=== PATIENT | female | born 2005 | race Caucasian/White ===

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

== ENCOUNTER 2024-01-28 10:20 | Outpatient (CLI) | payer MEDICAID, SELFPAY ==
[2024-01-28 11:10] VITALS: BP 114/69; PULSE 88; RESP 16; TEMP 36.5; O2SAT 98; BMI 27.4
[2024-01-28] MEDS: 0.9% Normal Saline (100mL Bag) 100 ML 15 ML IV (11:13)
[2024-01-28] MEDS: Sodium Ferric Gluconat/Sucrose 250 MG in 0.9% Normal Saline (250mL Bag) 250 ML 135 MG IV (11:13)
[2024-01-28] MEDS: 0.9% NaCl Peripheral Flush Adult/Peds IV (11:17)
[2024-01-28 14:04] VITALS: BP 123/69; PULSE 96; RESP 16; TEMP 36.4; O2SAT 97
== END 2024-01-28 23:59 | disposition home or self-care (01) ==
LOC: MEDOUTP 10:21
PROVIDERS: PCP Pediatrics; Referring Provider Nurse Practitioner; Visit Provider Nurse Practitioner
DX: O99.013 Anemia complicating pregnancy, third trimester (principal); D64.9 Anemia, unspecified; Z3A.00 Weeks of gestation of pregnancy not specified
CPT/HCPCS: 96365; 96366; J7050; A4216; J2916

== ENCOUNTER → 2024-02-01 | Outpatient (CLI) | payer MEDICAID, SELFPAY | END | disposition home or self-care (01) | LOC: LABSPEC 11:37 | PROVIDERS: PCP Pediatrics; Referring Provider Nurse Practitioner; Visit Provider Nurse Practitioner | DX: Z36.85 Encounter for antenatal screening for Streptococcus B (principal) | CPT/HCPCS: 87081 ==

== ENCOUNTER 2024-03-03 11:30 | Emergency (ER) | payer MEDICAID, SELFPAY ==
[2024-03-03 11:32] VITALS: BP 120/77; PULSE 94; RESP 16; TEMP 36.9; O2SAT 99
--- NOTE | 2024-03-03 12:33 | CT_ITS ---
STUDY: CT ABDOMEN AND PELVIS WITH CONTRAST REASON FOR EXAM: Female, 18 years old. Bloody discharge from site. RADIATION DOSAGE (If Supplied By Facility): CTDIvol = ( 11.6 ) mGy, DLP = ( 705.45 ) mGycm TECHNIQUE: Transaxial images were obtained from the dome of the diaphragm to the symphysis pubis without oral contrast. IV 100mL Isovue-370 was administered. Sagittal and coronal images were reconstructed. Individualized dose optimization techniques were used for this CT. COMPARISON: Comparison is made with prior study dated February 28, 2023. FINDINGS: The visualized lung bases are unremarkable. The visualized portions of the heart are within normal limits. Normal liver. Normal gallbladder and extrahepatic biliary system. Normal spleen. Normal pancreas. Normal bilateral adrenal glands. Normal right kidney. Normal left kidney. Normal visualized stomach. Normal small intestine. Normal colon. The appendix is visualized and appears normal. Normal abdominal aorta. Normal inferior vena cava. Normal retroperitoneum. Normal urinary bladder. Heterogeneous enlargement of the uterus in keeping with recent delivery. Postoperative changes are seen in the subcutaneous tissues underlying the lower anterior abdominal wall incision site. Tiny air bubbles are seen within the soft tissues in keeping with recent surgery. There is evidence of a 1.2 cm x 1.6 cm x 2.3 cm tiny fluid collection in the right side of the incision. There is also evidence of a increased markings in the subcutaneous fat. Normal osseous structures. CT/Abdomen/Pelvis W IV Cont ONLY IMPRESSION: Status post lower anterior abdominal wall with evidence of a tiny fluid collection along the right side of the incision with the overlying skin thickening and increased markings in the subcutaneous fat with tiny air bubbles. Heterogeneous enlargement of the uterus in keeping with recent delivery. Electronically Signed: Armando Nair MD at 13:23 EDT ,
--- NOTE | 2024-03-03 12:34 | EDS_ITS ---
HPI History of Present Illness Chief Complaint: Wound Check Informant: patient Narrative Narrative: Patient is a 18-year-old female with history of insulin-dependent diabetes mellitus who is 11 days status post presenting for bleeding and draining from incision site. Patient states she delivered at [facility] and followed with maternal medicine here at [facility]. She does not know the person who actually did her . She notes that she had a fever 2 days ago but had none since. She denies any abnormal vaginal bleeding (states is expected amount) or discharge. Denies any urinary symptoms. Denies any nausea, vomiting, lightheadedness or dizziness. Is doing a mixture of pumping and formula supplementation. Her significant other called 911 because of drainage from her incision site today. She knows she has some tenderness at the area as well. No other complaints or concerns at this time. [facility] Medical History POTS (postural orthostatic tachycardia syndrome) Type 1 diabetes mellitus Anxiety Home Medications ?Medication ?Instructions ?Recorded ?Last Taken ?Type aspirin 81 mg tablet,delayed 81 mg PO DAILY 12/09/23 Unknown History release glucagon 3 mg/actuation nasal 3 mg intranasal DAILY PRN 12/09/23 Unknown History spray (Baqsimi) hypoglycemia insulin lispro 100 unit/mL 0 - 50 unit subcut DAILY 12/09/23 Unknown History subcutaneous pen insulin lispro 100 unit/mL 0 - 67 unit subcut UD 12/09/23 Unknown History subcutaneous solution (Humalog U-100 Insulin) insulin pump cart,automated,BT 01/28/24 Unknown History (Omnipod 5 G6 Pods (Gen 5) subcutaneous cartridge) ferrous sulfate 325 mg (65 mg 325 mg PO DAILY 03/03/24 Unknown History iron) tablet (FeroSul) ibuprofen 600 mg tablet 600 mg PO Q6H PRN PRN fever or pain 03/03/24 Unknown History nifedipine 30 mg tablet,extended 60 mg PO QHS 03/03/24 Unknown History release 24 hr oxycodone 5 mg tablet 5 mg PO Q8H PRN pain 2 days #5 tabs 03/03/24 Unknown Rx sulfamethoxazole 800 1 tab PO BID 7 days #14 tabs 03/03/24 Unknown Rx mg-trimethoprim 160 mg tablet (Bactrim DS) Allergy/AdvReac Type Severity Reaction Status Date / Time No Known Allergies Allergy Verified 03/03/24 11:31 Social History Smoking Status: Never smoker substance use type: does not use ROS ROS ED Constitutional Constitutional ED: Reports fever(s); Denies chills Gastrointestinal Gastrointestinal: Reports abdominal pain; Denies nausea or vomiting Genitourinary Genitourinary ED: Denies dysuria or hematuria Musculoskeletal Musculoskeletal: Denies arthralgias or myalgias Integumentary Reports other Details: surgical wound with drainage - C Section Neurologic Neurologic: Denies headache(s) Hematologic/Lymphatic Hematologic/Lymphatic: Denies easy bleeding or easy bruising EXAM Physical Exam Const Vital Signs: 03/03/24 11:32 03/03/24 13:14 Temperature 98.5 F 98.2 F Temperature Source Oral Oral Pulse Rate 94 86 Respiratory Rate 16 18 Blood Pressure 120/77 118/77 Blood Pressure Mean 91 90 Pulse Ox 99 99 Oxygen Delivery Method Room Air Room Air Positive well nourished and well developed General Appearance ED: well developed and NAD HEENT Reports moist mucous membranes Eyes PERRL Neck supple Chest Wall inspection of chest normal Resp normal respiratory effort Cardio regular rate and regular rhythm GI non-distended GI Narrative: Fundus is below the level of the umbilicus. No significant tenderness of the upper abdomen or lower abdomen but does have tenderness to palpation of her pelvic area over her incision. Extremity normal to inspection General Extremety ED: Negative for edema General Extremity: Negative for edema Neuro oriented x3 Sensorium / Orientation: alert Motor Exam: Negative for general weakness Psych mental status grossly normal Skin Skin Narrative: Low transverse surgical incision consistent with recent . Patient has persistent serosanguineous drainage coming from the incision just to the left of midline. There are some mild associated tenderness to palpation and some mild erythema of the wound edges. Steri-Strips are still in place. No obvious dehiscence appreciated. No significant fluid collection/fluctuance appreciated elbow patient does have some suprapubic ecchymosis present. No associated lymphangitic streaking. MDM MDM MDM Narrative Medical decision making narrative: Patient evaluated for pain and drainage from her incision site. She is 11 days status post . She is increased risk of surgical site infection due to her history of type 1 diabetes mellitus. Differential includes surgical site infection, seroma and abscess. Will obtain basic blood work and a CT of the abdomen pelvis. Will culture the fluid. Patient is a very mild leukocytosis of 11.2 which is nonspecific given her recent surgery and childbirth. CMP is largely normal. CT of the abdomen pelvis is consistent with recent with a tiny fluid collection along the right side of the incision with overlying skin thickening and increased marking the subcutaneous fat and tiny air bubbles. Patient reevaluated continues to have pain with palpation of her incision site but does not have any further drainage. She initially requested Motrin and then requested something stronger for her pain. Is given oxycodone she states she recently ran out from after her C- section. I spoke with maternal medicine nurse practitioner, Christelle Morton, is quite familiar with the patient. She states she has appointment to see her this coming Thursday. She is agreeable with me starting the patient on Bactrim in case she does have infection however also discussed that this likely could just be a seroma that ruptured. Patient is given first dose of Bactrim in the emergency room. Will be placed on a course of Bactrim to cover for MRSA. Given return precautions such as developing purulent drainage, fever or worsening pain. Will be given a short course of oxycodone for pain control. Patient significant other agreeable with plan of care. Discussed the importance of keeping up her nutrition and fluid intake given that she is and breast-feeding. While in the ER patient did start feeling her blood sugars dropping. Her continuous glucose monitor read 60. Patient was given apple juice and then food which she tolerated well and had improvement of her symptoms and blood sugar. Lab Data Attestation: I reviewed the patient's lab results. Labs: Laboratory Results - last 24 hr 03/03/24 11:40 WBC 11.2 H RBC 4.22 Hgb 10.6 L Hct 36.1 L MCV 85.5 MCH 25.1 L MCHC 29.4 L RDW Std Deviation 72.5 H RDW Coeff of Elizabeth 23.6 H Plt Count 328 MPV 11.7 Immature Gran % (Auto) 3.300 H Neut % (Auto) 75.3 H Lymph % (Auto) 11.2 L Swisher % (Auto) 8.6 Eos % (Auto) 1.2 Baso % (Auto) 0.4 Absolute Neuts (auto) 8.5 H Absolute Lymphs (auto) 1.26 Nucleated RBC % 0 Differential Comment SCANNED Platelet Estimate ADEQUATE Plt Morphology Comment LARGE Anisocytosis 3+ Microcytosis 1+ Macrocytosis 1+ Sodium 139 Potassium 3.4 L Chloride 108 H Carbon Dioxide 23.0 Anion Gap 8 BUN 17 Creatinine 0.49 L Est GFR (MDRD) Af Amer 208 Est GFR (MDRD) Non-Af 172 BUN/Creatinine Ratio 34.6 H Glucose 102 Calcium 9.9 Total Bilirubin 0.80 AST 20 ALT 21 Alkaline Phosphatase 149 H Total Protein 8.0 Albumin 2.8 L Globulin 5.2 H Albumin/Globulin Ratio 0.5 L Radiography Diagnostic Testing: Clinical Impression(s) from Imaging Studies Abdomen/Pelvis CT 03/03/24 12:33 IMPRESSION: Status post lower anterior abdominal wall with evidence of a tiny fluid collection along the right side of the incision with the overlying skin thickening and increased markings in the subcutaneous fat with tiny air bubbles. Heterogeneous enlargement of the uterus in keeping with recent delivery. Electronically Signed: Armando Nair MD at 13:23 EDT , Discharge Plan Triage Chief Complaint: Wound Check ED Provider: Anjelica Smith Dx/Rx/DC Orders Clinical Impression: Seroma after procedure, Postoperative abdominal pain Instructions: ED Post Op Wound Check, General, ED Seroma, Postsurgical Prescriptions: New sulfamethoxazole-trimethoprim [Bactrim DS] 800-160 mg tablet 1 tab PO BID 7 Days Qty: 14 0RF oxycodone 5 mg tablet 5 mg PO Q8H PRN (Reason: pain) 2 Days Qty: 5 0RF No Action ferrous sulfate [FeroSul] 325 mg (65 mg iron) tablet 325 mg PO DAILY ibuprofen 600 mg tablet 600 mg PO Q6H PRN PRN (Reason: fever or pain) nifedipine 30 mg tablet extended release 24hr 60 mg PO QHS aspirin 81 mg tablet,delayed release (DR/EC) 81 mg PO DAILY Baqsimi 3 mg/actuation spray,non-aerosol 3 mg INTRANASAL DAILY PRN (Reason: hypoglycemia) Patient Comments: [NO ORIGINAL SIG] insulin lispro [Humalog U-100 Insulin] 100 unit/mL solution 0 - 67 unit subcut UD insulin lispro 100 unit/mL insulin pen 0 - 50 unit subcut DAILY (DME) Omnipod 5 G6 Pods (Gen 5) Cartridge subcut Q3D Primary Care Provider: Dian Velez Referrals: Dian Velez MD [Primary Care Provider] - TAB SIMON NP-C [Non-Staff] - Keep Ale appointment Activity Restrictions/Additional Instructions: If you develop fevers again, have purulent drainage (puslike) or have worsening pain please return the emergency room. Print Language: Sudanese Disposition Disposition: Home, Self Care
[2024-03-03 12:49] LABS: Absolute Lymphocyte Count 1.26 X10^3/uL (0.83-4.51); Absolute Neutrophil Count 8.5 X10^3/uL (2.0-7.7); Basophil# 0.04 X10^3/uL; Basophil% 0.4 % (0-1); Eosinophil# 0.13 X10^3/uL; Eosinophils% 1.2 % (0-5); Hematocrit 36.1 % (37-47); Hemoglobin 10.6 g/dL (12.0-15.0); Lymphocyte # 1.26 X10^3/ul (0.83-4.51); Lymphocyte % 11.2 % (19-41); Mean Corp Hgb Conc 29.4 g/dL (32-36); Mean Corpuscular Hgb 25.1 pg (27.0-32.0); Mean Corpuscular Volume 85.5 fL (81-99); Mean Platelet Vol. 11.7 fl (6.2-12.0); Monocyte# 0.96 X10^3/uL; Monocyte% 8.6 % (0-10); NRBC Flagged by Analyzer 0 % (0-5); Neutrophil # 8.46 X10^3/uL (2.7-7.7); Neutrophil % 75.3 % (47-70); POSITIVE MORPHOLOGY YES; Platelet Count 328 K/mm3 (150-450); RBC Distribution Width CV 23.6 % (11.6-14.6); RBC Distribution Width SD 72.5 fl (35.1-43.9); Red Blood Count 4.22 M/mm3 (4.2-5.4); White Blood Count 11.2 K/mm3 (4.4-11.0)
[2024-03-03 12:53] LABS: ALB/GLOB Ratio 0.5 RATIO (0.9-2.4); AST(SGOT) 20 U/L (15-37); Alanine Aminotransfer ALT/SGPT 21 U/L (13-56); Albumin, Serum 2.8 g/dL (3.2-5.0); Alkaline Phosphatase 149 U/L (45-117); Anion Gap 8 (5-15); BUN 17 mg/dL (7-18); BUN/Creat Ratio 34.6 RATIO (10-20); Calcium,Total 9.9 mg/dL (8.5-10.1); Chloride 108 mmol/L (98-107); Creatinine, Serum 0.49 mg/dL (0.55-1.02); EST Glomerular Filtration Rate 172 mL/min (>60); Est Glom Filt Rate - Afr Amer 208 mL/min (>60); Globulin 5.2 g/dL (2.2-4.2); Glucose 102 mg/dL (74-106); Potassium 3.4 mmol/L (3.5-5.1); Sodium Level 139 mmol/L (136-145)
[2024-03-03 13:01] LABS: Differential Indicated SCAN CRITERIA MET
[2024-03-03 13:14] VITALS: BP 118/77; PULSE 86; RESP 18; TEMP 36.8; O2SAT 99
[2024-03-03] MEDS: Ibuprofen 600 MG Tablet PO (13:35)
[2024-03-03 14:23] LABS: Anisocytosis 3+; Differential Comment SCANNED; Platelet Estimate ADEQUATE (ADEQ)
[2024-03-03 14:24] LABS: Macrocytosis 1+; Microcytosis 1+; Platelet Morphology LARGE
--- NOTE | 2024-03-03 14:27 | ED.RN ---
meal tray from dietary given to patient.
[2024-03-03] MEDS: Smz/Tmp Ds Tablet 1 TABLET PO (14:46)
[2024-03-03] MEDS: oxyCODONE 5 MG Tablet PO (14:50)
--- NOTE | 2024-03-03 15:09 | ED.RN ---
dressing changed to surgical incision and pt sent with extra supplies
[2024-03-03 15:10] VITALS: BP 118/82; PULSE 79; RESP 16; TEMP 36.8; O2SAT 98
== END 2024-03-03 15:26 | disposition home or self-care (01) ==
PROVIDERS: Emergency Provider Emergency Medicine; PCP Pediatrics; Referring Provider Emergency Medicine; Visit Provider Emergency Medicine
DX: L76.32 Postprocedural hematoma of skin and subcutaneous tissue following other procedure (principal); E10.9 Type 1 diabetes mellitus without complications; G89.18 Other acute postprocedural pain; R10.9 Unspecified abdominal pain; Z79.82 Long term (current) use of aspirin
CPT/HCPCS: 74177; 80053; 85025; 87070; 87077; 87186; 87205; 99284; Q9967; A4216

== ENCOUNTER 2024-03-05 11:14 | Emergency (ER) | payer MEDICAID, SELFPAY ==
[2024-03-05 11:15] VITALS: BP 115/76; PULSE 105; RESP 16; TEMP 36.1; O2SAT 98; BMI 24.4
--- NOTE | 2024-03-05 11:32 | EX.ED.DYSGE1 ---
HPI History of Present Illness Chief Complaint: Wound Check Informant: patient and spouse/S.O. Onset/Context/Timing Onset: Days Context: Gradual Onset Timing: Continuous Current Severity: Mild Maximum Severity: Mild Narrative Narrative: 18-year-old female status post at [facility] 13 days ago. This was her first and . She has had some wound separation and a seroma. Was seen in the emergency department 2 days ago on started on Bactrim. She is appointment to see maternal- medicine physicians this coming week. Prior similar symptoms: Yes Recent Illness/Hospitalization: Yes [facility] Medical History POTS (postural orthostatic tachycardia syndrome) Type 1 diabetes mellitus Anxiety Home Medications ?Medication ?Instructions ?Recorded ?Last Taken ?Type aspirin 81 mg tablet,delayed 81 mg PO DAILY 12/09/23 Unknown History release glucagon 3 mg/actuation nasal 3 mg intranasal DAILY PRN 12/09/23 Unknown History spray (Baqsimi) hypoglycemia insulin lispro 100 unit/mL 0 - 50 unit subcut DAILY 12/09/23 Unknown History subcutaneous pen insulin lispro 100 unit/mL 0 - 67 unit subcut UD 12/09/23 Unknown History subcutaneous solution (Humalog U-100 Insulin) insulin pump cart,automated,BT 01/28/24 Unknown History (Omnipod 5 G6 Pods (Gen 5) subcutaneous cartridge) ferrous sulfate 325 mg (65 mg 325 mg PO DAILY 03/03/24 Unknown History iron) tablet (FeroSul) ibuprofen 600 mg tablet 600 mg PO Q6H PRN PRN fever or pain 03/03/24 Unknown History nifedipine 30 mg tablet,extended 60 mg PO QHS 03/03/24 Unknown History release 24 hr oxycodone 5 mg tablet 5 mg PO Q8H PRN pain 2 days #5 tabs 03/03/24 Unknown Rx sulfamethoxazole 800 1 tab PO BID 7 days #14 tabs 03/03/24 Unknown Rx mg-trimethoprim 160 mg tablet (Bactrim DS) Allergy/AdvReac Type Severity Reaction Status Date / Time No Known Allergies Allergy Verified 03/03/24 11:31 Social History Smoking Status: Never smoker substance use type: does not use ROS ROS ED ROS Narrative Denies any recent illness. Constitutional Constitutional ED: Denies fever(s) Eyes Eyes: Denies blurry vision ENT ENT ED: Denies ear pain Cardiovascular Cardiovascular: Denies chest pain Respiratory/Chest Respiratory/Chest: Denies cough Gastrointestinal Gastrointestinal: Reports other Details: Pain at the incision site. ; Denies abdominal pain Genitourinary Genitourinary ED: Denies dysuria Musculoskeletal Musculoskeletal: Denies arthralgias Integumentary Denies abscess Neurologic Neurologic: Denies headache(s) Psychiatric Psychiatric: Denies anxiety Endocrine Endocrinology: Denies cold intolerance Hematologic/Lymphatic Hematologic/Lymphatic: Reports none Allergic/Immunologic Allergic/Immunologic ED: Denies mouth swelling or tongue swelling EXAM Physical Exam Narrative Exam Narrative: Well-appearing 18-year-old female. Vital signs are stable afebrile. H EENT exam unremarkable. Lungs clear. Heart regular rhythm. Abdomen is soft. She has a low-lying horizontal Pfannenstiel incision. There is minimal drainage currently. It is serous. Currently there is no bleeding. There is no cellulitis. There is no pus. She has normal tenderness around the wound. She has a minor wound separation on the left hand third of the wound. Steri-Strips are in place. Moving all 4 extremities. Nontender no edema. She is awake and alert. Const Vital Signs: 03/05/24 11:15 Temperature 96.9 F L Temperature Source Temporal Pulse Rate 105 H Respiratory Rate 16 Blood Pressure 115/76 Blood Pressure Mean 89 Pulse Ox 98 Oxygen Delivery Method Room Air Positive well nourished and well developed; Negative for obese, cachectic, contractures or unkempt General Appearance ED: well developed and NAD; Negative for unkempt, cachectic, contractures, cyanotic or diaphoretic Nutritional Appearance: Negative for cachectic or obese HEENT Reports moist mucous membranes Negative for trauma or tenderness Eyes PERRL and EOMs intact bilaterally General Eye ED: Negative for pale conjunctiva or scleral icterus Neck no lymphadenopathy, supple and no JVD General: Negative for tenderness Chest Wall inspection of chest normal and palpation of chest normal Resp normal respiratory effort and clear to auscultation bilaterally Cardio regular rate, regular rhythm, S1 normal heart sound, S2 normal heart sound and no murmurs GI normal to inspection, nondistended, normoactive bowel sounds, non-distended and no masses; Negative for non-tender GI Narrative: Tenderness along the site normal postop. Minimal wound separation on the left-hand side. No cellulitis. No pus. Auscultation: normoactive bowel sounds Palpation: soft and tender; Negative for guarding, mass or rebound tenderness present Back/Spine no CVA tenderness Extremity normal to inspection General Extremety ED: Negative for edema or tenderness General Extremity: Negative for edema Neuro oriented x3 and CN's II-XII intact bilaterally Sensorium / Orientation: alert; Negative for orientation impaired, lethargic or stuporous Motor Exam: strength 5/5 throughout Psych mental status grossly normal Appearance: Negative for unkempt Attitude: No agitated Mood & Affect: Negative for depressed or tearful Skin no rashes or lesions noted and skin turgor normal Skin Narrative: Surgical wound healing appropriately. Minor wound separation on the left-hand side. Rashes: No rashes noted MDM MDM MDM Narrative Medical decision making narrative: 89-year-old female status post 13 days ago. Developed a seroma. Minor wound separation. Wound does not look infected. History & Record Review Discussion w/independent historian: Patient and Family Additional record(s) reviewed:: Prior inpatient record, Prior outpatient record and Prior ED visit Discharge Plan Triage Chief Complaint: Wound Check ED Provider: Jd Barrios Dx/Rx/DC Orders Clinical Impression: Encounter for post surgical wound check, Separation of wound with drainage, Instructions: ED Post Op Wound Check, General Prescriptions: No Action ferrous sulfate [FeroSul] 325 mg (65 mg iron) tablet 325 mg PO DAILY ibuprofen 600 mg tablet 600 mg PO Q6H PRN PRN (Reason: fever or pain) nifedipine 30 mg tablet extended release 24hr 60 mg PO QHS sulfamethoxazole-trimethoprim [Bactrim DS] 800-160 mg tablet 1 tab PO BID 7 Days Qty: 14 0RF oxycodone 5 mg tablet 5 mg PO Q8H PRN (Reason: pain) 2 Days Qty: 5 0RF aspirin 81 mg tablet,delayed release (DR/EC) 81 mg PO DAILY Baqsimi 3 mg/actuation spray,non-aerosol 3 mg INTRANASAL DAILY PRN (Reason: hypoglycemia) Patient Comments: [NO ORIGINAL SIG] insulin lispro [Humalog U-100 Insulin] 100 unit/mL solution 0 - 67 unit subcut UD insulin lispro 100 unit/mL insulin pen 0 - 50 unit subcut DAILY (DME) Omnipod 5 G6 Pods (Gen 5) Cartridge subcut Q3D Primary Care Provider: Dian Velez Referrals: Dian Velez MD [Primary Care Provider] - Activity Restrictions/Additional Instructions: Follow-up with your [facility] physicians with your scheduled appointment this week. Keep the area dry and clean. Shower do not bathe and let it soak in dirty water. Clean daily with soap and water or peroxide and water. Dry thoroughly. Return if fever or significant redness around the site. Currently looks good. You have a wound separation on the left-hand side. That should heal. The drainage should resolve as the seroma is resolving. Print Language: Congolese Disposition Disposition: Home, Self Care
[2024-03-05 11:34] VITALS: BP 118/84; PULSE 81; RESP 17; TEMP 36.5; O2SAT 98
== END 2024-03-05 11:42 | disposition home or self-care (01) ==
PROVIDERS: Emergency Provider Emergency Medicine; PCP Pediatrics; Visit Provider Emergency Medicine
DX: Z48.01 Encounter for change or removal of surgical wound dressing (principal); E10.9 Type 1 diabetes mellitus without complications; Z51.89 Encounter for other specified aftercare
CPT/HCPCS: 99282

== ENCOUNTER 2024-06-24 18:33 | Emergency (ER) | payer MEDICAID, SELFPAY ==
[2024-06-24 18:34] VITALS: BP 125/88; PULSE 122; RESP 16; TEMP 36.7; O2SAT 100; BMI 25.1
[2024-06-24 18:37] VITALS: BP 125/88; PULSE 122; RESP 16; TEMP 36.7; O2SAT 98
--- NOTE | 2024-06-24 19:22 | EX.ED.DYSGE1 ---
HPI <SYDNEE Worthington - Last Filed: 06/24/24 21:28> History of Present Illness Chief Complaint: Cold Sx Narrative Narrative: Patient is a 18-year-old female with no significant medical history presents to the emergency department with complaints of cough, congestion some with sore throat, nausea and vomitings been ongoing for the last 2 days. Patient states that her child at home had similar symptoms. Patient today, she felt more weak, dizzy and is here for evaluation. Patient does have a cough that is dry. PFSH <SYDNEE Worthington - Last Filed: 06/24/24 21:28> [facility] Medical History POTS (postural orthostatic tachycardia syndrome) Type 1 diabetes mellitus Anxiety Home Medications ?Medication ?Instructions ?Recorded ?Last Taken ?Type aspirin 81 mg tablet,delayed 81 mg PO DAILY 12/09/23 Unknown History release glucagon 3 mg/actuation nasal 3 mg intranasal DAILY PRN 12/09/23 Unknown History spray (Baqsimi) hypoglycemia insulin lispro 100 unit/mL 0 - 50 unit subcut DAILY 12/09/23 Unknown History subcutaneous pen insulin lispro 100 unit/mL 0 - 67 unit subcut UD 12/09/23 Unknown History subcutaneous solution (Humalog U-100 Insulin) insulin pump cart,automated,BT 01/28/24 Unknown History (Omnipod 5 G6 Pods (Gen 5) subcutaneous cartridge) ferrous sulfate 325 mg (65 mg 325 mg PO DAILY 03/03/24 Unknown History iron) tablet (FeroSul) ibuprofen 600 mg tablet 600 mg PO Q6H PRN PRN fever or pain 03/03/24 Unknown History nifedipine 30 mg tablet,extended 60 mg PO QHS 03/03/24 Unknown History release 24 hr oxycodone 5 mg tablet 5 mg PO Q8H PRN pain 2 days #5 tabs 03/03/24 Unknown Rx sulfamethoxazole 800 1 tab PO BID 7 days #14 tabs 03/03/24 Unknown Rx mg-trimethoprim 160 mg tablet (Bactrim DS) ondansetron 4 mg disintegrating 4 mg PO Q8H PRN PRN Nausea #10 tabs 06/24/24 Unknown Rx tablet Allergy/AdvReac Type Severity Reaction Status Date / Time ketorolac (From Toradol) Allergy Mild Hives Verified 06/24/24 20:42 Social History Smoking Status: Current some day smoker tobacco type: e-cigarettes substance use type: does not use ROS <SYDNEE Worthington - Last Filed: 06/24/24 21:28> ROS ED ROS Narrative Constitutional: Negative for weight loss, weakness. Positive fever and chills Eyes: Negative for vision loss, vision change, double vision ENT: Negative for any sore throat, ear pain, congestion Cardiovascular: Negative for any chest pain, tightness, palpitations Respiratory: Negative for any sputum production, hemoptysis, dyspnea, dyspnea on exertion, orthopnea. Positive for cough Gastrointestinal: Negative for any abdominal pain, diarrhea, constipation, blood in stool, blood in vomit. Positive for nausea and vomiting : Negative for any urinary frequency, dysuria, retention, blood in urine Muscle skeletal: Negative for any neck pain, back pain Neurological: Negative for any syncope, dizziness. Positive headache Skin: Negative for any rashes, itching, abrasions, lacerations Psychiatric: Negative for any depression, anxiety, stress, suicidal ideation, homicidal ideation Hematologic: Negative for any excessive bruising, easy bleeding EXAM <SYDNEE Worthington - Last Filed: 06/24/24 21:28> Physical Exam Narrative Exam Narrative: Vital signs reviewed. HEET: Head normocephalic atraumatic, TMs clear bilaterally. Posterior pharynx is clear, moist mucous membranes. Nares clear bilaterally. Neck: Supple with no lymphadenopathy or tenderness. No signs of meningismus. Cardiac: Regular rate and rhythm no murmurs gallops or rubs, equal peripheral pulses bilaterally. Respiratory: Tachycardic rate,. No chest tenderness. Abdomen: Soft, nontender, nondistended. No abdominal bruit or pulsatile masses. No hepatosplenomegaly Extremities: No peripheral edema, no signs of gross trauma or deformity. Active full range of motion of all extremities. Neuro: Cranial nerves II through XII intact, no focal neurological deficits. Skin: Clean dry and intact with no rash, purpura, petechiae, vesicles or pustules. Backs/flank: No CVA tenderness, no midline spinal tenderness, no deformity. Psych: Normal mood and affect. No SI, HI or acute psychosis. Const Vital Signs: 06/24/24 18:34 06/24/24 18:34 06/24/24 18:37 Temperature 98.1 F 98.1 F Temperature Source Oral Oral Pulse Rate 122 H 122 H Respiratory Rate 16 16 Respiratory Effort Normal Non-Labored Respiratory Pattern Normal Blood Pressure 125/88 H 125/88 H Blood Pressure Mean 100 100 Pulse Ox 100 98 Oxygen Delivery Method Room Air Room Air 06/24/24 20:34 06/24/24 21:39 Temperature 98 F Temperature Source Pulse Rate 104 H 89 Respiratory Rate 18 17 Respiratory Effort Respiratory Pattern Blood Pressure 121/74 H Blood Pressure Mean 89 Pulse Ox 99 Oxygen Delivery Method Positive well nourished and well developed General Appearance ED: well developed <Dr. Alvarez Nguyen DO - Last Filed: 06/25/24 01:27> Physical Exam Const Vital Signs: 06/24/24 18:34 06/24/24 18:34 06/24/24 18:37 Temperature 98.1 F 98.1 F Temperature Source Oral Oral Pulse Rate 122 H 122 H Respiratory Rate 16 16 Respiratory Effort Normal Non-Labored Respiratory Pattern Normal Blood Pressure 125/88 H 125/88 H Blood Pressure Mean 100 100 Pulse Ox 100 98 Oxygen Delivery Method Room Air Room Air 06/24/24 20:34 06/24/24 21:39 Temperature 98 F Temperature Source Pulse Rate 104 H 89 Respiratory Rate 18 17 Respiratory Effort Respiratory Pattern Blood Pressure 121/74 H Blood Pressure Mean 89 Pulse Ox 99 Oxygen Delivery Method MDM <SYDNEE Worthington - Last Filed: 06/24/24 21:28> MDM Radiography Diagnostic Testing: Clinical Impression(s) from Imaging Studies Chest X-Ray 06/24/24 20:25 IMPRESSION: No radiographic evidence of acute cardiopulmonary disease. Electronically Signed: Peterson Lewis MD at 21:58 EST , Treatment and Re-Evaluation :: Differential diagnosis includes however is not limited to: COVID-19, influenza, RSV, strep throat, community-acquired pneumonia MDM presenting to the [facility] apartment for complaints of cough, congestion, nausea and vomiting. Patient on my examination does not appear dry. Patient will be given Tylenol, or IM Toradol, Zofran. Patient be given a chest x-ray, COVID-19 influenza, RSV, rapid strep swab. Patient's chest x-ray was unremarkable. Patient's COVID-19 influenza RSV as well as strep was negative. Patient responded well to medications here. At this time, patient's vital signs are stable she will be diagnosed with a viral syndrome. She will be given Zofran for home. She instructed to maintain her hydration, advance her diet as tolerated. She was given strict return precaution. Stable for discharge <Dr. Alvarez Nguyen, DO - Last Filed: 06/25/24 01:27> MDM Radiography Diagnostic Testing: Clinical Impression(s) from Imaging Studies Chest X-Ray 06/24/24 20:25 IMPRESSION: No radiographic evidence of acute cardiopulmonary disease. Electronically Signed: Peterson Lewis MD at 21:58 EST , Treatment and Re-Evaluation :: Differential diagnosis includes however is not limited to: COVID-19, influenza, RSV, strep throat, community-acquired pneumonia MDM presenting to the [facility] apartment for complaints of cough, congestion, nausea and vomiting. Patient on my examination does not appear dry. Patient will be given Tylenol, or IM Toradol, Zofran. Patient be given a chest x-ray, COVID-19 influenza, RSV, rapid strep swab. Patient's chest x-ray was unremarkable. Patient's COVID-19 influenza RSV as well as strep was negative. Patient responded well to medications here. At this time, patient's vital signs are stable (heart rate improved from 122-89 without intervention) she will be diagnosed with a viral syndrome. She will be given Zofran for home. She instructed to maintain her hydration, advance her diet as tolerated. She was given strict return precaution. Stable for discharge ED attending note: I evaluated the patient in conjunction with the [facility]. I agree with his/her statements and above findings. I have personally performed a face to face assessment of the patient and have reviewed the [facility] Note. I performed a substantive portion of the visit including all aspects of the following. I personally saw the patient performed chart review, physical exam, reviewed labs, imaging (if obtained), and formulated a treatment and management plan. This note was generated with [email or web address] dictation software. It may contain incorrect words, spelling, and punctuation that were not noted in review of the chart prior to signing. Discharge Plan Triage Chief Complaint: Cold Sx Other Complaint: Hyperglycemia ED Midlevel Provider: Alverto Madrigal ED Provider: Alvarez Nguyen Dx/Rx/DC Orders Clinical Impression: Viral syndrome Instructions: ED Viral Syndrome (Adult) Prescriptions: New ondansetron 4 mg tablet,disintegrating 4 mg PO Q8H PRN PRN (Reason: Nausea) Qty: 10 0RF No Action ferrous sulfate [FeroSul] 325 mg (65 mg iron) tablet 325 mg PO DAILY ibuprofen 600 mg tablet 600 mg PO Q6H PRN PRN (Reason: fever or pain) nifedipine 30 mg tablet extended release 24hr 60 mg PO QHS sulfamethoxazole-trimethoprim [Bactrim DS] 800-160 mg tablet 1 tab PO BID 7 Days Qty: 14 0RF oxycodone 5 mg tablet 5 mg PO Q8H PRN (Reason: pain) 2 Days Qty: 5 0RF aspirin 81 mg tablet,delayed release (DR/EC) 81 mg PO DAILY Baqsimi 3 mg/actuation spray,non-aerosol 3 mg INTRANASAL DAILY PRN (Reason: hypoglycemia) Patient Comments: [NO ORIGINAL SIG] insulin lispro [Humalog U-100 Insulin] 100 unit/mL solution 0 - 67 unit subcut UD insulin lispro 100 unit/mL insulin pen 0 - 50 unit subcut DAILY (DME) Omnipod 5 G6 Pods (Gen 5) Cartridge subcut Q3D Primary Care Provider: Dian Velez Referrals: Dian Velez MD [Primary Care Provider] - Activity Restrictions/Additional Instructions: Please advance her diet as tolerated Print Language: Citizen [place] Disposition Disposition: Home, Self Care Discharge Date/Time: 06/24/24 21:40
[2024-06-24] MEDS: Ketorolac 15 MG/ML Vial IM (20:02)
[2024-06-24] MEDS: Ondansetron ODT 4 MG Tablet 8 MG PO (20:03)
[2024-06-24] MEDS: Acetaminophen 500 MG Tablet 1000 MG PO (20:03)
[2024-06-24] MEDS: DiphenhydrAMINE 25 MG Capsule 50 MG PO (20:21)
--- NOTE | 2024-06-24 20:25 | RAD_ITS ---
EXAM: XR CHEST, 2 VIEWS CLINICAL INDICATION: cough TECHNIQUE: Frontal and lateral views of the chest. COMPARISON: 01/21/23 FINDINGS: LUNGS AND PLEURAL SPACES: Unremarkable. No consolidation or edema. No pneumothorax. No effusion. HEART: Unremarkable. Cardiac silhouette not enlarged. MEDIASTINUM: Central airways and mediastinal contour are unremarkable. BONES/JOINTS: Unremarkable. No acute fracture. SOFT TISSUES: Unremarkable. RAD/Chest PA and Lateral IMPRESSION: No radiographic evidence of acute cardiopulmonary disease. Electronically Signed: Peterson Lewis MD at 21:58 EST ,
[2024-06-24 20:34] VITALS: PULSE 104; RESP 18
[2024-06-24 21:39] VITALS: BP 121/74; PULSE 89; RESP 17; TEMP 36.6; O2SAT 99
== END 2024-06-24 21:40 | disposition home or self-care (01) ==
PROVIDERS: Emergency Provider Emergency Medicine; PCP Pediatrics; Visit Provider Emergency Medicine
DX: B34.9 Viral infection, unspecified (principal); E10.65 Type 1 diabetes mellitus with hyperglycemia; Z79.4 Long term (current) use of insulin; R09.81 Nasal congestion; R05.9 Cough, unspecified; R11.2 Nausea with vomiting, unspecified; G90.A Postural orthostatic tachycardia syndrome [POTS]; F17.210 Nicotine dependence, cigarettes, uncomplicated; Z79.82 Long term (current) use of aspirin; Z79.899 Other long term (current) drug therapy
CPT/HCPCS: 71046; 87631; 87651; 96372; 99283

== ENCOUNTER 2024-07-03 16:53 | Emergency (ER) | payer MEDICAID, SELFPAY ==
[2024-07-03 16:55] VITALS: BP 120/72; PULSE 95; RESP 16; TEMP 36.7; O2SAT 100; BMI 25.0
--- NOTE | 2024-07-03 17:22 | EDS_ITS ---
HPI <SYDNEE Worthington - Last Filed: 07/03/24 21:13> History of Present Illness Chief Complaint: Abd Pain Narrative Narrative: Patient is a 18-year-old female with history of type 1 diabetes presenting to the emergency department with complaints of epigastric pain nausea that is been ongoing for greater than 1 week. Patient states that she feels a gnawing sensation in her stomach that is worse in the morning and when she was the bed, she also has increasing pain when she is eating. She states she has tried Tums with no relief. She has not seen a specialist for this. She denies any specific vomiting however does have nausea. Patient dates she has diarrhea however this is chronic. PFSH <SYDNEE Worthington - Last Filed: 07/03/24 21:13> PFSH Medical History POTS (postural orthostatic tachycardia syndrome) Type 1 diabetes mellitus Anxiety Home Medications ?Medication ?Instructions ?Recorded ?Last Taken ?Type insulin lispro 100 unit/mL 0 - 50 unit subcut DAILY 12/09/23 Unknown History subcutaneous pen insulin lispro 100 unit/mL 0 - 67 unit subcut UD 12/09/23 Unknown History subcutaneous solution (Humalog U-100 Insulin) insulin pump cart,automated,BT 01/28/24 Unknown History (Omnipod 5 G6 Pods (Gen 5) subcutaneous cartridge) nifedipine 30 mg tablet,extended 60 mg PO QHS 03/03/24 Unknown History release 24 hr drospirenone 3 mg-ethinyl 1 tab PO DAILY 07/03/24 Unknown History estradiol 0.03 mg tablet omeprazole 40 mg capsule,delayed 40 mg PO DAILY #30 caps 07/03/24 Unknown Rx release sucralfate 1 gram tablet (Carafate) 1 g PO TID #21 tabs 07/03/24 Unknown Rx Allergy/AdvReac Type Severity Reaction Status Date / Time ketorolac (From Toradol) Allergy Mild Hives Verified 07/03/24 16:55 Social History Smoking Status: Current some day smoker tobacco type: e-cigarettes substance use type: does not use ROS <SYDNEE Worthington - Last Filed: 07/03/24 21:13> ROS ED ROS Narrative Constitutional: Negative for fever, chills, weight loss, weakness Eyes: Negative for vision loss, vision change, double vision ENT: Negative for any sore throat, ear pain, congestion Cardiovascular: Negative for any chest pain, tightness, palpitations Respiratory: Negative for any cough, sputum production, hemoptysis, dyspnea, dyspnea on exertion, orthopnea Gastrointestinal: Negative for any vomiting, diarrhea, constipation, blood in stool, blood in vomit. Positive for abdominal pain, epigastric pain : Negative for any urinary frequency, dysuria, retention, blood in urine Muscle skeletal: Negative for any neck pain, back pain Neurological: Negative for any headache, syncope, dizziness Skin: Negative for any rashes, itching, abrasions, lacerations Psychiatric: Negative for any depression, anxiety, stress, suicidal ideation, homicidal ideation Hematologic: Negative for any excessive bruising, easy bleeding EXAM <SYDNEE Worthington - Last Filed: 07/03/24 21:13> Physical Exam Narrative Exam Narrative: Vital signs reviewed. HEET: Head normocephalic atraumatic, TMs clear bilaterally. Posterior pharynx is clear, moist mucous membranes. Nares clear bilaterally. Neck: Supple with no lymphadenopathy or tenderness. No signs of meningismus. Cardiac: Regular rate and rhythm no murmurs gallops or rubs, equal peripheral pulses bilaterally. Respiratory: Lungs clear to auscultation bilaterally. No chest tenderness. Abdomen: Soft nondistended. No abdominal bruit or pulsatile masses. No hepatosplenomegaly. Patient has pain on palpation epigastric, left upper abdomen, negative pain to the right upper quadrant, negative Lr sign. No pain along McBurney's point. No lower abdominal pain. Extremities: No peripheral edema, no signs of gross trauma or deformity. Active full range of motion of all extremities. Neuro: Cranial nerves II through XII intact, no focal neurological deficits. Skin: Clean dry and intact with no rash, purpura, petechiae, vesicles or pustules. Backs/flank: No CVA tenderness, no midline spinal tenderness, no deformity. Psych: Normal mood and affect. No SI, HI or acute psychosis. Const Vital Signs: 07/03/24 16:55 07/03/24 19:10 Temperature 98.1 F Temperature Source Oral Pulse Rate 95 85 Respiratory Rate 16 16 Blood Pressure 120/72 119/83 H Blood Pressure Mean 88 95 Pulse Ox 100 99 Oxygen Delivery Method Room Air Room Air Positive well nourished and well developed General Appearance ED: well developed <Dr. Jd Barrios MD - Last Filed: 07/03/24 18:34> Physical Exam Const Vital Signs: 07/03/24 16:55 07/03/24 19:10 Temperature 98.1 F Temperature Source Oral Pulse Rate 95 85 Respiratory Rate 16 16 Blood Pressure 120/72 119/83 H Blood Pressure Mean 88 95 Pulse Ox 100 99 Oxygen Delivery Method Room Air Room Air MDM <SYDNEE Worthington - Last Filed: 07/03/24 21:13> MDM Lab Data Labs: Laboratory Results - last 24 hr 07/03/24 17:28 WBC 7.8 RBC 4.96 Hgb 13.6 Hct 42.7 MCV 86.1 MCH 27.4 MCHC 31.9 L RDW Std Deviation 39.9 RDW Coeff of Elizabeth 13.0 Plt Count 290 MPV 11.6 Immature Gran % (Auto) 0.400 Neut % (Auto) 56.3 Lymph % (Auto) 26.3 [place] % (Auto) 10.9 H Eos % (Auto) 5.8 H Baso % (Auto) 0.3 Absolute Neuts (auto) 4.4 Absolute Lymphs (auto) 2.04 Nucleated RBC % 0 Sodium 132 L Potassium 4.0 Chloride 100 Carbon Dioxide 23.0 Anion Gap 9 BUN 12 Creatinine 0.72 Estim Creat Clear Calc 117.65 Est GFR (MDRD) Af Amer 133 Est GFR (MDRD) Non-Af 110 BUN/Creatinine Ratio 16.6 Glucose 441 H Calcium 9.0 Total Bilirubin 0.40 AST 21 ALT 23 Alkaline Phosphatase 121 H Total Protein 8.0 Albumin 3.5 Globulin 4.5 H Albumin/Globulin Ratio 0.8 L Lipase 46 Serum , Qual NEGATIVE Radiography Diagnostic Testing: Clinical Impression(s) from Imaging Studies Abdomen/Pelvis CT 07/03/24 18:30 IMPRESSION: 1. 2.6 cm dominant left ovarian follicle, not suspicious by size criteria. 2. Slight intrapelvic fluid. 3. Mild mesenteric adenopathy, similar. 4. Right nephrolithiasis. 5. Mild fluid distention of the distal esophagus is new, suspected reflux. Electronically Signed: Shira Onofre MD at 20:50 EST , Treatment and Re-Evaluation :: Differential diagnosis includes however is not limited to: Acute cholecystitis, pancreatitis, biliary colic, gastritis, GERD Patient appears generally well, vital signs are stable, patient is nontoxic-ap pearing. Presenting to the emergency department for epigastric pain, upper abdominal pain for the last week. Patient will receive a abdominal workup including upper abdominal labs, CBC CMP lipase, serum . Patient will be given IV Zofran, GI cocktail, IV Pepcid. Patient will be reevaluated. On my initial evaluation, I do not believe that any advanced imaging is necessary. Patient reevaluation was in no distress. Patient's CBC was unremarkable, patient's chemistry shows sodium 132, glucose was 441, patient was negative for . Patient is a type I diabetic. Patient did receive a CT scan of the abdomen pelvis, this did show a 2.6 cm left ovarian cyst. Slight intrapelvic fluid. Mild mesenteric adenopathy. Right nephrolithiasis. Mild fluid distention in the distal esophagus is new. Suspected reflux. Secondary to my examination, I do believe the patient is suffering from more of a gastritis. Patient replaced on omeprazole as well as Carafate. Patient is instructed to continue to follow-up outpatient. She will be following up with GI specialty. All questions were answered, patient stable for discharge. <Dr. Jd Barrios MD - Last Filed: 07/03/24 18:34> [facility] Narrative Medical decision making narrative: I have personally performed a face to face assessment of the patient and have reviewed the [facility] Note. I performed a substantive portion of the visit including all aspects of the following. My guerrier findings include: History is [89-year-old female complaining epigastric abdominal pain. Has had this going on for about a week. Associated nausea. No hematemesis. No fever. No dysuria. No prior abdominal surgeries.] Exam is [H EENT exam unremarkable. Moist extremities. Neck nontender no lymphadenopathy. Lungs clear to auscultation. Heart regular rhythm no murmur. Rate about 90. Abdomen soft nondistended normal bowel sounds without peritoneal signs. Mild epigastric and right upper quadrant tenderness. No Lr sign. No hernia or mass. No distention. No right lower quadrant or lower abdominal tenderness. No signs of trauma. Moving all 4 extremities. Nontender no edema. Normal strength and range of motion. Back nontender. She is awake and alert.] Medical Decision Making [18-year-old female epigastric abdominal pain. Labs and CT.] Other additions or changes: [None] History & Record Review Discussion w/independent historian: Patient Additional record(s) reviewed:: Prior inpatient record, Prior outpatient record, Prior ED visit and Prior labs Lab Data Attestation: I reviewed the patient's lab results. Lab results narrative: CBC white count of 7. H&H 13 and 42. Platelets 290. Electrolytes show sodium 132. Gap 9. Normal BUN of 12 creatinine 0.7. Glucose is elevated at 441. Prior history of type 1 diabetes. Liver enzymes unremarkable. Lipase normal at 46. Serum test negative. Labs: Laboratory Results - last 24 hr 07/03/24 17:28 WBC 7.8 RBC 4.96 Hgb 13.6 Hct 42.7 MCV 86.1 MCH 27.4 MCHC 31.9 L RDW Std Deviation 39.9 RDW Coeff of Elizabeth 13.0 Plt Count 290 MPV 11.6 Immature Gran % (Auto) 0.400 Neut % (Auto) 56.3 Lymph % (Auto) 26.3 [place] % (Auto) 10.9 H Eos % (Auto) 5.8 H Baso % (Auto) 0.3 Absolute Neuts (auto) 4.4 Absolute Lymphs (auto) 2.04 Nucleated RBC % 0 Sodium 132 L Potassium 4.0 Chloride 100 Carbon Dioxide 23.0 Anion Gap 9 BUN 12 Creatinine 0.72 Estim Creat Clear Calc 117.65 Est GFR (MDRD) Af Amer 133 Est GFR (MDRD) Non-Af 110 BUN/Creatinine Ratio 16.6 Glucose 441 H Calcium 9.0 Total Bilirubin 0.40 AST 21 ALT 23 Alkaline Phosphatase 121 H Total Protein 8.0 Albumin 3.5 Globulin 4.5 H Albumin/Globulin Ratio 0.8 L Lipase 46 Serum , Qual NEGATIVE Radiography Diagnostic Testing: Clinical Impression(s) from Imaging Studies Abdomen/Pelvis CT 07/03/24 18:30 IMPRESSION: 1. 2.6 cm dominant left ovarian follicle, not suspicious by size criteria. 2. Slight intrapelvic fluid. 3. Mild mesenteric adenopathy, similar. 4. Right nephrolithiasis. 5. Mild fluid distention of the distal esophagus is new, suspected reflux. Electronically Signed: Shira Onofre MD at 20:50 EST , Discharge Plan Triage Chief Complaint: Abd Pain ED Midlevel Provider: Alverto Madrigal ED Provider: Jd Barrios Dx/Rx/DC Orders Clinical Impression: Gastritis, GERD (gastroesophageal reflux disease) Instructions: ED GERD (Adult), ED Gastritis (Adult) Prescriptions: New omeprazole 40 mg capsule,delayed release(DR/EC) 40 mg PO DAILY Qty: 30 1RF sucralfate [Carafate] 1 gram tablet 1 g PO TID Qty: 21 0RF No Action nifedipine 30 mg tablet extended release 24hr 60 mg PO QHS drospirenone-ethinyl estradiol 3-0.03 mg tablet 1 tab PO DAILY insulin lispro [Humalog U-100 Insulin] 100 unit/mL solution 0 - 67 unit subcut UD insulin lispro 100 unit/mL insulin pen 0 - 50 unit subcut DAILY (DME) Omnipod 5 G6 Pods (Gen 5) Cartridge subcut Q3D Primary Care Provider: Dian Velez Referrals: Dian Velez MD [Primary Care Provider] - Mychal Díaz DO [Med Staff - Active Staff] - Print Language: Iraqi Disposition Disposition: Home, Self Care
[2024-07-03 17:44] LABS: Absolute Lymphocyte Count 2.04 X10^3/uL (0.83-4.51); Absolute Neutrophil Count 4.4 X10^3/uL (2.0-7.7); Basophil# 0.02 X10^3/uL; Basophil% 0.3 % (0-1); Eosinophil# 0.45 X10^3/uL; Eosinophils% 5.8 % (0-5); Hematocrit 42.7 % (37-47); Hemoglobin 13.6 g/dL (12.0-15.0); Lymphocyte # 2.04 X10^3/ul (0.83-4.51); Lymphocyte % 26.3 % (19-41); Mean Corp Hgb Conc 31.9 g/dL (32-36); Mean Corpuscular Hgb 27.4 pg (27.0-32.0); Mean Corpuscular Volume 86.1 fL (81-99); Mean Platelet Vol. 11.6 fl (6.2-12.0); Monocyte# 0.85 X10^3/uL; Monocyte% 10.9 % (0-10); NRBC Flagged by Analyzer 0 % (0-5); Neutrophil # 4.38 X10^3/uL (2.7-7.7); Neutrophil % 56.3 % (47-70); Platelet Count 290 K/mm3 (150-450); RBC Distribution Width SD 39.9 fl (35.1-43.9); Red Blood Count 4.96 M/mm3 (4.2-5.4); White Blood Count 7.8 K/mm3 (4.4-11.0)
[2024-07-03 17:52] LABS: Internal QC Validated? YES +Cl - CLEAR BKGD; Pregnancy, Serum, hCG Quali. NEGATIVE Negative
[2024-07-03] MEDS: Ondansetron 4 MG/2 ML Vial IV (17:52)
[2024-07-03] MEDS: Mag Hydrox/Al Hydrox/Simeth 30 ML UDC PO (17:53)
[2024-07-03] MEDS: Lidocaine 2% Viscous15 ML UDC 15 ML PO (17:53)
[2024-07-03] MEDS: Famotidine 200 MG/20 ML MDV 20 MG in 0.9% Normal Saline (Pres. free 8 ML 300 MG IV (17:53)
[2024-07-03 17:59] LABS: ALB/GLOB Ratio 0.8 RATIO (0.9-2.4); AST(SGOT) 21 U/L (15-37); Alanine Aminotransfer ALT/SGPT 23 U/L (13-56); Albumin, Serum 3.5 g/dL (3.2-5.0); Alkaline Phosphatase 121 U/L (45-117); Anion Gap 9 (5-15); BUN 12 mg/dL (7-18); BUN/Creat Ratio 16.6 RATIO (10-20); Chloride 100 mmol/L (98-107); Creatinine, Serum 0.72 mg/dL (0.55-1.02); EST Glomerular Filtration Rate 110 mL/min (>60); Est Glom Filt Rate - Afr Amer 133 mL/min (>60); Estimated Creatinine Clearance 117.65 ml/min; Globulin 4.5 g/dL (2.2-4.2); Glucose 441 mg/dL (74-106); Lipase 46 U/L (13-75); Sodium Level 132 mmol/L (136-145)
--- NOTE | 2024-07-03 18:30 | CT_ITS ---
EXAM: CT ABDOMEN AND PELVIS WITH INTRAVENOUS CONTRAST CLINICAL INDICATION: upper abd pain TECHNIQUE: Helically acquired images were obtained of the abdomen and pelvis with intravenous contrast. This CT exam was performed using one or more of the following dose reduction techniques: automated exposure control, adjustment of the mA and/or kV according to patient size, and/or use of iterative reconstruction technique. CONTRAST: IV 100mL Isovue-370 RADIATION DOSE: CTDIvol = 6.80 mGy, DLP = 358.58 mGy-cm. COMPARISON: March 03, 2024 showing slight dense material layering dependently in the gallbladder. FINDINGS: LOWER THORAX: Mildly distended distal esophagus with fluid may be due to reflux, it is 2 cm AP. Lung bases are clear. No cardiomegaly. No significant pericardial effusion. ABDOMEN: LIVER: Unremarkable. Homogeneous. No focal mass. GALLBLADDER AND BILE DUCTS: Contracted gallbladder. No calcified gallstones. No gallbladder distention or wall edema. No intra- or extrahepatic biliary ductal dilation. PANCREAS: Unremarkable. No focal cystic or solid mass. SPLEEN: Unremarkable. Normal size without focal cystic or solid mass. ADRENALS: Unremarkable. No nodules. KIDNEYS AND URETERS: Right nephrolithiasis, 2 tiny stones are suspected in the right kidney, new from prior exam. No hydronephrosis or ureter stone. Normal renal size and position. STOMACH AND BOWEL: Mild-moderate gas and stool in the proximal half of the colon, mild gas in the distal colon and rectum. No stomach or bowel distention. No focal inflammatory change. PELVIS: APPENDIX: Normal gas-filled appendix is best seen on coronal images. BLADDER: Unremarkable. REPRODUCTIVE: Thick-walled peripherally enhance dominant follicle of 2 cm x 1.7 cm x 2.6 cm in the left ovary. ABDOMEN and PELVIS: INTRAPERITONEAL SPACE: Slight free fluid in the pelvis. No free air. BONES/JOINTS: Unremarkable. No suspicious lytic or blastic abnormality. SOFT TISSUES: Unremarkable. No discrete abdominal or pelvic wall hernia. VASCULATURE: Unremarkable. Abdominal aorta is non-dilated. LYMPH NODES: Mild mesenteric adenopathy in the root of the mesentery. CT/Abdomen/Pelvis W IV Cont ONLY IMPRESSION: 1. 2.6 cm dominant left ovarian follicle, not suspicious by size criteria. 2. Slight intrapelvic fluid. 3. Mild mesenteric adenopathy, similar. 4. Right nephrolithiasis. 5. Mild fluid distention of the distal esophagus is new, suspected reflux. Electronically Signed: Shira Onofre MD at 20:50 EST ,
[2024-07-03 19:10] VITALS: BP 119/83; PULSE 85; RESP 16; O2SAT 99
[2024-07-03 21:00] VITALS: PULSE 95; RESP 18; O2SAT 98
[2024-07-03 21:23] VITALS: BP 119/83; PULSE 91; RESP 18; TEMP 36.7; O2SAT 99
== END 2024-07-03 21:26 | disposition home or self-care (01) ==
PROVIDERS: Nurse Practitioner; Emergency Provider Emergency Medicine; PCP Pediatrics; Visit Provider Emergency Medicine
DX: K29.70 Gastritis, unspecified, without bleeding (principal); E10.9 Type 1 diabetes mellitus without complications; Z79.4 Long term (current) use of insulin; K21.9 Gastro-esophageal reflux disease without esophagitis; K52.9 Noninfective gastroenteritis and colitis, unspecified; N20.0 Calculus of kidney; I88.0 Nonspecific mesenteric lymphadenitis; N83.202 Unspecified ovarian cyst, left side; G90.A Postural orthostatic tachycardia syndrome [POTS]; Z79.899 Other long term (current) drug therapy; F17.290 Nicotine dependence, other tobacco product, uncomplicated
CPT/HCPCS: 74177; 80053; 83690; 84703; 85025; 96365; 96375; 99283; Q9967; A4216; J2405

== ENCOUNTER 2025-06-07 09:55 | Emergency (ER) | payer MEDICAID, SELFPAY ==
[2025-06-07 09:56] VITALS: BP 121/89; PULSE 97; RESP 18; TEMP 36.7; O2SAT 99; BMI 25.7
--- NOTE | 2025-06-07 10:10 | US_ITS ---
PROCEDURE: TRANSVAGINAL W/PREG US 06/07/2025 REASON FOR EXAM: 11 WKS W/ V-BLEEDING TECHNIQUE: Procedure Code: [id number] Modality: US Procedure: TRANSVAGINAL W/PREG US COMPARISON: None FINDINGS: Comments: LMP: March 17, 2025. Number of Gestational Sacs: 1 Gestational Sac Shape: Normal Number of Fetuses: 1 Heart Rate: 170 beats per minute (average) Yolk Sac: Not visualized. Placenta: Presently not well-visualized Amniotic Fluid Volume: Subjectively normal for gestational age. Uterine Abnormalities: Maternal uterus is unremarkable. Small subchorionic hematoma measuring 3.3 cm 3.4 cm 1.8 cm. Ovaries / Adnexa: Both maternal ovaries are visualized and unremarkable. DIMENSIONS: Parameter Measurement / EGA [place] Rump Length: 5.1 cm/11 weeks and 5 days Gestational Sac: 4.8 cm/slightly irregular contour. Yolk Sac: Not visualized./ ESTIMATED GESTATIONAL AGE: By Ultrasound: 11 weeks and 5 days By LMP: 11 weeks and 5 days ESTIMATED DATE OF DELIVERY: By Ultrasound: December 22, 2025 By LMP: December 22, 2025. US/Transvaginal w/Preg US IMPRESSION: Single live intrauterine gestation with a mean gestational age of 11 weeks and 5 days. Small subchorionic hematoma. Reading Location: [place] [id number]
--- NOTE | 2025-06-07 10:11 | ED.VIS.FEGU ---
HPI HPI - Female History of Present Illness Chief Complaint: Vag Bld, Preg Informant: patient Pain Pain: Positive for Pelvic Pain Onset: Today Timing: Intermittent Quality: Positive for Cramping Current Severity: Gone Maximum Severity: Mild Bleeding Issue: Positive for Vaginal bleeding; Negative for Passing clots or Passing tissue Onset: Today Timing: Intermittent Current Severity: Mild Associated Symptoms Associated Symptoms: Negative for Dysuria, Frequency, Urgency or Hematuria Test: Positive Sexually: Positive for Active Control: No control P: 1 Ab: 2 Narrative Narrative: 19-year-old female reportedly 11 weeks with a due date of 12/22/2025. Sees maternal- medicine at [facility]. Has had an ultrasound showed a single live IUP with this . Also has a history of diabetes and anxiety. States that today she has had mild vaginal bleeding with intermittent cramping. Denies any dysuria or fever. No heavy bleeding or clots. Patient believes she is been at least 4 times at least 2 other miscarriages. She has 1 living child. She is G4, P1 AB 2. She has had 1 . Prior similar symptoms: Yes Recent Illness/Hospitalization: No PFSH PFS Medical History Normal esophagogastroduodenoscopy (EGD) Kidney stone delivery affecting POTS (postural orthostatic tachycardia syndrome) Type 1 diabetes mellitus Anxiety Home Medications ?Medication ?Instructions ?Recorded ?Last Taken ?Type insulin lispro 100 unit/mL 0 - 50 unit subcut DAILY 12/09/23 Unknown History subcutaneous pen insulin lispro 100 unit/mL 0 - 67 unit subcut UD 12/09/23 Unknown History subcutaneous solution (Humalog U-100 Insulin) insulin pump cart,automated,BT 01/28/24 Unknown History (Omnipod 5 G6 Pods (Gen 5) subcutaneous cartridge) omeprazole 40 mg capsule,delayed 40 mg PO DAILY #30 caps 07/03/24 Unknown Rx release aspirin 81 mg tablet,delayed 162 mg PO DAILY 06/07/25 Unknown History release famotidine 20 mg tablet 20 mg PO BID 06/07/25 Unknown History Allergy/AdvReac Type Severity Reaction Status Date / Time ketorolac (From Toradol) Allergy Mild Hives Verified 06/07/25 09:57 Social History household members: family and children housing: house current occupational status: employed Smoking Status: Current some day smoker tobacco type: e-cigarettes substance use type: does not use ROS ROS ED ROS Narrative Denies recent illness. Vaginal bleeding today. Constitutional Constitutional ED: Denies chills or fever(s) Eyes Eyes: Denies blurry vision ENT ENT ED: Denies ear pain Cardiovascular Cardiovascular: Denies chest pain Respiratory/Chest Respiratory/Chest: Denies cough or dyspnea Gastrointestinal Gastrointestinal: Denies abdominal pain Musculoskeletal Musculoskeletal: Denies arthralgias Integumentary Denies abscess Psychiatric Psychiatric: Denies anxiety Endocrine Endocrinology: Denies heat intolerance Hematologic/Lymphatic Hematologic/Lymphatic: Denies easy bleeding, easy bruising or lymphadenopathy Allergic/Immunologic Allergic/Immunologic ED: Denies mouth swelling, tongue swelling or urticaria EXAM Physical Exam Narrative Exam Narrative: 19-year-old female sitting upright in bed. No acute distress. Significant other at bedside. Vital signs are stable and afebrile. H EENT exam pupils round react light. Moist mutes membranes. Lungs clear to auscultation bilaterally. Heart regular rhythm rate about 95 no murmur. Chest wall ribs nontender. Abdomen soft, nondistended, normal bowel sounds without peritoneal signs. No significant tenderness. Right upper right lower quadrant unremarkable. Back nontender. Moving all 4 extremities. Nontender no edema. Normal strength. Neurologically awake alert. Answering questions and following commands. Benign exam. Const Vital Signs: 06/07/25 09:56 06/07/25 11:55 Temperature 98.1 F Temperature Source Oral Pulse Rate 97 76 Respiratory Rate 18 15 Blood Pressure 121/89 H 119/78 Blood Pressure Mean 99 91 Pulse Ox 99 99 Oxygen Delivery Method Room Air MDM MDM MDM Narrative Medical decision making narrative: 19-year-old female G4, P1 Ab2 currently 11 weeks with vaginal bleeding started today. She is unsure of her blood type. Is not our computer system. ABO Rh will be obtained, quant and a pelvic ultrasound. She did request some for anxiety Sh[place]y given p.o. Ativan. Repeat exam patient is doing well at 12:35 PM. We discussed her test results. 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 Treated as a threatened miscarriage. History & Record Review Discussion w/independent historian: Patient and Family Additional record(s) reviewed:: Prior outpatient record, Prior ED visit and Prior labs Lab Data Attestation: I reviewed the patient's lab results. Lab results narrative: Quantitative hCG is 78, 105. Blood type is O+. Ultrasound showed a single live IUP at 11 weeks and 5 days with a heart rate of 170. Small subchorionic hematoma. Read by the radiologist. Labs: Laboratory Results - last 24 hr 06/07/25 10:18 HCG, Quant [id number] H Blood Type O POSITIVE Radiography Diagnostic Testing: Clinical Impression(s) from Imaging Studies Obstetrics Ultrasound 06/07/25 10:10 IMPRESSION: Single live intrauterine gestation with a mean gestational age of 11 weeks and 5 days. Small subchorionic hematoma. Reading Location: [place] [id number] Discharge Plan Triage Chief Complaint: Vag Bld, Preg ED Provider: Jd Barrios Dx/Rx/DC Orders Clinical Impression: First trimester , Vaginal bleeding, Threatened miscarriage, Anxiety Instructions: Miscarriage Threatened Prescriptions: No Action omeprazole 40 mg capsule,delayed release(DR/EC) 40 mg PO DAILY Qty: 30 1RF insulin lispro [Humalog U-100 Insulin] 100 unit/mL solution 0 - 67 unit subcut UD insulin lispro 100 unit/mL insulin pen 0 - 50 unit subcut DAILY (DME) Omnipod 5 G6 Pods (Gen 5) Cartridge subcut Q3D aspirin 81 mg tablet,delayed release (DR/EC) 162 mg PO DAILY famotidine 20 mg tablet 20 mg PO BID Primary Care Provider: Care Physician,No Primary Referrals: NOT,DEFINED [Non-Staff, None] Activity Restrictions/Additional Instructions: Follow-up with your [employer] MACHINE OPERATOR Your blood type is O+. Your labs look good. Your ultrasound looks fine. No heavy lifting. No sexual intercourse. Print Language: Irish Disposition Disposition: Home, Self Care
[2025-06-07 11:28] LABS: hCG Titer Quant., Serum 78105 mIU/mL (<9 non-preg)
[2025-06-07 11:55] VITALS: BP 119/78; PULSE 76; RESP 15; O2SAT 99
[2025-06-07 12:47] VITALS: BP 119/78; PULSE 76; RESP 15; TEMP 36.6; O2SAT 99
== END 2025-06-07 12:47 | disposition home or self-care (01) ==
PROVIDERS: Emergency Provider Emergency Medicine; Visit Provider Emergency Medicine
DX: O20.0 Threatened abortion (principal); Z79.4 Long term (current) use of insulin; O99.341 Other mental disorders complicating pregnancy, first trimester; F41.9 Anxiety disorder, unspecified; O24.011 Pre-existing type 1 diabetes mellitus, in pregnancy, first trimester; O26.21 Pregnancy care for patient with recurrent pregnancy loss, first trimester; O99.331 Smoking (tobacco) complicating pregnancy, first trimester; F17.290 Nicotine dependence, other tobacco product, uncomplicated; Z3A.11 11 weeks gestation of pregnancy
CPT/HCPCS: 76817; 84702; 86900; 86901; 99283; A4216

== ENCOUNTER 2025-06-07 18:44 | Emergency (ER) | payer MEDICAID, SELFPAY ==
[2025-06-07 18:45] VITALS: BP 117/74; PULSE 106; RESP 16; TEMP 36.2; O2SAT 97; BMI 26.0
--- OUTSIDE RECORDS SUMMARY | 2025-06-07 20:41 | XMS RPT_ITS | CCD ---
Author Organization [facility] Care Team Providers Care Compressor Assembler Name Role Phone Dian Velez Primary Care Provider NEHA TAVERAS Attending Unavailable DIAN VELEZ Primary Care Unavailable Dian Velez MD Primary Care Provider Dian Velez Primary Care Provider Dian Velez MD Primary Care Provider Dian Velez MD Unavailable Dian Velez MD Primary Care Provider GENERIC PROVIDER, NO ASSIGNED PCP Primary Care Unavailable DR DIAN VELEZ MD Primary Care Physician DR DIAN VELEZ MD Primary Care Unavailab BARRY Campbell MD Attending Unavailable Unavailable Primary Care Provider UnavailDian Tolentino MD Primary Care Provider Dian Velez MD Unavailable Unavailable Primary Care Provider UnavailDian Tolentino MD Primary Care Provider Dian Velez MD Primary Care Provider CAMPOS TRINIDAD Admitting Unavail able MAIKEL NEWTON Attending Unavailable LIGIA VELEZ Consulting Unavailable RHIANNA DIAN A Primary Care Unavailable RHIANNA DIAN A Primary Care Unavailable BRIAN LYLES Attending UnavailANABELLA Mcpherson Attending Unavailable RHIANNA DIAN A Primary Care Unavailable SHEILA MCGEE Attending DIAN Bills A Primary Care Unavailable VELEZ, DIAN A Primary Care Unavailable GARRET TREJO Attending UnavailFLORES Villar Referring Unavailable FLORES GILBERT Attending Unavailable RHIANNA, DIAN A Primary Care Unavailable BREANNE BARRERA Referring Unavailable VELEZ, DIAN A Primary Care Unavailable ROWAN RODRIGUEZ Attending Unavailable VIANEY MENA Attending Unavailable VELEZ, DIAN A Primary Care Unavailable VLADIMIR, FLORES Referring Unavailable VLADIMIR, FLORES Referring Unavailable VLADIMIRMAGDAE Attending Unavailable VELEZ, DIAN A Primary Care Unavailable VELEZ, DIAN A Primary Care Unavailable VLADIMIRFLORES Lyles Attending Unavailable VLADIMIR, FLORES Referring Unavailable VLADIMIRFLORES Attending Unavailable VELEZ, DIAN A Primary Care Unavailable VLADIMIR, FLORES Referring Unavailable BRUCE, BREANNE L Referring Unavailable BRUCE, BREANNE L Attending Unavailable VELEZ, DIAN A Primary Care Unavailable BRUCE, BREANNE L Referring Unavailable VLADIMIR, FLORES Attending Unavailable VELEZ, DIAN A Primary Care Unavailable BRUCE, BREANNE L Referring Unavailable VELEZ, DIAN A Primary Care Unavailable VLADIMIRMAGDA LylesE Attending Unavailable IVAN SHARMA Attending Unavailable BRUCE, BREANNE L Referring Unavailable VELEZ, DIAN A Primary Care Unavailable VLADIMIRFLORES Attending Unavailable BRUCE, BREANNE L Referring Unavailable VELEZ, DIAN A Primary Care Unavailable VELEZ, DIAN A Primary Care Unavailable VLADIMIRMAGDA LylesE Attending Unavailable VLADIMIR, FLORES Referring Unavailable VELEZ, DIAN A Primary Care Unavailable VLADIMIRMAGDA LylesE Attending Unavailable VLADIMIR, FLORES Referring Unavailable VELEZ, DIAN A Primary Care Unavailable ROWAN RODRIGUEZ Attending Unavailable VLADIMIR, FLORES Referring Unavailable GILLISSAKINA Attending Unavailable VELEZ, DIAN A Referring Unavailable VELEZ, DIAN A Primary Care Unavailable VELEZ, DIAN A Primary Care Unavailable DARIAN ATKINSON Attending Unavailable DARIAN ATKINSON Admitting Unavailable JENNIFER, HUGO Referring Unavailable VELEZ, DIAN A Primary Care Unavailable JENNIFER, HUGO Attending Unavailable VELEZ, DIAN A Primary Care Unavailable VLADIMIRMAGDAE Attending Unavailable VLADIMIR, FLORES Referring Unavailable GILLIS, SAKINA Attending Unavailable GILLIS, SAKINA Referring Unavailable VELEZ, DIAN A Primary Care Unavailable BRUCE, BREANNE L Referring Unavailable VELEZ, DIAN A Primary Care Unavailable LEATHA ZACARIAS Attending Unavailable SHARMAIVAN Attending Unavailable BRUCE, BREANNE L Referring Unavailable VELEZ, DIAN A Primary Care Unavailable BRUCE, BREANNE L Referring Unavailable VELEZ, DIAN A Primary Care Unavailable VLADIMIRFLORES Lyles Attending Unavailable VLADIMIR FLORES Referring Unavailable SAKINA GILLIS Attending Unavailable VELEZ, DIAN A Referring Unavailable VELEZ, DIAN A Primary Care Unavailable GILLISSAKINA Attending Unavailable VELEZ, DIAN A Referring Unavailable VELEZ, DIAN A Primary Care Unavailable VELEZ, DIAN A Primary Care Unavailable VLADIMIRMAGDAE Attending Unavailable VLADIMIRMAGDAE Referring Unavailable VLADIMIRFLORES Attending Unavailable VELEZ, DIAN A Primary Care Unavailable VLADIMIRMAGDAE Referring Unavailable TERENCE DE SANTIAGO Attending Unavailable VELEZ, DIAN A Primary Care Unavailable VLADIMIRMAGDAE Referring Unavailable VLADIMIRFLORES Attending Unavailable VELEZ, DIAN A Primary Care Unavailable VLADIMIRMAGDAE Referring Unavailable MENAVIANEY F Attending Unavailable VELEZ, DIAN A Primary Care Unavailable REFERRED, SELF Referring Unavailable VLADIMIRFLORES Lyles Attending Unavailable REFERRED, SELF Referring Unavailable VELEZ, DIAN A Primary Care Unavailable MENA, VIANEY F Referring Unavailable MENA, VIANEY F Attending Unavailable VELEZ, DIAN A Primary Care Unavailable VELEZ, DIAN A Primary Care Unavailable VLADIMIRMAGDAE Referring Unavailable VELEZ, DIAN A Primary Care Unavailable VLADIMIRFLORES Lyles Attending Unavailable VLADIMIR FLORES Referring Unavailable VELEZ, DIAN A Primary Care Unavailable REFERRED, SELF Referring Unavailable VELEZ, DIAN A Attending Unavailable BRUCE, BREANNE L Referring Unavailable VELEZ, DIAN A Primary Care Unavailable BRUCE, BREANNE L Attending Unavailable BRUCE, BREANNE L Referring Unavailable VELEZ, DIAN A Primary Care Unavailable IVAN SHARMA Attending Unavailable MENA, VIANEY F Attending Unavailable VELEZ, DIAN A Primary Care Unavailable VLADIMIR, FLORES Referring Unavailable BRUCE, BREANNE L Referring Unavailable VELEZ, DIAN A Primary Care Unavailable VLADIMIRMAGDAE Attending Unavailable BRUCE, BREANNE L Referring Unavailable VELEZ, DIAN A Primary Care Unavailable IVAN SHARMA Attending Unavailable BRUCE, BREANNE L Referring Unavailable VELEZ, DIAN A Primary Care Unavailable VLADIMIRMAGDAE Attending Unavailable MENA, VIANEY F Attending Unavailable VELEZ, DIAN A Primary Care Unavailable VLADIMIR, FLORES Referring Unavailable VELEZ, DIAN A Primary Care Unavailable VLADIMIRMAGDA LylesE Attending Unavailable VLADIMIR, FLORES Referring Unavailable LEATHA ZACARIAS Attending Unavailable BRUCE, BREANNE L Referring Unavailable VELEZ, DIAN A Primary Care Unavailable VLADIMIRFLORES Lyles Attending Unavailable SONNY BRIONES Attending Unavailable VLADIMIR, FLORES Referring Unavailable VELEZ, DIAN A Primary Care Unavailable BRUCE, BREANNE L Referring Unavailable BRUCE, BREANNE L Attending Unavailable VELEZ, DIAN A Primary Care Unavailable VLADIMIRMAGDA MYRICKE Attending Unavailable VELEZ, DIAN A Primary Care Unavailable VLADIMIR, FLORES Referring Unavailable VELEZ, DIAN A Primary Care Unavailable VLADIMIRMAGDA LylesE Attending Unavailable VLADIMIR, FLORES Referring Unavailable VELEZ, DIAN A Primary Care Unavailable VIANEY MENA Attending Unavailable MAGDA GILBERTE Referring Unavailable VLADIMIRFLORES Lyles Attending Unavailable BRUCE, BREANNE L Referring Unavailable VLADIMIRMAGDA LylesE Attending Unavailable VELEZ, DIAN A Primary Care Unavailable ROWAN RODRIGUEZ Attending Unavailable VELEZ, DIAN A Primary Care Unavailable VLADIMIRMAGDA MYRICKE Referring Unavailable MAURY BARAHONA Attending Unavailable VELEZ, DIAN A Primary Care Unavailable MAURY BARAHONA Attending Unavailable VELEZ, DIAN A Primary Care Unavailable SAKINA GILLIS Attending Unavailable VELEZ, DIAN A Referring Unavailable VELEZ, DIAN A Primary Care Unavailable CRIS NARAYAN Attending Unavailable VELEZ, DIAN A Primary Care Unavailable REFERRED, SELF Referring Unavailable BRUCE, BREANNE L Referring Unavailable BRUCE, BREANNE L Attending Unavailable VELEZ, DIAN A Primary Care Unavailable SAKINA GILLIS Referring Unavailable ARIAS KAPADIA Attending Unavailable VELEZ, DIAN A Primary Care Unavailable Velez, Dian Primary Care Unavailable Jd Barrios Attending Unavailable Velez, Dian Primary Care Unavailable Sami Beck Attending Unavailable Andraeman, Anjelica Referring Unavailable Velez, Dian Primary Care Unavailable AndraemanCameliaey Attending Unavailable Jd Barrios Attending Unavailable Velez, Dian Primary Care Unavailable Velez, Dian Primary Care Unavailable FLORES GILBERT Attending Unavailable VLADIMIRMAGDAE Referring Unavailable VLADIMIRFLORES Attending Unavailable VLADIMIR, FLORES Referring Unavailable Velez, Dian Primary Care Unavailable VLADIMIR, FLORES Referring Unavailable VLADIMIRMAGDA MYRICKE Attending Unavailable Velez, Dian Primary Care Unavailable Velez, Dian Primary Care Unavailable VLADIMIRMAGDA MYRICKE Attending Unavailable FLROES GILBERT Referring Unavailable Alvarez Nguyen Attending Unavailable Dian Velez Primary Care Unavailable Unavailable Primary Care Provider UnavailDian Tolentino MD Primary Care Provider PHYSICIAN, NONE Primary Care Physician Unavailab le DIAN VELEZ Primary Care Unavailable LENA VELEZJen TORRE Primary Care Unavailable BENDARAM, KOURTNEY OMID Attending Unavaila ble DIAN VELEZ Primary Care Unavailable BENDARAM, KOURTNEY ANNE Referring Unavaila ROLAND Euceda Attending Unavailable DIAN VELEZ Primary Care Unavailable BREANNE JOSHI Attending Unavailable DIAN VELEZ Primary Care Unavailable DIAN VELEZ Primary Care Unavailable DIAN VELEZ Primary Care Unavailable DIAN VELEZ Primary Care Unavailable ROLAND TORO Referring Unavailable BENDARAM, KOURTNEY OMID Attending Unavaila BREANNE Ross Referring Unavailable DIAN VELEZ Primary Care Unavailable BENDARAM, KOURTNEY ANNE Attending Unavaila BREANNE Ross Attending Unavailable DIAN VELEZ Primary Care Unavailable DIAN VELEZ Primary Care Unavailable DIAN VELEZ Primary Care Unavailable ANDREW ALSTON Attending Unavailable PAPI CASTAÑEDA Primary Care Unavailable ASHELY CHAMBERS Attending Unavailable BREANNE JOSHI Referring Unavailable ISABEL DE SANTIAGO Attending Unavailable BREANNE JOSHI Attending Unavailable BENDARAM, KOURTNEY ANNE Attending Unavaila ble KUSICASHLYN Attending Unavailable KUSICASHLYN Attending Unavailable KUSIASHLYN Slater Referring Unavailable KUSIC, ASHLYN Spring Attending Unavailable KUSICASHLYN Referring Unavailable KUSICASHLYN Attending Unavailable DR DIAN VELEZ MD Primary Care Unavailab VERONICA Garcia MD Attending Unavail able KIM ANDERSON MD Attending Unavailable PHYSICIAN, NONE Primary Care Unavailable DEVORAH AMIN DO Attending Unavailable PHYSICIAN, NONE Primary Care Unavailable ROLAND REDDY DO Attending Unavailable PHYSICIAN, NONE Primary Care Unavailable DR DIAN VELEZ MD Primary Care Unavailab FELIPE Dickinson DO Attending Unavailable Allergies Allergy Classification Reported Allergen(s) Allergy Type Date of Onset Reaction(s) Facility (1 source) ALLERGIES NOT ON FILE; Translations: [ALLERGIES NOT ON FILE] Propensity to adverse reactions (disorder) [facility] Repository (20 sources) Ketorolac; Translations: [ketorolac] Drug Allergy 5 Hives, Weal (disorder) [facility] (1 source) Ketorolac Drug Allergy 5 [facility] Repository (20 sources) metroNIDAZOLE; Translations: [METRONIDAZOLE] Drug Allergy 5 Intolerance [facility] (3 sources) Metronidazole; Translations: [metronidazole containing compounds] Drug allergy [facility] Medications Current Medications Medication Drug Class(es) Dates Sig (Normalized) Sig (Original) 168 HR ethinyl estradiol 0.01138 MG/HR / norelgestromin 0.83737 MG/HR Transdermal System [Zafemy] (1 source) Start: 05-12-2024 Zafemy 150 mcg-35 mcg/24 hr transdermal film, extended release Dose = 1 patch(es), Transdermal, qWeek, apply a new patch to skin weekly for 3 weeks, remove for 1 week, then repeat cycle, # 9 patch(es), 0 Refill(s) Start Date: 05/12/24 Status: Ordered 21 DAY ethinyl estradiol 0.116318 MG/HR / etonogestrel 0.005 MG/HR Vaginal System [Enilloring] (3 sources) Start: 01-10-2025 EnilloRing 0.12 mg-0.015 mg/24 hours vaginal ring Dose = 1 EA, Vaginal, q4wk, Insert a new ring on day 1 and use for 3 weeks, remove for 1 week, then repeat cycle, # 1 EA, 0 Refill(s) Start Date: 01/10/25 Status: Ordered Medication Dispense Status: Completed Quantity: 1.0 Unit: EA Total Allowed Fills: 1 Fills Dispensed: 0 Start: 01-10-2025 EnilloRing 0.1 2 mg-0.015 mg/24 hours vaginal ring Dose = 1 EA, Vaginal, q4wk, Insert a new ring on day 1 and use for 3 weeks, remove for 1 week, then repeat cycle, # 1 EA, 0 Refill(s) Start Date: 01/10/25 Status: Ordered Quantity: 1.0 Unit: EA Repeat number: 1 acetaminophen 325 mg / HYDROcodone bitartrate 5 mg oral tablet (1 source) Opioid Agonist Start: 05-30-2022 take 1 tablet by mouth every four hours as needed Hydrocodone-Acetaminophen Active 1 TABLET PO EVERY 4 HOURS NEEDED 05 30May 30, 2022 Start: 05-30-2022 take 1 tablet by schuyler th every four hours as needed Hydrocodone-Acetaminophen Active 1 TABLE T PO EVERY 4 HOURS NEEDED 05 30May 30, 2022 acetaminophen 325 mg / oxyCODONE hydrochloride 5 mg oral tablet (9 sources) Opioid Agonist Start: 08-20-2022 take 1 tablet by mouth every eight hours Oxycodone-Acetaminophen (Percocet) 5-325 mg tablet Active 1 TABLET PO Q8H 6 February 28, 2023 Start: 08-20-2022 End: 04-20-2023 take 1 tablet by mouth every six hours Oxycodone-Acetaminophen (Percocet) 5-325 mg tablet Active 1 TABLET PO EVERY 6 HOURS 12 March 25, 2023 Start: 08-20-2022 take 1 tablet by schuyler th every four hours Oxycodone-Acetaminophen Active 1 TABLET PO Q4H 10 August 20, 2022 amoxicillin 875 mg / clavulanate 125 mg oral tablet (3 sources) Penicillin-class Antibacterial Start: 03-03-2025 End: 03-08-2025 take 1 tablet by mouth every twelve hours amoxicillin-clavulanate potassium (AUGMENTIN) 875-125 mg per tablet Take 1 tablet by mouth every 12 hours for 5 days. 10 tablet 03/03/2025 03/08/2025 Active Start: 11-23-2024 End: 11-30-2024 take 1 tablet by mouth twice daily amoxicillin-clavulanate potassium (AUGMENTIN) 875-125 mg per tablet Indications: Bacterial sinusitis Take 1 tablet by mouth two times a day for 7 days. 14 tablet 11/23/2024 11/30/2024 Active Start: 09-20-2024 End: 09-27-2024 take 1 tablet by mouth twice daily amoxicillin-clavulanate potassium (AUGMENTIN) 875-125 mg per tablet Indications: Bacterial sinusitis Take 1 tablet by mouth two times a day for 7 days. 14 tablet 09/20/2024 09/27/2024 Active Blood Glucose Monitoring Suppl (Autobutler SYSTEM) w/Device KIT (5 sources) Start: 04-21-2023 Blood Glucose Monitoring Suppl (ONETOUCH VERIO FLEX SYSTEM) w/Device KIT Use as directed to test metered glucose 1 Kit 1 04/21/2023 Active Blood-Glucose Transmitter (DEXCOM G6 TRANSMITTER) leny (20 sources) Start: 09-08-2024 Blood-Glucose Transmitter (DEXCOM G6 TRANSMITTER) leny 1 Each once every month. 1 Each 2 09/08/2024 Active cephalexin 500 mg oral capsule (8 sources) Cephalosporin Antibacterial Start: 01-24-2025 End: 01-31-2025 cephalexin 500 mg oral capsule Dose : 500 mg = 1 cap(s), Oral, q12h, X 7 day(s), # 14 cap(s), 0 Refill(s), 01/31/25 9:43:00 PM EDT, 68.2 Start Date: 01/24/25 Stop Date: 01/31/25 Status: Ordered Quantity: 14.0 Unit: cap(s) Repeat number: 1 Start: 10-20-2023 End: 10-27-2023 take 1 capsule by mouth three times daily cephALEXin (KEFLEX) 500 mg capsule Take 1 capsule by mouth three times a day for 7 days. 21 capsule 0 10/20/2023 10/27/2023 Active Start: 09-22-2023 End: 09-28-2023 take 1 capsule by mouth every twelve hours cephALEXin (KEFLEX) 500 MG capsule Take 1 (one) capsule (500 mg total) by mouth every 12 (twelve) hours for 6 days . 12 capsule 0 09/22/2023 09/28/2023 Active Start: 09-21-2023 End: 09-22-2023 cephALEXin (KEFLEX) capsule 500 mg Start: 06-09-2022 End: 06-16-2022 take 1 capsule by mouth three times daily cephALEXin (KEFLEX) 500 MG capsule Take 1 Capsule (500 mg) by mouth 3 times daily for 7 days 21 Capsule 0 06/09/2022 06/16/2022 Active Start: 05-30-2022 take 500 mg by mouth every six hours Cephalexin Active 500 MG PO EVERY 6 HOURS May 30, 2022 12:00am cetirizine hydrochloride 10 mg oral tablet (20 sources) Histamine-1 Receptor Antagonist Start: 05-12-2024 cetirizine (ZYRTEC) 10 mg tablet Take 10 mg by mouth as needed for cold/allergy symptoms. As needed 05/12/2024 Active Start: 06-01-2023 End: 08-30-2023 take 1 tablet by mouth twice daily cetirizine (ZYRTEC) 10 MG tablet Take 1 Tablet (10 mg) by mouth 2 times daily for 90 days 60 Tablet 2 06/01/2023 08/30/2023 Active End: 05-05-2024 Cetirizine (ZYRTEC) 10 mg ca p Take by mouth. 05/05/2024 Discontinued (Other) End: 02-10-2024 take 1 tablet by mouth once daily cetirizine (ZyrTEC) 10 MG tablet Take 10 mg by mouth daily. 02/10/2024 Discontinued Comment on above: Take by mouth. cholecalciferol 0.025 mg oral tablet (20 sources) Vitamin D Start: 11-26-2023 cholecalciferol (Vitamin D3) 25 MCG (1000 UT) tablet Take by mouth daily. 11/26/2023 Active Start: 09-02-2023 take 1 tablet by schuyler th once daily Cholecalciferol (VITAMIN D) 25 MCG (1000 UT) tablet Take 1 Tablet (1,000 Units) by mouth daily 30 Tablet 8 09/02/2023 Active Start: 04-21-2023 End: 04-22-2023 vitamin D3 tablet 1,000 Unit s clindamycin 300 mg oral capsule (5 sources) Lincosamide Antibacterial Start: 04-27-2025 End: 05-04-2025 take 1 capsule by mouth twice daily clindamycin (Cleocin) 300 MG capsule Indications: Bacterial vaginosis in Take 1 capsule (300 mg) by mouth 2 times daily for 7 days. 14 capsule 04/27/2025 05/04/2025 Active Start: 09-10-2024 End: 09-17-2024 clindamycin phosphate 2 % va ginal cream Indications: Adverse effect of drug, initial encounter Use 1 Applicatorful vaginally daily at bedtime for 7 days. 40 g 09/10/2024 09/17/2024 Active Continuous Blood Gluc Sensor (DEXCOM G6 SENSOR) MISC (4 sources) Start: 07-08-2023 Continuous Blo od Gluc Sensor (DEXCOM G6 SENSOR) MISC Use as directed. Change sensor every 10 days. 3 Each 5 07/08/2023 Active Start: 04-24-2023 Continuous Blo od Gluc Sensor (DEXCOM G6 SENSOR) MISC Use as directed. Change sensor every 10 days. 3 Each 11 04/24/2023 Active Continuous Blood Gluc Transm it (DEXCOM G6 TRANSMITTER) MISC (4 sources) Start: 07-16-2023 Continuous Blo od Gluc Transmit (DEXCOM G6 TRANSMITTER) MISC Use as directed. Change transmitter every 3 months. 1 Each 07/16/2023 Active Start: 04-24-2023 Continuous Blo od Gluc Transmit (DEXCOM G6 TRANSMITTER) MISC Use as directed. Change transmitter every 3 months. 1 Each 3 04/24/2023 Active Continuous Glucose Sensor (DEXCOM G6 SENSOR) MISC (1 source) Start: 10-29-2023 Continuous Glu cose Sensor (DEXCOM G6 SENSOR) MISC Use as directed. Change sensor every 10 days. 3 Each 5 10/29/2023 Active Continuous Glucose Transmitter (DEXCOM G6 TRANSMITTER) MISC (1 source) Start: 10-29-2023 Continuous Glu cose Transmitter (DEXCOM G6 TRANSMITTER) MISC Use as directed. Change transmitter every 3 months. 1 Each 3 10/29/2023 Active cyclobenzaprine hydrochloride 5 mg oral tablet (5 sources) Muscle Relaxant Start: 05-12-2024 End: 05-22-2024 cyclobenzaprine 5 mg oral tablet Dose : 5 mg = 1 tab(s), Oral, TID, X 10 day(s), # 30 tab(s), 0 Refill(s), 05/22/24 1:12:00 PM EST Start Date: 05/12/24 Stop Date: 05/22/24 Status: Ordered Start: 02-21-2024 End: 02-21-2024 take 5 mg by mouth once 5 mg, Oral, Once, On Sun 01/28 11/19 at 0845, For 1 dose DEXCOM G6 SENSOR leny (20 sources) Start: 11-14-2024 DEXCOM G6 SENS OR leny Indications: Type 1 diabetes mellitus without complication (HCC) Inject 1 Each subcutaneously every 2 weeks. 3 each 2 11/14/2024 Active Start: 07-18-2024 End: 11-14-2024 DEXCOM G6 SENSOR leny Indica tions: Type 1 diabetes mellitus without complication (HCC) Inject 1 Each subcutaneously every 2 weeks. 3 Each 2 07/18/2024 11/14/2024 Discontinued Start: 07-18-2024 DEXCOM G6 SENS OR leny Indications: Type 1 diabetes mellitus without complication (HCC) Inject 1 Each subcutaneously every 2 weeks. 3 Each 2 07/18/2024 Active Start: 05-23-2023 End: 07-18-2024 DEXCOM G6 SENSOR leny Use as directed. Change sensor every 10 days. 05/23/2023 07/18/2024 Discontinued Start: 05-23-2023 DEXCOM G6 SENS OR leny Use as directed. Change sensor every 10 days. 05/23/2023 Active Start: 05-23-2023 DEXCOM G6 SENS OR leny Use as directed. Change sensor every 10 days. 0 05/23/2023 Active Comment on above: Use as directed. Leatha nge sensor every 10 days. Dexcom G6 Transmitter Leny (2 sources) Start: Dexcom G6 Transmitter Leny Dexcom G6 Transmitter device (1 source) Start: Dexcom G6 Transmitter device Dexcom G6 Transmitter device, Use as directed. Change transmitter every 3 months. Start Date: 05/12/24 Status: Ordered docusate sodium 100 mg oral capsule (4 sources) Start: End: take 1 capsule by mouth twice daily as needed for constipation Docusate Sodium (DSS) 100 MG capsule Take 1 capsule (100 mg) by mouth 2 times daily as needed for constipation. 60 capsule 02/24/2024 03/25/2024 Active drospirenone / Ethinyl Estradiol (18 sources) Progestin, Estrogen Start: take 1 tablet by mouth once daily Drospirenone-Ethinyl Estradiol (VERITO, 28,) 3-0.03 mg per tablet Take 1 tablet by mouth once daily. 28 tablet 12 06/13/2024 Active ergocalciferol 1.25 mg oral capsule (20 sources) Provitamin D2 Compound End: take 1 capsule by mouth every week ergocalciferol (Vitamin D2) 1,250 mcg (50,000 unit) capsule Indications: vitamin D deficiency Take 1 (one) capsule (50,000 Units total) by mouth once a week Reasons: low vitamin D levels. 0 Active Comment on above: Take by mouth. 21 day ethinyl estradiol 0.446234 mg/hr / etonogestrel 0.005 mg/hr vaginal system (14 sources) Progestin, Estrogen Start: Etonogestrel-Ethinyl Estradiol (NUVARING) 0.12-0.015 mg/24 hr vaginal ring Use 1 each vaginally as directed. Insert vaginally and leave in place for 3 consecutive weeks, then remove for 1 week. 1 each 12/13/2024 Active famotidine 20 mg oral tablet (3 sources) Histamine-2 Receptor Antagonist Start: Pepcid 20 mg oral tablet Dose : 20 mg = 1 tab(s), Oral, BID, # 60 tab(s), 0 Refill(s) Start Date: 05/06/25 Status: Ordered Medication Dispense Status: Completed Quantity: 60.0 Unit: tab(s) Total Allowed Fills: 1 Fills Dispensed: 0 Start: 02-22-2024 End: 02-25-2024 take 1 tablet by mouth every twenty-four hours as needed for gastroesophageal reflux disease ferrous sulfate 325 mg oral tablet (6 sources) Start: 02-24-2024 End: 02-23-2025 take 1 tablet by mouth once daily at breakfast ferrous sulfate 325 (65 Fe) MG tablet Take 1 tablet (325 mg) by mouth daily (with breakfast). 90 tablet 02/24/2024 02/23/2025 Active Start: 02-22-2024 End: 02-25-2024 325 mg, Oral, 2 times daily with meals, First dose on Thu02/22/24 at 0800, , Start if Hgb less than 10. Hold oral ferrous sulfate dose if receiving IV iron sucrose (Venofer) Start: 02-19-2024 End: 02-22-2024 take 325 mg by mouth once daily at breakfast 325 mg, Oral, Daily with breakfast, First dose on Thu02/19/24 at 0800 fluconazole 150 mg oral tablet (20 sources) Azole Antifungal Start: 11-14-2024 End: 11-14-2024 take 1 tablet by mouth once fluconazole (DIFLUCAN) 150 mg tablet Take 1 tablet by mouth one time only for 1 dose. 1 tablet 11/14/2024 11/14/2024 Active Start: 09-07-2024 End: 09-09-2024 take 1 tablet by mouth once daily fluconazole (DIFLUCAN) 150 mg tablet Take 1 tablet by mouth once daily for 1 day. 1 tablet 09/08/2024 09/09/2024 Active Start: 07-05-2024 End: 07-05-2024 take 1 tablet by mouth once fluconazole (DIFLUCAN) 150 mg tablet Take 1 tablet by mouth one time only for 1 dose. 1 tablet 07/05/2024 07/05/2024 Active Start: 06-10-2024 End: 06-10-2024 take 1 tablet by mouth once fluconazole (DIFLUCAN) 150 mg tablet Take 1 tablet by mouth one time only for 1 dose. 1 tablet 06/10/2024 06/10/2024 Active Start: 09-12-2022 End: 05-05-2024 take 1 tablet by mouth once daily fluconazole (DIFLUCAN) 150 mg tablet Take 1 tablet by mouth once daily for 1 day. 1 tablet 10/20/2022 05/05/2024 Discontinued (Course of therapy completed) Start: 05-13-2022 End: 08-04-2022 take 1 tablet by mouth once fluconazole (DIFLUCAN) 150 mg tablet Indications: Feared condition not demonstrated Take 1 tablet by mouth one time only for 1 dose. 1 tablet 0 08/04/2022 Active Comment on above: Take 1 tablet by schuyler th one time only for 1 dose. Repeat in 3 days as needed. Take 1 tablet by schuyler th one time only for 1 dose. Take 1 tablet by schuyler th once daily for 1 day. fluticasone propionate 0.05 mg/actuat metered dose nasal spray (20 sources) Corticosteroid Start: take 2 spray(s) by mouth once daily fluticasone (FLONASE) 50 mcg/actuation nasal spray Indications: Bacterial sinusitis Use 2 sprays in each nostril once daily. Rinse mouth after use. 1 each 11/23/2024 Active Start: 02-11-2019 End: 05-05-2024 fluticasone (FLONASE) 50 mcg /actuation nasal spray Use 1 [place] in the nose. 02/11/2019 05/05/2024 Discontinued (Course of therapy completed) Comment on above: Use 1 [place] in the n ose. glucagon 3 mg nasal powder (17 sources) Antihypoglycemic Agent Start: 05-12-2024 Baqsimi One Pack 3 mg nasal powder 1 puff(s), Intranasal, AsDirected, PRN Low blood sugar low blood sugar, # 1 EA, 1 Refill(s) Start Date: 05/12/24 Status: Ordered Medication Dispense Status: Completed Quantity: 1.0 Unit: EA Total Allowed Fills: 1 Fills Dispensed: 0 Start: 02-18-2024 End: 02-25-2024 Start: 01-09-2024 End: 01-10-2024 1 mg, IntraMUSCular, PRN, lo w blood sugar, Blood glucose less than 70 mg/dL and patient NOT ALERT or NPO and does not have IV access., Starting on 01/09/24 at 2225, After administration, attempt intravenous access and start D5W at 100 mL/hr. Repeat blood glucose in 15 minutes x2 and notify provider. Start: 10-30-2023 End: 10-31-2023 glucagon (human recombinant) injection 1 mg Start: 04-21-2023 End: 08-13-2023 Glucagon (BAQSIMI TWO PACK) 3 MG/DOSE POWD Administer 1 Dose (3 mg) in nose as needed (severe low blood sugar) 2 Each 1 07/16/2023 Active Comment on above: Administer 1 Dose (3 mg) in nose as needed (severe low blood sugar) ibuprofen 600 mg oral tablet (10 sources) Nonsteroidal Anti-inflammatory Drug Start: 02-23-2024 End: 03-05-2024 take 1 tablet by mouth every six hours ibuprofen 600 MG tablet Take 1 tablet (600 mg) by mouth in the morning and 1 tablet (600 mg) at noon and 1 tablet (600 mg) in the evening and 1 tablet (600 mg) before bedtime. Do all this for 10 days. 40 tablet 02/24/2024 03/05/2024 Active Start: 08-19-2022 ibuprofen (MOT RIN) 800 MG tablet Take by mouth 0 08/19/2022 Active Start: 06-09-2022 End: 06-09-2022 ibuprofen (MOTRIN) tablet 60 0 mg Insulin Disposable Pump (OMN IPOD 5 G6 INTRO, GEN 5,) KIT (1 source) Start: 05-29-2023 Insulin Dispos able Pump (OMNIPOD 5 G6 INTRO, GEN 5,) KIT Use as directed. 1 Kit 0 05/29/2023 Active Insulin Disposable Pump (OMN IPOD 5 G6 POD, GEN 5,) MISC (4 sources) Start: 07-16-2023 Insulin Dispos able Pump (OMNIPOD 5 G6 POD, GEN 5,) MISC Use as directed. Change your pod every 3 days. 10 Each 1 07/16/2023 Active Start: 05-29-2023 Insulin Dispos able Pump (OMNIPOD 5 G6 POD, GEN 5,) MISC Use as directed. Change your pod every 3 days. 10 Each 5 05/29/2023 Active Lantus (20 sources) Insulin Analog Start: 01-10-2025 inject 1 dose by subcutaneous injection once daily Lantus Subcutaneous, qDay, 0 Refill(s) Start Date: 01/10/25 Status: Ordered Medication Dispense Status: Completed Total Allowed Fills: 1 Fills Dispensed: 0 Start: 01-10-2025 Lantus Subcuta neous, qDay, 0 Refill(s) Start Date: 01/10/25 Status: Ordered Repeat number: 1 Start: 09-08-2024 insulin glargi ne (LANTUS SOLOSTAR U-100 INSULIN) 100 unit/mL (3 mL) Indications: Type 1 diabetes mellitus without complication (HCC) Inject 15 Units subcutaneously daily at bedtime. 15 mL 09/08/2024 Active Start: 07-18-2024 End: 09-08-2024 insulin glargine (LANTUS OLVIN OSTAR U-100 INSULIN) 100 unit/mL (3 mL) Indications: Type 1 diabetes mellitus without complication (HCC) In case of pump failure- upto 15 units daily 15 mL 07/18/2024 09/08/2024 Discontinued Start: 04-21-2023 End: 06-13-2024 LANTUS SOLOSTAR U-100 INSULI N 100 unit/mL (3 mL) 04/21/2023 06/13/2024 Discontinued Start: 04-21-2023 Insulin Glargi ne (LANTUS SOLOSTAR) 100 UNIT/ML SOPN Inject up to 20units SQ nightly as directed, dose subject to change 15 mL 1 07/16/2023 Active Start: 04-21-2023 LANTUS SOLOSTA R U-100 INSULIN 100 unit/mL (3 mL) INJECT 30 UNITS SUBCUTANEOUSLY at night DIRECTED (subject to change) 0 04/21/2023 Active Start: 04-21-2023 Insulin Glargi ne (LANTUS SOLOSTAR) 100 UNIT/ML SOPN Inject up to 30units SQ nightly as directed, dose subject to change 15 mL 1 04/21/2023 Active Start: 04-20-2023 End: 04-22-2023 insulin glargine (LANTUS) in jection 20 Units Comment on above: INJECT 30 UNITS SUBC UTANEOUSLY at night DIRECTED (subject to change) insulin isophane, human 100 unt/ml injectable suspension (4 sources) Start: 10-31-2023 End: 10-31-2023 insulin NPH (Isophane) (HumuLIN N,NovoLIN N) injection 28 Units Start: 10-31-2023 End: 10-31-2023 insulin NPH (Isophane) (Humu MEL N,NovoLIN N) injection 28 Units Start: 10-30-2023 End: 10-31-2023 insulin NPH (Isophane) (Humu MEL N,NovoLIN N) injection 10 Units insulin lispro 100 unt/ml injectable solution (20 sources) Insulin Analog Start: 01-10-2025 insulin lispro (Humalog) 100 units/mL injectable solution 0 Refill(s) Start Date: 01/10/25 Status: Ordered Medication Dispense Status: Completed Total Allowed Fills: 1 Fills Dispensed: 0 Start: 07-18-2024 insulin lispro (HUMALOG KWIKPEN) 100 unit/mL Indications: Type 1 diabetes mellitus without complication (HCC) In case of pump failure- take upto 30 units dialy 15 mL 07/18/2024 Active Start: 10-30-2023 End: 10-31-2023 Insulin Lispro (Humalog) inj ection 6 Units Start: 07-08-2023 Insulin Lispro (HUMALOG) 100 UNIT/ML SOLN Use as directed to inject up to 67 units of insulin via insulin pump daily. Please dispense Humalog. 20 mL 3 07/08/2023 Active Start: 04-21-2023 End: 07-18-2024 insulin lispro (HUMALOG KWIK PEN) 100 unit/mL Indications: Type 1 diabetes mellitus without complication (HCC) Inject up to 50units SQ daily as directed based on IC ratio and correction factor 30 mL 1 07/18/2024 Active Start: 04-20-2023 End: 04-22-2023 insulin lispro (HumaLOG Gomez or) kwikpen (Meals/Bedtime-Pen Calculator) 0-30 Units insulin lispro ( AdmeLOG,HumaLOG) 100 unit/mL injection Indications: type 1 diabetes mellitus Inject 6 (six) Units under the skin 3 (three) times a day before meals Based off of carbs, patients has an insulin pump. Reasons: type 1 diabetes mellitus. 0 Active Comment on above: Inject up to 50units SQ daily as directed based on IC ratio and correction factor insulin lispro (HumaLOG) 100 UNIT/ML patient supplied pump (20 sources) insulin lispro ( HumaLOG) 100 UNIT/ML patient supplied pump Inject under the skin continuous. Active insulin lispro ( HumaLOG) 100 UNIT/ML patient supplied pump Inject under the skin continuous. 0 Active insulin scallop cutter machine cart,aut,G6/7,cn tr (OMNIPOD 5 G6-G7 INTRO KT,GEN5,) crtg (20 sources) Start: 10-07-2024 insulin scallop cutter machine ca rt,aut,G6/7,cntr (OMNIPOD 5 G6-G7 INTRO KT,GEN5,) crtg Indications: Type 1 diabetes mellitus without complication (HCC) For use with the pump 1 each 10/07/2024 Active insulin pump cart,auto,BT,G6 /7 (OMNIPOD 5 G6-G7 PODS, GEN 5,) crtg (20 sources) Start: 07-18-2024 insulin pump c art,auto,BT,G6/7 (OMNIPOD 5 G6-G7 PODS, GEN 5,) crtg Indications: Type 1 diabetes mellitus without complication (HCC) Inject 1 Each subcutaneously every 72 hours. 10 Each 3 07/18/2024 Active iron polysaccharides (NIFERE X) 150 MG capsule (1 source) Start: 10-31-2023 iron polysacch arides (NIFEREX) 150 MG capsule Take orally as directed 30 Capsule 5 10/31/2023 Active IRON, FERROUS SULFATE, PO (13 sources) End: 02-10-2024 IRON, FERROUS SULFATE, PO Ta ke by mouth. 02/10/2024 Discontinued IRON, FERROUS UMANA LFATE, PO Take by mouth. Active IRON, FERROUS UMANA LFATE, PO Take by mouth Active isopropyl alcohol 0.7 ml/ml medicated pad (20 sources) Start: 07-16-2023 Isopropyl Alco hol 70 % MISC Use as directed to test metered glucose and administer insulin. 300 Each 1 07/16/2023 Active Start: 04-21-2023 alcohol swabs Use as directed to test metered glucose and administer insulin. 04/21/2023 Active Start: 04-21-2023 Isopropyl Alco hol 70 % MISC Use as directed to test metered glucose and administer insulin. 300 Each 1 04/21/2023 Active Comment on above: Use as directed to t est metered glucose and administer insulin. metoclopramide 10 mg oral tablet (12 sources) Dopamine-2 Receptor Antagonist Start: 05-06-2025 End: 05-13-2025 Reglan 10 mg oral tablet Dose : 10 mg = 1 tab(s), Oral, QID, X 7 day(s), # 28 tab(s), 0 Refill(s), 05/13/25 1:03:00 PM EST Start Date: 05/06/25 Stop Date: 05/13/25 Status: Ordered Medication Dispense Status: Completed Quantity: 28.0 Unit: tab(s) Total Allowed Fills: 1 Fills Dispensed: 0 Start: 08-08-2023 End: 09-22-2023 take 1 tablet by mouth four times daily at mealtime metoclopramide (REGLAN) 5 MG tablet Take 1 (one) tablet (5 mg total) by mouth 4 (four) times a day with meals and nightly for 10 days . 40 tablet 0 08/08/2023 09/22/2023 Discontinued Start: 08-02-2023 End: 05-05-2024 take 1 tablet by mouth four times daily at mealtime metoclopramide HCl (REGLAN) 10 mg tablet TAKE 1 TABLET BY MOUTH FOUR TIMES DAILY WITH MEALS AND AT NIGHT 08/02/2023 05/05/2024 Discontinued Metoclopramide H Cl (REGLAN PO) Take by mouth as needed Active Comment on above: TAKE 1 TABLET BY SCHUYLER TH FOUR TIMES DAILY WITH MEALS AND AT NIGHT miconazole nitrate 20 mg/ml vaginal cream (1 source) Azole Antifungal Start: End: miconazole (Micotin) 2 % vaginal cream Indications: Vaginal yeast infection Insert 1 applicator into the vagina Nightly for 7 days. 35 g 2 04/27/2025 05/04/2025 Active multivitamin () 27-0.8 MG tablet (19 sources) Start: take 1 tablet by mouth once daily multivitamin () 27-0.8 MG tablet Indications: Missed menses Take 1 tablet by mouth daily. 90 tablet 4 03/31/2025 Active naproxen 500 mg oral tablet (8 sources) Nonsteroidal Anti-inflammatory Drug Start: End: take 1 tablet by mouth every twelve hours as needed naproxen (NAPROSYN) 500 mg tablet Take 1 tablet by mouth two times a day as needed (FOR PAIN - TAKE WITH FOOD.) for up to 7 days. 14 tablet 03/03/2025 03/10/2025 Active Start: 05-12-2024 End: 05-22-2024 naproxen 500 mg oral tablet Dose : 500 mg = 1 tab(s), Oral, BID, X 10 day(s), # 20 tab(s), 0 Refill(s), 05/22/24 1:11:00 PM EST Start Date: 05/12/24 Stop Date: 05/22/24 Status: Ordered Start: 10-25-2022 take 1 tablet by schuyler twice daily Naproxen (Naprosyn) 500 mg tablet Active 500 MG PO TWICE A DAY October 24, 2022 11:00pm nystatin 160203 unt/ml topical cream (9 sources) Polyene Antifungal Start: 09-07-2024 End: 09-21-2024 nystatin (MYCOSTATIN) cream Indications: Vaginal pain Apply to affected area two times a day for 14 days. 30 g 09/07/2024 09/21/2024 Active OMNIPOD 5 G6 INTRO KIT, GEN 5, crtg (20 sources) Start: 05-29-2023 OMNIPOD 5 G6 I NTRO KIT, GEN 5, crtg as directed. 05/29/2023 Active Start: 05-29-2023 OMNIPOD 5 G6 I NTRO KIT, GEN 5, crtg as directed. 0 05/29/2023 Active Comment on above: as directed. Omnipod 5 G6-G7 Pods (Gen 5) subcutaneous cartridge (3 sources) Start: 01-10-2025 Omnipod 5 G6-G7 Pods (Gen 5) subcutaneous cartridge Omnipod 5 G6-G7 Pods (Gen 5) subcutaneous cartridge, 0 Refill(s), 72 Start Date: 01/10/25 Status: Ordered Medication Dispense Status: Completed Total Allowed Fills: 1 Fills Dispensed: 0 Start: 01-10-2025 Omnipod 5 G6-G 7 Pods (Gen 5) subcutaneous cartridge Omnipod 5 G6-G7 Pods (Gen 5) subcutaneous cartridge, 0 Refill(s), 72 Start Date: 01/10/25 Status: Ordered Repeat number: 1 ONETOUCH VERIO FLEX METER (20 sources) Start: 04-21-2023 ONETOUCH VERIO FLEX METER Use as directed to test metered glucose 04/21/2023 Active Start: 04-21-2023 ONETOUCH VERIO FLEX METER Use as directed to test metered glucose 0 04/21/2023 Active Comment on above: Use as directed to t est metered glucose oxyCODONE hydrochloride 5 mg oral tablet (4 sources) Opioid Agonist Start: 02-24-2024 End: 02-29-2024 take 1 tablet by mouth every four hours as needed for pain oxyCODONE (Roxicodone) 5 MG immediate release tablet Indications: S/P section Take 1 tablet (5 mg) by mouth every 4 hours as needed for moderate pain (4-6) for up to 5 days. 12 tablet 02/24/2024 02/29/2024 Active Start: 02-22-2024 End: 02-25-2024 take 1 tablet by mouth every four hours as needed for pain oxyCODONE (Roxicodone) immediate release tablet 5 mg predniSONE 20 mg oral tablet (3 sources) Start: 05-31-2023 take 40 mg by mouth once daily Prednisone Active 40 MG PO DAILY 14 May 31, 2023 12:00am Start: 05-30-2023 End: 05-31-2023 take 20 mg by mouth once daily Prednisone Discontinued 20 MG PO DAILY 4 May 30, 2023 12:00am May 31, 2023 7:28pm Vit-Fe Fumarate-FA ( 1+1 PO) (20 sources) take 1 tablet by schuyler th once daily Vit-Fe Fumarate-FA ( 1+1 PO) Take 1 tablet by mouth daily. Active take 1 tablet by mouth once james y Vit-Fe Fumarate-FA ( 1+1 PO) Take 1 tablet by mouth daily. 0 Active Vit-Fe Fumarate-FA ( VITAMINS PO) (3 sources) Vit-Fe Fumarate-FA ( VITAMINS PO) Take by mouth daily Active vitamin with Ca-Iron-FA 27-1 mg Tab (2 sources) take 1 tablet by schuyler th once daily vitamin with Ca-Iron-FA 27-1 mg Tab Indications: Take 1 (one) tablet by mouth daily Reasons: . 0 Active take 1 tablet by mouth once james y vitamin with Ca-Iron-FA 27-1 mg Tab Indications: Take 1 (one) tablet by mouth daily Reasons: . 0 propranolol hydrochloride 10 mg oral tablet (1 source) beta-Adrenergic Margo Start: 05-30-2022 take 15 mg by mouth once daily Propranolol Active 15 MG PO DAILY May 30, 2022 12:00am sulfamethoxazole 800 mg / trimethoprim 160 mg oral tablet (8 sources) Dihydrofolate Reductase Inhibitor Antibacterial, Sulfonamide Antimicrobial Start: 10-20-2022 End: 10-23-2022 take 1 tablet by mouth twice daily sulfamethoxazole -trimethoprim (BACTRIM DS) 800-160 mg per tablet Take 1 tablet by mouth twice daily for 3 days. 6 tablet 0 10/20/2022 10/23/2022 Active Start: 08-04-2022 End: 08-07-2022 take 1 tablet by mouth twice daily sulfamethoxazole-trimethoprim (BACTRIM D S) 800-160 mg per tablet Indications: Acute cystitis with hematuria Take 1 tablet by mouth twice daily for 3 days. 6 tablet 0 08/04/2022 08/07/2022 Active Start: 06-02-2022 End: 07-30-2022 take 1 tablet by mouth twice daily sulfamethoxazole-trimethoprim (BACTRIM DS,SEPTRA DS) 800-160 mg per tablet Take 1 tablet by mouth twice daily. 0 06/02/2022 07/30/2022 Discontinued Start: 12-23-2021 End: 12-28-2021 take 1 tablet by mouth twice daily sulfamethoxazole-trimethoprim (BACTRIM D S) 800-160 mg per tablet Take 1 tablet by mouth twice daily for 5 days. 10 tablet 0 12/23/2021 12/28/2021 Active Comment on above: Take 1 tablet by schuyler th twice daily for 5 days. Take 1 tablet by schuyler th twice daily. Take 1 tablet by schuyler th twice daily for 3 days. sulfamethoxazole-trime thoprim (BACTRIM) 0.04 MG / 0.2 MG oral syringe (1 source) sulfamethoxazole -t rimethoprim (BACTRIM) 0.04 MG / 0.2 MG oral syringe Take 0.04 mg by mouth once 0 Active tiZANidine 2 mg oral tablet (2 sources) Central alpha-2 Adrenergic Agonist Start: 03-03-20 End: 03-10-20 take 1 tablet by mouth every eight hours as needed tiZANidine (ZANAFLEX) 2 mg tablet Take 1 tablet by mouth every 8 hours as needed for up to 7 days. 14 tablet 03/03/2025 03/10/2025 Active traZODone hydrochloride 50 mg oral tablet (4 sources) Serotonin Reuptake Inhibitor Start: 10-26-19 23 take 50 mg by mouth at bedtime Trazodone Active 50 MG PO AT BEDTIME October 24, 2022 11:00pm ZAFEMY 150-35 MCG/24HR patch (4 sources) Start: 05-24-20 22 apply 1 dose transdermal route every week ZAFEMY 150-35 MCG/24HR patch Apply 1 Patch as directed one time a week. 0 05/24/2022 Active Completed/Discontinued Medications Medication Drug Class(es) Dates Sig (Normalized) Sig (Original) acetaminophen 325 mg oral tablet (18 sources) Start: 02-22-2024 End: 02-25-2024 take 1 tablet by mouth every six hours as needed 650 mg, Oral, Every 6 hours PRN, other, Pain (1-10), Starting on 02/22/24 at 0403, , Give in addition to any other pain medication ordered at same time for any pain indication. Maximum dose of acetaminophen is 4000mg from all sources in 24 hours. Alternate ibuprofen and acetaminophen every 3 hours. Start: 02-20-2024 End: 02-20-2024 1,000 mg, Oral, Once, On 02/20/24 at 2345, For 1 dose, Maximum dose of acetaminophen is 4000 mg from all sources in 24 hours. Start: 02-18-2024 End: 02-22-2024 take 1 tablet by mouth every four hours as needed for pain 650 mg, Oral, Every 4 hours PRN, mild pain (1-3), Fever GREATER than 100.5 F (38 C), Starting on Tatyana 02/18/24 at 1644, Maximum dose of acetaminophen is 4000 mg from all sources in 24 hours. Start: 02-18-2024 End: 02-18-2024 take 1 tablet by mouth every six hours as needed for pain 650 mg, Oral, Every 6 hours PRN, mild pain (1-3), Starting on Tatyana 02/18/24 at 1537, Maximum dose of acetaminophen is 4000 mg from all sources in 24 hours. Start: 01-07-2024 End: 01-10-2024 take 1 tablet by mouth every four hours as needed for pain 650 mg, Oral, Every 4 hours PRN, mild pain (1-3), Fever GREATER than 100.5 F (38 C), Starting on Tatyana 01/07/24 at 2015, Maximum dose of acetaminophen is 4000 mg from all sources in 24 hours. Start: 10-30-2023 End: 10-31-2023 take 1 tablet by mouth every four hours as needed for pain 650 mg, Oral, Every 4 hours PRN, mild pain (1-3), Fever GREATER than 100.5 F (38 C), Starting on Thu10/30/23 at 1304, Maximum dose of acetaminophen is 4000 mg from all sources in 24 hours. Start: 08-09-2023 End: 08-09-2023 take 1 tablet by mouth every four hours as needed for pain 650 mg, Oral, Every 4 hours PRN, mild pain (1-3), Fever GREATER than 100.5 F (38 C), Starting on Thu08/09/23 at 1515, Maximum dose of acetaminophen is 4000 mg from all sources in 24 hours. Start: 04-21-2023 End: 04-22-2023 acetaminophen (TYLENOL) tabl et 500 mg acetaminophen (T YLENOL) 325 MG tablet Take by mouth 0 Active acetaminophen 500 mg / caffeine 65 mg oral tablet (20 sources) Central Nervous System Stimulant, Methylxanthine Start: 02-10-2024 End: 02-10-2024 take 2 tablets by mouth once 2 tablet, Oral, Once, On Thu02/10/24 at 1230, For 1 dose take 1 tablet by schuyler th every six hours as needed acetaminophen-caffeine (EXCEDRIN TENSION HEADACHE) 500-65 mg tablet Take 1 tablet by mouth every 6 hours as needed. Active amoxicillin 500 mg oral capsule (6 sources) Penicillin-class Antibacterial Start: 02-18-2024 End: 02-23-2024 take 1 dose by mouth three times daily 500 mg, Oral, Every 8 hours scheduled (3 times per day), First dose on Thu02/22/24 at 0600, For 2 days, Suspected Indication (Select all that apply): Other, Other Abx Indication: Peridontal infection End: 02-25-2024 take 1 capsule by mouth three times daily amoxicillin (Amoxil) 250 MG capsule Take 1 capsule by mouth 3 times daily. 02/25/2024 Discontinued (Stop taking at discharge) ampicillin 500 mg oral capsule (6 sources) Penicillin-class Antibacterial Start: 08-15-2023 End: 05-05-2024 take 1 capsule by mouth three times daily ampicillin (PRINCIPEN) 500 mg capsule Take 1 capsule by mouth three times a day. 15 capsule 08/15/2023 05/05/2024 Discontinued (Course of therapy completed) Comment on above: Take 1 capsule by mouth three times a da y. aspirin 81 mg delayed release oral tablet (15 sources) Platelet Aggregation Inhibitor, Nonsteroidal Anti-inflammatory Drug Start: 08-31-2023 End: 02-25-2024 take 81 mg by mouth once daily 81 mg, Oral, Daily, First dose on Tatyana 02/18/24 at 1700, Do not crush, chew, or split. aspirin 81 mg ch ewable tablet Chew and Swallow 1 (one) tablet (81 mg total) daily . 0 Active bifidobacterium infantis 4 mg oral capsule (20 sources) End: 08-13-2023 Bifidobacterium Infantis (ALIGN) 4 mg cap Take by mouth. 0 08/13/2023 Discontinued (Course of therapy completed) Comment on above: Take by mouth. bisacodyl 5 mg delayed release oral tablet (2 sources) Stimulant Laxative Start: 03-05-2023 End: 04-20-2023 take 1 tablet by mouth once daily bisacodyl (DULCOLAX) 5 MG EC tablet Take 1 Tablet (5 mg) by mouth daily 25 Tablet 0 03/05/2023 04/20/2023 Discontinued (* Remove (Not on AVS)) brompheniramine maleate 0.4 mg/ml / dextromethorphan hydrobromide 2 mg/ml / pseudoephedrine hydrochloride 6 mg/ml oral solution (2 sources) alpha-Adrenergic Agonist, Uncompetitive R-hadybb-X-aspart ate Receptor Antagonist, Sigma-1 Agonist Start: 06-14-2023 End: 08-13-2023 take 10 mL by mouth every six hours as needed Brompheniramine-Ps eudoeph-DM (BROMFED DM) 2-30-10 mg/5 mL syrup Take 10 mL by mouth four times a day as needed. 200 mL 0 06/14/2023 08/13/2023 Discontinued (Course of therapy completed) Comment on above: Take 10 mL by mouth four times a day as needed. calcium chloride 0.0014 meq/ml / potassium chloride 0.004 meq/ml / sodium chloride 0.103 meq/ml / sodium lactate 0.028 meq/ml injectable solution (12 sources) Start: 02-21-2024 End: 02-22-2024 take 75 mL intravenously every hour 75 mL/hr, IntraVENous, Continuous, Starting on 02/21/24 at 1645, Pre-Delivery Start: 02-19-2024 End: 02-21-2024 500 mL, IntraVENous, at 500 mL/hr, Administer over 1 Hours, Once, On 02/20/24 at 2215, For 1 dose Start: 02-18-2024 End: 02-18-2024 1,000 mL, IntraVENous, at 50 0 mL/hr, Administer over 2 Hours, Once, On Tatyana 02/18/24 at 1400, For 1 dose 10 ml calcium gluconate 100 mg/ml injection (2 sources) Start: 02-21-2024 End: 02-25-2024 1 g, IntraVENous, PRN, For suspected magnesium toxicity or for respiratory rate less than 6 per minute., Starting on 02/21/24 at 1834, Administer slow IV push over 5 minutes. cholecalciferol 9.52 unt/ml / glucose 357 mg/ml oral gel (6 sources) Vitamin D Start: 02-18-2024 End: 02-25-2024 Start: 01-09-2024 End: 01-10-2024 15 g, Oral, As needed, low b lood sugar, Starting on 01/09/24 at 2225, If blood glucose less than 50 mg/dL and patient ALERT and NOT NPO, give 2 tubes glucose gel. If blood glucose less than 70 mg/dL and patient ALERT and NOT NPO, give 1 tube glucose gel. Repeat blood glucose in 15 minutes. If blood glucose is less than 70 mg/dL, repeat treatment and recheck blood glucose in 15 minutes x2 and notify provider. Start: 10-30-2023 End: 10-31-2023 glucose oral gel 15 g citric acid 66.8 mg/ml / sodium citrate 100 mg/ml oral solution (2 sources) Calculi Dissolution Agent, Anti-coagulant Start: 02-21-2024 End: 02-21-2024 take 30 mL by mouth once 30 mL, Oral, Once, On 02/21/24 at 2115, For 1 dose, Pre-Delivery, Give immediately prior to transfer to surgery. cyproheptadine hydrochloride 4 mg oral tablet (20 sources) Start: 10-01-2021 End: 08-13-2023 cyproheptadine (PERIACTIN) 4 mg tablet Take 4 mg by mouth. 0 10/01/2021 08/13/2023 Discontinued (Course of therapy completed) Comment on above: Take 4 mg by mouth. 1 ml diphenhydrAMINE hydrochloride 50 mg/ml cartridge (2 sources) Histamine-1 Receptor Antagonist Start: 02-22-2024 End: 02-25-2024 take 25 mg intravenously every six hours as needed 0.4 ml enoxaparin sodium 100 mg/ml prefilled syringe (2 sources) Low Molecular Weight Heparin Start: 02-22-2024 End: 02-25-2024 inject 40 mg by subcutaneous injection every twenty-four hours, then inject 40 mg by subcutaneous injection twice daily 40 mg, SubCUTAneous, Every 24 hours scheduled (Daily), First dose on 02/22/24 at 0900, Contact prescriber to increase to 40 mg twice daily after 20 weeks gestation., Indication of Use: Prophylaxis-DVT/PE , Indications: Prophylaxis of Venous Thromboembolism escitalopram 10 mg oral tablet (20 sources) Serotonin Reuptake Inhibitor Start: 01-31-2022 End: 08-13-2023 take 1 tablet by mouth once daily at bedtime escitalopram oxalate (LEXAPRO) 10 mg tablet Take 10 mg by mouth daily at bedtime. 0 01/31/2022 08/13/2023 Discontinued (Discontinued by Patient) Comment on above: Take 10 mg by mouth daily at bedtime. Ethinyl Estradiol / Ferrous fumarate / Norethindrone (2 sources) Estrogen Start: 06-10-2024 End: 06-13-2024 take 1 tablet by mouth once daily, then take 0.05 tablet by mouth once Norethin Marylu-Eth Estrad-FE (LOESTRIN FE 1/20) 1 mg-20 mcg (21)/75 mg (7) per tablet Take 1 tablet by mouth once daily. 84 tablet 3 06/10/2024 06/13/2024 Discontinued Start: 06-10-2024 End: 05-12-2025 take 1 tablet by mouth once daily, then take 0.05 tablet by mouth once Norethin Marylu-Eth Estrad-FE (LOESTRIN FE 1/20) 1 mg-20 mcg (21)/75 mg (7) per tablet Take 1 tablet by mouth once daily. 84 tablet 3 06/10/2024 05/12/2025 Active 168 hr ethinyl estradiol 0.53836 mg/hr / norelgestromin 0.28254 mg/hr transdermal system (20 sources) Progestin, Estrogen Start: 09-26-2024 End: 08-28-2025 apply 1 dose transdermal route every week Ethinyl Estradiol-Norelgestrom 150-35 mcg/24 hr patch Apply 1 Patch as directed one time a week. 12 Patch 3 09/26/2024 12/13/2024 Discontinued (Side Effects) Start: 08-18-2022 Norelgestromin -Ethin.Estradiol (Zafemy) 150-35 mcg/24 hr patch weekly Active 1 PATCH TOPICAL EVERY WEEK August 18, 2022 12:00am Start: 01-03-2022 End: 08-13-2023 apply 1 dose transdermal route every week Ethinyl Estradiol-Norelgestrom (XULANE) 150-35 mcg/24 hr patch Apply 1 Patch as directed one time a week. 3 Patch 7 02/16/2023 08/13/2023 Discontinued (Course of therapy completed) Comment on above: Apply 1 Patch as dir ected one time a week. Ethinyl Estradiol / Norethindrone (18 sources) Estrogen Start: 2 End: 3 take 1 tablet by mouth once daily, then take 0.05 tablet by mouth once Norethindrone Acet-Ethinyl Est (LOESTRIN 07/18, 21,) 1-20 mg-mcg per tablet Take 1 tablet by mouth once daily. 28 tablet 12 08/26/2021 02/16/2023 Discontinued Start: 08-26-2021 take 1 tablet by schuyler th once daily, then take 0.05 tablet by mouth once Norethindrone Acet-Ethinyl Est (LOESTRIN 07/18, ,) 1-20 mg-mcg per tablet Take 1 tablet by mouth once daily. 28 tablet 12 08/26/2021 Active Comment on above: Take 1 tablet by schuyler th once daily. FLUoxetine 20 mg oral capsule (20 sources) Serotonin Reuptake Inhibitor Start: 10-01-2021 End: 05-05-2024 FLUoxetine (PROZAC) 20 mg capsule Take 20 mg by mouth. 10/01/2021 05/05/2024 Discontinued (Course of therapy completed) Comment on above: Take 20 mg by mouth. 150 ml glucose 50 mg/ml injection (13 sources) Start: 02-18-2024 End: 02-25-2024 Start: 02-18-2024 End: 02-25-2024 Start: 01-09-2024 End: 01-10-2024 12.5 g, IntraVENous, PRN, lo w blood sugar, Blood glucose less than 70 mg/dL and patient NOT ALERT or NPO., Starting on 01/09/24 at 2225, If patient does not respond within 5 minutes, repeat dose x1. Start D5W at 100 mL/hour until ordering provider can be reached. Repeat blood glucose in 15 minutes. If blood glucose is less than 70 mg/dL, repeat treatment and recheck blood glucose in 15 minutes x2. If using Glucostabilizer, dose as instructed per system. Start: 01-09-2024 End: 01-10-2024 100 mL/hr, IntraVENous, PRN, Blood sugar less than 70mg/dL, Starting on 01/09/24 at 2225, Start infusion following administration of dextrose 50% or glucagon. Start: 10-30-2023 End: 10-31-2023 dextrose 50 % solution 12.5 g Start: 10-30-2023 End: 10-31-2023 dextrose 5 % infusion Start: 04-20-2023 End: 04-22-2023 25 g (0.392 g/kg/DOSE), Intr avenous, PRN, Starting on 04/20/23 at 2054, Until Thu04/22/23 at 1434, Administer over 3-5 Minutes, Other, for hypoglycemia (blood sugar less than 70) and patient not alert 500 ml glucose 50 mg/ml / potassium chloride 0.02 meq/ml / sodium chloride 4.5 mg/ml injection (1 source) Start: 04-20-2023 End: 04-21-2023 dextrose 5 % and 0.45 % NaCl with KCl 20 mEq/L IV HYDROmorphone (Dilaudid) injection 0.25 mg (2 sources) Start: 02-22-2024 End: 02-25-2024 HYDROmorphone (Dilaudid) injection 0.25 mg hydrOXYzine pamoate 25 mg oral capsule (6 sources) Antihistamine Start: 02-20-2024 End: 02-20-2024 take 50 mg by mouth once 50 mg, Oral, Once, On 02/20/24 at 2345, For 1 dose Start: 06-01-2023 End: 06-14-2023 take 1 tablet by mouth every eight hours as needed hydrOXYzine HCl (ATARAX) 25 mg tablet Take 1 Tablet (25 mg) by mouth every 8 hours as needed for Itching or Allergies 0 06/01/2023 06/14/2023 Discontinued (Course of therapy completed) Comment on above: Take 1 Tablet (25 mg ) by mouth every 8 hours as needed for Itching or Allergies insulin Lispro (HumaLOG) injection (1 source) Start: 04-20-2023 End: 04-20-2023 insulin Lispro (HumaLOG) injection insulin lispro (HumaLOG) patient supplied pump (2 sources) Start: 02-18-2024 End: 02-25-2024 SubCUTAneous, Continuous, Starting on Thu02/18/24 at 1700, Inpatient insulin pump instructions: Continue with pump settings per note Insulin Pump - (Patient Supplied) (2 sources) Start: 01-09-2024 End: 01-10-2024 SubCUTAneous, Continuous, Starting on Thu01/09/24 at 2145, Basal Rate(s): Max basal rate 2.5 units per hour 0000 0.65 0600 0.55 1000 0.6 2000 0.65 Bolus units per carbohydrate intake (insulin:CHO ratio): 0000 8.0 0600 6.0 1000 1.5 1700 1.5 Correction (insulin sensitivity) factor (mg/dL per unit of insulin): 0000 35 0600 25 2000 25 Active Insulin Time: 2 hours Estimated total daily insulin dose (units): 130-150 units, Pump Type (Brand/Model): Omnipod, What type of insulin is the patient using in their insulin pump? Insulin lispro iopamidol (Isovue-370) 76 % injection 75 mL (2 sources) Start: 09-06-2023 End: 09-06-2023 iopamidol (Isovue-370) 76 % injection 75 mL iron sucrose (Venofer) 200 mg in sodium chloride 0.9 % 100 mL IVPB (6 sources) Start: 02-23-2024 End: 02-25-2024 200 mg, IntraVENous, at 300 mL/hr, Administer over 20 Minutes, Every 24 hours, First dose on Thu02/23/24 at 0800, For 3 doses, Observe for signs and symptoms of hypersensitivity and/or anaphylactic-type reactions per institutional standard during and following administration. Start: 02-19-2024 End: 02-21-2024 200 mg, IntraVENous, at 300 mL/hr, Administer over 20 Minutes, Every 24 hours, First dose on Thu02/19/24 at 1530, For 3 doses, Observe for signs and symptoms of hypersensitivity and/or anaphylactic-type reactions per institutional standard during and following administration. Start: 01-08-2024 End: 01-10-2024 200 mg, IntraVENous, at 100 mL/hr, Administer over 60 Minutes, Every 24 hours, First dose on Thu01/08/24 at 0715, For 3 doses, Observe for signs and symptoms of hypersensitivity and/or anaphylactic-type reactions per institutional standard during and following administration. 1 ml ketorolac tromethamine 30 mg/ml cartridge (4 sources) Nonsteroidal Anti-inflammatory Drug, Cyclooxygenase Inhibitor Start: 02-22-2024 End: 02-23-2024 take 30 mg intravenously every six hours 30 mg, IntraVENous, Every 6 hours, First dose on Thu02/22/24 at 0415, For 4 doses, , This may be discontinued prior to 4 doses if patient pain is well controlled and able to take PO ibuprofen. Start: 02-21-2024 End: 02-22-2024 inject 60 mg by intramuscular injection once 60 mg, IntraMUSCular, Once, On Thu02/21/24 at 2330, For 1 dose, Post-Delivery, Postop in recovery room labetalol hydrochloride 5 mg/ml injectable solution (2 sources) beta-Adrenergic Margo Start: 02-21-2024 End: 02-21-2024 20 mg, IntraVENous, Once, On Thu02/21/24 at 2045, For 1 dose Start: 02-21-2024 End: 02-21-2024 20 mg, IntraVENous, Once, On Thu02/21/24 at 2045, For 1 dose lanolin 1000 mg/ml topical cream (2 sources) Start: 02-22-2024 End: 02-25-2024 lidocaine 0.04 mg/mg medicated patch (20 sources) Antiarrhythmic, Amide Local Anesthetic Start: 02-24-2024 End: 02-25-2024 1 patch, TransDERmal, Administer over 12 Hours, Once, On Thu02/24/24 at 2130, For 1 dose, Apply patch to affected area. Patch may remain in place for up to 12 hours in any 24 hour period. Start: 05-29-2022 End: 05-05-2024 LIDOCAINE VISCOUS 2 % soluti on Indications: Sore throat Take 5- 10 mL by mouth three times daily as needed. 100 mL 2 05/29/2022 05/05/2024 Discontinued (Course of therapy completed) Comment on above: Take 5-10 mL by mout h three times daily as needed. loratadine 10 mg oral tablet (20 sources) Start: 11-06-19 End: 06-13-20 loratadine (CLARITIN) 10 mg tablet Take 10 mg by mouth. 11/05/2018 06/13/2024 Discontinued Comment on above: Take 10 mg by mouth. 500 ml magnesium sulfate 40 mg/ml injection (4 sources) Start: 02-21-20 End: 02-22-20 take 20 g intravenously every hour 2,000 mg/hr (50 mL/hr), IntraVENous, Continuous, Starting on 02/21/24 at 1900, Pre-Infusion: Assess baseline vital signs (blood pressure, pulse, pulse oximetry, respirations, and temperature), breath sounds, strict intake and output, neurologic status (deep tendon reflexes, presence or absence of clonus, level of consciousness (LOC), presence of headaches/visual disturbances, presence/absence of epigastric pain, and if applicable Heart Rate/Contractions (continuous monitoring). Loading Dose/Infusion: - Stay with the patient during the loading dose and the first hour of the infusion to monitor for adverse reactions. - Continuously monitor the patient's pulse oximetry. - Monitor the patient's vital signs, deep tendon reflexes, level of consciousness every 15 minutes for the first hour after the start of the loading dose, then every 30 minutes for 1 hour, then every 4 hours thereafter unless more frequent assessments are warranted based on the patient's condition. After delivery, run oxytocin per post delivery orders, then resume 125cc/hr total IV fluid restriction. Notify care provider immediately of absent deep tendon reflexes, a urine output of less than 30 mL/hour, respirations of less than 10 breaths/minute, or an oxygen saturation level of less than 95% Grams to milligrams conversion table: 1 gram = 1000 mg 2 grams = 2000 mg 4 grams = 4000 mg 6 grams = 6000 mg 20 grams = 20,000 mg Start: 02-21-2024 End: 02-21-2024 4,000 mg, IntraVENous, Admin ister over 20 Minutes, Once, On 02/21/24 at 1845, For 1 dose, Pre-Infusion: Assess baseline vital signs (blood pressure, pulse, pulse oximetry, respirations, and temperature), breath sounds, strict intake and output, neurologic status (deep tendon reflexes, presence or absence of clonus, level of consciousness (LOC), presence of headaches/visual disturbances, presence/absence of epigastric pain, and if applicable Heart Rate/Contractions (continuous monitoring). Loading Dose/Infusion: - Stay with the patient during the loading dose and the first hour of the infusion to monitor for adverse reactions. - Continuously monitor the patient's pulse oximetry. - Monitor the patient's vital signs, deep tendon reflexes, level of consciousness every 15 minutes for the first hour after the start of the loading dose, then every 30 minutes for 1 hour, then every 4 hours thereafter unless more frequent assessments are warranted based on the patient's condition. Notify care provider immediately of absent deep tendon reflexes, a urine output of less than 30 mL/hour, respirations of less than 10 breaths/minute, or an oxygen saturation level of less than 95% Grams to milligrams conversion table: 1 gram = 1000 mg 2 grams = 2000 mg 4 grams = 4000 mg 6 grams = 6000 mg 20 grams = 20,000 mg metroNIDAZOLE 500 mg oral tablet (4 sources) Nitroimidazole Antimicrobial Start: 09-08-2024 End: 09-15-2024 take 1 tablet by mouth twice daily metroNIDAZOLE (FLAGYL) 500 mg tablet Take 1 tablet by mouth two times a day for 7 days. 14 tablet 09/08/2024 09/10/2024 Discontinued 1 ml morphine sulfate 4 mg/ml cartridge (4 sources) Opioid Agonist Start: 02-21-2024 End: 02-21-2024 take 1 dose by mouth every hour 4 mg, IntraVENous, Once, On 02/21/24 at 2100, For 1 dose, If oral and IV narcotics ordered, use oral first and only use IV if oral is ineffective or cannot take oral. Do Not give oral and IV within 1 hour of each other unless specifically ordered. Start: 02-21-2024 End: 02-21-2024 take 1 dose by mouth every hour 4 mg, IntraVENous, Once, On 02/21/24 at 2100, For 1 dose, If oral and IV narcotics ordered, use oral first and only use IV if oral is ineffective or cannot take oral. Do Not give oral and IV within 1 hour of each other unless specifically ordered. Start: 02-21-2024 End: 02-21-2024 Starting on 02/21/24 at 2 044, For 1 dose, Sherie Blanco: cabinet override NaCl 0.9% 1,000 mL with potassium chloride 20 mEq IV (1 source) Start: 04-20-2023 End: 04-20-2023 NaCl 0.9% 1,000 mL with potassium chloride 20 mEq IV NaCl 0.9% 677 mL in 677 mL IV Bolus (1 source) Start: 06-01-2023 End: 06-01-2023 NaCl 0.9% 677 mL in 677 mL IV Bolus 1 ml naloxone hydrochloride 0.4 mg/ml injection (2 sources) Opioid Antagonist Start: 02-22-2024 End: 02-25-2024 0.4 mg, IntraVENous, Every 5 min PRN, opioid reversal, respiratory depression, Starting on Thu02/22/24 at 0410, +++ For RR NIFEdipine 30 mg osmotic 24 hr extended release oral tablet (20 sources) Dihydropyridine Calcium Channel Margo Start: 02-24-2024 End: 02-25-2024 take 60 mg by mouth once daily 60 mg, Oral, Nightly, First dose (after last modification) on Thu02/24/24 at 2100, Do not crush, chew, or split. Start: 02-24-2024 End: 04-27-2025 take 2 tablets by mouth once daily NIFEdipine XL (Procardia XL) 30 MG 24 hr tablet Take 2 tablets (60 mg) by mouth Nightly. Do not crush, chew, or split. 60 tablet 02/24/2024 4:01 PM EDT 02/24/2024 04/27/2025 Discontinued (Therapy completed) Start: 02-22-2024 End: 02-24-2024 take 30 mg by mouth once daily 30 mg, Oral, Nightly, F irst dose (after last modification) on Thu02/22/24 at 2100, Do not crush, chew, or split. nitrofurantoin, macrocrystals 25 mg / nitrofurantoin, monohydrate 75 mg oral capsule (4 sources) Nitrofuran Antibacterial Start: 07-30-2022 End: 08-04-2022 take 1 capsule by mouth twice daily nitrofurantoin monohydrate and macrocrystal (MACROBID) 100 mg capsule Indications: Urinary frequency Take 1 capsule by mouth twice daily for 5 days. 10 capsule 0 07/30/2022 08/04/2022 Start: 05-05-2022 End: 11-12-2022 take 1 capsule by mouth twice daily nitrofurantoin monohydrate and macrocrystal (MACROBID) 100 mg capsule Take 1 capsule by mouth twice daily for 5 days. 10 capsule 0 05/05/2022 05/10/2022 Active Comment on above: Take 1 capsule by mo [facility] twice daily for 5 days. NONFORMULARY 1 Patch (1 source) Start: 04-20-20 End: 04-22-20 apply 1 dose transdermal route every week 1 Patch WEEKLY, Transdermal, First dose on Thu04/20/23 at 2330 Brand Name: Nereyda Generic name: Norelgestromin-ethi n.estradiol Specific therapeutic reason for requesting non-formulary or high cost medication: To prevent interruption of course of therapy initiated prior to admission (Home medication) Attending Provider: DARIAN ATKINSON Omnipod 5 G6 Pods (Gen 5) subcutaneous cartridge (1 source) Start: 05-12-20 Omnipod 5 G6 Pods (Gen 5) subcutaneous cartridge Omnipod 5 G6 Pods (Gen 5) subcutaneous cartridge, 0 Refill(s), 68.2 Start Date: 05/12/24 Status: Ordered 2 ml ondansetron 2 mg/ml injection (14 sources) Serotonin-3 Receptor Antagonist Start: 02-21-20 End: 02-22-20 take 4 mg intravenously every six hours as needed for nausea 4 mg, IntraVENous, Every 6 hours PRN, nausea, Starting on Thu02/21/24 at 1628, Pre-Delivery Start: 09-22-2023 take 1 tablet by [facility] every six hours as needed ondansetron (ZOFRAN-ODT) 4 MG disintegrating tablet Take 1 Tablet (4 mg) by mouth every 6 hours as needed 09/22/2023 Active Start: 09-21-2023 End: 09-22-2023 take 4 mg intravenously every six hours as needed for nausea and vomiting 4 mg, Intravenous, Every 6 hours PRN, nausea, vomiting, Starting on Thu09/21/23 at 1848 Start: 08-09-2023 End: 08-09-2023 ondansetron (Zofran) injecti on 4 mg Start: 06-15-2023 End: 06-20-2023 take 1 tablet by mouth every eight hours Zofran ODT use ondansetron oral tablet, disintegrating Dose : 4 mg =, Oral, q8h, # 15 tab(s), 0 Refill(s) Start Date: 06/15/23 Stop Date: 06/20/23 Status: Ordered Start: 06-01-2023 End: 06-01-2023 ondansetron (ZOFRAN-ODT) disintegrating tablet 4 mg Start: 05-30-2022 take 4 mg by mouth e very six hours Ondansetron Hcl Active 4 MG PO EVERY 6 HOURS May 30, 2022 12:00am ondansetron ODT (Zofran-ODT) disintegrating tablet 4 mg (8 sources) Start: 02-22-2024 End: 02-25-2024 take 1 tablet by mouth every eight hours as needed for nausea and vomiting ondansetron ODT (Zofran-ODT) disintegrating tablet 4 mg Start: 01-07-2024 End: 01-10-2024 take 1 tablet by mouth every eight hours as needed for nausea and vomiting ondansetron ODT (Zofran-ODT) disintegrating tablet 4 mg Start: 10-30-2023 End: 10-31-2023 take 1 tablet by mouth every eight hours as needed for nausea and vomiting ondansetron ODT (Zofran-ODT) disintegrating tablet 4 mg Start: 08-09-2023 End: 08-09-2023 take 1 tablet by mouth every eight hours as needed for nausea and vomiting ondansetron ODT (Zofran-ODT) disintegrating tablet 4 mg oxytocin (Pitocin) 30 units in 500 mL infusion (2 sources) Start: 02-21-2024 End: 02-22-2024 125 elvin-units/min (125 mL/hr), IntraVENous, Continuous PRN, Bleeding, Starting on 02/21/24 at 2107, Pre-Delivery, Post- use ONLY after delivery of baby/ excessive bleeding/ uterine atony. Given after delivery of placenta AND the initial 30 unit bolus. Bag 2 of 2. 125 cc/hr (125 mu/min) for an additional infusion of 500cc (30 units) phenazopyridine hydrochlorid e 200 mg delayed release oral tablet (3 sources) Start: 08-20-2022 End: 04-20-2023 phenazopyridine (PYRIDIUM) 2 00 MG tablet Take by mouth 0 08/20/2022 04/20/2023 Discontinued (* Remove (Not on AVS)) Start: 08-20-2022 take 1 tablet by schuyler th three times daily Phenazopyridine (Pyridium) 200 mg tablet Active 200 MG PO THREE TIMES A DAY 15 01August 20, 2022 12:00am PNV no.95/ferrous fum/folic ac ( ORAL) (9 sources) End: 05-05-2024 PNV no.95/ferrous fum/folic ac ( ORAL) Take by mouth. 05/05/2024 Discontinued PNV no.95/ferrou s fum/folic ac ( ORAL) Take by mouth. 0 Active Comment on above: Take by mouth. polyethylene glycol [id number] [id number] mg powder for oral solution (2 sources) Osmotic Laxative Start: 3 End: 3 take 17 g by mouth once daily polyethylene glycol (MIRALAX;GLYCOLAX) 17 GM/SCOOP powder Take 17 g by mouth daily 578 g 2 03/05/2023 04/20/2023 Discontinued (* Remove (Not on AVS)) microencapsulated potassium chloride 10 meq extended release oral tablet (4 sources) Start: 4 End: 4 10 mEq, Oral, Daily, First dose on 01/02/24 at 0900, Best given with food and plenty of water to minimize gastric irritation. Do not crush or chew. Start: 08-09-2023 End: 08-09-2023 potassium chloride (Klor-Con ) packet 20 mEq vitamin tablet (10 sources) Start: 02-22-2024 End: 02-25-2024 Start: 02-18-2024 End: 02-22-2024 take 1 tablet by mouth once daily 1 tablet, Oral, James y, First dose on Tatyana 02/18/24 at 1700 Start: 01-07-2024 End: 01-10-2024 take 1 tablet by mouth once daily 1 tablet, Oral, James y, First dose on Tatyana 01/07/24 at 2030 Start: 10-30-2023 End: 10-31-2023 take 1 tablet by mouth once daily 1 tablet, Oral, James y, First dose on Thu10/30/23 at 1315 Start: 08-09-2023 End: 08-09-2023 take 1 tablet by mouth once daily 1 tablet, Oral, James y, First dose on 08/09/23 at 1530 promethazine hydrochloride 25 mg oral tablet (5 sources) Phenothiazine Start: 04-15-2023 End: 06-14-2023 take 1 tablet by mouth every six hours as needed promethazine (PHENERGAN) 25 mg tablet Indications: Nausea and vomiting, unspecified vomiting type Take 1 tablet by mouth every 6 hours as needed. 12 tablet 0 04/15/2023 06/14/2023 Discontinued (Course of therapy completed) Comment on above: Take 1 tablet by schuyler th every 6 hours as needed. simethicone 80 mg chewable tablet (2 sources) Start: 02-22-2024 End: 02-25-2024 take 1 tablet by mouth every six hours as needed 5 ml sodium chloride 9 mg/ml injection (20 sources) Start: 02-22-2024 End: 02-25-2024 5-40 mL, IntraVENous, Every 12 hours scheduled (2 times per day), First dose on Thu02/22/24 at 0900, , or Line Patency: Peripheral IV = 5 mL; Midline or Central Line = 10 mL/lumen. If following IV push medication, administer flush at same rate as the IV push. Flush volume is determined by type of infusion therapy being given. For non-viscous solutions use: Peripheral IV = 5 mL Midline or Central Line = 10 mL/lumen For viscous solutions (i.e. blood components, parenteral nutrition, contrast media, or after obtaining blood sample) use: Peripheral IV = 10 mL Midline or Central Line = 20 mL/lumen Start: 02-22-2024 End: 02-25-2024 Start: 02-22-2024 End: 02-25-2024 5-40 mL, IntraVENous, PRN, l ine care, After every IV line use, Starting on Thu02/22/24 at 0403, , or Line Patency: Peripheral IV = 5 mL; Midline or Central Line = 10 mL/lumen. If following IV push medication, administer flush at same rate as the IV push. Flush volume is determined by type of infusion therapy being given. For non-viscous solutions use: Peripheral IV = 5 mL Midline or Central Line = 10 mL/lumen For viscous solutions (i.e. blood components, parenteral nutrition, contrast media, or after obtaining blood sample) use: Peripheral IV = 10 mL Midline or Central Line = 20 mL/lumen Start: 02-18-2024 End: 02-21-2024 10 mL, IntraVENous, Every 12 hours scheduled (2 times per day), First dose on Thu02/18/24 at 2099 Start: 01-07-2024 End: 01-10-2024 10 mL, IntraVENous, Every 12 hours scheduled (2 times per day), First dose on Thu01/07/24 at 2100 Start: 01-07-2024 End: 01-10-2024 take 100 mL intravenously every hour as needed, then take 20 mL intravenously every hour as needed 5-250 mL/hr, IntraVENous, PRN, if patient receiving piggyback infusions and maintenance fluids are not ordered OR KVO fluids to protect IV site / prevent frequent line interruptions/ long duration, Starting on Thu01/07/24 at 2014, For piggyback infusion, administer at same rate as piggyback for a total of 25 mL. Enter 25 mL into dose field and piggyback rate into rate field of order. If piggyback is infusing at a rate less than 100 mL/hr, enter 25 mL into dose field and 100 mL/hr into rate field of order. For KVO fluids, enter rate of 20 mL/hr or less into rate field of order. Start: 01-07-2024 End: 01-10-2024 take 10 mL intravenously once as needed 10 mL, IntraVENous, PRN, line care, Starting on Thu01/07/24 at 2014, After every IV line use Start: 10-30-2023 End: 10-31-2023 10 mL, IntraVENous, Every 12 hours scheduled (2 times per day), First dose on Thu10/30/23 at 2100 Start: 10-30-2023 End: 10-31-2023 take 100 mL intravenously every hour as needed, then take 20 mL intravenously every hour as needed 5-250 mL/hr, IntraVENous, PRN, if patient receiving piggyback infusions and maintenance fluids are not ordered OR KVO fluids to protect IV site / prevent frequent line interruptions/ long duration, Starting on Thu10/30/23 at 1304, For piggyback infusion, administer at same rate as piggyback for a total of 25 mL. Enter 25 mL into dose field and piggyback rate into rate field of order. If piggyback is infusing at a rate less than 100 mL/hr, enter 25 mL into dose field and 100 mL/hr into rate field of order. For KVO fluids, enter rate of 20 mL/hr or less into rate field of order. Start: 10-30-2023 End: 10-31-2023 take 10 mL intravenously once as needed 10 mL, IntraVENous, PRN, line care, Starting on Thu10/30/23 at 1304, After every IV line use Start: 09-21-2023 End: 09-22-2023 sodium chloride (PF) (NS) fl ush 5 mL Start: 09-21-2023 End: 09-22-2023 take 125 mL intravenously every hour 125 mL/hr, Intravenous, Continuous, Starting on Thu09/21/23 at 1945 Start: 09-21-2023 End: 09-22-2023 sodium chloride (PF) (NS) fl ush 5 mL Start: 08-09-2023 End: 08-09-2023 10 mL, IntraVENous, Every 12 hours scheduled (2 times per day), First dose on Thu08/09/23 at 2100 Start: 08-09-2023 End: 08-09-2023 sodium chloride 0.9 % bolus 1,000 mL Start: 08-09-2023 End: 08-09-2023 take 100 mL intravenously every hour as needed, then take 20 mL intravenously every hour as needed 5-250 mL/hr, IntraVENous, PRN, if patient receiving piggyback infusions and maintenance fluids are not ordered OR KVO fluids to protect IV site / prevent frequent line interruptions/ long duration, Starting on Thu08/09/23 at 1515, For piggyback infusion, administer at same rate as piggyback for a total of 25 mL. Enter 25 mL into dose field and piggyback rate into rate field of order. If piggyback is infusing at a rate less than 100 mL/hr, enter 25 mL into dose field and 100 mL/hr into rate field of order. For KVO fluids, enter rate of 20 mL/hr or less into rate field of order. Start: 08-09-2023 End: 08-09-2023 take 10 mL intravenously once as needed 10 mL, IntraVENous, PRN, line care, Starting on Thu08/09/23 at 1515, After every IV line use Start: 04-20-2023 End: 04-22-2023 30 mL PRN (0.47 ml/kg/DOSE), Intravenous, at 0-999 mL/hr, Flush IV line after medication IVPB bag if given., Starting on 04/20/23 at 2054, For 90 days Flush IV line after medication IVPB bag if given. Start: 04-20-2023 End: 04-22-2023 10 mL PRN (0.157 ml/kg/DOSE) , Intravenous, at 0-999 mL/hr, Line Care, For mixture of medications, Starting on Thu04/20/23 at 2054, For 90 days For mixture of medications Start: 04-20-2023 End: 04-22-2023 2 mL EVERY 8 HOURS (0.094 mL/kg/DAY), Intravenous, at 0-999 mL/hr, First dose on 04/20/23 at 2130, For 90 days Start: 04-20-2023 End: 04-20-2023 NaCl 0.9% IV Start: 04-20-2023 End: 04-22-2023 NaCl 0.9% PosiFlush 10 mL Start: 06-09-2022 End: 06-09-2022 NaCl 0.9% IV Start: 06-09-2022 End: 06-09-2022 NaCl 0.9% PosiFlush 10 mL subcutaneous insulin pump Misc (1 source) Start: 09-21-2023 End: 09-22-2023 subcutaneous insulin pump Misc triamcinolone acetonide 0.001 mg/mg topical ointment (20 sources) Corticosteroid Start: 09-11-2022 End: 05-05-2024 triamcinolone acetonide (KENALOG) 0.1 % ointment Apply to affected area twice daily. For up to 2 weeks 30 g 09/11/2022 05/05/2024 Discontinued Start: 09-11-2022 End: 04-20-2023 triamcinolone (KENALOG) 0.1 % ointment Apply to affected area 2 times daily 0 09/11/2022 04/20/2023 Discontinued (* Remove (Not on AVS)) Comment on above: Apply to affected ar ea twice daily. For up to 2 weeks water 1000 mg/ml injectable solution (1 source) Start: 3 End: 3 10 mL (0.157 ml/kg/DOSE), Intravenous, PRN, Starting on Thu04/20/23 at 2054, Until Thu04/22/23 at 1434, For mixture of medications For mixture of medications ZAFEMY 150-35 mcg/24 hr patch (1 source) End: apply 1 dose transdermal route every week ZAFEMY 150-35 mcg/24 hr patch Apply 1 Patch as directed one time a week. 06/10/2024 Discontinued Problems Active Problems Problem Classification Problem Date Documented Date Episodic/Chronic Abdominal pain (20 sources) Abdominal pain; Translations: [Unspecified abdominal pain] Onset: 02-12-2010 Resolved: 08-17-2023 02-12-2010 Episodic Administrative/social admission (1 source) Worried well; Translations: [Person with feared health complaint in whom no diagnosis is made] Episodic Allergic reactions (11 sources) Vulval eczema; Translations: [Dermatitis, unspecified] Onset: 06-07-2023 Resolved: 11-12-2023 Episodic Anxiety disorders (8 sources) Acute stress disorder; Translations: [Acute stress reaction] Onset: 10-01-2021 Chronic Bacterial infection; unspecified site (1 source) Other specified bacterial agents as the cause of diseases classified elsewhere; Translations: [Bacterial sinusitis] Onset: 04-10-2025 Episodic Calculus of urinary tract (17 sources) Urolithiasis ; Translations: [Urinary calculus, unspecified] Onset: 03-05-2023 08-18-2022 Episodic Coagulation and hemorrhagic disorders (1 source) Easy bruising; Translations: [Spontaneous ecchymoses] 05-28-2023 Episodic Conditions associated with dizziness or vertigo (1 source) Dizziness; Translations: [Dizziness and giddiness] 06-24-2024 Episodic Diabetes mellitus with complications (3 sources) Hyperglycemia due to type 1 diabetes mellitus; Translations: [Type 1 diabetes mellitus with hyperglycemia] Onset: 03-31-2025 03-31-2025 Chronic Diabetes mellitus without complication (19 sources) Newly diagnosed diabetes; Translations: [Type 2 diabetes mellitus without complications] Onset: 04-22-2023 Resolved: 08-20-2023 04-22-2023 Chronic Diabetes or abnormal glucose tolerance complicating ; childbirth; or the puerperium (20 sources) Pre-existing type 1 diabetes mellitus in ; Translations: [Pre-existing type 1 diabetes mellitus, in , unspecified trimester] Onset: 08-09-2023 Resolved: 06-10-2024 08-09-2023 Chronic E Codes: Adverse effects of medical drugs (1 source) Adverse reaction to drug; Translations: [Adverse effect of unspecified drugs, medicaments and biological substances, initial encounter] 09-10-2024 Episodic Fluid and electrolyte disorders (9 sources) Dehydration; Translations: [Dehydration] Onset: 11-27-2009 Resolved: 09-28-2023 09-21-2023 Episodic Fracture of lower limb (1 source) Closed fracture of talus; Translations: [Nondisplaced avulsion fracture (chip fracture) of right talus, initial encounter for closed fracture] Episodic Genitourinary symptoms and ill-defined conditions (9 sources) Dysuria; Translations: [Dysuria] Episodic Headache; including migraine (1 source) Tension-type headache; Translations: [Tension-type headache, unspecified, not intractable] Chronic Hemorrhage during ; abruptio placenta; placenta previa (5 sources) Other antepartum hemorrhage, first trimester; Translations: [Antepartum hemorrhage] Onset: 08-02-2023 Episodic Immunizations and screening for infectious disease (3 sources) Patient encounter status; Translations: [Encounter for screening for infections with a predominantly sexual mode of transmission] Episodic Inflammatory diseases of female pelvic organs (1 source) Bacterial vaginosis; Translations: [Acute vaginitis] 09-13-2024 Episodic Menstrual disorders (18 sources) Disorder of menstruation; Translations: [Irregular menstruation, unspecified] Onset: 12-13-2024 Chronic Mycoses (8 sources) Candidiasis of vagina; Translations: [Vaginal yeast infection] Onset: 04-27-2025 06-10-2024 Episodic Nausea and vomiting (19 sources) Nausea and vomiting; Translations: [Nausea with vomiting, unspecified] Onset: 08-08-2023 Resolved: 11-12-2023 04-15-2023 Episodic Other bone disease and musculoskeletal deformities (4 sources) Scapulalgia; Translations: [Other specified disorders of bone, shoulder] 10-25-2022 Episodic Other complications of (1 source) Anemia of ; Translations: [Anemia complicating , unspecified trimester] 11-12-2023 Chronic Other complications of (1 source) Anemia complicating , third trimester; Translations: [Anemia complicating , third trimester] Onset: 02-23-2024 Chronic Other complications of (13 sources) High risk ; Translations: [Supervision of high risk , unspecified, first trimester] Onset: 08-13-2023 08-13-2023 Episodic Other complications of (1 source) Teenage ; Translations: [Supervision of other high risk pregnancies, first trimester] Onset: 08-17-2023 08-31-2023 Episodic Other complications of (1 source) with mental disorders; Translations: [Other mental disorders complicating , first trimester] Onset: 08-17-2023 08-31-2023 Episodic Other complications of (3 sources) Endocrine, nutritional and metabolic disease complicating , childbirth and puerperium; Translations: [Endocrine, nutritional and metabolic diseases complicating , first trimester] Onset: 09-02-2023 09-02-2023 Episodic Other complications of (1 source) Hyperemesis gravidarum; Translations: [Mild hyperemesis gravidarum] 09-21-2023 Episodic Other complications of (2 sources) Mental disorder in mother complicating ; Translations: [Other mental disorders complicating , second trimester] Onset: 08-17-2023 10-26-2023 Episodic Other complications of (2 sources) Maternal tobacco use; Translations: [Smoking (tobacco) complicating , second trimester] Onset: 09-14-2023 09-14-2023 Episodic Other complications of (2 sources) Mild hyperemesis gravidarum; Translations: [Mild hyperemesis gravidarum] Onset: 09-21-2023 Episodic Other complications of (6 sources) Bacterial vaginosis in ; Translations: [Infection of other part of genital tract in , unspecified trimester] Onset: 04-27-2025 04-27-2025 Episodic Other endocrine disorders (2 sources) Hypoglycemia, unspecified; Translations: [Hypoglycemia, unspecified] Onset: 08-08-2023 Chronic Other female genital disorders (20 sources) Vaginal discharge; Translations: [Other specified noninflammatory disorders of vagina] Onset: 08-13-2023 Resolved: 06-10-2024 Episodic Other female genital disorders (1 source) Vaginal irritation; Translations: [Other specified noninflammatory disorders of vagina] Episodic Other female genital disorders (3 sources) Other specified noninflammatory disorders of vagina; Translations: [Vaginal discharge] Onset: 02-08-2025 Episodic Other injuries and conditions due to external causes (1 source) Injury of right ankle; Translations: [Unspecified injury of right ankle, initial encounter] Episodic Other non-traumatic joint disorders (4 sources) Shoulder pain; Translations: [Pain in unspecified shoulder] 10-25-2022 Episodic Other and delivery including normal (4 sources) test positive; Translations: [Encounter for test, result positive] Onset: 03-31-2025 03-31-2025 Episodic Other upper respiratory infections (3 sources) Bacterial sinusitis; Translations: [Chronic sinusitis, unspecified] Onset: 04-10-2025 09-20-2024 Chronic Other upper respiratory infections (20 sources) Sore throat symptom; Translations: [Acute pharyngitis, unspecified] Onset: 09-05-2013 Resolved: 12-20-2013 Episodic Otitis media and related conditions (3 sources) Acute transudative otitis media; Translations: [Other acute nonsuppurative otitis media, bilateral] Onset: 03-03-2025 09-20-2024 Episodic Residual codes; unclassified (1 source) Influenza-like symptoms; Translations: [Other general symptoms and signs] Episodic Residual codes; unclassified (6 sources) Pain; Translations: [Pain, unspecified] 08-18-2022 Episodic Residual codes; unclassified (3 sources) Pain, unspecified; Translations: [Generalized pain] 08-18-2022 Episodic Residual codes; unclassified (1 source) Unprotected sexual intercourse; Translations: [High risk heterosexual behavior] 02-08-2025 Episodic Residual codes; unclassified (1 source) High risk heterosexual behavior; Translations: [Unprotected sexual intercourse] Onset: 02-08-2025 Episodic Spondylosis; intervertebral disc disorders; other back problems (3 sources) Acute low back pain; Translations: [Acute low back pain without sciatica, unspecified back pain laterality] Onset: 05-12-2024 Episodic Sprains and strains (20 sources) Sprain of ankle; Translations: [Sprain of unspecified ligament of right ankle, initial encounter] Onset: 04-10-2022 Resolved: 08-13-2023 Episodic Unclassified (1 source) Low back pain, unspecified; Translations: [Low back pain, unspecified] Onset: 07-20-2023 Unclassified (1 source) ERRONEOUS ENCOUNTER--DISREGARD 01-11-2024 Unclassified (1 source) Cough, unspecified; Translations: [Cough, unspecified] Onset: 07-20-2024 Viral infection (2 sources) Viral disease; Translations: [Viral infection, unspecified] Episodic Past or Other Problems Problem Classification Problem Date Documented Da te Episodic/Chronic Cardiac dysrhythmias (20 sources) Tachycardia; Translations: [Tachycardia, unspecified] Onset: 08-13-2023 Episodic Complications of surgical procedures or medical care (1 source) Postprocedural hematoma of skin and subcutaneous tissue following other procedure; Translations: [Postprocedural hematoma of skin and subcutaneous tissue following other procedure] Onset: 03-24-2024 Episodic Diabetes mellitus without complication (20 sources) Glycosuria; Translations: [Glycosuria] Onset: 04-20-2023 Resolved: 08-17-2023 Episodic Hypertension complicating ; childbirth and the puerperium (20 sources) Pre-eclampsia; Translations: [Unspecified pre-eclampsia, third trimester] Onset: 02-18-2024 02-18-2024 Episodic Nonspecific chest pain (4 sources) Chest pain; Translations: [Chest pain, unspecified] Onset: 12-17-2023 01-29-2023 Episodic Other aftercare (1 source) Encounter for other specified aftercare; Translations: [Encounter for other specified aftercare] Onset: 03-24-2024 Episodic Other complications of (20 sources) Diseases of the digestive system complicating , first trimester; Translations: [Other current conditions classifiable elsewhere of mother, antepartum condition or complication] Onset: 02-12-2010 Resolved: 06-10-2024 08-13-2023 Episodic Other complications of (20 sources) Heartburn; Translations: [Other specified related conditions, first trimester] Onset: 08-13-2023 Resolved: 06-10-2024 08-13-2023 Episodic Other complications of (20 sources) Asymptomatic bacteriuria in ; Translations: [Asymptomatic bacteriuria during ] Onset: 08-13-2023 Resolved: 06-10-2024 08-13-2023 Episodic Other complications of (20 sources) Kidney stone; Translations: [ related renal disease, first trimester] Onset: 03-05-2023 Resolved: 06-10-2024 08-13-2023 Episodic Other complications of (20 sources) Urinary tract infection in ; Translations: [Unspecified infection of urinary tract in , first trimester] Onset: 08-15-2023 Resolved: 06-10-2024 08-15-2023 Episodic Other complications of (2 sources) Other specified related conditions, first trimester; Translations: [Other specified related conditions, first trimester] Onset: 07-14-2023 Episodic Other complications of (20 sources) Vomiting of , unspecified; Translations: [Unspecified vomiting of , unspecified as to episode of care or not applicable] Onset: 08-13-2023 Resolved: 06-10-2024 08-13-2023 Episodic Other gastrointestinal disorders (20 sources) Constipation; Translations: [Constipation, unspecified] Onset: 11-27-2009 Resolved: 01-17-2020 02-12-2010 Episodic Other lower respiratory disease (20 sources) Dyspnea; Translations: [Shortness of breath] Onset: 08-13-2023 01-29-2023 Episodic Other nutritional; endocrine; and metabolic disorders (7 sources) Childhood obesity; Translations: [Body mass index (BMI) pediatric, greater than or equal to 95th percentile for age] Onset: 01-18-2016 Resolved: 08-17-2023 01-18-2016 Episodic Other nutritional; endocrine; and metabolic disorders (3 sources) Craving for particular food; Translations: [Other symptoms and signs concerning food and fluid intake] Onset: 07-08-2023 Resolved: 08-17-2023 08-17-2023 Episodic Other screening for suspected conditions (not mental disorders or infectious disease) (7 sources) Decreased vitamin D; Translations: [Other specified abnormal findings of blood chemistry] Onset: 07-08-2023 Resolved: 11-12-2023 09-02-2023 Episodic Other skin disorders (14 sources) Ingrowing toenail; Translations: [Ingrowing nail] Onset: 02-14-2021 Resolved: 10-01-2021 03-30-2015 Episodic Other upper respiratory disease (7 sources) Allergic rhinitis; Translations: [Allergic rhinitis, unspecified] Onset: 10-26-2012 Resolved: 08-20-2023 08-21-2022 Chronic Polyhydramnios and other problems of amniotic cavity (20 sources) Subchorionic hematoma; Translations: [Other specified disorders of amniotic fluid and membranes, first trimester, not applicable or unspecified] Onset: 08-02-2023 Resolved: 06-10-2024 08-13-2023 Episodic Residual codes; unclassified (5 sources) Monitoring status; Translations: [Presence of other specified devices] Onset: 04-24-2023 Resolved: 08-17-2023 04-24-2023 Episodic Residual codes; unclassified (20 sources) Gestation period, 9 weeks; Translations: [9 weeks gestation of ] Onset: 08-13-2023 Resolved: 06-10-2024 08-13-2023 Episodic Residual codes; unclassified (20 sources) FH: Chromosomal anomaly; Translations: [Family history of other congenital malformations, deformations and chromosomal abnormalities] Onset: 08-13-2023 08-13-2023 Episodic Residual codes; unclassified (3 sources) Nicotine-filled electronic cigarette user; Translations: [Tobacco use] Onset: 08-17-2023 Resolved: 11-12-2023 08-31-2023 Episodic Residual codes; unclassified (2 sources) 8 weeks gestation of ; Translations: [8 weeks gestation of ] Onset: 08-08-2023 Episodic Residual codes; unclassified (2 sources) Less than 8 weeks gestation of ; Translations: [Less than 8 weeks gestation of ] Onset: 08-02-2023 Episodic Syncope (2 sources) Syncope and collapse; Translations: [Syncope and collapse] Onset: 01-24-2025 Episodic Unclassified (1 source) Low back pain, unspecified; Translations: [Low back pain, unspecified] Onset: 07-20-2023 Urinary tract infections (20 sources) Pyelonephritis; Translations: [Tubulo-interstitial nephritis, not specified as acute or chronic] Onset: 05-30-2022 Resolved: 07-06-2022 Episodic Results Test Name Value Interpretation Reference Range Facility .Auto Diffon 05-06-2025 Basophil, Absolute 0.0 10 3/mcL Normal 0.0-0.3 [facility] Comment on above: Performed By: #### U A, PREGU, UAMICAO #### [address] [address] Basophils/100 WBC (Bld) 0.1 % Normal 0.0-2.5 [facility] Comment on above: Performed By: #### U A, PREGU, UAMICAO #### [address] [address] Eosinophil, Absolute 0.1 10 3/mcL Normal 0.0-0.7 [facility] Comment on above: Performed By: #### U A, PREGU, UAMICAO #### [address] [address] Eosinophils/100 WBC (Bld) 2.1 % Normal 0.0-6.0 [facility] Comment on above: Performed By: #### U A, PREGU, UAM[place]O #### [address] [address] Lymphocyte, Absolute 0.6 10 3/mcL Low 0.9-4.3 [facility] Comment on above: Performed By: #### U A, PREGU, UAMICAO #### [address] [address] Lymphocytes/100 WBC (Bld) 9.0 % Low 20.0-40.0 [facility] Comment on above: Performed By: #### U A, PREGU, UAM[place]O #### [address] [address] Monocyte, Absolute 0.4 10 3/mcL Normal 0.1-1.4 [facility] Comment on above: Performed By: #### U A PREGU, UAMICAO #### [id number] [place], [place] [address] Monocytes/100 WBC (Bld) 5.6 % Normal 2.0-13.0 [facility] Comment on above: Performed By: #### U A, PREGU, UAMICAO #### [id number] [place], [place] [address] Neutrophils/100 WBC (Bld) 83.2 % High 50.0-75.0 [facility] Comment on above: Performed By: #### U A PREGU [place]AM[place]O #### [address] [address] .GFRon 05-06-2025 GFR/1.73 sq M.predicted among non-blacks MDRD (S/P/Bld) [Vol rate/Area] mL/min/{1.73_m2} Normal [facility] Comment on above: Result Comment: Stages of Chronic Kidney Disease (CKD) Stage Description eGFR(ml/min/1.73 sq.m.) CKD 1 Normal kidney function or >=90 normal kindney function with possible kidney damage (ex. Proteinuria) CKD 2 Kidney damage with mild loss 60-89 of kidney function CKD 3a Mild to moderate loss of kidney 45-59 function CKD 3b Moderate to severe loss of 30-44 of kindey function CKD 4 Severe loss of kidney function 15-29 CKD 5 Kidney failure <15 Note: (go live 2024) the eGFR calculation was updated to the 2020 CKD-EPI creatinine equation without a race factor to calculate the eGFR results. Performed By: #### U A PREGU, UAMICAO #### [id number] [place], [place] [address] .MDWon 05-06-2025 Monocyte Distribution Width 21.66 High 0.00-20.00 [facility] Comment on above: Result Comment: For adults in ED, MDW>20.0 may be associated with a higher risk of sepsis during the first 12hrs of hospital admission Performed By: #### U A, PREGU, UAMICAO #### [address] [address] .NEUABSon 05-06-2025 Neutrophil, Absolute 5.9 10 3/mcL Normal 2.3-8.1 [facility] Comment on above: Performed By: #### JANE Piña UAMICAO #### [address] [address] CBCon 05-06-2025 Erythrocyte distribution width (RBC) [Ratio] 14.6 % Normal 11.5-15.5 [facility] Comment on above: Performed By: #### JANE Piña UAM[place]O #### [address] [address] Hematocrit (Bld) [Volume fraction] 42.1 % Normal 34.0-46.0 [facility] Comment on above: Performed By: #### JANE Piña UAMICSINDHU #### [address] [address] Hgb 14.0 G/dL Normal 12.0-16.0 [facility] Comment on above: Performed By: #### JANE Piña UAMICSINDHU #### [address] [address] MCH (RBC) [Entitic mass] 27.9 pg Normal 27.0-33.0 [facility] Comment on above: Performed By: #### JANE Piña [place]AM[place]O #### [address] [address] MCHC 33.1 G/dL Normal 32.0-36.0 [facility] Comment on above: Performed By: #### JANE Piña [place]AM[place]O #### [address] [address] MCV (RBC) [Entitic vol] 84.1 fL Normal 80.0-99.0 [facility] Comment on above: Performed By: #### JNAE Piña [place] #### [address] [address] Platelet 211 10 3/mcL Normal 150-450 [facility] Comment on above: Performed By: #### JANE Piña [place] #### [address] [address] Platelet mean volume (Bld) [Entitic vol] 9.1 fL Normal 6.6-10.5 [facility] Comment on above: Performed By: #### JANE Piña [place]AM[place]O #### [address] [address] RBC 5.01 10 6/mcL Normal 4.10-5.30 [facility] Comment on above: Performed By: #### JANE Piña [place] #### [address] [address] WBC 7.0 10 3/mcL Normal 4.5-10.8 [facility] Comment on above: Performed By: #### JANE Piña [place]AM[place]O #### [address] [address] CMPon 05-06-2025 ALT [Catalytic activity/Vol] 17 U/L Normal 14-59 [facility] Comment on above: Performed By: #### JANE Piña [place]AM[place]O #### [address] [address] Albumin Level 3.7 G/dL Normal 3.5-5.0 [facility] Comment on above: Performed By: #### JANE Piña [place]AM[place]O #### [address] [address] Albumin/Globulin [Mass ratio] 0.8 {ratio} Low 1.1-2.5 [facility] Comment on above: Performed By: #### JANE Piña [place]AM[place]O #### [address] [address] ALP [Catalytic activity/Vol] 97 U/L Normal 40-135 [facility] Comment on above: Performed By: #### JANE Piña [place]O #### [address] [address] AST [Catalytic activity/Vol] 14 U/L Normal 10-40 [facility] Comment on above: Performed By: #### Lita Stevens PREGU [place] #### [address] [address] Bili Total 1.1 mg/dL High 0.2-1.0 [facility] Comment on above: Result Comment: Use of this assay is not recommended for patients undergoing treatment with eltrombopag due to the potential for falsely elevated results. Performed By: #### U Hilda PREGU [place] #### [address] [address] BUN/Creatinine Ratio 17 ratio Normal 7-27 [facility] Comment on above: Performed By: #### U COLLEEN StevensU [place]O #### [address] [address] Calcium [Mass/Vol] 9.0 mg/dL Normal 8.4-10.2 [facility] Comment on above: Performed By: #### U Hilda PREGU [place] #### [address] [address] Chloride [Moles/Vol] 102 mmol/L Normal 98-107 [facility] Comment on above: Performed By: #### U A PREGU [place]AM[place]O #### [address] [address] CO2 [Moles/Vol] 23 mmol/L Normal 22-29 [facility] Comment on above: Performed By: #### U A PREGU, U[place]O #### [address] [address] Creatinine [Mass/Vol] 0.42 mg/dL Low 0.51-0.95 [facility] Comment on above: Performed By: #### U A PREGU, UAM[place]O #### [address] [address] Electrolyte Balance 13.0 mEq/L Normal 4.0-15.0 [facility] Comment on above: Performed By: #### JANE Piña [place]AM[place]O #### [address] [address] Globulin 4.4 G/dL Normal 2.7-4.4 [facility] Comment on above: Performed By: #### JANE Piña [place] #### [address] [address] Glucose [Mass/Vol] 116 mg/dL High 70-105 [facility] Comment on above: Performed By: #### JANE Piña [place] #### [address] [address] Potassium [Moles/Vol] 3.5 mmol/L Normal 3.5-5.1 [facility] Comment on above: Performed By: #### JANE Piña UAMICSINDHU #### [address] [address] Sodium [Moles/Vol] 138 mmol/L Normal 136-145 [facility] Comment on above: Performed By: #### JANE Piña UAMICSINDHU #### [address] [address] Total Protein 8.1 G/dL Normal 6.4-8.2 [facility] Comment on above: Performed By: #### JANE Piña [place]O #### [address] [address] Urea nitrogen [Mass/Vol] 7 mg/dL Normal 7-18 [facility] Comment on above: Performed By: #### JANE Piña UAMICSINDHU #### [address] [address] LABORATORYOrdered By: SYSTEM SYSTEM on 05-06-2025 Albumin BCP dye [Mass/Vol] 3.7 G/dL Normal 3.5 - 5.0 G/dL AO ADM SS Albumin/Globulin [Mass ratio] 0.8 {ratio} Low 1.1 - 2.5 ratio AO ADM SS ALP [Catalytic activity/Vol] 97 U/L Normal 40 - 135 U/L AO ADM SS ALT With P-5'-P [Catalytic activity/Vol] 17 U/L Normal 14 - 59 U/L AO ADM SS AST With P-5'-P [Catalytic activity/Vol] 14 U/L Normal 10 - 40 U/L AO ADM SS Basophils (Bld) [#/Vol] 0.0 103/mcL Normal 0.0 - 0.3 10^3/mcL AO Workflow SS Basophils/100 WBC (Bld) 0.1 % Normal 0.0 - 2.5 % AO Workflow SS Bilirubin [Mass/Vol] 1.1 mg/dL High 0.2 - 1 .0 mg/dL AO ADM SS Comment on above: Interpretive Data: U se of this assay is not recommended for patients undergoing treatment with eltrombopag due to the potential for falsely elevated results. Calcium [Mass/Vol] 9.0 mg/dL Normal 8.4 - 10. 2 mg/dL AO ADM SS Chloride [Moles/Vol] 102 mmol/L Normal 98 - 10 7 mmol/L AO ADM SS CO2 [Moles/Vol] 23 mmol/L Normal 22 - 29 mmol/L AO AD M SS Creatinine [Mass/Vol] 0.42 mg/dL Low 0.51 - 0.95 mg/dL AO ADM SS Electrolyte Balance 13.0 mEq/L Normal 4.0 - 15 .0 mEq/L AO ADM SS Eosinophil, Absolute 0.1 103/mcL Normal 0.0 - 0 .7 10^3/mcL AO Workflow SS Eosinophils/100 WBC (Bld) 2.1 % Normal 0.0 - 6.0 % AO Workflow SS Erythrocyte distribution width (RBC) [Ratio] 14.6 % Normal 11.5 - 15.5 % AO Workflow SS Globulin 4.4 G/dL Normal 2.7 - 4.4 G/dL AO ADM SS GLOMERULAR FILTRATION RATE/1.73 SQ M.PREDICTED:ARVRAT:PT: SER/PLAS/BLD:QN:CREATI NINE-BASED FORMULA (CKD-EPI 2020) ml/min/1.73sqm Invalid Interpretation Code AO Chemistry S Comment on above: Interpretive Data: Stages of Chronic Kidney Disease (CKD) Stage Description eGFR(ml/min/1.73 sq.m.) CKD 1 Normal kidney function or >=90 normal kindney function with possible kidney damage (ex. Proteinuria) CKD 2 Kidney damage with mild loss 60-89 of kidney function CKD 3a Mild to moderate loss of kidney 45-59 function CKD 3b Moderate to severe loss of 30-44 of kindey function CKD 4 Severe loss of kidney function 15-29 CKD 5 Kidney failure <15 Note: (go live 2024) the eGFR calculation was updated to the 2020 CKD-EPI creatinine equation without a race factor to calculate the eGFR results. Glucose [Mass/Vol] 116 mg/dL High 70 - 105 mg/dL AO ADM SS Hematocrit (Bld) [Volume fraction] 42.1 % Normal 34.0 - 46.0 % AO Workflow SS Hemoglobin (Bld) [Mass/Vol] 14.0 G/dL Normal 12.0 - 16.0 G/dL AO Workflow SS Lipase [Catalytic activity/Vol] 23 U/L Normal 16 - 77 U/L AO ADM SS Lymphocytes (Bld) [#/Vol] 0.6 103/mcL Low 0.9 - 4.3 10^3/mcL AO Workflow SS Lymphocytes/100 WBC (Bld) 9.0 % Low 20.0 - 40.0 % AO Workflow SS MCH (RBC) [Entitic mass] 27.9 pg Normal 27.0 - 33.0 pg AO Workflow SS MCHC 33.1 G/dL Normal 32.0 - 36.0 G/dL AO Workflow SS MCV (RBC) [Entitic vol] 84.1 fL Normal 80.0 - 99.0 fL AO Workflow SS Monocyte distribution width Auto (Bld) [Entitic vol] 21.66 1 High 0.00 - 20.00 AO Workflow SS Comment on above: Result Comment: For adults in ED, MDW>20.0 may be associated with a higher risk of sepsis during the first 12hrs of hospital admission Monocytes (Bld) [#/Vol] 0.4 103/mcL Normal 0.1 - 1.4 10^3/mcL AO Workflow SS Monocytes/100 WBC (Bld) 5.6 % Normal 2.0 - 13.0 % AO Workflow SS Neutrophils (Bld) [#/Vol] 5.9 103/mcL Normal 2.3 - 8.1 10^3/mcL AO Workflow SS Neutrophils/100 WBC (Bld) 83.2 % High 50.0 - 75.0 % AO Workflow SS Platelet mean volume (Bld) [Entitic vol] 9.1 fL Normal 6.6 - 10.5 fL AO Workflow SS Platelets (Bld) [#/Vol] 211 103/mcL Normal 150 - 450 10^3/mcL AO Workflow SS Potassium [Moles/Vol] 3.5 mmol/L Normal 3.5 - 5.1 mmol/L AO ADM SS Protein [Mass/Vol] 8.1 G/dL Normal 6.4 - 8.2 G/dL AO ADM SS RBC (Bld) [#/Vol] 5.01 106/mcL Normal 4.10 - 5.3 0 10^6/mcL AO Workflow SS Sodium [Moles/Vol] 138 mmol/L Normal 136 - 145 mmol/L AO ADM SS Urea nitrogen [Mass/Vol] 7 mg/dL Normal 7 - 18 mg/dL AO ADM SS Urea nitrogen/Creatinine [Mass ratio] 17 ratio Normal 7 - 27 ratio AO ADM SS WBC (Bld) [#/Vol] 7.0 103/mcL Normal 4.5 - 10.8 10^3/mcL AO Workflow SS LABORATORYOrdered By: Yvonne Colunga on 05-06-2025 Color (U) Yellow (05/06/25 11:31 AM) Normal Yellow AO Auto Urine SS Glucose (U) [Mass/Vol] 500 mg/dL Invalid Interpretation Code Negative AO Auto Urine SS Ketones Ql (U) 15 mg/dL Invalid Interpretation Code Negative AO Auto Urine SS UA Appear Clear (05/06/25 11:31 AM) Normal Clear AO Auto Urine SS UA Bili Negative (05/06/25 11:31 AM) Normal Negative AO Auto Urine SS UA Blood Negative (05/06/25 11:31 AM) Normal Negative AO Auto Urine SS UA Leuk Est Negative (05/06/25 11:31 AM) Normal Negative AO Auto Urine SS UA Nitrite Negative (05/06/25 11:31 AM) Normal Negative AO Auto Urine SS UA pH 6.0 (05/06/25 11:31 AM) Normal 5.0 - 8.0 AO Auto Urine SS UA Protein Trace mg/dL Normal Negative AO Auto Urine SS UA Spec Grav >=1.030 *ABN* (05/06/25 11:31 AM) Invalid Interpretation Code 1.015-1.025 AO Auto Urine SS UA Specimen Type Clean Catch (05/06/25 11:31 AM) Normal AO Auto Urine SS UA Urobilinogen 0.2 E.U./dL Normal 0.2-1.0 AO Auto Urine SS LIPon 05-06-2025 Lipase Level 23 U/L Normal 16-77 [facility] Comment on above: Performed By: #### U A, PREGU, UAMICAO #### [place] [address] UAon 05-06-2025 Color (U) Yellow Normal Yellow [facility] Comment on above: Performed By: #### U A, PREGU, UAMICAO #### [place] [address] Glucose (U) [Mass/Vol] 500 mg/dL Abnormal Negative [facility] Comment on above: Performed By: #### U A, PREGU, UAMICAO #### [place] [address] Ketones Ql (U) 15 mg/dL Abnormal Negative [facility] Comment on above: Performed By: #### U A, PREGU, UAMICAO #### [place] [address] UA Appear Clear Normal Clear [facility] Comment on above: Performed By: #### U A, PREGU, UAMICAO #### [place] [address] UA Blood Negative Normal Negative [facility] Comment on above: Performed By: #### U A, PREGU, UAMICAO #### [place] [address] UA Leuk Est Negative Normal Negative [facility] Comment on above: Performed By: #### U A, PREGU, UAMICAO #### [place] [address] UA Nitrite Negative Normal Negative [facility] Comment on above: Performed By: #### U A, PREGU, UAMICAO #### [place] [address] UA pH 6.0 Normal 5.0 - 8.0 [facility] Comment on above: Performed By: #### U A PREGU, UAMICAO #### [place] [address] UA Protein Trace Normal Negative [facility] Comment on above: Performed By: #### U A, PREGU, UAMICAO #### [place] [address] UA Spec Grav >=1.030 Abnormal 1.015-1.025 [facility] Comment on above: Performed By: #### U A PREGU, UAMICAO #### [place] [address] UA Specimen Type Clean Catch Normal [facility] Comment on above: Performed By: #### U A PREGU, UAMICAO #### [place] [address] UA Urobilinogen 0.2 E.U./dL Normal 0.2-1.0 [facility] Comment on above: Performed By: #### U A PREGU, UAMICAO #### [place] [address] Urobilinogen (U) [Mass/Vol] Negative Normal Negative [facility] Comment on above: Performed By: #### U A PREGU, UAMICAO #### [place] [address] 36on 05-03-2025 36 Patient called [facility] nurse line and LM. Call returned to patient to discuss needs. No answer and unable to LM as VM is full. Will respond via [employer] [facility] 36on 05-01-2025 36 [facility] referral sent [facility] Bacterial vaginosis and vagi nitis rRNA panel Probe (Vag fld)on 04-27-2025 Bacterial vaginosis Ql (Vag fld) [Interp] Detected Abnormal Not Detected [facility] C. glabrata DNA FIORELLA+probe Ql (Vag fld) Detected Abnormal Not Detected [facility] Jayme sp DNA FIORELLA+probe Ql (Vag fld) Not detected Not Detected [facility] Interpretation and review of laboratory results Abnormal [facility] T. vaginalis DNA FIORELLA+probe Ql (Vag fld) Not detected Not Detected [facility] Methodology: real-ti me PCR A negative result does not preclude a possible infection. This assay can detect the Jayme species C. albicans, C. tropicalis, C. parapsilosis, and C. dubliniensis but does not differentiate among them. The assay also detects C. glabrata and C. krusei, but does not differentiate between them. Results should be interpreted in conjunction with other clinical data. This test has not been validated for use with specimens collected by patients at home. This test is intended for medical purposes only and is not valid for the evaluation of suspected sexual abuse or for other forensic purposes. [facility] CHLAMYDIA/GONORRHEAon 2024 CHLAMYDIA/GONORRHEA NEISSERIA GONORRHOEA E DNA PROBE Reference Not Detected Not Detected CHLAMYDIA TRACHOMATIS DNA PROBE Reference Not Detected Not Detected ORDER COMMENTS: Methodology: real-time PCR This test is intended for medical purposes only and is not intended for the evaluation of suspected sexual abuse or for other forensic purposes. In certain contexts, culture may be required to meet applicable laws and regulations for diagnosis of C. trachomatis and N. gonorrhoeae infections. Per 2014 CDC recommmendations, this test does not include confirmation of positive results by an alternative nucleic acid target. A negative result does not exclude the possibility of infection. A result of invalid indicates that a new specimen should be collected if clinically indicated. Normal [facility] Comment on above: Performed By: #### L [id number] ####Fabrication Engineer: CHARLIE MCCLAIN ([id number])[facility] ([facility] HCG QUANTITATIVE BLOODon HCG QUANTITATIVE 5754.3 mIU/mL Normal Females <5 [facility] Comment on above: Result Comment: [place] COMMENTS: Values in should double every 2 to 3 days for the first 6 weeks. Elevated concentrations of human chorionic gonadotropin (hCG) measured in the first trimester of are observed in normal , but may serve as an indication of chorionic carcinoma, hydatiform mole, or multiple . Decreasing hCG concentrations indicate threatened or missed , recent termination of , ectopic , gestosis or intrauterine . Danita- and postmenopausal females may have detectable hCG concentrations (< or = to 14 mIU/mL) due to pituitary production of hCG. Serum follicle-stimulating hormone measurement may aid in ruling-out in this population. Cutoffs of greater than 20 to 45 mIU/mL have been suggested and are method dependent. False-elevations (called phantom human chorionic gonadotropin: hCG) may occur with patients who have human antianimal or heterophilic antibodies. Some specimens may not dilute linearly due to abnormal forms of hCG. Elevated hCG concentrations not associated with are found in patients with other diseases such as tumors of the germ cells, ovaries, bladder, pancreas, stomach, lungs, and liver. This test is not intended to detect or monitor tumors or gestational trophoblastic disease. Performed By: #### L [id number] ####Fabrication Engineer: CHARLIE MCCLAIN ([id number])[facility] ([facility])[address] [place] [address] N. gonorrhoeae DNA FIORELLA+probe Ql (Cervical mucus)on 04-27-2025 C. trachomatis DNA FIORELLA+probe Ql (Unsp spec) Not detected Not Detected [facility] Interpretation and review of laboratory results Normal [facility] N. gonorrhoeae DNA FIORELLA+probe Ql (Unsp spec) Not detected Not Detected [facility] Methodology: real-ti me PCR This test is intended for medical purposes only and is not intended for the evaluation of suspected sexual abuse or for other forensic purposes. In certain contexts, culture may be required to meet applicable laws and regulations for diagnosis of C. trachomatis and N. gonorrhoeae infections. Per 2014 CDC recommmendations, this test does not include confirmation of positive results by an alternative nucleic acid target. A negative result does not exclude the possibility of infection. A result of invalid indicates that a new specimen should be collected if clinically indicated. [facility] No Panel Informationon 04-27 1. Lopez live intrauterine with a gestational age of 5w 6d with an TEJ of 12/22/2025 based on crown-rump length. 2. Normal uterus and adnexa as noted above. Recommendations: 1. Recommend NT screening between 11-13 weeks. 2. Aneuploidy screening as ordered per primary OB. MFM/genetics consult is available if desired. 3. Anatomic survey at 18-20 weeks. 4. Additional follow-up as clinically indicated. Ultrasound is not diagnostic of chromosomal aneuploidy and does not detect all subtle defects. Normal ultrasound findings do not guarantee normal outcomes. [facility] - OBSTETRICS REPORT (Signed Final 04/27/2025 10:37 am) - PATIENT INFO: ID #: [id number] : [birth year] (19 yrs)(F) Name: CATALINA CAPELLAN Visit Date: 04/27/2025 09:23 am - PERFORMED BY: Attending: Nan Zacarias MD, ROLA, FACOG Performed By: Nayeli SHARIF, NBA Referred By: ASHLYN ABRAHAM CNP Location: [facility] Visit Type: Outpatient - SERVICE(S) PROVIDED: US < 14 weeks [id number] US Transvaginal [id number] - INDICATIONS: Dating and viability Bleeding Hemorrhage in early , unspecified O20.9 - VITAL SIGNS: Weight (lb): 160 Height: 5'6 BMI: 25.82 - EVALUATION: Num Of Fetuses: 1 Preg. Location: Intrauterine Gest. Sac: Seen Yolk Sac: Visualized Pole: Visualized Heart Rate(bpm): 118 Cardiac Activity: Observed Lie: Too early to determine Placenta: Too early to evaluate Amniotic Fluid ALLI FV: Appropriate for gestational age - BIOMETRY: CRL: 3.1 mm G.Age: 5w 6d TEJ: 12/22/25 - GESTATIONAL AGE: LMP: 11w 0d Date: 02/09/25 TEJ: 11/16/25 Best: 5w 6d Det. By: Lita/Rafal Paulson TEJ: 12/22/25 (04/27/25) - CERVIX UTERUS ADNEXA: Right Ovary Size(cm) 2.36 2.03 1.34 Vol(ml): 3.36 Left Ovary Size(cm) 2.94 2.36 1.97 Vol(ml): 7.16 Corpus luteal cyst measuring 2.1 x 1.7 x 1.6cm - - Nan Zacarias MD, ROLA, FACOG Electronically Signed Final Report 04/27/2025 10:37 am - [facility] Leatha Zacarias MD - 04/27/2025 - OBSTETRICS REPORT (Signed Final 04/27/2025 10:37 am) - PATIENT INFO: ID #: [id number] : [birth year] (19 yrs)(F) Name: CATALINA CAPELLAN Visit Date: 04/27/2025 09:23 am - PERFORMED BY: Attending: Nan Zacarias MD, ROLA, FACOG Performed By: Nayeli SHARIF, RD Referred By: ASHLYN ABRAHAM CNP Location: [facility] Visit Type: Outpatient - SERVICE(S) PROVIDED: US < 14 weeks [id number] US Transvaginal [id number] - INDICATIONS: Dating and viability Bleeding Hemorrhage in early , unspecified O20.9 - VITAL SIGNS: Weight (lb): 160 Height: 5'6 BMI: 25.82 - EVALUATION: Num Of Fetuses: 1 Preg. Location: Intrauterine Gest. Sac: Seen Yolk Sac: Visualized Pole: Visualized Heart Rate(bpm): 118 Cardiac Activity: Observed Lie: Too early to determine Placenta: Too early to evaluate Amniotic Fluid ALLI FV: Appropriate for gestational age - BIOMETRY: CRL: 3.1 mm G.Age: 5w 6d TEJ: 12/22/25 - GESTATIONAL AGE: LMP: 11w 0d Date: 02/09/25 TEJ: 11/16/25 Best: 5w 6d Det. By: Sis Paulson TEJ: 12/22/25 (04/27/25) - CERVIX UTERUS ADNEXA: Right Ovary Size(cm) 2.36 2.03 1.34 Vol(ml): 3.36 Left Ovary Size(cm) 2.94 2.36 1.97 Vol(ml): 7.16 Corpus luteal cyst measuring 2.1 x 1.7 x 1.6cm - - G Jeremy Zacarias MD, ROLA, FACOG Electronically Signed Final Report 04/27/2025 10:37 am - IMPRESSION: 1. Lopez live intrauterine with a gestational age of 5w 6d with an TEJ of 12/22/2025 based on crown-rump length. 2. Normal uterus and adnexa as noted above. Recommendations: 1. Recommend NT screening between 11-13 weeks. 2. Aneuploidy screening as ordered per primary OB. MFM/genetics consult is available if desired. 3. Anatomic survey at 18-20 weeks. 4. Additional follow-up as clinically indicated. Ultrasound is not diagnostic of chromosomal aneuploidy and does not detect all subtle defects. Normal ultrasound findings do not guarantee normal outcomes. [facility] Study observation (narrative) [facility] No Panel InformationOrdered By: Leatha Zacarias on 04-27-2025 [facility] Work Phone: Office Visiton 04-27-2025 Follow-up visit [id number] Eric Capellan 2005 F Date Provider Department Center 04/27/2025 [id number]-XLFOLASHLYN ABRAHAM [facility] Offi Family History Problem Relation Age of Onset No Known Problems Father No Known Problems Mother Family Status - Relation Status Age at Father Alive Mother Alive Level of Service:03322 SD OFFICE/OUTPATIENT ESTABLISHED LOW MDM 20 MIN (SA) Reason for Visit and Comments: Follow-up [898544] - Spotting during early [facility] Progress Noteon 04-27-2025 Progress Note Chief Complaint Patient presents with Follow-up Spotting during early Patient's last menstrual period was 02/09/2025 (exact date). 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 ROS: Review of Systems Constitutional: Negative. HENT: Negative. Respiratory: Negative. Cardiovascular: Negative. Gastrointestinal: Negative. Genitourinary: Positive for vaginal bleeding. Neurological: Negative. Physical exam: BP 120/82 Pulse 96 Temp 36.8 ?C (98.2 ?F) Ht 5' 6 (1.676 m) Wt 160 lb (72.6 kg) LMP 02/09/2025 (Exact Date) Unknown BMI 25.82 kg/m? Physical Exam Constitutional: Appearance: Normal appearance. HENT: Head: Normocephalic and atraumatic. Pulmonary: Effort: Pulmonary effort is normal. Genitourinary: General: Normal vulva. Exam position: Lithotomy position. Vagina: Normal. Cervix: Normal. Uterus: Normal. Adnexa: Right adnexa normal and left adnexa normal. Musculoskeletal: General: Normal range of motion. Skin: General: Skin is warm and dry. Neurological: Mental Status: She is alert. Assessment and Plan: Catalina was seen today for follow-up. Diagnoses and all orders for this visit: Bleeding in early (HHS/HCC) (Primary) - Vaginitis Panel MVP PCR - Chlamydia/Gonorrhea - US OB less than 14 weeks early; Future - hCG, quantitative Vaginal discharge - Vaginitis Panel MVP PCR - Chlamydia/Gonorrhea No follow-ups on file. [1] No Known Allergies [2] Current Outpatient Medications: cholecalciferol (Vitamin D3) 25 MCG (1000 UT) tablet, Take by mouth daily., Disp: , Rfl: insulin lispro (HumaLOG) 100 UNIT/ML patient supplied pump, Inject under the skin continuous., Disp: , Rfl: multivitamin () 27-0.8 MG tablet, Take 1 tablet by mouth daily., Disp: 90 tablet, Rfl: 4 NIFEdipine XL (Procardia XL) 30 MG 24 hr tablet, Take 2 tablets (60 mg) by mouth Nightly. Do not crush, chew, or split., Disp: 60 tablet, Rfl: 0 Vit-Fe Fumarate-FA ( 1+1 PO), Take 1 tablet by mouth daily., Disp: , Rfl: Normal [facility] Progress Note A oracle specialist was offe red to be present during her exam. The patient: declined Patient had labs drawn for HCG, Quantitative (Lt green tube) Drawn from right arm and patient tolerated well. One attempt Normal [facility] US OB < 14 WEEKS SINGLE FETU S TRANSABDOMINAL APPROACHon 04-27-2025 US OB < 14 WEEKS SINGLE FETUS TRANSABDOMINAL APPROACH - OBSTETRICS REPORT (Signed Final 04/27/2025 10:37 am) - PATIENT INFO: ID #: [id number] : [birth year] (19 yrs)(F) Name: CATALINA CAPELLAN Visit Date: 04/27/2025 09:23 am - PERFORMED BY: Attending: Nan Zacarias MD, ROLA, FACOG Performed By: Nayeli SHARIF, RDMS Referred By: ASHLYN ABRAHAM CNP Location: [facility] Visit Type: Outpatient - SERVICE(S) PROVIDED: US < 14 weeks [id number] US Transvaginal [id number] - INDICATIONS: Dating and viability Bleeding Hemorrhage in early , unspecified O20.9 - VITAL SIGNS: Weight (lb): 160 Height: 5'6 BMI: 25.82 - EVALUATION: Num Of Fetuses: 1 Preg. Location: Intrauterine Gest. Sac: Seen Yolk Sac: Visualized Pole: Visualized Heart Rate(bpm): 118 Cardiac Activity: Observed Lie: Too early to determine Placenta: Too early to evaluate Amniotic Fluid ALLI FV: Appropriate for gestational age - BIOMETRY: CRL: 3.1 mm G.Age: 5w 6d TEJ: 12/22/25 - GESTATIONAL AGE: LMP: 11w 0d Date: 02/09/25 TEJ: 11/16/25 Best: 5w 6d Det. By: Sis Paulson TEJ: 12/22/25 (04/27/25) - CERVIX UTERUS ADNEXA: Right Ovary Size(cm) 2.36 2.03 1.34 Vol(ml): 3.36 Left Ovary Size(cm) 2.94 2.36 1.97 Vol(ml): 7.16 Corpus luteal cyst measuring 2.1 x 1.7 x 1.6cm - - Nan Zacarias MD, ROLA, FACOG Electronically Signed Final Report 04/27/2025 10:37 am - IMPRESSION: 1. Lopez live intrauterine with a gestational age of 5w 6d with an TEJ of 12/22/2025 based on crown-rump length. 2. Normal uterus and adnexa as noted above. Recommendations: 1. Recommend NT screening between 11-13 weeks. 2. Aneuploidy screening as ordered per primary OB. MFM/genetics consult is available if desired. 3. Anatomic survey at 18-20 weeks. 4. Additional follow-up as clinically indicated. Ultrasound is not diagnostic of chromosomal aneuploidy and does not detect all subtle defects. Normal ultrasound findings do not guarantee normal outcomes. Normal [facility] US OB TRANSVAGINALon 04-27-2 025 US OB TRANSVAGINAL --- - OBSTETRICS REPORT (Signed Final 04/27/2025 10:37 am) - PATIENT INFO: ID #: [id number] : [birth year] (19 yrs)(F) Name: CATALINA CAPELLAN Visit Date: 04/27/2025 09:23 am - PERFORMED BY: Attending: Nan Zacarias MD, ROLA, FACOG Performed By: Nayeli SHARIF, RD Referred By: ASHLYN ABRAHAM CNP Location: [facility] Visit Type: Outpatient - SERVICE(S) PROVIDED: US < 14 weeks 18834 US Transvaginal [id number] - INDICATIONS: Dating and viability Bleeding Hemorrhage in early , unspecified O20.9 - VITAL SIGNS: Weight (lb): 160 Height: 5'6 BMI: 25.82 - EVALUATION: Num Of Fetuses: 1 Preg. Location: Intrauterine Gest. Sac: Seen Yolk Sac: Visualized Pole: Visualized Heart Rate(bpm): 118 Cardiac Activity: Observed Lie: Too early to determine Placenta: Too early to evaluate Amniotic Fluid ALLI FV: Appropriate for gestational age - BIOMETRY: CRL: 3.1 mm G.Age: 5w 6d TEJ: 12/22/25 - GESTATIONAL AGE: LMP: 11w 0d Date: 02/09/25 TEJ: 11/16/25 Best: 5w 6d Det. By: Sis Paulson TEJ: 12/22/25 (04/27/25) - CERVIX UTERUS ADNEXA: Right Ovary Size(cm) 2.36 2.03 1.34 Vol(ml): 3.36 Left Ovary Size(cm) 2.94 2.36 1.97 Vol(ml): 7.16 Corpus luteal cyst measuring 2.1 x 1.7 x 1.6cm - - Nan Zacarias MD, ROLA, FACOG Electronically Signed Final Report 04/27/2025 10:37 am - IMPRESSION: 1. Lopez live intrauterine with a gestational age of 5w 6d with an TEJ of 12/22/2025 based on crown-rump length. 2. Normal uterus and adnexa as noted above. Recommendations: 1. Recommend NT screening between 11-13 weeks. 2. Aneuploidy screening as ordered per primary OB. MFM/genetics consult is available if desired. 3. Anatomic survey at 18-20 weeks. 4. Additional follow-up as clinically indicated. Ultrasound is not diagnostic of chromosomal aneuploidy and does not detect all subtle defects. Normal ultrasound findings do not guarantee normal outcomes. Normal [facility] VAGINITIS PANEL MVP PCRon VAGINITIS PANEL MVP PCR BACTERIAL VAGINOSIS MVP PCR (A) Reference Detected Not Detected JAYME SPP MVP PCR Reference Not Detected Not Detected JAYME GLABRATA/KRUSEI MVP PCR (A) Reference Detected Not Detected TRICHOMONAS VAGINALIS MVP PCR Reference Not Detected Not Detected ORDER COMMENTS: Methodology: real-time PCR A negative result does not preclude a possible infection. This assay can detect the Jayme species C. albicans, C. tropicalis, C. parapsilosis, and C. dubliniensis but does not differentiate among them. The assay also detects C. glabrata and C. krusei, but does not differentiate between them. Results should be interpreted in conjunction with other clinical data. This test has not been validated for use with specimens collected by patients at home. This test is intended for medical purposes only and is not valid for the evaluation of suspected sexual abuse or for other forensic purposes. Normal [facility] Comment on above: Performed By: #### L [id number] #### Fabrication Engineer: CHARLIE MCCLAIN ([id number]) [facility] ([facility]) [address] [place] [address] hCG, quantitativeon 04-27-20 HCG.beta subunit Qn 5754.3 m[IU]/mL Femal es <5 mIU/mL [facility] Values in should double every 2 to 3 days for the first 6 weeks. Elevated concentrations of human chorionic gonadotropin (hCG) measured in the first trimester of are observed in normal , but may serve as an indication of chorionic carcinoma, hydatiform mole, or multiple . Decreasing hCG concentrations indicate threatened or missed , recent termination of , ectopic , gestosis or intrauterine . Danita- and postmenopausal females may have detectable hCG concentrations (< or = to 14 mIU/mL) due to pituitary production of hCG. Serum follicle-stimulating hormone measurement may aid in ruling-out in this population. Cutoffs of greater than 20 to 45 mIU/mL have been suggested and are method dependent. False-elevations (called phantom human chorionic gonadotropin: hCG) may occur with patients who have human antianimal or heterophilic antibodies. Some specimens may not dilute linearly due to abnormal forms of hCG. Elevated hCG concentrations not associated with are found in patients with other diseases such as tumors of the germ cells, ovaries, bladder, pancreas, stomach, lungs, and liver. This test is not intended to detect or monitor tumors or gestational trophoblastic disease. [facility] 36on 04-26-2025 36 Call made to patient . Added on for tomorrow. ED precautions reviewed. Patient verbalized understanding. Normal [facility] CNCOon 04-21-2025 CNCO Letter Text Normal [facility] 36 04-17-2025 36 + HCG from OPL Call patient and schedule confirmation visit next available Normal [facility] 29on 04-14-2025 29 Addended by: FAZAL ESPARZA on: 04/14/2025 04:49 PM Modules accepted: Orders Normal [facility] HCG QUANTITATIVE BLOODon HCG QUANTITATIVE 587.8 mIU/mL Normal Females <5 [facility] Comment on above: Result Comment: NICK [place] COMMENTS: Values in should double every 2 to 3 days for the first 6 weeks. Elevated concentrations of human chorionic gonadotropin (hCG) measured in the first trimester of are observed in normal , but may serve as an indication of chorionic carcinoma, hydatiform mole, or multiple . Decreasing hCG concentrations indicate threatened or missed , recent termination of , ectopic , gestosis or intrauterine . Danita- and postmenopausal females may have detectable hCG concentrations (< or = to 14 mIU/mL) due to pituitary production of hCG. Serum follicle-stimulating hormone measurement may aid in ruling-out in this population. Cutoffs of greater than 20 to 45 mIU/mL have been suggested and are method dependent. False-elevations (called phantom human chorionic gonadotropin: hCG) may occur with patients who have human antianimal or heterophilic antibodies. Some specimens may not dilute linearly due to abnormal forms of hCG. Elevated hCG concentrations not associated with are found in patients with other diseases such as tumors of the germ cells, ovaries, bladder, pancreas, stomach, lungs, and liver. This test is not intended to detect or monitor tumors or gestational trophoblastic disease. Performed By: #### L [id number] ####Fabrication Engineer: CHARLIE MCCLAIN ([id number])[facility] HOSPITALHilda BROWN (SWRLAB)[address] [place] [address] Laboratory - Chemistry and C hemistry - challengeon 04-14-2025 HCG.beta subunit Qn 587.8 m[IU]/mL Female s <5 mIU/mL [facility] No Panel Informationon 04-14 Values in should double every 2 to 3 days for the first 6 weeks. Elevated concentrations of human chorionic gonadotropin (hCG) measured in the first trimester of are observed in normal , but may serve as an indication of chorionic carcinoma, hydatiform mole, or multiple . Decreasing hCG concentrations indicate threatened or missed , recent termination of , ectopic , gestosis or intrauterine . Danita- and postmenopausal females may have detectable hCG concentrations (< or = to 14 mIU/mL) due to pituitary production of hCG. Serum follicle-stimulating hormone measurement may aid in ruling-out in this population. Cutoffs of greater than 20 to 45 mIU/mL have been suggested and are method dependent. False-elevations (called phantom human chorionic gonadotropin: hCG) may occur with patients who have human antianimal or heterophilic antibodies. Some specimens may not dilute linearly due to abnormal forms of hCG. Elevated hCG concentrations not associated with are found in patients with other diseases such as tumors of the germ cells, ovaries, bladder, pancreas, stomach, lungs, and liver. This test is not intended to detect or monitor tumors or gestational trophoblastic disease. [facility] 29on 04-12-2025 29 Addended by: ASHLYN ABRAHAM on: 04/12/2025 10:39 AM Modules accepted: Orders Normal [facility] 36on 04-12-2025 36 I would advise anoth er repeat HCG quant at [facility]. I placed an order. Normal [facility] 36 I am not sure what y ou want to do..another appointment? Please advise Thanks! Normal [facility] CNOVon 04-10-2025 CNOV Office Visit (WOUCA) CATALINA CAPELLAN ([id number]) 3 F Date Time Provider Department 04/10/25 4:00 PM ASHELY CHAMBERS During your visit today, we recorded the following information about you: Temperature Pulse Respiration Blood pressure 98.5 degrees 106/minute 19/minute 100/64 Weight 72.5 kg Ashely Chambers PA 04/10/2025 3:56 PM Signed [facility] Subjective Catalinajustin Capellan is a 19 year old female. Patient presents with: Cough: Sinus pressure, drainage, ISHMAEL ear pain x 1.5 weeks test HPI The patient is a 19-year-old female with a history of diabetes mellitus, presenting for evaluation of sinus symptoms and a positive home test. Sinus Symptoms: - Onset approximately one week ago. - Reports congestion and a really bad cough. - Describes a burning sensation in the sinuses. - No fevers noted. - No medications taken for symptom relief. : - Positive home test last night; previous tests were negative. - Last menstrual period was January - Recent OB visit 03/31 with a negative blood and urine test for . - Noted a small amount of pink vaginal discharge a few days ago, with increased discharge overall. No bleeding or pink discharge since. - No abd pain, pelvic pain. - Has not started vitamins. Diabetes Mellitus: - Reports feeling like blood sugar is low during the visit. Drinking juice. - Monitoring blood sugar levels at home. Have been normal. Review of Systems Constitutional: (+) fever Ears/Nose/Mouth/Throat: (+) nasal congestion, (+) nasal burning, (+) facial pain Respiratory: (+) cough Genitourinary: (+) increased vaginal discharge Objective BP 100/64 Pulse 106 Temp 36.9 ?C (98.5 ?F) Resp 19 Wt 72.5 kg (159 lb 13.3 oz) LMP 02/09/2025 (Exact Date) SpO2 98% No BMI 25.80 kg/m? Physical Exam General: Not in acute distress, normal appearance, well-developed, not toxic-appearing HEENT - Eyes: Conjunctivae normal - Ears: Right ear: Tympanic membrane normal, ear canal normal; Left ear: Tympanic membrane normal, ear canal normal - Nose/Sinuses: Maxillary Sinus tenderness - Oropharynx: Mucous membranes moist, oropharynx clear, uvula midline Cardiovascular - Rate/Rhythm: Normal rate and regular rhythm - Heart Sounds: Normal heart sounds Pulmonary - Lung Sounds: Normal breath sounds - Respiratory Effort: Pulmonary effort normal Neurologic - Mental Status: Alert Skin: Skin warm and dry Lymphatic - Cervical: No cervical adenopathy { 1. Missed menses (N92.6) 2. , unspecified gestational age (HCC) (Z34.90) - Positive home test last night after previously negative blood test at OB visit. - Urine HCG here POSITIVE - Advised patient to restart vitamins. - Advised patient to call OB and schedule a follow-up appointment. 3. Bacterial sinusitis (J32.9) - Symptoms began one week ago, including congestion, burning sensation, and severe cough. - Lungs clear on exam. - Start Augmentin; patient has no allergies to amoxicillin. - May use Zyrtec and saline nasal spray for symptom relief. Recording using [employer] software for draft documentation of the visit was discussed with the patient/authorized resources representative; all questions welcomed and answered. Patient/authorized resources representative agreed to proceed Diagnosis and treatment plan were discussed and questions were answered to the patient's satisfaction. Pt acknowledged understanding of concepts and follow up plan. Specific signs and symptoms that would indicate the need for higher level of care were discussed in detail warranting prompt ER evaluation. History and Record Review External record(s) reviewed: prior outpatient record. Findings from review of outpatient records: seen 03/31 Differential Diagnoses - sinusitis is more likely for the following reason(s): suggested by HANDP - is more likely for the following reason(s): suggested by HANDP and consistent with laboratory studies Disposition The patient was discharged. Procedures Allergies As of Date: 04/10/2025 Noted Allergy Reaction FLAGYL (METRONIDAZOLE) 09/10/2024 5 - Intolerance KETOROLAC 07/03/2024 4 - Hives Date Reviewed: 04/10/2025 Reviewed by: Margareth Keys MA - Fully Assessed Reason for Visit: Cough [28] Cmt: Sinus pressure, drainage, ISHMAEL ear pain x 1.5 weeks test Primary Visit Diagnosis:Missed menses [N92.6] Other Visit Diagnoses:Bacterial sinusitis [J32.9, B96.89] , unspecified gestational age (HCC) [Z34.90] Order(s):UA DIP,URINE HCG (POC) [8332810] Order #: [id number]. #:[id number] amoxicillin-clavulanate potassium (AUGMENTIN) 875-125 mg per tabletTake 1 tablet by mouth two times a day for 5 days.Disp: 10 tabletRfl: 0 Prescriptions as (more content not included)... Normal [facility] 36on 03-31-2025 36 Phone call to johan lavonne Reviewed negative HCG Reviewed elevated blood sugar 296 She verb under Discussed with patient risk of DKA with large ketones in office today with elevated blood sugar Discussed need for emergency treatment Instructed patient to contact her information developer educational psychologist for the group for instructions as they may want her seen in the ED this evening and not to wait the weekend Pt verb under. Normal [facility] COMPREHENSIVE METABOLIC PANE Eric 03-31-2025 Albumin [Mass/Vol] 3.9 g/dL Normal 3.5-5.0 [facility] Comment on above: Performed By: #### L AB17, [id number] #### Fabrication Engineer: CHARLIE MCCLAIN ([id number]) [address] ALP [Catalytic activity/Vol] 110 U/L Normal 40-150 [facility] Comment on above: Performed By: #### L AB17, [id number] #### Fabrication Engineer: CHARLIE MCCLAIN ([id number]) [facility] ([facility]) [address] [place] [address] ALT [Catalytic activity/Vol] 30 U/L High <30 [facility] Comment on above: Performed By: #### L AB17, [id number] #### Fabrication Engineer: CHARLIE MCCLAIN ([id number]) [facility]) [address] [place] [address] Anion gap [Moles/Vol] 15 mmol/L High 3-13 [facility] Comment on above: Performed By: #### L AB17, [id number] #### Fabrication Engineer: CHARLIE MCCLAIN ([id number]) [facility]) [address] [place] [address] AST [Catalytic activity/Vol] 30 U/L Normal <34 [facility] Comment on above: Performed By: #### L AB17, [id number] #### Fabrication Engineer: CHARLIE MCCLAIN ([id number]) [facility] ([facility]) [address] [place] [address] Bilirubin [Mass/Vol] 0.5 mg/dL Normal <1.2 [facility] Comment on above: Performed By: #### L AB17, [id number] #### Fabrication Engineer: CHARLIE MCCLAIN ([id number]) [facility]) [address] [place] [address] Calcium [Mass/Vol] 9.8 mg/dL Normal 8.4-10.2 [facility] Comment on above: Performed By: #### L AB17, [id number] #### Fabrication Engineer: CHARLIE MCCLAIN ([id number]) [facility] ([facility]) [address] [place] [address] Chloride [Moles/Vol] 102 mmol/L Normal 98-107 [facility] Comment on above: Performed By: #### L AB17, [id number] #### Fabrication Engineer: CHARLIE MCCLAIN ([id number]) [facility] ([facility]) [address] [place] [address] CO2 [Moles/Vol] 16 mmol/L Low 22-29 [facility] Comment on above: Performed By: #### L AB17, [id number] #### Fabrication Engineer: CHARLIE MCCLAIN ([id number]) [facility]) [address] [place] [address] Creatinine [Mass/Vol] 0.85 mg/dL Normal 0.57-1.11 [facility] Comment on above: Performed By: #### L AB17, [id number] #### Fabrication Engineer: CHARLIE MCCLAIN ([id number]) [facility] ([facility]) [address] [place] [address] GLOMERULAR FILTRATION RATE ML/MIN/1.73 SQ M.PREDICTED >90.0 Normal >60.0 [facility] Comment on above: Result Comment: Calc ulation based on the Chronic Kidney Disease Epidemiology Collaboration (CKD-EPI) equation refit without adjustment for race Performed By: #### L AB17, [id number] #### Fabrication Engineer: CHARLIE MCCLAIN ([id number]) [facility] ([facility]) [address] [place] [address] [place] Glucose [Mass/Vol] 296 mg/dL High 74-100 [facility] Comment on above: Performed By: #### L AB17, [id number] #### Fabrication Engineer: CHARLIE MCCLAIN ([id number]) [facility]) [address] [place] [address] [place] Potassium [Moles/Vol] 4.2 mmol/L Normal 3.5-5.1 [facility] Comment on above: Result Comment: [facility] potassium values may be up to 0.5 mmol/L lower than serum values. Performed By: #### L AB17, [id number] #### Fabrication Engineer: CHARLIE MCCLAIN ([id number]) [facility]) [address] [place] [address] [place] Protein [Mass/Vol] 8.7 g/dL High 6.4-8.3 [facility] Comment on above: Performed By: #### L AB17, [id number] #### Fabrication Engineer: CHARLIE MCCLAIN ([id number]) [facility] ([facility]) [address] [place] [address] [place] Sodium [Moles/Vol] 133 mmol/L Low 136-145 [facility] Comment on above: Performed By: #### L AB17, [id number] #### Fabrication Engineer: CHARLIE MCCLAIN ([id number]) [facility]) [address] [place] [address] [place] Urea nitrogen [Mass/Vol] 12 mg/dL Normal 8-21 [facility] Comment on above: Performed By: #### L AB17, [id number] #### Fabrication Engineer: CHARLIE MCCLAIN ([id number]) [facility] ([facility]) [address] [place] [address] Comprehensive metabolic 1998 panelon 03-31-2025 Albumin [Mass/Vol] 3.9 g/dL 3.5 - 5.0 g/dL [facility] ALP [Catalytic activity/Vol] 110 U/L 40 - 150 U/L [facility] ALT [Catalytic activity/Vol] 30 U/L High NINF - 30 U/L [facility] Anion gap [Moles/Vol] 15 mmol/L High 3 - 13 mmol/L [facility] AST [Catalytic activity/Vol] 30 U/L NINF - 34 U/L [facility] Bilirubin [Mass/Vol] 0.5 mg/dL NINF - 1.2 mg/dL [facility] Calcium [Mass/Vol] 9.8 mg/dL 8.4 - 10. 2 mg/dL [facility] Chloride [Moles/Vol] 102 mmol/L 98 - 10 7 mmol/L [facility] CO2 [Moles/Vol] 16 mmol/L Low 22 - 29 mmol/L [facility] Creatinine [Mass/Vol] 0.85 mg/dL 0.57 - 1.11 mg/dL [facility] GFR/1.73 sq M.predicted (S/P/Bld) [Vol rate/Area] - PINF [facility] Comment on above: Calculation based on the Chronic Kidney Disease Epidemiology Collaboration (CKD-EPI) equation refit without adjustment for race Glucose [Mass/Vol] 296 mg/dL High 74 - 100 mg/dL [facility] Interpretation and review of laboratory results Abnormal [facility] Potassium [Moles/Vol] 4.2 mmol/L 3.5 - 5.1 mmol/L [facility] Comment on above: Plasma potassium sky ues may be up to 0.5 mmol/L lower than serum values. Protein [Mass/Vol] 8.7 g/dL High 6.4 - 8.3 g/dL [facility] Sodium [Moles/Vol] 133 mmol/L Low 136 - 145 mmol/L [facility] Urea nitrogen [Mass/Vol] 12 mg/dL 8 - 21 mg/dL [facility] HCG ( test) Ql (U)o n 03-31-2025 Beta HCG ( test) Ql (U) 0 [facility] Interpretation and review of laboratory results Normal [facility] NEGATIVE QC Pass [facility] POSITIVE QC Pass [facility] [employer] Preg Test, Ur Negative Negative [facility] HCG QUANTITATIVE BLOODon HCG QUANTITATIVE <2.5 Normal Females <5 [facility] Comment on above: Result Comment: NICK Spring COMMENTS: Values in should double every 2 to 3 days for the first 6 weeks. Elevated concentrations of human chorionic gonadotropin (hCG) measured in the first trimester of are observed in normal , but may serve as an indication of chorionic carcinoma, hydatiform mole, or multiple . Decreasing hCG concentrations indicate threatened or missed , recent termination of , ectopic , gestosis or intrauterine . Danita- and postmenopausal females may have detectable hCG concentrations (< or = to 14 mIU/mL) due to pituitary production of hCG. Serum follicle-stimulating hormone measurement may aid in ruling-out in this population. Cutoffs of greater than 20 to 45 mIU/mL have been suggested and are method dependent. False-elevations (called phantom human chorionic gonadotropin: hCG) may occur with patients who have human antianimal or heterophilic antibodies. Some specimens may not dilute linearly due to abnormal forms of hCG. Elevated hCG concentrations not associated with are found in patients with other diseases such as tumors of the germ cells, ovaries, bladder, pancreas, stomach, lungs, and liver. This test is not intended to detect or monitor tumors or gestational trophoblastic disease. Performed By: #### L AB17, [id number] ####Fabrication Engineer: CHARLIE MCCLAIN ([id number])[address] Office Visiton 03-31-2025 Follow-up visit [id number] Eric Capellan 2005 F Date Provider Department Center 03/31/2025 [id number] ABRAHAM [facility]i Family History Problem Relation Age of Onset No Known Problems Father No Known Problems Mother Family Status - Relation Status Age at Father Alive Mother Alive Level of Service:47095 [place] OFFICE/OUTPATIENT NEW LOW MDM 30 MINUTES (SA) Reason for Visit and Comments: New Patient [542] - No concerns Normal [facility] POCT Ketone, urine manually resultedon 03-31-2025 Interpretation and review of laboratory results Abnormal [facility] Ketones, POC (mg/dL) 160 mg/dL [facility] POC Ketones Lot Number 0 [facility] Progress Noteon 03-31-2025 Progress Note A oracle specialist was offe red to be present during her exam. The patient: declined Normal [facility] Progress Note Chief Complaint Patient presents with New Patient No concerns Patient's last menstrual period was 02/09/2025 (exact date). Allergies: Allergies[1] Medications: Current Medications[2] HPI: HPI Here to confirm Denies bleeding or pain Urine HCG in office negative History of diabetes Blood sugars not in control per patient ROS: Review of Systems Constitutional: Negative. HENT: Negative. Respiratory: Negative. Genitourinary: Positive for menstrual problem. Physical exam: BP 128/83 Pulse 88 Temp 36.6 ?C (97.8 ?F) Ht 5' 6 (1.676 m) Wt 152 lb (68.9 kg) LMP 02/09/2025 (Exact Date) No BMI 24.53 kg/m? Physical Exam Constitutional: Appearance: Normal appearance. HENT: Head: Normocephalic and atraumatic. Pulmonary: Effort: Pulmonary effort is normal. Musculoskeletal: General: Normal range of motion. Skin: General: Skin is warm and dry. Neurological: Mental Status: She is alert. Assessment and Plan: Catalina was seen today for new patient. Diagnoses and all orders for this visit: Missed menses (Primary) - POC , urine - hCG, quantitative - multivitamin () 27-0.8 MG tablet; Take 1 tablet by mouth daily. test positive Hyperglycemia due to type 1 diabetes mellitus (HCC) - POCT Ketone, urine manually resulted - Comprehensive metabolic panel Follow up if symptoms worsen or fail to improve. [1] No Known Allergies [2] Current Outpatient Medications: cholecalciferol (Vitamin D3) 25 MCG (1000 UT) tablet, Take by mouth daily., Disp: , Rfl: insulin lispro (HumaLOG) 100 UNIT/ML patient supplied pump, Inject under the skin continuous., Disp: , Rfl: multivitamin () 27-0.8 MG tablet, Take 1 tablet by mouth daily., Disp: 90 tablet, Rfl: 4 NIFEdipine XL (Procardia XL) 30 MG 24 hr tablet, Take 2 tablets (60 mg) by mouth Nightly. Do not crush, chew, or split., Disp: 60 tablet, Rfl: 0 Vit-Fe Fumarate-FA ( 1+1 PO), Take 1 tablet by mouth daily., Disp: , Rfl: Normal [facility] Progress Note Stan on patients lef t arm, patient tolerated well. Normal [facility] hCG, quantitativeon 03-31-20 25 HCG.beta subunit Qn Females <5 mIU/mL [facility] Values in should double every 2 to 3 days for the first 6 weeks. Elevated concentrations of human chorionic gonadotropin (hCG) measured in the first trimester of are observed in normal , but may serve as an indication of chorionic carcinoma, hydatiform mole, or multiple . Decreasing hCG concentrations indicate threatened or missed , recent termination of , ectopic , gestosis or intrauterine . Danita- and postmenopausal females may have detectable hCG concentrations (< or = to 14 mIU/mL) due to pituitary production of hCG. Serum follicle-stimulating hormone measurement may aid in ruling-out in this population. Cutoffs of greater than 20 to 45 mIU/mL have been suggested and are method dependent. False-elevations (called phantom human chorionic gonadotropin: hCG) may occur with patients who have human antianimal or heterophilic antibodies. Some specimens may not dilute linearly due to abnormal forms of hCG. Elevated hCG concentrations not associated with are found in patients with other diseases such as tumors of the germ cells, ovaries, bladder, pancreas, stomach, lungs, and liver. This test is not intended to detect or monitor tumors or gestational trophoblastic disease. [facility] 03-25-2025 [facility] Telephone (EMQ) CATALINA CAPELLAN ([id number]) 3 F Date Time Provider Department 03/25/25 ALEKSANDAR DOBSON EM During your visit today, we recorded the following information about you: Raquel Barnes MA 03/25/2025 5:47 PM Signed Initiated PA for insulin pump subcutaneous cartridge (OMNIPOD 5 G6-G7 PODS, GEN 5,) through [employer] Questions Completed Waiting for determination Raquel [place] [employer] [facility] Endocrinology AND Metabolic [place] Allergies As of Date: 03/25/2025 Noted Allergy Reaction FLAGYL (METRONIDAZOLE) 09/10/2024 5 - Intolerance KETOROLAC 07/03/2024 4 - Hives Date Reviewed: 03/03/2025 Reviewed by: Court Zaldivar MA - Fully Assessed Reason for Visit: Medication Preauthorization [914] Cmt: insulin pump subcutaneous cartridge (OMNIPOD 5 G6-G7 PODS, GEN 5,) Prescriptions as of 03/25/2025 - insulin pump subcutaneous cartridge (OMNIPOD 5 G6-G7 PODS, GEN 5,) Inject 1 cartridge subcutaneously every 72 hours. - insulin lispro (HUMALOG KWIKPEN) 100 unit/mL Inject up to 50units SQ daily as directed based on IC ratio and correction factor - Etonogestrel-Ethinyl Estradiol (NUVARING) 0.12-0.015 mg/24 hr vaginal ring Use 1 each vaginally as directed. Insert vaginally and leave in place for 3 consecutive weeks, then remove for 1 week. - fluticasone (FLONASE) 50 mcg/actuation nasal spray Use 2 sprays in each nostril once daily. Rinse mouth after use. - DEXCOM G6 SENSOR leny Inject 1 Each subcutaneously every 2 weeks. - insulin scallop cutter machine cart,aut,G6/7,cntr (OMNIPOD 5 G6-G7 INTRO KT,GEN5,) crtg For use with the pump - insulin glargine (LANTUS SOLOSTAR U-100 INSULIN) 100 unit/mL (3 mL) Inject 15 Units subcutaneously daily at bedtime. - ONETOUCH DELICA PLUS LANCET 33 gauge Use with blood glucose test 4 times daily. Insulin Dep? Yes - ONETOUCH VERIO TEST STRIPS test strip Use with blood glucose test 4 times daily. Insulin Dep? Yesday - UNIFINE PENTIPS PLUS 32 gauge x Use as directed to administer insulin 4-6 times per day. - Blood-Glucose Transmitter (DEXCOM G6 TRANSMITTER) leny 1 Each once every month. - acetaminophen-caffeine (EXCEDRIN TENSION HEADACHE) 500-65 mg tablet Take 1 tablet by mouth every 6 hours as needed. - cetirizine (ZYRTEC) 10 mg tablet Take 10 mg by mouth as needed for cold/allergy symptoms. As needed - insulin lispro (HUMALOG KWIKPEN) 100 unit/mL In case of pump failure- take upto 30 units dialy - alcohol swabs Use as directed to test metered glucose and administer insulin. - ONETOUCH VERIO FLEX METER Use as directed to test metered glucose - OMNIPOD 5 G6 INTRO KIT, GEN 5, crtg as directed. Problem List As Of Date 03/25/2025 Noted Resolved Constipation during in first trimeste*02/12/2010 06/10/2024 Abdominal pain [R10.9] 02/12/2010 Sprain of ligament of right ankle [S93.401A] 04/10/2022 08/13/2023 9 weeks gestation of [Z3A.09] 08/13/2023 06/10/2024 Pre-existing type 1 diabetes mellitus in pregna*08/13/2023 06/10/2024 Nausea and vomiting during [O21.9] 08/13/2023 06/10/2024 Heart palpitations [R00.2] 08/13/2023 Shortness of breath [R06.02] 08/13/2023 Heartburn during in first trimester [*08/13/2023 06/10/2024 Family history of Down syndrome [Z82.79] 08/13/2023 Asymptomatic bacteriuria during [O99.*08/13/2023 06/10/2024 Subchorionic hematoma in first trimester [O41.8*08/13/2023 06/10/2024 Vaginal discharge during in first tri*08/13/2023 06/10/2024 Kidney stone complicating , first trim*08/13/2023 06/10/2024 UTI (urinary tract infection) during ,*08/15/2023 06/10/2024 Encounter Status:Closed by RAQUEL BARNES on 03/25/25 [facility] Matthias 03-20-2025 [facility] Telephone (ENWSTR) CATALINA CAPELLAN ([id number]) 3 F Date Time Provider Department 03/20/25 KOURTNEY SHERMANDY ENWSTR During your visit today, we recorded the following information about you: Breanne Degroot MA 03/20/2025 9:29 AM Signed Fax received from [employer] for dexcom G6 transmitter. Fax forwarded to [email or web address] Breanne Degroot MA Allergies As of Date: 03/20/2025 Noted Allergy Reaction FLAGYL (METRONIDAZOLE) 09/10/2024 5 - Intolerance KETOROLAC 07/03/2024 4 - Hives Date Reviewed: 03/03/2025 Reviewed by: Court Zaldivar MA - Fully Assessed Reason for Visit: Orders [131] Cmt: Prior Auth dexcom G6 transmitter Prescriptions as of 03/20/2025 - Etonogestrel-Ethinyl Estradiol (NUVARING) 0.12-0.015 mg/24 hr vaginal ring Use 1 each vaginally as directed. Insert vaginally and leave in place for 3 consecutive weeks, then remove for 1 week. - fluticasone (FLONASE) 50 mcg/actuation nasal spray Use 2 sprays in each nostril once daily. Rinse mouth after use. - DEXCOM G6 SENSOR leny Inject 1 Each subcutaneously every 2 weeks. - insulin scallop cutter machine cart,aut,G6/7,cntr (OMNIPOD 5 G6-G7 INTRO KT,GEN5,) crtg For use with the pump - insulin glargine (LANTUS SOLOSTAR U-100 INSULIN) 100 unit/mL (3 mL) Inject 15 Units subcutaneously daily at bedtime. - ONETOUCH DELICA PLUS LANCET 33 gauge Use with blood glucose test 4 times daily. Insulin Dep? Yes - ONETOUCH VERIO TEST STRIPS test strip Use with blood glucose test 4 times daily. Insulin Dep? Yesday - UNIFINE PENTIPS PLUS 32 gauge x Use as directed to administer insulin 4-6 times per day. - Blood-Glucose Transmitter (DEXCOM G6 TRANSMITTER) leny 1 Each once every month. - acetaminophen-caffeine (EXCEDRIN TENSION HEADACHE) 500-65 mg tablet Take 1 tablet by mouth every 6 hours as needed. - cetirizine (ZYRTEC) 10 mg tablet Take 10 mg by mouth as needed for cold/allergy symptoms. As needed - insulin pump cart,auto,BT,G6/7 (OMNIPOD 5 G6-G7 PODS, GEN 5,) crtg Inject 1 Each subcutaneously every 72 hours. - insulin lispro (HUMALOG KWIKPEN) 100 unit/mL Inject up to 50units SQ daily as directed based on IC ratio and correction factor - insulin lispro (HUMALOG KWIKPEN) 100 unit/mL In case of pump failure- take upto 30 units dialy - alcohol swabs Use as directed to test metered glucose and administer insulin. - ONETOUCH VERIO FLEX METER Use as directed to test metered glucose - OMNIPOD 5 G6 INTRO KIT, GEN 5, crtg as directed. Problem List As Of Date 03/20/2025 Noted Resolved Constipation during in first trimeste*02/12/2010 06/10/2024 Abdominal pain [R10.9] 02/12/2010 Sprain of ligament of right ankle [S93.401A] 04/10/2022 08/13/2023 9 weeks gestation of [Z3A.09] 08/13/2023 06/10/2024 Pre-existing type 1 diabetes mellitus in pregna*08/13/2023 06/10/2024 Nausea and vomiting during [O21.9] 08/13/2023 06/10/2024 Heart palpitations [R00.2] 08/13/2023 Shortness of breath [R06.02] 08/13/2023 Heartburn during in first trimester [*08/13/2023 06/10/2024 Family history of Down syndrome [Z82.79] 08/13/2023 Asymptomatic bacteriuria during [O99.*08/13/2023 06/10/2024 Subchorionic hematoma in first trimester [O41.8*08/13/2023 06/10/2024 Vaginal discharge during in first tri*08/13/2023 06/10/2024 Kidney stone complicating , first trim*08/13/2023 06/10/2024 UTI (urinary tract infection) during ,*08/15/2023 06/10/2024 Encounter Status:Closed by [facility]NE [facility]ENWSTR[facility] CATALINA CAPELLAN ([id number]) 3 F Date Time Provider Department 03/14/25 KOURTNEY SHERMAN ENWSTR During your visit today, we recorded the following information about you: Jairo Michael RN 03/14/2025 8:42 AM Signed Left message to return call to office. She needs to speak to nurse re: report of glucose >800 and kidney pain per [employer] message sent 03/13/2025. Our office has no recent Omnipod/Dexcom data for her blood sugars or insulin requirements. Questions for Pt: 1) How is she currently checking her blood sugar? 2) How is she currently treating her high glucose levels? 3) Further explanation of kidney pain - UTI, other infection, etc? Next OV with Dr. Sherman: 04/11/2025 After reviewing Pt's chart, she currently has no PCP but is trying to obtain one. Dr. Sherman is out of the office until 04/10/2025. She will need to seek evaluation in ED if her glucose remains difficult to manage with signs/symptoms of kidney pain or UTI. Jairo Michael RN March 14, 2025 8:42 AM Allergies As of Date: 03/14/2025 Noted Allergy Reaction FLAGYL (METRONIDAZOLE) 09/10/2024 5 - Intolerance KETOROLAC 07/03/2024 4 - Hives Date Reviewed: 03/03/2025 Reviewed by: Court Zaldivar MA - Fully Assessed Reason for Visit: Patient Question [1477] Prescriptions as of 03/14/2025 - Etonogestrel-Ethinyl Estradiol (NUVARING) 0.12-0.015 mg/24 hr vaginal ring Use 1 each vaginally as directed. Insert vaginally and leave in place for 3 consecutive weeks, then remove for 1 week. - fluticasone (FLONASE) 50 mcg/actuation nasal spray Use 2 sprays in each nostril once daily. Rinse mouth after use. - DEXCOM G6 SENSOR leny Inject 1 Each subcutaneously every 2 weeks. - insulin scallop cutter machine cart,aut,G6/7,cntr (OMNIPOD 5 G6-G7 INTRO KT,GEN5,) crtg For use with the pump - insulin glargine (LANTUS SOLOSTAR U-100 INSULIN) 100 unit/mL (3 mL) Inject 15 Units subcutaneously daily at bedtime. - ONETOUCH DELICA PLUS LANCET 33 gauge Use with blood glucose test 4 times daily. Insulin Dep? Yes - ONETOUCH VERIO TEST STRIPS test strip Use with blood glucose test 4 times daily. Insulin Dep? Yesday - UNIFINE PENTIPS PLUS 32 gauge x Use as directed to administer insulin 4-6 times per day. - Blood-Glucose Transmitter (DEXCOM G6 TRANSMITTER) leny 1 Each once every month. - acetaminophen-caffeine (EXCEDRIN TENSION HEADACHE) 500-65 mg tablet Take 1 tablet by mouth every 6 hours as needed. - cetirizine (ZYRTEC) 10 mg tablet Take 10 mg by mouth as needed for cold/allergy symptoms. As needed - insulin pump cart,auto,BT,G6/7 (OMNIPOD 5 G6-G7 PODS, GEN 5,) crtg Inject 1 Each subcutaneously every 72 hours. - insulin lispro (HUMALOG KWIKPEN) 100 unit/mL Inject up to 50units SQ daily as directed based on IC ratio and correction factor - insulin lispro (HUMALOG KWIKPEN) 100 unit/mL In case of pump failure- take upto 30 units dialy - alcohol swabs Use as directed to test metered glucose and administer insulin. - ONETOUCH VERIO FLEX METER Use as directed to test metered glucose - OMNIPOD 5 G6 INTRO KIT, GEN 5, crtg as directed. Problem List As Of Date 03/14/2025 Noted Resolved Constipation during in first trimeste*02/12/2010 06/10/2024 Abdominal pain [R10.9] 02/12/2010 Sprain of ligament of right ankle [S93.401A] 04/10/2022 08/13/2023 9 weeks gestation of [Z3A.09] 08/13/2023 06/10/2024 Pre-existing type 1 diabetes mellitus in pregna*08/13/2023 06/10/2024 Nausea and vomiting during [O21.9] 08/13/2023 06/10/2024 Heart palpitations [R00.2] 08/13/2023 Shortness of breath [R06.02] 08/13/2023 Heartburn during in first trimester [*08/13/2023 06/10/2024 Family history of Down syndrome [Z82.79] 08/13/2023 Asymptomatic bacteriuria during [O99.*08/13/2023 06/10/2024 Subchorionic hematoma in first trimester [O41.8*08/13/2023 06/10/2024 Vaginal discharge during in first tri*08/13/2023 06/10/2024 Kidney stone complicating , first trim*08/13/2023 06/10/2024 UTI (urinary tract infection) during ,*08/15/2023 06/10/2024 Encounter Status:Closed by JAIRO MICHAEL on 03/14/25 [facility] 36on 03-13-2025 36 S: Patient spoke wit h CAC nurse regarding problem-4 weeks-vaginal bleeding/clots B: Onset of symptoms/concern 3 days A: Patient reports (+) home test x 3, large amount of vaginal bleeding, clots, mild intermittent abdominal pain. Denies fever. Patient states she needs appointment to determine if she skinny risk so she can be seen at [facility]. 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 R: Patient advised to be evaluated in emergency room. Patient verbalized understanding will go to ED in [place]. No further needs at this time. Reason for Disposition Intermittent lower abdominal pain (e.g., cramping) lasting > 24 hours Protocols used: - Vaginal Bleeding Less Than 20 Weeks [id number] [facility] CNOVon 03-03-2025 CNOV Office Visit (WOUCA) JAYDEN CAPELLANEE Jen ([id number]) 3 F Date Time Provider Department 03/03/25 11:00 AM ANDREW ALSTON WONAINA During your visit today, we recorded the following information about you: Temperature Pulse Respiration Blood pressure 97.9 degrees 95/minute 18/minute 133/73 Weight 71.4 kg Andrew Alston APRN.COOPERATIVE MANAGER 03/03/2025 12:03 PM Signed [facility] Subjective Catalina Li Marilia is a 19 year old female. Patient presents with: Head Congestion: ST<,CAT, cough, runny nose, low back pain x2 days, reports elevated glucose readings since being sick HPI The patient is a 19-year-old female with a history of type 1 diabetes mellitus, presenting with upper respiratory symptoms and back pain. No injury of her back. Upper Respiratory Symptoms: - Onset a few days ago. - Symptoms include sore throat, fever, cough, headache, ear pain, and congestion. - Jtmq-[id number]-faxsbxr medications, including Flonase, have not provided relief. - Boyfriend is currently sick; son is fussy but not sick, sick. - Son recently recovered from hand, foot, and mouth disease. - Cough is productive. - History of recurrent ear infections. Back Pain: - Severe back pain for the past few weeks, radiating to hips and up the spine. - Described as a nerve pain, with shooting pain down the back of the legs. Does not have neruopathy from diabetes at this time. She does see an endocrinolgist and is trying to get better control of her sugars. - Aggravated by movement, particularly walking and hip movement. - Tightness in hips noted. - Minimal relief from Tylenol. Type 1 Diabetes Mellitus: - Blood glucose levels fluctuating between 30-600 mg/dL. - Recent readings around 300 mg/dL. - Managed by an information developer; currently without a primary care provider. Review of Systems Constitutional: (+) fever Head: (+) headache Ears/Nose/Mouth/Throat: (+) ear pain, (+) ear fullness, (+) sore throat, (+) nasal congestion Respiratory: (+) cough, (+) productive cough Musculoskeletal: (+) back pain, (+) hip pain, (+) radiating leg pain, (-) muscle spasms Objective BP 133/73 Pulse 95 Temp 36.6 ?C (97.9 ?F) Resp 18 Wt 71.4 kg (157 lb 6.5 oz) LMP 02/09/2025 (Exact Date) SpO2 99% BMI 25.41 kg/m? PAST MEDICAL HISTORY Diagnosis Date Constipated Eczema POTS (postural orthostatic tachycardia syndrome) Sprain of ligament of right ankle 04/10/2022 Type 1 diabetes (HCC) PAST SURGICAL HISTORY Procedure Laterality Date SECTION HX 01/2024 CYSTOSCOPY,INSERT URETHRAL STENT EGD LITHROTRIPSY ALLERGIES Flagyl [Metronidazole] and Ketorolac MEDICATIONS insulin glargine (LANTUS SOLOSTAR U-100 INSULIN) 100 unit/mL (3 mL) Inject 15 Units subcutaneously daily at bedtime. insulin lispro (HUMALOG KWIKPEN) 100 unit/mL Inject up to 50units SQ daily as directed based on IC ratio and correction factor insulin lispro (HUMALOG KWIKPEN) 100 unit/mL In case of pump failure- take upto 30 units dialy amoxicillin-clavulanate potassium (AUGMENTIN) 875-125 mg per tablet Take 1 tablet by mouth every 12 hours for 5 days. naproxen (NAPROSYN) 500 mg tablet Take 1 tablet by mouth two times a day as needed (FOR PAIN - TAKE WITH FOOD.) for up to 7 days. tiZANidine (ZANAFLEX) 2 mg tablet Take 1 tablet by mouth every 8 hours as needed for up to 7 days. Etonogestrel-Ethinyl Estradiol (NUVARING) 0.12-0.015 mg/24 hr vaginal ring Use 1 each vaginally as directed. Insert vaginally and leave in place for 3 consecutive weeks, then remove for 1 week. (Patient not taking: Reported on 02/08/2025) fluticasone (FLONASE) 50 mcg/actuation nasal spray Use 2 sprays in each nostril once daily. Rinse mouth after use. (Patient taking differently: Use 2 sprays in each nostril once daily. Rinse mouth after use. prn) DEXCOM G6 SENSOR leny Inject 1 Each subcutaneously every 2 weeks. insulin scallop cutter machine cart,aut,G6/7,cntr (OMNIPOD 5 G6-G7 INTRO KT,GEN5,) crtg For use with the pump (Patient not taking: Reported on 02/14/2025) fluticasone (FLONASE) 50 mcg/actuation nasal spray Use 2 Sprays in each nostril once daily. Rinse mouth after use. (Patient not taking: Reported on 11/15/2024) ONETOUCH DELICA PLUS LANCET 33 gauge Use with blood glucose test 4 times daily. Insulin Dep? Yes ONETOUCH VERIO TEST STRIPS test strip Use with blood glucose test 4 times daily. Insulin Dep? Yesday UNIFINE PENTIPS PLUS 32 gauge x /32 Use as directed to administer insulin 4-6 times per day. Blood-Glucose Transmitter (DEXCOM G6 TRANSMITTER) leny 1 Each once every month. acetaminophen-caffeine (EXCEDRIN TENSION HEADACHE) 500-65 mg tablet Take 1 tablet by mouth every 6 hours as needed. cetirizine (ZYRTEC) 10 mg tablet Take 10 mg by mouth as needed for cold/allergy symptoms. As needed (Patient not taking: Reported on 09/20/2024) insulin pump cart,auto,BT,G6/7 (OMN (more content not included)... Normal [facility] US Pelvison 02-21-2025 Indication Pain Impression The uterus is anteverted and measures 91 mm x 38 mm x 52 mm. The endometrial thickness is 10 mm. The right ovary measures 34 mm x 26 mm x 20 mm. The left ovary measures 35 mm x 31 mm x 16 mm. There is no free fluid visualized. Recommendations Normal pelvic ultrasound. Menstrual History LMP on 02/09/2025 Method Transabdominal and transvaginal ultrasound examination, 3D ultrasound examination, Color Doppler examination. View: Adequate visualization Uterus Uterus: Visualized Uterus position: anteverted Description of uterine malformations: normally shaped Myometrium: normal Endometrium: endometrial midline: linear Cervix details: cystic lesions identified suggesting superficial Nabothian cysts Uterus length 91 mm Uterus width 52 mm Uterus height 38 mm Uterus Vol 92.7 cm Endometrial thickness, total 10.0 mm Fibroids: No fibroids identified Polyps: No polyps identified Right Ovary Rt ovary: Visualized Outline: smooth Rt ovary morphology: premenopausal normal follicular Rt ovary D1 34 mm Rt ovary D2 26 mm Rt ovary D3 20 mm Rt ovary Vol 9.2 cm Rt ovarian cyst(s): No cysts identified Left Ovary Lt ovary: Visualized Outline: smooth Lt ovary morphology: premenopausal normal follicular Lt ovary D1 35 mm Lt ovary D2 31 mm Lt ovary D3 16 mm Lt ovary Vol 9.1 cm Lt ovarian cyst(s): No cysts identified Cul de Sac Visualized. no free fluid visualized Performed By: Conchita Pickett RDMS Read By: Letitia Cevallos M.D. MATERNAL MEDICINE [facility] Radiology Study observation (narrative) [facility] Matthias 02-17-2025 CNPN Telephone (ENWSTR) CATALINA CAPELLAN ([id number]) 3 F Date Time Provider Department 02/17/25 KOURTNEY SHERMAN ENWSTR During your visit today, we recorded the following information about you: Breanne Degroot MA 02/17/2025 4:08 PM Signed Prior Authorization request received. Fax forwarded to [facility] [employer] fax. Breanne Degroot MA Allergies As of Date: 02/17/2025 Noted Allergy Reaction FLAGYL (METRONIDAZOLE) 09/10/2024 5 - Intolerance KETOROLAC 07/03/2024 4 - Hives Date Reviewed: 02/14/2025 Reviewed by: Breanne Degroot MA - Fully Assessed Reason for Visit: Orders [681] Cmt: Prior Authorization request Dexcom G6 transmitter Prescriptions as of 02/17/2025 - Etonogestrel-Ethinyl Estradiol (NUVARING) 0.12-0.015 mg/24 hr vaginal ring Use 1 each vaginally as directed. Insert vaginally and leave in place for 3 consecutive weeks, then remove for 1 week. - fluticasone (FLONASE) 50 mcg/actuation nasal spray Use 2 sprays in each nostril once daily. Rinse mouth after use. - DEXCOM G6 SENSOR leny Inject 1 Each subcutaneously every 2 weeks. - insulin scallop cutter machine cart,aut,G6/7,cntr (OMNIPOD 5 G6-G7 INTRO KT,GEN5,) crtg For use with the pump - fluticasone (FLONASE) 50 mcg/actuation nasal spray Use 2 Sprays in each nostril once daily. Rinse mouth after use. - insulin glargine (LANTUS SOLOSTAR U-100 INSULIN) 100 unit/mL (3 mL) Inject 15 Units subcutaneously daily at bedtime. - ONETOUCH DELICA PLUS LANCET 33 gauge Use with blood glucose test 4 times daily. Insulin Dep? Yes - ONETOUCH VERIO TEST STRIPS test strip Use with blood glucose test 4 times daily. Insulin Dep? Yesday - UNIFINE PENTIPS PLUS 32 gauge x Use as directed to administer insulin 4-6 times per day. - Blood-Glucose Transmitter (DEXCOM G6 TRANSMITTER) leny 1 Each once every month. - acetaminophen-caffeine (EXCEDRIN TENSION HEADACHE) 500-65 mg tablet Take 1 tablet by mouth every 6 hours as needed. - cetirizine (ZYRTEC) 10 mg tablet Take 10 mg by mouth as needed for cold/allergy symptoms. As needed - insulin pump cart,auto,BT,G6/7 (OMNIPOD 5 G6-G7 PODS, GEN 5,) crtg Inject 1 Each subcutaneously every 72 hours. - insulin lispro (HUMALOG KWIKPEN) 100 unit/mL Inject up to 50units SQ daily as directed based on IC ratio and correction factor - insulin lispro (HUMALOG KWIKPEN) 100 unit/mL In case of pump failure- take upto 30 units dialy - alcohol swabs Use as directed to test metered glucose and administer insulin. - ONETOUCH VERIO FLEX METER Use as directed to test metered glucose - OMNIPOD 5 G6 INTRO KIT, GEN 5, crtg as directed. Problem List As Of Date 02/17/2025 Noted Resolved Constipation during in first trimeste*02/12/2010 06/10/2024 Abdominal pain [R10.9] 02/12/2010 Sprain of ligament of right ankle [S93.401A] 04/10/2022 08/13/2023 9 weeks gestation of [Z3A.09] 08/13/2023 06/10/2024 Pre-existing type 1 diabetes mellitus in pregna*08/13/2023 06/10/2024 Nausea and vomiting during [O21.9] 08/13/2023 06/10/2024 Heart palpitations [R00.2] 08/13/2023 Shortness of breath [R06.02] 08/13/2023 Heartburn during in first trimester [*08/13/2023 06/10/2024 Family history of Down syndrome [Z82.79] 08/13/2023 Asymptomatic bacteriuria during [O99.*08/13/2023 06/10/2024 Subchorionic hematoma in first trimester [O41.8*08/13/2023 06/10/2024 Vaginal discharge during in first tri*08/13/2023 06/10/2024 Kidney stone complicating , first trim*08/13/2023 06/10/2024 UTI (urinary tract infection) during ,*08/15/2023 06/10/2024 Encounter Status:Closed by BREANNE DEGROOT on 02/17/25 [facility] CNOVmartin 02-14-2025 CNOV Office Visit (ENWSTR ) CATALINA CAPELLAN ([id number]) 3 F Date Time Provider Department 02/14/25 3:40 PM KOURTNEY SHERMANWSTHIERRY During your visit today, we recorded the following information about you: Temperature Pulse Respiration Blood pressure 99.1 degrees 102/minute 14/minute 112/74 Weight Last Period 72.1 kg 02/09/25 Jairo Michael RN 02/14/2025 6:25 PM Signed Name: Catalina Capellan Date of : 2005 Report Created: 02/14/2025 Date Range: Jan 16, 2025 - Feb 14, 2025 - - - - - - - - - - - - - - - - - - - - - - - - - - - INSULIN - DEVICE From insulin pump Insulin/Day: 41.4 units Overrides (%): 0% (0 boluses) # Bolus/Day: 2 Bolus %/Day: 49% Basal %/Day: 51% Average Bolus: 11 units Correction Bolus/Day: 0 (0%) - - - - - - - - - - - - - - - - - - - - - - - - - - - DEVICES Device Name: Insulet Omnipod? 5 System Serial Number: [id number] Sync Date: 02/14/25 Device Time Offset (hh:mm): +00:00 Device Name: Insulet Omnipod? 5 System Serial Number: [id number] Sync Date: 11/22/24 Device Time Offset (hh:mm): +00:00 Device Name: Insulet Omnipod? 5 System Serial Number: [id number] Sync Date: 11/04/24 Device Time Offset (hh:mm): +00:00 Device Name: Insulet Omnipod? 5 [employer] Serial Number: Insulet Omnipod 5 Sync Date: 12/15/23 Device Time Offset (hh:mm): +00:00 - - - - - - - - - - - - - - - - - - - - - - - - - - - PUMP SETTINGS Basal 1 - current Start Time Basal Rates Target BG Insulin to Carb Ratio Sensitivity (ISF) (Units/hr) (mg/dL) (g/Unit) (mg/dL/Unit) 12:00 AM 1.15 140 10 50 6:00 AM 1.15 140 10 50 10:00 AM 1.15 140 10 50 2:00 PM 1.15 140 10 50 5:00 PM 1.15 140 10 50 8:00 PM 1.15 140 10 50 Total 27.6 Active Insulin Time: 2 hours Kourtney Sherman MD 02/14/2025 6:25 PM Signed [facility] Follow up note Referred by: Breanne Joshi MD (OBGYN) Chief complaint: Type 1 Diabetes mellitus History of Present Illness: Catalina Capellan is a 19 year old female with type 1 Diabetes who is presenting for follow up of type 1 DM. Initial visit on 07/18/24. -Initially diagnosed: In Mar 2023 -Circumstances around diagnosis: she had symptoms of polyuria, polydipsia, weight loss and she was admitted to hospital with DKA when she had symptoms and went to the ED. She was being managed by [facility] but was dropped from practice after she had her baby in 01/2024 Started on Omnipod 5 in Apr 2023. PMH: GERD, POTS . On control: on Verito now She is not breast feeding . Symptoms previously reported Recurrent yeast infections. Denied any weight changes recently Interval history: 02/14/25: She did not have her pump with her on last visit, no remote on this visit. But no sugar readings could be obtained. She is not using Dexcom and is checking BG with finger sticks. She reports having BG as low as 20s on the glucometer. Does not put in BG into her pump Reports she has been doing overall better for the last week as compared to last visit She could not tell the staff if she is using a transmitter or not, as she has not picked the prescription from the pharmacy She asks for paperwork for [place] driver's license Complications: Cardiovascular -- No Statin Use -- No Retinopathy -- No Last NUBIA/Retina Eval: reportedly August 2023 after checking her calendar, no repeat testing done yet although recommended Nephropathy -- not known MARYLU/ARB Use -- No Polyneuropathy -- No Foot Exam: done in office in 10/2024 Obesity -- No Other -- No -Family history of diabetes mellitus: type 2 DM in few family members Personal history of DKA or HHS-- DKA at diagnosis Personal history of pancreatitis-- No History of alcohol consumption--No Family history of thyroid cancer-- No Personal history of Urinary tract infections -- None is the recent past Diabetic education class: not completed Diabetes Medications -Current regimen: Omnipod 5 with Dexcom G6- started 1 month after diagnosis- in Apr 2023. Frequently administers correction doses, which she reports are effective. -Misses doses: Reports missing boluses 2-3 times per week. Occasionally administers insulin postprandially if preprandial bolus is forgotten. Previous A1c in December 2023: 5.9%. today POC is 9.4% Reports improvement in glycemic control over the past 1-2 months. Has been manually calculating bolus doses rather than using the pump's calculator. I changed the settings on her pump myself on last visit, as she had difficulty maneuvering the settings on her phone Current pump settings: as per information available on glooco Basal: 12 am : 1.15 units/hr Total basal: 24 units Insulin to carb ratio: 12 am - 12 am - 1: 10 ISF: 12 am: 50 mg/dl BG correction threshold 140 mg/dl BG target range: 110 mg/dl Active in (more content not included)... Normal [facility] HEMOGLOBIN A1C (POC)on 02-14 HbA1c (Bld) [Mass fraction] 9.8 % Abnormal 4.3 - 5.6 % [facility] Comment on above: Location:[facility], [address] , [place], [address] Point of care (POC) Hemoglobin A1c (HGBA1C) testing is intended to assess glucose control and provide a management tool for patients known to have diabetes and their healthcare providers. Target HGBA1C levels may depend on specific clinical circumstances. POC HGBA1C is not intended for use as a diagnostic or screening test; laboratory-based testing should be used for diagnostic purposes. The following information is supplemental and may not be applicable to specific diabetes management situations: The POC device family resource management specialist provides a normal range of 4.2% to 6.5% for the HGBA1C POC test. However, the [place] [employer] guidelines indicate that patients with HGBA1C in the range of 5.7% to 6.4% are at increased risk for development of diabetes and that intervention by lifestyle modification may be beneficial. A HGBA1C level greater than or equal to 6.5% is considered diagnostic of diabetes, pending confirmatory testing. Use of HGBA1C testing to evaluate glucose control may not be appropriate for patients with hemoglobin variants or other conditions (e.g. anemia) that alter red blood cell lifespan. Interpretation and review of laboratory results Abnormal [facility] B-HCG SerPl-aCncon 5 HCG.beta subunit Qn m[IU]/mL Normal <5.0 [facility] Comment on above: Order Comment: Speci men Type: BLOOD SPECIMENOrdering Facility: [facility] Address: [address] [place] [address] Result Comment: Marjan frost Performed By: #### 2 1198-7 ####[facility] [id number] [place] [address] [place] BACTERIAL VAGINOSIS NAATon 0 02-08-2025 Lactobacillus crispatus+gasseri+chente enii + Gardnerella vaginalis + Atopobium vaginae rRNA FIORELLA+probe Ql (Vag fld) Not detected Normal Not detected [facility] Comment on above: Order Comment: Speci men Type: SWABOrdering Facility: [facility] Address: [address] [place] [address] Performed By: #### C VTV, BVAMP ####[facility] [id number] [place] [address] [place] Bacteria Ur Culton 5 Bacteria identified Cx Nom (U) ORGANISM ID: 1 50,000-<100,000 CFU/ml Normal urogenital kishore Normal [facility] Comment on above: Performed By: #### 6 30-4 ####[facility] [id number] [place] [address] [place] JAYME/TRICHOMONAS NAATon 0 02-08-2025 C. glabrata RNA FIORELLA+probe Ql (Vag fld) Not detected Normal Not detected [facility] Comment on above: Order Comment: Speci men Type: SWABOrdering Facility: [facility] Address: [address], [place] [address] Performed By: #### C VTV, BVAMP ####[facility] [id number] [address] [place] Jayme sp DNA FIORELLA+probe Ql (Vag fld) Not detected Normal Not detected [facility] Comment on above: Order Comment: Speci men Type: SWABOrdering Facility: [facility] Address: [address] [place] [address] Result Comment: The Jayme species group target includes C. albicans, C. tropicalis, C. parapsilosis, and C. dubliniensis. Performed By: #### C VTV, BVAMP ####[facility] [id number] [address] T. vaginalis DNA FIORELLA+probe Ql (Unsp spec) Not detected Normal Not detected [facility] Comment on above: Order Comment: Speci men Type: SWABOrdering Facility: [facility] Address: [address] [place] [address] Performed By: #### C VTV, BVAMP ####[facility] [id number] [address] [place] CNOVon 02-08-2025 CNOV Office Visit (OBGYWM ) CATALINA CAPELLAN ([id number]) 3 F Date Time Provider Department 02/08/25 4:00 PM ROLAND TORO During your visit today, we recorded the following information about you: Blood pressure Weight Last Period 114/70 72.1 kg 01/14/25 Roland Toro APRN.COOPERATIVE MANAGER 02/08/2025 4:38 PM Signed Commercial Maintenance Technician offered: Patient declines. Catalina Capellan is a 19 year old female who presents for problem visit of pelvic pain. HPI: Catalina presents for pelvic pain and concern for . She states it has been going on for 3 days. Pain is mainly located around her c/s scar. States that it is red and swollen. LMP 01/14/2025. Reports vaginal discharge. Does have Type 1 Diabetes. 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: Sexual Activity: Yes; Male Contraception: No contraception data on record PAST MEDICAL HISTORY Diagnosis Date Constipated Eczema POTS (postural orthostatic tachycardia syndrome) Sprain of ligament of right ankle 04/10/2022 Type 1 diabetes (HCC) PAST SURGICAL HISTORY Procedure Laterality Date SECTION HX 01/2024 CYSTOSCOPY,INSERT URETHRAL STENT EGD LITHROTRIPSY FAMILY HISTORY Problem Relation Age of Onset other (Hysterectomy) Mother other (Other) Father Unknown GI Maternal Grandmother other (Sponge Kidney) Maternal Grandmother Hypertension Maternal Grandfather Heart Attack Maternal Grandfather SOCIAL HISTORY[1] Current Outpatient Medications Medication Sig Etonogestrel-Ethinyl Estradiol (NUVARING) 0.12-0.015 mg/24 hr vaginal ring Use 1 each vaginally as directed. Insert vaginally and leave in place for 3 consecutive weeks, then remove for 1 week. fluticasone (FLONASE) 50 mcg/actuation nasal spray Use 2 sprays in each nostril once daily. Rinse mouth after use. DEXCOM G6 SENSOR leny Inject 1 Each subcutaneously every 2 weeks. insulin scallop cutter machine cart,aut,G6/7,cntr (OMNIPOD 5 G6-G7 INTRO KT,GEN5,) crtg For use with the pump fluticasone (FLONASE) 50 mcg/actuation nasal spray Use 2 Sprays in each nostril once daily. Rinse mouth after use. (Patient not taking: Reported on 11/15/2024) insulin glargine (LANTUS SOLOSTAR U-100 INSULIN) 100 unit/mL (3 mL) Inject 15 Units subcutaneously daily at bedtime. ONETOUCH DELICA PLUS LANCET 33 gauge Use with blood glucose test 4 times daily. Insulin Dep? Yes ONETOUCH VERIO TEST STRIPS test strip Use with blood glucose test 4 times daily. Insulin Dep? Yesday UNIFINE PENTIPS PLUS 32 gauge x 5/32 Use as directed to administer insulin 4-6 times per day. Blood-Glucose Transmitter (DEXCOM G6 TRANSMITTER) leny 1 Each once every month. acetaminophen-caffeine (EXCEDRIN TENSION HEADACHE) 500-65 mg tablet Take 1 tablet by mouth every 6 hours as needed. cetirizine (ZYRTEC) 10 mg tablet Take 10 mg by mouth as needed for cold/allergy symptoms. As needed (Patient not taking: Reported on 09/20/2024) insulin pump cart,auto,BT,G6/7 (OMNIPOD 5 G6-G7 PODS, GEN 5,) crtg Inject 1 Each subcutaneously every 72 hours. insulin lispro (HUMALOG KWIKPEN) 100 unit/mL Inject up to 50units SQ daily as directed based on IC ratio and correction factor insulin lispro (HUMALOG KWIKPEN) 100 unit/mL In case of pump failure- take upto 30 units dialy alcohol swabs Use as directed to test metered glucose and administer insulin. ONETOUCH VERIO FLEX METER Use as directed to test metered glucose OMNIPOD 5 G6 INTRO KIT, GEN 5, crtg as directed. (Patient not taking: Reported on 11/15/2024) No current facility-administered medications for this visit. Allergies As of Date: 02/08/2025 Allergen Noted Reaction FLAGYL [METRONIDAZOLE] 09/10/2024 Intolerance KETOROLAC 07/03/2024 Hives Fully Assessed 12/13/2024 REVIEW OF SYSTEMS. 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 As applicable, any other physician, advance practice provider, medical student, or other health professional student that will be observing or involved in the sensitive examination for educational or training purposes was discussed with the Patient or Authorized Imagery Analyst. The Patient or Authorized Imagery Analyst has agreed to proceed with the sensitive examination. (Sensitive examination includes inspection and/or palpation of the breasts, pelvis, prostate and anorectal regions). EXAM: BP 114/70 Wt 159 lb (72.1kg) LMP 01/14/2025 GENERAL: pleasant, female in no apparent distress HEENT: Normocephalic, atraumatic, mucus membranes moist, and no lesions CHEST: Normal inspiratory effort ABDOMEN: so (more content not included)... 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) Internal QC OK [facility] Location:[facility], [address], [place], [address] [facility] .Auto Diffon 01-24-2025 Basophil, Absolute 0.0 10 3/mcL Normal 0.0-0.3 [facility] Comment on above: Performed By: #### U A, PREGU, UAMICAO #### [address] [address] Basophils/100 WBC (Bld) 0.1 % Normal 0.0-2.5 [facility] Comment on above: Performed By: #### U A, PREGU, UAMICAO #### [address] [address] Eosinophil, Absolute 0.1 10 3/mcL Normal 0.0-0.7 [facility] Comment on above: Performed By: #### U A, PREGU, UAMICAO #### [address] [address] Eosinophils/100 WBC (Bld) 1.1 % Normal 0.0-6.0 [facility] Comment on above: Performed By: #### U A, PREGU, UAMICAO #### [address] [address] Lymphocyte, Absolute 1.6 10 3/mcL Normal 0.9-4.3 [facility] Comment on above: Performed By: #### U A, PREGU, UAMICAO #### [address] [address] Lymphocytes/100 WBC (Bld) 21.0 % Normal 20.0-40.0 [facility] Comment on above: Performed By: #### U A PREGU, UAMICAO #### [address] [address] Monocyte, Absolute 0.9 10 3/mcL Normal 0.1-1.4 [facility] Comment on above: Performed By: #### U A PREGU, UAMICAO #### [address] [address] Monocytes/100 WBC (Bld) 11.8 % Normal 2.0-13.0 [facility] Comment on above: Performed By: #### U A PREGU UAMICAO #### [address] [address] Neutrophils/100 WBC (Bld) 66.0 % Normal 50.0-75.0 [facility] Comment on above: Performed By: #### U A PREGU UAMICAO #### [address] [address] .GFRon 01-24-2025 GFR/1.73 sq M.predicted among non-blacks MDRD (S/P/Bld) [Vol rate/Area] mL/min/{1.73_m2} Normal [facility] Comment on above: Result Comment: Stages of Chronic Kidney Disease (CKD) Stage Description eGFR(ml/min/1.73 sq.m.) CKD 1 Normal kidney function or >=90 normal kindney function with possible kidney damage (ex. Proteinuria) CKD 2 Kidney damage with mild loss 60-89 of kidney function CKD 3a Mild to moderate loss of kidney 45-59 function CKD 3b Moderate to severe loss of 30-44 of kindey function CKD 4 Severe loss of kidney function 15-29 CKD 5 Kidney failure <15 Note: (go live 2024) the eGFR calculation was updated to the 2020 CKD-EPI creatinine equation without a race factor to calculate the eGFR results. Performed By: #### U A, PREGU, UAMICAO #### [address] [address] .MDWon 01-24-2025 Monocyte Distribution Width 17.85 Normal 0.00-20.00 [facility] Comment on above: Result Comment: For ED adult patients suspected of sepsis, MDW<=20.0 does not rule out sepsis or risk of sepsis Performed By: #### U A PREGU, UAMICAO #### [address] [address] .NEUABSon 01-24-2025 Neutrophil, Absolute 5.1 10 3/mcL Normal 2.3-8.1 [facility] Comment on above: Performed By: #### U A PREGU, UAMICAO #### [address] [address] BMPon 01-24-2025 BUN/Creatinine Ratio 25 ratio Normal 7-27 [facility] Comment on above: Performed By: #### U A PREGU, UAMICAO #### [address] [address] Calcium [Mass/Vol] 9.9 mg/dL Normal 8.4-10.2 [facility] Comment on above: Performed By: #### U A PREGU, UAMICAO #### [address] [address] Chloride [Moles/Vol] 98 mmol/L Normal 98-107 [facility] Comment on above: Performed By: #### U A PREGU, UAMICAO #### [address] [address] CO2 [Moles/Vol] 19 mmol/L Low 22-29 [facility] Comment on above: Performed By: #### U A PREGU, UAMICAO #### [address] [address] Creatinine [Mass/Vol] 0.52 mg/dL Normal 0.51-0.95 [facility] Comment on above: Performed By: #### U A, PREGU, UAMICAO #### [address] [address] Electrolyte Balance 21.0 mEq/L High 4.0-15.0 [facility] Comment on above: Performed By: #### U Hilda PREGU UAMICAO #### [address] [address] Glucose [Mass/Vol] 91 mg/dL Normal 70-105 [facility] Comment on above: Performed By: #### U A PREGU UAMICAO #### [address] [address] Potassium [Moles/Vol] 3.8 mmol/L Normal 3.5-5.1 [facility] Comment on above: Performed By: #### U Hilda PREGU UAMICAO #### [place] [id number] Sodium [Moles/Vol] 138 mmol/L Normal 136-145 [facility] Comment on above: Performed By: #### U COLLEEN StevensU UAMICAO #### [place] [id number] Urea nitrogen [Mass/Vol] 13 mg/dL Normal 7-18 [facility] Comment on above: Performed By: #### COLLEEN PiñaU UAMICAO #### [address] [address] CBCon 01-24-2025 Erythrocyte distribution width (RBC) [Ratio] 13.3 % Normal 11.5-15.5 [facility] Comment on above: Performed By: #### U Hilda PREGU UAMICAO #### [address] [address] Hematocrit (Bld) [Volume fraction] 46.1 % High 34.0-46.0 [facility] Comment on above: Performed By: #### U Hilda PREGU UAMICAO #### [address] [address] Hgb 15.3 G/dL Normal 12.0-16.0 [facility] Comment on above: Performed By: #### U A PREGU UAMICAO #### [address] [address] MCH (RBC) [Entitic mass] 28.2 pg Normal 27.0-33.0 [facility] Comment on above: Performed By: #### JANE Piña UACHRISTIAN #### [address] [address] MCHC 33.1 G/dL Normal 32.0-36.0 [facility] Comment on above: Performed By: #### JANE Piña UACHRISTIAN #### [address] [address] MCV (RBC) [Entitic vol] 85.1 fL Normal 80.0-99.0 [facility] Comment on above: Performed By: #### JANE Piña UAMICSINDHU #### [address] [address] Platelet 273 10 3/mcL Normal 150-450 [facility] Comment on above: Performed By: #### JANE Piña UAMICAO #### [address] [address] Platelet mean volume (Bld) [Entitic vol] 9.0 fL Normal 6.6-10.5 [facility] Comment on above: Performed By: #### JANE Piña UAMICSINDHU #### [address] [address] RBC 5.42 10 6/mcL High 4.10-5.30 [facility] Comment on above: Performed By: #### JANE Piña UAMICSINDHU #### [address] [address] WBC 7.8 10 3/mcL Normal 4.5-10.8 [facility] Comment on above: Performed By: #### JANE Piña UAMICAO #### [address] [address] LABORATORYOrdered By: Anne Araya on 01-24-2025 Appearance (U) Cloudy *ABN* (01/24/25 9:10 PM) Invalid Interpretation Code Clear AO Auto Urine SS Bacteria LM.HPF (Urine sed) [#/Area] 1 /[HPF] Invalid Interpretation Code Negative AO Auto Urine SS Bilirubin Ql (U) Large *ABN* (01/24/25 9:10 PM) Invalid Interpretation Code Negative AO Auto Urine SS Color (U) Yellow (01/24/25 9:10 PM) Normal AO Auto Urine SS Glucose Test strip (U) [Mass/Vol] Negative Normal Negative AO Auto Urine SS HCG ( test) Ql Negative (01/24/25 9:10 PM) Normal AO Manual Urine SS Hemoglobin Auto test strip (U) [Mass/Vol] Small *ABN* (01/24/25 9:10 PM) Invalid Interpretation Code Negative AO Auto Urine SS Ketones Ql (U) 80 mg/dL Invalid Interpretation Code Negative AO Auto Urine SS test (u) int Not detected Invalid Interpretation Code AO Manual Urine SS UA Leuk Est Moderate *ABN* (01/24/25 9:10 PM) Invalid Interpretation Code Negative AO Auto Urine SS UA Mucous 1+ /HPF Normal AO Auto Urine SS UA Nitrite Negative (01/24/25 9:10 PM) Normal Negative AO Auto Urine SS UA pH 6.0 (01/24/25 9:10 PM) Normal 5.0 - 8.0 AO Auto Urine SS UA Protein 100 mg/dL Invalid Interpretation Code Negative AO Auto Urine SS UA RBC 3-5 /HPF Invalid Interpretation Code 0-2 AO Auto Urine SS UA Spec Grav >=1.030 *ABN* (01/24/25 9:10 PM) Invalid Interpretation Code 1.015-1.025 AO Auto Urine SS UA Specimen Type Clean Catch (01/24/25 9:10 PM) Normal AO Auto Urine SS UA Squam Epithelial 5-10 /HPF Normal 0-20 AO Au to Urine SS UA Urobilinogen 0.2 E.U./dL Normal 0.2-1.0 AO Auto Urine SS WBC LM.HPF (Urine sed) [#/Area] 10-20 /HPF Invalid Interpretation Code 0-5 AO Auto Urine SS Yeast LM.HPF (Urine sed) [#/Area] Trace /HPF Invalid Interpretation Code AO Auto Urine SS LABORATORYOrdered By: SYSTEM SYSTEM on 01-24-2025 Basophils (Bld) [#/Vol] 0.0 103/mcL Normal 0.0 - 0.3 10^3/mcL AO Workflow SS Basophils/100 WBC (Bld) 0.1 % Normal 0.0 - 2.5 % AO Workflow SS Calcium [Mass/Vol] 9.9 mg/dL Normal 8.4 - 10. 2 mg/dL AO ADM SS Chloride [Moles/Vol] 98 mmol/L Normal 98 - 10 7 mmol/L AO ADM SS CO2 [Moles/Vol] 19 mmol/L Low 22 - 29 mmol/L AO AD M SS Creatinine [Mass/Vol] 0.52 mg/dL Normal 0.51 - 0.95 mg/dL AO ADM SS Electrolyte Balance 21.0 mEq/L High 4.0 - 15 .0 mEq/L AO ADM SS Eosinophil, Absolute 0.1 103/mcL Normal 0.0 - 0 .7 10^3/mcL AO Workflow SS Eosinophils/100 WBC (Bld) 1.1 % Normal 0.0 - 6.0 % AO Workflow SS Erythrocyte distribution width (RBC) [Ratio] 13.3 % Normal 11.5 - 15.5 % AO Workflow SS Estimated Glomerular Filtration Rate ml/min/1.73sqm Invalid Interpretation Code AO Chemistry S Comment on above: Interpretive Data: Stages of Chronic Kidney Disease (CKD) Stage Description eGFR(ml/min/1.73 sq.m.) CKD 1 Normal kidney function or >=90 normal kindney function with possible kidney damage (ex. Proteinuria) CKD 2 Kidney damage with mild loss 60-89 of kidney function CKD 3a Mild to moderate loss of kidney 45-59 function CKD 3b Moderate to severe loss of 30-44 of kindey function CKD 4 Severe loss of kidney function 15-29 CKD 5 Kidney failure <15 Note: (go live 2024) the eGFR calculation was updated to the 2020 CKD-EPI creatinine equation without a race factor to calculate the eGFR results. Glucose [Mass/Vol] 91 mg/dL Normal 70 - 105 mg/dL AO ADM SS Hematocrit (Bld) [Volume fraction] 46.1 % High 34.0 - 46.0 % AO Workflow SS Hemoglobin (Bld) [Mass/Vol] 15.3 G/dL Normal 12.0 - 16.0 G/dL AO Workflow SS Lymphocytes (Bld) [#/Vol] 1.6 103/mcL Normal 0.9 - 4.3 10^3/mcL AO Workflow SS Lymphocytes/100 WBC (Bld) 21.0 % Normal 20.0 - 40.0 % AO Workflow SS MCH (RBC) [Entitic mass] 28.2 pg Normal 27.0 - 33.0 pg AO Workflow SS MCHC 33.1 G/dL Normal 32.0 - 36.0 G/dL AO Workflow SS MCV (RBC) [Entitic vol] 85.1 fL Normal 80.0 - 99.0 fL AO Workflow SS Monocyte distribution width Auto (Bld) [Entitic vol] 17.85 1 Normal 0.00 - 20.00 AO Workflow SS Comment on above: Result Comment: For ED adult patients suspected of sepsis, MDW<=20.0 does not rule out sepsis or risk of sepsis Monocytes (Bld) [#/Vol] 0.9 103/mcL Normal 0.1 - 1.4 10^3/mcL AO Workflow SS Monocytes/100 WBC (Bld) 11.8 % Normal 2.0 - 13.0 % AO Workflow SS Neutrophils (Bld) [#/Vol] 5.1 103/mcL Normal 2.3 - 8.1 10^3/mcL AO Workflow SS Neutrophils/100 WBC (Bld) 66.0 % Normal 50.0 - 75.0 % AO Workflow SS Platelet mean volume (Bld) [Entitic vol] 9.0 fL Normal 6.6 - 10.5 fL AO Workflow SS Platelets (Bld) [#/Vol] 273 103/mcL Normal 150 - 450 10^3/mcL AO Workflow SS Potassium [Moles/Vol] 3.8 mmol/L Normal 3.5 - 5.1 mmol/L AO ADM SS RBC (Bld) [#/Vol] 5.42 106/mcL High 4.10 - 5.3 0 10^6/mcL AO Workflow SS Sodium [Moles/Vol] 138 mmol/L Normal 136 - 145 mmol/L AO ADM SS Urea nitrogen [Mass/Vol] 13 mg/dL Normal 7 - 18 mg/dL AO ADM SS Urea nitrogen/Creatinine [Mass ratio] 25 ratio Normal 7 - 27 ratio AO ADM SS WBC (Bld) [#/Vol] 7.8 103/mcL Normal 4.5 - 10.8 10^3/mcL AO Workflow SS LABORATORYOrdered By: Krupa Lr on 01-24-2025 pH (Bld) 7.383 [pH] Normal 7.380 - 7.460 AO Rapid Comm SS PHVon 01-24-2025 pH Venous 7.383 Normal 7.380-7.460 [facility] Comment on above: Performed By: #### U A, PREGU, UAMICAO #### [address] [address] PREGUon 01-24-2025 HCG ( test) Ql (U) Negative Normal [facility] Comment on above: Performed By: #### U A, PREGU, UAMICAO #### [address] [address] test (u) int Not detected Invalid Interpretation Code [facility] Comment on above: Performed By: #### U A, PREGU, UAMICAO #### [address] [address] UAon 01-24-2025 Color (U) Yellow Normal [facility] Comment on above: Performed By: #### U A, PREGU, UAMICAO #### [address] [address] Glucose (U) [Mass/Vol] Negative Normal Negative [facility] Comment on above: Performed By: #### U A, PREGU, UAMICAO #### [address] [address] Ketones Ql (U) 80 mg/dL Abnormal Negative [facility] Comment on above: Performed By: #### U A, PREGU, UAMICAO #### [address] [address] UA Appear Cloudy Abnormal Clear [facility] Comment on above: Performed By: #### U A, PREGU, UAMICAO #### [address] [address] UA Bili Large Abnormal Negative [facility] Comment on above: Performed By: #### U A, PREGU, UAMICAO #### [address] [address] UA Blood Small Abnormal Negative [facility] Comment on above: Performed By: #### U A, PREGU, UAMICAO #### [place] [address] UA Leuk Est Moderate Abnormal Negative [facility] Comment on above: Performed By: #### U A, PREGU, UAMICAO #### [place] [address] UA Nitrite Negative Normal Negative [facility] Comment on above: Performed By: #### U A, PREGU, UAMICAO #### [place] [address] UA pH 6.0 Normal 5.0 - 8.0 [facility] Comment on above: Performed By: #### U A, PREGU, UAMICAO #### [place] [address] UA Protein 100 mg/dL Abnormal Negative [facility] Comment on above: Performed By: #### U A, PREGU, UAMICAO #### [place] [address] UA Spec Grav >=1.030 Abnormal 1.015-1.025 [facility] Comment on above: Performed By: #### U A, PREGU, UAMICAO #### [place] [address] UA Specimen Type Clean Catch Normal [facility] Comment on above: Performed By: #### U A, PREGU, UAMICAO #### [place] [address] UA Urobilinogen 0.2 E.U./dL Normal 0.2-1.0 [facility] Comment on above: Performed By: #### U A, PREGU, UAMICAO #### [place] [address] UAMICon 01-24-2025 UA Bacteria 1+ /hpf Abnormal Negative [facility] Comment on above: Performed By: #### U A, PREGU, UAMICAO #### [place] [id number] UA Mucous 1+ /hpf Normal [facility] Comment on above: Performed By: #### U A, PREGU, UAMICAO #### [place] [address] UA RBC 3-5 Abnormal 0-2 [facility] Comment on above: Performed By: #### U A, PREGU, UAMICAO #### [place] [address] UA Squam Epithelial 5-10 Normal 0-20 [facility] Comment on above: Performed By: #### U A, PREGU, UAMICAO #### [place] [address] UA WBC 10-20 Abnormal 0-5 [facility] Comment on above: Performed By: #### U A, PREGU, UAMICAO #### [place] [address] UA Yeast Trace Abnormal [facility] Comment on above: Performed By: #### U A, PREGU, UAMICAO #### [place] [address] Matthias 01-16-2025 RONNIE Telephone (KENDALL) CATALINA CAPELLAN ([id number]) 3 F Date Time Provider Department 01/16/25 BREANNE JOSHI During your visit today, we recorded the following information about you: Britni Terry 01/16/2025 8:49 AM Signed 1st attempt unable to lvm in regards 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 Allergies As of Date: 01/16/2025 Noted Allergy Reaction FLAGYL (METRONIDAZOLE) 09/10/2024 5 - Intolerance KETOROLAC 07/03/2024 4 - Hives Date Reviewed: 12/13/2024 Reviewed by: Breanne Joshi MD - Fully Assessed Prescriptions as of 01/24/2025 - Etonogestrel-Ethinyl Estradiol (NUVARING) 0.12-0.015 mg/24 hr vaginal ring Use 1 each vaginally as directed. Insert vaginally and leave in place for 3 consecutive weeks, then remove for 1 week. - fluticasone (FLONASE) 50 mcg/actuation nasal spray Use 2 sprays in each nostril once daily. Rinse mouth after use. - DEXCOM G6 SENSOR leny Inject 1 Each subcutaneously every 2 weeks. - insulin scallop cutter machine cart,aut,G6/7,cntr (OMNIPOD 5 G6-G7 INTRO KT,GEN5,) crtg For use with the pump - fluticasone (FLONASE) 50 mcg/actuation nasal spray Use 2 Sprays in each nostril once daily. Rinse mouth after use. - insulin glargine (LANTUS SOLOSTAR U-100 INSULIN) 100 unit/mL (3 mL) Inject 15 Units subcutaneously daily at bedtime. - ONETOUCH DELICA PLUS LANCET 33 gauge Use with blood glucose test 4 times daily. Insulin Dep? Yes - ONETOUCH VERIO TEST STRIPS test strip Use with blood glucose test 4 times daily. Insulin Dep? Yesday - UNIFINE PENTIPS PLUS 32 gauge x 32 Use as directed to administer insulin 4-6 times per day. - Blood-Glucose Transmitter (DEXCOM G6 TRANSMITTER) leny 1 Each once every month. - acetaminophen-caffeine (EXCEDRIN TENSION HEADACHE) 500-65 mg tablet Take 1 tablet by mouth every 6 hours as needed. - cetirizine (ZYRTEC) 10 mg tablet Take 10 mg by mouth as needed for cold/allergy symptoms. As needed - insulin pump cart,auto,BT,G6/7 (OMNIPOD 5 G6-G7 PODS, GEN 5,) crtg Inject 1 Each subcutaneously every 72 hours. - insulin lispro (HUMALOG KWIKPEN) 100 unit/mL Inject up to 50units SQ daily as directed based on IC ratio and correction factor - insulin lispro (HUMALOG KWIKPEN) 100 unit/mL In case of pump failure- take upto 30 units dialy - alcohol swabs Use as directed to test metered glucose and administer insulin. - ONETOUCH VERIO FLEX METER Use as directed to test metered glucose - OMNIPOD 5 G6 INTRO KIT, GEN 5, crtg as directed. Problem List As Of Date 01/16/2025 Noted Resolved Constipation during in first trimeste*02/12/2010 06/10/2024 Abdominal pain [R10.9] 02/12/2010 Sprain of ligament of right ankle [S93.401A] 04/10/2022 08/13/2023 9 weeks gestation of [Z3A.09] 08/13/2023 06/10/2024 Pre-existing type 1 diabetes mellitus in pregna*08/13/2023 06/10/2024 Nausea and vomiting during [O21.9] 08/13/2023 06/10/2024 Heart palpitations [R00.2] 08/13/2023 Shortness of breath [R06.02] 08/13/2023 Heartburn during in first trimester [*08/13/2023 06/10/2024 Family history of Down syndrome [Z82.79] 08/13/2023 Asymptomatic bacteriuria during [O99.*08/13/2023 06/10/2024 Subchorionic hematoma in first trimester [O41.8*08/13/2023 06/10/2024 Vaginal discharge during in first tri*08/13/2023 06/10/2024 Kidney stone complicating , first trim*08/13/2023 06/10/2024 UTI (urinary tract infection) during ,*08/15/2023 06/10/2024 Encounter Status:Closed by BRITNI TERRY on 01/24/25 Normal [facility] .Auto Diffon 01-10-2025 Basophil, Absolute 0.0 10 3/mcL Normal 0.0-0.3 [facility] Comment on above: Performed By: #### C MP, CBC, MDW, ANEU, LIP, ADIFF, TROPHS, TRINH, GFR, PHV #### [address] [address] Lymphocyte, Absolute 1.4 10 3/mcL Normal 0.9-4.3 [facility] Comment on above: Performed By: #### C MP, CBC, MDW, ANEU, LIP, ADIFF, TROPHS, TRINH, GFR, PHV #### [address] [address] Monocyte, Absolute 0.5 10 3/mcL Normal 0.1-1.4 [facility] Comment on above: Performed By: #### C MP, CBC, MDW, ANEU, LIP, ADIFF, TROPHS, RTINH, GFR, PHV #### [address] [address] .Auto DiffOrdered By: SYSTEM SYSTEM on 01-10-2025 Basophils/100 WBC (Bld) 0.1 % Normal 0.0-2.5 AO Workflow SS Comment on above: Performed By: #### C MP, CBC, MDW, ANEU, LIP, ADIFF, TROPHS, TRINH, GFR, PHV #### [address] [address] Eosinophil, Absolute 0.1 103/mcL Normal 0.0-0.7 AO Workflow SS Comment on above: Performed By: #### C MP, CBC, MDW, ANEU, LIP, ADIFF, TROPHS, TRINH, GFR, PHV #### [address] [address] Eosinophils/100 WBC (Bld) 1.6 % Normal 0.0-6.0 AO Workflow SS Comment on above: Performed By: #### C MP, CBC, MDW, ANEU, LIP, ADIFF, TROPHS, TRINH, GFR, PHV #### [address] [address] Lymphocytes/100 WBC (Bld) 21.6 % Normal 20.0-40.0 AO Workflow SS Comment on above: Performed By: #### C MP, CBC, MDW, ANEU, LIP, ADIFF, TROPHS, TRINH, GFR, PHV #### [address] [address] Monocytes/100 WBC (Bld) 7.8 % Normal 2.0-13.0 AO Workflow SS Comment on above: Performed By: #### C MP, CBC, MDW, ANEU, LIP, ADIFF, TROPHS, TRINH, GFR, PHV #### [address] [address] Neutrophils/100 WBC (Bld) 68.9 % Normal 50.0-75.0 AO Workflow SS Comment on above: Performed By: #### C MP, CBC, MDW, ANEU, LIP, ADIFF, TROPHS, TRINH, GFR, PHV #### [address] [address] .GFRon 01-10-2025 GFR/1.73 sq M.predicted among non-blacks MDRD (S/P/Bld) [Vol rate/Area] mL/min/{1.73_m2} Normal [facility] Comment on above: Result Comment: Stages of Chronic Kidney Disease (CKD) Stage Description eGFR(ml/min/1.73 sq.m.) CKD 1 Normal kidney function or >=90 normal kindney function with possible kidney damage (ex. Proteinuria) CKD 2 Kidney damage with mild loss 60-89 of kidney function CKD 3a Mild to moderate loss of kidney 45-59 function CKD 3b Moderate to severe loss of 30-44 of kindey function CKD 4 Severe loss of kidney function 15-29 CKD 5 Kidney failure <15 Note: (go live 2024) the eGFR calculation was updated to the 2020 CKD-EPI creatinine equation without a race factor to calculate the eGFR results. Performed By: #### C MP, CBC, MDW, ANEU, LIP, ADIFF, TROPHS, TRINH, GFR, PHV ####[address] [address] .MDWon 01-10-2025 Monocyte Distribution Width 18.02 Normal 0.00-20.00 [facility] Comment on above: Result Comment: For ED adult patients suspected of sepsis, MDW<=20.0 does not rule out sepsis or risk of sepsis Performed By: #### C MP, CBC, MDW, ANEU, LIP, ADIFF, TROPHS, TRINH, GFR, PHV #### [address] [address] .NEUABSon 01-10-2025 Neutrophil, Absolute 4.4 10 3/mcL Normal 2.3-8.1 [facility] Comment on above: Performed By: #### C MP, CBC, MDW, ANEU, LIP, ADIFF, TROPHS, TRINH, GFR, PHV #### [address] [address] ACTONon 01-10-2025 Acetone (s) Small Abnormal Negative [facility] Comment on above: Performed By: #### C MP, CBC, MDW, ANEU, LIP, ADIFF, TROPHS, TRINH, GFR, PHV ####[place] [address] CBCOrdered By: SYSTEM SYSTEM on 01-10-2025 Erythrocyte distribution width (RBC) [Ratio] 13.9 % Normal 11.5-15.5 AO Workflow SS Comment on above: Performed By: #### C MP, CBC, MDW, ANEU, LIP, ADIFF, TROPHS, TRINH, GFR, PHV #### [address] [address] Hematocrit (Bld) [Volume fraction] 42.8 % Normal 34.0-46.0 AO Workflow SS Comment on above: Performed By: #### C MP, CBC, MDW, ANEU, LIP, ADIFF, TROPHS, TRINH, GFR, PHV #### [address] [address] MCH (RBC) [Entitic mass] 28.3 pg Normal 27.0-33.0 AO Workflow SS Comment on above: Performed By: #### C MP, CBC, MDW, ANEU, LIP, ADIFF, TROPHS, TRINH, GFR, PHV #### [address] [address] MCHC 32.7 G/dL Normal 32.0-36.0 AO Workflow SS Comment on above: Performed By: #### C MP, CBC, MDW, ANEU, LIP, ADIFF, TROPHS, TRINH, GFR, PHV #### [address] [address] MCV (RBC) [Entitic vol] 86.6 fL Normal 80.0-99.0 AO Workflow SS Comment on above: Performed By: #### C MP, CBC, MDW, ANEU, LIP, ADIFF, TROPHS, TRINH, GFR, PHV #### [address] [address] Platelet mean volume (Bld) [Entitic vol] 10.1 fL Normal 6.6-10.5 AO Workflow SS Comment on above: Performed By: #### C MP, CBC, MDW, ANEU, LIP, ADIFF, TROPHS, TRINH, GFR, PHV #### [address] [address] [facility] Hgb 14.0 G/dL Normal 12.0-16.0 [facility] Comment on above: Performed By: #### C MP, CBC, MDW, ANEU, LIP, ADIFF, TROPHS, TRINH, GFR, PHV #### [address] [address] Platelet 236 10 3/mcL Normal 150-450 [facility] Comment on above: Performed By: #### C MP, CBC, MDW, ANEU, LIP, ADIFF, TROPHS, TRINH, GFR, PHV #### [address] [address] RBC 4.94 10 6/mcL Normal 4.10-5.30 [facility] Comment on above: Performed By: #### C MP, CBC, MDW, ANEU, LIP, ADIFF, TROPHS, TRINH, GFR, PHV #### [address] [address] WBC 6.3 10 3/mcL Normal 4.5-10.8 [facility] Comment on above: Performed By: #### C MP, CBC, MDW, ANEU, LIP, ADIFF, TROPHS, TRINH, GFR, PHV #### [address] [address] CMPon 01-10-2025 Albumin Level 3.4 G/dL Low 3.5-5.0 [facility] Comment on above: Performed By: #### C MP, CBC, MDW, ANEU, LIP, ADIFF, TROPHS, TRINH, GFR, PHV ####[facility] [place], [place] [address] ALT [Catalytic activity/Vol] 17 U/L Normal 14-59 [facility] Comment on above: Performed By: #### C MP, CBC, MDW, ANEU, LIP, ADIFF, TROPHS, TRINH, GFR, PHV ####[place] [address] [place] [address] AST [Catalytic activity/Vol] 13 U/L Normal 10-40 [facility] Comment on above: Performed By: #### C MP, CBC, MDW, ANEU, LIP, ADIFF, TROPHS, TRINH, GFR, PHV ####[place] [address] [place] [id number] Bili Total 0.5 mg/dL Normal 0.2-1.0 [facility] Comment on above: Result Comment: Use of this assay is not recommended for patients undergoing treatment with eltrombopag due to the potential for falsely elevated results. Performed By: #### C MP, CBC, MDW, ANEU, LIP, ADIFF, TROPHS, TRINH, GFR, PHV ####[facility] [place] [id number] BUN/Creatinine Ratio 21 ratio Normal 7-27 [facility] Comment on above: Performed By: #### C MP, CBC, MDW, ANEU, LIP, ADIFF, TROPHS, TRINH, GFR, PHV ####[facility] [place] [phone] Total Protein 7.9 G/dL Normal 6.4-8.2 [facility] Comment on above: Performed By: #### C MP, CBC, MDW, ANEU, LIP, ADIFF, TROPHS, TRINH, GFR, PHV ####[facility] [place] [phone] CMPOrdered By: SYSTEM SYSTEM on 01-10-2025 Albumin/Globulin [Mass ratio] 0.8 {ratio} Low 1.1-2.5 AO ADM SS Comment on above: Performed By: #### C MP, CBC, MDW, ANEU, LIP, ADIFF, TROPHS, TRINH, GFR, PHV ####[address] [place], [place] [address] ALP [Catalytic activity/Vol] 102 U/L Normal 40-135 AO ADM SS Comment on above: Performed By: #### C MP, CBC, MDW, ANEU, LIP, ADIFF, TROPHS, TRINH, GFR, PHV ####[address] [place], [place] [address] Calcium [Mass/Vol] 9.0 mg/dL Normal 8.4-10.2 AO ADM SS Comment on above: Performed By: #### C MP, CBC, MDW, ANEU, LIP, ADIFF, TROPHS, TRINH, GFR, PHV ####[address] [place], [place] [address] Chloride [Moles/Vol] 97 mmol/L Low 98-107 AO A DM SS Comment on above: Performed By: #### C MP, CBC, MDW, ANEU, LIP, ADIFF, TROPHS, TRINH, GFR, PHV ####[address] [place], [place] [address] CO2 [Moles/Vol] 21 mmol/L Low 22-29 AO ADM SS Comment on above: Performed By: #### C MP, CBC, MDW, ANEU, LIP, ADIFF, TROPHS, TRINH, GFR, PHV ####[address] [place], [place] [address] Creatinine [Mass/Vol] 0.48 mg/dL Low 0.51-0.95 AO ADM SS Comment on above: Performed By: #### C MP, CBC, MDW, ANEU, LIP, ADIFF, TROPHS, TRINH, GFR, PHV ####[address] [place], [place] [address] Electrolyte Balance 14.0 mEq/L Normal 4.0-15.0 AO AD M SS Comment on above: Performed By: #### C MP, CBC, MDW, ANEU, LIP, ADIFF, TROPHS, TRINH, GFR, PHV ####[address] [place], [place] [address] Globulin 4.5 G/dL High 2.7-4.4 AO ADM SS Comment on above: Performed By: #### C MP, CBC, MDW, ANEU, LIP, ADIFF, TROPHS, TRINH, GFR, PHV ####[address] [place], [place] [address] Glucose [Mass/Vol] 489 mg/dL Critically abnormal 70-105 AO ADM SS Comment on above: Performed By: #### C MP, CBC, MDW, ANEU, LIP, ADIFF, TROPHS, TRINH, GFR, PHV ####[address] [place], [place] [address] Potassium [Moles/Vol] 3.9 mmol/L Normal 3.5-5.1 AO ADM SS Comment on above: Performed By: #### C MP, CBC, MDW, ANEU, LIP, ADIFF, TROPHS, TRINH, GFR, PHV ####[address] [place], [place] [address] Sodium [Moles/Vol] 132 mmol/L Low 136-145 AO ADM SS Comment on above: Performed By: #### C MP, CBC, MDW, ANEU, LIP, ADIFF, TROPHS, TRINH, GFR, PHV ####[address] [place], [place] [address] Urea nitrogen [Mass/Vol] 10 mg/dL Normal 7-18 AO ADM SS Comment on above: Performed By: #### C MP, CBC, MDW, ANEU, LIP, ADIFF, TROPHS, TRINH, GFR, PHV ####[address] [place], [place] [address] LABORATORYOrdered By: Maryann Franco on 01-10-2025 Blood Glucose Interventions Notify physician (01/10/25 4:53 PM) [facility] Work Phone: Blood Glucose Testing Reason Routine (01/10/25 4:53 PM) [facility] Work Phone: Glucose [Mass/Vol] 407 mg/dL Invalid Interpretation Code 70 - 110 mg/dL [facility] Work Phone: LABORATORYOrdered By: SYSTEM SYSTEM on 01-10-2025 Albumin BCP dye [Mass/Vol] 3.4 G/dL Low 3.5 - 5.0 G/dL AO ADM SS ALT With P-5'-P [Catalytic activity/Vol] 17 U/L Normal 14 - 59 U/L AO ADM SS AST With P-5'-P [Catalytic activity/Vol] 13 U/L Normal 10 - 40 U/L AO ADM SS Basophils (Bld) [#/Vol] 0.0 103/mcL Normal 0.0 - 0.3 10^3/mcL AO Workflow SS Bilirubin [Mass/Vol] 0.5 mg/dL Normal 0.2 - 1 .0 mg/dL AO ADM SS Comment on above: Interpretive Data: U se of this assay is not recommended for patients undergoing treatment with eltrombopag due to the potential for falsely elevated results. Estimated Glomerular Filtration Rate ml/min/1.73sqm Invalid Interpretation Code AO Chemistry S Comment on above: Interpretive Data: Stages of Chronic Kidney Disease (CKD) Stage Description eGFR(ml/min/1.73 sq.m.) CKD 1 Normal kidney function or >=90 normal kindney function with possible kidney damage (ex. Proteinuria) CKD 2 Kidney damage with mild loss 60-89 of kidney function CKD 3a Mild to moderate loss of kidney 45-59 function CKD 3b Moderate to severe loss of 30-44 of kindey function CKD 4 Severe loss of kidney function 15-29 CKD 5 Kidney failure <15 Note: (go live 2024) the eGFR calculation was updated to the 2020 CKD-EPI creatinine equation without a race factor to calculate the eGFR results. Hemoglobin (Bld) [Mass/Vol] 14.0 G/dL Normal 12.0 - 16.0 G/dL AO Workflow SS Lipase [Catalytic activity/Vol] 42 U/L Normal 16 - 77 U/L AO ADM SS Lymphocytes (Bld) [#/Vol] 1.4 103/mcL Normal 0.9 - 4.3 10^3/mcL AO Workflow SS Monocyte distribution width Auto (Bld) [Entitic vol] 18.02 1 Normal 0.00 - 20.00 AO Workflow SS Comment on above: Result Comment: For ED adult patients suspected of sepsis, MDW<=20.0 does not rule out sepsis or risk of sepsis Monocytes (Bld) [#/Vol] 0.5 103/mcL Normal 0.1 - 1.4 10^3/mcL AO Workflow SS Neutrophils (Bld) [#/Vol] 4.4 103/mcL Normal 2.3 - 8.1 10^3/mcL AO Workflow SS Platelets (Bld) [#/Vol] 236 103/mcL Normal 150 - 450 10^3/mcL AO Workflow SS Protein [Mass/Vol] 7.9 G/dL Normal 6.4 - 8.2 G/dL AO ADM SS RBC (Bld) [#/Vol] 4.94 106/mcL Normal 4.10 - 5.3 0 10^6/mcL AO Workflow SS Troponin I.cardiac DL <= 0.01 ng/mL [Mass/Vol] 4 ng/L Normal 0 - 51 ng/L AO ADM SS Comment on above: Interpretive Data: H igh Sensitive Troponin I Reference Ranges: Female: 0-51 ng/L Male: 0-76 ng/L Testing performed on [employer] using a homogeneous sandwich chemiluminescent immunoassay based on ChaCha technology. Urea nitrogen/Creatinine [Mass ratio] 21 ratio Normal 7 - 27 ratio AO ADM SS WBC (Bld) [#/Vol] 6.3 103/mcL Normal 4.5 - 10.8 10^3/mcL AO Workflow SS LABORATORYOrdered By: Cricket Ferro on 01-10-2025 Ketones [Mass/Vol] Small mg/dL Invalid Interpretation Code Negative AO Rapid Testing SS pH (Bld) 7.401 [pH] Normal 7.380 - 7.460 AO Rapid Comm SS Amphetamines Screen Ql (U) Negative *NA* (01/10/25 2:53 PM) Invalid Interpretation Code Negative AO ADM SS Appearance (U) Clear (01/10/25 2:53 PM) Normal Clear AO Auto Urine SS Barbiturates Screen Ql (U) Negative *NA* (01/10/25 2:53 PM) Invalid Interpretation Code Negative AO ADM SS Benzodiazepines Ql (U) Negative *NA* (01/10/25 2:53 PM) Invalid Interpretation Code Negative AO ADM SS Benzoylecgonine Screen Ql (U) Negative *NA* (01/10/25 2:53 PM) Invalid Interpretation Code Negative AO ADM SS Bilirubin Ql (U) Negative (01/10/25 2:53 PM) Normal Negative AO Auto Urine SS Cannabinoids Screen Ql (U) Negative *NA* (01/10/25 2:53 PM) Invalid Interpretation Code Negative AO ADM SS Color (U) Yellow (01/10/25 2:53 PM) Normal AO Auto Urine SS Glucose Test strip (U) [Mass/Vol] >=1000 mg/dL Invalid Interpretation Code Negative AO Auto Urine SS HCG ( test) Ql Negative (01/10/25 2:53 PM) Normal AO Manual Urine SS Hemoglobin Auto test strip (U) [Mass/Vol] Negative (01/10/25 2:53 PM) Normal Negative AO Auto Urine SS Ketones Ql (U) 15 mg/dL Invalid Interpretation Code Negative AO Auto Urine SS Methadone Screen Ql (U) Negative *NA* (01/10/25 2:53 PM) Invalid Interpretation Code Negative AO ADM SS Opiates Screen Ql (U) Negative *NA* (01/10/25 2:53 PM) Invalid Interpretation Code Negative AO ADM SS Phencyclidine Ql (U) Negative *NA* (01/10/25 2:53 PM) Invalid Interpretation Code Negative AO ADM SS test (u) int Not detected Invalid Interpretation Code AO Manual Urine SS UA Leuk Est Negative (01/10/25 2:53 PM) Normal Negative AO Auto Urine SS UA Nitrite Negative (01/10/25 2:53 PM) Normal Negative AO Auto Urine SS UA pH 6.0 (01/10/25 2:53 PM) Normal 5.0 - 8.0 AO Auto Urine SS UA Protein Negative Normal Negative AO Auto Urine SS UA Spec Grav 1.010 *ABN* (01/10/25 2:53 PM) Invalid Interpretation Code 1.015-1.025 AO Auto Urine SS UA Specimen Type Void (01/10/25 2:53 PM) Normal AO Auto Urine SS UA Urobilinogen 0.2 E.U./dL Normal 0.2-1.0 AO Auto Urine SS Urine Drugs screened: See Below 4 (01/10/25 2:53 PM) Normal AO Chemistry S Comment on above: Interpretive Data: T his drug screen is a presumptive screening only. No confirmation will be performed unless requested. Drugs screened include: Threshold Amphetamines/Methamphetamines 1,000 ng/mL Barbiturates 200 ng/mL Benzodiazepine metabolites 200 ng/mL Cannabinoids (THC metabolites) 50 ng/mL Cocaine 300 ng/mL Opiates 300 ng/mL Methadone 300 ng/mL Phencyclidine (PCP) 25 ng/mL Testing has been performed FOR MEDICAL PURPOSES ONLY. LIPon 01-10-2025 Lipase Level 42 U/L Normal 16-77 [facility] Comment on above: Performed By: #### C MP, CBC, MDW, ANEU, LIP, ADIFF, TROPHS, TRINH, GFR, PHV ####[address] [place], [place] [address] PHVon 01-10-2025 pH Venous 7.401 Normal 7.380-7.460 [facility] Comment on above: Performed By: #### C MP, CBC, MDW, ANEU, LIP, ADIFF, TROPHS, TRINH, GFR, PHV ####[address] [place], [place] [address] PREGUon 01-10-2025 HCG ( test) Ql (U) Negative Normal [facility] Comment on above: Performed By: #### P REGU #### [address] [address] test (u) int Not detected Invalid Interpretation Code [facility] Comment on above: Performed By: #### P REGU #### [address] [address] TROPHSon 01-10-2025 High Sensitivity Troponin I 4 ng/L Normal 0-51 [facility] Comment on above: Result Comment: High Sensitive Troponin I Reference Ranges: Female: 0-51 ng/L Male: 0-76 ng/L Testing performed on [employer] using a homogeneous sandwich chemiluminescent immunoassay based on ChaCha technology. Performed By: #### C MP, CBC, MDW, ANEU, LIP, ADIFF, TROPHS, TRINH, GFR, PHV ####[address] [place] [address] UAon 01-10-2025 Color (U) Yellow Normal [facility] Comment on above: Performed By: #### U A, PREGU, UAMICAO #### [place] [address] Glucose (U) [Mass/Vol] mg/dL Abnormal Negative [facility] Comment on above: Performed By: #### U A, PREGU, UAMICAO #### [place] [address] Ketones Ql (U) 15 mg/dL Abnormal Negative [facility] Comment on above: Performed By: #### U A, PREGU, UAMICAO #### [place] [address] UA Appear Clear Normal Clear [facility] Comment on above: Performed By: #### U A, PREGU, UAMICAO #### [place] [address] UA Blood Negative Normal Negative [facility] Comment on above: Performed By: #### U A, PREGU, UAMICAO #### [place] [address] UA Leuk Est Negative Normal Negative [facility] Comment on above: Performed By: #### U A, PREGU, UAMICAO #### [place] [address] UA Nitrite Negative Normal Negative [facility] Comment on above: Performed By: #### U A, PREGU, UAMICAO #### [place] [address] UA pH 6.0 Normal 5.0 - 8.0 [facility] Comment on above: Performed By: #### U A, PREGU, UAMICAO #### [place] [address] UA Protein Negative Normal Negative [facility] Comment on above: Performed By: #### U A, PREGU, UAMICAO #### [address] [address] UA Spec Grav 1.010 Abnormal 1.015-1.025 [facility] Comment on above: Performed By: #### U A, PREGU, UAMICAO #### [place] [address] UA Specimen Type Void Normal [facility] Comment on above: Performed By: #### U A, PREGU, UAMICAO #### [place] [address] UA Urobilinogen 0.2 E.U./dL Normal 0.2-1.0 [facility] Comment on above: Performed By: #### U A, PREGU, UAMICAO #### [place] [address] Urobilinogen (U) [Mass/Vol] Negative Normal Negative [facility] Comment on above: Performed By: #### U A, PREGU, UAMICAO #### [place] [address] UDRUGon 01-10-2025 Amphetamine (u) Negative Normal Negative [facility] Comment on above: Performed By: #### U A, PREGU, UAMICAO #### [place] [address] Barbiturate (u) Negative Normal Negative [facility] Comment on above: Performed By: #### U A, PREGU, UAMICAO #### [place] [address] Benzodiazepine (u) Negative Normal Negative [facility] Comment on above: Performed By: #### U A, PREGU, UAMICAO #### [place] [address] Cannabinoid (u) Negative Normal Negative [facility] Comment on above: Performed By: #### U A, PREGU, UAMICAO #### [place] [address] Cocaine Ql (U) Negative Normal Negative [facility] Comment on above: Performed By: #### U Hilda PREGU [place]AM[place]O #### [address] [address] Methadone Ql (U) Negative Normal Negative [facility] Comment on above: Performed By: #### U Hilda PREGU [place]O #### [address] [address] Opiate (u) Negative Normal Negative [facility] Comment on above: Performed By: #### U Hilda PREGU [place] #### [address] [address] PCP (u) Negative Normal Negative [facility] Comment on above: Performed By: #### U JANE Stevens [place]AM[place]O #### [address] [address] Urine Drugs screened: See Below Normal [facility] Comment on above: Result Comment: This drug screen is a presumptive screening only. No confirmation will be performed unless requested. Drugs screened include: Threshold Amphetamines/Methamphetamines 1,000 ng/mL Barbiturates 200 ng/mL Benzodiazepine metabolites 200 ng/mL Cannabinoids (THC metabolites) 50 ng/mL Cocaine 300 ng/mL Opiates 300 ng/mL Methadone 300 ng/mL Phencyclidine (PCP) 25 ng/mL Testing has been performed FOR MEDICAL PURPOSES ONLY. Performed By: #### U JANE Stevens UAM[place]O #### [address] [address] XR CHEST 1 VIEWon 01-10-2025 XR CHEST 1 VIEW ORIGINAL EXAMINATION: ONE XRAY VIEW OF THE CHEST01/10/2025 3:11 pm COMPARISON: 06/08/2024 HISTORY: ORDERING SYSTEM PROVIDED HISTORY: Reason for Exam: Diabetes FINDINGS: Cardiomediastinal contours are stable. No focal consolidation or pulmonary edema. No pneumothorax or pleural effusion. No acute osseous abnormalities. IMPRESSION: No acute radiographic findings. I have personally reviewed the images of this examination and agree with the resident's findings and interpretation. Interpreted by: Anne Espinoza Preliminary Report By: Marshal Burton MD Electronically signed By Anne Espinoza Dictated Date: 01/10/2025 3:12:55 PM Prelim Date: 01/10/2025 3:22:58 PM Sign Date: 01/10/2025 3:22:58 PM Ordering Provider: VIRGINIA Barragan [facility] 12-13-2024 OV Office Visit (OBGYWM ) CATALINA CAPELLAN ([id number]) 3 F Date Time Provider Department 12/13/24 3:00 PM BREANNE JOSHI OBERMIASWJada During your visit today, we recorded the following information about you: Weight 74.4 kg Breanne Joshi MD 12/13/2024 4:45 PM Signed Catalina Riverawin is a 18 year old female who presents for problem visit HPI: Irregular bleeding for the last 3 months. Has been using the patch for BC> Bleeding does not happen during the week of no patch but then will start during the week of the new patch. Patch stays on. NO irritation. Has not missed any patches. Hgb A1c still high. Having difficulty with BS. Does not pereyra well with OCPS and does not want an IUD. Discussed Nuvaring as an option. Worried about possible . Negative urine HCG. 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: Sexual Activity: Yes; Male Contraception: No contraception data on record PAST MEDICAL HISTORY Diagnosis Date Constipated Eczema POTS (postural orthostatic tachycardia syndrome) Sprain of ligament of right ankle 04/10/2022 Type 1 diabetes (HCC) PAST SURGICAL HISTORY Procedure Laterality Date SECTION HX 01/2024 CYSTOSCOPY,INSERT URETHRAL STENT EGD LITHROTRIPSY FAMILY HISTORY Problem Relation Age of Onset other (Hysterectomy) Mother other (Other) Father Unknown GI Maternal Grandmother other (Sponge Kidney) Maternal Grandmother Hypertension Maternal Grandfather Heart Attack Maternal Grandfather Social History Tobacco Use Smoking status: Never Smokeless tobacco: Never Vaping Use Vaping status: current everyday user Substances: Nicotine Devices: Pre-filled pod Substance Use Topics Alcohol use: Never Drug use: Never Current Outpatient Medications Medication Sig fluticasone (FLONASE) 50 mcg/actuation nasal spray Use 2 sprays in each nostril once daily. Rinse mouth after use. DEXCOM G6 SENSOR leny Inject 1 Each subcutaneously every 2 weeks. insulin scallop cutter machine cart,aut,G6/7,cntr (OMNIPOD 5 G6-G7 INTRO KT,GEN5,) crtg For use with the pump Ethinyl Estradiol-Norelgestrom 150-35 mcg/24 hr patch Apply 1 Patch as directed one time a week. fluticasone (FLONASE) 50 mcg/actuation nasal spray Use 2 Sprays in each nostril once daily. Rinse mouth after use. (Patient not taking: Reported on 11/15/2024) insulin glargine (LANTUS SOLOSTAR U-100 INSULIN) 100 unit/mL (3 mL) Inject 15 Units subcutaneously daily at bedtime. (Patient taking differently: Inject 15 Units subcutaneously daily at bedtime. In case of pump failure) ONETOUCH DELICA PLUS LANCET 33 gauge Use with blood glucose test 4 times daily. Insulin Dep? Yes ONETOUCH VERIO TEST STRIPS test strip Use with blood glucose test 4 times daily. Insulin Dep? Yesday UNIFINE PENTIPS PLUS 32 gauge x 5/32 Use as directed to administer insulin 4-6 times per day. Blood-Glucose Transmitter (DEXCOM G6 TRANSMITTER) leny 1 Each once every month. acetaminophen-caffeine (EXCEDRIN TENSION HEADACHE) 500-65 mg tablet Take 1 tablet by mouth every 6 hours as needed. cetirizine (ZYRTEC) 10 mg tablet Take 10 mg by mouth as needed for cold/allergy symptoms. As needed (Patient not taking: Reported on 09/20/2024) insulin pump cart,auto,BT,G6/7 (OMNIPOD 5 G6-G7 PODS, GEN 5,) crtg Inject 1 Each subcutaneously every 72 hours. insulin lispro (HUMALOG KWIKPEN) 100 unit/mL Inject up to 50units SQ daily as directed based on IC ratio and correction factor insulin lispro (HUMALOG KWIKPEN) 100 unit/mL In case of pump failure- take upto 30 units dialy alcohol swabs Use as directed to test metered glucose and administer insulin. ONETOUCH VERIO FLEX METER Use as directed to test metered glucose OMNIPOD 5 G6 INTRO KIT, GEN 5, crtg as directed. (Patient not taking: Reported on 11/15/2024) No current facility-administered medications for this visit. Allergies As of Date: 12/13/2024 Allergen Noted Reaction FLAGYL [METRONIDAZOLE] 09/10/2024 Intolerance KETOROLAC 07/03/2024 Hives Fully Assessed 11/23/2024 REVIEW OF SYSTEMS Abdomen: No bloating, early satiety, indigestion, or increased flatulence. No abdominal pain, nausea, vomiting, diarrhea, or constipation. Bladder: No dysuria, gross hematuria, urinary frequency, urinary urgency, or incontinence. Breast: No breast lumps, nipple d/c, overlying skin changes, redness or skin retraction. Expanded ROS: N/A Allergies and current medication updated:Yes SENSITIVE EXAM: The sensitive examination was discussed with the Patient or Patient's Authorized Imagery Analyst. As applicable, any other physician, advance practice provider, medical student, or other health professional student that will be (more content not included)... 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 (POCT) Internal [facility] Location:[facility], [address] [place], [address] [facility] POINT OF CARE [facility] CNOVon 11-23-2024 CNOV Office Visit ([facility] ) CATALINA CAPELLAN ([id number]) 3 F Date Time Provider Department 11/23/24 4:30 PM ISABEL DE SANTIAGO [facility] During your visit today, we recorded the following information about you: Temperature Pulse Respiration Blood pressure 98 degrees 120/minute 16/minute 110/68 Weight 73 kg Isabel De Santiago APRN.CNP 11/23/2024 4:58 PM Signed [facility] Subjective HPI HPI Catalina Capellan is a 18 year old female who presents today for CC of sinus pressure, cough. This started 2 weeks ago. Has tried otc medication for relief. Symptoms are worsened by nothing. Risk factors hx of sinus infections. Smoker. Denies possibility of being . PAST MEDICAL HISTORY Diagnosis Date Constipated Eczema POTS (postural orthostatic tachycardia syndrome) Sprain of ligament of right ankle 04/10/2022 Type 1 diabetes (HCC) PAST SURGICAL HISTORY Procedure Laterality Date SECTION HX 01/2024 CYSTOSCOPY,INSERT URETHRAL STENT EGD LITHROTRIPSY ALLERGIES Flagyl [Metronidazole] and Ketorolac MEDICATIONS DEXCOM G6 SENSOR leny Inject 1 Each subcutaneously every 2 weeks. insulin scallop cutter machine cart,aut,G6/7,cntr (OMNIPOD 5 G6-G7 INTRO KT,GEN5,) crtg For use with the pump Ethinyl Estradiol-Norelgestrom 150-35 mcg/24 hr patch Apply 1 Patch as directed one time a week. fluticasone (FLONASE) 50 mcg/actuation nasal spray Use 2 Sprays in each nostril once daily. Rinse mouth after use. (Patient not taking: Reported on 11/15/2024) insulin glargine (LANTUS SOLOSTAR U-100 INSULIN) 100 unit/mL (3 mL) Inject 15 Units subcutaneously daily at bedtime. (Patient taking differently: Inject 15 Units subcutaneously daily at bedtime. In case of pump failure) ONETOUCH DELICA PLUS LANCET 33 gauge Use with blood glucose test 4 times daily. Insulin Dep? Yes ONETOUCH VERIO TEST STRIPS test strip Use with blood glucose test 4 times daily. Insulin Dep? Yesday UNIFINE PENTIPS PLUS 32 gauge x Use as directed to administer insulin 4-6 times per day. Blood-Glucose Transmitter (DEXCOM G6 TRANSMITTER) leny 1 Each once every month. acetaminophen-caffeine (EXCEDRIN TENSION HEADACHE) 500-65 mg tablet Take 1 tablet by mouth every 6 hours as needed. cetirizine (ZYRTEC) 10 mg tablet Take 10 mg by mouth as needed for cold/allergy symptoms. As needed (Patient not taking: Reported on 09/20/2024) insulin pump cart,auto,BT,G6/7 (OMNIPOD 5 G6-G7 PODS, GEN 5,) crtg Inject 1 Each subcutaneously every 72 hours. insulin lispro (HUMALOG KWIKPEN) 100 unit/mL Inject up to 50units SQ daily as directed based on IC ratio and correction factor insulin lispro (HUMALOG KWIKPEN) 100 unit/mL In case of pump failure- take upto 30 units dialy alcohol swabs Use as directed to test metered glucose and administer insulin. ONETOUCH VERIO FLEX METER Use as directed to test metered glucose OMNIPOD 5 G6 INTRO KIT, GEN 5, crtg as directed. (Patient not taking: Reported on 11/15/2024) FAMILY HISTORY Problem Relation Age of Onset other (Hysterectomy) Mother other (Other) Father Unknown GI Maternal Grandmother other (Sponge Kidney) Maternal Grandmother Hypertension Maternal Grandfather Heart Attack Maternal Grandfather Social History Tobacco Use Smoking status: Never Smokeless tobacco: Never Vaping Use Vaping status: current everyday user Substances: Nicotine Devices: Pre-filled pod Substance Use Topics Alcohol use: Never Drug use: Never Review of Systems Constitutional: Negative for chills, fatigue and fever. HENT: Positive for rhinorrhea, sinus pressure and sore throat. Negative for ear discharge, ear pain and sinus pain. Eyes: Negative for discharge and redness. Respiratory: Positive for cough. Negative for shortness of breath and wheezing. Cardiovascular: Negative for chest pain. Skin: Negative for rash. Objective BP 110/68 Pulse 120 Temp 36.7 ?C (98 ?F) Resp 16 Wt 73 kg (160 lb 15 oz) LMP 10/25/2024 (Exact Date) SpO2 98% BMI 25.98 kg/m? Physical Exam Constitutional: General: She is not in acute distress. Appearance: She is not toxic-appearing or diaphoretic. HENT: Head: Normocephalic and atraumatic. Right Ear: Hearing, tympanic membrane, ear canal and external ear normal. Left Ear: Hearing, tympanic membrane, ear canal and external ear normal. Nose: Nose normal. Mouth/Throat: Pharynx: Uvula midline. Eyes: General: Lids are normal. No scleral icterus. Right eye: No discharge. Left eye: No discharge. Conjunctiva/sclera: Conjunctivae normal. Pupils: Pupils are equal, round, and reactive to light. Neck: Trachea: Trachea normal. Cardiovascular: Rate and Rhythm: Normal rate and regular rhythm. Heart sounds: Normal heart sounds. Pulmonary: Effort: Pulmonary effort is normal. Breath sounds: Normal breath sounds. Musculoskeletal: Cervical back: Normal range of (more content not included)... Normal [facility] Lipid 1996 panelon 5 Cholesterol [Mass/Vol] 171 mg/dL High NINF - 170 mg/dL [facility] Comment on above: <170 mg/dL, Acceptab le 170-199 mg/dL, Borderline high >199 mg/dL, High Cholesterol in HDL [Mass/Vol] 99 mg/dL 45 - PINF mg/dL [facility] Comment on above: >45 mg/dL, Acceptabl e 40-45 mg/dL, Borderline <40 mg/dL, Low Cholesterol in LDL [Mass/Vol] 50 mg/dL NINF - 110 mg/dL [facility] Comment on above: <110 mg/dL, Acceptab le 110-129 mg/dL, Borderline high >129 mg/dL, High LDL cholesterol is calculated using the Aviles-NIH equation. Cholesterol in LDL/Cholesterol in HDL [Mass ratio] 0.51 {ratio} NINF - 2.42 [facility] Comment on above: Reference: 1. Expert Panel on Integrated Guidelines for Cardiovascular Health and Risk Reduction in Children and Adolescents: National Heart, Lung and Blood [place]. Pediatrics. 2011: 128(Suppl 5):O057-899. Cholesterol in VLDL [Mass/Vol] 19 mg/dL High NINF - 18 mg/dL [facility] Cholesterol non HDL [Mass/Vol] 72 mg/dL [facility] 120 mg/dL [facility] Comment on above: <120 mg/dL, Acceptab le 120-144 mg/dL, Borderline high >144 mg/dL, High Cholesterol.total/Chol esterol in HDL [Mass ratio] 1.73 {ratio} NINF - 3.76 [facility] Fasting Time 13 hrs [facility] Interpretation and review of laboratory results Abnormal [facility] Triglyceride [Mass/Vol] 135 mg/dL High NINF - 90 mg/dL [facility] Comment on above: <90 mg/dL, Acceptabl e 90-129 mg/dL, Borderline high >129 mg/dL, High [facility] THYROID STIMULATING HORMONEo n 11-17-2024 TSH Qn 1.25 m[IU]/L [facility] Comment on above: If the patient is pr egnant, TSH reference range varies by gestational period: First Trimester (weeks 9-12): 0.180-2.990 mIU/L Second Trimester: 0.110-3.980 mIU/L Third Trimester: 0.480-4.710 mIU/L Lorne Paulson et al. A Practical Approach for the Verifications and Determination of Site- and Trimester-Specific Reference Intervals for Thyroid Function tests in . Thyroid, 2019:29:3:412-420. Raji Li, et al. 2017 Guidelines of the [place] Thyroid Association for the Diagnosis and Management of Thyroid Disease during and the . Thyroid, 2017:27:3:315-389. Reference ranges were not locally established for this patient's age group. The normal values are based on the following source: Carine W, Tenisha Dexter. Reference Ranges for Adults and Children: Pre-analytical Considerations. [facility] TSH Qnon 11-17-2024 Interpretation and review of laboratory results Normal [facility] ALBUMIN/CREATININE RATIO, UR INEon 11-16-2024 Albumin DL <= 20 mg/L (U) [Mass/Vol] 48.4 mg/L Normal [facility] Comment on above: Order Comment: Speci men Type: URINE SPECIMENOrdering Facility: [facility] Address: [address] [place] [address] Performed By: #### U ACR ####[facility] [id number] [place] [address] [place] Albumin/Creatinine (U) [Mass ratio] 53 mg/g High <30 [facility] Comment on above: Order Comment: Speci men Type: URINE SPECIMENOrdering Facility: [facility] Address: [address] [place] [address] Result Comment: Adul t Male and Female Nephrotic Criteria: <30 mg/g is considered normal to mildly increased 30-300 mg/g is considered moderately increased >300 mg/g is considered severely increased KDIGO. (2013). KDIGO 2012 Clinical Practice Guideline for the Evaluation and Management of Chronic Kidney Disease. Official Journal of the International Society of Nephrology, 3(1), 1-150. Performed By: #### U ACR ####[facility] [id number] [address] STATES OF [facility] Creatinine (U) [Mass/Vol] 91.3 mg/dL Normal 20.0-300.0 [facility] Comment on above: Order Comment: Speci men Type: URINE SPECIMENOrdering Facility: [facility] Address: [address] [place] [address] Performed By: #### U ACR ####[facility] [id number] [address] Comprehensive metabolic 2000 panelOrdered By: Valery Khan on 11-16-2024 Albumin [Mass/Vol] 4.5 g/dL 3.9 - 4.9 g/dL [facility] ALP [Catalytic activity/Vol] 119 U/L 34 - 123 U/L [facility] ALT [Catalytic activity/Vol] 12 U/L 7 - 38 U/L [facility] Anion gap [Moles/Vol] 21 mmol/L High 8 - 15 mmol/L [facility] AST [Catalytic activity/Vol] 13 U/L 13 - 35 U/L [facility] Bilirubin [Mass/Vol] 1.5 mg/dL High 0.2 - 1 .3 mg/dL [facility] Calcium [Mass/Vol] 9.7 mg/dL 8.5 - 10. 2 mg/dL [facility] Chloride [Moles/Vol] 98 mmol/L 98 - 10 7 mmol/L [facility] CO2 [Moles/Vol] 16 mmol/L Low 22 - 30 mmol/L [facility] Creatinine [Mass/Vol] 0.53 mg/dL Low 0.58 - 0.96 mg/dL [facility] GFR/1.73 sq M.predicted among non-blacks MDRD (S/P/Bld) [Vol rate/Area] 137 mL/min/{1.73_m2} - PINF [facility] Comment on above: Estimated Glomerular Filtration Rate (eGFR) is calculated using the 2020 CKD-EPI creatinine equation. This equation utilizes serum creatinine, sex, and age as parameters. The creatinine assay has traceable calibration to isotope dilution-mass spectrometry. Refer to KDIGO guidelines for clinical interpretation. In patients with unstable renal function, e.g. those with acute kidney injury, the eGFR may not accurately reflect actual GFR. Glucose [Mass/Vol] 322 mg/dL High 74 - 99 mg/dL [facility] Comment on above: The [place] Diabete s Association (ADA) provides guidance for cutoff values for fasting glucose and random glucose. The ADA defines fasting as no caloric intake for at least 8 hours. Fasting plasma glucose results between 100 to 125 mg/dL indicate increased risk for diabetes (prediabetes). Fasting plasma glucose results greater than or equal to 126 mg/dL meet the criteria for diagnosis of diabetes. In the absence of unequivocal hyperglycemia, results should be confirmed by repeat testing. In a patient with classic symptoms of hyperglycemia or hyperglycemic crisis, random plasma glucose results greater than or equal to 200 mg/dL meet the criteria for diagnosis of diabetes. Reference: Standards of Medical Care in Diabetes 2016, [place] Diabetes Association. Diabetes Care. 2016.39(Suppl 1). Interpretation and review of laboratory results Abnormal [facility] Potassium [Moles/Vol] 3.6 mmol/L Low 3.7 - 5.1 mmol/L [facility] Protein [Mass/Vol] 8.6 g/dL High 6.3 - 8.0 g/dL [facility] Sodium [Moles/Vol] 135 mmol/L Low 136 - 144 mmol/L [facility] Urea nitrogen [Mass/Vol] 9 mg/dL 7 - 21 mg/dL [facility] Comprehensive metabolic 2000 panelon 11-16-2024 Albumin [Mass/Vol] 4.5 g/dL Normal 3.9-4.9 [facility] Comment on above: Order Comment: Speci men Type: BLOOD SPECIMENOrdering Facility: [facility] Address: [address] [place] [address] Performed By: #### 2 4323-8 ####[facility] DEQUANMERCY HEALTH WILLARD HOSPITALHilda [id number] [place] [address] [place] ALP [Catalytic activity/Vol] 119 U/L Normal 34-123 [facility] Comment on above: Order Comment: Speci men Type: BLOOD SPECIMENOrdering Facility: [facility] Address: [address] [place] [address] Performed By: #### 2 4323-8 ####[facility] CENTERLIA [id number] [place] [address] [place] ALT [Catalytic activity/Vol] 12 U/L Normal 7-38 [facility] Comment on above: Order Comment: Speci men Type: BLOOD SPECIMENOrdering Facility: [facility] Address: [address] [place] [address] Performed By: #### 2 4323-8 ####[facility] [id number] [place] [address] [place] Anion gap [Moles/Vol] 21 mmol/L High 8-15 [facility] Comment on above: Order Comment: Speci men Type: BLOOD SPECIMENOrdering Facility: [facility] Address: [address] [place] [address] Performed By: #### 2 4323-8 ####[facility] [id number] [place] [address] [place] AST [Catalytic activity/Vol] 13 U/L Normal 13-35 [facility] Comment on above: Order Comment: Speci men Type: BLOOD SPECIMENOrdering Facility: [facility] Address: [address] [place] [address] Performed By: #### 2 4323-8 ####[facility] [id number] [place] [address] [place] Bilirubin [Mass/Vol] 1.5 mg/dL High 0.2-1.3 [facility] Comment on above: Order Comment: Speci men Type: BLOOD SPECIMENOrdering Facility: [facility] Address: [address] [place] [address] Performed By: #### 2 4323-8 ####[facility] MILLTOWNCLIA [id number] [place] [address] [place] Calcium [Mass/Vol] 9.7 mg/dL Normal 8.5-10.2 [facility] Comment on above: Order Comment: Speci men Type: BLOOD SPECIMENOrdering Facility: [facility] Address: [address] [place] [address] Performed By: #### 2 4323-8 ####[facility] MILLWNCLIA [id number] [place] [address] [place] Chloride [Moles/Vol] 98 mmol/L Normal 98-107 [facility] Comment on above: Order Comment: Speci men Type: BLOOD SPECIMENOrdering Facility: [facility] Address: [address] [place] [address] Performed By: #### 2 4323-8 ####[facility]ITALWNCLIA [id number] [place] [address] [place] CO2 [Moles/Vol] 16 mmol/L Low 22-30 [facility] Comment on above: Order Comment: Speci men Type: BLOOD SPECIMENOrdering Facility: [facility] Address: [address] [place] [address] Performed By: #### 2 4323-8 ####[facility] MILLTOWNCLIA [id number] [place] [address] [place] Creatinine [Mass/Vol] 0.53 mg/dL Low 0.58-0.96 [facility] Comment on above: Order Comment: Speci men Type: BLOOD SPECIMENOrdering Facility: [facility] Address: [address] [place] [address] Performed By: #### 2 4323-8 ####[facility] MILLTOWNCLIA [id number] [place] [address] [place] Creatinine and Glomerular filtration rate.predicted panel (S/P/Bld) 137 mL/min/1.73m??? Normal >=60 [facility] Comment on above: Order Comment: Marshall woodall Type: BLOOD SPECIMENOrdering Facility: [facility] Address: [address] [place] [address] Result Comment: Ignacia mated Glomerular Filtration Rate (eGFR) is calculated using the 2020 CKD-EPI creatinine equation. This equation utilizes serum creatinine, sex, and age as parameters. The creatinine assay has traceable calibration to isotope dilution-mass spectrometry. Refer to KDIGO guidelines for clinical interpretation. In patients with unstable renal function, e.g. those with acute kidney injury, the eGFR may not accurately reflect actual GFR. Performed By: #### 2 4323-8 ####[facility] [id number] [place] [address] [place] Glucose [Mass/Vol] 322 mg/dL High 74-99 [facility] Comment on above: Order Comment: Marshall woodall Type: BLOOD SPECIMENOrdering Facility: [facility] Address: [address] [place] [address] Result Comment: The [place] Diabetes Association (ADA) provides guidance for cutoff values for fasting glucose and random glucose. The ADA defines fasting as no caloric intake for at least 8 hours. Fasting plasma glucose results between 100 to 125 mg/dL indicate increased risk for diabetes (prediabetes). Fasting plasma glucose results greater than or equal to 126 mg/dL meet the criteria for diagnosis of diabetes. In the absence of unequivocal hyperglycemia, results should be confirmed by repeat testing. In a patient with classic symptoms of hyperglycemia or hyperglycemic crisis, random plasma glucose results greater than or equal to 200 mg/dL meet the criteria for diagnosis of diabetes. Reference: Standards of Medical Care in Diabetes 2016, [place] Diabetes Association. Diabetes Care. 2016.39(Suppl 1). Performed By: #### 2 4323-8 ####[facility] [id number] [place] [address] [place] Potassium [Moles/Vol] 3.6 mmol/L Low 3.7-5.1 [facility] Comment on above: Order Comment: Speci men Type: BLOOD SPECIMENOrdering Facility: [facility] Address: [address] [place] [address] Performed By: #### 2 4323-8 ####[facility] [id number] [place] [address] [place] Protein [Mass/Vol] 8.6 g/dL High 6.3-8.0 [facility] Comment on above: Order Comment: Speci men Type: BLOOD SPECIMENOrdering Facility: [facility] Address: [address] [place] [address] Performed By: #### 2 4323-8 ####[facility] [id number] [place] [address] [place] Sodium [Moles/Vol] 135 mmol/L Low 136-144 [facility] Comment on above: Order Comment: Speci men Type: BLOOD SPECIMENOrdering Facility: [facility] Address: [address] [place] [address] Performed By: #### 2 4323-8 ####[facility] [id number] [place] [address] [place] Urea nitrogen [Mass/Vol] 9 mg/dL Normal 7-21 [facility] Comment on above: Order Comment: Speci men Type: BLOOD SPECIMENOrdering Facility: [facility] Address: [address] [place] [address] Performed By: #### 2 4323-8 ####[facility] [id number] [place] [address] [place] Lipid 1996 panelon 5 Cholesterol [Mass/Vol] 171 mg/dL High <170 [facility] Comment on above: Order Comment: Speci men Type: BLOOD SPECIMENOrdering Facility: [facility] Address: [address] [place] [address] Result Comment: <170 mg/dL, Acceptable 170-199 mg/dL, Borderline high >199 mg/dL, High Performed By: #### 2 4331-1 ####[facility] [id number] [address] [id number] [address] STATES [facility]#### 3016-3 ####[facility] [id number] [address] [place] Cholesterol in HDL [Mass/Vol] 99 mg/dL Normal >45 [facility] Comment on above: Order Comment: Speci men Type: BLOOD SPECIMENOrdering Facility: [facility] Address: [address] [place] [address] Result Comment: >45 mg/dL, Acceptable 40-45 mg/dL, Borderline <40 mg/dL, Low Performed By: #### 2 4331-1 ####[facility] [id number] [address] [place] [id number] [place] [address] [place] [facility]#### 3016-3 ####[facility] [id number] [address] [place] Cholesterol in LDL [Mass/Vol] 50 mg/dL Normal <110 [facility] Comment on above: Order Comment: Speci men Type: BLOOD SPECIMENOrdering Facility: [facility] Address: [address] [place] [address] Result Comment: <110 mg/dL, Acceptable 110-129 mg/dL, Borderline high >129 mg/dL, High LDL cholesterol is calculated using the Aviles-NIH equation. Performed By: #### 2 4331-1 ####[facility] [id number] [address] [id number] [address] [place] [facility] [id number] [place] [address] [place]#### 3016-3 ####[facility] [id number] [facility] [address] [id number] [address] [place] Cholesterol in LDL/Cholesterol in HDL [Mass ratio] 0.51 {ratio} Normal <2.42 [facility] Comment on above: Order Comment: Speci men Type: BLOOD SPECIMENOrdering Facility: [facility] Address: [address] [place] [address] Result Comment: Gloria bernal: 1. Expert Panel on Integrated Guidelines for Cardiovascular Health and Risk Reduction in Children and Adolescents: National Heart, Lung and Blood [place]. Pediatrics. 2011: 128(Suppl 5):B005-110. Performed By: #### 2 4331-1 ####[facility] [id number] [facility] [address] [place] [address] [place] [facility] [id number] [place] [address] [place]#### 3016-3 ####[facility] [id number] [facility] [address] [place] [address] [place] Cholesterol in VLDL [Mass/Vol] 19 mg/dL High <18 [facility] Comment on above: Order Comment: Speci men Type: BLOOD SPECIMENOrdering Facility: [facility] Address: [address] [place] [address] Performed By: #### 2 4331-1 ####[facility] [id number] [address] [id number], [place] [address] [place] [facility] [id number] [place] [address] [place]#### 3016-3 ####[facility] [id number] [address] [place] [address] [place] Cholesterol non HDL [Mass/Vol] 72 mg/dL Normal <120 [facility] Comment on above: Order Comment: Speci men Type: BLOOD SPECIMENOrdering Facility: [facility] Address: [address] [place] [address] Result Comment: <120 mg/dL, Acceptable 120-144 mg/dL, Borderline high >144 mg/dL, High Performed By: #### 2 4331-1 ####[facility] [id number] [address] [place] [address] [place] [id number] [place] [address] [place]#### 3016-3 ####[facility] [id number] [address] [place] [address] [place] Cholesterol.total/Chol esterol in HDL [Mass ratio] 1.73 {ratio} Normal <3.76 [facility] Comment on above: Order Comment: Speci men Type: BLOOD SPECIMENOrdering Facility: [facility] Address: [address] [place] [address] Performed By: #### 2 4331-1 ####[facility] [id number] [address] [place] [address] [place] OF [facility] [id number] [place] [address] [place]#### 3016-3 ####[facility] [id number] [address] [address] [place] FASTING TIME 13 hrs Normal [facility] Comment on above: Order Comment: Speci men Type: BLOOD SPECIMENOrdering Facility: [facility] Address: [address] [place], [place] [address] Performed By: #### 2 4331-1 ####[facility] [id number] [address] [place] [address] [facility] [id number] [address] [place]#### 3016-3 ####[facility] [id number] [address], [address] STATES OF [place] Triglyceride [Mass/Vol] 135 mg/dL High <90 [facility] Comment on above: Order Comment: Speci men Type: BLOOD SPECIMENOrdering Facility: [facility] Address: [address] [place] [address] Result Comment: <90 mg/dL, Acceptable 90-129 mg/dL, Borderline high >129 mg/dL, High Performed By: #### 2 4331-1 ####[facility] [id number] [address], [address] STATES OF [facility] [id number] [address] STATES OF [place]#### 3016-3 ####[facility] [id number] [address], [place] [address] [place] TSH SerPl-aCncon 11-16-2024 TSH Qn 1.250 m[IU]/L Normal 0.510-4.300 [facility] Comment on above: Order Comment: Speci men Type: BLOOD SPECIMENOrdering Facility: [facility] Address: [address] [place] [address] Result Comment: If t he patient is , TSH reference range varies by gestational period: First Trimester (weeks 9-12): 0.180-2.990 mIU/L Second Trimester: 0.110-3.980 mIU/L Third Trimester: 0.480-4.710 mIU/L Lorne Paulson et al. A Practical Approach for the Verifications and Determination of Site- and Trimester-Specific Reference Intervals for Thyroid Function tests in . Thyroid, 2019:29:3:412-420. Raji E, et al. 2017 Guidelines of the [place] Thyroid Association for the Diagnosis and Management of Thyroid Disease during and the . Thyroid, 2017:27:3:315-389. Reference ranges were not locally established for this patient's age group. The normal values are based on the following source: Carine W, Tenisha V. Reference Ranges for Adults and Children: Pre-analytical Considerations. [facility] Performed By: #### 2 4331-1 ####[facility] [id number] [place] [id number] [facility] [id number] [address]#### 3016-3 ####[facility] [id number] [place] [id number] [facility] CNOVon 11-15-2024 CNOV Office Visit (ENWSTR ) CATALINA CAPELLAN ([id number]) 3 F Date Time Provider Department 11/15/24 4:00 PM KOURTNEY SHERMAN ENWSTR During your visit today, we recorded the following information about you: Temperature Pulse Respiration Blood pressure 97.7 degrees 127/minute 12/minute 122/80 Weight Last Period 71.6 kg 10/25/24 Jairo Michael, JES 11/20/2024 7:52 PM Signed Kourtney Sherman MD 11/20/2024 7:52 PM Signed [facility] Follow up note Referred by: Breanne Joshi MD (OBGYN) Chief complaint: Type 1 Diabetes mellitus History of Present Illness: Catalina Capellan is a 18 year old female with type 1 Diabetes who is presenting for follow up of type 1 DM after initial visit on 07/18/24. She is accompanied by her fiance and her child today -Initially diagnosed: In Mar 2023 -Circumstances around diagnosis: she had symptoms of polyuria, polydipsia, weight loss and she was admitted to hospital with DKA when she had symptoms and went to the ED. She was being managed by [facility] but was dropped after she had her baby in 01/2024 Started on Omnipod 5 in Apr 2023. She did not have her pump with her on last visit, but we have the device now and has been downloaded PMH: MAGGI QUINN . On control: on Verito now She is not breast feeding . Symptoms previously reported Recurrent yeast infections. Denied any weight changes recently Complications: Cardiovascular -- No Statin Use -- No Retinopathy -- No Last NUBIA/Retina Eval: last time she told it was October 2023, today she reported August 2023 after checking her calendar Nephropathy -- not known MARYLU/ARB Use -- No Polyneuropathy -- No Foot Exam: today Obesity -- No Other -- No -Family history of diabetes mellitus: type 2 DM in few family members Personal history of DKA or HHS-- DKA at diagnosis Personal history of pancreatitis-- No History of alcohol consumption--No Family history of thyroid cancer-- No Personal history of Urinary tract infections -- None is the recent past Diabetic education class: not completed Diabetes Medications -Current regimen: Omnipod 5 with Dexcom G6- started 1 month after diagnosis- in Apr 2023. Frequently administers correction doses, which she reports are effective. -Misses doses: Reports missing boluses 2-3 times per week. Occasionally administers insulin postprandially if preprandial bolus is forgotten. Previous A1c in December 2023: 5.9%. today POC is 9.4% Reports improvement in glycemic control over the past 1-2 months. Has been manually calculating bolus doses rather than using the pump's calculator. Current pump settings: Basal: 12 am : 1 units/hr Total basal: 24 units Insulin to carb ratio: 12 am - 1: 8 12.30 am- 1: 9 But mostly takes 1 unit per 10 gms ISF: 12 am: 35 mg/dl BG correction threshold 130 mg/dl BG target range: 110 mg/dl Active insulin time 3 hrs Denies needing insulin refills; only sensors were sent last time. -Adverse medication effects: none -Rotating injection sites: every 3 days on abdomen -Previously Used DM Meds: Yes . Blood sugars -Self monitoring of blood sugar via CGM Summary of Personal CGM Findings: Type of CGM: dexcom G6 1) CGM recording is adequate for interpretation. Worn 94% of time. 2) Average glucose is 204 mg/dL. BG range/St. Dev: 91 mg/dL 3) 49% time in range 70-180 mg/dL 4) Total frequency of hypoglycemia: 1% with BG < 70, <1% <54 - Hypoglycemia patterns: on fasting - Nocturnal hypoglycemia was NOT noted 5) Hyperglycemic episodes 21% with BG > 180, and 24% very high >250 - Hyperglycemia patterns: through out the day . Hypoglycemia -Hypoglycemic episodes: no -Frequency and timing of hypoglycemia: -Hypoglycemia awareness: yes, feels diaphoretic, shaking, dizziness, feeling not all there . Lifestyle -Exercise: occasionally -Diet: 2 to 3 meals, usually skips breakfast Breakfast: Lunch: Dinner: heaviest meal of the day She is eating regular meals . ROS: SYSTEMIC: Denies fatigue, malaise, energy, Weight has been stable, heat/cold intolerance, polydipsia EYES: Denies blurring of vision, diplopia, pain/discomfort, excessive tearing, swelling of eye lids, bulging, redness, dryness, NECK: Denies goiter, lump, pain/discomfort, dysphagia, hoarseness, sore thorat RESPIRATORY: Denies dyspnea at rest/with exertion, orthopnea cough, pleuritic chest pain, snoring, apnea episodes CARDIOVASCULAR: Chest pain, palpitations, irregular heart beats GASTRO-INTESTINAL:Denie s Nausea, vomiting, abdominal pain, hyperdefecation, rectal bleeding NEUROLOGICAL: Denies dizziness, lightheadedness, weakness, cramping, numbness/tingling of extremities MUSCULOSKELETAL: Denies joint pain, stiffness, swelling, cramping or weakness. GENITOURINARY: Denies polyuria, recurrent UTI/yeast i (more content not included)... Normal [facility] ON DEMANDon 5 Ordered by an unspecified provider. [facility] HEMOGLOBIN A1C (POC)on 11-15 HbA1c (Bld) [Mass fraction] 9.4 % Abnormal 4.3 - 5.6 % [facility] Comment on above: Location:[facility], [address], [place], [address] Point of care (POC) Hemoglobin A1c (HGBA1C) testing is intended to assess glucose control and provide a management tool for patients known to have diabetes and their healthcare providers. Target HGBA1C levels may depend on specific clinical circumstances. POC HGBA1C is not intended for use as a diagnostic or screening test; laboratory-based testing should be used for diagnostic purposes. The following information is supplemental and may not be applicable to specific diabetes management situations: The POC device family resource management specialist provides a normal range of 4.2% to 6.5% for the HGBA1C POC test. However, the [place] Diabetes Association guidelines indicate that patients with HGBA1C in the range of 5.7% to 6.4% are at increased risk for development of diabetes and that intervention by lifestyle modification may be beneficial. A HGBA1C level greater than or equal to 6.5% is considered diagnostic of diabetes, pending confirmatory testing. Use of HGBA1C testing to evaluate glucose control may not be appropriate for patients with hemoglobin variants or other conditions (e.g. anemia) that alter red blood cell lifespan. Interpretation and review of laboratory results Abnormal [facility] CNPNon 10-18-2024 [facility] CATALINA CAPELLAN ([id number]) 3 F Date Time Provider Department 10/18/24 KOURTNEY SHERMAN EMQ During your visit today, we recorded the following information about you: Luis Mayorga 10/18/2024 9:24 AM Signed Initiated PA for Omnipod Kit through [facility] verbally with Mamta Heredia Case#[phone] Questions Completed Waiting for determination Olga Lidia lovett policy Kits were changed from 365 days of supply to 720 day of supply Luis Prior Authorization Endocrinolgy [facility] [place] Allergies As of Date: 10/18/2024 Noted Allergy Reaction FLAGYL (METRONIDAZOLE) 09/10/2024 5 - Intolerance KETOROLAC 07/03/2024 4 - Hives Date Reviewed: 09/20/2024 Reviewed by: Marisol Green MA - Fully Assessed Reason for Visit: Resubmit Omnipod Kits [Other] Prescriptions as of 10/18/2024 - insulin scallop cutter machine cart,aut,G6/7,cntr (OMNIPOD 5 G6-G7 INTRO KT,GEN5,) crtg For use with the pump - Ethinyl Estradiol-Norelgestrom 150-35 mcg/24 hr patch Apply 1 Patch as directed one time a week. - fluticasone (FLONASE) 50 mcg/actuation nasal spray Use 2 Sprays in each nostril once daily. Rinse mouth after use. - insulin glargine (LANTUS SOLOSTAR U-100 INSULIN) 100 unit/mL (3 mL) Inject 15 Units subcutaneously daily at bedtime. - ONETOUCH DELICA PLUS LANCET 33 gauge Use with blood glucose test 4 times daily. Insulin Dep? Yes - ONETOUCH VERIO TEST STRIPS test strip Use with blood glucose test 4 times daily. Insulin Dep? Yesday - UNIFINE PENTIPS PLUS 32 gauge x 5/32 Use as directed to administer insulin 4-6 times per day. - Blood-Glucose Transmitter (DEXCOM G6 TRANSMITTER) leny 1 Each once every month. - acetaminophen-caffeine (EXCEDRIN TENSION HEADACHE) 500-65 mg tablet Take 1 tablet by mouth every 6 hours as needed. - cetirizine (ZYRTEC) 10 mg tablet Take 10 mg by mouth as needed for cold/allergy symptoms. As needed - DEXCOM G6 SENSOR leny Inject 1 Each subcutaneously every 2 weeks. - insulin pump cart,auto,BT,G6/7 (OMNIPOD 5 G6-G7 PODS, GEN 5,) crtg Inject 1 Each subcutaneously every 72 hours. - insulin lispro (HUMALOG KWIKPEN) 100 unit/mL Inject up to 50units SQ daily as directed based on IC ratio and correction factor - insulin lispro (HUMALOG KWIKPEN) 100 unit/mL In case of pump failure- take upto 30 units dialy - alcohol swabs Use as directed to test metered glucose and administer insulin. - ONETOUCH VERIO FLEX METER Use as directed to test metered glucose - OMNIPOD 5 G6 INTRO KIT, GEN 5, crtg as directed. Problem List As Of Date 10/18/2024 Noted Resolved Constipation during in first trimeste*02/12/2010 06/10/2024 Abdominal pain [R10.9] 02/12/2010 Sprain of ligament of right ankle [S93.401A] 04/10/2022 08/13/2023 9 weeks gestation of [Z3A.09] 08/13/2023 06/10/2024 Pre-existing type 1 diabetes mellitus in pregna*08/13/2023 06/10/2024 Nausea and vomiting during [O21.9] 08/13/2023 06/10/2024 Heart palpitations [R00.2] 08/13/2023 Shortness of breath [R06.02] 08/13/2023 Heartburn during in first trimester [*08/13/2023 06/10/2024 Family history of Down syndrome [Z82.79] 08/13/2023 Asymptomatic bacteriuria during [O99.*08/13/2023 06/10/2024 Subchorionic hematoma in first trimester [O41.8*08/13/2023 06/10/2024 Vaginal discharge during in first tri*08/13/2023 06/10/2024 Kidney stone complicating , first trim*08/13/2023 06/10/2024 UTI (urinary tract infection) during ,*08/15/2023 06/10/2024 Encounter Status:Closed by LUIS MAYORGA on 10/18/24 [facility] Matthias 10-11-2024 RONNIE Telephone (EMQ) CAPELLANCATALINA ([id number]) 3 F Date Time Provider Department 10/11/24 KOURTNEY SHERMAN During your visit today, we recorded the following information about you: GeorginaLuis Velasco 10/11/2024 12:12 PM Signed Initiated PA for Omnipod KitthroughCoverymymeds Waiting on Questions Allergies As of Date: 10/11/2024 Noted Allergy Reaction FLAGYL (METRONIDAZOLE) 09/10/2024 5 - Intolerance KETOROLAC 07/03/2024 4 - Hives Date Reviewed: 09/20/2024 Reviewed by: Marisol Green MA - Fully Assessed Reason for Visit: Pa Omnipod Kit [Other] Prescriptions as of 10/17/2024 - insulin scallop cutter machine cart,aut,G6/7,cntr (OMNIPOD 5 G6-G7 INTRO KT,GEN5,) crtg For use with the pump - Ethinyl Estradiol-Norelgestrom 150-35 mcg/24 hr patch Apply 1 Patch as directed one time a week. - fluticasone (FLONASE) 50 mcg/actuation nasal spray Use 2 Sprays in each nostril once daily. Rinse mouth after use. - insulin glargine (LANTUS SOLOSTAR U-100 INSULIN) 100 unit/mL (3 mL) Inject 15 Units subcutaneously daily at bedtime. - ONETOUCH DELICA PLUS LANCET 33 gauge Use with blood glucose test 4 times daily. Insulin Dep? Yes - ONETOUCH VERIO TEST STRIPS test strip Use with blood glucose test 4 times daily. Insulin Dep? Yesday - UNIFINE PENTIPS PLUS 32 gauge x Use as directed to administer insulin 4-6 times per day. - Blood-Glucose Transmitter (DEXCOM G6 TRANSMITTER) leny 1 Each once every month. - acetaminophen-caffeine (EXCEDRIN TENSION HEADACHE) 500-65 mg tablet Take 1 tablet by mouth every 6 hours as needed. - cetirizine (ZYRTEC) 10 mg tablet Take 10 mg by mouth as needed for cold/allergy symptoms. As needed - DEXCOM G6 SENSOR leny Inject 1 Each subcutaneously every 2 weeks. - insulin pump cart,auto,BT,G6/7 (OMNIPOD 5 G6-G7 PODS, GEN 5,) crtg Inject 1 Each subcutaneously every 72 hours. - insulin lispro (HUMALOG KWIKPEN) 100 unit/mL Inject up to 50units SQ daily as directed based on IC ratio and correction factor - insulin lispro (HUMALOG KWIKPEN) 100 unit/mL In case of pump failure- take upto 30 units dialy - alcohol swabs Use as directed to test metered glucose and administer insulin. - ONETOUCH VERIO FLEX METER Use as directed to test metered glucose - OMNIPOD 5 G6 INTRO KIT, GEN 5, crtg as directed. Problem List As Of Date 10/11/2024 Noted Resolved Constipation during in first trimeste*02/12/2010 06/10/2024 Abdominal pain [R10.9] 02/12/2010 Sprain of ligament of right ankle [S93.401A] 04/10/2022 08/13/2023 9 weeks gestation of [Z3A.09] 08/13/2023 06/10/2024 Pre-existing type 1 diabetes mellitus in pregna*08/13/2023 06/10/2024 Nausea and vomiting during [O21.9] 08/13/2023 06/10/2024 Heart palpitations [R00.2] 08/13/2023 Shortness of breath [R06.02] 08/13/2023 Heartburn during in first trimester [*08/13/2023 06/10/2024 Family history of Down syndrome [Z82.79] 08/13/2023 Asymptomatic bacteriuria during [O99.*08/13/2023 06/10/2024 Subchorionic hematoma in first trimester [O41.8*08/13/2023 06/10/2024 Vaginal discharge during in first tri*08/13/2023 06/10/2024 Kidney stone complicating , first trim*08/13/2023 06/10/2024 UTI (urinary tract infection) during ,*08/15/2023 06/10/2024 Encounter Status:Closed by LUIS MAYORGA on 10/11/24 [facility] Telephone (EMQ) CATALINA CAPELLAN ([id number]) 3 F Date Time Provider Department 10/11/24 KOURTNEY SHERMAN During your visit today, we recorded the following information about you: Jairo Michael RN 10/20/2024 8:49 AM Signed OPENED IN ERROR Allergies As of Date: 10/11/2024 Noted Allergy Reaction FLAGYL (METRONIDAZOLE) 09/10/2024 5 - Intolerance KETOROLAC 07/03/2024 4 - Hives Date Reviewed: 09/20/2024 Reviewed by: Marisol Green MA - Fully Assessed Prescriptions as of 10/20/2024 - insulin scallop cutter machine cart,aut,G6/7,cntr (OMNIPOD 5 G6-G7 INTRO KT,GEN5,) crtg For use with the pump - Ethinyl Estradiol-Norelgestrom 150-35 mcg/24 hr patch Apply 1 Patch as directed one time a week. - fluticasone (FLONASE) 50 mcg/actuation nasal spray Use 2 Sprays in each nostril once daily. Rinse mouth after use. - insulin glargine (LANTUS SOLOSTAR U-100 INSULIN) 100 unit/mL (3 mL) Inject 15 Units subcutaneously daily at bedtime. - ONETOUCH DELICA PLUS LANCET 33 gauge Use with blood glucose test 4 times daily. Insulin Dep? Yes - ONETOUCH VERIO TEST STRIPS test strip Use with blood glucose test 4 times daily. Insulin Dep? Yesday - UNIFINE PENTIPS PLUS 32 gauge x Use as directed to administer insulin 4-6 times per day. - Blood-Glucose Transmitter (DEXCOM G6 TRANSMITTER) leny 1 Each once every month. - acetaminophen-caffeine (EXCEDRIN TENSION HEADACHE) 500-65 mg tablet Take 1 tablet by mouth every 6 hours as needed. - cetirizine (ZYRTEC) 10 mg tablet Take 10 mg by mouth as needed for cold/allergy symptoms. As needed - DEXCOM G6 SENSOR leny Inject 1 Each subcutaneously every 2 weeks. - insulin pump cart,auto,BT,G6/7 (OMNIPOD 5 G6-G7 PODS, GEN 5,) crtg Inject 1 Each subcutaneously every 72 hours. - insulin lispro (HUMALOG KWIKPEN) 100 unit/mL Inject up to 50units SQ daily as directed based on IC ratio and correction factor - insulin lispro (HUMALOG KWIKPEN) 100 unit/mL In case of pump failure- take upto 30 units dialy - alcohol swabs Use as directed to test metered glucose and administer insulin. - ONETOUCH VERIO FLEX METER Use as directed to test metered glucose - OMNIPOD 5 G6 INTRO KIT, GEN 5, crtg as directed. Problem List As Of Date 10/11/2024 Noted Resolved Constipation during in first trimeste*02/12/2010 06/10/2024 Abdominal pain [R10.9] 02/12/2010 Sprain of ligament of right ankle [S93.401A] 04/10/2022 08/13/2023 9 weeks gestation of [Z3A.09] 08/13/2023 06/10/2024 Pre-existing type 1 diabetes mellitus in pregna*08/13/2023 06/10/2024 Nausea and vomiting during [O21.9] 08/13/2023 06/10/2024 Heart palpitations [R00.2] 08/13/2023 Shortness of breath [R06.02] 08/13/2023 Heartburn during in first trimester [*08/13/2023 06/10/2024 Family history of Down syndrome [Z82.79] 08/13/2023 Asymptomatic bacteriuria during [O99.*08/13/2023 06/10/2024 Subchorionic hematoma in first trimester [O41.8*08/13/2023 06/10/2024 Vaginal discharge during in first tri*08/13/2023 06/10/2024 Kidney stone complicating , first trim*08/13/2023 06/10/2024 UTI (urinary tract infection) during ,*08/15/2023 06/10/2024 Encounter Status:Closed by JAIRO MICHAEL on 10/20/24 Normal [facility] CNOVon 09-20-2024 CNOV Office Visit (UCWSTR ) CATALINA CAPELLAN ([id number]) 3 F Date Time Provider Department 09/20/24 6:45 PM [facility] During your visit today, we recorded the following information about you: Temperature Pulse Respiration Blood pressure 99.2 degrees 120/minute 18/minute 122/70 Weight 69.6 kg Melinda Oneill APRN.COOPERATIVE MANAGER 09/20/2024 7:16 PM Signed [facility] Subjective Catalina Capellan is a 18 year old female. Patient presents with: Sinus Problem: sinus pressure, drainage, headache x 1 week Sinus Problem Associated symptoms include congestion, coughing, fatigue, headaches and a sore throat. Catalina Caplelan is a 18 year old female who presents with sinus pressure and congestion, sore throat, headache, ear pain, neck pain and cough x 1 week. She took excedrin for headache. She has not had a fever. Her son has had recent URI symptoms also. Review of Systems Constitutional: Positive for fatigue. HENT: Positive for congestion, ear pain, sinus pressure, sinus pain and sore throat. Respiratory: Positive for cough. Cardiovascular: Negative. Musculoskeletal: Negative. Neurological: Positive for headaches. Objective BP 122/70 Pulse 120 Temp 37.3 ?C (99.2 ?F) Resp 18 Wt 69.6 kg (153 lb 7 oz) LMP 09/09/2024 (Exact Date) SpO2 97% BMI 24.77 kg/m? PAST MEDICAL HISTORY Diagnosis Date - Constipated - Eczema - POTS (postural orthostatic tachycardia syndrome) - Sprain of ligament of right ankle 04/10/2022 - Type 1 diabetes (HCC) PAST SURGICAL HISTORY Procedure Laterality Date - SECTION HX 01/2024 - CYSTOSCOPY,INSERT URETHRAL STENT - EGD - LITHROTRIPSY ALLERGIES Flagyl [Metronidazole] and Ketorolac MEDICATIONS - amoxicillin-clavulanate potassium (AUGMENTIN) 875-125 mg per tablet Take 1 tablet by mouth two times a day for 7 days. - fluticasone (FLONASE) 50 mcg/actuation nasal spray Use 2 Sprays in each nostril once daily. Rinse mouth after use. - insulin glargine (LANTUS SOLOSTAR U-100 INSULIN) 100 unit/mL (3 mL) Inject 15 Units subcutaneously daily at bedtime. - ONETOUCH DELICA PLUS LANCET 33 gauge Use with blood glucose test 4 times daily. Insulin Dep? Yes - ONETOUCH VERIO TEST STRIPS test strip Use with blood glucose test 4 times daily. Insulin Dep? Yesday - UNIFINE PENTIPS PLUS 32 gauge x Use as directed to administer insulin 4-6 times per day. - Blood-Glucose Transmitter (DEXCOM G6 TRANSMITTER) leny 1 Each once every month. - nystatin (MYCOSTATIN) cream Apply to affected area two times a day for 14 days. - acetaminophen-caffeine (EXCEDRIN TENSION HEADACHE) 500-65 mg tablet Take 1 tablet by mouth every 6 hours as needed. - cetirizine (ZYRTEC) 10 mg tablet Take 10 mg by mouth as needed for cold/allergy symptoms. As needed (Patient not taking: Reported on 09/20/2024) - DEXCOM G6 SENSOR leny Inject 1 Each subcutaneously every 2 weeks. - insulin pump cart,auto,BT,G6/7 (OMNIPOD 5 G6-G7 PODS, GEN 5,) crtg Inject 1 Each subcutaneously every 72 hours. - insulin lispro (HUMALOG KWIKPEN) 100 unit/mL Inject up to 50units SQ daily as directed based on IC ratio and correction factor - insulin lispro (HUMALOG KWIKPEN) 100 unit/mL In case of pump failure- take upto 30 units dialy - Drospirenone-Ethinyl Estradiol (VERITO, 28,) 3-0.03 mg per tablet Take 1 tablet by mouth once daily. - alcohol swabs Use as directed to test metered glucose and administer insulin. - ONETOUCH VERIO FLEX METER Use as directed to test metered glucose - OMNIPOD 5 G6 INTRO KIT, GEN 5, crtg as directed. FAMILY HISTORY Problem Relation Age of Onset - other (Hysterectomy) Mother - other (Other) Father Unknown - GI Maternal Grandmother - other (Sponge Kidney) Maternal Grandmother - Hypertension Maternal Grandfather - Heart Attack Maternal Grandfather Social History Tobacco Use - Smoking status: Never - Smokeless tobacco: Never Vaping Use - Vaping status: current everyday user - Substances: Nicotine - Devices: Pre-filled pod Substance Use Topics - Alcohol use: Never - Drug use: Never Physical Exam Vitals and nursing note reviewed. Constitutional: General: She is not in acute distress. Appearance: Normal appearance. She is not ill-appearing. HENT: Right Ear: Tympanic membrane, ear canal and external ear normal. Left Ear: Tympanic membrane, ear canal and external ear normal. Nose: Nasal tenderness, mucosal edema, congestion and rhinorrhea present. Mouth/Throat: Mouth: Mucous membranes are moist. Pharynx: Oropharynx is clear. No oropharyngeal exudate or posterior oropharyngeal erythema. Cardiovascular: Rate and Rhythm: Normal rate and regular rhythm. Heart sounds: Normal heart sounds. Pulmonary: Effort: Pulmonary effort is normal. No respiratory distress. Breath sounds: Normal breath sounds. No wheezing or ral (more content not included)... Normal [facility] CNOVon 09-17-2024 CNOV Office Visit (UCWSTR ) CATALINA CAPELLAN ([id number]) 3 F Date Time Provider Department 09/17/24 1:00 PM ASHELY CHAMBERS [facility] During your visit today, we recorded the following information about you: Temperature Pulse Respiration Blood pressure 98.1 degrees 111/minute 16/minute 119/84 Weight 70 kg Ashely Chambers PA 09/17/2024 1:09 PM Signed [facility] Subjective Catalina Li Marilia is a 18 year old female. Patient presents with: Sore Throat HPI 18-year-old female presents for sore throat. Patient has had sore throat for the past 2 days. She has a little bit of cough and nasal congestion. No fevers. Still able to eat and drink. No vomiting or diarrhea. Has not taken anything for symptoms. No other complaint PAST MEDICAL HISTORY Diagnosis Date Constipated Eczema POTS (postural orthostatic tachycardia syndrome) Sprain of ligament of right ankle 04/10/2022 Type 1 diabetes (HCC) PAST SURGICAL HISTORY Procedure Laterality Date SECTION HX 01/2024 CYSTOSCOPY,INSERT URETHRAL STENT EGD LITHROTRIPSY ALLERGIES Flagyl [Metronidazole] and Ketorolac MEDICATIONS clindamycin phosphate 2 % vaginal cream Use 1 Applicatorful vaginally daily at bedtime for 7 days. insulin glargine (LANTUS SOLOSTAR U-100 INSULIN) 100 unit/mL (3 mL) Inject 15 Units subcutaneously daily at bedtime. ONETOUCH DELICA PLUS LANCET 33 gauge Use with blood glucose test 4 times daily. Insulin Dep? Yes ONETOUCH VERIO TEST STRIPS test strip Use with blood glucose test 4 times daily. Insulin Dep? Yesday UNIFINE PENTIPS PLUS 32 gauge x Use as directed to administer insulin 4-6 times per day. Blood-Glucose Transmitter (DEXCOM G6 TRANSMITTER) leny 1 Each once every month. nystatin (MYCOSTATIN) cream Apply to affected area two times a day for 14 days. acetaminophen-caffeine (EXCEDRIN TENSION HEADACHE) 500-65 mg tablet Take 1 tablet by mouth every 6 hours as needed. cetirizine (ZYRTEC) 10 mg tablet Take 10 mg by mouth as needed for cold/allergy symptoms. As needed DEXCOM G6 SENSOR leny Inject 1 Each subcutaneously every 2 weeks. insulin pump cart,auto,BT,G6/7 (OMNIPOD 5 G6-G7 PODS, GEN 5,) crtg Inject 1 Each subcutaneously every 72 hours. insulin lispro (HUMALOG KWIKPEN) 100 unit/mL Inject up to 50units SQ daily as directed based on IC ratio and correction factor insulin lispro (HUMALOG KWIKPEN) 100 unit/mL In case of pump failure- take upto 30 units dialy Drospirenone-Ethinyl Estradiol (VERITO, 28,) 3-0.03 mg per tablet Take 1 tablet by mouth once daily. alcohol swabs Use as directed to test metered glucose and administer insulin. ONETOUCH VERIO FLEX METER Use as directed to test metered glucose OMNIPOD 5 G6 INTRO KIT, GEN 5, crtg as directed. FAMILY HISTORY Problem Relation Age of Onset other (Hysterectomy) Mother other (Other) Father Unknown GI Maternal Grandmother other (Sponge Kidney) Maternal Grandmother Hypertension Maternal Grandfather Heart Attack Maternal Grandfather Social History Tobacco Use Smoking status: Never Smokeless tobacco: Never Vaping Use Vaping status: current everyday user Substances: Nicotine Devices: Pre-filled pod Substance Use Topics Alcohol use: Never Drug use: Never Review of Systems Constitutional: Negative for chills and fever. HENT: Positive for congestion and sore throat. Negative for ear pain. Respiratory: Positive for cough. Negative for shortness of breath. Cardiovascular: Negative for chest pain. Gastrointestinal: Negative for diarrhea and vomiting. Objective BP 119/84 Pulse 111 Temp 36.7 ?C (98.1 ?F) Resp 16 Wt 70 kg (154 lb 5.2 oz) LMP 09/09/2024 (Exact Date) SpO2 99% BMI 24.91 kg/m? Physical Exam Vitals and nursing note reviewed. Constitutional: General: She is not in acute distress. Appearance: Normal appearance. She is not toxic-appearing. HENT: Right Ear: Tympanic membrane and ear canal normal. Left Ear: Tympanic membrane and ear canal normal. Nose: Nose normal. Mouth/Throat: Mouth: Mucous membranes are moist. Pharynx: Posterior oropharyngeal erythema present. Eyes: Conjunctiva/sclera: Conjunctivae normal. Cardiovascular: Rate and Rhythm: Normal rate and regular rhythm. Pulmonary: Effort: Pulmonary effort is normal. Breath sounds: Normal breath sounds. No wheezing, rhonchi or rales. Skin: General: Skin is warm and dry. Neurological: Mental Status: She is alert. {ASSESSMENT/PLAN: 1. Sore throat - ICD9: 462, ICD10: J02.9 (primary diagnosis) - suspect viral - Group A strep molecular testing negative - Discussed supportive care treatment with fluids, rest and analgesia. - The patient may also use warm salt water gargles, throat lozenges and/or OTC throat spray as needed. - STREP A MOLECULAR (POC) 2. URI, acute - ICD9: 465.9, ICD10: J06.9 - Discussed vir (more content not included)... Normal [facility] STREP A MOLECULAR (POC)on Procedural Control Valid [facility] Strep A (POCT) Negative Negative [facility] CNOVon 09-13-2024 CNOV Office Visit (OBGYWM ) JESÚS CAPELLANYCEE Jen ([id number]) 3 F Date Time Provider Department 09/13/24 8:20 AM BREANNE JOSHI During your visit today, we recorded the following information about you: Blood pressure Weight 110/60 68.5 kg Breanne Joshi MD 09/13/2024 10:02 AM Signed Commercial Maintenance Technician offered: Patient declines. Catalina Capellan is a 18 year old female who presents for vaginal discharge ongoing. Seen in urgent care and given flagyl and Diflucan for BV and yeast. Cultures were positive for both. Has not started the Diflucan and had a reaction to the flagyl. She stopped taking it before completing her treatment. Was given clindagel as replacement but has not started it. IS now on her period. Does have a new information developer but does not seem to be communicating well with her. She does not have good control of he BG. This morning was 199. Has been trying to manage her insulin herself. Vaginal discharge: thick and white. Itching: YES Dyspareunia: No Fever/chills: No Abdominal pain: Yes, Bladder: Negative for dysuria or frequency Bowel: No blood in stool, pain with BM, tarry stool, persistent diarrhea or constipation Any new sexual partners or concern for STD exposure: No Any history of STDs: None Contraception: combined hormonal contraceptives Past medical, surgical, social history, medications and allergies reviewed and updated. OBJECTIVE: SENSITIVE EXAM: Sensitive exam not performed. LMP 09/09/2024 Has not completed prescribed treatment and is bleeding today. No cultures collected GENERAL: Well developed, well nourished in no apparent distress ABDOMEN: Deferred PELVIC: deferred BIMANUAL: deferred. RECTOVAGINAL: deferred. ASSESSMENT/PLAN: Jayme, bacterial vaginosis No orders found for this visit on 09/13/24. STD screening: Declined STD check. Encouraged to complete current treatment. Needs to get BG under control or will not be able to stop recurrent infections. If she does not like her current Endo she needs to find a new one. MD Gianfranco Castro Reanna, MA 09/13/2024 8:30 AM Signed Minimizing irritation of the vulva (area around the vagina) Wear white cotton underwear. Avoid synthetic fabrics and tight clothing. Sleep wearing shorts or pajama bottoms without underwear. Shower as soon as possible after exercise. Avoid clothing detergents and soaps with perfumes or dyes. Use warm (not hot) water to wash the vulva and if you use soap use a product designed for sensitive skin (like Dove or Cetaphil). Do not douche or use creams/powders in the vulvar area unless instructed by your physician. If you must douche, use only plain warm water. Make sure the vulva is dry before dressing by patting dry with a towel. Avoid vigorous rubbing with the towel. You may want to use the blow dryer (on the cool setting only!) on the vulva. The most important way to let your body heal is by avoiding scratching. Many patients find it difficult to avoid scratching at night when they are most aware of the itchiness. You can try taking Benadryl just before bedtime. Some women find it helpful to wear cotton gloves to bed to avoid scratching at night. Allergies As of Date: 09/13/2024 Noted Allergy Reaction FLAGYL (METRONIDAZOLE) 09/10/2024 5 - Intolerance KETOROLAC 07/03/2024 4 - Hives Date Reviewed: 09/13/2024 Reviewed by: Breanne Joshi MD - Fully Assessed Reason for Visit: Vaginal Problem [117] Primary Visit Diagnosis:Vaginal yeast infection [B37.31] Other Visit Diagnoses:Pelvic pain [R10.2] Pre-existing type 1 diabetes mellitus in in first trimester [O24.011] BV (bacterial vaginosis) [N76.0, B96.89] Order(s):PELVIC US WHI [[id number]] Order #: [id number]: 1 FUTURE Prescriptions as of 09/13/2024 - clindamycin phosphate 2 % vaginal cream Use 1 Applicatorful vaginally daily at bedtime for 7 days. - insulin glargine (LANTUS SOLOSTAR U-100 INSULIN) 100 unit/mL (3 mL) Inject 15 Units subcutaneously daily at bedtime. - ONETOUCH DELICA PLUS LANCET 33 gauge Use with blood glucose test 4 times daily. Insulin Dep? Yes - ONETOUCH VERIO TEST STRIPS test strip Use with blood glucose test 4 times daily. Insulin Dep? Yesday - UNIFINE PENTIPS PLUS 32 gauge x Use as directed to administer insulin 4-6 times per day. - Blood-Glucose Transmitter (DEXCOM G6 TRANSMITTER) leny 1 Each once every month. - nystatin (MYCOSTATIN) cream Apply to affected area two times a day for 14 days. - acetaminophen-caffeine (EXCEDRIN TENSION HEADACHE) 500-65 mg tablet Take 1 tablet by mouth every 6 hours as needed. - cetirizine (ZYRTEC) 10 mg tablet Take 10 mg by mouth as needed for cold/allergy symptoms. As needed - DEXCOM G6 SENSOR leny Inject 1 Each subcutaneously every 2 weeks. - insulin pump cart,auto,BT,G6/7 (OMNIPOD 5 G6-G7 PODS, GEN 5,) crtg (more content not included)... Normal [facility] CNOVon 09-10-2024 CNOV Office Visit (WSTR ) CATALINA CAPELLAN ([id number]) 3 F Date Time Provider Department 09/10/24 2:00 PM ANICETO STRONG [facility] During your visit today, we recorded the following information about you: Temperature Pulse Respiration Blood pressure 98.4 degrees 104/minute 18/minute 106/73 Weight Last Period 68.2 kg 09/09/24 Aniceto Strong APRN.COOPERATIVE MANAGER 09/10/2024 2:07 PM Signed [facility] Subjective Catalina Capellan is a 18 year old female. Patient presents with: Allergic Reaction: Flagyl for BV, has taken 4 doses, now having numbness and tingling in all 4 extremities Patient came in with complaints of not being able to tolerate her Flagyl. Patient says it is making her numb and tingly. Patient says she took it yesterday for the last time. Patient says symptoms are improving now. Patient would like something else called in. The history is provided by the patient. No spanish interpreter/translator was used. Allergic Reaction Review of Systems Constitutional: Negative. HENT: Negative. Objective BP 106/73 Pulse 104 Temp 36.9 ?C (98.4 ?F) Resp 18 Wt 68.2 kg (150 lb 5.7 oz) LMP 09/09/2024 (Exact Date) SpO2 97% BMI 24.27 kg/m? Physical Exam Constitutional: Appearance: Normal appearance. Pulmonary: Effort: Pulmonary effort is normal. Neurological: Mental Status: She is alert. PAST MEDICAL HISTORY Diagnosis Date Constipated Eczema POTS (postural orthostatic tachycardia syndrome) Sprain of ligament of right ankle 04/10/2022 Type 1 diabetes (HCC) PAST SURGICAL HISTORY Procedure Laterality Date SECTION HX 01/2024 CYSTOSCOPY,INSERT URETHRAL STENT EGD LITHROTRIPSY ALLERGIES Flagyl [Metronidazole] and Ketorolac MEDICATIONS clindamycin phosphate 2 % vaginal cream Use 1 Applicatorful vaginally daily at bedtime for 7 days. insulin glargine (LANTUS SOLOSTAR U-100 INSULIN) 100 unit/mL (3 mL) Inject 15 Units subcutaneously daily at bedtime. ONETOUCH DELICA PLUS LANCET 33 gauge Use with blood glucose test 4 times daily. Insulin Dep? Yes ONETOUCH VERIO TEST STRIPS test strip Use with blood glucose test 4 times daily. Insulin Dep? Yesday UNIFINE PENTIPS PLUS 32 gauge x Use as directed to administer insulin 4-6 times per day. Blood-Glucose Transmitter (DEXCOM G6 TRANSMITTER) leny 1 Each once every month. nystatin (MYCOSTATIN) cream Apply to affected area two times a day for 14 days. acetaminophen-caffeine (EXCEDRIN TENSION HEADACHE) 500-65 mg tablet Take 1 tablet by mouth every 6 hours as needed. cetirizine (ZYRTEC) 10 mg tablet Take 10 mg by mouth as needed for cold/allergy symptoms. As needed DEXCOM G6 SENSOR leny Inject 1 Each subcutaneously every 2 weeks. insulin pump cart,auto,BT,G6/7 (OMNIPOD 5 G6-G7 PODS, GEN 5,) crtg Inject 1 Each subcutaneously every 72 hours. insulin lispro (HUMALOG KWIKPEN) 100 unit/mL Inject up to 50units SQ daily as directed based on IC ratio and correction factor insulin lispro (HUMALOG KWIKPEN) 100 unit/mL In case of pump failure- take upto 30 units dialy Drospirenone-Ethinyl Estradiol (VERITO, 28,) 3-0.03 mg per tablet Take 1 tablet by mouth once daily. alcohol swabs Use as directed to test metered glucose and administer insulin. ONETOUCH VERIO FLEX METER Use as directed to test metered glucose OMNIPOD 5 G6 INTRO KIT, GEN 5, crtg as directed. FAMILY HISTORY Problem Relation Age of Onset other (Hysterectomy) Mother other (Other) Father Unknown GI Maternal Grandmother other (Sponge Kidney) Maternal Grandmother Hypertension Maternal Grandfather Heart Attack Maternal Grandfather Social History Tobacco Use Smoking status: Never Smokeless tobacco: Never Vaping Use Vaping status: current everyday user Substances: Nicotine Devices: Pre-filled pod Substance Use Topics Alcohol use: Never Drug use: Never ASSESSMENT/PLAN: 1. Adverse effect of drug, initial encounter - ICD9: E947.9, ICD10: T50.905A - CLINDAMYCIN 2 % VAGINAL CREAM Educated about proper use of medication supportive therapies. Added Flagyl to her allergy list. Patient agreeable to care plan. Aniceto Strong APRN.COOPERATIVE MANAGER MDM Procedures Allergies As of Date: 09/10/2024 Noted Allergy Reaction FLAGYL (METRONIDAZOLE) 09/10/2024 5 - Intolerance KETOROLAC 07/03/2024 4 - Hives Date Reviewed: 09/10/2024 Reviewed by: Court Zaldivar MA - Fully Assessed Reason for Visit: Allergic Reaction [201] Cmt: Flagyl for BV, has taken 4 doses, now having numbness and tingling in all 4 extremities Primary Visit Diagnosis:Adverse effect of drug, initial encounter [T50.905A] Order(s):clindamycin phosphate 2 % vaginal creamUse 1 Applicatorful vaginally daily at bedtime for 7 days.Disp: 40 gRfl: 0 Prescriptions as of 09/10/2024 - clindamycin phosphate 2 % vaginal cream Use 1 Applicatorful vaginally daily at bedtime for 7 days. - i (more content not included)... Normal [facility] BACTERIAL VAGINOSIS NAATon 0 09-07-2024 Lactobacillus crispatus+gasseri+chente enii + Gardnerella vaginalis + Atopobium vaginae rRNA FIORELLA+probe Ql (Vag fld) Detected Abnormal Not detected [facility] Comment on above: Order Comment: Speci men Type: SWABOrdering Facility: [facility] Address: [address] [place] [address] Performed By: #### Yoni VAMP, [id number] ####[facility] [id number] [place] [address] [place] Bacteria Ur Culton Bacteria identified Cx Nom (U) ORGANISM ID: 1 10,000 -<50,000 CFU/ml Normal urogenital kishore Normal [facility] Comment on above: Performed By: #### 6 30-4 ####[facility] [id number] [place] [address] [place] C. trachomatis+N. gonorrhoea e DNA FIORELLA+probe Ql (Unsp spec)on 09-07-2024 C. trachomatis rRNA FIORELLA+probe Ql (Unsp spec) Not detected Normal Not detected [facility] Comment on above: Order Comment: Speci men Type: SWABOrdering Facility: [facility] Address: [address] [place] [address] Performed By: #### B VAMP, [id number] ####[facility] [id number] [place] [address] [place] N. gonorrhoeae rRNA FIORELLA+probe Ql (Unsp spec) Not detected Normal Not detected [facility] Comment on above: Order Comment: Speci men Type: SWABOrdering Facility: [facility] Address: [address] [place] [address] Performed By: #### B VAMP, [id number] ####[facility] [id number] [place] [address] [place] JAYME/TRICHOMONAS NAATon 0 09-07-2024 C. glabrata RNA FIORELLA+probe Ql (Vag fld) Not detected Normal Not detected [facility] Comment on above: Order Comment: Speci men Type: SWABOrdering Facility: [facility] Address: [address] [place] [address] Performed By: #### C VTV ####[facility] [id number] [address] [place] Jayme sp DNA FIORELLA+probe Ql (Vag fld) Detected Abnormal Not detected [facility] Comment on above: Order Comment: Speci men Type: SWABOrdering Facility: [facility] Address: [address] [place] [address] Result Comment: The Jayme species group target includes C. albicans, C. tropicalis, C. parapsilosis, and C. dubliniensis. Performed By: #### C VTV ####[facility] [id number] [address] [place] T. vaginalis DNA FIORELLA+probe Ql (Unsp spec) Not detected Normal Not detected [facility] Comment on above: Order Comment: Speci men Type: SWABOrdering Facility: [facility] Address: [address] [place] [address] Performed By: #### C VTV ####[facility] [id number] [address] [place] CNOVon 09-07-2024 CNOV Office Visit (UCWSTR ) CATALINA CAPELLAN ([id number]) 3 F Date Time Provider Department 09/07/24 4:00 PM ANICETO STRONG During your visit today, we recorded the following information about you: Temperature Pulse Respiration Blood pressure 98.6 degrees 122/minute 16/minute 118/72 Weight 63.8 kg Aniceto Strong APRN.COOPERATIVE MANAGER 09/07/2024 6:01 PM Signed CC: Patient presents with: Urinary Problem HPI Catalina Capellan is a 18 year old female here for vaginal discharge and itching. She has had malodorous white/yellow discharge x one week. She reports itching, dyspareunia, pelvic pain and vaginal burning when she voids. Denies abnormal bleeding, N/V/D,chills or fever. She is not concerned about STD's. She uses oral contraceptives. No routine condom use. Since May 2024 she reports having 10 yeast infections. She has been using monistat OTC for these. She said symptoms no sooner improve when another infection was starting. She is Type I Diabetic with uncontrolled blood glucose readings. She said they have ranged from 200 to 600 since having her son in January. She was without an information developer and her normal medications for A while, but is now established and seeing Endo. She claims to be adherent to her current regimen. She has not seen a patient registration manager since her child's . She has an appointment to see SPRING COILING MACHINE SETTER Dr. Salamanca 09/13/2024. Review of Systems Constitutional: Negative for chills, fatigue and fever. Respiratory: Negative for shortness of breath. Cardiovascular: Negative for chest pain and palpitations. Gastrointestinal: Negative for diarrhea, nausea, rectal pain and vomiting. Genitourinary: Positive for dyspareunia, frequency, pelvic pain, urgency, vaginal discharge and vaginal pain. Negative for genital sores, menstrual problem and vaginal bleeding. Skin: Negative for rash. PAST MEDICAL HISTORY Diagnosis Date Constipated Eczema POTS (postural orthostatic tachycardia syndrome) Sprain of ligament of right ankle 04/10/2022 Type 1 diabetes (HCC) PAST SURGICAL HISTORY Procedure Laterality Date SECTION HX 01/2024 CYSTOSCOPY,INSERT URETHRAL STENT EGD LITHROTRIPSY ALLERGIES Ketorolac MEDICATIONS DEXCOM G6 SENSOR leny Inject 1 Each subcutaneously every 2 weeks. insulin pump cart,auto,BT,G6/7 (OMNIPOD 5 G6-G7 PODS, GEN 5,) crtg Inject 1 Each subcutaneously every 72 hours. insulin lispro (HUMALOG KWIKPEN) 100 unit/mL Inject up to 50units SQ daily as directed based on IC ratio and correction factor insulin lispro (HUMALOG KWIKPEN) 100 unit/mL In case of pump failure- take upto 30 units dialy insulin glargine (LANTUS SOLOSTAR U-100 INSULIN) 100 unit/mL (3 mL) In case of pump failure- upto 15 units daily Drospirenone-Ethinyl Estradiol (VERITO, 28,) 3-0.03 mg per tablet Take 1 tablet by mouth once daily. ONETOUCH VERIO TEST STRIPS test strip Use as directed to test metered glucose 6-8 times per day ONETOUCH VERIO FLEX METER Use as directed to test metered glucose OMNIPOD 5 G6 INTRO KIT, GEN 5, crtg as directed. ONETOUCH DELICA PLUS LANCET 33 gauge Use as directed to test metered glucose 6-8 times per day UNIFINE PENTIPS PLUS 32 gauge x 5/32 Use as directed to administer insulin 4-6 times per day. nystatin (MYCOSTATIN) cream Apply to affected area two times a day for 14 days. fluconazole (DIFLUCAN) 150 mg tablet Take 1 tablet by mouth one time only for 1 dose. Repeat in 3 days as needed. acetaminophen-caffeine (EXCEDRIN TENSION HEADACHE) 500-65 mg tablet Take 1 tablet by mouth every 6 hours as needed. cetirizine (ZYRTEC) 10 mg tablet Take 10 mg by mouth as needed for cold/allergy symptoms. As needed alcohol swabs Use as directed to test metered glucose and administer insulin. FAMILY HISTORY Problem Relation Age of Onset other (Hysterectomy) Mother other (Other) Father Unknown GI Maternal Grandmother other (Sponge Kidney) Maternal Grandmother Hypertension Maternal Grandfather Heart Attack Maternal Grandfather Social History Tobacco Use Smoking status: Never Smokeless tobacco: Never Vaping Use Vaping status: current everyday user Substances: Nicotine Devices: Pre-filled pod Substance Use Topics Alcohol use: Never Drug use: Never BP 118/72 Pulse (!) 122 Temp 37 ?C (98.6 ?F) Resp 16 Wt 63.8 kg (140 lb 10.5 oz) LMP 05/16/2024 (Approximate) SpO2 97% BMI 22.70 kg/m? Physical Exam Cardiovascular: Rate and Rhythm: Tachycardia present. Heart sounds: Normal heart sounds, S1 normal and S2 normal. No murmur heard. Pulmonary: Effort: Pulmonary effort is normal. Breath sounds: Normal breath sounds. No decreased breath sounds, wheezing or rhonchi. Abdominal: General: Bowel sounds are normal. Palpations: Abdomen is soft. There is no mass. Tenderness: There is abdominal tenderness in the suprapubic area. There (more content not included)... Normal [facility] [facility] UA DIP, URINE (POC)on 2024 BILIRUBIN UA (POCT) Negative Negative [facility] CLARITY UA (POCT) Slightly Cloudy Cl [facility] COLOR UA (POCT) Light yellow [facility] GLUCOSE UA (POCT) 500 mg/dL Abnormal Negative [facility] Hemoglobin Ql (U) Moderate Abnormal Negative [facility] Interpretation and review of laboratory results Abnormal [facility] KETONE UA (POCT) 80 mg/dL Abnormal Negative [facility] LEUKOCYTES UA (POCT) Negative Negative [facility] NITRITE UA (POCT) Negative Negative [facility] PH UA (POCT) 6 4.5 - 8.0 [facility] Protein Ql (U) Trace Abnormal Negative mg/dL [facility] SPECIFIC GRAVITY UA (POCT) 1.015 1.005 - 1.030 [facility] UROBILINOGEN UA (POCT) 0.2 Normal E.U./d L [facility] Location:[address], [place], [address] [facility] POINT OF CARE [facility] CNPHelen 07-19-2024 CNPN Telephone (ENWSTR) CATALINA CAPELLAN ([id number]) 3 F Date Time Provider Department 07/19/24 KOURTNEY SHERMAN ENWSTR During your visit today, we recorded the following information about you: Breanne Degroot MA 07/19/2024 3:22 PM Signed Cover My Meds [place] guerrier [id number] started VIVI Presley Jennifer, MA 07/21/2024 11:03 AM Signed Outcome Denied on July 20 by [place] [employer] 2017 Coverage is provided when the member meets ALL the following requirements: 1. Provider has attested that the patient has an improvement in the control of diabetes relative to baseline 2. Patient or someone assisting the patient capable of managing the pump and is the patient being monitored for side effects. [facility] Policy for Medical Necessity as posted on the [facility] website was reviewed and per [place] Administrative Code Rule 5160-1-01 (C) and (B), a medically necessary service must include: generally accepted standards of medical practice, be clinically appropriate in administration, treatment and outcome and be the lowest cost alternative to effectively treat the condition. Please contact your provider to assist you with other treatment options that might be covered under your benefit package, or other services that might be available through the community. Breanne Degroot MA Allergies As of Date: 07/19/2024 Noted Allergy Reaction KETOROLAC 07/03/2024 4 - Hives Date Reviewed: 07/18/2024 Reviewed by: Breanne Degroot MA - Fully Assessed Reason for Visit: Prior Auth for Omnipods [Other] Prescriptions as of 07/21/2024 - acetaminophen-caffeine (EXCEDRIN TENSION HEADACHE) 500-65 mg tablet Take 1 tablet by mouth every 6 hours as needed. - cetirizine (ZYRTEC) 10 mg tablet Take 10 mg by mouth as needed for cold/allergy symptoms. As needed - DEXCOM G6 SENSOR leny Inject 1 Each subcutaneously every 2 weeks. - insulin pump cart,auto,BT,G6/7 (OMNIPOD 5 G6-G7 PODS, GEN 5,) crtg Inject 1 Each subcutaneously every 72 hours. - insulin lispro (HUMALOG KWIKPEN) 100 unit/mL Inject up to 50units SQ daily as directed based on IC ratio and correction factor - insulin lispro (HUMALOG KWIKPEN) 100 unit/mL In case of pump failure- take upto 30 units dialy - insulin glargine (LANTUS SOLOSTAR U-100 INSULIN) 100 unit/mL (3 mL) In case of pump failure- upto 15 units daily - Drospirenone-Ethinyl Estradiol (VERITO, 28,) 3-0.03 mg per tablet Take 1 tablet by mouth once daily. - alcohol swabs Use as directed to test metered glucose and administer insulin. - ONETOUCH VERIO TEST STRIPS test strip Use as directed to test metered glucose 6-8 times per day - ONETOUCH VERIO FLEX METER Use as directed to test metered glucose - OMNIPOD 5 G6 INTRO KIT, GEN 5, crtg as directed. - ONETOUCH DELICA PLUS LANCET 33 gauge Use as directed to test metered glucose 6-8 times per day - UNIFINE PENTIPS PLUS 32 gauge x 5/32 Use as directed to administer insulin 4-6 times per day. Problem List As Of Date 07/19/2024 Noted Resolved Constipation during in first trimeste*02/12/2010 06/10/2024 Abdominal pain [R10.9] 02/12/2010 Sprain of ligament of right ankle [S93.401A] 04/10/2022 08/13/2023 9 weeks gestation of [Z3A.09] 08/13/2023 06/10/2024 Pre-existing type 1 diabetes mellitus in pregna*08/13/2023 06/10/2024 Nausea and vomiting during [O21.9] 08/13/2023 06/10/2024 Heart palpitations [R00.2] 08/13/2023 Shortness of breath [R06.02] 08/13/2023 Heartburn during in first trimester [*08/13/2023 06/10/2024 Family history of Down syndrome [Z82.79] 08/13/2023 Asymptomatic bacteriuria during [O99.*08/13/2023 06/10/2024 Subchorionic hematoma in first trimester [O41.8*08/13/2023 06/10/2024 Vaginal discharge during in first tri*08/13/2023 06/10/2024 Kidney stone complicating , first trim*08/13/2023 06/10/2024 UTI (urinary tract infection) during ,*08/15/2023 06/10/2024 Encounter Status:Closed by BREANNE DEGROOT on 07/19/24 [facility] CNOVon 07-18-2024 CNOV Office Visit (ENWSTR ) CATALINA CAPELLAN ([id number]) 3 F Date Time Provider Department 07/18/24 10:00 AM KOURTNEY SHERMAN ENWSTHIERRY During your visit today, we recorded the following information about you: Temperature Pulse Blood pressure Weight 97.8 degrees 93/minute 102/76 67.5 kg Height 1.676 m Kourtney Sherman MD 07/18/2024 5:22 PM Signed [facility] Initial Clinic Visit Note Referred by: Breanne Joshi MD (OBGYN) Chief complaint: Type 1 Diabetes mellitus My final recommendations will be communicated back to the requesting physician by way of shared medical record or letter via [place] mail. History of Present Illness: Catalina Capellan is a 18 year old female with type 1 Diabetes who is presenting to establish care and thus renew her medications. She is accompanied by her fiance and her child today -Initially diagnosed: In Mar 2023 -Circumstances around diagnosis: she had symptoms of polyuria, polydipsia, weight loss and she was admitted to hospital with DKA when she had symptoms and went to the ED. She was being managed by [facility] but was dropped after she had her baby in 01/2024 PMH: GERD, POTS . On control: on Verito now She is not breast feeding . Symptoms Recurrent yeast infections Denied any weight changes recently Complications: Cardiovascular -- No Statin Use -- No Retinopathy -- No Last NUBIA/Retina Eval: October 2023 Nephropathy -- not known MARYLU/ARB Use -- No Polyneuropathy -- No Foot Exam: today Obesity -- No Other -- No -Family history of diabetes mellitus: type 2 DM in few family members Personal history of DKA or HHS-- DKA at diagnosis Personal history of pancreatitis-- No History of alcohol consumption--No Family history of thyroid cancer-- No Personal history of Urinary tract infections -- None is the recent past Diabetic education class: not completed Diabetes Medications -Current regimen: Omnipod 5 with Dexcom G6- started 1 month after diagnosis - automated pump- changes every 3 days ICR: 1:14 SF: could not tell. They did not bring Omnipod with them initially, at the end of the encounter they were advised to bring to see if downloading data is possible, but it was not -Misses doses: None -Adverse medication effects: none -Rotating injection sites: every 3 days on abdomen -Previously Used DM Meds: Yes . Blood sugars -Self monitoring of blood sugar via CGM: dexcom No data available to review today . Hypoglycemia -Hypoglycemic episodes: no -Frequency and timing of hypoglycemia: -Hypoglycemia awareness: yes, feels diaphoretic, shaking, dizziness, feeling not all there . Lifestyle -Exercise: occasionally -Diet: 2 to 3 meals, usually skips breakfast Breakfast: Lunch: Dinner: heaviest meal of the day She is eating regular meals . ROS: SYSTEMIC: Denies fatigue, malaise, energy, Weight has been stable, heat/cold intolerance, polydipsia EYES: Denies blurring of vision, diplopia, pain/discomfort, excessive tearing, swelling of eye lids, bulging, redness, dryness, NECK: Denies goiter, lump, pain/discomfort, dysphagia, hoarseness, sore thorat RESPIRATORY: Denies dyspnea at rest/with exertion, orthopnea cough, pleuritic chest pain, snoring, apnea episodes CARDIOVASCULAR: Chest pain, palpitations, irregular heart beats GASTRO-INTESTINAL:Denie s Nausea, vomiting, abdominal pain, hyperdefecation, rectal bleeding NEUROLOGICAL: Denies dizziness, lightheadedness, weakness, cramping, numbness/tingling of extremities MUSCULOSKELETAL: Denies joint pain, stiffness, swelling, cramping or weakness. GENITOURINARY: Denies polyuria, recurrent UTI/yeast infections SKIN: Denies dryness, brittle nails, hair loss, alopecia, excessive sweating, flushing, darkening of skin PSYCHIATRIC: Denies anxiety, depression, panic attacks, irritability, mood swings Past Medical History PAST MEDICAL HISTORY Diagnosis Date Constipated Eczema POTS (postural orthostatic tachycardia syndrome) Sprain of ligament of right ankle 04/10/2022 Type 1 diabetes (HCC) Past Surgical History PAST SURGICAL HISTORY Procedure Laterality Date SECTION HX 01/2024 CYSTOSCOPY,INSERT URETHRAL STENT EGD LITHROTRIPSY Family History FAMILY HISTORY Problem Relation Age of Onset other (Hysterectomy) Mother other (Other) Father Unknown GI Maternal Grandmother other (Sponge Kidney) Maternal Grandmother Hypertension Maternal Grandfather Heart Attack Maternal Grandfather Social History Social History Tobacco Use Smoking status: Never Smokeless tobacco: Never Vaping Use Vaping status: current everyday user Substances: Nicotine Devices: Pre-filled pod Substance Use Topics Alcohol use: Never Drug use: Never Allergies ALLERGIES No Known Allergies Current Medication (more content not included)... Normal [facility] Abdomen/Pelvis W IV Cont ONL Yon 07-03-2024 Abdomen/Pelvis W IV Cont ONLY [facility] [address] [place] [address] [id number] Abdomen/Pelvis W IV Cont ONLY MR#: [id number] Acct: [id number] Name: CATALINA CAPELLAN Rep #: [id number] : 2005 F 18 From: Shira Onofre MD PCP: Dr. Dian Velez MD Status: [facility] ER Study: Abdomen/Pelvis W IV Cont ONLY Date of Exam: Exam# [id number] Ordering [place]: [place] [id number] EXAM: CT ABDOMEN AND PELVIS WITH INTRAVENOUS CONTRAST CLINICAL INDICATION: upper abd pain TECHNIQUE: Helically acquired images were obtained of the abdomen and pelvis with intravenous contrast. This CT exam was performed using one or more of the following dose reduction techniques: automated exposure control, adjustment of the mA and/or kV according to patient size, and/or use of iterative reconstruction technique. CONTRAST: IV 100mL Isovue-370 RADIATION DOSE: CTDIvol = 6.80 mGy, DLP = 358.58 mGy-cm. COMPARISON: March 03, 2024 showing slight dense material layering dependently in the gallbladder. FINDINGS: LOWER THORAX: Mildly distended distal esophagus with fluid may be due to reflux, it is 2 cm AP. Lung bases are clear. No cardiomegaly. No significant pericardial effusion. ABDOMEN: LIVER: Unremarkable. Homogeneous. No focal mass. GALLBLADDER AND BILE DUCTS: Contracted gallbladder. No calcified gallstones. No gallbladder distention or wall edema. No intra- or extrahepatic biliary ductal dilation. PANCREAS: Unremarkable. No focal cystic or solid mass. SPLEEN: Unremarkable. Normal size without focal cystic or solid mass. ADRENALS: Unremarkable. No nodules. KIDNEYS AND URETERS: Right nephrolithiasis, 2 tiny stones are suspected in the right kidney, new from prior exam. No hydronephrosis or ureter stone. Normal renal size and position. STOMACH AND BOWEL: Mild-moderate gas and stool in the proximal half of the colon, mild gas in the distal colon and rectum. No stomach or bowel distention. No focal inflammatory change. PELVIS: APPENDIX: Normal gas-filled appendix is best seen on coronal images. BLADDER: Unremarkable. REPRODUCTIVE: Thick-walled peripherally enhance dominant follicle of 2 cm x 1.7 cm x 2.6 cm in the left ovary. ABDOMEN and PELVIS: INTRAPERITONEAL SPACE: Slight free fluid in the pelvis. No free air. BONES/JOINTS: Unremarkable. No suspicious lytic or blastic abnormality. SOFT TISSUES: Unremarkable. No discrete abdominal or pelvic wall hernia. VASCULATURE: Unremarkable. Abdominal aorta is non-dilated. LYMPH NODES: Mild mesenteric adenopathy in the root of the mesentery. CT/Abdomen/Pelvis W IV Cont ONLY IMPRESSION: 1. 2.6 cm dominant left ovarian follicle, not suspicious by size criteria. 2. Slight intrapelvic fluid. 3. Mild mesenteric adenopathy, similar. 4. Right nephrolithiasis. 5. Mild fluid distention of the distal esophagus is new, suspected reflux. Electronically Signed: Shira Onofre MD at 20:50 EST , CC: Dr. Jd Barrios MD; Dr. Dian Velez MD 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Signed Normal [facility] CBC W/Diff, Automatedon 01-0 5-2024 Absolute Lymph 2.04 X10 3/uL Normal 0.83-4.51 [facility] Comment on above: Performed By: #### L 100.0100, L501.2450, L500.4050 #### [facility] [address] [place], [address] Absolute Neut 4.4 X10 3/uL Normal 2.0-7.7 [facility] Comment on above: Performed By: #### L 100.0100, L501.2450, L500.4050 #### [facility] [address] [place], [address] Basophils/100 WBC (Bld) 0.3 % Normal 0-1 [facility] Comment on above: Performed By: #### L 100.0100, L501.2450, L500.4050 #### [facility] [address] [place], [address] Eosinophils/100 WBC (Bld) 5.8 % High 0-5 [facility] Comment on above: Performed By: #### L 100.0100, L501.2450, L500.4050 #### [facility] [address] [place], [address] Erythrocyte distribution width (RBC) [Ratio] 13.0 % Normal 11.6-14.6 [facility] Comment on above: Performed By: #### L 100.0100, L501.2450, L500.4050 #### [facility] [address] [place], [address] Hematocrit (Bld) [Volume fraction] 42.7 % Normal 37-47 [facility] Comment on above: Performed By: #### L 100.0100, L501.2450, L500.4050 #### [facility] [address] [place], [address] Hemoglobin (Bld) [Mass/Vol] 13.6 g/dL Normal 12.0-15.0 [facility] Comment on above: Performed By: #### L 100.0100, L501.2450, L500.4050 #### [facility] [address] [place], [address] IG% 0.400 Normal 0.0-0.9 [facility] Comment on above: Result Comment: IG% - Immature Granulocytes (promyelocytes, myelocytes and metamyelocytes) > 1% indicates that a LEFT SHIFT is Present. Performed By: #### L 100.0100, L501.2450, L500.4050 #### [facility] [address] [place], [address] Lymphocytes/100 WBC (Bld) 26.3 % Normal 19-41 [facility] Comment on above: Performed By: #### L 100.0100, L501.2450, L500.4050 #### [facility] [address] [place], [address] MCH (RBC) [Entitic mass] 27.4 pg Normal 27.0-32.0 [facility] Comment on above: Performed By: #### L 100.0100, L501.2450, L500.4050 #### [facility] [address] [place], [address] MCHC (RBC) [Mass/Vol] 31.9 g/dL Low 32-36 [facility] Comment on above: Performed By: #### L 100.0100, L501.2450, L500.4050 #### [facility] [address] [place], [address] MCV (RBC) [Entitic vol] 86.1 fL Normal 81-99 [facility] Comment on above: Performed By: #### L 100.0100, L501.2450, L500.4050 #### [facility] [address] [place], [address] Monocytes/100 WBC (Bld) 10.9 % High 0-10 [facility] Comment on above: Performed By: #### L 100.0100, L501.2450, L500.4050 #### [facility] [address] [place], [address] Neutrophils/100 WBC (Bld) 56.3 % Normal 47-70 [facility] Comment on above: Performed By: #### L 100.0100, L501.2450, L500.4050 #### [facility] [address] [place], [address] Nucleated RBC (Bld) [#/Vol] 0 10*3/uL Normal 0-5 [facility] Comment on above: Performed By: #### L 100.0100, L501.2450, L500.4050 #### [facility] [address] [place], [address] Platelet mean volume (Bld) [Entitic vol] 11.6 fL Normal 6.2-12.0 [facility] Comment on above: Performed By: #### L 100.0100, L501.2450, L500.4050 #### [facility] [address] [place], [address] Platelets (Bld) [#/Vol] 290 10*3/uL Normal 150-450 [facility] Comment on above: Performed By: #### L 100.0100, L501.2450, L500.4050 #### [facility] [address] [place], [address] RBC (Bld) [#/Vol] 4.96 10*6/uL Normal 4.2-5.4 [facility] Comment on above: Performed By: #### L 100.0100, L501.2450, L500.4050 #### [facility] [address] [place], [address] RDW SD 39.9 fl Normal 35.1-43.9 [facility] Comment on above: Performed By: #### L 100.0100, L501.2450, L500.4050 #### [facility] [address] [place], [address] WBC (Bld) [#/Vol] 7.8 10*3/uL Normal 4.4-11.0 [facility] Comment on above: Performed By: #### L 100.0100, L501.2450, L500.4050 #### [facility] [address] [place], [address] CNOVon 07-03-2024 CNOV Office Visit (UCWSTR ) CATALINA CAPELLAN ([id number]) 3 F Date Time Provider Department 07/03/24 3:00 PM ANICETO STRONG [facility] During your visit today, we recorded the following information about you: Aniceto Strong APRN.COOPERATIVE MANAGER 07/03/2024 3:02 PM Signed Patient came in with complaints of abdominal pain. Patient is slightly tender in the lower abdomen but mostly tender in the upper abdomen. Patient is more painful when palpated. Patient says it is about a 7 out of 10 abdominal pain. Patient says has been getting worse over the last week. Patient does have a 4-month-old son. Patient does still have her gallbladder and appendix. Patient said it gets much worse after she drinks. At this time no imaging or labs available patient is being referred to the emergency room for an evaluation. Patient agreeable to care plan. Patient will go now. Allergies As of Date: 07/03/2024 (No Known Allergies) Date Reviewed: 06/10/2024 Reviewed by: Breanne Joshi MD - Fully Assessed Primary Visit Diagnosis:Pain of upper abdomen [R10.10] Prescriptions as of 07/03/2024 - Drospirenone-Ethinyl Estradiol (VERITO, 28,) 3-0.03 mg per tablet Take 1 tablet by mouth once daily. - DEXCOM G6 SENSOR leny Use as directed. Change sensor every 10 days. - alcohol swabs Use as directed to test metered glucose and administer insulin. - ONETOUCH VERIO TEST STRIPS test strip Use as directed to test metered glucose 6-8 times per day - ONETOUCH VERIO FLEX METER Use as directed to test metered glucose - insulin lispro (HUMALOG KWIKPEN) 100 unit/mL Inject up to 50units SQ daily as directed based on IC ratio and correction factor - OMNIPOD 5 G6 INTRO KIT, GEN 5, crtg as directed. - ONETOUCH DELICA PLUS LANCET 33 gauge Use as directed to test metered glucose 6-8 times per day - UNIFINE PENTIPS PLUS 32 gauge x 5/32 Use as directed to administer insulin 4-6 times per day. Problem List As Of Date 07/03/2024 Noted Resolved Constipation during in first trimeste*02/12/2010 06/10/2024 Abdominal pain [R10.9] 02/12/2010 Sprain of ligament of right ankle [S93.401A] 04/10/2022 08/13/2023 9 weeks gestation of [Z3A.09] 08/13/2023 06/10/2024 Pre-existing type 1 diabetes mellitus in pregna*08/13/2023 06/10/2024 Nausea and vomiting during [O21.9] 08/13/2023 06/10/2024 Heart palpitations [R00.2] 08/13/2023 Shortness of breath [R06.02] 08/13/2023 Heartburn during in first trimester [*08/13/2023 06/10/2024 Family history of Down syndrome [Z82.79] 08/13/2023 Asymptomatic bacteriuria during [O99.*08/13/2023 06/10/2024 Subchorionic hematoma in first trimester [O41.8*08/13/2023 06/10/2024 Vaginal discharge during in first tri*08/13/2023 06/10/2024 Kidney stone complicating , first trim*08/13/2023 06/10/2024 UTI (urinary tract infection) during ,*08/15/2023 06/10/2024 Encounter Status:Closed by ANICETO STRONG on 07/03/24 Normal [facility] Metabolic Prof ilon 07-03-2024 Albumin [Mass/Vol] 3.5 g/dL Normal 3.2-5.0 [facility] Comment on above: Performed By: #### M , M100.3000 #### [facility] [address] [place], [address] Albumin/Globulin [Mass ratio] 0.8 {ratio} Low 0.9-2.4 [facility] Comment on above: Performed By: #### M , M100.3000 #### [facility] [address] [place], [address] ALK P 121 U/L High 45-117 [facility] Comment on above: Performed By: #### M , M100.3000 #### [facility] [address] [place], [address] ALT [Catalytic activity/Vol] 23 U/L Normal 13-56 [facility] Comment on above: Performed By: #### M , M100.3000 #### [facility] [address] [place], [address] AST [Catalytic activity/Vol] 21 U/L Normal 15-37 [facility] Comment on above: Result Comment: Slig ht Hemolysis, Result may be falsely increased. Performed By: #### M , M100.3000 #### [facility] [address] [place], [address] Bilirubin [Mass/Vol] 0.40 mg/dL Normal 0.20-1.00 [facility] Comment on above: Result Comment: For patients on eltrombopag therapy, use of Dimension Fenton TBIL is not recommended. Performed By: #### M , .2999 #### [facility] [address] [place], [address] BUN/CRE 16.6 RATIO Normal 10-20 [facility] Comment on above: Performed By: #### M , .2999 #### [facility] [address] [place], [address] CA,Total 9.0 mg/dL Normal 8.5-10.1 [facility] Comment on above: Performed By: #### M , .2999 #### [facility] [address] [place], [address] Chloride [Moles/Vol] 100 mmol/L Normal 98-107 [facility] Comment on above: Performed By: #### M , .2999 #### [facility] [address] [place], [address] CO2 [Moles/Vol] 23.0 mmol/L Normal 21.0-32.0 [facility] Comment on above: Performed By: #### M , .2999 #### [facility] [address] [place], [address] Creatinine [Mass/Vol] 0.72 mg/dL Normal 0.55-1.02 [facility] Comment on above: Result Comment: The validity of the calculated GFR GFRAA in patients over 70 years has not been determined. Clinical correlation is essential. Performed By: #### M , .2999 #### [facility] [address] [place], [address] ECRCL 117.65 ml/min Normal [facility] Comment on above: Performed By: #### M , .3000 #### [facility] [address] [place], [address] EST GFR - AA 133 mL/min Normal >60 [facility] Comment on above: Result Comment: Afri can Nigerian GFR Calc Performed By: #### M , 00.3000 #### [facility] [address] [place], [address] GAP 9 Normal 5-15 [facility] Comment on above: Performed By: #### M , .3000 #### [facility] [address] [place], [address] GFR/1.73 sq M.predicted among non-blacks MDRD (S/P/Bld) [Vol rate/Area] 110 mL/min/{1.73_m2} Normal >60 [facility] Comment on above: Result Comment: Non- GFR Calc Performed By: #### M , .3000 #### [facility] [address] [place], [address] Globulin (S) [Mass/Vol] 4.5 g/dL High 2.2-4.2 [facility] Comment on above: Performed By: #### M , .3000 #### [facility] [address] [place], [address] Glucose [Mass/Vol] 441 mg/dL High 74-106 [facility] Comment on above: Result Comment: Gluc ose result greater than or equal to 200 mg/dL suggests DIABETES MELLITUS per A.D.A. criteria. Performed By: #### M , 00.3000 #### [facility] [address] [place], [address] Potassium [Moles/Vol] 4.0 mmol/L Normal 3.5-5.1 [facility] Comment on above: Result Comment: Slig ht Hemolysis, Result may be falsely increased. Performed By: #### M , M100.3000 #### [facility] [address] [place], [address] Sodium [Moles/Vol] 132 mmol/L Low 136-145 [facility] Comment on above: Performed By: #### M 100.1999, M100.3000 #### [facility] [address] [place], [address] T PROT 8.0 g/dL Normal 6.4-8.2 [facility] Comment on above: Performed By: #### M 100.1999, M100.3000 #### [facility] [address] [place], [address] Urea nitrogen [Mass/Vol] 12 mg/dL Normal 7-18 [facility] Comment on above: Performed By: #### M 100.1999, M100.3000 #### [facility] [address] [place], [address] Emergency Department Summary on 07-03-2024 Emergency Department Summary [facility] Medical Records Department [address] [place] [address] Emergency Department Summary 07/03/24 MR#: [id number] Acct: [id number] Name: CATALINA CAPELLAN Rep #: [id number] : 2005 18 From: Alverto Madrigal CARPET SEWING MACHINE OPERATORHector PCP: Dr. Dian Velez MD Status:DEP ER Location: ED HPI History of Present Illness Chief Complaint: Abd Pain Narrative Narrative: Patient is a 18-year-old female with history of type 1 diabetes presenting to the emergency department with complaints of epigastric pain nausea that is been ongoing for greater than 1 week. Patient states that she feels a gnawing sensation in her stomach that is worse in the morning and when she was the bed, she also has increasing pain when she is eating. She states she has tried Tums with no relief. She has not seen a specialist for this. She denies any specific vomiting however does have nausea. Patient dates she has diarrhea however this is chronic. [facility] Medical History POTS (postural orthostatic tachycardia syndrome) Type 1 diabetes mellitus Anxiety Home Medications ???Medication ???Instructions ???Recorded ???Last Taken ???Type insulin lispro 100 unit/mL 0 - 50 unit subcut DAILY 12/09/23 Unknown History subcutaneous pen insulin lispro 100 unit/mL 0 - 67 unit subcut UD 12/09/23 Unknown History subcutaneous solution (Humalog U-100 Insulin) insulin pump cart,automated,BT 01/28/24 Unknown History (Omnipod 5 G6 Pods (Gen 5) subcutaneous cartridge) nifedipine 30 mg tablet,extended 60 mg PO QHS 03/03/24 Unknown History release 24 hr drospirenone 3 mg-ethinyl 1 tab PO DAILY 07/03/24 Unknown History estradiol 0.03 mg tablet omeprazole 40 mg capsule,delayed 40 mg PO DAILY #30 caps 07/03/24 Unknown Rx release sucralfate 1 gram tablet (Carafate) 1 g PO TID #21 tabs 07/03/24 Unknown Rx Allergy/AdvReac Type Severity Reaction Status Date / Time ketorolac (From Toradol) Allergy Mild Hives Verified 07/03/24 16:55 Social History Smoking Status: Current some day smoker tobacco type: e-cigarettes substance use type: does not use ROS ROS ED ROS Narrative Constitutional: Negative for fever, chills, weight loss, weakness Eyes: Negative for vision loss, vision change, double vision ENT: Negative for any sore throat, ear pain, congestion Cardiovascular: Negative for any chest pain, tightness, palpitations Respiratory: Negative for any cough, sputum production, hemoptysis, dyspnea, dyspnea on exertion, orthopnea Gastrointestinal: Negative for any vomiting, diarrhea, constipation, blood in stool, blood in vomit. Positive for abdominal pain, epigastric pain : Negative for any urinary frequency, dysuria, retention, blood in urine Muscle skeletal: Negative for any neck pain, back pain Neurological: Negative for any headache, syncope, dizziness Skin: Negative for any rashes, itching, abrasions, lacerations Psychiatric: Negative for any depression, anxiety, stress, suicidal ideation, homicidal ideation Hematologic: Negative for any excessive bruising, easy bleeding EXAM Physical Exam Narrative Exam Narrative: Vital signs reviewed. HEET: Head normocephalic atraumatic, TMs clear bilaterally. Posterior pharynx is clear, moist mucous membranes. Nares clear bilaterally. Neck: Supple with no lymphadenopathy or tenderness. No signs of meningismus. Cardiac: Regular rate and rhythm no murmurs gallops or rubs, equal peripheral pulses bilaterally. Respiratory: Lungs clear to auscultation bilaterally. No chest tenderness. Abdomen: Soft nondistended. No abdominal bruit or pulsatile masses. No hepatosplenomegaly. Patient has pain on palpation epigastric, left upper abdomen, negative pain to the right upper quadrant, negative Lr sign. No pain along McBurney's point. No lower abdominal pain. Extremities: No peripheral edema, no signs of gross trauma or deformity. Active full range of motion of all extremities. Neuro: Cranial nerves II through XII intact, no focal neurological deficits. Skin: Clean dry and intact with no rash, purpura, petechiae, vesicles or pustules. Backs/flank: No CVA tenderness, no midline spinal tenderness, no deformity. Psych: Normal mood and affect. No SI, HI or acute psychosis. Const Vital Signs: 07/03/24 16:55 07/03/24 19:10 Temperature 98.1 F Temperature Source Oral Pulse Rate 95 85 Respiratory Rate 16 16 Blood Pressure 120/72 119/83 H Blood Pressure Mean 88 95 Pulse Ox 100 99 Oxygen Delivery Method Room Air Room Air Positive well nourished and well developed General Appearance ED: well developed Physical Exam Const Vital Signs: 07/03/24 16:55 07/03/24 19:10 Temperature 98 (more content not included)... Normal [facility] Lipaseon 07-03-2024 Lipase [Catalytic activity/Vol] 46 U/L Normal 13-75 [facility] Comment on above: Result Comment: Sheyla dnun note: LIPASE revised reference range effective 22. New Lipase methodology. Expected to produce lower values than the previous assay method. NEW Reference Range: 13 - 75 U/L Performed By: #### M 100.2000, M100.3000 #### [facility] [address] [place], [place], [id number] ,Serum,hCG Quali.on 07-03-2024 HCG, SERUM QUAL Negative Normal [facility] Comment on above: Performed By: #### M 100.2000, M100.3000 #### [facility] [address], [address] CNOVon 06-24-2024 CNOV Office Visit (UCWSTR ) CATALINA CAPELLAN ([id number]) 3 F Date Time Provider Department 06/24/24 6:00 PM ASHELY CHAMBERS [facility] During your visit today, we recorded the following information about you: Ashely Chambers PA 06/24/2024 6:01 PM Signed This note was created using [employer]. Subjective Catalinajustin Capellan is a 18 year old female. HPI 18-year-old female type I diabetic presents for sore throat, cough, vomiting. Patient states she has had symptoms for about 2 to 3 days. She has had 2-3 episodes of vomiting today. She denies any fevers. No abdominal pain. She states she has had a cough and her chest feels heavy due to coughing. Patient states her glucose has been elevated. Currently it is 330. She has not eaten for the past 6 hours. She states that she ran out of her insulin pump 2 days ago. She did get it refilled today, but does not have it on yet. Patient states she is feeling a little lightheaded. She is tachycardic as well here. No chest pain. No other complaint. PAST MEDICAL HISTORY Diagnosis Date Constipated Eczema POTS (postural orthostatic tachycardia syndrome) Sprain of ligament of right ankle 04/10/2022 Type 1 diabetes (HCC) PAST SURGICAL HISTORY Procedure Laterality Date SECTION HX 01/2024 CYSTOSCOPY,INSERT URETHRAL STENT EGD LITHROTRIPSY ALLERGIES Patient has no known allergies. MEDICATIONS Drospirenone-Ethinyl Estradiol (VERITO, 28,) 3-0.03 mg per tablet Take 1 tablet by mouth once daily. DEXCOM G6 SENSOR leny Use as directed. Change sensor every 10 days. alcohol swabs Use as directed to test metered glucose and administer insulin. ONETOUCH VERIO TEST STRIPS test strip Use as directed to test metered glucose 6-8 times per day ONETOUCH VERIO FLEX METER Use as directed to test metered glucose insulin lispro (HUMALOG KWIKPEN) 100 unit/mL Inject up to 50units SQ daily as directed based on IC ratio and correction factor OMNIPOD 5 G6 INTRO KIT, GEN 5, crtg as directed. ONETOUCH DELICA PLUS LANCET 33 gauge Use as directed to test metered glucose 6-8 times per day UNIFINE PENTIPS PLUS 32 gauge x 5/32 Use as directed to administer insulin 4-6 times per day. FAMILY HISTORY Problem Relation Age of Onset other (Hysterectomy) Mother other (Other) Father Unknown GI Maternal Grandmother other (Sponge Kidney) Maternal Grandmother Hypertension Maternal Grandfather Heart Attack Maternal Grandfather Social History Tobacco Use Smoking status: Never Smokeless tobacco: Never Vaping Use Vaping status: current everyday user Substances: Nicotine Devices: Pre-filled pod Substance Use Topics Alcohol use: Never Drug use: Never Review of Systems Constitutional: Negative for chills and fever. HENT: Positive for sore throat. Negative for congestion and ear pain. Respiratory: Positive for cough. Negative for shortness of breath. Cardiovascular: Negative for chest pain. Gastrointestinal: Positive for vomiting. Negative for abdominal pain and diarrhea. Neurological: Positive for dizziness and light-headedness. Objective LMP 05/16/2024 (Approximate) Physical Exam Vitals and nursing note reviewed. Constitutional: General: She is not in acute distress. Appearance: Normal appearance. She is not toxic-appearing. HENT: Nose: Nose normal. Mouth/Throat: Mouth: Mucous membranes are dry. Cardiovascular: Rate and Rhythm: Regular rhythm. Tachycardia present. Pulmonary: Effort: Pulmonary effort is normal. Breath sounds: Normal breath sounds. Skin: General: Skin is warm and dry. Neurological: Mental Status: She is alert. Assessment and Plan ASSESSMENT/PLAN: 1. Tachycardia - ICD9: 785.0, ICD10: R00.0 (primary diagnosis) -Heart rate 130. -Patient reports feeling lightheaded/dizzy. -Type I diabetic, out of insulin x 2 days. Glucose 330 on Dexcom. Has been vomiting. -Recommend evaluation in ER for full workup, concern for dehydration 2. Dizziness - ICD9: 780.4, ICD10: R42 3. Hyperglycemia - ICD9: 790.29, ICD10: R73.9 Diagnosis and treatment plan were discussed and questions were answered to the patient's satisfaction. Pt acknowledged understanding of concepts and follow up plan. Specific signs and symptoms that would indicate the need for higher level of care were discussed in detail warranting prompt ER evaluation. NICOLLE Guaman Allergies As of Date: 06/24/2024 (No Known Allergies) Date Reviewed: 06/10/2024 Reviewed by: Breanne Joshi MD - Fully Assessed Primary Visit Diagnosis:Tachycardia [R00.0] Other Visit Diagnoses:Dizziness [R42] Hyperglycemia [R73.9] Prescriptions as of 06/24/2024 - Drospirenone-Ethinyl Estradiol (VERITO, 28,) 3-0.03 mg per tablet Take 1 tablet by mouth once daily. - DEXCOM G6 SENSOR leny Use as directed. Change sensor every 10 days. - alcohol swabs Use as directed t (more content not included)... Normal [facility] Chest PA and Lateralon 06-24 Chest PA and Lateral [facility] [address] [place] [id number] Chest PA and Lateral MR#: [id number] Acct: [id number] Name: CATALINA CAPELLAN Rep #: [id number] : 2005 F 18 From: Peterson Lewis MD PCP: Dr. Dian Velez MD Status: DEP ER Study: Chest PA and Lateral Date of Exam: 06/24/24 Exam# [id number] Ordering Dr: Alverto Madrigal CARPET SEWING MACHINE OPERATOR-C [id number] EXAM: XR CHEST, 2 VIEWS CLINICAL INDICATION: cough TECHNIQUE: Frontal and lateral views of the chest. COMPARISON: 01/21/23 FINDINGS: LUNGS AND PLEURAL SPACES: Unremarkable. No consolidation or edema. No pneumothorax. No effusion. HEART: Unremarkable. Cardiac silhouette not enlarged. MEDIASTINUM: Central airways and mediastinal contour are unremarkable. BONES/JOINTS: Unremarkable. No acute fracture. SOFT TISSUES: Unremarkable. RAD/Chest PA and Lateral IMPRESSION: No radiographic evidence of acute cardiopulmonary disease. Electronically Signed: Peterson Lewis MD at 21:58 EST Reading Location ID and State: [facility] / [place] Tel , Service support , CC: SYDNEE Madrigal; Dr. Dian Velez MD 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Signed Normal [facility] Emergency Department Summary on 06-24-2024 Emergency Department Summary [facility] Medical Records Department [address] [place] [address] Emergency Department Summary 06/24/24 MR#: [id number] Acct: [id number] Name: CATALINA CAPELLAN Rep #: [id number] : 2005 18 From: Alverto RANDHAWA PCP: Dr. Dian Velez MD Status:DEP ER Location: ED HPI History of Present Illness Chief Complaint: Cold Sx Narrative Narrative: Patient is a 18-year-old female with no significant medical history presents to the emergency department with complaints of cough, congestion some with sore throat, nausea and vomitings been ongoing for the last 2 days. Patient states that her child at home had similar symptoms. Patient today, she felt more weak, dizzy and is here for evaluation. Patient does have a cough that is dry. [facility] Medical History POTS (postural orthostatic tachycardia syndrome) Type 1 diabetes mellitus Anxiety Home Medications ???Medication ???Instructions ???Recorded ???Last Taken ???Type aspirin 81 mg tablet,delayed 81 mg PO DAILY 12/09/23 Unknown History release glucagon 3 mg/actuation nasal 3 mg intranasal DAILY PRN 12/09/23 Unknown History spray (Baqsimi) hypoglycemia insulin lispro 100 unit/mL 0 - 50 unit subcut DAILY 12/09/23 Unknown History subcutaneous pen insulin lispro 100 unit/mL 0 - 67 unit subcut UD 12/09/23 Unknown History subcutaneous solution (Humalog U-100 Insulin) insulin pump cart,automated,BT 01/28/24 Unknown History (Omnipod 5 G6 Pods (Gen 5) subcutaneous cartridge) ferrous sulfate 325 mg (65 mg 325 mg PO DAILY 03/03/24 Unknown History iron) tablet (FeroSul) ibuprofen 600 mg tablet 600 mg PO Q6H PRN PRN fever or pain 03/03/24 Unknown History nifedipine 30 mg tablet,extended 60 mg PO QHS 03/03/24 Unknown History release 24 hr oxycodone 5 mg tablet 5 mg PO Q8H PRN pain 2 days #5 tabs 03/03/24 Unknown Rx sulfamethoxazole 800 1 tab PO BID 7 days #14 tabs 03/03/24 Unknown Rx mg-trimethoprim 160 mg tablet (Bactrim DS) ondansetron 4 mg disintegrating 4 mg PO Q8H PRN PRN Nausea #10 tabs 06/24/24 Unknown Rx tablet Allergy/AdvReac Type Severity Reaction Status Date / Time ketorolac (From Toradol) Allergy Mild Hives Verified 06/24/24 20:42 Social History Smoking Status: Current some day smoker tobacco type: e-cigarettes substance use type: does not use ROS ROS ED ROS Narrative Constitutional: Negative for weight loss, weakness. Positive fever and chills Eyes: Negative for vision loss, vision change, double vision ENT: Negative for any sore throat, ear pain, congestion Cardiovascular: Negative for any chest pain, tightness, palpitations Respiratory: Negative for any sputum production, hemoptysis, dyspnea, dyspnea on exertion, orthopnea. Positive for cough Gastrointestinal: Negative for any abdominal pain, diarrhea, constipation, blood in stool, blood in vomit. Positive for nausea and vomiting : Negative for any urinary frequency, dysuria, retention, blood in urine Muscle skeletal: Negative for any neck pain, back pain Neurological: Negative for any syncope, dizziness. Positive headache Skin: Negative for any rashes, itching, abrasions, lacerations Psychiatric: Negative for any depression, anxiety, stress, suicidal ideation, homicidal ideation Hematologic: Negative for any excessive bruising, easy bleeding EXAM Physical Exam Narrative Exam Narrative: Vital signs reviewed. HEET: Head normocephalic atraumatic, TMs clear bilaterally. Posterior pharynx is clear, moist mucous membranes. Nares clear bilaterally. Neck: Supple with no lymphadenopathy or tenderness. No signs of meningismus. Cardiac: Regular rate and rhythm no murmurs gallops or rubs, equal peripheral pulses bilaterally. Respiratory: Tachycardic rate,. No chest tenderness. Abdomen: Soft, nontender, nondistended. No abdominal bruit or pulsatile masses. No hepatosplenomegaly Extremities: No peripheral edema, no signs of gross trauma or deformity. Active full range of motion of all extremities. Neuro: Cranial nerves II through XII intact, no focal neurological deficits. Skin: Clean dry and intact with no rash, purpura, petechiae, vesicles or pustules. Backs/flank: No CVA tenderness, no midline spinal tenderness, no deformity. Psych: Normal mood and affect. No SI, HI or acute psychosis. Const Vital Signs: 06/24/24 18:34 06/24/24 18:34 06/24/24 18:37 Temperature 98.1 F 98.1 F Temperature Source Oral Oral Pulse Rate 122 H 122 H Respiratory Rate 16 16 Respiratory Effort Normal Non-Labored Respiratory Pattern Normal Blood Pressure 125/88 H 125/88 H Blood Pressure Mean 100 100 Pulse Ox 100 98 Oxygen Delivery Method Room Air Room Air (more content not included)... Normal [facility] M100.677on 06-24-2024 M100.677 Negative Normal [facility] Comment on above: Performed By: #### M 100.677 #### [facility] [address] [facility]. [place], [place], [address] M100.678on 06-24-2024 M100.678 Pending SARS-CoV-2 (COVID 19) Negative INFLUENZA A Negative INFLUENZA B Negative RSV PCR Negative Normal [facility] Comment on above: Performed By: #### M 100.678 #### [facility] [address] [facility]. [place], [place], [address] CNOVon 06-10-2024 CNOV Office Visit (OBGYWM ) CATALINA CAPELLAN ([id number]) 3 F Date Time Provider Department 06/10/24 9:20 AM BREANNE JOSHI During your visit today, we recorded the following information about you: Blood pressure Weight Last Period 110/62 71.7 kg 05/16/24 Breanne Joshi MD 06/10/2024 11:45 AM Signed CONTRACEPTION Catalina Li Marilia is a 18 year old who presents today for contraception. Patient's last menstrual period was 05/16/2024 (approximate).. HPI: Dysmenorrhea Yes Heavy menses Yes Irregular menses Yes Has been using contraceptive patch for the last 3 months. Bleeding more than not. Previously did ok with the patch. Wants to try OCs again. Was only on the patch because she had trouble remembering to take the pills. Has not established with a new endocrine yet. Requests a referral. Has not run out of insulin yet. SUBJECTIVE Sexually active: Yes Smoking Yes Vaping no cigarettes Last PAP Method of control: Patch Methods tried previously: OCP and Patch Patient currently interested in: Patch or OCP Interested in in the next 3 years? No Date of last test: Not applicable Relevant Past Medical History: History of diabetes type I OB History T0 L1 SAB0 IAB0 Ectopic0 Multiple0 Live Births1 PAST MEDICAL HISTORY Diagnosis Date Constipated Eczema POTS (postural orthostatic tachycardia syndrome) Sprain of ligament of right ankle 04/10/2022 Type 1 diabetes (HCC) PAST SURGICAL HISTORY Procedure Laterality Date SECTION HX 01/2024 CYSTOSCOPY,INSERT URETHRAL STENT EGD LITHROTRIPSY FAMILY HISTORY Problem Relation Age of Onset other (Hysterectomy) Mother other (Other) Father Unknown GI Maternal Grandmother other (Sponge Kidney) Maternal Grandmother Hypertension Maternal Grandfather Heart Attack Maternal Grandfather SOCIAL HISTORY Social History Tobacco Use Smoking status: Never Smokeless tobacco: Never Vaping Use Vaping status: current everyday user Substances: Nicotine Devices: Pre-filled pod Substance Use Topics Alcohol use: Never Drug use: Never PAST SURGICAL HISTORY Procedure Laterality Date SECTION HX 01/2024 CYSTOSCOPY,INSERT URETHRAL STENT EGD LITHROTRIPSY Current Outpatient Medications Medication Sig DEXCOM G6 SENSOR leny Use as directed. Change sensor every 10 days. insulin lispro (HUMALOG KWIKPEN) 100 unit/mL Inject up to 50units SQ daily as directed based on IC ratio and correction factor Norethin Marylu-Eth Estrad-FE (LOESTRIN FE 07/18) 1 mg-20 mcg (21)/75 mg (7) per tablet Take 1 tablet by mouth once daily. fluconazole (DIFLUCAN) 150 mg tablet Take 1 tablet by mouth one time only for 1 dose. alcohol swabs Use as directed to test metered glucose and administer insulin. ONETOUCH VERIO TEST STRIPS test strip Use as directed to test metered glucose 6-8 times per day ONETOUCH VERIO FLEX METER Use as directed to test metered glucose LANTUS SOLOSTAR U-100 INSULIN 100 unit/mL (3 mL) (Patient not taking: Reported on 06/10/2024) OMNIPOD 5 G6 INTRO KIT, GEN 5, crtg as directed. ONETOUCH DELICA PLUS LANCET 33 gauge Use as directed to test metered glucose 6-8 times per day UNIFINE PENTIPS PLUS 32 gauge x 5/32 Use as directed to administer insulin 4-6 times per day. loratadine (CLARITIN) 10 mg tablet Take 10 mg by mouth. (Patient not taking: Reported on 06/10/2024) No current facility-administered medications for this visit. Allergies As of Date: 06/10/2024 (No Known Allergies) Fully Assessed 06/10/2024 SENSITIVE EXAM: Sensitive exam not performed. OBJECTIVE: General Appearance: Well appearing, alert, in no acute distress, well-hydrated, well nourished. Skin: Color normal, Vascularity normal, No evidence of bleeding or bruising, No lesions noted, No edema, Temperature normal, Texture normal, Mobility and turgor normal, Nails normal without clubbing Breasts: deferred Abdomen: deferred PELVIC: deferred BIMANUAL: deferred ASSESSMENT/PLAN: Contraception management Start OCs Referral to adult endocrine for Type 1 DM All contraceptive options were discussed with the patient. R/B/A explained. All questions answered. Pt understands risks including but not limited to increased risk of breast cancer, blood clots and stroke. Counseled for (15) minutes face to face Follow up (prn) Breanne Kimball MD Medical Decision Making: Problems: Moderate: New problem with uncertain prognosis Data: Unique source(s) for external note(s) reviewed: 1 Risk: Moderate: Drug management Medical Decision Making Level: 4 - Moderate MairjaCrissy jimenezHEMANTH 06/10/2024 9:26 AM Signed Control Options control is a way for men and women to prevent . There are many different methods of control. By learning more about the options, you can de (more content not included)... Normal [facility] .Auto Diffon 06-08-2024 Basophil, Absolute 0.0 10 3/mcL Normal 0.0-0.2 [facility] Comment on above: Performed By: #### M DW, CBC, TRINH, ADIFF, GFR, ANEU, BMP ####[place] [address] [place], [place] [address] Basophils/100 WBC (Bld) 0.6 % Normal 0.0-2.5 [facility] Comment on above: Performed By: #### M DW, CBC, TRINH, ADIFF, GFR, ANEU, BMP ####[facility] [place], [place] [address] Eosinophil, Absolute 0.5 10 3/mcL Normal 0.0-0.7 [facility] Comment on above: Performed By: #### M DW, CBC, TRINH, ADIFF, GFR, ANEU, BMP ####[facility] [place], [place] [address] Eosinophils/100 WBC (Bld) 5.6 % Normal 0.0-7.0 [facility] Comment on above: Performed By: #### M DW, CBC, TRINH, ADIFF, GFR, ANEU, BMP ####[facility] [place], [place] [address] Lymphocyte, Absolute 1.8 10 3/mcL Normal 0.9-4.3 [facility] Comment on above: Performed By: #### M DW, CBC, TRINH, ADIFF, GFR, ANEU, BMP ####[facility] [place], [place] [address] Lymphocytes/100 WBC (Bld) 21.8 % Normal 20.0-40.0 [facility] Comment on above: Performed By: #### M DW, CBC, TRINH, ADIFF, GFR, ANEU, BMP ####[place] [address] [place], [place] [address] Monocyte, Absolute 0.6 10 3/mcL Normal 0.1-1.4 [facility] Comment on above: Performed By: #### M DW, CBC, TRINH, ADIFF, GFR, ANEU, BMP ####[place] [address] [place], [place] [address] Monocytes/100 WBC (Bld) 7.3 % Normal 2.0-13.0 [facility] Comment on above: Performed By: #### M DW, CBC, TRINH, ADIFF, GFR, ANEU, BMP ####[address] [place], [place] [address] Neutrophils/100 WBC (Bld) 64.7 % Normal 50.0-75.0 [facility] Comment on above: Performed By: #### M DW, CBC, TRINH, ADIFF, GFR, ANEU, BMP ####[facility] [place], [place] [address] .GFRon 06-08-2024 GFR 90 ml/min/1.73sqm Normal [facility] Comment on above: Result Comment: GFR Population mean for , Non- Americans Ages 20-29 = 116 mL/min/1.73 sq.m. Ages 30-39 = 107 mL/min/1.73 sq.m. Ages 40-49 = 99 mL/min/1.73 sq.m. Ages 50-59 = 93 mL/min/1.73 sq.m. Ages 60-69 = 85 mL/min/1.73 sq.m. Ages 70+ = 75 mL/min/1.73 sq.m. Chronic Kidney Disease: Less than 60 mL/min/1.73 square meters End Stage Renal Disease: Less than 15 mL/min/1.73 square meters Performed By: #### U A, PREGU, UAMICAO #### Mary [address] [address] GFR Non- 74 ml/min/1.73sqm [facility] Comment on above: Result Comment: GFR Population mean for , Non- Americans Ages 20-29 = 116 mL/min/1.73 sq.m. Ages 30-39 = 107 mL/min/1.73 sq.m. Ages 40-49 = 99 mL/min/1.73 sq.m. Ages 50-59 = 93 mL/min/1.73 sq.m. Ages 60-69 = 85 mL/min/1.73 sq.m. Ages 70+ = 75 mL/min/1.73 sq.m. Chronic Kidney Disease: Less than 60 mL/min/1.73 square meters End Stage Renal Disease: Less than 15 mL/min/1.73 square meters Performed By: #### U A, PREGU, UAMICAO #### [address] [address] GFR Non- 86 ml/min/1.73sqm [facility] Comment on above: Result Comment: GFR Population mean for , Non- Americans Ages 20-29 = 116 mL/min/1.73 sq.m. Ages 30-39 = 107 mL/min/1.73 sq.m. Ages 40-49 = 99 mL/min/1.73 sq.m. Ages 50-59 = 93 mL/min/1.73 sq.m. Ages 60-69 = 85 mL/min/1.73 sq.m. Ages 70+ = 75 mL/min/1.73 sq.m. Chronic Kidney Disease: Less than 60 mL/min/1.73 square meters End Stage Renal Disease: Less than 15 mL/min/1.73 square meters Performed By: #### U A, PREGU, UAMICAO #### [address] [address] GFR 104 ml/min/1.73sqm [facility] Comment on above: Result Comment: GFR Population mean for , Non- Americans Ages 20-29 = 116 mL/min/1.73 sq.m. Ages 30-39 = 107 mL/min/1.73 sq.m. Ages 40-49 = 99 mL/min/1.73 sq.m. Ages 50-59 = 93 mL/min/1.73 sq.m. Ages 60-69 = 85 mL/min/1.73 sq.m. Ages 70+ = 75 mL/min/1.73 sq.m. Chronic Kidney Disease: Less than 60 mL/min/1.73 square meters End Stage Renal Disease: Less than 15 mL/min/1.73 square meters Performed By: #### U A, PREGU, UAMICAO #### [place] [address] .MDWon 06-08-2024 Monocyte Distribution Width 18.51 Normal 0.00-20.00 [facility] Comment on above: Result Comment: For ED adult patients suspected of sepsis, MDW<=20.0 does not rule out sepsis or risk of sepsis Performed By: #### M DW, CBC, TRINH, ADIFF, GFR, ANEU, BMP ####[place] [address] .NEUABSon 06-08-2024 Neutrophil, Absolute 5.2 10 3/mcL Normal 2.3-8.1 [facility] Comment on above: Performed By: #### M DW, CBC, TRINH, ADIFF, GFR, ANEU, BMP ####[place] [address] .Urinalysis Microscopic (AO) on 06-08-2024 UA Bacteria Trace Abnormal [facility] Comment on above: Performed By: #### U A, PREGU, UAMICAO #### [place] [address] UA RBC 0-5 Abnormal None Seen [facility] Comment on above: Performed By: #### U A, PREGU, UAMICAO #### [place] [address] UA Squam Epithelial 0-5 Abnormal None Seen [facility] Comment on above: Performed By: #### U A, PREGU, UAMICAO #### [address] [place] [address] UA WBC 10-15 Abnormal None Seen [facility] Comment on above: Performed By: #### JANE Piña UAMICSINDHU #### [address] [address] ACTONon 06-08-2024 Acetone (s) Small Abnormal Negative [facility] Comment on above: Performed By: #### JANE Piña UAMICSINDHU #### [address] [address] BMPon 06-08-2024 BUN/Creatinine Ratio 11 ratio Normal 7-27 [facility] Comment on above: Performed By: #### JANE Piña UAMICSINDHU #### [address] [address] Calcium [Mass/Vol] 9.2 mg/dL Normal 8.4-10.2 [facility] Comment on above: Performed By: #### JANE Piañ UAMICSINDHU #### [address] [address] Chloride [Moles/Vol] 99 mmol/L Normal 98-107 [facility] Comment on above: Performed By: #### JANE Piña UAMICSINDHU #### [address] [address] CO2 [Moles/Vol] 21 mmol/L Low 22-29 [facility] Comment on above: Performed By: #### JANE Piña UAMICSINDHU #### [address] [address] Creatinine [Mass/Vol] 0.97 mg/dL Normal 0.55-1.02 [facility] Comment on above: Result Comment: Test ing performed on Siemens Dimension EXL analyzer using a modified kinetic Shakir technique. Performed By: #### JANE Piña UAMICAO #### [address] [address] Electrolyte Balance 14.0 mEq/L Normal 4.0-15.0 [facility] Comment on above: Performed By: #### U A, PREGU, UAMICAO #### [address] [address] Glucose [Mass/Vol] 388 mg/dL High 70-105 [facility] Comment on above: Performed By: #### U A, PREGU, UAMICAO #### [address] [address] Potassium [Moles/Vol] 3.7 mmol/L Normal 3.5-5.1 [facility] Comment on above: Performed By: #### U A, PREGU, UAMICAO #### [address] [address] Sodium [Moles/Vol] 134 mmol/L Low 136-145 [facility] Comment on above: Performed By: #### U A, PREGU, UAMICAO #### [address] [address] Urea nitrogen [Mass/Vol] 11 mg/dL Normal 7-18 [facility] Comment on above: Performed By: #### U A, PREGU, UAMICAO #### [address] [address] BUN/Creatinine Ratio 12 ratio Normal 7-27 [facility] Comment on above: Performed By: #### U A, PREGU, UAMICAO #### [address] [address] Calcium [Mass/Vol] 9.6 mg/dL Normal 8.4-10.2 [facility] Comment on above: Performed By: #### U A, PREGU, UAMICAO #### [address] [address] Chloride [Moles/Vol] 93 mmol/L Low 98-107 [facility] Comment on above: Performed By: #### U A, PREGU, UAMICAO #### [address] [address] CO2 [Moles/Vol] 24 mmol/L Normal 22-29 [facility] Comment on above: Performed By: #### JANE Piña UAMICAO #### [address] [address] Creatinine [Mass/Vol] 0.85 mg/dL Normal 0.55-1.02 [facility] Comment on above: Result Comment: Test ing performed on Siemens Dimension EXL analyzer using a modified kinetic Shakir technique. Performed By: #### JANE Piña UAMICAO #### [address] [address] Electrolyte Balance 13.0 mEq/L Normal 4.0-15.0 [facility] Comment on above: Performed By: #### JANE Piña UAMICAO #### [address] [address] Glucose [Mass/Vol] 527 mg/dL Critically abnormal 70-105 [facility] Comment on above: Performed By: #### JANE Piña UAMICAO #### [address] [address] Potassium [Moles/Vol] 4.1 mmol/L Normal 3.5-5.1 [facility] Comment on above: Performed By: #### JANE Piña UAMICAO #### [address] [address] Sodium [Moles/Vol] 130 mmol/L Low 136-145 [facility] Comment on above: Performed By: #### JANE Piña UAMICAO #### [address] [address] Urea nitrogen [Mass/Vol] 10 mg/dL Normal 7-18 [facility] Comment on above: Performed By: #### JANE Piña UAMICAO #### [address] [address] CBCon 06-08-2024 Erythrocyte distribution width (RBC) [Ratio] 14.5 % Normal 11.5-15.5 [facility] Comment on above: Performed By: #### M DW, CBC, TRINH, ADIFF, GFR, ANEU, BMP ####[place] [address] [place], [place] [address] Hematocrit (Bld) [Volume fraction] 40.7 % Normal 34.0-46.0 [facility] Comment on above: Performed By: #### M DW, CBC, TRINH, ADIFF, GFR, ANEU, BMP ####[place] [address] [place], [place] [address] Hgb 13.5 G/dL Normal 12.0-16.0 [facility] Comment on above: Performed By: #### M DW, CBC, TRINH, ADIFF, GFR, ANEU, BMP ####[place] [address] [place], [place] [address] MCH (RBC) [Entitic mass] 28.5 pg Normal 27.0-33.0 [facility] Comment on above: Performed By: #### M DW, CBC, TRINH, ADIFF, GFR, ANEU, BMP ####[place] [address] [place], [place] [address] MCHC 33.1 G/dL Normal 32.0-36.0 [facility] Comment on above: Performed By: #### M DW, CBC, TRINH, ADIFF, GFR, ANEU, BMP ####[place] [address] [place], [place] [address] MCV (RBC) [Entitic vol] 86.2 fL Normal 80.0-99.0 [facility] Comment on above: Performed By: #### M DW, CBC, TRINH, ADIFF, GFR, ANEU, BMP ####[place] [address] [place], [place] [address] Platelet 234 10 3/mcL Normal 150-450 [facility] Comment on above: Performed By: #### M DW, CBC, TRINH, ADIFF, GFR, ANEU, BMP ####[place] [address] [place], [place] [address] Platelet mean volume (Bld) [Entitic vol] 9.2 fL Normal 6.6-10.5 [facility] Comment on above: Performed By: #### M DW, CBC, TRINH, ADIFF, GFR, ANEU, BMP ####[place] [address] [place], [place] [address] RBC 4.72 10 6/mcL Normal 4.10-5.30 [facility] Comment on above: Performed By: #### M DW, CBC, TRINH, ADIFF, GFR, ANEU, BMP ####[place] [address] [place] [address] WBC 8.0 10 3/mcL Normal 4.5-10.8 [facility] Comment on above: Performed By: #### M DW, CBC, TRINH, ADIFF, GFR, ANEU, BMP ####[place] [address] [place] [address] PREGUon 06-08-2024 HCG ( test) Ql (U) Negative Normal [facility] Comment on above: Performed By: #### U A, PREGU, UAMICAO #### [place] [address] test (u) int Not detected Invalid Interpretation Code [facility] Comment on above: Performed By: #### U A, PREGU, UAMICAO #### [place] [address] UAon 06-08-2024 Color (U) Yellow Normal [facility] Comment on above: Performed By: #### U A, PREGU, UAMICAO #### [place] [address] Glucose (U) [Mass/Vol] mg/dL Abnormal Negative [facility] Comment on above: Performed By: #### U A, PREGU, UAMICAO #### [address] [address] Ketones Ql (U) 40 mg/dL Abnormal Negative [facility] Comment on above: Performed By: #### U A, PREGU, UAMICAO #### [place] [address] UA Appear Slightly Cloudy Abnormal Clear [facility] Comment on above: Performed By: #### U A, PREGU, UAMICAO #### [place] [address] UA Blood Negative Normal Negative [facility] Comment on above: Performed By: #### U A, PREGU, UAMICAO #### [place] [address] UA Leuk Est Trace Abnormal Negative [facility] Comment on above: Performed By: #### U A, PREGU, UAMICAO #### [place] [address] UA Nitrite Negative Normal Negative [facility] Comment on above: Performed By: #### U A, PREGU, UAMICAO #### [place] [address] UA pH 6.0 Normal 5.0 - 8.0 [facility] Comment on above: Performed By: #### U A, PREGU, UAMICAO #### [place] [address] UA Protein Negative Normal Negative [facility] Comment on above: Performed By: #### U A, PREGU, UAMICAO #### [place] [address] UA Spec Grav 1.015 Normal 1.015-1.025 [facility] Comment on above: Performed By: #### U A, PREGU, UAMICAO #### [place] [address] UA Specimen Type Clean Catch Normal [facility] Comment on above: Performed By: #### U A, PREGU, UAMICAO #### [place] [address] UA Urobilinogen 0.2 E.U./dL Normal 0.2-1.0 [facility] Comment on above: Performed By: #### U A, PREGU, UAMICAO #### [place] [address] Urobilinogen (U) [Mass/Vol] Negative Normal Negative [facility] Comment on above: Performed By: #### JANE Piña UAMICAO #### [address] [address] VBGon 06-08-2024 BE Venous -3.4 mmol/L Low -3.0-3.0 [facility] Comment on above: Performed By: #### COLLEEN PiñaU UAMICAO #### [address] [address] CO2 [Moles/Vol] 21.5 mmol/L Low 22.0-32.0 [facility] Comment on above: Performed By: #### JANE Piña UAMICAO #### [address] [address] HCO3 (Bld) [Moles/Vol] 20.5 mmol/L Low 21.0-30.0 [facility] Comment on above: Performed By: #### COLLEEN PiñaU UAMICAO #### [address] [address] Oxygen saturation in Blood 99.0 % High 70.0-75.0 [facility] Comment on above: Performed By: #### Lita Stevens PREGU UAMICAO #### [address] [address] pCO2 Jimmy 33.5 mmHg Low 41.0-51.0 [facility] Comment on above: Performed By: #### U Hilda PREGU UAMICAO #### [address] [address] pH Venous 7.404 Normal 7.380-7.460 [facility] Comment on above: Performed By: #### U Hilda PREGU UAMICAO #### [address] [address] pO2 Jimmy 135.8 mmHg High 35.0-40.0 [facility] Comment on above: Performed By: #### U Hilda PREGU UAMICAO #### [address] [address] XR CHEST 1 VIEWon 06-08-2024 XR CHEST 1 VIEW ORIGINAL EXAMINATION: ONE XRAY VIEW OF THE CHEST06/08/2024 2:59 pm CHEST ONE VIEW AP/PA COMPARISON: None available time of interpretation. HISTORY: ORDERING SYSTEM PROVIDED HISTORY: Reason for Exam: Diabetes FINDINGS: Heart size and vascularity are within normal limits. The lungs are clear of focal consolidation. No effusion, pneumothorax, or acute osseous abnormality. IMPRESSION: No radiographic evidence of acute cardiopulmonary process. Interpreted by: Sheila Valenzuela MD Preliminary Report By: Sheila Valenzuela MD Electronically signed By Sheila Valenzuela MD Dictated Date: 06/08/2024 3:29:39 PM Prelim Date: 06/08/2024 3:29:53 PM Sign Date: 06/08/2024 3:29:53 PM Ordering Provider: FELIPE Barragan [facility] .Urinalysis Microscopic (AO) on 05-12-2024 UA Bacteria 1+ /hpf Abnormal [facility] Comment on above: Performed By: #### U A, PREGU, UAMICAO #### [address] [address] UA Mucous 1+ /hpf Normal [facility] Comment on above: Performed By: #### U A, PREGU, UAMICAO #### [address] [address] UA RBC 0-5 Abnormal None Seen [facility] Comment on above: Performed By: #### U A, PREGU, UAMICAO #### [address] [address] UA Squam Epithelial LOADED Abnormal None Seen [facility] Comment on above: Performed By: #### U A, PREGU, UAMICAO #### [place] [address] UA WBC 15-25 Abnormal None Seen [facility] Comment on above: Performed By: #### U A, PREGU, UAMICAO #### [place] [address] LABORATORYOrdered By: Sha Maharaj on 05-12-2024 Appearance (U) Slightly Cloudy *ABN* (05/12/24 12:45 PM) Invalid Interpretation Code Clear AO Auto Urine SS Bacteria LM.HPF (Urine sed) [#/Area] 1 /[HPF] Invalid Interpretation Code AO Auto Urine SS Bilirubin Ql (U) Negative (05/12/24 12:45 PM) Normal Negative AO Auto Urine SS Color (U) Yellow (05/12/24 12:45 PM) Normal AO Auto Urine SS Glucose Test strip (U) [Mass/Vol] 100 mg/dL Invalid Interpretation Code Negative AO Auto Urine SS HCG ( test) Ql Negative (05/12/24 12:45 PM) Normal AO Manual Urine SS Hemoglobin Auto test strip (U) [Mass/Vol] Trace *ABN* (05/12/24 12:45 PM) Invalid Interpretation Code Negative AO Auto Urine SS Ketones Ql (U) Negative Normal Negative AO Auto Urine SS test (u) int Not detected Invalid Interpretation Code AO Manual Urine SS UA Leuk Est Moderate *ABN* (05/12/24 12:45 PM) Invalid Interpretation Code Negative AO Auto Urine SS UA Mucous 1+ /HPF Normal AO Auto Urine SS UA Nitrite Negative (05/12/24 12:45 PM) Normal Negative AO Auto Urine SS UA pH 7.0 (05/12/24 12:45 PM) Normal 5.0 - 8.0 AO Auto Urine SS UA Protein Negative Normal Negative AO Auto Urine SS UA RBC 0-5 /HPF Invalid Interpretation Code None Seen AO Auto Urine SS UA Spec Grav 1.025 (05/12/24 12:45 PM) Normal 1.015-1.025 AO Auto Urine SS UA Specimen Type Clean Catch (05/12/24 12:45 PM) Normal AO Auto Urine SS UA Squam Epithelial LOADED /HPF Invalid Interpretation Code None Seen AO Auto Urine SS UA Urobilinogen 0.2 E.U./dL Normal 0.2-1.0 AO Auto Urine SS WBC LM.HPF (Urine sed) [#/Area] 15-25 /HPF Invalid Interpretation Code None Seen AO Auto Urine SS PREGUon 05-12-2024 HCG ( test) Ql (U) Negative Normal [facility] Comment on above: Performed By: #### U A, PREGU, UAMICAO #### [place] [address] test (u) int Not detected Invalid Interpretation Code [facility] Comment on above: Performed By: #### U A, PREGU, UAMICAO #### [place] [address] UAon 05-12-2024 Color (U) Yellow Normal [facility] Comment on above: Performed By: #### U A, PREGU, UAMICAO #### [place] [address] Glucose (U) [Mass/Vol] 100 mg/dL Abnormal Negative [facility] Comment on above: Performed By: #### U A, PREGU, UAMICAO #### [place] [address] Ketones Ql (U) Negative Normal Negative [facility] Comment on above: Performed By: #### U A, PREGU, UAMICAO #### [place] [address] UA Appear Slightly Cloudy Abnormal Clear [facility] Comment on above: Performed By: #### U A, PREGU, UAMICAO #### [place] [address] UA Blood Trace Abnormal Negative [facility] Comment on above: Performed By: #### U A, PREGU, UAMICAO #### [place] [address] UA Leuk Est Moderate Abnormal Negative [facility] Comment on above: Performed By: #### U A, PREGU, UAMICAO #### [place] [address] UA Nitrite Negative Normal Negative [facility] Comment on above: Performed By: #### U A, PREGU, UAMICAO #### [place] [address] UA pH 7.0 Normal 5.0 - 8.0 [facility] Comment on above: Performed By: #### U A, PREGU, UAMICAO #### [address] [address] UA Protein Negative Normal Negative [facility] Comment on above: Performed By: #### U A PREGU UAMICAO #### [place] [id number] [place], [place] [address] UA Spec Grav 1.025 Normal 1.015-1.025 [facility] Comment on above: Performed By: #### U A PREGU UAMICAO #### [address] [address] UA Specimen Type Clean Catch Normal [facility] Comment on above: Performed By: #### U A PREGU UAMICAO #### [address] [address] UA Urobilinogen 0.2 E.U./dL Normal 0.2-1.0 [facility] Comment on above: Performed By: #### U A PREGU UAMICAO #### [address] [address] Urobilinogen (U) [Mass/Vol] Negative Normal Negative [facility] Comment on above: Performed By: #### U A PREGU UAMICAO #### [address] [address] MANOLOOVon 05-05-2024 CNOV Office Visit ([facility] ) CATALINA CAPELLAN ([id number]) 3 F Date Time Provider Department 05/05/24 2:15 PM JT GÓMEZ [facility] During your visit today, we recorded the following information about you: Temperature Pulse Respiration Blood pressure 97.4 degrees 95/minute 20/minute 122/88 Weight Last Period 71.9 kg 04/27/24 Jt Gómez MD 05/05/2024 2:20 PM Signed Patient presents with: Sore Throat: Body aches, headache x 3 days HPI: Feeling sick for 3 days Positive symptoms: Sore throat, Body Aches, Headache, some Cough, some Rhinorrhea, Negative symptoms: Shortness of breath, Vomiting, Diarrhea, OTC: none Delivered baby 02/18/24 by . She is not breast feeding. MEDICATIONS: Current Outpatient Medications Medication Sig DEXCOM G6 SENSOR leny Use as directed. Change sensor every 10 days. alcohol swabs Use as directed to test metered glucose and administer insulin. ONETOUCH VERIO TEST STRIPS test strip Use as directed to test metered glucose 6-8 times per day ONETOUCH VERIO FLEX METER Use as directed to test metered glucose LANTUS SOLOSTAR U-100 INSULIN 100 unit/mL (3 mL) insulin lispro (HUMALOG KWIKPEN) 100 unit/mL Inject up to 50units SQ daily as directed based on IC ratio and correction factor OMNIPOD 5 G6 INTRO KIT, GEN 5, crtg as directed. ONETOUCH DELICA PLUS LANCET 33 gauge Use as directed to test metered glucose 6-8 times per day UNIFINE PENTIPS PLUS 32 gauge x 5/32 Use as directed to administer insulin 4-6 times per day. loratadine (CLARITIN) 10 mg tablet Take 10 mg by mouth. No current facility-administered medications for this visit. ALLERGIES: ALLERGIES No Known Allergies VITALS: BP 122/88 Pulse 95 Temp 36.3 ?C (97.4 ?F) Resp 20 Wt 71.9 kg (158 lb 8.2 oz) LMP 04/27/2024 (Approximate) SpO2 96% No PHYSICAL EXAM: GEN: mildly ill appearing HEENT: PERRL, EOMI, conjunctiva clear Ears: canals clear. TMs without erythema, bulge, or effusion Sinuses: non-tender frontal sinus, non-tender maxillary sinuses Throat: moist mucous membranes, mild erythema, no exudate Neck: supple, no thyromegaly, no lymphadenopathy HEART: regular rate and rhythm, no murmurs LUNGS: clear to auscultation, no wheezes or crackles, no increased WOB ASSESSMENT/PLAN: 1. Sore throat - ICD9: 462, ICD10: J02.9 - STREP A MOLECULAR (POC) - negative. - suspect viral URI. She will consider doing a home COVID test. - Discussed supportive care treatment with rest, cold medicine, and analgesia. Jt Gómez MD Allergies As of Date: 05/05/2024 (No Known Allergies) Date Reviewed: 05/05/2024 Reviewed by: Caty Willoughby LPN - Fully Assessed Reason for Visit: Sore Throat [200] Cmt: Body aches, headache x 3 days Primary Visit Diagnosis:Sore throat [J02.9] Order(s):STREP A MOLECULAR (POC) [1466261] Order #: [id number]. #:[id number] Prescriptions as of 05/05/2024 - DEXCOM G6 SENSOR leny Use as directed. Change sensor every 10 days. - alcohol swabs Use as directed to test metered glucose and administer insulin. - ONETOUCH VERIO TEST STRIPS test strip Use as directed to test metered glucose 6-8 times per day - ONETOUCH VERIO FLEX METER Use as directed to test metered glucose - LANTUS SOLOSTAR U-100 INSULIN 100 unit/mL (3 mL) - insulin lispro (HUMALOG KWIKPEN) 100 unit/mL Inject up to 50units SQ daily as directed based on IC ratio and correction factor - OMNIPOD 5 G6 INTRO KIT, GEN 5, crtg as directed. - ONETOUCH DELICA PLUS LANCET 33 gauge Use as directed to test metered glucose 6-8 times per day - UNIFINE PENTIPS PLUS 32 gauge x 5/32 Use as directed to administer insulin 4-6 times per day. - loratadine (CLARITIN) 10 mg tablet Take 10 mg by mouth. Problem List As Of Date 05/05/2024 Noted Resolved Constipation during in first trimeste*02/12/2010 Abdominal pain [R10.9] 02/12/2010 Sprain of ligament of right ankle [S93.401A] 04/10/2022 08/13/2023 9 weeks gestation of [Z3A.09] 08/13/2023 Pre-existing type 1 diabetes mellitus in pregna*08/13/2023 Nausea and vomiting during [O21.9] 08/13/2023 Heart palpitations [R00.2] 08/13/2023 Shortness of breath [R06.02] 08/13/2023 Heartburn during in first trimester [*08/13/2023 Family history of Down syndrome [Z82.79] 08/13/2023 Asymptomatic bacteriuria during [O99.*08/13/2023 Subchorionic hematoma in first trimester [O41.8*08/13/2023 Vaginal discharge during in first tri*08/13/2023 Kidney stone complicating , first trim*08/13/2023 UTI (urinary tract infection) during ,*08/15/2023 Medications Discontinued During This Encounter Prescriptions - ampicillin (PRINCIPEN) 500 mg capsule (Discontinued) Reported on 10/20/2023 - Cetirizine (ZYRTEC) 10 mg cap (Discontinued) Take by mouth. - (more content not included)... Normal [facility] STREP A MOLECULAR (POC)on Procedural Control Valid [facility] Strep A (POCT) Negative Negative [facility] Progress Noteon 03-28-2024 [employer] Authentication Interface Message Text Normal [facility] Progress Noteon 03-07-2024 [employer] Authentication Interface Message Text Normal [facility] Wound Cultureon 03-06-2024 WC #1 Clinical correlat ion necessary, Possible skin contamination. #2 Possible skin contamination, further Identification and sensitivity will be performed only by physician's request. Staphylococcus simulans Amount Growth Rare Coag Negative Staph Amount Growth Very Rare Staphylococcus simulans: REACTION cefOXitin Susc Islt NEG Clindamycin Islt CHERELLE R Clindamycin.induced Susc Islt POS Erythromycin Islt CHERELLE >=8 R Gentamicin Islt CHERELLE <=0.5 S Oxacillin Susc Islt <=0.25 S Tetracycline Islt CHERELLE <=1 S Vancomycin Islt CHERELLE <=0.5 S Normal [facility] Comment on above: Performed By: #### M 100.2000, M100.3000 #### [facility] [address] [place], [place], [id number] Emergency Department Summary on 03-05-2024 Emergency Department Summary [facility] Medical Records Department [address] [place] [address] Emergency Department Summary 03/05/24 MR#: [id number] Acct: [id number] Name: CATALINA CAPELLAN Rep #: [id number] : 2005 18 From: Jd Barrios MD PCP: Dr. Dian Velez MD Status:REG ER Location: ED HPI History of Present Illness Chief Complaint: Wound Check Informant: patient and spouse/S.O. Onset/Context/Timing Onset: Days Context: Gradual Onset Timing: Continuous Current Severity: Mild Maximum Severity: Mild Narrative Narrative: 18-year-old female status post at [facility] 13 days ago. This was her first and . She has had some wound separation and a seroma. Was seen in the emergency department 2 days ago on started on Bactrim. She is appointment to see maternal- medicine physicians this coming week. Prior similar symptoms: Yes Recent Illness/Hospitalization : Yes [facility] Medical History POTS (postural orthostatic tachycardia syndrome) Type 1 diabetes mellitus Anxiety Home Medications ???Medication ???Instructions ???Recorded ???Last Taken ???Type aspirin 81 mg tablet,delayed 81 mg PO DAILY 12/09/23 Unknown History release glucagon 3 mg/actuation nasal 3 mg intranasal DAILY PRN 12/09/23 Unknown History spray (Baqsimi) hypoglycemia insulin lispro 100 unit/mL 0 - 50 unit subcut DAILY 12/09/23 Unknown History subcutaneous pen insulin lispro 100 unit/mL 0 - 67 unit subcut UD 12/09/23 Unknown History subcutaneous solution (Humalog U-100 Insulin) insulin pump cart,automated,BT 01/28/24 Unknown History (Omnipod 5 G6 Pods (Gen 5) subcutaneous cartridge) ferrous sulfate 325 mg (65 mg 325 mg PO DAILY 03/03/24 Unknown History iron) tablet (FeroSul) ibuprofen 600 mg tablet 600 mg PO Q6H PRN PRN fever or pain 03/03/24 Unknown History nifedipine 30 mg tablet,extended 60 mg PO QHS 03/03/24 Unknown History release 24 hr oxycodone 5 mg tablet 5 mg PO Q8H PRN pain 2 days #5 tabs 03/03/24 Unknown Rx sulfamethoxazole 800 1 tab PO BID 7 days #14 tabs 03/03/24 Unknown Rx mg-trimethoprim 160 mg tablet (Bactrim DS) Allergy/AdvReac Type Severity Reaction Status Date / Time No Known Allergies Allergy Verified 03/03/24 11:31 Social History Smoking Status: Never smoker substance use type: does not use ROS ROS ED ROS Narrative Denies any recent illness. Constitutional Constitutional ED: Denies fever(s) Eyes Eyes: Denies blurry vision ENT ENT ED: Denies ear pain Cardiovascular Cardiovascular: Denies chest pain Respiratory/Chest Respiratory/Chest: Denies cough Gastrointestinal Gastrointestinal: Reports other Details: Pain at the incision site. ; Denies abdominal pain Genitourinary Genitourinary ED: Denies dysuria Musculoskeletal Musculoskeletal: Denies arthralgias Integumentary Denies abscess Neurologic Neurologic: Denies headache(s) Psychiatric Psychiatric: Denies anxiety Endocrine Endocrinology: Denies cold intolerance Hematologic/Lymphatic Hematologic/Lymphatic: Reports none Allergic/Immunologic Allergic/Immunologic ED: Denies mouth swelling or tongue swelling EXAM Physical Exam Narrative Exam Narrative: Well-appearing 18-year-old female. Vital signs are stable afebrile. H EENT exam unremarkable. Lungs clear. Heart regular rhythm. Abdomen is soft. She has a low-lying horizontal Pfannenstiel incision. There is minimal drainage currently. It is serous. Currently there is no bleeding. There is no cellulitis. There is no pus. She has normal tenderness around the wound. She has a minor wound separation on the left hand third of the wound. Steri-Strips are in place. Moving all 4 extremities. Nontender no edema. She is awake and alert. Const Vital Signs: 03/05/24 11:15 Temperature 96.9 F L Temperature Source Temporal Pulse Rate 105 H Respiratory Rate 16 Blood Pressure 115/76 Blood Pressure Mean 89 Pulse Ox 98 Oxygen Delivery Method Room Air Positive well nourished and well developed; Negative for obese, cachectic, contractures or unkempt General Appearance ED: well developed and NAD; Negative for unkempt, cachectic, contractures, cyanotic or diaphoretic Nutritional Appearance: Negative for cachectic or obese HEENT Reports moist mucous membranes Negative for trauma or tenderness Eyes PERRL and EOMs intact bilaterally General Eye ED: Negative for pale conjunctiva or scleral icterus Neck no lymphadenopathy, supple and no JVD General: Negative for tenderness Chest Wall inspection of chest normal and palpation of chest normal Resp normal respiratory effort and clear to auscultation (more content not included)... Normal [facility] Gram Stainon 03-04-2024 GS Gram Stain 2+ White Blood Cells Rare Gram positive rods Rare Gram positive cocci No Epithelial cells Normal [facility] Comment on above: Performed By: #### M 100.2000, M100.3000 #### [facility] [address] [facility]. [place], [place], [address] Abdomen/Pelvis W IV Cont ONL Yon 03-03-2024 Abdomen/Pelvis W IV Cont ONLY [facility] Services [address] [place], [place] [address] Abdomen/Pelvis W IV Cont ONLY MR#: [id number] Acct: [id number] Name: CATALINA CAPELLAN Rep #: [id number] : 2005 F 18 From: Armando curran MD PCP: Dr. Dian Velez MD Status: REG ER Study: Abdomen/Pelvis W IV Cont ONLY Date of Exam: Exam# [id number] Ordering Dr: [place] [id number] STUDY: CT ABDOMEN AND PELVIS WITH CONTRAST REASON FOR EXAM: Female, 18 years old. Bloody discharge from site. RADIATION DOSAGE (If Supplied By Facility): CTDIvol = ( 11.6 ) mGy, DLP = ( 705.45 ) mGycm TECHNIQUE: Transaxial images were obtained from the dome of the diaphragm to the symphysis pubis without oral contrast. IV 100mL Isovue-370 was administered. Sagittal and coronal images were reconstructed. Individualized dose optimization techniques were used for this CT. COMPARISON: Comparison is made with prior study dated February 28, 2023. FINDINGS: The visualized lung bases are unremarkable. The visualized portions of the heart are within normal limits. Normal liver. Normal gallbladder and extrahepatic biliary system. Normal spleen. Normal pancreas. Normal bilateral adrenal glands. Normal right kidney. Normal left kidney. Normal visualized stomach. Normal small intestine. Normal colon. The appendix is visualized and appears normal. Normal abdominal aorta. Normal inferior vena cava. Normal retroperitoneum. Normal urinary bladder. Heterogeneous enlargement of the uterus in keeping with recent delivery. Postoperative changes are seen in the subcutaneous tissues underlying the lower anterior abdominal wall incision site. Tiny air bubbles are seen within the soft tissues in keeping with recent surgery. There is evidence of a 1.2 cm x 1.6 cm x 2.3 cm tiny fluid collection in the right side of the incision. There is also evidence of a increased markings in the subcutaneous fat. Normal osseous structures. CT/Abdomen/Pelvis W IV Cont ONLY IMPRESSION: Status post lower anterior abdominal wall with evidence of a tiny fluid collection along the right side of the incision with the overlying skin thickening and increased markings in the subcutaneous fat with tiny air bubbles. Heterogeneous enlargement of the uterus in keeping with recent delivery. Electronically Signed: Armando Nair MD at 13:23 EDT Reading Location ID and State: [address] [place] [address] , Service support , CC: Dr. Anjelica Smith DO; Dr. Dian Velez MD 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Signed Normal [facility] CBC W/Diff, Automatedon PLT MORPH LARGE Normal [facility] Comment on above: Performed By: #### L 100.0100, L500.4050 #### [facility] [address] [place], [place], [id number] Comprehensive Metabolic Prof ilon 03-03-2024 Albumin [Mass/Vol] 2.8 g/dL Low 3.2-5.0 [facility] Comment on above: Performed By: #### L 100.0100, L500.4050 #### [facility] [address] [place], [address] Albumin/Globulin [Mass ratio] 0.5 {ratio} Low 0.9-2.4 [facility] Comment on above: Performed By: #### L 100.0100, L500.4050 #### [facility] [address] [place], [address] ALK P 149 U/L High 45-117 [facility] Comment on above: Performed By: #### L 100.0100, L500.4050 #### [facility] [address] [place], [address] ALT [Catalytic activity/Vol] 21 U/L Normal 13-56 [facility] Comment on above: Performed By: #### L 100.0100, L500.4050 #### [facility] [address] [place], [address] AST [Catalytic activity/Vol] 20 U/L Normal 15-37 [facility] Comment on above: Performed By: #### L 100.0100, L500.4050 #### [facility] [address] [place], [address] Bilirubin [Mass/Vol] 0.80 mg/dL Normal 0.20-1.00 [facility] Comment on above: Result Comment: For patients on eltrombopag therapy, use of Dimension Fenton TBIL is not recommended. Performed By: #### L 100.0100, L500.4050 #### [facility] [address] [place], [address] BUN/CRE 34.6 RATIO High 10-20 [facility] Comment on above: Performed By: #### L 100.0100, L500.4050 #### [facility] [address] [place], [address] CA,Total 9.9 mg/dL Normal 8.5-10.1 [facility] Comment on above: Performed By: #### L 100.0100, L500.4050 #### [facility] [address] [place], [address] Chloride [Moles/Vol] 108 mmol/L High 98-107 [facility] Comment on above: Performed By: #### L 100.0100, L500.4050 #### [facility] [address] [place], [address] CO2 [Moles/Vol] 23.0 mmol/L Normal 21.0-32.0 [facility] Comment on above: Performed By: #### L 100.0100, L500.4050 #### [facility] [address] [place], [address] Creatinine [Mass/Vol] 0.49 mg/dL Low 0.55-1.02 [facility] Comment on above: Result Comment: The validity of the calculated GFR GFRAA in patients over 70 years has not been determined. Clinical correlation is essential. Performed By: #### L 100.0100, L500.4050 #### [facility] [address] [place], [address] EST GFR - AA 208 mL/min Normal >60 [facility] Comment on above: Result Comment: Afri can Nigerian GFR Calc Performed By: #### L 100.0100, L500.4050 #### [facility] [address] [place], [address] GAP 8 Normal 5-15 [facility] Comment on above: Performed By: #### L 100.0100, L500.4050 #### [facility] [address] [place], [address] GFR/1.73 sq M.predicted among non-blacks MDRD (S/P/Bld) [Vol rate/Area] 172 mL/min/{1.73_m2} Normal >60 [facility] Comment on above: Result Comment: Non- GFR Calc Performed By: #### L 100.0100, L500.4050 #### [facility] [address] [place], [address] Globulin (S) [Mass/Vol] 5.2 g/dL High 2.2-4.2 [facility] Comment on above: Performed By: #### L 100.0100, L500.4050 #### [facility] [address] [place], [address] Glucose [Mass/Vol] 102 mg/dL Normal 74-106 [facility] Comment on above: Result Comment: Fast ing Glucose result from 100 to 125 mg/dL suggests IMPAIRED HOMEOSTASIS per A.D.A. criteria. Performed By: #### L 100.0100, L500.4050 #### [facility] [address] [place], [address] Potassium [Moles/Vol] 3.4 mmol/L Low 3.5-5.1 [facility] Comment on above: Performed By: #### L 100.0100, L500.4050 #### [facility] [address] [place], [address] Sodium [Moles/Vol] 139 mmol/L Normal 136-145 [facility] Comment on above: Performed By: #### L 100.0100, L500.4050 #### [facility] [address] [place], [address] T PROT 8.0 g/dL Normal 6.4-8.2 [facility] Comment on above: Performed By: #### L 100.0100, L500.4050 #### [facility] [address] [place], [address] Urea nitrogen [Mass/Vol] 17 mg/dL Normal 7-18 [facility] Comment on above: Performed By: #### L 100.0100, L500.4050 #### [facility] [address] [place], [address] Emergency Department Summary on 03-03-2024 Emergency Department Summary [facility] Medical Records Department [address] [place] [address] Emergency Department Summary 03/03/24 MR#: [id number] Acct: [id number] Name: CATALINA CAPELLAN Rep #: [id number] : 2005 18 From: Anjelica Smith DO PCP: Dr. Dian Velez MD Status:DEP ER Location: ED HPI History of Present Illness Chief Complaint: Wound Check Informant: patient Narrative Narrative: Patient is a 18-year-old female with history of insulin-dependent diabetes mellitus who is 11 days status post presenting for bleeding and draining from incision site. Patient states she delivered at [facility] and followed with maternal medicine here at [facility]. She does not know the person who actually did her . She notes that she had a fever 2 days ago but had none since. She denies any abnormal vaginal bleeding (states is expected amount) or discharge. Denies any urinary symptoms. Denies any nausea, vomiting, lightheadedness or dizziness. Is doing a mixture of pumping and formula supplementation. Her significant other called 911 because of drainage from her incision site today. She knows she has some tenderness at the area as well. No other complaints or concerns at this time. [facility] Medical History POTS (postural orthostatic tachycardia syndrome) Type 1 diabetes mellitus Anxiety Home Medications ???Medication ???Instructions ???Recorded ???Last Taken ???Type aspirin 81 mg tablet,delayed 81 mg PO DAILY 12/09/23 Unknown History release glucagon 3 mg/actuation nasal 3 mg intranasal DAILY PRN 12/09/23 Unknown History spray (Baqsimi) hypoglycemia insulin lispro 100 unit/mL 0 - 50 unit subcut DAILY 12/09/23 Unknown History subcutaneous pen insulin lispro 100 unit/mL 0 - 67 unit subcut UD 12/09/23 Unknown History subcutaneous solution (Humalog U-100 Insulin) insulin pump cart,automated,BT 01/28/24 Unknown History (Omnipod 5 G6 Pods (Gen 5) subcutaneous cartridge) ferrous sulfate 325 mg (65 mg 325 mg PO DAILY 03/03/24 Unknown History iron) tablet (FeroSul) ibuprofen 600 mg tablet 600 mg PO Q6H PRN PRN fever or pain 03/03/24 Unknown History nifedipine 30 mg tablet,extended 60 mg PO QHS 03/03/24 Unknown History release 24 hr oxycodone 5 mg tablet 5 mg PO Q8H PRN pain 2 days #5 tabs 03/03/24 Unknown Rx sulfamethoxazole 800 1 tab PO BID 7 days #14 tabs 03/03/24 Unknown Rx mg-trimethoprim 160 mg tablet (Bactrim DS) Allergy/AdvReac Type Severity Reaction Status Date / Time No Known Allergies Allergy Verified 03/03/24 11:31 Social History Smoking Status: Never smoker substance use type: does not use ROS ROS ED Constitutional Constitutional ED: Reports fever(s); Denies chills Gastrointestinal Gastrointestinal: Reports abdominal pain; Denies nausea or vomiting Genitourinary Genitourinary ED: Denies dysuria or hematuria Musculoskeletal Musculoskeletal: Denies arthralgias or myalgias Integumentary Reports other Details: surgical wound with drainage - C Section Neurologic Neurologic: Denies headache(s) Hematologic/Lymphatic Hematologic/Lymphatic: Denies easy bleeding or easy bruising EXAM Physical Exam Const Vital Signs: 03/03/24 11:32 03/03/24 13:14 Temperature 98.5 F 98.2 F Temperature Source Oral Oral Pulse Rate 94 86 Respiratory Rate 16 18 Blood Pressure 120/77 118/77 Blood Pressure Mean 91 90 Pulse Ox 99 99 Oxygen Delivery Method Room Air Room Air Positive well nourished and well developed General Appearance ED: well developed and NAD HEENT Reports moist mucous membranes Eyes PERRL Neck supple Chest Wall inspection of chest normal Resp normal respiratory effort Cardio regular rate and regular rhythm GI non-distended GI Narrative: Fundus is below the level of the umbilicus. No significant tenderness of the upper abdomen or lower abdomen but does have tenderness to palpation of her pelvic area over her incision. Extremity normal to inspection General Extremety ED: Negative for edema General Extremity: Negative for edema Neuro oriented x3 Sensorium / Orientation: alert Motor Exam: Negative for general weakness Psych mental status grossly normal Skin Skin Narrative: Low transverse surgical incision consistent with recent . Patient has persistent serosanguineous drainage coming from the incision just to the left of midline. There are some mild associated tenderness to palpation and some mild erythema of the wound edges. Steri-Strips are still in place. No obvious dehiscence appreciated. No significant fluid collection/fluctuance appreciated elbow patient does have some suprapub (more content not included)... Normal [facility] - Chemistry and C hemistry - challengeon 02-24-2024 Glucose [Mass/Vol] 86 mg/dL 70 - 100 mg/dL [facility] No Panel Informationon 02-23 Interpretation and review of laboratory results Normal [facility] CBC panel Auto (Bld)on 02-22 Erythrocyte distribution width (RBC) [Ratio] 23.2 % High 11.5 - 15.0 % [facility] Hematocrit (Bld) [Volume fraction] 29.4 % Low 35.0 - 47.0 % [facility] Hemoglobin (Bld) [Mass/Vol] 9.0 g/dL Low 11.7 - 16.0 g/dL [facility] Interpretation and review of laboratory results Abnormal [facility] MCH (RBC) [Entitic mass] 25.1 pg Low 26.0 - 34.0 pg [facility] MCHC (RBC) [Mass/Vol] 30.6 % 30.5 - 36.0 % [facility] MCV (RBC) [Entitic vol] 81.9 fL 77.0 - 99.0 fL [facility] Platelet mean volume (Bld) [Entitic vol] 12.5 fL 9.0 - 12.7 fL [facility] Platelets (Bld) [#/Vol] 111 10*3/uL Low 140 - 440 10*3/uL [facility] RBC (Bld) [#/Vol] 3.59 10*6/uL Low 3.80 - 5.2 0 10*6/uL [facility] WBC (Bld) [#/Vol] 10.6 10*3/uL 3.6 - 10.7 10*3/uL [facility] Comprehensive metabolic 1998 panelon 02-23-2024 Albumin [Mass/Vol] 2.7 g/dL Low 3.5 - 5.0 g/dL [facility] ALP [Catalytic activity/Vol] 195 U/L High 38 - 126 U/L [facility] ALT [Catalytic activity/Vol] 55 U/L High 0 - 34 U/L [facility] Anion gap [Moles/Vol] 4 mmol/L 3 - 13 mmol/L [facility] AST [Catalytic activity/Vol] 74 U/L High 15 - 46 U/L [facility] Bilirubin [Mass/Vol] 0.4 mg/dL 0.2 - 1 .3 mg/dL [facility] Calcium [Mass/Vol] 7.1 mg/dL Low 8.4 - 10. 4 mg/dL [facility] Chloride [Moles/Vol] 108 mmol/L High 98 - 10 7 mmol/L [facility] CO2 [Moles/Vol] 21 mmol/L Low 22 - 30 mmol/L [facility] Creatinine [Mass/Vol] 0.46 mg/dL Low 0.52 - 1.04 mg/dL [facility] GFR/1.73 sq M.predicted (S/P/Bld) [Vol rate/Area] - PINF [facility] Comment on above: Calculation based on the Chronic Kidney Disease Epidemiology Collaboration (CKD-EPI) equation refit without adjustment for race Glucose [Mass/Vol] 79 mg/dL 70 - 100 mg/dL [facility] Potassium [Moles/Vol] 3.7 mmol/L 3.5 - 5.1 mmol/L [facility] Protein [Mass/Vol] 5.7 g/dL Low 6.3 - 8.2 g/dL [facility] Sodium [Moles/Vol] 134 mmol/L Low 135 - 145 mmol/L [facility] Urea nitrogen [Mass/Vol] 6 mg/dL Low 7 - 17 mg/dL [facility] - Chemistry and C hemistry - challengeon 02-23-2024 LDH Lactate to pyruvate reaction [Catalytic activity/Vol] 329 U/L High 120 - 246 U/L [facility] No Panel Informationon 02-22 Interpretation and review of laboratory results Abnormal [facility] CBC panel Auto (Bld)on 02-21 Erythrocyte distribution width (RBC) [Ratio] 22.3 % High 11.5 - 15.0 % [facility] Hematocrit (Bld) [Volume fraction] 27.8 % Low 35.0 - 47.0 % [facility] Hemoglobin (Bld) [Mass/Vol] 8.5 g/dL Low 11.7 - 16.0 g/dL [facility] Interpretation and review of laboratory results Abnormal [facility] IPF 15 [facility] MCH (RBC) [Entitic mass] 24.6 pg Low 26.0 - 34.0 pg [facility] MCHC (RBC) [Mass/Vol] 30.6 % 30.5 - 36.0 % [facility] MCV (RBC) [Entitic vol] 80.3 fL 77.0 - 99.0 fL [facility] Platelet mean volume (Bld) [Entitic vol] 12.1 fL 9.0 - 12.7 fL [facility] Platelets (Bld) [#/Vol] 85 10*3/uL Low 140 - 440 10*3/uL [facility] RBC (Bld) [#/Vol] 3.46 10*6/uL Low 3.80 - 5.2 0 10*6/uL [facility] WBC (Bld) [#/Vol] 14.4 10*3/uL High 3.6 - 10.7 10*3/uL [facility] Comprehensive metabolic 1998 panelon 02-22-2024 Albumin [Mass/Vol] 2.4 g/dL Low 3.5 - 5.0 g/dL [facility] ALP [Catalytic activity/Vol] 211 U/L High 38 - 126 U/L [facility] ALT [Catalytic activity/Vol] 63 U/L High 0 - 34 U/L [facility] Anion gap [Moles/Vol] 3 mmol/L 3 - 13 mmol/L [facility] AST [Catalytic activity/Vol] 115 U/L High 15 - 46 U/L [facility] Bilirubin [Mass/Vol] 0.5 mg/dL 0.2 - 1 .3 mg/dL [facility] Calcium [Mass/Vol] 7.4 mg/dL Low 8.4 - 10. 4 mg/dL [facility] Chloride [Moles/Vol] 104 mmol/L 98 - 10 7 mmol/L [facility] CO2 [Moles/Vol] 20 mmol/L Low 22 - 30 mmol/L [facility] Creatinine [Mass/Vol] 0.48 mg/dL Low 0.52 - 1.04 mg/dL [facility] GFR/1.73 sq M.predicted (S/P/Bld) [Vol rate/Area] - PINF [facility] Comment on above: Calculation based on the Chronic Kidney Disease Epidemiology Collaboration (CKD-EPI) equation refit without adjustment for race Glucose [Mass/Vol] 157 mg/dL High 70 - 100 mg/dL [facility] Potassium [Moles/Vol] 3.9 mmol/L 3.5 - 5.1 mmol/L [facility] Protein [Mass/Vol] 5.4 g/dL Low 6.3 - 8.2 g/dL [facility] Sodium [Moles/Vol] 128 mmol/L Low 135 - 145 mmol/L [facility] Urea nitrogen [Mass/Vol] 4 mg/dL Low 7 - 17 mg/dL [facility] Albumin [Mass/Vol] 3.0 g/dL Low 3.5 - 5.0 g/dL [facility] ALP [Catalytic activity/Vol] 271 U/L High 38 - 126 U/L [facility] ALT [Catalytic activity/Vol] 78 U/L High 0 - 34 U/L [facility] Anion gap [Moles/Vol] 9 mmol/L 3 - 13 mmol/L [facility] AST [Catalytic activity/Vol] 188 U/L High 15 - 46 U/L [facility] Bilirubin [Mass/Vol] 1.0 mg/dL 0.2 - 1 .3 mg/dL [facility] Calcium [Mass/Vol] 7.8 mg/dL Low 8.4 - 10. 4 mg/dL [facility] Chloride [Moles/Vol] 106 mmol/L 98 - 10 7 mmol/L [facility] CO2 [Moles/Vol] 18 mmol/L Low 22 - 30 mmol/L [facility] Creatinine [Mass/Vol] 0.45 mg/dL Low 0.52 - 1.04 mg/dL [facility] GFR/1.73 sq M.predicted (S/P/Bld) [Vol rate/Area] - [facility] Comment on above: Calculation based on the Chronic Kidney Disease Epidemiology Collaboration (CKD-EPI) equation refit without adjustment for race Glucose [Mass/Vol] 140 mg/dL High 70 - 100 mg/dL [facility] Potassium [Moles/Vol] 3.7 mmol/L 3.5 - 5.1 mmol/L [facility] Protein [Mass/Vol] 6.1 g/dL Low 6.3 - 8.2 g/dL [facility] Sodium [Moles/Vol] 133 mmol/L Low 135 - 145 mmol/L [facility] [employer] Urea nitrogen [Mass/Vol] 3 mg/dL Low 7 - 17 mg/dL [facility] - Chemistry and C hemistry - challengeon 02-22-2024 Glucose [Mass/Vol] 104 mg/dL High 70 - 100 mg/dL [facility] LDH Lactate to pyruvate reaction [Catalytic activity/Vol] 384 U/L High 120 - 246 U/L [facility] [employer] Glucose [Mass/Vol] 171 mg/dL High 70 - 100 mg/dL [facility] Glucose [Mass/Vol] 137 mg/dL High 70 - 100 mg/dL [facility] LDH Lactate to pyruvate reaction [Catalytic activity/Vol] 456 U/L High 120 - 246 U/L [facility] [employer] No Panel InformationOrdered By: Rich Lance on 02-22-2024 P [place] 14 degrees [employer] Work Phone: SD Interval 117 ms [employer] Work Phone: QRS [place] -3 degrees [employer] Work Phone: QRSD Interval 94 ms [employer] Work Phone: QT Interval 366 ms [employer] Work Phone: QTC Interval 439 ms [employer] Work Phone: T Wave [place] 32 degrees [employer] Work Phone: [employer] Work Phone: No Panel Informationon 02-21 Sinus rhythm Electronically Signed On 02-22-2024 20:00:48 EDT by Rich Meza M D - 02/22/2024 IMPRESSION: Sinus rhythm Electronically Signed On 02-22-2024 20:00:48 EDT by Rich Lance [facility] [employer] Glucose (External) [employer] Comment on above: pt's own CGM Interpretation and review of laboratory results Normal [facility] [facility] Interpretation and review of laboratory results Abnormal [facility] Performed by: [facility], [address] [place] [id number] CLIA ID: [id number] [facility] Interpretation and review of laboratory results Abnormal [facility] Interpretation and review of laboratory results Abnormal [facility] Performed by: [facility], [address] [place] [id number] CLIA ID: [id number] [facility] Interpretation and review of laboratory results Abnormal [facility] Performed by: [facility], [address] [place] [id number] CLIA ID: [id number] [facility] Interpretation and review of laboratory results Abnormal [facility] Vital signsOrdered By: Rich Lance on 02-22-2024 Heart rate 86 /min bpm [facility] [employer] Work Phone: CBC panel Auto (Bld)on 02-20 Erythrocyte distribution width (RBC) [Ratio] 22.4 % High 11.5 - 15.0 % [facility] [employer] Hematocrit (Bld) [Volume fraction] 33.3 % Low 35.0 - 47.0 % [facility] Hemoglobin (Bld) [Mass/Vol] 10.1 g/dL Low 11.7 - 16.0 g/dL [facility] Interpretation and review of laboratory results Abnormal [facility] [employer] IPF 15 [facility] MCH (RBC) [Entitic mass] 24.6 pg Low 26.0 - 34.0 pg [facility] MCHC (RBC) [Mass/Vol] 30.3 % Low 30.5 - 36.0 % [facility] MCV (RBC) [Entitic vol] 81.0 fL 77.0 - 99.0 fL [facility] Platelets (Bld) [#/Vol] 107 10*3/uL Low 140 - 440 10*3/uL [facility] RBC (Bld) [#/Vol] 4.11 10*6/uL 3.80 - 5.2 0 10*6/uL [facility] WBC (Bld) [#/Vol] 13.8 10*3/uL High 3.6 - 10.7 10*3/uL [facility] CBC panel Auto (Bld)Ordered By: Yohana Gentile on 02-21-2024 Erythrocyte distribution width (RBC) [Ratio] 22.2 % High 11.5 - 15.0 % [facility] Hematocrit (Bld) [Volume fraction] 36.0 % 35.0 - 47.0 % [facility] Hemoglobin (Bld) [Mass/Vol] 10.8 g/dL Low 11.7 - 16.0 g/dL [facility] Interpretation and review of laboratory results Abnormal [facility] IPF 15 [facility] MCH (RBC) [Entitic mass] 24.3 pg Low 26.0 - 34.0 pg [facility] MCHC (RBC) [Mass/Vol] 30.0 % Low 30.5 - 36.0 % [facility] MCV (RBC) [Entitic vol] 80.9 fL 77.0 - 99.0 fL [facility] Platelet mean volume (Bld) [Entitic vol] 11.8 fL 9.0 - 12.7 fL [facility] Platelets (Bld) [#/Vol] 111 10*3/uL Low 140 - 440 10*3/uL [facility] RBC (Bld) [#/Vol] 4.45 10*6/uL 3.80 - 5.2 0 10*6/uL [facility] WBC (Bld) [#/Vol] 11.0 10*3/uL High 3.6 - 10.7 10*3/uL [facility] Comprehensive metabolic 1998 panelon 02-21-2024 Albumin [Mass/Vol] 3.3 g/dL Low 3.5 - 5.0 g/dL [facility] ALP [Catalytic activity/Vol] 285 U/L High 38 - 126 U/L [facility] ALT [Catalytic activity/Vol] 75 U/L High 0 - 34 U/L [facility] Anion gap [Moles/Vol] 8 mmol/L 3 - 13 mmol/L [facility] AST [Catalytic activity/Vol] 154 U/L High 15 - 46 U/L [facility] Bilirubin [Mass/Vol] 1.1 mg/dL 0.2 - 1 .3 mg/dL [facility] Calcium [Mass/Vol] 8.9 mg/dL 8.4 - 10. 4 mg/dL [facility] Chloride [Moles/Vol] 106 mmol/L 98 - 10 7 mmol/L [facility] CO2 [Moles/Vol] 19 mmol/L Low 22 - 30 mmol/L [facility] Creatinine [Mass/Vol] 0.44 mg/dL Low 0.52 - 1.04 mg/dL [facility] GFR/1.73 sq M.predicted (S/P/Bld) [Vol rate/Area] - PINF [facility] Comment on above: Calculation based on the Chronic Kidney Disease Epidemiology Collaboration (CKD-EPI) equation refit without adjustment for race Glucose [Mass/Vol] 79 mg/dL 70 - 100 mg/dL [facility] Potassium [Moles/Vol] 3.7 mmol/L 3.5 - 5.1 mmol/L [facility] Protein [Mass/Vol] 6.9 g/dL 6.3 - 8.2 g/dL [facility] Sodium [Moles/Vol] 133 mmol/L Low 135 - 145 mmol/L [facility] Urea nitrogen [Mass/Vol] 3 mg/dL Low 7 - 17 mg/dL [facility] Fibrinogen Coag (PPP) [Mass/ Vol]on 02-21-2024 Interpretation and review of laboratory results Abnormal [facility] Interpretation and review of laboratory results Abnormal [facility] Laboratory - Chemistry and C hemistry - challengeon 02-21-2024 Glucose [Mass/Vol] 85 mg/dL 70 - 100 mg/dL [facility] LDH Lactate to pyruvate reaction [Catalytic activity/Vol] 403 U/L High 120 - 246 U/L [facility] Glucose [Mass/Vol] 71 mg/dL 70 - 100 mg/dL [facility] Glucose [Mass/Vol] 87 mg/dL 70 - 100 mg/dL [facility] Glucose [Mass/Vol] 88 mg/dL 70 - 100 mg/dL [facility] Glucose [Mass/Vol] 66 mg/dL Low 70 - 100 mg/dL [facility] Glucose [Mass/Vol] 56 mg/dL Low 70 - 100 mg/dL [facility] Laboratory - CoagulationOrde red By: [place] on 02-21-2024 aPTT Coag (PPP) [Time] 25.3 s 20.0 - 30.5 s [facility] INR Coag (PPP) [Relative time] Low 0.9 - 1.1 [facility] Comment on above: Recommended Anticoag ulant Therapy: SEE BELOW ----- INR of 2.0 - 3.0 : - Prophylaxis of Venous Thrombosis (high-risk surgery) - Treatment of Venous Thrombosis - Treatment of Pulmonary Embolism (Includes tissue heart valves, Acute Myocardial Infarction to prevent systemic embolism, Valvular Heart Disease, and Atrial Fibrillation) ----- INR of 2.5 - 3.5 : - Mechanical Prosthetic Valves (high risk) - If oral anticoagulant therapy is used to prevent Myocardial Infarction PT Coag (Bld) [Time] 9.6 s 9.0 - 12.0 s [facility] Laboratory - Coagulationon 0 02-21-2024 Fibrinogen Coag (PPP) [Mass/Vol] 508 mg/dL High 200 - 400 mg/dL [facility] aPTT Coag (PPP) [Time] 29.2 s 20.0 - 30.5 s [facility] INR Coag (PPP) [Relative time] Low 0.9 - 1.1 [facility] Comment on above: Recommended Anticoag ulant Therapy: SEE BELOW ----- INR of 2.0 - 3.0 : - Prophylaxis of Venous Thrombosis (high-risk surgery) - Treatment of Venous Thrombosis - Treatment of Pulmonary Embolism (Includes tissue heart valves, Acute Myocardial Infarction to prevent systemic embolism, Valvular Heart Disease, and Atrial Fibrillation) ----- INR of 2.5 - 3.5 : - Mechanical Prosthetic Valves (high risk) - If oral anticoagulant therapy is used to prevent Myocardial Infarction PT Coag (Bld) [Time] 10.0 s 9.0 - 12.0 s [facility] Fibrinogen Coag (PPP) [Mass/Vol] 533 mg/dL High 200 - 400 mg/dL [facility] No Panel InformationOrdered By: [place] on 02-21-2024 Interpretation and review of laboratory results Abnormal [facility] No Panel Informationon 02-20 Interpretation and review of laboratory results Normal [facility] Performed by: [facility], [address] [place] [address] CLIA ID: [id number] [facility] Sinus rhythm Nonspecific T abnormalities, anterior leads Electronically Signed On 02-21-2024 18:06:36 EDT by Amanda Gar CV Amanda Fernandez MD - 02/21/2024 IMPRESSION: Sinus rhythm Nonspecific T abnormalities, anterior leads Electronically Signed On 02-21-2024 18:06:36 EDT by Amanda Gar [facility] [employer] Interpretation and review of laboratory results Abnormal [facility] Interpretation and review of laboratory results Abnormal [facility] Interpretation and review of laboratory results Normal [facility] Performed by: [facility], [address] [place] [address], [place] [address] CLIA ID: [id number] [facility] Interpretation and review of laboratory results Normal [facility] Performed by: [facility], [address] [place] [address], [place] [address] CLIA ID: [id number] [facility] Interpretation and review of laboratory results Normal [facility] Performed by: [facility] [place] [facility], [address] [place] [address], [place] [address] CLIA ID: [id number] [facility] [facility] Interpretation and review of laboratory results Abnormal [facility] Performed by: [facility] [employer] [facility], [address] [place] [address], [place] [address] CLIA ID: [id number] [facility] Interpretation and review of laboratory results Abnormal [facility] Performed by: [facility], [address] [place] [address], [place] [address] CLIA ID: [id number] [facility] No Panel InformationOrdered By: Amanda Gar on 02-21-2024 P [place] 20 degrees [facility] [employer] Work Phone: SD Interval 115 ms [facility] [employer] Work Phone: QRS [place] -5 degrees [facility] [employer] Work Phone: QRSD Interval 93 ms [facility] [employer] Work Phone: QT Interval 372 ms [facility] [employer] Work Phone: QTC Interval 440 ms [facility] [employer] Work Phone: T Wave [place] 30 degrees [facility] [employer] Work Phone: [facility] Work Phone: Vital signsOrdered By: Amanda Gar on 02-21-2024 Heart rate 84 /min bpm [facility] [employer] Work Phone: Laboratory - Chemistry and C hemistry - challengeon 02-20-2024 Glucose [Mass/Vol] 77 mg/dL 70 - 100 mg/dL [facility] Glucose [Mass/Vol] 71 mg/dL 70 - 100 mg/dL [facility] Glucose [Mass/Vol] 127 mg/dL High 70 - 100 mg/dL [facility] Glucose [Mass/Vol] 107 mg/dL High 70 - 100 mg/dL [facility] No Panel Informationon 02-19 Interpretation and review of laboratory results Normal [facility] Performed by: [facility], [address] [place] [id number] CLIA ID: [id number] [facility] Interpretation and review of laboratory results Normal [facility] Performed by: [facility], [address] [place] [address], [facility] [address] CLIA ID: [id number] [facility] Interpretation and review of laboratory results Abnormal [facility] Performed by: [facility], [address] [place] [address], [facility] [address] CLIA ID: [id number] [facility] Interpretation and review of laboratory results Abnormal [facility] Performed by: [facility], [address] [place] [id number] CLIA ID: [id number] [facility] CBC panel Auto (Bld)Ordered By: Mariia Vale on 02-19-2024 Erythrocyte distribution width (RBC) [Ratio] 21.2 % High 11.5 - 15.0 % [facility] Hematocrit (Bld) [Volume fraction] 32.2 % Low 35.0 - 47.0 % [facility] Hemoglobin (Bld) [Mass/Vol] 9.6 g/dL Low 11.7 - 16.0 g/dL [facility] Interpretation and review of laboratory results Abnormal [facility] IPF 15 [facility] MCH (RBC) [Entitic mass] 23.9 pg Low 26.0 - 34.0 pg [facility] MCHC (RBC) [Mass/Vol] 29.8 % Low 30.5 - 36.0 % [facility] MCV (RBC) [Entitic vol] 80.1 fL 77.0 - 99.0 fL [facility] Platelets (Bld) [#/Vol] 135 10*3/uL Low 140 - 440 10*3/uL [facility] RBC (Bld) [#/Vol] 4.02 10*6/uL 3.80 - 5.2 0 10*6/uL [facility] WBC (Bld) [#/Vol] 6.0 10*3/uL 3.6 - 10.7 10*3/uL [facility] CBC panel Auto (Bld)Ordered By: Magi Sharma on 02-19-2024 Erythrocyte distribution width (RBC) [Ratio] 21.3 % High 11.5 - 15.0 % [facility] Hematocrit (Bld) [Volume fraction] 31.6 % Low 35.0 - 47.0 % [facility] Hemoglobin (Bld) [Mass/Vol] 9.7 g/dL Low 11.7 - 16.0 g/dL [facility] Interpretation and review of laboratory results Abnormal [facility] IPF 15 [facility] MCH (RBC) [Entitic mass] 24.6 pg Low 26.0 - 34.0 pg [facility] MCHC (RBC) [Mass/Vol] 30.7 % 30.5 - 36.0 % [facility] MCV (RBC) [Entitic vol] 80.2 fL 77.0 - 99.0 fL [facility] Platelets (Bld) [#/Vol] 132 10*3/uL Low 140 - 440 10*3/uL [facility] RBC (Bld) [#/Vol] 3.94 10*6/uL 3.80 - 5.2 0 10*6/uL [facility] WBC (Bld) [#/Vol] 6.0 10*3/uL 3.6 - 10.7 10*3/uL [facility] Comprehensive metabolic 1998 panelon 02-19-2024 Albumin [Mass/Vol] 3.0 g/dL Low 3.5 - 5.0 g/dL [facility] ALP [Catalytic activity/Vol] 216 U/L High 38 - 126 U/L [facility] ALT [Catalytic activity/Vol] 51 U/L High 0 - 34 U/L [facility] Anion gap [Moles/Vol] 6 mmol/L 3 - 13 mmol/L [facility] AST [Catalytic activity/Vol] 75 U/L High 15 - 46 U/L [facility] Bilirubin [Mass/Vol] 0.5 mg/dL 0.2 - 1 .3 mg/dL [facility] Calcium [Mass/Vol] 8.9 mg/dL 8.4 - 10. 4 mg/dL [facility] Chloride [Moles/Vol] 107 mmol/L 98 - 10 7 mmol/L [facility] CO2 [Moles/Vol] 22 mmol/L 22 - 30 mmol/L [facility] Creatinine [Mass/Vol] 0.45 mg/dL Low 0.52 - 1.04 mg/dL [facility] GFR/1.73 sq M.predicted (S/P/Bld) [Vol rate/Area] - PINF [facility] Comment on above: Calculation based on the Chronic Kidney Disease Epidemiology Collaboration (CKD-EPI) equation refit without adjustment for race Glucose [Mass/Vol] 98 mg/dL 70 - 100 mg/dL [facility] Interpretation and review of laboratory results Abnormal [facility] Potassium [Moles/Vol] 3.5 mmol/L 3.5 - 5.1 mmol/L [facility] Protein [Mass/Vol] 6.3 g/dL 6.3 - 8.2 g/dL [facility] Sodium [Moles/Vol] 135 mmol/L 135 - 145 mmol/L [facility] Urea nitrogen [Mass/Vol] 5 mg/dL Low 7 - 17 mg/dL [facility] Albumin [Mass/Vol] 2.9 g/dL Low 3.5 - 5.0 g/dL [facility] ALP [Catalytic activity/Vol] 216 U/L High 38 - 126 U/L [facility] ALT [Catalytic activity/Vol] 50 U/L High 0 - 34 U/L [facility] Anion gap [Moles/Vol] 5 mmol/L 3 - 13 mmol/L [facility] AST [Catalytic activity/Vol] 75 U/L High 15 - 46 U/L [facility] Bilirubin [Mass/Vol] 0.5 mg/dL 0.2 - 1 .3 mg/dL [facility] Calcium [Mass/Vol] 8.6 mg/dL 8.4 - 10. 4 mg/dL [facility] Chloride [Moles/Vol] 109 mmol/L High 98 - 10 7 mmol/L [facility] CO2 [Moles/Vol] 20 mmol/L Low 22 - 30 mmol/L [facility] Creatinine [Mass/Vol] 0.43 mg/dL Low 0.52 - 1.04 mg/dL [facility] GFR/1.73 sq M.predicted (S/P/Bld) [Vol rate/Area] - PINF [facility] Comment on above: Calculation based on the Chronic Kidney Disease Epidemiology Collaboration (CKD-EPI) equation refit without adjustment for race Glucose [Mass/Vol] 71 mg/dL 70 - 100 mg/dL [facility] Interpretation and review of laboratory results Abnormal [facility] Potassium [Moles/Vol] 3.8 mmol/L 3.5 - 5.1 mmol/L [facility] Protein [Mass/Vol] 6.1 g/dL Low 6.3 - 8.2 g/dL [facility] Sodium [Moles/Vol] 134 mmol/L Low 135 - 145 mmol/L [facility] Urea nitrogen [Mass/Vol] 6 mg/dL Low 7 - 17 mg/dL [facility] LDH Lactate to pyruvate reac tion [Catalytic activity/Vol]on 02-19-2024 Interpretation and review of laboratory results Normal [facility] Laboratory - Chemistry and C hemistry - challengeon 02-19-2024 Glucose [Mass/Vol] 62 mg/dL Low 70 - 100 mg/dL [facility] Glucose [Mass/Vol] 64 mg/dL Low 70 - 100 mg/dL [facility] Glucose [Mass/Vol] 73 mg/dL 70 - 100 mg/dL [facility] Glucose [Mass/Vol] 64 mg/dL Low 70 - 100 mg/dL [facility] Glucose [Mass/Vol] 53 mg/dL Low 70 - 100 mg/dL [facility] LDH Lactate to pyruvate reaction [Catalytic activity/Vol] 202 U/L 120 - 246 U/L [facility] Glucose [Mass/Vol] 122 mg/dL High 70 - 100 mg/dL [facility] Glucose [Mass/Vol] 82 mg/dL 70 - 100 mg/dL [facility] N. gonorrhoeae DNA FIORELLA+probe Ql (Cervical mucus)on 02-19-2024 C. trachomatis DNA FIORELLA+probe Ql (Unsp spec) Not detected Not Detected [facility] Interpretation and review of laboratory results Normal [facility] N gonorrhoeae, DNA Probe Not detected Not Detected [facility] Methodology: real-ti me PCR This test is intended for medical purposes only and is not intended for the evaluation of suspected sexual abuse or for other forensic purposes. In certain contexts, culture may be required to meet applicable laws and regulations for diagnosis of C. trachomatis and N. gonorrhoeae infections. Per 2014 CDC recommmendations, this test does not include confirmation of positive results by an alternative nucleic acid target. A negative result does not exclude the possibility of infection. A result of invalid indicates that a new specimen should be collected if clinically indicated. [facility] No Panel Informationon 02-18 Interpretation and review of laboratory results Abnormal [facility] Performed by: [facility], [address] [place] [id number] CLIA ID: [id number] [facility] Interpretation and review of laboratory results Abnormal [facility] Performed by: [facility], [address] [place] [address] CLIA ID: [id number] [facility] Interpretation and review of laboratory results Normal [facility] Performed by: [facility], [address] [place] [address] CLIA ID: [id number] [facility] Interpretation and review of laboratory results Abnormal [facility] Performed by: [facility], [address] [place] [id number] CLIA ID: [id number] [facility] Interpretation and review of laboratory results Abnormal [facility] Performed by: [facility], [address] [place] [address] CLIA ID: [id number] [facility] Interpretation and review of laboratory results Abnormal [facility] Performed by: [facility], [address] [place] [address] CLIA ID: [id number] [facility] Interpretation and review of laboratory results Normal [facility] Performed by: [facility], [address] [place] [address] CLIA ID: [id number] [facility] T. vaginalis DNA FIORELLA+probe Q l (Genital specimen)on 02-19-2024 Interpretation and review of laboratory results Normal [facility] Trichomonas vaginalis Not detected Not Detected [facility] Methodology: real-ti me PCR A negative result does not completely rule out infection with T. vaginalis. Results should be interpreted in conjunction with other clinical data. This test has not been validated for use with self-collected vaginal swab specimens from patients. This test is intended for medical purposes only and is not intended for the evaluation of suspected sexual abuse or for other forensic purposes. [facility] Blood type and Crossmatch pa rola (Bld)on 02-18-2024 ABO group Nom (Bld) O [facility] Blood group antibody screen GEL Ql Negative [facility] D Ag Ql (RBC) Positive [facility] CBC panel Auto (Bld)Ordered By: Jolanta Weaver on 02-18-2024 Erythrocyte distribution width (RBC) [Ratio] 21.3 % High 11.5 - 15.0 % [facility] Hematocrit (Bld) [Volume fraction] 33.6 % Low 35.0 - 47.0 % [facility] Hemoglobin (Bld) [Mass/Vol] 10.1 g/dL Low 11.7 - 16.0 g/dL [facility] Interpretation and review of laboratory results Abnormal [facility] IPF 14 [facility] MCH (RBC) [Entitic mass] 24.3 pg Low 26.0 - 34.0 pg [facility] MCHC (RBC) [Mass/Vol] 30.1 % Low 30.5 - 36.0 % [facility] MCV (RBC) [Entitic vol] 80.8 fL 77.0 - 99.0 fL [facility] Platelets (Bld) [#/Vol] 150 10*3/uL 140 - 440 10*3/uL [facility] RBC (Bld) [#/Vol] 4.16 10*6/uL 3.80 - 5.2 0 10*6/uL [facility] WBC (Bld) [#/Vol] 6.6 10*3/uL 3.6 - 10.7 10*3/uL [facility] Comprehensive metabolic 1998 panelon 02-18-2024 Albumin [Mass/Vol] 3.1 g/dL Low 3.5 - 5.0 g/dL [facility] ALP [Catalytic activity/Vol] 218 U/L High 38 - 126 U/L [facility] ALT [Catalytic activity/Vol] 49 U/L High 0 - 34 U/L [facility] Anion gap [Moles/Vol] 8 mmol/L 3 - 13 mmol/L [facility] AST [Catalytic activity/Vol] 71 U/L High 15 - 46 U/L [facility] Bilirubin [Mass/Vol] 0.7 mg/dL 0.2 - 1 .3 mg/dL [facility] Calcium [Mass/Vol] 9.1 mg/dL 8.4 - 10. 4 mg/dL [facility] Chloride [Moles/Vol] 108 mmol/L High 98 - 10 7 mmol/L [facility] CO2 [Moles/Vol] 19 mmol/L Low 22 - 30 mmol/L [facility] Creatinine [Mass/Vol] 0.47 mg/dL Low 0.52 - 1.04 mg/dL [facility] GFR/1.73 sq M.predicted (S/P/Bld) [Vol rate/Area] - PINF [facility] Comment on above: Calculation based on the Chronic Kidney Disease Epidemiology Collaboration (CKD-EPI) equation refit without adjustment for race Glucose [Mass/Vol] 110 mg/dL High 70 - 100 mg/dL [facility] Interpretation and review of laboratory results Abnormal [facility] Potassium [Moles/Vol] 3.6 mmol/L 3.5 - 5.1 mmol/L [facility] Protein [Mass/Vol] 6.5 g/dL 6.3 - 8.2 g/dL [facility] Sodium [Moles/Vol] 135 mmol/L 135 - 145 mmol/L [facility] Urea nitrogen [Mass/Vol] 6 mg/dL Low 7 - 17 mg/dL [facility] Creatinine (U) [Mass/Vol]on 02-18-2024 CREATININE, URINE 119.9 mg/dL No Range [facility] Laboratory - Chemistry and C hemistry - challengeon 02-18-2024 Glucose [Mass/Vol] 69 mg/dL Low 70 - 100 mg/dL [facility] Glucose [Mass/Vol] 93 mg/dL 70 - 100 mg/dL [facility] Laboratory - Urinalysison Protein (U) [Mass/Vol] 23 mg/dL High 0 - 12 mg/dL [facility] No Panel Informationon 02-17 Interpretation and review of laboratory results Abnormal [facility] Performed by: [facility] [facility], [address] [place] [id number] CLIA ID: [id number] [facility] Interpretation and review of laboratory results Normal [facility] Performed by: [facility], [address] [place] [address] CLIA ID: [id number] [facility] Interpretation and review of laboratory results Abnormal [facility] Progress Noteon 02-17-2024 [employer] Authentication Interface Message Text Lab review Normal [facility] Progress Noteon 02-15-2024 [employer] Authentication Interface Message Text Normal [facility] Blood type and Crossmatch nicolle rola (Bld)on 02-10-2024 ABO group Nom (Bld) O [facility] Blood group antibody screen GEL Ql Negative [facility] D Ag Ql (RBC) Positive [facility] CBC panel Auto (Bld)Ordered By: Deni Roque on 02-10-2024 Erythrocyte distribution width (RBC) [Ratio] 21.9 % High 11.5 - 15.0 % [facility] Hematocrit (Bld) [Volume fraction] 33.6 % Low 35.0 - 47.0 % [facility] Hemoglobin (Bld) [Mass/Vol] 9.9 g/dL Low 11.7 - 16.0 g/dL [facility] Interpretation and review of laboratory results Abnormal [facility] MCH (RBC) [Entitic mass] 23.9 pg Low 26.0 - 34.0 pg [facility] MCHC (RBC) [Mass/Vol] 29.5 % Low 30.5 - 36.0 % [facility] MCV (RBC) [Entitic vol] 81.0 fL 77.0 - 99.0 fL [facility] Platelet mean volume (Bld) [Entitic vol] 12.3 fL 9.0 - 12.7 fL [facility] Platelets (Bld) [#/Vol] 161 10*3/uL 140 - 440 10*3/uL [facility] RBC (Bld) [#/Vol] 4.15 10*6/uL 3.80 - 5.2 0 10*6/uL [facility] WBC (Bld) [#/Vol] 8.3 10*3/uL 3.6 - 10.7 10*3/uL [facility] Comprehensive metabolic 1998 panelon 02-10-2024 Albumin [Mass/Vol] 3.2 g/dL Low 3.5 - 5.0 g/dL [facility] ALP [Catalytic activity/Vol] 198 U/L High 38 - 126 U/L [facility] ALT [Catalytic activity/Vol] 21 U/L 0 - 34 U/L [facility] Anion gap [Moles/Vol] 7 mmol/L 3 - 13 mmol/L [facility] AST [Catalytic activity/Vol] 30 U/L 15 - 46 U/L [facility] Bilirubin [Mass/Vol] 0.6 mg/dL 0.2 - 1 .3 mg/dL [facility] Calcium [Mass/Vol] 8.9 mg/dL 8.4 - 10. 4 mg/dL [facility] Chloride [Moles/Vol] 105 mmol/L 98 - 10 7 mmol/L [facility] CO2 [Moles/Vol] 19 mmol/L Low 22 - 30 mmol/L [facility] Creatinine [Mass/Vol] 0.41 mg/dL Low 0.52 - 1.04 mg/dL [facility] GFR/1.73 sq M.predicted (S/P/Bld) [Vol rate/Area] - PINF [facility] Comment on above: Calculation based on the Chronic Kidney Disease Epidemiology Collaboration (CKD-EPI) equation refit without adjustment for race Glucose [Mass/Vol] 114 mg/dL High 70 - 100 mg/dL [facility] Interpretation and review of laboratory results Abnormal [facility] Potassium [Moles/Vol] 3.7 mmol/L 3.5 - 5.1 mmol/L [facility] Protein [Mass/Vol] 6.8 g/dL 6.3 - 8.2 g/dL [facility] Sodium [Moles/Vol] 131 mmol/L Low 135 - 145 mmol/L [facility] Urea nitrogen [Mass/Vol] 4 mg/dL Low 7 - 17 mg/dL [facility] Creatinine (U) [Mass/Vol]on 02-10-2024 CREATININE, URINE 56.0 mg/dL No Range [facility] Laboratory - Urinalysison Protein (U) [Mass/Vol] 16 mg/dL High 0 - 12 mg/dL [facility] No Panel Informationon 02-09 Interpretation and review of laboratory results Abnormal [facility] Progress Noteon 02-08-2024 [employer] Authentication Interface Message Text Normal [facility] Rule out Beta Strep (Grp. B) on 02-03-2024 CRISTINA Group B Beta Streptococcus is not isolated. Normal [facility] Comment on above: Performed By: #### M 100.2000, M100.3000 #### [facility] [address] [place], [address] Progress Noteon 02-01-2024 [employer] Authentication Interface Message Text Normal [facility] COMPLETE BLOOD COUNT WITH DI FFERENTIALon 01-25-2024 Basophils (Bld) [#/Vol] 0.01 10*3/uL Low 0.02-0.06 [facility] Comment on above: Performed By: #### 1 001 ####BREANNE ERNANDEZCON W ([id number])[facility] (BEAKER)ONE [address] Basophils/100 WBC (Bld) 0.1 % Low 0.3-0.9 [facility] Comment on above: Performed By: #### 1 001 ####BREANNE ERNANDEZCON W ([id number])[facility] (BEAKER)ONE [place], [place] [id number] [place] [address] Eosinophils (Bld) [#/Vol] 0.06 10*3/uL Normal 0.04-0.27 [facility] Comment on above: Performed By: #### 1 001 ####BREANNE BACCON W ([id number])[facility] (BEAKER)[place] [address] [place] Eosinophils/100 WBC (Bld) 0.6 % Normal 0.6-3.8 [facility] Comment on above: Performed By: #### 1 001 ####BREANNE BACCON W ([id number])[facility] (BEAKER)[place] [address] [place] Erythrocyte distribution width (RBC) [Ratio] 20.6 % High 11.9-14.8 [facility] Comment on above: Performed By: #### 1 001 ####BREANNE BACCON W ([id number])[facility] (BEAKER)[place] [address] [place] Hematocrit (Bld) [Volume fraction] 32.9 % Low 35.5-44.6 [facility] Comment on above: Performed By: #### 1 001 ####BREANNE BACCON W ([id number])[facility] (BEAKER)[place] [address] [place] Hemoglobin (Bld) [Mass/Vol] 9.8 g/dL Low 11.4-14.8 [facility] Comment on above: Performed By: #### 1 001 ####BREANNE Callahan ([id number])[facility] (Sawerly)ONE [address] Immature granulocytes/100 WBC (Bld) 0.6 % High 0.2-0.5 [facility] Comment on above: Result Comment: Jeannine ture Granulocyte Percent includes promyelocytes, myelocytes,and metamyelocytes. IG% > 1.0 indicates a left shift is present. With automated differentials, bands are included in the neutrophil count and not in the Immature Granulocyte Percent. Performed By: #### 1 001 ####BREANNE Callahan ([id number])[facility] (Sawerly)ONE [address] Lymphocytes (Bld) [#/Vol] 1.30 10*3/uL Low 1.51-2.99 [facility] Comment on above: Performed By: #### 1 001 ####BREANNE MANTILLA W ([id number])[facility] (Sawerly)ONE [address] Lymphocytes/100 WBC (Bld) 13.3 % Low 21.8-42.1 [facility] Comment on above: Performed By: #### 1 001 ####BREANNE MANTILLA W ([id number])[facility] (Sawerly)ONE [address] MCH (RBC) [Entitic mass] 24.1 pg Low 25.7-31.2 [facility] Comment on above: Performed By: #### 1 001 ####BREANNE BACCON W ([id number])[facility] (Sawerly)ONE [address] MCHC 29.8 % Low 31.3-34.0 [facility] Comment on above: Performed By: #### 1 001 ####BREANNE MANTILLA W ([id number])[facility] (Sawerly)ONE [address] MCV (RBC) [Entitic vol] 80.8 fL Normal 80.7-93.7 [facility] Comment on above: Performed By: #### 1 001 ####BREANNE BACCON W ([id number])[facility] (BETouchtalent)ONE [place] [address] [place] Monocytes (Bld) [#/Vol] 0.69 10*3/uL Normal 0.36-0.77 [facility] Comment on above: Performed By: #### 1 001 ####BREANNE BACCON W ([id number])[facility] (BEAKER)ONE [place] [address] [place] Monocytes/100 WBC (Bld) 7.0 % Normal 5.6-10.2 [facility] Comment on above: Performed By: #### 1 001 ####BREANNE BACCON W ([id number])[facility] (BEAKER[place] [address] [place] Neutrophils (Bld) [#/Vol] 7.69 10*3/uL High 2.43-6.42 [facility] Comment on above: Performed By: #### 1 001 ####BREANNE BACCON W ([id number])[facility] ([facility]ER[place] [address] [place] Neutrophils/100 WBC (Bld) 78.4 % High 46.0-68.6 [facility] Comment on above: Performed By: #### 1 001 ####BREANNE BACCON W ([id number])[facility] (BEAKER)[place] [address] [place] Nucleated RBC/100 WBC (Bld) [Ratio] 0.0 % Normal 0.0-0.0 [facility] Comment on above: Performed By: #### 1 001 ####BREANNE BACCON W ([id number])[facility] (BEAKER)ONE [facility] [place] [address] [place] Platelet mean volume (Bld) [Entitic vol] 12.8 fL High 9.6-11.9 [facility] Comment on above: Performed By: #### 1 001 ####BREANNE BACCON W ([id number])[facility] (BEAKER)ONE [facility] [place] [address] [place] Platelets (Bld) [#/Vol] 231 10*3/uL Normal 150-400 [facility] Comment on above: Performed By: #### 1 001 ####BREANNE Callahan ([id number])[facility] (Sawerly)[place] [address] [place] RBC 4.07 10E12/L Normal 4.03-4.91 [facility] Comment on above: Performed By: #### 1 001 ####BREANNE Callahan ([id number])[facility] (Sawerly)ONE [facility] [place] [address] [place] WBC (Bld) [#/Vol] 9.8 10*3/uL Normal 4.9-10.0 [facility] Comment on above: Performed By: #### 1 001 ####BREANNE Callahan ([id number])[facility] (Sawerly)ONE [place] [address] [place] COMPREHENSIVE METABOLIC PANE Eric 01-25-2024 Albumin [Mass/Vol] 3.4 g/dL Low 3.5-5.0 [facility] Comment on above: Order Comment: Relea se to patient->Automatic Performed By: #### 3 834 ####BREANNE Callahan ([id number])[facility] (Sawerly)ONE [place] [address] [place] ALP [Catalytic activity/Vol] 173 U/L High 35-104 [facility] Comment on above: Order Comment: Relea se to patient->Automatic Performed By: #### 3 834 ####BREANNE Callahan ([id number])[facility] (Sawerly)ONE [place] [address] [place] ALT [Catalytic activity/Vol] 9 U/L Normal <=34 [facility] Comment on above: Order Comment: Relea se to patient->Automatic Performed By: #### 3 834 ####BREANNE Callahan ([id number])[facility] (Sawerly[place] [address] [place] AST [Catalytic activity/Vol] 24 U/L Normal <=31 [facility] Comment on above: Order Comment: Relea se to patient->Automatic Performed By: #### 3 834 ####BREANNE BACCON W ([id number])[facility] (Sawerly)[place] [address] [place] BILI,TOTAL 0.5 MG/DL Normal <=1.0 [facility] Comment on above: Order Comment: Relea se to patient->Automatic Performed By: #### 3 834 ####BREANNE BACCON W ([id number])[facility] (Sawerly)[place] [address] [place] Calcium [Mass/Vol] 9.4 mg/dL Normal 7.6-11.0 [facility] Comment on above: Order Comment: Relea se to patient->Automatic Performed By: #### 3 834 ####BREANNE BACDYLAN W ([id number])[facility] (Sawerly)[place] [address] [place] Chloride [Moles/Vol] 100 mmol/L Normal 96-108 [facility] Comment on above: Order Comment: Relea se to patient->Automatic Performed By: #### 3 834 ####BREANNE BACDYLAN W ([id number])[facility] (Sawerly)[place] [address] [place] CO2 [Moles/Vol] 21.1 mmol/L Low 22.0-29.0 [facility] Comment on above: Order Comment: Relea se to patient->Automatic Performed By: #### 3 834 ####BREANNE BACDYLAN W ([id number])[facility] (Sawerly)[place] [address] [place] Creatinine [Mass/Vol] 0.43 mg/dL Low 0.50-1.00 [facility] Comment on above: Order Comment: Relea se to patient->Automatic Performed By: #### 3 834 ####BREANNE BACCON W ([id number])[facility] (Sawerly)[place] [address] [place] GFR/1.73 sq M.predicted among non-blacks MDRD (S/P/Bld) [Vol rate/Area] mL/min/{1.73_m2} Normal >=60 [facility] Comment on above: Order Comment: Relea se to patient->Automatic Performed By: #### 3 834 ####BREANNE Callahan ([id number])[facility] (Saw[facility])[place] [address] [place] Glucose [Mass/Vol] 191 mg/dL High 70-99 [facility] Comment on above: Order Comment: Relea se to patient->Automatic Result Comment: Crit eria for Diagnosis of Diabetes:Fasting Specimen (no caloric intake for at least 8 hours):<100 mg/dL [id number] mg/dL Increased risk for Diabetes>125 mg/dL Diagnostic for DiabetesRandom Glucose (any time of day without regard to last meal): > or = 200 mg/dL plus Classic Symptoms of Diabetes Performed By: #### 3 834 ####BREANNE Calalhan ([id number])[facility] (Saw[facility]ly)[place] [address] [place] Potassium [Moles/Vol] 3.6 mmol/L Normal 3.3-5.1 [facility] Comment on above: Order Comment: Relea se to patient->Automatic Performed By: #### 3 834 ####BREANNE Callahan ([id number])[facility] (Sawerly)[place] [address] [place] Protein [Mass/Vol] 7.1 g/dL Normal 5.9-8.4 [facility] Comment on above: Order Comment: Relea se to patient->Automatic Performed By: #### 3 834 ####BREANNE Callahan ([id number])[facility] (Sawerly)[place] [address] [place] Sodium [Moles/Vol] 135 mmol/L Normal 133-145 [facility] Comment on above: Order Comment: Relea se to patient->Automatic Performed By: #### 3 834 ####BREANNE Callahan ([id number])[facility] (Sawerly)[place] [address] [place] Urea nitrogen [Mass/Vol] 5 mg/dL Normal 4-19 [facility] Comment on above: Order Comment: Relea se to patient->Automatic Performed By: #### 3 834 ####BREANNE Callahan ([id number])[facility] ([facility]aw[facility]ly)ONE [place] [address] [place] [address] HEMOGLOBIN A1Con 01-25-2024 HbA1c (Bld) [Mass fraction] 5.9 % High <=5.6 [facility] Comment on above: Order Comment: Relea se to patient->Automatic Result Comment: Refe rence Interval:<5.7%5.7-6.4% Prediabetes> or = 6.5% DiabetesTargets for diabetes management:Type I <7.5%Type II <7.0% Performed By: #### 2 557 ####BREANNE Callahan ([id number])[facility] (Sawerly)[address] LACTATE DEHYDROGENASEon 12-28 LDH [Catalytic activity/Vol] 166 U/L Normal 120-234 [facility] Comment on above: Order Comment: Relea se to patient->Automatic Performed By: #### 2 640 ####BREANNE Callahan ([id number])[facility] (Sawerly)ONE [place], [place] [address] [place] [address] Progress Noteon 01-25-2024 [employer] Authentication Interface Message Text Normal [facility] URIC ACIDon 01-25-2024 Urate [Mass/Vol] 4.4 mg/dL Normal 2.6-8.0 [facility] Comment on above: Order Comment: Relea se to patient->Automatic Performed By: #### 3 070 ####BREANNE Callahan ([id number])[facility] (Sawerly)[place] [address] [facility] URINE CULTUREon 01-25-2024 Bacteria identified Cx Nom (U) Resistant [facility] Comment on above: Order Comment: Relea se to patient->Automatic Performed By: #### 4 445 ####BREANNE MANTILLA W ([id number])[facility] (Sawerly[place] [address] [facility] Progress Noteon 01-20-2024 [employer] Authentication Interface Message Text Open to obtain labs Normal [facility] Progress Noteon 01-18-2024 [employer] Authentication Interface Message Text Normal [facility] Laboratory - Chemistry and C hemistry - challengeon 01-14-2024 Glucose [Mass/Vol] 121 mg/dL High 70 - 100 mg/dL [facility] No Panel Informationon 01-13 Interpretation and review of laboratory results Abnormal [facility] Performed by: [facility], [address] [place] [address] 18[address] CLIA ID: [id number] [facility] Progress Noteon 01-11-2024 [employer] Authentication Interface Message Text Normal [facility] Laboratory - Chemistry and C hemistry - challengeon 01-09-2024 Glucose [Mass/Vol] 50 mg/dL Low 70 - 100 mg/dL [facility] Glucose [Mass/Vol] 60 mg/dL Low 70 - 100 mg/dL [facility] Glucose [Mass/Vol] 59 mg/dL Low 70 - 100 mg/dL [facility] Glucose [Mass/Vol] mg/dL Low 70 - 100 mg/dL [facility] Comment on above: Result Not Confirmed ; No Panel Informationon 01-08 Interpretation and review of laboratory results Abnormal [facility] Performed by: [facility], [address] [place] [address] CLIA ID: [id number] [facility] Interpretation and review of laboratory results Abnormal [facility] Performed by: [facility], [address] [place] [address] CLIA ID: [id number] [facility] Interpretation and review of laboratory results Abnormal [facility] Performed by: [facility], [address] [place] [address] CLIA ID: [id number] [facility] Interpretation and review of laboratory results Abnormal [facility] Performed by: [facility], [address] [place] [address] CLIA ID: [id number] [facility] Creatinine (U) [Mass/Vol]on 01-08-2024 CREATININE, URINE 43.0 mg/dL No Range [facility] Ferritin [Mass/Vol]on 2023 Interpretation and review of laboratory results Abnormal [facility] Laboratory - Chemistry and C hemistry - challengeon 01-08-2024 Glucose [Mass/Vol] 82 mg/dL 70 - 100 mg/dL [facility] Glucose [Mass/Vol] 88 mg/dL 70 - 100 mg/dL [facility] Glucose [Mass/Vol] 54 mg/dL Low 70 - 100 mg/dL [facility] Glucose [Mass/Vol] 77 mg/dL 70 - 100 mg/dL [facility] Ferritin [Mass/Vol] 4 ng/mL Low 6 - 137 ng/mL [facility] Laboratory - Urinalysison Protein (U) [Mass/Vol] 15 mg/dL High 0 - 12 mg/dL [facility] N. gonorrhoeae DNA FIORELLA+probe Ql (Cervical mucus)on 01-08-2024 C. trachomatis DNA FIORELLA+probe Ql (Unsp spec) Not detected Not Detected [facility] Interpretation and review of laboratory results Normal [facility] N gonorrhoeae, DNA Probe Not detected Not Detected [facility] Methodology: real-ti me PCR This test is intended for medical purposes only and is not intended for the evaluation of suspected sexual abuse or for other forensic purposes. In certain contexts, culture may be required to meet applicable laws and regulations for diagnosis of C. trachomatis and N. gonorrhoeae infections. Per 2014 CDC recommmendations, this test does not include confirmation of positive results by an alternative nucleic acid target. A negative result does not exclude the possibility of infection. A result of invalid indicates that a new specimen should be collected if clinically indicated. [facility] No Panel Informationon 01-07 Interpretation and review of laboratory results Normal [facility] Performed by: [facility], [address] [place] [address] CLIA ID: [id number] [facility] Interpretation and review of laboratory results Normal [facility] Performed by: [facility], [address] [place] [address] CLIA ID: [id number] [facility] Interpretation and review of laboratory results Abnormal [facility] Performed by: [facility], [address] [place] [address] CLIA ID: [id number] [facility] 1. Lopez live intrauterine at 30w 4d. 2. Normal growth; EFW 2037 grams, which is at the 75% for this gestational age. AC is at the 98% today 3. The amniotic fluid index is 25.cm, which is consistent with polyhydramnios 4. Visualized anatomy appears normal as noted above. 5. BPP 02/03 6. BREECH presentation today Follow-up as clinically indicated. Ultrasound is not diagnostic of chromosomal aneuploidy and does not detect all subtle defects. Normal ultrasound findings do not guarantee normal outcomes. [facility] - OBSTETRICS REPORT (Signed Final 01/08/2024 10:46 am) - PATIENT INFO: ID #: [id number] : [birth year] (18 yrs)(F) Name: CATALINA CAPELLAN Visit Date: 01/08/2024 08:11 am - PERFORMED BY: Attending: Hugo Rodriguez MD Performed By: Gracia Sims RDMS Referred By: JOLENE ESTEVEZ Ref. Address: [address] [place] [address] Location: [facility] IP Visit Type: Inpatient - Hospital - SERVICE(S) PROVIDED: [place] [id number] BPP w/out NST 94238 - INDICATIONS: Polyhydramnios, third trimester O40.3XX0 DMT1 - VITAL SIGNS: Weight (lb): 168 Height: 5'6 BMI: 27.11 - EVALUATION: Num Of Fetuses: 1 Heart Rate(bpm): 141 Cardiac Activity: Regular rhythm Lie: Longitudinal Presentation: Breech Placenta: Posterior Amniotic Fluid ALLI FV: Polyhydramnios ALLI Sum(cm) %Tile Largest Pocket(cm) 25 96 11.8 RUQ(cm) RLQ(cm) LUQ(cm) 11.8 6.8 6.4 - BIOPHYSICAL EVALUATION: Amniotic F.V: Within normal limits F. Tone: Observed F. Movement: Observed Score: 02/03 F. Breathing: Observed - BIOMETRY: BPD: 82.7 mm G.Age: 33w 2d 97 % OFD: 106.2 mm HC: 302.9 mm G.Age: 33w 5d 91 % AC: 294.5 mm G.Age: 33w 3d 98 % FL: 59.4 mm G.Age: 31w 0d 47 % LV: 6.35 mm CI: 77.9 % 70 - 86 FL/HC: 19.6 % 19.3 - 21.3 HC/AC: 1.03 0.96 - 1.17 FL/BPD: 71.8 % 71 - 87 FL/AC: 20.2 % 20 - 24 Est. FW: 2037 gm 4 lb 8 oz 75 % - GESTATIONAL AGE: Clinical TEJ: 30w 4d TEJ: 03/14/24 / Today: 32w 6d TEJ: 02/27/24 Best: 30w 4d Det. By: Clinical TEJ TEJ: 03/14/24 - ANATOMY: Cranium: Normal appearance Ventricles: Normal appearance Choroid Plexus: Normal appearance Cerebellum: Normal appearance Posterior Fossa: Normal appearance Thoracic: Normal appearance Heart: Normal appearance RVOT: Normal appearance LVOT: Normal appearance Diaphragm: Normal appearance Stomach: Normal appearance Abdomen: Normal appearance Abdominal Wall: Normal appearance Cord Vessels: 3-Vessel Cord Kidneys: Normal appearance Bladder: Normal appearance - - Hugo Rodriguez MD Electronically Signed Final Report 01/08/2024 10:46 am - [facility] Hugo Rodriguez MD - 01/08/2024 - OBSTETRICS REPORT (Signed Final 01/08/2024 10:46 am) - PATIENT INFO: ID #: [id number] : [birth year] (18 yrs)(F) Name: CATALINA CAPELLAN Visit Date: 01/08/2024 08:11 am - PERFORMED BY: Attending: Hugo Rodriugez MD Performed By: Gracia Sims RDMS Referred By: JOLENE ESTEVEZ Ref. Address: [address] [facility] [facility] IP Visit Type: Inpatient - Hospital - SERVICE(S) [place]: [place] [address] BPP w/out NST 05129 - INDICATIONS: Polyhydramnios, third trimester O40.3XX0 DMT1 - VITAL SIGNS: Weight (lb): 168 Height: 5'6 BMI: 27.11 - EVALUATION: Num Of Fetuses: 1 Heart Rate(bpm): 141 Cardiac Activity: Regular rhythm Lie: Longitudinal Presentation: Breech Placenta: Posterior Amniotic Fluid ALLI FV: Polyhydramnios ALLI Sum(cm) %Tile Largest Pocket(cm) 25 96 11.8 RUQ(cm) RLQ(cm) LUQ(cm) 11.8 6.8 6.4 - BIOPHYSICAL EVALUATION: Amniotic F.V: Within normal limits F. Tone: Observed F. Movement: Observed Score: 02/03 F. Breathing: Observed - BIOMETRY: BPD: 82.7 mm G.Age: 33w 2d 97 % OFD: 106.2 mm HC: 302.9 mm G.Age: 33w 5d 91 % AC: 294.5 mm G.Age: 33w 3d 98 % FL: 59.4 mm G.Age: 31w 0d 47 % LV: 6.35 mm CI: 77.9 % 70 - 86 FL/HC: 19.6 % 19.3 - 21.3 HC/AC: 1.03 0.96 - 1.17 FL/BPD: 71.8 % 71 - 87 FL/AC: 20.2 % 20 - 24 Est. FW: 7 gm 4 lb 8 oz 75 % - GESTATIONAL AGE: Clinical TEJ: 30w 4d TEJ: 03/14/24 U/S Today: 32w 6d TEJ: 02/27/24 Best: 30w 4d Det. By: Clinical TEJ TEJ: 03/14/24 - ANATOMY: Cranium: Normal appearance Ventricles: Normal appearance Choroid Plexus: Normal appearance Cerebellum: Normal appearance Posterior Fossa: Normal appearance Thoracic: Normal appearance Heart: Normal appearance RVOT: Normal appearance LVOT: Normal appearance Diaphragm: Normal appearance Stomach: Normal appearance Abdomen: Normal appearance Abdominal Wall: Normal appearance Cord Vessels: 3-Vessel Cord Kidneys: Normal appearance Bladder: Normal appearance - - Hugo Rodriguez MD Electronically Signed Final Report 01/08/2024 10:46 am - IMPRESSION: 1. Lopez live intrauterine at 30w 4d. 2. Normal growth; EFW 2037 grams, which is at the 75% for this gestational age. AC is at the 98% today 3. The amniotic fluid index is 25.cm, which is consistent with polyhydramnios 4. Visualized anatomy appears normal as noted above. 5. BPP 8/8 6. BREECH presentation today Follow-up as clinically indicated. Ultrasound is not diagnostic of chromosomal aneuploidy and does not detect all subtle defects. Normal ultrasound findings do not guarantee normal outcomes. [facility] Study observation (narrative) [facility] Interpretation and review of laboratory results Normal [facility] Performed by: [facility], [address] [place] [address] CLIA ID: [id number] [employer] Interpretation and review of laboratory results Abnormal [employer] No Panel InformationOrdered By: Hugo Rodriguez on 01-08-2024 [employer] Work Phone: T. vaginalis DNA FIORELLA+probe Q l (Genital specimen)on 01-08-2024 Interpretation and review of laboratory results Normal [facility] Trichomonas vaginalis Not detected Not Detected [facility] Methodology: real-ti me PCR A negative result does not completely rule out infection with T. vaginalis. Results should be interpreted in conjunction with other clinical data. This test has not been validated for use with self-collected vaginal swab specimens from patients. This test is intended for medical purposes only and is not intended for the evaluation of suspected sexual abuse or for other forensic purposes. [facility] Blood type and Crossmatch pa rola (Bld)on 01-07-2024 ABO group Nom (Bld) O [facility] Blood group antibody screen GEL Ql Negative [facility] D Ag Ql (RBC) Positive [facility] CBC panel Auto (Bld)Ordered By: Magi Sharma on 01-07-2024 Erythrocyte distribution width (RBC) [Ratio] 15.2 % High 11.5 - 15.0 % [facility] Hematocrit (Bld) [Volume fraction] 26.7 % Low 35.0 - 47.0 % [facility] Hemoglobin (Bld) [Mass/Vol] 8.0 g/dL Low 11.7 - 16.0 g/dL [facility] Interpretation and review of laboratory results Abnormal [facility] MCH (RBC) [Entitic mass] 23.3 pg Low 26.0 - 34.0 pg [facility] MCHC (RBC) [Mass/Vol] 30.0 % Low 30.5 - 36.0 % [facility] MCV (RBC) [Entitic vol] 77.6 fL 77.0 - 99.0 fL [facility] Platelet mean volume (Bld) [Entitic vol] 12.5 fL 9.0 - 12.7 fL [facility] Platelets (Bld) [#/Vol] 205 10*3/uL 140 - 440 10*3/uL [facility] RBC (Bld) [#/Vol] 3.44 10*6/uL Low 3.80 - 5.2 0 10*6/uL [facility] WBC (Bld) [#/Vol] 9.9 10*3/uL 3.6 - 10.7 10*3/uL [facility] Comprehensive metabolic 1998 panelon 01-07-2024 Albumin [Mass/Vol] 3.2 g/dL Low 3.5 - 5.0 g/dL [facility] ALP [Catalytic activity/Vol] 115 U/L 38 - 126 U/L [facility] ALT [Catalytic activity/Vol] 10 U/L 0 - 34 U/L [facility] Anion gap [Moles/Vol] 7 mmol/L 3 - 13 mmol/L [facility] AST [Catalytic activity/Vol] 20 U/L 15 - 46 U/L [facility] Bilirubin [Mass/Vol] 0.3 mg/dL 0.2 - 1 .3 mg/dL [facility] Calcium [Mass/Vol] 8.9 mg/dL 8.4 - 10. 4 mg/dL [facility] Chloride [Moles/Vol] 106 mmol/L 98 - 10 7 mmol/L [facility] CO2 [Moles/Vol] 22 mmol/L 22 - 30 mmol/L [facility] Creatinine [Mass/Vol] 0.39 mg/dL Low 0.52 - 1.04 mg/dL [facility] GFR/1.73 sq M.predicted MDRD (S/P/Bld) [Vol rate/Area] - PINF [facility] Comment on above: Calculation based on the Chronic Kidney Disease Epidemiology Collaboration (CKD-EPI) equation refit without adjustment for race Glucose [Mass/Vol] 88 mg/dL 70 - 100 mg/dL [facility] Interpretation and review of laboratory results Abnormal [facility] Potassium [Moles/Vol] 3.3 mmol/L Low 3.5 - 5.1 mmol/L [facility] Protein [Mass/Vol] 6.6 g/dL 6.3 - 8.2 g/dL [facility] Sodium [Moles/Vol] 134 mmol/L Low 135 - 145 mmol/L [facility] Urea nitrogen [Mass/Vol] 5 mg/dL Low 7 - 17 mg/dL [facility] Laboratory - Chemistry and C hemistry - challengeon 01-07-2024 Glucose [Mass/Vol] 106 mg/dL High 70 - 100 mg/dL [facility] Glucose [Mass/Vol] 79 mg/dL 70 - 100 mg/dL [facility] No Panel Informationon 01-06 Interpretation and review of laboratory results Abnormal [facility] Performed by: [facility], [address] [place] [address] CLIA ID: [id number] [facility] Interpretation and review of laboratory results Normal [facility] Performed by: [facility], [address] [place] [address] CLIA ID: [id number] [facility] Progress Noteon 01-04-2024 [employer] Authentication Interface Message Text Addended note that pulled comment from LMP that pt was on patch and thinks could be . Normal [facility] [employer] Authentication Interface Message Text Normal [facility] CBC panel Auto (Bld)Ordered By: Ulises North on 01-02-2024 Erythrocyte distribution width (RBC) [Ratio] 14.7 % 11.5 - 15.0 % [facility] Hematocrit (Bld) [Volume fraction] 27.8 % Low 35.0 - 47.0 % [facility] Hemoglobin (Bld) [Mass/Vol] 8.6 g/dL Low 11.7 - 16.0 g/dL [facility] Interpretation and review of laboratory results Abnormal [facility] MCH (RBC) [Entitic mass] 23.8 pg Low 26.0 - 34.0 pg [facility] MCHC (RBC) [Mass/Vol] 30.9 % 30.5 - 36.0 % [facility] MCV (RBC) [Entitic vol] 77.0 fL 77.0 - 99.0 fL [facility] Platelet mean volume (Bld) [Entitic vol] 11.7 fL 9.0 - 12.7 fL [facility] Platelets (Bld) [#/Vol] 208 10*3/uL 140 - 440 10*3/uL [facility] RBC (Bld) [#/Vol] 3.61 10*6/uL Low 3.80 - 5.2 0 10*6/uL [facility] WBC (Bld) [#/Vol] 11.0 10*3/uL High 3.6 - 10.7 10*3/uL [facility] Comprehensive metabolic 1998 panelon 01-02-2024 Albumin [Mass/Vol] 3.3 g/dL Low 3.5 - 5.0 g/dL [facility] ALP [Catalytic activity/Vol] 115 U/L 38 - 126 U/L [facility] ALT [Catalytic activity/Vol] 10 U/L 0 - 34 U/L [facility] Anion gap [Moles/Vol] 10 mmol/L 3 - 13 mmol/L [facility] AST [Catalytic activity/Vol] 18 U/L 15 - 46 U/L [facility] Bilirubin [Mass/Vol] 0.5 mg/dL 0.2 - 1 .3 mg/dL [facility] Calcium [Mass/Vol] 9.1 mg/dL 8.4 - 10. 4 mg/dL [facility] Chloride [Moles/Vol] 104 mmol/L 98 - 10 7 mmol/L [facility] CO2 [Moles/Vol] 20 mmol/L Low 22 - 30 mmol/L [facility] Creatinine [Mass/Vol] 0.35 mg/dL Low 0.52 - 1.04 mg/dL [facility] GFR/1.73 sq M.predicted MDRD (S/P/Bld) [Vol rate/Area] - PINF [facility] Comment on above: Calculation based on the Chronic Kidney Disease Epidemiology Collaboration (CKD-EPI) equation refit without adjustment for race Glucose [Mass/Vol] 104 mg/dL High 70 - 100 mg/dL [facility] Interpretation and review of laboratory results Abnormal [facility] Potassium [Moles/Vol] 3.4 mmol/L Low 3.5 - 5.1 mmol/L [facility] Protein [Mass/Vol] 6.8 g/dL 6.3 - 8.2 g/dL [facility] Sodium [Moles/Vol] 133 mmol/L Low 135 - 145 mmol/L [facility] Urea nitrogen [Mass/Vol] 3 mg/dL Low 7 - 17 mg/dL [facility] Creatinine (U) [Mass/Vol]on 01-02-2024 CREATININE, URINE 31.6 mg/dL No Range [facility] Laboratory - Chemistry and C hemistry - challengeon 01-02-2024 Glucose [Mass/Vol] 105 mg/dL High 70 - 100 mg/dL [facility] Laboratory - Urinalysison Protein (U) [Mass/Vol] 24 mg/dL High 0 - 12 mg/dL [facility] No Panel Informationon 01-01 Interpretation and review of laboratory results Abnormal [facility] Interpretation and review of laboratory results Abnormal [facility] Performed by: [facility], [address] [place], [place] [id number] CLIA ID: [id number] [facility] COMPLETE BLOOD COUNT WITH DI AYSHAIALon 12-28-2023 Basophils (Bld) [#/Vol] 0.01 10*3/uL Low 0.02-0.06 [facility] Comment on above: Order Comment: Relea se to patient->Automatic Performed By: #### 1 001 ####BREANNE MANTILLA W ([id number])[facility] ([employer])ONE [address] Basophils/100 WBC (Bld) 0.1 % Low 0.3-0.9 [facility] Comment on above: Order Comment: Relea se to patient->Automatic Performed By: #### 1 001 ####BREANNE BACDYLAN W ([id number])[facility] ([employer])ONE [address] Eosinophils (Bld) [#/Vol] 0.12 10*3/uL Normal 0.04-0.27 [facility] Comment on above: Order Comment: Relea se to patient->Automatic Performed By: #### 1 001 ####BREANNE MANTILLA W ([id number])[facility] ([employer])ONE [address] Eosinophils/100 WBC (Bld) 1.1 % Normal 0.6-3.8 [facility] Comment on above: Order Comment: Relea se to patient->Automatic Performed By: #### 1 001 ####BREANNE MANTILLA W ([id number])[facility] ([employer])ONE [address] Erythrocyte distribution width (RBC) [Ratio] 14.7 % Normal 11.9-14.8 [facility] Comment on above: Order Comment: Relea se to patient->Automatic Performed By: #### 1 001 ####BREANNE BACCON W ([id number])[facility] ([facility])ONE [address] Hematocrit (Bld) [Volume fraction] 29.9 % Low 35.5-44.6 [facility] Comment on above: Order Comment: Relea se to patient->Automatic Performed By: #### 1 001 ####BREANNE Callahan ([id number])[place] [employer] ([employer])ONE [address] Hemoglobin (Bld) [Mass/Vol] 9.1 g/dL Low 11.4-14.8 [facility] Comment on above: Order Comment: Relea se to patient->Automatic Performed By: #### 1 001 ####BREANNE MANTILLA W ([id number])[facility] ([facility])ONE [address] Immature granulocytes/100 WBC (Bld) 0.8 % High 0.2-0.5 [facility] Comment on above: Order Comment: Relea se to patient->Automatic Result Comment: Jeannine ture Granulocyte Percent includes promyelocytes, myelocytes,and metamyelocytes. IG% > 1.0 indicates a left shift is present. With automated differentials, bands are included in the neutrophil count and not in the Immature Granulocyte Percent. Performed By: #### 1 001 ####BREANNE Callahan ([id number])[place] [employer] ([employer])ONE [address] Lymphocytes (Bld) [#/Vol] 1.68 10*3/uL Normal 1.51-2.99 [facility] Comment on above: Order Comment: Relea se to patient->Automatic Performed By: #### 1 001 ####BREANNE Callahan ([id number])[place] [employer] ([employer])ONE [address] Lymphocytes/100 WBC (Bld) 15.7 % Low 21.8-42.1 [facility] Comment on above: Order Comment: Relea se to patient->Automatic Performed By: #### 1 001 ####BREANNE MANTILLA W ([id number])[facility] ([place] [address] [place] MCH (RBC) [Entitic mass] 24.1 pg Low 25.7-31.2 [facility] Comment on above: Order Comment: Relea se to patient->Automatic Performed By: #### 1 001 ####BREANNE MANTILLA W ([id number])[place] [employer] ([employer])ONE [address] MCHC 30.4 % Low 31.3-34.0 [facility] Comment on above: Order Comment: Relea se to patient->Automatic Performed By: #### 1 001 ####BREANNE MANTILLA W ([id number])[facility] ([employer])ONE [address] MCV (RBC) [Entitic vol] 79.3 fL Low 80.7-93.7 [facility] Comment on above: Order Comment: Relea se to patient->Automatic Performed By: #### 1 001 ####BREANNE BACCON W ([id number])[facility] ([facility])ONE [address] Monocytes (Bld) [#/Vol] 0.96 10*3/uL High 0.36-0.77 [facility] Comment on above: Order Comment: Relea se to patient->Automatic Performed By: #### 1 001 ####BREANNE BACCON W ([id number])[facility] ([facility])ONE [address] Monocytes/100 WBC (Bld) 9.0 % Normal 5.6-10.2 [facility] Comment on above: Order Comment: Relea se to patient->Automatic Performed By: #### 1 001 ####BREANNE BACCON W ([id number])[facility] ([facility])ONE [address] Neutrophils (Bld) [#/Vol] 7.83 10*3/uL High 2.43-6.42 [facility] Comment on above: Order Comment: Relea se to patient->Automatic Performed By: #### 1 001 ####BREANNE BACCON W ([id number])[facility] ([place] [address] [place] Neutrophils/100 WBC (Bld) 73.3 % High 46.0-68.6 [facility] Comment on above: Order Comment: Relea se to patient->Automatic Performed By: #### 1 001 ####BREANNE BACCON W ([id number])[facility] ([place] [address] [place] Nucleated RBC/100 WBC (Bld) [Ratio] 0.2 % High 0.0-0.0 [facility] Comment on above: Order Comment: Relea se to patient->Automatic Performed By: #### 1 001 ####BREANNE MANTILLA W ([id number])[facility] ([facility])ONE [address] Platelet mean volume (Bld) [Entitic vol] 12.2 fL High 9.6-11.9 [facility] Comment on above: Order Comment: Relea se to patient->Automatic Performed By: #### 1 001 ####BREANNE BACDYLAN W ([id number])[facility] ([facility])ONE [address] Platelets (Bld) [#/Vol] 230 10*3/uL Normal 150-400 [facility] Comment on above: Order Comment: Relea se to patient->Automatic Performed By: #### 1 001 ####BREANNE BACDYLAN W ([id number])[facility] ([facility])ONE [address] RBC 3.77 10E12/L Low 4.03-4.91 [facility] Comment on above: Order Comment: Relea se to patient->Automatic Performed By: #### 1 001 ####BREANNE BACDYLAN W ([id number])[facility] ([facility])ONE [address] WBC (Bld) [#/Vol] 10.7 10*3/uL High 4.9-10.0 [facility] Comment on above: Order Comment: Relea se to patient->Automatic Performed By: #### 1 001 ####BREANNE BACCON W ([id number])[facility] ([facility])ONE [address] FERRITINon 12-28-2023 Ferritin [Mass/Vol] 7 ng/mL Low 22-378 [facility] Comment on above: Order Comment: Relea se to patient->Automatic Performed By: #### 3 230 ####BREANNE BACDYLAN W ([id number])[facility] (BEAKER)[place] [address] [facility] Progress Noteon 12-28-2023 [employer] Authentication Interface Message Text Normal [facility] URINE CULTUREon 12-28-2023 Bacteria identified Cx Nom (U) Resistant [facility] Comment on above: Order Comment: Relea se to patient->Automatic Performed By: #### 4 445 ####BREANNE Callahan ([id number])[facility] ([facility])[address] VITAMIN D 25 HYDROXY(VITAMIN D DEFICIENCY)on 12-28-2023 25 [place] Vitamin D 27 NG/ML Low 30-100 [facility] Comment on above: Order Comment: Relea se to patient->Automatic Result Comment: Refe rence ranges provided by [facility] Laboratory are based on Endocrine Society Guidelines:Level: Characterization< 21 ng/mL: Vitamin D [id number] ng/mL: Suboptimal Vitamin D -425 ng/mL: Optimal Vitamin D status>100 ng/mL: Potentially toxic Vitamin D effects Performed By: #### 8 210 ####BREANNE Callahan ([id number])[facility] ([facility])[address] Progress Noteon 12-21-2023 [employer] Authentication Interface Message Text Normal [facility] Progress Noteon 12-17-2023 [employer] Authentication Interface Message Text Normal [facility] 12 Lead EKGon 12-09-2023 12 Lead EKG [facility] [address] [place] [address] 12 Lead EKG 12/09/23 1745 MR#: [id number] Acct: [id number] Name: CATALINA CAPELLAN Rep #: [id number] : 2005 17 From: Sheila Colorado MD Attending Dr: Status: DEP ER Ordering Dr: Sami Beck MD Date: 12/09/23 Location: ED Sex: F C Admitted: Test Reason : Blood Pressure : / mmHG Vent. Rate : 106 BPM Atrial Rate : 106 BPM P-R Int : 126 ms QRS Dur : 084 ms QT Int : 332 ms P-R-T Axes : 027 028 000 degrees QTc Int : 441 ms Sin[address] tachycardia Minor ST changes Probably Normal Confirmed by Sheila Colorado ([id number]), news assignment editor DAYRON LONDON ([id number]) on 12/10/2023 9:45:58 AM Referred By: YENIFER Confirmed By:Sheila Colorado 12/10/23 0945 Date Sheila Colorado MD CC: Dr. Sami Beck MD; Dr. Dian Velez MD Signed Normal [facility] Emergency Department Summary on 12-09-2023 Emergency Department Summary [facility] Medical Records Department [address] [place] [address] Emergency Department Summary 12/09/23 MR#: [id number] Acct: [id number] Name: CATALINA CAPELLAN Rep #: [id number] : 2005 17 From: Sami Beck MD PCP: Dr. Dian Velez MD Status:REG ER Location: ED HPI History of Present Illness Chief Complaint: Chest Pain Informant: patient Narrative Narrative: Healthy 17-year-old with central chest discomfort that started a couple hours ago while she was lying down. Sitting up did not help it, she took some Tums it did not help it. Is radiating into her jaw, she thinks it feels like it is burning may be like reflux but she was concerned because Tums did not make it better. She is 26 weeks , . She is a diabetic and has POTS and states those 2 things are not an issue right now she feels okay otherwise. No dyspnea, palpitations, near-syncope or syncope, sweating, nausea or vomiting. No abdominal issues recently, she is feeling the baby move, no vaginal bleeding or leakage. No problems urinating. [facility] Medical History POTS (postural orthostatic tachycardia syndrome) Type 1 diabetes mellitus Anxiety Home Medications ???Medication ???Instructions ???Recorded ???Last Taken ???Type aspirin 81 mg tablet,delayed 81 mg PO DAILY 12/09/23 Unknown History release cholecalciferol (vitamin D3) 25 25 mcg PO DAILY 12/09/23 Unknown History mcg (1,000 unit) tablet glucagon 3 mg/actuation nasal 3 mg intranasal DAILY PRN 12/09/23 Unknown History spray (Baqsimi) hypoglycemia insulin lispro 100 unit/mL 0 - 50 unit subcut DAILY 12/09/23 Unknown History subcutaneous pen insulin lispro 100 unit/mL 0 - 67 unit subcut UD 12/09/23 Unknown History subcutaneous solution (Humalog U-100 Insulin) ondansetron 4 mg disintegrating 4 mg PO Q6H PRN PRN nausea and 12/09/23 Unknown History tablet vomiting Allergy/AdvReac Type Severity Reaction Status Date / Time No Known Allergies Allergy Verified 12/09/23 17:34 Social History Smoking Status: Never smoker substance use type: does not use ROS ROS ED Constitutional Constitutional ED: Denies chills or fever(s) Eyes Eyes: Denies change in vision or diplopia ENT ENT ED: Denies rhinorrhea or sore throat Cardiovascular Cardiovascular: Reports chest pain; Denies palpitations Respiratory/Chest Respiratory/Chest: Denies cough or dyspnea Gastrointestinal Gastrointestinal: Denies abdominal pain, diarrhea, nausea or vomiting Genitourinary Genitourinary ED: Denies dysuria or hematuria Musculoskeletal Musculoskeletal: Denies back pain or neck pain Integumentary Denies abscess or rash Neurologic Neurologic: Denies headache(s), paresthesias or weakness Psychiatric Psychiatric: Denies anxiety or suicidal thoughts EXAM Physical Exam Const Vital Signs: 12/09/23 17:33 12/09/23 17:54 Temperature 98.2 F Temperature Source Temporal Pulse Rate 112 H Respiratory Rate 16 Respiratory Effort Short of Breath Blood Pressure 123/86 H Blood Pressure Mean 98 Pulse Ox 98 Oxygen Delivery Method Room Air Positive well nourished and well developed General Appearance ED: well developed and NAD HEENT Reports moist mucous membranes normocephalic and atraumatic Eyes PERRL and EOMs intact bilaterally Neck full ROM and supple Resp normal respiratory effort and clear to auscultation bilaterally Resp Narrative: No splinting with deep inspiration Cardio regular rate, regular rhythm and no murmurs Rate: other Other Details: Mild tachycardia GI non-tender GI Narrative: Distended above the umbilicus, benign abdomen Auscultation: normoactive bowel sounds Palpation: soft Back/Spine no CVA tenderness General Back: other FROM Extremity normal to inspection General Extremety ED: Negative for edema, pulses abnormal or tenderness General Extremity: Negative for edema or pulses abnormal Neuro oriented x3, CN's II-XII intact bilaterally and no sensory deficits noted Sensorium / Orientation: awake and alert Motor Exam: strength 5/5 throughout Skin no rashes or lesions noted and no wounds MDM MDM MDM Narrative Medical decision making narrative: Still more likely to be reflux, her EKG is unremarkable, given a GI cocktail. This resolved her discomfort. Patient reassured, given Pepcid 40 mg, and advised to use Pepcid daily as needed in the future if she continues to have symptoms. Rhythm Strip Rhythm Strip: Sinus Tach Rate: 106 Ectopy: None EKG Initial EKG: Attestation: I personally reviewed and interpreted this EKG as follows: Interpretation: No Acute Injury Pattern, Sinus Tachycardia a (more content not included)... Normal [facility] Progress Noteon 11-30-2023 [employer] Authentication Interface Message Text Normal [facility] [facility] Progress Noteon 11-19-2023 [employer] Authentication Interface Message Text No show for telehealth appt today Normal [facility] Progress Noteon 11-17-2023 [employer] Authentication Interface Message Text Normal [facility] FERRITINon 11-12-2023 Ferritin [Mass/Vol] 15 ng/mL Low 25-207 [facility] Comment on above: Order Comment: Relea se to patient->Automatic Performed By: #### 3 230 ####BREANNE [employer] ([id number])Heart[employer] Ferritinon 11-12-2023 Ferritin [Mass/Vol] 15 ng/mL Low [facility] Interpretation and review of laboratory results Abnormal [facility] HEPATITIS B CORE IGM ABon Hep B Core Ab, IgM Non-Reactive Normal NonReactive [facility] Comment on above: Order Comment: Relea se to patient->Automatic Result Comment: Refe rence value: Non-reactiveIgM antibodies to HBc were not detected. Does not exclude the possibility of exposure to HBV. Performed By: #### 8 620 ####BREANNE [employer] ([id number])Valen AnalyticsAKER)[address] HEPATITIS B SURFACE ANTIBODY on 11-12-2023 Hep Bs Antibody, QN <3.50 Normal [facility] Comment on above: Order Comment: Relea se to patient->Automatic Result Comment: Refe rence Value:<8.5 mIU/mL - NegativeIndividual is considered to be not immune to infection with HBV. Performed By: #### 8 630 ####BREANNE AWAISDYLAN W ([id number])[place] [employer] ([employer])[address] Hepatitis Bs Antibody Negative Normal Negative [facility] Comment on above: Order Comment: Relea se to patient->Automatic Result Comment: Refe rence value: Unvaccinated: Negative Vaccinated: PositiveIndividual is considered to be not immune to infection with HBV. Performed By: #### 8 630 ####BREANNE AWAISDYLAN W ([id number])[place] [employer] ([facility])[address] Hepatitis B Surface Antibody on 11-12-2023 HBV surface Ab Ql (S) Negative Negati ve mIU/mL [facility] Comment on above: Reference value: Unv accinated: Negative Vaccinated: Positive Individual is considered to be not immune to infection with HBV. Hep Bs Antibody, QN [facility] Comment on above: Reference Value: <8.5 mIU/mL - Negative Individual is considered to be not immune to infection with HBV. Hepatitis B core IgM Abon HBV core IgM IA Ql Non-Reactive NonReactive [facility] Comment on above: Reference value: Non -reactive IgM antibodies to HBc were not detected. Does not exclude the possibility of exposure to HBV. Interpretation and review of laboratory results Normal [facility] No Panel InformationOrdered By: Background Lab on 11-12-2023 [facility] No Panel Informationon 11-11 [facility] Progress Noteon 11-12-2023 [employer] Authentication Interface Message Text Normal [facility] URINE CULTUREon 11-12-2023 Bacteria identified Cx Nom (U) Resistant [facility] Comment on above: Order Comment: Relea se to patient->Automatic Performed By: #### 4 445 ####BREANNE BACCON W ([id number])[place] [employer] ([employer])ONE [address] VITAMIN B12on 11-12-2023 Cobalamin (Vitamin B12) [Mass/Vol] 276 pg/mL Normal 180-914 [facility] Comment on above: Order Comment: Relea se to patient->Automatic Performed By: #### 3 323 ####BREANNE Pindrop SecurityCON W ([id number])[place] [employer] ([employer])[address] Vitamin W02Kaouqiv By: Backg round Lab on 11-12-2023 Cobalamin (Vitamin B12) [Mass/Vol] 276 pg/mL 180 - 914 PG/ML [facility] Interpretation and review of laboratory results Normal [facility] Progress Noteon 11-10-2023 [employer] Authentication Interface Message Text Normal [facility] Progress Noteon 10-31-2023 [employer] Authentication Interface Message Text Normal [facility] Bacterial vaginosis and vagi nitis rRNA panel Probe (Vag fld)on 10-30-2023 Bacterial vaginosis Ql (Vag fld) [Interp] Not detected Not Detected [facility] C. glabrata DNA FIORELLA+probe Ql (Vag fld) Not detected Not Detected [facility] Jayme sp DNA FIORELLA+probe Ql (Vag fld) Detected Abnormal Not Detected [facility] Interpretation and review of laboratory results Abnormal [facility] T. vaginalis DNA FIORELLA+probe Ql (Vag fld) Not detected Not Detected [facility] Methodology: real-ti me PCR A negative result does not preclude a possible infection. This assay can detect the Jayme species C. albicans, C. tropicalis, C. parapsilosis, and C. dubliniensis but does not differentiate among them. The assay also detects C. glabrata and C. krusei, but does not differentiate between them. Results should be interpreted in conjunction with other clinical data. This test has not been validated for use with specimens collected by patients at home. This test is intended for medical purposes only and is not valid for the evaluation of suspected sexual abuse or for other forensic purposes. [facility] Blood type and Crossmatch nicolle canela (Bld)on 10-30-2023 ABO group Nom (Bld) O [facility] Blood group antibody screen GEL Ql Negative [facility] D Ag Ql (RBC) Positive [facility] CBC panel Auto (Bld)on 10-29 Erythrocyte distribution width (RBC) [Ratio] 14.5 % 11.5 - 15.0 % [facility] Hematocrit (Bld) [Volume fraction] 31.5 % Low 37.0 - 46.0 % [facility] Hemoglobin (Bld) [Mass/Vol] 10.2 g/dL Low 12.0 - 15.0 g/dL [facility] Interpretation and review of laboratory results Abnormal [facility] MCH (RBC) [Entitic mass] 26.1 pg 25.0 - 35.0 pg [facility] MCHC (RBC) [Mass/Vol] 32.4 % 31.0 - 37.0 % [facility] MCV (RBC) [Entitic vol] 80.6 fL 78.0 - 96.0 fL [facility] Platelet mean volume (Bld) [Entitic vol] 11.7 fL 9.0 - 12.7 fL [facility] Platelets (Bld) [#/Vol] 261 10*3/uL 150 - 450 10*3/uL [facility] RBC (Bld) [#/Vol] 3.91 10*6/uL Low 4.10 - 4.8 0 10*6/uL [facility] WBC (Bld) [#/Vol] 12.4 10*3/uL 4.5 - 13.0 10*3/uL [facility] Comprehensive metabolic 1998 panelon 10-30-2023 Albumin [Mass/Vol] 3.7 g/dL 3.5 - 5.0 g/dL [facility] ALP [Catalytic activity/Vol] 80 U/L 38 - 126 U/L [facility] ALT [Catalytic activity/Vol] 12 U/L 0 - 34 U/L [facility] Anion gap [Moles/Vol] 8 mmol/L 3 - 13 mmol/L [facility] AST [Catalytic activity/Vol] 38 U/L 15 - 46 U/L [facility] Bilirubin [Mass/Vol] 0.7 mg/dL 0.2 - 1 .3 mg/dL [facility] Calcium [Mass/Vol] 9.6 mg/dL 8.4 - 10. 4 mg/dL [facility] Chloride [Moles/Vol] 103 mmol/L 98 - 10 7 mmol/L [facility] CO2 [Moles/Vol] 21 mmol/L Low 22 - 30 mmol/L [facility] Creatinine [Mass/Vol] 0.26 mg/dL Low 0.52 - 1.04 mg/dL [facility] GFR/1.73 sq M.predicted MDRD (S/P/Bld) [Vol rate/Area] - PINF [facility] Comment on above: Calculation based on the Chronic Kidney Disease Epidemiology Collaboration (CKD-EPI) equation refit without adjustment for race Glucose [Mass/Vol] 96 mg/dL 70 - 100 mg/dL [facility] Interpretation and review of laboratory results Abnormal [facility] Potassium [Moles/Vol] 3.9 mmol/L 3.5 - 5.1 mmol/L [facility] Protein [Mass/Vol] 7.4 g/dL 6.3 - 8.2 g/dL [facility] Sodium [Moles/Vol] 132 mmol/L Low 135 - 145 mmol/L [facility] Urea nitrogen [Mass/Vol] 5 mg/dL Low 7 - 17 mg/dL [facility] Slightly Hemolyzed. Interpret ALBUMIN, ALKALINE PHOSPHATASE, AST, POTASSIUM, and TOTAL PROTEIN with caution. [facility] Laboratory - Chemistry and C hemistry - challengeon 10-30-2023 Glucose [Mass/Vol] 187 mg/dL High 70 - 100 mg/dL [facility] Glucose [Mass/Vol] 144 mg/dL High 70 - 100 mg/dL [facility] Average glucose Estimated from glycated hemoglobin (Bld) [Mass/Vol] 128 mg/dL [facility] TSH Qn 0.947 m[IU]/L [facility] Glucose [Mass/Vol] 102 mg/dL High 70 - 100 mg/dL [facility] Laboratory - Hematology and Cell countson 10-30-2023 HbA1c (Bld) [Mass fraction] 6.1 % High NINF - 5.7 % [facility] Comment on above: Normal less than 5.7 % Prediabetes 5.7% to 6.4% Diabetes 6.5% or higher --HgbA1C levels may not be accurate in patients who have renal disease, received recent blood transfusions, are anemic, or who have dyshemoglobinemia. N. gonorrhoeae DNA FIORELLA+probe Ql (Cervical mucus)on 10-30-2023 C. trachomatis DNA FIORELLA+probe Ql (Unsp spec) Not detected Not Detected [facility] Interpretation and review of laboratory results Normal [facility] N gonorrhoeae, DNA Probe Not detected Not Detected [facility] Methodology: real-ti me PCR This test is intended for medical purposes only and is not intended for the evaluation of suspected sexual abuse or for other forensic purposes. In certain contexts, culture may be required to meet applicable laws and regulations for diagnosis of C. trachomatis and N. gonorrhoeae infections. Per 2014 CDC recommmendations, this test does not include confirmation of positive results by an alternative nucleic acid target. A negative result does not exclude the possibility of infection. A result of invalid indicates that a new specimen should be collected if clinically indicated. [facility] No Panel Informationon 10-29 Interpretation and review of laboratory results Abnormal [facility] Performed by: [facility], [address] [place] [address] CLIA ID: [id number] [facility] Interpretation and review of laboratory results Abnormal [facility] Performed by: [facility], [address] [place] [address] CLIA ID: [id number] [facility] Interpretation and review of laboratory results Abnormal [facility] Interpretation and review of laboratory results Abnormal [facility] Performed by: [facility], [address] [place] [address] CLIA ID: [id number] [facility] Radiology Study observation (narrative) [facility] Radiology Study observation (narrative) [facility] Radiology Study observation (narrative) [facility] Progress Noteon 10-30-2023 [employer] Authentication Interface Message Text Normal [facility] TSH Qnon 10-30-2023 Interpretation and review of laboratory results Normal [facility] Hemoglobin A1con 10-26-2023 HbA1c Elph (Bld) [Mass fraction] 6.3 % High 0.0 - 5.6 % [facility] Comment on above: Reference Interval: <5.7% 5.7-6.4% Prediabetes > or = 6.5% Diabetes Targets for diabetes management: Type I <7.5% Type II <7.0% Interpretation and review of laboratory results Abnormal [facility] Release to patient->Automatic [facility] HbA1c (Bld) [Mass fraction] 6.3 % High 0.0-5.6 [facility] Comment on above: Order Comment: Relea se to patient->[id number]&Blood Result Comment: Refe rence Interval:<5.7%5.7-6.4% Prediabetes> or = 6.5% DiabetesTargets for diabetes management:Type I <7.5%Type II <7.0% Performed By: #### H BA1C ####[address] [phone] No Panel Informationon 10-25 Release to patient->Automatic [facility] Progress Noteon 10-26-2023 [employer] Authentication Interface Message Text Normal [facility] [employer] Authentication Interface Message Text Normal [facility] T4, freeon 10-26-2023 Free T4 [Mass/Vol] 1.1 ng/dL 0.8 - 1.5 ng/dL [facility] T4,Freeon 10-26-2023 Free T4 [Mass/Vol] 1.1 ng/dL Normal 0.8-1.5 [facility] Comment on above: Order Comment: Relea se to patient->[id number]&Blood Performed By: #### T 4FR ####[address] [phone] TSHon 10-26-2023 TSH Qn 0.909 m[IU]/L [facility] TSH 0.909 uIU/mL Normal 0.500-4.300 [facility] Comment on above: Order Comment: Relea se to patient->[id number]&Blood Performed By: #### T SH ####[address] [phone] Progress Noteon 10-20-2023 [employer] Authentication Interface Message Text Normal [facility] UA DIP, URINE (POC)on 2023 BILIRUBIN UA (POCT) Negative Negative [facility] CLARITY UA (POCT) Clear [facility] COLOR UA (POCT) Dark yellow [facility] GLUCOSE UA (POCT) Negative Negative mg/dL [facility] Hemoglobin Ql (U) Negative Negative [facility] Interpretation and review of laboratory results Abnormal [facility] KETONE UA (POCT) 40 mg/dL Abnormal Negative [facility] LEUKOCYTES UA (POCT) Small Abnormal [facility] NITRITE UA (POCT) Negative Negative [facility] PH UA (POCT) 7.0 4.5 - 8.0 [facility] Protein Ql (U) Negative Negative mg/dL [facility] SPECIFIC GRAVITY UA (POCT) 1.010 1.005 - 1.030 [facility] UROBILINOGEN UA (POCT) 0.2 Normal E.U./d L [facility] Location:[address], [address] [place] [address] POINT OF CARE [facility] Progress Noteon 10-13-2023 [employer] Authentication Interface Message Text Normal [facility] Progress Noteon 09-28-2023 [employer] Authentication Interface Message Text Normal [facility] Basic metabolic 2000 panelon 09-22-2023 Anion gap [Moles/Vol] 12 mmol/L 10 - 20 mmol/L [facility] Calcium [Mass/Vol] 8.4 mg/dL 8.4 - 10. 2 mg/dL [facility] Chloride [Moles/Vol] 108 mmol/L 98 - 10 8 mmol/L [facility] Creatinine [Mass/Vol] 0.37 mg/dL Low 0.50 - 1.00 mg/dL [facility] GFR/1.73 sq M.predicted CKD-EPI (S/P/Bld) [Vol rate/Area] 150 - PINF [facility] Comment on above: Estimated GFR was ca lculated using the 2020 CKD-EPI creatinine equation. Glucose [Mass/Vol] 137 mg/dL High 65 - 99 mg/dL [facility] HCO3 [Moles/Vol] 21 mmol/L 21 - 32 mmol/L [facility] Interpretation and review of laboratory results Abnormal [facility] Potassium [Moles/Vol] 3.5 mmol/L 3.5 - 5.1 mmol/L [facility] Sodium [Moles/Vol] 137 mmol/L 135 - 145 mmol/L [facility] Urea nitrogen [Mass/Vol] 3 mg/dL Low 8 - 25 mg/dL [facility] Urea nitrogen/Creatinine [Mass ratio] 8.1 mg/mg Low 10.0 - 20.0 [facility] has implemented the eGFR calculation approach that does not have a coefficient for race that conforms to the NKF-ASN Task Force Recommendations. [facility] EKGon 09-22-2023 [facility] Glucose (Bld) [Mass/Vol]on 0 09-22-2023 Glucose [Mass/Vol] 133 mg/dL High 65 - 99 mg/dL [facility] Interpretation and review of laboratory results Abnormal [facility] Glucose [Mass/Vol] 88 mg/dL 65 - 99 mg/dL [facility] Interpretation and review of laboratory results Normal [facility] Glucose [Mass/Vol] 127 mg/dL High 65 - 99 mg/dL [facility] Interpretation and review of laboratory results Abnormal [facility] Magnesiumon 09-22-2023 Magnesium [Mass/Vol] 1.6 mg/dL 1.6 - 2 .4 mg/dL [facility] No Panel Informationon 09-21 Interpretation and review of laboratory results Normal [facility] Phosphoruson 09-22-2023 Phosphate [Mass/Vol] 3.3 mg/dL 2.7 - 4 .5 mg/dL [facility] Basic metabolic 2000 panelon 09-21-2023 Anion gap [Moles/Vol] 18 mmol/L 10 - 20 mmol/L [facility] Calcium [Mass/Vol] 9.1 mg/dL 8.4 - 10. 2 mg/dL [facility] Chloride [Moles/Vol] 101 mmol/L 98 - 10 8 mmol/L [facility] Creatinine [Mass/Vol] 0.43 mg/dL Low 0.50 - 1.00 mg/dL [facility] GFR/1.73 sq M.predicted CKD-EPI (S/P/Bld) [Vol rate/Area] 145 - PINF [facility] Comment on above: Estimated GFR was ca lculated using the 2020 CKD-EPI creatinine equation. Glucose [Mass/Vol] 98 mg/dL 65 - 99 mg/dL [facility] HCO3 [Moles/Vol] 21 mmol/L 21 - 32 mmol/L [facility] Interpretation and review of laboratory results Abnormal [facility] Potassium [Moles/Vol] 3.6 mmol/L 3.5 - 5.1 mmol/L [facility] Sodium [Moles/Vol] 136 mmol/L 135 - 145 mmol/L [facility] Urea nitrogen [Mass/Vol] 5 mg/dL Low 8 - 25 mg/dL [facility] Urea nitrogen/Creatinine [Mass ratio] 11.6 mg/mg 10.0 - 20.0 [facility] has implemented the eGFR calculation approach that does not have a coefficient for race that conforms to the NKF-ASN Task Force Recommendations. [facility] Beta-Hydroxybutyrateon 09-20 Beta hydroxybutyrate [Moles/Vol] 0.3 mmol/L 0.0 - 0.3 mmol/L [facility] CBC Auto Differentialon 08-28 Basophils (Bld) [#/Vol] 0.00 10*3/uL [facility] Basophils/100 WBC (Bld) 0.0 % [facility] Eosinophils (Bld) [#/Vol] 0.12 10*3/uL [facility] Eosinophils/100 WBC (Bld) 1.2 % [facility] Erythrocyte distribution width (RBC) [Entitic vol] 16.0 % High 11.6 - 14.8 % [facility] Hematocrit (Bld) [Volume fraction] 37.0 % 36.0 - 46.0 % [facility] Hemoglobin (Bld) [Mass/Vol] 12.1 g/dL 12.0 - 16.0 g/dL [facility] Immature granulocytes (Bld) [#/Vol] 0.04 10*3/uL [facility] Immature granulocytes/100 WBC (Bld) 0.40 % [facility] Comment on above: The IG parameter is the percentage of metamyelocytes, myelocytes and promyelocytes. An immature granulocyte count (IG) of 1% or more suggests the possibility of infection, an IG count of 3% is very likely related to an infection. Interpretation and review of laboratory results Abnormal [facility] Lymphocytes (Bld) [#/Vol] 1.74 10*3/uL [facility] Lymphocytes/100 WBC (Bld) 17.5 % [facility] MCH (RBC) [Entitic mass] 26.9 pg 25.0 - 35.0 pg [facility] MCHC (RBC) [Mass/Vol] 32.7 g/dL 31.0 - 37.0 g/dL [facility] MCV (RBC) [Entitic vol] 82.2 fL 78.0 - 102.0 fL [facility] Monocytes (Bld) [#/Vol] 0.81 10*3/uL [facility] Monocytes/100 WBC (Bld) 8.2 % [facility] Neutrophils (Bld) [#/Vol] 7.22 10*3/uL High [facility] Neutrophils/100 WBC (Bld) 72.7 % [facility] Nucleated RBC (Bld) [#/Vol] 0.00 10*3/uL [facility] Nucleated RBC/100 WBC (Bld) [Ratio] 0.0 % [facility] Platelet mean volume (Bld) [Entitic vol] 12.2 fL 9.4 - 12.4 fL [facility] Platelets (Bld) [#/Vol] 223 10*3/uL [facility] RBC (Bld) [#/Vol] 4.50 10*6/uL [facility] WBC (Bld) [#/Vol] 9.93 10*3/uL [facility] COVID-19/INFLUENZA A,B [facility]LEC [facility] 09-21-2023 SARS-CoV-2 (COVID-19) Ab IA Ql SARS-COV-2 (YESY): Not Detected INFLUENZA A (YESY): Not Detected INFLUENZA B (YESY): Not Detected Normal Not Detected [facility] Comment on above: Order Comment: This test was performed under the FDA's Emergency Use Authorization (EUA). Testing was performed using the [employer] Star SARS-CoV-2 RT-PCR AND Influenza A/B Nucleic Acid Test on the Star Yesy System. This test has not been approved for use in asymptomatic patients and its performance in this patient population has not been evaluated. Negative results do not rule out the presence of SARS-CoV-2, influenza A, and/or influenza B. Fact sheets for the EUA can be found at the following links: For Healthcare Providers: https://www.fda.gov/media/087239/download For Patients: https://www.fda.gov/media/604722/download Performed By: #### L [id number] #### [facility] [address] [address] Isabel Campbell M.D. [id number] EKG 12-leadon 09-21-2023 Atrial Rate 110 BPM [facility] Interpretation and review of laboratory results Abnormal [facility] P [place] 52 degrees [facility] P-R Interval 112 ms [facility] Q-T Interval 336 ms [facility] QRS Duration 86 ms [facility] QTC Calculation (Bezet) 454 ms [facility] R [place] 62 degrees [facility] T [place] 16 degrees [facility] Ventricular Rate 110 BPM [facility] Javier Sandra MD 09/21/2023 4:13 PM EKG 12-lead Date/Time: 09/21/2023 12:31 PM Performed by: Javier Sandra MD Authorized by: Javier Sandra MD Interpreted by ED attending physician Rhythm: sinus rhythm and sinus tachycardia BPM: 110 ST Segments: ST segments normal Clinical impression: abnormal ECG and sinus tachycardia MUSE [facility] Glucose (Bld) [Mass/Vol]on 0 09-21-2023 Glucose [Mass/Vol] 118 mg/dL High 65 - 99 mg/dL [facility] Interpretation and review of laboratory results Abnormal [facility] Glucose [Mass/Vol] 99 mg/dL 65 - 99 mg/dL [facility] Interpretation and review of laboratory results Normal [facility] Hepatic function 2000 panelO rdered By: Giovani Laughlin on 09-21-2023 Albumin [Mass/Vol] 3.8 g/dL 3.2 - 4.5 g/dL [facility] ALP [Catalytic activity/Vol] 72 U/L 40 - 140 U/L [facility] ALT [Catalytic activity/Vol] 5 U/L 0-35 U/L [facility] AST [Catalytic activity/Vol] 16 U/L 0-35 U/L [facility] Bilirubin [Mass/Vol] 0.4 mg/dL 0.0 - 1 .3 mg/dL [facility] Bilirubin.conjugated [Mass/Vol] mg/dL 0.0 - 0.4 mg/dL [facility] Interpretation and review of laboratory results Normal [facility] Protein [Mass/Vol] 7.5 g/dL 6.0 - 8.0 g/dL [facility] Influenza virus A and B RNA and SARS-CoV-2 (COVID-19) N gene panel [employer]LL[employer]+probe (Resp)Ordered By: Melinda Ji on 09-21-2023 FLUAV RNA FIORELLA+probe Ql (Unsp spec) Not detected Not Detected [facility] FLUBV RNA FIORELLA+probe Ql (Unsp spec) Not detected Not Detected [facility] Interpretation and review of laboratory results Normal [facility] SARS-CoV-2 (COVID-19) RNA FIORELLA+probe Ql (Resp) Not detected Not Detected [facility] This test was perfor med under the FDA's Emergency Use Authorization (EUA). Testing was performed using the Selena Star SARS-CoV-2 RT-PCR & Influenza A/B Nucleic Acid Test on the Star Yesy System. This test has not been approved for use in asymptomatic patients and its performance in this patient population has not been evaluated. Negative results do not rule out the presence of SARS-CoV-2, influenza A, and/or influenza B. Fact sheets for the EUA can be found at the following links: For Healthcare Providers: https://www.fda.gov/med ia/104009/download For Patients: https://www.fda.gov/med ia/512756/download [facility] Lipaseon 09-21-2023 Lipase [Catalytic activity/Vol] 28 U/L 15 - 65 U/L [facility] Magnesium Levelon 09-21-2023 Magnesium [Mass/Vol] 1.6 mg/dL 1.6 - 2 .4 mg/dL [facility] No Panel Informationon 09-20 Extra Tube Hold for add-ons. [facility] Comment on above: Auto resulted. [facility] Interpretation and review of laboratory results Normal [facility] Obtain VBG and performon [facility] POC Venous Blood Gas Panel-P ulmon 09-21-2023 Base excess Calc (BldV) [Moles/Vol] 1.0 mmol/L -2.0 - 2.0 [facility] Calcium.ionized [Mass/Vol] 4.7 mg/dL 4.5 - 5.3 mg/dL [facility] Carboxyhemoglobin (BldA) [Mass fraction] 1.2 NINF [facility] Comment on above: Reference Ranges: Suburban Non-smokers: <1.5% Smokers: 1.5-5.0% Heavy Smokers: 5.0-9.0% Chloride [Moles/Vol] 105 mmol/L 98 - 10 8 mmol/L [facility] CO2 (BldV) [Partial pressure] 35.8 mm[Hg] Low [facility] Glucose post fast [Mass/Vol] 91 mg/dL 65 - 99 mg/dL [facility] HCO3 (Bld) [Moles/Vol] 24.8 mmol/L 24.0 - 28.0 mmol/L [facility] Hematocrit (BldA) [Volume fraction] 36.6 % 36.0 - 46.0 % [facility] Hemoglobin (Bld) [Mass/Vol] 11.9 g/dL Low 12.0 - 16.0 g/dL [facility] Inhaled oxygen concentration 21 % [facility] Interpretation and review of laboratory results Abnormal [facility] Lactate [Moles/Vol] 0.6 mmol/L 0.6 - 2. 0 mmol/L [facility] Methemoglobin (BldA) [Mass fraction] % 0.0 - 2.0 % [facility] Oxygen (BldV) [Partial pressure] 54 mm[Hg] High [facility] Oxygen saturation in Venous blood 89.3 % High 40.0 - 70.0 % [facility] Oxyhemoglobin (BldA) [Mass fraction] 87.9 % No established reference range [facility] pH (BldV) 7.45 [pH] High 7.32 - 7.42 [facility] Potassium [Moles/Vol] 3.4 mmol/L Low 3.5 - 5.1 mmol/L [facility] Sodium [Moles/Vol] 137 mmol/L 135 - 145 mmol/L [facility] Specimen source Nom (Unsp spec) Not specified [facility] Troponinon 09-21-2023 Troponin T ng/L NINF - 14 ng/L [facility] Troponin T Interpretation Normal [facility] UrinalysisOrdered By: Valeria Foster on 09-21-2023 Bacteria Auto Ql (U) Many Abnormal None Seen /hpf [facility] Bilirubin Ql (U) Negative Negative [facility] th Clarity Refractometry automated (U) Cloudy Abnormal Clear [facility] Color (U) Yellow Colorless, Yellow [facility] Crystals.amorphous Computer assisted (U) [#/Area] Few Abnormal None Seen, Rare /hpf [facility] Epithelial cells.renal Computer assisted (U) [#/Area] High [facility] Epithelial cells.squamous Auto (Urine sed) [#/Area] 14 High [facility] Glucose Auto test strip (U) [Mass/Vol] Negative Negative mg/dL [facility] Hemoglobin Auto test strip Ql (U) Negative Negative [facility] Interpretation and review of laboratory results Abnormal [facility] Ketones (U) [Mass/Vol] 20 mg/dL Abnormal Negative [facility] Leukocyte esterase Auto test strip Ql (U) Moderate Abnormal Negative [facility] h Mucus Auto (Urine sed) [#/Area] Few Abnormal None Seen, Rare /lpf [facility] Nitrite Auto test strip Ql (U) Negative Negative [facility] pH (U) 7.0 [pH] 5.0 - 7.0 [facility] Protein (U) [Mass/Vol] Negative Negative mg/d L [facility] RBC Auto (Urine sed) [#/Area] 19 High [facility] Specific gravity (U) [Rel density] 1.016 1.005 - 1.025 [facility] Transitional cells Computer assisted (U) [#/Area] [facility] Urobilinogen (U) [Mass/Vol] mg/dL NINF - 2.0 mg/dL [facility] WBC Auto (Urine sed) [#/Area] 15 High [facility] Microscopic examinat ion is performed on all urinalysis samples and only positive findings are reported. The test for blood on the chemical analytic portion of urinalysis may also be positive due to hemoglobinuria and myoglobinuria and if red blood cells are present they are quantified by microscopic examination. [facility] Urine Drug Screenon 09-21-19 24 Amphetamines Ql (U) Not detected None Detected [facility] Comment on above: Urine Amphetamine Cu toff: < 1000 ng/mL = None Detected Barbiturates Screen Ql (U) Not detected None Detected [facility] Comment on above: Urine Barbiturates C utoff: < 200 ng/mL = None Detected Benzodiazepines Ql (U) Not detected None Detect ed [facility] Comment on above: Urine Benzodiazepine Cutoff: < 200 ng/mL = None Detected Buprenorphine Ql (U) Not detected None Detected [facility] Comment on above: Urine Buprenorphine Cutoff: < 5 ng/mL = None Detected Cannabinoids Screen Ql (U) Not detected None Detected [facility] Comment on above: Urine Cannabinoids C utoff: < 50 ng/mL = None Detected Cocaine Ql (U) Not detected None Detected [facility] Comment on above: Urine Cocaine Cutoff : < 300 ng/mL = None Detected fentaNYL+Norfentanyl Screen Ql (U) Not detected None Detected [facility] Comment on above: Urine Fentanyl Cutof f: < 1 ng/mL = None Detected Interpretation and review of laboratory results Normal [facility] Methadone Screen Ql (U) Not detected None Detected [facility] Comment on above: Urine Methadone Cuto ff: < 300 ng/mL = None Detected Opiates Screen Ql (U) Not detected None Detecte d [facility] Comment on above: Urine Opiates Cutoff : < 300 ng/mL = None Detected oxyCODONE Ql (U) Not detected None Detected [facility] Comment on above: Urine Oxycodone Cuto ff: < 100 ng/mL = None Detected Screen results shoul d be used for treatment purposes only. [facility] Progress Noteon 09-20-2023 [employer] Authentication Interface Message Text Normal [facility] Progress Noteon 09-14-2023 [employer] Authentication Interface Message Text Normal [facility] ED Provider Progress Noteon 09-07-2023 [employer] Authentication Interface Message Text Normal [facility] CBC W Auto Differential pane l (Bld)on 09-06-2023 Basophils (Bld) [#/Vol] 0.0 10*3/uL 0.0 - 0.1 10*3/uL [facility] Basophils/100 WBC (Bld) 0.0 % 0.0 - 1.0 % [facility] [employer] Eosinophils (Bld) [#/Vol] 0.1 10*3/uL 0.0 - 0.3 10*3/uL [facility] Eosinophils/100 WBC (Bld) 1.7 % 0.0 - 3.0 % [facility] [employer] Erythrocyte distribution width (RBC) [Ratio] 16.5 % High 11.5 - 15.0 % [facility] [employer] Hematocrit (Bld) [Volume fraction] 36.6 % Low 37.0 - 46.0 % [facility] [employer] Hemoglobin (Bld) [Mass/Vol] 11.7 g/dL Low 12.0 - 15.0 g/dL [facility] Immature granulocytes (Bld) [#/Vol] 0.0 10*3/uL NINF - 0.1 10*3/uL [facility] Immature granulocytes/100 WBC (Bld) 0.4 % 0.0 - 2.0 % [facility] [employer] Interpretation and review of laboratory results Abnormal [facility] Lymphocytes (Bld) [#/Vol] 1.6 10*3/uL Low 2.5 - 4.5 10*3/uL [facility] Lymphocytes/100 WBC (Bld) 20.1 % Low 25.0 - 45.0 % [facility] [employer] MCH (RBC) [Entitic mass] 25.9 pg 25.0 - 35.0 pg [facility] [employer] MCHC (RBC) [Mass/Vol] 32.0 % 31.0 - 37.0 % [facility] [employer] MCV (RBC) [Entitic vol] 81.0 fL 78.0 - 96.0 fL [facility] Monocytes (Bld) [#/Vol] 0.8 10*3/uL High 0.3 - 0.6 10*3/uL [facility] Monocytes/100 WBC (Bld) 9.7 % High 3.0 - 6.0 % [facility] Neutrophils (Bld) [#/Vol] 5.5 10*3/uL 3.4 - 6.1 10*3/uL [facility] Neutrophils/100 WBC (Bld) 68.1 % High 34.0 - 64.0 % [facility] [employer] Nucleated RBC/100 WBC (Bld) [Ratio] 0.0 % [facility] [employer] Platelet mean volume (Bld) [Entitic vol] 11.7 fL 9.0 - 12.7 fL [facility] Platelets (Bld) [#/Vol] 218 10*3/uL 150 - 450 10*3/uL [facility] RBC (Bld) [#/Vol] 4.52 10*6/uL 4.10 - 4.8 0 10*6/uL [facility] WBC (Bld) [#/Vol] 8.1 10*3/uL 4.5 - 13.0 10*3/uL [facility] CTA Chest vessels WO and Sindy slater ontrast Michaelle 09-06-2023 Patient Name: CATALINA CAPELLAN : 2005 Exam Date/Time: 09/06/2023 18:48 Procedure: CT CHEST ANGIOGRAM W AND/OR CONSUELO IV CONTRAST Ordering Provider: GAO MARK Reason For Exam: Pulmonary embolism (PE) suspected, positive D-dimer CTA CHEST WITH CONTRAST CLINICAL INDICATION: Chest pain and shortness of breath. Positive d-dimer TECHNIQUE: Axial CT images through the were obtained from the lung apices through the upper abdomen after a bolus tracked intravenous contrast injection over the pulmonary arteries. 75 cc of Isovue 370 contrast was given intravenously. Three-dimensional and surface-shaded reconstructions were performed by myself on a separate workstation at the time of dictation. Dose reduction was employed with automated exposure control. COMPARISON: None. FINDINGS: Limitations: Somewhat limited by motion artifact and streak artifact. Heart/mediastinum: Heart size is within normal limits. Thoracic aorta and pulmonary trunk are normal in caliber. No filling defects within the pulmonary arterial tree to the level of the segmental and subsegmental branches. Suspect residual thymic tissue anterior mediastinum. A few prominent mediastinal and perihilar lymph nodes. Lungs/pleura: No consolidation, pleural effusions, or pneumothorax. Atelectasis most pronounced at the lung bases dependently. Central tracheobronchial tree appears patent. Visualized upper abdomen: Visualized liver is homogeneous. Spleen appears within normal limits. No mass or nodule in the visualized adrenal glands. Slight gaseous distention involving the distal stomach. Mild to moderate retained colonic stool. Osseous structures/soft tissues: Osseous structures are age appropriate and intact. No suspicious bulky axillary adenopathy. [facility] Mayuri Shen MD - 09/06/2023 Patient Name: CATALINA CAPELLAN : 2005 Exam Date/Time: 09/06/2023 18:48 Procedure: CT CHEST ANGIOGRAM W AND/OR WO IV CONTRAST Ordering Provider: GAO MARK Reason For Exam: Pulmonary embolism (PE) suspected, positive D-dimer CTA CHEST WITH CONTRAST CLINICAL INDICATION: Chest pain and shortness of breath. Positive d-dimer TECHNIQUE: Axial CT images through the were obtained from the lung apices through the upper abdomen after a bolus tracked intravenous contrast injection over the pulmonary arteries. 75 cc of Isovue 370 contrast was given intravenously. Three-dimensional and surface-shaded reconstructions were performed by myself on a separate workstation at the time of dictation. Dose reduction was employed with automated exposure control. COMPARISON: None. FINDINGS: Limitations: Somewhat limited by motion artifact and streak artifact. Heart/mediastinum: Heart size is within normal limits. Thoracic aorta and pulmonary trunk are normal in caliber. No filling defects within the pulmonary arterial tree to the level of the segmental and subsegmental branches. Suspect residual thymic tissue anterior mediastinum. A few prominent mediastinal and perihilar lymph nodes. Lungs/pleura: No consolidation, pleural effusions, or pneumothorax. Atelectasis most pronounced at the lung bases dependently. Central tracheobronchial tree appears patent. Visualized upper abdomen: Visualized liver is homogeneous. Spleen appears within normal limits. No mass or nodule in the visualized adrenal glands. Slight gaseous distention involving the distal stomach. Mild to moderate retained colonic stool. Osseous structures/soft tissues: Osseous structures are age appropriate and intact. No suspicious bulky axillary adenopathy. IMPRESSION: 1. Motion and streak artifact limit evaluation to some extent. No CTA evidence of acute pulmonary embolism to the level of the segmental and subsegmental branches. 2. No consolidation or pleural effusions. Report Dictated on Electronically Signed By: Ajay Shen MD Electronically Signed Date/Time: 09/06/2023 6:56 PM EDT [facility] Radiology Study observation (narrative) [facility] CTA Chest vessels WO and W c ontrast IVOrdered By: Mayuri Shen on 09-06-2023 [facility] Work Phone: Comprehensive metabolic 1998 panelon 09-06-2023 Albumin [Mass/Vol] 4.0 g/dL 3.5 - 5.0 g/dL [facility] ALP [Catalytic activity/Vol] 62 U/L 38 - 126 U/L [facility] ALT [Catalytic activity/Vol] 12 U/L 0 - 34 U/L [facility] Anion gap [Moles/Vol] 10 mmol/L 3 - 13 mmol/L [facility] AST [Catalytic activity/Vol] 20 U/L 15 - 46 U/L [facility] Bilirubin [Mass/Vol] 0.3 mg/dL 0.2 - 1 .3 mg/dL [facility] Calcium [Mass/Vol] 8.9 mg/dL 8.4 - 10. 4 mg/dL [facility] Chloride [Moles/Vol] 103 mmol/L 98 - 10 7 mmol/L [facility] CO2 [Moles/Vol] 20 mmol/L Low 22 - 30 mmol/L [facility] Creatinine [Mass/Vol] 0.43 mg/dL Low 0.52 - 1.04 mg/dL [facility] GFR/1.73 sq M.predicted MDRD (S/P/Bld) [Vol rate/Area] - PINF [facility] Comment on above: Calculation based on the Chronic Kidney Disease Epidemiology Collaboration (CKD-EPI) equation refit without adjustment for race Glucose [Mass/Vol] 120 mg/dL High 70 - 100 mg/dL [facility] Interpretation and review of laboratory results Abnormal [facility] Potassium [Moles/Vol] 3.5 mmol/L 3.5 - 5.1 mmol/L [facility] Protein [Mass/Vol] 7.7 g/dL 6.3 - 8.2 g/dL [facility] Sodium [Moles/Vol] 133 mmol/L Low 135 - 145 mmol/L [facility] Urea nitrogen [Mass/Vol] 4 mg/dL Low 7 - 17 mg/dL [facility] Fibrin D-dimer FEU (PPP) [Ma ss/Vol]on 09-06-2023 Interpretation and review of laboratory results Abnormal [facility] D-Dimer values of <0.50 mg/L FEU can be used in combination with a pre-test probability model (e.g. Well's) to exclude pulmonary embolism (PE) disease, as well as an aid in the diagnosis of deep vein thrombosis (DVT). [facility] Laboratory - Chemistry and C hemistry - challengeon 09-06-2023 Troponin I.cardiac [Mass/Vol] ng/mL NINF - 0.034 ng/mL [facility] Glucose [Mass/Vol] 61 mg/dL Low 70 - 100 mg/dL [facility] HCG.beta subunit Qn 827689 m[IU]/mL Femal es <=5 mIU/mL [facility] Troponin I.cardiac [Mass/Vol] ng/mL NINF - 0.034 ng/mL [facility] Laboratory - Coagulationon 0 09-06-2023 Fibrin D-dimer FEU (PPP) [Mass/Vol] 0.98 mg/L High NINF - 0.50 mg/L [facility] Laboratory - Microbiology an d Antimicrobial susceptibilityon 09-06-2023 FLUAV RNA FIORELLA+probe Ql (Resp) Not detected Not Detected [facility] FLUBV RNA FIORELLA+probe Ql (Resp) Not detected Not Detected [facility] RSV RNA FIORELLA+probe Ql (Resp) Not detected Not Detected [facility] SARS-CoV-2 (COVID-19) RNA FIORELLA+probe Ql (Resp) Not detected Not Detected [facility] No Panel Informationon 09-05 P [place] 27 degrees [facility] SD Interval 108 ms [facility] QRS [place] 32 degrees [facility] QRSD Interval 86 ms [facility] QT Interval 334 ms [facility] QTC Interval 443 ms [facility] T Wave [place] -17 degrees [facility] Sinus tachycardia Borderline T abnormalities, inferior leads Electronically Signed On 09-06-2023 21:37:45 EDT by Nguyen Gao CV Nguyen Wasserman MD - 09/06/2023 IMPRESSION: Sinus tachycardia Borderline T abnormalities, inferior leads Electronically Signed On 09-06-2023 21:37:45 EDT by Nguyen Gao [facility] Interpretation and review of laboratory results Abnormal [facility] Performed by: [facility], [address] [place] [address] CLIA ID: [id number] [facility] Values in should double every 2 to 3 days for the first 6 weeks. Elevated concentrations of human chorionic gonadotropin (hCG) measured in the first trimester of are observed in normal , but may serve as an indication of chorionic carcinoma, hydatiform mole, or multiple . Decreasing hCG concentrations indicate threatened or missed , recent termination of , ectopic , gestosis or intrauterine . Danita- and postmenopausal females may have detectable hCG concentrations (< or = to 14 mIU/mL) due to pituitary production of hCG. Serum follicle-stimulating hormone measurement may aid in ruling-out in this population. Cutoffs of greater than 20 to 45 mIU/mL have been suggested and are method dependent. False-elevations (called phantom human chorionic gonadotropin: hCG) may occur with patients who have human antianimal or heterophilic antibodies. Some specimens may not dilute linearly due to abnormal forms of hCG. Elevated hCG concentrations not associated with are found in patients with other diseases such as tumors of the germ cells, ovaries, bladder, pancreas, stomach, lungs, and liver. This test is not intended to detect or monitor tumors or gestational trophoblastic disease. [facility] Radiology Study observation (narrative) [facility] SARS-CoV-2, Flu A/B, and RSV Comboon 09-06-2023 Interpretation and review of laboratory results Normal [facility] Methodology: real-ti me, RT-PCR [facility] Troponin I.cardiac [Mass/Vol ]on 09-06-2023 Interpretation and review of laboratory results Normal [facility] Patients with high levels of Biotin oral intake (ie >5 mg/day) may have falsely decreased Troponin levels. [facility] Interpretation and review of laboratory results Normal [facility] Patients with high levels of Biotin oral intake (ie >5 mg/day) may have falsely decreased Troponin levels. [facility] Urinalysis complete panel (U )Ordered By: Court Callahan on 09-06-2023 Bacteria LM.HPF (Urine sed) [#/Area] Few Abnormal Negative /HPF [facility] Bilirubin Ql (U) Negative Negative mg/dL [facility] Clarity (U) Turbid Abnormal Clear [facility] Color (U) Light Yellow Lt. Yellow [facility] Epithelial cells.squamous LM.HPF (Urine sed) [#/Area] 11-25 Abnormal [facility] Glucose Ql (U) 70 mg/dL Normal (<70) [facility] Hemoglobin Ql (U) Negative Negative mg/dL [facility] Hyaline casts Auto (Urine sed) [#/Area] Negative Negative /LPF [facility] Interpretation and review of laboratory results Abnormal [facility] Ketones (U) [Mass/Vol] Negative Negative mg/d L [facility] Leukocyte esterase Test strip Ql (U) 75 Abnormal Negative Vamshi/uL [facility] Mucus LM.HPF (Urine sed) [#/Area] Few Negative /LPF [facility] Nitrite Ql (U) Negative Negative [facility] pH (U) 6.5 [pH] 5.0 - 8.0 pH [facility] Protein (U) [Mass/Vol] 10 mg/dL Abnormal Negative [facility] RBC LM.HPF (Urine sed) [#/Area] 3-5 Abnormal [facility] Specific gravity (U) [Rel density] 1.018 1.005 - 1.030 [facility] Urobilinogen (U) [Mass/Vol] Normal Normal (0-1) mg/dL [facility] WBC LM.HPF (Urine sed) [#/Area] 6-10 Abnormal [facility] Vital signson 09-06-2023 Heart rate 106 /min bpm [facility] Adrenocorticotropic Hormoneo n 09-04-2023 ACTH 13 pg/mL Normal [facility] Comment on above: Order Comment: Is th e patient ? YesEstimated delivery date: 03/14/2024Mother's current weight (lbs): 149Is this a twin ? NoIs this a surrogate or egg donor ? César want sex reported: YesOpt out of 22q11.2? NoWhat type of billing? Bill InsuranceDid the ordering clinician sign the statement of InformedConsent:Yes Department Information Department:[facility] [address] [address]Epiu: [phone] Ehrrpzh to patient->[id number]&Blood^\S\^Venous&VenousIs the patient ? YesPatient currently using hormonal medications? NoDid the ordering clinician sign the statement of InformedConsent: YesWhat type of billing: Bill InsuranceI authorize Gregorio to share patient's Horizon test resultswith partner and their medical provider: Silviano's name (Last, First): Fadia Zheng (MMDDYY): 09/04/2003Partner's phone number: [phone] ensures that HIPAA consent is obtained and will makeavailable to Gregorio upon request: YesDo you want Gregorio to schedule mobile phlebotomy for thispatient? NoTay-Sachs Enzyme Add-On? No Department Information Department:[facility] [address] [address]Ksri: [phone] Ltapzzb to patient->[id number]&Blood^\S\^Venous&Venous Result Comment: ---- REFERENCE VALUE 7.2-63 (a.m. collection)Test Performed by:[facility] [place] [id number] Director: Kim Pham M.D. Ph.D.; CLIA# [id number] Performed By: #### [facility] ####[facility] Janee Koenig[place], [place] [id number] Anti-thyroid Ab Profileon Anti-Thyroglobulin Ab 8.7 IU/mL High 0.0-4.0 [facility] Comment on above: Order Comment: Is th e patient ? YesEstimated delivery date: 03/14/2024Mother's current weight (lbs): 149Is this a twin ? NoIs this a surrogate or egg donor ? César want sex reported: YesOpt out of 22q11.2? NoWhat type of billing? Bill InsuranceDid the ordering clinician sign the statement of InformedConsent:Yes Department Information Department:[facility] [address] [address]Wipo: [phone] Bpehgvm to patient->[id number]&Blood^\S\^Venous&VenousIs the patient ? YesPatient currently using hormonal medications? NoDid the ordering clinician sign the statement of InformedConsent: YesWhat type of billing: Bill InsuranceI authorize Gregorio to share patient's Horizon test resultswith partner and their medical provider: YesPartner's name (Last, First): Fadia Zheng (MMDDYY): 09/04/2003Partner's phone number: [phone] ensures that HIPAA consent is obtained and will makeavailable to Gregorio upon request: YesDo you want Gregorio to schedule mobile phlebotomy for thispatient? NoTay-Sachs Enzyme Add-On? No Department Information Department:[facility] [address]Fati: [phone] Hshxqwa to patient->[id number]&Blood^\S\^Venous&Venous Result Comment: James r limit of linearity for this assay is 3.00 IU/mL. Performed By: #### A TAP ####[facility] Janee [place], [place] [phone] Anti-Thyroidperoxidase <3.0 Normal 0.0-5.5 [facility] Comment on above: Order Comment: Is th e patient ? YesEstimated delivery date: 03/14/2024Mother's current weight (lbs): 149Is this a twin ? NoIs this a surrogate or egg donor ? César want sex reported: YesOpt out of 22q11.2? NoWhat type of billing? Bill InsuranceDid the ordering clinician sign the statement of InformedConsent:Yes Department Information Department:[address] [address]Zrlg: [phone] Rtszrpz to patient->[id number]&Blood^\S\^Venous&VenousIs the patient ? YesPatient currently using hormonal medications? NoDid the ordering clinician sign the statement of InformedConsent: YesWhat type of billing: Bill InsuranceI authorize Gregorio to share patient's Horizon test resultswith partner and their medical provider: YesPartsegun's name (Last, First): Fadia Zheng (MMDDYY): 09/04/2003Partner's phone number: [phone] ensures that HIPAA consent is obtained and will makeavailable to Gregorio upon request: YesDo you want Gregorio to schedule mobile phlebotomy for thispatient? NoTay-Sachs Enzyme Add-On? No Department Information Department:[facility] [address], [address] [address]Fvso: [phone] Oizrxkz to patient->[id number]&Blood^\S\^Venous&Venous Result Comment: Test ing Performed:[address] [facility] [address] Performed By: #### A TAP ####[facility] [address]rafal Ko[place], [place] [phone] Thyroid Stimulating Immunogl obulinon 09-04-2023 Thyroid Stimulating Immunoglobulin <1.0 Normal <=1.3 [facility] Comment on above: Order Comment: Is th e patient ? YesEstimated delivery date: 03/14/2024Mother's current weight (lbs): 149Is this a twin ? NoIs this a surrogate or egg donor ? César want sex reported: YesOpt out of 22q11.2? NoWhat type of billing? Bill InsuranceDid the ordering clinician sign the statement of InformedConsent:Yes Department Information Department:[facility] [address], [address] [address]Oypg: [phone] Wiomacg to patient->[id number]&Blood^\S\^Venous&VenousIs the patient ? YesPatient currently using hormonal medications? NoDid the ordering clinician sign the statement of InformedConsent: YesWhat type of billing: Bill InsuranceI authorize Gregorio to share patient's Horizon test resultswith partner and their medical provider: YesPartsegun's name (Last, First): Fadia Zheng (MMDDYY): 09/04/2003Partner's phone number: [phone] ensures that HIPAA consent is obtained and will makeavailable to Gregorio upon request: YesDo you want Gregorio to schedule mobile phlebotomy for thispatient? NoTay-Sachs Enzyme Add-On? No Department Information Department:[facility] [address] [address]Iwjx: [phone] Dzkrjwf to patient->[id number]&Blood^\S\^Venous&Venous Result Comment: Test Performed by:[facility] [address] [place], [place] [address]Kky Director: Kim Pham M.D. Ph.D.; CLIA# [id number] Performed By: #### T SI ####[facility] [address] [phone] TSH Receptor Antibodyon 03 TSH Receptor Antibody <1.10 Normal 0.00 - 1.75 [facility] Comment on above: Order Comment: Is th e patient ? YesEstimated delivery date: 03/14/2024Mother's current weight (lbs): 149Is this a twin ? NoIs this a surrogate or egg donor ? César want sex reported: YesOpt out of 22q11.2? NoWhat type of billing? Bill InsuranceDid the ordering clinician sign the statement of InformedConsent:Yes Department Information Department:[facility] [address] [address]Mfmb: [phone] Fjgzmbf to patient->[id number]&Blood^\S\^Venous&VenousIs the patient ? YesPatient currently using hormonal medications? NoDid the ordering clinician sign the statement of InformedConsent: YesWhat type of billing: Bill InsuranceI authorize Gregorio to share patient's Horizon test resultswith partner and their medical provider: YesPartner's name (Last, First): Fadia Zheng (MMDDYY): 09/04/2003Partner's phone number: [phone] ensures that HIPAA consent is obtained and will makeavailable to Gregorio upon request: YesDo you want Gregorio to schedule mobile phlebotomy for thispatient? NoTay-Sachs Enzyme Add-On? No Department Information Department:[facility] [address], [address] [address]Qjhu: [phone] Fgyjhib to patient->[id number]&Blood^\S\^Venous&Venous Result Comment: ---- ADDITIONAL INFORMATION At a decision limit of 1.75 IU/L, this assayhas 97% sensitivity and 99% specificity fordetection of Graves' disease. In healthyindividuals and in patients with thyroid diseasewithout diagnosis of Graves' disease, the upperlimit of anti-TSHR values are 1.22 IU/L and1.58 IU/L, respectively (97.5th percentiles).Test Performed by:[facility] [place], [place] [address]Lab Director: Kim Pham M.D. Ph.D.; CLIA# [id number] Performed By: #### T SHRA ####[address] [phone] Cortisol, plasmaon Cortisol, plasma 16.70 ug/dL Normal [facility] Comment on above: Order Comment: Relea se to patient->[id number]&Blood Result Comment: Morn ing hours 6 - 10 a.m.: 6.02 - 18.40 ug/dLAfternoon hours 4 - 8 p.m.: 2.68 - 10.50 ug/dL Performed By: #### C ORT ####[address] [phone] T3 (Triiodothyronine) Totalo n 09-01-2023 T3 Total 214 ng/dL Normal 91-218 [facility] Comment on above: Order Comment: Relea se to patient->[id number]&Blood Performed By: #### T 3TOT ####[facility] [address] [phone] T4,Freeon 09-01-2023 Free T4 [Mass/Vol] 1.2 ng/dL Normal 0.8-1.5 [facility] Comment on above: Order Comment: Relea se to patient->[id number]&Blood Performed By: #### T 4FR ####[address] [phone] TSH with reflex T4FRon 08-31 TSH with reflex T4FR 0.718 uIU/mL Normal 0.500-4.300 A [facility] Comment on above: Order Comment: Relea se to patient->[id number]&Blood Performed By: #### T SHR ####[address] [phone] Urine Cultureon 09-01-2023 Bacteria identified Cx Nom (U) Normal [facility] Comment on above: Performed By: #### U RINE ####[address] [phone] Vitamin D 25 OHon 09-01-2023 25 [place] Vitamin D 25 ng/mL Low 30-100 [facility] Comment on above: Order Comment: Relea se to patient->[id number]&Blood Result Comment: Refe rence ranges provided by [facility] Laboratory are based onEndocrine Society Guidelines:Level: Characterization< 21 ng/mL: Vitamin D wnnnyzwkqk03-09 ng/mL: Suboptimal Vitamin D tvvibn43-017 ng/mL: Optimal Vitamin D status>100 ng/mL: Potentially toxic Vitamin D effects Performed By: #### V 25DH ####[address] [phone] Progress Noteon 08-31-2023 [employer] Authentication Interface Message Text Normal [facility] Progress Noteon 08-20-2023 [employer] Authentication Interface Message Text Normal [facility] Progress Noteon 08-17-2023 [employer] Authentication Interface Message Text Normal [facility] CBC panel Auto (Bld)on 08-13 Erythrocyte distribution width (RBC) [Ratio] 17.8 % High 11.5 - 15.0 % [facility] Hematocrit (Bld) [Volume fraction] 35.7 % Low 36.0 - 46.0 % [facility] Hemoglobin (Bld) [Mass/Vol] 11.4 g/dL Low 11.5 - 15.5 g/dL [facility] MCH (RBC) [Entitic mass] 25.7 pg Low 26.0 - 34.0 pg [facility] MCHC (RBC) [Mass/Vol] 31.9 g/dL 30.5 - 36.0 g/dL [facility] MCV (RBC) [Entitic vol] 80.4 fL 80.0 - 100.0 fL [facility] Nucleated RBC (Bld) [#/Vol] <0.01 k/uL [facility] Platelet mean volume (Bld) [Entitic vol] 11.3 fL 9.0 - 12.7 fL [facility] Platelets (Bld) [#/Vol] 254 10*3/uL 150 - 400 k/uL [facility] RBC (Bld) [#/Vol] 4.44 10*6/uL 3.90 - 5.2 0 m/uL [facility] WBC (Bld) [#/Vol] 10.75 10*3/uL 3.70 - 11 .00 k/uL [facility] TYPE + SCREEN PRENATALon ABO group Nom (Bld) O [facility] Blood group antibody screen Ql Negative [facility] HIstorical Ab Scr Status Negative [facility] Rh Nom (Bld) Positive [facility] Type and Screen Expiration 08/16/2023 23:59 [facility] ABO and Rh group Confirm Nom (Bld)on 08-09-2023 ABO group Nom (Bld) O [employer] D Ag Ql (RBC) Positive [facility] Blood type and Crossmatch pa rola (Bld)on 08-09-2023 ABO group Nom (Bld) O [facility] [employer] Blood group antibody screen GEL Ql Negative [facility] D Ag Ql (RBC) Positive [facility] CBC panel Auto (Bld)Ordered By: Nesha Hernandez on 08-09-2023 Erythrocyte distribution width (RBC) [Ratio] 19.2 % High 11.5 - 14.5 % [facility] Hematocrit (Bld) [Volume fraction] 35.3 % Low 37.0 - 46.0 % [facility] Hemoglobin (Bld) [Mass/Vol] 11.4 g/dL Low 12.0 - 15.0 g/dL [facility] Interpretation and review of laboratory results Abnormal [facility] MCH (RBC) [Entitic mass] 25.9 pg Low 26.0 - 34.0 pg [facility] MCHC (RBC) [Mass/Vol] 32.3 % 31.0 - 37.0 % [facility] MCV (RBC) [Entitic vol] 80.2 fL 78.0 - 96.0 fL [facility] Platelet mean volume (Bld) [Entitic vol] 10.1 fL 7.4 - 12.4 fL [facility] Platelets (Bld) [#/Vol] 234 10*3/uL 150 - 450 10*3/uL [facility] RBC (Bld) [#/Vol] 4.40 10*6/uL 4.10 - 4.8 0 10*6/uL [facility] WBC (Bld) [#/Vol] 8.2 10*3/uL 4.5 - 13.0 10*3/uL [facility] Comprehensive metabolic 1998 panelon 08-09-2023 Albumin [Mass/Vol] 4.0 g/dL 3.5 - 5.0 g/dL [facility] ALP [Catalytic activity/Vol] 74 U/L 38 - 126 U/L [facility] ALT [Catalytic activity/Vol] 21 U/L 0 - 34 U/L [facility] Anion gap [Moles/Vol] 8 mmol/L 3 - 13 mmol/L [facility] AST [Catalytic activity/Vol] 28 U/L 15 - 46 U/L [facility] Bilirubin [Mass/Vol] 0.5 mg/dL 0.2 - 1 .3 mg/dL [facility] Calcium [Mass/Vol] 8.8 mg/dL 8.4 - 10. 4 mg/dL [facility] Chloride [Moles/Vol] 103 mmol/L 98 - 10 7 mmol/L [facility] CO2 [Moles/Vol] 22 mmol/L 22 - 30 mmol/L [facility] Creatinine [Mass/Vol] 0.37 mg/dL Low 0.52 - 1.04 mg/dL [facility] GFR/1.73 sq M.predicted MDRD (S/P/Bld) [Vol rate/Area] - PINF [facility] Comment on above: Calculation based on the Chronic Kidney Disease Epidemiology Collaboration (CKD-EPI) equation refit without adjustment for race Glucose [Mass/Vol] 83 mg/dL 70 - 100 mg/dL [facility] Interpretation and review of laboratory results Abnormal [facility] Potassium [Moles/Vol] 3.3 mmol/L Low 3.5 - 5.1 mmol/L [facility] Protein [Mass/Vol] 7.8 g/dL 6.3 - 8.2 g/dL [facility] Sodium [Moles/Vol] 133 mmol/L Low 135 - 145 mmol/L [facility] Urea nitrogen [Mass/Vol] 4 mg/dL Low 7 - 17 mg/dL [facility] Free T4 [Mass/Vol]on 024 Free T4 Dialysis [Mass/Vol] 1.42 ng/dL 0.78 - 2.19 ng/dL [facility] Interpretation and review of laboratory results Normal [facility] Laboratory - Chemistry and C hemistry - challengeon 08-09-2023 TSH Qn 0.524 m[IU]/L [facility] Beta hydroxybutyrate [Mass/Vol] 1.34 mg/dL 0.20 - 2.81 mg/dL [facility] Glucose [Mass/Vol] 71 mg/dL 70 - 100 mg/dL [facility] No Panel Informationon 08-09 Interpretation and review of laboratory results Normal [facility] Interpretation and review of laboratory results Normal [facility] by: [facility], [address] [place], [place] [id number] CLIA ID: [id number] [facility] Radiology Study observation (narrative) [facility] Progress Noteon 08-09-2023 [employer] Authentication Interface Message Text Normal [facility] TSH Qnon 08-09-2023 Interpretation and review of laboratory results Normal [facility] US OB 1ST TRIMESTER TRANSABD OMINAL SINGLE FETUSon 08-08-2023 US OB 1ST TRIMESTER TRANSABDOMINAL SINGLE FETUS EXAMINATION: US OB 1ST TRIMESTER TRANSABDOMINAL SINGLE FETUS HISTORY: ORDERING SYSTEM PROVIDED HISTORY: cramping, TECHNOLOGIST PROVIDED HISTORY: Illness/Other Reason for exam: cramping Cancer History: unknown Surgery, RadiationHistory: unknown Encounter Type: Subsequent/Follow-up Additional signs and symptoms: none ORDERING SYSTEM PROVIDED DIAGNOSIS CODES: E16.2 Hypoglycemia R10.2 Pelvic cramping Z3A.08 8 weeks gestation of COMPARISON: None TECHNIQUE: Standard scanning FINDINGS: There is a well-defined intrauterine gestational sac with good decidual reaction. Within the sac there is a yolk sac and a pole. There is a there are 2 small anechoic areas adjacent to the sac with the largest measuring 20 mm in maximum size. It is fairly thin in other dimensions. CRL 17 mm- 8 weeks and 2 days. TEJ is 03/15/2024. heart activity at 165. Maternal left ovary is unremarkable. The right ovary is not seen. IMPRESSION: 1. Single viable IUP at 8 weeks and 2 days. 2. Suspect small thin areas of subchorionic hemorrhage. Workstation ID: [id number] Dictated by: JAQUELINE HAMILTON on Sat Aug 08, 2023 2:45:08 PM EST Transcribed by: JAQUELINE HAMILTON on Sat Aug 08, 2023 2:45:08 PM EST Finalized by: JAQUELINE HAMILTON on Sat Aug 08, 2023 2:45:08 PM EST Normal [facility] Comment on above: Order Comment: Injur y/Trauma or Illness?:Illness/Other How long have you had these symptoms (acute/chronic)?:Acute Reason for exam?:cramping History of cancer?:unknown Surgeries, chemotherapy, or radiation?:unknown Type of Exam?:Subsequent/Follow-up Additional signs and symptoms?:none US OB 1ST TRIMESTER TRANSBDO ROMAIN ONLY WITH COLOR FLOW SINGLE FETUSon 08-02-2023 US OB 1ST TRIMESTER TRANSBDOMINAL ONLY WITH COLOR FLOW SINGLE FETUS EXAMINATION: US OB 1ST TRIMESTER TRANSBDOMINAL ONLY WITH COLOR FLOW SINGLE FETUS HISTORY: ORDERING SYSTEM PROVIDED HISTORY: , bleeding, cramping, TECHNOLOGIST PROVIDED HISTORY: Illness/Other Reason for exam: Lumbar and pelvic pain few hours today; No bleeding Cancer History: unknown Surgery, RadiationHistory: unknown Encounter Type: Subsequent/Follow-up Additional signs and symptoms: None ORDERING SYSTEM PROVIDED DIAGNOSIS CODES: COMPARISON: Obstetric ultrasound 07/14/2023. TECHNIQUE: Transabdominal obstetric ultrasound performed. FINDINGS: The uterus measures 9.0 x 5.5 x 6.3 cm. Single intrauterine with crown-rump length of 1.1 cm corresponding to a gestational age of 7 weeks, 2 days. A yolk sac is present. heart rate: 140 beats per minute Small subchorionic hematoma. Right ovary not visualized. Normal left ovary measuring 2.8 x 2.8 x 1.9 cm. IMPRESSION: 1. Single live intrauterine with gestational age of 7 weeks, 3 days. TEJ is 03/17/2024. 2. Small subchorionic hematoma. Workstation ID: [id number] Dictated by: ANGELINE HOLLINS on [place] Aug 02, 2023 3:40:11 PM EST Transcribed by: ANGELINE HOLLINS on [place] Aug 02, 2023 3:40:11 PM EST Finalized by: ANGELINE HOLLINS on [place] Aug 02, 2023 3:40:11 PM EST Normal [facility] Comment on above: Order Comment: Injur y/Trauma or Illness?:Illness/Other How long have you had these symptoms (acute/chronic)?:Acute Reason for exam?:Lumbar and pelvic pain few hours today; No bleeding History of cancer?:unknown Surgeries, chemotherapy, or radiation?:unknown Type of Exam?:Subsequent/Follow-up Additional signs and symptoms?:None US RENAL AND BLADDERon 07-20 US RENAL AND BLADDER EXAMINATION: US RENAL AND BLADDER HISTORY: Acute lower back pain. Patient is concerning passing renal stone COMPARISON: None FINDINGS: Kidneys are normal in morphology and echogenicity. No masses, hydronephrosis or perinephric fluid collections are present. An echogenic focus measuring up to 3 mm is seen right kidney midpole near the hilum and may represent renal sinus fat, or a small nonshadowing stone. Color Doppler flow from both kidneys appeared normal. The bladder was also evaluated and no masses are present. Bladder jets were not demonstrated on this exam. Normal postvoid residual. Measurements Right kidney 11.0 cm Left kidney 12.0 cm IMPRESSION: 1. No ultrasound evidence of acute abnormalities. 2. Questionable 3 mm stone in the right kidney. Workstation ID: [id number] Dictated by: VESAT LUDWIG on ThuJul 20, 2023 2:17:08 PM EST Transcribed by: VESTA LUDWIG on ThuJul 20, 2023 2:17:08 PM EST Finalized by: VESTA LUDWIG on ThuJul 20, 2023 2:17:08 PM EST Normal [facility] Comment on above: Order Comment: Injur y/Trauma or Illness?:Illness/Other How long have you had these symptoms (acute/chronic)?:Acute Reason for exam?:lower back pain, possible kidney stone History of cancer?:unknown Surgeries, chemotherapy, or radiation?:unknown Type of Exam?:Initial Additional signs and symptoms?:no US OB TRANSVAGINAL WITH COLO R FLOW ANY TRIMESTERon 07-14-2023 US OB TRANSVAGINAL WITH COLOR FLOW ANY TRIMESTER EXAMINATION: TRANSVAGINAL OB PELVIC ULTRASOUND WITH VENOUS AND ARTERIAL COLOR AND SPECTRAL DOPPLER ANALYSIS, 07/14/2023 COMPARISON: None. HISTORY: Dx: N30.00 (Acute cystitis without hematuria), abdominal pain/rule out ectopic. FINDINGS: The uterus measures 8.1 x 4.1 x 4.5 cm. 13.6 mm endometrial stripe. Tiny gestational sac with mean sac diameter 0.32 cm corresponding to an estimated age of 4 weeks and 6 days. No yolk sac, pole or cardiac activity identified at this time. No myometrial mass identified. The right ovary not seen. The left ovary measures 4 x 2.6 x 3 cm and has a benign corpus luteal cyst measuring 1.9 x 2.3 x 2.3 cm. Left ovary has a normal venous and arterial color and spectral Doppler vascularity with the left resistive index measuring 0.53. No free fluid or adnexal mass. IMPRESSION: 1. Single tiny gestational sac within the uterus with estimated age of 4 weeks and 6 days with no cardiac activity, pole or yolk sac at this time. This is likely an early intrauterine and correlation with serial quantitative beta hCG levels is recommended. 2. Right ovary is not visualized. Left ovary has a normal appearance with a benign corpus luteal cyst measuring 2.3 cm in largest diameter. No adnexal mass or free fluid. [facility] Workstation ID: [id number] Dictated by: JENNY NUNES on ThuJul 14, 2023 7:49:01 PM EST Transcribed by: ANTELMO OATES on ThuJul 14, 2023 8:01:50 PM EST Finalized by: JENNY NUNES on ThuJul 14, 2023 9:12:47 PM EST Normal [facility] Comment on above: Order Comment: Injur y/Trauma or Illness?:Illness/Other How long have you had these symptoms (acute/chronic)?:Acute Reason for exam?:abdominal pain History of cancer?:unknown Surgeries, chemotherapy, or radiation?:unknown Type of Exam?:Initial Additional signs and symptoms?:no Progress Noteon 07-08-2023 [employer] Authentication Interface Message Text Normal [facility] Progress Noteon 06-24-2023 [employer] Authentication Interface Message Text Normal [facility] Progress Noteon 06-18-2023 [employer] Authentication Interface Message Text Normal [facility] .GFRon 06-15-2023 GFR 158 ml/min/1.73sqm Normal [facility] ([place]) Comment on above: Result Comment: GFR Population mean for , Non- Americans Ages 20-29 = 116 mL/min/1.73 sq.m. Ages 30-39 = 107 mL/min/1.73 sq.m. Ages 40-49 = 99 mL/min/1.73 sq.m. Ages 50-59 = 93 mL/min/1.73 sq.m. Ages 60-69 = 85 mL/min/1.73 sq.m. Ages 70+ = 75 mL/min/1.73 sq.m. Chronic Kidney Disease: Less than 60 mL/min/1.73 square meters End Stage Renal Disease: Less than 15 mL/min/1.73 square meters Performed By: #### G , BMP #### Mary [address] [address] GFR Non- 130 ml/min/1.73sqm Normal [facility] ([place]) Comment on above: Result Comment: GFR Population mean for , Non- Americans Ages 20-29 = 116 mL/min/1.73 sq.m. Ages 30-39 = 107 mL/min/1.73 sq.m. Ages 40-49 = 99 mL/min/1.73 sq.m. Ages 50-59 = 93 mL/min/1.73 sq.m. Ages 60-69 = 85 mL/min/1.73 sq.m. Ages 70+ = 75 mL/min/1.73 sq.m. Chronic Kidney Disease: Less than 60 mL/min/1.73 square meters End Stage Renal Disease: Less than 15 mL/min/1.73 square meters Performed By: #### Nan PACHECO, BMP #### [address] [address] BMPon 06-15-2023 BUN/Creatinine Ratio 5 ratio Low 7-27 [facility] ([place]) Comment on above: Performed By: #### Nan PACHECO, BMP #### [address] [address] Calcium [Mass/Vol] 8.9 mg/dL Normal 8.4-10.2 [facility] ([place]) Comment on above: Performed By: #### Nan PACHECO, BMP #### [address] [address] Chloride [Moles/Vol] 101 mmol/L Normal 98-107 [facility] ([place]) Comment on above: Performed By: #### Nan PACHECO, BMP #### [address] [address] CO2 [Moles/Vol] 23 mmol/L Normal 22-29 [facility] ([place]) Comment on above: Performed By: #### Nan PACHECO, BMP #### [address] [address] Creatinine [Mass/Vol] 0.60 mg/dL Normal 0.55-1.02 [facility] ([place]) Comment on above: Performed By: #### Nan PACHECO, BMP #### [address] [address] Electrolyte Balance 12.0 mEq/L Normal 4.0-15.0 [facility] ([place]) Comment on above: Performed By: #### Nan PACHECO, BMP #### [address] [address] Glucose [Mass/Vol] 230 mg/dL High 70-105 [facility] ([place]) Comment on above: Performed By: #### G FR, BMP #### [facility] [address] [place], [place] [address] Potassium [Moles/Vol] 4.0 mmol/L Normal 3.5-5.1 [facility] ([place]) Comment on above: Performed By: #### G FR, BMP #### [facility] [address] [place], [place] [address] Sodium [Moles/Vol] 136 mmol/L Normal 136-145 [facility] ([place]) Comment on above: Performed By: #### G FR, BMP #### [facility] [address] [place], [place] [address] Urea nitrogen [Mass/Vol] 3 mg/dL Low 7-18 [facility] ([place]) Comment on above: Performed By: #### G FR, BMP #### [address] [place], [place] [address] LABORATORYOrdered By: SYSTEM SYSTEM on 06-15-2023 Calcium [Mass/Vol] 8.9 mg/dL Normal 8.4 - 10. 2 mg/dL AO ADM SS Chloride [Moles/Vol] 101 mmol/L Normal 98 - 10 7 mmol/L AO ADM SS CO2 [Moles/Vol] 23 mmol/L Normal 22 - 29 mmol/L AO AD M SS Creatinine [Mass/Vol] 0.60 mg/dL Normal 0.55 - 1.02 mg/dL AO ADM SS Electrolyte Balance 12.0 mEq/L Normal 4.0 - 15 .0 mEq/L AO ADM SS GFR/1.73 sq M.predicted among blacks MDRD (S/P/Bld) [Vol rate/Area] 158 ml/min/1.73sqm Invalid Interpretation Code AO Chemistry S Comment on above: Interpretive Data: GFR Population mean for , Non- Americans Ages 20-29 = 116 mL/min/1.73 sq.m. Ages 30-39 = 107 mL/min/1.73 sq.m. Ages 40-49 = 99 mL/min/1.73 sq.m. Ages 50-59 = 93 mL/min/1.73 sq.m. Ages 60-69 = 85 mL/min/1.73 sq.m. Ages 70+ = 75 mL/min/1.73 sq.m. Chronic Kidney Disease: Less than 60 mL/min/1.73 square meters End Stage Renal Disease: Less than 15 mL/min/1.73 square meters GFR/1.73 sq M.predicted among non-blacks MDRD (S/P/Bld) [Vol rate/Area] 130 ml/min/1.73sqm Invalid Interpretation Code AO Chemistry S Comment on above: Interpretive Data: GFR Population mean for , Non- Americans Ages 20-29 = 116 mL/min/1.73 sq.m. Ages 30-39 = 107 mL/min/1.73 sq.m. Ages 40-49 = 99 mL/min/1.73 sq.m. Ages 50-59 = 93 mL/min/1.73 sq.m. Ages 60-69 = 85 mL/min/1.73 sq.m. Ages 70+ = 75 mL/min/1.73 sq.m. Chronic Kidney Disease: Less than 60 mL/min/1.73 square meters End Stage Renal Disease: Less than 15 mL/min/1.73 square meters Glucose [Mass/Vol] 230 mg/dL High 70 - 105 mg/dL AO ADM SS Potassium [Moles/Vol] 4.0 mmol/L Normal 3.5 - 5.1 mmol/L AO ADM SS Sodium [Moles/Vol] 136 mmol/L Normal 136 - 145 mmol/L AO ADM SS Urea nitrogen [Mass/Vol] 3 mg/dL Low 7 - 18 mg/dL AO ADM SS Urea nitrogen/Creatinine [Mass ratio] 5 ratio Low 7 - 27 ratio AO ADM SS CBC W Auto Differential pane l (Bld)on 06-07-2023 Basophils (Bld) [#/Vol] 0.01 x10*3/uL Normal 0.00-0.10 [facility] Comment on above: Performed By: #### 5 7021-8 #### AVLERY Paulson ([id number]) [facility] ([facility]) [address] [place] [address] Basophils/100 WBC (Bld) 0.1 % Normal 0.0-2.0 [facility] Comment on above: Performed By: #### 5 7021-8 #### VALERY Paulson ([id number]) [facility] ([facility]) [address] [place] [address] 27734 Eosinophils (Bld) [#/Vol] 0.16 x10*3/uL Normal 0.00-0.70 [facility] Comment on above: Performed By: #### 5 7021-8 #### VALERY Paulson ([id number]) [facility] ([facility]) [address] [place] [address] 01964 Eosinophils/100 WBC (Bld) 2.1 % Normal 0.0-6.0 [facility] Comment on above: Performed By: #### 5 7021-8 #### VALERY Paulson ([id number]) [facility] ([facility]) [address] [place] [address] 72889 Erythrocyte distribution width (RBC) [Ratio] 14.9 % High 11.5-14.5 [facility] Comment on above: Performed By: #### 5 7021-8 #### VALERY Paulson ([id number]) [facility] ([facility]) [address] [place] [address] 95468 Hematocrit (Bld) [Volume fraction] 35.9 % Low 36.0-46.0 [facility] Comment on above: Performed By: #### 5 7021-8 #### VALERY Paulson ([id number]) [facility] ([facility]) [address] [place] [address] 92278 Hemoglobin (Bld) [Mass/Vol] 11.8 g/dL Low 12.0-16.0 [facility] Comment on above: Performed By: #### 5 7021-8 #### VALERY Paulson ([id number]) [facility] ([facility]) [address] [place] [address] 87731 Immature granulocytes (Bld) [#/Vol] 0.03 x10*3/uL Normal 0.00-0.70 [facility] Comment on above: Performed By: #### 5 7021-8 #### VALERY Paulson ([id number]) [facility] ([facility]) [address] [place] [address] 55735 Immature granulocytes/100 WBC (Bld) 0.4 % Normal 0.0-0.9 [facility] Comment on above: Result Comment: Jeannine ture Granulocyte Count (IG) includes promyelocytes, myelocytes and metamyelocytes but does not include bands. Percent differential counts (%) should be interpreted in the context of the absolute cell counts (cells/UL). Performed By: #### 5 7021-8 #### VALERY Paulson ([id number]) [facility] ([facility]) [address] [place] [address] 82052 Lymphocytes (Bld) [#/Vol] 2.12 x10*3/uL Normal 1.20-4.80 [facility] Comment on above: Performed By: #### 5 7021-8 #### VALERY Paulson ([id number]) [facility] ([facility]) [address] [place] [address] 23105 Lymphocytes/100 WBC (Bld) 28.2 % Normal 13.0-44.0 [facility] Comment on above: Performed By: #### 5 7021-8 #### VALERY Paulson ([id number]) [facility] ([facility]) [address] [place] [address] 33031 MCH (RBC) [Entitic mass] 26.3 pg Normal 26.0-34.0 [facility] Comment on above: Performed By: #### 5 7021-8 #### VALERY Paulson ([id number]) [facility] ([facility]) [address] [place] [address] 50653 MCHC (RBC) [Mass/Vol] 32.9 g/dL Normal 32.0-36.0 [facility] Comment on above: Performed By: #### 5 7021-8 #### VALERY Paulson ([id number]) [facility] ([facility]) [id number] [place] [address] 46146 MCV (RBC) [Entitic vol] 80 fL Normal 80-100 [facility] Comment on above: Performed By: #### 5 7021-8 #### VALERY Paulson ([id number]) [facility] ([facility]) [address] [place] [address] 82322 Monocytes (Bld) [#/Vol] 0.56 x10*3/uL Normal 0.10-1.00 [facility] Comment on above: Performed By: #### 5 7021-8 #### VALERY Paulson ([id number]) [facility] ([facility]) [address] [place] [address] 72030 Monocytes/100 WBC (Bld) 7.4 % Normal 2.0-10.0 [facility] Comment on above: Performed By: #### 5 7021-8 #### VALERY Paulson ([id number]) [facility] ([facility]) [address] [place] [address] 96389 Neutrophils (Bld) [#/Vol] 4.64 x10*3/uL Normal 1.20-7.70 [facility] Comment on above: Result Comment: Perc ent differential counts (%) should be interpreted in the context of the absolute cell counts (cells/uL). Performed By: #### 5 7021-8 #### VALERY Paulson ([id number]) [facility] ([facility]) [address] [place] [address] 19205 Neutrophils/100 WBC (Bld) 61.8 % Normal 40.0-80.0 [facility] Comment on above: Performed By: #### 5 7021-8 #### VALERY Paulson ([id number]) [facility] ([facility]) [address] [place] [address] 35626 Nucleated RBC/100 WBC (Bld) [Ratio] 0.0 /100 WBCs Normal 0.0-0.0 [facility] Comment on above: Performed By: #### 5 7021-8 #### VALERY Paulson ([id number]) [facility] ([facility]) [address] [place] [address] 47549 Platelets (Bld) [#/Vol] 261 x10*3/uL Normal 150-450 [facility] Comment on above: Performed By: #### 5 7021-8 #### VALERY Paulson ([id number]) [facility] ([facility]) [address] [place] [address] 37373 RBC (Bld) [#/Vol] 4.48 x10*6/uL Normal 4.00-5.20 [facility] Comment on above: Performed By: #### 5 7021-8 #### VALERY Paulson ([id number]) [facility] ([facility]) [address] [place] [address] 82490 WBC (Bld) [#/Vol] 7.5 x10*3/uL Normal 4.4-11.3 [facility] Comment on above: Performed By: #### 5 7021-8 #### VALERY Paulson ([id number]) [facility] ([facility]) [address] [place] [address] 67337 Comprehensive metabolic 2000 panelon 06-07-2023 Albumin BCP dye [Mass/Vol] 4.0 g/dL Normal 3.4-5.0 [facility] Comment on above: Performed By: #### 2 4323-8 #### VALERY Paulson ([id number]) [facility] ([facility]) [address] [place] [address] ALP [Catalytic activity/Vol] 54 U/L Normal 33-110 [facility] Comment on above: Performed By: #### 2 4323-8 #### VALERY Paulson ([id number]) [facility] ([facility]) [address] [place] [address] ALT With P-5'-P [Catalytic activity/Vol] 9 U/L Normal 7-45 [facility] Comment on above: Result Comment: Trista ents treated with Sulfasalazine may generate falsely decreased results for ALT. Performed By: #### 2 4323-8 #### VALERY Paulson ([id number]) [facility] ([facility]) [address] [place] [address] Anion gap [Moles/Vol] 11 mmol/L Normal 10-20 [facility] Comment on above: Performed By: #### 2 4323-8 #### VALERY Paulson ([id number]) [facility] ([facility]) [address] [place] [address] AST With P-5'-P [Catalytic activity/Vol] 13 U/L Normal 9-39 [facility] Comment on above: Performed By: #### 2 4323-8 #### VALERY Paulson ([id number]) [facility] ([facility]) [address] [place] [address] 52921 Bilirubin [Mass/Vol] 0.4 mg/dL Normal 0.0-1.2 [facility] Comment on above: Performed By: #### 2 4323-8 #### VALERY Paulson ([id number]) [facility] ([facility]) [address] [place] [address] 02651 Calcium [Mass/Vol] 9.5 mg/dL Normal 8.6-10.6 [facility] Comment on above: Performed By: #### 2 4323-8 #### VALERY Paulson ([id number]) [facility] ([facility]) [address] [place] [address] 62318 Chloride [Moles/Vol] 102 mmol/L Normal 98-107 [facility] Comment on above: Performed By: #### 2 4323-8 #### VALERY Paulson ([id number]) [facility] ([facility]) [address] [place] [address] 57770 CO2 [Moles/Vol] 26 mmol/L Normal 21-32 [facility] Comment on above: Performed By: #### 2 4323-8 #### VALERY Paulson ([id number]) [facility] ([facility]) [address] [place] [address] 54917 Creatinine [Mass/Vol] 0.57 mg/dL Normal 0.50-1.05 [facility] Comment on above: Performed By: #### 2 4323-8 #### VALERY Paulson ([id number]) [facility] ([facility]) [address] [place] [address] 54329 GFR/1.73 sq M.predicted MDRD (S/P/Bld) [Vol rate/Area] mL/min/{1.73_m2} Normal >60 [facility] Comment on above: Result Comment: Calc ulations of estimated GFR are performed using the 2020 CKD-EPI Study Refit equation without the race variable for the IDMS-Traceable creatinine methods. https://jasn.asnjournals.org/content/early/ASN.20758 82470 Performed By: #### 2 4323-8 #### VALERY Paulson ([id number]) [facility] ([facility]) [address] [place] [address] 38593 Glucose [Mass/Vol] 298 mg/dL High 74-99 [facility] Comment on above: Performed By: #### 2 4323-8 #### VALERY Paulson ([id number]) [facility] ([facility]) [address] [place] [address] 66320 Potassium [Moles/Vol] 3.8 mmol/L Normal 3.5-5.3 [facility] Comment on above: Performed By: #### 2 4323-8 #### VALERY Paulson ([id number]) [facility] ([facility]) [address] [place] [address] 02393 Protein [Mass/Vol] 7.6 g/dL Normal 6.4-8.2 [facility] Comment on above: Performed By: #### 2 4323-8 #### VALERY CLINE L ([id number]) [facility] ([facility]) [address] [place] [address] 23367 Sodium [Moles/Vol] 135 mmol/L Low 136-145 [facility] Comment on above: Performed By: #### 2 4323-8 #### VALERY CLINE L ([id number]) [facility] ([facility]) [address] [place] [address] 07537 Urea nitrogen [Mass/Vol] 8 mg/dL Normal 6-23 [facility] Comment on above: Performed By: #### 2 4323-8 #### VALERY Paulson ([id number]) [facility] ([facility]) [address] [place] [address] 36517 Gas panel (BldV)on 3 Anion gap 4 (BldV) [Moles/Vol] 10.0 mmol/L Normal 10.0-25.0 [facility] Comment on above: Performed By: #### 2 4339-4 #### VALERY Paulson ([id number]) [facility] ([facility]) [address] [place] [address] 56762 Base excess Calc (BldV) [Moles/Vol] 1.2 mmol/L Normal -2.0-3.0 [facility] Comment on above: Performed By: #### 2 4339-4 #### VALERY Paulson ([id number]) [facility] ([facility]) [address] [place] [address] 12079 Calcium.ionized (BldV) [Moles/Vol] 1.18 mmol/L Normal 1.10-1.33 [facility] Comment on above: Performed By: #### 2 4339-4 #### VALERY Paulson ([id number]) [facility] ([facility]) [address] [place] [address] 68741 Chloride (BldV) [Moles/Vol] 102 mmol/L Normal 98-107 [facility] Comment on above: Performed By: #### 2 4339-4 #### VALERY Paulson ([id number]) [facility] ([facility]) [address] [place] [address] 96469 CO2 (BldV) [Partial pressure] 41 mm Hg Normal 41-51 [facility] Comment on above: Performed By: #### 2 4339-4 #### VALERY Paulson ([id number]) [facility] ([facility]) [address] [place] [address] Glucose [Mass/Vol] 312 mg/dL High 74-99 [facility] Comment on above: Performed By: #### 2 4339-4 #### VALERY Paulson ([id number]) [facility] ([facility]) [address] [place] [address] 52414 HCO3 (Bld) [Moles/Vol] 26.0 mmol/L Normal 22.0-26.0 [facility] Comment on above: Performed By: #### 2 4339-4 #### VALERY Paulson ([id number]) [facility] ([facility]) [address] [place] [address] 35546 Hematocrit Est (Bld) [Volume fraction] 36.0 % Normal 36.0-46.0 [facility] Comment on above: Performed By: #### 2 4339-4 #### VALERY Paulson ([id number]) [facility] ([facility]) [address] [place] [address] 49972 Hemoglobin (Bld) [Mass/Vol] 11.9 g/dL Low 12.0-16.0 [facility] Comment on above: Performed By: #### 2 4339-4 #### VALERY Paulson ([id number]) [facility] ([facility]) [address] [place] [address] 99321 Inhaled oxygen concentration 21 % Normal [facility] Comment on above: Performed By: #### 2 4339-4 #### VALERY Paulson ([id number]) [facility] ([facility]) [address] [place] [address] 43048 Lactate (BldV) [Moles/Vol] 1.7 mmol/L Normal 0.4-2.0 [facility] Comment on above: Performed By: #### 2 4339-4 #### VALERY Paulson ([id number]) [facility] ([facility]) [address] [place] [address] 34289 Oxygen (BldV) [Partial pressure] 34 mm Hg Low 35-45 [facility] Comment on above: Performed By: #### 2 4339-4 #### VALERY Paulson ([id number]) [facility] ([facility]) [address] [place] [address] 35079 Oxygen saturation in Venous blood 54 % Normal 45-75 [facility] Comment on above: Performed By: #### 2 4339-4 #### VALERY CLINE L ([id number]) [facility] ([facility]) [address] [place] [address] 66850 Oxyhemoglobin (BldV) [Mass fraction] 52.7 % Normal 45.0-75.0 [facility] Comment on above: Performed By: #### 2 4339-4 #### VALERY Paulson ([id number]) [facility] ([facility]) [address] [place] [address] 62375 pH (BldV) 7.41 [pH] Normal 7.33-7.43 [facility] Comment on above: Performed By: #### 2 4339-4 #### VALERY CLINE L ([id number]) [facility] ([facility]) [address] [place] [address] 57712 Potassium (BldV) [Moles/Vol] 3.8 mmol/L Normal 3.5-5.3 [facility] Comment on above: Performed By: #### 2 4339-4 #### VALERY CLINE L ([id number]) [facility] ([facility]) [address] [place] [address] 83901 Sodium (BldV) [Moles/Vol] 134 mmol/L Low 136-145 [facility] Comment on above: Performed By: #### 2 4339-4 #### VALERY CLINE L ([id number]) [facility] ([facility]) [address] [place] [address] 90425 Creatinineon 06-01-2023 Creatinine [Mass/Vol] 0.56 mg/dL Normal 0.50-1.00 [facility] Comment on above: Order Comment: Relea se to patient->[id number]&Blood Performed By: #### C REAT ####[facility] [address] [phone] ED Provider Progress Noteon 06-01-2023 [employer] Authentication Interface Message Text Normal [facility] ED Stat Panelon 06-01-2023 Calcium, Ionized WB 4.67 mg/dL Normal 4.60-5.28 [facility] Comment on above: Order Comment: Relea se to patient->[id number]&BloodReason for preventing automatic release->OtherRelease to patient->Manual release [id number]&Urine Performed By: #### E DPAN ####[address] [phone] Chloride [Moles/Vol] 106 mmol/L Normal 96-108 [facility] Comment on above: Order Comment: Relea se to patient->[id number]&BloodReason for preventing automatic release->OtherRelease to patient->Manual release [id number]&Urine Performed By: #### E DPAN ####[address] [phone] Glucose [Mass/Vol] 240 mg/dL High 70-99 [facility] Comment on above: Order Comment: Relea se to patient->[id number]&BloodReason for preventing automatic release->OtherRelease to patient->Manual release [id number]&Urine Performed By: #### E DPAN ####[address] [phone] Lactate,WB 2.6 mmol/L High 0.5-1.6 [facility] Comment on above: Order Comment: Relea se to patient->[id number]&BloodReason for preventing automatic release->OtherRelease to patient->Manual release [id number]&Urine Performed By: #### E DPAN ####[address] [phone] Potassium [Moles/Vol] 3.3 mmol/L Normal 3.3-5.1 [facility] Comment on above: Order Comment: Relea se to patient->[id number]&BloodReason for preventing automatic release->OtherRelease to patient->Manual release [id number]&Urine Performed By: #### E DPAN ####[address] [phone] Sodium [Moles/Vol] 139 mmol/L Normal 133-145 [facility] Comment on above: Order Comment: Relea se to patient->[id number]&BloodReason for preventing automatic release->OtherRelease to patient->Manual release [id number]&Urine Performed By: #### E DPAN ####[address] [phone] Chloride, WB 106 [facility] CO2 [Moles/Vol] 23.6 mmol/L Low 24.0 - 30.0 mmol/L [facility] HCO3 (Bld) [Moles/Vol] 22.4 mmol/L 22.0 - 28.0 mmol/L [facility] Hemoglobin (Bld) [Mass/Vol] 11.2 g/dL Low 12.0 - 16.0 g/dl [facility] Interpretation and review of laboratory results Abnormal [facility] O2 Hgb Jimmy 97.5 % T.Hgb [facility] Comment on above: No reference range e stablished for this specimen type Oxygen saturation in Blood % % [facility] Comment on above: No reference range e stablished for this specimen type pCO2, Venous 38.4 [facility] pH Jimmy 7.374 [facility] pO2 Venous 143.0 mm Hg [facility] Comment on above: No reference range e stablished for this specimen type Potassium, WB 3.3 [facility] Sodium,WB 139 [facility] STD BE Venous -2.8 mmol/L [facility] Comment on above: No reference range e stablished for this specimen type Temperature, venous 37.0 degrees C [facility] Release to patient->Automatic Reason for preventing automatic release->Other Release to patient->Manual release only [facility] pH, venous 7.374 Normal 7.280-7.420 [facility] Comment on above: Order Comment: Relea se to patient->[id number]&BloodReason for preventing automatic release->OtherRelease to patient->Manual release [id number]&Urine Performed By: #### E DPAN ####[address] [phone] CO2 [Moles/Vol] 23.6 mmol/L Low 24.0-30.0 [facility] Comment on above: Order Comment: Relea se to patient->[id number]&BloodReason for preventing automatic release->OtherRelease to patient->Manual release [id number]&Urine Performed By: #### E DPAN ####[address] [phone] HCO3 (Bld) [Moles/Vol] 22.4 mmol/L Normal 22.0-28.0 [facility] Comment on above: Order Comment: Relea se to patient->[id number]&BloodReason for preventing automatic release->OtherRelease to patient->Manual release [id number]&Urine Performed By: #### E DPAN ####[address] [phone] Hemoglobin (Bld) [Mass/Vol] 11.2 g/dL Low 12.0-16.0 [facility] Comment on above: Order Comment: Relea se to patient->[id number]&BloodReason for preventing automatic release->OtherRelease to patient->Manual release [id number]&Urine Performed By: #### E DPAN ####[address] [phone] O2 Hgb, venous 97.5 % T.Hgb Normal [facility] Comment on above: Order Comment: Relea se to patient->[id number]&BloodReason for preventing automatic release->OtherRelease to patient->Manual release [id number]&Urine Result Comment: No r eference range established for this specimen type Performed By: #### E DPAN ####[facility] [address] [phone] O2 Saturation, venous >98.9 Normal [facility] Comment on above: Order Comment: Relea se to patient->[id number]&BloodReason for preventing automatic release->OtherRelease to patient->Manual release [id number]&Urine Result Comment: No r eference range established for this specimen type Performed By: #### E DPAN ####[facility] [address] [phone] pCO2, venous 38.4 mm Hg Normal 38.0-52.0 [facility] Comment on above: Order Comment: Relea se to patient->[id number]&BloodReason for preventing automatic release->OtherRelease to patient->Manual release [id number]&Urine Performed By: #### E DPAN ####[facility] [address] [phone] pO2, venous 143.0 mm Hg Normal [facility] Comment on above: Order Comment: Relea se to patient->[id number]&BloodReason for preventing automatic release->OtherRelease to patient->Manual release [id number]&Urine Result Comment: No r eference range established for this specimen type Performed By: #### E DPAN ####[facility] [address] [phone] Std Base Excess, venous -2.8 mmol/L Normal [facility] Comment on above: Order Comment: Relea se to patient->[id number]&BloodReason for preventing automatic release->OtherRelease to patient->Manual release [id number]&Urine Result Comment: No r eference range established for this specimen type Performed By: #### E DPAN ####[facility] [address] [phone] Temperature, venous 37.0 degrees C Normal [facility] Comment on above: Order Comment: Relea se to patient->[id number]&BloodReason for preventing automatic release->OtherRelease to patient->Manual release [id number]&Urine Performed By: #### E NIC ####[facility] [address] [phone] Glucose by M[place] 3 Glucose [Mass/Vol] 280 mg/dL High 70-99 [facility] Comment on above: Bedside glucose is a screening procedure. The bedside glucose strip is calibrated to deliver plasma glucose levels. Glucose meter values <45 mg/dl and >450 mg/dl must be confirmed with a plasma or whole blood glucose performed in the lab. Whole blood glucose results are 10-15% lower than plasma glucose results. Result Comment: Beds rodríguez glucose is a screening procedure. The bedside glucosestrip is calibrated to deliver plasma glucose levels. Glucosemeter values <45 mg/dl and >450 mg/dl must be confirmed with aplasma or whole blood glucose performed in the lab. Wholeblood glucose results are 10-15% lower than plasma glucoseresults. Performed By: #### Nan GARRIDO ####[address] [phone] Glucose [Mass/Vol] 237 mg/dL High 70-99 [facility] Comment on above: Bedside glucose is a screening procedure. The bedside glucose strip is calibrated to deliver plasma glucose levels. Glucose meter values <45 mg/dl and >450 mg/dl must be confirmed with a plasma or whole blood glucose performed in the lab. Whole blood glucose results are 10-15% lower than plasma glucose results. Result Comment: Beds rodríguez glucose is a screening procedure. The bedside glucosestrip is calibrated to deliver plasma glucose levels. Glucosemeter values <45 mg/dl and >450 mg/dl must be confirmed with aplasma or whole blood glucose performed in the lab. Wholeblood glucose results are 10-15% lower than plasma glucoseresults. Performed By: #### G RADHIKA ####[facility] [address] [phone] Glucose by meteron 3 Interpretation and review of laboratory results Abnormal [facility] Interpretation and review of laboratory results Abnormal [facility] HCG,Urineon 06-01-2023 Beta HCG ( test) Ql (U) Negative Normal [facility] Comment on above: Non females and males-Negative females-Positive Order Comment: Relea se to patient->[id number]&BloodReason for preventing automatic release->OtherRelease to patient->Manual release [id number]&Urine Result Comment: Nonp regnant females and males-Negative females-Positive Performed By: #### H CGUR ####[address] [phone] No Panel Informationon 06-01 Release to patient->Automatic [facility] Interpretation and review of laboratory results Abnormal [facility] Release to patient->Automatic [facility] LAB [facility] Phosphoruson 06-01-2023 Phosphate [Mass/Vol] 2.8 mg/dL Normal 2.7-4.5 [facility] Comment on above: Order Comment: Relea se to patient->[id number]&Blood Performed By: #### P HOS ####[address] [phone] , urineon 3 Release to patient->Automatic Reason for preventing automatic release->Other Release to patient->Manual release only [facility] Urea Nitrogenon 06-01-2023 Urea nitrogen [Mass/Vol] 8 mg/dL Normal 4-19 [facility] Comment on above: Order Comment: Relea se to patient->[id number]&Blood Performed By: #### B UN ####[address] [phone] Urinalysis, Automated-[facility] n 06-01-2023 Mucous Ur Small [facility] RBC, Urine 0.0 /uL 0.0 - 20.0 /uL [facility] Squamous Epithelial Cells Ur 7 /uL 0 - 20 /uL [facility] WBC UR 22.0 /uL High 0.0 - 20.0 /uL [facility] Urinalysis, Complete (Chemis try & Micro)on 06-01-2023 Bilirubin Ur Negative Negative mg/dL [facility] Character Clear [facility] Color Ur Light-Yellow [facility] Glucose Ur 4+ Abnormal Normal mg/dL [facility] Hemoglobin Ur Negative Negative RBC's/uL [facility] Ketones Ur Negative Negative mg/dL [facility] Leukocyte Esterase Ur Negative Negati ve leuk/ul [facility] Nitrite Ql (U) Negative Negative mg/dl [facility] pH Ur 6.5 [facility] Protein Ur Negative Neg.-Trace mg/dL [facility] Specific gravity (U) [Rel density] 1.031 High [facility] Urobilinogen NORMAL Normal mg/dl [facility] Volume Ur 12 ml 12 [facility] Urinalysis,Automatedon 06-01 Mucous Small Normal [facility] Comment on above: Order Comment: Relea se to patient->[id number]&Urine Performed By: #### U FMIC ####[address] [phone] RBC (U) [#/Vol] 0.0 /uL Normal 0.0-20.0 [facility] Comment on above: Order Comment: Relea se to patient->[id number]&Urine Performed By: #### U FMIC ####[address] [phone] Squamous Epithelial Cells 7 /uL Normal 0-20 [facility] Comment on above: Order Comment: Relea se to patient->[id number]&Urine Performed By: #### U FMIC ####[address] [phone] WBC (U) [#/Vol] 22.0 /uL High 0.0-20.0 [facility] Comment on above: Order Comment: Relea se to patient->[id number]&Urine Performed By: #### U FMIC ####[address] [phone] Urinalysis,Completeon 2022 Volume 12 ml Normal 12 [facility] Comment on above: Order Comment: Relea se to patient->[id number]&Urine Performed By: #### U ACOM ####[address] [phone] Bilirubin,urine Negative Normal Negative [facility] Comment on above: Order Comment: Relea se to patient->[id number]&Urine Performed By: #### U ACOM ####[address] [phone] Character Clear Normal [facility] Comment on above: Order Comment: Relea se to patient->[id number]&Urine Performed By: #### U ACOM ####[address] [phone] Color (U) Light-Yellow Normal [facility] Comment on above: Order Comment: Relea se to patient->[id number]&Urine Performed By: #### U ACOM ####[address] [phone] Glucose Ql (U) 4+ mg/dL Abnormal Normal [facility] Comment on above: Order Comment: Relea se to patient->[id number]&Urine Performed By: #### U ACOM ####[address] [phone] Ketones Ql (U) Negative Normal Negative [facility] Comment on above: Order Comment: Relea se to patient->[id number]&Urine Performed By: #### U ACOM ####[facility] [address] [phone] Leukocyte esterase Test strip Ql (U) Negative Normal Negative [facility] Comment on above: Order Comment: Relea se to patient->[id number]&Urine Performed By: #### U ACOM ####[address] [phone] Nitrite Ql (U) Negative Normal Negative [facility] Comment on above: Order Comment: Relea se to patient->[id number]&Urine Performed By: #### U ACOM ####[facility] [address] [phone] pH, Urine 6.5 Normal 5.0-8.0 [facility] Comment on above: Order Comment: Relea se to patient->[id number]&Urine Performed By: #### U ACOM ####[address] [phone] Protein,Ur Negative Normal Neg.-Trace [facility] Comment on above: Order Comment: Relea se to patient->[id number]&Urine Performed By: #### U ACOM ####[address] [phone] Specific gravity (U) [Rel density] 1.031 High 1.005-1.030 [facility] Comment on above: Order Comment: Relea se to patient->[id number]&Urine Performed By: #### U ACOM ####[address] [phone] Urobilinogen NORMAL Normal Normal [facility] Comment on above: Order Comment: Relea se to patient->[id number]&Urine Performed By: #### U ACOM ####[address] [phone] eGFRon 12-04-2023 eGFR see below Normal [facility] Comment on above: Reference range: > 3 months: >90 ml/min/1.73m^2 Ref. Range change effective 09/21/2017 Unable to calculate EGFR; height not available. - To manually calculate eGFR use Bedside Crowell equation. - (0.41 X height in centimeters)/serum creatinine mg/dL Order Comment: Relea se to patient->[id number]&Blood Result Comment: Refe rence range:> 3 months:>90 ml/min/1.73m^2Ref. Range change qwrwpmybr14/26/2018Unable to calculate EGFR; height not available.-To manually calculate eGFR use Bedside Crowell equation.-(0.41 X height in centimeters)/serum creatinine mg/dL Performed By: #### E GFR ####[facility] [address] [phone] Complete Blood Count without Differential (Hemogram)on 05-28-2023 Erythrocyte distribution width (RBC) [Ratio] 15.5 % High 0.0 - 14.4 % [facility] Hematocrit (Bld) [Volume fraction] 37.4 % 37.0 - 46.0 % [facility] Hemoglobin (Bld) [Mass/Vol] 11.6 g/dL Low 12.0 - 15.0 g/dl [facility] Interpretation and review of laboratory results Abnormal [facility] MCH (RBC) [Entitic mass] 25.7 pg 25.0 - 35.0 pg [facility] MCHC 31.0 % 31.0 - 37.0 % [facility] MCV (RBC) [Entitic vol] 82.7 fL 78.0 - 96.0 fl [facility] Nucleated RBC/100 WBC (Bld) [Ratio] 0.0 % -1.0 - 0.0 % [facility] Platelet mean volume (Bld) [Entitic vol] 11.6 fL [facility] Comment on above: MPV is platelet range and age dependent Platelets (Bld) [#/Vol] 319 10*3/uL [facility] RBC (Bld) [#/Vol] 4.52 10*6/uL [facility] WBC (Bld) [#/Vol] 8.2 10*3/uL [facility] Release to patient->Automatic [facility] LAB [facility] HCG, Urineon 05-28-2023 Beta HCG ( test) Ql (U) Negative mIU/mL [facility] Comment on above: Non females and males-Negative females-Positive Reason for preventin g automatic release->Other Release to patient->Manual release only [facility] LAB [facility] HCG,Urineon 05-28-2023 Beta HCG ( test) Ql (U) Negative Normal [facility] Comment on above: Order Comment: Reaso n for preventing automatic release->OtherRelease to patient->Manual release [id number]&Urine Result Comment: Nonp regnant females and males-Negative females-Positive Performed By: #### H CGUR ####[address] [phone] Hemogramon 05-28-2023 Erythrocyte distribution width (RBC) [Ratio] 15.5 % High 0.0-14.4 [facility] Comment on above: Order Comment: Relea se to patient->[id number]&Blood Performed By: #### H EGRM ####[address] [phone] Hematocrit (Bld) [Volume fraction] 37.4 % Normal 37.0-46.0 [facility] Comment on above: Order Comment: Relea se to patient->[id number]&Blood Performed By: #### H EGRM ####[address] [phone] Hemoglobin (Bld) [Mass/Vol] 11.6 g/dL Low 12.0-15.0 [facility] Comment on above: Order Comment: Relea se to patient->[id number]&Blood Performed By: #### H EGRM ####[place] [phone] MCH (RBC) [Entitic mass] 25.7 pg Normal 25.0-35.0 [facility] Comment on above: Order Comment: Relea se to patient->[id number]&Blood Performed By: #### H EGRM ####[address] [phone] MCHC 31.0 % Normal 31.0-37.0 [facility] Comment on above: Order Comment: Relea se to patient->[id number]&Blood Performed By: #### H EGRM ####[address] [phone] MCV (RBC) [Entitic vol] 82.7 fL Normal 78.0-96.0 [facility] Comment on above: Order Comment: Relea se to patient->[id number]&Blood Performed By: #### H EGRM ####[address] [phone] Nucleated RBC/100 WBC (Bld) [Ratio] 0.0 % Normal -1.0-0.0 [facility] Comment on above: Order Comment: Relea se to patient->[id number]&Blood Performed By: #### H EGRM ####[address] [phone] Platelet mean volume (Bld) [Entitic vol] 11.6 fL Normal [facility] Comment on above: Order Comment: Relea se to patient->[id number]&Blood Result Comment: MPV is plateletrange and agedependent Performed By: #### H EGRM ####[address] [phone] Platelets (Bld) [#/Vol] 319 10*3/uL Normal 150-450 [facility] Comment on above: Order Comment: Relea se to patient->[id number]&Blood Performed By: #### H EGRM ####[address] [place] [phone] RBC 4.52 10E12/L Normal 4.10-4.80 [facility] Comment on above: Order Comment: Relea se to patient->[id number]&Blood Performed By: #### H EGRM ####[address] [phone] WBC (Bld) [#/Vol] 8.2 10*3/uL Normal 4.5-13.0 [facility] Comment on above: Order Comment: Relea se to patient->[id number]&Blood Performed By: #### H EGRM ####[address] [phone] No Panel Informationon 05-28 Interpretation and review of laboratory results Abnormal [facility] Release to patient->Automatic [facility] LAB [facility] Progress Noteon 05-28-2023 [employer] Authentication Interface Message Text Normal [facility] T4, freeon 05-28-2023 Free T4 [Mass/Vol] 1.6 ng/dL High 0.8 - 1.5 ng/dL [facility] T4,Freeon 05-28-2023 Free T4 [Mass/Vol] 1.6 ng/dL High 0.8-1.5 [facility] Comment on above: Order Comment: Relea se to patient->[id number]&Blood Performed By: #### T 4FR ####[address] [phone] TSHon 05-28-2023 TSH Qn 0.402 m[IU]/L Low [facility] TSH 0.402 uIU/mL Low 0.500-4.300 [facility] Comment on above: Order Comment: Relea se to patient->[id number]&Blood Performed By: #### T SH ####[address] [phone] Vitamin D 25 OHon 05-28-2023 25 OH Vitamin D 27 ng/mL Low 30-100 [facility] Comment on above: Reference ranges pro vided by [facility] Laboratory are based on Endocrine Society Guidelines: Level: Characterization < 21 ng/mL: Vitamin D deficiency 21-29 ng/mL: Suboptimal Vitamin D status 30-100 ng/mL: Optimal Vitamin D status >100 ng/mL: Potentially toxic Vitamin D effects Order Comment: Relea se to patient->[id number]&Blood Result Comment: Refe rence ranges provided by [facility] Laboratory are based onEndocrine Society Guidelines:Level: Characterization< 21 ng/mL: Vitamin D uownjdzcbw13-74 ng/mL: Suboptimal Vitamin D pkyzhv99-591 ng/mL: Optimal Vitamin D status>100 ng/mL: Potentially toxic Vitamin D effects Performed By: #### V 25DH ####[address] [phone] ICA 512 Antibodieson 023 ICA 512 Antibodies 0.03 nmol/L High <=0.02 [facility] Comment on above: Result Comment: This antibody is consistent with a diagnosis of type 1diabetes mellitus. ADDITIONAL INFORMATION This test was developed and its performance characteristicsdetermined by [facility] in a manner consistent with CLIArequirements. This test has not been cleared or approved bythe U.S. Food and Drug Administration.Test Performed by:[address] [id number] Director: Kim Pham M.D. Ph.D.; CLIA# [id number] Performed By: #### I CAAB ####[address] [phone] Zinc Transporter 8 (ZnT8) An tibody, Serumon 04-27-2023 Zinc Transporter 8 (ZnT8) Antibody, Serum >500 High <15.0 [facility] Comment on above: Result Comment: This antibody is consistent with a diagnosis of type 1diabetes mellitus. ADDITIONAL INFORMATION This test has been modified from the family resource management specialist'sinstructions. Its performance characteristics weredetermined by [facility] in a manner consistent with CLIArequirements. This test has not been cleared or approved bythe U.S. Food and Drug Administration.Test Performed by:[place] [id number] Director: Kim Pham M.D. Ph.D.; CLIA# [id number] Performed By: #### E ZNT8 ####[address] [phone] BREN 65 Autoantibodieson 03-30 Anti BREN (65) Ab 0.37 nmol/L High <= 0.02 [facility] Comment on above: Result Comment: The following antibody was identified: Glutamic AcidDecarboxylase. * This profile is consistent withpredisposition to thyrogastric disorders, includingthyroiditis, pernicious anemia, and type 1 diabetes, buthas low specificity for neurological autoimmunity. JWU84hkcfljox values less than 2.00 nmol/L have a lower positivepredictive value for neurological autoimmunity than valuesof 20.0 nmol/L and higher. * ADDITIONAL INFORMATION This test was developed and its performance characteristicsdetermined by [facility] in a manner consistent with CLIArequirements. This test has not been cleared or approved bythe U.S. Food and Drug Administration.Test Performed by:[address] [id number] Director: Kim Pham M.D. Ph.D.; CLIA# [id number] Performed By: #### G AD ####[address] [phone] Insulin Antibodieson 10-28-2 023 Insulin Antibodies 0.00 nmol/L Normal 0.00-0.02 [facility] Comment on above: Result Comment: ---- ADDITIONAL INFORMATION This test was developed and its performance characteristicsdetermined by [facility] in a manner consistent with CLIArequirements. This test has not been cleared or approved bythe U.S. Food and Drug Administration.Test Performed by:[address] [address]Lzc Director: Kim Pham M.D. Ph.D.; CLIA# [id number] Performed By: #### I NSAB ####[facility] [address] [phone] Progress Noteon 04-24-2023 [employer] Authentication Interface Message Text Normal [facility] Anti-Thyroidperoxidaseon Anti-Thyroidperoxidase <3.0 Normal 0.0-5.5 [facility] Comment on above: Result Comment: Test ing Performed:[facility].[address] [place] [address] Performed By: #### T POXD ####[facility] [address] [phone] Glucose by Meteron 3 Glucose [Mass/Vol] 140 mg/dL High 70-99 [facility] Comment on above: Bedside glucose is a screening procedure. The bedside glucose strip is calibrated to deliver plasma glucose levels. Glucose meter values <45 mg/dl and >450 mg/dl must be confirmed with a plasma or whole blood glucose performed in the lab. Whole blood glucose results are 10-15% lower than plasma glucose results. Result Comment: Beds rodríguez glucose is a screening procedure. The bedside glucosestrip is calibrated to deliver plasma glucose levels. Glucosemeter values <45 mg/dl and >450 mg/dl must be confirmed with aplasma or whole blood glucose performed in the lab. Wholeblood glucose results are 10-15% lower than plasma glucoseresults. Performed By: #### G LUME ####[facility] [address] [phone] Glucose [Mass/Vol] 214 mg/dL High [address] [place] [address] Comment on above: Bedside glucose is a screening procedure. The bedside glucose strip is calibrated to deliver plasma glucose levels. Glucose meter values <45 mg/dl and >450 mg/dl must be confirmed with a plasma or whole blood glucose performed in the lab. Whole blood glucose results are 10-15% lower than plasma glucose results. Result Comment: Beds rodríguez glucose is a screening procedure. The bedside glucosestrip is calibrated to deliver plasma glucose levels. Glucosemeter values <45 mg/dl and >450 mg/dl must be confirmed with aplasma or whole blood glucose performed in the lab. Wholeblood glucose results are 10-15% lower than plasma glucoseresults. Performed By: #### G RADHIKA ####[address] [phone] Glucose by meteron 3 Interpretation and review of laboratory results Abnormal [facility] Interpretation and review of laboratory results Abnormal [facility] Glucose by Meteron 3 Glucose [Mass/Vol] 244 mg/dL [place] [address] [place] [address] Comment on above: Bedside glucose is a screening procedure. The bedside glucose strip is calibrated to deliver plasma glucose levels. Glucose meter values <45 mg/dl and >450 mg/dl must be confirmed with a plasma or whole blood glucose performed in the lab. Whole blood glucose results are 10-15% lower than plasma glucose results. Result Comment: Beds rodríguez glucose is a screening procedure. The bedside glucosestrip is calibrated to deliver plasma glucose levels. Glucosemeter values <45 mg/dl and >450 mg/dl must be confirmed with aplasma or whole blood glucose performed in the lab. Wholeblood glucose results are 10-15% lower than plasma glucoseresults. Performed By: #### G RADHIKA ####[address] [phone] Glucose [Mass/Vol] 289 mg/dL High 7099 [facility] Comment on above: Bedside glucose is a screening procedure. The bedside glucose strip is calibrated to deliver plasma glucose levels. Glucose meter values <45 mg/dl and >450 mg/dl must be confirmed with a plasma or whole blood glucose performed in the lab. Whole blood glucose results are 10-15% lower than plasma glucose results. Result Comment: Beds rodríguez glucose is a screening procedure. The bedside glucosestrip is calibrated to deliver plasma glucose levels. Glucosemeter values <45 mg/dl and >450 mg/dl must be confirmed with aplasma or whole blood glucose performed in the lab. Wholeblood glucose results are 10-15% lower than plasma glucoseresults. Performed By: #### G RADHIKA ####[address] [phone] Glucose [Mass/Vol] 79 mg/dL Normal 70-99 [facility] Comment on above: Bedside glucose is a screening procedure. The bedside glucose strip is calibrated to deliver plasma glucose levels. Glucose meter values <45 mg/dl and >450 mg/dl must be confirmed with a plasma or whole blood glucose performed in the lab. Whole blood glucose results are 10-15% lower than plasma glucose results. Result Comment: Beds rodríguez glucose is a screening procedure. The bedside glucosestrip is calibrated to deliver plasma glucose levels. Glucosemeter values <45 mg/dl and >450 mg/dl must be confirmed with aplasma or whole blood glucose performed in the lab. Wholeblood glucose results are 10-15% lower than plasma glucoseresults. Performed By: #### G RADHIKA ####[address] [phone] Glucose [Mass/Vol] 115 mg/dL High 70-99 [facility] Comment on above: Bedside glucose is a screening procedure. The bedside glucose strip is calibrated to deliver plasma glucose levels. Glucose meter values <45 mg/dl and >450 mg/dl must be confirmed with a plasma or whole blood glucose performed in the lab. Whole blood glucose results are 10-15% lower than plasma glucose results. Result Comment: Beds rodríguez glucose is a screening procedure. The bedside glucosestrip is calibrated to deliver plasma glucose levels. Glucosemeter values <45 mg/dl and >450 mg/dl must be confirmed with aplasma or whole blood glucose performed in the lab. Wholeblood glucose results are 10-15% lower than plasma glucoseresults. Performed By: #### G RADHIKA ####[facility] [address] [phone] Glucose [Mass/Vol] 301 mg/dL High 70-99 [facility] Comment on above: Bedside glucose is a screening procedure. The bedside glucose strip is calibrated to deliver plasma glucose levels. Glucose meter values <45 mg/dl and >450 mg/dl must be confirmed with a plasma or whole blood glucose performed in the lab. Whole blood glucose results are 10-15% lower than plasma glucose results. Result Comment: Beds rodríguez glucose is a screening procedure. The bedside glucosestrip is calibrated to deliver plasma glucose levels. Glucosemeter values <45 mg/dl and >450 mg/dl must be confirmed with aplasma or whole blood glucose performed in the lab. Wholeblood glucose results are 10-15% lower than plasma glucoseresults. Performed By: #### G RADHIKA ####[address] [phone] Glucose [Mass/Vol] 288 mg/dL [facility] 70-99 [facility] Comment on above: Bedside glucose is a screening procedure. The bedside glucose strip is calibrated to deliver plasma glucose levels. Glucose meter values <45 mg/dl and >450 mg/dl must be confirmed with a plasma or whole blood glucose performed in the lab. Whole blood glucose results are 10-15% lower than plasma glucose results. Result Comment: Beds rodríguez glucose is a screening procedure. The bedside glucosestrip is calibrated to deliver plasma glucose levels. Glucosemeter values <45 mg/dl and >450 mg/dl must be confirmed with aplasma or whole blood glucose performed in the lab. Wholeblood glucose results are 10-15% lower than plasma glucoseresults. Performed By: #### G RADHIKA ####[facility] [address] [phone] Glucose [Mass/Vol] 233 mg/dL High 70-99 [facility] Comment on above: Bedside glucose is a screening procedure. The bedside glucose strip is calibrated to deliver plasma glucose levels. Glucose meter values <45 mg/dl and >450 mg/dl must be confirmed with a plasma or whole blood glucose performed in the lab. Whole blood glucose results are 10-15% lower than plasma glucose results. Result Comment: Beds rodríguez glucose is a screening procedure. The bedside glucosestrip is calibrated to deliver plasma glucose levels. Glucosemeter values <45 mg/dl and >450 mg/dl must be confirmed with aplasma or whole blood glucose performed in the lab. Wholeblood glucose results are 10-15% lower than plasma glucoseresults. Performed By: #### G RADHIKA ####[address] [phone] Glucose by meteron Interpretation and review of laboratory results Abnormal [facility] Interpretation and review of laboratory results Abnormal [facility] Interpretation and review of laboratory results Abnormal [facility] Interpretation and review of laboratory results Abnormal [facility] Interpretation and review of laboratory results Abnormal [facility] Interpretation and review of laboratory results Abnormal [facility] Ketoneson 04-21-2023 Ketones Ql (U) Negative Normal Negative [facility] Comment on above: Order Comment: Relea se to patient->[id number]&Urine Performed By: #### K ETOU ####[address] [phone] Ketones Ur Negative Negative mg/dL [facility] Release to patient->Automatic [facility] LAB [facility] Ketones Ql (U) 2+ mg/dL Abnormal Negative [facility] Comment on above: Order Comment: Relea se to patient->[id number]&Urine Performed By: #### K ETOU ####[address] [phone] Interpretation and review of laboratory results Abnormal [facility] Ketones Ur 2+ Abnormal Negative mg/dL [facility] Release to patient->Automatic [facility] LAB [facility] Transglutaminase IgAon 04-21 Transglutaminase IgA 2.27 AU/mL Normal 0.00-8.99 [facility] Comment on above: NEGATIVE Interpretation of Results: Negative: <9.0 AU/mL Equivocal: 9.0-16.0 AU/mL Positive: >16.0 AU/mL Method: The anti-tTG antibodies were determined using an ANN-based commercially available kit (Eu-tTG [employer]trans[employer], [facility], [place]). Result Comment: NEGA TIVEInterpretation of Results:Negative: <9.0 AU/mLEquivocal: 9.0-16.0 AU/mLPositive: >16.0 AU/mLMethod: The anti-tTG antibodies were determined using anELISA-based commercially available kit(Eu-tTG [employer], [facility], [place]). Performed By: #### T RGLA ####[facility] [address] [phone] [facility] BUNon 04-20-2023 Urea nitrogen [Mass/Vol] 10 mg/dL 4 - 19 mg/dL [facility] Creatinineon 04-20-2023 Creatinine [Mass/Vol] 0.46 mg/dL Low 0.50-1.00 [facility] Comment on above: Order Comment: Relea se to patient->[id number]&Blood Performed By: #### C REAT ####[facility] [address] [phone] Creatinine, serumon 04-20-20 Creatinine [Mass/Vol] 0.46 mg/dL Low 0.50 - 1.00 mg/dL [facility] Interpretation and review of laboratory results Abnormal [facility] ED Provider Progress Noteon 04-20-2023 [employer] Authentication Interface Message Text Normal [facility] ED Stat Panelon 10-23-2023 Calcium, Ionized WB 4.37 mg/dL Low 4.60-5.28 [facility] Comment on above: Order Comment: Relea se to patient->[id number]&Blood Performed By: #### E DPAN ####[address] [phone] CO2 [Moles/Vol] 22.7 mmol/L Low 24.0-30.0 [facility] Comment on above: Order Comment: Relea se to patient->[id number]&Blood Performed By: #### E MARY LOUN ####[address] [phone] Glucose [Mass/Vol] 305 mg/dL High 70-99 [facility] Comment on above: Order Comment: Relea se to patient->[id number]&Blood Performed By: #### E DPAN ####[address] [phone] HCO3 (Bld) [Moles/Vol] 21.7 mmol/L Low 22.0-28.0 [facility] Comment on above: Order Comment: Relea se to patient->[id number]&Blood Performed By: #### E DPAN ####[address] [phone] Hemoglobin (Bld) [Mass/Vol] 12.9 g/dL Normal 12.0-16.0 [facility] Comment on above: Order Comment: Relea se to patient->[id number]&Blood Performed By: #### E DPAN ####[address] [phone] Lactate,WB 1.5 mmol/L Normal 0.5-1.6 [facility] Comment on above: Order Comment: Relea se to patient->[id number]&Blood Performed By: #### E DPAN ####[address] [phone] O2 Hgb, venous 90.4 % T.Hgb Normal [facility] Comment on above: Order Comment: Relea se to patient->[id number]&Blood Result Comment: No r eference range established for this specimen type Performed By: #### E DPAN ####[facility] [address] [phone] Oxygen saturation in Blood 94.0 % Normal [facility] Comment on above: No reference range e stablished for this specimen type Order Comment: Relea se to patient->[id number]&Blood Result Comment: No r eference range established for this specimen type Performed By: #### E DPAN ####[facility] [address] [phone] pCO2, venous 32.0 mm Hg Low 38.0-52.0 [facility] Comment on above: Order Comment: Relea se to patient->[id number]&Blood Performed By: #### E DPAN ####[facility] [address] [phone] pH 7.446 Normal 7.350-7.450 [facility] Comment on above: Order Comment: Relea se to patient->[id number]&Blood Performed By: #### E DPAN ####[facility] [address] [phone] pH, venous 7.446 High 7.280-7.420 [facility] Comment on above: Order Comment: Relea se to patient->[id number]&Blood Performed By: #### E DPAN ####[facility] [address] [phone] pO2, venous 62.0 mm Hg Normal [facility] Comment on above: Order Comment: Relea se to patient->[id number]&Blood Result Comment: No r eference range established for this specimen type Performed By: #### E DPAN ####[facility] [address] [phone] Potassium [Moles/Vol] 3.8 mmol/L Normal 3.3-5.1 [facility] Comment on above: Order Comment: Relea se to patient->[id number]&Blood Performed By: #### E MARY LOUN ####[address] [phone] Sodium [Moles/Vol] 134 mmol/L Normal 133-145 [facility] Comment on above: Order Comment: Relea se to patient->[id number]&Blood Performed By: #### E NIC ####[address] [phone] Std Base Excess, venous -1.8 mmol/L Normal [facility] Comment on above: Order Comment: Relea se to patient->[id number]&Blood Result Comment: No r eference range established for this specimen type Performed By: #### E MARY LOUN ####[address] [phone] Temperature, venous 37.0 degrees C Normal A [facility] Comment on above: Order Comment: Relea se to patient->[id number]&Blood Performed By: #### E NIC ####[address] [phone] Chloride, WB 101 [facility] Interpretation and review of laboratory results Abnormal [facility] O2 Hgb Jimmy 90.4 % T.Hgb [facility] Comment on above: No reference range e stablished for this specimen type pCO2, Venous 32.0 Low [facility] pH (Bld) 7.446 [pH] [facility] pH Jimmy 7.446 High [facility] pO2 Venous 62.0 mm Hg [facility] Comment on above: No reference range e stablished for this specimen type Potassium, WB 3.8 [facility] Sodium,WB 134 [facility] STD BE Venous -1.8 mmol/L [facility] Comment on above: No reference range e stablished for this specimen type Temperature, venous 37.0 degrees C [facility] Release to patient->Automatic [facility] LAB [facility] Chloride [Moles/Vol] 101 mmol/L Normal 96-108 [facility] Comment on above: Order Comment: Relea se to patient->[id number]&Blood Performed By: #### E DPAN ####[facility] [address] [phone] Glucose by Meteron 3 Glucose [Mass/Vol] 103 mg/dL High 70- [facility] Comment on above: Bedside glucose is a screening procedure. The bedside glucose strip is calibrated to deliver plasma glucose levels. Glucose meter values <45 mg/dl and >450 mg/dl must be confirmed with a plasma or whole blood glucose performed in the lab. Whole blood glucose results are 10-15% lower than plasma glucose results. Result Comment: Beds rodríguez glucose is a screening procedure. The bedside glucosestrip is calibrated to deliver plasma glucose levels. Glucosemeter values <45 mg/dl and >450 mg/dl must be confirmed with aplasma or whole blood glucose performed in the lab. Wholeblood glucose results are 10-15% lower than plasma glucoseresults. Performed By: #### G LUME ####[address] [phone] Glucose [Mass/Vol] 125 mg/dL High 70-99 [facility] Comment on above: Bedside glucose is a screening procedure. The bedside glucose strip is calibrated to deliver plasma glucose levels. Glucose meter values <45 mg/dl and >450 mg/dl must be confirmed with a plasma or whole blood glucose performed in the lab. Whole blood glucose results are 10-15% lower than plasma glucose results. Result Comment: Beds rodríguez glucose is a screening procedure. The bedside glucosestrip is calibrated to deliver plasma glucose levels. Glucosemeter values <45 mg/dl and >450 mg/dl must be confirmed with aplasma or whole blood glucose performed in the lab. Wholeblood glucose results are 10-15% lower than plasma glucoseresults. Performed By: #### G RADHIKA ####[address] [phone] Glucose [Mass/Vol] 256 mg/dL [address] Comment on above: Bedside glucose is a screening procedure. The bedside glucose strip is calibrated to deliver plasma glucose levels. Glucose meter values <45 mg/dl and >450 mg/dl must be confirmed with a plasma or whole blood glucose performed in the lab. Whole blood glucose results are 10-15% lower than plasma glucose results. Result Comment: Beds rodríguez glucose is a screening procedure. The bedside glucosestrip is calibrated to deliver plasma glucose levels. Glucosemeter values <45 mg/dl and >450 mg/dl must be confirmed with aplasma or whole blood glucose performed in the lab. Wholeblood glucose results are 10-15% lower than plasma glucoseresults. Performed By: #### G RADHIKA ####[address] [phone] Glucose [Mass/Vol] 303 mg/dL [address] Comment on above: Bedside glucose is a screening procedure. The bedside glucose strip is calibrated to deliver plasma glucose levels. Glucose meter values <45 mg/dl and >450 mg/dl must be confirmed with a plasma or whole blood glucose performed in the lab. Whole blood glucose results are 10-15% lower than plasma glucose results. Result Comment: Beds rodríguez glucose is a screening procedure. The bedside glucosestrip is calibrated to deliver plasma glucose levels. Glucosemeter values <45 mg/dl and >450 mg/dl must be confirmed with aplasma or whole blood glucose performed in the lab. Wholeblood glucose results are 10-15% lower than plasma glucoseresults. Performed By: #### G RADHIKA ####[address] [phone] Glucose [Mass/Vol] 395 mg/dL [address] Comment on above: Result Comment: Beds rodríguez glucose is a screening procedure. The bedside glucosestrip is calibrated to deliver plasma glucose levels. Glucosemeter values <45 mg/dl and >450 mg/dl must be confirmed with aplasma or whole blood glucose performed in the lab. Wholeblood glucose results are 10-15% lower than plasma glucoseresults. Performed By: #### G LUME ####[address] [phone] Glucose by meteron 3 Interpretation and review of laboratory results Abnormal [facility] Interpretation and review of laboratory results Abnormal [facility] Interpretation and review of laboratory results Abnormal [facility] Interpretation and review of laboratory results Abnormal [facility] HCG,Urineon 04-20-2023 Beta HCG ( test) Ql (U) Negative Normal [facility] Comment on above: Non females and males-Negative females-Positive Order Comment: Relea se to patient->[id number]&UrineReason for preventing automatic release->OtherRelease to patient->Manual release [id number]&Urine Result Comment: Nonp regnant females and males-Negative females-Positive Performed By: #### H CGUR ####[address] [phone] Immunoglobulin Aon 3 Immunoglobulin A 215 mg/dL 61 - 348 mg/dL [facility] Immunoglobulin A 215 mg/dL Normal 61-348 [facility] Comment on above: Performed By: #### I GA ####[address] [phone] No Panel Informationon 04-20 [facility] Interpretation and review of laboratory results Abnormal [facility] Release to patient->Automatic Reason for preventing automatic release->Other Release to patient->Manual release only [facility] LAB [facility] Release to patient->Automatic [facility] LAB [facility] Phosphoruson 04-20-2023 Phosphate [Mass/Vol] 3.3 mg/dL 2.7 - 4 .5 mg/dL [facility] Phosphate [Mass/Vol] 3.3 mg/dL Normal 2.7-4.5 [facility] Comment on above: Order Comment: Relea se to patient->[id number]&Blood Performed By: #### P HOS ####[address] [phone] Progress Noteon 04-20-2023 [employer] Authentication Interface Message Text Normal [facility] TSH with Reflex to T4, Freeo n 04-20-2023 TSH with reflex to T4, Free 0.862 [facility] TSH with reflex T4FRon 04-20 TSH with reflex T4FR 0.862 uIU/mL Normal 0.500-4.300 A [facility] Comment on above: Performed By: #### T SHR ####[address] [phone] Urea Nitrogenon 04-20-2023 Urea nitrogen [Mass/Vol] 10 mg/dL Normal 4-19 [facility] Comment on above: Order Comment: Relea se to patient->[id number]&Blood Performed By: #### B UN ####[address] [phone] Urinalysis with microscopico n 04-20-2023 Bilirubin Ur Negative Negative mg/dL [facility] Character Clear [facility] Color Ur Colorless [facility] Glucose Ur 4+ Abnormal Normal mg/dL [facility] Hemoglobin Ur 3+ Abnormal Negative RBC's/uL [facility] Ketones Ur 2+ Abnormal Negative mg/dL [facility] Leukocyte Esterase Ur 25 Vamshi Negati ve leuk/ul [facility] Nitrite Ql (U) Negative Negative mg/dl [facility] pH Ur 5.5 [facility] Protein Ur Negative Neg.-Trace mg/dL [facility] Specific gravity (U) [Rel density] 1.014 [facility] Urobilinogen NORMAL Normal mg/dl [facility] Volume Ur 12 ml 12 [facility] Urinalysis, Automated-[place] 04-20-2023 Bacteria Ur Rare /uL [facility] Mucous Ur Small [facility] RBC, Urine 1603.0 /uL High 0.0 - 20.0 /uL [facility] Squamous Epithelial Cells Ur 5 /uL 0 - 20 /uL [facility] WBC UR 31.0 /uL High 0.0 - 20.0 /uL [facility] Urinalysis,Automatedon 04-20 Bacteria Rare Normal [facility] Comment on above: Order Comment: Relea se to patient->[id number]&UrineReason for preventing automatic release->OtherRelease to patient->Manual release [id number]&Urine Performed By: #### U FMIC ####[address] [phone] Mucous Small Normal [facility] Comment on above: Order Comment: Relea se to patient->[id number]&UrineReason for preventing automatic release->OtherRelease to patient->Manual release [id number]&Urine Performed By: #### U FMIC ####[address] [phone] RBC (U) [#/Vol] 1603.0 /uL High 0.0-20.0 [facility] Comment on above: Order Comment: Relea se to patient->[id number]&UrineReason for preventing automatic release->OtherRelease to patient->Manual release [id number]&Urine Performed By: #### U FMIC ####[address] [phone] Squamous Epithelial Cells 5 /uL Normal 0-20 [facility] Comment on above: Order Comment: Relea se to patient->[id number]&UrineReason for preventing automatic release->OtherRelease to patient->Manual release [id number]&Urine Performed By: #### U FMIC ####[address] [phone] WBC (U) [#/Vol] 31.0 /uL High 0.0-20.0 [facility] Comment on above: Order Comment: Relea se to patient->[id number]&UrineReason for preventing automatic release->OtherRelease to patient->Manual release [id number]&Urine Performed By: #### U FMIC ####[address] [phone] Urinalysis,Completeon 2022 Volume 12 ml Normal 12 [facility] Comment on above: Order Comment: Relea se to patient->[id number]&UrineReason for preventing automatic release->OtherRelease to patient->Manual release [id number]&Urine Performed By: #### U ACOM ####[address] [phone] Bilirubin,urine Negative Normal Negative [facility] Comment on above: Order Comment: Relea se to patient->[id number]&UrineReason for preventing automatic release->OtherRelease to patient->Manual release [id number]&Urine Performed By: #### U ACOM ####[address] [phone] Character Clear Normal [facility] Comment on above: Order Comment: Relea se to patient->[id number]&UrineReason for preventing automatic release->OtherRelease to patient->Manual release [id number]&Urine Performed By: #### U ACOM ####[address] [phone] Color (U) Colorless Normal [facility] Comment on above: Order Comment: Relea se to patient->[id number]&UrineReason for preventing automatic release->OtherRelease to patient->Manual release [id number]&Urine Performed By: #### U ACOM ####[address] [phone] Glucose Ql (U) 4+ mg/dL Abnormal Normal [facility] Comment on above: Order Comment: Relea se to patient->[id number]&UrineReason for preventing automatic release->OtherRelease to patient->Manual release [id number]&Urine Performed By: #### U ACOM ####[address] [phone] Ketones Ql (U) 2+ mg/dL Abnormal Negative [facility] Comment on above: Order Comment: Relea se to patient->[id number]&UrineReason for preventing automatic release->OtherRelease to patient->Manual release [id number]&Urine Performed By: #### U ACOM ####[address] [phone] Leukocyte esterase Test strip Ql (U) 25 Vamshi Normal Negative [facility] Comment on above: Order Comment: Relea se to patient->[id number]&UrineReason for preventing automatic release->OtherRelease to patient->Manual release [id number]&Urine Performed By: #### U ACOM ####[address] [phone] Nitrite Ql (U) Negative Normal Negative [facility] Comment on above: Order Comment: Relea se to patient->[id number]&UrineReason for preventing automatic release->OtherRelease to patient->Manual release [id number]&Urine Performed By: #### U ACOM ####[place] [phone] pH, Urine 5.5 Normal 5.0-8.0 [facility] Comment on above: Order Comment: Relea se to patient->[id number]&UrineReason for preventing automatic release->OtherRelease to patient->Manual release [id number]&Urine Performed By: #### U ACOM ####[address] [phone] Protein,Ur Negative Normal Neg.-Trace [facility] Comment on above: Order Comment: Relea se to patient->[id number]&UrineReason for preventing automatic release->OtherRelease to patient->Manual release [id number]&Urine Performed By: #### U ACOM ####[address] [phone] Specific gravity (U) [Rel density] 1.014 Normal 1.005-1.030 [facility] Comment on above: Order Comment: Relea se to patient->[id number]&UrineReason for preventing automatic release->OtherRelease to patient->Manual release [id number]&Urine Performed By: #### U ACOM ####[address] [phone] Urobilinogen NORMAL Normal Normal [facility] Comment on above: Order Comment: Relea se to patient->[id number]&UrineReason for preventing automatic release->OtherRelease to patient->Manual release [id number]&Urine Performed By: #### U ACOM ####[address] [phone] Vitamin D 25 OHon 04-20-2023 25 [place] Vitamin D 26 ng/mL Low 30-100 [facility] Comment on above: Result Comment: Refe rence ranges provided by [facility] are based onEndocrine Society Guidelines:Level: Characterization< 21 ng/mL: Vitamin D -85 ng/mL: Suboptimal Vitamin D qugrlm77-900 ng/mL: Optimal Vitamin D status>100 ng/mL: Potentially toxic Vitamin D effects Performed By: #### V 25DH ####[address] [phone] Vitamin D 25 hydroxyon 04-20 25 [place] Vitamin D 26 ng/mL Low 30 - 100 ng/mL [facility] Comment on above: Reference ranges pro vided by [facility] are based on Endocrine Society Guidelines: Level: Characterization < 21 ng/mL: Vitamin D deficiency 21-29 ng/mL: Suboptimal Vitamin D status 30-100 ng/mL: Optimal Vitamin D status >100 ng/mL: Potentially toxic Vitamin D effects Interpretation and review of laboratory results Abnormal [facility] eGFRon 04-20-2023 eGFR see below [facility] Comment on above: Reference range: > 3 months: >90 ml/min/1.73m^2 Ref. Range change effective 09/21/2017 Unable to calculate EGFR; height not available. - To manually calculate eGFR use Bedside Crowell equation. - (0.41 X height in centimeters)/serum creatinine mg/dL eGFR see below Normal [facility] Comment on above: Order Comment: Relea se to patient->[id number]&Blood Result Comment: Refe rence range:> 3 months:>90 ml/min/1.73m^2Ref. Range change [id number]/2018Unable to calculate EGFR; height not available.-To manually calculate eGFR use Bedside Crowell equation.-(0.41 X height in centimeters)/serum creatinine mg/dL Performed By: #### E GFR ####[address] [phone] Absolute lymphocyte countOrd ered By: Alvarez Nguyen on 04-15-2023 Lymphocytes Auto (Unsp spec) [#/Vol] 2.05 10*3/uL 0.83-4.51 [facility] Basophil percentageOrdered B y: Alvarez Nguyen on 04-15-2023 Basophils/100 WBC (Bld) 0.5 % 0-1 [facility] Bilirubin [Mass/Vol] 0.50 mg/dL 0.20-1.00 [facility] Comment on above: For patients on eltr ombopag therapy, use of Dimension [place] TBIL is not recommended. Chloride [Moles/Vol] 100 mmol/L 98-107 [facility] Eosinophils/100 WBC (Bld) 2.0 % 0-3 [facility] Glucose [Mass/Vol] 430 mg/dL 74-106 [facility] Comment on above: Glucose result great er than or equal to 200 mg/dLsuggests DIABETES MELLITUS per A.D.A. criteria. Neutrophils (Bld) [#/Vol] 5.1 10*3/uL 2.0-7.7 [facility] Neutrophils/100 WBC (Bld) 62.9 % 34-64 [facility] Potassium [Moles/Vol] 3.7 mmol/L 3.5-5.1 [facility] Protein [Mass/Vol] 8.0 g/dL 6.4-8.2 [facility] Sodium [Moles/Vol] 133 mmol/L 136-145 [facility] WBC (Bld) [#/Vol] 8.1 10*3/uL 4.5-13.0 [facility] Basophil percentage 0-5 SEEN /hpf 0-5 [facility] Bilirubin Test strip Ql (U)O rdered By: Alvarez Nguyen on 04-15-2023 Bilirubin Ql (U) Negative Negative [facility] Blood erythrocytes count (nu mber/volume)Ordered By: Alvarez Nguyen on 04-15-2023 RBC (Bld) [#/Vol] 4.44 10*6/uL 4.1-4.8 [facility] Blood hemoglobin measurement (mass/volume)Ordered By: Alvarez Nguyen on 04-15-2023 Hemoglobin (Bld) [Mass/Vol] 11.7 g/dL 12.0-15.0 [facility] Blood lymphocytes/100 leukoc ytesOrdered By: Alvarez Nguyen on 04-15-2023 Lymphocytes/100 WBC (Bld) 25.3 % 25-45 [facility] Blood monocytes/100 leukocyt esOrdered By: Alvarez Nguyen on 04-15-2023 Monocytes/100 WBC (Bld) 9.1 % 3-6 [facility] Blood platelet mean volumeOr dered By: Alvarez Nguyen on 04-15-2023 Platelet mean volume (Bld) [Entitic vol] 12.9 fL 6.2-12.0 [facility] CBC W Auto Differential pane l (Bld)on 04-15-2023 Basophils (Bld) [#/Vol] 0.03 10*3/uL <0.11 k/uL [facility] Basophils/100 WBC (Bld) 0.4 % [facility] Differential cell count method Nom (Bld) Auto [facility] Eosinophils (Bld) [#/Vol] 0.16 10*3/uL <0.46 k/uL [facility] Eosinophils/100 WBC (Bld) 2.3 % [facility] Erythrocyte distribution width (RBC) [Ratio] 15.5 % High 11.5 - 15.0 % [facility] Hematocrit (Bld) [Volume fraction] 38.3 % 36.0 - 46.0 % [facility] Hemoglobin (Bld) [Mass/Vol] 12.4 g/dL 11.5 - 15.5 g/dL [facility] Immature granulocytes (Bld) [#/Vol] <0.10 k/uL [facility] Immature granulocytes/100 WBC (Bld) 0.3 % [facility] Lymphocytes (Bld) [#/Vol] 1.86 10*3/uL 1.00 - 4.00 k/uL [facility] Lymphocytes/100 WBC (Bld) 26.3 % [facility] MCH (RBC) [Entitic mass] 26.8 pg 26.0 - 34.0 pg [facility] MCHC (RBC) [Mass/Vol] 32.4 g/dL 30.5 - 36.0 g/dL [facility] MCV (RBC) [Entitic vol] 82.9 fL 80.0 - 100.0 fL [facility] Monocytes (Bld) [#/Vol] 0.68 10*3/uL <0.87 k/uL [facility] Monocytes/100 WBC (Bld) 9.6 % [facility] Neutrophils (Bld) [#/Vol] 4.32 10*3/uL 1.45 - 7.50 k/uL [facility] Neutrophils/100 WBC (Bld) 61.1 % [facility] Nucleated RBC (Bld) [#/Vol] <0.01 k/uL [facility] Nucleated RBC/100 WBC (Bld) [Ratio] 0.0 /100 WBC [facility] Platelet mean volume (Bld) [Entitic vol] 12.5 fL 9.0 - 12.7 fL [facility] Platelets (Bld) [#/Vol] 248 10*3/uL 150 - 400 k/uL [facility] RBC (Bld) [#/Vol] 4.62 10*6/uL 3.90 - 5.2 0 m/uL [facility] WBC (Bld) [#/Vol] 7.07 10*3/uL 3.70 - 11. 00 k/uL [facility] Comprehensive metabolic 2000 panelon 04-15-2023 Albumin [Mass/Vol] 4.4 g/dL 3.9 - 4.9 g/dL [facility] ALP [Catalytic activity/Vol] 92 U/L High 45 - 87 U/L [facility] ALT [Catalytic activity/Vol] 20 U/L 7 - 38 U/L [facility] Anion gap [Moles/Vol] 12 mmol/L 9 - 18 mmol/L [facility] AST [Catalytic activity/Vol] 15 U/L 13 - 35 U/L [facility] Bilirubin [Mass/Vol] 0.5 mg/dL 0.2 - 1 .3 mg/dL [facility] Calcium [Mass/Vol] 9.5 mg/dL 8.5 - 10. 2 mg/dL [facility] Chloride [Moles/Vol] 96 mmol/L Low 97 - 10 5 mmol/L [facility] CO2 [Moles/Vol] 24 mmol/L 22 - 30 mmol/L [facility] Creatinine [Mass/Vol] 0.59 mg/dL 0.58 - 0.96 mg/dL [facility] Estimated Glomerular Filtration Rate 134 mL/min/1.73m >=60 mL/min/1.73m [facility] Glucose [Mass/Vol] 280 mg/dL High 74 - 99 mg/dL [facility] Potassium [Moles/Vol] 3.9 mmol/L 3.7 - 5.1 mmol/L [facility] Protein [Mass/Vol] 7.3 g/dL 6.3 - 8.0 g/dL [facility] Sodium [Moles/Vol] 132 mmol/L Low 136 - 144 mmol/L [facility] Urea nitrogen [Mass/Vol] 8 mg/dL 7 - 21 mg/dL [facility] Determination of erythrocyte mean corpuscular volume (MCV)Ordered By: Alvarez Nguyen on 04-15-2023 MCV (RBC) [Entitic vol] 84.9 fL 78-96 [facility] Glucose Glucometer (BldC) [M ass/Vol]Ordered By: Alvarez Nguyen on 04-15-2023 Glucose [Mass/Vol] 287 mg/dL 74-106 [facility] Comment on above: MANAGEMENT OF PATIEN T CARE PER NURSING PROTOCOL HCG QUAL UR B/Oon 04-15-2023 status Negative neg - pos [facility] Quality Check Yes [facility] Hematocrit Auto (Bld) [Volum e fraction]Ordered By: Alvarez Nguyen on 04-15-2023 Hematocrit (Bld) [Volume fraction] 37.7 % 37-46 [facility] Ketones Test strip Ql (U)Ord ered By: Alvarez Nguyen on 04-15-2023 Ketones Ql (U) 50 mg/dl Negative [facility] Laboratory - Chemistry and C hemistry - challengeOrdered By: Alvarez Nguyen on 04-15-2023 ALP [Catalytic activity/Vol] 92 U/L 47-119 [facility] ALT [Catalytic activity/Vol] 31 U/L 13-56 [facility] CO2 [Moles/Vol] 24.0 mmol/L 21.0-32.0 [facility] Globulin (S) [Mass/Vol] 4.7 g/dL 2.2-4.2 [facility] Urea nitrogen/Creatinine [Mass ratio] 12.2 mg/mg 10-20 [facility] HCG ( test) Ql (U) Negative [facility] Comment on above: Very dilute urine sp ecimens, as indicated by a low specificgravity, may not contain resources representative levels of hCG. If is still suspected, a first morning urinespecimen should be collected 48 hours later and tested. Laboratory - Hematology and Cell countsOrdered By: Alvarez Nguyen on 04-15-2023 Erythrocyte distribution width (RBC) [Entitic vol] 47.4 fL 35.1-43.9 [facility] Erythrocyte distribution width (RBC) [Ratio] 15.3 % 11.6-14.6 [facility] Immature granulocytes/100 WBC (Bld) 0.200 % 0.0-0.9 [facility] Comment on above: IG% - Immature Granu locytes (promyelocytes, myelocytes and metamyelocytes) > 1% indicates that a LEFT SHIFT is Present. MCH (RBC) [Entitic mass] 26.4 pg 25.0-35.0 [facility] Nucleated RBC/100 WBC (Bld) [Ratio] 0 % 0-5 [facility] MCHC Auto (RBC) [Mass/Vol]Or dered By: Alvarez Nguyen on 04-15-2023 MCHC (RBC) [Mass/Vol] 31.0 g/dL 32-36 [facility] Mucus LM Ql (Urine sed)Order ed By: Alvarez Nguyen on 04-15-2023 Mucus Ql (Urine sed) 0 SEEN /hpf [facility] Nitrite Test strip Ql (U)Ord ered By: Alvarez Nguyen on 04-15-2023 Nitrite Ql (U) Negative Negative [facility] No Panel InformationOrdered By: Alvarez Nguyen on 04-15-2023 Estimated Creatinine Clearance Calc 104.16 ml/min [facility] Estimated GFR (MDRD) Amer 116 mL/min >60 [facility] Comment on above: GFR Calc Estimated GFR (MDRD) Non-Af Amer 96 mL/min >60 [facility] Comment on above: Non- GFR Calc Platelets bldOrdered By: John Nguyen on 04-15-2023 Platelets (Bld) [#/Vol] 232 10*3/uL 150-450 [facility] Protein Test strip Ql (U)Ord ered By: Alvarez Nguyen on 04-15-2023 Protein Ql (U) 15 mg/dl Negative [facility] Serum or plasma acetone nica urement (mass/volume)Ordered By: Alvarez Nguyen on 04-15-2023 Acetone [Mass/Vol] Negative NEG [facility] Serum or plasma albumin nica urement (mass/volume)Ordered By: Alvarez Nguyen on 04-15-2023 Albumin [Mass/Vol] 3.3 g/dL 3.2-5.0 [facility] Serum or plasma albumin/glob ulin mass ratioOrdered By: Alvarez Nguyen on 04-15-2023 Albumin/Globulin [Mass ratio] 0.7 {ratio} 0.9-2.4 [facility] Serum or plasma calcium nica urement (mass/volume)Ordered By: Alvarez Nguyen on 04-15-2023 Calcium [Mass/Vol] 8.9 mg/dL 8.5-10.1 [facility] Serum or plasma creatinine m easurement (mass/volume)Ordered By: Alvarez Nguyen on 04-15-2023 Creatinine [Mass/Vol] 0.82 mg/dL 0.55-1.02 [facility] Comment on above: The validity of the calculated GFR & GFRAA in patients over 70 years has not been determined. Clinical correlation is essential. Serum or plasma urea nitroge n measurement (mass/volume)Ordered By: Alvarez Nguyen on 04-15-2023 Urea nitrogen [Mass/Vol] 10 mg/dL 7-18 [facility] Squamous epithelial cells de tection in urine sediment by light microscopyOrdered By: Alvarez Nguyen on 04-15-2023 Epithelial cells.squamous LM Ql (Urine sed) 0-5 SEEN /hpf 5-10 [facility] Thin prep Papanicolaou smear with manual screeningOrdered By: Alvarez Nguyen on 04-15-2023 Thin prep Papanicolaou smear with manual screening 15 U/L 15-37 [facility] Thin prep Papanicolaou smear with manual screening 9 5-15 [facility] UA DIP, URINE (POC)on 2022 BILIRUBIN UA (POCT) Small Abnormal Negative [facility] CLARITY UA (POCT) Clear [facility] COLOR UA (POCT) Yellow [facility] GLUCOSE UA (POCT) 250 mg/dL Abnormal Negative mg/dL [facility] Hemoglobin Ql (U) Trace-intact Abnormal Negative [facility] KETONE UA (POCT) 80 mg/dL Abnormal Negative mg/dL [facility] LEUKOCYTES UA (POCT) Negative Negative [facility] NITRITE UA (POCT) Negative Negative [facility] PH UA (POCT) 5.5 4.5 - 8.0 [facility] Protein Ql (U) 30 mg/dL Abnormal Negative mg/dL [facility] SPECIFIC GRAVITY UA (POCT) >=1.030 1.005 - 1.030 [facility] UROBILINOGEN UA (POCT) 0.2 E.U./dL Normal E.U./ dL [facility] Urine blood detectionOrdered By: Alvarez Nguyen on 04-15-2023 RBC Ql (U) 50 /ul Negative [facility] RBC Ql (U) 0 SEEN /hpf 0-5 [facility] Urine clarityOrdered By: John Nguyen on 04-15-2023 Clarity (U) Sl. Cloudy Clear [facility] Urine color determinationOrd ered By: Alvarez Nguyen on 04-15-2023 Color (U) Yellow Yellow [facility] Urine glucose detectionOrder ed By: Alvarez Nguyen on 04-15-2023 Glucose Ql (U) 1000 mg/dl Normal [facility] Urine leukocyte esterase det ection by dipstickOrdered By: Alvarez Nguyen on 04-15-2023 Leukocyte esterase Test strip Ql (U) 25 /ul Negative [facility] Urine pHOrdered By: Alvarez monk on 04-15-2023 pH (U) 6.5 [pH] 5.0 - 8.0 [facility] Urine sediment bacteria coun t by microscopy (number/high power field)Ordered By: Alvarez Nguyen on 04-15-2023 Bacteria LM.HPF (Urine sed) [#/Area] 0 /[HPF] None Seen [facility] Urine specific gravity measu rementOrdered By: Alvarez Nguyen on 04-15-2023 Specific gravity (U) [Rel density] 1.010 1.002-1.030 [facility] Urobilinogen Auto test strip Ql (U)Ordered By: Alvarez Nguyen on 04-15-2023 Urobilinogen Ql (U) Normal mg/dl Normal [facility] Whole blood hemoglobin A1c/t otal hemoglobin ratio (mass fraction)Ordered By: Alvarez Nguyen on 04-15-2023 HbA1c (Bld) [Mass fraction] 8.4 % 3.8-5.6 [facility] Comment on above: Normal < 5.7 % Predi abetic 5.7 - 6.4 % Diabetic >or= 6.5 % Please note range changes. XR Abdomen Viewson 3 IMPRESSION: Nonobstructive bowel gas pattern. This report has been created using voice recognition software [facility] CLINICAL HISTORY: kidney stones COMPARISON: None PROCEDURE COMMENTS: Single view of the abdomen. FINDINGS: There is an umbilical piercing. There are no air-filled dilated loops of bowel. A small amount of stool is throughout the colon. No calcification is identified. The lung bases are clear. The bones are normal. [facility] RADIOLOGY Rachel Michaud M D - 03/27/2023 CLINICAL HISTORY: kidney stones COMPARISON: None PROCEDURE COMMENTS: Single view of the abdomen. FINDINGS: There is an umbilical piercing. There are no air-filled dilated loops of bowel. A small amount of stool is throughout the colon. No calcification is identified. The lung bases are clear. The bones are normal. IMPRESSION: Nonobstructive bowel gas pattern. This report has been created using voice recognition software [facility] Radiology Study observation (narrative) [facility] XR Abdomen ViewsOrdered By: Rachel Michaud on 03-27-2023 [facility] Work Phone: Absolute lymphocyte countOrd ered By: Peterson Prado on 03-24-2023 Lymphocytes Auto (Unsp spec) [#/Vol] 1.93 10*3/uL 0.83-4.51 [facility] Basophil percentageOrdered B y: Peterson Prado on 03-24-2023 Basophils/100 WBC (Bld) 0.4 % 0-1 [facility] Chloride [Moles/Vol] 105 mmol/L 98-107 [facility] Eosinophils/100 WBC (Bld) 1.0 % 0-3 [facility] Glucose [Mass/Vol] 326 mg/dL 74-106 [facility] Comment on above: Glucose result great er than or equal to 200 mg/dLsuggests DIABETES MELLITUS per A.D.A. criteria. Neutrophils (Bld) [#/Vol] 6.1 10*3/uL 2.0-7.7 [facility] Neutrophils/100 WBC (Bld) 67.3 % 34-64 [facility] Potassium [Moles/Vol] 3.7 mmol/L 3.5-5.1 [facility] Sodium [Moles/Vol] 136 mmol/L 136-145 [facility] WBC (Bld) [#/Vol] 9.1 10*3/uL 4.5-13.0 [facility] Basophil percentageOrdered B y: ED PROVIDER on 03-24-2023 Basophil percentage 0-5 SEEN /hpf 0-5 [facility] Beta hCG serum qualOrdered B y: Peterson Prado on 03-24-2023 Beta HCG ( test) Ql Negative [facility] Bilirubin Test strip Ql (U)O rdered By: ED PROVIDER on 03-24-2023 Bilirubin Ql (U) Negative Negative [facility] Blood erythrocytes count (nu mber/volume)Ordered By: Peterson Prado on 03-24-2023 RBC (Bld) [#/Vol] 4.20 10*6/uL 4.1-4.8 [facility] Blood hemoglobin measurement (mass/volume)Ordered By: Peterson Prado on 03-24-2023 Hemoglobin (Bld) [Mass/Vol] 11.2 g/dL 12.0-15.0 [facility] Blood lymphocytes/100 leukoc ytesOrdered By: Peterson Prado on 03-24-2023 Lymphocytes/100 WBC (Bld) 21.2 % 25-45 [facility] Blood monocytes/100 leukocyt esOrdered By: Peterson Prado on 03-24-2023 Monocytes/100 WBC (Bld) 9.1 % 3-6 [facility] Blood platelet mean volumeOr dered By: Peterson Prado on 03-24-2023 Platelet mean volume (Bld) [Entitic vol] 12.3 fL 6.2-12.0 [facility] Culture, urineOrdered By: Deedee Prado on 03-24-2023 Bacteria identified Cx Nom (U) Culture exhibits no growth. [facility] Bacteria identified Cx Nom (U) Culture exhibits no growth. [facility] Determination of erythrocyte mean corpuscular volume (MCV)Ordered By: Peterson Prado on 03-24-2023 MCV (RBC) [Entitic vol] 84.0 fL 78-96 [facility] Hematocrit Auto (Bld) [Volum e fraction]Ordered By: Peterson Prado on 03-24-2023 Hematocrit (Bld) [Volume fraction] 35.3 % 37-46 [facility] Ketones Test strip Ql (U)Ord ered By: ED PROVIDER on 03-24-2023 Ketones Ql (U) Negative Negative [facility] Laboratory - Chemistry and C hemistry - challengeOrdered By: Peterson Prado on 03-24-2023 CO2 [Moles/Vol] 25.0 mmol/L 21.0-32.0 [facility] Urea nitrogen/Creatinine [Mass ratio] 8.4 mg/mg 10-20 [facility] Laboratory - Hematology and Cell countsOrdered By: Peterson Prado on 03-24-2023 Erythrocyte distribution width (RBC) [Entitic vol] 49.6 fL 35.1-43.9 [facility] Erythrocyte distribution width (RBC) [Ratio] 16.3 % 11.6-14.6 [facility] Immature granulocytes/100 WBC (Bld) 1.000 % 0.0-0.9 [facility] Comment on above: IG% - Immature Granu locytes (promyelocytes, myelocytes and metamyelocytes) > 1% indicates that a LEFT SHIFT is Present. MCH (RBC) [Entitic mass] 26.7 pg 25.0-35.0 [facility] Nucleated RBC/100 WBC (Bld) [Ratio] 0 % 0-5 [facility] MCHC Auto (RBC) [Mass/Vol]Or dered By: Peterson Prado on 03-24-2023 MCHC (RBC) [Mass/Vol] 31.7 g/dL 32-36 [facility] Mucus LM Ql (Urine sed)Order ed By: ED PROVIDER on 03-24-2023 Mucus Ql (Urine sed) 0 SEEN /hpf [facility] Nitrite Test strip Ql (U)Ord ered By: ED PROVIDER on 03-24-2023 Nitrite Ql (U) Negative Negative [facility] No Panel InformationOrdered By: Peterson Prado on 03-24-2023 Estimated Creatinine Clearance Calc 101.68 ml/min [facility] Estimated GFR (MDRD) Amer 114 mL/min >60 [facility] Comment on above: GFR Calc Estimated GFR (MDRD) Non-Af Amer 94 mL/min >60 [facility] Comment on above: Non- GFR Calc Platelets bldOrdered By: Saad Prado on 03-24-2023 Platelets (Bld) [#/Vol] 237 10*3/uL 150-450 [facility] Protein Test strip Ql (U)Ord ered By: ED PROVIDER on 03-24-2023 Protein Ql (U) Negative Negative [facility] Serum or plasma calcium nica urement (mass/volume)Ordered By: Peterson Prado on 03-24-2023 Calcium [Mass/Vol] 8.9 mg/dL 8.5-10.1 [facility] Serum or plasma creatinine m easurement (mass/volume)Ordered By: Peterson Prado on 03-24-2023 Creatinine [Mass/Vol] 0.84 mg/dL 0.55-1.02 [facility] Comment on above: The validity of the calculated GFR & GFRAA in patients over 70 years has not been determined. Clinical correlation is essential. Serum or plasma urea nitroge n measurement (mass/volume)Ordered By: Peterson Prado on 03-24-2023 Urea nitrogen [Mass/Vol] 7 mg/dL 7-18 [facility] Squamous epithelial cells de tection in urine sediment by light microscopyOrdered By: ED PROVIDER on 03-24-2023 Epithelial cells.squamous LM Ql (Urine sed) 0-5 SEEN /hpf 5-10 [facility] Thin prep Papanicolaou smear with manual screeningOrdered By: Peterson Prado on 03-24-2023 Thin prep Papanicolaou smear with manual screening 6 5-15 [facility] Urine blood detectionOrdered By: ED PROVIDER on 03-24-2023 RBC Ql (U) Negative Negative [facility] RBC Ql (U) 0 SEEN /hpf 0-5 [facility] Urine clarityOrdered By: ED PROVIDER on 03-24-2023 Clarity (U) Clear Clear [facility] Urine color determinationOrd ered By: ED PROVIDER on 03-24-2023 Color (U) Yellow Yellow [facility] Urine glucose detectionOrder ed By: ED PROVIDER on 03-24-2023 Glucose Ql (U) 1000 mg/dl Normal [facility] Urine leukocyte esterase det ection by dipstickOrdered By: ED PROVIDER on 03-24-2023 Leukocyte esterase Test strip Ql (U) 100 /ul Negative [facility] Urine pHOrdered By: ED PROVI OBEY on 03-24-2023 pH (U) 7.0 [pH] 5.0 - 8.0 [facility] Urine sediment bacteria coun t by microscopy (number/high power field)Ordered By: ED PROVIDER on 03-24-2023 Bacteria LM.HPF (Urine sed) [#/Area] 0 /[HPF] None Seen [facility] Urine specific gravity measu rementOrdered By: ED PROVIDER on 03-24-2023 Specific gravity (U) [Rel density] 1.010 1.002-1.030 [facility] Urobilinogen Auto test strip Ql (U)Ordered By: ED PROVIDER on 03-24-2023 Urobilinogen Ql (U) Normal mg/dl Normal [facility] Absolute lymphocyte countOrd ered By: Maria Antonia Miller on 02-28-2023 Lymphocytes Auto (Unsp spec) [#/Vol] 2.55 10*3/uL 0.83-4.51 [facility] Basophil percentageOrdered B y: Maria Antonia Miller on 02-28-2023 Basophils/100 WBC (Bld) 0.6 % 0-1 [facility] Chloride [Moles/Vol] 104 mmol/L 98-107 [facility] Eosinophils/100 WBC (Bld) 2.3 % 0-3 [facility] Glucose [Mass/Vol] 94 mg/dL 74-106 [facility] Neutrophils (Bld) [#/Vol] 4.9 10*3/uL 2.0-7.7 [facility] Neutrophils/100 WBC (Bld) 57.7 % 34-64 [facility] Potassium [Moles/Vol] 3.2 mmol/L 3.5-5.1 [facility] Sodium [Moles/Vol] 137 mmol/L 136-145 [facility] WBC (Bld) [#/Vol] 8.4 10*3/uL 4.5-13.0 [facility] Basophil percentageOrdered B y: Will Portillo on 02-28-2023 Basophil percentage 0-5 SEEN /hpf 0-5 [facility] Bilirubin Test strip Ql (U)O rdered By: Will Portillo on 02-28-2023 Bilirubin Ql (U) Negative Negative [facility] Blood erythrocytes count (nu mber/volume)Ordered By: Maria Antonia Miller on 02-28-2023 RBC (Bld) [#/Vol] 4.12 10*6/uL 4.1-4.8 [facility] Blood hemoglobin measurement (mass/volume)Ordered By: Maria Antonia Miller on 02-28-2023 Hemoglobin (Bld) [Mass/Vol] 10.9 g/dL 12.0-15.0 [facility] Blood lymphocytes/100 leukoc ytesOrdered By: Maria Antonia Miller on 02-28-2023 Lymphocytes/100 WBC (Bld) 30.3 % 25-45 [facility] Blood monocytes/100 leukocyt esOrdered By: Maria Antonia Miller on 02-28-2023 Monocytes/100 WBC (Bld) 8.6 % 3-6 [facility] Blood platelet mean volumeOr dered By: Maria Antonia Miller on 02-28-2023 Platelet mean volume (Bld) [Entitic vol] 11.5 fL 6.2-12.0 [facility] Determination of erythrocyte mean corpuscular volume (MCV)Ordered By: Maria Antonia Miller on 02-28-2023 MCV (RBC) [Entitic vol] 85.0 fL 78-96 [facility] Hematocrit Auto (Bld) [Volum e fraction]Ordered By: Maria Antonia Miller on 02-28-2023 Hematocrit (Bld) [Volume fraction] 35.0 % 37-46 [facility] Ketones Test strip Ql (U)Ord ered By: Will Portillo on 02-28-2023 Ketones Ql (U) Negative Negative [facility] Laboratory - Chemistry and C hemistry - challengeOrdered By: Maria Antonia Miller on 02-28-2023 CO2 [Moles/Vol] 26.0 mmol/L 21.0-32.0 [facility] Urea nitrogen/Creatinine [Mass ratio] 9.0 mg/mg 10-20 [facility] Laboratory - Chemistry and C hemistry - challengeOrdered By: Will Portillo on 02-28-2023 HCG ( test) Ql (U) Negative [facility] Comment on above: Very dilute urine sp ecimens, as indicated by a low specificgravity, may not contain resources representative levels of hCG. If is still suspected, a first morning urinespecimen should be collected 48 hours later and tested. Laboratory - Hematology and Cell countsOrdered By: Maria Antonia Miller on 02-28-2023 Erythrocyte distribution width (RBC) [Entitic vol] 51.7 fL 35.1-43.9 [facility] Erythrocyte distribution width (RBC) [Ratio] 16.5 % 11.6-14.6 [facility] Immature granulocytes/100 WBC (Bld) 0.500 % 0.0-0.9 [facility] Comment on above: IG% - Immature Granu locytes (promyelocytes, myelocytes and metamyelocytes) > 1% indicates that a LEFT SHIFT is Present. MCH (RBC) [Entitic mass] 26.5 pg 25.0-35.0 [facility] Nucleated RBC/100 WBC (Bld) [Ratio] 0 % 0-5 [facility] MCHC Auto (RBC) [Mass/Vol]Or dered By: Maria Antonia Miller on 02-28-2023 MCHC (RBC) [Mass/Vol] 31.1 g/dL 32-36 [facility] Mucus LM Ql (Urine sed)Order ed By: Will Portillo on 02-28-2023 Mucus Ql (Urine sed) 0 SEEN /hpf [facility] Nitrite Test strip Ql (U)Ord ered By: Will Portillo on 02-28-2023 Nitrite Ql (U) Negative Negative [facility] No Panel InformationOrdered By: Maria Antonia Miller on 02-28-2023 Estimated Creatinine Clearance Calc 155.29 ml/min [facility] Estimated GFR (MDRD) Amer 184 mL/min >60 [facility] Comment on above: GFR Calc Estimated GFR (MDRD) Non-Af Amer 152 mL/min >60 [facility] Comment on above: Non- GFR Calc Platelets bldOrdered By: Deny Miller on 02-28-2023 Platelets (Bld) [#/Vol] 258 10*3/uL 150-450 [facility] Protein Test strip Ql (U)Ord ered By: Will Portillo on 02-28-2023 Protein Ql (U) 15 mg/dl Negative [facility] Serum or plasma calcium nica urement (mass/volume)Ordered By: Maria Antonia Miller on 02-28-2023 Calcium [Mass/Vol] 8.7 mg/dL 8.5-10.1 [facility] Serum or plasma creatinine m easurement (mass/volume)Ordered By: Maria Antonia Miller on 02-28-2023 Creatinine [Mass/Vol] 0.55 mg/dL 0.55-1.02 [facility] Comment on above: The validity of the calculated GFR & GFRAA in patients over 70 years has not been determined. Clinical correlation is essential. Serum or plasma urea nitroge n measurement (mass/volume)Ordered By: Maria Antonia Miller on 02-28-2023 Urea nitrogen [Mass/Vol] 5 mg/dL 7-18 [facility] Squamous epithelial cells de tection in urine sediment by light microscopyOrdered By: Will Portillo on 02-28-2023 Epithelial cells.squamous LM Ql (Urine sed) 0-5 SEEN /hpf 5-10 [facility] Thin prep Papanicolaou smear with manual screeningOrdered By: Maria Antonia Miller on 02-28-2023 Thin prep Papanicolaou smear with manual screening 7 5-15 [facility] Urine blood detectionOrdered By: Will Portillo on 02-28-2023 RBC Ql (U) 250 /ul Negative [facility] RBC Ql (U) 50-100 SEEN /hpf 0-5 [facility] Urine clarityOrdered By: Riley Portillo on 02-28-2023 Clarity (U) Sl. Cloudy Clear [facility] Urine color determinationOrd ered By: Will Portillo on 02-28-2023 Color (U) Yellow Yellow [facility] Urine glucose detectionOrder ed By: Will Portillo on 02-28-2023 Glucose Ql (U) Normal mg/dl Normal [facility] Urine leukocyte esterase det ection by dipstickOrdered By: Will Portillo on 02-28-2023 Leukocyte esterase Test strip Ql (U) 25 /ul Negative [facility] Urine pHOrdered By: Will frausto on 02-28-2023 pH (U) 7.0 [pH] 5.0 - 8.0 [facility] Urine sediment bacteria coun t by microscopy (number/high power field)Ordered By: Will Portillo on 02-28-2023 Bacteria LM.HPF (Urine sed) [#/Area] RARE /hpf None Seen [facility] Urine specific gravity measu rementOrdered By: Will Portillo on 02-28-2023 Specific gravity (U) [Rel density] 1.010 1.002-1.030 [facility] Urobilinogen Auto test strip Ql (U)Ordered By: Will Portillo on 02-28-2023 Urobilinogen Ql (U) Normal mg/dl Normal [facility] Absolute lymphocyte countOrd ered By: Xavier Peck on 01-21-2023 Lymphocytes Auto (Unsp spec) [#/Vol] 1.83 10*3/uL 0.83-4.51 [facility] Basophil percentageOrdered B y: Xavier Peck on 01-21-2023 Basophils/100 WBC (Bld) 0.6 % 0-1 [facility] Chloride [Moles/Vol] 107 mmol/L 98-107 [facility] Eosinophils/100 WBC (Bld) 2.0 % 0-3 [facility] Glucose [Mass/Vol] 93 mg/dL 74-106 [facility] Neutrophils (Bld) [#/Vol] 4.2 10*3/uL 2.0-7.7 [facility] Neutrophils/100 WBC (Bld) 60.8 % 34-64 [facility] Potassium [Moles/Vol] 4.0 mmol/L 3.5-5.1 [facility] Sodium [Moles/Vol] 138 mmol/L 136-145 [facility] WBC (Bld) [#/Vol] 7.0 10*3/uL 4.5-13.0 [facility] Blood erythrocytes count (nu mber/volume)Ordered By: Xavier Peck on 01-21-2023 RBC (Bld) [#/Vol] 4.73 10*6/uL 4.1-4.8 [facility] Blood hemoglobin measurement (mass/volume)Ordered By: Xavier Peck on 01-21-2023 Hemoglobin (Bld) [Mass/Vol] 12.8 g/dL 12.0-15.0 [facility] Blood lymphocytes/100 leukoc ytesOrdered By: Xavier Peck on 01-21-2023 Lymphocytes/100 WBC (Bld) 26.2 % 25-45 [facility] Blood monocytes/100 leukocyt esOrdered By: Xavier Peck on 01-21-2023 Monocytes/100 WBC (Bld) 10.3 % 3-6 [facility] Blood platelet mean volumeOr dered By: Xavier Peck on 01-21-2023 Platelet mean volume (Bld) [Entitic vol] 12.1 fL 6.2-12.0 [facility] Determination of erythrocyte mean corpuscular volume (MCV)Ordered By: Xavier Peck on 01-21-2023 MCV (RBC) [Entitic vol] 84.4 fL 78-96 [facility] Hematocrit Auto (Bld) [Volum e fraction]Ordered By: Xavier Peck on 01-21-2023 Hematocrit (Bld) [Volume fraction] 39.9 % 37-46 [facility] Laboratory - Chemistry and C hemistry - challengeOrdered By: Xavier Peck on 01-21-2023 CO2 [Moles/Vol] 26.0 mmol/L 21.0-32.0 [facility] Urea nitrogen/Creatinine [Mass ratio] 12.9 mg/mg 10-20 [facility] Laboratory - Hematology and Cell countsOrdered By: Xavier Peck on 01-21-2023 Erythrocyte distribution width (RBC) [Entitic vol] 47.5 fL 35.1-43.9 [facility] Erythrocyte distribution width (RBC) [Ratio] 15.5 % 11.6-14.6 [facility] Immature granulocytes/100 WBC (Bld) 0.100 % 0.0-0.9 [facility] Comment on above: IG% - Immature Granu locytes (promyelocytes, myelocytes and metamyelocytes) > 1% indicates that a LEFT SHIFT is Present. MCH (RBC) [Entitic mass] 27.1 pg 25.0-35.0 [facility] Nucleated RBC/100 WBC (Bld) [Ratio] 0 % 0-5 [facility] MCHC Auto (RBC) [Mass/Vol]Or dered By: Xavier Peck on 01-21-2023 MCHC (RBC) [Mass/Vol] 32.1 g/dL 32-36 [facility] No Panel InformationOrdered By: Xavier Peck on 01-21-2023 D-Dimer Quantitative (PE/DVT) 0.34 FEU/ug/m 0.27-0.49 [facility] Comment on above: NORMAL D-Dimer level (<0.50) indicates no DVT or PE. Estimated Creatinine Clearance Calc 137.76 ml/min [facility] Estimated GFR (MDRD) Amer 161 mL/min >60 [facility] Comment on above: GFR Calc Estimated GFR (MDRD) Non-Af Amer 133 mL/min >60 [facility] Comment on above: Non- GFR Calc Troponin I High Sensitivity < 3 pg/mL 3.0-54.0 [facility] Comment on above: Please Note: [place] Units and Gender Specific Reference Ranges. For more information see Policy Stat Procedure [place] High Sensitivity Troponin (TNIH) and attachments. Platelets bldOrdered By: Josemanuel Peck on 01-21-2023 Platelets (Bld) [#/Vol] 222 10*3/uL 150-450 [facility] Serum or plasma calcium nica urement (mass/volume)Ordered By: Xavier Peck on 01-21-2023 Calcium [Mass/Vol] 9.5 mg/dL 8.5-10.1 [facility] Serum or plasma creatinine m easurement (mass/volume)Ordered By: Xavier Peck on 01-21-2023 Creatinine [Mass/Vol] 0.62 mg/dL 0.55-1.02 [facility] Comment on above: The validity of the calculated GFR & GFRAA in patients over 70 years has not been determined. Clinical correlation is essential. Serum or plasma urea nitroge n measurement (mass/volume)Ordered By: Xavier Peck on 01-21-2023 Urea nitrogen [Mass/Vol] 8 mg/dL 7-18 [facility] Thin prep Papanicolaou smear with manual screeningOrdered By: Xavier Peck on 01-21-2023 Thin prep Papanicolaou smear with manual screening 5 5-15 [facility] C. trachomatis+N. gonorrhoea e DNA FIORELLA+probe Ql (U)on 10-21-2022 C. trachomatis DNA FIORELLA+probe Ql (Unsp spec) Negative Negative [facility]lam[facility]is [facility] N. gonorrhoeae DNA FIORELLA+probe Ql (Unsp spec) Negative Negative for Neisseria gonorrhoeae by amplification [facility] HCG QUAL UR B/Oon 10-20-2022 status Negative neg - pos [facility] Quality Check Yes [facility] UA DIP, URINE (POC)on 2022 BILIRUBIN UA (POCT) Negative Negative [facility] CLARITY UA (POCT) Clear [facility] COLOR UA (POCT) Yellow [facility] GLUCOSE UA (POCT) Negative Negative mg/dL [facility] HEMOGLOBIN/BLOOD UA (POCT) Negative Negative [facility] KETONE UA (POCT) Negative Negative mg/dL [facility] LEUKOCYTES UA (POCT) Small Abnormal Negative [facility] NITRITE UA (POCT) Negative Negative [facility] PH UA (POCT) 7.0 4.5 - 8.0 [facility] Protein Ql (U) Negative Negative mg/dL [facility] SPECIFIC GRAVITY UA (POCT) 1.020 1.005 - 1.030 [facility] UROBILINOGEN UA (POCT) 0.2 E.U./dL Normal E.U./ dL [facility] UA DIP, URINE (POC)on 2022 BILIRUBIN UA (POCT) Negative Negative [facility] CLARITY UA (POCT) Clear [facility] COLOR UA (POCT) Yellow [facility] GLUCOSE UA (POCT) Negative Negative mg/dL [facility] HEMOGLOBIN/BLOOD UA (POCT) Large Abnormal Negative [facility] KETONE UA (POCT) Negative Negative mg/dL [facility] LEUKOCYTES UA (POCT) Small Abnormal Negative [facility] NITRITE UA (POCT) Negative Negative [facility] PH UA (POCT) 6.5 4.5 - 8.0 [facility] Protein Ql (U) 30 mg/dL Abnormal Negative mg/dL [facility] SPECIFIC GRAVITY UA (POCT) >=1.030 1.005 - 1.030 [facility] UROBILINOGEN UA (POCT) 0.2 E.U./dL Normal E.U./ dL [facility] Absolute lymphocyte countOrd ered By: Dr. Blackwell on 08-18-2022 Lymphocytes Auto (Unsp spec) [#/Vol] 1.64 10*3/uL 0.83-4.51 [facility] Amorphous sediment detection in urine sediment by light microscopyOrdered By: Dr. Blackwell on 08-18-2022 Amorphous sediment LM Ql (Urine sed) 3+ [facility] Basophil percentageOrdered B y: Dr. Blackwell on 08-18-2022 Basophil percentage 0-5 SEEN /hpf 0-5 [facility] Basophils/100 WBC (Bld) 0.5 % 0-1 [facility] Chloride [Moles/Vol] 104 mmol/L 98-107 [facility] Eosinophils/100 WBC (Bld) 1.0 % 0-3 [facility] Glucose [Mass/Vol] 112 mg/dL 74-106 [facility] Comment on above: Fasting Glucose resu lt from 100 to 125 mg/dL suggests IMPAIRED HOMEOSTASIS per A.D.A. criteria. Neutrophils (Bld) [#/Vol] 5.6 10*3/uL 2.0-7.7 [facility] Neutrophils/100 WBC (Bld) 69.3 % 34-64 [facility] Potassium [Moles/Vol] 3.3 mmol/L 3.5-5.1 [facility] Sodium [Moles/Vol] 140 mmol/L 136-145 [facility] WBC (Bld) [#/Vol] 8.0 10*3/uL 4.5-13.0 [facility] Beta hCG serum qualOrdered B y: Dr. lBackwell on 08-18-2022 Beta HCG ( test) Ql Negative [facility] Bilirubin Test strip Ql (U)O rdered By: Dr. Blackwell on 08-18-2022 Bilirubin Ql (U) Negative Negative [facility] Blood erythrocytes count (nu mber/volume)Ordered By: Dr. Blackwell on 08-18-2022 RBC (Bld) [#/Vol] 4.52 10*6/uL 4.1-4.8 [facility] Blood hemoglobin measurement (mass/volume)Ordered By: Dr. Blackwell on 08-18-2022 Hemoglobin (Bld) [Mass/Vol] 12.6 g/dL 12.0-15.0 [facility] Blood lymphocytes/100 leukoc ytesOrdered By: Dr. Blakcwell on 08-18-2022 Lymphocytes/100 WBC (Bld) 20.4 % 25-45 [facility] Blood monocytes/100 leukocyt esOrdered By: Dr. Blackwell on 08-18-2022 Monocytes/100 WBC (Bld) 8.4 % 3-6 [facility] Blood platelet mean volumeOr dered By: Dr. Blackwell on 08-18-2022 Platelet mean volume (Bld) [Entitic vol] 11.3 fL 6.2-12.0 [facility] Determination of erythrocyte mean corpuscular volume (MCV)Ordered By: Dr. Blackwell on 08-18-2022 MCV (RBC) [Entitic vol] 89.6 fL 78-96 [facility] Hematocrit Auto (Bld) [Volum e fraction]Ordered By: Dr. Blackwell on 08-18-2022 Hematocrit (Bld) [Volume fraction] 40.5 % 37-46 [facility] Ketones Test strip Ql (U)Ord ered By: Dr. Blackwell on 08-18-2022 Ketones Ql (U) 15 mg/dl Negative [facility] Laboratory - Chemistry and C hemistry - challengeOrdered By: Dr. Blackwell on 08-18-2022 CO2 [Moles/Vol] 28.0 mmol/L 21.0-32.0 [facility] Urea nitrogen/Creatinine [Mass ratio] 12.1 mg/mg 10-20 [facility] Laboratory - Hematology and Cell countsOrdered By: Dr. Blackwell on 08-18-2022 Erythrocyte distribution width (RBC) [Entitic vol] 44.5 fL 35.1-43.9 [facility] Erythrocyte distribution width (RBC) [Ratio] 13.5 % 11.6-14.6 [facility] Immature granulocytes/100 WBC (Bld) 0.400 % 0.0-0.9 [facility] Comment on above: IG% - Immature Granu locytes (promyelocytes, myelocytes and metamyelocytes) > 1% indicates that a LEFT SHIFT is Present. MCH (RBC) [Entitic mass] 27.9 pg 25.0-35.0 [facility] Nucleated RBC/100 WBC (Bld) [Ratio] 0 % 0-5 [facility] MCHC Auto (RBC) [Mass/Vol]Or dered By: Dr. Blackwell on 08-18-2022 MCHC (RBC) [Mass/Vol] 31.1 g/dL 32-36 [facility] Mucus LM Ql (Urine sed)Order ed By: Dr. Blackwell on 08-18-2022 Mucus Ql (Urine sed) 0 SEEN /hpf [facility] Nitrite Test strip Ql (U)Ord ered By: Dr. Blackwell on 08-18-2022 Nitrite Ql (U) Negative Negative [facility] No Panel InformationOrdered By: Dr. Blackwell on 08-18-2022 Estimated Creatinine Clearance Calc 125.41 ml/min [facility] Estimated GFR (MDRD) [facility] Comment on above: Test not performedAf rican Nigerian GFR Calc Estimated GFR (MDRD) Non-Af [facility] Comment on above: Test not performedNo n- GFR Calc Platelets bldOrdered By: Dr. Blackwell on 08-18-2022 Platelets (Bld) [#/Vol] 292 10*3/uL 150-450 [facility] Protein Test strip Ql (U)Ord ered By: Dr. Blackwell on 08-18-2022 Protein Ql (U) 30 mg/dl Negative [facility] Serum or plasma calcium nica urement (mass/volume)Ordered By: Dr. Blackwell on 08-18-2022 Calcium [Mass/Vol] 9.7 mg/dL 8.5-10.1 [facility] Serum or plasma creatinine m easurement (mass/volume)Ordered By: Dr. Blackwell on 08-18-2022 Creatinine [Mass/Vol] 0.66 mg/dL 0.55-1.02 [facility] Comment on above: The validity of the calculated GFR & GFRAA in patients over 70 years has not been determined. Clinical correlation is essential. Serum or plasma urea nitroge n measurement (mass/volume)Ordered By: Dr. Blackwell on 08-18-2022 Urea nitrogen [Mass/Vol] 8 mg/dL 7-18 [facility] Squamous epithelial cells de tection in urine sediment by light microscopyOrdered By: Dr. Blackwell on 08-18-2022 Epithelial cells.squamous LM Ql (Urine sed) 0-5 SEEN /hpf 5-10 [facility] Thin prep Papanicolaou smear with manual screeningOrdered By: Dr. Blackwell on 08-18-2022 Thin prep Papanicolaou smear with manual screening 8 5-15 [facility] Urine blood detectionOrdered By: Dr. Blackwell on 08-18-2022 RBC Ql (U) 250 /ul Negative [facility] RBC Ql (U) 25-50 SEEN /hpf 0-5 [facility] Urine clarityOrdered By: Dr. Blackwell on 08-18-2022 Clarity (U) Turbid Clear [facility] Urine color determinationOrd ered By: Dr. Blackwell on 08-18-2022 Color (U) Yellow Yellow [facility] Urine glucose detectionOrder ed By: Dr. Blackwell on 08-18-2022 Glucose Ql (U) Normal mg/dl Normal [facility] Urine leukocyte esterase det ection by dipstickOrdered By: Dr. Blackwell on 08-18-2022 Leukocyte esterase Test strip Ql (U) 100 /ul Negative [facility] Urine pHOrdered By: Dr. Bailey spring on 08-18-2022 pH (U) 7.0 [pH] 5.0 - 8.0 [facility] Urine sediment bacteria coun t by microscopy (number/high power field)Ordered By: Dr. Blackwell on 08-18-2022 Bacteria LM.HPF (Urine sed) [#/Area] 0 /[HPF] None Seen [facility] Urine specific gravity measu rementOrdered By: Dr. Blackwell on 08-18-2022 Specific gravity (U) [Rel density] 1.015 1.002-1.030 [facility] Urobilinogen Auto test strip Ql (U)Ordered By: Dr. Blackwell on 08-18-2022 Urobilinogen Ql (U) 1 mg/dl Normal [facility] STREP A MOLECULAR (POC)on Procedural Control Valid [facility] Strep A (POCT) Negative Negative [facility] UA DIP, URINE (POC)on 2022 BILIRUBIN UA (POCT) Negative Negative [facility] CLARITY UA (POCT) Cloudy [facility] COLOR UA (POCT) Dark yellow [facility] GLUCOSE UA (POCT) Negative Negative mg/dL [facility] HEMOGLOBIN/BLOOD UA (POCT) Large Abnormal Negative [facility] KETONE UA (POCT) Negative Negative mg/dL [facility] LEUKOCYTES UA (POCT) Small Abnormal Negative [facility] NITRITE UA (POCT) Negative Negative [facility] PH UA (POCT) 7.0 4.5 - 8.0 [facility] Protein Ql (U) 30 mg/dL Abnormal Negative mg/dL [facility] SPECIFIC GRAVITY UA (POCT) 1.020 1.005 - 1.030 [facility] UROBILINOGEN UA (POCT) 1.0 E.U./dL Normal E.U./ dL [facility] UA DIP, URINE (POC)on 2022 BILIRUBIN UA (POCT) Negative Negative [facility] CLARITY UA (POCT) Slightly Cloudy Cl [facility] COLOR UA (POCT) Yellow [facility] GLUCOSE UA (POCT) 100 mg/dL Abnormal Negative mg/dL [facility] HEMOGLOBIN/BLOOD UA (POCT) Small Abnormal Negative [facility] KETONE UA (POCT) Negative Negative mg/dL [facility] LEUKOCYTES UA (POCT) Negative Negative [facility] NITRITE UA (POCT) Negative [facility]A (POCT) 7.0 4.5 - 8.0 [facility] Protein Ql (U) Negative Negative mg/dL [facility] SPECIFIC GRAVITY UA (POCT) 1.025 1.005 - 1.030 [facility] UROBILINOGEN UA (POCT) 0.2 E.U./dL Normal E.U./ dL [facility] Comp Metabolic Panelon 06-09 ALT [Catalytic activity/Vol] U/L Normal 0-34 [facility] Comment on above: Order Comment: Relea se to patient->Automatic [id number]&Blood Performed By: #### C MP #### [place] [address] CO2 [Moles/Vol] 19.2 mmol/L Low 22.0-29.0 [facility] Comment on above: Order Comment: Relea se to patient->Automatic [id number]&Blood Performed By: #### C MP #### [address] [id number] Creatinine [Mass/Vol] 0.70 mg/dL Normal 0.50-1.00 [facility] Comment on above: Order Comment: Relea se to patient->Automatic [id number]&Blood Performed By: #### C MP #### [address] [id number] Glucose [Mass/Vol] 109 mg/dL High 70-99 [facility] Comment on above: Order Comment: Relea se to patient->Automatic [id number]&Blood Result Comment: Crit eria for Diagnosis of Diabetes: Fasting Specimen (no caloric intake for at least 8 hours): <100 mg/dL Normal 100-125 mg/dL Increased risk for Diabetes >125 mg/dL Diagnostic for Diabetes Random Glucose (any time of day without regard to last meal): > or = 200 mg/dL plus Classic Symptoms of Diabetes Performed By: #### C MP #### [address] [address] Protein [Mass/Vol] 8.2 g/dL High 6.0-8.0 [facility] Comment on above: Order Comment: Relea se to patient->Automatic 57327&Blood Performed By: #### C MP #### [address] [address] Urea nitrogen [Mass/Vol] 10 mg/dL Normal 4-19 [facility] Comment on above: Order Comment: Relea se to patient->Automatic 76895&Blood Performed By: #### C MP #### [address] [address] Albumin [Mass/Vol] 4.3 g/dL Normal 3.2-4.5 [facility] Comment on above: Order Comment: Relea se to patient->Automatic 41203&Blood Performed By: #### C MP #### [address] [address] ALP [Catalytic activity/Vol] 55 U/L Normal 43-83 [facility] Comment on above: Order Comment: Relea se to patient->Automatic 77411&Blood Performed By: #### C MP #### [address] [address] [place] [address] AST [Catalytic activity/Vol] 18 U/L Normal 0-31 [facility] Comment on above: Order Comment: Relea se to patient->Automatic 75070&Blood Performed By: #### C MP #### [address] [address] [place] [address] Bili,Total 1.3 mg/dL High 0.0-1.0 [facility] Comment on above: Order Comment: Relea se to patient->Automatic 28965&Blood Performed By: #### C MP #### [address] [address] Calcium [Mass/Vol] 10.0 mg/dL Normal 7.6-11.0 [facility] Comment on above: Order Comment: Relea se to patient->Automatic 46022&Blood Performed By: #### C MP #### [address] [address] Chloride [Moles/Vol] 97 mmol/L Normal 96-108 [facility] Comment on above: Order Comment: Relea se to patient->Automatic 12081&Blood Performed By: #### C MP #### [address] [address] Potassium [Moles/Vol] 3.4 mmol/L Normal 3.3-5.1 [facility] Comment on above: Order Comment: Relea se to patient->Automatic 53067&Blood Performed By: #### C MP #### [address] [address] Sodium [Moles/Vol] 135 mmol/L Normal 133-145 [facility] Comment on above: Order Comment: Relea se to patient->Automatic 07745&Blood Performed By: #### C MP #### [place] [address] Complete Blood Counton 06-09 Differential Complete Manual Normal [facility] Comment on above: Order Comment: Relea se to patient->Automatic 39550&Blood Performed By: #### C BC #### [place] [address] Erythrocyte distribution width (RBC) [Ratio] 13.5 % Normal 0.0-14.4 [facility] Comment on above: Order Comment: Relea se to patient->Automatic 86005&Blood Performed By: #### C BC #### [place] [address] Hematocrit (Bld) [Volume fraction] 40.2 % Normal 37.0-46.0 [facility] Comment on above: Order Comment: Relea se to patient->Automatic 06727&Blood Performed By: #### C BC #### [place] [address] Hemoglobin (Bld) [Mass/Vol] 13.8 g/dL Normal 12.0-15.0 [facility] Comment on above: Order Comment: Relea se to patient->Automatic 98825&Blood Performed By: #### C BC #### [place] [address] Immature granulocytes/100 WBC (Bld) 0.30 % Normal [facility] Comment on above: Order Comment: Relea se to patient->Automatic 03228&Blood Result Comment: Jeannine ture Granulocyte Percent includes promyelocytes, myelocytes, and metamyelocytes. IG% > 1.0 indicates a left shift is present. With automated differentials, bands are included in the neutrophil count and not in the Immature Granulocyte Percent. Performed By: #### C BC #### [address] [id number] MCH (RBC) [Entitic mass] 28.9 pg Normal 25.0-35.0 [facility] Comment on above: Order Comment: Relea se to patient->Automatic 39809&Blood Performed By: #### C BC #### [address] [address] MCHC 34.3 % Normal 31.0-37.0 [facility] Comment on above: Order Comment: Relea se to patient->Automatic 94606&Blood Performed By: #### C BC #### [address] [address] MCV (RBC) [Entitic vol] 84.1 fL Normal 78.0-96.0 [facility] Comment on above: Order Comment: Relea se to patient->Automatic 29991&Blood Performed By: #### C BC #### [address] [address] Nucleated RBC/100 WBC (Bld) [Ratio] 0.0 % Normal -1.0-0.0 [facility] Comment on above: Order Comment: Relea se to patient->Automatic 42867&Blood Performed By: #### C BC #### [address] [address] Platelet mean volume (Bld) [Entitic vol] 11.4 fL Normal [facility] Comment on above: Order Comment: Relea se to patient->Automatic 59520&Blood Result Comment: MPV is platelet range and age dependent Performed By: #### C BC #### [address] [address] Platelets (Bld) [#/Vol] 275 10*3/uL Normal 150-450 [facility] Comment on above: Order Comment: Relea se to patient->Automatic 01515&Blood Performed By: #### C BC #### [address] [id number] RBC 4.78 10E12/L Normal 4.10-4.80 [facility] Comment on above: Order Comment: Relea se to patient->Automatic 91564&Blood Performed By: #### C BC #### [address] [id number] WBC (Bld) [#/Vol] 11.5 10*3/uL Normal 4.5-13.0 [facility] Comment on above: Order Comment: Relea se to patient->Automatic 78450&Blood Performed By: #### C BC #### [address] [address] Complete Blood Count with Di fferentialon 06-09-2022 Differential Complete Manual [facility] Erythrocyte distribution width (RBC) [Ratio] 13.5 % 0.0 - 14.4 % [facility] Hematocrit (Bld) [Volume fraction] 40.2 % 37.0 - 46.0 % [facility] Hemoglobin (Bld) [Mass/Vol] 13.8 g/dL 12.0 - 15.0 g/dl [facility] Immature granulocytes/100 WBC (Bld) 0.3 % [facility] Comment on above: Immature Granulocyte Percent includes promyelocytes, myelocytes, and metamyelocytes. IG% > 1.0 indicates a left shift is present. With automated differentials, bands are included in the neutrophil count and not in the Immature Granulocyte Percent. MCH (RBC) [Entitic mass] 28.9 pg 25.0 - 35.0 pg [facility] MCHC 34.3 % 31.0 - 37.0 % [facility] MCV (RBC) [Entitic vol] 84.1 fL 78.0 - 96.0 fl [facility] Nucleated RBC/100 WBC (Bld) [Ratio] 0 % -1.0 - 0.0 % [facility] Platelet mean volume (Bld) [Entitic vol] 11.4 fL [facility] Comment on above: MPV is platelet range and age dependent Platelets (Bld) [#/Vol] 275 10*3/uL [facility] RBC (Bld) [#/Vol] 4.78 10*6/uL [facility] WBC (Bld) [#/Vol] 11.5 10*3/uL [facility] Comprehensive metabolic pane eric 06-09-2022 Albumin [Mass/Vol] 4.3 g/dL 3.2 - 4.5 g/dL [facility] ALP [Catalytic activity/Vol] 55 U/L 43 - 83 U/L [facility] ALT [Catalytic activity/Vol] U/L 0 - 34 U/L [facility] AST [Catalytic activity/Vol] 18 U/L 0 - 31 U/L [facility] Bilirubin [Mass/Vol] 1.3 mg/dL High 0.0 - 1 .0 mg/dL [facility] Calcium [Mass/Vol] 10.0 mg/dL 7.6 - 11. 0 mg/dL [facility] Chloride [Moles/Vol] 97 mmol/L 96 - 10 8 mmol/L [facility] CO2 [Moles/Vol] 19.2 mmol/L Low 22.0 - 29.0 mmol/L [facility] Creatinine [Mass/Vol] 0.70 mg/dL 0.50 - 1.00 mg/dL [facility] Glucose [Mass/Vol] 109 mg/dL High 70 - 99 mg/dL [facility] Comment on above: Criteria for Diagnos is of Diabetes: Fasting Specimen (no caloric intake for at least 8 hours): <100 mg/dL Normal 100-125 mg/dL Increased risk for Diabetes >125 mg/dL Diagnostic for Diabetes Random Glucose (any time of day without regard to last meal): > or = 200 mg/dL plus Classic Symptoms of Diabetes Interpretation and review of laboratory results Abnormal [facility] Potassium [Moles/Vol] 3.4 mmol/L 3.3 - 5.1 mmol/L [facility] Protein [Mass/Vol] 8.2 g/dL High 6.0 - 8.0 g/dL [facility] Sodium [Moles/Vol] 135 mmol/L 133 - 145 mmol/L [facility] Urea nitrogen [Mass/Vol] 10 mg/dL 4 - 19 mg/dL [facility] Drugs of Abuse with THC, Uri neon 06-09-2022 Amphetamines Negative Normal Negative [facility] Comment on above: Order Comment: Reaso n for preventing automatic release->Other Release to patient->Manual release only 25680&Urine Result Comment: Thre shold = 1000 ng/mL Performed By: #### D RGT #### [place] [address] Barbiturates Negative Normal Negative [facility] Comment on above: Order Comment: Reaso n for preventing automatic release->Other Release to patient->Manual release only 28941&Urine Result Comment: Thre shold = 200 ng/mL Performed By: #### D RGT #### [place] [address] Benzodiazepines Negative Normal Negative [facility] Comment on above: Order Comment: Reaso n for preventing automatic release->Other Release to patient->Manual release only 76739&Urine Result Comment: Thre shold = 200 ng/mL Performed By: #### D RGT #### [place] [address] Cocaine Negative Normal Negative [facility] Comment on above: Order Comment: Reaso n for preventing automatic release->Other Release to patient->Manual release only 52464&Urine Result Comment: Thre shold = 300 ng/mL Performed By: #### D RGT #### [address] [address] Methadone Negative Normal Negative [facility] Comment on above: Order Comment: Reaso n for preventing automatic release->Other Release to patient->Manual release only 08774&Urine Result Comment: Thre shold = 300 ng/mL Performed By: #### D RGT #### [address] [address] Opiates Negative Normal Negative [facility] Comment on above: Order Comment: Reaso n for preventing automatic release->Other Release to patient->Manual release only 25884&Urine Result Comment: Thre shold = 300 ng/mL Performed By: #### D RGT #### [address] [id number] PCP-Phencyclidine Negative Normal Negative [facility] Comment on above: Order Comment: Reaso n for preventing automatic release->Other Release to patient->Manual release only 06597&Urine Result Comment: Thre shold = 25 ng/mL Performed By: #### D RGT #### [place] [address] THC50, Urine Negative Normal Negative [facility] Comment on above: Order Comment: Reaso n for preventing automatic release->Other Release to patient->Manual release only 24236&Urine Result Comment: Thre shold = 50 ng/mL Note: This testing is intended for medical management and treatment only. Analysis performed using non-forensic (screening/non-confirmatory) procedures. Performed By: #### D RGT #### [place] [address] Drugs of Abuse with THC, [place] 06-09-2022 Amphetamines, Ur Negative Negative [facility] Comment on above: Threshold = 1000 ng/ mL Barbiturates, Ur Negative Negative [facility] Comment on above: Threshold = 200 ng/m L Benzodiazepines, Ur Negative Negative [facility] Comment on above: Threshold = 200 ng/m L Cocaine Negative Negative [facility] Comment on above: Threshold = 300 ng/m L Methadone, Ur Negative Negative [facility] Comment on above: Threshold = 300 ng/m L Opiates Negative Negative [facility] Comment on above: Threshold = 300 ng/m L PCP-Phencyclidine Negative Negative [facility] Comment on above: Threshold = 25 ng/mL THC,50,Urine Negative Negative [facility] Comment on above: Threshold = 50 ng/mL Note: This testing is intended for medical management and treatment only. Analysis performed using non-forensic (screening/non-confirmatory) procedures. Reason for preventin g automatic release->Other Release to patient->Manual release only [facility] Influenza A/B, Qualitative N AATon 06-09-2022 Influenza A/B, Qualitative NAAT Release to patient->Automatic 06702&Nasopharyngeal swab Influenza A/B, Qualitative NAAT: NEGATIVE: No Influenza Viral RNA Detected Source: [facility] Collected: 06/09/22 12:08 Site: Received : 06/09/22 12:30 Influenza A/B, Qualitative NAAT FINAL 06/09/22 12:52 NEGATIVE: No Influenza Viral RNA Detected - Comment: Negative results do not preclude influenza virus infection and should not be used as the sole basis for diagnosis, treatment or other patient management decisions. - Method: Rapid molecular in vitro diagnostic test utilizing isothermal nucleic acid amplification technology for the differential and qualitative detection of influenza A and influenza B viral nucleic acids using the ID NOW Influenza A & B 2 assay from [employer]. - This test is approved for use by the FDA as waived under CLIA. - Reference Value: Negative Normal [facility] Comment on above: Performed By: #### I [facility] #### [place] [address] FLUAV and FLUBV RNA FIORELLA+probe Nom (Unsp spec) See Below [facility] Comment on above: Source: [facility] sarbjit: 06/09/22 12:08 Site: Received : 06/09/22 12:30 Influenza A/B, Qualitative NAAT FINAL 06/09/22 12:52 NEGATIVE: No Influenza Viral RNA Detected - Comment: Negative results do not preclude influenza virus infection and should not be used as the sole basis for diagnosis, treatment or other patient management decisions. - Method: Rapid molecular in vitro diagnostic test utilizing isothermal nucleic acid amplification technology for the differential and qualitative detection of influenza A and influenza B viral nucleic acids using the ID NOW Influenza A & B 2 assay from [employer]. - This test is approved for use by the FDA as waived under CLIA. - Reference Value: Negative Release to patient->Automatic [facility] Manual Differentialon 2021 Absolute Neutrophil No. 8.7 10E3/uL High 1.8-7.5 [facility] Comment on above: Order Comment: Relea se to patient->Automatic 30933&Blood Performed By: #### M DIFF #### [address] [address] Anisocytosis Slight Normal [facility] Comment on above: Order Comment: Relea se to patient->Automatic 84833&Blood Performed By: #### M DIFF #### [address] [address] Band Neutrophils 1 % Low 5-11 [facility] Comment on above: Order Comment: Relea se to patient->Automatic 34205&Blood Performed By: #### M DIFF #### [address] [address] Hypochromia Occasional Normal [facility] Comment on above: Order Comment: Relea se to patient->Automatic 75289&Blood Performed By: #### M DIFF #### [address] [address] Lymphocytes 17 % Low 25-45 [facility] Comment on above: Order Comment: Relea se to patient->Automatic 26294&Blood Performed By: #### M DIFF #### [address] [address] Metamyelocytes 0 % Normal 0-0 [facility] Comment on above: Order Comment: Relea se to patient->Automatic 38682&Blood Performed By: #### M DIFF #### [address] [address] Monocytes 7 % High 3-6 [facility] Comment on above: Order Comment: Relea se to patient->Automatic 91638&Blood Performed By: #### M DIFF #### [address] [address] Myelocytes 0 % Normal 0-0 [facility] Comment on above: Order Comment: Relea se to patient->Automatic 80124&Blood Performed By: #### M DIFF #### [address] [address] Poikilocytosis Slight Normal [facility] Comment on above: Order Comment: Relea se to patient->Automatic 79762&Blood Performed By: #### M DIFF #### [address] [address] Promyelocytes 0 % Normal 0-0 [facility] Comment on above: Order Comment: Relea se to patient->Automatic 00627&Blood Performed By: #### M DIFF #### [address] [address] Segmented Neutrophils 75 % High 34-64 [facility] Comment on above: Order Comment: Relea se to patient->Automatic 31601&Blood Performed By: #### M DIFF #### [address] [address] % Metamyelocytes 0 % 0 - 0 % [facility] % Monocytes 7 % High 3 - 6 % [facility] % Myelocytes 0 % 0 - 0 % [facility] % Promyelocytes 0 % 0 - 0 % [facility] Absolute Neutrophil No. 8.7 High [facility] Anisocytosis Slight [facility] Band Neutrophil 1 % Low 5 - 11 % [facility] Hypochromia Occasional [facility] Interpretation and review of laboratory results Abnormal [facility] Lymphocytes 17 % Low 25 - 45 % [facility] Poikilocytosis Slight [facility] Segmented Neutrophils 75 % High 34 - 64 % [facility] [place]-Screenon 06-09-2022 [place]-Screen Negative Normal Negative [facility] Comment on above: Order Comment: Relea se to patient->Automatic 26510&Blood Result Comment: If i ndicated,an EBV IgM may be of diagnostic value. Performed By: #### M SPOT #### [address] [address] Mononucleosis screenon 06-09 Monospot (Heterophile Antobodies) Negative Negative NA [facility] Comment on above: If indicated,an EBV IgM may be of diagnostic value. Release to patient->Automatic [facility] No Panel Informationon 06-09 Interpretation and review of laboratory results Abnormal [facility] Release to patient->Automatic [facility] Release to patient->Automatic [facility] Release to patient->Automatic [facility] RFILM Respiratory Panel Film Arrayon 06-09-2022 Respiratory Panel Film Array SNOMED code Not detected Normal [facility] Comment on above: Performed By: #### I DFLU #### [address] [address] Respiratory Panel Film Array on 06-09-2022 Respiratory pathogens DNA and RNA panel FIORELLA+non-probe (Nph) See Below [facility] Comment on above: Source: [facility] Collecte d: 06/09/22 12:08 Site: Received : 06/09/22 13:58 Respiratory Panel Film Array FINAL 06/09/22 14:49 - NEGATIVE: No SARS-CoV-2 detected. NEGATIVE: No respiratory pathogens were detected. - The Film Array Respiratory Panel detects DNA or RNA for the following organisms: Adenovirus RPGT-[id number]-2 Coronavirus 229E Coronavirus HKU1 Coronavirus NL63 Coronavirus OC43 Human metapneumovirus Rhinovirus/Enterovirus Influenza A virus(targets H1, H3, and H1-2009) Influenza B virus Parainfluenza Virus 1 Parainfluenza Virus 2 Parainfluenza Virus 3 Parainfluenza Virus 4 Respiratory Syncytial virus (RSV) Bordetella parapertussis Bordetella pertussis Chlamydia pneumoniae Mycoplasma pneumoniae - Comment: Negative results do not preclude SARS-CoV-2 infection and should not be used as the sole basis for treatment or other patient management decisions. Negative results must be combined with clinical observations, patient history, and epidemiological information. - Method: The ID Watchdoge Respiratory Panel 2.1 (RP2.1) is a multiplexed nucleic acid test intended for the simultaneous qualitative detection and differentiation of nucleic acids from multiple viral and bacterial respiratory organisms, including nucleic acid from Severe Acute Respiratory Syndrome Coronavirus 2 (SARS-CoV-2). This test is FDA [place] authorized. [facility] TSH with Reflex to T4, Freeo n 06-09-2022 TSH with reflex to T4, Free 3.29 [facility] Release to patient->Automatic [facility] TSH with reflex T4FRon 06-09 TSH with reflex T4FR 3.290 uIU/mL Normal 0.500-4.300 [facility] Comment on above: Order Comment: Relea se to patient->Automatic 81231&Blood Performed By: #### T [facility] #### [place] [address] Urinalysis with microscopico n 06-09-2022 Bilirubin Ur Negative Negative mg/dL [facility] Character Hazy [facility] Color Ur Yellow [facility] Glucose Ur Negative Negative mg/dL [facility] Hemoglobin Ur 3+ Abnormal Negative RBC's/uL [facility] Ketones Ur 2+ Abnormal Negative mg/dL [facility] Leukocyte Esterase Ur 1+ Abnormal Negati ve leuk/ul [facility] Nitrite Ql (U) Negative Negative mg/dl [facility] pH Ur 7.0 [facility] Protein Ur 1+ Abnormal Neg.-Trace mg/dL [facility] Specific gravity (U) [Rel density] 1.015 [facility] Urobilinogen (U) [Mass/Vol] Negative Negative mg/dl [facility] Volume Ur 12 ml 12 [facility] Urinalysis, Automated-[place] 06-09-2022 Bacteria Ur Rare /uL [facility] Mucous Ur Small [facility] RBC, Urine 2622.0 /uL High 0.0 - 20.0 /uL [facility] Squamous Epithelial Cells Ur 39 /uL High 0 - 20 /uL [facility] WBC UR 100.0 /uL High 0.0 - 20.0 /uL [facility] Urinalysis,Automatedon 06-09 Bacteria Rare Normal [facility] Comment on above: Order Comment: Relea se to patient->Automatic 68764&Urine Performed By: #### U FMIC #### [place] [address] Mucous Small Normal [facility] Comment on above: Order Comment: Relea se to patient->Automatic [id number]&Urine Performed By: #### U FMIC #### [place] [address] RBC (U) [#/Vol] 2622.0 /uL High 0.0-20.0 [facility] Comment on above: Order Comment: Relea se to patient->Automatic [id number]&Urine Performed By: #### U FMIC #### [address] [address] Squamous Epithelial Cells 39 /uL High 0-20 [facility] Comment on above: Order Comment: Relea se to patient->Automatic [id number]&Urine Performed By: #### U FMIC #### [address] [address] WBC (U) [#/Vol] 100.0 /uL High 0.0-20.0 [facility] Comment on above: Order Comment: Relea se to patient->Automatic [id number]&Urine Performed By: #### U FMIC #### [address] [address] Urinalysis,Completeon 2021 Bilirubin,urine Negative Normal Negative [facility] Comment on above: Order Comment: Relea se to patient->[id number]&Urine Performed By: #### I DFLU #### [address] [address] Character Hazy Normal [facility] Comment on above: Order Comment: Relea se to patient->[id number]&Urine Performed By: #### I DFLU #### [address] [address] Color (U) Yellow Normal [facility] Comment on above: Order Comment: Relea se to patient->[id number]&Urine Performed By: #### I DFLU #### [address] [address] Glucose Ql (U) Negative Normal Negative [facility] Comment on above: Order Comment: Relea se to patient->[id number]&Urine Performed By: #### I DFLU #### [address] [address] Ketones Ql (U) 2+ mg/dL Abnormal Negative [facility] Comment on above: Order Comment: Relea se to patient->[id number]&Urine Performed By: #### I DFLU #### [address] [address] Leukocyte esterase Test strip Ql (U) 1+ leuk/ul Abnormal Negative [facility] Comment on above: Order Comment: Relea se to patient->[id number]&Urine Performed By: #### I DFLU #### [address] [address] Nitrite Ql (U) Negative Normal Negative [facility] Comment on above: Order Comment: Relea se to patient->[id number]&Urine Performed By: #### I DFLU #### [address] [address] pH, Urine 7.0 Normal 5.0-8.0 [facility] Comment on above: Order Comment: Relea se to patient->[id number]&Urine Performed By: #### I DFLU #### [address] [address] Protein,Ur 1+ mg/dL Abnormal Neg.-Trace [facility] Comment on above: Order Comment: Relea se to patient->[id number]&Urine Performed By: #### I DFLU #### [facility] [address] [place] [address] Specific gravity (U) [Rel density] 1.015 Normal 1.005-1.030 [facility] Comment on above: Order Comment: Relea se to patient->[id number]&Urine Performed By: #### I DFLU #### [facility] [address] [place] [address] Urobilinogen (U) [Mass/Vol] Negative Normal Negative [facility] Comment on above: Order Comment: Relea se to patient->[id number]&Urine Performed By: #### I DFLU #### [facility] [address] [place] [address] Volume 12 ml Normal 12 [facility] Comment on above: Order Comment: Relea se to patient->[id number]&Urine Performed By: #### I DFLU #### [facility] [address] [place] [address] XR Chest Single viewon 06-09 IMPRESSION: The hear t size and pulmonary vasculature are unremarkable. No focal consolidations are seen. No pneumothorax or pleural effusion is noted. The bones are within normal limits. The bowel gas pattern is nonspecific. This report has been created using voice recognition software [facility] RADIOLOGY Alverto Henry MD - 06/09/2022 CLINICAL HISTORY: evaluation for pna/pleural effusion, tachycardia with tachpnea COMPARISON: None TECHNIQUE: CHEST AP ONLY IMPRESSION: The heart size and pulmonary vasculature are unremarkable. No focal consolidations are seen. No pneumothorax or pleural effusion is noted. The bones are within normal limits. The bowel gas pattern is nonspecific. This report has been created using voice recognition software [facility] Radiology Study observation (narrative) [facility] XR Chest Single viewOrdered By: Alverto Henry on 06-09-2022 [facility] Work Phone: eGFRon 06-09-2022 eGFR see below Normal [facility] Comment on above: Order Comment: Relea se to patient->Automatic [id number]&Blood Result Comment: Refe rence range: > 3 months: >90 ml/min/1.73m^2 Ref. Range change effective 09/21/2017 Unable to calculate EGFR; height not available. - To manually calculate eGFR use Bedside Crowell equation. - (0.41 X height in centimeters)/serum creatinine mg/dL Performed By: #### E GFR #### [place] [address] eGFR see below [facility] Comment on above: Reference range: > 3 months: >90 ml/min/1.73m^2 Ref. Range change effective 09/21/2017 Unable to calculate EGFR; height not available. - To manually calculate eGFR use Bedside Crowell equation. - (0.41 X height in centimeters)/serum creatinine mg/dL Laboratory - Microbiology an d Antimicrobial susceptibilityOrdered By: Dr. Vasquez on 06-08-2022 Bacteria identified Cx Nom (Bld) No growth in 5 days. [facility] Absolute lymphocyte countOrd ered By: Dr. Vasquez on 06-02-2022 Lymphocytes Auto (Unsp spec) [#/Vol] 2.90 10*3/uL 0.83-4.51 [facility] Basophil percentageOrdered B y: Dr. Vasquez on 06-02-2022 Basophil percentage 0-5 SEEN /hpf 0-5 [facility] Basophils/100 WBC (Bld) 0.3 % 0-1 [facility] Bilirubin [Mass/Vol] 0.20 mg/dL 0.20-1.00 [facility] Comment on above: For patients on eltr ombopag therapy, use of Dimension Fenton TBIL is not recommended. Chloride [Moles/Vol] 105 mmol/L 98-107 [facility] Eosinophils/100 WBC (Bld) 0.5 % 0-3 [facility] Glucose [Mass/Vol] 213 mg/dL 74-106 [facility] Comment on above: Glucose result great er than or equal to 200 mg/dLsuggests DIABETES MELLITUS per A.D.A. criteria. Lactate [Moles/Vol] 2.7 mmol/L 0.4-2.0 [facility] Comment on above: Critical Result(s) C alled at: 18:00:46 06/02/2022 by: Cherelle villareal TO NOEMY. Results read back by same. Neutrophils (Bld) [#/Vol] 7.3 10*3/uL 2.0-7.7 [facility] Neutrophils/100 WBC (Bld) 63.7 % 34-64 [facility] Potassium [Moles/Vol] 3.4 mmol/L 3.5-5.1 [facility] Protein [Mass/Vol] 7.4 g/dL 6.4-8.2 [facility] Sodium [Moles/Vol] 138 mmol/L 136-145 [facility] WBC (Bld) [#/Vol] 11.5 10*3/uL 4.5-13.0 [facility] Bilirubin Test strip Ql (U)O rdered By: Dr. Vasquez on 06-02-2022 Bilirubin Ql (U) Negative Negative [facility] Blood erythrocytes count (nu mber/volume)Ordered By: Dr. Vasquez on 06-02-2022 RBC (Bld) [#/Vol] 4.28 10*6/uL 4.1-4.8 [facility] Blood hemoglobin measurement (mass/volume)Ordered By: Dr. Vasquez on 06-02-2022 Hemoglobin (Bld) [Mass/Vol] 12.1 g/dL 12.0-15.0 [facility] Blood lymphocytes/100 leukoc ytesOrdered By: Dr. Vasquez on 06-02-2022 Lymphocytes/100 WBC (Bld) 25.3 % 25-45 [facility] Blood monocytes/100 leukocyt esOrdered By: Dr. Vasquez on 06-02-2022 Monocytes/100 WBC (Bld) 9.8 % 3-6 [facility] Blood platelet mean volumeOr dered By: Dr. Vasquez on 06-02-2022 Platelet mean volume (Bld) [Entitic vol] 12.1 fL 6.2-12.0 [facility] Determination of erythrocyte mean corpuscular volume (MCV)Ordered By: Dr. Vasquez on 06-02-2022 MCV (RBC) [Entitic vol] 90.0 fL 78-96 [facility] Hematocrit Auto (Bld) [Volum e fraction]Ordered By: Dr. Vasquez on 06-02-2022 Hematocrit (Bld) [Volume fraction] 38.5 % 37-46 [facility] Ketones Test strip Ql (U)Ord ered By: Dr. Vasquez on 06-02-2022 Ketones Ql (U) Negative Negative [facility] Laboratory - Chemistry and C hemistry - challengeOrdered By: Dr. Vasquez on 06-02-2022 ALP [Catalytic activity/Vol] 55 U/L 47-119 [facility] ALT [Catalytic activity/Vol] 20 U/L 13-56 [facility] CO2 [Moles/Vol] 27.0 mmol/L 21.0-32.0 [facility] Globulin (S) [Mass/Vol] 4.2 g/dL 2.2-4.2 [facility] Urea nitrogen/Creatinine [Mass ratio] 12.3 mg/mg 10-20 [facility] Laboratory - Hematology and Cell countsOrdered By: Dr. Vasquez on 06-02-2022 Erythrocyte distribution width (RBC) [Entitic vol] 45.8 fL 35.1-43.9 [facility] Erythrocyte distribution width (RBC) [Ratio] 14.1 % 11.6-14.6 [facility] Immature granulocytes/100 WBC (Bld) 0.400 % 0.0-0.9 [facility] Comment on above: IG% - Immature Granu locytes (promyelocytes, myelocytes and metamyelocytes) > 1% indicates that a LEFT SHIFT is Present. MCH (RBC) [Entitic mass] 28.3 pg 25.0-35.0 [facility] Nucleated RBC/100 WBC (Bld) [Ratio] 0 % 0-5 [facility] MCHC Auto (RBC) [Mass/Vol]Or dered By: Dr. Vasquez on 06-02-2022 MCHC (RBC) [Mass/Vol] 31.4 g/dL 32-36 [facility] Mucus LM Ql (Urine sed)Order ed By: Dr. Vasquez on 06-02-2022 Mucus Ql (Urine sed) 0 SEEN /hpf [facility] Nitrite Test strip Ql (U)Ord ered By: Dr. Vasquez on 06-02-2022 Nitrite Ql (U) Negative Negative [facility] No Panel InformationOrdered By: Dr. Vasquez on 06-02-2022 Estimated Creatinine Clearance Calc 102.18 ml/min [facility] Estimated GFR (MDRD) [facility] Comment on above: Test not performedAf rican Nigerian GFR Calc Estimated GFR (MDRD) Non-Af [facility] Comment on above: Test not performedNo n- GFR Calc Platelets bldOrdered By: Dr. Vasquez on 06-02-2022 Platelets (Bld) [#/Vol] 231 10*3/uL 150-450 [facility] Protein Test strip Ql (U)Ord ered By: Dr. Vasquez on 06-02-2022 Protein Ql (U) 30 mg/dl Negative [facility] Serum or plasma albumin niac urement (mass/volume)Ordered By: Dr. Vasquez on 06-02-2022 Albumin [Mass/Vol] 3.2 g/dL 3.2-5.0 [facility] Serum or plasma albumin/glob ulin mass ratioOrdered By: Dr. Vasquez on 06-02-2022 Albumin/Globulin [Mass ratio] 0.8 {ratio} 0.9-2.4 [facility] Serum or plasma calcium nica urement (mass/volume)Ordered By: Dr. Vasquez on 06-02-2022 Calcium [Mass/Vol] 8.8 mg/dL 8.5-10.1 [facility] Serum or plasma creatinine m easurement (mass/volume)Ordered By: Dr. Vasquez on 06-02-2022 Creatinine [Mass/Vol] 0.81 mg/dL 0.55-1.02 [facility] Comment on above: The validity of the calculated GFR & GFRAA in patients over 70 years has not been determined. Clinical correlation is essential. Serum or plasma urea nitroge n measurement (mass/volume)Ordered By: Dr. Vasquez on 06-02-2022 Urea nitrogen [Mass/Vol] 10 mg/dL 7-18 [facility] Squamous epithelial cells de tection in urine sediment by light microscopyOrdered By: Dr. Vasquez on 06-02-2022 Epithelial cells.squamous LM Ql (Urine sed) 0-5 SEEN /hpf 5-10 [facility] Thin prep Papanicolaou smear with manual screeningOrdered By: Dr. Vasquez on 06-02-2022 Thin prep Papanicolaou smear with manual screening 10 U/L 15-37 [facility] Thin prep Papanicolaou smear with manual screening 6 5-15 [facility] Urine blood detectionOrdered By: Dr. Vasquez on 06-02-2022 RBC Ql (U) 250 /ul Negative [facility] RBC Ql (U) 25-50 SEEN /hpf 0-5 [facility] Urine clarityOrdered By: Dr. Vasquez on 06-02-2022 Clarity (U) Sl. Cloudy Clear [facility] Urine color determinationOrd ered By: Dr. Vasquez on 06-02-2022 Color (U) Yellow Yellow [facility] Urine glucose detectionOrder ed By: Dr. Vasquez on 06-02-2022 Glucose Ql (U) Normal mg/dl Normal [facility] Urine leukocyte esterase det ection by dipstickOrdered By: Dr. Vasquez on 06-02-2022 Leukocyte esterase Test strip Ql (U) 500 /ul Negative [facility] Urine pHOrdered By: Dr. Teto mendez on 06-02-2022 pH (U) 6.5 [pH] 5.0 - 8.0 [facility] Urine sediment bacteria coun t by microscopy (number/high power field)Ordered By: Dr. Vasquez on 06-02-2022 Bacteria LM.HPF (Urine sed) [#/Area] 0 /[HPF] None Seen [facility] Urine specific gravity measu rementOrdered By: Dr. Vasquez on 06-02-2022 Specific gravity (U) [Rel density] 1.015 1.002-1.030 [facility] Urobilinogen Auto test strip Ql (U)Ordered By: Dr. Vasquez on 06-02-2022 Urobilinogen Ql (U) Normal mg/dl Normal [facility] Culture, urineOrdered By: Dr Canelo Portillo on 06-01-2022 Bacteria identified Cx Nom (U) Escherichia coli [facility] Throat specimen bacteria rodríguez ntification by cultureOrdered By: Dr. Portillo on 06-01-2022 Bacteria identified Cx Nom (Throat) streptococcus isolated. [facility] Absolute lymphocyte countOrd ered By: Dr. Portillo on 05-30-2022 Lymphocytes Auto (Unsp spec) [#/Vol] 1.81 10*3/uL 0.83-4.51 [facility] Basophil percentageOrdered B y: Dr. Portillo on 05-30-2022 Basophil percentage 50-100 SEEN /hpf 0-5 [facility] Basophils/100 WBC (Bld) 0.4 % 0-1 [facility] Bilirubin [Mass/Vol] 0.60 mg/dL 0.20-1.00 [facility] Comment on above: For patients on eltr ombopag therapy, use of Dimension [place] TBIL is not recommended. Chloride [Moles/Vol] 104 mmol/L 98-107 [facility] Eosinophils/100 WBC (Bld) 0.8 % 0-3 [facility] Glucose [Mass/Vol] 77 mg/dL 74-106 [facility] Neutrophils (Bld) [#/Vol] 7.3 10*3/uL 2.0-7.7 [facility] Neutrophils/100 WBC (Bld) 71.6 % 34-64 [facility] Potassium [Moles/Vol] 3.1 mmol/L 3.5-5.1 [facility] Protein [Mass/Vol] 8.5 g/dL 6.4-8.2 [facility] Sodium [Moles/Vol] 137 mmol/L 136-145 [facility] WBC (Bld) [#/Vol] 10.2 10*3/uL 4.5-13.0 [facility] Bilirubin Test strip Ql (U)O rdered By: Dr. Portillo on 05-30-2022 Bilirubin Ql (U) Negative Negative [facility] Blood erythrocytes count (nu mber/volume)Ordered By: Dr. Portillo on 05-30-2022 RBC (Bld) [#/Vol] 4.42 10*6/uL 4.1-4.8 [facility] Blood hemoglobin measurement (mass/volume)Ordered By: Dr. Portillo on 05-30-2022 Hemoglobin (Bld) [Mass/Vol] 12.7 g/dL 12.0-15.0 [facility] Blood lymphocytes/100 leukoc ytesOrdered By: Dr. Portillo on 05-30-2022 Lymphocytes/100 WBC (Bld) 17.7 % 25-45 [facility] Blood monocytes/100 leukocyt esOrdered By: Dr. Portillo on 05-30-2022 Monocytes/100 WBC (Bld) 9.1 % 3-6 [facility] Blood platelet mean volumeOr dered By: Dr. Portillo on 05-30-2022 Platelet mean volume (Bld) [Entitic vol] 12.0 fL 6.2-12.0 [facility] Determination of erythrocyte mean corpuscular volume (MCV)Ordered By: Dr. Portillo on 05-30-2022 MCV (RBC) [Entitic vol] 89.6 fL 78-96 [facility] Hematocrit Auto (Bld) [Volum e fraction]Ordered By: Dr. Portillo on 05-30-2022 Hematocrit (Bld) [Volume fraction] 39.6 % 37-46 [facility] Ketones Test strip Ql (U)Ord ered By: Dr. Portillo on 05-30-2022 Ketones Ql (U) Negative Negative [facility] Laboratory - Chemistry and C hemistry - challengeOrdered By: Dr. Portillo on 05-30-2022 HCG ( test) Ql (U) Negative [facility] Comment on above: Very dilute urine sp ecimens, as indicated by a low specificgravity, may not contain resources representative levels of hCG. If is still suspected, a first morning urinespecimen should be collected 48 hours later and tested. ALP [Catalytic activity/Vol] 67 U/L 47-119 [facility] ALT [Catalytic activity/Vol] 14 U/L 13-56 [facility] CO2 [Moles/Vol] 27.0 mmol/L 21.0-32.0 [facility] Globulin (S) [Mass/Vol] 4.9 g/dL 2.2-4.2 [facility] Urea nitrogen/Creatinine [Mass ratio] 13.0 mg/mg 10-20 [facility] Laboratory - Hematology and Cell countsOrdered By: Dr. Portillo on 05-30-2022 Erythrocyte distribution width (RBC) [Entitic vol] 45.1 fL 35.1-43.9 [facility] Erythrocyte distribution width (RBC) [Ratio] 13.7 % 11.6-14.6 [facility] Immature granulocytes/100 WBC (Bld) 0.400 % 0.0-0.9 [facility] Comment on above: IG% - Immature Granu locytes (promyelocytes, myelocytes and metamyelocytes) > 1% indicates that a LEFT SHIFT is Present. MCH (RBC) [Entitic mass] 28.7 pg 25.0-35.0 [facility] Nucleated RBC/100 WBC (Bld) [Ratio] 0 % 0-5 [facility] MCHC Auto (RBC) [Mass/Vol]Or dered By: Dr. Portillo on 05-30-2022 MCHC (RBC) [Mass/Vol] 32.1 g/dL 32-36 [facility] Mucus LM Ql (Urine sed)Order ed By: Dr. Portillo on 05-30-2022 Mucus Ql (Urine sed) 4+ /hpf [facility] Nitrite Test strip Ql (U)Ord ered By: Dr. Portillo on 05-30-2022 Nitrite Ql (U) Positive Negative [facility] No Panel InformationOrdered By: Dr. Portillo on 05-30-2022 Estimated Creatinine Clearance Calc 135.69 ml/min [facility] Estimated GFR (MDRD) [facility] Comment on above: Test not performedAf rican Nigerian GFR Calc Estimated GFR (MDRD) Non-Af er [facility] Comment on above: Test not performedNo n- GFR Calc Platelets bldOrdered By: Dr. Portillo on 05-30-2022 Platelets (Bld) [#/Vol] 237 10*3/uL 150-450 [facility] Protein Test strip Ql (U)Ord ered By: Dr. Portillo on 05-30-2022 Protein Ql (U) 100 mg/dl Negative [facility] Serum heterophile antibody d etectionOrdered By: Dr. Portillo on 05-30-2022 Heterophile Ab Ql (S) Negative Negative [facility] Serum or plasma albumin nica urement (mass/volume)Ordered By: Dr. Portillo on 05-30-2022 Albumin [Mass/Vol] 3.6 g/dL 3.2-5.0 [facility] Serum or plasma albumin/glob ulin mass ratioOrdered By: Dr. Portillo on 05-30-2022 Albumin/Globulin [Mass ratio] 0.7 {ratio} 0.9-2.4 [facility] Serum or plasma calcium nica urement (mass/volume)Ordered By: Dr. Portillo on 05-30-2022 Calcium [Mass/Vol] 9.5 mg/dL 8.5-10.1 [facility] Serum or plasma creatinine m easurement (mass/volume)Ordered By: Dr. Portillo on 05-30-2022 Creatinine [Mass/Vol] 0.61 mg/dL 0.55-1.02 [facility] Comment on above: The validity of the calculated GFR & GFRAA in patients over 70 years has not been determined. Clinical correlation is essential. Serum or plasma urea nitroge n measurement (mass/volume)Ordered By: Dr. Portillo on 05-30-2022 Urea nitrogen [Mass/Vol] 8 mg/dL 7-18 [facility] Squamous epithelial cells de tection in urine sediment by light microscopyOrdered By: Dr. Portillo on 05-30-2022 Epithelial cells.squamous LM Ql (Urine sed) 5-10 SEEN /hpf 5-10 [facility] Thin prep Papanicolaou smear with manual screeningOrdered By: Dr. Portillo on 05-30-2022 Thin prep Papanicolaou smear with manual screening 9 U/L 15-37 [facility] Thin prep Papanicolaou smear with manual screening 6 5-15 [facility] Urine blood detectionOrdered By: Dr. Portillo on 05-30-2022 RBC Ql (U) 250 /ul Negative [facility] RBC Ql (U) 25-50 SEEN /hpf 0-5 [facility] Urine clarityOrdered By: Dr. Portillo on 05-30-2022 Clarity (U) Cloudy Clear [facility] Urine color determinationOrd ered By: Dr. Portillo on 05-30-2022 Color (U) Yellow Yellow [facility] Urine glucose detectionOrder ed By: Dr. Portillo on 05-30-2022 Glucose Ql (U) Normal mg/dl Normal [facility] Urine leukocyte esterase det ection by dipstickOrdered By: Dr. Portillo on 05-30-2022 Leukocyte esterase Test strip Ql (U) 500 /ul Negative [facility] Urine pHOrdered By: Dr. Omar méndez on 05-30-2022 pH (U) 6.0 [pH] 5.0 - 8.0 [facility] Urine sediment bacteria coun t by microscopy (number/high power field)Ordered By: Dr. Portillo on 05-30-2022 Bacteria LM.HPF (Urine sed) [#/Area] 3 /[HPF] None Seen [facility] Urine specific gravity measu rementOrdered By: Dr. Portillo on 05-30-2022 Specific gravity (U) [Rel density] 1.020 1.002-1.030 [facility] Urobilinogen Auto test strip Ql (U)Ordered By: Dr. Portillo on 05-30-2022 Urobilinogen Ql (U) Normal mg/dl Normal [facility] STREP A MOLECULAR (POC)on Procedural Control Valid [facility] Strep A (POCT) Negative Negative [facility] UA DIP, URINE (POC)on 2021 BILIRUBIN UA (POCT) Negative Negative [facility] CLARITY UA (POCT) Slightly Cloudy Cl [facility] COLOR UA (POCT) Yellow [facility] GLUCOSE UA (POCT) Negative Negative mg/dL [facility] HEMOGLOBIN/BLOOD UA (POCT) Trace-intact Abnormal Negative [facility] KETONE UA (POCT) Negative Negative mg/dL [facility] LEUKOCYTES UA (POCT) Small Abnormal Negative [facility] NITRITE UA (POCT) Negative Negative [facility] PH UA (POCT) 7.0 4.5 - 8.0 [facility] Protein Ql (U) Trace Abnormal Negative mg/dL [facility] SPECIFIC GRAVITY UA (POCT) 1.020 1.005 - 1.030 [facility] UROBILINOGEN UA (POCT) 1.0 E.U./dL Normal E.U./ dL [facility] XR ANKLE GENERAL 3V AP/LAT/O BL RIGHTon 04-08-2022 [facility] XR Ankle - right AP and Late ral and obliqueon 04-08-2022 IMPRESSION: Findings concerning for nondisplaced avulsion fracture of the dorsal talus with tibiotalar joint effusion and lateral ankle soft tissue swelling. 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[email or web address] Transcribe Date/Time: Apr 08 2022 4:37P Dictated by : AYLA MCNULTY MD This examination was interpreted and the report reviewed and electronically signed by: AYLA MCNULTY MD on Apr 08 2022 4:38PM [facility] DIVISION OF RADIOLOGY * * *Final Report* * * DATE OF EXAM: Apr 08 2022 4:27PM WOX 5297 - XR ANKLE 3V AP/LAT/OBL RT / PROCEDURE REASON: Injury of right ankle, initial encounter * * * * Physician Interpretation * * * * TECHNIQUE: XR ANKLE 3V AP/LAT/OBL RT HISTORY: 16 years Female Injury of right ankle, initial encounter COMPARISON: None RESULT: Tiny osseous fragment about the dorsal talus, likely related to nondisplaced avulsion fracture. The ankle mortise is congruent. The distal tibia and fibula are intact. There is moderate tibiotalar joint effusion and lateral ankle soft tissue swelling. DIVISION OF RADIOLOGY Provider, [facility] 04/08/2022 * * *Final Report* * * DATE OF EXAM: Apr 08 2022 4:27PM WOX 5297 - XR ANKLE 3V AP/LAT/OBL RT / PROCEDURE REASON: Injury of right ankle, initial encounter * * * * Physician Interpretation * * * * TECHNIQUE: XR ANKLE 3V AP/LAT/OBL RT HISTORY: 16 years Female Injury of right ankle, initial encounter COMPARISON: None RESULT: Tiny osseous fragment about the dorsal talus, likely related to nondisplaced avulsion fracture. The ankle mortise is congruent. The distal tibia and fibula are intact. There is moderate tibiotalar joint effusion and lateral ankle soft tissue swelling. IMPRESSION IMPRESSION: Findings concerning for nondisplaced avulsion fracture of the dorsal talus with tibiotalar joint effusion and lateral ankle soft tissue swelling. 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 Transcribe Date/Time: Apr 08 2022 4:37P Dictated by : AYLA MCNULTY MD This examination was interpreted and the report reviewed and electronically signed by: AYLA MCNULTY MD on Apr 08 2022 4:38PM EST [facility] Radiology Study observation (narrative) [facility] XR Ankle - right AP and Late ral and obliqueOrdered By: [facility] Provider on 04-08-2022 [facility] UA DIP, URINE (POC)on 2021 BILIRUBIN UA (POCT) Negative Negative [facility] CLARITY UA (POCT) Cloudy [facility] COLOR UA (POCT) Yellow [facility] GLUCOSE UA (POCT) Negative Negative mg/dL [facility] HEMOGLOBIN/BLOOD UA (POCT) Moderate Abnormal Negative [facility] KETONE UA (POCT) Negative Negative mg/dL [facility] LEUKOCYTES UA (POCT) [facility] NITRITE UA (POCT) Negative Negative [facility] PH UA (POCT) 7.0 4.5 - 8.0 [facility] Protein Ql (U) >=300 Abnormal Negative mg/dL [facility] SPECIFIC GRAVITY UA (POCT) >=1.030 1.005 - 1.030 [facility] UROBILINOGEN UA (POCT) 0.2 E.U./dL Normal E.U./ dL [facility] Vital Signs Date Time Vital Sign Value Performing Clinician Facility 05-06-2025 12:43-0500 Diastolic Blood Pressure Non-Invasive 80 mm[Hg] KIM ANDERSON MD [facility] 05-06-2025 12:43-0500 Heart rate 102 /min KIM ANDERSON MD [facility] 05-06-2025 12:43-0500 Mean blood pressure 92 mm[Hg] KIM ANDERSON MD [facility] 05-06-2025 12:43-0500 Respiratory rate 16 /min KIM ANDERSON MD [facility] 05-06-2025 12:43-0500 Systolic Blood Pressure Non-Invasive 114 mm[Hg] KIM ANDERSON MD [facility] 05-06-2025 11:03-0500 Body temperature 100.04 [degF] KIM ANDERSON MD [facility] 05-06-2025 11:03-0500 Diastolic Blood Pressure Non-Invasive 72 mm[Hg] KIM ANDERSON MD [facility] 05-06-2025 11:03-0500 Heart rate 122 /min KIM ANDERSON MD [facility] 05-06-2025 11:03-0500 Respiratory rate 16 /min KIM ANDERSON MD [facility] 05-06-2025 11:03-0500 Systolic Blood Pressure Non-Invasive 113 mm[Hg] KIM ANDERSON MD [facility] 04-27-2025 08:21-0400 Body height 167.6 cm Ashlyn Abraham [employer]ICENSED [employer]ENSING [employer]IAN - COOPERATIVE MANAGER Work Phone: [facility] 04-27-2025 08:21-0400 Body mass index (BMI) [Ratio] 25.82 kg/m2 Ashlyn Abraham [employer]ICENSED [employer]PENSING [employer]IAN - COOPERATIVE MANAGER Work Phone: [facility] 04-27-2025 08:21-0400 Body temperature 98.2 [degF] Ashlyn Abraham LICENSED DISPENSING [employer]ICIAN - COOPERATIVE MANAGER Work Phone: [facility] [employer] 04-27-2025 08:21-0400 Body weight 72.58 kg Ashlyn Abraham LICENSED [employer]PENSING [employer]ICIAN - COOPERATIVE MANAGER Work Phone: [facility] 04-27-2025 08:21-0400 Diastolic blood pressure 82 mm[Hg] Ashlyn Abraham LICENSED DISPENSING [employer]ICIAN - COOPERATIVE MANAGER Work Phone: [facility] 04-27-2025 08:21-0400 Heart rate 96 /min Ashlyn Abraham LICENSED DISPENSING [employer]ICIAN - COOPERATIVE MANAGER Work Phone: [facility] 04-27-2025 08:21-0400 Systolic blood pressure 120 mm[Hg] Ashlyn Gannohemy LICENSED [employer]PENSING [employer]ICIAN - COOPERATIVE MANAGER Work Phone: [facility] 03-31-2025 14:29-0400 Body height 167.6 cm Ashlyn Ganc LICENSED DISPENSING [employer]ICIAN - COOPERATIVE MANAGER Work Phone: [facility] 03-31-2025 14:29-0400 Body mass index (BMI) [Ratio] 24.53 kg/m2 Ashlyn Gannohemy LICENSED DISPENSING [employer]ICIAN - COOPERATIVE MANAGER Work Phone: [facility] 03-31-2025 14:29-0400 Body temperature 97.81 [degF] Ashlyn Guerraann mariec LICENSED DISPENSING [employer]IAN - COOPERATIVE MANAGER Work Phone: [facility] 03-31-2025 14:29-0400 Body weight 68.95 kg Ashlyn Guerraann mariec LICENSED DISPENSING [employer]ICIAN - COOPERATIVE MANAGER Work Phone: [facility] 03-31-2025 14:29-0400 Diastolic blood pressure 83 mm[Hg] Ashlyn Gannohemy LICENSED DISPENSING OPTICIAN - COOPERATIVE MANAGER Work Phone: [facility] 03-31-2025 14:29-0400 Heart rate 88 /min Ashlyn Gannohemy LICENSED DISPENSING [employer]ICIAN - COOPERATIVE MANAGER Work Phone: [facility] 03-31-2025 14:29-0400 Systolic blood pressure 128 mm[Hg] Ashlyn Charlieannamarie LICENSED DISPENSING [employer]ICIAN - COOPERATIVE MANAGER Work Phone: [facility] 03-03-2025 11:30-0400 Body mass index (BMI) [Ratio] 25.41 kg/m2 Andrew Swank LICENSED DISPENSING OPTICIAN.COOPERATIVE MANAGER Work Phone: [facility] 03-03-2025 11:30-0400 Body temperature 97.9 [degF] Andrew Swank LICENSED DISPENSING OPTICIAN.COOPERATIVE MANAGER Work Phone: [facility] 03-03-2025 11:30-0400 Body weight 71.4 kg Andrew Swank LICENSED DISPENSING OPTICIAN.COOPERATIVE MANAGER Work Phone: [facility] 03-03-2025 11:30-0400 Diastolic blood pressure 73 mm[Hg] Andrew Swank LICENSED DISPENSING OPTICIAN.COOPERATIVE MANAGER Work Phone: [facility] 03-03-2025 11:30-0400 Heart rate 95 /min Andrew Swank LICENSED DISPENSING OPTICIAN.COOPERATIVE MANAGER Work Phone: [facility] 03-03-2025 11:30-0400 Respiratory rate 18 /min Andrew Swank LICENSED DISPENSING OPTICIAN.COOPERATIVE MANAGER Work Phone: [facility] 03-03-2025 11:30-0400 SaO2% (BldA) [Mass fraction] 99 % Andrew Swank LICENSED DISPENSING OPTICIAN.COOPERATIVE MANAGER Work Phone: [facility] 03-03-2025 11:30-0400 Systolic blood pressure 133 mm[Hg] Andrew Swank LICENSED DISPENSING OPTICIAN.COOPERATIVE MANAGER Work Phone: [facility] 02-14-2025 15:53-0400 Body mass index (BMI) [Ratio] 25.66 kg/m2 Kourtney Sherman MD Work Phone: [facility] 02-14-2025 15:53-0400 Body temperature 99.1 [degF] Kourtney Sherman MD Work Phone: [facility] 02-14-2025 15:53-0400 Body weight 72.12 kg Kourtney Sherman MD Work Phone: [facility] 02-14-2025 15:53-0400 Diastolic blood pressure 74 mm[Hg] Kourtney Sherman MD Work Phone: [facility] 02-14-2025 15:53-0400 Heart rate 102 /min Kourtney Sherman MD Work Phone: [facility] 02-14-2025 15:53-0400 Respiratory rate 14 /min Kourtney Sherman MD Work Phone: [facility] 02-14-2025 15:53-0400 SaO2% (BldA) [Mass fraction] 98 % Kourtney Sherman MD Work Phone: [facility] 02-14-2025 15:53-0400 Systolic blood pressure 112 mm[Hg] Kourtney Sherman MD Work Phone: [facility] 02-08-2025 16:17-0400 Body mass index (BMI) [Ratio] 25.66 kg/m2 Roland Cortez LICENSED DISPENSING OPTICIAN.COOPERATIVE MANAGER Work Phone: [facility] 02-08-2025 16:17-0400 Body weight 72.12 kg Roland Hadoni LICENSED DISPENSING OPTICIAN.COOPERATIVE MANAGER Work Phone: [facility] 02-08-2025 16:17-0400 Diastolic blood pressure 70 mm[Hg] Roland Haury LICENSED DISPENSING OPTICIAN.COOPERATIVE MANAGER Work Phone: [facility] 02-08-2025 16:17-0400 Systolic blood pressure 114 mm[Hg] Roland Haury LICENSED DISPENSING OPTICIAN.COOPERATIVE MANAGER Work Phone: [facility] 12-13-2024 15:16-0400 Body mass index (BMI) [Ratio] 26.47 kg/m2 Breanne Joshi MD Work Phone: [facility] 12-13-2024 15:16-0400 Body weight 74.39 kg Breanne Joshi MD Work Phone: [facility] 11-23-2024 16:22-0400 Body mass index (BMI) [Ratio] 25.98 kg/m2 Isabel De Santiago APRN.COOPERATIVE MANAGER Work Phone: [facility] 11-23-2024 16:22-0400 Body temperature 98.01 [degF] Isabel De Santiago LICENSED DISPENSING OPTICIAN.COOPERATIVE MANAGER Work Phone: [facility] 11-23-2024 16:22-0400 Body weight 73 kg Isabel De Santiago LICENSED DISPENSING OPTICIAN.COOPERATIVE MANAGER Work Phone: [facility] 11-23-2024 16:22-0400 Diastolic blood pressure 68 mm[Hg] Isabel De Santiago LICENSED DISPENSING OPTICIAN.COOPERATIVE MANAGER Work Phone: [facility] 11-23-2024 16:22-0400 Heart rate 120 /min Isabel De Santiago LICENSED DISPENSING OPTICIAN.COOPERATIVE MANAGER Work Phone: [facility] 11-23-2024 16:22-0400 Respiratory rate 16 /min Isabel De Santiago LICENSED DISPENSING OPTICIAN.COOPERATIVE MANAGER Work Phone: [facility] 11-23-2024 16:22-0400 SaO2% (BldA) [Mass fraction] 98 % Isabel De Santiago LICENSED DISPENSING OPTICIAN.COOPERATIVE MANAGER Work Phone: [facility] 11-23-2024 16:22-0400 Systolic blood pressure 110 mm[Hg] Isabel De Santiago LICENSED DISPENSING OPTICIAN.COOPERATIVE MANAGER Work Phone: [facility] 11-15-2024 16:12-0400 Body mass index (BMI) [Ratio] 25.47 kg/m2 Kourtney Sherman MD Work Phone: [facility] 11-15-2024 16:12-0400 Body temperature 97.7 [degF] Kourtney Sherman MD Work Phone: [facility] 11-15-2024 16:12-0400 Body weight 71.58 kg Kourtney Sherman MD Work Phone: [facility] 11-15-2024 16:12-0400 Diastolic blood pressure 80 mm[Hg] Kourtney Sherman MD Work Phone: [facility] 11-15-2024 16:12-0400 Heart rate 127 /min Kourtney Sherman MD Work Phone: [facility] 11-15-2024 16:12-0400 Respiratory rate 12 /min Kourtney Sherman MD Work Phone: [facility] 11-15-2024 16:12-0400 SaO2% (BldA) [Mass fraction] 98 % Kourtney Sherman MD Work Phone: [facility] 11-15-2024 16:12-0400 Systolic blood pressure 122 mm[Hg] Kourtney Sherman MD Work Phone: [facility] 09-20-2024 19:00-0400 Body mass index (BMI) [Ratio] 24.77 kg/m2 Melinda Praisler-Wood LICENSED DISPENSING OPTICIAN.COOPERATIVE MANAGER Work Phone: [facility] 09-20-2024 19:00-0400 Body temperature 99.19 [degF] Melinda Praisler-Wood LICENSED DISPENSING OPTICIAN.COOPERATIVE MANAGER Work Phone: [facility] 09-20-2024 19:00-0400 Body weight 69.6 kg Melinda Praisler-Wood LICENSED DISPENSING OPTICIAN.COOPERATIVE MANAGER Work Phone: [facility] 09-20-2024 19:00-0400 Diastolic blood pressure 70 mm[Hg] Melinda Praisler-Wood LICENSED DISPENSING OPTICIAN.[facility] Work Phone: [facility] 09-20-2024 19:00-0400 Heart rate 120 /min Melinda Praisler-Wood LICENSED DISPENSING OPTICIAN.COOPERATIVE MANAGER Work Phone: [facility] 09-20-2024 19:00-0400 Respiratory rate 18 /min Melinda Praisler-Wood LICENSED DISPENSING OPTICIAN.COOPERATIVE MANAGER Work Phone: [facility] 09-20-2024 19:00-0400 SaO2% (BldA) [Mass fraction] 97 % Melinda Praisler-Wood LICENSED DISPENSING OPTICIAN.COOPERATIVE MANAGER Work Phone: [facility] 09-20-2024 19:00-0400 Systolic blood pressure 122 mm[Hg] Melinda Praisler-Wood LICENSED DISPENSING OPTICIAN.COOPERATIVE MANAGER Work Phone: [facility] 09-17-2024 12:56-0400 Body mass index (BMI) [Ratio] 24.91 kg/m2 Krislyn Aberegg PA Work Phone: [facility] 09-17-2024 12:56-0400 Body temperature 98.1 [degF] Krislyn Aberegg PA Work Phone: [facility] 09-17-2024 12:56-0400 Body weight 70 kg Krislyn Aberegg PA Work Phone: [facility] 09-17-2024 12:56-0400 Diastolic blood pressure 84 mm[Hg] Krislyn Aberegg PA Work Phone: [facility] 09-17-2024 12:56-0400 Heart rate 111 /min Krislyn Aberegg PA Work Phone: [facility] 09-17-2024 12:56-0400 Respiratory rate 16 /min Krislyn Aberegg PA Work Phone: [facility] 09-17-2024 12:56-0400 SaO2% (BldA) [Mass fraction] 99 % Krislyn Aberegg PA Work Phone: [facility] 09-17-2024 12:56-0400 Systolic blood pressure 119 mm[Hg] Krislyn Aberegg PA Work Phone: [facility] 09-13-2024 08:32-0400 Body mass index (BMI) [Ratio] 24.37 kg/m2 Breanne Joshi MD Work Phone: [facility] 09-13-2024 08:32-0400 Body weight 68.49 kg Breanne Joshi MD Work Phone: [facility] 09-13-2024 08:32-0400 Diastolic blood pressure 60 mm[Hg] Breanne Joshi MD Work Phone: [facility] 09-13-2024 08:32-0400 Systolic blood pressure 110 mm[Hg] Breanne Joshi MD Work Phone: [facility] 09-10-2024 14:01-0400 Body mass index (BMI) [Ratio] 24.27 kg/m2 Aniceto Strong APRN.COOPERATIVE MANAGER Work Phone: [facility] 09-10-2024 14:01-0400 Body temperature 98.4 [degF] Aniceto Strong APRN.COOPERATIVE MANAGER Work Phone: [facility] 09-10-2024 14:01-0400 Body weight 68.2 kg Aniceto Strong APRN.COOPERATIVE MANAGER Work Phone: [facility] 09-10-2024 14:01-0400 Diastolic blood pressure 73 mm[Hg] Aniceto Strong APRN.COOPERATIVE MANAGER Work Phone: [facility] 09-10-2024 14:01-0400 Heart rate 104 /min Aniceto Strong APRN.COOPERATIVE MANAGER Work Phone: [facility] 09-10-2024 14:01-0400 Respiratory rate 18 /min Aniceto Strong APRN.COOPERATIVE MANAGER Work Phone: [facility] 09-10-2024 14:01-0400 SaO2% (BldA) [Mass fraction] 97 % Aniceto Strong APRN.COOPERATIVE MANAGER Work Phone: [facility] 09-10-2024 14:01-0400 Systolic blood pressure 106 mm[Hg] Aniceto Strong APRN.COOPERATIVE MANAGER Work Phone: [facility] 09-07-2024 16:03-0400 Body mass index (BMI) [Ratio] 22.7 kg/m2 Aniceto Strong APRN.COOPERATIVE MANAGER Work Phone: [facility] 09-07-2024 16:03-0400 Body temperature 98.6 [degF] Aniceto Strong APRN.COOPERATIVE MANAGER Work Phone: [facility] 09-07-2024 16:03-0400 Body weight 63.8 kg Aniceto Strong APRN.COOPERATIVE MANAGER Work Phone: [facility] 09-07-2024 16:03-0400 Diastolic blood pressure 72 mm[Hg] Aniceto Strong APRN.COOPERATIVE MANAGER Work Phone: [facility] 09-07-2024 16:03-0400 Heart rate 122 /min Aniceto Strong APRN.COOPERATIVE MANAGER Work Phone: [facility] 09-07-2024 16:03-0400 Respiratory rate 16 /min Aniceto Strong APRN.COOPERATIVE MANAGER Work Phone: [facility] 09-07-2024 16:03-0400 SaO2% (BldA) [Mass fraction] 97 % Aniceto Strong APRN.COOPERATIVE MANAGER Work Phone: [facility] 09-07-2024 16:03-0400 Systolic blood pressure 118 mm[Hg] Aniceto Strong KELLI Work Phone: [facility] 07-18-2024 09:57-0500 Body height 167.6 cm Kourtney Sherman MD Work Phone: [facility] 07-18-2024 09:57-0500 Body mass index (BMI) [Ratio] 24.02 kg/m2 Kourtney Sherman MD Work Phone: [facility] 07-18-2024 09:57-0500 Body temperature 97.81 [degF] Kourtney Sherman MD Work Phone: [facility] 07-18-2024 09:57-0500 Body weight 67.5 kg Kourtney Sherman MD Work Phone: [facility] 07-18-2024 09:57-0500 Diastolic blood pressure 76 mm[Hg] Kourtney Sherman MD Work Phone: [facility] 07-18-2024 09:57-0500 Heart rate 93 /min Kourtney Sherman MD Work Phone: [facility] 07-18-2024 09:57-0500 SaO2% (BldA) [Mass fraction] 98 % Kourtney Sherman MD Work Phone: [facility] 07-18-2024 09:57-0500 Systolic blood pressure 102 mm[Hg] Kourtney Sherman MD Work Phone: [facility] 06-10-2024 09:30-0500 Body weight 71.67 kg Breanne Joshi MD Work Phone: [facility] 06-10-2024 09:30-0500 Diastolic blood pressure 62 mm[Hg] Breanne Joshi MD Work Phone: [facility] 06-10-2024 09:30-0500 Systolic blood pressure 110 mm[Hg] Breanne Joshi MD Work Phone: [facility] 05-12-2024 12:34-0500 Body height 167.6 cm VERONICA WOODS MD [facility] 05-12-2024 12:34-0500 Body temperature 98.06 [degF] VERONICA WOODS MD [facility] 05-12-2024 12:34-0500 Body weight 68.2 kg VERONICA WOODS MD [facility] 05-12-2024 12:34-0500 Diastolic Blood Pressure Non-Invasive 82 mm[Hg] VERONICA WOODS MD [facility] 05-12-2024 12:34-0500 Heart rate 95 /min VERONICA WOODS MD [facility] 05-12-2024 12:34-0500 Height ZScore 0.67 1 VERONICA WOODS MD [facility] Comment on above: Result Comment: ^~:!ZScore Source -[facility] 05-12-2024 12:34-0500 Percent Height for Age 74.74 % VERONICA WOODS MD [facility] Comment on above: Result Comment: ^~:!Percentile Source -[facility] 05-12-2024 12:34-0500 Respiratory rate 16 /min VERONICA WOODS MD [facility] 05-12-2024 12:34-0500 Systolic Blood Pressure Non-Invasive 130 mm[Hg] VERONICA WOODS MD [facility] 05-05-2024 13:55-0500 Body temperature 97.39 [degF] Jt Gómez MD Work Phone: [facility] 05-05-2024 13:55-0500 Body weight 71.9 kg Jt Gómez MD Work Phone: [facility] 05-05-2024 13:55-0500 Diastolic blood pressure 88 mm[Hg] Jt Gómez MD Work Phone: [facility] 05-05-2024 13:55-0500 Heart rate 95 /min Jt Gómez MD Work Phone: [facility] 05-05-2024 13:55-0500 Respiratory rate 20 /min Jt Gómez MD Work Phone: [facility] 05-05-2024 13:55-0500 SaO2% (BldA) [Mass fraction] 96 % Jt Gómez MD Work Phone: [facility] 05-05-2024 13:55-0500 Systolic blood pressure 122 mm[Hg] Jt Gómez MD Work Phone: [facility] 02-25-2024 07:58-0400 Body temperature 98.1 [degF] Hugo Rodriguez MD Work Phone: [facility] [employer] 02-25-2024 07:58-0400 Diastolic blood pressure 85 mm[Hg] Hugo Rodriguez MD Work Phone: [facility] 02-25-2024 07:58-0400 Heart rate 102 /min Hugo Rodriguez MD Work Phone: [facility] 02-25-2024 07:58-0400 Respiratory rate 16 /min Hugo Rodriguez MD Work Phone: [facility] 02-25-2024 07:58-0400 SaO2% (BldA) [Mass fraction] 97 % Hugo Rodriguez MD Work Phone: [facility] 02-25-2024 07:58-0400 Systolic blood pressure 127 mm[Hg] Hugo Rodriguez MD Work Phone: [facility] 02-18-2024 14:49-0400 Body height 167.6 cm Hugo Rodriguez MD Work Phone: [facility] 02-18-2024 14:49-0400 Body mass index (BMI) [Ratio] 29.54 kg/m2 Hugo Rodriguez MD Work Phone: [facility] 02-18-2024 14:49-0400 Body weight 83.01 kg Hugo Rodriguez MD Work Phone: [facility] 02-10-2024 14:25-0400 Heart rate 88 /min Calista Pham MD Work Phone: [facility] 02-10-2024 12:03-0400 Body height 167.6 cm Calista Pham MD Work Phone: [facility] 02-10-2024 12:03-0400 Body mass index (BMI) [Ratio] 28.08 kg/m2 Calista Pham MD Work Phone: [facility] 02-10-2024 12:03-0400 Body weight 78.93 kg Calista Pham MD Work Phone: [facility] 02-10-2024 12:00-0400 Body temperature 98.01 [degF] Calista Pham MD Work Phone: [facility] 02-10-2024 12:00-0400 Diastolic blood pressure 80 mm[Hg] Calista Pham MD Work Phone: [facility] 02-10-2024 12:00-0400 Respiratory rate 18 /min Calista Pham MD Work Phone: [facility] 02-10-2024 12:00-0400 SaO2% (BldA) [Mass fraction] 100 % Calista Pham MD Work Phone: [facility] [employer] 02-10-2024 12:00-0400 Systolic blood pressure 133 mm[Hg] Calista Pham MD Work Phone: [facility] 02-10-2024 00:49-0400 Diastolic blood pressure 85 mm[Hg] Jolene Estevez DO Work Phone: [facility] 02-10-2024 00:49-0400 Systolic blood pressure 130 mm[Hg] Ankarly Estevez DO Work Phone: [facility] 02-10-2024 00:48-0400 Body temperature 97.81 [degF] Anhtuan Estevez DO Work Phone: [facility] 02-10-2024 00:48-0400 Heart rate 95 /min Bellehtraul Estevez DO Work Phone: [facility] 02-10-2024 00:48-0400 Respiratory rate 18 /min Jolene Readynh DO Work Phone: [facility] 02-10-2024 00:48-0400 SaO2% (BldA) [Mass fraction] 98 % Bellehtraul Estevez DO Work Phone: [facility] 01-14-2024 15:57-0400 Body temperature 98.01 [degF] Jolene Estevez DO Work Phone: [facility] 01-14-2024 15:57-0400 Diastolic blood pressure 80 mm[Hg] Jolene Estevez DO Work Phone: [facility] 01-14-2024 15:57-0400 Heart rate 144 /min Jolene Estevez DO Work Phone: [facility] 01-14-2024 15:57-0400 Respiratory rate 18 /min Jolene Readynh DO Work Phone: [facility] 01-14-2024 15:57-0400 Systolic blood pressure 122 mm[Hg] Jolene Estevez DO Work Phone: [facility] 01-09-2024 20:08-0400 Body temperature 99.5 [degF] Ankarly Estevez DO Work Phone: [facility] 01-09-2024 20:08-0400 Diastolic blood pressure 90 mm[Hg] Jacquelineuan Estevez DO Work Phone: [facility] 01-09-2024 20:08-0400 Heart rate 108 /min AnHeartFlowraul Estevez DO Work Phone: [facility] 01-09-2024 20:08-0400 Respiratory rate 18 /min BelleHeartFlowraul Estevez DO Work Phone: [facility] 01-09-2024 20:08-0400 SaO2% (BldA) [Mass fraction] 95 % BelleHeartFlowraul Estevez DO Work Phone: [facility] 01-09-2024 20:08-0400 Systolic blood pressure 128 mm[Hg] BelleHeartFlowraul Estevez DO Work Phone: [facility] 01-07-2024 20:37-0400 Body height 167.6 cm BelleHeartFlowraul Estevez DO Work Phone: [facility] 01-07-2024 20:37-0400 Body mass index (BMI) [Ratio] 27.12 kg/m2 BelleHeartFlowraul Estevez Rambus Work Phone: [facility] 01-07-2024 20:37-0400 Body weight 76.2 kg BelleHeartFlowraul Estevez [place]us Work Phone: [facility] 01-02-2024 08:25-0400 Diastolic blood pressure 54 mm[Hg] Vianey Mena MD Work Phone: [facility] 01-02-2024 08:25-0400 Heart rate 83 /min Vianey Mena MD Work Phone: [facility] 01-02-2024 08:25-0400 Systolic blood pressure 110 mm[Hg] Vianey Mena MD Work Phone: [facility] 12-21-2023 13:00-0400 Heart rate 91 /min Calista Pham MD Work Phone: [facility] 12-21-2023 13:00-0400 SaO2% (BldA) [Mass fraction] 99 % Calista Pham MD Work Phone: [facility] 12-21-2023 12:26-0400 Body height 167.6 cm Calista Pham MD Work Phone: [facility] 12-21-2023 12:26-0400 Body mass index (BMI) [Ratio] 25.99 kg/m2 Calista Pham MD Work Phone: [facility] 12-21-2023 12:26-0400 Body temperature 98.2 [degF] Calista Pham MD Work Phone: [facility] 12-21-2023 12:26-0400 Body weight 73.03 kg Calista Pham MD Work Phone: [facility] 12-21-2023 12:26-0400 Respiratory rate 16 /min Calista Pham MD Work Phone: [facility] 12-21-2023 12:25-0400 Diastolic blood pressure 80 mm[Hg] Calista Pham MD Work Phone: [facility] 12-21-2023 12:25-0400 Systolic blood pressure 123 mm[Hg] Calista Pham MD Work Phone: [facility] 10-30-2023 19:52-0400 Body temperature 98.6 [degF] Hugo Rodriguez MD Work Phone: [facility] 10-30-2023 19:52-0400 Diastolic blood pressure 80 mm[Hg] Hugo Rodriguez MD Work Phone: [facility] 10-30-2023 19:52-0400 Heart rate 87 /min Hugo Rodriguez MD Work Phone: [facility] 10-30-2023 19:52-0400 Respiratory rate 16 /min Hugo Rodriguez MD Work Phone: [facility] 10-30-2023 19:52-0400 SaO2% (BldA) [Mass fraction] 97 % Hugo Rodriguez MD Work Phone: [facility] [employer] 10-30-2023 19:52-0400 Systolic blood pressure 126 mm[Hg] Hugo Rodriguez MD Work Phone: [facility] [employer] 10-30-2023 13:17-0400 Body height 167.6 cm Hugo Rodriguez MD Work Phone: [facility] 10-30-2023 13:17 Body mass index (BMI) [Percentile] Per age and sex 75.67 % Hugo Rodriguez MD Work Phone: [facility] 10-30-2023 [id number] Body mass index (BMI) [Ratio] 24.21 kg/m2 Hugo Rodriguez MD Work Phone: [facility] 10-30-2023 [id number] Body weight 68.04 kg Hugo Rodriguez MD Work Phone: [facility] 10-20-2023 11:10-040 Body temperature 98.29 [degF] Kelsy Athy PA-C Work Phone: [facility] 10-20-2023 11:10-0400 Body weight 67.8 kg Kelsy Athy PA-C Work Phone: [facility] 10-20-2023 11:10-0400 Diastolic blood pressure 72 mm[Hg] Kelsy Athy PA-C Work Phone: [facility] 10-20-2023 11:10-0400 Heart rate 122 /min Kelsy Athy PA-C Work Phone: [facility] 10-20-2023 11:10-0400 Respiratory rate 16 /min Kelsy Athy PA-C Work Phone: [facility] 10-20-2023 11:10-0400 SaO2% (BldA) [Mass fraction] 98 % Kelsy Athy PA-C Work Phone: [facility] 10-20-2023 11:10-0400 Systolic blood pressure 126 mm[Hg] Kelsy Athy PA-C Work Phone: [facility] 09-22-2023 18:04-0400 Diastolic blood pressure 75 mm[Hg] Maikel Newton MD Work Phone: [facility] 09-22-2023 18:04-0400 Heart rate 114 /min Maikel Newton MD Work Phone: [facility] 09-22-2023 18:04-0400 Systolic blood pressure 111 mm[Hg] Maikel Newton MD Work Phone: [facility] 09-22-2023 16:45-0400 Body temperature 98.49 [degF] Maikel Newton MD Work Phone: [facility] 09-22-2023 16:45-0400 Respiratory rate 16 /min Maikel Newton MD Work Phone: [facility] 09-22-2023 16:45-0400 SaO2% (BldA) [Mass fraction] 99 % Maikel Newton MD Work Phone: [facility] 09-21-2023 22:09-0400 Body height 167.6 cm Maikel Newton MD Work Phone: [facility] 09-21-2023 11:06-0400 Body mass index (BMI) [Percentile] Per age and sex 75.91 % Maikel Newton MD Work Phone: [facility] 09-21-2023 11:06-0400 Body mass index (BMI) [Ratio] 24.21 kg/m2 Maikel Newton MD Work Phone: [facility] 09-21-2023 11:06-0400 Body weight 68.04 kg Maikel Newton MD Work Phone: [facility] 09-07-2023 19:43-0400 Body temperature 98.4 [degF] Maury Barahona MD Work Phone: [facility] 09-07-2023 19:43-0400 Body weight 68.7 kg Maury Barahona MD Work Phone: [facility] 09-07-2023 19:43-0400 Diastolic blood pressure 72 mm[Hg] Maury Barahona MD Work Phone: [facility] 09-07-2023 19:43-0400 Heart rate 99 /min Maury Barahona MD Work Phone: [facility] 09-07-2023 19:43-0400 Respiratory rate 20 /min Maury Barahona MD Work Phone: [facility] 09-07-2023 19:43-0400 SaO2% (BldA) [Mass fraction] 100 % Maury Barahona MD Work Phone: [facility] 09-07-2023 19:43-0400 Systolic blood pressure 131 mm[Hg] Maury Barahona MD Work Phone: [facility] 09-06-2023 21:06-0400 Diastolic blood pressure 65 mm[Hg] Nguyen Gao MD Work Phone: [facility] [employer] 09-06-2023 21:06-0400 Heart rate 82 /min Nguyen Gao MD Work Phone: [facility] [employer] 09-06-2023 21:06-0400 Respiratory rate 18 /min Nguyen Gao MD Work Phone: [facility] [employer] 09-06-2023 21:06-0400 SaO2% (BldA) [Mass fraction] 100 % Nguyen Gao MD Work Phone: [facility] [employer] 09-06-2023 21:06-0400 Systolic blood pressure 124 mm[Hg] Nguyen Gao MD Work Phone: [facility] [employer] 09-06-2023 18:56-0400 Body temperature 99.1 [degF] Nguyen Gao MD Work Phone: [facility] [employer] 09-06-2023 15:11-0400 Body mass index (BMI) [Percentile] Per age and sex 70.04 % Nguyen Gao MD Work Phone: [facility] [employer] 09-06-2023 15:11-0400 Body mass index (BMI) [Ratio] 23.4 kg/m2 Nguyen Gao MD Work Phone: [facility] [employer] 09-06-2023 15:11-0400 Body weight 65.77 kg Nguyen Gao MD Work Phone: [facility] 08-13-2023 14:56-0500 Body height 167.6 cm Roland Catdoni LICENSED DISPENSING [employer]ICIAN.COOPERATIVE MANAGER Work Phone: [facility] 08-13-2023 14:56-0500 Body mass index (BMI) [Percentile] Per age and sex 78.55 % Roland Toro LICENSED [employer]PENSING [employer]ICIAN.COOPERATIVE MANAGER Work Phone: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 on above: pain Start: 12-13-2024 End: 12-13-2024 Office outpatient visit 15 minutes Breanne Joshi MD Work Phone: OB/Gynecology Comment on above: Abnormal menses (Barbara papi Dx) Start: 12-13-2024 End: 12-13-2024 ambulatory Brenane Joshi MD Work Phone: OB/Gynecology Comment on above: test Start: 11-23-2024 End: 11-23-2024 Patient encounter procedure Isabel De Santiago APRN.COOPERATIVE MANAGER Work Phone: [facility] Comment on above: Bacterial sinusitis (Primary Dx) Start: 11-23-2024 End: 12-05-2024 ambulatory Breanne Joshi MD Work Phone: OB/Gynecology Comment on above: periods Start: 11-17-2024 End: 11-24-2024 Follow-up encounter Kourtney Sherman MD Work Phone: Endocrinology Start: 11-16-2024 End: 11-16-2024 ambulatory [facility] Facility:[facility] Start: 11-15-2024 End: 11-15-2024 ambulatory [facility] Facility:[facility] Start: 11-15-2024 End: 11-15-2024 Patient encounter procedure Kourtney Sherman MD Work Phone: Endocrinology Comment on above: Type 1 diabetes mike itus without complication (HCC) (Primary Dx) Start: 11-12-2024 End: 11-14-2024 ambulatory Kourtney Sherman MD Work Phone: Endocrinology Comment on above: dexcom sensors yeast infection Start: 11-10-2024 End: 11-14-2024 Refill Kourtney Sherman MD Work Phone: Endocrinology Comment on above: Refill Request Start: 10-18-2024 End: 10-18-2024 Telephone encounter Kourtney Sherman MD Work Phone: Endocrinology & Metabolic [place] Comment on above: Resubmit Omnipod Kit s Start: 10-11-2024 End: 10-11-2024 Telephone encounter Kourtney Sherman MD Work Phone: Endocrinology & Metabolic [place] Comment on above: Pa Omnipod Kit Start: 10-06-2024 End: 10-07-2024 ambulatory Kourtney Sherman MD Work Phone: Endocrinology Comment on above: insulin pump Start: 10-04-2024 End: 10-04-2024 ambulatory Kourtney Sherman MD Work Phone: Endocrinology Comment on above: pain Start: 09-20-2024 End: 09-20-2024 ambulatory [facility] Facility:[facility] Start: 09-20-2024 End: 09-20-2024 Patient encounter procedure Melinda Oneill APRN.CNP Work Phone: [facility] Comment on above: Bacterial sinusitis (Primary Dx); Acute CORIE (middle ear effusion), bilateral Start: 09-17-2024 End: 09-17-2024 [facility] Facility:[facility] Start: 09-17-2024 End: 09-17-2024 Patient encounter procedure Ashely VALVERDE Work Phone: [facility] Comment on above: Sore throat (Primary Dx); URI, acute Start: 09-13-2024 End: 09-13-2024 ambulatory BREANNE JOSHI Facility:[facility] Start: 09-13-2024 End: 09-13-2024 Office outpatient visit 15 minutes Breanne Joshi MD Work Phone: OB/Gynecology Comment on above: Vaginal yeast infect ion (Primary Dx); Pelvic pain; Pre-existing type 1 diabetes mellitus in in first trimester; BV (bacterial vaginosis) Start: 09-10-2024 End: 09-12-2024 ambulatory Breanne Joshi MD Work Phone: OB/Gynecology Comment on above: bv meds Start: 09-10-2024 End: 09-10-2024 Patient encounter procedure Aniceto Strong APRN.COOPERATIVE MANAGER Work Phone: [facility] Comment on above: Adverse effect of dr jameson, initial encounter (Primary Dx) Start: 09-08-2024 End: 09-08-2024 ambulatory Kourtney Sherman MD Work Phone: Endocrinology Comment on above: new prescriptions Refill Request Start: 09-08-2024 End: 09-08-2024 Follow-up encounter Aniceto Strong APRN.COOPERATIVE MANAGER Work Phone: [facility] Start: 09-07-2024 End: 09-07-2024 ambulatory [facility] Facility:[facility] Start: 09-07-2024 End: 09-07-2024 Patient encounter procedure Aniceto Strong APRN.COOPERATIVE MANAGER Work Phone: [facility] Comment on above: Vaginal discharge (P rimary Dx); Screening for genitourinary condition; Vaginal pain Start: 09-06-2024 End: 09-08-2024 Refill Kourtney Sherman MD Work Phone: Endocrinology Comment on above: Refill Request Start: 08-05-2024 End: 08-05-2024 ambulatory Kourtney Sherman MD Work Phone: Endocrinology Comment on above: insulin Start: 07-19-2024 End: 07-19-2024 Telephone encounter Kourtney Sherman MD Work Phone: Endocrinology Comment on above: Prior Auth for Omnip ods Start: 07-18-2024 End: 07-18-2024 E-mail encounter from caregiver Kourtney Sherman MD Work Phone: Endocrinology Start: 07-18-2024 End: 07-18-2024 ambulatory Kourtney Sherman MD Work Phone: Endocrinology Comment on above: OmniPod Start: 07-18-2024 End: 07-18-2024 Patient encounter procedure Kourtney Sherman MD Work Phone: Endocrinology Comment on above: Type 1 diabetes mike itus without complication (HCC) (Primary Dx) Start: 07-04-2024 End: 07-05-2024 ambulatory Breanne Joshi MD Work Phone: OB/Gynecology Comment on above: yeast infection Start: 07-03-2024 End: 07-03-2024 Emergency department patient visit [facility] Facility:[facility] Start: 07-03-2024 End: 07-03-2024 ambulatory [facility] Facility:[facility] Start: 07-03-2024 End: 07-03-2024 Patient encounter procedure Aniceto Strong APRN.CNP Work Phone: [facility] Comment on above: Pain of upper abdome n (Primary Dx) Start: 06-24-2024 End: 06-24-2024 Emergency department patient visit Alvarez Woos Facility:[facility] Start: 06-24-2024 End: 06-24-2024 ambulatory [facility] Facility:[facility] Start: 06-24-2024 End: 06-24-2024 Patient encounter procedure Ashely VALVERDE Work Phone: [facility] Comment on above: Tachycardia (Primary Dx); Dizziness; Hyperglycemia Start: 06-12-2024 End: 06-13-2024 ambulatory Breanne Joshi MD Work Phone: OB/Gynecology Comment on above: control Start: 06-10-2024 End: 06-10-2024 ambulatory BREANNE JOSHI Facility:[facility] Start: 06-10-2024 End: 06-10-2024 Office outpatient visit 25 minutes Breanne Joshi MD Work Phone: OB/Gynecology Comment on above: Encounter for initia l prescription of contraceptive pills (Primary Dx); Vaginal yeast infection; Type 1 diabetes mellitus without complication (HCC) Start: 06-08-2024 End: 06-08-2024 Emergency department patient visit DR DIAN VELEZ MD Facility:[facility] Start: 05-12-2024 End: 05-12-2024 Emergency department patient visit VERONICA WOODS MD [facility] Start: 05-05-2024 End: 05-05-2024 ambulatory DIAN VELEZ Facility:[facility] Start: 05-05-2024 End: 05-05-2024 Office outpatient visit 15 minutes Jt Gómez MD Work Phone: [facility] Comment on above: Sore throat (Primary Dx) Start: 03-28-2024 End: 03-28-2024 ambulatory DIAN VELEZ [facility] Start: 03-07-2024 End: 03-07-2024 ambulatory [facility] Start: 03-05-2024 End: 03-05-2024 Emergency department patient visit Jd Barrios Facility:[facility] Start: 03-03-2024 End: 03-03-2024 Emergency department patient visit Anjelica Smith Facility:[facility] Start: 02-18-2024 End: 02-25-2024 Evaluation and management of inpatient Hugo Rodriguez MD Work Phone: [facility] Comment on above: S/P section (Primary Dx) Start: 02-18-2024 End: 02-18-2024 ambulatory [facility] Start: 02-15-2024 End: 02-15-2024 ambulatory IVAN SHARMA [facility] Start: 02-11-2024 End: 02-11-2024 ambulatory [facility] Start: 02-10-2024 End: 02-10-2024 Subsequent hospital visit by physician Calista Pham MD Work Phone: [facility] OB Triage H2 Start: 02-10-2024 End: 02-10-2024 Subsequent hospital visit by physician Jolene Estevez DO Work Phone: [facility] OB Triage H2 Start: 02-08-2024 End: 02-08-2024 ambulatory LEATHA ZACARIAS [facility] Start: 02-05-2024 ambulatory FLORES GILBERT Tank ty:[facility] Start: 02-01-2024 End: 02-01-2024 ambulatory FLORES GILBERT [facility] Start: 02-01-2024 End: 02-01-2024 ambulatory Dian Velez Facility:[facility] Start: 01-28-2024 End: 01-28-2024 ambulatory IVAN SHARMA [facility] Start: 01-25-2024 End: 01-25-2024 ambulatory [place] Hilda [facility] Start: 01-25-2024 End: 01-25-2024 ambulatory [facility] Start: 01-21-2024 End: 01-21-2024 ambulatory [facility] Start: 01-18-2024 End: 01-18-2024 ambulatory [facility] Start: 01-14-2024 End: 01-14-2024 Subsequent hospital visit by physician Jolene Estevez DO Work Phone: [facility] OB Triage H2 Start: 01-14-2024 End: 01-14-2024 ambulatory VIANEY MENA [facility] Start: 01-11-2024 End: 01-11-2024 ambulatory [facility] Start: 01-10-2024 End: 01-10-2024 Documentation procedure Hugo Rodriguez MD Work Phone: [employer] Start: 01-09-2024 End: 01-11-2024 Telephone encounter Josy Fung DO [facility] Comment on above: ERRONEOUS ENCOUNTER- -DISREGARD (Primary Dx) Start: 01-07-2024 End: 01-09-2024 Evaluation and management of inpatient Jolene Estevez DO Work Phone: [facility] Unit H2 Start: 01-07-2024 End: 01-07-2024 ambulatory [facility] Start: 01-04-2024 End: 01-04-2024 ambulatory [facility] Start: 01-02-2024 End: 01-02-2024 Subsequent hospital visit by physician Vianey Mean MD Work Phone: [facility] OB Triage H2 Start: 01-01-2024 End: 01-01-2024 ambulatory [facility] Start: 12-28-2023 End: 12-28-2023 ambulatory [facility] Start: 12-28-2023 End: 12-28-2023 ambulatory [facility] Start: 12-24-2023 End: 12-24-2023 ambulatory [facility] Start: 12-21-2023 End: 12-21-2023 Subsequent hospital visit by physician Calista Pham MD Work Phone: [facility] OB Triage H2 Start: 12-21-2023 End: 12-21-2023 [facility] Start: 12-17-2023 End: 12-17-2023 ambulatory [facility] Start: 12-09-2023 End: 12-09-2023 Emergency department patient visit Dian [place] Facility:[facility] Start: 12-05-2023 Telephone encounter Flores Gilbert LICENSED DISPENSING OPTICIAN - COOPERATIVE MANAGER Work Phone: [facility] Clinical Communication Comment on above: Test Scheduling Start: 11-30-2023 End: 11-30-2023 ambulatory [facility] Start: 11-12-2023 End: 11-12-2023 Subsequent hospital visit by physician Hugo Rodriguez MD Work Phone: [facility] Comment on above: Anemia, antepartum, unspecified trimester; Supervision of other high risk pregnancies, second trimester Start: 11-12-2023 End: 11-12-2023 ambulatory HUGO RODRIGUEZ [facility] Start: 11-12-2023 End: 11-12-2023 ambulatory [facility] Khurram [facility] Start: 11-10-2023 End: 11-10-2023 ambulatory SONNY BRIONES [facility] Start: 10-30-2023 End: 10-30-2023 Evaluation and management of inpatient Hugo Rodriguez MD Work Phone: [facility] Unit H2 Start: 10-30-2023 End: 10-30-2023 ambulatory [facility] Start: 10-26-2023 End: 10-26-2023 Subsequent hospital visit by physician Flores Gilbert APRN-COOPERATIVE MANAGER Work Phone: [facility] Comment on above: Pre-existing type 1 diabetes mellitus during in second trimester Start: 10-26-2023 End: 10-26-2023 ambulatory [facility] Start: 10-26-2023 End: 10-26-2023 ambulatory [facility] Start: 10-26-2023 End: 10-26-2023 ambulatory SAKINA GILLIS [facility] Start: 10-22-2023 Telephone encounter Kelsy kang PA-C Work Phone: [facility] Comment on above: Results Start: 10-20-2023 End: 10-20-2023 ambulatory [facility] Start: 10-20-2023 End: 10-20-2023 Patient encounter procedure Kelsy Tee PA-C Work Phone: [facility] Comment on above: Acute UTI (Primary D x) Start: 10-20-2023 End: 10-20-2023 ambulatory VIANEY MENA [facility] Start: 10-13-2023 End: 10-13-2023 ambulatory [facility] Start: 10-07-2023 End: 01-06-2024 Transcribe Orders Flores Gilbert LICENSED DISPENSING OPTICIAN - COOPERATIVE MANAGER Work Phone: [facility] Comment on above: SOB (shortness of br eath) (Primary Dx); Tachycardia Start: 09-28-2023 End: 09-28-2023 ambulatory [facility] Start: 09-21-2023 Telephone encounter Swapna Cardenas MD Work Phone: OB/Gynecology Comment on above: Orders Start: 09-21-2023 End: 09-22-2023 ambulatory CAMPOS BECKWITH [facility] Start: 09-21-2023 End: 09-22-2023 Emergency department patient visit Javier Sandra MD Work Phone: [facility] Medical Observation Start: 09-17-2023 ambulatory Nesha bassett RN Work Phone: [facility] Comment on above: Enrollment Start: 09-15-2023 Patient encounter procedure Marjorie Ashee Work Phone: [facility] Start: 09-14-2023 End: 09-14-2023 ambulatory TERENCE Jada [facility] Start: 09-07-2023 End: 09-07-2023 Emergency department patient visit Maury Barahona MD Work Phone: [facility] Start: 09-06-2023 End: 09-06-2023 Emergency department patient visit Nguyen Gao MD Work Phone: [facility] EMERGENCY DEPT Start: 09-01-2023 End: 09-01-2023 ambulatory [facility] Start: 08-31-2023 End: 08-31-2023 ambulatory [facility] Start: 08-26-2023 End: 08-26-2023 ambulatory DIAN VELEZ [facility] Start: 08-20-2023 End: 08-20-2023 ambulatory VIANEY MENA [facility] Start: 08-17-2023 End: 08-17-2023 Orders Only Roland Toro APRN.CNP Work Phone: OB/Gynecology Comment on above: Pre-existing type 1 diabetes mellitus in in first trimester (Primary Dx) Start: 08-15-2023 Orders Only Roland COX RN.COOPERATIVE MANAGER Work Phone: OB/Gynecology Start: 08-14-2023 Telephone encounter [facility] Comment on above: PRAF Start: 08-13-2023 End: 08-13-2023 Patient encounter procedure Roland Toro APRN.COOPERATIVE MANAGER Work Phone: OB/Gynecology Comment on above: Encounter for superv ision of high risk in first trimester, antepartum (Primary Dx); 9 weeks gestation of ; Pre-existing type 1 diabetes mellitus in in first trimester; Nausea and vomiting during ; Constipation during in first trimester; Right lower quadrant abdominal pain; Heart palpitations; Shortness of breath; Heartburn during in first trimester; Family history of Down syndrome; Asymptomatic bacteriuria during ; Vaginal discharge during in first trimester; Subchorionic hematoma in first trimester, single or unspecified fetus; Kidney stone complicating , first trimester Start: 08-09-2023 End: 08-09-2023 Evaluation and management of inpatient Kelsey Christine MD Work Phone: [facility] Unit H2 Start: 08-08-2023 End: 08-08-2023 Emergency department patient visit [facility] Start: 08-02-2023 End: 08-02-2023 Emergency department patient visit [facility] Start: 07-20-2023 End: 07-20-2023 Emergency department patient visit [facility] Start: 07-14-2023 End: 07-14-2023 Emergency department patient visit [facility] Start: 07-08-2023 End: 07-08-2023 ambulatory [facility] Start: 06-24-2023 End: 06-24-2023 ambulatory [facility] Start: 06-18-2023 End: 06-18-2023 ambulatory CRIS Hilda [facility] Start: 06-15-2023 End: 06-15-2023 Emergency department patient visit DR DIAN VELEZ MD Facility:B Start: 06-15-2023 End: 06-15-2023 Emergency department patient visit BARRY SOLIS MD [facility] Start: 06-14-2023 End: 06-14-2023 Patient encounter procedure Kelsy Tee PA-C Work Phone: [facility] Comment on above: Viral illness (Prima ry Dx) Start: 06-07-2023 End: 06-07-2023 Emergency department patient visit NO ASSIGNED PCP GENERIC PROVIDER [facility] Start: 06-01-2023 End: 06-01-2023 Emergency department patient visit Maury Barahona MD Work Phone: [facility] Comment on above: Hyperglycemia (Prima ry Dx); Idiopathic urticaria Start: 05-31-2023 End: 05-31-2023 Emergency department patient visit [facility] Work Phone: Start: 05-30-2023 End: 05-31-2023 Emergency department patient visit [facility] Work Phone: Start: 05-28-2023 End: 05-28-2023 ambulatory [facility] Start: 05-28-2023 End: 05-28-2023 Subsequent hospital visit by physician Sakina SALINAS Work Phone: [facility] Comment on above: Type 1 diabetes mike itus without complication; Easy bruising Start: 05-28-2023 End: 05-28-2023 [facility] Start: 04-24-2023 End: 04-24-2023 ambulatory [facility] Start: 04-20-2023 End: 04-22-2023 Emergency department patient visit Roland Dixon MD Work Phone: [facility] Comment on above: Diabetes mellitus, n ew onset (Primary Dx); Hyperglycemia Start: 04-20-2023 End: 04-22-2023 Evaluation and management of inpatient [facility] Start: 04-20-2023 End: 04-20-2023 ambulatory [facility] Start: 04-15-2023 Telephone encounter Melinda Quesada APRN.COOPERATIVE MANAGER Work Phone: [facility] Comment on above: Results Opened In Error Start: 04-15-2023 End: 04-15-2023 [facility] Work [facility]: Start: 04-15-2023 End: 04-15-2023 Patient encounter procedure Melinda Oneill LICENSED DISPENSING OPTICIAN.COOPERATIVE MANAGER Work Phone: [facility] Comment on above: Urinary frequency (P rimary Dx); Nausea and vomiting, unspecified vomiting type Start: 03-27-2023 End: 03-27-2023 Subsequent hospital visit by physician Brian Wilkinson MD Work Phone: Sports Medicine Comment on above: Kidney stones Start: 03-24-2023 End: 03-25-2023 [facility] Work [facility]: Start: 02-28-2023 End: 02-28-2023 [facility] Work Phone: Start: 02-16-2023 Refill Swapna olivo MD Work Phone: OB/Gynecology Comment on above: Refill Request Start: 01-21-2023 End: 01-21-2023 [facility] Work [facility]: Start: 10-25-2022 End: 10-25-2022 [facility] Start: 10-21-2022 Telephone encounter Kelsy kang PA-C Work Phone: [facility] Comment on above: Results Start: 10-20-2022 End: 10-20-2022 Patient encounter procedure Neha Cisneros APRN.COOPERATIVE MANAGER Work Phone: [facility] Comment on above: Dysuria (Primary Dx) ; Abnormal menses; Acute right flank pain Start: 09-11-2022 End: 09-11-2022 Patient encounter procedure Dave Strong MD Work Phone: OB/Gynecology Comment on above: Vulvar dermatitis (P rimary Dx); Vaginal irritation; Dysuria Start: 08-18-2022 End: 08-20-2022 Evaluation and management of inpatient [facility] Start: 08-18-2022 End: 08-20-2022 observation encounter [facility] Work Phone: Start: 08-05-2022 Telephone encounter Kelsy kang PA-C Work Phone: [facility] Comment on above: Results Start: 08-04-2022 End: 08-04-2022 Patient encounter procedure Melinda Oneill APRN.COOPERATIVE MANAGER Work Phone: [facility] Comment on above: Low back pain withou t sciatica, unspecified back pain laterality, unspecified chronicity (Primary Dx); Sore throat; Acute cystitis with hematuria; Feared condition not demonstrated; Flu-like symptoms Start: 07-30-2022 End: 07-30-2022 Patient encounter procedure Melinda Oneill APRN.COOPERATIVE MANAGER Work Phone: [facility] Comment on above: Urinary frequency (P rimary Dx); Glucosuria; Tension headache Start: 06-09-2022 End: 06-09-2022 Emergency department patient visit NEHAOMERO TAVERAS [facility] Start: 06-09-2022 End: 06-09-2022 Emergency department patient visit Neha Taveras MD Work Phone: [facility] Comment on above: Stress reaction (Barbara papi Dx); Tachycardia; Urinary tract infection with hematuria, site unspecified Start: 06-09-2022 End: 06-09-2022 Patient encounter procedure Aniceto Strong APRN.COOPERATIVE MANAGER Work Phone: [facility] Comment on above: Acute low back pain without sciatica, unspecified back pain laterality (Primary Dx); Tachycardia Start: 06-02-2022 End: 06-02-2022 Emergency department patient visit [facility] Start: 05-30-2022 End: 05-30-2022 Emergency department patient visit [facility] Start: 05-28-2022 End: 05-28-2022 Patient encounter procedure Freddy Dorado LICENSED DISPENSING OPTICIAN.COOPERATIVE MANAGER Work Phone: [facility] Comment on above: Sore throat (Primary Dx); Viral illness Start: 05-15-2022 Telephone encounter Aniceto Strong LICENSED DISPENSING OPTICIAN.COOPERATIVE MANAGER Work Phone: [facility] Comment on above: Results Start: 05-06-2022 Telephone encounter Freddy ibarra LICENSED DISPENSING OPTICIAN.COOPERATIVE MANAGER Work Phone: [facility] Comment on above: Results Start: 05-05-2022 End: 05-05-2022 Patient encounter procedure Neha Cisneros LICENSED DISPENSING OPTICIAN.COOPERATIVE MANAGER Work Phone: [facility] Comment on above: Dysuria (Primary Dx) Start: 04-15-2022 Telephone encounter Song Garcia gerhard Work Phone: Podiatry Comment on above: Patient Question Start: 04-10-2022 End: 04-10-2022 Patient encounter procedure Michael Moon MD Work Phone: [facility] Comment on above: Sprain of ligament o f right ankle, initial encounter (Primary Dx) Start: 04-08-2022 End: 04-08-2022 Subsequent hospital visit by physician [facility] Work Phone: Radiology Comment on above: Injury of right ankl e, initial encounter [S99.911A] Start: 04-08-2022 End: 04-08-2022 Patient encounter procedure Isabel De Santiago APRN.COOPERATIVE MANAGER Work Phone: [facility] Comment on above: Closed nondisplaced avulsion fracture of right talus, initial encounter (Primary Dx); Injury of right ankle, initial encounter Start: 01-03-2022 End: 01-03-2022 Patient encounter procedure Swapna Cardenas MD Work Phone: OB/Gynecology Comment on above: Dysuria (Primary Dx) ; Vaginal discharge; Screen for sexually transmitted diseases Start: 12-24-2021 Telephone encounter Kelsy kang PA-C Work Phone: [facility] Comment on above: Results Procedures Date Procedure Procedure Detail Performing Clinician Start: 04-27-2025 Us uterus 1 4 wk transabdl 06/29 gestat Ashlyn R Elviac LICENSED DISPENSING OPTICIAN - COOPERATIVE MANAGER Work Phone: Start: 04-27-2025 Bacterial vaginosis and vaginitis rRNA panel - Vaginal fluid by Probe Ashlynvasyl Guerrasic LICENSED DISPENSING OPTICIAN - COOPERATIVE MANAGER Work Phone: Start: 04-27-2025 Gonadotropin chorion ic quantitative Ashlyn R Kusic LICENSED DISPENSING OPTICIAN - COOPERATIVE MANAGER Work Phone: Start: 04-27-2025 Iadna chlamydia trac homatis amplified probe tq Ashlyn Sprign Kusic LICENSED DISPENSING OPTICIAN - COOPERATIVE MANAGER Work Phone: Start: 04-14-2025 Gonadotropin chorion ic quantitative Ashlyn R Charliesic LICENSED DISPENSING OPTICIAN - COOPERATIVE MANAGER Work Phone: Start: 03-31-2025 Comprehensive metabo lic panel Ashlyn R Charliesic LICENSED DISPENSING OPTICIAN - COOPERATIVE MANAGER Work Phone: Start: 03-31-2025 End: 03-31-2025 Urine test visual color cmprsn meths Ashlyn R Kusic LICENSED DISPENSING OPTICIAN - COOPERATIVE MANAGER Work Phone: Start: 02-21-2025 Us pelvic nonobstetr ic real-time image complete Breanne Joshi MD Work Phone: Start: 02-14-2025 Hemoglobin A1c/Hemoglobin.total in Blood Kourtney Sherman MD Work Phone: Start: 02-08-2025 UA DIP,URINE HCG (POC) Roland Toro LICENSED DISPENSING OPTICIAN.COOPERATIVE MANAGER Work Phone: Start: 12-13-2024 UA DIP,URINE HCG (POC) Breanne Joshi MD Work Phone: Start: 11-16-2024 Thyrotropin [Units/v olume] in Serum or Plasma Peggy Rosas RN Start: 11-15-2024 Hemoglobin A1c/Hemoglobin.total in Blood Kourtney Sherman MD Work Phone: Start: 11-15-2024 GLOOKO ON [employer] [facility] Pr ovider Start: 09-17-2024 STREP A MOLECULAR (POC) Jomarlyn RiceAlan LICENSED DISPENSING OPTICIAN.COOPERATIVE MANAGER Work Phone: Start: 09-07-2024 Urnls dip stick/tabl et rgnt auto w/o microscopy Aniceto Strong LICENSED DISPENSING OPTICIAN.COOPERATIVE MANAGER Work Phone: Start: 05-05-2024 STREP A MOLECULAR (POC) Aniceto Strong LICENSED DISPENSING OPTICIAN.COOPERATIVE MANAGER Work Phone: Start: 02-24-2024 Glucose post glucose dose Calista Pham MD Work Phone: Start: 02-23-2024 Comprehensive metabo lic panel Calista Pham MD Work Phone: Start: 02-22-2024 Glucose post glucose dose Celine Leon MD Work Phone: Start: 02-22-2024 Glucose quantitative blood xcpt reagent strip Hugo Rodriguez MD Work Phone: Start: 02-22-2024 Comprehensive metabo lic panel Emy Watkins MD Work Phone: Start: 02-22-2024 End: 02-22-2024 Blood count complete automated Emy Watkins MD Work Phone: Start: 02-22-2024 End: 02-22-2024 Comprehensive metabolic panel Nina Renee DO Work Phone: Start: 02-21-2024 End: 02-21-2024 section Pham Odonnell DO Work Phone: Start: 02-21-2024 End: 02-21-2024 Blood count complete automated Nina Renee DO Work Phone: Start: 02-21-2024 End: 02-21-2024 Comprehensive metabolic panel Nina Renee DO Work Phone: Start: 02-21-2024 OXYGEN THERAPY Nina Renee DO Work Phone: Start: 02-21-2024 Glucose quantitative blood xcpt reagent strip Hugo Rodriguez MD Work Phone: Start: 02-21-2024 Glucose quantitative blood xcpt reagent strip Hugo Rodriguez MD Work Phone: Start: 02-21-2024 End: 02-21-2024 Glucose quantitative blood xcpt reagent strip Hugo Rodriguez MD Work Phone: Start: 02-20-2024 Ecg routine ecg w/le ast 12 lds trcg only w/o i&r Damairs Schlieper DO Work Phone: Start: 02-20-2024 Glucose quantitative blood xcpt reagent strip Hugo Rodriguez MD Work Phone: Start: 02-20-2024 Glucose quantitative blood xcpt reagent strip Hugo Rodriguez MD Work Phone: Start: 02-20-2024 Glucose quantitative blood xcpt reagent strip Hugo Rodriguez MD Work Phone: Start: 02-20-2024 Glucose quantitative blood xcpt reagent strip Hugo Rodriguez MD Work Phone: Start: 02-19-2024 Glucose quantitative blood xcpt reagent strip Hugo Rodriguez MD Work Phone: Start: 02-19-2024 Glucose quantitative blood xcpt reagent strip Hugo Rodriguez MD Work Phone: Start: 02-19-2024 End: 02-19-2024 Glucose quantitative blood xcpt reagent strip Hugo Rodriguez MD Work Phone: Start: 02-19-2024 Iadna chlamydia trac homatis amplified probe tq Dahlia Bullard DO Work Phone: Start: 02-19-2024 Comprehensive metabo lic panel Francia Gemma DO Work Phone: Start: 02-19-2024 Glucose quantitative blood xcpt reagent strip Hugo Rodriguez MD Work Phone: Start: 02-19-2024 Glucose quantitative blood xcpt reagent strip Hugo Rodriguez MD Work Phone: Start: 02-19-2024 Comprehensive metabo lic panel Dahlia Bullard DO Work Phone: Start: 02-18-2024 Glucose quantitative blood xcpt reagent strip Hugo Rodriguez MD Work Phone: Start: 02-18-2024 Blood typing serolog ic rh (d) Dahlia Bullard DO Work Phone: Start: 02-18-2024 Glucose quantitative blood xcpt reagent strip Hugo Rodriguez MD Work Phone: Start: 02-18-2024 Ecg routine ecg w/le ast 12 lds trcg only w/o i&r Lilliana Mendoza MD Work Phone: Start: 02-18-2024 End: 02-18-2024 Comprehensive metabolic panel Dahlia Bullard DO Work Phone: Start: 02-18-2024 Adult depression scr eening assessment Hugo Rodriguez MD Work Phone: Start: 02-10-2024 Blood typing serologic abo Opal Win DO Work Phone: Start: 02-10-2024 End: 02-10-2024 Comprehensive metabolic panel Opal Win DO Work Phone: Start: 01-14-2024 Glucose quantitative blood xcpt reagent strip Jolene Estevez DO Work Phone: Start: 01-09-2024 Glucose quantitative blood xcpt reagent strip Jolene Estevez DO Work Phone: Start: 01-09-2024 End: 01-09-2024 Glucose quantitative blood xcpt reagent strip Jolene T Estevez DO Work Phone: Start: 01-09-2024 POCT GLUCOSE METER UNSOLICITED RESULTS Jolene Wolffh DO Work Phone: Start: 01-08-2024 Glucose quantitative blood xcpt reagent strip Jolene T Estevez DO Work Phone: Start: 01-08-2024 End: 01-08-2024 Glucose quantitative blood xcpt reagent strip Jolene Estevez DO Work Phone: Start: 01-08-2024 Us preg uterus real time f/u trnsabdl per fetus Beatriz Lindquist DO Work Phone: Start: 01-08-2024 Glucose quantitative blood xcpt reagent strip Jolene Estevez DO Work Phone: Start: 01-07-2024 End: 01-07-2024 Comprehensive metabolic panel Beatriz Chris DO Work Phone: Start: 01-07-2024 Iadna chlamydia trac homatis amplified probe tq Beatriz Chris DO Work Phone: Start: 01-07-2024 Blood typing serologic abo [facility] Work Phone: Start: 01-07-2024 Glucose quantitative blood xcpt reagent strip Jolene Estevez DO Work Phone: Start: 01-07-2024 Adult depression scr eening assessment raul Wolffh DO Work Phone: Start: 01-02-2024 End: 01-02-2024 Comprehensive metabolic panel Dahlia Bullard DO Work Phone: Start: 11-12-2023 Cyanocobalamin vitamin b-12 Hugo Rodriguez MD Work Phone: Start: 11-12-2023 Hepatitis b surf ant ibody hbsab Ivan Sharma DO Work Phone: Start: 10-30-2023 Glucose quantitative blood xcpt reagent strip Hugo Rodriguez MD Work Phone: Start: 10-30-2023 Glucose quantitative blood xcpt reagent strip Hugo Rodriguez MD Work Phone: Start: 10-30-2023 Bacterial vaginosis and vaginitis rRNA panel - Vaginal fluid by Probe Oscar Wells DO Work Phone: Start: 10-30-2023 Iadna chlamydia trac homatis amplified probe tq Oscar Wells DO Work Phone: Start: 10-30-2023 Blood typing serologic abo Oscar Wells DO Work Phone: Start: 10-30-2023 End: 10-30-2023 Comprehensive metabolic panel Oscar Wells DO Work Phone: Start: 10-30-2023 Adult depression scr eening assessment Hugo Rodriguez MD Work Phone: Start: 10-30-2023 Thyrotropin [Units/v olume] in Serum or Plasma Hugo Rodriguez MD Work Phone: Start: 10-26-2023 Hemoglobin glycosylated a1c Flores Vladimir LICENSED DISPENSING OPTICIAN-COOPERATIVE MANAGER Work Phone: Start: 10-20-2023 Urnls dip stick/tabl et rgnt auto w/o microscopy Kelsy Tee PA-C Work Phone: Start: 09-22-2023 Electrocardiogram Dany Sandra MD Work Phone: Start: 09-22-2023 Glucose measurement [facility] Work Phone: Start: 09-22-2023 Basic metabolic pane l calcium total Campos Trinidad MD Work Phone: Start: 09-22-2023 Glucose measurement [facility] Work Phone: Start: 09-22-2023 Glucose measurement [facility] Work Phone: Start: 09-21-2023 Glucose measurement [facility] Work Phone: Start: 09-21-2023 Drug tst prsmv instr mnt chem analyzers pr date Javier Sandra MD Work Phone: Start: 09-21-2023 Urnls dip stick/tabl et reagent auto microscopy Javier Sandra MD Work Phone: Start: 09-21-2023 Influenza virus A an d B RNA and SARS-CoV-2 (COVID-19) N gene panel - Respiratory specimen by FIORELLA with probe detection Javier Sandra MD Work Phone: Start: 09-21-2023 OBTAIN VENOUS BLOOD GASES AND PERFORM Javier Sandra MD Work Phone: Start: 09-21-2023 Gases blood ph direc t nica xcpt pulse oximitry Javier Sandra MD Work Phone: Start: 09-21-2023 Ecg routine ecg w/le ast 12 lds w/i&r Javier Sandra MD Work Phone: Start: 09-21-2023 Comprehensive metabo lic panel Javier Sandra MD Work Phone: Start: 09-21-2023 RUVALCABA TOP Javier Sandra MD Work Phone: Start: 09-21-2023 Hepatic function panel Javier Sandra MD Work Phone: Start: 09-21-2023 LAVENDER TOP Javier Sandra MD Work Phone: Start: 09-21-2023 LIGHT BLUE TOP Javier Sandra MD Work Phone: Start: 09-21-2023 MINT GREEN TOP Javier Sandra MD Work Phone: Start: 09-21-2023 RAINBOW DRAW Javier Sandra MD Work Phone: Start: 09-21-[address] [facility] Start: 09-06-2023 End: 09-06-2023 Assay of troponin quantitative Zina Martinez LICENSED DISPENSING OPTICIAN - COOPERATIVE MANAGER Work Phone: Start: 09-06-2023 Ct angiography chest w/contrast/noncontrast Jaiden Carpenter DO Work Phone: Start: 09-06-2023 Comprehensive metabo lic panel Zina Martinez LICENSED DISPENSING OPTICIAN - COOPERATIVE MANAGER Work Phone: Start: 09-06-2023 SARS-COV-2, FLU A/B, AND RSV COMBO Zina Martinez LICENSED DISPENSING OPTICIAN - COOPERATIVE MANAGER Work Phone: Start: 09-06-2023 Urinalysis complete panel - Urine Zina Martinez LICENSED DISPENSING OPTICIAN - [facility] Work Phone: Start: 09-06-2023 Urnls dip stick/tabl et reagent auto microscopy Zina Martinez LICENSED DISPENSING OPTICIAN - COOPERATIVE MANAGER Work Phone: Start: 09-06-2023 Ecg routine ecg w/le ast 12 lds trcg only w/o i&r Nguyen Gao MD Work Phone: Start: 09-01-2023 Thyrotropin [Units/v olume] in Serum or Plasma Nguyen Gao MD Work Phone: Start: 08-13-2023 Adult depression scr eening assessment Jt Gómez MD Work Phone: Start: 08-09-2023 ABO and Rh group [Ty pe] in Blood by Confirmatory method Francia [employer] Work Phone: Start: 08-09-2023 Blood typing serologic abo Francia [employer] DO Work Phone: Start: 08-09-2023 End: 08-09-2023 Comprehensive metabolic panel FranciaUZwan Work Phone: Start: 08-09-2023 Thyrotropin [Units/v olume] in Serum or Plasma Kelsey Christine MD Work Phone: Start: 06-07-2023 BLOOD GAS VENOUS FULL PANEL NO GENERIC PROVIDER Start: 06-07-2023 CBC W Auto Different ial panel - Blood NO GENERIC PROVIDER Start: 06-07-2023 Comprehensive metabo lic 2000 panel - Serum or Plasma NO GENERIC PROVIDER Start: 06-01-2023 Blood gases any comb ination ph pco2 po2 co2 hco3 Maury Barahona MD Work Phone: Start: 06-01-2023 End: 06-01-2023 Creatinine blood Maury Barahona MD Work Phone: Comment on above: Order Comment: Relea se to patient->[id number]&Urine Performed By: #### U ACOM ####[facility] [address] [id number] Start: 06-01-2023 GFR/1.73 sq M.predic sarbjit among non-blacks MDRD (S/P/Bld) [Vol rate/Area] Maury Barahona MD Work Phone: Start: 06-01-2023 URINALYSIS, AUTOMATED-[place] Maury Barahona MD Work Phone: Start: 06-01-2023 Urine test visual color cmprsn meths Maury Barahona MD Work Phone: Start: 06-01-2023 Urnls dip stick/tabl et reagent auto microscopy Maury Barahona MD Work Phone: Start: 05-28-2023 End: 05-28-2023 Assay of free thyroxine Sakina Gillis AP RN-COOPERATIVE MANAGER Work Phone: Start: 05-28-2023 Urine test visual color cmprsn meths Sakina Gillis LICENSED DISPENSING OPTICIAN-COOPERATIVE MANAGER Work Phone: Start: 04-22-2023 Glucose blood reagent strip Darian Atkinson MD Work Phone: Start: 04-22-2023 Glucose blood reagent strip Darian Atkinson MD Work Phone: Start: 04-21-2023 Glucose blood reagent strip Darian Atkinson MD Work Phone: Start: 04-21-2023 Glucose blood reagent strip Darian Atkinson MD Work Phone: Start: 04-21-2023 Glucose blood reagent strip Darian Atkinson MD Work Phone: Start: 04-21-2023 Glucose blood reagent strip Darian Atkinson MD Work Phone: Start: 04-21-2023 End: 04-21-2023 Ketone bodies serum qualitative Darian Atkinson MD Work Phone: Start: 04-21-2023 Glucose blood reagent strip Darian Atkinson MD Work Phone: Start: 04-21-2023 Glucose blood reagent strip Darian Atkinson MD Work Phone: Start: 04-20-2023 End: 04-20-2023 Ketone bodies serum qualitative Darian Atkinson MD Work Phone: Start: 04-20-2023 Glucose blood reagent strip Darian Atkinson MD Work Phone: Start: 04-20-2023 End: 04-20-2023 Glucose blood reagent strip Roland gordon MD Work Phone: Comment on above: Order Comment: Relea se to patient->[id number]&UrineReason for preventing automatic release->OtherRelease to patient->Manual release [id number]&Urine Performed By: #### U ACOM ####[facility] [place] [address] [phone] Start: 04-20-2023 Blood gases any comb ination ph pco2 po2 co2 hco3 Roland Dixon MD Work Phone: Start: 04-20-2023 End: 04-20-2023 Creatinine blood Roland Dixon MD Work Phone: Start: 04-20-2023 GFR/1.73 sq M.predic sarbjit among non-blacks MDRD (S/P/Bld) [Vol rate/Area] Roland Dixon MD Work Phone: Start: 04-20-2023 URINALYSIS, AUTOMATED-[place] Roland Dixon MD Work Phone: Start: 04-20-2023 Urine test visual color cmprsn meths Roland Dixon MD Work Phone: Start: 04-20-2023 Urnls dip stick/tabl et reagent auto microscopy Roland Dixon MD Work Phone: Start: 04-15-2023 Urine test visual color cmprsn meths Melinda Oneill LICENSED DISPENSING OPTICIAN.COOPERATIVE MANAGER Work Phone: Start: 04-15-2023 Urnls dip stick/tabl et rgnt auto w/o microscopy Kelsy Tee PA-C Work Phone: Start: 03-27-2023 Radiologic exam abdo men 1 view Brian Wilkinson MD Work Phone: Start: 03-24-2023 Urine culture Start: 02-28-2023 CT of abdomen and pe lvis without contrast Start: 01-21-2023 Plain chest X-ray Start: 10-25-2022 Plain X-ray of shoulder Start: 10-20-2022 Iadna chlamydia trac homatis amplified probe tq Neha Blayne LICENSED DISPENSING OPTICIAN.COOPERATIVE MANAGER Work Phone: Start: 10-20-2022 End: 10-20-2022 Urnls dip stick/tablet rgnt auto w/o microscopy Melinda Oneill LICENSED DISPENSING OPTICIAN.COOPERATIVE MANAGER Work Phone: Start: 09-11-2022 Urnls dip stick/tabl et rgnt auto w/o microscopy Dave Strong MD Work Phone: Start: 08-20-2022 Extracorporeal shock wave lithotripsy Start: 08-19-2022 Fluoroscopic guidance Start: 08-19-2022 Insertion of stent i nto ureter Start: 08-18-2022 CT of abdomen and pe lvis without contrast Start: 08-04-2022 Urnls dip stick/tabl et rgnt auto w/o microscopy Melinda Oneill LICENSED DISPENSING OPTICIAN.COOPERATIVE MANAGER Work Phone: Start: 08-04-2022 STREP A MOLECULAR (POC) Melinda Oneill APRN.COOPERATIVE MANAGER Work Phone: Start: 07-30-2022 Urnls dip stick/tabl et rgnt auto w/o microscopy Kelsy Tee PA-C Work Phone: Start: 06-09-2022 Blood count hemoglobin NEHA NITIN Comment on above: Order Comment: Relea se to patient->[id number]&Urine Performed By: #### I DFLU #### [place] [address] Start: 06-09-2022 Drug tst prsmv instr mnt chem analyzers pr date Neha Taveras MD Work Phone: Start: 06-09-2022 URINALYSIS, AUTOMATED-[place] Neha Taveras MD Work Phone: Start: 06-09-2022 Urnls dip stick/tabl et reagent auto microscopy Neha Taveras MD Work Phone: Start: 06-09-2022 Iadna respiratry pro be & rev trnscr 06-22 target Seferino Travis MD Work Phone: Start: 06-09-2022 Radiologic exam ches t single view Seferino Travis MD Work Phone: Start: 06-09-2022 Heterophile antibodi es screen Neha Taveras MD Work Phone: Start: 06-09-2022 COMPLETE BLOOD COUNT WITH DIFFERENTIAL Seferino Travis MD Work Phone: Start: 06-09-2022 Comprehensive metabo lic panel Seferino Travis MD Work Phone: Start: 06-09-2022 GFR/1.73 sq M.predic sarbjit among non-blacks MDRD (S/P/Bld) [Vol rate/Area] Seferino rTavis MD Work Phone: Start: 06-09-2022 Manual Differential panel - Blood Seferino Travis MD Work Phone: Start: 05-30-2022 Computed tomography of abdomen and pelvis with intravenous contrast Start: 05-28-2022 STREP A MOLECULAR (POC) Kelsy Tee PA-C Work Phone: Start: 05-05-2022 Urnls dip stick/tabl et rgnt auto w/o microscopy Neha Cisneros LICENSED DISPENSING OPTICIAN.COOPERATIVE MANAGER Work Phone: Start: 04-08-2022 Radex ankle complete minimum 3 views Isabel De Santiago LICENSED DISPENSING OPTICIAN.COOPERATIVE MANAGER Work Phone: Start: 01-03-2022 Urnls dip stick/tabl et rgnt auto w/o microscopy Swapna Cardenas MD Work Phone: Bacteria identificat ion test Bacteria identified in Blood by Culture section VERONICA AGUDELO MD H/O: section S/P parker an section Hugo Rodriguez MD Work Phone: Kidney stone (disorder) VERONICA WOODS MD Urine culture Plan of Treatment Date Care Activity Detail Author Start: 12-16-2079 RSV Immunization for Adults (1 - 1-dose 75+ series) RSV Immunization for Adults (1 - 1-dose 75+ series) [facility] Start: 2064 RSV Immunization aged 60 or older (1 - 1-dose 60+ series) RSV Immunization aged 60 or older (1 - 1-dose 60+ series) [facility] Start: 2054 Zoster Vaccines (1 of 2) Zoster Vaccines (1 of 2) [facility] Start: 01-30-2027 DTaP/Tdap/Td Vaccines (7 - Td or Tdap) DTaP/Tdap/Td Vaccines (7 - Td or Tdap) [facility] Start: 01-30-2027 Tetanus Diphtheria and Pertussis Vaccines (7 - Td or Tdap) Tetanus Diphtheria and Pertussis Vaccines (7 - Td or Tdap) [facility] Start: 01-30-2027 Urine microalbumin profile [facility] Start: 04-27-2026 Screening for Chlamydia trachomatis Chlamydia and Gonorrhea Screening [facility] Start: 03-31-2026 Diabetes: Estimated Glomerular Filtration Rate for Kidney Health Diabetes: Estimated Glomerular Filtration Rate for Kidney Health [facility] Start: 02-14-2026 Hemoglobin A1c measurement Diabetes: Hemoglobin A1C [facility] Start: 11-16-2025 Diabetes: Estimated Glomerular Filtration Rate for Kidney [facility] Diabetes: Estimated Glomerular Filtration Rate for Kidney Health [facility] Start: 11-16-2025 Diabetes: Urine Albumin-Creatinine Ratio for Kidney Health Diabetes: Urine Albumin-Creatinine Ratio for Kidney Health [facility] Start: 11-16-2025 Hepatitis B screening Urine Albumin:Creatinine Ratio [facility] Start: 11-16-2025 Hepatitis B surface antibody level LDL Cholesterol [facility] Start: 11-16-2025 Thyroid stimulating hormone measurement TSH Level [facility] Start: 09-07-2025 GC (Gonorrhea) Screening (18-24) GC (Gonorrhea) Screening (18-24) [facility] Start: 09-07-2025 Screening for Chlamydia trachomatis Chlamydia Screening (18) [facility] Start: 05-17-2025 Hemoglobin A1c measurement HbA1C [facility] Start: 04-27-2025 End: 04-27-2025 Patient encounter procedure 04/27/2025 8:00 AM EDT Office Visit [facility] [address] [place] [phone] Ashlyn Abraham, LICENSED DISPENSING OPTICIAN - COOPERATIVE MANAGER [address] [place], [place] [phone] [facility] Start: 04-12-2025 End: 04-12-2026 hCG, quantitative hCG, quantitative Lab Routine Irregular menses Expected: 04/12/2025 (Approximate), Expires: 04/12/2026 [facility] Work Phone: Comment on above: Expected: 04/12/2025 (Approximate), Expi res: 04/12/2026 Start: 04-11-2025 End: 04-11-2025 Patient encounter procedure 04/11/2025 9:40 AM EDT Office Visit Endocrinology [address] [place] [id number] Kourtney Sherman MD [address] [place] [address] 1 MO OV-DM Endocrinology Comment on above: 1 MO OV-DM Start: 03-31-2025 End: 03-31-2025 Patient encounter procedure 03/31/2025 2:15 PM EDT Office Visit [facility] [address] [place] [phone] Ashlyn Abraham, LICENSED DISPENSING OPTICIAN - COOPERATIVE MANAGER [address] [place], [place] [phone] [facility] Start: 03-17-2025 End: 03-17-2025 Patient encounter procedure 03/17/2025 10:40 AM EDT Office Visit Endocrinology [address] [place], [place] [address] Kourtney Sherman MD [address] [place] [address] 1 MO OV Endocrinology Comment on above: 1 MO OV Start: 02-27-2025 COVID-19 Vaccine ( season) COVID-19 Vaccine () [facility] Start: 02-27-2025 Influenza vaccination [facility] Start: 02-22-2025 Diabetes: Estimated Glomerular Filtration Rate for Kidney Health Diabetes: Estimated Glomerular Filtration Rate for Kidney Health [facility] Start: 02-22-2025 End: 02-22-2025 Nursing evaluation of patient and report 02/22/2025 2:00 PM EDT Nurse Visit Endocrinology [address] [place] [id number] Marshal Canada, RN [address] [id number] Consult for diabeties education Endocrinology Comment on above: Consult for diabeties education Start: 02-21-2025 End: 02-21-2025 Manual pelvic examination 02/21/2025 2:00 PM EDT Procedure OB/Gynecology [address], [place] [phone] Remote, Refinery Operator [facility] [address], [place] [id number] Pelvic pain [R10.2] OB/Gynecology Comment on above: Pelvic pain [R10.2] Start: 02-21-2025 End: 02-21-2025 Nursing evaluation of patient and report 02/21/2025 11:00 AM EDT Nurse Visit Endocrinology [address], [place] [id number] Marshal Canada, JES [address] [address] Consult for diabeties education Endocrinology Comment on above: Consult for diabeties education Start: 02-18-2025 Screening for Chlamydia trachomatis Chlamydia and Gonorrhea Screening [facility] Start: 02-17-2025 Depression Screening Depression Screening [facility] Start: 02-15-2025 Hemoglobin A1c measurement HbA1C [facility] Start: 02-09-2025 Diabetes: Estimated Glomerular Filtration Rate for Kidney Health Diabetes: Estimated Glomerular Filtration Rate for Kidney Health [facility] Start: 02-08-2025 End: 05-10-2025 Choriogonadotropin.beta subunit [Units/volume] in Serum or Plasma [facility] Work Phone: Comment on above: Expected: 02/08/2025, Expires: Start: 01-24-2025 Hemoglobin A1c measurement Diabetes: Hemoglobin A1C [facility] Start: 01-06-2025 Depression Screening Depression Screening [facility] Start: 01-06-2025 Diabetes: Estimated Glomerular Filtration Rate for Kidney Health Diabetes: Estimated Glomerular Filtration Rate for Kidney Health [facility] Start: 01-06-2025 Screening for Chlamydia trachomatis Chlamydia and Gonorrhea Screening [facility] Start: 01-04-2025 End: 01-04-2025 Patient encounter procedure 01/04/2025 10:50 AM EDT Office Visit OB/Gynecology [address] [place] [id number] Breanne Joshi MD [address] [place] [address] Pain OB/Gynecology Comment on above: Pain Start: 01-01-2025 Diabetes: Estimated Glomerular Filtration Rate for Kidney Health Diabetes: Estimated Glomerular Filtration Rate for Kidney Health [facility] Start: 12-27-2024 End: 12-27-2024 Patient encounter procedure 12/27/2024 11:00 AM EDT Office Visit Endocrinology [address] [place] [id number] Kourtney Sherman MD [address] [place] [address] 6 WK F/U DIABETES Endocrinology Comment on above: 6 WK F/U DIABETES Start: 12-13-2024 End: 12-13-2024 Patient encounter procedure 12/13/2024 3:00 PM EDT Office Visit OB/Gynecology [address] [place] [address] Breanne Joshi MD [address] [place] [address] Abnormal Periods - Blood clots OB/Gynecology Comment on above: Abnormal Periods - Blood clots Start: 11-15-2024 End: 11-15-2024 Patient encounter procedure 11/15/2024 4:00 PM EDT Office Visit Endocrinology [address] [place] [address] Kourtney Sherman MD [address] [place] [address] Pre-existing type 1 diabetes mellitus in in first trimester [O24.011] Endocrinology Comment on above: Pre-existing type 1 diabetes mellitus in in first trimester [O24.011] Start: 11-01-2024 End: 11-01-2024 Patient encounter procedure 11/01/2024 11:40 AM EDT Office Visit Endocrinology [address] [place] [address] Kourtney Sherman MD [address] [place] [address] Pre-existing type 1 diabetes mellitus in in first trimester [O24.011] Endocrinology Comment on above: Pre-existing type 1 diabetes mellitus in in first trimester [O24.011] Start: 10-29-2024 Adolescent Depression Screening Adolescent Depression Screening [facility] Start: 10-29-2024 Depression Screening Depression Screening [facility] Start: 10-29-2024 Diabetes: Estimated Glomerular Filtration Rate for Kidney Health Diabetes: Estimated Glomerular Filtration Rate for Kidney Health [facility] Start: 10-29-2024 Hemoglobin A1c measurement Diabetes: Hemoglobin A1C [facility] Start: 10-29-2024 Screening for Chlamydia trachomatis Chlamydia and Gonorrhea Screening [facility] Start: 10-29-2024 Thyroid stimulating hormone measurement TSH Level [facility] Start: 10-17-2024 End: 10-17-2024 Patient encounter procedure 10/17/2024 11:40 AM EDT Office Visit Endocrinology [address] [place] [address] Kourtney Sherman MD [address] [address] Pre-existing type 1 diabetes mellitus in in first trimester [O24.011] Endocrinology Comment on above: Pre-existing type 1 diabetes mellitus in in first trimester [O24.011] Start: 10-16-2024 End: 01-15-2025 Microalbumin/Creatinine [Mass Ratio] in Urine ALBUMIN/CREATININE RATIO, URINE Lab Routine Type 1 diabetes mellitus without complication (HCC) Expected: 10/16/2024, Expires: 01/15/2025 [facility] Comment on above: Expected: 10/16/2024, Expires: 5 Start: 09-13-2024 End: 09-13-2025 US Pelvis PELVIC US WHI Anc Imaging Routine Pelvic pain Expected: 09/13/2024, Expires: 09/13/2025 [facility] Work Phone: Comment on above: Expected: 09/13/2024, Expires: 6 Start: 09-13-2024 End: 09-13-2024 Patient encounter procedure 09/13/2024 8:20 AM EDT Office Visit OB/Gynecology [address] [place], [place] [phone] Breanne Joshi MD [address] [place] [address] chronic yeast infection OB/Gynecology Comment on above: chronic yeast infection Start: 08-31-2024 Thyroid stimulating hormone measurement TSH Level [facility] Start: 08-20-2024 Depression Monitoring Depression Monitoring [facility] Start: 08-13-2024 Anxiety Screening Anxiety Screening [facility] Start: 08-13-2024 Depression Screening Depression Screening [facility] Start: 08-13-2024 GC (Gonorrhea) Screening (18-24) GC (Gonorrhea) Screening (18-24) [facility] Start: 08-13-2024 Hemoglobin A1c measurement Diabetes: Hemoglobin A1C [facility] Start: 08-13-2024 Screening for Chlamydia trachomatis Chlamydia Screening (18) [facility] Start: 08-10-2024 End: 08-10-2024 Nursing evaluation of patient and report 08/10/2024 3:00 PM EST Nurse Visit Endocrinology [address] [address] Marshal Canada, RN [address] [address] dm ed Endocrinology Comment on above: dm ed Start: 08-09-2024 Thyroid stimulating hormone measurement TSH Level [facility] Start: 07-27-2024 Hemoglobin A1c measurement HbA1C [facility] Start: 07-18-2024 End: 10-17-2024 Comprehensive metabolic 2000 panel - Serum or Plasma COMPREHENSIVE METABOLIC PANEL Lab Routine Type 1 diabetes mellitus without complication (HCC) Expected: 07/18/2024, Expires: 10/17/2024 [facility] Comment on above: Expected: 07/18/2024, Expires: Start: 07-18-2024 End: 10-17-2024 Hemoglobin A1c in Blood HEMOGLOBIN A1C Lab Routine Type 1 diabetes mellitus without complication (HCC) Expected: 07/18/2024, Expires: 10/17/2024 [facility] Comment on above: Expected: 07/18/2024, Expires: Start: 07-18-2024 End: 10-17-2024 Lipid 1996 panel - Serum or Plasma LIPID PANEL BASIC Lab Routine Type 1 diabetes mellitus without complication (HCC) Expected: 07/18/2024, Expires: 10/17/2024 [facility] Comment on above: Expected: 07/18/2024, Expires: Start: 07-18-2024 End: 10-17-2024 Thyrotropin [Units/volume] in Serum or Plasma THYROID STIMULATING HORMONE Lab Routine Type 1 diabetes mellitus without complication (HCC) Expected: 07/18/2024, Expires: 10/17/2024 [facility] Work Phone: Comment on above: Expected: 07/18/2024, Expires: Start: 07-18-2024 End: 07-18-2024 Patient encounter procedure 07/18/2024 10:00 AM EST Office Visit [facility] [address] [facility] [place], [place] [id number] Kourtney Sherman MD [address] [place], [place] [id number] Type 1 diabetes mellitus without complication (HCC) [E10.9] Endocrinology Comment on above: Type 1 diabetes mellitus without complic ation (HCC) [E10.9] Start: 03-29-2024 End: 03-29-2024 Patient encounter procedure 03/29/2024 10:00 AM EDT Office Visit [facility] [place] [facility] [address], [place] [phone] Michael Adame MD [address] [id number] [facility] [place] [facility] Start: 03-10-2024 End: 03-10-2024 Professional / ancillary services management 03/10/2024 10:00 AM EDT Ancillary Procedure Visit [facility] [place] [address] [facility], [address] [place] [address] [facility] [place] Start: 03-07-2024 End: 03-07-2024 Professional / ancillary services management 03/07/2024 10:00 AM EDT Ancillary Procedure Visit [facility] [place] [address] [facility], [address] [place] [address] [facility] [place] Start: 03-03-2024 End: 03-03-2024 Professional / ancillary services management 03/03/2024 10:00 AM EDT Ancillary Procedure Visit [facility] [place] [address] [facility] [address] [place] [address] [facility] [place] Start: 03-01-2024 End: 03-01-2024 Patient encounter procedure 03/01/2024 10:30 AM EDT Office Visit [facility] [address] [place] [address] Flores Gilbert, LICENSED DISPENSING OPTICIAN-COOPERATIVE MANAGER [place], [place] [address] [phone] [facility] Start: 03-01-2024 End: 03-01-2024 Professional / ancillary services management 03/01/2024 10:00 AM EDT Ancillary Procedure Visit [facility] [address] [place] [address] [facility] Start: 02-28-2024 Covid-19 Vaccine ( season) Covid-19 Vaccine () [facility] Start: 02-28-2024 Influenza vaccination Influenza Vaccine (#1) [facility] Start: 02-25-2024 End: 02-25-2024 Professional / ancillary services management 02/25/2024 10:00 AM EDT Ancillary Procedure Visit [facility] [place] [address] [facility] [place] Start: 02-22-2024 End: 02-22-2024 Patient encounter procedure 02/22/2024 10:30 AM EDT Office Visit [facility] [place] [address] Flores Gilbert, LICENSED DISPENSING OPTICIAN-COOPERAT[place] [address] [facility] [place] Start: 02-22-2024 End: 02-22-2024 Professional / ancillary services management 02/22/2024 10:00 AM EDT Ancillary Procedure Visit [facility] [place] [address] [facility], [address] [place] [address] [facility] [place] Start: 02-18-2024 End: 02-18-2024 Professional / ancillary services management 02/18/2024 10:00 AM EDT Ancillary Procedure Visit [facility] [place] [address] [facility], [address] [place] [address] [facility] [place] Start: 02-15-2024 End: 02-15-2024 Patient encounter procedure 02/15/2024 10:30 AM EDT Office Visit [facility] [place] [address] [facility], [address] [place] [address] [place] [address] [facility] [place] Start: 02-15-2024 End: 02-15-2024 Professional / ancillary services management 02/15/2024 10:00 AM EDT Ancillary Procedure Visit [facility] [place] [address] [facility], [address] [place] [address] [facility] [place] Start: 02-11-2024 End: 02-11-2024 Professional / ancillary services management 02/11/2024 10:00 AM EDT Ancillary Procedure Visit [facility] [place] [address] [facility], [address] [place] [address] [facility] [place] Start: 02-08-2024 End: 02-08-2024 Patient encounter procedure 02/08/2024 10:30 AM EDT Office Visit [facility] [place] [address] [facility], [address] [place] [address] Flores Gilbert [place] [address] [facility] [place] Start: 02-08-2024 End: 02-08-2024 Professional / ancillary services management 02/08/2024 10:00 AM EDT Ancillary Procedure Visit [facility] [place] [address] [facility], [address] [place] [address] [facility] [place] Start: 02-04-2024 End: 02-04-2024 Professional / ancillary services management 02/04/2024 10:00 AM EDT Ancillary Procedure Visit [facility] [place] [address] [facility], [address] [place] [address] [facility] [place] Start: 02-01-2024 End: 02-01-2024 Patient encounter procedure 02/01/2024 10:30 AM EDT Office Visit [facility] [place] [address] [facility] [address] [place] [address] Flores Gilbert APRN-COOPERAT[place] [address] [facility] [place] Start: 02-01-2024 End: 02-01-2024 Professional / ancillary services management 02/01/2024 10:00 AM EDT Ancillary Procedure Visit [facility] [place] [address] [facility] [address] [place] [address] [facility] [place] Start: 01-28-2024 End: 01-28-2024 Professional / ancillary services management 01/28/2024 10:00 AM EDT Ancillary Procedure Visit [facility] [place] [address] [facility] [address] [place] [address] [facility] [place] Start: 01-25-2024 Hemoglobin A1c/Hemoglobin.total in Blood HbA1c [facility] Start: 01-25-2024 End: 01-25-2024 Patient encounter procedure 01/25/2024 10:30 AM EDT Office Visit [facility] [place] [address] [facility] [address] [place] [address] Flores [place] [address] [facility] [place] Start: 01-25-2024 End: 01-25-2024 Professional / ancillary services management 01/25/2024 10:00 AM EDT Ancillary Procedure Visit [facility] [place] [address] [facility] [address] [place] [address] [facility] [place] Start: 01-21-2024 End: 01-21-2024 Professional / ancillary services management 01/21/2024 10:00 AM EDT Ancillary Procedure Visit [facility] [place] [address] [place] [address] [facility] [place] Start: 01-18-2024 End: 01-18-2024 Patient encounter procedure 01/18/2024 10:30 AM EDT Office Visit [facility] [place] [address] [facility] [address] [place] [address] Flores Gilbert, LICENSED DISPENSING OPTICIAN-COOPERATIVE MANAGER [place], [place] [address] [phone] [facility] [place] Start: 01-18-2024 End: 01-18-2024 Professional / ancillary services management 01/18/2024 10:00 AM EDT Ancillary Procedure Visit [facility] [place] [address] [facility], [address] [place] [address] [facility] [place] Start: 01-04-2024 End: 01-04-2024 Patient encounter procedure 01/04/2024 10:00 AM EDT Office Visit [facility] [address], [address] [place] [address] Flores Gilbert, LICENSED DISPENSING OPTICIAN-COOPERATIVE MANAGER [place], [place] [id number] [phone] [facility] [place] Start: 12-17-2023 End: 12-17-2023 Patient encounter procedure 12/17/2023 10:30 AM EDT Office Visit [facility] [place] [address] [place] [address] Ivan Sharma, [place] [address] [facility] [place] Start: 12-17-2023 End: 12-17-2023 Professional / ancillary services management [facility] [place] Start: 12-16-2023 Pneumococcal vaccination Pneumococcal Vaccine (1 of 2 - PCV) [facility] Start: 12-16-2023 Pneumococcal Vaccine: Pediatrics (0 to 5 Years) and At-Risk Patients (6 to 49 Years) (1 of 2 - PCV) Pneumococcal Vaccine: Pediatrics (0 to 5 Years) and At-Risk Patients (6 to 49 Years) (1 of 2 - PCV) [facility] Start: 11-30-2023 End: 11-30-2023 ambulatory 11/30/2023 1:00 PM EDT Telehealth [facility] [address] [place], [place] [phone] Flores Gilbert APRN-CORINNE [place], [place] [id number] [phone] [facility] Start: 11-19-2023 End: 11-19-2023 ambulatory 11/19/2023 10:00 AM EDT Telehealth [facility] [address] [place] [address] Flores Gilbert [place] [address] [facility] Start: 11-12-2023 End: 11-12-2023 Patient encounter procedure 11/12/2023 9:00 AM EDT Office Visit [facility] [place] [address] [place], [place] [id number] [phone] Ivan Sharma DO [place], [place] [id number] [phone] [facility] [place] Start: 11-12-2023 End: 11-12-2023 Professional / ancillary services management 11/12/2023 8:30 AM EDT Ancillary Procedure Visit [facility] [place] [address] [place] [address] [facility] [place] Start: 11-10-2023 End: 11-10-2023 Patient encounter procedure 11/10/2023 12:00 PM EDT Office Visit [facility] [place] [facility] [address] [place] [address] Flores Gilbert APRN-CORINNE [place], [place] [id number] [phone] Sonny Briones DO [address] [address] [place], [place] [id number] [facility] Start: 11-02-2023 End: 11-02-2023 Patient encounter procedure 11/02/2023 2:00 PM EDT Office Visit Medicine [facility] [address] [place] [address] Francia Haimlton MD [address] [facility] [address] [place] [address] Medicine [facility] Start: 10-26-2023 End: 10-26-2023 Patient encounter procedure 10/26/2023 8:40 AM EDT Office Visit Allergy [address] [place] [address] Arias Kapadia MD [place], [place] [id number] [facility] [place] Start: 10-21-2023 CHLAMYDIA SCREENING (18-24) CHLAMYDIA SCREENING (18-24) [facility] Start: 10-21-2023 CHLAMYDIA SCREENING (<18) CHLAMYDIA SCREENING (<18) [facility] Start: 10-21-2023 GC (GONORRHEA) SCREENING (18-24) GC (GONORRHEA) SCREENING (18-24) [facility] Start: 10-21-2023 GC (GONORRHEA) SCREENING (<18) GC (GONORRHEA) SCREENING (<18) [facility] Start: 10-21-2023 Screening for Chlamydia trachomatis Chlamydia Screening (18-24) [facility] Start: 10-15-2023 End: 10-15-2023 Professional / ancillary services management 10/15/2023 9:00 AM EDT Ancillary Procedure Visit [facility] [place] [address] [place] [address] [facility] [place] Start: 10-07-2023 Hemoglobin A1c/Hemoglobin.total in Blood HbA1c [facility] Start: 10-07-2023 End: 10-06-2025 US Heart Transthoracic Transthoracic echocardiogram (TTE) complete with contrast, bubble, strain, and 3D PRN CV Echocardiography Routine SOB (shortness of breath) Tachycardia Expected: 10/07/2023 (Approximate), Expires: 10/06/2025 [facility] Work Phone: Comment on above: Expected: 10/07/2023 (Approximate), Expi res: 10/06/2025 Start: 09-28-2023 End: 09-28-2023 Patient encounter procedure 09/28/2023 11:30 AM EDT Office Visit Maternal Medicine [place] [address] [facility], [address] [place], [place] [id number] [place] [address] Maternal Medicine [place] Start: 09-21-2023 End: 09-20-2024 OBSTETRIC ULTRASOUND WHI OBSTETRIC ULTRASOUND WHI Anc Imaging Routine Encounter for supervision of high risk in first trimester, antepartum Pre-existing type 1 diabetes mellitus in in first trimester Expected: 09/21/2023, Expires: 09/20/2024 [facility] Work Phone: Comment on above: Expected: 09/21/2023, Expires: Start: 09-14-2023 End: 09-14-2023 ambulatory 09/14/2023 2:00 PM EDT Telehealth Maternal Medicine [address], [place] [id number] Terence De Santiago PA-C [address] [facility] [address] [place], [place] [id number] Maternal Medicine Start: 09-12-2023 CHLAMYDIA SCREENING (<18) CHLAMYDIA SCREENING (<18) [facility] Start: 09-12-2023 GC (GONORRHEA) SCREENING (<18) GC (GONORRHEA) SCREENING (<18) [facility] Start: 08-28-2023 End: 08-28-2023 Patient encounter procedure 08/28/2023 8:40 AM EST Office Visit Allergy - [place] [address] [place], [place] [id number] [place] [address] Allergy - [place] Start: 08-27-2023 Hemoglobin A1c/Hemoglobin.total in Blood HbA1c [facility] Start: 08-27-2023 End: 08-27-2023 Patient encounter procedure 08/27/2023 1:00 PM EST Office Visit Diabetes & Endocrinology - [place] [address] [place] [address] Sakina Gillis, LICENSED DISPENSING OPTICIAN-COOPERATIVE MANAGER [address] [facility] [address] [place] [address] Diabetes [facility] Endocrinology - [place] Start: 08-13-2023 End: 11-12-2023 Comprehensive metabolic 2000 panel - Serum or Plasma [facility] Work Phone: Comment on above: Expected: 08/13/2023, Expires: Start: 08-13-2023 End: 11-12-2023 Hemoglobin A1c in Blood [facility] Work Phone: Comment on above: Expected: 08/13/2023, Expires: Start: 08-13-2023 End: 11-12-2023 HEMOGLOBIN EVALUATION CASCADE [facility] Work Phone: Comment on above: Expected: 08/13/2023, Expires: Start: 08-13-2023 End: 11-12-2023 Hepatitis B virus surface Ag [Presence] in Serum [facility] Work Phone: Comment on above: Expected: 08/13/2023, Expires: 4 Start: 08-13-2023 End: 11-12-2023 Hepatitis C virus Ab [Presence] in Serum [facility] Work Phone: Comment on above: Expected: 08/13/2023, Expires: Start: 08-13-2023 End: 11-12-2023 HIV 1+2 Ab [Presence] in Serum or Plasma by Immunoassay [facility] Work Phone: Comment on above: Expected: 08/13/2023, Expires: 4 Start: 08-13-2023 End: 08-13-2024 NUCHAL TRANSLUCENCY WHI NUCHAL TRANSLUCENCY WHI Anc Imaging Routine Encounter for supervision of high risk in first trimester, antepartum Expected: 08/13/2023, Expires: 08/13/2024 [facility] Work Phone: Comment on above: Expected: 08/13/2023, Expires: 5 Start: 08-13-2023 End: 11-12-2023 Protein/Creatinine [Mass Ratio] in Urine [facility] Work Phone: Comment on above: Expected: 08/13/2023, Expires: 4 Start: 08-13-2023 End: 11-12-2023 RUBELLA IGG AB [facility] Work Phone: Comment on above: Expected: 08/13/2023, Expires: 4 Start: 08-13-2023 End: 11-12-2023 SYPHILIS TOTAL W/REFLEX [facility] Work Phone: Comment on above: Expected: 08/13/2023, Expires: 4 Start: 08-13-2023 End: 11-12-2023 Thyrotropin [Units/volume] in Serum or Plasma [facility] Work Phone: Comment on above: Expected: 08/13/2023, Expires: 4 Start: 07-06-2023 End: 07-06-2023 Patient encounter procedure 07/06/2023 9:00 AM EST Office Visit Psych Endo - [place] [address] [place] [address], [address] [place] [address] Jt Leos, [place] [address] Psych Endo - [place] Start: 06-29-2023 Behavioral Health Screening Behavioral Health Screening [facility] Start: 06-29-2023 Depression Assessment Depression Assessment [facility] Start: 05-31-2023 [facility] Start: 05-30-2023 [facility] Start: 05-07-2023 CHLAMYDIA SCREENING (<18) CHLAMYDIA SCREENING (<18) [facility] Start: 05-07-2023 GC (GONORRHEA) SCREENING (<18) GC (GONORRHEA) SCREENING (<18) [facility] Start: 04-24-2023 End: 04-24-2023 Patient encounter procedure 04/24/2023 10:40 AM EDT Office Visit Diabetes & Endocrinology - [place] [address] [place] [address] Sakina Gillis, LICENSED DISPENSING OPTICIAN-COOPERATIVE MANAGER [address] [facility] [address] [place] [address] Diabetes [facility] Endocrinology - [place] Start: 04-24-2023 End: 04-24-2023 Clinical Support Diabetes & Endocrino logy - [place] Start: 04-15-2023 End: 07-15-2023 Hemoglobin A1c in Blood [facility] Work Phone: Comment on above: Expected: 04/15/2023, Expires: Start: 02-27-2023 COVID-19 ( season) COVID-19 ( season) [facility] Start: 02-27-2023 COVID-19 Vaccine ( season) COVID-19 Vaccine ( season) [facility] Start: 02-27-2023 FLU (#1) FLU (#1) [facility] Start: 02-27-2023 Influenza vaccination [facility] Start: 01-21-2023 [facility] Start: 01-03-2023 CHLAMYDIA SCREENING (<18) CHLAMYDIA SCREENING (<18) [facility] Start: 01-03-2023 GC (GONORRHEA) SCREENING (<18) GC (GONORRHEA) SCREENING (<18) [facility] Start: 2022 Annual PCP Team Chronic Disease Visit Annual PCP Team Chronic Disease Visit [facility] Start: 2022 Anxiety Screening Anxiety Screening [facility] Start: 2022 Depression Screening Depression Screening [facility] Start: 2022 Diabetes: Urine Albumin-Creatinine Ratio for Kidney Health Diabetes: Urine Albumin-Creatinine Ratio for Kidney Health [facility] Start: 2022 Hearing Screening Hearing Screening [facility] Start: 2022 Hepatitis B surface antibody level LDL Cholesterol [facility] Start: 2022 HEPATITIS C SCREENING HEPATITIS C SCREENING [facility] Start: 2022 Hepatitis C screening Hepatitis C Screening [facility] Start: 2022 HIV SCREENING HIV SCREENING [facility] Start: 2022 HIV screening HIV Screening [facility] Start: 08-20-2022 Patient discharge [facility] Start: 08-18-2022 Admission procedure [facility] Start: 08-18-2022 Vital signs measurements [facility] Start: 08-18-2022 Following clinical pathway protocol [facility] Start: 08-18-2022 Anes lithotrp xtrcorp shock wave w/o water bath ANESTH KIDNEY STONE DESTRUCT [facility] Start: 08-18-2022 Anes transurethral w/urethrocystoscopy nos ANESTH BLADDER SURGERY [facility] Start: 08-18-2022 Cysto w/insert ureteral stent CYSTOSCOPY AND TREATMENT [facility] Start: 08-18-2022 Lithotripsy xtrcorp shock wave FRAGMENTING OF KIDNEY STONE [facility] Start: 08-02-2022 CHLAMYDIA SCREENING (<18) CHLAMYDIA SCREENING (<18) [facility] Start: 08-02-2022 GC (GONORRHEA) SCREENING (<18) GC (GONORRHEA) SCREENING (<18) [facility] Start: 06-29-2022 DEPRESSION ASSESSMENT DEPRESSION ASSESSMENT [facility] Start: 05-30-2022 [facility] Work Phone: Start: 05-28-2022 End: 06-11-2022 COVID, FLU A/B + RSV, ROUTINE [facility] Work Phone: Comment on above: Expected: 05/28/2022, Expires: 2 Start: 02-27-2022 FLU (#1) FLU (#1) [facility] Start: 02-27-2022 Influenza vaccination [facility] Start: 02-14-2022 Well Visit Well Visit [facility] Start: 01-03-2022 End: 03-05-2022 T VAGINALIS AMPLIFICATION T VAGINALIS AMPLIFICATION Lab Routine Dysuria Vaginal discharge Screen for sexually transmitted diseases Expected: 01/03/2022, Expires: 03/05/2022 [facility] Work Phone: Comment on above: Expected: 01/03/2022, Expires: 2 Start: 08-17-2021 Meningococcal B Vaccine (2 of 2 - Bexsero SCDM 2-dose series) Meningococcal B Vaccine (2 of 2 - Bexsero SCDM 2-dose series) [facility] Start: 03-14-2021 MenB (2 of 2 - MenB 2-Dose Series Bexsero) MenB (2 of 2 - MenB 2-Dose Series Bexsero) [facility] Start: 03-14-2021 Meningococcal B Vaccine: Consider Based On Risk (2 of 2 - Risk Bexsero 2-dose series) Meningococcal B Vaccine: Consider Based On Risk (2 of 2 - Risk Bexsero 2-dose series) [facility] Start: 03-14-2021 MENINGOCOCCAL B: Consider based on risk (2 of 2 - Risk Bexsero 2-dose series) MENINGOCOCCAL B: Consider based on risk (2 of 2 - Risk Bexsero 2-dose series) [facility] Start: 2020 MenACWY (1 - 2-dose series) MenACWY (1 - 2-dose series) [facility] Start: 2020 MenB (1 of 2 - MenB 2-Dose Series) MenB (1 of 2 - MenB 2-Dose Series) [facility] Start: 2020 Meningococcal ACWY Vaccine (1 - 2-dose series) Meningococcal ACWY Vaccine (1 - 2-dose series) [facility] Start: 2020 Meningococcal Vaccine (1 - 2-dose series) Meningococcal Vaccine (1 - 2-dose series) [facility] Start: 2020 Screening for Chlamydia trachomatis HEDIS CN 16-21 YR FEMALE CHLAMYDIA SCREENING [facility] Start: 12-16-2019 Hearing Screening Hearing Screening [facility] Start: 12-16-2019 HPV Vaccine (1 - 3-dose series) HPV Vaccine (1 - 3-dose series) [facility] Start: 12-16-2019 Vision Screening Vision Screening [facility] Start: 2018 PEDS TO ADULT TRANSITION ANNUAL ASSESSMENT PEDS TO ADULT TRANSITION ANNUAL ASSESSMENT [facility] Start: 2017 Varicella Vaccine (1 of 2 - 13+ 2-dose series) Varicella Vaccine (1 of 2 - 13+ 2-dose series) [facility] Start: 2016 Adolescent Depression Screening Adolescent Depression Screening [facility] Start: 2016 Adult depression screening assessment DEPRESSION SCREENING [facility] Start: 2016 PEDS TO ADULT TRANSITION INITIAL DISCUSSION PEDS TO ADULT TRANSITION INITIAL DISCUSSION [facility] Start: 12-16-2015 HPV (1 - 2-dose series) HPV (1 - 2-dose series) [facility] Start: 12-16-2015 HPV Vaccines (1 - 2-dose series) HPV Vaccines (1 - 2-dose series) [facility] Start: 2014 Diabetic foot examination [facility] Start: 2014 Glaucoma screening [facility] Start: 2014 Hepatitis B screening Urine Albumin:Creatinine Ratio [facility] Start: 2014 Preventive dental service Diabetes: Dental Exam [facility] Start: 12-16-2011 DTaP/Tdap/Td Vaccine (1 - Tdap) DTaP/Tdap/Td Vaccine (1 - Tdap) [facility] Start: 12-16-2011 DTaP/Tdap/Td Vaccines (1 - Tdap) DTaP/Tdap/Td Vaccines (1 - Tdap) [facility] Start: 12-16-2011 Tetanus Diphtheria and Pertussis Vaccines (1 - Tdap) Tetanus Diphtheria and Pertussis Vaccines (1 - Tdap) [facility] Start: 2010 Pneumococcal Vaccine: Pediatrics (0 to 5 Years) and At-Risk Patients (6 to 64 Years) (1 of 2 - PCV) Pneumococcal Vaccine: Pediatrics (0 to 5 Years) and At-Risk Patients (6 to 64 Years) (1 of 2 - PCV) [facility] Start: 2009 COVID-19 VACCINE (#1) [facility] Start: 2006 HEDIS CN 2-20 YR DENTAL YEARLY VISIT HEDIS CN 2-20 YR DENTAL YEARLY VISIT [facility] Start: 2005 Hepatitis A (1 of 2 - 2-dose series) Hepatitis A (1 of 2 - 2-dose series) [facility] Start: 2005 Hepatitis A Vaccine (1 of 2 - 2-dose series) Hepatitis A Vaccine (1 of 2 - 2-dose series) [facility] Start: 2005 Hepatitis A Vaccines (1 of 2 - 2-dose series) Hepatitis A Vaccines (1 of 2 - 2-dose series) [facility] Start: 2005 MMR (1 of 2 - Standard series) MMR (1 of 2 - Standard series) [facility] Start: 2005 MMR Vaccine (1 of 2 - Standard series) MMR Vaccine (1 of 2 - Standard series) [facility] Start: 2005 MMR Vaccines (1 of 2 - Standard series) MMR Vaccines (1 of 2 - Standard series) [facility] Start: 2005 Varicella (1 of 2 - 2-dose childhood series) Varicella (1 of 2 - 2-dose childhood series) [facility] Start: 2005 Varicella vaccination Varicella Vaccines (1 of 2 - 2-dose childhood series) [facility] Start: 08-17-2005 Application of dental fluoride varnish Fluoride Varnish [facility] Start: 06-16-2005 COVID-19 (#1) COVID-19 (#1) [facility] Start: 06-16-2005 COVID-19 VACCINE (#1) COVID-19 VACCINE (#1) [facility] Start: 02-14-2005 Polio (1 of 3 - 4-dose series) Polio (1 of 3 - 4-dose series) [facility] Start: 2004 Cyanocobalamin vitamin b-12 Vitamin B-12 [facility] Start: 2004 Diabetes: Celiac Disease Screening Diabetes: Celiac Disease Screening [facility] Start: 2004 Hemoglobin A1c/Hemoglobin.total in Blood HbA1c [facility] Start: 2004 Hepatitis B (1 of 3 - 3-dose series) Hepatitis B (1 of 3 - 3-dose series) [facility] Start: 2004 Hepatitis B Vaccine (1 of 3 - 3-dose series) Hepatitis B Vaccine (1 of 3 - 3-dose series) [facility] Start: 2004 Hepatitis B Vaccines (1 of 3 - 3-dose series) Hepatitis B Vaccines (1 of 3 - 3-dose series) [facility] Start: 2004 HIV screening HIV Screening [facility] Start: 2004 Lipid panel Lipid Panel [facility] Start: 2004 Screening for Chlamydia trachomatis Chlamydia and Gonorrhea Screening [facility] End: 04-20-2023 Anti-Thyroidperoxidase [facility] Work Phone (unformatted): [phone] Comment on above: Add On for 1 Occurrences starting 2022 until 04/20/2023 For lab collect this frequency defaults to the next routine lab draw time. Routine times: 0600; 1100; 1400; 1900; 2200 for 1 Occurrences starting 04/20/2023 until 04/20/2023 Anti-Thyroidperoxidase Anti-Thyr oidperoxidase Lab Routine 04/20/2023 5:57 PM EDT [facility] Bacteria identified in Throat by Culture [facility] Work Phone: End: 09-21-2023 Bacteria identified in Unspecified specimen by Aerobe culture Urine Aerobic Culture Microbiology Routine Once for 1 Occurrences starting 09/21/2023 until 09/21/2023 [facility] Work Phone: Comment on above: Once for 1 Occurrences starting 09/21/19 until 09/21/2023 Bacteria identified in Urine by Culture URINE CULTURE Microbiology Routine Dysuria 01/03/2022 3:54 PM EDT [facility] Work Phone: Bacteria identified in Urine by Culture URINE CULTURE Microbiology Routine Dysuria Ordered: 05/05/2022 [facility] Work Phone: Comment on above: Ordered: 05/05/2022 Bacteria identified in Urine by Culture Urine Culture [facility] Work Phone: End: 06-09-2022 Bacteria identified in Urine by Culture [facility] Comment on above: Add On for 1 Occurrences starting 2021 until 06/09/2022 For lab collect this frequency defaults to the next routine lab draw time. Routine times: 0600; 1100; 1400; 1900; 2200 for 1 Occurrences starting 06/09/2022 until 06/09/2022 Bacteria identified in Urine by Culture Urine culture Microbiology Routine 06/09/2022 2:10 PM [facility] Bacteria identified in Urine by Culture URINE CULTURE Microbiology Routine Urinary frequency 07/30/2022 4:15 PM [facility] Work Phone: Bacteria identified in Urine by Culture URINE CULTURE Microbiology Routine Low back pain without sciatica, unspecified back pain laterality, unspecified chronicity Ordered: 08/04/2022 [facility] Work Phone: Comment on above: Ordered: 08/04/2022 Bacteria identified in Urine by Culture URINE CULTURE Microbiology Routine Dysuria 09/11/2022 12:35 PM [facility] Work Phone: Bacteria identified in Urine by Culture URINE CULTURE Microbiology Routine Dysuria 10/20/2022 4:01 PM [facility] [employer] Work Phone: Bacteria identified in Urine by Culture URINE CULTURE Microbiology Routine Urinary frequency 04/15/2023 10:11 AM [facility] Work Phone: End: 08-09-2023 Bacteria identified in Urine by Culture [facility] [employer] Work Phone: Comment on above: Once (Lab) for 1 Occurrences starting until 08/09/2023 Bacteria identified in Urine by Culture URINE CULTURE Microbiology Routine Encounter for supervision of high risk in first trimester, antepartum 08/13/2023 3:43 PM [facility] Work Phone: Bacteria identified in Urine by Culture URINE CULTURE Microbiology Routine Acute UTI 10/20/2023 12:15 PM [facility] Work Phone: End: 10-30-2023 Bacteria [facility] Work [facility]: Comment on above: STAT (Lab) for 1 Occurrences starting until 10/30/2023 End: 11-12-2023 Bacteria identified in Urine by Culture [facility] Work Phone: Comment on above: 1 Occurrences starting 11/12/2023 until 11/12/2023 Bacteria identified in Urine by Culture BACTERIAL CULTURE, URINE Microbiology Routine Vaginal pain Ordered: 09/07/2024 [facility] Comment on above: Ordered: 09/07/2024 Bacteria identified in Urine by Culture BACTERIAL CULTURE, URINE Microbiology Routine Pelvic pain 02/08/2025 4:33 PM EDT [facility] BACTERIAL VAGINOSIS AMPLIFICATION BACTERIAL VAGINOSIS AMPLIFICATION Lab Routine Vulvar dermatitis Vaginal irritation 09/11/2022 12:35 PM EDT [facility] Work Phone: BACTERIAL VAGINOSIS NAAT BACTERIAL VAGINOSIS NAAT Lab Routine Vaginal discharge during in first trimester 08/13/2023 3:46 PM [facility] Work Phone: BACTERIAL VAGINOSIS NAAT BACTERIAL VAGINOSIS NAAT Lab Routine Vaginal pain Ordered: 09/07/2024 [facility] Comment on above: Ordered: 09/07/2024 BACTERIAL VAGINOSIS NAAT BACTERIAL VAGINOSIS NAAT Lab Routine Vaginal discharge 02/08/2025 4:33 PM T [facility] JAYME / TRICHOMONA S AMPLIFICATION JAYME / TRICHOMONAS AMPLIFICATION Microbiology Routine Vulvar dermatitis Vaginal irritation 09/11/2022 12:35 PM T [facility] Work Phone: JAYME/TRICHOMONAS NAAT JAYME/TRICHOMONAS NAAT Lab Routine Vaginal discharge during in first trimester 08/13/2023 3:46 PM [facility] Work Phone: JAYME/TRICHOMONAS NAAT JAYME/TRICHOMONAS NAAT Lab Routine Vaginal pain Ordered: 09/07/2024 [facility] Work Phone: Comment on above: Ordered: 09/07/2024 JAYME/TRICHOMONAS NAAT JAYME/TRICHOMONAS NAAT Lab Routine Vaginal discharge 02/08/2025 4:33 PM T [facility] Chlamydia trachomatis+Neisseria gonorrhoeae DNA [Presence] in Unspecified specimen by FIORELLA with probe detection GC/CHLAMYDIA DNA DET Lab Routine Dysuria Vaginal discharge Screen for sexually transmitted diseases 01/03/2022 3:54 PM EDT [facility] Work Phone: Chlamydia trachomatis+Neisseria gonorrhoeae DNA [Presence] in Unspecified specimen by FIORELLA with probe detection GC/CHLAMYDIA DNA DET Lab Routine Vaginal irritation 09/11/2022 12:35 PM EDT [facility] Work Phone: Chlamydia trachomatis+Neisseria gonorrhoeae DNA [Presence] in Unspecified specimen by FIORELLA with probe detection GONORRHEA/CHLAMYDIA NAAT Lab Routine Encounter for supervision of high risk in first trimester, antepartum 08/13/2023 3:43 PM EST [facility] Work Phone: Chlamydia trachomatis+Neisseria gonorrhoeae DNA [Presence] in Unspecified specimen by FIORELLA with probe detection GONORRHEA/CHLAMYDIA NAAT Lab Routine Vaginal pain Ordered: 09/07/2024 [facility] Comment on above: Ordered: 09/07/2024 COVID & INFLUENZA A/ B & RSV NAAT, ROUTINE COVID & INFLUENZA A/B & RSV NAAT, ROUTINE Microbiology Routine Viral illness Ordered: 06/14/2023 [facility] Work Phone: Comment on above: Ordered: 06/14/2023 COVID, FLU A/B + RSV , ROUTINE COVID, FLU A/B + RSV, ROUTINE Microbiology Routine Flu-like symptoms Ordered: 08/04/2022 [facility] Work Phone: Comment on above: Ordered: 08/04/2022 End: 06-09-2022 Ecg routine ecg w/least 12 lds i&r only [facility] Work Phone: Comment on above: One Time for 1 Occurrences starting 05/29 until 06/09/2022 End: 04-20-2023 BREN 65 Autoantibodies [facility] Comment on above: Add On for 1 Occurrences starting 2022 until 04/20/2023 For lab collect this frequency defaults to the next routine lab draw time. Routine times: 0600; 1100; 1400; 1900; 2200 for 1 Occurrences starting 04/20/2023 until 04/20/2023 BREN 65 Autoantibodies BREN 65 Aut oantibodies Lab Routine 04/20/2023 5:57 PM EDT [facility] Hemoglobin A1c/Hemoglobin.total in Blood [facility] End: 04-20-2023 ICA 512 Antibodies [facility] Comment on above: Add On for 1 Occurrences starting 2022 until 04/20/2023 For lab collect this frequency defaults to the next routine lab draw time. Routine times: 0600; 1100; 1400; 1900; 2200 for 1 Occurrences starting 04/20/2023 until 04/20/2023 ICA 512 Antibodies ICA 512 Antib odies Lab Routine 04/20/2023 5:57 PM EDT [facility] End: 04-20-2023 Immunoglobulin A Immunoglobulin A Lab Add-On Add On for 1 Occurrences starting 04/20/2023 until 04/20/2023 [facility] Comment on above: Add On for 1 Occurrences starting 2022 until 04/20/2023 End: 04-20-2023 Insulin antibodies [facility] Comment on above: Add On for 1 Occurrences starting 2022 until 04/20/2023 For lab collect this frequency defaults to the next routine lab draw time. Routine times: 0600; 1100; 1400; 1900; 2200 for 1 Occurrences starting 04/20/2023 until 04/20/2023 Insulin antibodies Insulin antib odies Lab Routine 04/20/2023 5:57 PM EDT [facility] Patient Education [facility] Work Phone: Patient referral [facility] Work Phone: End: 06-01-2023 POCT glucose by meter POCT glucose by meter Point of Care Testing-Docked Device STAT One Time for 1 Occurrences starting 06/01/2023 until 06/01/2023 [facility] Work Phone: Comment on above: One Time for 1 Occurrences starting 09/2022 until 06/01/2023 ROUTINE FLU A/B + RSV ROUTINE FL U A/B + RSV Lab Routine Sore throat Viral illness 05/28/2022 3:57 PM [facility] Work Phone: ROUTINE FLU A/B + RSV ROUTINE FL U A/B + RSV Lab Routine Flu-like symptoms Ordered: 08/04/2022 [facility] Work Phone: Comment on above: Ordered: 08/04/2022 SARS-CoV-2 (COVID-19 ) RNA [Presence] in Respiratory specimen by FIORELLA with probe detection 2019 CORONAVIRUS Microbiology Routine Sore throat Viral illness 05/28/2022 3:57 PM EST [facility] Work Phone: SARS-CoV-2 (COVID-19 ) RNA [Presence] in Respiratory specimen by FIORELLA with probe detection 2019 CORONAVIRUS Microbiology Routine Flu-like symptoms Ordered: 08/04/2022 [facility] Work Phone: Comment on above: Ordered: 08/04/2022 Throat culture Throat Culture [facility] Work Phone: End: 08-09-2023 Thyroid Stimulating Hormone Receptor Antibody (TRAb) [facility] Comment on above: Once (Lab) for 1 Occurrences starting until 08/09/2023 End: 04-20-2023 Transglutaminase IgA Transglutaminase IgA Lab Add-On Add On for 1 Occurrences starting 04/20/2023 until 04/20/2023 [facility] Work Phone (unformatted): [phone] Comment on above: Add On for 1 Occurrences starting 2022 until 04/20/2023 End: 04-20-2023 TSH with Reflex to T4, Free TSH with Reflex to T4, Free Lab Add-On Add On for 1 Occurrences starting 04/20/2023 until 04/20/2023 [facility] Comment on above: Add On for 1 Occurrences starting 2022 until 04/20/2023 UA DIP, URINE (POC) UA DIP, URIN E (POC) Lab Routine Acute low back pain without sciatica, unspecified back pain laterality Ordered: 06/09/2022 [facility] Work Phone: Comment on above: Ordered: 06/09/2022 Urinalysis complete panel - Urine URINALYSIS, WITH MICROSCOPIC Lab Routine Urinary frequency Ordered: 04/15/2023 [facility] Work Phone: Comment on above: Ordered: 04/15/2023 End: 04-20-2023 Vitamin D 25 hydroxy Vitamin D 25 hydroxy Lab Add-On Add On for 1 Occurrences starting 04/20/2023 until 04/20/2023 [facility] Comment on above: Add On for 1 Occurrences starting 2022 until 04/20/2023 End: 04-20-2023 Zinc Transporter 8 Antibody [facility] Comment on above: Add On for 1 Occurrences starting 2022 until 04/20/2023 For lab collect this frequency defaults to the next routine lab draw time. Routine times: 0600; 1100; 1400; 1900; 2200 for 1 Occurrences starting 04/20/2023 until 04/20/2023 Zinc Transporter 8 Antibody Zinc Transporter 8 Antibody Lab Routine 04/20/2023 5:57 PM EDT [facility] Immunizations Immunization Date Immunization Notes Care Provider Fa [facility] 02-22-2024 diphtheria, tetanus toxoids and acellular pertussis vaccine, unspecified formulation Hugo Rodriguez MD Work Phone: [facility] 02-22-2024 measles, mumps and rubella virus vaccine Hugo Rodriguez MD Work Phone: [facility] 04-22-2023 influenza, injectabl e, quadrivalent, preservative free Roland Dixon MD Work Phone: [facility] 04-22-2023 Influenza Quadrivale nt vaccine 0.5 mL Roland Dixon MD Work Phone: [facility] 04-22-2023 influenza virus vacc ine, unspecified formulation Vianey Mena MD Work Phone: [facility] 02-14-2021 meningococcal B vacc ine, recombinant, OMV, adjuvanted Kelsy Tee PA-C Work Phone: [facility] Work Phone: 02-14-2021 meningococcal polysaccharide (groups A, C, Y and W-135) diphtheria toxoid conjugate vaccine (MCV4P) Kelsy Tee PA-C Work Phone: [facility] Work Phone: 02-05-2018 Human Papillomavirus 9-valent vaccine Kelsy Tee PA-C Work Phone: [facility] Work Phone: 01-30-2017 Human Papillomavirus 9-valent vaccine Kelsy CARRIZALES Work Phone: [facility] Work Phone: 01-30-2017 meningococcal polysaccharide (groups A, C, Y and W-135) diphtheria toxoid conjugate vaccine (MCV4P) Kelsyhilda CARRIZALES Work Phone: [facility] Work Phone: 01-30-2017 tetanus toxoid, redu will diphtheria toxoid, and acellular pertussis vaccine, adsorbed Kelsy CARRIZALES Work Phone: [facility] Work Phone: 03-25-2013 influenza, live, intranasal, quadrivalent Kelsy Tee DCMiguel Work Phone: [facility] Work Phone: 03-25-2013 influenza virus vacc ine, unspecified formulation Melinda Oneill APRN.CNP Work Phone: [facility] 03-26-2012 influenza virus vacc ine, live, attenuated, for intranasal use Kelsyhilda CARRIZALES Work Phone: [facility] Work Phone: 03-21-2011 influenza virus vacc ine, live, attenuated, for intranasal use Kelsyhilda CARRIZALES Work Phone: [facility] Work Phone: 04-16-2010 influenza virus vacc ine, split virus (incl. purified surface antigen) Brian Wilkinson MD Work Phone: [facility] 04-16-2010 influenza virus vacc ine, whole virus Kelsy CARRIZALES Work Phone: [facility] Work Phone: 05-18-2009 influenza virus vacc ine, split virus (incl. purified surface antigen) Brian Wilkinson MD Work Phone: [facility] 05-18-2009 influenza virus vacc ine, whole virus Kelsy Tee PA-C Work Phone: [facility] Work Phone: 05-18-2009 novel Influenza-H1N1 -09, live virus for nasal administration Kelsy Tee PA-C Work Phone: [facility] Work Phone: 05-18-2009 novel influenza-H1N1 -09, preservative-free, injectable Brian Wilkinson MD Work Phone: [facility] 01-05-2009 diphtheria, tetanus toxoids and acellular pertussis vaccine Brian Wilkinson MD Work Phone: [facility] 01-05-2009 diphtheria, tetanus toxoids and acellular pertussis vaccine, unspecified formulation Kelsy VALVERDE-Nohemy Work Phone: [facility] Work Phone: 01-05-2009 measles, mumps and rubella virus vaccine Kelsy VALVERDE-C Work Phone: [facility] Work Phone: 01-05-2009 poliovirus vaccine, inactivated Kelsy VALVERDE-Nohemy Work Phone: [facility] Work Phone: 01-05-2009 varicella virus vaccine Kelsy VALVERDE-Nohemy Work Phone: [facility] Work Phone: 07-21-2008 influenza virus vacc ine, unspecified formulation Brian Wilkinson MD Work Phone: [facility] 07-21-2008 influenza virus vacc ine, whole virus Kelsy Tee PA-C Work Phone: [facility] Work Phone: 12-29-2006 hepatitis A vaccine, pediatric/adolescent dosage, 2 dose schedule Kelsy Tee PA-C Work Phone: [facility] Work Phone: 06-02-2006 influenza virus vacc ine, unspecified formulation Brian Wilkinson MD Work Phone: [facility] 06-02-2006 influenza virus vacc ine, whole virus Kelsy Tee PA-C Work Phone: [facility] Work Phone: 06-02-2006 varicella virus vaccine Kelsy Tee PA-C Work Phone: [facility] Work Phone: 03-31-2006 diphtheria, tetanus toxoids and acellular pertussis vaccine Brian Wilkinson MD Work Phone: [facility] 03-31-2006 diphtheria, tetanus toxoids and acellular pertussis vaccine, unspecified formulation Kelsy Tee PA-C Work Phone: [facility] Work Phone: 03-31-2006 hepatitis A vaccine, pediatric/adolescent dosage, 2 dose schedule Kelsy Tee PA-C Work Phone: [facility] Work Phone: 03-31-2006 poliovirus vaccine, inactivated Kelsy Tee PA-C Work Phone: [facility] Work Phone: 01-06-2006 haemophilus influenz ae type b conjugate and Hepatitis B vaccine Kelsy Tee PA-C Work Phone: [facility] Work Phone: 01-06-2006 measles, mumps and rubella virus vaccine Kelsy Tee PA-C Work Phone: [facility] Work Phone: 01-06-2006 pneumococcal conjuga te vaccine, 7 valent Kelsy Tee PA-C Work Phone: [facility] Work Phone: 07-17-2005 diphtheria, tetanus toxoids and acellular pertussis vaccine Brian Wilkinson MD Work Phone: [facility] 07-17-2005 diphtheria, tetanus toxoids and acellular pertussis vaccine, unspecified formulation Kesly Athy PA-C Work Phone: [facility] Work Phone: 07-17-2005 haemophilus influenz ae type b vaccine, PRP-T conjugate Kelsy Athy PA-C Work Phone: [facility] Work Phone: 07-17-2005 pneumococcal conjuga te vaccine, 7 valent Kelsy Athy PA-C Work Phone: [facility] Work Phone: 04-29-2005 diphtheria, tetanus toxoids and acellular pertussis vaccine Brian Wilkinson MD Work Phone: [facility] 04-29-2005 diphtheria, tetanus toxoids and acellular pertussis vaccine, unspecified formulation Kelsy Athpearl PA-C Work Phone: [facility] Work Phone: 04-29-2005 haemophilus influenz ae type b vaccine, PRP-T conjugate Kelsy Athpearl PA-C Work Phone: [facility] Work Phone: 04-29-2005 pneumococcal conjuga te vaccine, 7 valent Kelsy Athy PA-C Work Phone: [facility] Work Phone: 04-29-2005 poliovirus vaccine, inactivated Kelsy Tee PA-C Work Phone: [facility] Work Phone: 02-25-2005 diphtheria, tetanus toxoids and acellular pertussis vaccine Brian Wilkinson MD Work Phone: [facility] 02-25-2005 diphtheria, tetanus toxoids and acellular pertussis vaccine, unspecified formulation Kelsy Athpearl PA-C Work Phone: [facility] Work Phone: 02-25-2005 haemophilus influenz ae type b conjugate and Hepatitis B vaccine Kelsy Becerrapearl NEGRO Work Phone: [facility] Work Phone: 02-25-2005 pneumococcal conjuga te vaccine, 7 valent Kelsy Nay VALVERDE-Nohemy Work Phone: [facility] Work Phone: 02-25-2005 poliovirus vaccine, inactivated Kelsy Nay VALVERDE-Nohemy Work Phone: [facility] Work Phone: 2004 hepatitis B vaccine, pediatric or pediatric/adolescent dosage Kelsy Nay NEGRO Work Phone: [facility] Work Phone: Payers Date Payer Category Payer Self-pay [id number] 2022 Medicaid HMO [employer] ODM [id number] 2021 Unknown [id number] [id number]. [id number] 2012 Unknown [id number] 2012 Unknown [id number] 2010 Medicaid [employer] [id number] 2010-Present [phone] [address] [place] [address] Medicaid [id number]. [id number] 2010 Medicaid [id number] 1.13.159.2.7.3. [id number] 2004 Unknown [id number] 2.16.840.1.126668.3.579.2.1245 2004 Unknown [id number] 2.16.840.1.683972.3.579.2.627 2004 Unknown [id number] 2.16.840.1.020498.3.579.2.903 2004 Unknown [id number] 2.16.840.1.741074.3.579.2.903 2004 Unknown [id number] 2.16840.1.625597.3.579.2.903 2004 Unknown [id number] 2.16.840.1.986914.3.579.2.903 2004 Unknown [id number] 2.16.840.1.343705.3.579.2.903 2004 Unknown [id number] 2.16.840.1.896867.3.579.2.479 2004 Unknown [id number] 2.16.840.1.415269.3.579.2.479 2004 Unknown [id number] 2.16.840.1.154267.3.579.2.479 2004 Unknown [id number] 2.16.840.1.170475.3.579.2.479 2004 Unknown [id number] 2.16.840.1.770682.3.579.2.479 2004 Unknown [id number] 2.16.840.1.834861.3.579.2.479 2004 Unknown [id number] 2.16.840.1.210025.3.579.2 2004 Unknown [id number] 2.16.840.1.658816.3.579. 2004 Unknown [id number] 2.16.840.1.711510.3.579. 2004 Unknown [id number] 2.16.840.1.809285.3.579. 2004 Unknown [id number] 2.16.840.1.996323.3.579. 2004 Unknown [id number] 2.16.840.1.476996.3.579. 2004 Unknown [id number] 2.16.840.1.722205.3.579. 2004 Unknown [id number] 2.16840.1.445647.3.579. 2004 Unknown [id number] 2.16840.1.888955.3.579. 2004 Unknown [id number] 2.16840.1.197748.3.579. 2004 Unknown [id number] 2.16840.1.389742.3.579. 2004 Unknown [id number] 2.16840.1.433283.3.579. 2004 Unknown [id number] 2.16840.1.688613.3.579. 2004 Unknown [id number] 2.16840.1.615049.3.579. 2004 Unknown [id number] 2.16.840.1.563075.3.579. 2004 Unknown [id number] 2.16840.1.671373.3.579.2 2004 Unknown [id number] 2.16.840.1.209164.3.579.2 2004 Unknown [id number] 2.16.840.1.613801.3.579.2 2004 Unknown [id number] 2.16.840.1.877113.3.579.2 2004 Unknown [id number] 2.16.840.1.462656.3.579.2 2004 Unknown [id number] 2.16.840.1.555128.3.579.2 2004 Unknown [id number] 2.16.840.1.929006.3.579. 2004 Unknown [id number] 2.16.840.1.252137.3.579. 2004 Unknown [id number] 2.16.840.1.603236.3.579. 2004 Unknown [id number] 2.16.840.1.750550.3.579. 2004 Unknown [id number] 2.16.840.1.531455.3.579. 2004 Unknown [id number] 2.16.840.1.972442.3.579.2 2004 Unknown [id number] 2.16.840.1.338114.3.579. 2004 Unknown [id number] 2.16.840.1.271203.3.579.2 2004 Unknown [id number] 2.16.840.1.689620.3.579. 2004 Unknown [id number] 2.16.840.1.637139.3.579.2 2004 Unknown [id number] 2.16.840.1.693521.3.579.2 2004 Unknown [id number] 2.840.1.182479.3.579.2 2004 Unknown [id number] 2.840.1.192392.3.579.2 2004 Unknown [id number] 2.840.1.336916.3.579.2 2004 Unknown [id number] 2.840.1.495471.3.579.2 2004 Unknown [id number] 2.840.1.289473.3.579. 2004 Unknown [id number] 2.840.1.683102.3.579. 2004 Unknown [id number] 2.0.1.744424.3.579. 2004 Unknown [id number] 2.840.1.217020.3.579. 2004 Unknown [id number] 2.840.1.711542.3.579. 2004 Unknown [id number] 2.840.1.577625.3.579. 2004 Unknown [id number] 20.1.571034.3.579.2 2004 Unknown [id number] 2.840.1.570247.3.579.2 2004 Unknown [id number] 2.840.1.015986.3.579. 2004 Unknown [id number] 2.840.1.860044.3.579.2 2004 Unknown [id number] 2.840.1.871034.3.579.2 2004 Unknown [id number] 2.16840.1.556570.3.579.247 2004 Unknown [id number] 2.16840.1.547222.3.579.2 2004 Unknown [id number] 2.16840.1.207958.3.579.247 2004 Unknown [id number] 2.16840.1.899140.3.579.247 2004 Unknown [id number] 2.16840.1.841126.3.579.247 2004 Unknown [id number] 2.840.1.847010.3.579.2 2004 Unknown [id number] 2.840.1.863478.3.579.2 2004 Unknown [id number] 2.840.1.743951.3.579.2 2004 Unknown [id number] 2.840.1.339088.3.579.2 2004 Unknown [id number] 2.840.1.752846.3.579.2 2004 Unknown [id number] 2.840.1.018619.3.579.2 2004 Unknown [id number] 2.840.1.197055.3.579.262 2004 Unknown [id number] 2.840.1.163743.3.579.2 2004 Unknown [id number] 2.16840.1.470147.3.579.262 2004 Unknown [id number] 2.16840.1.624303.3.579.262 2004 Unknown [id number] 2.16840.1.580477.3.579.2627 1985 Unknown [id number] 2.16.840.1.523466.3.579.2.479 Unknown [id number] 2.16.840.1.301295.3.579.2.462 Unknown [id number] 2.16.840.1.348210.3.579.2.462 Unknown [id number] 2.16.840.1.441869.3.579.2.462 Unknown [id number] 2.16.840.1.338465.3.579.2.462 Unknown [id number] 2.16.840.1.454092.3.579.2.462 Unknown [id number] 2.16.840.1.360950.3.579.2.462 Unknown [id number] 2.16.840.1.721024.3.579.2.462 Unknown [id number] 2.16.840.1.078600.3.579.2.462 Unknown [id number] 2.16.840.1.672911.3.579.2.462 Social History Date Type Detail Facility Start: 10-02-2011 End: 10-30-2023 Tobacco smoking status NHIS Never smoked tobacco [facility] Work Phone: Start: 10-02-2011 End: 10-30-2023 Tobacco use and exposure Smokeless tobacco non-user [facility] Work Phone: Start: 12-23-2021 End: 03-31-2025 Alcohol intake Lifetime non-drinker (finding) [facility] Start: 03-18-2019 History SDOH Alcohol Frequency 1 [facility] Start: 2004 Sex Assigned At Not on file [facility] Start: 12-13-2021 End: 06-09-2022 Exposure to SARS-CoV-2 (event) Not sure [facility] Work Phone: Start: 05-30-2022 End: 05-31-2023 Tobacco smoking status OHIS Unknown if ever smoked [facility] Start: 2004 Sex Assigned At Female W [facility] Start: 03-18-2019 End: 02-19-2024 History of Social function [facility] Work Phone: Start: 03-18-2019 End: 02-19-2024 Alcohol Use Disorder Identification Test - Consumption [AUDIT-C] [facility] Work Phone: How often to you hav e a drink containing alcohol? Never [facility] Work Phone: Start: 05-30-2012 Average Number of Drinks Not on file [facility] History of tobacco use Passive smoker [facility] Start: 03-27-2023 End: 06-01-2023 Alcohol intake Not Asked [facility] Start: 06-05-2022 Tobacco Comment Outdoors [facility] Tobacco smoking status [facility] Within the last year , have you been afraid of your partner or ex-partner? No [facility] Start: 06-22-2023 [facility] Start: 08-31-2023 Tobacco smoking stat [facility] Smokes tobacco daily [facility] History of tobacco use Cigarette Smoker A [facility] Start: 09-28-2019 End: 08-14-2023 History of tobacco use [facility] Start: 08-31-2023 Tobacco Comment Outdoors- vapi ng daily [facility] Start: 09-21-2023 End: 10-13-2023 Tobacco smoking status NHIS Ex-smoker [facility] Start: 09-28-2019 End: 08-14-2023 History of tobacco use Current smoker [facility] Start: 09-21-2023 Alcohol intake Ex-drinker (finding) [facility] (I/We) worried wheth er (my/our) food would run out before (I/we) got money to buy more. Never true [facility] Tobacco Nicotine Use: Va ping Product in Last 90 Days. Type: Electronic Cigarettes (Vaping). [facility] Start: 04-21-2023 End: 06-15-2023 Sex Female (finding) [facility] Are you now , , , , never or living with a partner? Never [facility] Do you feel stress - tense, restless, nervous, or anxious, or unable to sleep at night because your mind is troubled all the time - these days [OSQ] Not at all [facility] NEGATED: Highlighted row [facility] Medical Equipment Procedure Code Equipment Code Equipment Origin al Text Equipment Identifier Dates Cystoscopy, with retrograde pyelogram and ureteral stent insertion STENT,URETERAL PIGTAIL [id number] FDA Start: 08-19-2022 Cystoscopy, with retrograde pyelogram and ureteral stent insertion STENT,URETERAL PIGTAIL [id number] FDA Start: 08-19-2022 Cystoscopy, with retrograde pyelogram and ureteral stent insertion STENT,URETERAL PIGTAIL [id number] FDA Start: 08-19-2022 Cystoscopy, with retrograde pyelogram and ureteral stent insertion STENT,URETERAL PIGTAIL [id number] FDA Start: 08-19-2022 Cystoscopy, with retrograde pyelogram and ureteral stent insertion STENT,URETERAL PIGTAIL [id number] FDA Start: 08-19-2022 [id number] Start: 04-21-2023 End: 09-08-2024 Comment on above: Use as directed to t est metered glucose 6-8 times per day Use as directed to a dminister insulin 4-6 times per day. Use as directed to test metered glucose 6-8 times per day [id number] Start: 04-21-2023 Use as directed to administer insulin 4-6 times per day. [id number] Start: 04-21-2023 Use as directed to test metered glucose 6-8 times per day [id number] Start: 04-21-2023 Use when ill or metered glucose >250 x 2 as directed. [id number] Start: 07-16-2023 Use as directed to test metered glucose 6-8 times per day [id number] Start: 07-16-2023 Use as directed to administer insulin 4-6 times per day. [id number] Start: 07-16-2023 Use as directed to test metered glucose 6-8 times per day [id number] Start: 07-16-2023 Use as directed to test metered glucose 6-8 times per day [id number] Start: 04-21-2023 Use as directed to test metered glucose 6-8 times per day [id number] Start: 04-21-2023 Use as directed to administer insulin 4-6 times per day. [id number] Start: 06-03-2023 Use with blood glucose test 4 times daily. Insulin Dep? Yes [id number] Start: 09-08-2024 Use with blood glucose test 4 times daily. Insulin Dep? Yesday [id number] Start: 09-08-2024 Use as directed to administer insulin 4-6 times per day. [id number] Start: 09-08-2024 Goals Date Patient Goal Desired Activity /State Functional Status Date Assessment Result Facility 05-06-2025 Functional Status Independent [facility] 05-06-2025 Functional Status ID band on [facility] 05-06-2025 [facility] 05-12-2024 Functional Status Up ad ioana [facility] 05-12-2024 Functional Status [facility] 06-15-2023 Functional Status Standard Safet y ID band on, Call device within reach, Bed in low position, Wheels locked, Upper/Half-Length side-rails up, Bedside Cart Locked, Safety level maintained [facility] 08-20-2022 Functional status Bedrest [facility] Work Phone: 10-17-2013 Are you deaf, or do you have serious difficulty hearing No 10/17/2013 5:06 PM Marisol Sloan MA No [facility] 10-17-2013 Are you blind, or do you have serious difficulty seeing, even when wearing glasses No 10/17/2013 5:06 PM Marisol Sloan MA No [facility] 10-17-2013 Do you have serious difficulty walking or climbing stairs No 10/17/2013 5:06 PM Marisol Sloan MA No [facility] 10-17-2013 Do you have difficul ty dressing or bathing No 10/17/2013 5:06 PM Marisol Sloan MA No [facility] Mental Status Date Assessment Result Facility 05-06-2025 Mental Status Orientation Oriented x 4 [facility] 05-06-2025 Mental Status [facility] 05-12-2024 Mental Status Orientation Oriented x 4 [facility] 05-12-2024 Mental Status [facility] 06-15-2023 Mental Status Orientation Oriented x 4 [facility] 04-15-2023 Cognitive function Level Of Cons ciousness Awake;Alert;Appropriate;Fol lows Commands [facility] Work Phone: 01-21-2023 Cognitive function Voice/Name [facility] Work Phone: 08-20-2022 Cognitive function Voice/Name [facility] Work Phone: 08-18-2022 Cognitive function Level Of Cons ciousness Awake;Alert;Appropriate;Fol lows Commands [facility] Work Phone: 06-02-2022 Cognitive function Level Of Cons ciousness Awake;Alert;Appropriate;Fol lows Commands [facility] Work Phone: 10-17-2013 Because of a physica l, mental, or emotional condition, do you have serious difficulty concentrating, remembering, or making decisions No 10/17/2013 5:06 PM EDT Marisol Green MA No [facility] Clinical Notes 12-24-2021 to 05-06-2025 Telephone Encounter - Conchita Goodwin - 05/01/2025 8:49 AM ESTTelephone Encounter - Conchita Goodwin - 05/01/2025 8:49 AM ESTTelephone Encounter - AMAN Denise CNP - 04/17/2025 5:09 PM EDT Note Date & Type Note Facility 05-06-2025 Hospital Discharg e instructions Patient Education 05/06/2025 13:02:11 Diet for Vomiting or Diarrhea (Adult) Diet for Vomiting or Diarrhea (Adult) Your symptoms may return or get worse after eating certain foods listed below. If this happens, stop eating these foods until your symptoms ease and you feel better. Once the vomiting stops, follow the steps below. During the first 12 to 24 hours During the first 12 to 24 hours, follow this diet: Drinks. Plain water, sport drinks like electrolyte solutions, soft drinks without caffeine, mineral water (plain or flavored), clear fruit juices, and decaffeinated tea and coffee. Soups. Clear broth. Desserts. Plain gelatin, popsicles, and fruit juice bars. As you feel better, you may add 6 to 8 ounces of yogurt per day. If you have diarrhea, don't have foods or drinks that contain sugar, high-fructose corn syrup, or sugar alcohols. During the next 24 hours During the next 24 hours you may add the following to the above: Hot cereal, plain toast, bread, rolls, and crackers Plain noodles, rice, mashed potatoes, and chicken noodle or rice soup Unsweetened canned fruit (but not pineapple) and bananas Don't eat more than 15 grams of fat a day. Do this by staying away from margarine, butter, oils, mayonnaise, sauces, gravies, fried foods, peanut butter, meat, poultry, and fish. Don't eat much fiber. Stay away from raw or cooked vegetables, fresh fruits (except bananas), and bran cereals. Limit how much caffeine and chocolate you have. Do not use any spices or seasonings except salt. During the next 24 hours Slowly go back to your normal diet, as you feel better and your symptoms ease. [id number] [employer] [address] [place] [address]. All rights reserved. This information is not intended as a substitute for professional medical care. Always follow your healthcare professional's instructions. Follow Up Care 05/06/2025 10:46:19 With:Call Physician Referral Address:Unknown When:2-4 days [facility] 05-06-2025 Emergency department Discharge summary Discharge Instructions Thank you for allowing [facility] to assist you with your healthcare needs. The following is important discharge information regarding your hospital visit. Diagnosis from Today's Visit Vomiting What to Do Next Instructions from Your Care Team No qualifying data available. Post Acute Orders No qualifying data available. You Need to Schedule the Following Appointments Follow Up with Call Physician Referral When:Within 2-4 days Allergies Toradol Hives metronidazole Medications Please ask your primary doctor or pharmacist before taking any other medication not listed, including over the counter drugs, herbal medications, vitamins and or supplements as they may interact with your home medications. What How Much When Instructions Last Dose New famotidine (Pepcid 20 mg oral tablet) 1 tab(s) by mouth Two (2) times a day Printed Prescription New metoclopramide (Reglan 10 mg oral tablet) 1 tab(s) by mouth Four (4) times a day Duration: 7 Days Printed Prescription Unchanged ethinyl estradiol-etonogestrel (EnilloRing 0.12 mg-0.015 mg/ 24 hours vaginal ring) 1 Each Vaginal Every 4 weeks Insert a new ring on day 1 and use for 3 weeks, remove for 1 week, then repeat cycle Unchanged glucagon (Baqsimi One Pack 3 mg nasal powder) 1 puff(s) Intranasal As Directed as needed for Low blood sugar low blood sugar Unchanged insulin glargine (Lantus) Subcutaneous Once a day Unchanged insulin lispro (HumaLOG) (insulin lispro (Humalog) 100 units/ mL injectable solution) Unchanged Misc Medication (Omnipod 5 G6-G7 Pods (Gen 5) subcutaneous cartridge) Please take this list to your next doctor s visit. Bring all medications you take, including over the counter medications, herbals and other supplements with you to your doctor s visit. Patients and families are reminded to discard old lists and to update any records with all medication providers or retail pharmacies. Medication Leaflets metoclopramide (oral/injection) (MET oh KLOKSANA pappase) Darrian What is the most important information I should know about metoclopramide? Do not use this medicine if you've ever had muscle movement problems after using metoclopramide or similar medicines, or if you've had a movement disorder called tardive dyskinesia. You also should not use metoclopramide if you've had stomach or intestinal problems (a blockage, bleeding, or a hole or tear), epilepsy or other seizure disorder, or an adrenal gland tumor (pheochromocytoma). NEVER USE METOCLOPRAMIDE IN LARGER AMOUNTS THAN RECOMMENDED, OR FOR LONGER THAN 12 WEEKS. High doses or long-term use of metoclopramide can cause a serious movement disorder that may not be reversible. The longer you use metoclopramide, the more likely you are to develop this movement disorder. The risk of this side effect is higher in diabetics and older adults (especially women). Call your doctor at once if you have uncontrollable muscle movements in your lips, tongue, eyes, face, arms, or legs. What is metoclopramide? Metoclopramide increases muscle contractions in the upper digestive tract. This speeds up the rate at which the stomach empties into the intestines. Metoclopramide oral (taken by mouth) is used for 4 to 12 weeks to treat heartburn caused by gastroesophageal reflux in people who have used other medications without relief. Metoclopramide oral is also used to treat gastroparesis (slow stomach emptying) in people with diabetes, which can cause heartburn and stomach discomfort after meals. Metoclopramide injection is used to treat severe diabetic gastroparesis. The injection is also used to prevent nausea and vomiting caused by chemotherapy or surgery, or to aid in certain medical procedures involving the stomach or intestines. Metoclopramide may also be used for purposes not listed in this medication guide. What should I discuss with my healthcare provider before using metoclopramide? You should not use metoclopramide if you are allergic to it, or if you have: tardive dyskinesia (a disorder of involuntary movements); stomach or intestinal problems such as a blockage, bleeding, or perforation (a hole or tear in your stomach or intestines); epilepsy or other seizure disorder; an adrenal gland tumor (pheochromocytoma); or if you've ever had muscle movement problems after using metoclopramide or similar medicines. Tell your doctor if you have ever had: liver or kidney disease; problems with muscle movements; congestive heart failure or a heart rhythm disorder; high blood pressure; seizures; breast cancer; Parkinson's disease; diabetes; or depression or mental illness. This medicine may contain phenylalanine. Check the medication label if you have phenylketonuria (PKU). Tell your doctor if you are . Metoclopramide may harm an unborn baby if you use the medicine during late . It may not be safe to breast-feed a baby while you are using this medicine. Ask your doctor about any risks. Metoclopramide is not approved for use by anyone younger than 18 years old. How should I use metoclopramide? Follow the directions on your prescription label and read all medication guides. Use the medicine exactly as directed. A metoclopramide injection is given into a muscle or as an infusion into a vein. A healthcare provider will give the injection, usually during surgery, chemotherapy, or a medical procedure. Metoclopramide oral is taken for only 4 to 12 weeks. NEVER USE METOCLOPRAMIDE IN LARGER AMOUNTS THAN RECOMMENDED, OR FOR LONGER THAN 12 WEEKS. High doses or long-term use of metoclopramide can cause a serious movement disorder that may not be reversible. The longer you use metoclopramide, the more likely you are to develop this movement disorder. The risk of this side effect is higher in diabetics and older adults (especially women). Metoclopramide is usually taken 30 minutes before meals and at bedtime, or only with meals that usually cause heartburn. Follow your doctor's dosing instructions very carefully. Do not use two different forms of metoclopramide (such as tablets and oral syrup) at the same time. Measure liquid medicine carefully. Use the dosing syringe provided, or use a medicine dose-measuring device (not a kitchen spoon). To take the orally disintegrating tablet (ODT): Remove a tablet from its blister pack only when you are ready to take the tablet. Use dry hands and take care not to damage a tablet while pushing it out of the blister. Place the tablet in your mouth and allow it to dissolve, without chewing or swallowing it whole. You may sip liquid if needed to help swallow the dissolved tablet. Store at room temperature in a tightly-closed container, away from moisture and heat. Keep the bottle tightly closed. After you stop taking metoclopramide, you may have unpleasant withdrawal symptoms such as headache, dizziness, or nervousness. What happens if I miss a dose? Take the medicine as soon as you can, but skip the missed dose if it is almost time for your next dose. Do not take two doses at one time. What happens if I overdose? Seek emergency medical attention or call the Poison Help line at . Overdose symptoms may include drowsiness, confusion, or uncontrolled muscle movements. What should I avoid while taking metoclopramide? Drinking alcohol with this medicine can cause side effects. Avoid driving or hazardous activity until you know how this medicine will affect you. Your reactions could be impaired. What are the possible side effects of metoclopramide? Get emergency medical help if you have signs of an allergic reaction: hives; difficult breathing; swelling of your face, lips, tongue, or throat. Stop taking metoclopramide and call your doctor at once if you have any of these SIGNS OF A SERIOUS MOVEMENT DISORDER, which may occur within the first 2 days of treatment: tremors or shaking in your arms or legs; uncontrolled muscle movements in your face (chewing, lip smacking, frowning, tongue movement, blinking or eye movement); or any new or unusual muscle movements you cannot control. Call your doctor at once if you have: confusion, depression, thoughts of suicide or hurting yourself; slow or jerky muscle movements, problems with balance or walking; mask-like appearance in your face; a seizure; anxiety, agitation, jittery feeling, trouble staying still, trouble sleeping; swelling, feeling short of breath, rapid weight gain; or severe nervous system reaction--very stiff (rigid) muscles, high fever, sweating, confusion, fast or uneven heartbeats, tremors, feeling like you might pass out. Common side effects may include: feeling restless; feeling drowsy or tired; lack of energy; nausea, vomiting; headache, confusion; or sleep problems (insomnia). This is not a complete list of side effects and others may occur. Call your doctor for medical advice about side effects. You may report side effects to FDA at 5-314-GTV-8855. What other drugs will affect metoclopramide? Using metoclopramide with other drugs that make you drowsy can worsen this effect. Ask your doctor before you take opioid pain medication, a sleeping pill, a muscle relaxer, or medicine for anxiety, depression, or seizures. Tell your doctor about all your current medicines. Many drugs can affect metoclopramide, especially: an antidepressant; antipsychotic medication; blood pressure medication; insulin; medicine to treat Parkinson's disease or restless leg syndrome; or an MAO inhibitor--isocarboxazid, linezolid, methylene blue injection, phenelzine, tranylcypromine, and others. This list is not complete and many other drugs may affect metoclopramide. This includes prescription and stib-fgs-ykhgxdb medicines, vitamins, and herbal products. Not all possible drug interactions are listed here. Where can I get more information? Your pharmacist can provide more information about metoclopramide. Remember, keep this and all other medicines out of the reach of children, never share your medicines with others, and use this medication only for the indication prescribed. Every effort has been made to ensure that the information provided by [employer]. [employer]') is accurate, up-to-date, and complete, but no guarantee is made to that effect. Drug information contained herein may be time sensitive. [employer] information has been compiled for use by healthcare practitioners and consumers in the [place] and therefore [employer] does not warrant that uses outside of the [place] are appropriate, unless specifically indicated otherwise. [employer] drug information does not endorse drugs, diagnose patients or recommend therapy. [employer] drug information is an informational resource designed to assist licensed healthcare practitioners in caring for their patients and/or to serve consumers viewing this service as a supplement to, and not a substitute for, the expertise, skill, knowledge and judgment of healthcare practitioners. The absence of a warning for a given drug or drug combination in no way should be construed to indicate that the drug or drug combination is safe, effective or appropriate for any given patient. [employer] does not assume any responsibility for any aspect of healthcare administered with the aid of information [employer] provides. The information contained herein is not intended to cover all possible uses, directions, precautions, warnings, drug interactions, allergic reactions, or adverse effects. If you have questions about the drugs you are taking, check with your doctor, nurse or pharmacist. Copyright 0944-9686 [employer]. Version: 14.. Revision Date: 02/04/2023. famotidine (oral/injection) (fam OH ti darren) Heartburn Relief, Pepcid, Pepcid AC, Pepcid AC Maximum Strength, Zantac 360 What is the most important information I should know about famotidine? Follow all directions on the label and package. Use exactly as directed. What is famotidine? Famotidine is used to treat and prevent ulcers in the stomach and intestines. It also treats conditions in which the stomach produces too much acid, such as Selena-Benson syndrome. Famotidine also treats gastroesophageal reflux disease (GERD) and other conditions in which acid backs up from the stomach into the esophagus, causing heartburn. The Zantac 360 brand of this medicine does not contain ranitidine, a medicine that was withdrawn from market in the [place]. Famotidine may also be used for purposes not listed in this medication guide. What should I discuss with my healthcare provider before taking famotidine? Heartburn can feel like a heart attack. Get emergency medical help if you have chest pain that spreads to your jaw or shoulder. You should not use this medicine if you are allergic to famotidine or similar medicines such as ranitidine (Zantac), cimetidine (Tagamet), or nizatidine (Axid). Ask a doctor or pharmacist if this medicine is safe to use if you have: kidney disease; liver disease; cancer stomach; or long QT syndrome (in you or a family member). Ask a doctor before using this medicine if you are or . How should I take famotidine? Use exactly as directed on the label, or as prescribed by your doctor. Famotidine oral is taken by mouth. Famotidine injection is given in a vein if you are unable to take the medicine by mouth. You may take famotidine oral with or without food. Measure liquid medicine with the supplied syringe or a dose-measuring device (not a kitchen spoon). Most ulcers heal within 4 weeks of famotidine treatment, but it may take up to 8 weeks of using this medicine before your ulcer heals. Keep using the medication as directed. Call your doctor if the condition you are treating with famotidine does not improve, or if it gets worse while using famotidine. Your treatment may also include changes in diet or lifestyle habits. Follow all instructions of your doctor or dietitian. Store at room temperature away from moisture, heat, and light. Do not allow the liquid medicine to freeze. Throw away any unused famotidine liquid that is older than 30 days. What happens if I miss a dose? Take the medicine as soon as you can, but skip the missed dose if it is almost time for your next dose. Do not take two doses at one time. What happens if I overdose? Seek emergency medical attention or call the Poison Help line at . What should I avoid while taking famotidine? Drinking alcohol may increase the risk of damage to your stomach. Avoid taking other stomach acid reducers unless your doctor has told you to. However, you may take an antacid (such as Maalox, Mylanta, Gaviscon, Milk of Magnesia, Rolaids, or Tums) with famotidine. What are the possible side effects of famotidine? Get emergency medical help if you have signs of an allergic reaction: hives; difficult breathing; swelling of your face, lips, tongue, or throat. Stop using famotidine and call your doctor at once if you have: confusion, hallucinations, agitation, lack of energy; a seizure; fast or pounding heartbeats, sudden dizziness (like you might pass out); or unexplained muscle pain, tenderness, or weakness especially if you also have fever, unusual tiredness, and dark colored urine. Some side effects may be more likely in older adults and in people who have severe kidney disease. Common side effects may include: headache; dizziness; or constipation or diarrhea. This is not a complete list of side effects and others may occur. Call your doctor for medical advice about side effects. You may report side effects to FDA at 9-275-OCD-4361. What other drugs will affect famotidine? Famotidine oral can make it harder for your body to absorb other medicines you take by mouth. Tell your doctor if you are taking: cefditoren; dasatinib; delavirdine; fosamprenavir; or tizanidine (if you are taking famotidine liquid). This list is not complete. Other drugs may affect famotidine, including prescription and euqg-lae-gubxddq medicines, vitamins, and herbal products. Not all possible drug interactions are listed here. Where can I get more information? Your doctor or pharmacist can provide more information about famotidine. Remember, keep this and all other medicines out of the reach of children, never share your medicines with others, and use this medication only for the indication prescribed. Every effort has been made to ensure that the information provided by [employer]') is accurate, up-to-date, and complete, but no guarantee is made to that effect. Drug information contained herein may be time sensitive. [employer] information has been compiled for use by healthcare practitioners and consumers in the [place] and therefore [employer] does not warrant that uses outside of the [place] are appropriate, unless specifically indicated otherwise. [employer] drug information does not endorse drugs, diagnose patients or recommend therapy. [employer] drug information is an informational resource designed to assist licensed healthcare practitioners in caring for their patients and/or to serve consumers viewing this service as a supplement to, and not a substitute for, the expertise, skill, knowledge and judgment of healthcare practitioners. The absence of a warning for a given drug or drug combination in no way should be construed to indicate that the drug or drug combination is safe, effective or appropriate for any given patient. [facility] does not assume any responsibility for any aspect of healthcare administered with the aid of information [employer] provides. The information contained herein is not intended to cover all possible uses, directions, precautions, warnings, drug interactions, allergic reactions, or adverse effects. If you have questions about the drugs you are taking, check with your doctor, nurse or pharmacist. Copyright 7791-2430 [facility] [employer]. Version: . Revision Date: 01/19/2023. Education Materials Diet for Vomiting or Diarrhea (Adult) Your symptoms may return or get worse after eating certain foods listed below. If this happens, stop eating these foods until your symptoms ease and you feel better. Once the vomiting stops, follow the steps below. During the first 12 to 24 hours During the first 12 to 24 hours, follow this diet: Drinks. Plain water, sport drinks like electrolyte solutions, soft drinks without caffeine, mineral water (plain or flavored), clear fruit juices, and decaffeinated tea and coffee. Soups. Clear broth. Desserts. Plain gelatin, popsicles, and fruit juice bars. As you feel better, you may add 6 to 8 ounces of yogurt per day. If you have diarrhea, don't have foods or drinks that contain sugar, high-fructose corn syrup, or sugar alcohols. During the next 24 hours During the next 24 hours you may add the following to the above: Hot cereal, plain toast, bread, rolls, and crackers Plain noodles, rice, mashed potatoes, and chicken noodle or rice soup Unsweetened canned fruit (but not pineapple) and bananas Don't eat more than 15 grams of fat a day. Do this by staying away from margarine, butter, oils, mayonnaise, sauces, gravies, fried foods, peanut butter, meat, poultry, and fish. Don't eat much fiber. Stay away from raw or cooked vegetables, fresh fruits (except bananas), and bran cereals. Limit how much caffeine and chocolate you have. Do not use any spices or seasonings except salt. During the next 24 hours Slowly go back to your normal diet, as you feel better and your symptoms ease. 9017-6594 [employer]. [address] [place] [address]. All rights reserved. This information is not intended as a substitute for professional medical care. Always follow your healthcare professional's instructions. Additional Information VACCINATE! IT SAVES LIVES! Members of the community who have not yet received the COVID-19 vaccine and would like to receive it can visit one of [facility] vaccine clinics. There are many vaccine clinic locations within the [facility]. For locations and available times, please visit [email or web address] It is important to note that some COVID mobile vaccine clinics are held outdoors and may be canceled in rainy or stormy conditions. To learn more about pediatric vaccinations (ages 5-11), we invite you to visit the [facility] webpage. [email or web address] To learn more about the COVID-19 vaccine, we invite you to visit the CDC website for a list of frequently asked questions. https://www.cdc.gov/coronavirus/ 2019-ncov/vaccines/faq.html [facility] Patient Portal Access Instructions: Stay connected with your healthcare team and access your personal medical information anytime with the [facility] Patient Portal. If you would like a full copy of your medical records please contact the [facility] Medical Records Department Thursday through Thursday between 8a.m. and 4:30p.m. Please follow the directions below to access the portal: 1.Access the email account you provided upon registration to the [facility].2.Look for an invitation email from [facility].3.Open the email and access the invitation link: Accept Invitation to [facility]4.Fill in the required heck to create your account. To access your account, visit [email or web address] or scan the 1SDK code above. Click the blue button labeled Access Patient Portal and then log in with the username and password that you created in the steps above. You can then view a summary of results, a summary of your visits, and the ability to download your summaries to your computer or send the information securely to a physician. Remember that your healthcare information is confidential, so carefully consider who you will allow to register on the [facility] Patient Portal for access to your information. You can also access the [facility] Patient Portal on the [employer]. Simply click on Health Records under Health Data and then click on the [employer] logo. HOW TO SAFELY DISPOSE OF PRESCRIPTION MEDICATIONS Please use one of the following methods to safely dispose of your unused medications. 1.Use a drug disposal kit: the drug disposal pouch allows you to safely discard your old and unused drugs. Ask your nurse to give you one when you are discharged.2.Visit a local take-back location: Many local pharmacies and police departments have programs that collect old and unwanted prescription drugs. Call your local pharmacy or go to http://mobileo.PopSeal/0Z6Qc4c to find one close to you.3.Make use of household items: Use cat litter or old coffee grounds to dispose medications if other options are not available. Mix your drugs with these household products, seal them in an airtight container and throw it into the garbage. Call [facility]: [phone] to be sure your drugs can be disposed of in this way. Some medicines may require a different approach.4.Never flush your medications down the toilet. IF YOU HAVE BEEN PRESCRIBED AN OPIOIDS FOR PAIN If you have been prescribed an opioid (such as hydrocodone, oxycodone or morphine), it is critical to understand the possible side effects and risks of opioid pain medications. Even when taken as directed, opioids can have several side effects including: Tolerance, meaning you might need to take more of a medication for the same pain relief. Nausea, vomiting and/or constipation. Sleepiness, dizziness, dry mouth, confusion, depression or itching. Physical dependence, meaning you have withdrawal symptoms when a medication is stopped ? this can develop within a few days. KNOW YOUR RESPONSIBILITIES It is important to know exactly how much and how often to take the opioid pain medications you are prescribed. Never take opioids in higher amounts or more often than prescribed. Do not combine opioids with alcohol or other drugs that cause drowsiness, such as benzodiazepines, also known as benzos, including diazepam and alprazolam, muscle relaxants or sleep aids. Never sell or share prescription opioids. This is illegal. Store opioids in a secure place and out of reach of others (including children, family, friends and visitors). The last page(s) of this document has been signed and retained as a CHART COPY Signatures Patient Education Materials Diet for Vomiting or Diarrhea (Adult) Medication Leaflets metoclopramide (oral/injection), famotidine (oral/injection) My discharge plan and instructions have been reviewed and explained to me and I,CATALINA CAPELLAN understand my current condition and have read and understand these discharge instructions. I have received a written copy of the plan/instructions. If I have questions, I am aware that I should contact my doctor. 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 The patient: declined Patient had labs drawn for HCG, Quantitative (Lt green tube) Drawn from right arm and patient tolerated well. One attempt Images from the original note were not included. Chief Complaint Patient presents with Follow-up Spotting during early Patient's last menstrual period was 02/09/2025 (exact date). 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 ROS: Review of Systems Constitutional: Negative. HENT: Negative. Respiratory: Negative. Cardiovascular: Negative. Gastrointestinal: Negative. Genitourinary: Positive for vaginal bleeding. Neurological: Negative. Physical exam: BP 120/82 Pulse 96 Temp 36.8 C (98.2 F) Ht 5' 6 (1.676 m) Wt 160 lb (72.6 kg) LMP 02/09/2025 (Exact Date) Unknown BMI 25.82 kg/m Physical Exam Constitutional: Appearance: Normal appearance. HENT: Head: Normocephalic and atraumatic. Pulmonary: Effort: Pulmonary effort is normal. Genitourinary: General: Normal vulva. Exam position: Lithotomy position. Vagina: Normal. Cervix: Normal. Uterus: Normal. Adnexa: Right adnexa normal and left adnexa normal. Musculoskeletal: General: Normal range of motion. Skin: General: Skin is warm and dry. Neurological: Mental Status: She is alert. Assessment and Plan: Catalina was seen today for follow-up. Diagnoses and all orders for this visit: Bleeding in early (HHS/HCC) (Primary) - Vaginitis Panel MVP PCR - Chlamydia/Gonorrhea - US OB less than 14 weeks early; Future - hCG, quantitative Vaginal discharge - Vaginitis Panel MVP PCR - Chlamydia/Gonorrhea No follow-ups on file. [1] No Known Allergies [2] Current Outpatient Medications: cholecalciferol (Vitamin D3) 25 MCG (1000 UT) tablet, Take by mouth daily., Disp: , Rfl: insulin lispro (HumaLOG) 100 UNIT/ML patient supplied pump, Inject under the skin continuous., Disp: , Rfl: multivitamin () 27-0.8 MG tablet, Take 1 tablet by mouth daily., Disp: 90 tablet, Rfl: 4 NIFEdipine XL (Procardia XL) 30 MG 24 hr tablet, Take 2 tablets (60 mg) by mouth Nightly. Do not crush, chew, or split., Disp: 60 tablet, Rfl: 0 Vit-Fe Fumarate-FA ( 1+1 PO), Take 1 tablet by mouth daily., Disp: , Rfl: documented in this encounter [facility] 04-26-2025 Telephone encounter Note Call made to patient. Added on for tomorrow. ED precautions reviewed. Patient verbalized understanding. [facility] 04-26-2025 Miscellaneous Notes Call made to patient. Added on for tomorrow. ED precautions reviewed. Patient verbalized understanding. Addended by: FAZAL ESPARZA on: 04/14/2025 04:49 PM Modules accepted: Orders Addended by: ASHLYN ABRAHAM on: 04/12/2025 10:39 AM Modules accepted: Orders I would advise another repeat HCG quant at [facility]. I placed an order. I am not sure what you want to do..another appointment? Please advise Thanks! documented in this encounter [facility] 04-17-2025 Telephone encounter Note + HCG from [facility] Call patient and schedule confirmation visit next available [facility] 04-14-2025 Note Addended by: FAZAL ESPARZA on: 04/14/2025 04:49 PM Modules accepted: Orders [facility] 04-14-2025 Note Addended by: FAZAL ESPARZA on: 04/14/2025 04:49 PM Modules accepted: Orders [facility] 04-14-2025 Note Addended by: FAZAL ESPARZA on: 04/14/2025 04:49 PM Modules accepted: Orders [facility] 04-14-2025 Note Addended by: FAZAL ESPARZA on: 04/14/2025 04:49 PM Modules accepted: Orders [facility] 04-14-2025 Note Addended by: FAZAL ESPARZA on: 04/14/2025 04:49 PM Modules accepted: Orders [facility] 04-14-2025 Note Addended by: FAZAL ESPARZA on: 04/14/2025 04:49 PM Modules accepted: Orders [facility] 04-14-2025 Note Addended by: FAZAL ESPARZA on: 04/14/2025 04:49 PM Modules accepted: Orders [facility] 04-14-2025 Miscellaneous Notes Addended by: FAZAL ESPARZA on: 04/14/2025 04:49 PM Modules accepted: Orders Addended by: ASHLYN ABRAHAM on: 04/12/2025 10:39 AM Modules accepted: Orders I would advise another repeat HCG quant at [facility]. I placed an order. I am not sure what you want to do..another appointment? Please advise Thanks! documented in this encounter [facility] 04-12-2025 Note Addended by: ASHLYN ABRAHAM on: 04/12/2025 10:39 AM Modules accepted: Orders [facility] 04-12-2025 Note Addended by: ASHLYN ABRAHAM on: 04/12/2025 10:39 AM Modules accepted: Orders [facility] 04-12-2025 Note Addended by: ASHLYN ABRAHAM on: 04/12/2025 10:39 AM Modules accepted: Orders [facility] 04-12-2025 Note Addended by: ASHLYN ABRAHAM on: 04/12/2025 10:39 AM Modules accepted: Orders [facility] 04-12-2025 Note Addended by: ASHLYN ABRAHAM on: 04/12/2025 10:39 AM Modules accepted: Orders [facility] 04-12-2025 Note Addended by: ASHLYN ABRAHAM on: 04/12/2025 10:39 AM Modules accepted: Orders [facility] 04-12-2025 Note Addended by: ASHLYN ABRAHAM on: 04/12/2025 10:39 AM Modules accepted: Orders [facility] 04-12-2025 Note Addended by: ASHLYN ABRAHAM on: 04/12/2025 10:39 AM Modules accepted: Orders T [facility] 04-12-2025 Note Addended by: ASHLYN ABRAHAM on: 04/12/2025 10:39 AM Modules accepted: Orders [facility] 04-12-2025 Note Addended by: ASHLYN ABRAHAM on: 04/12/2025 10:39 AM Modules accepted: Orders [facility] 04-12-2025 Note Addended by: ASHLYN ABRAHAM on: 04/12/2025 10:39 AM Modules accepted: Orders [facility] 04-12-2025 Miscellaneous Notes Addended by: ASHLYN ABRAHAM on: 04/12/2025 10:39 AM Modules accepted: Orders I would advise another repeat HCG quant at [facility]. I placed an order. I am not sure what you want to do..another appointment? Please advise Thanks! documented in this encounter [facility] 04-12-2025 Telephone encounter Note I would advise another repeat HCG quant at [facility]. I placed an order. [facility] 04-12-2025 Telephone encounter Note I am not sure what you want to do..another appointment? Please advise Thanks! [facility] 04-10-2025 Note HNO ID: [id number] Author: ASHELY CHAMBERS PA Service: ? Author Type: Physician Candy Feeder Type: Progress Notes Filed: 04/10/2025 15:56 Note Text: URGENT CARE [place] Capellan is a 19 year old female. Patient presents with: Cough: Sinus pressure, drainage, ISHMAEL ear pain x 1.5 weeks test HPI The patient is a 19-year-old female with a history of diabetes mellitus, presenting for evaluation of sinus symptoms and a positive home test. Sinus Symptoms: - Onset approximately one week ago. - Reports congestion and a really bad cough. - Describes a burning sensation in the sinuses. - No fevers noted. - No medications taken for symptom relief. : - Positive home test last night; previous tests were negative. - Last menstrual period was January - Recent OB visit 03/31 with a negative blood and urine test for . - Noted a small amount of pink vaginal discharge a few days ago, with increased discharge overall. No bleeding or pink discharge since. - No abd pain, pelvic pain. - Has not started vitamins. Diabetes Mellitus: - Reports feeling like blood sugar is low during the visit. Drinking juice. - Monitoring blood sugar levels at home. Have been normal. Review of Systems Constitutional: (+) fever Ears/Nose/Mouth/Throat: (+) nasal congestion, (+) nasal burning, (+) facial pain Respiratory: (+) cough Genitourinary: (+) increased vaginal discharge Objective BP 100/64 Pulse 106 Temp 36.9 ?C (98.5 ?F) Resp 19 Wt 72.5 kg (159 lb 13.3 oz) LMP 02/09/2025 (Exact Date) SpO2 98% No BMI 25.80 kg/m? Physical Exam General: Not in acute distress, normal appearance, well-developed, not toxic-appearing HEENT - Eyes: Conjunctivae normal - Ears: Right ear: Tympanic membrane normal, ear canal normal; Left ear: Tympanic membrane normal, ear canal normal - Nose/Sinuses: Maxillary Sinus tenderness - Oropharynx: Mucous membranes moist, oropharynx clear, uvula midline Cardiovascular - Rate/Rhythm: Normal rate and regular rhythm - Heart Sounds: Normal heart sounds Pulmonary - Lung Sounds: Normal breath sounds - Respiratory Effort: Pulmonary effort normal Neurologic - Mental Status: Alert Skin: Skin warm and dry Lymphatic - Cervical: No cervical adenopathy { 1. Missed menses (N92.6) 2. , unspecified gestational age (HCC) (Z34.90) - Positive home test last night after previously negative blood test at OB visit. - Urine HCG here POSITIVE - Advised patient to restart vitamins. - Advised patient to call OB and schedule a follow-up appointment. 3. Bacterial sinusitis (J32.9) - Symptoms began one week ago, including congestion, burning sensation, and severe cough. - Lungs clear on exam. - Start Augmentin; patient has no allergies to amoxicillin. - May use Zyrtec and saline nasal spray for symptom relief. Recording using [employer] software for draft documentation of the visit was discussed with the patient/authorized resources representative; all questions welcomed and answered. Patient/authorized resources representative agreed to proceed Diagnosis and treatment plan were discussed and questions were answered to the patient's satisfaction. Pt acknowledged understanding of concepts and follow up plan. Specific signs and symptoms that would indicate the need for higher level of care were discussed in detail warranting prompt ER evaluation. History and Record Review External record(s) reviewed: prior outpatient record. Findings from review of outpatient records: seen 03/31 Differential Diagnoses - sinusitis is more likely for the following reason(s): suggested by HANDP - is more likely for the following reason(s): suggested by HANDP and consistent with laboratory studies Disposition The patient was discharged. Procedures [facility] 03-31-2025 Telephone encounter Note Phone call to patient Reviewed negative HCG Reviewed elevated blood sugar 296 She verb under Discussed with patient risk of DKA with large ketones in office today with elevated blood sugar Discussed need for emergency treatment Instructed patient to contact her information developer educational psychologist for the group for instructions as they may want her seen in the ED this evening and not to wait the weekend Pt verb under. [facility] 03-31-2025 Miscellaneous Notes Phone call to patient Reviewed negative HCG Reviewed elevated blood sugar 296 She verb under Discussed with patient risk of DKA with large ketones in office today with elevated blood sugar Discussed need for emergency treatment Instructed patient to contact her information developer educational psychologist for the group for instructions as they may want her seen in the ED this evening and not to wait the weekend Pt verb under. documented in this encounter [facility] 03-31-2025 History of Presen t illness Narrative A oracle specialist was offered to be present during her exam. The patient: declined Stan on patients left arm, patient tolerated well. Chief Complaint Patient presents with New Patient No concerns Patient's last menstrual period was 02/09/2025 (exact date). Allergies: Allergies[1] Medications: Current Medications[2] HPI: HPI Here to confirm Denies bleeding or pain Urine HCG in office negative History of diabetes Blood sugars not in control per patient ROS: Review of Systems Constitutional: Negative. HENT: Negative. Respiratory: Negative. Genitourinary: Positive for menstrual problem. Physical exam: BP 128/83 Pulse 88 Temp 36.6 C (97.8 F) Ht 5' 6 (1.676 m) Wt 152 lb (68.9 kg) LMP 02/09/2025 (Exact Date) No BMI 24.53 kg/m Physical Exam Constitutional: Appearance: Normal appearance. HENT: Head: Normocephalic and atraumatic. Pulmonary: Effort: Pulmonary effort is normal. Musculoskeletal: General: Normal range of motion. Skin: General: Skin is warm and dry. Neurological: Mental Status: She is alert. Assessment and Plan: Catalina was seen today for new patient. Diagnoses and all orders for this visit: Missed menses (Primary) - POC , urine - hCG, quantitative - multivitamin () 27-0.8 MG tablet; Take 1 tablet by mouth daily. test positive Hyperglycemia due to type 1 diabetes mellitus (HCC) - POCT Ketone, urine manually resulted - Comprehensive metabolic panel Follow up if symptoms worsen or fail to improve. [1] No Known Allergies [2] Current Outpatient Medications: cholecalciferol (Vitamin D3) 25 MCG (1000 UT) tablet, Take by mouth daily., Disp: , Rfl: insulin lispro (HumaLOG) 100 UNIT/ML patient supplied pump, Inject under the skin continuous., Disp: , Rfl: multivitamin () 27-0.8 MG tablet, Take 1 tablet by mouth daily., Disp: 90 tablet, Rfl: 4 NIFEdipine XL (Procardia XL) 30 MG 24 hr tablet, Take 2 tablets (60 mg) by mouth Nightly. Do not crush, chew, or split., Disp: 60 tablet, Rfl: 0 Vit-Fe Fumarate-FA ( 1+1 PO), Take 1 tablet by mouth daily., Disp: , Rfl: documented in this encounter [facility] 03-22-2025 Note HNO ID: [id number] Author: ?, ?, ? Service: ? Author Type: ? Type: Progress Notes Filed: 03/22/2025 07:32 Note Text: POPULATION HEALTH NAVIGATION OUTREACH Action/FYI Pcp wq- Patient responded via Flash Auto Detailinghart agreeable to next available appt with dr papi castañeda [facility]. Scheduled appt to est w/pcp Updated pcp field Linked referral Sent mychart message to patient regarding appt information Reason for Outreach Returned Call/MyChart Patient Contacted: Spoke to patient/parent/or legal guardian Patient identified by name and date of : Yes Returned call/MyChart actions taken: Patient scheduled/pended orders: Establish Care Appointment 04/11/2025 in [facility] with KOURTNEY SHERMAN - 1 MO OV-DM 04/27/2025 in [facility] with PAPI CASTAÑEDA - establish care MyChart message sent PCP field updated Navigation Signature: Franko Hoskins Population Health Navigator March 22, 2025 7:30 AM [facility] 03-14-2025 Telephone encounter Note Left message to return call to office. She needs to speak to nurse re: report of glucose >800 and kidney pain per [employer] message sent 03/13/2025. Our office has no recent Omnipod/Dexcom data for her blood sugars or insulin requirements. Questions for Pt: 1) How is she currently checking her blood sugar? 2) How is she currently treating her high glucose levels? 3) Further explanation of kidney pain - UTI, other infection, etc? Next OV with Dr. Sherman: 04/11/2025 After reviewing Pt's chart, she currently has no PCP but is trying to obtain one. Dr. Sherman is out of the office until 04/10/2025. She will need to seek evaluation in ED if her glucose remains difficult to manage with signs/symptoms of kidney pain or UTI. Jairo Michael RN March 14, 2025 8:42 AM [facility] 03-14-2025 Miscellaneous Notes Left message to return call to office. She needs to speak to nurse re: report of glucose >800 and kidney pain per [employer] message sent 03/13/2025. Our office has no recent Omnipod/Dexcom data for her blood sugars or insulin requirements. Questions for Pt: 1) How is she currently checking her blood sugar? 2) How is she currently treating her high glucose levels? 3) Further explanation of kidney pain - UTI, other infection, etc? Next OV with Dr. Sherman: 04/11/2025 After reviewing Pt's chart, she currently has no PCP but is trying to obtain one. Dr. Sherman is out of the office until 04/10/2025. She will need to seek evaluation in ED if her glucose remains difficult to manage with signs/symptoms of kidney pain or UTI. Jairo Michael RN March 14, 2025 8:42 AM documented in this encounter [facility] 03-14-2025 Telephone encounter Note No Glooko/Omnipod data or Dexcom data since December 2024. Left Pt a message on her cell phone to return call to the office to be triaged to evaluate the need for ED visit. Jairo Michael RN March 14, 2025 8:33 AM [facility] 03-14-2025 Miscellaneous Notes No Glooko/Omnipod data or Dexcom data since December 2024. Left Pt a message on her cell phone to return call to the office to be triaged to evaluate the need for ED visit. Jairo Michael RN March 14, 2025 8:33 AM documented in this encounter [facility] 03-14-2025 Note HNO ID: [id number] Author: ?, ?, ? Service: ? Author Type: ? Type: Progress Notes Filed: 03/14/2025 07:19 Note Text: POPULATION HEALTH NAVIGATION OUTREACH Action/FYI Pcp wq- Patient sent me Flash Auto Detailinghart message stating would like to est w/pcp. Sent mychart to patient [facility] first available and will wait until patient responds. First available is mid April with dr papi castañeda. Reason for Outreach Returned Call/MyChart Patient Contacted: Spoke to patient/parent/or legal guardian Patient identified by name and date of : Yes Returned call/MyChart actions taken: [employer] message sent Navigation Signature: Franko Hoskins Population Health Navigator March 14, 2025 7:18 AM [facility] 03-13-2025 Telephone encounter Note S: Patient spoke with CAC nurse regarding problem-4 weeks-vaginal bleeding/clots B: Onset of symptoms/concern 3 days A: Patient reports (+) home test x 3, large amount of vaginal bleeding, clots, mild intermittent abdominal pain. Denies fever. Patient states she needs appointment to determine if she skinny risk so she can be seen at [facility]. 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 R: Patient advised to be evaluated in emergency room. Patient verbalized understanding will go to ED in [place]. No further needs at this time. Reason for Disposition Intermittent lower abdominal pain (e.g., cramping) lasting > 24 hours Protocols used: - Vaginal Bleeding Less Than 20 Weeks [id number] [facility] 03-13-2025 Miscellaneous Notes S: Patient spoke with [facility] nurse regarding problem-4 weeks-vaginal bleeding/clots B: Onset of symptoms/concern 3 days A: Patient reports (+) home test x 3, large amount of vaginal bleeding, clots, mild intermittent abdominal pain. Denies fever. Patient states she needs appointment to determine if she skinny risk so she can be seen at [facility]. 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 R: Patient advised to be evaluated in emergency room. Patient verbalized understanding will go to ED in [place]. No further needs at this time. Reason for Disposition Intermittent lower abdominal pain (e.g., cramping) lasting > 24 hours Protocols used: - Vaginal Bleeding Less Than 20 Weeks [id number] documented in this encounter [facility] 03-13-2025 Note HNO ID: [id number] Author: ?, ?, ? Service: ? Author Type: ? Type: Progress Notes Filed: 03/13/2025 14:22 Note Text: POPULATION HEALTH NAVIGATION OUTREACH Action/FYI Pcp wq- Patient replied via [employer] message. Patient states her previous pcp is I sent mychart message back asking if she wanted to establish with an adult pcp with [facility]? Will wait for patient response Reason for Outreach Returned Call/MyChart Patient Contacted: Spoke to patient/parent/or legal guardian Patient identified by name and date of : Yes Returned call/MyChart actions taken: MyChart message sent Navigation Signature: Franko Hoskins Population Health Navigator March 13, 2025 2:19 PM [facility] 03-09-2025 Note HNO ID: [id number] Author: ?, ?, ? Service: ? Author Type: ? Type: Progress Notes Filed: 03/09/2025 08:53 Note Text: POPULATION HEALTH NAVIGATION OUTREACH Action/FYI Pcp wq- Lvm/sent mychart to est w/pcp Reason for Outreach Attribution: Consult to Primary Care Care Gaps due: Establish Care Appointment Patient Contacted: Unable or unnecessary to reach patient: Left message MyChart message sent Navigation Signature: Franko Hoskins Population Health Navigator March 09, 2025 8:51 AM [facility] 03-09-2025 History of Presen t illness Narrative POPULATION HEALTH NAVIGATION OUTREACH Action/FYI Pcp wmilvia- Lvjada/sent mychart to est w/pcp Reason for Outreach Attribution: Consult to Primary Care Care Gaps due: Establish Care Appointment Patient Contacted: Unable or unnecessary to reach patient: Left message MyChart message sent Navigation Signature: Franko Hoskins Population Health Navigferoz March 09, 2025 8:51 AM documented in this encounter [facility] 03-09-2025 Note Patient Outreach (NE TNAV) CATALINA CAPELLAN ([id number]) 3 F Date Time Provider Department 03/09/25 FRANKO HOSKINSV During your visit today, we recorded the following information about you: [facility] Franko Rolle 03/09/2025 8:53 AM Signed POPULATION HEALTH NAVIGATION OUTREACH Action/FYI Pcp carloz Alvarez/sent mychart to est w/pcp Reason for Outreach Attribution: Consult to Primary Care Care Gaps due: Establish Care Appointment Patient Contacted: Unable or unnecessary to reach patient: Left message [employer] message sent Navigation Signature: Franko Hoskins Population Health Navigferoz March 09, 2025 8:51 AM [facility] Franko Rolle 03/13/2025 2:22 PM Signed POPULATION HEALTH NAVIGATION OUTREACH Action/FYI Pcp wq- Patient replied via mychart message. Patient states her previous pcp is I sent mychart message back asking if she wanted to establish with an adult pcp with [facility]? Will wait for patient response Reason for Outreach Returned Call/MyChart Patient Contacted: Spoke to patient/parent/or legal guardian Patient identified by name and date of : Yes Returned call/MyChart actions taken: MyChart message sent Navigation Signature: Franko Hoskins Population Health Navigator March 13, 2025 2:19 PM [facility] Population Health NavigatorFranko Khurram 03/14/2025 7:19 AM Signed POPULATION HEALTH NAVIGATION OUTREACH Action/FYI Pcp wq- Patient sent me mychart message stating would like to est w/pcp. Sent mychart to patient [facility] first available and will wait until patient responds. First available is mid April with dr papi castañeda. Reason for Outreach Returned Call/MyChart Patient Contacted: Spoke to patient/parent/or legal guardian Patient identified by name and date of : Yes Returned call/MyChart actions taken: MyChart message sent Navigation Signature: Franko Hoskins Population Health Navigator March 14, 2025 7:18 AM [facility] Population Health NavigatorFranko Khurram 03/22/2025 7:32 AM Signed POPULATION HEALTH NAVIGATION OUTREACH Action/FYI Pcp wq- Patient responded via mychart agreeable to next available appt with dr papi castañ[facility] [facility] Scheduled appt to est w/pcp Updated pcp field Linked referral Sent mychart message to patient regarding appt information Reason for Outreach Returned Call/MyChart Patient Contacted: Spoke to patient/parent/or legal guardian Patient identified by name and date of : Yes Returned call/MyChart actions taken: Patient scheduled/pended orders: Establish Care App[facility]ment [facility]2025 [facility]OU[facility]ER[facility] - 1 MO OV-DM 04/27/2025 in [facility] with PAPI CASTAÑEDA - establish care MyChart message sent PCP field updated Navigation Signature: Franko Hoskins Population Health Navigator March 22, 2025 7:30 AM Allergies As of Date: 03/09/2025 Noted Allergy Reaction FLAGYL (METRONIDAZOLE) 09/10/2024 5 - Intolerance KETOROLAC 07/03/2024 4 - Hives Date Reviewed: 03/03/2025 Reviewed by: Court Zaldivar MA - Fully Assessed Reason for Visit: Population Health Navigation Outreach [[id number]] Cmt: Pcp wq Prescriptions as of 03/22/2025 - Etonogestrel-Ethinyl Estradiol (NUVARING) 0.12-0.015 mg/24 hr vaginal ring Use 1 each vaginally as directed. Insert vaginally and leave in place for 3 consecutive weeks, then remove for 1 week. - fluticasone (FLONASE) 50 mcg/actuation nasal spray Use 2 sprays in each nostril once daily. Rinse mouth after use. - DEXCOM G6 SENSOR leny Inject 1 Each subcutaneously every 2 weeks. - insulin scallop cutter machine cart,aut,G6/7,cntr (OMNIPOD 5 G6-G7 INTRO KT,GEN5,) crtg For use with the pump - insulin glargine (LANTUS SOLOSTAR U-100 INSULIN) 100 unit/mL (3 mL) Inject 15 Units subcutaneously daily at bedtime. - ONETOUCH DELICA PLUS LANCET 33 gauge Use with blood glucose test 4 times daily. Insulin Dep? Yes - ONETOUCH VERIO TEST STRIPS test strip Use with blood glucose test 4 times daily. Insulin Dep? Yesday - UNIFINE PENTIPS PLUS 32 gauge x 32 Use as directed to administer insulin 4-6 times per day. - Blood-Glucose Transmitter (DEXCOM G6 TRANSMITTER) leny 1 Each once every month. - acetaminophen-caffeine (EXCEDRIN TENSION HEADACHE) 500-65 mg tablet Take 1 tablet by mouth every 6 hours as needed. - cetirizine (ZYRTEC) 10 mg tablet Take 10 mg by mouth as needed for cold/allergy symptoms. As needed - insulin pump cart,auto,BT,G6/7 (OMNIPOD 5 G6-G7 PODS, GEN 5,) crtg Inject 1 Each subcutaneously every 72 hours. - insulin lispro (HUMALOG KWIKPEN) 100 unit/mL Inject up to 50units SQ daily as directed based on IC ratio and correction factor - insulin lispro (HUMALOG KWIKPEN) 100 unit/mL In case of pump failure- take upto 30 units dialy - alcohol swabs Use as directed to test metered glucose and admin (more content not included)... [facility] 03-03-2025 Note HNO ID: [id number] Author: ANDREW ALSTON APRN.COOPERATIVE MANAGER Service: ? Author Type: Nurse Practitioner Type: Progress Notes Filed: 03/03/2025 12:03 Note Text: [facility] Catalina Capellan is a 19 year old female. Patient presents with: Head Congestion: ST<,CAT, cough, runny nose, low back pain x2 days, reports elevated glucose readings since being sick HPI The patient is a 19-year-old female with a history of type 1 diabetes mellitus, presenting with upper respiratory symptoms and back pain. No injury of her back. Upper Respiratory Symptoms: - Onset a few days ago. - Symptoms include sore throat, fever, cough, headache, ear pain, and congestion. - Pdqf-zmq-kmmjmgb medications, including Flonase, have not provided relief. - Boyfriend is currently sick; son is fussy but not sick, sick. - Son recently recovered from hand, foot, and mouth disease. - Cough is productive. - History of recurrent ear infections. Back Pain: - Severe back pain for the past few weeks, radiating to hips and up the spine. - Described as a nerve pain, with shooting pain down the back of the legs. Does not have neruopathy from diabetes at this time. She does see an endocrinolgist and is trying to get better control of her sugars. - Aggravated by movement, particularly walking and hip movement. - Tightness in hips noted. - Minimal relief from Tylenol. Type 1 Diabetes Mellitus: - Blood glucose levels fluctuating between 30-600 mg/dL. - Recent readings around 300 mg/dL. - Managed by an information developer; currently without a primary care provider. Review of Systems Constitutional: (+) fever Head: (+) headache Ears/Nose/Mouth/Throat: (+) ear pain, (+) ear fullness, (+) sore throat, (+) nasal congestion Respiratory: (+) cough, (+) productive cough Musculoskeletal: (+) back pain, (+) hip pain, (+) radiating leg pain, (-) muscle spasms Objective BP 133/73 Pulse 95 Temp 36.6 ?C (97.9 ?F) Resp 18 Wt 71.4 kg (157 lb 6.5 oz) LMP 02/09/2025 (Exact Date) SpO2 99% BMI 25.41 kg/m? PAST MEDICAL HISTORY Diagnosis Date Constipated Eczema POTS (postural orthostatic tachycardia syndrome) Sprain of ligament of right ankle 04/10/2022 Type 1 diabetes (HCC) PAST SURGICAL HISTORY Procedure Laterality Date SECTION HX 01/2024 CYSTOSCOPY,INSERT URETHRAL STENT EGD LITHROTRIPSY ALLERGIES Flagyl [Metronidazole] and Ketorolac MEDICATIONS insulin glargine (LANTUS SOLOSTAR U-100 INSULIN) 100 unit/mL (3 mL) Inject 15 Units subcutaneously daily at bedtime. insulin lispro (HUMALOG KWIKPEN) 100 unit/mL Inject up to 50units SQ daily as directed based on IC ratio and correction factor insulin lispro (HUMALOG KWIKPEN) 100 unit/mL In case of pump failure- take upto 30 units dialy amoxicillin-clavulanate potassium (AUGMENTIN) 875-125 mg per tablet Take 1 tablet by mouth every 12 hours for 5 days. naproxen (NAPROSYN) 500 mg tablet Take 1 tablet by mouth two times a day as needed (FOR PAIN - TAKE WITH FOOD.) for up to 7 days. tiZANidine (ZANAFLEX) 2 mg tablet Take 1 tablet by mouth every 8 hours as needed for up to 7 days. Etonogestrel-Ethinyl Estradiol (NUVARING) 0.12-0.015 mg/24 hr vaginal ring Use 1 each vaginally as directed. Insert vaginally and leave in place for 3 consecutive weeks, then remove for 1 week. (Patient not taking: Reported on 02/08/2025) fluticasone (FLONASE) 50 mcg/actuation nasal spray Use 2 sprays in each nostril once daily. Rinse mouth after use. (Patient taking differently: Use 2 sprays in each nostril once daily. Rinse mouth after use. prn) DEXCOM G6 SENSOR leny Inject 1 Each subcutaneously every 2 weeks. insulin scallop cutter machine cart,aut,G6/7,cntr (OMNIPOD 5 G6-G7 INTRO KT,GEN5,) crtg For use with the pump (Patient not taking: Reported on 02/14/2025) fluticasone (FLONASE) 50 mcg/actuation nasal spray Use 2 Sprays in each nostril once daily. Rinse mouth after use. (Patient not taking: Reported on 11/15/2024) ONETOUCH DELICA PLUS LANCET 33 gauge Use with blood glucose test 4 times daily. Insulin Dep? Yes ONETOUCH VERIO TEST STRIPS test strip Use with blood glucose test 4 times daily. Insulin Dep? Yesday UNIFINE PENTIPS PLUS 32 gauge x Use as directed to administer insulin 4-6 times per day. Blood-Glucose Transmitter (DEXCOM G6 TRANSMITTER) leny 1 Each once every month. acetaminophen-caffeine (EXCEDRIN TENSION HEADACHE) 500-65 mg tablet Take 1 tablet by mouth every 6 hours as needed. cetirizine (ZYRTEC) 10 mg tablet Take 10 mg by mouth as needed for cold/allergy symptoms. As needed (Patient not taking: Reported on 09/20/2024) insulin pump cart,auto,BT,G6/7 (OMNIPOD 5 G6-G7 PODS, GEN 5,) crtg Inject 1 Each subcutaneously every 72 hours. alcohol swabs Use as directed to test metered glucose and administer insulin. ONETOUCH VERIO FLEX METER Use as directed to test metered glucose OMNIPOD 5 G6 INTRO KIT, GEN 5, crtg as directed. (Patient not (more content not included)... [facility] 03-03-2025 History of Presen t illness Narrative [facility]o Catalina Capellan is a 19 year old female. Patient presents with: Head Congestion: ST<,CAT, cough, runny nose, low back pain x2 days, reports elevated glucose readings since being sick HPI The patient is a 19-year-old female with a history of type 1 diabetes mellitus, presenting with upper respiratory symptoms and back pain. No injury of her back. Upper Respiratory Symptoms: - Onset a few days ago. - Symptoms include sore throat, fever, cough, headache, ear pain, and congestion. - Hszu-iug-nmchvpn medications, including Flonase, have not provided relief. - Boyfriend is currently sick; son is fussy but not sick, sick. - Son recently recovered from hand, foot, and mouth disease. - Cough is productive. - History of recurrent ear infections. Back Pain: - Severe back pain for the past few weeks, radiating to hips and up the spine. - Described as a nerve pain, with shooting pain down the back of the legs. Does not have neruopathy from diabetes at this time. She does see an endocrinolgist and is trying to get better control of her sugars. - Aggravated by movement, particularly walking and hip movement. - Tightness in hips noted. - Minimal relief from Tylenol. Type 1 Diabetes Mellitus: - Blood glucose levels fluctuating between 30-600 mg/dL. - Recent readings around 300 mg/dL. - Managed by an information developer; currently without a primary care provider. Review of Systems Constitutional: (+) fever Head: (+) headache Ears/Nose/Mouth/Throat: (+) ear pain, (+) ear fullness, (+) sore throat, (+) nasal congestion Respiratory: (+) cough, (+) productive cough Musculoskeletal: (+) back pain, (+) hip pain, (+) radiating leg pain, (-) muscle spasms Objective BP 133/73 Pulse 95 Temp 36.6 C (97.9 F) Resp 18 Wt 71.4 kg (157 lb 6.5 oz) LMP 02/09/2025 (Exact Date) SpO2 99% BMI 25.41 kg/m PAST MEDICAL HISTORY Diagnosis Date Constipated Eczema POTS (postural orthostatic tachycardia syndrome) Sprain of ligament of right ankle 04/10/2022 Type 1 diabetes (HCC) PAST SURGICAL HISTORY Procedure Laterality Date SECTION HX 01/2024 CYSTOSCOPY,INSERT URETHRAL STENT EGD LITHROTRIPSY ALLERGIES Flagyl [Metronidazole] and Ketorolac MEDICATIONS insulin glargine (LANTUS SOLOSTAR U-100 INSULIN) 100 unit/mL (3 mL) Inject 15 Units subcutaneously daily at bedtime. insulin lispro (HUMALOG KWIKPEN) 100 unit/mL Inject up to 50units SQ daily as directed based on IC ratio and correction factor insulin lispro (HUMALOG KWIKPEN) 100 unit/mL In case of pump failure- take upto 30 units dialy amoxicillin-clavulanate potassium (AUGMENTIN) 875-125 mg per tablet Take 1 tablet by mouth every 12 hours for 5 days. naproxen (NAPROSYN) 500 mg tablet Take 1 tablet by mouth two times a day as needed (FOR PAIN - TAKE WITH FOOD.) for up to 7 days. tiZANidine (ZANAFLEX) 2 mg tablet Take 1 tablet by mouth every 8 hours as needed for up to 7 days. Etonogestrel-Ethinyl Estradiol (NUVARING) 0.12-0.015 mg/24 hr vaginal ring Use 1 each vaginally as directed. Insert vaginally and leave in place for 3 consecutive weeks, then remove for 1 week. (Patient not taking: Reported on 02/08/2025) fluticasone (FLONASE) 50 mcg/actuation nasal spray Use 2 sprays in each nostril once daily. Rinse mouth after use. (Patient taking differently: Use 2 sprays in each nostril once daily. Rinse mouth after use. prn) DEXCOM G6 SENSOR leny Inject 1 Each subcutaneously every 2 weeks. insulin scallop cutter machine cart,aut,G6/7,cntr (OMNIPOD 5 G6-G7 INTRO KT,GEN5,) crtg For use with the pump (Patient not taking: Reported on 02/14/2025) fluticasone (FLONASE) 50 mcg/actuation nasal spray Use 2 Sprays in each nostril once daily. Rinse mouth after use. (Patient not taking: Reported on 11/15/2024) ONETOUCH DELICA PLUS LANCET 33 gauge Use with blood glucose test 4 times daily. Insulin Dep? Yes ONETOUCH VERIO TEST STRIPS test strip Use with blood glucose test 4 times daily. Insulin Dep? Yesday UNIFINE PENTIPS PLUS 32 gauge x Use as directed to administer insulin 4-6 times per day. Blood-Glucose Transmitter (DEXCOM G6 TRANSMITTER) leny 1 Each once every month. acetaminophen-caffeine (EXCEDRIN TENSION HEADACHE) 500-65 mg tablet Take 1 tablet by mouth every 6 hours as needed. cetirizine (ZYRTEC) 10 mg tablet Take 10 mg by mouth as needed for cold/allergy symptoms. As needed (Patient not taking: Reported on 09/20/2024) insulin pump cart,auto,BT,G6/7 (OMNIPOD 5 G6-G7 PODS, GEN 5,) crtg Inject 1 Each subcutaneously every 72 hours. alcohol swabs Use as directed to test metered glucose and administer insulin. ONETOUCH VERIO FLEX METER Use as directed to test metered glucose OMNIPOD 5 G6 INTRO KIT, GEN 5, crtg as directed. (Patient not taking: Reported on 11/15/2024) FAMILY HISTORY Problem Relation Age of Onset other (Hysterectomy) Mother other (Other) Father Unknown GI Maternal Grandmother other (Sponge Kidney) Maternal Grandmother Hypertension Maternal Grandfather Heart Attack Maternal Grandfather SOCIAL HISTORY[1] Physical Exam Vitals and nursing note reviewed. Constitutional: Appearance: Normal appearance. She is normal weight. HENT: Head: Normocephalic and atraumatic. Right Ear: Ear canal normal. Tympanic membrane is erythematous and bulging. Tympanic membrane has decreased mobility. Left Ear: Tympanic membrane, ear canal and external ear normal. Nose: Congestion and rhinorrhea present. Mouth/Throat: Mouth: Mucous membranes are moist. Pharynx: No oropharyngeal exudate or posterior oropharyngeal erythema. Eyes: Extraocular Movements: Extraocular movements intact. Conjunctiva/sclera: Conjunctivae normal. Pupils: Pupils are equal, round, and reactive to light. Cardiovascular: Rate and Rhythm: Normal rate and regular rhythm. Pulses: Normal pulses. Heart sounds: Normal heart sounds. Pulmonary: Effort: Pulmonary effort is normal. Breath sounds: Normal breath sounds. Abdominal: General: There is no distension. Palpations: There is no mass. Tenderness: There is no abdominal tenderness. There is no right CVA tenderness, left CVA tenderness, guarding or rebound. Hernia: No hernia is present. Lymphadenopathy: Cervical: Cervical adenopathy present. Neurological: Mental Status: She is alert. { 1. Viral upper respiratory infection (J06.9) - Symptoms include sore throat, fever, cough, headache, and congestion. - Supportive care recommended: rest, fluids, Tylenol, ibuprofen. - Educated that antibiotics will not resolve viral symptoms. 2. Strain of fascia of lower back (S39.012A) - Chronic lower back and hip pain with shooting pain down the legs, worsened by movement. - Start naproxen. - Start muscle relaxant; advised on potential drowsiness. - Referred to primary care for ongoing management. - No signs of nerve impingement, neruvascular deficits, septic bursitis, or cadua equina. 3. Acute otitis media, left (H66.92) - Start Augmentin. - Referred to ENT due to recurrent ear infections. and Recording using [employer] software for draft documentation of the visit was discussed with the patient/authorized resources representative; all questions welcomed and answered. Patient/authorized resources representative agreed to proceed History and Record Review External record(s) reviewed: prior outpatient record. Findings from review of outpatient records: Enodcrinologist notes Differential Diagnoses - Viral upper respiratory infection is more likely for the following reason(s): suggested by H&P - Otitis media is more likely for the following reason(s): suggested by H&P - Lower back strain is more likely for the following reason(s): suggested by H&P - Nerve/impingement/septic bursitis/cauda equinea/acute fracture is less likely for the following reason(s): H&P not suggestive - pneumonia or acute cardiopulomonary process Disposition The patient was discharged. OTC Medications were advised: Tylenol [1] Social History Tobacco Use Smoking status: Never Smokeless tobacco: Never Vaping Use Vaping status: current everyday user Substances: Nicotine Devices: Pre-filled pod Substance Use Topics Alcohol use: Never Drug use: Never documented in this encounter [facility] 02-21-2025 Note HNO ID: [id number] Author: LETITIA CEVALLOS MD Service: ? Author Type: Physician Type: Progress Notes Filed: 02/21/2025 23:11 Note Text: The patient presents for requested ultrasound. Full report available in the Imaging tab in [employer]. Letitia Cevallos MD [facility] 02-21-2025 History of Presen t illness Narrative The patient presents for requested ultrasound. Full report available in the Imaging tab in [employer]. Letitia Cevallos MD documented in this encounter [facility] 02-17-2025 Telephone encounter Note Prior Authorization request received. Fax forwarded to [email or web address] fax. Breanne Degroot MA [facility] 02-17-2025 Miscellaneous Notes Prior Authorization request received. Fax forwarded to [email or web address] fax. Breanne Degorot MA documented in this encounter [facility] 02-14-2025 Telephone encounter Note Patient seen in office, discussed atthat time. Breanne Degroot MA [facility] 02-14-2025 Miscellaneous Notes Patient seen in office, discussed atthat time. Breanne Degroot MA documented in this encounter [facility] 02-14-2025 Note HNO ID: [id number] Author: KOURTNEY SHERMAN MD Service: ? Author Type: Physician Type: Progress Notes Filed: 02/14/2025 18:25 Note Text: [facility] Follow up note Referred by: Breanne Joshi MD (OBGYN) Chief complaint: Type 1 Diabetes mellitus History of Present Illness: Catalina Capellan is a 19 year old female with type 1 Diabetes who is presenting for follow up of type 1 DM. Initial visit on 07/18/24. -Initially diagnosed: In Mar 2023 -Circumstances around diagnosis: she had symptoms of polyuria, polydipsia, weight loss and she was admitted to hospital with DKA when she had symptoms and went to the ED. She was being managed by [facility] but was dropped from practice after she had her baby in 01/2024 Started on Omnipod 5 in Apr 2023. PMH: GERD, POTS . On control: on Verito now She is not breast feeding . Symptoms previously reported Recurrent yeast infections. Denied any weight changes recently Interval history: 02/14/25: She did not have her pump with her on last visit, no remote on this visit. But no sugar readings could be obtained. She is not using Dexcom and is checking BG with finger sticks. She reports having BG as low as 20s on the glucometer. Does not put in BG into her pump Reports she has been doing overall better for the last week as compared to last visit She could not tell the staff if she is using a transmitter or not, as she has not picked the prescription from the pharmacy She asks for paperwork for [place] driver's license Complications: Cardiovascular -- No Statin Use -- No Retinopathy -- No Last NUBIA/Retina Eval: reportedly August 2023 after checking her calendar, no repeat testing done yet although recommended Nephropathy -- not known MARYLU/ARB Use -- No Polyneuropathy -- No Foot Exam: done in office in 10/2024 Obesity -- No Other -- No -Family history of diabetes mellitus: type 2 DM in few family members Personal history of DKA or HHS-- DKA at diagnosis Personal history of pancreatitis-- No History of alcohol consumption--No Family history of thyroid cancer-- No Personal history of Urinary tract infections -- None is the recent past Diabetic education class: not completed Diabetes Medications -Current regimen: Omnipod 5 with Dexcom G6- started 1 month after diagnosis- in Apr 2023. Frequently administers correction doses, which she reports are effective. -Misses doses: Reports missing boluses 2-3 times per week. Occasionally administers insulin postprandially if preprandial bolus is forgotten. Previous A1c in December 2023: 5.9%. today POC is 9.4% Reports improvement in glycemic control over the past 1-2 months. Has been manually calculating bolus doses rather than using the pump's calculator. I changed the settings on her pump myself on last visit, as she had difficulty maneuvering the settings on her phone Current pump settings: as per information available on [employer] Basal: 12 am : 1.15 units/hr Total basal: 24 units Insulin to carb ratio: 12 am - 12 am - 1: 10 ISF: 12 am: 50 mg/dl BG correction threshold 140 mg/dl BG target range: 110 mg/dl Active insulin time 2 hrs -Adverse medication effects: none -Rotating injection sites: every 3 days on abdomen -Previously Used DM Meds: Yes . Blood sugars -Self monitoring of blood sugar via CGM Summary of Personal CGM Findings: Type of CGM: dexcom G6 No data available as she is not using, no glucose log brought today . Hypoglycemia -Hypoglycemic episodes: no -Frequency and timing of hypoglycemia: -Hypoglycemia awareness: yes, feels diaphoretic, shaking, dizziness, feeling not all there . Lifestyle -Exercise: occasionally -Diet: 2 to 3 meals, usually skips breakfast Breakfast: Lunch: Dinner: heaviest meal of the day She is eating regular meals . ROS: SYSTEMIC: Denies fatigue, malaise, energy, Weight has been stable, heat/cold intolerance, polydipsia EYES: Denies blurring of vision, diplopia, pain/discomfort, excessive tearing, swelling of eye lids, bulging, redness, dryness, NECK: Denies goiter, lump, pain/discomfort, dysphagia, hoarseness, sore thorat RESPIRATORY: Denies dyspnea at rest/with exertion, orthopnea cough, pleuritic chest pain, snoring, apnea episodes CARDIOVASCULAR: Chest pain, palpitations, irregular heart beats GASTRO-INTESTINAL:Denies Nausea, vomiting, abdominal pain, hyperdefecation, rectal bleeding NEUROLOGICAL: Denies dizziness, lightheadedness, weakness, cramping, numbness/tingling of extremities MUSCULOSKELETAL: Denies joint pain, stiffness, swelling, cramping or weakness. GENITOURINARY: Denies polyuria, recurrent UTI/yeast infections SKIN: Denies dryness, brittle nails, hair loss, alopecia, excessive sweating, flushing, darkening of skin PSYCHIATRIC: Denies anxiety, depression, panic attacks, irritability, mood swings Past Medical History PAST MEDICAL (more content not included)... [facility] 02-14-2025 History of Presen t illness Narrative [facility] Follow up note Referred by: Breanne Joshi MD (OBGYN) Chief complaint: Type 1 Diabetes mellitus History of Present Illness: Catalina Capellan is a 19 year old female with type 1 Diabetes who is presenting for follow up of type 1 DM. Initial visit on 07/18/24. -Initially diagnosed: In Mar 2023 -Circumstances around diagnosis: she had symptoms of polyuria, polydipsia, weight loss and she was admitted to hospital with DKA when she had symptoms and went to the ED. She was being managed by [facility] but was dropped from practice after she had her baby in 01/2024 Started on Omnipod 5 in Apr 2023. PMH: GERD, POTS . On control: on Verito now She is not breast feeding . Symptoms previously reported Recurrent yeast infections. Denied any weight changes recently Interval history: 02/14/25: She did not have her pump with her on last visit, no remote on this visit. But no sugar readings could be obtained. She is not using Dexcom and is checking BG with finger sticks. She reports having BG as low as 20s on the glucometer. Does not put in BG into her pump Reports she has been doing overall better for the last week as compared to last visit She could not tell the staff if she is using a transmitter or not, as she has not picked the prescription from the pharmacy She asks for paperwork for [place] driver's license Complications: Cardiovascular -- No Statin Use -- No Retinopathy -- No Last NUBIA/Retina Eval: reportedly August 2023 after checking her calendar, no repeat testing done yet although recommended Nephropathy -- not known MARYLU/ARB Use -- No Polyneuropathy -- No Foot Exam: done in office in 10/2024 Obesity -- No Other -- No -Family history of diabetes mellitus: type 2 DM in few family members Personal history of DKA or HHS-- DKA at diagnosis Personal history of pancreatitis-- No History of alcohol consumption--No Family history of thyroid cancer-- No Personal history of Urinary tract infections -- None is the recent past Diabetic education class: not completed Diabetes Medications -Current regimen: Omnipod 5 with Dexcom G6- started 1 month after diagnosis- in Apr 2023. Frequently administers correction doses, which she reports are effective. -Misses doses: Reports missing boluses 2-3 times per week. Occasionally administers insulin postprandially if preprandial bolus is forgotten. Previous A1c in December 2023: 5.9%. today POC is 9.4% Reports improvement in glycemic control over the past 1-2 months. Has been manually calculating bolus doses rather than using the pump's calculator. I changed the settings on her pump myself on last visit, as she had difficulty maneuvering the settings on her phone Current pump settings: as per information available on gloPSafe Basal: 12 am : 1.15 units/hr Total basal: 24 units Insulin to carb ratio: 12 am - 12 am - 1: 10 ISF: 12 am: 50 mg/dl BG correction threshold 140 mg/dl BG target range: 110 mg/dl Active insulin time 2 hrs -Adverse medication effects: none -Rotating injection sites: every 3 days on abdomen -Previously Used DM Meds: Yes . Blood sugars -Self monitoring of blood sugar via CGM Summary of Personal CGM Findings: Type of CGM: dexcom G6 No data available as she is not using, no glucose log brought today . Hypoglycemia -Hypoglycemic episodes: no -Frequency and timing of hypoglycemia: -Hypoglycemia awareness: yes, feels diaphoretic, shaking, dizziness, feeling not all there . Lifestyle -Exercise: occasionally -Diet: 2 to 3 meals, usually skips breakfast Breakfast: Lunch: Dinner: heaviest meal of the day She is eating regular meals . ROS: SYSTEMIC: Denies fatigue, malaise, energy, Weight has been stable, heat/cold intolerance, polydipsia EYES: Denies blurring of vision, diplopia, pain/discomfort, excessive tearing, swelling of eye lids, bulging, redness, dryness, NECK: Denies goiter, lump, pain/discomfort, dysphagia, hoarseness, sore thorat RESPIRATORY: Denies dyspnea at rest/with exertion, orthopnea cough, pleuritic chest pain, snoring, apnea episodes CARDIOVASCULAR: Chest pain, palpitations, irregular heart beats GASTRO-INTESTINAL:Denies Nausea, vomiting, abdominal pain, hyperdefecation, rectal bleeding NEUROLOGICAL: Denies dizziness, lightheadedness, weakness, cramping, numbness/tingling of extremities MUSCULOSKELETAL: Denies joint pain, stiffness, swelling, cramping or weakness. GENITOURINARY: Denies polyuria, recurrent UTI/yeast infections SKIN: Denies dryness, brittle nails, hair loss, alopecia, excessive sweating, flushing, darkening of skin PSYCHIATRIC: Denies anxiety, depression, panic attacks, irritability, mood swings Past Medical History PAST MEDICAL HISTORY Diagnosis Date Constipated Eczema POTS (postural orthostatic tachycardia syndrome) Sprain of ligament of right ankle 04/10/2022 Type 1 diabetes (HCC) Past Surgical History PAST SURGICAL HISTORY Procedure Laterality Date SECTION HX 01/2024 CYSTOSCOPY,INSERT URETHRAL STENT EGD LITHROTRIPSY Family History FAMILY HISTORY Problem Relation Age of Onset other (Hysterectomy) Mother other (Other) Father Unknown GI Maternal Grandmother other (Sponge Kidney) Maternal Grandmother Hypertension Maternal Grandfather Heart Attack Maternal Grandfather Social History Social History Tobacco Use Smoking status: Never Smokeless tobacco: Never Vaping Use Vaping status: current everyday user Substances: Nicotine Devices: Pre-filled pod Substance Use Topics Alcohol use: Never Drug use: Never Allergies ALLERGIES Allergen Reactions Flagyl [Metronidazo* Intolerance Ketorolac Hives Current Medications Current Outpatient Medications Medication Sig Dispense Refill fluticasone (FLONASE) 50 mcg/actuation nasal spray Use 2 sprays in each nostril once daily. Rinse mouth after use. (Patient taking differently: Use 2 sprays in each nostril once daily. Rinse mouth after use. prn) 1 each 0 DEXCOM G6 SENSOR leny Inject 1 Each subcutaneously every 2 weeks. 3 each 2 insulin glargine (LANTUS SOLOSTAR U-100 INSULIN) 100 unit/mL (3 mL) Inject 15 Units subcutaneously daily at bedtime. 15 mL 0 ONETOUCH DELICA PLUS LANCET 33 gauge Use with blood glucose test 4 times daily. Insulin Dep? Yes 300 Each 2 ONETOUCH VERIO TEST STRIPS test strip Use with blood glucose test 4 times daily. Insulin Dep? Yesday 150 Strip 4 UNIFINE PENTIPS PLUS 32 gauge x / Use as directed to administer insulin 4-6 times per day. 100 Each 4 Blood-Glucose Transmitter (DEXCOM G6 TRANSMITTER) leny 1 Each once every month. 1 Each 2 acetaminophen-caffeine (EXCEDRIN TENSION HEADACHE) 500-65 mg tablet Take 1 tablet by mouth every 6 hours as needed. insulin pump cart,auto,BT,G6/7 (OMNIPOD 5 G6-G7 PODS, GEN 5,) crtg Inject 1 Each subcutaneously every 72 hours. 10 Each 3 insulin lispro (HUMALOG KWIKPEN) 100 unit/mL Inject up to 50units SQ daily as directed based on IC ratio and correction factor 30 mL 1 insulin lispro (HUMALOG KWIKPEN) 100 unit/mL In case of pump failure- take upto 30 units dialy 15 mL 0 alcohol swabs Use as directed to test metered glucose and administer insulin. ONETOUCH VERIO FLEX METER Use as directed to test metered glucose Etonogestrel-Ethinyl Estradiol (NUVARING) 0.12-0.015 mg/24 hr vaginal ring Use 1 each vaginally as directed. Insert vaginally and leave in place for 3 consecutive weeks, then remove for 1 week. (Patient not taking: Reported on 02/08/2025) 1 each 11 insulin scallop cutter machine cart,aut,G6/7,cntr (OMNIPOD 5 G6-G7 INTRO KT,GEN5,) crtg For use with the pump (Patient not taking: Reported on 02/14/2025) 1 each 0 fluticasone (FLONASE) 50 mcg/actuation nasal spray Use 2 Sprays in each nostril once daily. Rinse mouth after use. (Patient not taking: Reported on 11/15/2024) 1 Each 0 cetirizine (ZYRTEC) 10 mg tablet Take 10 mg by mouth as needed for cold/allergy symptoms. As needed (Patient not taking: Reported on 09/20/2024) OMNIPOD 5 G6 INTRO KIT, GEN 5, crtg as directed. (Patient not taking: Reported on 11/15/2024) No current facility-administered medications for this visit. Vitals: 02/14/25 1553 BP: 112/74 BP Site: Right Arm BP Position: Sitting BP Cuff Size: Regular Adult Pulse: 102 Resp: 14 Temp: 37.3 C (99.1 F) TempSrc: Temporal Artery SpO2: 98% Weight: 72.1 kg (159 lb) Physical Exam GENERAL: Well nourished, normal built, well hydrated, in no distress and oriented x 3 EYES: no thyroid eye signs, EOMI NECK: , no tenderness and adenopathy THYROID: slight enlargement on inspection, but on palpation does not feel enlarged, non-tender to palpable, no evidence of goiter, no nodules palpable LUNGS: Unlabored on room air, no audible wheezing HEART: regular rate and rhythm GI: has purple stretch tay (reportedly from ), no changes today Injections sites without lipodystrophy EXTREMITIES: no edema NEURO: normal strength, no tremors, feet checked today, no issues OTHER: Acanthosis None Labs TSH Date Value Ref Range Status 11/16/2024 1.250 0.510 - 4.300 mIU/L Final Comment: If the patient is , TSH reference range varies by gestational period: First Trimester (weeks 9-12): 0.180-2.990 mIU/L Second Trimester: 0.110-3.980 mIU/L Third Trimester: 0.480-4.710 mIU/L Lorne Paulson, et al. A Practical Approach for the Verifications and Determination of Site- and Trimester-Specific Reference Intervals for Thyroid Function tests in . Thyroid, 2019:29:3:412-420. Raji Li et al. 2017 Guidelines of the [place] Thyroid Association for the Diagnosis and Management of Thyroid Disease during and the . Thyroid, 2017:27:3:315-389. Reference ranges were not locally established for this patient's age group. The normal values are based on the following source: Tenisha Bronson V. Reference Ranges for Adults and Children: Pre-analytical Considerations. [facility] 08/13/2023 1.490 0.510 - 4.300 mIU/L Final Comment: If the patient is , TSH reference range varies by gestational period: First Trimester (weeks 9-12): 0.180-2.990 mIU/L Second Trimester: 0.110-3.980 mIU/L Third Trimester: 0.480-4.710 mIU/L Lorne Paulson et al. A Practical Approach for the Verifications and Determination of Site- and Trimester-Specific Reference Intervals for Thyroid Function tests in . Thyroid, 2019:29:3:412-420. Raji Li, et al. 2017 Guidelines of the [place] Thyroid Association for the Diagnosis and Management of Thyroid Disease during and the . Thyroid, 2017:27:3:315-389. Reference ranges were not locally established for this patient's age group. The normal values are based on the following source: Tenisha Bronson V. Reference Ranges for Adults and Children: Pre-analytical Considerations. [facility] 02/12/2010 2.480 0.400 - 5.500 uU/mL Final Hemoglobin A1C (POCT) Date Value Ref Range Status 11/15/2024 9.4 (A) 4.3 - 5.6 % Final Comment: Location:[facility], [address] [place] [address], [facility] Point of care (POC) Hemoglobin A1c (HGBA1C) testing is intended to assess glucose control and provide a management tool for patients known to have diabetes and their healthcare providers. Target HGBA1C levels may depend on specific clinical circumstances. POC HGBA1C is not intended for use as a diagnostic or screening test; laboratory-based testing should be used for diagnostic purposes. The following information is supplemental and may not be applicable to specific diabetes management situations: The POC device family resource management specialist provides a normal range of 4.2% to 6.5% for the HGBA1C POC test. However, the [place] Diabetes Association guidelines indicate that patients with HGBA1C in the range of 5.7% to 6.4% are at increased risk for development of diabetes and that intervention by lifestyle modification may be beneficial. A HGBA1C level greater than or equal to 6.5% is considered diagnostic of diabetes, pending confirmatory testing. Use of HGBA1C testing to evaluate glucose control may not be appropriate for patients with hemoglobin variants or other conditions (e.g. anemia) that alter red blood cell lifespan. Albumin/Creat Ratio Date Value Ref Range Status 11/16/2024 53 (H) <30 mg/g Final Comment: Adult Male and Female Nephrotic Criteria: <30 mg/g is considered normal to mildly increased 30-300 mg/g is considered moderately increased >300 mg/g is considered severely increased KDIGO. (2013). KDIGO 2012 Clinical Practice Guideline for the Evaluation and Management of Chronic Kidney Disease. Official Journal of the International Society of Nephrology, 3(1), 1-150. 01/25/2024: Hba1c 5.9% 10/26/2023: TSH 0.909 uIU/ml (0.5-4.3) Free T4 1.1 ng/dl (0.8-1.5) 04/20/2023: Positive for GAD65, ICA, zinc transporter antibodies at the time of diagnosis TPO and TTG antibodies negative Assessment and Plan Type 1 Diabetes mellitus without complications -A1c 5.9% in 12/2023, worsened to 9.4% in 10/2024. Today it is 9.8% -eGFR 137 in 10/2024 -Current regimen: Omnipod 5 insulin pump Settings as per HPI No CGM data available today Plan: - I recommended continuing same pump setting soft now - advised using dexcom G7 which could have been denied by insurance if she did not follow up for appointments. I reminded her that the refills were given previously and should be available at the pharmacy otherwise - I recommended that she see diabetes education due to knowledge lack in her medical condition and management, consult placed in 06/2024 but she has not completed this, no-show. I recommended making this appointment today for the earliest possible date - carbohydrate consistent diet recommended, and exercise as possible Uptodate: Guerrier components of routine care for people with diabetes mellitus Reviewed ABCs of diabetes management (respective goals in parentheses): A1C (<7), blood pressure (<140/90), and cholesterol (LDL <100). Reviewed: medications, MOA, timing and changes. Reviewed goals to complete prior to next visit. Health maintenance: BP: 112/74 - Creatinine, GFR: 0.53, 137 (10/2024) - Liver enzymes AST, ALT: 13, 12 (10/2024) - Lipids on fasting: LDL 50 mg/dl, TG 135 mg/dl (<90), Total chol 171 mg/dl (<170) - Urine microalbumin: elevated at 53 in 10/2024 - Thyroid: normal in 10/2924 - Feet: checked in 10/2024, no issues - Eyes: reports to have had check up in 08/2023, no evidence of retinopathy, advised scheduling eye exam again - I recommended her to give us more data about BG before driving paperwork can be submitted, matthew as she has reported severe lows . Glucose log can be reviewed as well Scripts sent to pharmacy of pt choice: No RTC in 1 month I have confirmed and edited as necessary, the past medical, surgical, family, and social history as obtained by others. Kourtney Sherman MD Endocrinology Associate Staff [facility] Endocrinology and Metabolism [place] [phone] Medical Decision Making: Problems: Low: Stable chronic illness Data: Unique test result(s) reviewed: 3+ Unique test(s) ordered: 3+ Medical Decision Making Level: 3 - Low Name: Catalina Capellan Date of : 2005 Report Created: 02/14/2025 Date Range: Jan 16, 2025 - Feb 14, 2025 - - - - - - - - - - - - - - - - - - - - - - - - - - - INSULIN - DEVICE From insulin pump Insulin/Day: 41.4 units Overrides (%): 0% (0 boluses) # Bolus/Day: 2 Bolus %/Day: 49% Basal %/Day: 51% Average Bolus: 11 units Correction Bolus/Day: 0 (0%) - - - - - - - - - - - - - - - - - - - - - - - - - - - DEVICES Device Name: Insulet Omnipod 5 System Serial Number: [id number] Sync Date: 08/19/25 Device Time Offset (hh:mm): +00:00 Device Name: Insulet Omnipod 5 System Serial Number: [id number] Sync Date: 11/22/24 Device Time Offset (hh:mm): +00:00 Device Name: Insulet Omnipod 5 System Serial Number: [id number] Sync Date: 11/04/24 Device Time Offset (hh:mm): +00:00 Device Name: Insulet Omnipod 5 [employer] Serial Number: Insulet Omnipod 5 Sync Date: 12/15/23 Device Time Offset (hh:mm): +00:00 - - - - - - - - - - - - - - - - - - - - - - - - - - - PUMP SETTINGS Basal 1 - current Start Time Basal Rates Target BG Insulin to Carb Ratio Sensitivity (ISF) (Units/hr) (mg/dL) (g/Unit) (mg/dL/Unit) 12:00 AM 1.15 140 10 50 6:00 AM 1.15 140 10 50 10:00 AM 1.15 140 10 50 2:00 PM 1.15 140 10 50 5:00 PM 1.15 140 10 50 8:00 PM 1.15 140 10 50 Total 27.6 Active Insulin Time: 2 hours documented in this encounter [facility] 02-14-2025 Note HNO ID: [id number] Author: JAIRO MICHAEL RN Service: ? Author Type: Registered Nurse Type: Progress Notes Filed: 02/14/2025 18:25 Note Text: Name: Catalina Capellan Date of : 2005 Report Created: 02/14/2025 Date Range: Jan 16, 2025 - Feb 14, 2025 - - - - - - - - - - - - - - - - - - - - - - - - - - - INSULIN - DEVICE From insulin pump Insulin/Day: 41.4 units Overrides (%): 0% (0 boluses) # Bolus/Day: 2 Bolus %/Day: 49% Basal %/Day: 51% Average Bolus: 11 units Correction Bolus/Day: 0 (0%) - - - - - - - - - - - - - - - - - - - - - - - - - - - DEVICES Device Name: Insulet Omnipod? 5 System Serial Number: [id number] Sync Date: 02/14/25 Device Time Offset (hh:mm): +00:00 Device Name: Insulet Omnipod? 5 System Serial Number: [id number] Sync Date: 11/22/24 Device Time Offset (hh:mm): +00:00 Device Name: Insulet Omnipod? 5 System Serial Number: [id number] Sync Date: 11/04/24 Device Time Offset (hh:mm): +00:00 Device Name: Insulet Omnipod? 5 [employer] Serial Number: Insulet Omnipod 5 Sync Date: 12/15/23 Device Time Offset (hh:mm): +00:00 - - - - - - - - - - - - - - - - - - - - - - - - - - - PUMP SETTINGS Basal 1 - current Start Time Basal Rates Target BG Insulin to Carb Ratio Sensitivity (ISF) (Units/hr) (mg/dL) (g/Unit) (mg/dL/Unit) 12:00 AM 1.15 140 10 50 6:00 AM 1.15 140 10 50 10:00 AM 1.15 140 10 50 2:00 PM 1.15 140 10 50 5:00 PM 1.15 140 10 50 8:00 PM 1.15 140 10 50 Total 27.6 Active Insulin Time: 2 hours [facility] 02-08-2025 Note HNO ID: [id number] Author: ROLAND TORO APRN.COOPERATIVE MANAGER Service: ? Author Type: Nurse Practitioner Type: Progress Notes Filed: 02/08/2025 16:38 Note Text: Commercial Maintenance Technician offered: Patient declines. Catalina Capellan is a 19 year old female who presents for problem visit of pelvic pain. HPI: Catalina presents for pelvic pain and concern for . She states it has been going on for 3 days. Pain is mainly located around her c/s scar. States that it is red and swollen. LMP 01/14/2025. Reports vaginal discharge. Does have Type 1 Diabetes. 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: Sexual Activity: Yes; Male Contraception: No contraception data on record PAST MEDICAL HISTORY Diagnosis Date Constipated Eczema POTS (postural orthostatic tachycardia syndrome) Sprain of ligament of right ankle 04/10/2022 Type 1 diabetes (HCC) PAST SURGICAL HISTORY Procedure Laterality Date SECTION HX 01/2024 CYSTOSCOPY,INSERT URETHRAL STENT EGD LITHROTRIPSY FAMILY HISTORY Problem Relation Age of Onset other (Hysterectomy) Mother other (Other) Father Unknown GI Maternal Grandmother other (Sponge Kidney) Maternal Grandmother Hypertension Maternal Grandfather Heart Attack Maternal Grandfather SOCIAL HISTORY[1] Current Outpatient Medications Medication Sig Etonogestrel-Ethinyl Estradiol (NUVARING) 0.12-0.015 mg/24 hr vaginal ring Use 1 each vaginally as directed. Insert vaginally and leave in place for 3 consecutive weeks, then remove for 1 week. fluticasone (FLONASE) 50 mcg/actuation nasal spray Use 2 sprays in each nostril once daily. Rinse mouth after use. DEXCOM G6 SENSOR leny Inject 1 Each subcutaneously every 2 weeks. insulin scallop cutter machine cart,aut,G6/7,cntr (OMNIPOD 5 G6-G7 INTRO KT,GEN5,) crtg For use with the pump fluticasone (FLONASE) 50 mcg/actuation nasal spray Use 2 Sprays in each nostril once daily. Rinse mouth after use. (Patient not taking: Reported on 11/15/2024) insulin glargine (LANTUS SOLOSTAR U-100 INSULIN) 100 unit/mL (3 mL) Inject 15 Units subcutaneously daily at bedtime. ONETOUCH DELICA PLUS LANCET 33 gauge Use with blood glucose test 4 times daily. Insulin Dep? Yes ONETOUCH VERIO TEST STRIPS test strip Use with blood glucose test 4 times daily. Insulin Dep? Yesday UNIFINE PENTIPS PLUS 32 gauge x Use as directed to administer insulin 4-6 times per day. Blood-Glucose Transmitter (DEXCOM G6 TRANSMITTER) leny 1 Each once every month. acetaminophen-caffeine (EXCEDRIN TENSION HEADACHE) 500-65 mg tablet Take 1 tablet by mouth every 6 hours as needed. cetirizine (ZYRTEC) 10 mg tablet Take 10 mg by mouth as needed for cold/allergy symptoms. As needed (Patient not taking: Reported on 09/20/2024) insulin pump cart,auto,BT,G6/7 (OMNIPOD 5 G6-G7 PODS, GEN 5,) crtg Inject 1 Each subcutaneously every 72 hours. insulin lispro (HUMALOG KWIKPEN) 100 unit/mL Inject up to 50units SQ daily as directed based on IC ratio and correction factor insulin lispro (HUMALOG KWIKPEN) 100 unit/mL In case of pump failure- take upto 30 units dialy alcohol swabs Use as directed to test metered glucose and administer insulin. ONETOUCH VERIO FLEX METER Use as directed to test metered glucose OMNIPOD 5 G6 INTRO KIT, GEN 5, crtg as directed. (Patient not taking: Reported on 11/15/2024) No current facility-administered medications for this visit. Allergies As of Date: 02/08/2025 Allergen Noted Reaction FLAGYL [METRONIDAZOLE] 09/10/2024 Intolerance KETOROLAC 07/03/2024 Hives Fully Assessed 12/13/2024 REVIEW OF SYSTEMS. 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 As applicable, any other physician, advance practice provider, medical student, or other health professional student that will be observing or involved in the sensitive examination for educational or training purposes was discussed with the Patient or Authorized Imagery Analyst. The Patient or Authorized Imagery Analyst has agreed to proceed with the sensitive examination. (Sensitive examination includes inspection and/or palpation of the breasts, pelvis, prostate and anorectal regions). EXAM: BP 114/70 Wt 159 lb (72.1kg) LMP 01/14/2025 GENERAL: pleasant, female in no apparent distress HEENT: Normocephalic, atraumatic, mucus membranes moist, and no lesions CHEST: Normal inspiratory effort ABDOMEN: soft, non-tender, and no masses PELVIC: external genitalia normal with mild erythema noted, normal Bartholin's glands, urethra, Winifred's glands, no vulvar lesions, no cervical lesions, good vaginal support, physiologic discharge present, nor (more content not included)... [facility] 02-08-2025 History of Presen t illness Narrative Commercial Maintenance Technician offered: Patient declines. Catalina Capellan is a 19 year old female who presents for problem visit of pelvic pain. HPI: Catalina presents for pelvic pain and concern for . She states it has been going on for 3 days. Pain is mainly located around her c/s scar. States that it is red and swollen. LMP 01/14/2025. Reports vaginal discharge. Does have Type 1 Diabetes. 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: Sexual Activity: Yes; Male Contraception: No contraception data on record PAST MEDICAL HISTORY Diagnosis Date Constipated Eczema POTS (postural orthostatic tachycardia syndrome) Sprain of ligament of right ankle 04/10/2022 Type 1 diabetes (HCC) PAST SURGICAL HISTORY Procedure Laterality Date SECTION HX 01/2024 CYSTOSCOPY,INSERT URETHRAL STENT EGD LITHROTRIPSY FAMILY HISTORY Problem Relation Age of Onset other (Hysterectomy) Mother other (Other) Father Unknown GI Maternal Grandmother other (Sponge Kidney) Maternal Grandmother Hypertension Maternal Grandfather Heart Attack Maternal Grandfather SOCIAL HISTORY[1] Current Outpatient Medications Medication Sig Etonogestrel-Ethinyl Estradiol (NUVARING) 0.12-0.015 mg/24 hr vaginal ring Use 1 each vaginally as directed. Insert vaginally and leave in place for 3 consecutive weeks, then remove for 1 week. fluticasone (FLONASE) 50 mcg/actuation nasal spray Use 2 sprays in each nostril once daily. Rinse mouth after use. DEXCOM G6 SENSOR leny Inject 1 Each subcutaneously every 2 weeks. insulin scallop cutter machine cart,aut,G6/7,cntr (OMNIPOD 5 G6-G7 INTRO KT,GEN5,) crtg For use with the pump fluticasone (FLONASE) 50 mcg/actuation nasal spray Use 2 Sprays in each nostril once daily. Rinse mouth after use. (Patient not taking: Reported on 11/15/2024) insulin glargine (LANTUS SOLOSTAR U-100 INSULIN) 100 unit/mL (3 mL) Inject 15 Units subcutaneously daily at bedtime. ONETOUCH DELICA PLUS LANCET 33 gauge Use with blood glucose test 4 times daily. Insulin Dep? Yes ONETOUCH VERIO TEST STRIPS test strip Use with blood glucose test 4 times daily. Insulin Dep? Yesday UNIFINE PENTIPS PLUS 32 gauge x /32 Use as directed to administer insulin 4-6 times per day. Blood-Glucose Transmitter (DEXCOM G6 TRANSMITTER) leny 1 Each once every month. acetaminophen-caffeine (EXCEDRIN TENSION HEADACHE) 500-65 mg tablet Take 1 tablet by mouth every 6 hours as needed. cetirizine (ZYRTEC) 10 mg tablet Take 10 mg by mouth as needed for cold/allergy symptoms. As needed (Patient not taking: Reported on 09/20/2024) insulin pump cart,auto,BT,G6/7 (OMNIPOD 5 G6-G7 PODS, GEN 5,) crtg Inject 1 Each subcutaneously every 72 hours. insulin lispro (HUMALOG KWIKPEN) 100 unit/mL Inject up to 50units SQ daily as directed based on IC ratio and correction factor insulin lispro (HUMALOG KWIKPEN) 100 unit/mL In case of pump failure- take upto 30 units dialy alcohol swabs Use as directed to test metered glucose and administer insulin. ONETOUCH VERIO FLEX METER Use as directed to test metered glucose OMNIPOD 5 G6 INTRO KIT, GEN 5, crtg as directed. (Patient not taking: Reported on 11/15/2024) No current facility-administered medications for this visit. Allergies As of Date: 02/08/2025 Allergen Noted Reaction FLAGYL [METRONIDAZOLE] 09/10/2024 Intolerance KETOROLAC 07/03/2024 Hives Fully Assessed 12/13/2024 REVIEW OF SYSTEMS. 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 As applicable, any other physician, advance practice provider, medical student, or other health professional student that will be observing or involved in the sensitive examination for educational or training purposes was discussed with the Patient or Authorized Imagery Analyst. The Patient or Authorized Imagery Analyst has agreed to proceed with the sensitive examination. (Sensitive examination includes inspection and/or palpation of the breasts, pelvis, prostate and anorectal regions). EXAM: BP 114/70 Wt 159 lb (72.1kg) LMP 01/14/2025 GENERAL: pleasant, female in no apparent distress HEENT: Normocephalic, atraumatic, mucus membranes moist, and no lesions CHEST: Normal inspiratory effort ABDOMEN: soft, non-tender, and no masses PELVIC: external genitalia normal with mild erythema noted, normal Bartholin's glands, urethra, Winifred's glands, no vulvar lesions, no cervical lesions, good vaginal support, physiologic discharge present, normal appearing perineal body and perianal region BIMANUAL: uterus normal size, shape and consistency, no adnexal masses + mild tenderness with palpation to mid uterus NEURO: alert and oriented x3,exam grossly non-focal EXTREMITIES: normal ASSESSMENT AND PLAN: 1. Unprotected sexual intercourse - ICD9: V69.2, ICD10: Z72.51 (primary diagnosis) - UA DIP,URINE HCG (POC) - HCG QUANTITATIVE 2. Vaginal discharge - ICD9: 623.5, ICD10: N89.8 - BACTERIAL VAGINOSIS NAAT - JAYME/TRICHOMONAS NAAT 3. Pelvic pain - ICD9: [id number], ICD10: R10.2 - BACTERIAL CULTURE, URINE - Schedule ultrasound To go to ER with severe pain, N+V, fever, or chills. RTO for annual or sooner as needed. Roland Toro APRN.CNP Medical Decision Making: Problems: Moderate: New problem with uncertain prognosis Data: Unique test(s) ordered: 3+ Risk: Low: Low risk from testing/treatment Medical Decision Making Level: 4 - Moderate [1] Social History Tobacco Use Smoking status: Never Smokeless tobacco: Never Vaping Use Vaping status: current everyday user Substances: Nicotine Devices: Pre-filled pod Substance Use Topics Alcohol use: Never Drug use: Never documented in this encounter [facility] 01-26-2025 Note . MICRO - Microbiology PROCEDURE: Urine Culture [O1 *1] SOURCE: Urine BODY SITE: COLLECTED DATE/TIME: 01/24/2025 21:34 EDT RECEIVED DATE/TIME: 01/25/2025 15:18 EDT START DATE/TIME: 01/25/2025 15:19 EDT FREE TEXT SOURCE: FINAL REPORTS Final Report [] Verified Date/Time/Personnel: 01/26/2025 12:11 EDT 10,000 - 50,000 cfu/ml Group B Beta Hemolytic Strep (Strep agalactiae) Sensitivity testing is not recommended for one of the following reasons: 1. Established susceptibility patterns are available or 2. Interpretative criteria are not available. 10,000 - 50,000 cfu/ml Multiple bacterial morphotypes present. Probable Contamination. Suggest recollection if clinically indicated. PRELIMINARY REPORTS Preliminary Report [] Verified Date/Time/Personnel: 01/25/2025 15:59 EDT Specimen received in lab. Order Comments O1: Urine Culture Added by Discern Performing Locations *1: This test was performed at: [facility], [address] [place] [address], [facility] , [facility] 01-24-2025 Hospital Discharg e instructions Patient Education 01/24/2025 19:48:45 How to Check Your Blood Sugar How to Check Your Blood Sugar Keeping track of how much sugar (glucose) is in your blood is an important part of self-care when you have diabetes. This is also called self-monitoring of blood glucose (SMBG). To make sure your glucose and insulin are in balance, check your blood sugar as instructed by your healthcare provider. You may need to check your blood glucose levels at certain times every day. Or you may need to check them only a few times a week. What you need To check your blood sugar, make sure you have the following: A small pricking needle (lancing device) Test strips A glucose meter. Be sure the test strips match the glucose meter. A notebook, chart, or log book and pen or pencil Using a blood glucose meter You can check your blood sugar at home, at work, and anywhere else. Your diabetes team will help you choose a blood glucose meter. A meter measures the amount of glucose in a tiny drop of blood. You ll use a device called a lancet to draw a drop of blood. Put the strip in the meter first. Then touch the test strip to the drop of blood. The meter then gives you a number (reading) that tells you the level of your blood sugar. Aim for your target range Your blood sugar should be in your target range not too high and not too low. A target range is where your blood sugar level is healthiest. Staying in this range as much as possible will help lower your risk for health problems (complications). Your diabetes team will help you figure out the best target range for you. That range depends on many things. They include your age, other health problems, how well your diabetes is controlled, and how long you have had diabetes. In general, target ranges are: Control of blood glucose (hemoglobin A1c or A1c). This should generally be 7.0% or less. You will usually have this test at the lab. Before a meal (preprandial glucose). The target range is between 80 and 130 mg/dL. One to 2 hours after a meal (postprandial glucose). The range is less than 180 mg/dL. Track your readings Use a notebook, chart, or log book to keep track of your readings. Write down the date, time, and your blood sugar level numbers. This helps you see patterns, such as high blood sugar after eating certain foods. Take your log along when you see your healthcare provider. If you would rather track your readings digitally, the [place] [employer] (ADA) has a program called Diabetes 19/01. This online program gives you tools to help monitor diabetes, including blood glucose levels. Your provider may also have an electronic medical record that offers the same type of tracking options. Your blood glucose levels will help your provider decide if he or she needs to make any changes to your management plan. To check your blood sugar, follow the steps below Step 1. Get ready Wash your hands with soap and warm (not hot) water. Follow all of the instructions that came with your glucose meter. Be sure that your test strips were designed to be used with your meter and are not . Step 2. Draw a drop of blood Prick the side of your finger with the lancet. Squeeze gently until you get a drop of blood. Squeezing too hard can cause an inaccurate reading. Put the lancet in a special sharps container. Ask your healthcare team where you can buy one or what you can use to throw away any sharps. If you are unable to get enough blood, hold your hand at your side and gently shake it. If this is a common problem for you, ask your healthcare provider if you can use other parts of your body to get the blood from. Step 3. Place the drop on a strip Wait for the meter to show a message or symbol that it is time to test. Touch the test strip to the drop of blood. Follow the instructions included with meter. Step 4. Read and record your results Wait for your meter to show the result. If you see an error message, recheck using a fresh strip and a fresh drop of blood. Also recheck if the glucose numbers aren't what you expect too low without symptoms, or too high for no reason. Write the results in your log book. Bring your log book to you next appointment. [phone] The [employer]. [address] [place] [id number]. All rights reserved. This information is not intended as a substitute for professional medical care. Always follow your healthcare professional's instructions. 01/24/2025 19:48:42 Near Syncope, Unknown Near-Fainting with Uncertain Cause Fainting (syncope) is a temporary loss of consciousness (passing out). This happens when blood flow to the brain is reduced. Near-fainting (near-syncope) is like fainting, but you do not fully pass out. Instead, you feel like you are going to pass out, but do not actually lose consciousness. Signs and symptoms The following are symptoms of near-fainting: Feeling lightheaded or like you are going to faint Weak pulse Nausea Sweating Blurred vision or feeling like your vision is fading Palpitations Chest pain Hard time breathing Feeling cool and clammy Causes This happens when your blood pressure suddenly drops, and not enough blood flows to your brain. Common minor causes include: Sudden emotional stress such as fear, pain, panic, or the sight of blood Straining or overexertion, such as straining while using the toilet, coughing, or sneezing Standing up too quickly, or standing up for too long a time More serious causes include: Very slow, fast, or irregular heart rate (arrhythmia) Dehydration Significant blood loss Medicines, or a recent change in medicines. Medicines that can cause fainting include blood pressure or heart medicines. Heart attack Heart valve problems Remember, even minor causes can become serious if you fall and injure yourself, or are driving. You may need more tests. It is very important that you follow up with your doctor as advised. Home care The following guidelines will help you care for yourself at home: Rest today. Resume your normal activities as soon as you are feeling back to normal. If you become lightheaded or dizzy, lie down right away or sit with your head between your knees. Drink plenty of fluids and don't skip meals. Because the exact cause of your near fainting spell is not known, another spell could occur without warning. To stay safe, do not drive a car or use dangerous equipment. Do not take a bath alone. Use a shower instead. Do not swim alone. You can resume these activities when your healthcare provider says that you are no longer in danger of having a near-fainting spell. Follow-up care Follow up with your healthcare provider, or as advised. Call 911 Call 911 if any of the following occur: Another near-fainting or full fainting spell occurs, and it is not explained by the common causes listed above Chest, arm, neck, jaw, back or abdominal pain Shortness of breath Weakness, tingling, or numbness in one side of the face, or in one arm or leg Slurred speech, confusion, trouble walking or seeing Seizure When to seek medical advice Call your healthcare provider right away if any of these occur: Changes in your medicines Occasional mild lightheadedness, especially when standing up too quickly or straining [phone] [employer]. [address] [place] [address]. All rights reserved. This information is not intended as a substitute for professional medical care. Always follow your healthcare professional's instructions. Follow Up Care 01/24/2025 18:10:03 With:[facility] Address: [address] [place] [phone] When:2-4 days [facility] 01-24-2025 Note Discharge Instructions Thank you for allowing [facility] to assist you with your healthcare needs. The following is important discharge information regarding your hospital visit. Diagnosis from Today's Visit Hyperglycemia Syncope, near UTI (urinary tract infection) What to Do Next Instructions from Your Care Team No qualifying data available. Post Acute Orders No qualifying data available. You Need to Schedule the Following Appointments Follow Up with [facility] When:Within 2-4 days Where:[address] [place] [address]- [phone] Allergies Toradol Hives metronidazole Medications Please ask your primary doctor or pharmacist before taking any other medication not listed, including over the counter drugs, herbal medications, vitamins and or supplements as they may interact with your home medications. What How Much When Instructions Last Dose New cephalexin (cephalexin 500 mg oral capsule) 1 cap by mouth Every 12 hours Duration: 7 Days Printed Prescription Unchanged ethinyl estradiol-etonogestrel (EnilloRing 0.12 mg-0.015 mg/ 24 hours vaginal ring) 1 Each Vaginal Every 4 weeks Insert a new ring on day 1 and use for 3 weeks, remove for 1 week, then repeat cycle Unchanged glucagon (Baqsimi One Pack 3 mg nasal powder) 1 puff(s) Intranasal As Directed as needed for Low blood sugar low blood sugar Unchanged insulin glargine (Lantus) Subcutaneous Once a day Unchanged insulin lispro (HumaLOG) (insulin lispro (Humalog) 100 units/ mL injectable solution) Unchanged Misc Medication (Omnipod 5 G6-G7 Pods (Gen 5) subcutaneous cartridge) Please take this list to your next doctor s visit. Bring all medications you take, including over the counter medications, herbals and other supplements with you to your doctor s visit. Patients and families are reminded to discard old lists and to update any records with all medication providers or retail pharmacies. Medication Leaflets cephalexin (sef a DARIN in) What is the most important information I should know about cephalexin? You should not use this medicine if you are allergic to cephalexin or to similar antibiotics, such as Ceftin, Cefzil, Omnicef, and others. Tell your doctor if you are allergic to any drugs, especially penicillins or other antibiotics. What is cephalexin? Cephalexin is a cephalosporin (SEF a low spor in) antibiotic that is used to treat bacterial infections of the lungs, ear, skin, bones, bladder, and kidneys. Cephalexin is used to treat infections in adults and children who are at least 1 year old. Cephalexin may also be used for purposes not listed in this medication guide. What should I discuss with my healthcare provider before taking cephalexin? You should not use this medicine if you are allergic to cephalexin or any other cephalosporin antibiotic (cefdinir, cefadroxil, cefoxitin, cefprozil, ceftriaxone, cefuroxime, Omnicef, and others). Tell your doctor if you have ever had: an allergy to any drug (especially penicillin); liver or kidney disease; or intestinal problems, such as colitis. The liquid form of cephalexin may contain sugar. This may affect you if you have diabetes. Tell your doctor if you are or breast-feeding. How should I take cephalexin? Follow all directions on your prescription label and read all medication guides or instruction sheets. Use the medicine exactly as directed. Do not use cephalexin to treat any condition that has not been checked by your doctor. Measure liquid medicine carefully. Use the dosing syringe provided, or use a medicine dose-measuring device (not a kitchen spoon). Use this medicine for the full prescribed length of time, even if your symptoms quickly improve. Skipping doses can increase your risk of infection that is resistant to medication. Cephalexin will not treat a viral infection such as the flu or a common cold. Do not share cephalexin with another person, even if they have the same symptoms you have. This medicine can affect the results of certain medical tests. Tell any doctor who treats you that you are using cephalexin. Store the tablets and capsules at room temperature away from moisture, heat, and light. Store the liquid medicine in the refrigerator. Throw away any unused liquid after 14 days. What happens if I miss a dose? Take the medicine as soon as you can, but skip the missed dose if it is almost time for your next dose. Do not take two doses at one time. What happens if I overdose? Seek emergency medical attention or call the Poison Help line at . Overdose symptoms may include nausea, vomiting, stomach pain, diarrhea, and blood in your urine. What should I avoid while taking cephalexin? Antibiotic medicines can cause diarrhea, which may be a sign of a new infection. If you have diarrhea that is watery or bloody, call your doctor before using anti-diarrhea medicine. What are the possible side effects of cephalexin? Get emergency medical help if you have signs of an allergic reaction (hives, difficult breathing, swelling in your face or throat) or a severe skin reaction (fever, sore throat, burning eyes, skin pain, red or purple skin rash with blistering and peeling). Call your doctor at once if you have: severe stomach pain, diarrhea that is watery or bloody (even if it occurs months after your last dose); unusual tiredness, feeling light-headed or short of breath; easy bruising, unusual bleeding, purple or red spots under your skin; a seizure; pale skin, cold hands and feet; yellowed skin, dark colored urine; fever, weakness; or pain in your side or lower back, painful urination. Common side effects may include: diarrhea; nausea, vomiting; indigestion, stomach pain; or vaginal itching or discharge. This is not a complete list of side effects and others may occur. Call your doctor for medical advice about side effects. You may report side effects to FDA at 4-852-IHP-7411. What other drugs will affect cephalexin? Tell your doctor about all your other medicines, especially: metformin; or probenecid. This list is not complete. Other drugs may affect cephalexin, including prescription and iagz-cle-tzjvwxz medicines, vitamins, and herbal products. Not all possible drug interactions are listed here. Where can I get more information? Your pharmacist can provide more information about cephalexin. Remember, keep this and all other medicines out of the reach of children, never share your medicines with others, and use this medication only for the indication prescribed. Every effort has been made to ensure that the information provided by [employer]. ('[employer]') is accurate, up-to-date, and complete, but no guarantee is made to that effect. Drug information contained herein may be time sensitive. [employer] information has been compiled for use by healthcare practitioners and consumers in the [place] and therefore [employer] does not warrant that uses outside of the [place] are appropriate, unless specifically indicated otherwise. [employer] drug information does not endorse drugs, diagnose patients or recommend therapy. [employer] drug information is an informational resource designed to assist licensed healthcare practitioners in caring for their patients and/or to serve consumers viewing this service as a supplement to, and not a substitute for, the expertise, skill, knowledge and judgment of healthcare practitioners. The absence of a warning for a given drug or drug combination in no way should be construed to indicate that the drug or drug combination is safe, effective or appropriate for any given patient. [employer] does not assume any responsibility for any aspect of healthcare administered with the aid of information [employer] provides. The information contained herein is not intended to cover all possible uses, directions, precautions, warnings, drug interactions, allergic reactions, or adverse effects. If you have questions about the drugs you are taking, check with your doctor, nurse or pharmacist. Copyright [id number] [employer]. Version: 05.29. Revision Date: 01/28/2023. fluconazole (oral/injection) (floo KOE na zole) Diflucan What is the most important information I should know about fluconazole? Tell your doctor about all your current medicines and any you start or stop using. Many drugs can interact, and some drugs should not be used together. What is fluconazole? Fluconazole is an antifungal medicine that is used to treat infections caused by fungus, which can invade any part of the body including the mouth, throat, esophagus, lungs, bladder, genital area, and the blood. Fluconazole is also used to prevent fungal infection in people who have a weak immune system caused by cancer treatment, bone marrow transplant, or diseases such as AIDS. Fluconazole is also used to treat a certain type of meningitis in people with HIV or AIDS. Fluconazole may also be used for purposes not listed in this medication guide. What should I discuss with my healthcare provider before receiving fluconazole? You should not use fluconazole if you are allergic to it. Some drugs should not be used with fluconazole. Your treatment plan may change if you also use: lemborexant, abrocitinib, theophylline, fentanyl, alfentanil, methadone, pimozide, tofacitinib, tolvaptan, or a vitamin A supplement; an antibiotic, antifungal, or antiviral medicine; a blood thinner; cancer medicine; cholesterol medication; oral diabetes medicine; heart or blood pressure medication; medicine for malaria or tuberculosis; medicine to prevent organ transplant rejection; medicine to treat depression or mental illness; an NSAID (nonsteroidal anti-inflammatory drug); seizure medicine; or steroid medicine. Tell your doctor if you have ever had: liver or kidney disease; low levels of potassium in your blood; heart problems; or if you are allergic to other antifungal medicine (such as ketoconazole, itraconazole, miconazole, posaconazole, voriconazole, and others). The liquid form of fluconazole contains sucrose. Talk to your doctor before taking this form of fluconazole if you have a problem digesting sugars or milk. May harm an unborn baby. Use effective control while using fluconazole and for at least 1 week after your last dose. Tell your doctor if you become . Ask a doctor if it is safe to breastfeed while using this medicine. How is fluconazole given? Follow all directions on your prescription label and read all medication guides or instruction sheets. Use the medicine exactly as directed. Your dose will depend on the infection you are treating. Vaginal infections are often treated with only one pill. For other infections, your first dose may be a double dose. Carefully follow your doctor's instructions. Fluconazole oral is taken by mouth. Fluconazole injection is given as an infusion into a vein. You may take fluconazole oral with or without food. Shake the oral suspension (liquid) before you measure a dose. Use the dosing syringe provided, or use a medicine dose-measuring device (not a kitchen spoon). Fluconazole injection is given as an infusion into a vein. A healthcare provider will give your first dose and may teach you how to properly use the medication by yourself. Prepare an injection only when you are ready to give it. Do not use if the medicine looks cloudy, has changed colors, or has particles in it. Call your pharmacist for new medicine. Use fluconazole for the full prescribed length of time, even if your symptoms quickly improve. Skipping doses can increase your risk of infection that is resistant to medication. Fluconazole will not treat a viral infection such as the flu or a common cold. Call your doctor if your symptoms do not improve, or if they get worse. Store at room temperature away from moisture and heat. Do not freeze. You may store the oral suspension between 86 F (30 C) and 41 F (5 C), but do not allow it to freeze. Throw away any leftover liquid that is more than 2 weeks old. What happens if I miss a dose? Use the medicine as soon as you can, but skip the missed dose if it is almost time for your next dose. Do not use two doses at one time. What happens if I overdose? Seek emergency medical attention or call the Poison Help line at . Overdose symptoms may include confusion or unusual thoughts or behavior. What should I avoid while using fluconazole? Avoid driving or hazardous activity until you know how this medicine will affect you. Your reactions could be impaired. What are the possible side effects of fluconazole? Get emergency medical help if you have signs of an allergic reaction (hives, difficult breathing, swelling in your face or throat) or a severe skin reaction (fever, sore throat, burning eyes, skin pain, red or purple skin rash with blistering and peeling). Call your doctor at once if you have: fast or pounding heartbeats, fluttering in your chest, shortness of breath, and sudden dizziness (like you might pass out); seizure (convulsions); skin rash or skin lesions; decreased adrenal gland hormones--nausea, vomiting, stomach pain, loss of appetite, feeling tired or light-headed, muscle or joint pain, skin discoloration, craving salty foods; or liver problems--loss of appetite, stomach pain (upper right side), tiredness, itching, dark urine, gavin-colored stools, jaundice (yellowing of the skin or eyes). Common side effects may include: nausea, stomach pain, diarrhea, upset stomach; headache; dizziness; or changes in your sense of taste. This is not a complete list of side effects and others may occur. Call your doctor for medical advice about side effects. You may report side effects to FDA at [phone]-AYZ-9885. What other drugs will affect fluconazole? Sometimes it is not safe to use certain medications at the same time. Some drugs can affect your blood levels of other drugs you take, which may increase side effects or make the medications less effective. Fluconazole can cause a serious heart problem. Your risk may be higher if you also use certain other medicines for infections, asthma, heart problems, high blood pressure, depression, mental illness, cancer, malaria, or HIV. Many drugs can affect fluconazole, and some drugs should not be used at the same time. Tell your doctor about all your current medicines and any medicine you start or stop using. This includes prescription and sued-ywn-rbqkxlt medicines, vitamins, and herbal products. Not all possible interactions are listed here. Where can I get more information? Your doctor or pharmacist can provide more information about fluconazole. Remember, keep this and all other medicines out of the reach of children, never share your medicines with others, and use this medication only for the indication prescribed. Every effort has been made to ensure that the information provided by [employer]. ('[employer]') is accurate, up-to-date, and complete, but no guarantee is made to that effect. Drug information contained herein may be time sensitive. [employer] information has been compiled for use by healthcare practitioners and consumers in the [place] and therefore [employer] does not warrant that uses outside of the [place] are appropriate, unless specifically indicated otherwise. [employer] drug information does not endorse drugs, diagnose patients or recommend therapy. [employer] drug information is an informational resource designed to assist licensed healthcare practitioners in caring for their patients and/or to serve consumers viewing this service as a supplement to, and not a substitute for, the expertise, skill, knowledge and judgment of healthcare practitioners. The absence of a warning for a given drug or drug combination in no way should be construed to indicate that the drug or drug combination is safe, effective or appropriate for any given patient. [employer] does not assume any responsibility for any aspect of healthcare administered with the aid of information [employer] provides. The information contained herein is not intended to cover all possible uses, directions, precautions, warnings, drug interactions, allergic reactions, or adverse effects. If you have questions about the drugs you are taking, check with your doctor, nurse or pharmacist. Copyright 9669-9122 [facility] [employer]. Version: 14.. Revision Date: 07/23/2022. Education Materials How to Check Your Blood Sugar Keeping track of how much sugar (glucose) is in your blood is an important part of self-care when you have diabetes. This is also called self-monitoring of blood glucose (SMBG). To make sure your glucose and insulin are in balance, check your blood sugar as instructed by your healthcare provider. You may need to check your blood glucose levels at certain times every day. Or you may need to check them only a few times a week. What you need To check your blood sugar, make sure you have the following: A small pricking needle (lancing device) Test strips A glucose meter. Be sure the test strips match the glucose meter. A notebook, chart, or log book and pen or pencil Using a blood glucose meter You can check your blood sugar at home, at work, and anywhere else. Your diabetes team will help you choose a blood glucose meter. A meter measures the amount of glucose in a tiny drop of blood. You ll use a device called a lancet to draw a drop of blood. Put the strip in the meter first. Then touch the test strip to the drop of blood. The meter then gives you a number (reading) that tells you the level of your blood sugar. Aim for your target range Your blood sugar should be in your target range not too high and not too low. A target range is where your blood sugar level is healthiest. Staying in this range as much as possible will help lower your risk for health problems (complications). Your diabetes team will help you figure out the best target range for you. That range depends on many things. They include your age, other health problems, how well your diabetes is controlled, and how long you have had diabetes. In general, target ranges are: Control of blood glucose (hemoglobin A1c or A1c). This should generally be 7.0% or less. You will usually have this test at the lab. Before a meal (preprandial glucose). The target range is between 80 and 130 mg/dL. One to 2 hours after a meal (postprandial glucose). The range is less than 180 mg/dL. Track your readings Use a notebook, chart, or log book to keep track of your readings. Write down the date, time, and your blood sugar level numbers. This helps you see patterns, such as high blood sugar after eating certain foods. Take your log along when you see your healthcare provider. If you would rather track your readings digitally, the [place] [employer] (ADA) has a program called Diabetes 19/01. This online program gives you tools to help monitor diabetes, including blood glucose levels. Your provider may also have an electronic medical record that offers the same type of tracking options. Your blood glucose levels will help your provider decide if he or she needs to make any changes to your management plan. To check your blood sugar, follow the steps below Step 1. Get ready Wash your hands with soap and warm (not hot) water. Follow all of the instructions that came with your glucose meter. Be sure that your test strips were designed to be used with your meter and are not . Step 2. Draw a drop of blood Prick the side of your finger with the lancet. Squeeze gently until you get a drop of blood. Squeezing too hard can cause an inaccurate reading. Put the lancet in a special sharps container. Ask your healthcare team where you can buy one or what you can use to throw away any sharps. If you are unable to get enough blood, hold your hand at your side and gently shake it. If this is a common problem for you, ask your healthcare provider if you can use other parts of your body to get the blood from. Step 3. Place the drop on a strip Wait for the meter to show a message or symbol that it is time to test. Touch the test strip to the drop of blood. Follow the instructions included with meter. Step 4. Read and record your results Wait for your meter to show the result. If you see an error message, recheck using a fresh strip and a fresh drop of blood. Also recheck if the glucose numbers aren't what you expect too low without symptoms, or too high for no reason. Write the results in your log book. Bring your log book to you next appointment. 9542-8491 [employer]. [address] [place] [address], [place] [address]. All rights reserved. This information is not intended as a substitute for professional medical care. Always follow your healthcare professional's instructions. Near-Fainting with Uncertain Cause Fainting (syncope) is a temporary loss of consciousness (passing out). This happens when blood flow to the brain is reduced. Near-fainting (near-syncope) is like fainting, but you do not fully pass out. Instead, you feel like you are going to pass out, but do not actually lose consciousness. Signs and symptoms The following are symptoms of near-fainting: Feeling lightheaded or like you are going to faint Weak pulse Nausea Sweating Blurred vision or feeling like your vision is fading Palpitations Chest pain Hard time breathing Feeling cool and clammy Causes This happens when your blood pressure suddenly drops, and not enough blood flows to your brain. Common minor causes include: Sudden emotional stress such as fear, pain, panic, or the sight of blood Straining or overexertion, such as straining while using the toilet, coughing, or sneezing Standing up too quickly, or standing up for too long a time More serious causes include: Very slow, fast, or irregular heart rate (arrhythmia) Dehydration Significant blood loss Medicines, or a recent change in medicines. Medicines that can cause fainting include blood pressure or heart medicines. Heart attack Heart valve problems Remember, even minor causes can become serious if you fall and injure yourself, or are driving. You may need more tests. It is very important that you follow up with your doctor as advised. Home care The following guidelines will help you care for yourself at home: Rest today. Resume your normal activities as soon as you are feeling back to normal. If you become lightheaded or dizzy, lie down right away or sit with your head between your knees. Drink plenty of fluids and don't skip meals. Because the exact cause of your near fainting spell is not known, another spell could occur without warning. To stay safe, do not drive a car or use dangerous equipment. Do not take a bath alone. Use a shower instead. Do not swim alone. You can resume these activities when your healthcare provider says that you are no longer in danger of having a near-fainting spell. Follow-up care Follow up with your healthcare provider, or as advised. Call 911 Call 911 if any of the following occur: Another near-fainting or full fainting spell occurs, and it is not explained by the common causes listed above Chest, arm, neck, jaw, back or abdominal pain Shortness of breath Weakness, tingling, or numbness in one side of the face, or in one arm or leg Slurred speech, confusion, trouble walking or seeing Seizure When to seek medical advice Call your healthcare provider right away if any of these occur: Changes in your medicines Occasional mild lightheadedness, especially when standing up too quickly or straining [phone] [employer] [address] [place] [address]. All rights reserved. This information is not intended as a substitute for professional medical care. Always follow your healthcare professional's instructions. Additional Information VACCINATE! IT SAVES LIVES! Members of the community who have not yet received the COVID-19 vaccine and would like to receive it can visit one of [facility] vaccine clinics. There are many vaccine clinic locations within the [facility]. For locations and available times, please visit [email or web address] [email or web address] It is important to note that some COVID mobile vaccine clinics are held outdoors and may be canceled in rainy or stormy conditions. To learn more about pediatric vaccinations (ages 5-11), we invite you to visit the [facility] webpage. [email or web address]/p [email or web address] [email or web address].html To learn more about the COVID-19 vaccine, we invite you to visit the CDC website for a list of frequently asked questions. https://www.cdc.gov/coronavirus/ 2019-ncov/vaccines/faq.html [facility] Patient Portal Access Instructions: Stay connected with your healthcare team and access your personal medical information anytime with the [facility] Patient Portal. If you would like a full copy of your medical records please contact the [facility] Medical Records Department Thursday through Thursday between 8a.m. and 4:30p.m. Please follow the directions below to access the portal: 1.Access the email account you provided upon registration to the [facility].2.Look for an invitation email from [facility].3.Open the email and access the invitation link: Accept Invitation to [facility]4.Fill in the required heck to create your account. Sign into [email or web address] with your username and password that you created in the above steps to stay up to date. You can then view a summary of results, a summary of your visits, and the ability to download your summaries to your computer or send the information securely to a physician. Remember that your healthcare information is confidential, so carefully consider who you will allow to register on the [facility] Patient Portal for access to your information. You can also access the [facility] Patient Portal on the [place] [employer]. Simply click on Health Records under Health Data and then click on the [employer] logo. HOW TO SAFELY DISPOSE OF PRESCRIPTION MEDICATIONS Please use one of the following methods to safely dispose of your unused medications. 1.Use a drug disposal kit: the drug disposal pouch allows you to safely discard your old and unused drugs. Ask your nurse to give you one when you are discharged.2.Visit a local take-back location: Many local pharmacies and police departments have programs that collect old and unwanted prescription drugs. Call your local pharmacy or go to http://bit.PopSeal/9G6Lh5c to find one close to you.3.Make use of household items: Use cat litter or old coffee grounds to dispose medications if other options are not available. Mix your drugs with these household products, seal them in an airtight container and throw it into the garbage. Call [facility]: [phone] to be sure your drugs can be disposed of in this way. Some medicines may require a different approach.4.Never flush your medications down the toilet. IF YOU HAVE BEEN PRESCRIBED AN OPIOIDS FOR PAIN If you have been prescribed an opioid (such as hydrocodone, oxycodone or morphine), it is critical to understand the possible side effects and risks of opioid pain medications. Even when taken as directed, opioids can have several side effects including: Tolerance, meaning you might need to take more of a medication for the same pain relief. Nausea, vomiting and/or constipation. Sleepiness, dizziness, dry mouth, confusion, depression or itching. Physical dependence, meaning you have withdrawal symptoms when a medication is stopped ? this can develop within a few days. KNOW YOUR RESPONSIBILITIES It is important to know exactly how much and how often to take the opioid pain medications you are prescribed. Never take opioids in higher amounts or more often than prescribed. Do not combine opioids with alcohol or other drugs that cause drowsiness, such as benzodiazepines, also known as benzos, including diazepam and alprazolam, muscle relaxants or sleep aids. Never sell or share prescription opioids. This is illegal. Store opioids in a secure place and out of reach of others (including children, family, friends and visitors). The last page(s) of this document has been signed and retained as a CHART COPY Signatures Patient Education Materials How to Check Your Blood Sugar Near Syncope, Unknown Medication Leaflets cephalexin, Diflucan My discharge plan and instructions have been reviewed and explained to me and IMARILIA JAYCEE E understand my current condition and have read and understand these discharge instructions. I have received a written copy of the plan/instructions. If I have questions, I am aware that I should contact my doctor. 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: Date/Time: Relationship to Patient: Witness Name/Signature: Date/Time: [facility] 01-24-2025 Note Exam Date Time Procedure Performing Provider Status 01/24/25 7:35 PM EKG [ED AOH] - CV DEVORAH AMIN DO ; Auth (Verified) ECG Final Report Sinus rhythm Borderline T wave abnormalities Compared to ECG at 01/10/2025 14:50:55 BORDERLINE ECG Electronic Signature: DEVORAH AMIN DO 01/24/2025 20:12:27 [facility]07-29-2025 Evaluation + Plan note Diagnostic Tests Pending * Urine Culture 01/24/25 [facility] 07-21-2025 Miscellaneous Notes* Telephone Encounter - Britni Terry - 01/16/2025 8:48 AM EDT 1st attempt unable to lvm in regards 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 [facility]07-15-2025 Hospital Discharge instructions Patient Education 01/10/2025 16:55:09 Diabetes with High Blood Sugar Diabetes with High Blood Sugar You have been treated for high blood sugar (hyperglycemia). This may be because of an infection or other illness. Or it may be from eating too many sweets or starches. Or it may be from not taking enough insulin or other diabetes medicine. Home care Check your blood sugar level at least 2 times a day. Write it down the results. Do this before breakfast and before dinner. If you take insulin, also write down your routine insulin dose. Note any other doses you needed based on your sliding scale or as advised by your healthcare provider. Do this for the next 3 to 5 days. High blood sugar may cause symptoms that you can learn to spot. These include: Peeing often Thirst Headache Breath that smells fruity Nausea or vomiting Belly pain If you have symptoms of high blood sugar, use a blood or urine test to find out what your blood sugar level is. If it is above your usual range, use the sliding scale regular insulin dose from your healthcare provider. Call your provider for advice if you were not given a range for your insulin dose. If your blood sugar is over 240 mg/dL, check your urine for ketones. Follow-up care Follow up with your healthcare provider, or as advised. You may need to meet with your provider in the next week. You will likely look at your blood sugar records together. You may need to change your dose of insulin or other diabetes medicine. When to seek medical advice Call your healthcare provider right away if these occur: Symptoms of high blood sugar that don't get better with the treatment your provider advised. This is especially true if you also have ketones in your urine. Blood sugar over 300 mg/dl. If you can t reach your healthcare provider, go to a hospital emergencyroom or urgent care center. Call 911 Call 911 if you have any of the following: Confusion Dizziness, lightheadedness, or loss of consciousness Shortness of breath Chest pain Weakness of an arm, leg, or one side of the face Sudden trouble with speech or vision [id number] [employer]. [address] [place] [address]. All rights reserved. This information is not intended as a substitute for professional medical care. Always follow yourhealthcare professional's instructions. Follow Up Care 01/10/2025 14:19:44 With:BRITTANI BRISCOE MD, [facility] Address: [address] [place] [address]- [phone] When:2-4 days With:CONNOR DE SANTIAGO MD Address: [address] [facility] [place] [address]- [phone] When:2-4 days [facility] 07-15-2025 Note Discharge Instructions Thank you for allowing [facility] to assist you with your healthcare needs. The following is importantdischarge information regarding your hospital visit. Diagnosis from Today's Visit Hyperglycemia What to Do Next Instructions from Your Care Team Discharge Return to Work, School, or Sports (Return to Work, School, or Sports) - Ordered -- May return to: work, 01/10/25 16:57:00 EDT Post Acute Orders No qualifying data available. You Need to Schedule the Following Appointments Follow Up with BRITTANI BRISCOE MD, [facility] When:Within 2-4 days Where:[address] [place] [address] [phone] Follow Up with CONNOR DE SANTIAGO MD When:Within 2-4 days Where:[address] [facility] [place] [address]- [phone] Allergies Toradol Hives metronidazole Medications Please ask your primary doctor or pharmacist before taking any other medication not listed, including over the counter drugs, herbal medications, vitamins and or supplements as they may interact withyour home medications. What How Much When Instructions Last Dose Unchanged ethinyl estradiol- etonogestrel (EnilloRing 0.12mg-0.015 mg/ 24 hours vaginal ring) 1 Each Vaginal Every 4 weeks Insert a new ring on day 1 and use for 3 weeks, remove for 1 week, then repeat cycle Unchanged glucagon (Baqsimi One Pack 3 mg nasal powder) 1 puff(s) Intranasal As Directed as needed for Low blood sugar low blood sugar Unchanged insulin glargine (Lantus) Subcutaneous Once a day Unchanged insulin lispro (HumaLOG) (insulin lispro (Humalog) 100 units/ mL injectable solution) Unchanged Misc Medication (Omnipod 5 G6-G7 Pods (Gen 5) subcutaneous cartridge) Please take this list to your next doctor s visit. Bring all medications you take, including over the counter medications, herbals and other supplements with you to your doctor s visit. Patients and families are reminded to discard old lists and to update any records with all medication providers or retail pharmacies. Education Materials Diabetes with High Blood Sugar You have been treated for high blood sugar (hyperglycemia). This may be because of an infection or other illness. Or it may be from eating too many sweets or starches. Or it may be from not taking enough insulin or other diabetes medicine. Home care Check your blood sugar level at least 2 times a day. Write it down the results. Do this before breakfast and before dinner. If you take insulin, also write down your routine insulin dose. Note any other doses you needed based on your sliding scale or as advised by your healthcare provider. Do this for the next 3 to 5 days. High blood sugar may cause symptoms that you can learn to spot. These include: Peeing often Thirst Headache Breath that smells fruity Nausea or vomiting Belly pain If you have symptoms of high blood sugar, use a blood or urine test to find out what your blood sugar level is. If it is above your usual range, use the sliding scale regular insulin dose from your healthcare provider. Call your provider for advice if you were not given a range for your insulin dose. If your blood sugar is over 240 mg/dL, check your urine for ketones. Follow-up care Follow up with your healthcare provider, or as advised. You may need to meet with your provider in the next week. You will likely look at your blood sugar records together. You may need to change your dose of insulin or other diabetes medicine. When to seek medical advice Call your healthcare provider right away if these occur: Symptoms of high blood sugar that don't get better with the treatment your provider advised. This is especially true if you also have ketones in your urine. Blood sugar over 300 mg/dl. If you can t reach your healthcare provider, go to a hospital emergencyroom or urgent care center. Call 911 Call 911 if you have any of the following: Confusion Dizziness, lightheadedness, or loss of consciousness Shortness of breath Chest pain Weakness of an arm, leg, or one side of the face Sudden trouble with speech or vision [phone] [employer]. [address] [place] [address]. All rights reserved. This information is not intended as a substitute for professional medical care. Always follow yourhealthcare professional's instructions. Additional Information VACCINATE! IT SAVES LIVES! Members of the community who have not yet received the COVID-19 vaccine and would like to receive it can visit one of [facility] vaccine clinics. There are many vaccine clinic locations within the [facility]. For locations and available times, please visit [email or web address]/. It is important to note that some COVID mobile vaccine clinics are held outdoors and may be canceled in rainy or stormy conditions. To learn more about pediatric vaccinations (ages 5-11), we invite you to visit the [facility] webpage. [email or web address]/pages/[email or web address] stions.htmlTo learn more about the COVID-19 vaccine, we invite you to visit the CDC website for a list of frequently asked questions. https://www.cdc.gov/coronavirus/2019-ncov/vaccines/faq.html [facility] Patient Portal Access Instructions: Stay connected with your healthcare team and access your personal medical information anytime with the [facility] Patient Portal. If you would like a full copy of your medical records please contact the [facility] Medical Records Department Thursday through Thursday between 8a.m. and 4:30p.m. Please follow the directions below to access the portal: 1.Access the email account you provided upon registration to the [facility].2.Look for an invitation email from [facility].3.Open the email and access the invitation link: Accept Invitation to [facility]4.Fill in the required heck to create your account. Sign into [email or web address] with your username and password that you created in the above steps to stay up to date. You can then view a summary of results, a summary of your visits, and the ability to download your summaries to your computer or send the information securely to a physician. Remember that your healthcare information is confidential, so carefully consider who you will allow to register on the [facility] Patient Portal for access to your information. You can also access the [facility] Patient Portal on the [employer]. Simply click on Health Records under [employer] and then click on the [employer] logo. HOW TO SAFELY DISPOSE OF PRESCRIPTION MEDICATIONS Please use one of the following methods to safely dispose of your unused medications. 1.Use a drug disposal kit: the drug disposal pouch allows you to safely discard your old and unuseddrugs. Ask your nurse to give you one when you are discharged.2.Visit a local take-back location: Many local pharmacies and police departments have programs that collect old and unwanted prescriptiondrugs. Call your local pharmacy or go to http://bit.PopSeal/7X1Kh4c to find one close to you.3.Make use of household items: Use cat litter or old coffee grounds to dispose medications if other options arenot available. Mix your drugs with these household products, seal them in an airtight container andthrow it into the garbage. Call [facility]: [phone] to be sure your drugs can be disposed of in this way. Some medicines may require a different approach.4.Never flush your medications down the toilet. IF YOU HAVE BEEN PRESCRIBED AN OPIOIDS FOR PAIN If you have been prescribed an opioid (such as hydrocodone, oxycodone or morphine), it is critical to understand the possible side effects and risks of opioid pain medications. Even when taken as directed, opioids can have several side effects including: Tolerance, meaning you might need to take more of a medication for the same pain relief. Nausea, vomiting and/or constipation. Sleepiness, dizziness, dry mouth, confusion, depression or itching. Physical dependence, meaning you have withdrawal symptoms when a medication is stopped ? this can develop within a few days. KNOW YOUR RESPONSIBILITIES It is important to know exactly how much and how often to take the opioid pain medications you are prescribed. Never take opioids in higher amounts or more often than prescribed. Do not combine opioids with alcohol or other drugs that cause drowsiness, such as benzodiazepines, also known as benzos,including diazepam and alprazolam, muscle relaxants or sleep aids. Never sell or share prescriptionopioids. This is illegal. Store opioids in a secure place and out of reach of others (including children, family, friends and visitors). The last page(s) of this document has been signed and retained as a CHART COPY Signatures Patient Education Materials Diabetes with High Blood Sugar Medication Leaflets My discharge plan and instructions have been reviewed and explained to me and IMARILIA JAYCEE E understand my current condition and have read and understand these discharge instructions. I have received a written copy of the plan/instructions. If I have questions, I am aware that I should contact my doctor. 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: Date/Time: Relationship to Patient: Witness Name/Signature: Date/Time: [facility]07-15-2025 Note* Exam Date Time Procedure Performing Provider Status 01/10/25 3:09 PM XR Chest 1 View ANNE ESPINOZA MD; A [facility] (Verified) [id number] ORIGINAL EXAMINATION: ONE XRAY VIEW OF THE CHEST01/10/2025 3:11 pm COMPARISON: 06/08/2024 HISTORY: ORDERING SYSTEM PROVIDED HISTORY: Reason for Exam: Diabetes FINDINGS: Cardiomediastinal contours are stable. No focal consolidation or pulmonary edema. No pneumothorax or pleural effusion. No acute osseous abnormalities. IMPRESSION: No acute radiographic findings. I have personally reviewed the images of this examination and agree with the resident's findings and interpretation. Interpreted by: Anne Espinoza Preliminary Report By: Marshal Burton MD Electronically signed By Anne Espinoza Dictated Date: 01/10/2025 3:12:55 PM Prelim Date: 01/10/2025 3:22:58 PM Sign Date: 01/10/2025 3:22:58 PM Ordering Provider: VIRGINIA KULKARNI [facility]07-15-2025 Note* Exam Date Time Procedure Performing Provider Status 01/10/25 2:50 PM EKG [ED AO] - CV ROLAND REDDY DO; [facility] (Verified) ECG Final Report Sinus rhythm Borderline short SD interval Probable left atrial enlargement Borderline repolarization abnormality Electronic Signature: ROLAND REDDY DO 01/10/2025 15:36:59 [facility]07-08-2025 Telephone encounter Note* Telephone Encounter - Jairo Michael RN - 01/03/2025 1:55 PM EDT OPENED IN ERROR. [facility]07-08-2025 Miscellaneous Notes* Telephone Encounter - Jairo Michael RN - 01/03/2025 1:55 PM EDT OPENED IN ERROR. [facility] Telephone encounter Note * Telephone Encounter - Neha Whitfield APRN.CNM - 12/19/2024 3:26 PM EDT I would recommend having review tomorrow since she seen her at last appointment. She justseen her on 12/13 and can offer anything that was concerning at her appointment. Neha Bragg APRN.CNM [facility] Work Phone: [phone]) 459-342206-23-2025 Miscellaneous Notes* Telephone Encounter - Neha Whitfield APRN.CNM - 12/19/2024 3:26 PM EDT I would recommend having review tomorrow since she seen her at last appointment. She justseen her on 12/13 and can offer anything that was concerning at her appointment. Neha Bragg APRN.CNM * Telephone Encounter - Jazzy Cunningham RN - 12/19/2024 3:07 PM EDT Can you review in Dr. Joshi's absence? Jazzy Cunningham RN documented in this [facility]06-[facility]25 Telephone encounter Note * Telephone Encounter - Jazzy Cunningham RN - 12/19/2024 3:07 PM EDT Can you review in Dr. Joshi's absence? Jazzy Cunningham RN [facility]06-17-2025 NoteHNO ID: [id number] Author: BREANNE JOSHI MD Service: ? Author Type: Physician Type: Progress Notes Filed: 12/13/2024 16:45 Note Text: Catalina Capellan is a 18 year old female who presents for problem visit HPI: Irregular bleeding for the last 3 months. Has been using the patch for BC> Bleeding does not happen during the week of no patch but then will start during the week of the new patch. Patch stays on. NO irritation. Has not missed any patches. Hgb A1c still high. Having difficulty with BS. Does not pereyra well with OCPS and does not want an IUD. Discussed Nuvaring as an option. Worried about possible . Negative urine HCG. 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: Sexual Activity: Yes; Male Contraception: No contraception data on record PAST MEDICAL HISTORY Diagnosis Date Constipated Eczema POTS (postural orthostatic tachycardia syndrome) Sprain of ligament of right ankle 04/10/2022 Type 1 diabetes (HCC) PAST SURGICAL HISTORY Procedure Laterality Date SECTION HX 01/2024 CYSTOSCOPY,INSERT URETHRAL STENT EGD LITHROTRIPSY FAMILY HISTORY Problem Relation Age of Onset other (Hysterectomy) Mother other (Other) Father Unknown GI Maternal Grandmother other (Sponge Kidney) Maternal Grandmother Hypertension Maternal Grandfather Heart Attack Maternal Grandfather Social History Tobacco Use Smoking status: Never Smokeless tobacco: Never Vaping Use Vaping status: current everyday user Substances: Nicotine Devices: Pre-filled pod Substance Use Topics Alcohol use: Never Drug use: Never Current Outpatient Medications Medication Sig fluticasone (FLONASE) 50 mcg/actuation nasal spray Use 2 sprays in each nostril once daily. Rinse mouth after use. DEXCOM G6 SENSOR leny Inject 1 Each subcutaneously every 2 weeks. insulin scallop cutter machine cart,aut,G6/7,cntr (OMNIPOD 5 G6-G7 INTRO KT,GEN5,) crtg For use with the pump Ethinyl Estradiol-Norelgestrom 150-35 mcg/24 hr patch Apply 1 Patch as directed one time a week. fluticasone (FLONASE) 50 mcg/actuation nasal spray Use 2 Sprays in each nostril once daily. Rinse mouth after use. (Patient not taking: Reported on 11/15/2024) insulin glargine (LANTUS SOLOSTAR U-100 INSULIN) 100 unit/mL (3 mL) Inject 15 Units subcutaneously daily at bedtime. (Patient taking differently: Inject 15 Units subcutaneously daily at bedtime. In case of pump failure) ONETOUCH DELICA PLUS LANCET 33 gauge Use with blood glucose test 4 times daily. Insulin Dep? Yes ONETOUCH VERIO TEST STRIPS test strip Use with blood glucose test 4 times daily. Insulin Dep? Yesday UNIFINE PENTIPS PLUS 32 gauge x Use as directed to administer insulin 4-6 times per day. Blood-Glucose Transmitter (DEXCOM G6 TRANSMITTER) leny 1 Each once every month. acetaminophen-caffeine (EXCEDRIN TENSION HEADACHE) 500-65 mg tablet Take 1 tablet by mouth every 6 hours as needed. cetirizine (ZYRTEC) 10 mg tablet Take 10 mg by mouth as needed for cold/allergy symptoms. As needed (Patient not taking: Reported on 09/20/2024) insulin pump cart,auto,BT,G6/7 (OMNIPOD 5 G6-G7 PODS, GEN 5,) crtg Inject 1 Each subcutaneously every 72 hours. insulin lispro (HUMALOG KWIKPEN) 100 unit/mL Inject up to 50units SQ daily as directed based on IC ratio and correction factor insulin lispro (HUMALOG KWIKPEN) 100 unit/mL In case of pump failure- take upto 30 units dialy alcohol swabs Use as directed to test metered glucose and administer insulin. ONETOUCH VERIO FLEX METER Use as directed to test metered glucose OMNIPOD 5 G6 INTRO KIT, GEN 5, crtg as directed. (Patient not taking: Reported on 11/15/2024) No current facility-administered medications for this visit. Allergies As of Date: 12/13/2024 Allergen Noted Reaction FLAGYL [METRONIDAZOLE] 09/10/2024 Intolerance KETOROLAC 07/03/2024 Hives Fully Assessed 11/23/2024 REVIEW OF SYSTEMS Abdomen: No bloating, early satiety, indigestion, or increased flatulence. No abdominal pain, nausea, vomiting, diarrhea, or constipation. Bladder: No dysuria, gross hematuria, urinary frequency, urinary urgency, or incontinence. Breast: No breast lumps, nipple d/c, overlying skin changes, redness or skin retraction. Expanded ROS: N/A Allergies and current medication updated:Yes SENSITIVE EXAM: The sensitive examination was discussed with the Patient or Patient's Authorized Imagery Analyst. As applicable, any other physician, advance practice provider, medical student, or other health professional student that will be observing or involved in the sensitive examination for educational or training purposes was discussed with the Patient or Authorized Imagery Analyst. The Patient or Authorized Imagery Analyst has agreed to proce (more content not included)...[facility]06-17-2025 History of Present illness Narrative* Breanne Joshi MD - 12/13/2024 3:07 PM EDT Catalina Capellan is a 18 year old female who presents for problem visit HPI: Irregular bleeding for the last 3 months. Has been using the patch for BC> Bleeding does not happen during the week of no patch but then will start during the week of the new patch. Patch stays on. NO irritation. Has not missed any patches. Hgb A1c still high. Having difficulty with BS. Does not pereyra well with OCPS and does not want an IUD. Discussed Nuvaring as an option. Worried about possible . Negative urine HCG. 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: Sexual Activity: Yes; Male Contraception: No contraception data on record PAST MEDICAL HISTORY Diagnosis Date Constipated Eczema POTS (postural orthostatic tachycardia syndrome) Sprain of ligament of right ankle 04/10/2022 Type 1 diabetes (HCC) PAST SURGICAL HISTORY Procedure Laterality Date SECTION HX 01/2024 CYSTOSCOPY,INSERT URETHRAL STENT EGD LITHROTRIPSY FAMILY HISTORY Problem Relation Age of Onset other (Hysterectomy) Mother other (Other) Father Unknown GI Maternal Grandmother other (Sponge Kidney) Maternal Grandmother Hypertension Maternal Grandfather Heart Attack Maternal Grandfather Social History Tobacco Use Smoking status: Never Smokeless tobacco: Never Vaping Use Vaping status: current everyday user Substances: Nicotine Devices: Pre-filled pod Substance Use Topics Alcohol use: Never Drug use: Never Current Outpatient Medications Medication Sig fluticasone (FLONASE) 50 mcg/actuation nasal spray Use 2 sprays in each nostril once daily. Rinse mouth after use. DEXCOM G6 SENSOR leny Inject 1 Each subcutaneously every 2 weeks. insulin scallop cutter machine cart,aut,G6/7,cntr (OMNIPOD 5 G6-G7 INTRO KT,GEN5,) crtg For use with the pump Ethinyl Estradiol-Norelgestrom 150-35 mcg/24 hr patch Apply 1 Patch as directed one time a week. fluticasone (FLONASE) 50 mcg/actuation nasal spray Use 2 Sprays in each nostril once daily. Rinse mouth after use. (Patient not taking: Reported on 11/15/2024) insulin glargine (LANTUS SOLOSTAR U-100 INSULIN) 100 unit/mL (3 mL) Inject 15 Units subcutaneously daily at bedtime. (Patient taking differently: Inject 15 Units subcutaneously daily at bedtime. In case of pump failure) ONETOUCH DELICA PLUS LANCET 33 gauge Use with blood glucose test 4 times daily. Insulin Dep? Yes ONETOUCH VERIO TEST STRIPS test strip Use with blood glucose test 4 times daily. Insulin Dep? Yesday UNIFINE PENTIPS PLUS 32 gauge x Use as directed to administer insulin 4-6 times per day. Blood-Glucose Transmitter (DEXCOM G6 TRANSMITTER) leny 1 Each once every month. acetaminophen-caffeine (EXCEDRIN TENSION HEADACHE) 500-65 mg tablet Take 1 tablet by mouth every 6 hours as needed. cetirizine (ZYRTEC) 10 mg tablet Take 10 mg by mouth as needed for cold/allergy symptoms. As needed(Patient not taking: Reported on 09/20/2024) insulin pump cart,auto,BT,G6/7 (OMNIPOD 5 G6-G7 PODS, GEN 5,) crtg Inject 1 Each subcutaneously every 72 hours. insulin lispro (HUMALOG KWIKPEN) 100 unit/mL Inject up to 50units SQ daily as directed based on IC ratio and correction factor insulin lispro (HUMALOG KWIKPEN) 100 unit/mL In case of pump failure- take upto 30 units dialy alcohol swabs Use as directed to test metered glucose and administer insulin. ONETOUCH VERIO FLEX METER Use as directed to test metered glucose OMNIPOD 5 G6 INTRO KIT, GEN 5, crtg as directed. (Patient not taking: Reported on 11/15/2024) No current facility-administered medications for this visit. Allergies As of Date: 12/13/2024 Allergen Noted Reaction FLAGYL [METRONIDAZOLE] 09/10/2024 Intolerance KETOROLAC 07/03/2024 Hives Fully Assessed 11/23/2024 REVIEW OF SYSTEMS Abdomen: No bloating, early satiety, indigestion, or increased flatulence. No abdominal pain, nausea, vomiting, diarrhea, or constipation. Bladder: No dysuria, gross hematuria, urinary frequency, urinary urgency, or incontinence. Breast: No breast lumps, nipple d/c, overlying skin changes, redness or skin retraction. Expanded ROS: N/A Allergies and current medication updated:Yes SENSITIVE EXAM: The sensitive examination was discussed with the Patient or Patient's Authorized Imagery Analyst. As applicable, any other physician, advance practice provider, medical student, or other health professional student that will be observing or involved in the sensitive examination for educational or training purposes was discussed with the Patient or Authorized Imagery Analyst. The Patient or Authorized Imagery Analyst has agreed to proceed with the sensitive examination. (Sensitive examination includes inspection and/or palpation of the breasts, pelvis, prostate and anorectal regions). EXAM: LMP 10/25/2024 GENERAL: pleasant, female in no apparent distress HEENT: Normocephalic, atraumatic, mucus membranes moist, and no lesions NECK: Supple, full range of motion, no adenopathy, and thyroid normal DERMATOLOGY: Normal, without lesions, non-icteric, and non-hirsute BREAST: deferred CHEST: Normal inspiratory effort ABDOMEN: Deferred PELVIC: external genitalia normal, normal Bartholin's glands, urethra, Winifred's glands, no vulvar lesions, no cervical lesions, good vaginal support, physiologic discharge present, normal appearing perineal body and perianal region BIMANUAL: uterus normal size, shape and consistency, no adnexal masses, and non-tender NEURO: alert and oriented x3,exam grossly non-focal EXTREMITIES: normal ASSESSMENT AND PLAN: Assessment & Plan Abnormal menses Switching to Nuvaring Orders: UA DIP,URINE HCG (POC) Breanne Joshi MD documented [facility]25 Telephone encounter Note * Telephone Encounter - Terrie Darby RN - 12/13/2024 10:40 AM EDT Appointment today with JNan at 3pm. Terrie Darby RN [facility]06-17-2025 Miscellaneous Notes* Telephone Encounter - Terrie Darby RN - 12/13/2024 10:40 AM EDT Appointment today with JG at 3pm. Terrie Darby RN documented in this encounterWexner [facility] Center05-28-2025 NoteHNO ID: [id number] Author: ISABEL DE SANTIAGO APRN.COOPERATIVE MANAGER Service: ? Author Type: Nurse Practitioner Type: Progress Notes Filed: 11/23/2024 16:58 Note Text: [facility] Subjective HPI HPI Catalina Capellan is a 18 year old female who presents today for CC of sinus pressure, cough. This started 2 weeks ago. Has tried otc medication for relief. Symptoms are worsened by nothing. Risk factors hx of sinus infections. Smoker. Denies possibility of being . PAST MEDICAL HISTORY Diagnosis Date Constipated Eczema POTS (postural orthostatic tachycardia syndrome) Sprain of ligament of right ankle 04/10/2022 Type 1 diabetes (HCC) PAST SURGICAL HISTORY Procedure Laterality Date SECTION HX 01/2024 CYSTOSCOPY,INSERT URETHRAL STENT EGD LITHROTRIPSY ALLERGIES Flagyl [Metronidazole] and Ketorolac MEDICATIONS DEXCOM G6 SENSOR leny Inject 1 Each subcutaneously every 2 weeks. insulin scallop cutter machine cart,aut,G6/7,cntr (OMNIPOD 5 G6-G7 INTRO KT,GEN5,) crtg For use with the pump Ethinyl Estradiol-Norelgestrom 150-35 mcg/24 hr patch Apply 1 Patch as directed one time a week. fluticasone (FLONASE) 50 mcg/actuation nasal spray Use 2 Sprays in each nostril once daily. Rinse mouth after use. (Patient not taking: Reported on 11/15/2024) insulin glargine (LANTUS SOLOSTAR U-100 INSULIN) 100 unit/mL (3 mL) Inject 15 Units subcutaneously daily at bedtime. (Patient taking differently: Inject 15 Units subcutaneously daily at bedtime. In case of pump failure) ONETOUCH DELICA PLUS LANCET 33 gauge Use with blood glucose test 4 times daily. Insulin Dep? Yes ONETOUCH VERIO TEST STRIPS test strip Use with blood glucose test 4 times daily. Insulin Dep? Yesday UNIFINE PENTIPS PLUS 32 gauge x Use as directed to administer insulin 4-6 times per day. Blood-Glucose Transmitter (DEXCOM G6 TRANSMITTER) leny 1 Each once every month. acetaminophen-caffeine (EXCEDRIN TENSION HEADACHE) 500-65 mg tablet Take 1 tablet by mouth every 6 hours as needed. cetirizine (ZYRTEC) 10 mg tablet Take 10 mg by mouth as needed for cold/allergy symptoms. As needed (Patient not taking: Reported on 09/20/2024) insulin pump cart,auto,BT,G6/7 (OMNIPOD 5 G6-G7 PODS, GEN 5,) crtg Inject 1 Each subcutaneously every 72 hours. insulin lispro (HUMALOG KWIKPEN) 100 unit/mL Inject up to 50units SQ daily as directed based on IC ratio and correction factor insulin lispro (HUMALOG KWIKPEN) 100 unit/mL In case of pump failure- take upto 30 units dialy alcohol swabs Use as directed to test metered glucose and administer insulin. ONETOUCH VERIO FLEX METER Use as directed to test metered glucose OMNIPOD 5 G6 INTRO KIT, GEN 5, crtg as directed. (Patient not taking: Reported on 11/15/2024) FAMILY HISTORY Problem Relation Age of Onset other (Hysterectomy) Mother other (Other) Father Unknown GI Maternal Grandmother other (Sponge Kidney) Maternal Grandmother Hypertension Maternal Grandfather Heart Attack Maternal Grandfather Social History Tobacco Use Smoking status: Never Smokeless tobacco: Never Vaping Use Vaping status: current everyday user Substances: Nicotine Devices: Pre-filled pod Substance Use Topics Alcohol use: Never Drug use: Never Review of Systems Constitutional: Negative for chills, fatigue and fever. HENT: Positive for rhinorrhea, sinus pressure and sore throat. Negative for ear discharge, ear pain and sinus pain. Eyes: Negative for discharge and redness. Respiratory: Positive for cough. Negative for shortness of breath and wheezing. Cardiovascular: Negative for chest pain. Skin: Negative for rash. Objective BP 110/68 Pulse 120 Temp 36.7 ?C (98 ?F) Resp 16 Wt 73 kg (160 lb 15 oz) LMP 10/25/2024 (Exact Date) SpO2 98% BMI 25.98 kg/m? Physical Exam Constitutional: General: She is not in acute distress. Appearance: She is not toxic-appearing or diaphoretic. HENT: Head: Normocephalic and atraumatic. Right Ear: Hearing, tympanic membrane, ear canal and external ear normal. Left Ear: Hearing, tympanic membrane, ear canal and external ear normal. Nose: Nose normal. Mouth/Throat: Pharynx: Uvula midline. Eyes: General: Lids are normal. No scleral icterus. Right eye: No discharge. Left eye: No discharge. Conjunctiva/sclera: Conjunctivae normal. Pupils: Pupils are equal, round, and reactive to light. Neck: Trachea: Trachea normal. Cardiovascular: Rate and Rhythm: Normal rate and regular rhythm. Heart sounds: Normal heart sounds. Pulmonary: Effort: Pulmonary effort is normal. Breath sounds: Normal breath sounds. Musculoskeletal: Cervical back: Normal range of motion and neck supple. Lymphadenopathy: Cervical: No cervical adenopathy. Skin: Findings: No rash. Neurological: Mental Status: She is alert and oriented to person, place, and time. {ASSESSMENT/PLAN: 1. Bacterial sinusitis - ICD9: 473.9, 041.9, ICD10: J32.9, B96.89 - Will (more content not included)...[facility]05-28-2025 History of Present illness Narrative* Isabel De Santiago APRN.COOPERATIVE MANAGER - 11/23/2024 4:23 PM EDT [facility] Subjective HPI HPI Catalina Capellan is a 18 year old female who presents today for CC of sinus pressure, cough. Thisstarted 2 weeks ago. Has tried otc medication for relief. Symptoms are worsened by nothing. Risk factors hx of sinus infections. Smoker. Denies possibility of being . PAST MEDICAL HISTORY Diagnosis Date Constipated Eczema POTS (postural orthostatic tachycardia syndrome) Sprain of ligament of right ankle 04/10/2022 Type 1 diabetes (HCC) PAST SURGICAL HISTORY Procedure Laterality Date SECTION HX 01/2024 CYSTOSCOPY,INSERT URETHRAL STENT EGD LITHROTRIPSY ALLERGIES Flagyl [Metronidazole] and Ketorolac MEDICATIONS DEXCOM G6 SENSOR leny Inject 1 Each subcutaneously every 2 weeks. insulin scallop cutter machine cart,aut,G6/7,cntr (OMNIPOD 5 G6-G7 INTRO KT,GEN5,) crtg For use with the pump Ethinyl Estradiol-Norelgestrom 150-35 mcg/24 hr patch Apply 1 Patch as directed one time a week. fluticasone (FLONASE) 50 mcg/actuation nasal spray Use 2 Sprays in each nostril once daily. Rinse mouth after use. (Patient not taking: Reported on 11/15/2024) insulin glargine (LANTUS SOLOSTAR U-100 INSULIN) 100 unit/mL (3 mL) Inject 15 Units subcutaneously daily at bedtime. (Patient taking differently: Inject 15 Units subcutaneously daily at bedtime. In case of pump failure) ONETOUCH DELICA PLUS LANCET 33 gauge Use with blood glucose test 4 times daily. Insulin Dep? Yes ONETOUCH VERIO TEST STRIPS test strip Use with blood glucose test 4 times daily. Insulin Dep? Yesday UNIFINE PENTIPS PLUS 32 gauge x Use as directed to administer insulin 4-6 times per day. Blood-Glucose Transmitter (DEXCOM G6 TRANSMITTER) leny 1 Each once every month. acetaminophen-caffeine (EXCEDRIN TENSION HEADACHE) 500-65 mg tablet Take 1 tablet by mouth every 6 hours as needed. cetirizine (ZYRTEC) 10 mg tablet Take 10 mg by mouth as needed for cold/allergy symptoms. As needed(Patient not taking: Reported on 09/20/2024) insulin pump cart,auto,BT,G6/7 (OMNIPOD 5 G6-G7 PODS, GEN 5,) crtg Inject 1 Each subcutaneously every 72 hours. insulin lispro (HUMALOG KWIKPEN) 100 unit/mL Inject up to 50units SQ daily as directed based on IC ratio and correction factor insulin lispro (HUMALOG KWIKPEN) 100 unit/mL In case of pump failure- take upto 30 units dialy alcohol swabs Use as directed to test metered glucose and administer insulin. ONETOUCH VERIO FLEX METER Use as directed to test metered glucose OMNIPOD 5 G6 INTRO KIT, GEN 5, crtg as directed. (Patient not taking: Reported on 11/15/2024) FAMILY HISTORY Problem Relation Age of Onset other (Hysterectomy) Mother other (Other) Father Unknown GI Maternal Grandmother other (Sponge Kidney) Maternal Grandmother Hypertension Maternal Grandfather Heart Attack Maternal Grandfather Social History Tobacco Use Smoking status: Never Smokeless tobacco: Never Vaping Use Vaping status: current everyday user Substances: Nicotine Devices: Pre-filled pod Substance Use Topics Alcohol use: Never Drug use: Never Review of Systems Constitutional: Negative for chills, fatigue and fever. HENT: Positive for rhinorrhea, sinus pressure and sore throat. Negative for ear discharge, ear painand sinus pain. Eyes: Negative for discharge and redness. Respiratory: Positive for cough. Negative for shortness of breath and wheezing. Cardiovascular: Negative for chest pain. Skin: Negative for rash. Objective BP 110/68 Pulse 120 Temp 36.7 C (98 F) Resp 16 Wt 73 kg (160 lb 15 oz) LMP 10/25/2024 (Exact Date) SpO2 98% BMI 25.98 kg/m Physical Exam Constitutional: General: She is not in acute distress. Appearance: She is not toxic-appearing or diaphoretic. HENT: Head: Normocephalic and atraumatic. Right Ear: Hearing, tympanic membrane, ear canal and external ear normal. Left Ear: Hearing, tympanic membrane, ear canal and external ear normal. Nose: Nose normal. Mouth/Throat: Pharynx: Uvula midline. Eyes: General: Lids are normal. No scleral icterus. Right eye: No discharge. Left eye: No discharge. Conjunctiva/sclera: Conjunctivae normal. Pupils: Pupils are equal, round, and reactive to light. Neck: Trachea: Trachea normal. Cardiovascular: Rate and Rhythm: Normal rate and regular rhythm. Heart sounds: Normal heart sounds. Pulmonary: Effort: Pulmonary effort is normal. Breath sounds: Normal breath sounds. Musculoskeletal: Cervical back: Normal range of motion and neck supple. Lymphadenopathy: Cervical: No cervical adenopathy. Skin: Findings: No rash. Neurological: Mental Status: She is alert and oriented to person, place, and time. {ASSESSMENT/PLAN: 1. Bacterial sinusitis - ICD9: 473.9, 041.9, ICD10: J32.9, B96.89 - Will begin treatment with as per antibiotic as written, see orders - Supportive care with plenty of fluids, rest, and analgesia prn. - Follow up in 3-5 days if symptoms persist or worsen. - AMOXICILLIN 875 MG-POTASSIUM CLAVULANATE 125 MG TABLET - FLUTICASONE PROPIONATE 50 MCG/ACTUATION NASAL SPRAY,SUSPENSION Isabel De Santiago APRN.CORINNE History and Record Review External record(s) reviewed: prior outpatient record. Disposition The patient was discharged. OTC Medications were advised: Flonase Procedures [facility] Telephone encounter Note * Telephone Encounter - Pina Mallory - 11/17/2024 2:46 PM EDT Patient called in looking for lab results advised we received a message this am and to allow provider 48- 72 hrs to review. [facility]05-[facility] Miscellaneous Notes* Telephone Encounter - Pina Mallory - 11/17/2024 2:46 PM EDT Patient called in looking for lab results advised we received a message this am and to allow provider 48- 72 hrs to review. documented in this encounterW[facility]05-20-2025 Instructions* Patient Instructions* Kourtney Sherman MD - 11/15/2024 4:28 PM EDT Please increase basal rate to 1.15 units/hr from 12 am to 12 am Increase insulin to carb ratio to 8.5 from 10 Continue correction factor as is for now Settings made on your pump today Please have your eye exam completed documented in this encounterW[facility]05-20-2025 NoteHNO ID: [id number] Author: KOURTNEY SHERMAN MD Service: ? Author Type: Physician Type: Progress Notes Filed: 11/20/2024 19:52 Note Text: [facility] Follow up note Referred by: Breanne Joshi MD (OBGYN) Chief complaint: Type 1 Diabetes mellitus History of Present Illness: Catalina Capellan is a 18 year old female with type 1 Diabetes who is presenting for follow up of type 1 DM after initial visit on 07/18/24. She is accompanied by her fiance and her child today -Initially diagnosed: In Mar 2023 -Circumstances around diagnosis: she had symptoms of polyuria, polydipsia, weight loss and she was admitted to hospital with DKA when she had symptoms and went to the ED. She was being managed by [facility] but was dropped after she had her baby in 01/2024 Started on Omnipod 5 in Apr 2023. She did not have her pump with her on last visit, but we have the device now and has been downloaded PMH: KAI, POTS . On control: on Verito now She is not breast feeding . Symptoms previously reported Recurrent yeast infections. Denied any weight changes recently Complications: Cardiovascular -- No Statin Use -- No Retinopathy -- No Last NUBIA/Retina Eval: last time she told it was October 2023, today she reported August 2023 after checking her calendar Nephropathy -- not known MARYLU/ARB Use -- No Polyneuropathy -- No Foot Exam: today Obesity -- No Other -- No -Family history of diabetes mellitus: type 2 DM in few family members Personal history of DKA or HHS-- DKA at diagnosis Personal history of pancreatitis-- No History of alcohol consumption--No Family history of thyroid cancer-- No Personal history of Urinary tract infections -- None is the recent past Diabetic education class: not completed Diabetes Medications -Current regimen: Omnipod 5 with Dexcom G6- started 1 month after diagnosis- in Apr 2023. Frequently administers correction doses, which she reports are effective. -Misses doses: Reports missing boluses 2-3 times per week. Occasionally administers insulin postprandially if preprandial bolus is forgotten. Previous A1c in December 2023: 5.9%. today POC is 9.4% Reports improvement in glycemic control over the past 1-2 months. Has been manually calculating bolus doses rather than using the pump's calculator. Current pump settings: Basal: 12 am : 1 units/hr Total basal: 24 units Insulin to carb ratio: 12 am - 1: 8 12.30 am- 1: 9 But mostly takes 1 unit per 10 gms ISF: 12 am: 35 mg/dl BG correction threshold 130 mg/dl BG target range: 110 mg/dl Active insulin time 3 hrs Denies needing insulin refills; only sensors were sent last time. -Adverse medication effects: none -Rotating injection sites: every 3 days on abdomen -Previously Used DM Meds: Yes . Blood sugars -Self monitoring of blood sugar via CGM Summary of Personal CGM Findings: Type of CGM: dexcom G6 1) CGM recording is adequate for interpretation. Worn 94% of time. 2) Average glucose is 204 mg/dL. BG range/St. Dev: 91 mg/dL 3) 49% time in range 70-180 mg/dL 4) Total frequency of hypoglycemia: 1% with BG < 70, <1% <54 - Hypoglycemia patterns: on fasting - Nocturnal hypoglycemia was NOT noted 5) Hyperglycemic episodes 21% with BG > 180, and 24% very high >250 - Hyperglycemia patterns: through out the day . Hypoglycemia -Hypoglycemic episodes: no -Frequency and timing of hypoglycemia: -Hypoglycemia awareness: yes, feels diaphoretic, shaking, dizziness, feeling not all there . Lifestyle -Exercise: occasionally -Diet: 2 to 3 meals, usually skips breakfast Breakfast: Lunch: Dinner: heaviest meal of the day She is eating regular meals . ROS: SYSTEMIC: Denies fatigue, malaise, energy, Weight has been stable, heat/cold intolerance, polydipsia EYES: Denies blurring of vision, diplopia, pain/discomfort, excessive tearing, swelling of eye lids, bulging, redness, dryness, NECK: Denies goiter, lump, pain/discomfort, dysphagia, hoarseness, sore thorat RESPIRATORY: Denies dyspnea at rest/with exertion, orthopnea cough, pleuritic chest pain, snoring, apnea episodes CARDIOVASCULAR: Chest pain, palpitations, irregular heart beats GASTRO-INTESTINAL:Denies Nausea, vomiting, abdominal pain, hyperdefecation, rectal bleeding NEUROLOGICAL: Denies dizziness, lightheadedness, weakness, cramping, numbness/tingling of extremities MUSCULOSKELETAL: Denies joint pain, stiffness, swelling, cramping or weakness. GENITOURINARY: Denies polyuria, recurrent UTI/yeast infections SKIN: Denies dryness, brittle nails, hair loss, alopecia, excessive sweating, flushing, darkening of skin PSYCHIATRIC: Denies anxiety, depression, panic attacks, irritability, mood swings Past Medical History PAST MEDICAL HISTORY Diagnosis Date Constipated Eczema POTS (postural orthostatic tachycardia syndrome) Sprain of ligament of right ankle (more content not included)...[facility]05-20-2025 History of Present illness Narrative* Kourtney Sherman MD - 11/15/2024 4:21 PM EDT [facility] Follow up note Referred by: Breanne Joshi MD (OBGYN) Chief complaint: Type 1 Diabetes mellitus History of Present Illness: Catalina Capellan is a 18 year old female with type 1 Diabetes who is presenting for follow up of type 1DM after initial visit on 07/18/24. She is accompanied by her fiance and her child today -Initially diagnosed: In Mar 2023 -Circumstances around diagnosis: she had symptoms of polyuria, polydipsia, weight loss and she was admitted to hospital with DKA when she had symptoms and went to the ED. She was being managed by [facility] but was dropped after she had her baby in 01/2024 Started on Omnipod 5 in Apr 2023. She did not have her pump with her on last visit, but we have the device now and has been downloaded PMH: GERD, POTS . On control: on Verito now She is not breast feeding . Symptoms previously reported Recurrent yeast infections. Denied any weight changes recently Complications: Cardiovascular -- No Statin Use -- No Retinopathy -- No Last NUBIA/Retina Eval: last time she told it was October 2023, today she reported August 2023 after checking her calendar Nephropathy -- not known MARYLU/ARB Use -- No Polyneuropathy -- No Foot Exam: today Obesity -- No Other -- No -Family history of diabetes mellitus: type 2 DM in few family members Personal history of DKA or HHS-- DKA at diagnosis Personal history of pancreatitis-- No History of alcohol consumption--No Family history of thyroid cancer-- No Personal history of Urinary tract infections -- None is the recent past Diabetic education class: not completed Diabetes Medications -Current regimen: Omnipod 5 with Dexcom G6- started 1 month after diagnosis- in Apr 2023. Frequently administers correction doses, which she reports are effective. -Misses doses: Reports missing boluses 2-3 times per week. Occasionally administers insulin postprandially if preprandial bolus is forgotten. Previous A1c in December 2023: 5.9%. today POC is 9.4% Reports improvement in glycemic control over the past 1-2 months. Has been manually calculating bolus doses rather than using the pump's calculator. Current pump settings: Basal: 12 am : 1 units/hr Total basal: 24 units Insulin to carb ratio: 12 am - 1: 8 12.30 am- 1: 9 But mostly takes 1 unit per 10 gms ISF: 12 am: 35 mg/dl BG correction threshold 130 mg/dl BG target range: 110 mg/dl Active insulin time 3 hrs Denies needing insulin refills; only sensors were sent last time. -Adverse medication effects: none -Rotating injection sites: every 3 days on abdomen -Previously Used DM Meds: Yes . Blood sugars -Self monitoring of blood sugar via CGM Summary of Personal CGM Findings: Type of CGM: dexcom G6 1) CGM recording is adequate for interpretation. Worn 94% of time. 2) Average glucose is 204 mg/dL. BG range/St. Dev: 91 mg/dL 3) 49% time in range 70-180 mg/dL 4) Total frequency of hypoglycemia: 1% with BG < 70, <1% <54 - Hypoglycemia patterns: on fasting - Nocturnal hypoglycemia was NOT noted 5) Hyperglycemic episodes 21% with BG > 180, and 24% very high >250 - Hyperglycemia patterns: through out the day . Hypoglycemia -Hypoglycemic episodes: no -Frequency and timing of hypoglycemia: -Hypoglycemia awareness: yes, feels diaphoretic, shaking, dizziness, feeling not all there . Lifestyle -Exercise: occasionally -Diet: 2 to 3 meals, usually skips breakfast Breakfast: Lunch: Dinner: heaviest meal of the day She is eating regular meals . ROS: SYSTEMIC: Denies fatigue, malaise, energy, Weight has been stable, heat/cold intolerance, polydipsia EYES: Denies blurring of vision, diplopia, pain/discomfort, excessive tearing, swelling of eye lids, bulging, redness, dryness, NECK: Denies goiter, lump, pain/discomfort, dysphagia, hoarseness, sore thorat RESPIRATORY: Denies dyspnea at rest/with exertion, orthopnea cough, pleuritic chest pain, snoring, apnea episodes CARDIOVASCULAR: Chest pain, palpitations, irregular heart beats GASTRO-INTESTINAL:Denies Nausea, vomiting, abdominal pain, hyperdefecation, rectal bleeding NEUROLOGICAL: Denies dizziness, lightheadedness, weakness, cramping, numbness/tingling of extremities MUSCULOSKELETAL: Denies joint pain, stiffness, swelling, cramping or weakness. GENITOURINARY: Denies polyuria, recurrent UTI/yeast infections SKIN: Denies dryness, brittle nails, hair loss, alopecia, excessive sweating, flushing, darkening of skin PSYCHIATRIC: Denies anxiety, depression, panic attacks, irritability, mood swings Past Medical History PAST MEDICAL HISTORY Diagnosis Date Constipated Eczema POTS (postural orthostatic tachycardia syndrome) Sprain of ligament of right ankle 04/10/2022 Type 1 diabetes (HCC) Past Surgical History PAST SURGICAL HISTORY Procedure Laterality Date SECTION HX 01/2024 CYSTOSCOPY,INSERT URETHRAL STENT EGD LITHROTRIPSY Family History FAMILY HISTORY Problem Relation Age of Onset other (Hysterectomy) Mother other (Other) Father Unknown GI Maternal Grandmother other (Sponge Kidney) Maternal Grandmother Hypertension Maternal Grandfather Heart Attack Maternal Grandfather Social History Social History Tobacco Use Smoking status: Never Smokeless tobacco: Never Vaping Use Vaping status: current everyday user Substances: Nicotine Devices: Pre-filled pod Substance Use Topics Alcohol use: Never Drug use: Never Allergies ALLERGIES Allergen Reactions Flagyl [Metronidazo* Intolerance Ketorolac Hives Current Medications Current Outpatient Medications Medication Sig Dispense Refill DEXCOM G6 SENSOR leny Inject 1 Each subcutaneously every 2 weeks. 3 each 2 insulin scallop cutter machine cart,aut,G6/7,cntr (OMNIPOD 5 G6-G7 INTRO KT,GEN5,) crtg For use with the pump 1 each 0 Ethinyl Estradiol-Norelgestrom 150-35 mcg/24 hr patch Apply 1 Patch as directed one time a week. 12Patch 3 insulin glargine (LANTUS SOLOSTAR U-100 INSULIN) 100 unit/mL (3 mL) Inject 15 Units subcutaneously daily at bedtime. (Patient taking differently: Inject 15 Units subcutaneously daily at bedtime. In case of pump failure) 15 mL 0 ONETOUCH DELICA PLUS LANCET 33 gauge Use with blood glucose test 4 times daily. Insulin Dep? Yes 300 Each 2 ONETOUCH VERIO TEST STRIPS test strip Use with blood glucose test 4 times daily. Insulin Dep? Yesday 150 Strip 4 UNIFINE PENTIPS PLUS 32 gauge x Use as directed to administer insulin 4-6 times per day. 100 Each 4 Blood-Glucose Transmitter (DEXCOM G6 TRANSMITTER) leny 1 Each once every month. 1 Each 2 acetaminophen-caffeine (EXCEDRIN TENSION HEADACHE) 500-65 mg tablet Take 1 tablet by mouth every 6 hours as needed. insulin pump cart,auto,BT,G6/7 (OMNIPOD 5 G6-G7 PODS, GEN 5,) crtg Inject 1 Each subcutaneously every 72 hours. 10 Each 3 insulin lispro (HUMALOG KWIKPEN) 100 unit/mL Inject up to 50units SQ daily as directed based on IC ratio and correction factor 30 mL 1 insulin lispro (HUMALOG KWIKPEN) 100 unit/mL In case of pump failure- take upto 30 units dialy 15 mL 0 alcohol swabs Use as directed to test metered glucose and administer insulin. ONETOUCH VERIO FLEX METER Use as directed to test metered glucose fluticasone (FLONASE) 50 mcg/actuation nasal spray Use 2 Sprays in each nostril once daily. Rinse mouth after use. (Patient not taking: Reported on 11/15/2024) 1 Each 0 cetirizine (ZYRTEC) 10 mg tablet Take 10 mg by mouth as needed for cold/allergy symptoms. As needed(Patient not taking: Reported on 09/20/2024) OMNIPOD 5 G6 INTRO KIT, GEN 5, crtg as directed. (Patient not taking: Reported on 11/15/2024) No current facility-administered medications for this visit. Vitals: 11/15/24 1612 BP: 122/80 BP Site: Right Arm BP Position: Sitting BP Cuff Size: Regular Adult Pulse: (!) 127 Resp: 12 Temp: 36.5 C (97.7 F) TempSrc: Temporal Artery SpO2: 98% Weight: 71.6 kg (157 lb 12.8 oz) Physical Exam GENERAL: Well nourished, obese, well hydrated, in no distress and oriented x 3 EYES: no thyroid eye signs, EOMI NECK: , no tenderness and adenopathy THYROID: slight enlargement on inspection, but on palpation does not feel enlarged, non-tender to palpable, no evidence of goiter, no nodules palpable LUNGS: Unlabored on room air HEART: regular rate and rhythm, S1 and S2 normal GI: has purple stretch tay (reportedly from ), no changes today Injections sites without lipodystrophy EXTREMITIES: no edema NEURO: normal strength, no tremors, feet checked today, no issues OTHER: Acanthosis None Labs TSH Date Value Ref Range Status 08/13/2023 1.490 0.510 - 4.300 mIU/L Final Comment: If the patient is , TSH reference range varies by gestational period: First Trimester (weeks 9-12): 0.180-2.990 mIU/L Second Trimester: 0.110-3.980 mIU/L Third Trimester: 0.480-4.710 mIU/L Lorne Paulson, et al. A Practical Approach for the Verifications and Determination of Site- and Trimester-Specific Reference Intervals for Thyroid Function tests in . Thyroid, 2019:29:3:412-420.Raji E, et al. 2017 Guidelines of the [place] Thyroid Association for the Diagnosis and Management of Thyroid Disease during and the . Thyroid, 2017:27:3:315-389. Reference ranges were not locally established for this patient's age group. The normal values are based on the following source: Tenisha Bronson V. Reference Ranges for Adults and Children: Pre-analytical Considerations. [facility] 02/12/2010 2.480 0.400 - 5.500 uU/mL Final Hemoglobin A1C (POCT) Date Value Ref Range Status 11/15/2024 9.4 (A) 4.3 - 5.6 % Final Comment: Location:[facility], [address], [place], [address] Point of care (POC) Hemoglobin A1c (HGBA1C) testing is intended to assess glucose control and provide a management tool for patients known to have diabetes and their healthcare providers. Target HGBA1C levels may depend on specific clinical circumstances. POC HGBA1C is not intended for use as a diagnostic or screening test; laboratory-based testing should be used for diagnostic purposes. The following information is supplemental and may not be applicable to specific diabetes management situations: The POC device family resource management specialist provides a normal range of 4.2% to 6.5% for the HGBA1C POC test. However, the [place] [employer] guidelines indicate that patients with HGBA1C in the range of 5.7% to 6.4% are at increased risk for development of diabetes and that intervention by lifestyle modification may be beneficial. A HGBA1C level greater than or equal to 6.5% is considered diagnostic of diabetes, pending confirmatory testing. Use of HGBA1C testing to evaluate glucose control may not be appropriate for patients with hemoglobin variants or other conditions (e.g. anemia) that alter red blood cell lifespan. 01/25/2024: Hba1c 5.9% 10/26/2023: TSH 0.909 uIU/ml (0.5-4.3) Free T4 1.1 ng/dl (0.8-1.5) 04/20/2023: Positive for GAD65, ICA, zinc transporter antibodies at the time of diagnosis TPO and TTG antibodies negative Assessment and Plan Type 1 Diabetes mellitus without complications -A1c 5.9% in 12/2023, worsened to 9.4% today -eGFR >90 in 01/2024 -Current regimen: Omnipod 5 hybrid loop with Dexcom G6 Settings as per HPI Plan: increase basal rate to 1.15 units/hr from 12 am to 12 am Increase insulin to carb ratio to 8.5 from 10 Continue correction factor as is for now I changed the settings on her pump myself, as she had difficulty maneuvering the settings on her phone - I recommended that she see diabetes education due to knowledge lack in her medical condition and management, consult placed but she has not completed this - carbohydrate consistent diet recommended, and exercise as possible - advised labs before next visit Uptodate: Guerrier components of routine care for people with diabetes mellitus Reviewed ABCs of diabetes management (respective goals in parentheses): A1C (<7), blood pressure(<140/90), and cholesterol (LDL <100). Reviewed: medications, MOA, timing and changes. Reviewed goals to complete prior to next visit. Health maintenance: BP: 122/80 - Creatinine, GFR: 0.46, >90 (01/2024) - Liver enzymes AST, ALT: 74, 55 (01/2024) - Lipids: LDL No record - Urine microalbumin: No record - Thyroid: normal in 09/2023 - Feet: checked today, no issues - Eyes: reports to have had check up in 08/2023, no evidence of retinopathy, advised scheduling eye exam again Scripts sent to pharmacy of pt choice: N/A RTC in 6 weeks I have confirmed and edited as necessary, the past medical, surgical, family, and social history asobtained by others. Kourtney Sherman MD Endocrinology Associate Staff [facility] Endocrinology and Metabolism [place] [phone] Medical Decision Making: Problems: Moderate: 1+ chronic illnesses with change Data: Unique test result(s) reviewed: 3+ Unique test(s) ordered: 3+ Risk: Moderate: Drug management Medical Decision Making Level: 4 - Moderate * Jairo Michael RN - 11/15/2024 4:07 PM EDT Images from the original note were not included. documented in this encounterWexner [facility] Center05-20-2025 NoteHNO ID: [id number] Author: JAIRO MICHAEL RN Service: ? Author Type: Registered Nurse Type: Progress Notes Filed: 11/20/2024 19:52 Note Text:[facility] Telephone encounter Note* Telephone Encounter - Doris Caruso MD - 11/14/2024 10:47 AM EDT Dilfucan sent thanks [facility]05-19-2025 Miscellaneous Notes* Telephone Encounter - Doris Caruso MD - 11/14/2024 10:47 AM EDT Dilfucan sent thanks * Telephone Encounter - Breanne Mahoney RN - 11/14/2024 10:06 AM EDT Please review in JG's absence. Thank you. Breanne Mahoney RN documented in this encounterWexner [facility] Center05-19-2025 Telephone encounter Note * Telephone Encounter - Breanne Mahoney RN - 11/14/2024 10:06 AM EDT Please review in JG's absence. Thank you. Breanne Mahoney RN [facility]05-[facility] Telephone encounter Note* Telephone Encounter - Britni Velez RN - 11/14/2024 10:05 AM EDT This matter is being addressed in a separate encounter (Refill 11/10). Closing this encounter. Yareli Velez RN [facility]05-19-2025 Miscellaneous Notes* Telephone Encounter - Britni Velez RN - 11/14/2024 10:05 AM EDT This matter is being addressed in a separate encounter (Refill 11/10). Closing this encounter. Yareli Velez RN documented in this encounterWexner [facility] Center04-22-2025 Telephone encounter Note * Telephone Encounter - Rekhaverito Adm Luis - 10/18/2024 9:18 AM EDT Initiated PA for Omnipod Kit through [facility] verbally with Mamta C Rep. Case#[id number] Questions Completed Waiting for determination [facility] new policy Kits were changed from 365 days of supply to 720 day of supply Luis Prior Authorization [facility]04-22-2025 Miscellaneous Notes* Telephone Encounter - Georginaverito Esparza Luis - 10/18/2024 9:18 AM EDT Initiated PA for Omnipod Kit through [facility] verbally with Mamta C Rep. Case#[id number] Questions Completed Waiting for determination [facility] new policy Kits were changed from 365 days of supply to 720 day of supply Luis Prior Authorization [facility] Telephone encounter Note * Telephone Encounter - Georginaverito Esparza Luis - 10/11/2024 12:11 PM EDT Images from the original note were not included. Initiated PA for Omnipod [facility]ymeds Waiting on Questions [facility]04-15-2025 Miscellaneous Notes* Telephone Encounter - [facility] Adm Luis - 10/11/2024 12:11 PM EDT Images from the original note were not included. Initiated PA for Omnipod KitthroughCoverymymeds Waiting on Questions documented in this encounterW[facility] Center03-25-2025 Instructions* Patient Instructions* Melinda Oneill APRN.COOPERATIVE MANAGER - 09/20/2024 7:16 PM EDT ASSESSMENT/PLAN: 1. Bacterial sinusitis - ICD9: 473.9, 041.9, ICD10: J32.9, B96.89 (primary diagnosis) - Will begin treatment with as per antibiotic as written, see orders - Supportive care with plenty of fluids, rest, and analgesia prn. - AMOXICILLIN 875 MG-POTASSIUM CLAVULANATE 125 MG TABLET - FLUTICASONE PROPIONATE 50 MCG/ACTUATION NASAL SPRAY,SUSPENSION 2. Acute CORIE (middle ear effusion), bilateral - ICD9: 381.00, ICD10: H65.193 - FLUTICASONE PROPIONATE 50 MCG/ACTUATION NASAL SPRAY,SUSPENSION - Follow-up with your PCP in 3-5 days if symptoms have not improved or sooner if symptoms worsen - Discussed red flags and need for immediate medical evaluation if any occur. - Discussed supportive care treatment with fluids, rest and analgesia. - Discussed expected course of illness Melinda Oneill APRN.COOPERATIVE MANAGER documented in this encounterWexner Medical Center03-25-2025 NoteHNO ID: [id number] Author: MELINDA ONEILL APRN.COOPERATIVE MANAGER Service: ? Author Type: Nurse Practitioner Type: Progress Notes Filed: 09/20/2024 19:16 Note Text: [facility] Subjective Catalina Capellan is a 18 year old female. Patient presents with: Sinus Problem: sinus pressure, drainage, headache x 1 week Sinus Problem Associated symptoms include congestion, coughing, fatigue, headaches and a sore throat. Catalina Capellan is a 18 year old female who presents with sinus pressure and congestion, sore throat, headache, ear pain, neck pain and cough x 1 week. She took excedrin for headache. She has not had a fever. Her son has had recent URI symptoms also. Review of Systems Constitutional: Positive for fatigue. HENT: Positive for congestion, ear pain, sinus pressure, sinus pain and sore throat. Respiratory: Positive for cough. Cardiovascular: Negative. Musculoskeletal: Negative. Neurological: Positive for headaches. Objective BP 122/70 Pulse 120 Temp 37.3 ?C (99.2 ?F) Resp 18 Wt 69.6 kg (153 lb 7 oz) LMP 09/09/2024 (Exact Date) SpO2 97% BMI 24.77 kg/m? PAST MEDICAL HISTORY Diagnosis Date - Constipated - Eczema - POTS (postural orthostatic tachycardia syndrome) - Sprain of ligament of right ankle 04/10/2022 - Type 1 diabetes (HCC) PAST SURGICAL HISTORY Procedure Laterality Date - SECTION HX 01/2024 - CYSTOSCOPY,INSERT URETHRAL STENT - EGD - LITHROTRIPSY ALLERGIES Flagyl [Metronidazole] and Ketorolac MEDICATIONS - amoxicillin-clavulanate potassium (AUGMENTIN) 875-125 mg per tablet Take 1 tablet by mouth two times a day for 7 days. - fluticasone (FLONASE) 50 mcg/actuation nasal spray Use 2 Sprays in each nostril once daily. Rinse mouth after use. - insulin glargine (LANTUS SOLOSTAR U-100 INSULIN) 100 unit/mL (3 mL) Inject 15 Units subcutaneously daily at bedtime. - ONETOUCH DELICA PLUS LANCET 33 gauge Use with blood glucose test 4 times daily. Insulin Dep? Yes - ONETOUCH VERIO TEST STRIPS test strip Use with blood glucose test 4 times daily. Insulin Dep? Yesday - UNIFINE PENTIPS PLUS 32 gauge x Use as directed to administer insulin 4-6 times per day. - Blood-Glucose Transmitter (DEXCOM G6 TRANSMITTER) leny 1 Each once every month. - nystatin (MYCOSTATIN) cream Apply to affected area two times a day for 14 days. - acetaminophen-caffeine (EXCEDRIN TENSION HEADACHE) 500-65 mg tablet Take 1 tablet by mouth every 6 hours as needed. - cetirizine (ZYRTEC) 10 mg tablet Take 10 mg by mouth as needed for cold/allergy symptoms. As needed (Patient not taking: Reported on 09/20/2024) - DEXCOM G6 SENSOR leny Inject 1 Each subcutaneously every 2 weeks. - insulin pump cart,auto,BT,G6/7 (OMNIPOD 5 G6-G7 PODS, GEN 5,) crtg Inject 1 Each subcutaneously every 72 hours. - insulin lispro (HUMALOG KWIKPEN) 100 unit/mL Inject up to 50units SQ daily as directed based on IC ratio and correction factor - insulin lispro (HUMALOG KWIKPEN) 100 unit/mL In case of pump failure- take upto 30 units dialy - Drospirenone-Ethinyl Estradiol (VERITO, 28,) 3-0.03 mg per tablet Take 1 tablet by mouth once daily. - alcohol swabs Use as directed to test metered glucose and administer insulin. - ONETOUCH VERIO FLEX METER Use as directed to test metered glucose - OMNIPOD 5 G6 INTRO KIT, GEN 5, crtg as directed. FAMILY HISTORY Problem Relation Age of Onset - other (Hysterectomy) Mother - other (Other) Father Unknown - GI Maternal Grandmother - other (Sponge Kidney) Maternal Grandmother - Hypertension Maternal Grandfather - Heart Attack Maternal Grandfather Social History Tobacco Use - Smoking status: Never - Smokeless tobacco: Never Vaping Use - Vaping status: current everyday user - Substances: Nicotine - Devices: Pre-filled pod Substance Use Topics - Alcohol use: Never - Drug use: Never Physical Exam Vitals and nursing note reviewed. Constitutional: General: She is not in acute distress. Appearance: Normal appearance. She is not ill-appearing. HENT: Right Ear: Tympanic membrane, ear canal and external ear normal. Left Ear: Tympanic membrane, ear canal and external ear normal. Nose: Nasal tenderness, mucosal edema, congestion and rhinorrhea present. Mouth/Throat: Mouth: Mucous membranes are moist. Pharynx: Oropharynx is clear. No oropharyngeal exudate or posterior oropharyngeal erythema. Cardiovascular: Rate and Rhythm: Normal rate and regular rhythm. Heart sounds: Normal heart sounds. Pulmonary: Effort: Pulmonary effort is normal. No respiratory distress. Breath sounds: Normal breath sounds. No wheezing or rales. Lymphadenopathy: Cervical: No cervical adenopathy. Skin: General: Skin is warm and dry. Findings: No erythema or rash. Neurological: Mental Status: She is alert. {ASSESSMENT/PLAN: 1. Bacterial sinusitis - ICD9: 473.9, 041.9, ICD10: J32.9, B96.89 (primary diagnosis) - W (more content not included)...[facility]03-25-2025 History of Present illness Narrative* Melinda Oneill APRN.COOPERATIVE MANAGER - 09/20/2024 7:13 PM EDT [facility] Subjective Catalina E Capellan is a 18 year old female. Patient presents with: Sinus Problem: sinus pressure, drainage, headache x 1 week Sinus Problem Associated symptoms include congestion, coughing, fatigue, headaches and a sore throat. Catalina Capellan is a 18 year old female who presents with sinus pressure and congestion, sore throat, headache, ear pain, neck pain and cough x 1 week. She took excedrin for headache. She has not had a fever. Her son has had recent URI symptoms also. Review of Systems Constitutional: Positive for fatigue. HENT: Positive for congestion, ear pain, sinus pressure, sinus pain and sore throat. Respiratory: Positive for cough. Cardiovascular: Negative. Musculoskeletal: Negative. Neurological: Positive for headaches. Objective BP 122/70 Pulse 120 Temp 37.3 C (99.2 F) Resp 18 Wt 69.6 kg (153 lb 7 oz) LMP 09/09/2024 (Exact Date) SpO2 97% BMI 24.77 kg/m PAST MEDICAL HISTORY Diagnosis Date Constipated Eczema POTS (postural orthostatic tachycardia syndrome) Sprain of ligament of right ankle 04/10/2022 Type 1 diabetes (HCC) PAST SURGICAL HISTORY Procedure Laterality Date SECTION HX 01/2024 CYSTOSCOPY,INSERT URETHRAL STENT EGD LITHROTRIPSY ALLERGIES Flagyl [Metronidazole] and Ketorolac MEDICATIONS amoxicillin-clavulanate potassium (AUGMENTIN) 875-125 mg per tablet Take 1 tablet by mouth two times a day for 7 days. fluticasone (FLONASE) 50 mcg/actuation nasal spray Use 2 Sprays in each nostril once daily. Rinse mouth after use. insulin glargine (LANTUS SOLOSTAR U-100 INSULIN) 100 unit/mL (3 mL) Inject 15 Units subcutaneously daily at bedtime. ONETOUCH DELICA PLUS LANCET 33 gauge Use with blood glucose test 4 times daily. Insulin Dep? Yes ONETOUCH VERIO TEST STRIPS test strip Use with blood glucose test 4 times daily. Insulin Dep? Yesday UNIFINE PENTIPS PLUS 32 gauge x Use as directed to administer insulin 4-6 times per day. Blood-Glucose Transmitter (DEXCOM G6 TRANSMITTER) leny 1 Each once every month. nystatin (MYCOSTATIN) cream Apply to affected area two times a day for 14 days. acetaminophen-caffeine (EXCEDRIN TENSION HEADACHE) 500-65 mg tablet Take 1 tablet by mouth every 6 hours as needed. cetirizine (ZYRTEC) 10 mg tablet Take 10 mg by mouth as needed for cold/allergy symptoms. As needed(Patient not taking: Reported on 09/20/2024) DEXCOM G6 SENSOR leny Inject 1 Each subcutaneously every 2 weeks. insulin pump cart,auto,BT,G6/7 (OMNIPOD 5 G6-G7 PODS, GEN 5,) crtg Inject 1 Each subcutaneously every 72 hours. insulin lispro (HUMALOG KWIKPEN) 100 unit/mL Inject up to 50units SQ daily as directed based on IC ratio and correction factor insulin lispro (HUMALOG KWIKPEN) 100 unit/mL In case of pump failure- take upto 30 units dialy Drospirenone-Ethinyl Estradiol (VERITO, 28,) 3-0.03 mg per tablet Take 1 tablet by mouth once daily. alcohol swabs Use as directed to test metered glucose and administer insulin. ONETOUCH VERIO FLEX METER Use as directed to test metered glucose OMNIPOD 5 G6 INTRO KIT, GEN 5, crtg as directed. FAMILY HISTORY Problem Relation Age of Onset other (Hysterectomy) Mother other (Other) Father Unknown GI Maternal Grandmother other (Sponge Kidney) Maternal Grandmother Hypertension Maternal Grandfather Heart Attack Maternal Grandfather Social History Tobacco Use Smoking status: Never Smokeless tobacco: Never Vaping Use Vaping status: current everyday user Substances: Nicotine Devices: Pre-filled pod Substance Use Topics Alcohol use: Never Drug use: Never Physical Exam Vitals and nursing note reviewed. Constitutional: General: She is not in acute distress. Appearance: Normal appearance. She is not ill-appearing. HENT: Right Ear: Tympanic membrane, ear canal and external ear normal. Left Ear: Tympanic membrane, ear canal and external ear normal. Nose: Nasal tenderness, mucosal edema, congestion and rhinorrhea present. Mouth/Throat: Mouth: Mucous membranes are moist. Pharynx: Oropharynx is clear. No oropharyngeal exudate or posterior oropharyngeal erythema. Cardiovascular: Rate and Rhythm: Normal rate and regular rhythm. Heart sounds: Normal heart sounds. Pulmonary: Effort: Pulmonary effort is normal. No respiratory distress. Breath sounds: Normal breath sounds. No wheezing or rales. Lymphadenopathy: Cervical: No cervical adenopathy. Skin: General: Skin is warm and dry. Findings: No erythema or rash. Neurological: Mental Status: She is alert. {ASSESSMENT/PLAN: 1. Bacterial sinusitis - ICD9: 473.9, 041.9, ICD10: J32.9, B96.89 (primary diagnosis) - Will begin treatment with as per antibiotic as written, see orders - Supportive care with plenty of fluids, rest, and analgesia prn. - AMOXICILLIN 875 MG-POTASSIUM CLAVULANATE 125 MG TABLET - FLUTICASONE PROPIONATE 50 MCG/ACTUATION NASAL SPRAY,SUSPENSION 2. Acute CORIE (middle ear effusion), bilateral - ICD9: 381.00, ICD10: H65.193 - FLUTICASONE PROPIONATE 50 MCG/ACTUATION NASAL SPRAY,SUSPENSION - Follow-up with your PCP in 3-5 days if symptoms have not improved or sooner if symptoms worsen - Discussed red flags and need for immediate medical evaluation if any occur. - Discussed supportive care treatment with fluids, rest and analgesia. - Discussed expected course of illness Melinda Oneill APRN.COOPERATIVE MANAGER History and Record Review Clinical information obtained from an independent historian. History obtained from or confirmed by:spouse. Disposition The patient was discharged. Procedures documented in this encounterW[facility]03-[facility]-2025 NoteHNO ID: [id number] Author: ASHELY CHAMBERS PA Service: ? Author Type: Physician Candy Feeder Type: Progress Notes Filed: 09/17/2024 13:09 Note Text: [facility] Subjective Catalina Capellan is a 18 year old female. Patient presents with: Sore Throat HPI 18-year-old female presents for sore throat. Patient has had sore throat for the past 2 days. She has a little bit of cough and nasal congestion. No fevers. Still able to eat and drink. No vomiting or diarrhea. Has not taken anything for symptoms. No other complaint PAST MEDICAL HISTORY Diagnosis Date Constipated Eczema POTS (postural orthostatic tachycardia syndrome) Sprain of ligament of right ankle 04/10/2022 Type 1 diabetes (HCC) PAST SURGICAL HISTORY Procedure Laterality Date SECTION HX 01/2024 CYSTOSCOPY,INSERT URETHRAL STENT EGD LITHROTRIPSY ALLERGIES Flagyl [Metronidazole] and Ketorolac MEDICATIONS clindamycin phosphate 2 % vaginal cream Use 1 Applicatorful vaginally daily at bedtime for 7 days. insulin glargine (LANTUS SOLOSTAR U-100 INSULIN) 100 unit/mL (3 mL) Inject 15 Units subcutaneously daily at bedtime. ONETOUCH DELICA PLUS LANCET 33 gauge Use with blood glucose test 4 times daily. Insulin Dep? Yes ONETOUCH VERIO TEST STRIPS test strip Use with blood glucose test 4 times daily. Insulin Dep? Yesday UNIFINE PENTIPS PLUS 32 gauge x Use as directed to administer insulin 4-6 times per day. Blood-Glucose Transmitter (DEXCOM G6 TRANSMITTER) leny 1 Each once every month. nystatin (MYCOSTATIN) cream Apply to affected area two times a day for 14 days. acetaminophen-caffeine (EXCEDRIN TENSION HEADACHE) 500-65 mg tablet Take 1 tablet by mouth every 6 hours as needed. cetirizine (ZYRTEC) 10 mg tablet Take 10 mg by mouth as needed for cold/allergy symptoms. As needed DEXCOM G6 SENSOR leny Inject 1 Each subcutaneously every 2 weeks. insulin pump cart,auto,BT,G6/7 (OMNIPOD 5 G6-G7 PODS, GEN 5,) crtg Inject 1 Each subcutaneously every 72 hours. insulin lispro (HUMALOG KWIKPEN) 100 unit/mL Inject up to 50units SQ daily as directed based on IC ratio and correction factor insulin lispro (HUMALOG KWIKPEN) 100 unit/mL In case of pump failure- take upto 30 units dialy Drospirenone-Ethinyl Estradiol (VERITO, 28,) 3-0.03 mg per tablet Take 1 tablet by mouth once daily. alcohol swabs Use as directed to test metered glucose and administer insulin. ONETOUCH VERIO FLEX METER Use as directed to test metered glucose OMNIPOD 5 G6 INTRO KIT, GEN 5, crtg as directed. FAMILY HISTORY Problem Relation Age of Onset other (Hysterectomy) Mother other (Other) Father Unknown GI Maternal Grandmother other (Sponge Kidney) Maternal Grandmother Hypertension Maternal Grandfather Heart Attack Maternal Grandfather Social History Tobacco Use Smoking status: Never Smokeless tobacco: Never Vaping Use Vaping status: current everyday user Substances: Nicotine Devices: Pre-filled pod Substance Use Topics Alcohol use: Never Drug use: Never Review of Systems Constitutional: Negative for chills and fever. HENT: Positive for congestion and sore throat. Negative for ear pain. Respiratory: Positive for cough. Negative for shortness of breath. Cardiovascular: Negative for chest pain. Gastrointestinal: Negative for diarrhea and vomiting. Objective BP 119/84 Pulse 111 Temp 36.7 ?C (98.1 ?F) Resp 16 Wt 70 kg (154 lb 5.2 oz) LMP 09/09/2024 (Exact Date) SpO2 99% BMI 24.91 kg/m? Physical Exam Vitals and nursing note reviewed. Constitutional: General: She is not in acute distress. Appearance: Normal appearance. She is not toxic-appearing. HENT: Right Ear: Tympanic membrane and ear canal normal. Left Ear: Tympanic membrane and ear canal normal. Nose: Nose normal. Mouth/Throat: Mouth: Mucous membranes are moist. Pharynx: Posterior oropharyngeal erythema present. Eyes: Conjunctiva/sclera: Conjunctivae normal. Cardiovascular: Rate and Rhythm: Normal rate and regular rhythm. Pulmonary: Effort: Pulmonary effort is normal. Breath sounds: Normal breath sounds. No wheezing, rhonchi or rales. Skin: General: Skin is warm and dry. Neurological: Mental Status: She is alert. {ASSESSMENT/PLAN: 1. Sore throat - ICD9: 462, ICD10: J02.9 (primary diagnosis) - suspect viral - Group A strep molecular testing negative - Discussed supportive care treatment with fluids, rest and analgesia. - The patient may also use warm salt water gargles, throat lozenges and/or OTC throat spray as needed. - STREP A MOLECULAR (POC) 2. URI, acute - ICD9: 465.9, ICD10: J06.9 - Discussed viral etiology and rationale for treatment. - Symptomatic treatment with prn analgesia - Supportive care with fluids and rest -May use OTC cough and cold meds as needed. Diagnosis and treatment plan were discussed and questions were answered to the patient's satisfaction. Pt acknowledged (more content not included)...[facility]03-22-2025 History of Present illness Narrative* Ashely Chambers PA - 09/17/2024 1:07 PM EDT [facility] Subjective Catalina Capellan is a 18 year old female. Patient presents with: Sore Throat HPI 18-year-old female presents for sore throat. Patient has had sore throat for the past 2 days. She has a little bit of cough and nasal congestion. No fevers. Still able to eat and drink. No vomiting or diarrhea. Has not taken anything for symptoms. No other complaint PAST MEDICAL HISTORY Diagnosis Date Constipated Eczema POTS (postural orthostatic tachycardia syndrome) Sprain of ligament of right ankle 04/10/2022 Type 1 diabetes (HCC) PAST SURGICAL HISTORY Procedure Laterality Date SECTION HX 01/2024 CYSTOSCOPY,INSERT URETHRAL STENT EGD LITHROTRIPSY ALLERGIES Flagyl [Metronidazole] and Ketorolac MEDICATIONS clindamycin phosphate 2 % vaginal cream Use 1 Applicatorful vaginally daily at bedtime for 7 days. insulin glargine (LANTUS SOLOSTAR U-100 INSULIN) 100 unit/mL (3 mL) Inject 15 Units subcutaneously daily at bedtime. ONETOUCH DELICA PLUS LANCET 33 gauge Use with blood glucose test 4 times daily. Insulin Dep? Yes ONETOUCH VERIO TEST STRIPS test strip Use with blood glucose test 4 times daily. Insulin Dep? Yesday UNIFINE PENTIPS PLUS 32 gauge x 32 Use as directed to administer insulin 4-6 times per day. Blood-Glucose Transmitter (DEXCOM G6 TRANSMITTER) leny 1 Each once every month. nystatin (MYCOSTATIN) cream Apply to affected area two times a day for 14 days. acetaminophen-caffeine (EXCEDRIN TENSION HEADACHE) 500-65 mg tablet Take 1 tablet by mouth every 6 hours as needed. cetirizine (ZYRTEC) 10 mg tablet Take 10 mg by mouth as needed for cold/allergy symptoms. As needed DEXCOM G6 SENSOR leny Inject 1 Each subcutaneously every 2 weeks. insulin pump cart,auto,BT,G6/7 (OMNIPOD 5 G6-G7 PODS, GEN 5,) crtg Inject 1 Each subcutaneously every 72 hours. insulin lispro (HUMALOG KWIKPEN) 100 unit/mL Inject up to 50units SQ daily as directed based on IC ratio and correction factor insulin lispro (HUMALOG KWIKPEN) 100 unit/mL In case of pump failure- take upto 30 units dialy Drospirenone-Ethinyl Estradiol (VERITO, 28,) 3-0.03 mg per tablet Take 1 tablet by mouth once daily. alcohol swabs Use as directed to test metered glucose and administer insulin. ONETOUCH VERIO FLEX METER Use as directed to test metered glucose OMNIPOD 5 G6 INTRO KIT, GEN 5, crtg as directed. FAMILY HISTORY Problem Relation Age of Onset other (Hysterectomy) Mother other (Other) Father Unknown GI Maternal Grandmother other (Sponge Kidney) Maternal Grandmother Hypertension Maternal Grandfather Heart Attack Maternal Grandfather Social History Tobacco Use Smoking status: Never Smokeless tobacco: Never Vaping Use Vaping status: current everyday user Substances: Nicotine Devices: Pre-filled pod Substance Use Topics Alcohol use: Never Drug use: Never Review of Systems Constitutional: Negative for chills and fever. HENT: Positive for congestion and sore throat. Negative for ear pain. Respiratory: Positive for cough. Negative for shortness of breath. Cardiovascular: Negative for chest pain. Gastrointestinal: Negative for diarrhea and vomiting. Objective BP 119/84 Pulse 111 Temp 36.7 C (98.1 F) Resp 16 Wt 70 kg (154 lb 5.2 oz) LMP 09/09/2024 (Exact Date) SpO2 99% BMI 24.91 kg/m Physical Exam Vitals and nursing note reviewed. Constitutional: General: She is not in acute distress. Appearance: Normal appearance. She is not toxic-appearing. HENT: Right Ear: Tympanic membrane and ear canal normal. Left Ear: Tympanic membrane and ear canal normal. Nose: Nose normal. Mouth/Throat: Mouth: Mucous membranes are moist. Pharynx: Posterior oropharyngeal erythema present. Eyes: Conjunctiva/sclera: Conjunctivae normal. Cardiovascular: Rate and Rhythm: Normal rate and regular rhythm. Pulmonary: Effort: Pulmonary effort is normal. Breath sounds: Normal breath sounds. No wheezing, rhonchi or rales. Skin: General: Skin is warm and dry. Neurological: Mental Status: She is alert. {ASSESSMENT/PLAN: 1. Sore throat - ICD9: 462, ICD10: J02.9 (primary diagnosis) - suspect viral - Group A strep molecular testing negative - Discussed supportive care treatment with fluids, rest and analgesia. - The patient may also use warm salt water gargles, throat lozenges and/or OTC throat spray as needed. - STREP A MOLECULAR (POC) 2. URI, acute - ICD9: 465.9, ICD10: J06.9 - Discussed viral etiology and rationale for treatment. - Symptomatic treatment with prn analgesia - Supportive care with fluids and rest -May use OTC cough and cold meds as needed. Diagnosis and treatment plan were discussed and questions were answered to the patient's satisfaction. Pt acknowledged understanding of concepts and follow up plan. Specific signs and symptoms that would indicate the need for higher level of care were discussed in detail warranting prompt ER evaluation. NICOLLE Guaman History and Record Review External record(s) reviewed: prior outpatient record. Differential Diagnoses - Viral URI is more likely for the following reason(s): suggested by H&P - Strep pharyngitis is less likely for the following reason(s): laboratory studies not suggestive Disposition The patient was discharged. OTC Medications were advised: Tylenol, Motrin, Cepacol throat lozenges as needed Procedures documented in this encounterW[facility]03-18-2025 Instructions* Patient Instructions* Inessa Medel MA - 09/13/2024 8:30 AM EDT Minimizing irritation of the vulva (area around the vagina) Wear white cotton underwear. Avoid synthetic fabrics and tight clothing. Sleep wearing shorts or pajama bottoms without underwear. Shower as soon as possible after exercise. Avoid clothing detergents and soaps with perfumes or dyes. Use warm (not hot) water to wash the vulva and if you use soap use a product designed for sensitive skin (like Dove or Cetaphil). Do not douche or use creams/powders in the vulvar area unless instructed by your physician. If you must douche, use only plain warm water. Make sure the vulva is dry before dressing by patting dry with a towel. Avoid vigorous rubbing withthe towel. You may want to use the blow dryer (on the cool setting only!) on the vulva. The most important way to let your body heal is by avoiding scratching. Many patients find it difficult to avoid scratching at night when they are most aware of the itchiness. You can try taking Benadryl just before bedtime. Some women find it helpful to wear cotton gloves to bed to avoid scratching at night. documented in this encounterW[facility]25 NoteHNO ID: [id number] Author: BREANNE JOSHI MD Service: ? Author Type: Physician Type: Progress Notes Filed: 09/13/2024 10:02 Note Text: Commercial Maintenance Technician offered: Patient declines. Catalina Capellan is a 18 year old female who presents for vaginal discharge ongoing. Seen in urgent care and given flagyl and Diflucan for BV and yeast. Cultures were positive for both. Has not started the Diflucan and had a reaction to the flagyl. She stopped taking it before completing her treatment. Was given clindagel as replacement but has not started it. IS now on her period. Does have a new information developer but does not seem to be communicating well with her. She does not have good control of he BG. This morning was 199. Has been trying to manage her insulin herself. Vaginal discharge: thick and white. Itching: YES Dyspareunia: No Fever/chills: No Abdominal pain: Yes, Bladder: Negative for dysuria or frequency Bowel: No blood in stool, pain with BM, tarry stool, persistent diarrhea or constipation Any new sexual partners or concern for STD exposure: No Any history of STDs: None Contraception: combined hormonal contraceptives Past medical, surgical, social history, medications and allergies reviewed and updated. OBJECTIVE: SENSITIVE EXAM: Sensitive exam not performed. LMP 09/09/2024 Has not completed prescribed treatment and is bleeding today. No cultures collected GENERAL: Well developed, well nourished in no apparent distress ABDOMEN: Deferred PELVIC: deferred BIMANUAL: deferred. RECTOVAGINAL: deferred. ASSESSMENT/PLAN: Jayme, bacterial vaginosis No orders found for this visit on 09/13/24. STD screening: Declined STD check. Encouraged to complete current treatment. Needs to get BG under control or will not be able to stop recurrent infections. If she does not like her current Endo she needs to find a new one. Breanne Joshi [facility]03-18-2025 History of Present illness Narrative* Breanne Joshi MD - 09/13/2024 8:29 AM EDT Commercial Maintenance Technician offered: Patient declines. Catalina Capellan is a 18 year old female who presents for vaginal discharge ongoing. Seen in urgent care and given flagyl and Diflucan for BV and yeast. Cultures were positive for both. Has not startedthe Diflucan and had a reaction to the flagyl. She stopped taking it before completing her treatment. Was given clindagel as replacement but has not started it. IS now on her period. Does have a new information developer but does not seem to be communicating well with her. She does not have good control of he BG. This morning was 199. Has been trying to manage her insulin herself. Vaginal discharge: thick and white. Itching: YES Dyspareunia: No Fever/chills: No Abdominal pain: Yes, Bladder: Negative for dysuria or frequency Bowel: No blood in stool, pain with BM, tarry stool, persistent diarrhea or constipation Any new sexual partners or concern for STD exposure: No Any history of STDs: None Contraception: combined hormonal contraceptives Past medical, surgical, social history, medications and allergies reviewed and updated. OBJECTIVE: SENSITIVE EXAM: Sensitive exam not performed. LMP 09/09/2024 Has not completed prescribed treatment and is bleeding today. No cultures collected GENERAL: Well developed, well nourished in no apparent distress ABDOMEN: Deferred PELVIC: deferred BIMANUAL: deferred. RECTOVAGINAL: deferred. ASSESSMENT/PLAN: Jayme, bacterial vaginosis No orders found for this visit on 09/13/24. STD screening: Declined STD check. Encouraged to complete current treatment. Needs to get BG under control or will not be able to stoprecurrent infections. If she does not like her current Endo she needs to find a new one. Breanne Joshi MD documented in this encounterW[facility]03-[facility]25 Telephone encounter Note * Telephone Encounter - Terrie Darby RN - 09/12/2024 2:44 PM EDT Saw urgent care for reaction to Flagyl. They prescribed Clindamycin vaginal cream instead and addedFlagyl to allergy list. Terrie Darby RN [facility]03-17-[facility]25 Miscellaneous Notes* Telephone Encounter - Terrie Darby RN - 09/12/2024 2:44 PM EDT Saw urgent care for reaction to Flagyl. They prescribed Clindamycin vaginal cream instead and addedFlagyl to allergy list. Terrie Darby RN documented in this encounterW[facility] Center03-15-2025 NoteHNO ID: [id number] Author: ANICETO STRONG APRN.COOPERATIVE MANAGER Service: ? Author Type: Nurse Practitioner Type: Progress Notes Filed: 09/10/2024 14:07 Note Text: [facility] Subjective Catalina Capellan is a 18 year old female. Patient presents with: Allergic Reaction: Flagyl for BV, has taken 4 doses, now having numbness and tingling in all 4 extremities Patient came in with complaints of not being able to tolerate her Flagyl. Patient says it is making her numb and tingly. Patient says she took it yesterday for the last time. Patient says symptoms are improving now. Patient would like something else called in. The history is provided by the patient. No spanish interpreter/translator was used. Allergic Reaction Review of Systems Constitutional: Negative. HENT: Negative. Objective BP 106/73 Pulse 104 Temp 36.9 ?C (98.4 ?F) Resp 18 Wt 68.2 kg (150 lb 5.7 oz) LMP 09/09/2024 (Exact Date) SpO2 97% BMI 24.27 kg/m? Physical Exam Constitutional: Appearance: Normal appearance. Pulmonary: Effort: Pulmonary effort is normal. Neurological: Mental Status: She is alert. PAST MEDICAL HISTORY Diagnosis Date Constipated Eczema POTS (postural orthostatic tachycardia syndrome) Sprain of ligament of right ankle 04/10/2022 Type 1 diabetes (HCC) PAST SURGICAL HISTORY Procedure Laterality Date SECTION HX 01/2024 CYSTOSCOPY,INSERT URETHRAL STENT EGD LITHROTRIPSY ALLERGIES Flagyl [Metronidazole] and Ketorolac MEDICATIONS clindamycin phosphate 2 % vaginal cream Use 1 Applicatorful vaginally daily at bedtime for 7 days. insulin glargine (LANTUS SOLOSTAR U-100 INSULIN) 100 unit/mL (3 mL) Inject 15 Units subcutaneously daily at bedtime. ONETOUCH DELICA PLUS LANCET 33 gauge Use with blood glucose test 4 times daily. Insulin Dep? Yes ONETOUCH VERIO TEST STRIPS test strip Use with blood glucose test 4 times daily. Insulin Dep? Yesday UNIFINE PENTIPS PLUS 32 gauge x /32 Use as directed to administer insulin 4-6 times per day. Blood-Glucose Transmitter (DEXCOM G6 TRANSMITTER) leny 1 Each once every month. nystatin (MYCOSTATIN) cream Apply to affected area two times a day for 14 days. acetaminophen-caffeine (EXCEDRIN TENSION HEADACHE) 500-65 mg tablet Take 1 tablet by mouth every 6 hours as needed. cetirizine (ZYRTEC) 10 mg tablet Take 10 mg by mouth as needed for cold/allergy symptoms. As needed DEXCOM G6 SENSOR leny Inject 1 Each subcutaneously every 2 weeks. insulin pump cart,auto,BT,G6/7 (OMNIPOD 5 G6-G7 PODS, GEN 5,) crtg Inject 1 Each subcutaneously every 72 hours. insulin lispro (HUMALOG KWIKPEN) 100 unit/mL Inject up to 50units SQ daily as directed based on IC ratio and correction factor insulin lispro (HUMALOG KWIKPEN) 100 unit/mL In case of pump failure- take upto 30 units dialy Drospirenone-Ethinyl Estradiol (VERITO, 28,) 3-0.03 mg per tablet Take 1 tablet by mouth once daily. alcohol swabs Use as directed to test metered glucose and administer insulin. ONETOUCH VERIO FLEX METER Use as directed to test metered glucose OMNIPOD 5 G6 INTRO KIT, GEN 5, crtg as directed. FAMILY HISTORY Problem Relation Age of Onset other (Hysterectomy) Mother other (Other) Father Unknown GI Maternal Grandmother other (Sponge Kidney) Maternal Grandmother Hypertension Maternal Grandfather Heart Attack Maternal Grandfather Social History Tobacco Use Smoking status: Never Smokeless tobacco: Never Vaping Use Vaping status: current everyday user Substances: Nicotine Devices: Pre-filled pod Substance Use Topics Alcohol use: Never Drug use: Never ASSESSMENT/PLAN: 1. Adverse effect of drug, initial encounter - ICD9: E947.9, ICD10: T50.905A - CLINDAMYCIN 2 % VAGINAL CREAM Educated about proper use of medication supportive therapies. Added Flagyl to her allergy list. Patient agreeable to care plan. Aniceto Strong APRN.COOPERATIVE MANAGER M[facility]Day[facility] History of Present illness Narrative* Aniceto Strong APRN.CORINNE - 09/10/2024 2:04 PM EDT [facility] Subjective Catalina Capellan is a 18 year old female. Patient presents with: Allergic Reaction: Flagyl for BV, has taken 4 doses, now having numbness and tingling in all 4 extremities Patient came in with complaints of not being able to tolerate her Flagyl. Patient says it is makingher numb and tingly. Patient says she took it yesterday for the last time. Patient says symptoms are improving now. Patient would like something else called in. The history is provided by the patient. No spanish interpreter/translator was used. Allergic Reaction Review of Systems Constitutional: Negative. HENT: Negative. Objective BP 106/73 Pulse 104 Temp 36.9 C (98.4 F) Resp 18 Wt 68.2 kg (150 lb 5.7 oz) LMP 09/09/2024 (Exact Date) SpO2 97% BMI 24.27 kg/m Physical Exam Constitutional: Appearance: Normal appearance. Pulmonary: Effort: Pulmonary effort is normal. Neurological: Mental Status: She is alert. PAST MEDICAL HISTORY Diagnosis Date Constipated Eczema POTS (postural orthostatic tachycardia syndrome) Sprain of ligament of right ankle 04/10/2022 Type 1 diabetes (HCC) PAST SURGICAL HISTORY Procedure Laterality Date SECTION HX 01/2024 CYSTOSCOPY,INSERT URETHRAL STENT EGD LITHROTRIPSY ALLERGIES Flagyl [Metronidazole] and Ketorolac MEDICATIONS clindamycin phosphate 2 % vaginal cream Use 1 Applicatorful vaginally daily at bedtime for 7 days. insulin glargine (LANTUS SOLOSTAR U-100 INSULIN) 100 unit/mL (3 mL) Inject 15 Units subcutaneously daily at bedtime. ONETOUCH DELICA PLUS LANCET 33 gauge Use with blood glucose test 4 times daily. Insulin Dep? Yes ONETOUCH VERIO TEST STRIPS test strip Use with blood glucose test 4 times daily. Insulin Dep? Yesday UNIFINE PENTIPS PLUS 32 gauge x 5/32 Use as directed to administer insulin 4-6 times per day. Blood-Glucose Transmitter (DEXCOM G6 TRANSMITTER) leny 1 Each once every month. nystatin (MYCOSTATIN) cream Apply to affected area two times a day for 14 days. acetaminophen-caffeine (EXCEDRIN TENSION HEADACHE) 500-65 mg tablet Take 1 tablet by mouth every 6 hours as needed. cetirizine (ZYRTEC) 10 mg tablet Take 10 mg by mouth as needed for cold/allergy symptoms. As needed DEXCOM G6 SENSOR leny Inject 1 Each subcutaneously every 2 weeks. insulin pump cart,auto,BT,G6/7 (OMNIPOD 5 G6-G7 PODS, GEN 5,) crtg Inject 1 Each subcutaneously every 72 hours. insulin lispro (HUMALOG KWIKPEN) 100 unit/mL Inject up to 50units SQ daily as directed based on IC ratio and correction factor insulin lispro (HUMALOG KWIKPEN) 100 unit/mL In case of pump failure- take upto 30 units dialy Drospirenone-Ethinyl Estradiol (VERITO, 28,) 3-0.03 mg per tablet Take 1 tablet by mouth once daily. alcohol swabs Use as directed to test metered glucose and administer insulin. ONETOUCH VERIO FLEX METER Use as directed to test metered glucose OMNIPOD 5 G6 INTRO KIT, GEN 5, crtg as directed. FAMILY HISTORY Problem Relation Age of Onset other (Hysterectomy) Mother other (Other) Father Unknown GI Maternal Grandmother other (Sponge Kidney) Maternal Grandmother Hypertension Maternal Grandfather Heart Attack Maternal Grandfather Social History Tobacco Use Smoking status: Never Smokeless tobacco: Never Vaping Use Vaping status: current everyday user Substances: Nicotine Devices: Pre-filled pod Substance Use Topics Alcohol use: Never Drug use: Never ASSESSMENT/PLAN: 1. Adverse effect of drug, initial encounter - ICD9: E947.9, ICD10: T50.905A - CLINDAMYCIN 2 % VAGINAL CREAM Educated about proper use of medication supportive therapies. Added Flagyl to her allergy list. Patient agreeable to care plan. Aniceto Strong APRN.CORINNE MDM Procedures documented in this encounterW[facility]03-[facility]25 Telephone encounter Note * Telephone Encounter - Lou Hodgson RN - 09/08/2024 5:51 PM EDT Pt called and is notified of results and given providers message. Pt voices understanding. [facility] Miscellaneous Notes* Telephone Encounter - Lou Hodgson RN - 09/08/2024 5:51 PM EDT Pt called and is notified of results and given providers message. Pt voices understanding. * Telephone Encounter - Court Zaldivar MA - 09/08/2024 9:59 AM EDT Left VM instructing patient to return call to receive results. Court Zaldivar MA * Telephone Encounter - Aniceto Strong APRN.CORINNE - 09/08/2024 9:51 AM EDT Please call patient let her know she is negative for gonorrhea, chlamydia, trichomonas. Patient is positive for bacterial vaginosis and yeast. I called in Flagyl twice a day for 7 days. Patient should not drink alcohol on medication. I did call in a Diflucan patient should need to take the Diflucan after she finishes the Flagyl. Not before.Follow-up with primary care if symptoms persist. documented in this encounterW[facility]03-13-2025 Telephone encounter Note * Telephone Encounter - Breanne Degroot MA - 09/08/2024 2:37 PM EDT Insulin ordered on a previous message, not included. Breanne Degroot MA [facility]03-[facility] Miscellaneous Notes* Telephone Encounter - Beranne Degroot MA - 09/08/2024 2:37 PM EDT Insulin ordered on a previous message, not included. Breanne Degroot MA documented in this encounterWex[facility] Center03-13-2025 Telephone encounter Note * Telephone Encounter - Court Zaldivar MA - 09/08/2024 9:59 AM EDT Left VM instructing patient to return call to receive results. Court Zaldivar MA [facility]03[facility] Telephone encounter Note* Telephone Encounter - Aniceto Strong APRN.CNP - 09/08/2024 9:51 AM EDT Please call patient let her know she is negative for gonorrhea, chlamydia, trichomonas. Patient is positive for bacterial vaginosis and yeast. I called in Flagyl twice a day for 7 days. Patient should not drink alcohol on medication. I did call in a Diflucan patient should need to take the Diflucan after she finishes the Flagyl. Not before.Follow-up with primary care if symptoms persist. [facility]03[facility] History of Present illness Narrative* Aniceto Strong APRN.CORINNE - 09/07/2024 4:46 PM EDT CC: Patient presents with: Urinary Problem JAIME Capellan is a 18 year old female here for vaginal discharge and itching. She has had malodorouswhite/yellow discharge x one week. She reports itching, dyspareunia, pelvic pain and vaginal burning when she voids. Denies abnormal bleeding, N/V/D,chills or fever. She is not concerned about STD's.She uses oral contraceptives. No routine condom use. Since May 2024 she reports having 10 yeast infections. She has been using monistat OTC for these. She said symptoms no sooner improve when another infection was starting. She is Type I Diabetic with uncontrolled blood glucose readings. She said they have ranged from 200 to 600 since having her son in January. She was without an information developer and her normal medications for A while, but is now established and seeing Endo. She claims dejon adherent to her current regimen. She has not seen a patient registration manager since her child's . She has an appointment to see SPRING COILING MACHINE SETTER Dr. Salamanca 09/13/2024. Review of Systems Constitutional: Negative for chills, fatigue and fever. Respiratory: Negative for shortness of breath. Cardiovascular: Negative for chest pain and palpitations. Gastrointestinal: Negative for diarrhea, nausea, rectal pain and vomiting. Genitourinary: Positive for dyspareunia, frequency, pelvic pain, urgency, vaginal discharge and vaginal pain. Negative for genital sores, menstrual problem and vaginal bleeding. Skin: Negative for rash. PAST MEDICAL HISTORY Diagnosis Date Constipated Eczema POTS (postural orthostatic tachycardia syndrome) Sprain of ligament of right ankle 04/10/2022 Type 1 diabetes (HCC) PAST SURGICAL HISTORY Procedure Laterality Date SECTION HX 01/2024 CYSTOSCOPY,INSERT URETHRAL STENT EGD LITHROTRIPSY ALLERGIES Ketorolac MEDICATIONS DEXCOM G6 SENSOR leny Inject 1 Each subcutaneously every 2 weeks. insulin pump cart,auto,BT,G6/7 (OMNIPOD 5 G6-G7 PODS, GEN 5,) crtg Inject 1 Each subcutaneously every 72 hours. insulin lispro (HUMALOG KWIKPEN) 100 unit/mL Inject up to 50units SQ daily as directed based on IC ratio and correction factor insulin lispro (HUMALOG KWIKPEN) 100 unit/mL In case of pump failure- take upto 30 units dialy insulin glargine (LANTUS SOLOSTAR U-100 INSULIN) 100 unit/mL (3 mL) In case of pump failure- upto 15 units daily Drospirenone-Ethinyl Estradiol (VERITO, 28,) 3-0.03 mg per tablet Take 1 tablet by mouth once daily. ONETOUCH VERIO TEST STRIPS test strip Use as directed to test metered glucose 6- 8 times per day ONETOUCH VERIO FLEX METER Use as directed to test metered glucose OMNIPOD 5 G6 INTRO KIT, GEN 5, crtg as directed. ONETOUCH DELICA PLUS LANCET 33 gauge Use as directed to test metered glucose 6-8 times per day UNIFINE PENTIPS PLUS 32 gauge x 5/32 Use as directed to administer insulin 4-6 times per day. nystatin (MYCOSTATIN) cream Apply to affected area two times a day for 14 days. fluconazole (DIFLUCAN) 150 mg tablet Take 1 tablet by mouth one time only for 1 dose. Repeat in 3 days as needed. acetaminophen-caffeine (EXCEDRIN TENSION HEADACHE) 500-65 mg tablet Take 1 tablet by mouth every 6 hours as needed. cetirizine (ZYRTEC) 10 mg tablet Take 10 mg by mouth as needed for cold/allergy symptoms. As needed alcohol swabs Use as directed to test metered glucose and administer insulin. FAMILY HISTORY Problem Relation Age of Onset other (Hysterectomy) Mother other (Other) Father Unknown GI Maternal Grandmother other (Sponge Kidney) Maternal Grandmother Hypertension Maternal Grandfather Heart Attack Maternal Grandfather Social History Tobacco Use Smoking status: Never Smokeless tobacco: Never Vaping Use Vaping status: current everyday user Substances: Nicotine Devices: Pre-filled pod Substance Use Topics Alcohol use: Never Drug use: Never BP 118/72 Pulse (!) 122 Temp 37 C (98.6 F) Resp 16 Wt 63.8 kg (140 lb 10.5 oz) LMP 05/16/2024 (Approximate) SpO2 97% BMI 22.70 kg/m Physical Exam Cardiovascular: Rate and Rhythm: Tachycardia present. Heart sounds: Normal heart sounds, S1 normal and S2 normal. No murmur heard. Pulmonary: Effort: Pulmonary effort is normal. Breath sounds: Normal breath sounds. No decreased breath sounds, wheezing or rhonchi. Abdominal: General: Bowel sounds are normal. Palpations: Abdomen is soft. There is no mass. Tenderness: There is abdominal tenderness in the suprapubic area. There is no right CVA tenderness,left CVA tenderness or rebound. Hernia: No hernia is present. Genitourinary: Pubic Area: No rash. Labia: Right: No rash or tenderness. Left: No lesion. Urethra: No prolapse or urethral lesion. Vagina: No foreign body. Vaginal discharge (white/yellow, non-odorus), erythema and tenderness present. No bleeding or lesions. Cervix: Discharge present. No erythema or cervical bleeding. Uterus: No uterine prolapse. Adnexa: Right: No tenderness. Left: No tenderness. Comments: Erythema with pain on palpation at vaginal opening. No lesions present. Musculoskeletal: Right lower leg: No edema. Left lower leg: No edema. Neurological: Mental Status: She is alert. Psychiatric: Behavior: Behavior is cooperative. ASSESSMENT/PLAN: 1. Vaginal discharge - ICD9: 623.5, ICD10: N89.8 (primary diagnosis) White/yellow x 1 week. Self reports 10 infections since May 2024. She has self treated with Monistat. - Discussed importance of glucose control - Stay clean and dry - Avoid perfumes - NYSTATIN 100,000 UNIT/GRAM TOPICAL CREAM - FLUCONAZOLE 150 MG TABLET 2. Screening for genitourinary condition - ICD9: V81.6, ICD10: Z13.89 Urgency,frequency, uncontrolled Type I DM. No nitrates or Leuk Estrace present. - Discussed Urine dip results with patient in office. - UA DIP, URINE (POC) 3. Vaginal pain - ICD9: 625.9, ICD10: R10.2 One week with dyspareunia. No abnormal vaginal bleeding. LMP 08/10/2024. No trauma.No adnexa tenderness. No mass palpated. No lesions or sores visualized. - Follow up in 3 days or sooner if worsening of symptoms - Will call with lab testing when resulted - Encouraged patient to keep appointment with Gynecology 09/13/24 - JAYME/TRICHOMONAS NAAT - BACTERIAL VAGINOSIS NAAT - GONORRHEA/CHLAMYDIA NAAT - BACTERIAL CULTURE, URINE Prescription instructions reviewed with patient as applicable. Potential red flag symptoms discussed with the patient. Reviewed appropriate action plan to take if red flag symptoms occur. Patient agreeable to treatment plan. Hugo Alvarez Supervising provider was present and guided the care of the patient for the entire session on this date. All documentation was reviewed and agreed upon. Aniceto Strong APRN.OCRINNE documented in this encounterW[facility]03-12-2025 NoteHNO ID: [id number] Author: ANICETO STRONG APRN.CORINNE Service: ? Author Type: Nurse Practitioner Type: Progress Notes Filed: 09/07/2024 18:01 Note Text: CC: Patient presents with: Urinary Problem HPI Catalina Capellan is a 18 year old female here for vaginal discharge and itching. She has had malodorous white/yellow discharge x one week. She reports itching, dyspareunia, pelvic pain and vaginal burning when she voids. Denies abnormal bleeding, N/V/D,chills or fever. She is not concerned about STD's. She uses oral contraceptives. No routine condom use. Since May 2024 she reports having 10 yeast infections. She has been using monistat OTC for these. She said symptoms no sooner improve when another infection was starting. She is Type I Diabetic with uncontrolled blood glucose readings. She said they have ranged from 200 to 600 since having her son in January. She was without an information developer and her normal medications for A while, but is now established and seeing Endo. She claims to be adherent to her current regimen. She has not seen a patient registration manager since her child's . She has an appointment to see SPRING CO[employer]ING MACHINE SETTER Dr. Salamanca 09/13/2024. Review of Systems Constitutional: Negative for chills, fatigue and fever. Respiratory: Negative for shortness of breath. Cardiovascular: Negative for chest pain and palpitations. Gastrointestinal: Negative for diarrhea, nausea, rectal pain and vomiting. Genitourinary: Positive for dyspareunia, frequency, pelvic pain, urgency, vaginal discharge and vaginal pain. Negative for genital sores, menstrual problem and vaginal bleeding. Skin: Negative for rash. PAST MEDICAL HISTORY Diagnosis Date Constipated Eczema POTS (postural orthostatic tachycardia syndrome) Sprain of ligament of right ankle 04/10/2022 Type 1 diabetes (HCC) PAST SURGICAL HISTORY Procedure Laterality Date SECTION HX 01/2024 CYSTOSCOPY,INSERT URETHRAL STENT EGD LITHROTRIPSY ALLERGIES Ketorolac MEDICATIONS DEXCOM G6 SENSOR leny Inject 1 Each subcutaneously every 2 weeks. insulin pump cart,auto,BT,G6/7 (OMNIPOD 5 G6-G7 PODS, GEN 5,) crtg Inject 1 Each subcutaneously every 72 hours. insulin lispro (HUMALOG KWIKPEN) 100 unit/mL Inject up to 50units SQ daily as directed based on IC ratio and correction factor insulin lispro (HUMALOG KWIKPEN) 100 unit/mL In case of pump failure- take upto 30 units dialy insulin glargine (LANTUS SOLOSTAR U-100 INSULIN) 100 unit/mL (3 mL) In case of pump failure- upto 15 units daily Drospirenone-Ethinyl Estradiol (VERITO, 28,) 3-0.03 mg per tablet Take 1 tablet by mouth once daily. ONETOUCH VERIO TEST STRIPS test strip Use as directed to test metered glucose 6-8 times per day ONETOUCH VERIO FLEX METER Use as directed to test metered glucose OMNIPOD 5 G6 INTRO KIT, GEN 5, crtg as directed. ONETOUCH DELICA PLUS LANCET 33 gauge Use as directed to test metered glucose 6-8 times per day UNIFINE PENTIPS PLUS 32 gauge x 5/32 Use as directed to administer insulin 4-6 times per day. nystatin (MYCOSTATIN) cream Apply to affected area two times a day for 14 days. fluconazole (DIFLUCAN) 150 mg tablet Take 1 tablet by mouth one time only for 1 dose. Repeat in 3 days as needed. acetaminophen-caffeine (EXCEDRIN TENSION HEADACHE) 500-65 mg tablet Take 1 tablet by mouth every 6 hours as needed. cetirizine (ZYRTEC) 10 mg tablet Take 10 mg by mouth as needed for cold/allergy symptoms. As needed alcohol swabs Use as directed to test metered glucose and administer insulin. FAMILY HISTORY Problem Relation Age of Onset other (Hysterectomy) Mother other (Other) Father Unknown GI Maternal Grandmother other (Sponge Kidney) Maternal Grandmother Hypertension Maternal Grandfather Heart Attack Maternal Grandfather Social History Tobacco Use Smoking status: Never Smokeless tobacco: Never Vaping Use Vaping status: current everyday user Substances: Nicotine Devices: Pre-filled pod Substance Use Topics Alcohol use: Never Drug use: Never BP 118/72 Pulse (!) 122 Temp 37 ?C (98.6 ?F) Resp 16 Wt 63.8 kg (140 lb 10.5 oz) LMP 05/16/2024 (Approximate) SpO2 97% BMI 22.70 kg/m? Physical Exam Cardiovascular: Rate and Rhythm: Tachycardia present. Heart sounds: Normal heart sounds, S1 normal and S2 normal. No murmur heard. Pulmonary: Effort: Pulmonary effort is normal. Breath sounds: Normal breath sounds. No decreased breath sounds, wheezing or rhonchi. Abdominal: General: Bowel sounds are normal. Palpations: Abdomen is soft. There is no mass. Tenderness: There is abdominal tenderness in the suprapubic area. There is no right CVA tenderness, left CVA tenderness or rebound. Hernia: No hernia is present. Genitourinary: Pubic Area: No rash. Labia: Right: No rash or tenderness. Left: No lesion. Urethra: No prolapse or urethral lesion. Vagina: No foreign body. Vaginal discharge (white/yell (more content not included)...[facility]01-21-2025 Telephone encounter Note* Telephone Encounter - Breanne Degroot MA - 07/19/2024 3:18 PM EST Cover My Meds PA guerrier [id number] started Breanne Degroot MA [facility]01-21-2025 Miscellaneous Notes* Telephone Encounter - Breanne Degroot MA - 07/19/2024 3:18 PM EST Cover My Meds PA guerrier [id number] started Breanne Degroot MA documented [facility] Instructions* Patient Instructions* Kourtney Sherman MD - 07/18/2024 10:33 AM EST Refills sent as requested Please add details to your Omnipod and dexcom devices to give permission for the clinic to downloaddata Follow a carbohydrate consistent diet Do labs before next visit documented in this encounterW[facility]25 NoteHNO ID: [id number] Author: KOURTNEY SHERMAN MD Service: ? Author Type: Physician Type: Progress Notes Filed: 07/18/2024 17:22 Note Text: [facility] Initial Clinic Visit Note Referred by: Breanne Joshi MD (OBGYN) Chief complaint: Type 1 Diabetes mellitus My final recommendations will be communicated back to the requesting physician by way of shared medical record or letter via [place] mail. History of Present Illness: Catalina Capellan is a 18 year old female with type 1 Diabetes who is presenting to establish care and thus renew her medications. She is accompanied by her fiance and her child today -Initially diagnosed: In Mar 2023 -Circumstances around diagnosis: she had symptoms of polyuria, polydipsia, weight loss and she was admitted to hospital with DKA when she had symptoms and went to the ED. She was being managed by [facility] but was dropped after she had her baby in 01/2024 PMH: GERD, POTS . On control: on Verito now She is not breast feeding . Symptoms Recurrent yeast infections Denied any weight changes recently Complications: Cardiovascular -- No Statin Use -- No Retinopathy -- No Last NUBIA/Retina Eval: October 2023 Nephropathy -- not known MARYLU/ARB Use -- No Polyneuropathy -- No Foot Exam: today Obesity -- No Other -- No -Family history of diabetes mellitus: type 2 DM in few family members Personal history of DKA or HHS-- DKA at diagnosis Personal history of pancreatitis-- No History of alcohol consumption--No Family history of thyroid cancer-- No Personal history of Urinary tract infections -- None is the recent past Diabetic education class: not completed Diabetes Medications -Current regimen: Omnipod 5 with Dexcom G6- started 1 month after diagnosis - automated pump- changes every 3 days ICR: 1:14 SF: could not tell. They did not bring Omnipod with them initially, at the end of the encounter they were advised to bring to see if downloading data is possible, but it was not -Misses doses: None -Adverse medication effects: none -Rotating injection sites: every 3 days on abdomen -Previously Used DM Meds: Yes . Blood sugars -Self monitoring of blood sugar via CGM: dexcom No data available to review today . Hypoglycemia -Hypoglycemic episodes: no -Frequency and timing of hypoglycemia: -Hypoglycemia awareness: yes, feels diaphoretic, shaking, dizziness, feeling not all there . Lifestyle -Exercise: occasionally -Diet: 2 to 3 meals, usually skips breakfast Breakfast: Lunch: Dinner: heaviest meal of the day She is eating regular meals . ROS: SYSTEMIC: Denies fatigue, malaise, energy, Weight has been stable, heat/cold intolerance, polydipsia EYES: Denies blurring of vision, diplopia, pain/discomfort, excessive tearing, swelling of eye lids, bulging, redness, dryness, NECK: Denies goiter, lump, pain/discomfort, dysphagia, hoarseness, sore thorat RESPIRATORY: Denies dyspnea at rest/with exertion, orthopnea cough, pleuritic chest pain, snoring, apnea episodes CARDIOVASCULAR: Chest pain, palpitations, irregular heart beats GASTRO-INTESTINAL:Denies Nausea, vomiting, abdominal pain, hyperdefecation, rectal bleeding NEUROLOGICAL: Denies dizziness, lightheadedness, weakness, cramping, numbness/tingling of extremities MUSCULOSKELETAL: Denies joint pain, stiffness, swelling, cramping or weakness. GENITOURINARY: Denies polyuria, recurrent UTI/yeast infections SKIN: Denies dryness, brittle nails, hair loss, alopecia, excessive sweating, flushing, darkening of skin PSYCHIATRIC: Denies anxiety, depression, panic attacks, irritability, mood swings Past Medical History PAST MEDICAL HISTORY Diagnosis Date Constipated Eczema POTS (postural orthostatic tachycardia syndrome) Sprain of ligament of right ankle 04/10/2022 Type 1 diabetes (HCC) Past Surgical History PAST SURGICAL HISTORY Procedure Laterality Date SECTION HX 01/2024 CYSTOSCOPY,INSERT URETHRAL STENT EGD LITHROTRIPSY Family History FAMILY HISTORY Problem Relation Age of Onset other (Hysterectomy) Mother other (Other) Father Unknown GI Maternal Grandmother other (Sponge Kidney) Maternal Grandmother Hypertension Maternal Grandfather Heart Attack Maternal Grandfather Social History Social History Tobacco Use Smoking status: Never Smokeless tobacco: Never Vaping Use Vaping status: current everyday user Substances: Nicotine Devices: Pre-filled pod Substance Use Topics Alcohol use: Never Drug use: Never Allergies ALLERGIES No Known Allergies Current Medications Current Outpatient Medications Medication Sig Dispense Refill Drospirenone-Ethinyl Estradiol (VERITO, 28,) 3-0.03 mg per tablet Take 1 tablet by mouth once daily. 28 tablet 12 DEXCOM G6 SENSOR leny Use as directed. Change sensor every 10 days. alcohol swabs Use as directed to test metered gl (more content not included)... [facility]01-20-2025 History of Present illness Narrative* Kourtney Sherman MD - 07/18/2024 9:49 AM EST [facility] Initial Clinic Visit Note Referred by: Breanne Joshi MD (OBGYN) Chief complaint: Type 1 Diabetes mellitus My final recommendations will be communicated back to the requesting physician by way of shared medical record or letter via [place] mail. History of Present Illness: Catalina Capellan is a 18 year old female with type 1 Diabetes who is presenting to [facility] care and thus renew her medications. She is accompanied by her fiance and her child today -Initially diagnosed: In Mar 2023 -Circumstances around diagnosis: she had symptoms of polyuria, polydipsia, weight loss and she was admitted to hospital with DKA when she had symptoms and went to the ED. She was being managed by [facility] but was dropped after she had her baby in 01/2024 PMH: GERD, POTS . On control: on Verito now She is not breast feeding . Symptoms Recurrent yeast infections Denied any weight changes recently Complications: Cardiovascular -- No Statin Use -- No Retinopathy -- No Last NUBIA/Retina Eval: October 2023 Nephropathy -- not known MARYLU/ARB Use -- No Polyneuropathy -- No Foot Exam: today Obesity -- No Other -- No -Family history of diabetes mellitus: type 2 DM in few family members Personal history of DKA or HHS-- DKA at diagnosis Personal history of pancreatitis-- No History of alcohol consumption--No Family history of thyroid cancer-- No Personal history of Urinary tract infections -- None is the recent past Diabetic education class: not completed Diabetes Medications -Current regimen: Omnipod 5 with Dexcom G6- started 1 month after diagnosis - automated pump- changes every 3 days ICR: 1:14 SF: could not tell. They did not bring Omnipod with them initially, at the end of the encounter they were advised to bring to see if downloading data is possible, but it was not -Misses doses: None -Adverse medication effects: none -Rotating injection sites: every 3 days on abdomen -Previously Used DM Meds: Yes . Blood sugars -Self monitoring of blood sugar via CGM: dexcom No data available to review today . Hypoglycemia -Hypoglycemic episodes: no -Frequency and timing of hypoglycemia: -Hypoglycemia awareness: yes, feels diaphoretic, shaking, dizziness, feeling not all there . Lifestyle -Exercise: occasionally -Diet: 2 to 3 meals, usually skips breakfast Breakfast: Lunch: Dinner: heaviest meal of the day She is eating regular meals . ROS: SYSTEMIC: Denies fatigue, malaise, energy, Weight has been stable, heat/cold intolerance, polydipsia EYES: Denies blurring of vision, diplopia, pain/discomfort, excessive tearing, swelling of eye lids, bulging, redness, dryness, NECK: Denies goiter, lump, pain/discomfort, dysphagia, hoarseness, sore thorat RESPIRATORY: Denies dyspnea at rest/with exertion, orthopnea cough, pleuritic chest pain, snoring, apnea episodes CARDIOVASCULAR: Chest pain, palpitations, irregular heart beats GASTRO-INTESTINAL:Denies Nausea, vomiting, abdominal pain, hyperdefecation, rectal bleeding NEUROLOGICAL: Denies dizziness, lightheadedness, weakness, cramping, numbness/tingling of extremities MUSCULOSKELETAL: Denies joint pain, stiffness, swelling, cramping or weakness. GENITOURINARY: Denies polyuria, recurrent UTI/yeast infections SKIN: Denies dryness, brittle nails, hair loss, alopecia, excessive sweating, flushing, darkening of skin PSYCHIATRIC: Denies anxiety, depression, panic attacks, irritability, mood swings Past Medical History PAST MEDICAL HISTORY Diagnosis Date Constipated Eczema POTS (postural orthostatic tachycardia syndrome) Sprain of ligament of right ankle 04/10/2022 Type 1 diabetes (HCC) Past Surgical History PAST SURGICAL HISTORY Procedure Laterality Date SECTION HX 01/2024 CYSTOSCOPY,INSERT URETHRAL STENT EGD LITHROTRIPSY Family History FAMILY HISTORY Problem Relation Age of Onset other (Hysterectomy) Mother other (Other) Father Unknown GI Maternal Grandmother other (Sponge Kidney) Maternal Grandmother Hypertension Maternal Grandfather Heart Attack Maternal Grandfather Social History Social History Tobacco Use Smoking status: Never Smokeless tobacco: Never Vaping Use Vaping status: current everyday user Substances: Nicotine Devices: Pre-filled pod Substance Use Topics Alcohol use: Never Drug use: Never Allergies ALLERGIES No Known Allergies Current Medications Current Outpatient Medications Medication Sig Dispense Refill Drospirenone-Ethinyl Estradiol (VERITO, 28,) 3-0.03 mg per tablet Take 1 tablet by mouth once daily. 28 tablet 12 DEXCOM G6 SENSOR leny Use as directed. Change sensor every 10 days. alcohol swabs Use as directed to test metered glucose and administer insulin. ONETOUCH VERIO TEST STRIPS test strip Use as directed to test metered glucose 6- 8 times per day ONETOUCH VERIO FLEX METER Use as directed to test metered glucose insulin lispro (HUMALOG KWIKPEN) 100 unit/mL Inject up to 50units SQ daily as directed based on IC ratio and correction factor OMNIPOD 5 G6 INTRO KIT, GEN 5, crtg as directed. ONETOUCH DELICA PLUS LANCET 33 gauge Use as directed to test metered glucose 6-8 times per day UNIFINE PENTIPS PLUS 32 gauge x 5/32 Use as directed to administer insulin 4-6 times per day. No current facility-administered medications for this visit. Vitals: There were no vitals filed for this visit. Physical Exam GENERAL: Well nourished, obese, well hydrated, in no distress and oriented x 3 EYES: no thyroid eye signs, EOMI NECK: , no tenderness and adenopathy THYROID: slight enlargement on inspection, but on palpation does not feel enlarged, non-tender to palpable, no evidence of goiter, no nodules palpable LUNGS: Unlabored on room air HEART: regular rate and rhythm, S1 and S2 normal GI: has purple stretch tay (reportedly from ) Injections sites without lipodystrophy EXTREMITIES: no edema NEURO: normal strength, no tremors OTHER: Acanthosis None Labs TSH Date Value Ref Range Status 08/13/2023 1.490 0.510 - 4.300 mIU/L Final Comment: If the patient is , TSH reference range varies by gestational period: First Trimester (weeks 9-12): 0.180-2.990 mIU/L Second Trimester: 0.110-3.980 mIU/L Third Trimester: 0.480-4.710 mIU/L Lorne Paulson et al. A Practical Approach for the Verifications and Determination of Site- and Trimester-Specific Reference Intervals for Thyroid Function tests in . Thyroid, 2019:29:3:412-420.Raji E, et al. 2017 Guidelines of the [place] Thyroid Association for the Diagnosis and Management of Thyroid Disease during and the . Thyroid, 2017:27:3:315-389. Reference ranges were not locally established for this patient's age group. The normal values are based on the following source: Tenisha Bronson V. Reference Ranges for Adults and Children: Pre-analytical Considerations. [facility] 02/12/2010 2.480 0.400 - 5.500 uU/mL Final Hemoglobin A1C Date Value Ref Range Status 08/13/2023 6.3 (H) 4.3 - 5.6 % Final Comment: [place] Diabetes Association guidelines indicate that patients with HgbA1c in the range 5.7-6.4% are at increased risk for development of diabetes, and intervention by lifestyle modification may be beneficial. HgbA1c greater or equal to 6.5% is considered diagnostic of diabetes. 01/25/2024: Hba1c 5.9% 10/26/2023: TSH 0.909 uIU/ml (0.5-4.3) Free T4 1.1 ng/dl (0.8-1.5) 04/20/2023: Positive for GAD65, ICA, zinc transporter antibodies at the time of diagnosis TPO and TTG antibodies negative Assessment and Plan Type 1 Diabetes mellitus without complications -A1c 5.9% in 12/2023, but this was during . Her hba1c in 07/2023 was 6.3% -eGFR >90 in 01/2024 -Current regimen: Omnipod 5 hybrid loop with Dexcom G6 She does not remember the settings well- she thinks her ICR is 1:14. Device was not available for review hence no changes done today to settings - as requested I renewed prescriptions for Omnipod and Dexcom G6, along with insulin lispro for pump supply. She also requested for pens until she can start using Omnipod. - I recommended that she see diabetes education due to knowledge lack in her medical condition and management - carbohydrate consistent diet recommended, and exercise as possible - advised labs before next visit - in the mean time she was advised to permit to share data with our clinic Diabetes education consult placed She would also like to discuss a different pump next time Uptodate: Guerrier components of routine care for people with diabetes mellitus Reviewed ABCs of diabetes management (respective goals in parentheses): A1C (<7), blood pressure(<140/90), and cholesterol (LDL <100). Reviewed: medications, MOA, timing and changes. Reviewed goals to complete prior to next visit. Health maintenance: BP: 102/76 - Creatinine, GFR: 0.46, >90 (01/2024) during /delivery - Liver enzymes AST, ALT: 74, 55 (01/2024) - Lipids: LDL No record - Urine microalbumin: No record - Thyroid: normal in 09/2023 - Feet: today no issues - Eyes: reports to have had check up in 10/2023, no evidence of retinopathy Scripts sent to pharmacy of pt choice: Yes RTC in 2 months I have confirmed and edited as necessary, the past medical, surgical, family, and social history asobtained by others. Kourtney Sherman MD Endocrinology Associate Staff [facility] Endocrinology and Metabolism [place] [phone] Medical Decision Making: Problems: Moderate: 1+ chronic illnesses with change Data: Unique test result(s) reviewed: 3+ Unique test(s) ordered: 3+ Independent interpretation of test from other physician/QHCP Medical Decision Making Level: 4 - Moderate documented in this encounterW[facility] Telephone encounter Note * Telephone Encounter - Terrie Darby RN - 07/05/2024 9:17 AM EST The following approved medication requests have been transmitted electronically. Requested Prescriptions Signed Prescriptions Disp Refills fluconazole (DIFLUCAN) 150 mg tablet 1 tablet 0 Sig: Take 1 tablet by mouth one time only for 1 dose. Pharmacy Information Pharmacy Address Telephone [id number] [place], [place] [address] [facility]01-07-2025 Miscellaneous Notes* Telephone Encounter - Terrie Darby RN - 07/05/2024 9:17 AM EST The following approved medication requests have been transmitted electronically. Requested Prescriptions Signed Prescriptions Disp Refills fluconazole (DIFLUCAN) 150 mg tablet 1 tablet 0 Sig: Take 1 tablet by mouth one time only for 1 dose. Pharmacy Information Pharmacy Address Telephone [id number] [address] [place] [address] * Telephone Encounter - Breanne Joshi MD - 07/05/2024 9:15 AM EST Order filed * Telephone Encounter - Breanne Mahoney RN - 07/05/2024 9:10 AM EST RX for Diflucan pending. Breanne Mahoney RN documented in this encounterW[facility]01-[facility]-2025 Telephone encounter Note * Telephone Encounter - Breanne Joshi MD - 07/05/2024 9:15 AM EST Order filed [facility]01-07-2025 Telephone encounter Note* Telephone Encounter - Breanne Mahoney RN - 07/05/2024 9:10 AM EST RX for Diflucan pending. Breanne Mahoney RN [facility]01-05-2025 NoteHNO ID: [id number] Author: ANICETO STRONG APRN.COOPERATIVE MANAGER Service: ? Author Type: Nurse Practitioner Type: Progress Notes Filed: 07/03/2024 15:02 Note Text: Patient came in with complaints of abdominal pain. Patient is slightly tender in the lower abdomen but mostly tender in the upper abdomen. Patient is more painful when palpated. Patient says it is about a 7 out of 10 abdominal pain. Patient says has been getting worse over the last week. Patient does have a 4-month-old son. Patient does still have her gallbladder and appendix. Patient said it gets much worse after she drinks. At this time no imaging or labs available patient is being referred to the emergency room for an evaluation. Patient agreeable to care plan. Patient will go now.[facility] 07-03-2024 History of Present illness Narrative* Aniceto Strong APRN.CORINNE - 07/03/2024 3:01 PM EST Patient came in with complaints of abdominal pain. Patient is slightly tender in the lower abdomen but mostly tender in the upper abdomen. Patient is more painful when palpated. Patient says it is about a 7 out of 10 abdominal pain. Patient says has been getting worse over the last week. Patient does have a 4-month-old son. Patient does still have her gallbladder and appendix. Patient said it gets much worse after she drinks. At this time no imaging or labs available patient is being referred to the emergency room for an evaluation. Patient agreeable to care plan. Patient will go now. documented in this encounterW[facility]ner [facility] Center12-27-2024 NoteHNO ID: [id number] Author: ASHELY CHAMBERS PA Service: ? Author Type: Physician Candy Feeder Type: Progress Notes Filed: 06/24/2024 18:01 Note Text: This note was created using MyNextRunriter. Subjective Catalina Capellan is a 18 year old female. HPI 18-year-old female type I diabetic presents for sore throat, cough, vomiting. Patient states she has had symptoms for about 2 to 3 days. She has had 2-3 episodes of vomiting today. She denies any fevers. No abdominal pain. She states she has had a cough and her chest feels heavy due to coughing. Patient states her glucose has been elevated. Currently it is 330. She has not eaten for the past 6 hours. She states that she ran out of her insulin pump 2 days ago. She did get it refilled today, but does not have it on yet. Patient states she is feeling a little lightheaded. She is tachycardic as well here. No chest pain. No other complaint. PAST MEDICAL HISTORY Diagnosis Date Constipated Eczema POTS (postural orthostatic tachycardia syndrome) Sprain of ligament of right ankle 04/10/2022 Type 1 diabetes (HCC) PAST SURGICAL HISTORY Procedure Laterality Date SECTION HX 01/2024 CYSTOSCOPY,INSERT URETHRAL STENT EGD LITHROTRIPSY ALLERGIES Patient has no known allergies. MEDICATIONS Drospirenone-Ethinyl Estradiol (VERITO, 28,) 3-0.03 mg per tablet Take 1 tablet by mouth once daily. DEXCOM G6 SENSOR leny Use as directed. Change sensor every 10 days. alcohol swabs Use as directed to test metered glucose and administer insulin. ONETOUCH VERIO TEST STRIPS test strip Use as directed to test metered glucose 6-8 times per day ONETOUCH VERIO FLEX METER Use as directed to test metered glucose insulin lispro (HUMALOG KWIKPEN) 100 unit/mL Inject up to 50units SQ daily as directed based on IC ratio and correction factor OMNIPOD 5 G6 INTRO KIT, GEN 5, crtg as directed. ONETOUCH DELICA PLUS LANCET 33 gauge Use as directed to test metered glucose 6-8 times per day UNIFINE PENTIPS PLUS 32 gauge x 5/32 Use as directed to administer insulin 4-6 times per day. FAMILY HISTORY Problem Relation Age of Onset other (Hysterectomy) Mother other (Other) Father Unknown GI Maternal Grandmother other (Sponge Kidney) Maternal Grandmother Hypertension Maternal Grandfather Heart Attack Maternal Grandfather Social History Tobacco Use Smoking status: Never Smokeless tobacco: Never Vaping Use Vaping status: current everyday user Substances: Nicotine Devices: Pre-filled pod Substance Use Topics Alcohol use: Never Drug use: Never Review of Systems Constitutional: Negative for chills and fever. HENT: Positive for sore throat. Negative for congestion and ear pain. Respiratory: Positive for cough. Negative for shortness of breath. Cardiovascular: Negative for chest pain. Gastrointestinal: Positive for vomiting. Negative for abdominal pain and diarrhea. Neurological: Positive for dizziness and light-headedness. Objective LMP 05/16/2024 (Approximate) Physical Exam Vitals and nursing note reviewed. Constitutional: General: She is not in acute distress. Appearance: Normal appearance. She is not toxic-appearing. HENT: Nose: Nose normal. Mouth/Throat: Mouth: Mucous membranes are dry. Cardiovascular: Rate and Rhythm: Regular rhythm. Tachycardia present. Pulmonary: Effort: Pulmonary effort is normal. Breath sounds: Normal breath sounds. Skin: General: Skin is warm and dry. Neurological: Mental Status: She is alert. Assessment and Plan ASSESSMENT/PLAN: 1. Tachycardia - ICD9: 785.0, ICD10: R00.0 (primary diagnosis) -Heart rate 130. -Patient reports feeling lightheaded/dizzy. -Type I diabetic, out of insulin x 2 days. Glucose 330 on Dexcom. Has been vomiting. -Recommend evaluation in ER for full workup, concern for dehydration 2. Dizziness - ICD9: 780.4, ICD10: R42 3. Hyperglycemia - ICD9: 790.29, ICD10: R73.9 Diagnosis and treatment plan were discussed and questions were answered to the patient's satisfaction. Pt acknowledged understanding of concepts and follow up plan. Specific signs and symptoms that would indicate the need for higher level of care were discussed in detail warranting prompt ER evaluation. Ashely Chambers [facility]12-27-2024 History of Present illness Narrative* Ashely Chambers, PA - 06/24/2024 5:55 PM EST This note was created using [employer]. Subjective Catalina Capellan is a 18 year old female. HPI 18-year-old female type I diabetic presents for sore throat, cough, vomiting. Patient states she has had symptoms for about 2 to 3 days. She has had 2-3 episodes of vomiting today. She denies anyfevers. No abdominal pain. She states she has had a cough and her chest feels heavy due to coughing. Patient states her glucose has been elevated. Currently it is 330. She has not eaten for the past 6 hours. She states that she ran out of her insulin pump 2 days ago. She did get it refilled today, but does not have it on yet. Patient states she is feeling a little lightheaded. She is tachycardic as well here. No chest pain. No other complaint. PAST MEDICAL HISTORY Diagnosis Date Constipated Eczema POTS (postural orthostatic tachycardia syndrome) Sprain of ligament of right ankle 04/10/2022 Type 1 diabetes (HCC) PAST SURGICAL HISTORY Procedure Laterality Date SECTION HX 01/2024 CYSTOSCOPY,INSERT URETHRAL STENT EGD LITHROTRIPSY ALLERGIES Patient has no known allergies. MEDICATIONS Drospirenone-Ethinyl Estradiol (VERITO, 28,) 3-0.03 mg per tablet Take 1 tablet by mouth once daily. DEXCOM G6 SENSOR leny Use as directed. Change sensor every 10 days. alcohol swabs Use as directed to test metered glucose and administer insulin. ONETOUCH VERIO TEST STRIPS test strip Use as directed to test metered glucose 6- 8 times per day ONETOUCH VERIO FLEX METER Use as directed to test metered glucose insulin lispro (HUMALOG KWIKPEN) 100 unit/mL Inject up to 50units SQ daily as directed based on IC ratio and correction factor OMNIPOD 5 G6 INTRO KIT, GEN 5, crtg as directed. ONETOUCH DELICA PLUS LANCET 33 gauge Use as directed to test metered glucose 6-8 times per day UNIFINE PENTIPS PLUS 32 gauge x 5/32 Use as directed to administer insulin 4-6 times per day. FAMILY HISTORY Problem Relation Age of Onset other (Hysterectomy) Mother other (Other) Father Unknown GI Maternal Grandmother other (Sponge Kidney) Maternal Grandmother Hypertension Maternal Grandfather Heart Attack Maternal Grandfather Social History Tobacco Use Smoking status: Never Smokeless tobacco: Never Vaping Use Vaping status: current everyday user Substances: Nicotine Devices: Pre-filled pod Substance Use Topics Alcohol use: Never Drug use: Never Review of Systems Constitutional: Negative for chills and fever. HENT: Positive for sore throat. Negative for congestion and ear pain. Respiratory: Positive for cough. Negative for shortness of breath. Cardiovascular: Negative for chest pain. Gastrointestinal: Positive for vomiting. Negative for abdominal pain and diarrhea. Neurological: Positive for dizziness and light-headedness. Objective LMP 05/16/2024 (Approximate) Physical Exam Vitals and nursing note reviewed. Constitutional: General: She is not in acute distress. Appearance: Normal appearance. She is not toxic-appearing. HENT: Nose: Nose normal. Mouth/Throat: Mouth: Mucous membranes are dry. Cardiovascular: Rate and Rhythm: Regular rhythm. Tachycardia present. Pulmonary: Effort: Pulmonary effort is normal. Breath sounds: Normal breath sounds. Skin: General: Skin is warm and dry. Neurological: Mental Status: She is alert. Assessment and Plan ASSESSMENT/PLAN: 1. Tachycardia - ICD9: 785.0, ICD10: R00.0 (primary diagnosis) -Heart rate 130. -Patient reports feeling lightheaded/dizzy. -Type I diabetic, out of insulin x 2 days. Glucose 330 on Dexcom. Has been vomiting. -Recommend evaluation in ER for full workup, concern for dehydration 2. Dizziness - ICD9: 780.4, ICD10: R42 3. Hyperglycemia - ICD9: 790.29, ICD10: R73.9 Diagnosis and treatment plan were discussed and questions were answered to the patient's satisfaction. Pt acknowledged understanding of concepts and follow up plan. Specific signs and symptoms that would indicate the need for higher level of care were discussed in detail warranting prompt ER evaluation. NICOLLE Guaman documented [facility] Telephone encounter Note * Telephone Encounter - Jazzy Cunningham RN - 06/13/2024 10:20 AM EST Patient last seen in office on 06/10/24 for control. Jazzy Cunningham RN [facility] Miscellaneous Notes* Telephone Encounter - Jazzy Cunningham RN - 06/13/2024 10:20 AM EST Patient last seen in office on 06/10/24 for control. Jazzy Cunningham RN documented in this encounterW[facility]12-13-2024 Instructions* Patient Instructions* Crissy Graves LPN - 06/10/2024 9:26 AM EST Control Options control is a way for men and women to prevent . There are many different methods of control. By learning more about the options, you can decide which method is right for you and your partner. If you are sexually active and don't want a baby, don't wait to use control. An unwanted can happen any time you have unprotected sex. IUD What is it? An IUD, or intrauterine device, is a small, plastic, flexible, T- shaped device that is placed into the uterus (womb). There two types of IUDs. One type, ParaGard , can be kept in place for 10 years. (It contains copper, which stops the sperm from making it through the vagina and uterus to reach the egg, thus preventing fertilization.) It does NOT contain hormones. There are four IUD sthat contain progesterone.Mirena is an IUD that contains a small amount of progesterone and is keptin place for 7 years. Kyleena is approved for 5 years and has a slightly lower dose. Cristina is similar but smaller and is good for 3 years. Liletta is also approved for 6 years and is ideal for those without insurance coverage. They all release the hormone progesterone, which causes the cervical mucus to become thicker so the sperm cannot reach the egg. The hormone also changes the lining of the uterus, so implantation of a fertilized egg cannot occur. How is it available? You must get a pelvic exam and your provider may check vaginal cultures. The IUD is placed into the uterus through the cervix during an exam in the office by a trained health care provider. How effective is it? The IUD is 99% effective. You should know: Side effects are different for the different IUDs. In some cases copper IUDs can cause more painful and heavy periods and backaches. All of the hormonal IUD s cause periods to be cognos bi developer and some women will have spotting or stop getting periods all together. It is normal to have 3 months of light spotting after insertion. IUDs should not be used if you have a recent history of pelvic infections or are at risk for infections. IUDs do not protect against sexually transmitted diseases (STDs), including HIV (the virus that causes AIDS). The male condom provides the best protection against most STDs. THE CONTROL PILL (ORAL CONTRACEPTIVE) How does it work? Pills work by thickening the cervical mucus so the sperm cannot reach the egg. The hormone in the pills also changes the lining of the uterus, so implantation of a fertilized egg cannot occur. In most cases, pills stop ovulation (the release of an egg). How is it used? A pill is taken at the same time every day. There are several different types of pills. Some are designed to allow the woman to have a period every month and others allow the women tohave period every 3 months. You need to discuss which pill is best for you with your health care provider. How can I get it? The pill must be ordered for you by your health care provider. It is obtained by prescription. How effective is it? The pill is 99% effective, if taken correctly. However, up to 8% of women may get each year if they do not use it correctly. You should know: Certain medications, which your provider will discuss, cause the pill to lose effectiveness. You should use back-up control while taking these medications. The pill can cause minor side effects such as mood symptoms, breast tenderness, nausea and headaches. The hormones in pills can increase the risk of blood clots which usually form in the legs. This risk is higher in women who smoke. The pill is not recommended for women who are over 35 years of age and smoke, but can be used until menopause if you don't smoke cigarettes and are in good health. The Pill does not protect against STDs, including HIV (the virus that causes AIDS). VAGINAL RING (NuvaRing ) What is it? A small, flexible ring that slowly releases the hormones estrogen and progesterone intothe bloodstream through the vaginal wall. It works to prevent the same ways as the pill. How is it used? A vaginal ring is inserted high into the vagina like a tampon. It stays in place for 3 weeks in a row. It is removed for a 1-week break - when the menstrual period occurs - before a new ring is inserted. How can I get it? Your health care provider must order the vaginal ring, which is obtained by prescription. How effective is it? The vaginal ring is 99% effective, if used correctly. However, if used incorrectly, up to 8% of women might get within 1 year. If the ring is removed for more than 3 hours, an additional form of control should be used. You should know: The vaginal ring can cause side effects similar to control pills. The vaginal ring does not protect against STDs, including HIV (the virus that causes AIDS). ANNOVERA is a NEW reusable contraceptive ring approved for one year s use. It is used in a similar fashion as the Nuvaring, but when it is removed, it is stored in a compact case and reused each month for an entire year. ORTHO EVRA -- THE PATCH'' What is it? A patch that prevents by delivering continuous levels of the hormones estrogen and progesterone transdermally (through the skin) and into the bloodstream. It works to prevent the same ways as the pill. How is it used? Ortho Evra is a 1 -inch square patch with hormones embedded in its adhesive layer. It is worn on the lower abdomen, buttocks or upper arm. One patch is worn continuously for 1 week and is replaced with a new patch on the same day of the week (patch change day) for a total of 3 weeks. No patch is worn during the fourth week (patch-free week), when the menstrual period occurs. Although the patch is designed to remain in place during bathing, showering and swimming, you should not apply lotion or oil on or near the patch site. How can I get it? Your health care provider must order the patch, which is obtained by prescription. You apply the patch yourself. How effective is it? The patch is about 99% effective, if used correctly. It is slightly less effective (92%) in women weighing more than 198 pounds. You should know: The patch can cause side effects similar to control pills and can cause an allergic reaction to the adhesive. Some studies have shown the patch delivers higher levels of the hormone estrogen and women may be at greater risk for blood clots. The patch does not protect against STDs, including HIV (the virus that causes AIDS). DEPO-PROVERA What is it? Depo-Provera is a form of the hormone progestin. How is it used? It is given as an injection into the woman's buttocks or arm. Each injection provides protection against for 12 weeks. How is it available? Depo-Provera must be ordered by a health care provider. It is given every 3 months, usually given at the doctor's office. How effective is it? Depo-Provera is 99% effective. You should know: Depo-Provera can cause side effects including mood changes, headaches, breast tenderness, irregular periods and weight gain. Fifty percent of women who use Depo-Provera for more thana year stop getting their periods while on the medication. Because of the risk of bone loss, your provider may recommend calcium supplements for women who use Depo-Provera. Depo-Provera does not protect against STDs, including HIV (the virus that causes AIDS). IMPLANTED HORMONE - NEXPLANON What is it? Nexplanon is a single plastic mariana (1.5 inches long) that is placed directly under the skin of the upper arm by a physician. It delivers the hormone progesterone slowly over a 3-year period. How can I get it? Nexplanon is placed by a physician who is certified in this procedure. How effective is it? It is greater than 99% effective You should know: The side effects are similar to Depo-Provera. Specific side effects include swelling and/or pain at time of placement, breakage or internal scarring of tissue. The device is effective for 3 years and can be removed at any time before if desired. MALE CONDOM What is it? The male condom, or rubber, is a thin covering made of latex, plastic or animal membrane that is rolled over an erect penis. The covering prevents semen, the fluid that contains sperm, from entering a woman's vagina. Latex condoms are best for most people. Use plastic (Chayo ) condoms if you or your partner is allergic to latex. Condoms made from animal skins may not provide good protection from sexually transmitted diseases (STDs). How is it used? The condom is rolled over the erect penis before sexual activity begins. If the condom does not have a built-in nipple, leave -inch of the condom free at the tip of the penis so that semen has a place to collect. A new condom must be used each time you have sex. The condom must be in place before the penis gets near the vagina. How can I get it? Condoms can be purchased at most drug stores. Condoms also are sold in vending machines in restrooms. How effective is it? About 15% of women will get each year when condoms are used. However,condoms can be more effective when they are used exactly as intended. You should know: Latex condoms provide the best protection -- although not 100% protection -- from STDs by preventing the infected area from coming into contact with the partner. Use only water-basedlubricants, such as K-Y Jelly or Astroglide . Oil-based lubricants (Vaseline ) can cause condoms toleak or break. If a condom breaks, a woman is at increased risk of getting . She should seeher health care provider and consider emergency contraception. FEMALE CONDOM What is it? The female condom is a lubricated polyurethane (plastic) tube that has a flexible ring at each end. One end of the tube is closed. How is it used? Before sexual activity begins, the woman inserts the condom into her vagina so thatthe closed end of the tube covers the cervix, and the other end slightly covers the labia (lips on the outside of the vagina). The condom blocks sperm from entering the womb. How can I get it? Like the male condom, the female condom is available at drug stores without a prescription. How effective is it? About 21% of women get each year despite using a female condom, but the condom can be more effective when used exactly as instructed. You should know: Female condoms provide some protection against STDs, but the male condom provides the best protection. SPERMICIDES What is it? Spermicides are foams, jellies, tablets, sponges or suppositories that a woman places in her vagina and up next to the cervix (the opening leading from the vagina to the womb) before sex.Spermicides block the cervix and paralyze the sperm, making them unable to travel into the womb. Some women who choose this method will also use a diaphragm (a round piece of flexible rubber with a rigid rim which is inserted with spermicide prior to sex). How is it used? The woman places the spermicide inside the vagina within 1 hour before intercourse.More spermicide must be used each time you have sex. Follow the directions on the package carefully. How can I get it? Spermicides can be bought at most drug stores. Be careful not to confuse them with feminine hygiene products, such as douche or lubricants. Diaphragms are fitted in your doctor's office and if you gain or lose more than 10-15 pounds you may need to be re-fitted. How effective is it? About 29% of women get each year despite using spermicides, but they can be more effective when used exactly as instructed. You should know: Do not douche after sex when using a spermicide. You can wear a feminine pad to absorb spermicide that comes out. Spermicides do not protect against some STDs, including HIV (the virus that causes AIDS). EMERGENCY CONTRACEPTION What is it? Emergency contraception -- also called Plan B , Daiana , Next Choice or referred to as the morning after pill -- is a form of control that may be used by women within 120 hours (5 days) of having unprotected sex. It is more effective when taken soon after unprotected intercourse. The most commonly used emergency contraception consists of two doses of hormone pills taken in one day 12 hours apart. How does it work? The pill may prevent by temporarily blocking eggs from being produced, by stopping fertilization or keeping a fertilized egg from becoming implanted in the uterus. How is it available? Plan B can be purchased at a pharmacy without a prescription. For those under 17, a health care provider must order the medication. All pharmacies do not have to carry it, so youcan sometimes search ahead of time which pharmacy is likely to carry it. See the website: www.ec-hel p.org. How effective is it? Plan B is about 90% effective when take within 72 hours of unprotected intercourse. Daiana is slightly more effective. You should know: Plan B is generally reserved for emergency situations and is not a regular method of control. Emergencies include being raped, having a condom break or slip off during sex, missing two or more control pills during a monthly cycle and having unplanned sex. ABSTINENCE Abstinence is also the best way to protect you against STDs. You may not be ready to have sex. Don't let someone pressure you into having sex if you don't feel ready. It is an important decision withserious emotional and physical consequences. VASECTOMY Vasectomy is a simple, safe operation that involves interrupting the tubes call the vas deferens that transport sperm. Vasectomy is a one-time procedure that provides permanent sterilization. The procedure is performed in the office under a local anesthetic. Most men are recovered within a few daysof the procedure. To schedule a consultation call [phone] or to learn more about vasectomy, visit [email or web address] Reference Centers for Disease Control: [place] medical eligibility criteria for contraceptive use. www.CDC.gov. Updated 10/16 documented in this [facility]12[facility] NoteHNO ID: [id number] Author: BREANNE JOSHI MD Service: ? Author Type: Physician Type: Progress Notes Filed: 06/10/2024 11:45 Note Text: CONTRACEPTION Catalina Capellan is a 18 year old who presents today for contraception. Patient's last menstrual period was 05/16/2024 (approximate).. HPI: Dysmenorrhea Yes Heavy menses Yes Irregular menses Yes Has been using contraceptive patch for the last 3 months. Bleeding more than not. Previously did ok with the patch. Wants to try OCs again. Was only on the patch because she had trouble remembering to take the pills. Has not established with a new endocrine yet. Requests a referral. Has not run out of insulin yet. SUBJECTIVE Sexually active: Yes Smoking Yes Vaping no cigarettes Last PAP Method of control: Patch Methods tried previously: OCP and Patch Patient currently interested in: Patch or OCP Interested in in the next 3 years? No Date of last test: Not applicable Relevant Past Medical History: History of diabetes type I OB History T0 L1 SAB0 IAB0 Ectopic0 Multiple0 Live Births1 PAST MEDICAL HISTORY Diagnosis Date Constipated Eczema POTS (postural orthostatic tachycardia syndrome) Sprain of ligament of right ankle 04/10/2022 Type 1 diabetes (HCC) PAST SURGICAL HISTORY Procedure Laterality Date SECTION HX 01/2024 CYSTOSCOPY,INSERT URETHRAL STENT EGD LITHROTRIPSY FAMILY HISTORY Problem Relation Age of Onset other (Hysterectomy) Mother other (Other) Father Unknown GI Maternal Grandmother other (Sponge Kidney) Maternal Grandmother Hypertension Maternal Grandfather Heart Attack Maternal Grandfather SOCIAL HISTORY Social History Tobacco Use Smoking status: Never Smokeless tobacco: Never Vaping Use Vaping status: current everyday user Substances: Nicotine Devices: Pre-filled pod Substance Use Topics Alcohol use: Never Drug use: Never PAST SURGICAL HISTORY Procedure Laterality Date SECTION HX 01/2024 CYSTOSCOPY,INSERT URETHRAL STENT EGD LITHROTRIPSY Current Outpatient Medications Medication Sig DEXCOM G6 SENSOR leny Use as directed. Change sensor every 10 days. insulin lispro (HUMALOG KWIKPEN) 100 unit/mL Inject up to 50units SQ daily as directed based on IC ratio and correction factor Norethin Marylu-Eth Estrad-FE (LOESTRIN FE /) 1 mg-20 mcg (21)/75 mg (7) per tablet Take 1 tablet by mouth once daily. fluconazole (DIFLUCAN) 150 mg tablet Take 1 tablet by mouth one time only for 1 dose. alcohol swabs Use as directed to test metered glucose and administer insulin. ONETOUCH VERIO TEST STRIPS test strip Use as directed to test metered glucose 6-8 times per day ONETOUCH VERIO FLEX METER Use as directed to test metered glucose LANTUS SOLOSTAR U-100 INSULIN 100 unit/mL (3 mL) (Patient not taking: Reported on 06/10/2024) OMNIPOD 5 G6 INTRO KIT, GEN 5, crtg as directed. ONETOUCH DELICA PLUS LANCET 33 gauge Use as directed to test metered glucose 6-8 times per day UNIFINE PENTIPS PLUS 32 gauge x 5/32 Use as directed to administer insulin 4-6 times per day. loratadine (CLARITIN) 10 mg tablet Take 10 mg by mouth. (Patient not taking: Reported on 06/10/2024) No current facility-administered medications for this visit. Allergies As of Date: 06/10/2024 (No Known Allergies) Fully Assessed 06/10/2024 SENSITIVE EXAM: Sensitive exam not performed. OBJECTIVE: General Appearance: Well appearing, alert, in no acute distress, well-hydrated, well nourished. Skin: Color normal, Vascularity normal, No evidence of bleeding or bruising, No lesions noted, No edema, Temperature normal, Texture normal, Mobility and turgor normal, Nails normal without clubbing Breasts: deferred Abdomen: deferred PELVIC: deferred BIMANUAL: deferred ASSESSMENT/PLAN: Contraception management Start OCs Referral to adult endocrine for Type 1 DM All contraceptive options were discussed with the patient. R/B/A explained. All questions answered. Pt understands risks including but not limited to increased risk of breast cancer, blood clots and stroke. Counseled for (15) minutes face to face Follow up (prn) Breanne Kimball MD Medical Decision Making: Problems: Moderate: New problem with uncertain prognosis Data: Unique source(s) for external note(s) reviewed: 1 Risk: Moderate: Drug management Medical Decision Making Level: [facility] History of Present illness Narrative* Breanne Joshi MD - 06/10/2024 9:24 AM EST CONTRACEPTION Catalina Capellan is a 18 year old who presents today for contraception. Patient's last menstrual period was 05/16/2024 (approximate).. HPI: Dysmenorrhea Yes Heavy menses Yes Irregular menses Yes Has been using contraceptive patch for the last 3 months. Bleeding more than not. Previously did okwith the patch. Wants to try OCs again. Was only on the patch because she had trouble remembering to take the pills. Has not established with a new endocrine yet. Requests a referral. Has not run outof insulin yet. SUBJECTIVE Sexually active: Yes Smoking Yes Vaping no cigarettes Last PAP Method of control: Patch Methods tried previously: OCP and Patch Patient currently interested in: Patch or OCP Interested in in the next 3 years? No Date of last test: Not applicable Relevant Past Medical History: History of diabetes type I OB History T0 L1 SAB0 IAB0 Ectopic0 Multiple0 Live Births1 PAST MEDICAL HISTORY Diagnosis Date Constipated Eczema POTS (postural orthostatic tachycardia syndrome) Sprain of ligament of right ankle 04/10/2022 Type 1 diabetes (HCC) PAST SURGICAL HISTORY Procedure Laterality Date SECTION HX 01/2024 CYSTOSCOPY,INSERT URETHRAL STENT EGD LITHROTRIPSY FAMILY HISTORY Problem Relation Age of Onset other (Hysterectomy) Mother other (Other) Father Unknown GI Maternal Grandmother other (Sponge Kidney) Maternal Grandmother Hypertension Maternal Grandfather Heart Attack Maternal [facility]father SOCIAL HISTORY Social History Tobacco Use Smoking status: Never Smokeless tobacco: Never Vaping Use Vaping status: current everyday user Substances: Nicotine Devices: Pre-filled pod Substance Use Topics Alcohol use: Never Drug use: Never PAST SURGICAL HISTORY Procedure Laterality Date SECTION HX 01/2024 CYSTOSCOPY,INSERT URETHRAL STENT EGD LITHROTRIPSY Current Outpatient Medications Medication Sig DEXCOM G6 SENSOR leny Use as directed. Change sensor every 10 days. insulin lispro (HUMALOG KWIKPEN) 100 unit/mL Inject up to 50units SQ daily as directed based on IC ratio and correction factor Norethin Marylu-Eth Estrad-FE (LOESTRIN FE 07/18) 1 mg-20 mcg (21)/75 mg (7) per tablet Take 1 tablet by mouth once daily. fluconazole (DIFLUCAN) 150 mg tablet Take 1 tablet by mouth one time only for 1 dose. alcohol swabs Use as directed to test metered glucose and administer insulin. ONETOUCH VERIO TEST STRIPS test strip Use as directed to test metered glucose 6- 8 times per day ONETOUCH VERIO FLEX METER Use as directed to test metered glucose LANTUS SOLOSTAR U-100 INSULIN 100 unit/mL (3 mL) (Patient not taking: Reported on 06/10/2024) OMNIPOD 5 G6 INTRO KIT, GEN 5, crtg as directed. ONETOUCH DELICA PLUS LANCET 33 gauge Use as directed to test metered glucose 6-8 times per day UNIFINE PENTIPS PLUS 32 gauge x 5/32 Use as directed to administer insulin 4-6 times per day. loratadine (CLARITIN) 10 mg tablet Take 10 mg by mouth. (Patient not taking: Reported on 06/10/2024) No current facility-administered medications for this visit. Allergies As of Date: 06/10/2024 (No Known Allergies) Fully Assessed 06/10/2024 SENSITIVE EXAM: Sensitive exam not performed. OBJECTIVE: General Appearance: Well appearing, alert, in no acute distress, well-hydrated, well nourished. Skin: Color normal, Vascularity normal, No evidence of bleeding or bruising, No lesions noted, No edema, Temperature normal, Texture normal, Mobility and turgor normal, Nails normal without clubbing Breasts: deferred Abdomen: deferred PELVIC: deferred BIMANUAL: deferred ASSESSMENT/PLAN: Contraception management Start OCs Referral to adult endocrine for Type 1 DM All contraceptive options were discussed with the patient. R/B/A explained. All questions answered.Pt understands risks including but not limited to increased risk of breast cancer, blood clots and stroke. Counseled for (15) minutes face to face Follow up (prn) Breanne Kimball MD Medical Decision Making: Problems: Moderate: New problem with uncertain prognosis Data: Unique source(s) for external note(s) reviewed: 1 Risk: Moderate: Drug management Medical Decision Making Level: 4 - Moderate [facility]. MICRO - Microbiology PROCEDURE: Urine Culture [O1 *1] SOURCE: Urine BODY SITE: COLLECTED DATE/TIME: 06/08/2024 14:38 EST RECEIVED DATE/TIME: 06/08/2024 19:17 EST START DATE/TIME: 06/08/2024 19:17 EST FREE TEXT SOURCE: FINAL REPORTS Final Report [] Verified Date/Time/Personnel: 06/09/2024 11:29 EST 10,000 - 50,000 cfu/ml Multiple bacterial morphotypes present. Probable Contamination. Suggest recollection if clinically indicated. Order Comments O1: Urine Culture Added by Discern Performing Locations *1: This test was performed at: [facility], [address] [place] [address], [phone] , [facility]11-16-2024 Note. MICRO - Microbiology PROCEDURE: Urine Culture [O1 *1] SOURCE: Urine BODY SITE: COLLECTED DATE/TIME: 05/12/2024 12:45 EST RECEIVED DATE/TIME: 05/12/2024 18:57 EST START DATE/TIME: 05/12/2024 18:57 EST FREE TEXT SOURCE: FINAL REPORTS Final Report [] Verified Date/Time/Personnel: 05/14/2024 14:15 EST >100,000 cfu/ml Staphylococcus epidermidis PRELIMINARY REPORTS Preliminary Report [] Verified Date/Time/Personnel: 05/13/2024 12:15 EST >100,000 cfu/ml Staphylococcus epidermidis CHERELLE to follow SUSCEPTIBILITY RESULTS Staphylococcus epidermidis Antibiotic CHERELLE Dilut CHERELLE Inter Ampicillin/ <=8/4 Resistant Sulbactam Azithromycin >4 Resistant Cefepime <=4 Resistant Ceftriaxone <=4 Resistant Ciprofloxacin <=1 Susceptible ID Panel Not Not Applicable Applicable Imipenem <=4 Resistant Levofloxacin <=1 Susceptible Nitrofurantoin <=32 Susceptible Oxacillin 1 Resistant Penicillin 0.5 Resistant Trimethoprim/ <=0.5/9.5 Susceptible Sulfa Vancomycin 1 Susceptible Order Comments O1: Urine Culture Added by Discern Performing Locations *1: This test was performed at: [address], [address] , [facility]11-14-2024 Hospital Discharge instructions Patient Education 05/12/2024 13:12:12 Muscle Spasm Muscle Spasm A muscle spasm is a sudden tightening of the muscle you can t control. This may be caused by strain, overworking the muscle, or injury. It can also be caused by dehydration, electrolyte imbalance, diabetes, alcohol use, and certain medicines. If it goes on long enough the muscle spasm causes pain. Common areas for muscle spasm are the legs, neck, and back. Home care Heat, massage, and stretching will help relax muscle spasm. When the spasm is in your arm or leg, stretch the muscle passively. To do this, have someone bend or straighten the joint above or below the muscle until you feel the stretch on the sore muscle. You can stretch the muscle actively by moving the affected body part. This will stretch the muscle that is in spasm. For example, if the spasm is in your calf, bend the ankle so your toes point upward toward your knee. This will stretch your calf muscle. You may use yyep-[id number] pain medicine to control pain, unless another medicine was prescribed.If you have chronic liver or kidney disease or ever had a stomach ulcer or gastrointestinal bleeding, talk with your healthcare provider before using these medicines. Follow-up care Follow up with your healthcare provider, or as advised. When to seek medical advice Call your healthcare provider right away if any of the following occur: Fingers or toes become swollen, cold, blue, numb, or tingly You develop weakness in the affected arm or leg Pain increases and is not controlled by the above measures [id number] [employer]. [address] [place] [address]. All rights reserved. This information is not intended as a substitute for professional medical care. Always follow yourhealthcare professional's instructions. Follow Up Care 05/12/2024 12:32:21 With:DIAN VELEZ MD Address: [address] [place] [phone] When:2-4 days [facility] 11-14-2024 Evaluation + Plan note Diagnostic Tests Pending * Urine Culture 05/12/24 [facility] 11-14-2024 Note Discharge Instructions Thank you for allowing [facility] to assist you with your healthcare needs. The following is importantdischarge information regarding your hospital visit. Diagnosis from Today's Visit Lumbar back pain What to Do Next Instructions from Your Care Team Your urine test today was difficult to interpret so a urine culture will be obtained. If that showssigns of infection you will be contacted and started on antibiotics. No qualifying data available. Post Acute Orders No qualifying data available. You Need to Schedule the Following Appointments Follow Up with DIAN VELEZ MD When:Within 2-4 days Where:[address] [place] [address]- Allergies [facility] Medications Please ask your primary doctor or pharmacist before taking any other medication not listed, including over the counter drugs, herbal medications, vitamins and or supplements as they may interact withyour home medications. What How Much When Instructions Last Dose New cyclobenzaprine (cyclobenzaprine 5 mg oral tablet) 1 tab(s) by mouth Three (3) times a day Duration: 10 Days Printed Prescription New naproxen (naproxen 500 mg oral tablet) 1 tab(s) by mouth Two (2) times a day Duration: 10 Days Printed Prescription Unchanged cetirizine (cetirizine 10 mg oral tablet) 1 tab(s) by mouth Once a day Unchanged ethinyl estradiol-norelgestromin (Zafemy 150 mcg-35 mcg/ 24 hr transdermal film, extendedrelease) 1 patch(es) Transdermal Every week apply a new patch to skin weekly for 3 weeks, remove for 1 week, then repeat cycle Unchanged glucagon (Baqsimi One Pack 3 mg nasal powder) 1 puff(s) Intranasal As Directed as needed for Low blood sugar low blood sugar Unchanged Misc Medication (Dexcom G6 Transmitter device) Use as directed. Change transmitter every 3 months. Unchanged Misc Medication (Omnipod 5 G6 Pods (Gen 5) subcutaneous cartridge) Unchanged ondansetron (Zofran ODT use ondansetron oral tablet, disintegrating ) 4 Milligram by mouth Every 8 hours Duration: 5 Days Please take this list to your next doctor s visit. Bring all medications you take, including over the counter medications, herbals and other supplements with you to your doctor s visit. Patients and families are reminded to discard old lists and to update any records with all medication providers or retail pharmacies. Medication Leaflets cyclobenzaprine ([place]) Amrix, Fexmid What is the most important information I should know about cyclobenzaprine? You should not use cyclobenzaprine if you have a thyroid disorder, heart block, congestive heart failure, a heart rhythm disorder, or you have recently had a heart attack. Do not use cyclobenzaprine if you have taken an MAO inhibitor in the past 14 days, such as isocarboxazid, linezolid, phenelzine, rasagiline, selegiline, or tranylcypromine. What is cyclobenzaprine? Cyclobenzaprine is a muscle relaxant. It works by blocking nerve impulses (or pain sensations) thatare sent to your brain. Cyclobenzaprine is used together with rest and physical therapy to relieve muscle spasms caused by painful conditions such as an injury. Cyclobenzaprine may also be used for purposes not listed in this medication guide. What should I discuss with my healthcare provider before taking cyclobenzaprine? You should not use cyclobenzaprine if you are allergic to it, or if you have: a thyroid disorder; heart block, heart rhythm disorder, congestive heart failure; or if you have recently had a heart attack. Cyclobenzaprine is not approved for use by anyone younger than 15 years old. Do not use cyclobenzaprine if you have taken an MAO inhibitor in the past 14 days. A dangerous druginteraction could occur. MAO inhibitors include isocarboxazid, linezolid, phenelzine, rasagiline, selegiline, and tranylcypromine. Some medicines can interact with cyclobenzaprine and cause a serious condition called serotonin syndrome. Be sure your doctor knows if you also take stimulant medicine, opioid medicine, herbal products, or medicine for depression, mental illness, Parkinson's disease, migraine headaches, serious infections, or prevention of nausea and vomiting. Ask your doctor before making any changes in how or when you take your medications. Tell your doctor if you have ever had: liver disease; glaucoma; enlarged prostate; or problems with urination. It is not known whether this medicine will harm an unborn baby. Tell your doctor if you are or plan to become . It may not be safe to breast-feed while using this medicine. Ask your doctor about any risk. Older adults may be more sensitive to the effects of this medicine. How should I take cyclobenzaprine? Follow all directions on your prescription label and read all medication guides or instruction sheets. Your doctor may occasionally change your dose. Use the medicine exactly as directed. Cyclobenzaprine is usually taken once daily for only 2 or 3 weeks. Follow your doctor's dosing instructions very carefully. Swallow the capsule whole and do not crush, chew, break, or open it. Take the medicine at the same time each day. Call your doctor if your symptoms do not improve after 3 weeks, or if they get worse. Store at room temperature away from moisture, heat, and light. What happens if I miss a dose? Take the medicine as soon as you can, but skip the missed dose if it is almost time for your next dose. Do not take two doses at one time. What happens if I overdose? Seek emergency medical attention or call the Poison Help line at . An overdose of cyclobenzaprine can be fatal. Overdose symptoms may include severe drowsiness, vomiting, fast heartbeats, tremors, agitation, or hallucinations. What should I avoid while taking cyclobenzaprine? Avoid driving or hazardous activity until you know how this medicine will affect you. Your reactions could be impaired. Avoid drinking alcohol. Dangerous side effects could occur. What are the possible side effects of cyclobenzaprine? Get emergency medical help if you have signs of an allergic reaction: hives; difficult breathing; swelling of your face, lips, tongue, or throat. Stop using cyclobenzaprine and call your doctor at once if you have: fast or irregular heartbeats; chest pain or pressure, pain spreading to your jaw or shoulder; or sudden numbness or weakness (especially on one side of the body), slurred speech, balance problems. Seek medical attention right away if you have symptoms of serotonin syndrome, such as: agitation, hallucinations, fever, sweating, shivering, fast heart rate, muscle stiffness, twitching, loss of coordination, nausea, vomiting, or diarrhea. Serious side effects may be more likely in older adults. Common side effects may include: drowsiness, tiredness; headache, dizziness; dry mouth; or upset stomach, nausea, constipation. This is not a complete list of side effects and others may occur. Call your doctor for medical advice about side effects. You may report side effects to FDA at 5-846-EEK-4288. What other drugs will affect cyclobenzaprine? Using cyclobenzaprine with other drugs that make you drowsy can worsen this effect. Ask your doctorbefore using opioid medication, a sleeping pill, a muscle relaxer, or medicine for anxiety or seizures. Tell your doctor about all your other medicines, especially: bupropion (Zyban, for smoking cessation); meperidine; tramadol; verapamil; cold or allergy medicine that contains an antihistamine (Benadryl and others); medicine to treat Parkinson's disease; medicine to treat excess stomach acid, stomach ulcer, motion sickness, or irritable bowel syndrome; medicine to treat overactive bladder; or bronchodilator asthma medication. This list is not complete. Other drugs may affect cyclobenzaprine, including prescription and cwql-dyg-elfxgmo medicines, vitamins, and herbal products. Not all possible drug interactions are listed here. Where can I get more information? Your pharmacist can provide more information about cyclobenzaprine. Remember, keep this and all other medicines out of the reach of children, never share your medicines with others, and use this medication only for the indication prescribed. Every effort has been made to ensure that the information provided by [employer]. [employer] is accurate, up-to-date, and complete, but no guarantee is made to that effect. Drug information contained herein may be time sensitive. [employer] information has been compiled for use by healthcare practitioners and consumers in the [place] and therefore [employer] does not warrant that uses outside of the [place] are appropriate, unless specifically indicated otherwise. [employer] drug information does not endorse drugs, diagnose patients or recommend therapy. [employer] drug information isan informational resource designed to assist licensed healthcare practitioners in caring for their p atients and/or to serve consumers viewing this service as a supplement to, and not a substitute for, the expertise, skill, knowledge and judgment of healthcare practitioners. The absence of a warningfor a given drug or drug combination in no way should be construed to indicate that the drug or drug combination is safe, effective or appropriate for any given patient. [employer] does not assume any responsibility for any aspect of healthcare administered with the aid of information [employer] provides. The information contained herein is not intended to cover all possible uses, directions, precautions, warnings, drug interactions, allergic reactions, or adverse effects. If you have questions about the drugs you are taking, check with your doctor, nurse or pharmacist. Copyright 5931-9084 [employer]. Version: 7.01. Revision Date: 01/30/2023. naproxen (na PROX en) Aleve, Aleve Back and Muscle Pain, Aleve Easy Open Arthritis, Aleve Liquid Gels, Anaprox-DS, EC-Naprosyn, Naprelan, Naprosyn What is the most important information I should know about naproxen? Naproxen can increase your risk of fatal heart attack or stroke. Do not use this medicine just before or after heart bypass surgery (coronary artery bypass graft, or CABG). Naproxen may also cause stomach or intestinal bleeding, which can be fatal. What is naproxen? Naproxen is a nonsteroidal anti-inflammatory drug (NSAID). Naproxen is used to treat pain or inflammation caused by conditions such as arthritis, ankylosing spondylitis, tendinitis, bursitis, gout, or menstrual cramps. The delayed-release or extended-release tablets are slower-acting forms of naproxen that are used only for treating chronic conditions such as arthritis or ankylosing spondylitis. These forms of naproxen will not work fast enough to treat acute pain. Naproxen may also be used for purposes not listed in this medication guide. What should I discuss with my healthcare provider before taking naproxen? Naproxen can increase your risk of fatal heart attack or stroke, even if you don't have any risk factors. Do not use this medicine just before or after heart bypass surgery (coronary artery bypass graft, or CABG). Naproxen may also cause stomach or intestinal bleeding, which can be fatal. These conditions can occur without warning while you are using naproxen, especially in older adults. You should not use naproxen if you are allergic to it, or if you have ever had an asthma attack or severe allergic reaction after taking aspirin or an NSAID. Ask a doctor before giving naproxen to a child younger than 12 years old. Ask a doctor or pharmacist if this medicine is safe to use if you have: heart disease, high blood pressure, high cholesterol, diabetes, or if you smoke; a heart attack, stroke, or blood clot; stomach ulcers or bleeding; asthma; liver or kidney disease; fluid retention; or if you take aspirin to prevent heart attack or stroke. If you are , you should not take naproxen unless your doctor tells you to. Taking an NSAID during the last 20 weeks of can cause serious heart or kidney problems in the unborn baby and possible complications with your . It may not be safe to breastfeed while using this medicine. Ask your doctor about any risk. How should I take naproxen? Use exactly as directed on the label, or as prescribed by your doctor. Use the lowest dose that is effective in treating your condition. Shake the oral suspension (liquid) before you measure a dose. Measure a dose with the supplied measuring device (not a kitchen spoon). Take this medicine with food or milk if it upsets your stomach. Always follow directions on the medicine label about giving this medicine to a child. Naproxen doses are based on weight in children. Your child's dose needs may change if the child gains or loses weight. If you use naproxen long-term, you may need frequent medical tests. This medicine can affect the results of certain medical tests. Tell any doctor who treats you that you are using naproxen. Store at room temperature away from moisture, heat, and light. Keep the bottle tightly closed when not in use. What happens if I miss a dose? Since naproxen is used when needed, you may not be on a dosing schedule. Skip any missed dose if it's almost time for your next dose. Do not use two doses at one time. What happens if I overdose? Seek emergency medical attention or call the Poison Help line at . What should I avoid while taking naproxen? Avoid drinking alcohol. It may increase your risk of stomach bleeding. Avoid taking aspirin or other NSAIDs unless your doctor tells you to. Ask a doctor or pharmacist before using other medicines for pain, fever, swelling, or cold/flu symptoms. They may contain ingredients similar to naproxen (such as aspirin, ibuprofen, or ketoprofen). Ask your doctor before using an antacid, and use only the type your doctor recommends. Some antacids can make it harder for your body to absorb naproxen. What are the possible side effects of naproxen? Get emergency medical help if you have signs of an allergic reaction (runny or stuffy nose, wheezing or trouble breathing, hives, swelling in your face or throat) or a severe skin reaction (fever, sore throat, burning eyes, skin pain, red or purple skin rash with blistering and peeling). Stop using naproxen and seek medical treatment if you have a serious drug reaction that can affect many parts of your body. Symptoms may include skin rash, fever, swollen glands, muscle aches, severeweakness, unusual bruising, or yellowing of your skin or eyes. Get emergency medical help if you have signs of a heart attack or stroke: chest pain spreading to your jaw or shoulder, sudden numbness or weakness on one side of the body, slurred speech, leg swelling, feeling short of breath. Stop using naproxen and call your doctor at once if you have: shortness of breath (even with mild exertion); swelling or rapid weight gain; the first sign of any skin rash or blister, no matter how mild; signs of stomach bleeding--bloody or tarry stools, coughing up blood or vomit that looks like coffee grounds; liver problems--nausea, upper stomach pain, loss of appetite, dark urine, gavin- colored stools, jaundice (yellowing of the skin or eyes); kidney problems--little or no urination, painful urination, swelling in your feet or ankles; or low red blood cells (anemia)--pale skin, unusual tiredness, feeling light-headed or short of breath, cold hands and feet. Common side effects may include: headache; indigestion, heartburn, stomach pain; or flu symptoms; This is not a complete list of side effects and others may occur. Call your doctor for medical advice about side effects. You may report side effects to FDA at 1-188-EAW-9487. What other drugs will affect naproxen? Ask your doctor before using naproxen if you take an antidepressant. Taking certain antidepressantswith an NSAID may cause you to bruise or bleed easily. Ask a doctor or pharmacist before using naproxen with any other medications, especially: other NSAIDs or salicylates (diflunisal, salsalate); antacids and sucralfate; cholestyramine; cyclosporine; digoxin; lithium; methotrexate; pemetrexed; probenecid; warfarin (Coumadin, Jantoven) or similar blood thinners; a diuretic or 'water pill'; or heart or blood pressure medication. This list is not complete. Other drugs may affect naproxen, including prescription and jngd-hpe-nhnmqei medicines, vitamins, and herbal products. Not all possible drug interactions are listed here. Where can I get more information? Your pharmacist can provide more information about naproxen. Remember, keep this and all other medicines out of the reach of children, never share your medicines with others, and use this medication only for the indication prescribed. Every effort has been made to ensure that the information provided by [employer] is accurate, up-to-date, and complete, but no guarantee is made to that effect. Drug information contained herein may be time sensitive. [employer] information has been compiled for use by healthcare practitioners and consumers in the [place] and therefore [employer] does not warrant that uses outside of the [place] are appropriate, unless specifically indicated otherwise. [employer] drug information does not endorse drugs, diagnose patients or recommend therapy. [employer] drug information isan informational resource designed to assist licensed healthcare practitioners in caring for their p atients and/or to serve consumers viewing this service as a supplement to, and not a substitute for, the expertise, skill, knowledge and judgment of healthcare practitioners. The absence of a warningfor a given drug or drug combination in no way should be construed to indicate that the drug or drug combination is safe, effective or appropriate for any given patient. [facility] does not assume any responsibility for any aspect of healthcare administered with the aid of information [facility] provides. The information contained herein is not intended to cover all possible uses, directions, precautions, warnings, drug interactions, allergic reactions, or adverse effects. If you have questions about the drugs you are taking, check with your doctor, nurse or pharmacist. Copyright 8706-3264 [employer]. Version: 22.01. Revision Date: 01/29/2023. Education Materials Muscle Spasm A muscle spasm is a sudden tightening of the muscle you can t control. This may be caused by strain, overworking the muscle, or injury. It can also be caused by dehydration, electrolyte imbalance, diabetes, alcohol use, and certain medicines. If it goes on long enough the muscle spasm causes pain. Common areas for muscle spasm are the legs, neck, and back. Home care Heat, massage, and stretching will help relax muscle spasm. When the spasm is in your arm or leg, stretch the muscle passively. To do this, have someone bend or straighten the joint above or below the muscle until you feel the stretch on the sore muscle. You can stretch the muscle actively by moving the affected body part. This will stretch the muscle that is in spasm. For example, if the spasm is in your calf, bend the ankle so your toes point upward toward your knee. This will stretch your calf muscle. You may use lkib-htd-bplivxa pain medicine to control pain, unless another medicine was prescribed.If you have chronic liver or kidney disease or ever had a stomach ulcer or gastrointestinal bleeding, talk with your healthcare provider before using these medicines. Follow-up care Follow up with your healthcare provider, or as advised. When to seek medical advice Call your healthcare provider right away if any of the following occur: Fingers or toes become swollen, cold, blue, numb, or tingly You develop weakness in the affected arm or leg Pain increases and is not controlled by the above measures [id number] The [employer]. [address] [place] [address]. All rights reserved. This information is not intended as a substitute for professional medical care. Always follow yourhealthcare professional's instructions. Additional Information VACCINATE! IT SAVES LIVES! Members of the community who have not yet received the COVID-19 vaccine and would like to receive it can visit one of [facility] vaccine clinics. There are many vaccine clinic locations within the [facility]. For locations and available times, please visit [email or web address] It is important to note that some COVID mobile vaccine clinics are held outdoors and may be canceled in rainy or stormy conditions. To learn more about pediatric vaccinations (ages 5-11), we invite you to visit the [facility] webpage. [email or web address] learn more about the COVID-19 vaccine, we invite you to visit the CDC website for a list of frequently asked questions. https://www.cdc.gov/coronavirus/2019-ncov/vaccines/faq.html [facility] Access Instructions: Stay connected with your healthcare team and access your personal medical information anytime with the [facility] Patient Portal. If you would like a full copy of your medical records please contact the [facility] Medical Records Department Thursday through Thursday between 8a.m. and 4:30p.m. Please follow the directions below to access the portal: 1.Access the email account you provided upon registration to the [facility].2.Look for an invitation email from [facility].3.Open the email and access the invitation link: Accept Invitation to [facility]4.Fill in the required heck to create your account. Sign into [email or web address] with your username and password that you created in the above steps to stay up to date. You can then view a summary of results, a summary of your visits, and the ability to download your summaries to your computer or send the information securely to a physician. Remember that your healthcare information is confidential, so carefully consider who you will allow to register on the [facility] Patient Portal for access to your information. You can also access the [facility] Patient Portal on the [employer]. Simply click on Health Records under [employer] and then click on the [facility] logo. HOW TO SAFELY DISPOSE OF PRESCRIPTION MEDICATIONS Please use one of the following methods to safely dispose of your unused medications. 1.Use a drug disposal kit: the drug disposal pouch allows you to safely discard your old and unuseddrugs. Ask your nurse to give you one when you are discharged.2.Visit a local take-back location: Many local pharmacies and police departments have programs that collect old and unwanted prescriptiondrugs. Call your local pharmacy or go to http://mobileo.PopSeal/7E7Ik1u to find one close to you.3.Make use of household items: Use cat litter or old coffee grounds to dispose medications if other options arenot available. Mix your drugs with these household products, seal them in an airtight container andthrow it into the garbage. Call [facility]: [phone] to be sure your drugs can be disposed of in this way. Some medicines may require a different approach.4.Never flush your medications down the toilet. IF YOU HAVE BEEN PRESCRIBED AN OPIOIDS FOR PAIN If you have been prescribed an opioid (such as hydrocodone, oxycodone or morphine), it is critical to understand the possible side effects and risks of opioid pain medications. Even when taken as directed, opioids can have several side effects including: Tolerance, meaning you might need to take more of a medication for the same pain relief. Nausea, vomiting and/or constipation. Sleepiness, dizziness, dry mouth, confusion, depression or itching. Physical dependence, meaning you have withdrawal symptoms when a medication is stopped ? this can develop within a few days. KNOW YOUR RESPONSIBILITIES It is important to know exactly how much and how often to take the opioid pain medications you are prescribed. Never take opioids in higher amounts or more often than prescribed. Do not combine opioids with alcohol or other drugs that cause drowsiness, such as benzodiazepines, also known as benzos,including diazepam and alprazolam, muscle relaxants or sleep aids. Never sell or share prescriptionopioids. This is illegal. Store opioids in a secure place and out of reach of others (including children, family, friends and visitors). The last page(s) of this document has been signed and retained as a CHART COPY Signatures Patient Education Materials Muscle Spasm Medication Leaflets cyclobenzaprine, naproxen My discharge plan and instructions have been reviewed and explained to me and IMARILIA JAYCEE E understand my current condition and have read and understand these discharge instructions. I have received a written copy of the plan/instructions. If I have questions, I am aware that I should contact my doctor. 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: Date/Time: Relationship to Patient: Witness Name/Signature: Date/Time: [facility]11-07-2024 NoteHNO ID: [id number] Author: JT GÓMEZ MD Service: ? Author Type: Physician Type: Progress Notes Filed: 05/05/2024 14:20 Note Text: Patient presents with: Sore Throat: Body aches, headache x 3 days HPI: Feeling sick for 3 days Positive symptoms: Sore throat, Body Aches, Headache, some Cough, some Rhinorrhea, Negative symptoms: Shortness of breath, Vomiting, Diarrhea, OTC: none Delivered baby 02/18/24 by . She is not breast feeding. MEDICATIONS: Current Outpatient Medications Medication Sig DEXCOM G6 SENSOR leny Use as directed. Change sensor every 10 days. alcohol swabs Use as directed to test metered glucose and administer insulin. ONETOUCH VERIO TEST STRIPS test strip Use as directed to test metered glucose 6-8 times per day ONETOUCH VERIO FLEX METER Use as directed to test metered glucose LANTUS SOLOSTAR U-100 INSULIN 100 unit/mL (3 mL) insulin lispro (HUMALOG KWIKPEN) 100 unit/mL Inject up to 50units SQ daily as directed based on IC ratio and correction factor OMNIPOD 5 G6 INTRO KIT, GEN 5, crtg as directed. ONETOUCH DELICA PLUS LANCET 33 gauge Use as directed to test metered glucose 6-8 times per day UNIFINE PENTIPS PLUS 32 gauge x 5/32 Use as directed to administer insulin 4-6 times per day. loratadine (CLARITIN) 10 mg tablet Take 10 mg by mouth. No current facility-administered medications for this visit. ALLERGIES: ALLERGIES No Known Allergies VITALS: BP 122/88 Pulse 95 Temp 36.3 ?C (97.4 ?F) Resp 20 Wt 71.9 kg (158 lb 8.2 oz) LMP 04/27/2024 (Approximate) SpO2 96% No PHYSICAL EXAM: GEN: mildly ill appearing HEENT: PERRL, EOMI, conjunctiva clear Ears: canals clear. TMs without erythema, bulge, or effusion Sinuses: non-tender frontal sinus, non-tender maxillary sinuses Throat: moist mucous membranes, mild erythema, no exudate Neck: supple, no thyromegaly, no lymphadenopathy HEART: regular rate and rhythm, no murmurs LUNGS: clear to auscultation, no wheezes or crackles, no increased WOB ASSESSMENT/PLAN: 1. Sore throat - ICD9: 462, ICD10: J02.9 - STREP A MOLECULAR (POC) - negative. - suspect viral URI. She will consider doing a home COVID test. - Discussed supportive care treatment with rest, cold medicine, and analgesia. Jt Gómez, [facility]11-07-2024 History of Present illness Narrative* Jt Gómez MD - 05/05/2024 2:03 PM EST Patient presents with: Sore Throat: Body aches, headache x 3 days HPI: Feeling sick for 3 days Positive symptoms: Sore throat, Body Aches, Headache, some Cough, some Rhinorrhea, Negative symptoms: Shortness of breath, Vomiting, Diarrhea, OTC: none Delivered baby 02/18/24 by . She is not breast feeding. MEDICATIONS: Current Outpatient Medications Medication Sig DEXCOM G6 SENSOR leny Use as directed. Change sensor every 10 days. alcohol swabs Use as directed to test metered glucose and administer insulin. ONETOUCH VERIO TEST STRIPS test strip Use as directed to test metered glucose 6- 8 times per day ONETOUCH VERIO FLEX METER Use as directed to test metered glucose LANTUS SOLOSTAR U-100 INSULIN 100 unit/mL (3 mL) insulin lispro (HUMALOG KWIKPEN) 100 unit/mL Inject up to 50units SQ daily as directed based on IC ratio and correction factor OMNIPOD 5 G6 INTRO KIT, GEN 5, crtg as directed. ONETOUCH DELICA PLUS LANCET 33 gauge Use as directed to test metered glucose 6-8 times per day UNIFINE PENTIPS PLUS 32 gauge x 5/32 Use as directed to administer insulin 4-6 times per day. loratadine (CLARITIN) 10 mg tablet Take 10 mg by mouth. No current facility-administered medications for this visit. ALLERGIES: ALLERGIES No Known Allergies VITALS: BP 122/88 Pulse 95 Temp 36.3 C (97.4 F) Resp 20 Wt 71.9 kg (158 lb 8.2 oz) LMP 04/27/2024(Approximate) SpO2 96% No PHYSICAL EXAM: GEN: mildly ill appearing HEENT: PERRL, EOMI, conjunctiva clear Ears: canals clear. TMs without erythema, bulge, or effusion Sinuses: non-tender frontal sinus, non-tender maxillary sinuses Throat: moist mucous membranes, mild erythema, no exudate Neck: supple, no thyromegaly, no lymphadenopathy HEART: regular rate and rhythm, no murmurs LUNGS: clear to auscultation, no wheezes or crackles, no increased WOB ASSESSMENT/PLAN: 1. Sore throat - ICD9: 462, ICD10: J02.9 - STREP A MOLECULAR (POC) - negative. - suspect viral URI. She will consider doing a home COVID test. - Discussed supportive care treatment with rest, cold medicine, and analgesia. Jt Gómez [facility]* Ashlyn Garrett RN - 02/25/2024 11:10 AM EDT Late documentation due to patient care. Mom discharged home in good condition with all belongings to a private residence, accompanied by father of the baby. All discharge instructions reviewed with patient who verbalizes understanding and denies further questions. All discharge videos watched certificate collected. Mom walked out at 1110am. [id number]* Ashlyn Garrett RN - 02/25/2024 11:10 AM EDT Late documentation due to patient care. Mom discharged home in good condition with all belongings to a private residence, accompanied by father of the baby. All discharge instructions reviewed with patient who verbalizes understanding and denies further questions. All discharge videos watched certificate collected. Mom walked out at 1110am. * Russell Leal RN - 02/24/2024 9:00 PM EDT HS blood sugar per patient's CGM: 98mg/dl * Ashlyn Garrett RN - 02/24/2024 9:55 AM EDT Patient cgm glucose reading 86 prior to eating breakfast. * Russell Leal RN - 02/23/2024 9:00 PM EDT HS blood sugar per patient's CGM: 111mg/dl * Marisol Fernandez RN - 02/23/2024 5:06 PM EDT Preprandial blood sugar per patient's CGM: 75mg/dLl. * Marisol Fernandez RN - 02/23/2024 10:46 AM EDT Preprandial blood sugar per patient's personal CGM: 85mg/dl. * Marisol Fernandez RN - 02/23/2024 9:00 AM EDT Late entry due to patient care. Fasting blood sugar per patients CGM: 104mg/dl. Patient has not ordered breakfast at this time. Patient plans to sleep after IV iron sucrose complete and will order food after waking. Patient states she feels very tense and has not slept since delivery. * Akilah guzman Oca, RN - 02/23/2024 6:10 AM EDT After receiving Dilaudid for pain. Pt instructed to breast pump as pt was not able to pump earlier due to abdominal pain. latching for few sucks and not getting an adequate feed. Pt re-educated on pumping after every attempted breast feed so milk production won't be delayed. Pt verbalized understanding. * Akilah guzman Oca, RN - 02/23/2024 2:10 AM EDT Pt called nurse into room to inform nurse that she voided again. Pt voided 800 ml clear, yellow urine. Pt reports that she feels she may not be emptying her bladder completely as she feels like she still has to void and is having waves of pain in her abdomen. Visual inspection of her abdomen doesnot look distended. Fundal check at U and firm. Bladder scan shows 282 ml of urine. Straight cath performed. Pt verbalized relief of abdominal pain after straight cath. Will report findings to resident educational psychologist. Will continue to monitor pt's UO. * Akilah guzman Oca, RN - 02/22/2024 10:30 PM EDT HS blood sugar per pt's own CGM: 135mg/dl * Akilah guzman Oca, RN - 02/22/2024 7:45 PM EDT AC blood sugar per pt's own CGM 100mg/dl * Marisol Fernandez RN - 02/22/2024 12:06 PM EDT Patient ambulated to bathroom for first time with assistance of this RN. Patient voided. Educated patient on danita care and use of supplies including pads and danita bottle. Bleeding appears to be WNL. Patient demonstrates and verbalizes understanding. Patient tolerated activity well. Patient ambulated back to bed with the assistance of RN, patient verbalizes understanding to use call light and ask for assistance to the bathroom. * Margareth Orellana RN - 02/22/2024 5:29 AM EDT Dilia discharge videos assigned at this time. * Margareth Orellana RN - 02/22/2024 4:20 AM EDT RN went over admission folder/paperwork with pt and FOB at this time. RN educated pt and FOB on theinfant blood sugar protocol due to being LGA and pt being T1DM. RN explained to the pt that the infant needs 3 blood sugars in a row before feedings 45 or greater. RN explained to the pt about the needing the car seat challenge completed before infant is discharged and the will be on q4 hour vitals. Pt understands and has no questions or concerns at this time. * Margareth Orellana RN - 02/22/2024 3:50 AM EDT RN at bedside for admission. RN oriented pt to room and call light. Call light and bedside table within reach. documented in this [facility]08-29-2024 History of Present illness Narrative* Nely Brown MD - 02/25/2024 10:47 AM EDT Department of Internal Medicine Division of Endocrinology, Diabetes, & Metabolism Endocrinology Note Patient Name: Catalina Capellan : 2005 AGE: 18 y.o. Room/Bed: [facility] A Admission Date: 02/18/2024 Visit Date: 02/25/2024 Reason for Endocrine Consult: T1DM on Insulin pump Provider/Team Requesting Consult: OB PCP: No primary care provider on file. Outpt Field Talent Qualification Specialist: Yes Previously followed [facility] ASSESSMENT: Pre-existing type 1 diabetes mellitus, Insulin pump use Hypoglycemia due to insulin Preeclampsia with severe features status post PLAN: -Okay to discharge home from endocrinology standpoint -Will continue Omnipod 5 pump/Dexcom G6 CGM with Humalog -Continue current pump settings: Basal 0.5, ICR to 12am 14 and 6am 10, sensitivity 50 -Continue automode -Continue use of sensor -reviewed management of hypoglycemia -counseled pt on DM management -carb controlled diet -Patient has enough insulin and pump supplies -FU with [facility] Endocrinology outpatient ANTICIPATED ENDOCRINE HOME GOING RECOMMENDATIONS: Optimized for Discharge from Endocrine standpoint: Yes Home Going Endocrine Rx Recommendations-- Insulin pump Omnipod 5/Dexcom G6 Outpt Follow Up--with [facility] SUBJECTIVE/HPI: CHIEF COMPLAINT: Chief Complaint Patient presents with Hypertension Patient is a 18 y.o F with PMHx significant for T1DM on insulin pump, anxiety/depression, Vit D deficiency who was admitted on 02/18/24 for preeclampsia with severe features and underwent on 02/21/24. Type of DM: Type 1 Onset of DM: 04/20/23 Home DM Medication Regimen: Humalog via Insulin pump, started in 05/2023 Pre- insulin pump settings are Basal rates: 12 am: 0.5 units/hr 6 am: 0.5 units/hr 8 pm: 0.5 units/hr ICR 12A: 1:14 6A: 1:10 11A: 1:10 4P: 1:10 8P: 1:10 DM control (last A1c/glucose data): 6.1 MFM managed her T1DM during . Interim history: Pt is being discharged today. Baby is still in the NICU. No acute events overnight. No further episodes of hypoglycemia. She has been doing well. Reviewed pump history. Patient appropriately bolusing for her meals. She has not eaten breakfast today. Patient is not packing. Family members at bedside. Glucose Date/Time Value Ref Range Status 02/24/2024 09:45 AM 86 70 - 100 mg/dL Final 02/22/2024 12:43 PM 104 (H) 70 - 100 mg/dL Final 02/22/2024 06:54 AM 171 (H) 70 - 100 mg/dL Final 02/22/2024 12:16 AM 137 (H) 70 - 100 mg/dL Final 02/21/2024 09:04 PM 85 70 - 100 mg/dL Final 02/21/2024 04:56 PM 71 70 - 100 mg/dL Final Review of Systems Constitutional: Negative for fatigue and fever. Respiratory: Negative for cough and shortness of breath. Cardiovascular: Negative for chest pain. Gastrointestinal: Negative for nausea and vomiting. Genitourinary: Negative for dysuria, frequency and urgency. Skin: Negative for rash. Neurological: Negative for dizziness and light-headedness. ROS negative except for those mentioned in HPI. OBJECTIVE: Vitals: 02/24/24 1958 02/25/24 0010 02/25/24 0426 02/25/24 0758 BP: 128/88 136/86 138/87 127/85 Pulse: 83 95 88 102 Resp: 18 18 18 16 Temp: 36.8 C (98.2 F) 36.7 C (98 F) 36.3 C (97.4 F) 36.7 C (98.1 F) TempSrc: Temporal Temporal Temporal Temporal SpO2: 97% 96% 99% 97% Weight: Height: Physical Exam Constitutional: General: She is not in acute distress. Cardiovascular: Rate and Rhythm: Normal rate. Pulmonary: Effort: Pulmonary effort is normal. No respiratory distress. Musculoskeletal: Right lower leg: Edema present. Left lower leg: Edema present. Skin: General: Skin is warm and dry. Neurological: General: No focal deficit present. Mental Status: She is alert. Gait: Gait normal. Psychiatric: Mood and Affect: Mood normal. 24 hour intake/output:No intake or output data in the 24 hours ending 02/25/24 1047 Diet: Adult diet Regular; 5 carb choices (75 gm/meal) Medications (as per EMR): HomeMeds: Current Outpatient Medications Medication Instructions amoxicillin (Amoxil) 250 MG capsule 1 capsule, Oral, 3 times daily aspirin 81 mg, Oral, Daily cholecalciferol (Vitamin D3) 25 MCG (1000 UT) tablet Oral, Daily docusate sodium (COLACE) 100 mg, Oral, 2 times daily PRN FeroSul 325 mg, Oral, Daily with breakfast ibuprofen 600 mg, Oral, Every 6 hours insulin lispro (HumaLOG) 100 UNIT/ML patient supplied pump SubCUTAneous, Continuous NIFEdipine XL (PROCARDIA XL) 60 mg, Oral, Nightly, Do not crush, chew, or split. oxyCODONE (ROXICODONE) 5 mg, Oral, Every 4 hours PRN Vit-Fe Fumarate-FA ( 1+1 PO) 1 tablet, Oral, Daily Scheduled Meds:enoxaparin, 40 mg, SubCUTAneous, Daily ferrous sulfate, 325 mg, Oral, BID WC ibuprofen, 600 mg, Oral, q6h iron sucrose, 200 mg, IntraVENous, q24h measles, mumps and rubella, 0.5 mL, SubCUTAneous, Prior to discharge NIFEdipine XL, 60 mg, Oral, Nightly vitamin, 1 tablet, Oral, Daily sodium chloride 0.9%, 5-40 mL, IntraVENous, 2 times per day Tdap-Dtap, 0.5 mL, IntraMUSCular, Prior to discharge Continuous Infusions:insulin lispro, PRN Meds:PRN medications: acetaminophen, calcium gluconate, dextrose, dextrose, diphenhydrAMINE, docusate sodium, famotidine, glucagon (rDNA), glucose, HYDROmorphone OR HYDROmorphone, lanolin, naloxone, ondansetron ODT OR ondansetron, oxyCODONE OR oxyCODONE, simethicone, sodium chloride, sodium chloride 0.9% Diagnostic Workup: I reviewed pertinent Laboratory results, Radiographic results, and Other Clinical Notes at the timeof today's encounter. Labs: No components found for: LABA1C No components found for: EAG Lab Results Component Value Date NA 134 (L) 02/23/2024 K 3.7 02/23/2024 CL 108 (H) 02/23/2024 CO2 21 (L) 02/23/2024 BUN 6 (L) 02/23/2024 CREATININE 0.46 (L) 02/23/2024 GLUCOSE 79 02/23/2024 CALCIUM 7.1 (L) 02/23/2024 No results found for: CHLPL, CHOL No results found for: TRIG No results found for: HDL No results found for: LDLCALC No results found for: VLDL No results found for: CHOLHDLRATIO No results found for: [id number] Lab Results Component Value Date TSH 0.947 10/30/2023 THYROIDAB <3.0 09/01/2023 History/Other: Past Medical History: Past Medical History: Diagnosis Date Anemia Anxiety Depression Diabetes mellitus affecting Kidney stone Orthostatic intolerance POTS (postural orthostatic tachycardia syndrome) Past Surgical History: Past Surgical History: Procedure Laterality Date KIDNEY STONE SURGERY no incision Allergy(ies): No Known Allergies Family History: No family history on file. Social History: Social History Tobacco Use Smoking status: Never Smokeless tobacco: Never Vaping Use Vaping status: Never Used Substance Use Topics Alcohol use: Never Drug use: Never Portions of the information within this encounter were entered using an electronic dictation system. Best attempts were made to edit/proofread the information prior to note completion. Despite the review of information, some errors may remain. If there are questions related to the information contained within the note please contact the signing physician directly. I spent 35 minutes with the pt which involved coordination of care, medical evaluation, review of records, and/or counseling of the pt regarding his/her condition/disease state/prognosis on the date of this note. * Jose A Hernandez MD - 02/25/2024 6:34 AM EDT Images from the original note were not included. Note- POST OPERATIVE DAY # 4 Catalina Capellan is a 18 y.o. who was seen & examined today. Her was complicated by: Patient Active Problem List Diagnosis Pre-existing type 1 diabetes affecting , antepartum Type 1 diabetes mellitus complicating in second trimester, antepartum Diabetes mellitus affecting in third trimester Preeclampsia, third trimester Today she is doing well without any chief complaint. She was evaluated in the NICU due to her baby being transferred there overnight. Her lochia is light. She denies Headache, Chest Pain, Vision Changes, and Shortness of Breath. She is ambulating well. Flatus present. Bowel movement present. Voiding spontaneously . She is tolerating solids. Pain is controlled. Vital Signs: Vitals: 02/24/24 1615 02/24/24 1958 02/25/24 0010 02/25/24 0426 BP: 136/85 128/88 136/86 138/87 Pulse: 93 83 95 88 Resp: 16 18 18 18 Temp: 36.5 C (97.7 F) 36.8 C (98.2 F) 36.7 C (98 F) 36.3 C (97.4 F) TempSrc: Temporal Temporal Temporal Temporal SpO2: 97% 97% 96% 99% Weight: Height: Urine Input & Output last 24hrs: Intake/Output Summary (Last 24 hours) at 02/25/2024 0635 Last data filed at 02/24/2024 1030 Gross per 24 hour Intake -- Output 1500 ml Net -1500 ml Physical Exam: GENERAL APPEARANCE: alert, well appearing, in no apparent distress ABDOMEN : benign non-tender, without masses or organomegaly palpable EXTREMITIES: no redness or tenderness in the calves or thighs, no edema NEUROLOGIC: alert, oriented, normal speech, no focal findings or movement disorder noted UTERUS : normal size, well involuted, firm, non-tender Incision is CDI and is covered in steris Labs: Lab Results Component Value Date WBC 10.6 02/23/2024 HGB 9.0 (L) 02/23/2024 HCT 29.4 (L) 02/23/2024 MCV 81.9 02/23/2024 PLT 111 (L) 02/23/2024 O Antibody Screen: No results found for: LABANTI No results found for: RUBELLAIGG LABOR DELIVERY ??? SCD's ONLY (labor through ambulation) SCD's PLUS Prophylactic Anticoagulation until discharge SCD's PLUS Prophylactic Anticoagulation for 6 weeks SCD's PLUS Therapeutic Anticoagulation for 6 weeks Vaginal Delivery [] BMI ? 40 kg/m2 Delivery All patients Vaginal Delivery [] BMI ? 40 kg/m2 AND [] Antepartum hospitalization ? 72 hours within the past month Delivery 1 Major Risk Factor: [] BMI ? 35 kg/m2 [] Low Risk Thrombophilia [] PPH+RBCs, IR, or operation [] Infection+Antibiotics [x] Antepartum hospitalization ? 72 hours within the past month [] PMH: Sickle Cell, SLE, Cardiac Dz, Active IBD, Active Cancer, Nephrotic Syndrome OR 2 Minor Risk Factors: [] Multiple gestation [] Age > 40 [] PPH ? 1,000cc [] (+)FMH of VTE [] Smoker [x] Preeclampsia [] BMI ? 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), Prothrombin (homozygous), FVL+Prothrombin (heterozygous), Antithrombin III, APLS Assessment/Plan: Catalina Capellan is a 18 y.o. POD # 4 s/p PLTCS 2/2 PreEwSF Care - Doing well, VSS - Male - breast feeding - Contraception: Per Private Attending - Encourage ambulation and use of incentive spirometer - D/C gamez catheter and saline lock IV on POD #1 - Postop Hb 8.5 - VTE Prophylaxis: Prophylactic Dosing until Discharge, unheld PreEwSF Gestational Thrombocytopenia - Doing well this am, labs improved since - Bp has been normotensive to mild range, recently normotensive - S/p magnesium - Procardia titrated to 60mg XL daily - Asx this am T1DM - Managed by endocrinology - BGT goal is > 80 post - Sugars above goal post - Patietn doing well without symptoms or complaints Chronic Anemia - Hgb 9.7 on admission, most recent repeat was 9.0 - Has received venofer antepartum and has received 2 doses post - QBL 556 - VSS, asx Tooth Pain - S/p amoxicillin for tooth extraction Disposition: Continue current care Provider's Name: MD Jose A Streeter MD 02/25/2024, 6:35 AM * Roxie Liz DO - 02/24/2024 2:13 PM EDT Department of Internal Medicine Division of Endocrinology, Diabetes, & Metabolism Endocrinology Note Patient Name: Catalina Capellan : 2005 AGE: 18 y.o. Room/Bed: -4120/H-4120 A Admission Date: 02/18/2024 Visit Date: 02/24/2024 Reason for Endocrine Consult: T1DM on Insulin pump Provider/Team Requesting Consult: OB PCP: No primary care provider on file. Outpt Field Talent Qualification Specialist: Yes Previously followed [facility] ASSESSMENT: T1DM on correction insulin Insulin pump use Preeclampsia with severe features s/p C-sectio PLAN: - Patient is s/p and is doing well - I reviewed her current pump settings (documented in HPI). Her sugar is fairly controlled with current regimen. Blood sugars ranged from 70s to 100s. Patient also has not been eating very well. - Patient was asked to changed the ICR to prepregnancy settings. Upon reviewing her insulin pump, it was discovered that patient had not yet made the change and was still on insulin pump setting. This explains why her blood sugar has been running on the lower side. - We changed the settings to prepregnancy settings at the bedside. - Continue current insulin settings (pre- settings). Patient to follow up with [facility] - Please refer to HPI and orders for current insulin pump settings. . - Carb controlled diet - Hypoglycemia management per protocol ANTICIPATED ENDOCRINE HOME GOING RECOMMENDATIONS: Optimized for Discharge from Endocrine standpoint: Yes Home Going Endocrine Rx Recommendations-- Insulin pump with following settings: Basal rates: 12 am: 0.5 units/hr 6 am: 0.5 units/hr 8 pm: 0.5 units/hr ICR 12A: 1:14 6A: 1:10 11A: 1:10 4P: 1:10 8P: 1:10 Correction Factor: 50 Outpt Follow Up--with [facility]. Patient to call and make an appointment SUBJECTIVE/HPI: CHIEF COMPLAINT: Chief Complaint Patient presents with Hypertension Patient is a 18 y.o F with PMHx significant for T1DM on insulin pump, anxiety/depression, Vit D deficiency who was admitted on 02/18/24 for preeclampsia with severe features and underwent on 02/21/24. Type of DM: Type 1 Onset of DM: 04/20/23 Home DM Medication Regimen: Humalog via Insulin pump, started in 05/2023 DM control (last A1c/glucose data): 6.1 MFM managed her T1DM on insulin pump - omnipod Pre- insulin pump settings are Basal rates: 12 am: 0.5 units/hr 6 am: 0.5 units/hr 8 pm: 0.5 units/hr ICR 12A: 1:14 6A: 1:10 11A: 1:10 4P: 1:10 8P: 1:10 No acute events overnight. Vital signs stable. Hyponatremia improving and at 134. Normal renal function. Improving transaminitis. Leukocytosis has resolved and hemoglobin and hematocrit improving. Blood glucose has been running on the lower end. Dexcom reviewed. Blood sugars remained in the 70s forseveral hours around midnight, Bgs were in the 100s this am and has remained in the 80s through outthe day. States she hasn't been eating very well and doesn't really have an appetite. Did finish the breakfast and lunch. States she eats better at home. Denies chest pain, SOB, fevers, chills, nausea, vomiting, diarrhea. Glucose Date/Time Value Ref Range Status 02/24/2024 09:45 AM 86 70 - 100 mg/dL Final 02/22/2024 12:43 PM 104 (H) 70 - 100 mg/dL Final 02/22/2024 06:54 AM 171 (H) 70 - 100 mg/dL Final 02/22/2024 12:16 AM 137 (H) 70 - 100 mg/dL Final 02/21/2024 09:04 PM 85 70 - 100 mg/dL Final 02/21/2024 04:56 PM 71 70 - 100 mg/dL Final Review of Systems Constitutional: Negative for activity change, chills, fatigue, fever and unexpected weight change. Respiratory: Negative for cough, chest tightness and shortness of breath. Cardiovascular: Negative for chest pain. Gastrointestinal: Negative for abdominal pain, nausea and vomiting. Genitourinary: Negative for dysuria, frequency and urgency. Skin: Negative for rash. Neurological: Negative for dizziness and light-headedness. Psychiatric/Behavioral: Negative for agitation. ROS negative except for those mentioned in HPI. OBJECTIVE: Vitals: 02/24/24 0755 02/24/24 1053 02/24/24 1136 02/24/24 1345 BP: 139/93 155/100 149/92 133/87 Pulse: 92 97 110 78 Resp: 16 16 16 Temp: 36.9 C (98.4 F) 37 C (98.6 F) 36.7 C (98.1 F) 37 C (98.6 F) TempSrc: Temporal Temporal Temporal SpO2: 95% 97% 96% 96% Weight: Height: Physical Exam Constitutional: General: She is not in acute distress. Appearance: Normal appearance. She is not ill-appearing. HENT: Mouth/Throat: Mouth: Mucous membranes are moist. Cardiovascular: Rate and Rhythm: Normal rate and regular rhythm. Pulses: Normal pulses. Heart sounds: Normal heart sounds. No murmur heard. No gallop. Pulmonary: Effort: Pulmonary effort is normal. No respiratory distress. Breath sounds: Normal breath sounds. No wheezing or rales. Abdominal: General: Abdomen is flat. Bowel sounds are normal. There is no distension. Palpations: Abdomen is soft. Tenderness: There is no abdominal tenderness. There is no guarding. Musculoskeletal: Right lower leg: No edema. Left lower leg: No edema. Skin: General: Skin is warm and dry. Neurological: General: No focal deficit present. Mental Status: She is alert. Psychiatric: Mood and Affect: Mood normal. 24 hour intake/output: Intake/Output Summary (Last 24 hours) at 02/24/2024 1413 Last data filed at 02/24/2024 1030 Gross per 24 hour Intake -- Output 3300 ml Net -3300 ml Diet: Adult diet Regular; 4 carb choices (60 gm/meal) Medications (as per EMR): HomeMeds: Current Outpatient Medications Medication Instructions amoxicillin (Amoxil) 250 MG capsule 1 capsule, Oral, 3 times daily aspirin 81 mg, Oral, Daily cholecalciferol (Vitamin D3) 25 MCG (1000 UT) tablet Oral, Daily DSS 100 mg, Oral, 2 times daily PRN ferrous sulfate 325 mg, Oral, Daily with breakfast ibuprofen 600 mg, Oral, Every 6 hours insulin lispro (HumaLOG) 100 UNIT/ML patient supplied pump SubCUTAneous, Continuous NIFEdipine XL (PROCARDIA XL) 60 mg, Oral, Nightly, Do not crush, chew, or split. oxyCODONE (ROXICODONE) 5 mg, Oral, Every 4 hours PRN Vit-Fe Fumarate-FA ( 1+1 PO) 1 tablet, Oral, Daily Scheduled Meds:enoxaparin, 40 mg, SubCUTAneous, Daily ferrous sulfate, 325 mg, Oral, BID WC ibuprofen, 600 mg, Oral, q6h iron sucrose, 200 mg, IntraVENous, q24h measles, mumps and rubella, 0.5 mL, SubCUTAneous, Prior to discharge NIFEdipine XL, 60 mg, Oral, Nightly vitamin, 1 tablet, Oral, Daily sodium chloride 0.9%, 5-40 mL, IntraVENous, 2 times per day Tdap-Dtap, 0.5 mL, IntraMUSCular, Prior to discharge Continuous Infusions:insulin lispro, PRN Meds:PRN medications: acetaminophen, calcium gluconate, dextrose, dextrose, diphenhydrAMINE, docusate sodium, famotidine, glucagon (rDNA), glucose, HYDROmorphone OR HYDROmorphone, lanolin, naloxone, ondansetron ODT OR ondansetron, oxyCODONE OR oxyCODONE, simethicone, sodium chloride, sodium chloride 0.9% Diagnostic Workup: I reviewed pertinent Laboratory results, Radiographic results, and Other Clinical Notes at the timeof today's encounter. Labs: No components found for: LABA1C No components found for: EAG Lab Results Component Value Date NA 134 (L) 02/23/2024 K 3.7 02/23/2024 CL 108 (H) 02/23/2024 CO2 21 (L) 02/23/2024 BUN 6 (L) 02/23/2024 CREATININE 0.46 (L) 02/23/2024 GLUCOSE 79 02/23/2024 CALCIUM 7.1 (L) 02/23/2024 No results found for: CHLPL, CHOL No results found for: TRIG No results found for: HDL No results found for: LDLCALC No results found for: VLDL No results found for: CHOLHDLRATIO No results found for: [id number] Lab Results Component Value Date TSH 0.947 10/30/2023 THYROIDAB <3.0 09/01/2023 Radiology reportsas per the Radiologist Radiology: ECG 12 lead Result Date: 02/21/2024 Sinus rhythm Nonspecific T abnormalities, anterior leads Electronically Signed On 02-21-2024 18:06:36 EDT by Amanda Gar POCT glucose meter Result Date: 02/19/2024 Performed by: [facility], [address] [place] [id number] CLIA ID: [id number] POCT glucose meter Result Date: 02/19/2024 Performed by: [facility], [address] [place] [id number] CLIA ID: [id number] POCT glucose meter Result Date: 02/19/2024 Performed by: [facility], [address] [place] [address] [place] [address] CLIA ID: [id number] POCT glucose meter Result Date: 02/19/2024 [facility]formed by: [facility], [address] [place] [address] [place] [address] CLIA ID: [id number] POCT glucose meter Result Date: 02/19/2024 Performed by: [facility], [address] [place] [address] [place] [address] CLIA ID: [id number] POCT glucose meter Result Date: 02/19/2024 Performed by: [facility], [address] [place] [address] [place] [address] CLIA ID: [id number] POCT glucose meter Result Date: 02/19/2024 Performed by: [facility], [address] [place] [address] [place] [address] CLIA ID: [id number] POCT glucose meter Result Date: 02/18/2024 Performed by: [facility], [address] [place] [id number] CLIA ID: [id number] POCT glucose meter Result Date: 02/18/2024 Performed by: [facility], [address] [place] [id number] CLIA ID: [id number] History/Other: Past Medical History: Past Medical History: Diagnosis Date Anemia Anxiety Depression Diabetes mellitus affecting Kidney stone Orthostatic intolerance POTS (postural orthostatic tachycardia syndrome) Past Surgical History: Past Surgical History: Procedure Laterality Date KIDNEY STONE SURGERY no incision Allergy(ies): No Known Allergies Family History: No family history on file. Social History: Social History Tobacco Use Smoking status: Never Smokeless tobacco: Never Vaping Use Vaping status: Never Used Substance Use Topics Alcohol use: Never Drug use: Never Portions of the information within this encounter were entered using an electronic dictation system. Best attempts were made to edit/proofread the information prior to note completion. Despite the review of information, some errors may remain. If there are questions related to the information contained within the note please contact the signing physician directly. I spent 45 minutes with the pt which involved coordination of care, medical evaluation, review of records, and/or counseling of the pt regarding his/her condition/disease state/prognosis on the date of this note. Associated attestation - Nely Brown MD - 02/24/2024 6:49 PM EDT I performed a history and physical examination of the patient. I have reviewed the patient's chart including pertinent history, medications, labs, radiology, and other reports. I reviewed the resident/TANIA's note, agree with the documented findings and plan of care (with modifications noted if any),and discussed the management plan. Pt seen on 02/23/24. Pt seen at bedside. She has been trying to breastfeed. Has been a little overwhelmed with everything. Patient has been using her pump appropriately. Also on her sensor. However, when I reviewed her pump settings today, she still had the same settings from the day after surgery. She never made the changes 2 days ago nor the changes yesterday that we gave her even though she acknowledged them and gave her written instructions. She was also surprised that she forgot to make the changes. This wouldexplain her hypoglycemia. She had a SG of 63 today and RN brought in regular soda. Adult diet Regular; 5 carb choices (75 gm/meal) Estimated Creatinine Clearance: 125 mL/min (A) (by C-G formula based on SCr of 0.46 mg/dL (L)). BP 136/85 Pulse 93 Temp 36.5 C (97.7 F) (Temporal) Resp 16 Ht 5' 6 (1.676 m) Wt 183 lb (83 kg) SpO2 97% Yes Comment: also bottle feeding BMI 29.54 kg/m awake, alert, not in distress, +BLE edema, no focal deficits, pump and sensor intact, normal mood and affect. Dx: Pre-existing type 1 diabetes mellitus, Insulin pump use Hypoglycemia due to insulin Preeclampsia with severe features status post Plan: -Advised patient to treat hypoglycemia as soon as we leave the room -Will continue Omnipod 5 pump/Dexcom G6 CGM with Humalog -Will adjust her pump settings to the following: Basal 0.5, ICR to 12am 14 and 6am 10, sensitivity 50 -- all of which were her pre- settings --we made the adjustments together while in the room to ensure that these do not get missed -Advised patient to remain on automode -Continue use of sensor -PRN fingerstick glucose checks if sensor glucose readings are above 300 or less than 70 -Advised RN to document sensor glucose readings on patient's chart (before every meal and at bedtime) -management of hypoglycemia per protocol -- reviewed mx -counseled pt on DM management -discussed goals of treatment -carb controlled diet --patient requested changing diet so I adjusted this from 60 g of carbs per meal to 75 g per meal -FU with [facility] outpatient Total time 50 minutes which include review of records, counseling, management, and coordination of care as documented in note. * Jose A Hernandez MD - 02/24/2024 6:43 AM EDT Images from the original note were not included. Note- POST OPERATIVE DAY # 3 Catalina Capellan is a 18 y.o. who was seen & examined today. Her was complicated by: Patient Active Problem List Diagnosis Pre-existing type 1 diabetes affecting , antepartum Type 1 diabetes mellitus complicating in second trimester, antepartum Diabetes mellitus affecting in third trimester Preeclampsia, third trimester Today she is doing well without any chief complaint. Her lochia is light. She denies Headache, Chest Pain, Vision Changes, and Shortness of Breath. She is ambulating well. Flatus present. Bowel movement present. Voiding spontaneously . She is tolerating solids. Pain is controlled yes. Vital Signs: Vitals: 02/23/24 1157 02/23/24 2018 02/23/24 2333 02/24/24 0459 BP: 135/95 137/96 140/96 131/91 BP Location: Pulse: 97 100 96 92 Resp: 16 18 16 18 Temp: 37.2 C (99 F) 37.1 C (98.8 F) 36.8 C (98.3 F) 37.2 C (98.9 F) TempSrc: Temporal Temporal Temporal Temporal SpO2: 96% 96% 96% 96% Weight: Height: Urine Input & Output last 24hrs: Intake/Output Summary (Last 24 hours) at 02/24/2024 0643 Last data filed at 02/23/2024 2300 Gross per 24 hour Intake -- Output 3400 ml Net -3400 ml Physical Exam: GENERAL APPEARANCE: alert, well appearing, in no apparent distress ABDOMEN : benign non-tender, without masses or organomegaly palpable EXTREMITIES: no redness or tenderness in the calves or thighs, no edema NEUROLOGIC: alert, oriented, normal speech, no focal findings or movement disorder noted UTERUS : normal size, well involuted, firm, non-tender Steris are CDI,. There is old blood on left side of incision Labs: Lab Results Component Value Date WBC 10.6 02/23/2024 HGB 9.0 (L) 02/23/2024 HCT 29.4 (L) 02/23/2024 MCV 81.9 02/23/2024 PLT 111 (L) 02/23/2024 O Antibody Screen: No results found for: LABANTI No results found for: RUBELLAIGG LABOR DELIVERY ??? SCD's ONLY (labor through ambulation) SCD's PLUS Prophylactic Anticoagulation until discharge SCD's PLUS Prophylactic Anticoagulation for 6 weeks SCD's PLUS Therapeutic Anticoagulation for 6 weeks Vaginal Delivery [] BMI ? 40 kg/m2 Delivery All patients Vaginal Delivery [] BMI ? 40 kg/m2 AND [] Antepartum hospitalization ? 72 hours within the past month Delivery 1 Major Risk Factor: [] BMI ? 35 kg/m2 [] Low Risk Thrombophilia [] PPH+RBCs, IR, or operation [] Infection+Antibiotics [x] Antepartum hospitalization ? 72 hours within the past month [] PMH: Sickle Cell, SLE, Cardiac Dz, Active IBD, Active Cancer, Nephrotic Syndrome OR 2 Minor Risk Factors: [] Multiple gestation [] Age > 40 [] PPH ? 1,000cc [] (+)FMH of VTE [] Smoker [] Preeclampsia [] BMI ? 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), Prothrombin (homozygous), FVL+Prothrombin (heterozygous), Antithrombin III, APLS Assessment/Plan: Catalina Capellan is a 18 y.o. POD # 3 s/p PLTCS 2/2 PreEwSF Care - Doing well, VSS - Male - breast feeding - Contraception: Per Private Attending - Encourage ambulation and use of incentive spirometer - D/C gamez catheter and saline lock IV on POD #1 - Postop Hb 8.5 - VTE Prophylaxis: Prophylactic Dosing until Discharge, held for now PreEwSF gThromb - Met criteria with severe range blood pressures and lab abnormalities with elevated LDH and transaminases - Doing well this morning, all labs improving - BP is normotensive to mild range - S/p magnesium - Mild tenderness to deep palpation in the RUQ but asx at baseline - Continue procardia 30 XL nightly T1DM - Pump settings changed by Dr. Rodriguez antepartum with BGT targets of 140s - Endocrinology to see post - Appreciate endocrinology recs, BGT goal >80, Set basal rate to 0.3 if hypoglycemic - BGTs 100s-170s post Chronic Anemia - Hgb 9.7 on admission, s/p venofer - Hgb pre op 10.1, psot op 8.5 - QBL 556 - S/p venofer dose post Tooth Pain - S/p 500mg amoxicillin Disposition: Continue current care Based on my clinical assessment, this patient is safe for self discharge (does not need transport by wheelchair) if she so chooses. Provider's Name: MD Jose A Streeter MD 02/24/2024, 6:43 AM Associated attestation - Calista Pham MD - 02/24/2024 11:19 AM EDT Hospital Care (Independent): I independently saw and evaluated the patient. I agree with the findings and plan of care as documented in the resident's note. POD#3 from pLTCS doing well. Meeting milestones. PreEwSF - asx. BP mild range this morning 155/100,will increase procardia to 60mg XL daily. AST/ALT and platelets all improving. UOP adequate. RepeatBP a few more times today. T1DM managed by endocrine team. Baby boy will have circ outpatient. DC teaching done. PPBC at 6 week visit. DC pending BP control and endocrine recs. The total time spent on patient care today was 25 minutes. -10 minutes of the visit face to face patient care for counseling/coordination of care -15 minutes chart review and documentation * Roxie Liz, DO - 02/23/2024 8:58 AM EDT Department of Internal Medicine Division of Endocrinology, Diabetes, & Metabolism Endocrinology Note Patient Name: Catalina Capellan : 2005 AGE: 18 y.o. Room/Bed: [facility]/[address] Admission Date: 02/18/2024 Visit Date: 02/23/2024 Reason for Endocrine Consult: T1DM on insulin pump Provider/Team Requesting Consult: OB PCP: No primary care provider on file. Outpt Field Talent Qualification Specialist: Yes , Previously followed [facility] ASSESSMENT: T1DM on long term care phlebotomist insulin Insulin pump use Preeclampsia with severe features s/p C-sectio PLAN: - Patient is s/p and is doing well - I reviewed her current pump settings (documented in HPI). Her sugar is fairly controlled with current regimen. Blood sugars ranged from 80s early in the am to 120s later in the day. - I also reviewed her pre pump settings from chart review (also documented on HPI) - Will switch her to pre insulin pump settings today. Settings listed on HPI. - Please refer to HPI and orders for current insulin pump settings. - Previously followed [facility] and has an upcoming appointment with them. - Carb controlled diet - Hypoglycemia management per protocol ANTICIPATED ENDOCRINE HOME GOING RECOMMENDATIONS: Optimized for Discharge from Endocrine standpoint: Yes Home Going Endocrine Rx Recommendations-- Insulin pump with following settings: Basal rates: 12 am: 0.5 units/hr 6 am: 0.5 units/hr 8 pm: 0.5 units/hr ICR 12A: 1:14 6A: 1:10 11A: 1:10 4P: 1:10 8P: 1:10 Correction Factor: 50 Outpt Follow Up-- with [facility]. Patient to call and make an appointment SUBJECTIVE/HPI: CHIEF COMPLAINT: Chief Complaint Patient presents with Hypertension Patient is a 18 y.o F with PMHx significant for T1DM on insulin pump, anxiety/depression, Vit D deficiency who was admitted on 02/18/24 for preeclampsia with severe features and underwent on 02/21/24. Type of DM: Type 1 Onset of DM: 04/20/23 Home DM Medication Regimen: Humalog via Insulin pump, started in 05/2023 DM control (last A1c/glucose data): 6.1 MFM managed her T1DM on insulin pump - omnipod Pre- insulin pump settings are Basal rates: 12 am: 0.5 units/hr 6 am: 0.5 units/hr 8 pm: 0.5 units/hr ICR 12A: 1:14 6A: 1:10 11A: 1:10 4P: 1:10 8P: 1:10 No acute events overnight. Unable to completely empty the bladder and was straight cathed this am. Vitals signs Stable. Hyponatremia improving and at 134, normal renal function, persistent transaminitis. Leukocytosis resolved. Blood glucose 79-150. 79 this am. No other compalints Glucose Date/Time Value Ref Range Status 02/22/2024 12:43 PM 104 (H) 70 - 100 mg/dL Final 02/22/2024 06:54 AM 171 (H) 70 - 100 mg/dL Final 02/22/2024 12:16 AM 137 (H) 70 - 100 mg/dL Final 02/21/2024 09:04 PM 85 70 - 100 mg/dL Final 02/21/2024 04:56 PM 71 70 - 100 mg/dL Final 02/21/2024 12:04 PM 87 70 - 100 mg/dL Final Review of Systems Constitutional: Negative for activity change, chills, fatigue, fever and unexpected weight change. Respiratory: Negative for cough, chest tightness and shortness of breath. Cardiovascular: Negative for chest pain. Gastrointestinal: Positive for abdominal pain. Negative for nausea and vomiting. Genitourinary: Negative for dysuria, frequency and urgency. Skin: Negative for rash. Neurological: Negative for dizziness and light-headedness. Psychiatric/Behavioral: Negative for agitation. ROS negative except for those mentioned in HPI. OBJECTIVE: Vitals: 02/22/24 2320 02/23/24 0258 02/23/24 0727 02/23/24 0758 BP: 124/83 135/85 145/107 138/96 BP Location: Right arm Right arm Patient Position: Sitting Pulse: 95 89 101 84 Resp: 18 18 18 Temp: 36.7 C (98.1 F) 36.7 C (98 F) 36.6 C (97.8 F) TempSrc: Temporal Temporal Temporal SpO2: 96% 98% 95% 95% Weight: Height: Physical Exam Constitutional: General: She is not in acute distress. Appearance: Normal appearance. She is not ill-appearing. HENT: Mouth/Throat: Mouth: Mucous membranes are moist. Cardiovascular: Rate and Rhythm: Normal rate and regular rhythm. Pulses: Normal pulses. Heart sounds: Normal heart sounds. No murmur heard. No gallop. Pulmonary: Effort: Pulmonary effort is normal. No respiratory distress. Breath sounds: Normal breath sounds. No wheezing or rales. Abdominal: General: Abdomen is flat. Bowel sounds are normal. There is no distension. Palpations: Abdomen is soft. Tenderness: There is no abdominal tenderness. There is no guarding. Musculoskeletal: Right lower leg: No edema. Left lower leg: No edema. Skin: General: Skin is warm and dry. Neurological: General: No focal deficit present. Mental Status: She is alert. Psychiatric: Mood and Affect: Mood normal. 24 hour intake/output: Intake/Output Summary (Last 24 hours) at 02/23/2024 0858 Last data filed at 02/23/2024 0803 Gross per 24 hour Intake -- Output 7050 ml Net -7050 ml Diet: Adult diet Regular; 4 carb choices (60 gm/meal) Medications (as per EMR): HomeMeds: Current Outpatient Medications Medication Instructions amoxicillin (Amoxil) 250 MG capsule 1 capsule, Oral, 3 times daily aspirin 81 mg, Oral, Daily cholecalciferol (Vitamin D3) 25 MCG (1000 UT) tablet Oral, Daily insulin lispro (HumaLOG) 100 UNIT/ML patient supplied pump SubCUTAneous, Continuous Vit-Fe Fumarate-FA ( 1+1 PO) 1 tablet, Oral, Daily Scheduled Meds:amoxicillin, 500 mg, Oral, 3 times per day [Held by provider] enoxaparin, 40 mg, SubCUTAneous, Daily ferrous sulfate, 325 mg, Oral, BID WC ibuprofen, 600 mg, Oral, q6h iron sucrose, 200 mg, IntraVENous, q24h measles, mumps and rubella, 0.5 mL, SubCUTAneous, Prior to discharge NIFEdipine XL, 30 mg, Oral, Nightly vitamin, 1 tablet, Oral, Daily sodium chloride 0.9%, 5-40 mL, IntraVENous, 2 times per day Tdap-Dtap, 0.5 mL, IntraMUSCular, Prior to discharge Continuous Infusions:insulin lispro, oxytocin, 125 elvin-units/min PRN Meds:PRN medications: acetaminophen, calcium gluconate, dextrose, dextrose, diphenhydrAMINE, docusate sodium, famotidine, glucagon (rDNA), glucose, HYDROmorphone OR HYDROmorphone, lanolin, naloxone, ondansetron ODT OR ondansetron, oxyCODONE OR oxyCODONE, oxytocin, simethicone, sodium chloride, sodium chloride 0.9% Diagnostic Workup: I reviewed pertinent Laboratory results, Radiographic results, and Other Clinical Notes at the timeof today's encounter. Labs: No components found for: LABA1C No components found for: EAG Lab Results Component Value Date NA 134 (L) 02/23/2024 K 3.7 02/23/2024 CL 108 (H) 02/23/2024 CO2 21 (L) 02/23/2024 BUN 6 (L) 02/23/2024 CREATININE 0.46 (L) 02/23/2024 GLUCOSE 79 02/23/2024 CALCIUM 7.1 (L) 02/23/2024 No results found for: CHLPL, CHOL No results found for: TRIG No results found for: HDL No results found for: LDLCALC No results found for: VLDL No results found for: CHOLHDLRATIO No results found for: [id number] Lab Results Component Value Date TSH 0.947 10/30/2023 THYROIDAB <3.0 09/01/2023 Radiology reportsas per the Radiologist Radiology: ECG 12 lead Result Date: 02/21/2024 Sinus rhythm Nonspecific T abnormalities, anterior leads Electronically Signed On 02-21-2024 18:06:36 EDT by Amanda Gar POCT glucose meter Result Date: 02/19/2024 Performed by: [facility], [address] [place] [address], [facility] [address] CLIA ID: [id number] POCT glucose meter Result Date: 02/19/2024 Performed by: [facility], [address] [place] [address] [place] [address] CLIA ID: [id number] POCT glucose meter Result Date: 02/19/2024 Performed by: [facility], [address] [place] [address] [place] [address] CLIA ID: [id number] POCT glucose meter Result Date: 02/19/2024 Performed by: [facility], [address] [place] [address], [facility] [address] CLIA ID: [id number] POCT glucose meter Result Date: 02/19/2024 Performed by: [facility], [address] [place] [address] [place] [address] CLIA ID: [id number] POCT glucose meter Result Date: 02/19/2024 Performed by: [facility], [address] [place] [address] [place] [address] CLIA ID: [id number] POCT glucose meter Result Date: 02/19/2024 Performed by: [facility], [address] [place], [place] [address] [place] [address] CLIA ID: [id number] POCT glucose meter Result Date: 02/18/2024 Performed by: [facility], [address] [place] [address] [place] [address] CLIA ID: [id number] POCT glucose meter Result Date: 02/18/2024 Performed by: [facility], [address] [place] [address] [place] [address] CLIA ID: [id number] History/Other: Past Medical History: Past Medical History: Diagnosis Date Anemia Anxiety Depression Diabetes mellitus affecting Kidney stone Orthostatic intolerance POTS (postural orthostatic tachycardia syndrome) Past Surgical History: Past Surgical History: Procedure Laterality Date KIDNEY STONE SURGERY no incision Allergy(ies): No Known Allergies Family History: No family history on file. Social History: Social History Tobacco Use Smoking status: Never Smokeless tobacco: Never Vaping Use Vaping status: Never Used Substance Use Topics Alcohol use: Never Drug use: Never Portions of the information within this encounter were entered using an electronic dictation system. Best attempts were made to edit/proofread the information prior to note completion. Despite the review of information, some errors may remain. If there are questions related to the information contained within the note please contact the signing physician directly. I spent 35 minutes with the pt which involved coordination of care, medical evaluation, review of records, and/or counseling of the pt regarding his/her condition/disease state/prognosis on the date of this note. Associated attestation - Nely Brown MD - 02/24/2024 2:18 AM EDT I performed a history and physical examination of the patient. I have reviewed the patient's chart including pertinent history, medications, labs, radiology, and other reports. I reviewed the resident/TANIA's note, agree with the documented findings and plan of care (with modifications noted if any),and discussed the management plan. Pt seen on 02/23/24. Pt seen at bedside. She has been doing well. Eating well. . Reviewed pump data and BG data. Most BG 80-120s. SO at bedside. Adult diet Regular; 4 carb choices (60 gm/meal) Estimated Creatinine Clearance: 125 mL/min (A) (by C-G formula based on SCr of 0.46 mg/dL (L)). BP 140/96 Pulse 96 Temp 36.8 C (98.3 F) (Temporal) Resp 16 Ht 5' 6 (1.676 m) Wt 183 lb (83 kg) SpO2 96% Yes Comment: Both breast and bottle per patient BMI 29.54 kg/m awake, alert, not in distress, RRR, +BLE edema, no focal deficits, pump and sensor intact, normal mood and affect. Dx: Pre-existing type 1 diabetes mellitus, Insulin pump use Preeclampsia with severe features status post Plan: -Will continue Omnipod 5 pump/Dexcom G6 CGM with Humalog -Will adjust ICR to 12am 14 and 6am 10 which were her pre- settings -change ISF to 50 -Advised patient to remain on automode -PRN fingerstick glucose checks if sensor glucose readings are above 300 or less than 70 -Advised RN to document sensor glucose readings on patient's chart (before every meal and at bedtime) -management of hypoglycemia per protocol -- reviewed mx -counseled pt on DM management -discussed goals of treatment -carb controlled diet -FU with [facility] outpatient Total time 35 minutes which include review of records, counseling, management, and coordination of care as documented in note. * Jolene Estevez DO - 02/23/2024 6:24 AM EDT Images from the original note were not included. POST OPERATIVE DAY # 2 Catalina Capellan is a 18 y.o. who was seen & examined today. Her was complicated by: Patient Active Problem List Diagnosis Pre-existing type 1 diabetes affecting , antepartum Type 1 diabetes mellitus complicating in second trimester, antepartum Diabetes mellitus affecting in third trimester Preeclampsia, third trimester Today she is doing well without any chief complaint. Her lochia is light. She denies chest pain, shortness of breath, headache, and lightheadedness. She is ambulating. Flatus present. Bowel movement absent. She is voiding, however this AM per RN note as patient felt she hadn't voided completely, bladder scan was 282cc and she was straight cathed . She is tolerating solids. Pain is controlled yes.She denies RUQ pain this AM Vital Signs: Vitals: 02/22/24 1636 02/22/24 1943 02/22/24 2320 02/23/24 0258 BP: 124/80 122/79 124/83 135/85 BP Location: Right arm Right arm Right arm Patient Position: Sitting Pulse: 93 84 95 89 Resp: 16 18 18 18 Temp: 36.4 C (97.6 F) 36.6 C (97.9 F) 36.7 C (98.1 F) 36.7 C (98 F) TempSrc: Temporal Temporal Temporal Temporal SpO2: 95% 95% 96% 98% Weight: Height: Urine Input & Output last 24hrs: Intake/Output Summary (Last 24 hours) at 02/23/2024 0624 Last data filed at 02/23/2024 0230 Gross per 24 hour Intake -- Output 6750 ml Net -6750 ml Physical Exam: GENERAL APPEARANCE: alert, well appearing, in no apparent distress, oriented to person, place and time LUNGS: symmetric effort bilaterally, no increased work of breathing ABDOMEN : benign non-tender, without masses or organomegaly palpable and incision dressing in place EXTREMITIES: no redness or tenderness in the calves or thighs, edema nonpitting and equal bilaterally NEUROLOGIC: alert, oriented, normal speech, no focal findings or movement disorder noted Labs: Lab Results Component Value Date WBC 14.4 (H) 02/22/2024 HGB 8.5 (L) 02/22/2024 HCT 27.8 (L) 02/22/2024 MCV 80.3 02/22/2024 PLT 85 (L) 02/22/2024 O Antibody Screen: No results found for: LABANTI No results found for: RUBELLAIGG LABOR DELIVERY ??? SCD's ONLY (labor through ambulation) SCD's PLUS Prophylactic Anticoagulation until discharge SCD's PLUS Prophylactic Anticoagulation for 6 weeks SCD's PLUS Therapeutic Anticoagulation for 6 weeks Vaginal Delivery [] BMI ? 40 kg/m2 Delivery All patients Vaginal Delivery [] BMI ? 40 kg/m2 AND [] Antepartum hospitalization ? 72 hours within the past month Delivery 1 Major Risk Factor: [] BMI ? 35 kg/m2 [] Low Risk Thrombophilia [] PPH+RBCs, IR, or operation [] Infection+Antibiotics [x] Antepartum hospitalization ? 72 hours within the past month [] PMH: Sickle Cell, SLE, Cardiac Dz, Active IBD, Active Cancer, Nephrotic Syndrome OR 2 Minor Risk Factors: [] Multiple gestation [] Age > 40 [] PPH ? 1,000cc [] (+)FMH of VTE [] Smoker [x] Preeclampsia [] BMI ? 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), Prothrombin (homozygous), FVL+Prothrombin (heterozygous), Antithrombin III, APLS Assessment/Plan: Catalina Capellan is a 18 y.o. POD # 2 s/p PLTCS 2/2 PreEwSF Care - Doing well, VSS - male - breast feeding - Contraception: Per attending - Encourage ambulation and use of incentive spirometer - D/C gamez catheter and saline lock IV on POD #1 - Postop Hb 8.5 - VTE Prophylaxis: Prophylactic Dosing until Discharge PreEwSF gThrombocytopenia - met criteria with severe range blood pressures and also transaminases elevated 2x ULN with an elevated LDH and plts of 111 - The patient was admitted to for PreEwoSF and T1DM optimization, during IOL her labs worsened and her RUQ pain worsened so decision for PCD - Doing well this AM, RUQ pain is gone per patient, her urine output is adequate, did require straight cath overnight - Plt yesterday 85, hold Lovenox until >100, LFTs down trending yesterday as well - Repeat CBC/CMP/LDH pending this AM - Continue procardia 30 XL nightly - s/p magnesium sulfate infusion for maternal seizure ppx T1DM - Pump settings changed by Dr. Rodriguez on 02/20 to target BGTs of 140 after delivery - Endocrinology managing post - Continue current settings, appreciate endocrinology recommendations Chronic Anemia - Patient with a hgb of 9.7 on admission s/p venofer - Last hgb 10.1, post op 8.5 - QBL 556 - Will order IV Venofer Tooth Pain - Had a tooth extraction and is on amoxicillin 500mg q8 until 02/22 Disposition: Continue current care Based on my clinical assessment, this patient is safe for self discharge (does not need transport by wheelchair) if she so chooses. Provider's Name: MD Opal Streeter, DO 02/23/2024, 6:24 AM ATTENDING NOTE: I personally saw and evaluated the patient. I reviewed the care provided by the Resident including the patient's medical history, physical exam findings, diagnosis and treatment plan. I also agree with the documentation from the Resident unless otherwise indicated: Pt is doing well. Requiring opioids to help with better pain control. BP reviewed. Continue to monitor. May need to add Procardia XL 30 mg for AM or increase PM dose. PreE labs reviewed. Unremarkable. T1DM - endocrine consulted. Boy circ - aborted d/t penile torsion confirmed by peds. TIME SPENT ON PATIENT ENCOUNTER TODAY: Chart review and preparation: 10 minutes. Face to face: 10 minutes. Documentation and care coordination: 5 minutes. --> TOTAL= 25 MINUTES * Jose A Hernandez MD - 02/22/2024 5:51 AM EDT Images from the original note were not included. Note- POST OPERATIVE DAY # 1 Catalina Capellan is a 18 y.o. who was seen & examined today. Her was complicated by: Patient Active Problem List Diagnosis Pre-existing type 1 diabetes affecting , antepartum Type 1 diabetes mellitus complicating in second trimester, antepartum Diabetes mellitus affecting in third trimester Preeclampsia, third trimester Today she is doing well without any chief complaint. She mentions that her RUQ pain has decreased significantly since delivery. Her lochia is light. She denies Headache, Chest Pain, Vision Changes, and Shortness of Breath. She is ambulating well. Flatus absent. Bowel movement absent. Gamez catheterremains in place . She is tolerating solids. Pain is controlled. Vital Signs: Vitals: 02/22/24 0110 02/22/24 0210 02/22/24 0256 02/22/24 0350 BP: 148/88 146/97 128/84 136/85 BP Location: Right arm Patient Position: Lying Pulse: 99 96 95 Resp: 25 17 18 Temp: 36.8 C (98.3 F) TempSrc: Temporal SpO2: 97% 98% 95% Weight: Height: Urine Input & Output last 24hrs: Intake/Output Summary (Last 24 hours) at 02/22/2024 0551 Last data filed at 02/22/2024 0250 Gross per 24 hour Intake 1610 ml Output 1856 ml Net -246 ml Physical Exam: GENERAL APPEARANCE: alert, well appearing, in no apparent distress ABDOMEN : There is tenderness to deep palpation in the upper right quadrant and flank, but not rebound tenderness or rigidity EXTREMITIES: no redness or tenderness in the calves or thighs, no edema NEUROLOGIC: alert, oriented, normal speech, no focal findings or movement disorder noted UTERUS : normal size, well involuted, firm, non-tender ABD pad covers incision and there is small amount of dried blood on the inferior aspect of the dressing Labs: Lab Results Component Value Date WBC 13.8 (H) 02/21/2024 HGB 10.1 (L) 02/21/2024 HCT 33.3 (L) 02/21/2024 MCV 81.0 02/21/2024 PLT 107 (L) 02/21/2024 O Antibody Screen: No results found for: LABANTI No results found for: RUBELLAIGG LABOR DELIVERY ??? SCD's ONLY (labor through ambulation) SCD's PLUS Prophylactic Anticoagulation until discharge SCD's PLUS Prophylactic Anticoagulation for 6 weeks SCD's PLUS Therapeutic Anticoagulation for 6 weeks Vaginal Delivery [] BMI ? 40 kg/m2 Delivery All patients Vaginal Delivery [] BMI ? 40 kg/m2 AND [] Antepartum hospitalization ? 72 hours within the past month Delivery 1 Major Risk Factor: [] BMI ? 35 kg/m2 [] Low Risk Thrombophilia [] PPH+RBCs, IR, or operation [] Infection+Antibiotics [x] Antepartum hospitalization ? 72 hours within the past month [] PMH: Sickle Cell, SLE, Cardiac Dz, Active IBD, Active Cancer, Nephrotic Syndrome OR 2 Minor Risk Factors: [] Multiple gestation [] Age > 40 [] PPH ? 1,000cc [] (+)FMH of VTE [] Smoker [x] Preeclampsia [] BMI ? 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), Prothrombin (homozygous), FVL+Prothrombin (heterozygous), Antithrombin III, APLS Assessment/Plan: Catalina Capellan is a 18 y.o. POD # 1 s/p PLTCS 2/2 PreEwSF Care - Doing well, VSS - Male - breast feeding - Contraception: Per Private Attending - Encourage ambulation and use of incentive spirometer - D/C gamez catheter and saline lock IV on POD #1 - Postop Hb pending - VTE Prophylaxis: Prophylactic Dosing until Discharge PreEwSF gThrombocytopenia - The patient met criteria with severe range blood pressures and also transaminases elevated 2x ULNwith an elevated LDH and plts of 111. - The patient was admitted to for PreEwoSF and T1DM optimization, the patient then moved over for IOL but was found to have worsening lab values, RUQ pain, and severe range pressures, and the patient was counseled on and was in agreement with proceeding with delivery. - BP mild range to normotensive - Asx, although does have RUQ pain to deep palpation - Will discuss repeating labs this am wit [facility] attending - Continue procardia 30 XL nightly - Continue magnesium sulfate infusion for 24 hours for maternal seizure ppx T1DM - Pump settings changed by Dr. Rodriguez on 02/20 to target BGTs of 140 after delivery - Endocrinology managing post - BGT 137 overnight - CGM reading higher values on rounds, in the 180s, but the patient says that they are going down. - Continue current settings, appreciate endocrinology recommendations Chronic Anemia - Patient with a hgb of 9.7 on admission s/p venofer - Last hgb 10.1, post op penidng - QBL 556 Tooth Pain - Had a tooth extraction and is on amoxicillin 500mg q8 until 02/22 Hx Kidney stones - S/p lithotripsy Disposition: Continue current care Provider's Name: MD Jose A Streeter MD 02/22/2024, 5:51 AM Associated attestation - Calista Pham MD - 02/22/2024 2:51 PM EDT Hospital Care (Independent): I independently saw and evaluated the patient. I agree with the findings and plan of care as documented in the resident's note. POD#1 form pLTCS for worsening preEwSF. Doing ok this morning. Catheter still in. Hungry for breakfast. preEwSF: on mag until tonight. Plt down to 85k, repeat tmrrw morning. Will start lovenox tomorrow if plts >100k. AST/ALT slight improvement. CR normal. UOP adequate. BP normal on Procardia 30mg XL daily. T1DM: endo consulted. Pumping due to issues with latching. Baby boy in room with mom. Desires circ, will hole off until tomorrow due to BS issues. Plan DC home POD#3. The total time spent on patient care today was 25 minutes. -10 minutes of the visit face to face patient care for counseling/coordination of care -15 minutes chart review and documentation at 1045 * Hugo Rodriguez MD - 02/21/2024 8:59 PM EDT Images from the original note were not included. MFM I was notified by Dr. Odonnell about concerns about continued induction and worsening RUQP, patient has reported since starting magnesium that she is having now worsening pain in the RUQP and epigastric pain. She is also having palpable contractions every 1 minute as I am at the bedside today. No vaginal bleeding and Cat 1 tracing is noted 02/21/2024 7:02 PM 02/21/2024 7:05 PM 02/21/2024 7:15 PM 02/21/2024 7:16 PM 02/21/2024 7:30 PM 02/21/2024 7:45 PM 02/21/2024 8:15 PM Vitals Systolic 154 152 157 147 164 Diastolic 106 106 107 104 111 Heart Rate 98 121 107 109 119 119 123 Temp 36.6 C (97.9 F) 36.9 C (98.5 F) 36.9 C (98.4 F) 36.9 C (98.5 F) 36.8 C (98.3 F) Resp 18 18 18 18 20 SpO2 100 % 100 % 99 % 100 % 99 % 100 % Treated with IV labetalol while I am at the bedside and requesting pain medications for contractionpain Abd soft in between contractions and states pain in epigastric region is lessened in between contractions SVE 1.5/thick high presenting part noted not engaged Reviewed CGM and 102 on CGM getting BGT now Labs reviewed Imp 36 6/7 weeks with increasing LFT and lower platelets not less than 100, but increasing LDH when shewas brought over to start her induction process. Very stable until this evenings acute worsening pain. Very unfavorable cervix discussed and concerns for long induction process in the face of evolving HELLP discussed with family, noted to have such a more acute worsening since labs have been known.I came to the bedside this evening to discuss the plan with the family and with the team. I talked about an ongoing IOL vs PCD and we talked about the R/B/A of as well continued long induction process in the face of maternal worsening status especially given her pain and her more elevated B P. Discussed with family and the patient the R/B/A of primary including but not limited torisk of injury to surrounding structures, risk of bleeding, hemorrhage requiring transfusion, risk for injury to surrounding structures including bowel, bladder and baby. Risk for scarring and VTE aswell a low risk for hysterectomy discussed. There is also a risk with anesthesia, please see their counseling note as well. We talked about with her unfavorable cervix with high presenting part a higher risk for unstable lie given polyhydramnios and the potential of an emergency procedure was also addressed today and no guarantee she would not need a if they proceed with IOL. Questions answered T1DM on omnipod targets changed for Induction not in active labor will change targets to 140 concerns about hypoglycemia addressed and would have D5 in maintenance of less than 90 with transition back to IVF without D5 after delivery if stable and able to drink and eat. Will have endocrine follow her with adjustments of her omnipod Plan The family with shared decision and discussion is electing for PCD R/B/A discussed and Dr. Odonnell will perform this surgery Discussed the need for D5 vs D50 in fluids with anesthesia in OR if BGT < 80 with anesthesia if needed vs suspending the pump and recovery with targets to be changed to 140 will defer further management to endocrine tomorrow and hope she can stay in Automode post surgery unless significant lows plan for post surgery adjustments: Will change corrections to 35 Will change ICR to 1:6 except for midnight which is 1:8 I changed her to a temp basal now for 5% decrease for the next 2 hours until she gets to recovery if she goes low and has continued lows can also temp suspend pump as well and new pod to be placed when in RR when BGT > 150 if needed Team aware of plan Otherwise will continue automode now OB team to sign consent with patient Start BP medications in recovery as well plan for procardia XL 30 mg daily The total patient time of the visit was 40 minutes, of which was greater than 50% of the time was spent counseling and coordinating care. * Jose A Hernandez MD - 02/21/2024 8:06 AM EDT Paged by RN that the patient was again feeling contractions. SVE 1cm dilated. FHT Cat I with moderate variability and accelerations, although tracing maternal durign SVE. Will give another fluid bolus at this time. Plan is for IOL tomorrow at 37w0d. CCM. Jose A Hernandez MD 02/21/2024 8:07 AM * Jose A Hernandez MD - 02/21/2024 6:28 AM EDT Images from the original note were not included. Maternal Medicine Service Resident Progress Note 02/21/2024 6:28 AM 02/18/2024 Hospital Day: 4 Catalina Capellan, 18 y.o. 36w6d Patient has been seen and examined. She is doing well this am and denies any complaints. She has had no further contraction pain and was able to get some rest. Positive movement Negative vaginal bleeding Negative LOF Negative Contractions Vitals: 02/20/24 2214 02/20/24 2355 02/21/24 0043 02/21/24 0347 BP: 141/93 152/104 155/100 148/87 Pulse: 84 83 83 Resp: 18 18 16 Temp: 36.9 C (98.4 F) 36.8 C (98.2 F) 36.9 C (98.4 F) TempSrc: Oral Oral Oral SpO2: 99% 98% 100% Weight: Height: FHT: 120, moderate variability Accels: present Decels: absent Contractions: Rare Physical Exam: Gen: NAD HEENT: Normocephalic, Atraumatic, EOMI, MMM Resp: No increased work of breathing Card: Normal rate Ext: No LE edema, no calf tenderness or swelling Medications: Current Facility-Administered Medications Medication Dose Route Frequency Provider Last Rate Last Admin acetaminophen (Tylenol) tablet 650 mg 650 mg Oral q4h PRN Dahlia Bullard DO 650 mg at 02/19/24 1436 amoxicillin (Amoxil) capsule 500 mg 500 mg Oral TID Emy Watkins MD 500 mg at 02/20/24 2100 aspirin EC tablet 81 mg 81 mg Oral Daily Dahlia Bullard, DO 81 mg at 02/20/24 0953 dextrose 5 % infusion 100 mL/hr IntraVENous PRN Dahlia Bullard DO dextrose 50 % solution 12.5 g 12.5 g IntraVENous PRN Dahlia Bullard DO ferrous sulfate tablet 325 mg 325 mg Oral Daily with breakfast Dahlia Bullard DO 325 mg at 02/20/24 0952 glucagon (human recombinant) injection 1 mg 1 mg IntraMUSCular PRN Dahlia Bullard DO glucose oral gel 15 g 15 g Oral PRN Dahlia Bullard DO insulin lispro (HumaLOG) patient supplied pump SubCUTAneous Continuous Dahlia Bullard DO 30 Units at 02/18/24 1852 iron sucrose (Venofer) 200 mg in sodium chloride 0.9 % 100 mL IVPB 200 mg IntraVENous q24h Francia Khalil DO Stopped at 02/20/24 1551 ondansetron ODT (Zofran-ODT) disintegrating tablet 4 mg 4 mg Oral q8h PRN Dahlia Bullard DO Or ondansetron (Zofran) injection 4 mg 4 mg IntraVENous q6h PRN Dahlia Bullard, DO 4 mg at 02/20/24 1441 vitamin tablet 1 tablet Oral Daily Dahlia Bullard DO 1 tablet at 02/20/24 0953 sodium chloride 0.9 % infusion 5-250 mL/hr IntraVENous PRN Dahlia Bullard DO sodium chloride 0.9% (NS) flush 10 mL 10 mL IntraVENous 2 times per day Dahlia Bullard, 10 mL at 02/20/242099 sodium chloride 0.9% (NS) flush 10 mL 10 mL IntraVENous PRN Dahlia Bullard DO Assessment/Plan: Catalina Capellan is a 18 y.o. female 36w6d PreEwoSF - Met criteria prior to admission with mild range BP and elevated UPC - The patient has elevated transaminases on admission, although not 2x ULN, CBC wnl, UPC 0.19 - Admitted for trending of labs - Repeat labs revealed stable transaminases, creatinine, and platelets - Bps normotensive to mild range overnight - Will be for IOL at 37w0d T1DM - Managed by cMFM - Omnipod and dexcom G6 in place - A1c 6.1 on 10/29 - BGTs in the 50s-60s overnight, however she is asymptomatic - Continue current pump settings, will discuss with attending if sugars remain low gThrombo - Plts last 135, up from 132, al;though down from 150 on admission Polyhydramnios - ALLI 30 on 02/17 Chronic Anemia - Hgb 9.6 last - On PO iron POTS - Asx today Hx Kideny Stone - S/p lithotripsy and stent in 07/2022 Tooth Pain - On amox 500mg TID IUP @ 36w6d - Dating by 1st trimester US - Cephalic on 02/19 - Monitorinhr TID - Diet:Gestational CCD - BMZ Deferred Further plan pending d/w attending. Jose A Hernandez MD 02/21/2024, 6:28 AM Associated attestation - Hugo Rodriguez MD - 02/21/2024 1:45 PM EDT I independently saw and evaluated the patient. I agree with the findings and plan of care as documented in the resident's note. No headache and discussed plan with starting process today to be delivered given her diabetes and her pre-eclampsia diagnosis no headache today 18 at 36 6/7 GA with the following: PreEwoSF stable and doing well with ALT/AST stable with slightly decreased platelets on last draw which were stable no headache or neuro symptoms start IOL 36 6/7 weeks given her T1DM/preeclampsia with no severe features and concerns for worsening outcome. Questions answered T1DM ongoing pump and dexcom reviewed no changes in management some lows encouraged eating not eating full meal and I changed her target from 110 to 120 after delivery plan on target change to 140. Continued automode, may have to change to manual but feel as though she is doing really well currently with her automode function. Endocrine to manage . She has supplies for her pod change Thrombocytopenia decreasing still > 100K, cannot exclude that this is not related to pre-eclampsia and will recheck prior to IOL with coagulation profile Polyhydramnios on 02/18/24 ALLI of 30 higher risk for unstable lie and would not AROM until 6-7 with head well engaged. Previously LGA but not inhibiting our ability to have Chronic anemia 9.7 s/p of IV venofer History of kidney stones s/p lithotripsy Tooth pain recent extraction on ABX Plan for start of Iol 36 6/7 weeks with delivery planned for 37 0/7 weeks will make plans for insulin pump discussed and with latent labor needs BGT every 4 hours and correlate with CGM, hourly with 5cm and correlate with CGM. After delivery if vaginal check every 2 hours if less than 80 and will change target to 140 with plans for endocrine to review in the . Higher risk for hypoglycemia with especially with . High risk for the to go to NICU discussed and will have COMMUNICATIONS PROJECT MANAGER come to talk with them as well Last growth scan in our office from 02/08/24 1. Single, living IUP at 35w 0d by clinical TEJ. 2. Overall growth is normal, however the AC measurement shows accelerated growth with AC >99%. EFW is 3197 g (85%). 3. Amnioic fluid volume is mildly increased, with ALLI 27.1 cm. Last ALLI of 30cm on the day of admission cephalic I spent 30 minutes in the visit today on the floor reviewing the chart, discussing the case with the residency staff and nursing Hugo Rodriguez MD * Damaris Hanson DO - 02/20/2024 11:43 PM EDT Images from the original note were not included. Notified by RN of increasing pelvic pressure. She notes she started having contractions around 0. Denies vaginal bleeding or LOF, noted good movement. VTX on BSUS. SVE 0-1cm, unchanged from prior exam. T Cat I. Irregular contractions on toco. Qejdg004 ml IVF bolus. Also endorsed some chest pain that occurred randomly, EKG ordered and sinus rhythm, chest pain spontaneously resolved. VSS, Bp NT, HR 90, 100% on RA. Notified again by RN of contractions at 2330. At bedside to assess patient, notes no LOF or VB. States continued CTX. Declined SVE at this time. Offered tylenol and vistaril. Discussed importance of notifying of change in pain or contractions. Will continue to monitor. Notified by RN of worsening CTX. SVE /-3. T Cat I. Changed to CEFM. Dr. Rodriguez notified. Will continue to monitor. Flexeril offered for pain medication. Damaris Hanson DO 02/21/2024 12:45 AM Patient reporting continued CTX, requesting SVE at this time, continues to denies VB of LOF, notes increasing pelvic pressure, notes her CTX temporarily stopped, but returned 15 minutes ago. SVE unchanged at this time, has received tylenol, vistaril and flexeril. T Cat I. Encouraged positional changes, offered heading pad, birthing ball, peanut ball. Patient declined at this time. Will continueto monitor closely. * Valery Bermudez - 02/20/2024 2:19 PM EDT Nutrition rescreen completed. Chart reviewed. Patient to be monitored and followed by the diet substance abuse technician. Dietitian available upon request. Valery Mitan, DT * Mary Lou Mendez MD - 02/20/2024 5:43 AM EDT Images from the original note were not included. Maternal Medicine Service Resident Progress Note 02/20/2024 5:43 AM 02/18/2024 Hospital Day: 3 Catalina Capellan, 18 y.o. 36w5d Went to bedside to see patient, patient sleeping comfortably. Reporting some Ctx overnight, checkedby Dr. Agustin and SVE 0-1cm. Vitals: 02/19/24 1616 02/19/24 1958 02/19/24 2346 02/20/24 0430 BP: 138/94 147/102 144/98 154/101 BP Location: Left arm Patient Position: Sitting Pulse: 90 107 84 86 Resp: 16 16 16 18 Temp: 36.6 C (97.8 F) 37.1 C (98.8 F) 37 C (98.6 F) 36.7 C (98 F) TempSrc: Temporal Temporal Temporal Oral SpO2: 99% 98% 99% 99% Weight: Height: FHT: 120, moderate variability Accels: present Decels: absent Contractions: irregular, every 3-7 minutes Physical Exam: Deferred as patient is resting comfortably Medications: Current Facility-Administered Medications Medication Dose Route Frequency Provider Last Rate Last Admin acetaminophen (Tylenol) tablet 650 mg 650 mg Oral q4h PRN Dahlia Bullard DO 650 mg at 02/19/24 1436 amoxicillin (Amoxil) capsule 500 mg 500 mg Oral TID Emy Watkins MD 500 mg at 02/19/24 2100 aspirin EC tablet 81 mg 81 mg Oral Daily Dahlia Bullard DO 81 mg at 02/19/24 0813 dextrose 5 % infusion 100 mL/hr IntraVENous PRN Dahlia Bullard DO dextrose 50 % solution 12.5 g 12.5 g IntraVENous PRN Dahlia Bullard DO ferrous sulfate tablet 325 mg 325 mg Oral Daily with breakfast Dahlia Bullard DO 325 mg at 02/19/24 0813 glucagon (human recombinant) injection 1 mg 1 mg IntraMUSCular PRN Dahlia Bullard DO glucose oral gel 15 g 15 g Oral PRN Dahlia Bullard DO insulin lispro (HumaLOG) patient supplied pump SubCUTAneous Continuous Dahlia Bullard DO 30 Units at 02/18/24 1852 iron sucrose (Venofer) 200 mg in sodium chloride 0.9 % 100 mL IVPB 200 mg IntraVENous q24h Francia Khalil DO Stopped at 02/19/24 1620 ondansetron ODT (Zofran-ODT) disintegrating tablet 4 mg 4 mg Oral q8h PRN Dahlia Bullard DO Or ondansetron (Zofran) injection 4 mg 4 mg IntraVENous q6h PRN Dahlia Bullard DO vitamin tablet 1 tablet Oral Daily Dahlia Bullard DO 1 tablet at 02/19/24 0813 sodium chloride 0.9 % infusion 5-250 mL/hr IntraVENous PRN Dahlia Bullard DO sodium chloride 0.9% (NS) flush 10 mL 10 mL IntraVENous 2 times per day Dahlia Bullard DO10 mL at 02/19/24 2100 sodium chloride 0.9% (NS) flush 10 mL 10 mL IntraVENous PRN Dahlia Bullard DO Assessment/Plan: Catalina Capellan is a 18 y.o. female 36w5d PreEwoSF - Met criteria from prior to admission with mild range BP and elevated UPC of 0.34 during last PNU admission 01/06-01/08 - PreE labs on admission, CBC wnl. CMP notable for AST/ALT both elevated at 71/49, but not 2x upperlimit of normal - UPC 0.19 on admission - Admitted for trending of labs given elevated LFTs - CMP pending this AM, AST and ALT 75 and 51 yesterday PM - Bps low to high mild range overnight - Patient previously discussed expectant management vs recommendation for IOL based on lab results/sx T1DM - Managed by [facility] - Omniopod and Dexcom G6 in place - A1c 6.1 on 10/29 - BGTs well controlled overnight - Continue current pump settings gThromb - Plts 135 this AM, stable from 132 yesterday, down from 150 on admission Polyhydramnios - ALLI 30 on 02/17 Chronic Anemia - Hb 9.6 this AM - PO iron POTS - Sleeping comfortably this AM, ASX yesterday Hx Kidney Stone - s/p lithotripsy, stent Jul 2022 Tooth Pain - Recent extraction - Continue home amoxicillin 500mg TID IUP @ 36w5d - Dating by 1st trimester US - Cephalic - Monitorinhr TID - Diet:Gestational CCD - BMZ Deferred - Reporting some Ctx overnight, checked by Dr. Agustin and SVE 0-1cm Further plan pending d/w attending. Mary Lou Mendez MD 02/20/2024, 5:43 AM Associated attestation - Hugo Rodriguez MD - 02/20/2024 2:56 PM EDT I independently saw and evaluated the patient. I agree with the findings and plan of care as documented in the resident's note. No headache and discussed plan this am her Mother and FOB present 18 at 36 5/7 GA with the following: PreEwoSF stable and doing well with ALT/AST stable with slightly decreased platelets which were stable no headache or neuro symptoms start IOL 36 6/7 weeks given her T1DM/preeclampsia with no severe features and concerns for worsening outcome T1DM ongoing pump and dexcom reviewed no changes in management some lows encouraged eating not eating full meal Thrombocytopenia decreasing still > 100K, cannot exclude that this is not related to pre-eclampsia Polyhydramnios on 02/18/24 ALLI of 30 Chronic anemia 9.7 s/p of IV venofer History of kidney stones s/p lithotripsy Tooth pain recent extraction Plan for start of Iol 36 6/7 weeks with delivery planned for 37 0/7 weeks will make plans with induction for insulin pump tomorrow. I spent 30 minutes in the visit today on the floor reviewing the chart, discussing the case with the residency staff and nursing Hugo Rodriguez MD * Breezy Agustin DO - 02/20/2024 4:40 AM EDT Patient reporting ctx. Earlier in the night patient feeling ctx which eventually went away with fluid bolus and rest. Ctx returned at 0445. Patient agreeable to SVE 0-1/50/-3. Thick and posterior lowconcern for tPTL. Will order vistaril and tylenol. CEFM while sam. BREEZY AGUSTIN DO 02/20/2024 4:41 AM * Dahlia Bullard, - 02/19/2024 6:30 AM EDT Images from the original note were not included. Maternal Medicine Service Resident Progress Note 02/19/2024 6:30 AM 02/18/2024 Hospital Day: 2 Catalina Capellan, 18 y.o. 36w4d Patient has been seen and examined. Doing well this AM. Denies CAT/VC/CP. Endorses normal SOB that has not worsened, states is stable for the past few weeks. No acute concerns. Positive movement Negative vaginal bleeding Negative LOF Negative Contractions Vitals: 02/18/24 1744 02/18/24 2030 02/19/24 0016 02/19/24 0559 BP: 156/96 137/97 122/75 144/104 Pulse: 61 103 105 83 Resp: 16 18 18 18 Temp: 36.5 C (97.7 F) 37 C (98.6 F) 37.2 C (98.9 F) 36.7 C (98 F) TempSrc: Oral Temporal Temporal Temporal SpO2: 99% 96% 95% 98% Weight: Height: FHT: 110, moderate variability Accels: present Decels: absent Contractions: none Physical Exam: Gen: NAD HEENT: Normocephalic, Atraumatic, EOMI Resp: CTABL Card: RRR S1S2 Abd: soft, gravid, NTND, no rebound, no guarding. No fundal tenderness Ext: No LE edema, no calf tenderness or swelling Medications: Current Facility-Administered Medications Medication Dose Route Frequency Provider Last Rate Last Admin acetaminophen (Tylenol) tablet 650 mg 650 mg Oral q4h PRN Dahlia Bullard DO amoxicillin (Amoxil) capsule 500 mg 500 mg Oral TID Emy Watkins MD 500 mg at 02/18/24 2219 aspirin EC tablet 81 mg 81 mg Oral Daily Dahlia Bullard, DO 81 mg at 02/18/24 1742 dextrose 5 % infusion 100 mL/hr IntraVENous PRN Dahlia Bullard DO dextrose 50 % solution 12.5 g 12.5 g IntraVENous PRN Dahlia Bullard DO glucagon (human recombinant) injection 1 mg 1 mg IntraMUSCular PRN Dahlia Bullard DO glucose oral gel 15 g 15 g Oral PRN Dahlia Bullard DO insulin lispro (HumaLOG) patient supplied pump SubCUTAneous Continuous Dahlia Bullard DO 30 Units at 02/18/24 185 ondansetron ODT (Zofran-ODT) disintegrating tablet 4 mg 4 mg Oral q8h PRN Dahlia Bullard DO Or ondansetron (Zofran) injection 4 mg 4 mg IntraVENous q6h PRN aDhlia Bullard DO vitamin tablet 1 tablet Oral Daily Dahlia Bullard DO 1 tablet at 02/18/24 1742 sodium chloride 0.9 % infusion 5-250 mL/hr IntraVENous PRN Dahlia Bullard DO sodium chloride 0.9% (NS) flush 10 mL 10 mL IntraVENous 2 times per day Dahlia Bullard DO sodium chloride 0.9% (NS) flush 10 mL 10 mL IntraVENous PRN Dahlia Bullard DO Assessment/Plan: Catalina Capellan is a 18 y.o. female 36w4d PreEwoSF - Met criteria on prior admission with mild range BP and elevated UPC of 0.34 during last PNU admission 01/06-01/08 - PreE labs ordered on admission, CBC wnl. CMP notable for AST/ALT both elevated at 71/49, but not 2x upper limit of normal - UPC 0.19 on admission - Admitted for trending of labs given elevation in LFTs - This AM CMP pending - Asx this AM - BP mild range overnight - Discussed expectant management vs. Recommendation for IOL based on lab results, symptoms T1DM - Managed by cMFM - Omniopod and Dexcom G6 in place - A1c 6.1 on 10/29 - BGTs well controlled overnight - Continue current pump settings gThrombocytopenia - Plt 132 this AM, down from 150 on admission Polyhydramnios - ALLI 30 on 02/17 Chronic Anemia - CBC on admission 10.1 - PO iron - Asx on admission POTS - Asx on admission Hx Kidney Stone - s/p lithotripsy, stent Jul 2022 Tooth Pain - Recent extraction - Continue home amoxicillin 500 mg TID IUP @ 36w4d - Dating by 1st trimester US - Cephalic - Monitorinhr TID - Diet:Gestational CCD - BMZ Deferred Further plan pending d/w attending. Dahlia Bullard, 02/19/2024, 6:30 AM Associated attestation - Hugo Rodriguez MD - 02/19/2024 3:20 PM EDT I independently saw and evaluated the patient. I agree with the findings and plan of care as documented in the resident's note. No headache and discussed plan this am 18 at 36 4/7 GA with the following: PreEwoSF stable and doing well with ALT/AST stable with slightly decreased platelets today no headache or neuro symptoms discussed checking CBC and CMP if continued decrease in platelets will start IOL given her T1DM and concerns for worsening outcome T1DM ongoing pump and dexcom reviewed no changes in management Thrombocytopenia decreasing still > 100K, cannot exclude that this is not related to pre-eclampsia Polyhydramnios on 02/18/24 ALLI of 30 Chronic anemia 9.7 this am consideration of IV venofer History of kidney stones s/p lithotripsy Tooth pain recent extraction Will await repeat labs to make the plan I spent 40 minutes in the visit today on the floor reviewing the chart, discussing the case with the residency staff and nursing Hugo Rodriguez MD * Lilliana Mendoza MD - 02/18/2024 1:18 PM EDT Department of Obstetrics and Gynecology Labor and Delivery Triage Note CHIEF COMPLAINT: Elevated BP HISTORY OF PRESENT ILLNESS: Diagnosed with PreE around one month ago. Last night noted BP at home of 162/112, has stayed close to this range this morning. Prior to this episode last few weeks has hadmild range Bps. Blood sugar levels well controled. Reports CTX every 5-6 mins increasing in strength since this morning. Increased discharged, milky white/clear. No CAT/VC/RUQ pain. CAT on and off past few days resolved with Excedrin. Slight LE edema comes and goes past few weeks. Off an on chest tightness/heavy feeling started a few days ago, increased SOB out of ordinary worsening since last night, cannot lay flat, noticing SOB at rest. Pt is scheduled for IOL on 02/21. Of note: Scheduled for three iron infusions only received one two weeks ago. Pt also had recent tooth extraction and has taken amoxicillin for 2 days. She believes the tooth extraction may be the cause of her on and off headaches over past few days. The patient is a 18 y.o. 36w3d. OB History 2 Para 0 Term 0 0 AB 1 Living 0 SAB 1 IAB 0 Ectopic 0 Multiple 0 Live Births 0 Patient presents with a chief complaint as above. Denies DFM/VB/LOF. Endorses CTX. Estimated Due Date: Estimated Date of Delivery: 03/14/24 PAST MEDICAL HISTORY: Past Medical History: Diagnosis Date Anemia Anxiety Depression Diabetes mellitus affecting Kidney stone Orthostatic intolerance POTS (postural orthostatic tachycardia syndrome) PAST SURGICAL HISTORY: Past Surgical History: Procedure Laterality Date KIDNEY STONE SURGERY no incision SOCIAL HISTORY: reports that she has never smoked. She has never used smokeless tobacco. She reports that she does not drink alcohol and does not use drugs. MEDICATIONS: Prior to Admission medications Medication Sig Start Date End Date Taking? Authorizing Provider amoxicillin (Amoxil) 250 MG capsule Take 1 capsule by mouth 3 times daily. Yes Historical Provider, aspirin 81 MG EC tablet Take 81 mg by mouth daily. Yes Historical Provider, cholecalciferol (Vitamin D3) 25 MCG (1000 UT) tablet Take by mouth daily. 11/26/23 Yes Historical Provider, Vit-Fe Fumarate-FA ( 1+1 PO) Take 1 tablet by mouth daily. Yes Historical Provider, insulin lispro (HumaLOG) 100 UNIT/ML patient supplied pump Inject under the skin continuous. Historical Provider, CARE: Complicated by: anemia, preeclampsia without severe features, and T1DM REVIEW OF SYSTEMS: Pertinent items are noted in HPI. APPEARANCE: Pain: Yes: with contractions PHYSICAL EXAM: Vital Signs: Elevated BPs/Respirations normal effort Vitals: 02/18/24 1421 02/18/24 1425 02/18/24 1430 02/18/24 1449 BP: 156/105 Pulse: 76 85 81 91 Resp: 18 Temp: 36.5 C (97.7 F) TempSrc: Oral SpO2: 100% Weight: 183 lb (83 kg) Height: 5' 6 (1.676 m) Abdomen: soft, NT, ND, no rebound/guarding Uterus: gravid/non-tender LE Edema: 1+ Speculum Exam: Deferred heart rate: Category I Cervix: Closed, pt sensitive to cervical exam Contraction frequency: irregular, every 6-7 minutes Membranes: Intact RESULTS: NST: Reactive GENERAL LABS: Recent Results (from the past 24 hour(s)) CBC Collection Time: 02/18/24 1:43 PM Result Value Ref Range Auto WBC 6.6 3.6 - 10.7 10*3/uL RBC 4.16 3.80 - 5.20 10*6/uL Hemoglobin 10.1 (L) 11.7 - 16.0 g/dL Hematocrit 33.6 (L) 35.0 - 47.0 % MCV 80.8 77.0 - 99.0 fL MCH 24.3 (L) 26.0 - 34.0 pg MCHC 30.1 (L) 30.5 - 36.0 % RDW 21.3 (H) 11.5 - 15.0 % Platelets 150 140 - 440 10*3/uL IPF 14 Comprehensive metabolic panel Collection Time: 02/18/24 1:43 PM Result Value Ref Range SODIUM 135 135 - 145 mmol/L POTASSIUM 3.6 3.5 - 5.1 mmol/L CHLORIDE 108 (H) 98 - 107 mmol/L CARBON DIOXIDE 19 (L) 22 - 30 mmol/L ANION GAP 8 3 - 13 mmol/L UREA NITROGEN 6 (L) 7 - 17 mg/dL CREATININE 0.47 (L) 0.52 - 1.04 mg/dL GLUCOSE 110 (H) 70 - 100 mg/dL CALCIUM 9.1 8.4 - 10.4 mg/dL AST (SGOT) 71 (H) 15 - 46 U/L ALT 49 (H) 0 - 34 U/L ALKALINE PHOSPHATASE 218 (H) 38 - 126 U/L ALBUMIN 3.1 (L) 3.5 - 5.0 g/dL BILIRUBIN, TOTAL 0.7 0.2 - 1.3 mg/dL TOTAL PROTEIN 6.5 6.3 - 8.2 g/dL eGFR >90.0 >60.0 mL/min/1.73m*2 Protein, urine, random Collection Time: 02/18/24 1:44 PM Result Value Ref Range TOTAL PROTEIN, UR 23 (H) 0 - 12 mg/dL Creatinine, urine, random Collection Time: 02/18/24 1:44 PM Result Value Ref Range CREATININE, URINE 119.9 No Range mg/dL ECG 12 lead Collection Time: 02/18/24 1:56 PM Result Value Ref Range Heart Rate 84 bpm QRSD Interval 93 ms QT Interval 372 ms QTC Interval 440 ms P [place] 20 degrees QRS [place] -5 degrees T Wave [place] 30 degrees SD Interval 115 ms POCT glucose meter Collection Time: 02/18/24 3:50 PM Result Value Ref Range Glucose 93 70 - 100 mg/dL TRIAGE COURSE: Pt reporting elevated Bps at home. No CAT/VC/RUQ pain/epigatric pain. Is reporting chest tightness, SOB at rest, and LE that comes and goes. Pt reports good glucose control at home. Pt is endorsing contractions every 5-6 mins she is needing to breath through. Last cervical exam 3 weeks ago closed, today pt is closed, pt was sensitive during cervical exam limiting complete evaluation. Ordered labs: CBC, CMP, UPC, EKG. Low suspicion for cardiac abnormality but due to increased SOB/chest tightness will obtain EKG. Pt reporting headache possibly related to recent tooth extraction, tylenol ordered. Labs significant for anemia, elevated LFTs AST 71/ALT 49, UPC wnl. Pt GBS negative culture on 01/31. Given new symptoms of SOB/chest tightness, lab changes, persistent mild range Bps in triage, and contractions pt is appropriate for admission. Handoff to team completed. IMPRESSION: Preeclampsia-without severe features Pain assessment and plan: Present: pain is perceived as moderate (4-6 pain scale) DISCUSSED WITH PNC PROVIDER: team, Dr. Hugo Rodriguez DISPOSITION: Admit to Antepartum (PNU) documented in this [facility]08-28-2024 Nurse Note* Russell Leal RN - 02/24/2024 9:00 PM EDT HS blood sugar per patient's CGM: 98mg/dl [facility] [id number] Miscellaneous Notes* Note - Belen Quintanilla RN - 02/24/2024 1:00 PM EDT Follow up visit for discharge. Baby is in the nursery for a car sear challenge. Mom will call when ready to feed . * Note - Valerie Andrade RN - 02/23/2024 2:00 PM EDT Follow up visit. Baby 36w6d gestation. BGT protocol; received gel x2. Formula supplementation ordered per ped d/t low BGT (15-30mL MIKE/formula after ). (See orders). Hospital electric pump at pt bedside. Pt reports that she has not been doing well with pumping. Pt states thatshe has not pumped today. Discussed supply and demand of breast milk production and importance of breast stimulation in establishing milk supply. Discussed w/ pt 's LPT status. Parents educated on possible feeding challenges for late baby. Parents educated that late infants tend to feed slower and may need to be fed more often (every 2-3 hrs). They may also not be able to take in as much breast milk or formula with each feeding. Some late infants may have trouble initiating or maintaining . We discussed importance of pumping after every feed d/t formula supplementation and toensure breasts are receiving adequate stimulation to establish milk supply since late babies typically have less fat pads in their cheeks. Pt educated on proper intake volume, output and weight loss parameters. Discussed feeding plan and goals. Pt encouraged to continue and to callfor LC next time baby feeds so that we may observe and support. Pt to offer breast, supplement and pump every 3hrs per ped order. Reviewed required volumes needed based on hospital policy. 2-10 ml (first 24 hrs) 5-15 ml (24-48 hrs) 15-30 ml (48-72 hr) and 30-60 (72-96 hrs) may require more if still showing hunger signs. If no MIKE available then formula will need to be given to make up difference. Discussed alternative feeding methods w/ pt. Pt agreeable to paced bottle feed. Reviewed feeding cues, I&O, skin to skin and cluster feeding. Reviewed feeding plan w/ parents. Plan to breastfeed on cue, pump and supplement every 3 hours via paced bottle feed. Reviewed touch pad w/ parents. Encouraged to call for assistance as needed. All questions answered; parents verbalize understanding. * Note - HILDA Manley - 02/22/2024 1:01 PM EDT Baby sound asleep in crib, bundled. This is the patients first baby. He was born at 36wk 6 days. Hehas had gel twice and latch is on and off . He is <24 hours old. He has been supplemented withformula bottles of 15-30ml. Pt expresses concern that baby may not breastfeed due to supplementing.Pt has apump at her bedside and a medela pump from insurance at home. Discussed late gestati on and bf risk factors discussed bf the first 24 hours and beyond.. Discussed establishing a milk supply and importance of breast stimulation. Pt states he has latched briefly but forgets what to do once he is latched. Enc continued bf attempts, calling RN or for help when needed. Enc to pump and supplement q 3 hours per order. Reviewed volumes of milk needed based on hospital policy and volumes written for the patient. Enc her to pump every 3 hours or every time infant supplement. Enc to use own mike when available. Yah we have been spoon feeding. Enc given. Reviewed feeding cues, I&O, skin to skin and cluster feeding. Reviewed plan to bf on cue, pump and supplement q 3 hours with alternative feeding methods. Informed of availability and how to contact with touch pad. Verbalizes understanding. * Care Coordination - Angeline Fink RN - 02/22/2024 12:23 PM EDT Date: 02/22/2024 Name: Catalina Capellan : 2005 [facility] Information [place] Patient Information Primary Caregiver: Self Accompanied by/Relationship: S/O;Family Marital Status: S/O Support System: SO/Family Jewish/Cultural Factors:none Activities of Daily Living Communication: See demographics Living Arrangements Current Residence: Private residence Lives With: S/O; Family Support System: S/O; Family Income Information Income Source: Employed Financial Resource Strain How hard is it for you to pay for the very basics like food, housing, medical care and heating? N/A Housing Stability In the last 12 months, was there a time when you did not have a steady place to sleep or slept in ashelter (including now)? No Transportation Needs Has the lack of Transportation kept you from medical appointments? No In the past 12 months, has the lack of transportation kept you from meetings, work, or from gettingthings needed for daily living? No Food Insecurity Within the past 12 months, have you worried that your food would run out before you got the money to buy more? No Stress Do you feel stress - tense, restless, nervous, or anxious, or unable to sleep at night because you mind is troubled all the time? Mood stable Referral To Financial Resources: N/A Community Resources: Admission folder given upon admission to PP Unit Social Work: N/A CLP: N/A Medical Information 18 year old admitted for elevated blood pressure and T1DM. delivery. Discharge Plan Home or Community Resources: Admission folder given upon admission to PP unit Equipment: N/A Education Given: Discussion on the A. B. C's of safe sleep. Always place your baby on his or her back to sleep, use a firm sleep surface and your baby should not sleep in an adult bed, on a couch or chair. Keep soft objects, toys and loose bedding out of your baby's sleep area. Reviewed depression. It is common to have blues. This is a normal response to many of the hormonalchanges, stress and lack of sleep that go with raising a and physically recovering from thebirth. Don't hesitate to talk to your provider with any concerns. There are resources in your home going booklet. To help prevent germs from spreading to you and your baby, make sure everyone washes t heir hands before they handle your . Avoid crowds, and keep infant away from sick people, anyone who is sick with a cough or fever, including family members. Post- warning signs information reviewed with patient per nurse with discharge Additional Information: Patient is independent and has insurance. She is prepared with her baby supplies. To be discharged to home. Denies any concerns at this time. Mental Health Services: Resources in discharge folder Equipment: Developmental Delay: N/A Children's Services: N/A * Op Note - Jolanta Murphy MD - 02/21/2024 10:23 PM EDT Images from the original note were not included. Operative Note Patient: Catalina Capellan : 2005 Date of Procedure: 02/21/2024 Principal Problem: Preeclampsia, third trimester PREOPERATIVE DIAGNOSES: 1. at 36w6d 2. PreEwSF 3. T1DM 4. Polyhydramnios 5. Chronic Anemia 6. POTS 7. Hx Kidney Stone 8. Tooth Pain POSTOPERATIVE DIAGNOSES: 1. Same 2. Unscheduled primary 3. Living , male PROCEDURE: Primary low transverse section SURGEON: Dr. Odonnell ASST: Dr. Murphy ANESTHESIA: spinal ANTIBIOTIC(S): 2g Ancef FINDINGS: Normal appearing uterus, ovaries and fallopian tubes FLUIDS: 1500 ml crystalloids URINE: 100 ml EBL: 600 ml QBL: Quantitative Blood Loss (mL): 556 mL DRAINS: gamez catheter SPECIMENS: none COMPLICATIONS: none CONDITION: good, transferred to : post anesthesia recovery FINDINGS: Live male infant, occiput anterior APGARS 1 min: 4 5 min: 6 10 min: 9 Weight: 4160 grams Tubes and ovaries: within normal limits Description: normal INDICATION FOR PROCEDURE Patient admitted to on 02/17 for elevated blood pressures and T1DM. Patient developed PreEwSF based on RUQ pain and elevated LFT's. Patient was moved to a labor bed on 02/20 however inductionwas not started due to worsening RUQ pain and concern for maternal health throughout labor course. Therefore, decision was made to proceed with primary section. She was was consented for a section and was agreeable to blood products as medically indicated. This was an unscheduled,non-emergent section. DETAILS OF PROCEDURE: Patient was brought into the operating room and she was placed in the supine position slightly tilted to the left. The abdomen was prepped and draped in the usual manner. Anesthesia level was checkedand was found to be adequate. The abdomen was entered through a pfannenstiel incision. The incisionwas carried through the subcutaneous tissue to the fascia which was nicked in the midline and carried transversely using valdes scissors. Kochers were used to grasp the edges of the fascia and sharp and blunt dissection used to reflect the underlying rectus abdominis muscles. The muscles were in the midline bluntly exposing the parietal peritoneum. The peritoneum was entered bluntly. The peritoneal incision was extended bluntly with good visualization of bladder. Bladder retractor was placed as well as Howell retractor. The lower uterine segment was opened with a scalpel. The amniotic cavity was entered and copious amount of clear amniotic fluid was noted. Bladder retractor and Howell retractor were removed, andbaby was delivered from the cephalic presentation with fundal pressure without difficulty. The babywas handed over to the NICU personnel standing by. Placenta was extracted intact with gentle traction. The uterus was exteriorized and wrapped in a wet lap. The uterine cavity was swept and cleared of all clots and debris using a dry lap. The uterine incision was closed using a continuous locked suture of 0 Monocryl. A second layer was not performed . Hemostasis was ensured. The uterus was replaced in the abdomen. Hemostasis of the operative field was ensured and the gutters were cleared of all clots and debris. The peritoneum and overlying rectus muscles were well approximated and did not require plication midline. A small rectalhematoma was present on the left side and cauterized. Fascia was closed with 0 Looped PDS in a running fashion. Subcutaneous closure was performed with 3-0 Monocryl in an interrupted fashion. Hemostasis was ensured. Skin closure was performed with 4-0 Vicryl on a Case needle, steri- strips, and dressing. Sponge, needle and instrument counts were correct twice. Patient was transferred to the recovery room in satisfactory stable condition. Jolanta Murphy MD 02/21/2024 11:27 PM LABOR DELIVERY ??? SCD's ONLY (labor through ambulation) SCD's PLUS Prophylactic Anticoagulation until discharge SCD's PLUS Prophylactic Anticoagulation for 6 weeks SCD's PLUS Therapeutic Anticoagulation for 6 weeks Vaginal Delivery [] BMI ? 40 kg/m2 Delivery All patients Vaginal Delivery [] BMI ? 40 kg/m2 AND [] Antepartum hospitalization ? 72 hours within the past month Delivery 1 Major Risk Factor: [] BMI ? 35 kg/m2 [] Low Risk Thrombophilia [] PPH+RBCs, IR, or operation [] Infection+Antibiotics [] Antepartum hospitalization ? 72 hours within the past month [] PMH: Sickle Cell, SLE, Cardiac Dz, Active IBD, Active Cancer, Nephrotic Syndrome OR 2 Minor Risk Factors: [] Multiple gestation [] Age > 40 [] PPH ? 1,000cc [] (+)FMH of VTE [] Smoker [] Preeclampsia [] BMI ? 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), Prothrombin (homozygous), FVL+Prothrombin (heterozygous), Antithrombin III, APLS VTE Prophylaxis: Not Indicated Associated attestation - Pham Odonnell DO - 02/23/2024 7:56 AM EDT Procedures or Surgery: I was present for all guerrier elements of the procedure or surgery as described in the resident note. * Significant Event - Jolanta Murphy MD - 02/21/2024 9:33 PM EDT Safety Huddle Patient admitted for IOL-PreEwSF and T1DM. Due to significant RUQ and epigastric pain along with elevated LFT's, induction not started due to concerns with prolonged labor in regards to maternal health. Plan to proceed with a primary cesareansection for PreEwSF. Risks and benefits discussed with the patient including the risk of injury to surrounding structures, bleeding and infection. Patient amendable to receiving blood products if medically indicated. Consent form signed. Safety Huddle performed with Attending provider, OB broker in charge, OB anesthesia, resident team and primary RN. All in agreement for PCD-PreEwSF. Patient will be for2g Ancef. Spinal will be placed. This will be an unscheduled non-emergent primary section. Jolanta Murphy MD 02/21/2024 9:33 PM * Significant Event - Jolanta Murphy MD - 02/21/2024 8:32 PM EDT Notified by RN of persistent severe range BP. Labetalol 20 mg ordered at this time. * Significant Event - Nina Renee DO - 02/21/2024 6:37 PM EDT On transfer from [facility] to L&D for induction of labor repeat labs were drawn including CBC, CMP, LDH, Coagulation studies. Significant lab results as follows: PT/INR/aPTT: wnl Fibrinogen: 533 LDH: 403 AST: 154 ALT 75 Plt: 111 Patient now meets criteria for PreEwSF with LFTs 2x ULN. I evaluated the patient at bedside. She does have epigastric pain that radiates to her right side and beneath her right rib cage. It does alsoradiate to the left side, but not as significantly compared to her right. I updated Dr. Rodriguez at this time, will defer any imaging at this time and start induction process still. We will plan to repeat labs at midnight with CBC, CMP, LDH, Coagulation studies. Will start magnesium sulfate for seizure prophylaxis, 4g bolus followed by 2g/hr. This information was all signed out to the night team. Associated attestation - Hugo Rodriguez MD - 02/22/2024 8:33 AM EDT See my note as well agree with plan Hugo Rodriguez MD * Care Coordination - Breanne Mendoza RN - 02/19/2024 1:21 PM EDT Date: 02/19/2024 Name: Catalina Capellan : 2005 [facility] Patient Information Primary Caregiver: Self Accompanied by/Relationship: S/O;Family Marital Status: Significant Other Support System: SO/Family Jewish/Cultural Factors: None Activities of Daily Living Communication: See demographics Living Arrangements Current Residence: Private residence Lives With: S/O; Family Support System: S/O; Family Income Information Income Source: Employed Financial Resource Strain How hard is it for you to pay for the very basics like food, housing, medical care and heating? N/A Housing Stability In the last 12 months, was there a time when you did not have a steady place to sleep or slept in ashelter (including now)? No Transportation Needs Has the lack of Transportation kept you from medical appointments? No In the past 12 months, has the lack of transportation kept you from meetings, work, or from gettingthings needed for daily living? No Food Insecurity Within the past 12 months, have you worried that your food would run out before you got the money to buy more? No Stress Do you feel stress - tense, restless, nervous, or anxious, or unable to sleep at night because you mind is troubled all the time? Mood stable Referral To Financial Resources: N/A Community Resources: PNU folder given upon admission to PNU Unit Social Work: N/A CLP: N/A Medical Information admitted at 36/3 weeks for elevated BP and T1DM; PreEwoSF; Polyhydramnios; POTS; hx kidney stone Discharge Plan Home or Community Resources: PNU Admission folder given upon admission to unit Equipment: N/A Education Given: PNU admit folder and see Education Tab Additional Information: N/A Mental Health Services: N/A Developmental Delay: N/A Children's Services: N/A documented in this [facility]08-28-2024 Obstetrics Note* Note - Belen Quintanilla RN - 02/24/2024 1:00 PM EDT Follow up visit for discharge. Baby is in the nursery for a car sear challenge. Mom will call when ready to feed . [facility] [id number] Hospital course Narrative* Calista Pham MD - 02/24/2024 11:22 AM EDT Images from the original note were not included. Department of Obstetrics and Gynecology Delivery Discharge Summary Admission on 02/18/2024 12:43 PM Hospital course: Patient is a 18yo admitted at 36w3d to [facility] on 02/17 for elevated blood pressures and T1DM. Patient developed PreEwSF based on RUQ pain and elevated LFT's. Patient was moved to a labor bed on 02/20 however induction was not started due to worsening RUQ pain, worsening platelets to 107k from 135k and concern for maternal health throughout labor course. Therefore, decision was made to proceed with primary section. PLTCS performed. course & complications: - Uncomplicated BP well controlled on Procardia 60 mg XL daily Surgical Operations & Procedures: Date of delivery: 02/21/24 Procedure: : Low Transverse Anesthesia: Spinal anesthesia Laceration(s): n/a Delivery Complications: none EBL: 600 mL Pertinent Findings & Procedures: Information for the patient's : Mesfin Capellan [[id number]] male 4160 g (9 lb 2.7 oz) Apgars: Information for the patient's : Mesfin Capellan [[id number]] : Infant: Boy, circ not done due to torsion Blood Type/Rh: O Antibody Screen: No results found for: LABANTI Rubella: No results found for: RUBELLAIGG Contraception: no method : and Bottle feeding: Breast milk and Formula VTE Prophylaxis: Prophylactic Dosing until Discharge Meds at Discharge: Medication List START taking these medications DSS 100 MG capsule Take 1 capsule (100 mg) by mouth 2 times daily as needed for constipation. ferrous sulfate 325 (65 Fe) MG tablet Take 1 tablet (325 mg) by mouth daily (with breakfast). ibuprofen 600 MG tablet Take 1 tablet (600 mg) by mouth in the morning and 1 tablet (600 mg) at noon and 1 tablet (600 mg) in the evening and 1 tablet (600 mg) before bedtime. Do all this for 10 days. NIFEdipine XL 30 MG 24 hr tablet Commonly known as: Procardia XL Take 2 tablets (60 mg) by mouth Nightly. Do not crush, chew, or split. oxyCODONE 5 MG immediate release tablet Commonly known as: Roxicodone Take 1 tablet (5 mg) by mouth every 4 hours as needed for moderate pain (4-6) for up to 5 days. CONTINUE taking these medications cholecalciferol 25 MCG (1000 UT) tablet Commonly known as: Vitamin D3 1+1 PO STOP taking these medications amoxicillin 250 MG capsule Commonly known as: Amoxil aspirin 81 MG EC tablet ASK your doctor about these medications insulin lispro 100 UNIT/ML patient supplied pump Commonly known as: HumaLOG Where to Get Your Medications These medications were sent to [facility] [address] [place] [address] Hours: Thursday to Thursday 10 am to 6 pm DSS 100 MG capsule ferrous sulfate 325 (65 Fe) MG tablet ibuprofen 600 MG tablet NIFEdipine XL 30 MG 24 hr tablet oxyCODONE 5 MG immediate release tablet Activity: Activity as tolerated Diet: Regular diet Follow-up Appointments: - visit - Incision check - Blood pressure check - Blood sugar check If a patient meets criteria for hypertension, make sure the following are done prior to discharge: [] Order a blood pressure kit through [facility] (or the patient's own pharmacy on the weekend) [] Order the blood pressure log through [employer] [x] Place an office visit or telephone encounter for a 3-to-5-day blood pressure check. [] Include blood pressure dot phrase (.sumobhypertension) in discharge instructions [] Check here if the patient does NOT meet criteria for hypertension Condition on discharge: Stable Discharge to: Home Discharge date: 02/24/24 Discharge Dx: 1. S/p PLTCS at 36w6d 2. PreEwSF 3. T1DM 4. Chronic Anemia 5. POTS 6. Hx Kidney Stone 7. Tooth Pain Preeclampsia, third trimester [O14.93] Patient Active Problem List Diagnosis Pre-existing type 1 diabetes affecting , antepartum Type 1 diabetes mellitus complicating in second trimester, antepartum Diabetes mellitus affecting in third trimester Preeclampsia, third trimester Comments: Home care, Follow-up care and control were reviewed. Signs and symptoms of mastitis and Depression were reviewed. The patient is to notify her physician if any of these occur. documented in this encounterSProMedica Defiance [facility] [id number] Nurse Note* Ashlyn Garrett RN - 02/24/2024 9:55 AM EDT Patient cgm glucose reading 86 prior to eating breakfast. [facility] [id number] Nurse Note* Russell Leal RN - 02/23/2024 9:00 PM EDT HS blood sugar per patient's CGM: 111mg/dl [facility] [id number] Nurse Note* Marisol Fernandez RN - 02/23/2024 5:06 PM EDT Preprandial blood sugar per patient's CGM: 75mg/dLl. [facility] [id number] Obstetrics Note* Note - Valerie Andrade RN - 02/23/2024 2:00 PM EDT Follow up visit. Baby 36w6d gestation. BGT protocol; received gel x2. Formula supplementation ordered per ped d/t low BGT (15-30mL MIKE/formula after ). (See orders). Hospital electric pump at pt bedside. Pt reports that she has not been doing well with pumping. Pt states thatshe has not pumped today. Discussed supply and demand of breast milk production and importance of breast stimulation in establishing milk supply. Discussed w/ pt 's LPT status. Parents educated on possible feeding challenges for late baby. Parents educated that late infants tend to feed slower and may need to be fed more often (every 2-3 hrs). They may also not be able to take in as much breast milk or formula with each feeding. Some late infants may have trouble initiating or maintaining . We discussed importance of pumping after every feed d/t formula supplementation and toensure breasts are receiving adequate stimulation to establish milk supply since late babies typically have less fat pads in their cheeks. Pt educated on proper intake volume, output and weight loss parameters. Discussed feeding plan and goals. Pt encouraged to continue and to callfor LC next time baby feeds so that we may observe and support. Pt to offer breast, supplement and pump every 3hrs per ped order. Reviewed required volumes needed based on hospital policy. 2-10 ml (first 24 hrs) 5-15 ml (24-48 hrs) 15-30 ml (48-72 hr) and 30-60 (72-96 hrs) may require more if infant still showing hunger signs. If no MIKE available then formula will need to be given to make up difference. Discussed alternative feeding methods w/ pt. Pt agreeable to paced bottle feed. Reviewed feeding cues, I&O, skin to skin and cluster feeding. Reviewed feeding plan w/ parents. Plan to breastfeed on cue, pump and supplement every 3 hours via paced bottle feed. Reviewed touch pad w/ parents. Encouraged to call for assistance as needed. All questions answered; parents verbalize understanding. [place] [id number] Nurse Note* Marisol Fernandez RN - 02/23/2024 10:46 AM EDT Preprandial blood sugar per patient's personal CGM: 85mg/dl. [place] [id number] Nurse Note* Marisol Fernandez RN - 02/23/2024 9:00 AM EDT Late entry due to patient care. Fasting blood sugar per patients CGM: 104mg/dl. Patient has not ordered breakfast at this time. Patient plans to sleep after IV iron sucrose complete and will order food after waking. Patient states she feels very tense and has not slept since delivery. [place] [id number] Nurse Note* Akilah guzman Oca, RN - 02/23/2024 6:10 AM EDT After receiving Dilaudid for pain. Pt instructed to breast pump as pt was not able to pump earlier due to abdominal pain. latching for few sucks and not getting an adequate feed. Pt re-educated on pumping after every attempted breast feed so milk production won't be delayed. Pt verbalized understanding. [place] [id number] Nurse Note* Akilah guzman Oca, RN - 02/23/2024 2:10 AM EDT Pt called nurse into room to inform nurse that she voided again. Pt voided 800 ml clear, yellow urine. Pt reports that she feels she may not be emptying her bladder completely as she feels like she still has to void and is having waves of pain in her abdomen. Visual inspection of her abdomen doesnot look distended. Fundal check at U and firm. Bladder scan shows 282 ml of urine. Straight cath performed. Pt verbalized relief of abdominal pain after straight cath. Will report findings to resident educational psychologist. Will continue to monitor pt's UO. [place] [id number] Nurse Note* Akilah guzman Oca, RN - 02/22/2024 10:30 PM EDT HS blood sugar per pt's own CGM: 135mg/dl [place] [id number] Nurse Note* Akilah guzman Oca, RN - 02/22/2024 7:45 PM EDT AC blood sugar per pt's own CGM 100mg/dl [place] [id number] Hospital Discharge instructions* Discharge Instructions* Jose A Hernandez MD - 02/22/2024 2:46 PM EDT Images from the original note were not included. Thank you for allowing us to care of you at [facility]. This time can be one of many emotional ups and downs and many changes in your life. In these first weeks try to take good care of yourself because you will likely feel very tired. It may take 4 to 6 weeks to feel like yourself again, and possibly longer if you had a . FOLLOW-UP: Your follow-up care is a guerrier part of your treatment and safety. Follow-up with your OB providerin 4weeks or as specified by your OB provider. If you had high blood pressure, visit your OB provider within 3-5 days after being home. Most women's blood pressure will return to pre- levels after delivery. However, some patients continueto have problems with their blood pressure, and some even get worse. Very high blood pressure can lead to seizures or stroke which can be life threatening. If ordered by your provider, take your blood pressure at home and call your OB provider if you have a high reading. Your OB provider can write you a prescription for a blood pressure monitor if you do not have one. Be sure to make and go to all appointments, and call your OB provider if you are having problems. It's also a good idea to know your test results and keep a list of the medicines you take. BLEEDING Vaginal bleeding will decrease in amount over the next few weeks. Bleeding may product picker and then decrease again around 7-10 days . Use pads instead of tampons for the bloody flow that may last as long as 2 weeks. You will notice that as your activity increases, your flow may increase. Call your provider if you are saturating one maxi pad in an hour & passing large clots for 3 hours or more. ACTIVITY NO SEXUAL activity for 6 weeks or until advised by your OB provider; Nothing in vagina: intercourse, tampons, or douching. Begin to think about your reproductive life plan. Talk to your OB provider about if and when you would like to get in the future. The recommendation for safe pregnancyspacing is 18-24 months. Showering is okay; NO tub baths, swimming, or hot tubs. Gradually increase your activity. Resume exercise regimen only after advised by your )OB provider. Avoid lifting anything heavier than ten pounds or a gallon of milk for six weeks. Avoid driving 1 week for vaginal delivery and 2 weeks for section, or longer if you are onprescription pain medicine unless otherwise instructed by your OB provider. Rise slowly from a lying to sitting and then a standing position. Climb stairs carefully. You may feel tired or have a lack of energy. You may continue your vitamin to replenish nutrients post-delivery. Nap when whenever you can to catch up on sleep. EMOTIONS You may feel brennan, sad, teary, & overwhelmed for the first 2 weeks ; however, feelings of depression may occur any time within the first year after delivery. Contact your OBprovider if you feel you may be showing signs of depression, or have thoughts of harmingyourself or or anyone.. WOUND CARE For Vaginal Delivery: Shower daily, and cleanse your perineum (bottom) with mild soap from front to back. Use the plasticsquirt bottle until bleeding stops each time you use the restroom instead of wiping with toilet paper. Ease soreness of hemorrhoids and the area between your vagina and rectum with ice compresses or witch adilene pads. If used, stitches will dissolve in 4-6 weeks on their own. You may use a sitz bath or soak in a clean tub with drain open and water running for comfort. Kegel exercises will help restore bladder control. To do these tighten your muscles as if you were stopping your urine flow. Hold for a few seconds and then relax. Do these throughout the day. For Section Delivery: Keep your incision clean and dry. If you had steri-strips you may remove these once they start falling off. If you have olena they need to be removed 3-10 daysafter delivery. If you have steri-strips, remove after 7 - 10 days. Do not wear clothing that irritates the incision line. If your incision is in a crease that is not dry, use a hair-dryer to dry the area 3 times a day. If you develop fever, shaking chills, redness, swelling, drainage or discharge from your wound, or if your wound looks like it is coming apart call your provider immediately. BREAST CARE If you develop a warm, red, tender area on your breast or develop a fever contact your OB provider.If your breasts become engorged ask your provider because treatment can vary according to your needs. DIET & CONSTIPATION Eat a well-balanced diet focusing on foods high in fiber and protein such as: whole grain cereals and breads, fruits and vegetables and legumes (eg, beans, lentils) Drink 8-10 glasses of fluids daily, especially water. Limit caffeine. To avoid constipation you may take a mild kiir-xgz-[id number] stool softener (such as colace) as recommended by your OB provider. SWELLING Try to keep your legs elevated when you are sitting or lying down. Stay hydrated and take walks. If you had high blood pressure, weigh yourself at the same time each day. Write down your weight and take the record to your OB provider appointment. MEDICATIONS Take all medications prescribed for you exactly as ordered. Don't take any drugs not prescribed to you or over the counter medicines unless recommended by yourprovider. Don't smoke. WHEN TO CALL THE OB PROVIDER Signs of infection, including fever and chills Increased bleeding: soaking more than one pad an hour or passing clots the size of an egg or larger. Wounds that become red, swollen or drain pus Vaginal discharge that smells foul New pain, swelling, or tenderness in your legs Pain that you can't control with the medications you've been given Pain, burning, urgency or frequency of urination, or persistent bleeding in the urine Cough, shortness of breath, or serious difficulty catching your breath Chest pain or pain in the upper right area of your belly Headache (very painful) or vision changes like blurry or double vision, seeing spots or 'auras' Swelling that is worse or weight gain of more than 3 pounds in 3 days Depression, suicidal thoughts, or feelings of harming someone else Breasts that are hot, red and accompanied by fever Any cracking or bleeding from the nipple or areola (the dark-colored area of the breast) SAVE YOUR LIFE: Get Care for these POST- Warning Signs: Call 911 if you have: Pain in chest Obstructed breathing or shortness of breath Seizures Thoughts of hurting yourself or your baby Call your healthcare provider if you have: (if you can't reach your healthcare provider, call 911 or go to an emergency room) Bleeding, soaking through one pad/hour, or blood clots the size of an egg or bigger Incision that is not healing Red or swollen leg, that is painful or warm to touch Temperature of 100.4 F or higher Headache that does not get better, even after taking medicine, or bad headache with vision changes. Contact your healthcare provider and tell them: I delivered on 02/21/2024 and I am having ____(specific warning signs) *Please call your OBGYN office to be seen on 03/01/2024, or as soon as possible after that for blood pressure check* In case of an emergency, call 911 immediately. * Attachments The following attachments cannot be sent through Care Everywhere. * Preeclampsia (Beninese) * Preeclampsia Discharge Instructions (Beninese) documented in this [facility]08-26-2024 Obstetrics Note* Note - HILDA Manley - 02/22/2024 1:01 PM EDT Baby sound asleep in crib, bundled. This is the patients first baby. He was born at 36wk 6 days. Hehas had gel twice and latch is on and off . He is <24 hours old. He has been supplemented withformula bottles of 15-30ml. Pt expresses concern that baby may not breastfeed due to supplementing.Pt has apump at her bedside and a medela pump from insurance at home. Discussed late gestati on and bf risk factors discussed bf the first 24 hours and beyond.. Discussed establishing a milk supply and importance of breast stimulation. Pt states he has latched briefly but forgets what to do once he is latched. Enc continued bf attempts, calling RN or for help when needed. Enc to pump and supplement q 3 hours per order. Reviewed volumes of milk needed based on hospital policy and volumes written for the patient. Enc her to pump every 3 hours or every time supplement. Enc to use own mike when available. Yah we have been spoon feeding. Enc given. Reviewed feeding cues, I&O, skin to skin and cluster feeding. Reviewed plan to bf on cue, pump and supplement q 3 hours with alternative feeding methods. Informed of availability and how to contact with touch pad. Verbalizes understanding. 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 N/A Housing Stability In the last 12 months, was there a time when you did not have a steady place to sleep or slept in ashelter (including now)? No Transportation Needs Has the lack of Transportation kept you from medical appointments? No In the past 12 months, has the lack of transportation kept you from meetings, work, or from gettingthings needed for daily living? No Food Insecurity Within the past 12 months, have you worried that your food would run out before you got the money to buy more? No Stress Do you feel stress - tense, restless, nervous, or anxious, or unable to sleep at night because you mind is troubled all the time? Mood stable Referral To Financial Resources: N/A Community Resources: Admission folder given upon admission to PP Unit Social Work: N/A CLP: N/A Medical Information 18 year old admitted for elevated blood pressure and T1DM. delivery. Discharge Plan Home or Community Resources: Admission folder given upon admission to PP unit Equipment: N/A Education Given: Discussion on the A. B. C's of safe sleep. Always place your baby on his or her back to sleep, use a firm sleep surface and your baby should not sleep in an adult bed, on a couch or chair. Keep soft objects, toys and loose bedding out of your baby's sleep area. Reviewed depression. It is common to have blues. This is a normal response to many of the hormonalchanges, stress and lack of sleep that go with raising a and physically recovering from thebirth. Don't hesitate to talk to your provider with any concerns. There are resources in your home going booklet. To help prevent germs from spreading to you and your baby, make sure everyone washes t heir hands before they handle your . Avoid crowds, and keep away from sick people, anyone who is sick with a cough or fever, including family members. Post- warning signs information reviewed with patient per nurse with discharge Additional Information: Patient is independent and has insurance. She is prepared with her baby supplies. To be discharged to home. Denies any concerns at this time. Mental Health Services: Resources in discharge folder Equipment: Developmental Delay: N/A Children's Services: N/A [facility] [id number] Note* Care Coordination - Angeline Fink RN - 02/22/2024 12:23 PM EDT Date: 02/22/2024 Name: Catalina Capellan : 2005 [facility] Information [place] Patient Information Primary Caregiver: Self Accompanied by/Relationship: S/O;Family Marital Status: S/O Support System: SO/Family Jewish/Cultural Factors:none Activities of Daily Living Communication: See demographics Living Arrangements Current Residence: Private residence Lives With: S/O; Family Support System: S/O; Family Income Information Income Source: Employed Financial Resource Strain How hard is it for you to pay for the very basics like food, housing, medical care and heating? N/A Housing Stability In the last 12 months, was there a time when you did not have a steady place to sleep or slept in ashelter (including now)? No Transportation Needs Has the lack of Transportation kept you from medical appointments? No In the past 12 months, has the lack of transportation kept you from meetings, work, or from gettingthings needed for daily living? No Food Insecurity Within the past 12 months, have you worried that your food would run out before you got the money to buy more? No Stress Do you feel stress - tense, restless, nervous, or anxious, or unable to sleep at night because you mind is troubled all the time? Mood stable Referral To Financial Resources: N/A Community Resources: Admission folder given upon admission to PP Unit Social Work: N/A CLP: N/A Medical Information 18 year old admitted for elevated blood pressure and T1DM. delivery. Discharge Plan Home or Community Resources: Admission folder given upon admission to PP unit Equipment: N/A Education Given: Discussion on the A. B. C's of safe sleep. Always place your baby on his or her back to sleep, use a firm sleep surface and your baby should not sleep in an adult bed, on a couch or chair. Keep soft objects, toys and loose bedding out of your baby's sleep area. Reviewed depression. It is common to have blues. This is a normal response to many of the hormonalchanges, stress and lack of sleep that go with raising a and physically recovering from thebirth. Don't hesitate to talk to your provider with any concerns. There are resources in your home going booklet. To help prevent germs from spreading to you and your baby, make sure everyone washes t heir hands before they handle your . Avoid crowds, and keep away from sick people, anyone who is sick with a cough or fever, including family members. Post- warning signs information reviewed with patient per nurse with discharge Additional Information: Patient is independent and has insurance. She is prepared with her baby supplies. To be discharged to home. Denies any concerns at this time. Mental Health Services: Resources in discharge folder Equipment: Developmental Delay: N/A Children's Services: N/A [facility] [id number] Nurse Note* Marisol Fernandez RN - 02/22/2024 12:06 PM EDT Patient ambulated to bathroom for first time with assistance of this RN. Patient voided. Educated patient on danita care and use of supplies including pads and danita bottle. Bleeding appears to be WNL. Patient demonstrates and verbalizes understanding. Patient tolerated activity well. Patient ambulated back to bed with the assistance of RN, patient verbalizes understanding to use call light and ask for assistance to the bathroom. [facility] [id number] Consult note* Roxie Liz DO - 02/22/2024 9:20 AM EDT Associated Order(s): IP CONSULT TO ENDOCRINOLOGY Department of Internal Medicine Division of Endocrinology, Diabetes, & Metabolism Endocrinology Note Patient Name: Catalina Capellan : 2005 AGE: 18 y.o. Room/Bed: [facility] A Admission Date: 02/18/2024 Visit Date: 02/22/2024 Reason for Endocrine Consult: Type 1 DM on Insulin pump Provider/Team Requesting Consult: OB PCP: No primary care provider on file. Outpt Field Talent Qualification Specialist: Yes Previously followed [facility], now managed by [facility] ASSESSMENT: T1DM on long term care phlebotomist insulin Insulin pump use Preeclampsia with severe features s/p PLAN: - Patient is s/p and is doing well - I reviewed her current pump settings (documented in HPI). Her sugar is fairly controlled with current regimen - I also reviewed her pre pump settings from chart review (also documented on HPI) - Will consider switching her to pre- settings and will do so gradually over the course of2 days as she received some IV steroids and will likely need more insulin. - Please refer to HPI and orders for current insulin pump settings. - Previously followed [facility] and has an upcoming appointment with them. - Carb controlled diet - Hypoglycemia management per protocol ANTICIPATED ENDOCRINE HOME GOING RECOMMENDATIONS: Optimized for Discharge from Endocrine standpoint: No Home Going Endocrine Rx Recommendations-- In progress of gradually transitioning to pre pump settings (settings listed on HPI) [facility] Patient states she will call and reschedule for earlier date SUBJECTIVE/HPI: CHIEF COMPLAINT: Chief Complaint Patient presents with Hypertension Patient is a 18 y.o F with PMHx significant for T1DM on insulin pump, anxiety/depression, Vit D deficiency who was admitted on 02/18/24 for preeclampsia with severe features and underwent on 02/21/24. Type of DM: Type 1 Onset of DM: 04/20/23 Home DM Medication Regimen: Humalog via Insulin pump, started in 05/2023 DM control (last A1c/glucose data): 6.1 [facility] managed her T1DM on insulin pump - omnipod Current pump settings are Basal rates 12A: 0.6 06A: 0.55 10A: 0.6 8P: 0.65 ICR 12A: 1:8 6A: 6 10A: 1.6 5P: 1.6 ISF MN 35 6A: 25 2P: 20 8P: 25 Target range MN, 0600, and 08:00 is 110. Currently, her blood sugars is running between 60s-157. Currently, her sugar has been running between 103-208. Has not eaten since her yesterday. Pre- insulin pump settings are Basal rates: 12 am: 0.5 units/hr 6 am: 0.5 units/hr 8 pm: 0.5 units/hr ICR 12A: 1:14 6A: 1:10 11A: 1:10 4P: 1:10 8P: 1:10 Blood glucose target: 12A-6A is 130 and 6 am to 12A is 120 mg/dl Currently VSS. Lab work with Na of 128, normal renal function, persistent transaminitis with persistent leukocytosis at 14 and hemoglobin of 8.5. Patient was seen and examined at the bedside. Denies chest pain, SOB, Lightheadedness, dizziness, nausea, vomiting, and diarrhea. Glucose Date/Time Value Ref Range Status 02/22/2024 06:54 AM 171 (H) 70 - 100 mg/dL Final 02/22/2024 12:16 AM 137 (H) 70 - 100 mg/dL Final 02/21/2024 09:04 PM 85 70 - 100 mg/dL Final 02/21/2024 04:56 PM 71 70 - 100 mg/dL Final 02/21/2024 12:04 PM 87 70 - 100 mg/dL Final 02/21/2024 08:45 AM 88 70 - 100 mg/dL Final Review of Systems Constitutional: Negative for activity change, chills, fatigue, fever and unexpected weight change. Respiratory: Negative for cough, chest tightness and shortness of breath. Cardiovascular: Positive for leg swelling. Negative for chest pain. Gastrointestinal: Negative for abdominal pain, nausea and vomiting. Genitourinary: Negative for dysuria, frequency and urgency. Skin: Negative for rash. Neurological: Negative for dizziness and light-headedness. Psychiatric/Behavioral: Negative for agitation. ROS negative except for those mentioned in HPI. OBJECTIVE: Vitals: 02/22/24 0210 02/22/24 0256 02/22/24 0350 02/22/24 0752 BP: 146/97 128/84 136/85 122/70 BP Location: Right arm Patient Position: Lying Pulse: 96 95 100 Resp: 17 18 18 Temp: 36.8 C (98.3 F) 37.2 C (98.9 F) TempSrc: Temporal Temporal SpO2: 98% 95% 97% Weight: Height: Physical Exam Constitutional: General: She is not in acute distress. Appearance: Normal appearance. She is not ill-appearing. HENT: Mouth/Throat: Mouth: Mucous membranes are moist. Cardiovascular: Rate and Rhythm: Normal rate and regular rhythm. Pulses: Normal pulses. Heart sounds: Normal heart sounds. No murmur heard. No gallop. Pulmonary: Effort: Pulmonary effort is normal. No respiratory distress. Breath sounds: Normal breath sounds. No wheezing or rales. Abdominal: General: Abdomen is flat. Bowel sounds are normal. There is no distension. Palpations: Abdomen is soft. Tenderness: There is no abdominal tenderness. There is no guarding. Musculoskeletal: Right lower leg: Edema present. Left lower leg: Edema present. Comments: 2+ pitting edema to the bilateral lower extremities Skin: General: Skin is warm and dry. Neurological: General: No focal deficit present. Mental Status: She is alert. Psychiatric: Mood and Affect: Mood normal. 24 hour intake/output: Intake/Output Summary (Last 24 hours) at 02/22/2024 0920 Last data filed at 02/22/2024 0650 Gross per 24 hour Intake 1610 ml Output 2356 ml Net -746 ml Diet: Adult diet Regular Medications (as per EMR): HomeMeds: Current Outpatient Medications Medication Instructions amoxicillin (Amoxil) 250 MG capsule 1 capsule, Oral, 3 times daily aspirin 81 mg, Oral, Daily cholecalciferol (Vitamin D3) 25 MCG (1000 UT) tablet Oral, Daily insulin lispro (HumaLOG) 100 UNIT/ML patient supplied pump SubCUTAneous, Continuous Vit-Fe Fumarate-FA ( 1+1 PO) 1 tablet, Oral, Daily Scheduled Meds:amoxicillin, 500 mg, Oral, 3 times per day [Held by provider] enoxaparin, 40 mg, SubCUTAneous, Daily ferrous sulfate, 325 mg, Oral, BID [START ON 02/23/2024] ibuprofen, 600 mg, Oral, q6h ketorolac, 30 mg, IntraVENous, q6h measles, mumps and rubella, 0.5 mL, SubCUTAneous, Prior to discharge NIFEdipine XL, 30 mg, Oral, Nightly vitamin, 1 tablet, Oral, Daily sodium chloride 0.9%, 5-40 mL, IntraVENous, 2 times per day Tdap-Dtap, 0.5 mL, IntraMUSCular, Prior to discharge Continuous Infusions:insulin lispro, magnesium sulfate, 2,000 mg/hr, Last Rate: 2,000 mg/hr (08/26/24 0606) oxytocin, 125 elvin-units/min PRN Meds:PRN medications: acetaminophen, calcium gluconate, dextrose, dextrose, diphenhydrAMINE, docusate sodium, famotidine, glucagon (rDNA), glucose, HYDROmorphone OR HYDROmorphone, lanolin, naloxone, ondansetron ODT OR ondansetron, oxyCODONE OR oxyCODONE, oxytocin, simethicone, sodium chloride, sodium chloride 0.9% Diagnostic Workup: I reviewed pertinent Laboratory results, Radiographic results, and Other Clinical Notes at the timeof today's encounter. Labs: No components found for: LABA1C No components found for: EAG Lab Results Component Value Date NA 128 (L) 02/22/2024 K 3.9 02/22/2024 CL 104 02/22/2024 CO2 20 (L) 02/22/2024 BUN 4 (L) 02/22/2024 CREATININE 0.48 (L) 02/22/2024 GLUCOSE 157 (H) 02/22/2024 CALCIUM 7.4 (L) 02/22/2024 No results found for: CHLPL, CHOL No results found for: TRIG No results found for: HDL No results found for: LDLCALC No results found for: VLDL No results found for: CHOLHDLRATIO No results found for: [id number] Lab Results Component Value Date TSH 0.947 10/30/2023 THYROIDAB <3.0 09/01/2023 Radiology reportsas per the Radiologist Radiology: ECG 12 lead Result Date: 02/21/2024 Sinus rhythm Nonspecific T abnormalities, anterior leads Electronically Signed On 02-21-2024 18:06:36 EDT by Amanda Gar POCT glucose meter Result Date: 02/19/2024 Performed by: [facility], [address] [place] [id number] CLIA ID: [id number] POCT glucose meter Result Date: 02/19/2024 Performed by: [facility], [address] [place] [id number] CLIA ID: [id number] POCT glucose meter Result Date: 02/19/2024 Performed by: [facility], [address] [place] [id number] CLIA ID: [id number] POCT glucose meter Result Date: 02/19/2024 [facility]formed by: [facility], [address] [place] [id number] CLIA ID: [id number] POCT glucose meter Result Date: 02/19/2024 Performed by: [facility], [address] [place] [id number] CLIA ID: [id number] POCT glucose meter Result Date: 02/19/2024 Performed by: [facility], [address] [place] [address] [place] [address] CLIA ID: [id number] POCT glucose meter Result Date: 02/19/2024 Performed by: [facility], [address] [place] [id number] CLIA ID: [id number] POCT glucose meter Result Date: 02/18/2024 [facility]formed by: [facility], [address] [place] [id number] CLIA ID: [id number] POCT glucose meter Result Date: 02/18/2024 Performed by: [facility], [address] [place] [id number] CLIA ID: [id number] History/Other: Past Medical History: Past Medical History: Diagnosis Date Anemia Anxiety Depression Diabetes mellitus affecting Kidney stone Orthostatic intolerance POTS (postural orthostatic tachycardia syndrome) Past Surgical History: Past Surgical History: Procedure Laterality Date KIDNEY STONE SURGERY no incision Allergy(ies): No Known Allergies Family History: No family history on file. Social History: Social History Tobacco Use Smoking status: Never Smokeless tobacco: Never Vaping Use Vaping status: Never Used Substance Use Topics Alcohol use: Never Drug use: Never Portions of the information within this encounter were entered using an electronic dictation system. Best attempts were made to edit/proofread the information prior to note completion. Despite the review of information, some errors may remain. If there are questions related to the information contained within the note please contact the signing physician directly. I spent 45 minutes with the pt which involved coordination of care, medical evaluation, review of records, and/or counseling of the pt regarding his/her condition/disease state/prognosis on the date of this note. Associated attestation - Nely Brown MD - 02/22/2024 6:09 PM EDT I performed a history and physical examination of the patient. I have reviewed the patient's chart including pertinent history, medications, labs, radiology, and other reports. I reviewed the resident/TANIA's note, agree with the documented findings and plan of care (with modifications noted if any),and discussed the management plan. Consulted for: DM Patient has type 1 diabetes, admitted for preeclampsia with severe features, now status post on 02/21/2024. She received 4 mg of dexamethasone last night postop. She is recovering well, . Her baby was 9 pounds 5 ounces, struggling with hypoglycemia. She is on OmniPod 5/Dexcom G6. Initially on subcu insulin with MDI regimen for a few months then started pump. She has been managed by [facility] then [facility] while . She willbe going back to [facility] for follow-up. No major diabetes related complications. She has had fairly good glycemic control throughout her . Last A1c was 5.9% on 01/19. Antepartum pump settings reviewed: 12 AM basal 0.5, ICR 12 AM 14, 6 AM 10, ISF 12 AM 60, 6 AM 50. Currentpump settings reviewed. Basal 12 AM 0.6, 6 AM 0.55, 10 AM 0.6, 8 PM 0.65; ICR 12 AM 8, 6 AM 6, ISF 35. Patient had lunch today. She entered 45 g of carbs and was able to consume all of this. Most recentsensor glucose 118. She denies any nausea or vomiting. Some abdominal discomfort. No urinary complaints. She still has some lower extremity edema. Labs have been reviewed. Multiple family members present. Adult diet Regular; 4 carb choices (60 gm/meal) Lab Results Component Value Date HGBA1C 6.1 (H) 10/30/2023 Estimated Creatinine Clearance: 125 mL/min (A) (by C-G formula based on SCr of 0.48 mg/dL (L)). BP 124/80 Pulse 93 Temp 36.4 C (97.6 F) (Temporal) Resp 16 Ht 5' 6 (1.676 m) Wt 183 lb (83 kg) SpO2 95% Yes BMI 29.54 kg/m awake, alert, not in distress, no thyromegaly, RRR, intact pulses, clear breath sounds, abdomen soft, +binder, +BLE edema, no focal deficits, pump and sensor intact on left arm, normal mood and affect. Dx: Pre-existing type 1 diabetes mellitus, Insulin pump use Preeclampsia with severe features status post Plan: -Patient can continue insulin pump use -Will continue Omnipod 5 pump/Dexcom G6 CGM with Humalog -Will keep current pump settings for now -Advised patient to remain on automode -Would prefer to stay on more aggressive carb ratio today since patient received dexamethasone lastnight -Will start adjusting carb ratio of tomorrow morning to 12 AM 12 and 6 AM 8 then eventually to antepartum settings of 12 AM 14 and 6 AM 10; will need to adjust sensitivity settings as well -Can defer fingerstick glucose checks to extremes of sensor glucose readings above 300 or less than70 -Advised RN to document sensor glucose readings on patient's chart (before every meal and at bedtime) -management of hypoglycemia per protocol -counseled pt on DM management -discussed goals of treatment -carb controlled diet -FU with [facility] outpatient. Total time 75 minutes which include review of records, counseling, management, and coordination of care as documented in note. [id number] Consult note* Roxie Liz DO - 02/22/2024 9:20 AM EDT Associated Order(s): IP CONSULT TO ENDOCRINOLOGY Department of Internal Medicine Division of Endocrinology, Diabetes, & Metabolism Endocrinology Note Patient Name: Catalina Capellan : 2005 AGE: 18 y.o. Room/Bed: 4120/-[facility] A Admission Date: 02/18/2024 Visit Date: 02/22/2024 Reason for Endocrine Consult: Type 1 DM on Insulin pump Provider/Team Requesting Consult: OB PCP: No primary care provider on file. Outpt Field Talent Qualification Specialist: Yes Previously followed [facility], now managed by [facility] ASSESSMENT: T1DM on correction insulin Insulin pump use Preeclampsia with severe features s/p PLAN: - Patient is s/p and is doing well - I reviewed her current pump settings (documented in HPI). Her sugar is fairly controlled with current regimen - I also reviewed her pre pump settings from chart review (also documented on HPI) - Will consider switching her to pre- settings and will do so gradually over the course of2 days as she received some IV steroids and will likely need more insulin. - Please refer to HPI and orders for current insulin pump settings. - Previously followed [facility] and has an upcoming appointment with them. - Carb controlled diet - Hypoglycemia management per protocol ANTICIPATED ENDOCRINE HOME GOING RECOMMENDATIONS: Optimized for Discharge from Endocrine standpoint: No Home Going Endocrine Rx Recommendations-- In progress of gradually transitioning to pre pump settings (settings listed on HPI) [facility]. Patient states she will call and reschedule for earlier date SUBJECTIVE/HPI: CHIEF COMPLAINT: Chief Complaint Patient presents with Hypertension Patient is a 18 y.o F with PMHx significant for T1DM on insulin pump, anxiety/depression, Vit D deficiency who was admitted on 02/18/24 for preeclampsia with severe features and underwent on 02/21/24. Type of DM: Type 1 Onset of DM: 04/20/23 Home DM Medication Regimen: Humalog via Insulin pump, started in 05/2023 DM control (last A1c/glucose data): 6.1 [facility] managed her T1DM on insulin pump - omnipod Current pump settings are Basal rates 12A: 0.6 06A: 0.55 10A: 0.6 8P: 0.65 ICR 12A: 1:8 6A: 6 10A: 1.6 5P: 1.6 ISF MN 35 6A: 25 2P: 20 8P: 25 Target range MN, 0600, and 08:00 is 110. Currently, her blood sugars is running between 60s-157. Currently, her sugar has been running between 103-208. Has not eaten since her yesterday. Pre- insulin pump settings are Basal rates: 12 am: 0.5 units/hr 6 am: 0.5 units/hr 8 pm: 0.5 units/hr ICR 12A: 1:14 6A: 1:10 11A: 1:10 4P: 1:10 8P: 1:10 Blood glucose target: 12A-6A is 130 and 6 am to 12A is 120 mg/dl Currently VSS. Lab work with Na of 128, normal renal function, persistent transaminitis with persistent leukocytosis at 14 and hemoglobin of 8.5. Patient was seen and examined at the bedside. Denies chest pain, SOB, Lightheadedness, dizziness, nausea, vomiting, and diarrhea. Glucose Date/Time Value Ref Range Status 02/22/2024 06:54 AM 171 (H) 70 - 100 mg/dL Final 02/22/2024 12:16 AM 137 (H) 70 - 100 mg/dL Final 02/21/2024 09:04 PM 85 70 - 100 mg/dL Final 02/21/2024 04:56 PM 71 70 - 100 mg/dL Final 02/21/2024 12:04 PM 87 70 - 100 mg/dL Final 02/21/2024 08:45 AM 88 70 - 100 mg/dL Final Review of Systems Constitutional: Negative for activity change, chills, fatigue, fever and unexpected weight change. Respiratory: Negative for cough, chest tightness and shortness of breath. Cardiovascular: Positive for leg swelling. Negative for chest pain. Gastrointestinal: Negative for abdominal pain, nausea and vomiting. Genitourinary: Negative for dysuria, frequency and urgency. Skin: Negative for rash. Neurological: Negative for dizziness and light-headedness. Psychiatric/Behavioral: Negative for agitation. ROS negative except for those mentioned in HPI. OBJECTIVE: Vitals: 02/22/24 0210 02/22/24 0256 02/22/24 0350 02/22/24 0752 BP: 146/97 128/84 136/85 122/70 BP Location: Right arm Patient Position: Lying Pulse: 96 95 100 Resp: 17 18 18 Temp: 36.8 C (98.3 F) 37.2 C (98.9 F) TempSrc: Temporal Temporal SpO2: 98% 95% 97% Weight: Height: Physical Exam Constitutional: General: She is not in acute distress. Appearance: Normal appearance. She is not ill-appearing. HENT: Mouth/Throat: Mouth: Mucous membranes are moist. Cardiovascular: Rate and Rhythm: Normal rate and regular rhythm. Pulses: Normal pulses. Heart sounds: Normal heart sounds. No murmur heard. No gallop. Pulmonary: Effort: Pulmonary effort is normal. No respiratory distress. Breath sounds: Normal breath sounds. No wheezing or rales. Abdominal: General: Abdomen is flat. Bowel sounds are normal. There is no distension. Palpations: Abdomen is soft. Tenderness: There is no abdominal tenderness. There is no guarding. Musculoskeletal: Right lower leg: Edema present. Left lower leg: Edema present. Comments: 2+ pitting edema to the bilateral lower extremities Skin: General: Skin is warm and dry. Neurological: General: No focal deficit present. Mental Status: She is alert. Psychiatric: Mood and Affect: Mood normal. 24 hour intake/output: Intake/Output Summary (Last 24 hours) at 02/22/2024 0920 Last data filed at 02/22/2024 0650 Gross per 24 hour Intake 1610 ml Output 2356 ml Net -746 ml Diet: Adult diet Regular Medications (as per EMR): HomeMeds: Current Outpatient Medications Medication Instructions amoxicillin (Amoxil) 250 MG capsule 1 capsule, Oral, 3 times daily aspirin 81 mg, Oral, Daily cholecalciferol (Vitamin D3) 25 MCG (1000 UT) tablet Oral, Daily insulin lispro (HumaLOG) 100 UNIT/ML patient supplied pump SubCUTAneous, Continuous Vit-Fe Fumarate-FA ( 1+1 PO) 1 tablet, Oral, Daily Scheduled Meds:amoxicillin, 500 mg, Oral, 3 times per day [Held by provider] enoxaparin, 40 mg, SubCUTAneous, Daily ferrous sulfate, 325 mg, Oral, BID WC [START ON 02/23/2024] ibuprofen, 600 mg, Oral, q6h ketorolac, 30 mg, IntraVENous, q6h measles, mumps and rubella, 0.5 mL, SubCUTAneous, Prior to discharge NIFEdipine XL, 30 mg, Oral, Nightly vitamin, 1 tablet, Oral, Daily sodium chloride 0.9%, 5-40 mL, IntraVENous, 2 times per day Tdap-Dtap, 0.5 mL, IntraMUSCular, Prior to discharge Continuous Infusions:insulin lispro, magnesium sulfate, 2,000 mg/hr, Last Rate: 2,000 mg/hr (02/22/24 0606) oxytocin, 125 elvin-units/min PRN Meds:PRN medications: acetaminophen, calcium gluconate, dextrose, dextrose, diphenhydrAMINE, docusate sodium, famotidine, glucagon (rDNA), glucose, HYDROmorphone OR HYDROmorphone, lanolin, naloxone, ondansetron ODT OR ondansetron, oxyCODONE OR oxyCODONE, oxytocin, simethicone, sodium chloride, sodium chloride 0.9% Diagnostic Workup: I reviewed pertinent Laboratory results, Radiographic results, and Other Clinical Notes at the timeof today's encounter. Labs: No components found for: LABA1C No components found for: EAG Lab Results Component Value Date NA 128 (L) 02/22/2024 K 3.9 02/22/2024 CL 104 02/22/2024 CO2 20 (L) 02/22/2024 BUN 4 (L) 02/22/2024 CREATININE 0.48 (L) 02/22/2024 GLUCOSE 157 (H) 02/22/2024 CALCIUM 7.4 (L) 02/22/2024 No results found for: CHLPL, CHOL No results found for: TRIG No results found for: HDL No results found for: LDLCALC No results found for: VLDL No results found for: CHOLHDLRATIO No results found for: [id number] Lab Results Component Value Date TSH 0.947 10/30/2023 THYROIDAB <3.0 09/01/2023 Radiology reportsas per the Radiologist Radiology: ECG 12 lead Result Date: 02/21/2024 Sinus rhythm Nonspecific T abnormalities, anterior leads Electronically Signed On 02-21-2024 18:06:36 EDT by Amanda Gar POCT glucose meter Result Date: 02/19/2024 Performed by: [facility], [address] [place] [id number] CLIA ID: [id number] POCT glucose meter Result Date: 02/19/2024 Performed by: [facility], [address] [place] [id number] CLIA ID: [id number] POCT glucose meter Result Date: 02/19/2024 Performed by: [facility], [address] [place] [id number] CLIA ID: [id number] POCT glucose meter Result Date: 02/19/2024 [facility] by: [facility], [address] [place] [id number] CLIA ID: [id number] POCT glucose meter Result Date: 02/19/2024 Performed by: [facility], [address] [place] [id number] CLIA ID: [id number] POCT glucose meter Result Date: 02/19/2024 [facility]formed by: [facility], [address] [place] [id number] CLIA ID: [id number] POCT glucose meter Result Date: 02/19/2024 Performed by: [facility], [address] [place] [id number] CLIA ID: [id number] POCT glucose meter Result Date: 02/18/2024 Performed by: [facility], [address] [place] [id number] CLIA ID: [id number] POCT glucose meter Result Date: 02/18/2024 Performed by: [facility], [address] [place] [id number] CLIA ID: [id number] History/Other: Past Medical History: Past Medical History: Diagnosis Date Anemia Anxiety Depression Diabetes mellitus affecting Kidney stone Orthostatic intolerance POTS (postural orthostatic tachycardia syndrome) Past Surgical History: Past Surgical History: Procedure Laterality Date KIDNEY STONE SURGERY no incision Allergy(ies): No Known Allergies Family History: No family history on file. Social History: Social History Tobacco Use Smoking status: Never Smokeless tobacco: Never Vaping Use Vaping status: Never Used Substance Use Topics Alcohol use: Never Drug use: Never Portions of the information within this encounter were entered using an electronic dictation system. Best attempts were made to edit/proofread the information prior to note completion. Despite the review of information, some errors may remain. If there are questions related to the information contained within the note please contact the signing physician directly. I spent 45 minutes with the pt which involved coordination of care, medical evaluation, review of records, and/or counseling of the pt regarding his/her condition/disease state/prognosis on the date of this note. Associated attestation - Nely Brown MD - 02/22/2024 6:09 PM EDT I performed a history and physical examination of the patient. I have reviewed the patient's chart including pertinent history, medications, labs, radiology, and other reports. I reviewed the resident/TANIA's note, agree with the documented findings and plan of care (with modifications noted if any),and discussed the management plan. Consulted for: DM Patient has type 1 diabetes, admitted for preeclampsia with severe features, now status post on 02/21/2024. She received 4 mg of dexamethasone last night postop. She is recovering well, . Her baby was 9 pounds 5 ounces, struggling with hypoglycemia. She is on OmniPod 5/Dexcom G6. Initially on subcu insulin with MDI regimen for a few months then started pump. She has been managed by [facility] then [facility] while . She willbe going back to [facility] for follow-up. No major diabetes related complications. She has had fairly good glycemic control throughout her . Last A1c was 5.9% on 01/19. Antepartum pump settings reviewed: 12 AM basal 0.5, ICR 12 AM 14, 6 AM 10, ISF 12 AM 60, 6 AM 50. Currentpump settings reviewed. Basal 12 AM 0.6, 6 AM 0.55, 10 AM 0.6, 8 PM 0.65; ICR 12 AM 8, 6 AM 6, ISF 35. Patient had lunch today. She entered 45 g of carbs and was able to consume all of this. Most recentsensor glucose 118. She denies any nausea or vomiting. Some abdominal discomfort. No urinary complaints. She still has some lower extremity edema. Labs have been reviewed. Multiple family members present. Adult diet Regular; 4 carb choices (60 gm/meal) Lab Results Component Value Date HGBA1C 6.1 (H) 10/30/2023 Estimated Creatinine Clearance: 125 mL/min (A) (by C-G formula based on SCr of 0.48 mg/dL (L)). BP 124/80 Pulse 93 Temp 36.4 C (97.6 F) (Temporal) Resp 16 Ht 5' 6 (1.676 m) Wt 183 lb (83 kg) SpO2 95% Yes BMI 29.54 kg/m awake, alert, not in distress, no thyromegaly, RRR, intact pulses, clear breath sounds, abdomen soft, +binder, +BLE edema, no focal deficits, pump and sensor intact on left arm, normal mood and affect. Dx: Pre-existing type 1 diabetes mellitus, Insulin pump use Preeclampsia with severe features status post Plan: -Patient can continue insulin pump use -Will continue Omnipod 5 pump/Dexcom G6 CGM with Humalog -Will keep current pump settings for now -Advised patient to remain on automode -Would prefer to stay on more aggressive carb ratio today since patient received dexamethasone lastnight -Will start adjusting carb ratio of tomorrow morning to 12 AM 12 and 6 AM 8 then eventually to antepartum settings of 12 AM 14 and 6 AM 10; will need to adjust sensitivity settings as well -Can defer fingerstick glucose checks to extremes of sensor glucose readings above 300 or less than70 -Advised RN to document sensor glucose readings on patient's chart (before every meal and at bedtime) -management of hypoglycemia per protocol -counseled pt on DM management -discussed goals of treatment -carb controlled diet -FU with [facility] outpatient. Total time 75 minutes which include review of records, counseling, management, and coordination of care as documented in note. * Cathryn Duran - 02/22/2024 9:03 AM EDT Notified [facility] of Endocrinology consult by Secure Chat@ 09:00am Romy ROYAL documented in this [facility]08-26-2024 Consult note* Cathryn Duran - 02/22/2024 9:03 AM EDT Notified [facility] of Endocrinology consult by Secure Chat@ 09:00am Romy ROYAL [id number] Nurse Note* Margareth Orellana RN - 02/22/2024 5:29 AM EDT Dilia discharge videos assigned at this time. [id number] Nurse Note* Margareth Orellana RN - 02/22/2024 4:20 AM EDT RN went over admission folder/paperwork with pt and FOB at this time. RN educated pt and FOB on theinfant blood sugar protocol due to being LGA and pt being T1DM. RN explained to the pt that the infant needs 3 blood sugars in a row before feedings 45 or greater. RN explained to the pt about the infant needing the car seat challenge completed before is discharged and the infant will be on q4 hour vitals. Pt understands and has no questions or concerns at this time. [place] [id number] Nurse Note* Margareth Orellana RN - 02/22/2024 3:50 AM EDT RN at bedside for admission. RN oriented pt to room and call light. Call light and bedside table within reach. [id number] Note* Op Note - Jolanta Murphy MD - 02/21/2024 10:23 PM EDT Images from the original note were not included. Operative Note Patient: Catalina Capellan : 2005 Date of Procedure: 02/21/2024 Principal Problem: Preeclampsia, third trimester PREOPERATIVE DIAGNOSES: 1. at 36w6d 2. PreEwSF 3. T1DM 4. Polyhydramnios 5. Chronic Anemia 6. POTS 7. Hx Kidney Stone 8. Tooth Pain POSTOPERATIVE DIAGNOSES: 1. Same 2. Unscheduled primary 3. Living infant, male PROCEDURE: Primary low transverse section SURGEON: Dr. Odonnell ASST: Dr. Murphy ANESTHESIA: spinal ANTIBIOTIC(S): 2g Ancef FINDINGS: Normal appearing uterus, ovaries and fallopian tubes FLUIDS: 1500 ml crystalloids URINE: 100 ml EBL: 600 ml QBL: Quantitative Blood Loss (mL): 556 mL DRAINS: gamez catheter SPECIMENS: none COMPLICATIONS: none CONDITION: good, transferred to : post anesthesia recovery FINDINGS: Live male infant, occiput anterior APGARS 1 min: 4 5 min: 6 10 min: 9 Weight: 4160 grams Tubes and ovaries: within normal limits Description: normal INDICATION FOR PROCEDURE Patient admitted to on 02/17 for elevated blood pressures and T1DM. Patient developed PreEwSF based on RUQ pain and elevated LFT's. Patient was moved to a labor bed on 02/20 however inductionwas not started due to worsening RUQ pain and concern for maternal health throughout labor course. Therefore, decision was made to proceed with primary section. She was was consented for a section and was agreeable to blood products as medically indicated. This was an unscheduled,non-emergent section. DETAILS OF PROCEDURE: Patient was brought into the operating room and she was placed in the supine position slightly tilted to the left. The abdomen was prepped and draped in the usual manner. Anesthesia level was checkedand was found to be adequate. The abdomen was entered through a pfannenstiel incision. The incisionwas carried through the subcutaneous tissue to the fascia which was nicked in the midline and carried transversely using valdes scissors. Kochers were used to grasp the edges of the fascia and sharp and blunt dissection used to reflect the underlying rectus abdominis muscles. The muscles were in the midline bluntly exposing the parietal peritoneum. The peritoneum was entered bluntly. The peritoneal incision was extended bluntly with good visualization of bladder. Bladder retractor was placed as well as Howell retractor. The lower uterine segment was opened with a scalpel. The amniotic cavity was entered and copious amount of clear amniotic fluid was noted. Bladder retractor and Howell retractor were removed, andbaby was delivered from the cephalic presentation with fundal pressure without difficulty. The babywas handed over to the NICU personnel standing by. Placenta was extracted intact with gentle traction. The uterus was exteriorized and wrapped in a wet lap. The uterine cavity was swept and cleared of all clots and debris using a dry lap. The uterine incision was closed using a continuous locked suture of 0 Monocryl. A second layer was not performed . Hemostasis was ensured. The uterus was replaced in the abdomen. Hemostasis of the operative field was ensured and the gutters were cleared of all clots and debris. The peritoneum and overlying rectus muscles were well approximated and did not require plication midline. A small rectalhematoma was present on the left side and cauterized. Fascia was closed with 0 Looped PDS in a running fashion. Subcutaneous closure was performed with 3-0 Monocryl in an interrupted fashion. Hemostasis was ensured. Skin closure was performed with 4-0 Vicryl on a Case needle, steri- strips, and dressing. Sponge, needle and instrument counts were correct twice. Patient was transferred to the recovery room in satisfactory stable condition. Jolanta Murphy MD 02/21/2024 11:27 PM LABOR DELIVERY ??? SCD's ONLY (labor through ambulation) SCD's PLUS Prophylactic Anticoagulation until discharge SCD's PLUS Prophylactic Anticoagulation for 6 weeks SCD's PLUS Therapeutic Anticoagulation for 6 weeks Vaginal Delivery [] BMI ? 40 kg/m2 Delivery All patients Vaginal Delivery [] BMI ? 40 kg/m2 AND [] Antepartum hospitalization ? 72 hours within the past month Delivery 1 Major Risk Factor: [] BMI ? 35 kg/m2 [] Low Risk Thrombophilia [] PPH+RBCs, IR, or operation [] Infection+Antibiotics [] Antepartum hospitalization ? 72 hours within the past month [] PMH: Sickle Cell, SLE, Cardiac Dz, Active IBD, Active Cancer, Nephrotic Syndrome OR 2 Minor Risk Factors: [] Multiple gestation [] Age > 40 [] PPH ? 1,000cc [] (+)FMH of VTE [] Smoker [] Preeclampsia [] BMI ? 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), Prothrombin (homozygous), FVL+Prothrombin (heterozygous), Antithrombin III, APLS VTE Prophylaxis: Not Indicated Associated attestation - Pham Odonnell DO - 02/23/2024 7:56 AM EDT Procedures or Surgery: I was present for all guerrier elements of the procedure or surgery as described in the resident note. [employer] Phone: [phone]) 434-610508-25-2024 Note* Op Note - Jolanta Murphy MD - 02/21/2024 10:23 PM EDT Images from the original note were not included. Operative Note Patient: Catalina Capellan : 2005 Date of Procedure: 02/21/2024 Principal Problem: Preeclampsia, third trimester PREOPERATIVE DIAGNOSES: 1. at 36w6d 2. PreEwSF 3. T1DM 4. Polyhydramnios 5. Chronic Anemia 6. POTS 7. Hx Kidney Stone 8. Tooth Pain POSTOPERATIVE DIAGNOSES: 1. Same 2. Unscheduled primary 3. Living , male PROCEDURE: Primary low transverse section SURGEON: Dr. Odonnell ASST: Dr. Murphy ANESTHESIA: spinal ANTIBIOTIC(S): 2g Ancef FINDINGS: Normal appearing uterus, ovaries and fallopian tubes FLUIDS: 1500 ml crystalloids URINE: 100 ml EBL: 600 ml QBL: Quantitative Blood Loss (mL): 556 mL DRAINS: gamez catheter SPECIMENS: none COMPLICATIONS: none CONDITION: good, transferred to : post anesthesia recovery FINDINGS: Live male infant, occiput anterior APGARS 1 min: 4 5 min: 6 10 min: 9 Weight: 4160 grams Tubes and ovaries: within normal limits Description: normal INDICATION FOR PROCEDURE Patient admitted to on 02/17 for elevated blood pressures and T1DM. Patient developed PreEwSF based on RUQ pain and elevated LFT's. Patient was moved to a labor bed on 8/25 however inductionwas not started due to worsening RUQ pain and concern for maternal health throughout labor course. Therefore, decision was made to proceed with primary section. She was was consented for a section and was agreeable to blood products as medically indicated. This was an unscheduled,non-emergent section. DETAILS OF PROCEDURE: Patient was brought into the operating room and she was placed in the supine position slightly tilted to the left. The abdomen was prepped and draped in the usual manner. Anesthesia level was checkedand was found to be adequate. The abdomen was entered through a pfannenstiel incision. The incisionwas carried through the subcutaneous tissue to the fascia which was nicked in the midline and carried transversely using valdes scissors. Kochers were used to grasp the edges of the fascia and sharp and blunt dissection used to reflect the underlying rectus abdominis muscles. The muscles were in the midline bluntly exposing the parietal peritoneum. The peritoneum was entered bluntly. The peritoneal incision was extended bluntly with good visualization of bladder. Bladder retractor was placed as well as Howell retractor. The lower uterine segment was opened with a scalpel. The amniotic cavity was entered and copious amount of clear amniotic fluid was noted. Bladder retractor and Howell retractor were removed, andbaby was delivered from the cephalic presentation with fundal pressure without difficulty. The babywas handed over to the NICU personnel standing by. Placenta was extracted intact with gentle traction. The uterus was exteriorized and wrapped in a wet lap. The uterine cavity was swept and cleared of all clots and debris using a dry lap. The uterine incision was closed using a continuous locked suture of 0 Monocryl. A second layer was not performed . Hemostasis was ensured. The uterus was replaced in the abdomen. Hemostasis of the operative field was ensured and the gutters were cleared of all clots and debris. The peritoneum and overlying rectus muscles were well approximated and did not require plication midline. A small rectalhematoma was present on the left side and cauterized. Fascia was closed with 0 Looped PDS in a running fashion. Subcutaneous closure was performed with 3-0 Monocryl in an interrupted fashion. Hemostasis was ensured. Skin closure was performed with 4-0 Vicryl on a Case needle, steri- strips, and dressing. Sponge, needle and instrument counts were correct twice. Patient was transferred to the recovery room in satisfactory stable condition. Jolanta Murphy MD 02/21/2024 11:27 PM LABOR DELIVERY ??? SCD's ONLY (labor through ambulation) SCD's PLUS Prophylactic Anticoagulation until discharge SCD's PLUS Prophylactic Anticoagulation for 6 weeks SCD's PLUS Therapeutic Anticoagulation for 6 weeks Vaginal Delivery [] BMI ? 40 kg/m2 Delivery All patients Vaginal Delivery [] BMI ? 40 kg/m2 AND [] Antepartum hospitalization ? 72 hours within the past month Delivery 1 Major Risk Factor: [] BMI ? 35 kg/m2 [] Low Risk Thrombophilia [] PPH+RBCs, IR, or operation [] Infection+Antibiotics [] Antepartum hospitalization ? 72 hours within the past month [] PMH: Sickle Cell, SLE, Cardiac Dz, Active IBD, Active Cancer, Nephrotic Syndrome OR 2 Minor Risk Factors: [] Multiple gestation [] Age > 40 [] PPH ? 1,000cc [] (+)FMH of VTE [] Smoker [] Preeclampsia [] BMI ? 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), Prothrombin (homozygous), FVL+Prothrombin (heterozygous), Antithrombin III, APLS VTE Prophylaxis: Not Indicated Associated attestation - Pham Odonnell DO - 02/23/2024 7:56 AM EDT Procedures or Surgery: I was present for all guerrier elements of the procedure or surgery as described in the resident note. [employer] Phone: [phone] 345-865408-25-2024 Note* Significant Event - Jolanta Murphy MD - 02/21/2024 9:33 PM EDT Safety Huddle Patient admitted for IOL-PreEwSF and T1DM. Due to significant RUQ and epigastric pain along with elevated LFT's, induction not started due to concerns with prolonged labor in regards to maternal health. Plan to proceed with a primary cesareansection for PreEwSF. Risks and benefits discussed with the patient including the risk of injury to surrounding structures, bleeding and infection. Patient amendable to receiving blood products if medically indicated. Consent form signed. Safety Huddle performed with Attending provider, OB broker in charge, OB anesthesia, resident team and primary RN. All in agreement for PCD-PreEwSF. Patient will be for2g Ancef. Spinal will be placed. This will be an unscheduled non-emergent primary section. Jolanta Murphy MD 02/21/2024 9:33 PM [id number] Note* Significant Event - Jolanta Murphy MD - 02/21/2024 9:33 PM EDT Safety Huddle Patient admitted for IOL-PreEwSF and T1DM. Due to significant RUQ and epigastric pain along with elevated LFT's, induction not started due to concerns with prolonged labor in regards to maternal health. Plan to proceed with a primary cesareansection for PreEwSF. Risks and benefits discussed with the patient including the risk of injury to surrounding structures, bleeding and infection. Patient amendable to receiving blood products if medically indicated. Consent form signed. Safety Huddle performed with Attending provider, OB broker in charge, OB anesthesia, resident team and primary RN. All in agreement for PCD-PreEwSF. Patient will be for2g Ancef. Spinal will be placed. This will be an unscheduled non-emergent primary section. Jolanta Murphy MD 02/21/2024 9:33 PM [facility] [id number] Note* Significant Event - Jolanta Murphy MD - 02/21/2024 8:32 PM EDT Notified by RN of persistent severe range BP. Labetalol 20 mg ordered at this time. [facility] [id number] Note* Significant Event - Jolanta Murphy MD - 02/21/2024 8:32 PM EDT Notified by RN of persistent severe range BP. Labetalol 20 mg ordered at this time. [facility] [id number] Note* Significant Event - Nina Renee DO - 02/21/2024 6:37 PM EDT On transfer from [facility] to L&D for induction of labor repeat labs were drawn including CBC, CMP, LDH, Coagulation studies. Significant lab results as follows: PT/INR/aPTT: wnl Fibrinogen: 533 LDH: 403 AST: 154 ALT 75 Plt: 111 Patient now meets criteria for PreEwSF with LFTs 2x ULN. I evaluated the patient at bedside. She does have epigastric pain that radiates to her right side and beneath her right rib cage. It does alsoradiate to the left side, but not as significantly compared to her right. I updated Dr. Rodriguez at this time, will defer any imaging at this time and start induction process still. We will plan to repeat labs at midnight with CBC, CMP, LDH, Coagulation studies. Will start magnesium sulfate for seizure prophylaxis, 4g bolus followed by 2g/hr. This information was all signed out to the night team. Associated attestation - Hugo Rodriguez MD - 02/22/2024 8:33 AM EDT See my note as well agree with plan Hugo Rodriguez MD [facility] Phone: [phone]) 572-963708-25-2024 Note* Significant Event - Nina Renee DO - 02/21/2024 6:37 PM EDT On transfer from [facility] to L&D for induction of labor repeat labs were drawn including CBC, CMP, LDH, Coagulation studies. Significant lab results as follows: PT/INR/aPTT: wnl Fibrinogen: 533 LDH: 403 AST: 154 ALT 75 Plt: 111 Patient now meets criteria for PreEwSF with LFTs 2x ULN. I evaluated the patient at bedside. She does have epigastric pain that radiates to her right side and beneath her right rib cage. It does alsoradiate to the left side, but not as significantly compared to her right. I updated Dr. Rodriguez at this time, will defer any imaging at this time and start induction process still. We will plan to repeat labs at midnight with CBC, CMP, LDH, Coagulation studies. Will start magnesium sulfate for seizure prophylaxis, 4g bolus followed by 2g/hr. This information was all signed out to the night team. Associated attestation - Hugo Rodriguez MD - 02/22/2024 8:33 AM EDT See my note as well agree with plan Hugo Rodriguez MD [facility] [employer] [facility] Phone: [phone]) 267-283908-23-2024 Note* Care Coordination - Breanne Mendoza RN - 02/19/2024 1:21 PM EDT Date: 02/19/2024 Name: Catalina Capellan : 2005 [facility] Patient Information Primary Caregiver: Self Accompanied by/Relationship: S/O;Family Marital Status: Significant Other Support System: SO/Family Jewish/Cultural Factors: None Activities of Daily Living Communication: See demographics Living Arrangements Current Residence: Private residence Lives With: S/O; Family Support System: S/O; Family Income Information Income Source: Employed Financial Resource Strain How hard is it for you to pay for the very basics like food, housing, medical care and heating? N/A Housing Stability In the last 12 months, was there a time when you did not have a steady place to sleep or slept in ashelter (including now)? No Transportation Needs Has the lack of Transportation kept you from medical appointments? No In the past 12 months, has the lack of transportation kept you from meetings, work, or from gettingthings needed for daily living? No Food Insecurity Within the past 12 months, have you worried that your food would run out before you got the money to buy more? No Stress Do you feel stress - tense, restless, nervous, or anxious, or unable to sleep at night because you mind is troubled all the time? Mood stable Referral To Financial Resources: N/A Community Resources: PNU folder given upon admission to PNU Unit Social Work: N/A CLP: N/A Medical Information admitted at 36/3 weeks for elevated BP and T1DM; PreEwoSF; Polyhydramnios; POTS; hx kidney stone Discharge Plan Home or Community Resources: PNU Admission folder given upon admission to unit Equipment: N/A Education Given: PNU admit folder and see Education Tab Additional Information: N/A Mental Health Services: N/A Developmental Delay: N/A Children's Services: N/A [facility] [id number] Note* Care Coordination - Breanne Mendoza RN - 02/19/2024 1:21 PM EDT Date: 02/19/2024 Name: Catalina Capellan : 2005 [facility] Information [place] Patient Information Primary Caregiver: Self Accompanied by/Relationship: S/O;Family Marital Status: Significant Other Support System: SO/Family Jewish/Cultural Factors: None Activities of Daily Living Communication: See demographics Living Arrangements Current Residence: Private residence Lives With: S/O; Family Support System: S/O; Family Income Information Income Source: Employed Financial Resource Strain How hard is it for you to pay for the very basics like food, housing, medical care and heating? N/A Housing Stability In the last 12 months, was there a time when you did not have a steady place to sleep or slept in ashelter (including now)? No Transportation Needs Has the lack of Transportation kept you from medical appointments? No In the past 12 months, has the lack of transportation kept you from meetings, work, or from gettingthings needed for daily living? No Food Insecurity Within the past 12 months, have you worried that your food would run out before you got the money to buy more? No Stress Do you feel stress - tense, restless, nervous, or anxious, or unable to sleep at night because you mind is troubled all the time? Mood stable Referral To Financial Resources: N/A Community Resources: PNU folder given upon admission to PNU Unit Social Work: N/A CLP: N/A Medical Information admitted at 36/3 weeks for elevated BP and T1DM; PreEwoSF; Polyhydramnios; POTS; hx kidney stone Discharge Plan Home or Community Resources: PNU Admission folder given upon admission to unit Equipment: N/A Education Given: PNU admit folder and see Education Tab Additional Information: N/A Mental Health Services: N/A Developmental Delay: N/A Children's Services: N/A [facility] [id number] History and physical note* Dahlia Bullard, - 02/18/2024 3:40 PM EDT Department of Maternal Medicine History and Physical CHIEF COMPLAINT: elevated blood pressure, T1DM HISTORY OF PRESENT ILLNESS: The patient is a 18 y.o. female at 36w3d admitted with chief complaint as above. Pt reports elevated BP at home last night of 162/112. She denies vision change, CAT, SOB, CP, RUQ pain. BP in triage 156/105. Reports contractions starting around 11 am, q5 min with increasing frequency. Mild headache intermittently over last few days, resolves with Excedrin. Recently has tooth extraction, now taking amoxicillin. Labs significant for anemia, elevated LFTs AST 71/ALT 49, however not 2x upper limit of normal. UPCwnl. OB History 2 Para 0 Term 0 0 AB 1 Living 0 SAB 1 IAB 0 Ectopic 0 Multiple 0 Live Births 0 Patient presents with a chief complaint as above and is being admitted for PreEwoSF, concern for increasing LFTs. Transport: No Prior Hospitalizations: Yes Estimated Due Date: Estimated Date of Delivery: 03/14/24 CARE: Complications: anemia, preeclampsia/eclampsia, and diabetes mellitus PAST OB HISTORY: OB History 2 Para 0 Term 0 0 AB 1 Living 0 SAB 1 IAB 0 Ectopic 0 Multiple 0 Live Births 0 Detailed OB History G1 SAB G2 current Past Medical History: Past Medical History: Diagnosis Date Anemia Anxiety Depression Diabetes mellitus affecting Kidney stone Orthostatic intolerance POTS (postural orthostatic tachycardia syndrome) Past Surgical History: Past Surgical History: Procedure Laterality Date KIDNEY STONE SURGERY no incision Allergies: Patient has no known allergies. Social History: Social History Socioeconomic History Marital status: Significant Other Spouse name: Kevin BARR Number of children: Not on file Years of education: Not on file Highest education level: Not on file Occupational History Not on file Tobacco Use Smoking status: Never Smokeless tobacco: Never Vaping Use Vaping status: Never Used Substance and Sexual Activity Alcohol use: Never Drug use: Never Sexual activity: Yes Other Topics Concern Not on file Social History Narrative Not on file Social Determinants of Health Financial Resource Strain: Not on file Food Insecurity: No Food Insecurity (01/09/2024) Hunger Vital Sign Worried About Running Out of Food in the Last Year: Never true Ran Out of Food in the Last Year: Never true Transportation Needs: No Transportation Needs (01/09/2024) PRAPARE - Transportation Lack of Transportation (Medical): No Lack of Transportation (Non-Medical): No Physical Activity: Not on file Stress: Not on file Social Connections: Not on file Intimate Partner Violence: Not At Risk (02/18/2024) Humiliation, Afraid, Rape, and Kick questionnaire Fear of Current or Ex-Partner: No Emotionally Abused: No Physically Abused: No Sexually Abused: No Housing Stability: Low Risk (01/09/2024) Housing Stability Vital Sign Unable to Pay for Housing in the Last Year: No Number of Times Moved in the Last Year: 1 Homeless in the Last Year: No Family History: No family history on file. Medications Prior to Admission: Medications Prior to Admission Medication Sig Dispense Refill Last Dose amoxicillin (Amoxil) 250 MG capsule Take 1 capsule by mouth 3 times daily. 02/18/2024 aspirin 81 MG EC tablet Take 81 mg by mouth daily. 02/17/2024 cholecalciferol (Vitamin D3) 25 MCG (1000 UT) tablet Take by mouth daily. 02/17/2024 Vit-Fe Fumarate-FA ( 1+1 PO) Take 1 tablet by mouth daily. 02/17/2024 insulin lispro (HumaLOG) 100 UNIT/ML patient supplied pump Inject under the skin continuous. REVIEW OF SYSTEMS: Constitutional: Negative for chills and fever. Respiratory: Negative for chest tightness and shortness of breath. Cardiovascular: Negative for chest pain and palpitations. Gastrointestinal: Negative for abdominal distention, abdominal pain, nausea and vomiting. Genitourinary: Negative for vaginal bleeding and vaginal discharge. Neurological: Negative for dizziness and light-headedness. Labs: CBC, CMP, UPC, Type and Screen PHYSICAL EXAM: Vitals: 02/18/24 1425 02/18/24 1430 02/18/24 1449 02/18/24 1500 BP: 156/105 Pulse: 85 81 91 75 Resp: 18 Temp: 36.5 C (97.7 F) TempSrc: Oral SpO2: 100% Weight: 183 lb (83 kg) Height: 5' 6 (1.676 m) General appearance: awake, alert, cooperative, no apparent distress, and appears stated age Neurologic: Awake, alert, oriented to name, place and time. Lungs: No increased work of breathing, good air exchange Abdomen: Soft, non tender, gravid, consistent with her gestational age Fetus: EFW 2037 grams, which is at the 75% for this gestational age. AC is at the 98% US from today not yet available to view. Per Dr. Rodriguez 02/03 BPP today Presentation: Cephalic genetics: 09/09/2023 CYSTIC FIBROSIS: Negative SMA: Negative FRAGILE X: Negative ASSESSMENT AND PLAN: LABOR DELIVERY ??? SCD's ONLY (labor through ambulation) SCD's PLUS Prophylactic Anticoagulation until discharge SCD's PLUS Prophylactic Anticoagulation for 6 weeks SCD's PLUS Therapeutic Anticoagulation for 6 weeks Vaginal Delivery [] BMI ? 40 kg/m2 Delivery All patients Vaginal Delivery [] BMI ? 40 kg/m2 AND [] Antepartum hospitalization ? 72 hours within the past month Delivery 1 Major Risk Factor: [] BMI ? 35 kg/m2 [] Low Risk Thrombophilia [] PPH+RBCs, IR, or operation [] Infection+Antibiotics [] Antepartum hospitalization ? 72 hours within the past month [] PMH: Sickle Cell, SLE, Cardiac Dz, Active IBD, Active Cancer, Nephrotic Syndrome OR 2 Minor Risk Factors: [] Multiple gestation [] Age > 40 [] PPH ? 1,000cc [] (+)FMH of VTE [] Smoker [] Preeclampsia [] BMI ? 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), Prothrombin (homozygous), FVL+Prothrombin (heterozygous), Antithrombin III, APLS VTE Prophylaxis: not indicated Admission: Admit to Antepartum (PNU) FHR: 1 hour TID Labs: GBS ordered, but not yet obtained GC/CT ordered, but not yet obtained Urine ordered, but not yet obtained FFN not obtained Type&Screen ordered, but not yet obtained Consults: MFM Imaging: Not indicated Diet: Gestational CCD Testing: TBD Timing and Route of Delivery: IOL 02/22/24 if not developing PreEwSF Medications: Neuroprotection Not indicated Tocolysis Not indicated Antibiotics Not indicated Steroids: Betamethasone - not indicated PreEwoSF - Met criteria on prior admission with mild range BP and elevated UPC of 0.34 during last PNU admission 01/06-01/08 - PreE labs ordered on admission, CBC wnl. CMP notable for AST/ALT both elevated at 71/49, but not 2x upper limit of normal - UPC 0.19 today - Asymptomatic - Plan to repeat CBC, CMP in AM and if LFTs continue to rise, will recommend IOL at that time - BP high mild range, no severe range Bps noted - Patient agreeable with this plan T1DM - Follows with cMFM for management - Omnipod and dexcom G6 in place - A1C 10/30/23 6.1 - BGTs on admission well controlled at 93, will keep current pump settings in place - Dexcom reviewed by Dr. Rodriguez and overall well controlled - Plan for BGTs Fasting, pre and 1hr PP and 0300 Polyhydramnios - ALLI 30 on 02/[address] Rodriguez Chronic Anemia - CBC on admission 10.1 - PO iron - Asx on admission POTS - Asymptomatic on admission Hx Kidney Stone - Had lithotripsy and stent in Jul 2022 Tooth Pain - Recently had tooth removed, will continue amoxicillin - Asx on admissoin IUP @ 36w3d - Dating by 1st trimester US - Cephalic on 02/18/24 - Monitorinhr TID - Diet: Gestational CCD - BMZ deferred Discussed with Dr Rodriguez, who agrees with plan. Dahlia Bullard, 02/18/2024, 5:04 PM Cc: Hugo Rodriguez MD Associated attestation - Hugo Rodriguez MD - 02/18/2024 9:22 PM EDT I independently saw and evaluated the patient. I agree with the findings and plan of care as documented in the resident's note. No complaints patient's mother and FOB present no headache currently see resident HPI as well 18 yr old at 36 3/7 GA with the following: PreEwoSF no signs of pre-e with SF but given LFT elevation will admit and observe if increasing tomorrow plan on IOL, UPC of 0.19 today no HELLP if stable plan on 37 week IOL T1DM reviewed dexcom and doing well with control no adjustments made and will look daily now Polyhydramnios Alli of 30 today on BPP POTS stable History of kidney stone Tooth pain recent tooth removal continue amoxicillin for now Prematurity family questioning if delivery occurs will baby go to NICU long discussion about latepreterm vs early term delivery and at high risk for NICU admission for BGT and possible lung maturity issues, not a candidate for steroids I spent 40 minutes in the visit today on the floor reviewing the chart, discussing the case with the residency staff and nursing Hugo Rodriguez MD [id number] History and physical note* Dahlia Bustillosdev, DO - 02/18/2024 3:40 PM EDT Department of Maternal Medicine History and Physical CHIEF COMPLAINT: elevated blood pressure, T1DM HISTORY OF PRESENT ILLNESS: The patient is a 18 y.o. female at 36w3d admitted with chief complaint as above. Pt reports elevated BP at home last night of 162/112. She denies vision change, CAT, SOB, CP, RUQ pain. BP in triage 156/105. Reports contractions starting around 11 am, q5 min with increasing frequency. Mild headache intermittently over last few days, resolves with Excedrin. Recently has tooth extraction, now taking amoxicillin. Labs significant for anemia, elevated LFTs AST 71/ALT 49, however not 2x upper limit of normal. UPCwnl. OB History 2 Para 0 Term 0 0 AB 1 Living 0 SAB 1 IAB 0 Ectopic 0 Multiple 0 Live Births 0 Patient presents with a chief complaint as above and is being admitted for PreEwoSF, concern for increasing LFTs. Transport: No Prior Hospitalizations: Yes Estimated Due Date: Estimated Date of Delivery: 03/14/24 CARE: Complications: anemia, preeclampsia/eclampsia, and diabetes mellitus PAST OB HISTORY: OB History 2 Para 0 Term 0 0 AB 1 Living 0 SAB 1 IAB 0 Ectopic 0 Multiple 0 Live Births 0 Detailed OB History G1 SAB G2 current Past Medical History: Past Medical History: Diagnosis Date Anemia Anxiety Depression Diabetes mellitus affecting Kidney stone Orthostatic intolerance POTS (postural orthostatic tachycardia syndrome) Past Surgical History: Past Surgical History: Procedure Laterality Date KIDNEY STONE SURGERY no incision Allergies: Patient has no known allergies. Social History: Social History Socioeconomic History Marital status: Significant Other Spouse name: Kevin BARR Number of children: Not on file Years of education: Not on file Highest education level: Not on file Occupational History Not on file Tobacco Use Smoking status: Never Smokeless tobacco: Never Vaping Use Vaping status: Never Used Substance and Sexual Activity Alcohol use: Never Drug use: Never Sexual activity: Yes Other Topics Concern Not on file Social History Narrative Not on file Social Determinants of Health Financial Resource Strain: Not on file Food Insecurity: No Food Insecurity (01/09/2024) Hunger Vital Sign Worried About Running Out of Food in the Last Year: Never true Ran Out of Food in the Last Year: Never true Transportation Needs: No Transportation Needs (01/09/2024) PRAPARE - Transportation Lack of Transportation (Medical): No Lack of Transportation (Non-Medical): No Physical Activity: Not on file Stress: Not on file Social Connections: Not on file Intimate Partner Violence: Not At Risk (02/18/2024) Humiliation, Afraid, Rape, and Kick questionnaire Fear of Current or Ex-Partner: No Emotionally Abused: No Physically Abused: No Sexually Abused: No Housing Stability: Low Risk (01/09/2024) Housing Stability Vital Sign Unable to Pay for Housing in the Last Year: No Number of Times Moved in the Last Year: 1 Homeless in the Last Year: No Family History: No family history on file. Medications Prior to Admission: Medications Prior to Admission Medication Sig Dispense Refill Last Dose amoxicillin (Amoxil) 250 MG capsule Take 1 capsule by mouth 3 times daily. 02/18/2024 aspirin 81 MG EC tablet Take 81 mg by mouth daily. 02/17/2024 cholecalciferol (Vitamin D3) 25 MCG (1000 UT) tablet Take by mouth daily. 02/17/2024 Vit-Fe Fumarate-FA ( 1+1 PO) Take 1 tablet by mouth daily. 02/17/2024 insulin lispro (HumaLOG) 100 UNIT/ML patient supplied pump Inject under the skin continuous. REVIEW OF SYSTEMS: Constitutional: Negative for chills and fever. Respiratory: Negative for chest tightness and shortness of breath. Cardiovascular: Negative for chest pain and palpitations. Gastrointestinal: Negative for abdominal distention, abdominal pain, nausea and vomiting. Genitourinary: Negative for vaginal bleeding and vaginal discharge. Neurological: Negative for dizziness and light-headedness. Labs: CBC, CMP, UPC, Type and Screen PHYSICAL EXAM: Vitals: 02/18/24 1425 02/18/24 1430 02/18/24 1449 02/18/24 1500 BP: 156/105 Pulse: 85 81 91 75 Resp: 18 Temp: 36.5 C (97.7 F) TempSrc: Oral SpO2: 100% Weight: 183 lb (83 kg) Height: 5' 6 (1.676 m) General appearance: awake, alert, cooperative, no apparent distress, and appears stated age Neurologic: Awake, alert, oriented to name, place and time. Lungs: No increased work of breathing, good air exchange Abdomen: Soft, non tender, gravid, consistent with her gestational age Fetus: EFW 2037 grams, which is at the 75% for this gestational age. AC is at the 98% US from today not yet available to view. Per Dr. Rodriguez 02/03 BP today Presentation: Cephalic genetics: 09/09/2023 CYSTIC FIBROSIS: Negative SMA: Negative FRAGILE X: Negative ASSESSMENT AND PLAN: LABOR DELIVERY ??? SCD's ONLY (labor through ambulation) SCD's PLUS Prophylactic Anticoagulation until discharge SCD's PLUS Prophylactic Anticoagulation for 6 weeks SCD's PLUS Therapeutic Anticoagulation for 6 weeks Vaginal Delivery [] BMI ? 40 kg/m2 Delivery All patients Vaginal Delivery [] BMI ? 40 kg/m2 AND [] Antepartum hospitalization ? 72 hours within the past month Delivery 1 Major Risk Factor: [] BMI ? 35 kg/m2 [] Low Risk Thrombophilia [] PPH+RBCs, IR, or operation [] Infection+Antibiotics [] Antepartum hospitalization ? 72 hours within the past month [] PMH: Sickle Cell, SLE, Cardiac Dz, Active IBD, Active Cancer, Nephrotic Syndrome OR 2 Minor Risk Factors: [] Multiple gestation [] Age > 40 [] PPH ? 1,000cc [] (+)FMH of VTE [] Smoker [] Preeclampsia [] BMI ? 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), Prothrombin (homozygous), FVL+Prothrombin (heterozygous), Antithrombin III, APLS VTE Prophylaxis: not indicated Admission: Admit to Antepartum (PNU) FHR: 1 hour TID Labs: GBS ordered, but not yet obtained GC/CT ordered, but not yet obtained Urine ordered, but not yet obtained FFN not obtained Type&Screen ordered, but not yet obtained Consults: MFM Imaging: Not indicated Diet: Gestational CCD Testing: TBD Timing and Route of Delivery: IOL 02/22/24 if not developing PreEwSF Medications: Neuroprotection Not indicated Tocolysis Not indicated Antibiotics Not indicated Steroids: Betamethasone - not indicated PreEwoSF - Met criteria on prior admission with mild range BP and elevated UPC of 0.34 during last PNU admission 01/06-01/08 - PreE labs ordered on admission, CBC wnl. CMP notable for AST/ALT both elevated at 71/49, but not 2x upper limit of normal - UPC 0.19 today - Asymptomatic - Plan to repeat CBC, CMP in AM and if LFTs continue to rise, will recommend IOL at that time - BP high mild range, no severe range Bps noted - Patient agreeable with this plan T1DM - Follows with cMFM for management - Omnipod and dexcom G6 in place - A1C 10/30/23 6.1 - BGTs on admission well controlled at 93, will keep current pump settings in place - Dexcom reviewed by Dr. Rodriguez and overall well controlled - Plan for BGTs Fasting, pre and 1hr PP and 0300 Polyhydramnios - LALI 30 on 02/[address] Rodriguez Chronic Anemia - CBC on admission 10.1 - PO iron - Asx on admission POTS - Asymptomatic on admission Hx Kidney Stone - Had lithotripsy and stent in Jul 2022 Tooth Pain - Recently had tooth removed, will continue amoxicillin - Asx on admissoin IUP @ 36w3d - Dating by 1st trimester US - Cephalic on 02/18/24 - Monitorinhr TID - Diet: Gestational CCD - BMZ deferred Discussed with Dr Rodriguez, who agrees with plan. Dahlia Bullard, 02/18/2024, 5:04 PM Cc: Hugo Rodriguez MD Associated attestation - Hugo Rodriguez MD - 02/18/2024 9:22 PM EDT I independently saw and evaluated the patient. I agree with the findings and plan of care as documented in the resident's note. No complaints patient's mother and FOB present no headache currently see resident HPI as well 18 yr old at 36 3/7 GA with the following: PreEwoSF no signs of pre-e with SF but given LFT elevation will admit and observe if increasing tomorrow plan on IOL, UPC of 0.19 today no HELLP if stable plan on 37 week IOL T1DM reviewed dexcom and doing well with control no adjustments made and will look daily now Polyhydramnios Alli of 30 today on BPP POTS stable History of kidney stone Tooth pain recent tooth removal continue amoxicillin for now Prematurity family questioning if delivery occurs will baby go to NICU long discussion about latepreterm vs early term delivery and at high risk for NICU admission for BGT and possible lung maturity issues, not a candidate for steroids I spent 40 minutes in the visit today on the floor reviewing the chart, discussing the case with the residency staff and nursing Hugo Rodriguez MD documented in this [facility]08-14-2024 Hospital Discharge instructions* Discharge Instructions* Opal Win DO - 02/10/2024 2:48 PM EDT Follow up appointment with your doctor/machine operators - Keep next scheduled appointment Activity - Normal Activity Call your doctor/machine operators if you have: - leaking fluid - vaginal bleeding - regular contractions: More than 6 contractions in one hour - decreased movement - worsening abdominal (belly) pain - headache, blurry vision, increased swelling, upper abdominal pain - If BP > 160/110 return to triage If you are going home with contractions that are uncomfortable/painful- we recommend these coping strategies: rhythmic breathing, hydrotherapy, imagery or visualization, gentle massage, walking and changing your position. Treatment Verification: Catalina Capellan was assessed on Labor and Delivery for a related visit on 02/10/24 . Opal Win DO [facility] documented in this [facility]08-14-2024 History of Present illness Narrative* Opal Win DO - 02/10/2024 12:31 PM EDT Department of Obstetrics and Gynecology Labor and Delivery Triage Note CHIEF COMPLAINT: ^BP HISTORY OF PRESENT ILLNESS: The patient is a 18 y.o. 35w2d. OB History 2 Para 0 Term 0 0 AB 1 Living 0 SAB 1 IAB 0 Ectopic 0 Multiple 0 Live Births 0 Patient presents with a chief complaint as above. Patient admits to having elevated BP at home withpressures around SBP in the 140s and DBP in the 100s and states highest was 137/102. BP in triage have been normotensive. She also admits to a bitemporal CAT wrapping around her head that is a 4/10 for pain. She denies vision changes and RUQ pain. Has a hx of PreEwoSF and POTS that developed during , T1DM, and chronic anemia with iron infusions. Denies DFM/VB/LOF/CTX Estimated Due Date: Estimated Date of Delivery: 03/14/24 PAST MEDICAL HISTORY: Past Medical History: Diagnosis Date Anemia Anxiety Depression Diabetes mellitus affecting Kidney stone Orthostatic intolerance POTS (postural orthostatic tachycardia syndrome) PAST SURGICAL HISTORY: Past Surgical History: Procedure Laterality Date KIDNEY STONE SURGERY no incision SOCIAL HISTORY: reports that she has never smoked. She has never used smokeless tobacco. She reports that she does not drink alcohol and does not use drugs. MEDICATIONS: Prior to Admission medications Medication Sig Start Date End Date Taking? Authorizing Provider aspirin 81 MG EC tablet Take 81 mg by mouth daily. Yes Historical Provider, cholecalciferol (Vitamin D3) 25 MCG (1000 UT) tablet Take by mouth daily. 11/26/23 Yes Historical Provider, insulin lispro (HumaLOG) 100 UNIT/ML patient supplied pump Inject under the skin continuous. Yes Historical Provider, Vit-Fe Fumarate-FA ( 1+1 PO) Take 1 tablet by mouth daily. Yes Historical Provider, cetirizine (ZyrTEC) 10 MG tablet Take 10 mg by mouth daily. 02/10/24 Historical Provider, IRON, FERROUS SULFATE, PO Take by mouth. 02/10/24 Historical Provider, CARE: Complicated by: anemia, preeclampsia without severe features, type 1 diabetes mellitus, and POTS REVIEW OF SYSTEMS: Pertinent items are noted in HPI. APPEARANCE: Pain: No PHYSICAL EXAM: Vital Signs: VS wnl-reviewed/Respirations normal effort Vitals: 02/10/24 1200 02/10/24 1203 BP: 133/80 Pulse: 105 Resp: 18 Temp: 36.7 C (98 F) TempSrc: Oral SpO2: 100% Weight: 174 lb (78.9 kg) Height: 5' 6 (1.676 m) Abdomen: soft, NT, ND, no rebound/guarding Uterus: gravid/non-tender LE Edema: trace Speculum Exam: Deferred heart rate: Cat I Cervix: Deferred Contraction frequency: none Membranes: Intact RESULTS: NST: Reactive GENERAL LABS: No results found for this or any previous visit (from the past 24 hour(s)). TRIAGE COURSE: Patient presents with pertinent findings as above. Normotensive in triage and will continue to cycle BPs. Will order Excedrin Tension Headache for CAT and PreE labs. Has appointment on 02/10 with M. BSUS shows fetus in vertex presentation. Cat I on FHT and reactive. Patient states her headache has resolved. PreE labs wnl and UPC improved to 0.27. Discussed Severe range Bps and how to take her BP at home. Discussed if symptoms return and don't improve with medication at home to come to triage. Will attend appointment tomorrow. ESSION: Preeclampsia-without severe features Pain assessment and plan: None DISCUSSED WITH PNC PROVIDER: Dr. Pham DISPOSITION: Discharge to Home Associated attestation - Kelsey Christine MD - 02/10/2024 7:18 PM EDT Hospital Care (Independent): I independently saw and evaluated the patient. I agree with the findings and plan of care as documented in the resident's note. documented in this [facility]08-14-2024 Hospital Discharge instructions* Discharge Instructions* Emy Watkins MD - 02/10/2024 1:42 AM EDT Follow up appointment with your doctor/machine operators - Keep next scheduled appointment Activity - Normal Activity Call your doctor/machine operators if you have: - leaking fluid - vaginal bleeding - regular contractions: More than 6 contractions in one hour - decreased movement - worsening abdominal (belly) pain - headache, blurry vision, increased swelling, upper abdominal pain - BP greater than 160/110 If you are going home with contractions that are uncomfortable/painful- we recommend these coping strategies: rhythmic breathing, hydrotherapy, imagery or visualization, gentle massage, walking and changing your position. Treatment Verification: Catalina Capellan was assessed on Labor and Delivery for a related visit on 02/10/24 . Emy Watkins MD [facility] documented in this [facility]08-14-2024 History of Present illness Narrative* Emy Watkins MD - 02/10/2024 1:02 AM EDT Department of Obstetrics and Gynecology Labor and Delivery Triage Note CHIEF COMPLAINT: High BP HISTORY OF PRESENT ILLNESS: The patient is a 18 y.o. 35w2d. OB History 2 Para 0 Term 0 0 AB 1 Living 0 SAB 1 IAB 0 Ectopic 0 Multiple 0 Live Births 0 Patient presents with a chief complaint as above. High home BPs starting this morning- states 147/98 was the highest. Other pressures throughout the day include those with SBP in the 140s and DBP in the 100s. She also states she has had swelling that started at 7:00 this morning that has resolved. A headache started this morning but has improved without intervention since onset. She is otherwise asymptomatic. Met criteria for PreEwoSF previously with mild range BP and elevated UPC Denies CP/SOB/N/V/VC Medical history is significant for POTS that developed during , TIDM, PreEwoSF, chronic anemia. Denies DFM/VB/LOF/CTX Estimated Due Date: Estimated Date of Delivery: 03/14/24 PAST MEDICAL HISTORY: Past Medical History: Diagnosis Date Anemia Anxiety Depression Diabetes mellitus affecting Kidney stone Orthostatic intolerance POTS (postural orthostatic tachycardia syndrome) PAST SURGICAL HISTORY: Past Surgical History: Procedure Laterality Date KIDNEY STONE SURGERY no incision SOCIAL HISTORY: reports that she has never smoked. She has never used smokeless tobacco. She reports that she does not drink alcohol and does not use drugs. MEDICATIONS: Prior to Admission medications Medication Sig Start Date End Date Taking? Authorizing Provider aspirin 81 MG EC tablet Take 81 mg by mouth daily. Yes Historical Provider, cholecalciferol (Vitamin D3) 25 MCG (1000 UT) tablet Take by mouth daily. 11/26/23 Yes Historical Provider, insulin lispro (HumaLOG) 100 UNIT/ML patient supplied pump Inject under the skin continuous. Yes Historical Provider, Vit-Fe Fumarate-FA ( 1+1 PO) Take 1 tablet by mouth daily. Yes Historical Provider, cetirizine (ZyrTEC) 10 MG tablet Take 10 mg by mouth daily. 02/10/24 Historical Provider, IRON, FERROUS SULFATE, PO Take by mouth. 02/10/24 Historical Provider, CARE: Complicated by: t1DM, PreEwoSF REVIEW OF SYSTEMS: Pertinent items are noted in HPI. APPEARANCE: Pain: No PHYSICAL EXAM: Vital Signs: VS wnl-reviewed/Respirations normal effort Vitals: 02/10/24 0048 02/10/24 0049 BP: 130/85 130/85 Pulse: 95 Resp: 18 Temp: 36.6 C (97.8 F) TempSrc: Oral SpO2: 98% Abdomen: soft, NT, ND, no rebound/guarding Uterus: gravid/non-tender LE Edema: trace Speculum Exam: defer heart rate: Category I Cervix: defer Contraction frequency: none Membranes: Intact RESULTS: NST: Reactive Procedures GENERAL LABS: No results found for this or any previous visit (from the past 24 hour(s)). TRIAGE COURSE: Normotensive. Asymptomatic. Cat I with moderate variability and accels. Reviewed signs/symptoms of PreE as well as conservative management of headaches. Headache today has resolved without any treatment but reviewed with patient if headache does not resolve in the future that she should be seen. Has appointment on 02/10. Return precautions given. ESSION: PreEwoSf Pain assessment and plan: None DISCUSSED WITH PNC PROVIDER: Zenaida DISPOSITION: Discharge to Home Associated attestation - Luis Rosario DO - 02/10/2024 6:49 AM EDT Hospital Care (Independent): I independently saw and evaluated the patient. I agree with the findings and plan of care as documented in the resident's note. Educated patient on blood pressures and return precautions. documented in this [facility]07-18-2024 History of Present illness Narrative* Rut Malik DO - 01/14/2024 4:21 PM EDT Department of Obstetrics and Gynecology Labor and Delivery Triage Note CHIEF COMPLAINT: 12/04 BPP HISTORY OF PRESENT ILLNESS: The patient is a 18 y.o. 31w3d. OB History 2 Para 0 Term 0 0 AB 1 Living 0 SAB 1 IAB 0 Ectopic 0 Multiple 0 Live Births 0 Patient presents with a chief complaint as above. Patient following with [facility] for 12/04 BPP. Sent in for NST and BGT check. NST reactive. BGT 121. She just ate sand which before coming to triage. Sugarshave been over well controlled. Denies DFM/VB/LOF/CTX Estimated Due Date: Estimated Date of Delivery: 03/14/24 PAST MEDICAL HISTORY: Past Medical History: Diagnosis Date Anemia Anxiety Depression Diabetes mellitus affecting Kidney stone Orthostatic intolerance POTS (postural orthostatic tachycardia syndrome) PAST SURGICAL HISTORY: Past Surgical History: Procedure Laterality Date KIDNEY STONE SURGERY SOCIAL HISTORY: reports that she has never smoked. She has never used smokeless tobacco. She reports that she does not drink alcohol and does not use drugs. MEDICATIONS: Prior to Admission medications Medication Sig Start Date End Date Taking? Authorizing Provider aspirin 81 MG EC tablet Take 81 mg by mouth daily. Yes Historical Provider, cholecalciferol (Vitamin D3) 25 MCG (1000 UT) tablet Take by mouth daily. 11/26/23 Yes Historical Provider, insulin lispro (HumaLOG) 100 UNIT/ML patient supplied pump Inject under the skin continuous. Yes Historical Provider, IRON, FERROUS SULFATE, PO Take by mouth. Yes Historical Provider, Vit-Fe Fumarate-FA ( 1+1 PO) Take 1 tablet by mouth daily. Yes Historical Provider, cetirizine (ZyrTEC) 10 MG tablet Take 10 mg by mouth daily. Historical Provider, CARE: Complicated by: none REVIEW OF SYSTEMS: Pertinent items are noted in HPI. APPEARANCE: Pain: No PHYSICAL EXAM: Vital Signs: VS wnl-reviewed/Respirations normal effort Vitals: 01/14/24 1557 BP: 122/80 Pulse: (!) 144 Resp: 18 Temp: 36.7 C (98 F) Abdomen: soft, NT, ND, no rebound/guarding Uterus: gravid/non-tender LE Edema: trace Speculum Exam: defer heart rate: Category I Cervix: defer Contraction frequency: none Membranes: Intact RESULTS: NST: Reactive GENERAL LABS: Recent Results (from the past 24 hour(s)) POCT glucose meter Collection Time: 01/14/24 3:59 PM Result Value Ref Range Glucose 121 (H) 70 - 100 mg/dL TRIAGE COURSE: Patient resting comfortably in triage. NST reactive. VSS. Patient endorsing good movement. BGT 121, ate a sand which right before coming to triage. Okay for discharge at this time. Rut Malik DO 01/14/2024 4:23 PM IMPRESSION: 6/8 BPP, NST reactive 8/10 BPP total Pain assessment and plan: None DISCUSSED WITH PNC PROVIDER: Dr. Estevez DISPOSITION: Discharge to Home Associated attestation - Magi Colon DO - 01/14/2024 4:52 PM EDT Hospital Care (Independent): I independently saw and evaluated the patient. I agree with the findings and plan of care as documented in the resident's note. documented in this [id number] History of Present illness Narrative* Hugo Rodriguez MD - 01/10/2024 11:56 AM EDT MFM phone call I called the patient to check in after review of her Dexcom this am. Doing well with numbers and reiterated the importance of scheduled eating and calling if any concerns. She also has an appointmenttomorrow in [place] and I recommend that she get the BP cuff that was prescribed. She was given precautions as to when to return if pre-eclampsia concerns otherwise we talked about delivery timing at37 weeks. Questions answered and she will need a note tomorrow at her appointment to be off work now until after delivery. Hugo Rodriguez MD documented in this [facility]07-13-2024 History of Present illness Narrative* Charo Harrison RN - 01/09/2024 11:03 PM EDT Insulin ordered to refill pt pump. Upon discussion with pt, insulin pump is not refillable and requires an entire new cartridge which pt has at home. Residents to speak with Dr. Rodriguez about how to proceed. This RN updated that pt will be discharged at this time and follow up in office on Thursday. * Josy Fung DO - 01/09/2024 9:58 PM EDT Notified by RN that pt was going to run out of insulin for her insulin pump and has no more with her. Ordered some from pharmacy. Pt's BGT was also 50 and she was symptomatic. Given a juice. Pt to eat dinner once insulin arrives from pharmacy. * Charo Harrison RN - 01/09/2024 8:44 PM EDT Insulin pump almost empty per pt, has replacement at home but lives around an hour away. Reported to resident who states she will check with pharmacist about sending a replacement pump. * Valery Bermudez - 01/09/2024 1:17 PM EDT Nutrition rescreen completed. Chart reviewed. Patient to be monitored and followed by the diet substance abuse technician. Dietitian available upon request. MARY Burciaga * Jose A Hernandez MD - 01/09/2024 6:44 AM EDT Images from the original note were not included. Maternal Medicine Service Resident Progress Note 01/09/2024 6:44 AM 01/07/2024 Hospital Day: 3 Catalina Capellan, 18 y.o. 30w5d Patient has been seen and examined. The patient was sleeping soundly on exam and was not disturbed.Per RN and resident staff ON there was no concerns. Vitals: 01/08/24 1410 01/08/24 1624 01/08/24 2108 01/09/24 0226 BP: 129/82 130/80 108/83 BP Location: Right arm Patient Position: Lying Sitting Pulse: 98 103 92 96 Resp: 16 16 Temp: 36.5 C (97.7 F) 37.1 C (98.8 F) 37.1 C (98.7 F) TempSrc: Temporal Temporal SpO2: 100% 96% Weight: Height: FHT: 120s, moderate variability Accels: present Decels: absent Contractions: None Physical Exam: Deferred Medications: Current Facility-Administered Medications Medication Dose Route Frequency Provider Last Rate Last Admin acetaminophen (Tylenol) tablet 650 mg 650 mg Oral q4h PRN Beatriz Lindquist DO iron sucrose (Venofer) 200 mg in sodium chloride 0.9 % 100 mL IVPB 200 mg IntraVENous q24h Opal Win DO Stopped at 01/08/24 0916 ondansetron ODT (Zofran-ODT) disintegrating tablet 4 mg 4 mg Oral q8h PRN Beatriz Chriswu, DO Or ondansetron (Zofran) injection 4 mg 4 mg IntraVENous q6h PRN Beatriz Chriswu, DO 4 mg at 01/08/24 1252 vitamin tablet 1 tablet Oral Daily Beatriz Chriswu, DO 1 tablet at 01/08/24 0819 sodium chloride 0.9 % infusion 5-250 mL/hr IntraVENous PRN Beatriz Chriswu, DO sodium chloride 0.9% (NS) flush 10 mL 10 mL IntraVENous 2 times per day Beatriz Rustu, DO 10 mL at 01/08/24 2110 sodium chloride 0.9% (NS) flush 10 mL 10 mL IntraVENous PRN Beatriz Chriswu, DO Assessment/Plan: Catalina Capellan is a 18 y.o. female 30w5d T1DM - Follows with [facility] for management - Omnipod and dexcom G6 in place - BGT logs reviewed on admission and noted that BGTs 200s between 3-9PM so is admitted for optimization - Current plan to adjust ICR from 3-9 pm to 1:1 Current Pump settings: Active insulin time: 2 hrs Basals: Max basal rate 2.4 units/hour AUTOMODE MN 0.65 0600 0.55 1000 0.6 2000 0.65 I:C R: MN 11.0 > 8 0600 7.5 1000 1.5 1700 1.5 ISF: MN 60 ->25 0600 40 -> 25 2000 40 -> 25 Target Range MN 110 0600 110 0800 110 - BGT this am pending - Plan for BGTs Fasting, pre and 1hr PP and 0300 - Patient went low overnight to 59-60s and was symptomatic, treated with juice - Blood sugars appear to be moderately controlled, will continue to trend and make adjustments as needed Polyhydramnios - ALLI >26 on 01/03 - 01/07 US EFW 2036 gm 4 lb 8 oz 75 %, AC 98th% ALLI 25; BPP 01/07 02/03 PreEwoSF - Met criteria on admission with mild range BP - PreE lab on admission negative - UPC 0.34 - Asymptomatic, BP NT overnight Chronic Anemia - CBC on admission 8.0 - Ferritin low at 4 - S/p Venofer infusion x 1 POTS - Asymptomatic on admission - BP NT Hx Kidney Stone - Had lithotripsy and stent in Jul 2022 IUP @ 30w5d - Dating by 9w3d US - Breech on 01/07 - Monitoring: CEFM - Diet: Gestational CCD - BMZ deferred Further plan pending d/w attending. Jose A Hernandez MD 01/09/2024, 6:44 AM Associated attestation - Hugo Rodriguez MD - 01/09/2024 11:46 AM EDT I independently saw and evaluated the patient. I agree with the findings and plan of care as documented in the resident's note. In good spirits and okay with plan to stay for few days reviewed the ultrasound results today 18 yr old at 30 5/7 GA with the following: T1DM reviewed her Dexcom will plan on adjusting ICR with 0600 and also adjusting overnight sensitivity and follow if stable hope for discharge tomorrow Polyhydramnios stable Chronic anemia receiving venofer as IP will receive 3 doses this admission POTS asymptomatic History of kidney stone with lithotripsy and stent in Jul 2022 Pre-EwoSF met criteria with admission UPC of 0.34 mostly normotensive and asymptomatic currently Plan ongoing observation on insulin pump with automode, adjustment today and follow Has OP visit on Thursday in [place] and will continue twice weekly testing with weekly labs now givenpre-eclampsia diagnosis planned delivery at 37 weeks GA I spent 30 minutes in the visit today on the floor reviewing the chart, discussing the case with the residency staff and nursing Hugo Rodriguez MD * Opal Win DO - 01/08/2024 6:28 AM EDT Images from the original note were not included. Maternal Medicine Service Resident Progress Note 01/08/2024 6:29 AM 01/07/2024 Hospital Day: 2 Catalina Capellan, 18 y.o. 30w4d Patient has been seen and examined. Pt had no complaints overnight, she is feeling well this AM . Positive movement Negative vaginal bleeding Negative LOF Negative Contractions Vitals: 01/08/24 0000 01/08/24 0255 01/08/24 0257 01/08/24 0300 BP: 107/63 Pulse: 104 101 94 104 Resp: 18 Temp: 36.9 C (98.4 F) TempSrc: Oral SpO2: 100% Weight: Height: FHT: 120, moderate variability Accels: present Decels: absent Contractions: none Physical Exam: Gen: NAD HEENT: Normocephalic, Atraumatic, EOMI, MMM Resp: no WRR Abd: soft, gravid, NTND, no rebound, no guarding. Ext: No LE edema, no calf tenderness or swelling Medications: Current Facility-Administered Medications Medication Dose Route Frequency Provider Last Rate Last Admin acetaminophen (Tylenol) tablet 650 mg 650 mg Oral q4h PRN Beatriz Rustu, DO ondansetron ODT (Zofran-ODT) disintegrating tablet 4 mg 4 mg Oral q8h PRN Beatriz Lindquist, DO Or ondansetron (Zofran) injection 4 mg 4 mg IntraVENous q6h PRN Beatriz Rustu, DO vitamin tablet 1 tablet Oral Daily Beatriz Lindquist, DO sodium chloride 0.9 % infusion 5-250 mL/hr IntraVENous PRN Beatriz Rustu, DO sodium chloride 0.9% (NS) flush 10 mL 10 mL IntraVENous 2 times per day Beatriz Lindquist, DO sodium chloride 0.9% (NS) flush 10 mL 10 mL IntraVENous PRN Beatriz Rustu, DO Assessment/Plan: Catalina Capellan is a 18 y.o. female 30w4d TIDM - Follows with [facility] for management - Omnipod and dexcom G6 in place - Recent BGT logs reviewed and noted that BGTs 200s between 3-9PM so is admitted for optimization - Current plan to adjust ICR from 3-9 pm to 1:1 New Pump settings: Active insulin time: 2 hrs Basals: Max basal rate 2.4 units/hour AUTOMODE MN 0.65 0600 0.55 1000 0.6 2000 0.65 I:C R: MN 11.0 > 8 0600 7.5 1000 1.5 1700 1.5 ISF: MN 60 ->25 0600 40 -> 25 2000 40 -> 25 Target Range MN 110 0600 110 0800 110 - BGT on admission 79 - Plan for BGTs Fasting, pre and 1hr PP and 0300 - Patient went low overnight to 60s and was symptomatic, treated with juice - Blood sugars appear to be well controlled will continue to trend and make adjustments as needed Polyhydramnios - ALLI >26 on 01/03 - Plan for Growth US/BPP in the AM PreEwoSF - Met criteria on admission with mild range BP - PreE lab on admission negative - UPC 0.34 - Asymptomatic, BP NT overnight Chronic Anemia - CBC on admission 8.0 - Ferritin low at 4 - Ordered Venofer infusion POTS - Asymptomatic on admission - BP NT Hx Kidney Stone - Had lithotripsy and stent in Jul 2022 IUP @ 30w4d - Dating by 9w3d US - Breech on 01/07 - Monitoring: CEFM - Diet: Gestational CCD - BMZ deferred Further plan pending d/w attending. Opal Win, DO 01/08/2024, 6:29 AM Associated attestation - Hugo Rodriguez MD - 01/08/2024 1:17 PM EDT I independently saw and evaluated the patient. I agree with the findings and plan of care as documented in the resident's note. In good spirits and okay with plan to stay for few days reviewed the ultrasound results today 18 yr old at 30 4/7 GA with the following: T1DM reviewed her Dexcom with recent aggressive changes on 01/04/24 patient states that her schedule is a barrier, works at [employer] and doesn't always plan. Eating 50-60 carb per meal. Doesn't always eat breakfast consistent in her lunch and evening meal is later. Maximum insulin per day around 60 units, active insulin time of 2 hours and recent ICR changes and sensitivity changes. Also reports pre-bolusing as well. Automode activated and states she does her best with carbohydrate counting but excursions are up above 200 with meals at times Polyhydramnios stable Chronic anemia receiving venofer as IP POTS asymptomatic History of kidney stone with lithotripsy and stent in Jul 2022 Pre-EwoSF met criteria with admission UPC of 0.34 mostly normotensive and asymptomatic currently Plan ongoing observation on insulin pump with automode, verbally desires to stay on pulp and GCM will correlate with BGT fastinga and one hour after meals and if extreme numbers. Doing well inbetweenmeals, reports administrating correction when high we talked about possible underestimation of carbohydrates and will increase her insulin by 10-15% with meals which translates into 8-10 additional units may need more and will follow while hospitalized. Otherwise no other real barriers identified in our discussion besides schedule and food choices. We talked about this being an artifical environment for food and minimal stress while hospitalized. Last A1C of 6.1 on 10/30/23 may consider repeatingthis and may also consider coming off automode and on manual mode. Will continue to follow no majoradjustments made in her pump setting today I spent 30 minutes in the visit today on the floor reviewing the chart, discussing the case with the residency staff and nursing Hugo Rodriguez MD documented in this [facility]07-12-2024 Nurse Note* Jenae Cedeno RN - 01/08/2024 6:53 PM EDT 1849 pre mbs is 105 per cgm [id number] Note* Jenae Cedeno RN - 01/08/2024 6:53 PM EDT 1850 pre mbs is 105 per cgm * Jenae Cedeno RN - 01/08/2024 4:09 PM EDT 1548 one hour post was 82 ( our meter) and 83 on patients cgm documented in this [facility]07-12-2024 Nurse Note* Jenae Cedeno RN - 01/08/2024 4:09 PM EDT 1548 one hour post was 82 ( our meter) and 83 on patients cgm [id number] Note* Care Coordination - Angeline Fink RN - 01/08/2024 10:51 AM EDT Date: 01/08/2024 Name: Catalina Capellan : 2005 [facility] Patient Information Primary Caregiver: Self Accompanied by/Relationship: S/O;Family Marital Status: [place] Support System: SO/Family Jewish/Cultural Factors: none Activities of Daily Living Communication: See demographics Living Arrangements Current Residence: Private residence Lives With: S/O; Family Support System: S/O; Family Income Information Income Source: Employed Financial Resource Strain How hard is it for you to pay for the very basics like food, housing, medical care and heating? N/A Housing Stability In the last 12 months, was there a time when you did not have a steady place to sleep or slept in ashelter (including now)? No Transportation Needs Has the lack of Transportation kept you from medical appointments? No In the past 12 months, has the lack of transportation kept you from meetings, work, or from gettingthings needed for daily living? No Food Insecurity Within the past 12 months, have you worried that your food would run out before you got the money to buy more? No Stress Do you feel stress - tense, restless, nervous, or anxious, or unable to sleep at night because you mind is troubled all the time? Mood stable Referral To Financial Resources: N/A Community Resources: PNU folder given upon admission to PNU Unit Social Work: N/A CLP: N/A Medical Information 18 year old admitted for TiDM optimization at 30/4 weeks. 2 Para 0. Discharge Plan Home or Community Resources: PNU Admission folder given upon admission to unit Equipment: N/A Education Given: PNU admit folder and see Education Tab Additional Information: N/A Mental Health Services: N/A Developmental Delay: N/A Children's Services: N/A [id number] Note* Care Coordination - Angeline Fink RN - 01/08/2024 10:51 AM EDT Date: 01/08/2024 Name: Catalina Capellan : 2005 [facility] Information [place] Patient Information Primary Caregiver: Self Accompanied by/Relationship: S/O;Family Marital Status: [place] Support System: SO/Family Jewish/Cultural Factors: none Activities of Daily Living Communication: See demographics Living Arrangements Current Residence: Private residence Lives With: S/O; Family Support System: S/O; Family Income Information Income Source: Employed Financial Resource Strain How hard is it for you to pay for the very basics like food, housing, medical care and heating? N/A Housing Stability In the last 12 months, was there a time when you did not have a steady place to sleep or slept in ashelter (including now)? No Transportation Needs Has the lack of Transportation kept you from medical appointments? No In the past 12 months, has the lack of transportation kept you from meetings, work, or from gettingthings needed for daily living? No Food Insecurity Within the past 12 months, have you worried that your food would run out before you got the money to buy more? No Stress Do you feel stress - tense, restless, nervous, or anxious, or unable to sleep at night because you mind is troubled all the time? Mood stable Referral To Financial Resources: N/A Community Resources: PNU folder given upon admission to PNU Unit Social Work: N/A CLP: N/A Medical Information 18 year old admitted for TiDM optimization at 30/4 weeks. 2 Para 0. Discharge Plan Home or Community Resources: PNU Admission folder given upon admission to unit Equipment: N/A Education Given: PNU admit folder and see Education Tab Additional Information: N/A Mental Health Services: N/A Developmental Delay: N/A Children's Services: N/A [facility] [id number] Miscellaneous Notes* Care Coordination - Angeline Fink RN - 01/08/2024 10:51 AM EDT Date: 01/08/2024 Name: Catalina Capellan : 2005 [facility] Information [place] Patient Information Primary Caregiver: Self Accompanied by/Relationship: S/O;Family Marital Status: [place] Support System: SO/Family Jewish/Cultural Factors: none Activities of Daily Living Communication: See demographics Living Arrangements Current Residence: Private residence Lives With: S/O; Family Support System: S/O; Family Income Information Income Source: Employed Financial Resource Strain How hard is it for you to pay for the very basics like food, housing, medical care and heating? N/A Housing Stability In the last 12 months, was there a time when you did not have a steady place to sleep or slept in ashelter (including now)? No Transportation Needs Has the lack of Transportation kept you from medical appointments? No In the past 12 months, has the lack of transportation kept you from meetings, work, or from gettingthings needed for daily living? No Food Insecurity Within the past 12 months, have you worried that your food would run out before you got the money to buy more? No Stress Do you feel stress - tense, restless, nervous, or anxious, or unable to sleep at night because you mind is troubled all the time? Mood stable Referral To Financial Resources: N/A Community Resources: PNU folder given upon admission to PNU Unit Social Work: N/A CLP: N/A Medical Information 18 year old admitted for TiDM optimization at 30/4 weeks. 2 Para 0. Discharge Plan Home or Community Resources: PNU Admission folder given upon admission to unit Equipment: N/A Education Given: PNU admit folder and see Education Tab Additional Information: N/A Mental Health Services: N/A Developmental Delay: N/A Children's Services: N/A documented in this [facility]07-11-2024 History and physical note* Beatriz Lindquist DO - 01/07/2024 11:59 PM EDT Department of Maternal Medicine History and Physical CHIEF COMPLAINT: T1DM Optimization HISTORY OF PRESENT ILLNESS: The patient is a 18 y.o. female at 30w4d. OB History 2 Para 0 Term 0 0 AB 1 Living 0 SAB 1 IAB 0 Ectopic 0 Multiple 0 Live Births 0 Patient presents with a chief complaint as above and is being admitted for TIDM optimization Transport: No Prior Hospitalizations: Yes 10/30/23 Estimated Due Date: Estimated Date of Delivery: 03/14/24 CARE: Complications: See Below PAST OB HISTORY: OB History 2 Para 0 Term 0 0 AB 1 Living 0 SAB 1 IAB 0 Ectopic 0 Multiple 0 Live Births 0 Detailed OB History G1 SAB G2 Current Past Medical History: Past Medical History: Diagnosis Date Anemia Anxiety Depression Diabetes mellitus affecting Kidney stone Orthostatic intolerance POTS (postural orthostatic tachycardia syndrome) Past Surgical History: Past Surgical History: Procedure Laterality Date KIDNEY STONE SURGERY Allergies: Patient has no known allergies. Social History: Social History Socioeconomic History Marital status: Significant Other Spouse name: Kevin BARR Number of children: Not on file Years of education: Not on file Highest education level: Not on file Occupational History Not on file Tobacco Use Smoking status: Never Smokeless tobacco: Never Vaping Use Vaping status: Never Used Substance and Sexual Activity Alcohol use: Never Drug use: Never Sexual activity: Yes Other Topics Concern Not on file Social History Narrative Not on file Social Determinants of Health Financial Resource Strain: Not on file Food Insecurity: No Food Insecurity (10/30/2023) Hunger Vital Sign Worried About Running Out of Food in the Last Year: Never true Ran Out of Food in the Last Year: Never true Transportation Needs: No Transportation Needs (10/30/2023) PRAPARE - Transportation Lack of Transportation (Medical): No Lack of Transportation (Non-Medical): No Physical Activity: Not on file Stress: Not on file Social Connections: Not on file Intimate Partner Violence: Not At Risk (01/07/2024) Humiliation, Afraid, Rape, and Kick questionnaire Fear of Current or Ex-Partner: No Emotionally Abused: No Physically Abused: No Sexually Abused: No Housing Stability: Low Risk (10/30/2023) Housing Stability Vital Sign Unable to Pay for Housing in the Last Year: No Number of Places Lived in the Last Year: 1 Unstable Housing in the Last Year: No Recent Concern: Housing Stability - High Risk (09/21/2023) Received from [facility] Housing Stability Vital Sign Unable to Pay for Housing in the Last Year: No Number of Places Lived in the Last Year: 3 Unstable Housing in the Last Year: No Family History: No family history on file. Medications Prior to Admission: Medications Prior to Admission Medication Sig Dispense Refill Last Dose cetirizine (ZyrTEC) 10 MG tablet Take 10 mg by mouth daily. Past Month cholecalciferol (Vitamin D3) 25 MCG (1000 UT) tablet Take by mouth daily. 01/06/2024 insulin lispro (HumaLOG) 100 UNIT/ML patient supplied pump Inject under the skin continuous. 01/07/2024 IRON, FERROUS SULFATE, PO Take by mouth. 01/07/2024 Vit-Fe Fumarate-FA ( 1+1 PO) Take 1 tablet by mouth daily. 01/07/2024 REVIEW OF SYSTEMS: Review of Systems Constitutional: Negative for chills and fever. Cardiovascular: Negative for chest pain. Gastrointestinal: Negative for abdominal pain, nausea and vomiting. Genitourinary: Negative for pelvic pain, vaginal bleeding, vaginal discharge and vaginal pain. Neurological: Negative for weakness. Labs: CBC,T&S,BGT PHYSICAL EXAM: Vitals: 01/08/24 0000 01/08/24 0255 01/08/24 0257 01/08/24 0300 BP: 107/63 Pulse: 104 101 94 104 Resp: 18 Temp: 36.9 C (98.4 F) TempSrc: Oral SpO2: 100% Weight: Height: General appearance: awake, alert, cooperative, no apparent distress, and appears stated age Neurologic: Awake, alert, oriented to name, place and time. Lungs: No increased work of breathing, good air exchange Abdomen: Soft, non tender, gravid, consistent with her gestational age Fetus: Presentation: Cephalic by U/S Hx of PTL: [place] given previously: No ASSESSMENT AND PLAN: LABOR DELIVERY ??? SCD's ONLY (labor through ambulation) SCD's PLUS Prophylactic Anticoagulation until discharge SCD's PLUS Prophylactic Anticoagulation for 6 weeks SCD's PLUS Therapeutic Anticoagulation for 6 weeks Vaginal Delivery [] BMI ? 40 kg/m2 Delivery All patients Vaginal Delivery [] BMI ? 40 kg/m2 AND [] Antepartum hospitalization ? 72 hours within the past month Delivery 1 Major Risk Factor: [] BMI ? 35 kg/m2 [] Low Risk Thrombophilia [] PPH+RBCs, IR, or operation [] Infection+Antibiotics [] Antepartum hospitalization ? 72 hours within the past month [] PMH: Sickle Cell, SLE, Cardiac Dz, Active IBD, Active Cancer, Nephrotic Syndrome OR 2 Minor Risk Factors: [] Multiple gestation [] Age > 40 [] PPH ? 1,000cc [] (+)FMH of VTE [] Smoker [] Preeclampsia [] BMI ? 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), Prothrombin (homozygous), FVL+Prothrombin (heterozygous), Antithrombin III, APLS VTE Prophylaxis: Not Indicated Admission: Admit to L&D FHR: Category 1, heart monitoring CEFM Labs: GBS collected GC/CT collected Urine collected Type&Screen collected Serum Labs BGT Consults: MFM Imaging: Indicated/ordered Diet: Gestational CCD Testing: TBD Timing and Route of Delivery: TBD Medications: Neuroprotection Not indicated Tocolysis Not indicated Antibiotics Not indicated Steroids: Betamethasone - not indicated TIDM - Follows with cMFM for management - Omnipod and dexcom G6 - Recent BGT logs reviewed and noted that BGTs 200s between 3-9PM - Patient was recommended for admission for optimization - Current plan to adjust ICR from 3-9 pm to 1:1 - Current pump settings New Pump settings: Active insulin time: 2 hrs Basals: Max basal rate 2.4 units/hour AUTOMODE MN 0.65 0600 0.55 1000 0.6 2000 0.65 I:C R: MN 11.0 > 8 0600 7.5 1000 1.5 1700 1.5 ISF: MN 60 ->25 0600 40 -> 25 2000 40 -> 25 Target Range MN 110 0600 110 0800 110 - BGT on admission 79 - Plan for BGTs Fasting, pre and 1hr PP and 0300 Polyhydramnios - ALLI >26 on 01/03 - Plan for Growth US/BPP in the AM PreEwoSF - Met criteria on admission with mild range BP - PreE lab on admission negative - UPC 0.34 - Asymptomatic Chronic Anemia - CBC on admission 8.0 - Ferritin ordered on admission - Consider venofer infusion during inpatient POTS - Asymptomatic on admission Hx Kidney Stone - Had lithotripsy and stent in Jul 2022 IUP @ 30w4d - Dating by 9w3d US - Breech on 01/07 - Monitoring: CEFM - Diet: Gestational CCD - BMZ deferred Discussed with Dr Sharma, who agrees with plan. Beatriz Lindquist DO 01/08/2024, 4:00 AM Cc: Jolene Estevez DO Associated attestation - Ivan Sharma DO - 01/08/2024 7:51 AM EDT Patient admitted overnight educational psychologist due to sub optimal diabetes control in the setting of type one diabetes and on insulin pump therapy. ICR adjusted. Further management per MFM team based on BG pattern. [facility] [id number] History and physical note* Beatriz Lindquist DO - 01/07/2024 11:59 PM EDT Department of Maternal Medicine History and Physical CHIEF COMPLAINT: T1DM Optimization HISTORY OF PRESENT ILLNESS: The patient is a 18 y.o. female at 30w4d. OB History 2 Para 0 Term 0 0 AB 1 Living 0 SAB 1 IAB 0 Ectopic 0 Multiple 0 Live Births 0 Patient presents with a chief complaint as above and is being admitted for TIDM optimization Transport: No Prior Hospitalizations: Yes 10/30/23 Estimated Due Date: Estimated Date of Delivery: 03/14/24 CARE: Complications: See Below PAST OB HISTORY: OB History 2 Para 0 Term 0 0 AB 1 Living 0 SAB 1 IAB 0 Ectopic 0 Multiple 0 Live Births 0 Detailed OB History G1 SAB G2 Current Past Medical History: Past Medical History: Diagnosis Date Anemia Anxiety Depression Diabetes mellitus affecting Kidney stone Orthostatic intolerance POTS (postural orthostatic tachycardia syndrome) Past Surgical History: Past Surgical History: Procedure Laterality Date KIDNEY STONE SURGERY Allergies: Patient has no known allergies. Social History: Social History Socioeconomic History Marital status: Significant Other Spouse name: Kevin BARR Number of children: Not on file Years of education: Not on file Highest education level: Not on file Occupational History Not on file Tobacco Use Smoking status: Never Smokeless tobacco: Never Vaping Use Vaping status: Never Used Substance and Sexual Activity Alcohol use: Never Drug use: Never Sexual activity: Yes Other Topics Concern Not on file Social History Narrative Not on file Social Determinants of Health Financial Resource Strain: Not on file Food Insecurity: No Food Insecurity (10/30/2023) Hunger Vital Sign Worried About Running Out of Food in the Last Year: Never true Ran Out of Food in the Last Year: Never true Transportation Needs: No Transportation Needs (10/30/2023) PRAPARE - Transportation Lack of Transportation (Medical): No Lack of Transportation (Non-Medical): No Physical Activity: Not on file Stress: Not on file Social Connections: Not on file Intimate Partner Violence: Not At Risk (01/07/2024) Humiliation, Afraid, Rape, and Kick questionnaire Fear of Current or Ex-Partner: No Emotionally Abused: No Physically Abused: No Sexually Abused: No Housing Stability: Low Risk (10/30/2023) Housing Stability Vital Sign Unable to Pay for Housing in the Last Year: No Number of Places Lived in the Last Year: 1 Unstable Housing in the Last Year: No Recent Concern: Housing Stability - High Risk (09/21/2023) Received from [facility], [facility] Housing Stability Vital Sign Unable to Pay for Housing in the Last Year: No Number of Places Lived in the Last Year: 3 Unstable Housing in the Last Year: No Family History: No family history on file. Medications Prior to Admission: Medications Prior to Admission Medication Sig Dispense Refill Last Dose cetirizine (ZyrTEC) 10 MG tablet Take 10 mg by mouth daily. Past Month cholecalciferol (Vitamin D3) 25 MCG (1000 UT) tablet Take by mouth daily. 01/06/2024 insulin lispro (HumaLOG) 100 UNIT/ML patient supplied pump Inject under the skin continuous. 01/07/2024 IRON, FERROUS SULFATE, PO Take by mouth. 01/07/2024 Vit-Fe Fumarate-FA ( 1+1 PO) Take 1 tablet by mouth daily. 01/07/2024 REVIEW OF SYSTEMS: Review of Systems Constitutional: Negative for chills and fever. Cardiovascular: Negative for chest pain. Gastrointestinal: Negative for abdominal pain, nausea and vomiting. Genitourinary: Negative for pelvic pain, vaginal bleeding, vaginal discharge and vaginal pain. Neurological: Negative for weakness. Labs: CBC,T&S,BGT PHYSICAL EXAM: Vitals: 01/08/24 0000 01/08/24 0255 01/08/24 0257 01/08/24 0300 BP: 107/63 Pulse: 104 101 94 104 Resp: 18 Temp: 36.9 C (98.4 F) TempSrc: Oral SpO2: 100% Weight: Height: General appearance: awake, alert, cooperative, no apparent distress, and appears stated age Neurologic: Awake, alert, oriented to name, place and time. Lungs: No increased work of breathing, good air exchange Abdomen: Soft, non tender, gravid, consistent with her gestational age Fetus: Presentation: Cephalic by U/S Hx of PTL: [place] given previously: No ASSESSMENT AND PLAN: LABOR DELIVERY ??? SCD's ONLY (labor through ambulation) SCD's PLUS Prophylactic Anticoagulation until discharge SCD's PLUS Prophylactic Anticoagulation for 6 weeks SCD's PLUS Therapeutic Anticoagulation for 6 weeks Vaginal Delivery [] BMI ? 40 kg/m2 Delivery All patients Vaginal Delivery [] BMI ? 40 kg/m2 AND [] Antepartum hospitalization ? 72 hours within the past month Delivery 1 Major Risk Factor: [] BMI ? 35 kg/m2 [] Low Risk Thrombophilia [] PPH+RBCs, IR, or operation [] Infection+Antibiotics [] Antepartum hospitalization ? 72 hours within the past month [] PMH: Sickle Cell, SLE, Cardiac Dz, Active IBD, Active Cancer, Nephrotic Syndrome OR 2 Minor Risk Factors: [] Multiple gestation [] Age > 40 [] PPH ? 1,000cc [] (+)FMH of VTE [] Smoker [] Preeclampsia [] BMI ? 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), Prothrombin (homozygous), FVL+Prothrombin (heterozygous), Antithrombin III, APLS VTE Prophylaxis: Not Indicated Admission: Admit to L&D FHR: Category 1, heart monitoring CEFM Labs: GBS collected GC/CT collected Urine collected Type&Screen collected Serum Labs BGT Consults: MFM Imaging: Indicated/ordered Diet: Gestational CCD Testing: TBD Timing and Route of Delivery: TBD Medications: Neuroprotection Not indicated Tocolysis Not indicated Antibiotics Not indicated Steroids: Betamethasone - not indicated TIDM - Follows with cMFM for management - Omnipod and dexcom G6 - Recent BGT logs reviewed and noted that BGTs 200s between 3-9PM - Patient was recommended for admission for optimization - Current plan to adjust ICR from 3-9 pm to 1:1 - Current pump settings New Pump settings: Active insulin time: 2 hrs Basals: Max basal rate 2.4 units/hour AUTOMODE MN 0.65 0600 0.55 1000 0.6 2000 0.65 I:C R: MN 11.0 > 8 0600 7.5 1000 1.5 1700 1.5 ISF: MN 60 ->25 0600 40 -> 25 2000 40 -> 25 Target Range MN 110 0600 110 0800 110 - BGT on admission 79 - Plan for BGTs Fasting, pre and 1hr PP and 0300 Polyhydramnios - ALLI >26 on 01/03 - Plan for Growth US/BPP in the AM PreEwoSF - Met criteria on admission with mild range BP - PreE lab on admission negative - UPC 0.34 - Asymptomatic Chronic Anemia - CBC on admission 8.0 - Ferritin ordered on admission - Consider venofer infusion during inpatient POTS - Asymptomatic on admission Hx Kidney Stone - Had lithotripsy and stent in Jul 2022 IUP @ 30w4d - Dating by 9w3d US - Breech on 01/07 - Monitoring: CEFM - Diet: Gestational CCD - BMZ deferred Discussed with Dr Sharma, who agrees with plan. Beatriz Lindquist DO 01/08/2024, 4:00 AM Cc: Jolene Estevez DO Associated attestation - Ivan Sharma DO - 01/08/2024 7:51 AM EDT Patient admitted overnight educational psychologist due to sub optimal diabetes control in the setting of type one diabetes and on insulin pump therapy. ICR adjusted. Further management per MFM team based on BG pattern. documented in this [facility]07-06-2024 Hospital Discharge instructions* Discharge Instructions* Donna Morales DO - 01/02/2024 8:39 AM EDT Follow up appointment with your doctor/machine operators - Keep next scheduled appointment Activity - Normal Activity Call your doctor/machine operators if you have: - leaking fluid - vaginal bleeding - regular contractions: More than 6 contractions in one hour - decreased movement - worsening abdominal (belly) pain - headache, blurry vision, increased swelling, upper abdominal pain If you are going home with contractions that are uncomfortable/painful- we recommend these coping strategies: rhythmic breathing, hydrotherapy, imagery or visualization, gentle massage, walking and changing your position. Treatment Verification: Catalina Capellan was assessed on Labor and Delivery for a related visit on 01/02/24 . Donna Morales DO [facility] documented in this [facility]06-24-2024 Hospital Discharge instructions* Discharge Instructions* Damaris Hanson DO - 12/21/2023 1:49 PM EDT Follow up appointment with your doctor/machine operators - Keep next scheduled appointment Activity - Normal Activity Call your doctor/machine operators if you have: - leaking fluid - vaginal bleeding - regular contractions: Every 5 minutes or closer for one hour - decreased movement - worsening abdominal (belly) pain - headache, blurry vision, increased swelling, upper abdominal pain If you are going home with contractions that are uncomfortable/painful- we recommend these coping strategies: rhythmic breathing, hydrotherapy, imagery or visualization, gentle massage, walking and changing your position. Treatment Verification: Catalina Capellan was assessed on Labor and Delivery for a related visit on 12/21/23 . Damaris Hanson DO [facility] documented in this [facility]06-24-2024 History of Present illness Narrative* Damaris Hanson DO - 12/21/2023 1:03 PM EDT Department of Obstetrics and Gynecology Labor and Delivery Triage Note CHIEF COMPLAINT: 12/04 BPP HISTORY OF PRESENT ILLNESS: The patient is a 18 y.o. 28w0d. OB History 2 Para 0 Term 0 0 AB 1 Living 0 SAB 1 IAB 0 Ectopic 0 Multiple 0 Live Births 0 Patient presents with a chief complaint as above. Patient sent in from office for 12/04 BPP, off for breathing. She gets weekly monitoring for T1DM. She denies DFM/VB/LOF/CTX Estimated Due Date: Estimated Date of Delivery: 03/14/24 PAST MEDICAL HISTORY: Past Medical History: Diagnosis Date Anxiety Depression Diabetes mellitus affecting Kidney stone Orthostatic intolerance PAST SURGICAL HISTORY: Past Surgical History: Procedure Laterality Date KIDNEY STONE SURGERY SOCIAL HISTORY: reports that she has never smoked. She has never used smokeless tobacco. She reports that she does not drink alcohol and does not use drugs. MEDICATIONS: Prior to Admission medications Medication Sig Start Date End Date Taking? Authorizing Provider cetirizine (ZyrTEC) 10 MG tablet Take 10 mg by mouth daily. Yes Historical Provider, cholecalciferol (Vitamin D3) 25 MCG (1000 UT) tablet Take by mouth daily. 11/26/23 Yes Historical Provider, insulin lispro (HumaLOG) 100 UNIT/ML patient supplied pump Inject under the skin continuous. Yes Historical Provider, IRON, FERROUS SULFATE, PO Take by mouth. Yes Historical Provider, Vit-Fe Fumarate-FA ( 1+1 PO) Take 1 tablet by mouth daily. Yes Historical Provider, CARE: Complicated by: T1DM REVIEW OF SYSTEMS: Pertinent items are noted in HPI. APPEARANCE: Pain: No PHYSICAL EXAM: Vital Signs: VS wnl-reviewed/Respirations normal effort Vitals: 12/21/23 1225 12/21/23 1226 12/21/23 1230 BP: 123/80 Pulse: 113 Resp: 16 Temp: 36.8 C (98.2 F) TempSrc: Oral SpO2: 100% 100% Weight: 161 lb (73 kg) Height: 5' 6 (1.676 m) Abdomen: soft, NT, ND, no rebound/guarding Uterus: gravid/non-tender LE Edema: trace Speculum Exam: no pooling of fluid seen, Nitrizine test is negative heart rate: Category I Cervix: visibly closed Contraction frequency: none Membranes: Intact RESULTS: NST: Reactive TRIAGE COURSE: VTX on BSUS. VSS. SSE unremarkable, closed on SSE, no CTX on toco, low suspicion forPTL. FHT Cat I. Damaris Hanson DO 12/21/2023 1:04 PM Cat I and reactive. BGT 79 on monitor. Patient has follow up appointment on . Triage returnprecautions given. Damaris Hanson DO 12/21/2023 1:48 PM IMPRESSION: 8/10 BPP, normal fluid in office Pain assessment and plan: none DISCUSSED WITH PNC PROVIDER: Dr. Pham DISPOSITION: Discharge to Home Associated attestation - Luis Rosario DO - 12/21/2023 2:26 PM EDT Hospital Care (Independent): I independently saw and evaluated the patient. I agree with the findings and plan of care as documented in the resident's note. Patient notes fever at home that lasted 2hours. + sick contact (significant other's mom has a cold). She notes bump over back of left ear. Palpation of enlarged area that is slightly tender to the touch - likely posterior auricular lymph node, also mildly enlarged right submandibular lymph node. Patient's VSS, afebrile here. Overall, patient is well appearing with reactive FHT. documented in this [facility]06-08-2024 Telephone encounter Note* Telephone Encounter - Geovanny Hurtado - 12/05/2023 11:36 AM EDT DANYEL called to schedule pt for TTE ordered by Flores on 10.07.23 1st attempt//No My Chart//NS 4.23//pt declined scheduling stating that told her she doesn't needany longer//TE to office// 6.8.24 [id number] Miscellaneous Notes* Telephone Encounter - Geovanny Hurtado - 12/05/2023 11:36 AM EDT DANYEL called to schedule pt for TTE ordered by Flores on 10.07.23 1st attempt//No My Chart//NS 4.23//pt declined scheduling stating that told her she doesn't needany longer//TE to office// 6.8.24 KGK documented in this [facility]05-03-2024 Miscellaneous Notes* Significant Event - Josy Fung DO - 10/30/2023 11:57 PM EDT Notified by RN that pt was concerned about her care and had some questions and was requesting discharge from the hospital. I went and talked to the pt, she states that she was concerned as the nursedidn't explain things very well regarding her insulin. I apologized for any confusion and discussed that since her pump was out of supplies that we were giving both long acting and short acting insulin. Pt had declined her night dose of NPH. Asked what we could do about her concerns, she was unsure. Pt asking for discharge, discussed that we would recommend staying to make sure that her BGTs were well controlled while transitioning back to her pump once her boyfriend arrives with her supplies.Told her that we would recommend that she stays and will likely be discharged home tomorrow. Pt wishes to talk to her boyfriend. Told her to put on her call light after she talked to him and I could come and talk to them. Due to other events on the floor, I was unable to go back into the pt's room once her boyfriend gotthere. I was called by RN and notified that she was still requesting to leave, as I was in the middle of a delivery, told her she could wait to talk to me or sign out Against Medical Advice. Pt endedup leaving Against Medical Advice before I could talk to her again. Dr. Rodriguez updated. documented in this [facility]05-03-2024 Note* Significant Event - Josy Fung DO - 10/30/2023 11:57 PM EDT Notified by RN that pt was concerned about her care and had some questions and was requesting discharge from the hospital. I went and talked to the pt, she states that she was concerned as the nursedidn't explain things very well regarding her insulin. I apologized for any confusion and discussed that since her pump was out of supplies that we were giving both long acting and short acting insulin. Pt had declined her night dose of NPH. Asked what we could do about her concerns, she was unsure. Pt asking for discharge, discussed that we would recommend staying to make sure that her BGTs were well controlled while transitioning back to her pump once her boyfriend arrives with her supplies.Told her that we would recommend that she stays and will likely be discharged home tomorrow. Pt wishes to talk to her boyfriend. Told her to put on her call light after she talked to him and I could come and talk to them. Due to other events on the floor, I was unable to go back into the pt's room once her boyfriend gotthere. I was called by RN and notified that she was still requesting to leave, as I was in the middle of a delivery, told her she could wait to talk to me or sign out Against Medical Advice. Pt endedup leaving Against Medical Advice before I could talk to her again. Dr. Rodriguez updated. [employer] Phone: [phone] 946-282705-03-2024 Note* Significant Event - Josy Fung DO - 10/30/2023 11:57 PM EDT Notified by RN that pt was concerned about her care and had some questions and was requesting discharge from the hospital. I went and talked to the pt, she states that she was concerned as the nursedidn't explain things very well regarding her insulin. I apologized for any confusion and discussed that since her pump was out of supplies that we were giving both long acting and short acting insulin. Pt had declined her night dose of NPH. Asked what we could do about her concerns, she was unsure. Pt asking for discharge, discussed that we would recommend staying to make sure that her BGTs were well controlled while transitioning back to her pump once her boyfriend arrives with her supplies.Told her that we would recommend that she stays and will likely be discharged home tomorrow. Pt wishes to talk to her boyfriend. Told her to put on her call light after she talked to him and I could come and talk to them. Due to other events on the floor, I was unable to go back into the pt's room once her boyfriend gotthere. I was called by RN and notified that she was still requesting to leave, as I was in the middle of a delivery, told her she could wait to talk to me or sign out Against Medical Advice. Pt endedup leaving Against Medical Advice before I could talk to her again. Dr. Rodriguez updated. [facility] [employer] Phone: [phone] Nurse Note* Calista Tuttle RN - 10/30/2023 11:55 PM EDT Pt wanting to leave AMA. Pt explained risks of leaving. Pt verbalizes understanding. Paperwork signed. [place] notified [id number] Nurse Note* Calista Tuttle RN - 10/30/2023 11:55 PM EDT Pt wanting to leave AMA. Pt explained risks of leaving. Pt verbalizes understanding. Paperwork signed. [place] notified documented in this [facility]05-03-2024 History and physical note* Oscar Wells DO - 10/30/2023 1:06 PM EDT Department of Maternal Medicine History and Physical CHIEF COMPLAINT: T1DM optimization HISTORY OF PRESENT ILLNESS: The patient is a 17 y.o. female at 20w1d. OB History 2 Para Term AB 1 Living SAB 1 IAB Ectopic Multiple Live Births Patient presents with a chief complaint as above and is being admitted for uncontrolled diabetes. Follows with cMFM for diabetes with omni pod/ dexcom, however ran out of Rx over last 3 days. Was seen in office today to have Rx refilled but noted BGTs 200s-300s over last week and was sent to officefor optimization. Transport: No Prior Hospitalizations: yes Estimated Due Date: Estimated Date of Delivery: 03/17/24 CARE: Complications: See below PAST OB HISTORY: OB History 2 Para Term AB 1 Living SAB 1 IAB Ectopic Multiple Live Births Detailed OB History SAB Current Past Medical History: Past Medical History: Diagnosis Date Anxiety Depression Diabetes mellitus affecting Kidney stone Past Surgical History: No past surgical history on file. Allergies: Patient has no known allergies. Social History: Social History Socioeconomic History Marital status: Single Spouse name: Not on file Number of children: Not on file Years of education: Not on file Highest education level: Not on file Occupational History Not on file Tobacco Use Smoking status: Never Smokeless tobacco: Not on file Substance and Sexual Activity Alcohol use: Never Drug use: Never Sexual activity: Yes Other Topics Concern Not on file Social History Narrative Not on file Social Determinants of Health Financial Resource Strain: Not on file Food Insecurity: Not on file Transportation Needs: No Transportation Needs (08/09/2023) PRAPARE - Transportation Lack of Transportation (Medical): No Lack of Transportation (Non-Medical): No Physical Activity: Not on file Stress: Not on file Social Connections: Not on file Intimate Partner Violence: Not At Risk (08/09/2023) Humiliation, Afraid, Rape, and Kick questionnaire Fear of Current or Ex-Partner: No Emotionally Abused: No Physically Abused: No Sexually Abused: No Housing Stability: Low Risk (08/09/2023) Housing Stability Vital Sign Unable to Pay for Housing in the Last Year: No Number of Places Lived in the Last Year: 1 Unstable Housing in the Last Year: No Family History: No family history on file. Medications Prior to Admission: Medications Prior to Admission Medication Sig Dispense Refill Last Dose cetirizine (ZyrTEC) 10 MG tablet Take 10 mg by mouth daily. insulin lispro (HumaLOG) 100 UNIT/ML patient supplied pump Inject under the skin continuous. Vit-Fe Fumarate-FA ( 1+1 PO) Take 1 tablet by mouth daily. REVIEW OF SYSTEMS: Review of Systems Constitutional: Negative for activity change, chills and fever. Respiratory: Negative for chest tightness and shortness of breath. Cardiovascular: Negative for chest pain. Gastrointestinal: Negative for abdominal distention, nausea and vomiting. Genitourinary: Negative for pelvic pain, vaginal discharge and vaginal pain. Musculoskeletal: Negative for arthralgias. Neurological: Negative for dizziness, facial asymmetry, light-headedness and headaches. Psychiatric/Behavioral: Negative for agitation, behavioral problems and confusion. Labs: CBC: Lab Results Component Value Date WBC 12.4 10/30/2023 RBC 3.91 (L) 10/30/2023 HGB 10.2 (L) 10/30/2023 HCT 31.5 (L) 10/30/2023 MCV 80.6 10/30/2023 MCH 26.1 10/30/2023 MCHC 32.4 10/30/2023 RDW 14.5 10/30/2023 PLT 261 10/30/2023 MPV 11.7 10/30/2023 and CMP: Lab Results Component Value Date NA 132 (L) 10/30/2023 K 3.9 10/30/2023 CL 103 10/30/2023 CO2 21 (L) 10/30/2023 BUN 5 (L) 10/30/2023 CREATININE 0.26 (L) 10/30/2023 GLUCOSE 96 10/30/2023 PROT 7.4 10/30/2023 CALCIUM 9.6 10/30/2023 BILITOT 0.7 10/30/2023 ALKPHOS 80 10/30/2023 AST 38 10/30/2023 ALT 12 10/30/2023 PHYSICAL EXAM: There were no vitals filed for this visit. General appearance: awake, alert, cooperative, no apparent distress, and appears stated age Neurologic: Awake, alert, oriented to name, place and time. Lungs: No increased work of breathing, good air exchange Abdomen: Soft, non tender, gravid, consistent with her gestational age Sterile Speculum Exam: Membranes: Intact HSV Lesions: not applicable Cervix: defer Contraction frequency: none ASSESSMENT AND PLAN: LABOR DELIVERY ??? SCD's ONLY (labor through ambulation) SCD's PLUS Prophylactic Anticoagulation until discharge SCD's PLUS Prophylactic Anticoagulation for 6 weeks SCD's PLUS Therapeutic Anticoagulation for 6 weeks Vaginal Delivery [] BMI ? 40 kg/m2 Delivery All patients Vaginal Delivery [] BMI ? 40 kg/m2 AND [] Antepartum hospitalization ? 72 hours within the past month Delivery 1 Major Risk Factor: [] BMI ? 35 kg/m2 [] Low Risk Thrombophilia [] PPH+RBCs, IR, or operation [] Infection+Antibiotics [] Antepartum hospitalization ? 72 hours within the past month [] PMH: Sickle Cell, SLE, Cardiac Dz, Active IBD, Active Cancer, Nephrotic Syndrome OR 2 Minor Risk Factors: [] Multiple gestation [] Age > 40 [] PPH ? 1,000cc [] (+)FMH of VTE [] Smoker [] Preeclampsia [] BMI ? 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), Prothrombin (homozygous), FVL+Prothrombin (heterozygous), Antithrombin III, APLS VTE Prophylaxis: Not Indicated Admission: Admit to Antepartum (PNU) FHR: 138 bpm Labs: GBS not obtained GC/CT ordered, but not yet obtained Urine ordered, but not yet obtained FFN not obtained Type&Screen ordered, but not yet obtained Serum Labs CBC, CMP Consults: None Imaging: Not indicated Diet: General Testing: TBD Timing and Route of Delivery: TBD Medications: Neuroprotection Not indicated Tocolysis Not indicated Antibiotics Not indicated Steroids: Betamethasone - not indicated T1DM - Follows with cMFM for management - Omnipod and dexcom G6, however did run out of supplies with week - Current settings available in CareEverywhere - Seen today in office and no logs x2d as patient did not have trasnmitter. BGTs riding 200-300s and was sent to [facility] for optimization - Omnipod pump did recently this morning as well - Plan to admit for split dose control until family member is able to product picker supplies from pharmacy - NPH 25/04 and log - BGTs fasting, 1hr PP and 0300 Abnormal TFTs - 10/25 wnl - TSH pending Hx UTI - 09/21 seen in ED and treated with Keflex - Urine cx pending Yeast infection - Vaginitis panel pending - Will treat if indicated based on results IUP @ 20w1d - Dating by 9w3d - Monitoring: FHT daily - Diet: General - BMZ deferred Discussed with Dr Rodriguez, who agrees with plan. Oscar Wells DO 10/30/2023, 1:07 PM Cc: Hugo Rodriguez MD Associated attestation - Hugo Rodriguez MD - 10/30/2023 3:36 PM EDT Maternal Medicine attending attestation: I reviewed and agree with the care provided by the resident during or immediately following the visit including the patient's medical history, the resident's findings in the physical exam, patient's diagnosis and treatment plan. Sent from the office omnipod and CGM sensors. Recommend SDI until these can be replaced andthen okay for recalibrating and adjusting her insulin pump settings Wet prep and urine culture also sent today with admission The total patient time of the visit was 30 minutes, of which was greater than 50% of the time was spent counseling and coordinating care. [facility] [id number] History and physical note* Oscar Wells DO - 10/30/2023 1:06 PM EDT Department of Maternal Medicine History and Physical CHIEF COMPLAINT: T1DM optimization HISTORY OF PRESENT ILLNESS: The patient is a 17 y.o. female at 20w1d. OB History 2 Para Term AB 1 Living SAB 1 IAB Ectopic Multiple Live Births Patient presents with a chief complaint as above and is being admitted for uncontrolled diabetes. Follows with [facility] for diabetes with omni pod/ dexcom, however ran out of Rx over last 3 days. Was seen in office today to have Rx refilled but noted BGTs 200s-300s over last week and was sent to officefor optimization. Transport: No Prior Hospitalizations: yes Estimated Due Date: Estimated Date of Delivery: 03/17/24 CARE: Complications: See below PAST OB HISTORY: OB History 2 Para Term AB 1 Living SAB 1 IAB Ectopic Multiple Live Births Detailed OB History SAB Current Past Medical History: Past Medical History: Diagnosis Date Anxiety Depression Diabetes mellitus affecting Kidney stone Past Surgical History: No past surgical history on file. Allergies: Patient has no known allergies. Social History: Social History Socioeconomic History Marital status: Single Spouse name: Not on file Number of children: Not on file Years of education: Not on file Highest education level: Not on file Occupational History Not on file Tobacco Use Smoking status: Never Smokeless tobacco: Not on file Substance and Sexual Activity Alcohol use: Never Drug use: Never Sexual activity: Yes Other Topics Concern Not on file Social History Narrative Not on file Social Determinants of Health Financial Resource Strain: Not on file Food Insecurity: Not on file Transportation Needs: No Transportation Needs (08/09/2023) PRAPARE - Transportation Lack of Transportation (Medical): No Lack of Transportation (Non-Medical): No Physical Activity: Not on file Stress: Not on file Social Connections: Not on file Intimate Partner Violence: Not At Risk (08/09/2023) Humiliation, Afraid, Rape, and Kick questionnaire Fear of Current or Ex-Partner: No Emotionally Abused: No Physically Abused: No Sexually Abused: No Housing Stability: Low Risk (08/09/2023) Housing Stability Vital Sign Unable to Pay for Housing in the Last Year: No Number of Places Lived in the Last Year: 1 Unstable Housing in the Last Year: No Family History: No family history on file. Medications Prior to Admission: Medications Prior to Admission Medication Sig Dispense Refill Last Dose cetirizine (ZyrTEC) 10 MG tablet Take 10 mg by mouth daily. insulin lispro (HumaLOG) 100 UNIT/ML patient supplied pump Inject under the skin continuous. Vit-Fe Fumarate-FA ( 1+1 PO) Take 1 tablet by mouth daily. REVIEW OF SYSTEMS: Review of Systems Constitutional: Negative for activity change, chills and fever. Respiratory: Negative for chest tightness and shortness of breath. Cardiovascular: Negative for chest pain. Gastrointestinal: Negative for abdominal distention, nausea and vomiting. Genitourinary: Negative for pelvic pain, vaginal discharge and vaginal pain. Musculoskeletal: Negative for arthralgias. Neurological: Negative for dizziness, facial asymmetry, light-headedness and headaches. Psychiatric/Behavioral: Negative for agitation, behavioral problems and confusion. Labs: CBC: Lab Results Component Value Date WBC 12.4 10/30/2023 RBC 3.91 (L) 10/30/2023 HGB 10.2 (L) 10/30/2023 HCT 31.5 (L) 10/30/2023 MCV 80.6 10/30/2023 MCH 26.1 10/30/2023 MCHC 32.4 10/30/2023 RDW 14.5 10/30/2023 PLT 261 10/30/2023 MPV 11.7 10/30/2023 and CMP: Lab Results Component Value Date NA 132 (L) 10/30/2023 K 3.9 10/30/2023 CL 103 10/30/2023 CO2 21 (L) 10/30/2023 BUN 5 (L) 10/30/2023 CREATININE 0.26 (L) 10/30/2023 GLUCOSE 96 10/30/2023 PROT 7.4 10/30/2023 CALCIUM 9.6 10/30/2023 BILITOT 0.7 10/30/2023 ALKPHOS 80 10/30/2023 AST 38 10/30/2023 ALT 12 10/30/2023 PHYSICAL EXAM: There were no vitals filed for this visit. General appearance: awake, alert, cooperative, no apparent distress, and appears stated age Neurologic: Awake, alert, oriented to name, place and time. Lungs: No increased work of breathing, good air exchange Abdomen: Soft, non tender, gravid, consistent with her gestational age Sterile Speculum Exam: Membranes: Intact HSV Lesions: not applicable Cervix: defer Contraction frequency: none ASSESSMENT AND PLAN: LABOR DELIVERY ??? SCD's ONLY (labor through ambulation) SCD's PLUS Prophylactic Anticoagulation until discharge SCD's PLUS Prophylactic Anticoagulation for 6 weeks SCD's PLUS Therapeutic Anticoagulation for 6 weeks Vaginal Delivery [] BMI ? 40 kg/m2 Delivery All patients Vaginal Delivery [] BMI ? 40 kg/m2 AND [] Antepartum hospitalization ? 72 hours within the past month Delivery 1 Major Risk Factor: [] BMI ? 35 kg/m2 [] Low Risk Thrombophilia [] PPH+RBCs, IR, or operation [] Infection+Antibiotics [] Antepartum hospitalization ? 72 hours within the past month [] PMH: Sickle Cell, SLE, Cardiac Dz, Active IBD, Active Cancer, Nephrotic Syndrome OR 2 Minor Risk Factors: [] Multiple gestation [] Age > 40 [] PPH ? 1,000cc [] (+)FMH of VTE [] Smoker [] Preeclampsia [] BMI ? 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), Prothrombin (homozygous), FVL+Prothrombin (heterozygous), Antithrombin III, APLS VTE Prophylaxis: Not Indicated Admission: Admit to Antepartum (PNU) FHR: 138 bpm Labs: GBS not obtained GC/CT ordered, but not yet obtained Urine ordered, but not yet obtained FFN not obtained Type&Screen ordered, but not yet obtained Serum Labs CBC, CMP Consults: None Imaging: Not indicated Diet: General Testing: TBD Timing and Route of Delivery: TBD Medications: Neuroprotection Not indicated Tocolysis Not indicated Antibiotics Not indicated Steroids: Betamethasone - not indicated T1DM - Follows with cMFM for management - Omnipod and dexcom G6, however did run out of supplies with week - Current settings available in CareEverywhere - Seen today in office and no logs x2d as patient did not have trasnmitter. BGTs riding 200-300s and was sent to [facility] for optimization - Omnipod pump did recently this morning as well - Plan to admit for split dose control until family member is able to product picker supplies from pharmacy - NPH 25/04 and log - BGTs fasting, 1hr PP and 0300 Abnormal TFTs - 10/25 wnl - TSH pending Hx UTI - 09/21 seen in ED and treated with Keflex - Urine cx pending Yeast infection - Vaginitis panel pending - Will treat if indicated based on results IUP @ 20w1d - Dating by 9w3d - Monitoring: FHT daily - Diet: General - BMZ deferred Discussed with Dr Rodriguez, who agrees with plan. Oscar Wells DO 10/30/2023, 1:07 PM Cc: Hugo Rodriguez MD Associated attestation - Hugo Rodriguez MD - 10/30/2023 3:36 PM EDT Maternal Medicine attending attestation: I reviewed and agree with the care provided by the resident during or immediately following the visit including the patient's medical history, the resident's findings in the physical exam, patient's diagnosis and treatment plan. Sent from the office omnipod and CGM sensors. Recommend SDI until these can be replaced andthen okay for recalibrating and adjusting her insulin pump settings Wet prep and urine culture also sent today with admission The total patient time of the visit was 30 minutes, of which was greater than 50% of the time was spent counseling and coordinating care. documented in this [facility]04-25-2024 Telephone encounter Note* Telephone Encounter - Kelsy Tee PA-C - 10/22/2023 1:21 PM EDT I called and discussed urine culture with patient. It grew over 100,000 Staph epidermidis, could bejust normal kishore. She is still having some urinary symptoms however. I did recommend she call her GUIDANCE ADVISER to follow-up as this was not a clear UTI. Finish keflex. Recommended ER for worsening symptoms. Patient voiced understanding and agreement with plan. [facility]04-25-2024 Miscellaneous Notes* Telephone Encounter - Kelsy Tee PA-C - 10/22/2023 1:21 PM EDT I called and discussed urine culture with patient. It grew over 100,000 Staph epidermidis, could bejust normal kishore. She is still having some urinary symptoms however. I did recommend she call her GUIDANCE ADVISER to follow-up as this was not a clear UTI. Finish keflex. Recommended ER for worsening symptoms. Patient voiced understanding and agreement with plan. [facility] History of Present illness Narrative* Kelsy Tee PA-C - 10/20/2023 11:23 AM EDT This note was created using [employer]aph[employer]. Subjective Catalina Capellan is a 17 year old female. HPI Patient presents with frequency, dysuria, urgency over the past 3 days. Denies vaginal discharge. She is currently 19 weeks . She states she had her anatomy scan today and everything looked good with the baby. She denies any blood in urine. She did have some flank pain a couple days ago butthat had resolved. She did have a kidney stone during and has had UTIs. He is type I diabetic. She states her blood sugars really run in the low 100s. She just drank a [employer] drink just prior to coming in here so right now is 197 but otherwise has been well-controlled. She denies vomiting. She has had some nausea. No diarrhea. She has not drink any water yet today. She felt feverish a couple days ago but none today. No temp taken. Review of Systems HENT: Negative. Respiratory: Negative. Cardiovascular: Negative. Gastrointestinal: Positive for nausea. Negative for abdominal pain, diarrhea and vomiting. Genitourinary: Positive for dysuria, frequency and urgency. Negative for hematuria, menstrual problem, vaginal bleeding, vaginal discharge and vaginal pain. All other systems reviewed and are negative. PAST MEDICAL HISTORY Diagnosis Date Constipated Eczema Sprain of ligament of right ankle 04/10/2022 Type 1 diabetes (HCC) Current Outpatient Medications Medication Sig Dispense Refill Cetirizine (ZYRTEC) 10 mg cap Take by mouth. metoclopramide HCl (REGLAN) 10 mg tablet TAKE 1 TABLET BY MOUTH FOUR TIMES DAILY WITH MEALS AND AT NIGHT PNV no.95/ferrous fum/folic ac ( ORAL) Take by mouth. DEXCOM G6 SENSOR leny Use as directed. Change sensor every 10 days. ONETOUCH VERIO TEST STRIPS test strip Use as directed to test metered glucose 6- 8 times per day ONETOUCH VERIO FLEX METER Use as directed to test metered glucose insulin lispro (HUMALOG KWIKPEN) 100 unit/mL Inject up to 50units SQ daily as directed based on IC ratio and correction factor OMNIPOD 5 G6 INTRO KIT, GEN 5, crtg as directed. ONETOUCH DELICA PLUS LANCET 33 gauge Use as directed to test metered glucose 6-8 times per day UNIFINE PENTIPS PLUS 32 gauge x /32 Use as directed to administer insulin 4-6 times per day. cephALEXin (KEFLEX) 500 mg capsule Take 1 capsule by mouth three times a day for 7 days. 21 capsule0 ampicillin (PRINCIPEN) 500 mg capsule Take 1 capsule by mouth three times a day. (Patient not taking: Reported on 10/20/2023) 15 capsule 0 alcohol swabs Use as directed to test metered glucose and administer insulin. LANTUS SOLOSTAR U-100 INSULIN 100 unit/mL (3 mL) INJECT 30 UNITS SUBCUTANEOUSLY at night DIRECTED (subject to change) (Patient not taking: Reported on 08/13/2023) fluconazole (DIFLUCAN) 150 mg tablet Take 1 tablet by mouth once daily for 1 day. 1 tablet 0 fluconazole (DIFLUCAN) 150 mg tablet Take 1 tablet by mouth one time only for 1 dose. 1 tablet 0 triamcinolone acetonide (KENALOG) 0.1 % ointment Apply to affected area twice daily. For up to 2 weeks (Patient not taking: Reported on 04/15/2023) 30 g 0 LIDOCAINE VISCOUS 2 % solution Take 5-10 mL by mouth three times daily as needed. (Patient not taking: Reported on 07/30/2022) 100 mL 2 FLUoxetine (PROZAC) 20 mg capsule Take 20 mg by mouth. (Patient not taking: Reported on 04/08/2022) loratadine (CLARITIN) 10 mg tablet Take 10 mg by mouth. (Patient not taking: Reported on 08/13/2023) fluticasone (FLONASE) 50 mcg/actuation nasal spray Use 1 [place] in the nose. (Patient not taking: Reported on 08/02/2021 ) No current facility-administered medications for this visit. PAST SURGICAL HISTORY Procedure Laterality Date CYSTOSCOPY,INSERT URETHRAL STENT EGD LITHROTRIPSY FAMILY HISTORY Problem Relation Age of Onset other (Hysterectomy) Mother other (Other) Father Unknown GI Maternal Grandmother other (Sponge Kidney) Maternal Grandmother Hypertension Maternal Grandfather Heart Attack Maternal Grandfather Social History Tobacco Use Smoking status: Never Smokeless tobacco: Never Vaping Use Vaping Use: current everyday user Substances: Nicotine Devices: Pre-filled pod Substance Use Topics Alcohol use: Never Drug use: Never Objective BP 126/72 Pulse (!) 122 Temp 36.8 C (98.3 F) Resp 16 Wt 67.8 kg (149 lb 7.6 oz) LMP 06/08/2023 SpO2 98% Physical Exam Vitals reviewed. Constitutional: Appearance: Normal appearance. HENT: Head: Normocephalic and atraumatic. Mouth/Throat: Mouth: Mucous membranes are moist. Pharynx: Oropharynx is clear. No oropharyngeal exudate or posterior oropharyngeal erythema. Cardiovascular: Rate and Rhythm: Normal rate and regular rhythm. Heart sounds: Normal heart sounds. Pulmonary: Effort: Pulmonary effort is normal. Breath sounds: Normal breath sounds. Abdominal: General: Abdomen is flat. Bowel sounds are normal. There is no distension. Palpations: Abdomen is soft. Tenderness: There is no abdominal tenderness. There is no right CVA tenderness, left CVA tendernessor guarding. Musculoskeletal: Cervical back: Neck supple. Skin: General: Skin is warm and dry. Findings: No rash. Neurological: Mental Status: She is alert. Assessment and Plan ASSESSMENT/PLAN: 1. Acute UTI - ICD9: 599.0, ICD10: N39.0 Complicated UTI, 19 week , type one diabetic. She did have a small amount of ketones in her urine. She has not drank any water yet today but did have a [employer] drink. Discussed increasing water intake. She states her blood sugars have been well-controlled in the lower 100s, do not suspect DKA at this time. She does not have any blood in urine to suggest a kidney stone. Discussed with her however she starts to get flank pain, vomiting, fever, her blood sugars are going high she needs to be seen in the emergency department. Would recommend following up with PCP/urology or GUIDANCE ADVISER as well. - UA positive for vamshi esterase - Send urine for culture - Begin treatment with keflex tid for 7 days - UA DIP, URINE (POC) - URINE CULTURE Kelsy Tee PA-C [facility] Hospital course Narrative * Franko Bautista, CORINNE - 09/22/2023 4:07 PM EDT [facility] [place] Catalina Capellan Admitted: 09/21/2023 Discharge Date: 09/22/23 PCP Handoff Recommended Outpatient Testing: Follow up with OBGYN Results Pending At Discharge: Urine Cx Clinical Summary aaliyah Capellan is a 17 y.o. female patient of Dian Velez MD 15 weeks who presented to [facility] ED with dizziness and persistent nausea and vomiting. She was found to be volume depleted and given IV fluids and antiemetics. Her nausea improved but she was dizzy on attempted ambulation with tachycardia and was admitted for ongoing fluid hydration Nausea and vomiting Hyperemesis gravidarum 15 weeks gestation IV Hydration Antiemetics prn Advance diet as tolerated Dizziness Volume depletion Due to persistent nausea and vomiting. Continue IV fluids and nausea management. Follows with obstetrics. No acute issues. Will follow-up with OB outpatient. OB consult-can be discharged with oral antiemetics Monitor heart tones UTI Reviewed UA, cloudy, positive leukocyte esterase and many bacteria. Urine Cx- P She had a urine culture in 06/2023, culture was negative at that time. Start on Keflex due to .-Discharge with Keflex 500 mg oral bid x 6 days Diabetes mellitus I She has insulin pump in situ. Last HbA1c was 6.3 on 08/13/2023. Diet currently being liberalized. Continue insulin pump Patient seen and evaluated by OBGYN, patient tolerating food with no further nausea and vomiting, will be safely discharged on oral antiemetics Discharge Medications Current Discharge Medication List START taking these medications Details cephALEXin (KEFLEX) 500 MG capsule Take 1 (one) capsule (500 mg total) by mouth every 12 (twelve) hours for 6 days . Qty: 12 capsule, Refills: 0 ondansetron (ZOFRAN-ODT) 4 MG disintegrating tablet Dissolve 1 (one) tablet (4 mg total) on top of tongue every 6 (six) hours as needed for nausea . Qty: 20 tablet, Refills: 1 CONTINUE these medications which have NOT CHANGED Details aspirin 81 mg chewable tablet Chew and Swallow 1 (one) tablet (81 mg total) daily . Dexcom G6 Transmitter Leny ergocalciferol (Vitamin D2) 1,250 mcg (50,000 unit) capsule Take 1 (one) capsule (50,000 Units total) by mouth once a week Reasons: low vitamin D levels. insulin lispro (AdmeLOG,HumaLOG) 100 unit/mL injection Inject 6 (six) Units under the skin 3 (three) times a day before meals Based off of carbs, patients has an insulin pump. Reasons: type 1 diabetes mellitus. Lantus Solostar U-100 Insulin 100 unit/mL (3 mL) InPn Inject up to 20units SQ nightly as directed, dose subject to change vitamin with Ca-Iron-FA 27-1 mg Tab Take 1 (one) tablet by mouth daily Reasons: . STOP taking these medications metoclopramide (REGLAN) 5 MG tablet Comments: Reason for Stopping: Physician(s) Follow Up: Dian Velez MD [address] [address] Schedule an appointment as soon as possible for a visit Condition at Discharge:good Disposition: home On day of discharge, I performed a final bedside evaluation including a physical exam. I reviewed discharge recommendations with the patient in person. Patient instructions, including activity, were given to the patient/family at discharge. Time spent on discharge: > 30 minutes Completed by: Franko Bautista CNP on 09/22/23, 4:07 PM documented in this [id number] Consult note* Marshal Read MD - 09/22/2023 3:18 PM EDTAssociated Order(s): IP CONSULT TO HUMAN RESOURCES EXECUTIVE ASSISTANT OBGYN Consult OB Hospitalist [facility] Patient: Catalina Capellan Date of : 2005 (17 y.o.) PCP: Dian Velez MD SUBJECTIVE: Chief Complaint Patient presents with Dizziness History of Present Illness: Catalina Capellan is a 17 y.o. female at 15 weeks gestation presenting with nausea and vomiting andfeeling of dizziness. Patient states that she had a lot of nausea and vomiting in early and that more recently this has worsened over the last 3 days. The patient states that she has no other associated symptoms. The patient is an insulin-dependent diabetic and manages her sugars well. The patient denies any loss of fluid or vaginal bleeding. Patient states that she had been taking Reglan early in the but does not have any more medication. At this time the patient states that she is feeling well, has not had any vomiting today and has been able to tolerate p.o. History: OB History Para Term AB Living 1 0 0 0 0 0 SAB IAB Ectopic Multiple Live Births 0 0 0 0 0 # Outcome Date GA Lbr Cole/2nd Weight Sex Delivery Anes PTL Lv 1 Current Past Medical History: Diagnosis Date Diabetes mellitus (HCC) Past Surgical History: Procedure Laterality Date CYSTO LASER LITHOTRIPSY BLADDER STONE Family History Problem Relation Age of Onset Cancer Mother Heart disease Maternal Grandfather Social History Socioeconomic History Marital status: Single Tobacco Use Smoking status: Former Packs/day: 1 Types: Cigarettes Smokeless tobacco: Never Vaping Use Vaping Use: Former Quit date: 08/03/2023 Substances: Nicotine Substance and Sexual Activity Alcohol use: Not Currently Drug use: Never Social Determinants of Health Food Insecurity: No Food Insecurity (09/21/2023) Hunger Vital Sign Worried About Running Out of Food in the Last Year: Never true Ran Out of Food in the Last Year: Never true Transportation Needs: No Transportation Needs (09/21/2023) PRAPARE - Transportation Lack of Transportation (Medical): No Lack of Transportation (Non-Medical): No Housing Stability: High Risk (09/21/2023) Housing Stability Vital Sign Unable to Pay for Housing in the Last Year: No Number of Places Lived in the Last Year: 3 Unstable Housing in the Last Year: No Allergy Information: I have reviewed the patient's allergies. Patient has no known allergies. Home Medications: Outpatient Medications as of 09/21/2023 Medication Sig Dexcom G6 Transmitter Leny Lantus Solostar U-100 Insulin 100 unit/mL (3 mL) InPn Inject up to 20units SQ nightly as directed, dose subject to change Review of Systems: See HPI GENERAL: Denies fever, chills, night sweats, weight loss, anorexia. HEENT: No visual changes, no hearing changes, no acute congestion or drainage, no sore throat, no difficulty swallowing. NEUROLOGIC: No unusual headache, no seizures, no syncope. No weakness, no focal deficits. CARDIAC: No chest pains, palpitations, or arrhythmia. PULMONARY: No cough, wheezing, shortness of breath, or hemoptysis. GASTROINTESTINAL: No nausea/vomiting. No diarrhea or constipation. No abdominal pain. GENITORURINARY: No dysuria, urgency, hematuria, or frequency GUIDANCE ADVISER: As per HPI EXTREMITIES: Denies unusual swelling. MUSCULOSKELETAL: No joint pain or swelling. No muscle weakness. HEMATOLOGIC: No abnormal bruising or bleeding. LYMPHATIC: Denies adenopathy. SKIN: Denies rash. PSYCHIATRIC: Denies depression, anxiety, or suicidal ideation. OBJECTIVE: Vital signs: Vitals: 09/22/23 0025 09/22/23 0344 09/22/23 0819 09/22/23 1212 BP: (!) 98/56 113/69 103/66 112/72 Temp: 98.4 F (36.9 C) 98.1 F (36.7 C) 98.5 F (36.9 C) 98.2 F (36.8 C) Pulse: 89 85 85 95 Resp: 16 16 16 SpO2: 98% 99% 98% 99% MAP (mmHg): 70 84 78 85 Vitals: 09/22/23 0025 09/22/23 0344 09/22/23 0819 09/22/23 1212 BP: (!) 98/56 113/69 103/66 112/72 Pulse: 89 85 85 95 Resp: 16 16 16 Temp: 98.4 F (36.9 C) 98.1 F (36.7 C) 98.5 F (36.9 C) 98.2 F (36.8 C) TempSrc: Oral Oral Oral Oral SpO2: 98% 99% 98% 99% Weight: Height: Body mass index is 24.21 kg/m . PHYSICAL EXAM: General: Alert and oriented x3, no acute distress HEENT: Normocephalic, atraumatic Neurological: No focal deficits, CN grossly intact Musculoskeletal: Normal range of movement Psychiatric: Normal affect Abdomen: Non tender, non distended, gravid; no flank tenderness Labs: Labs from the last 3 days: Admission on 09/21/2023 Component Date Value Ref Range Status Glucose 09/21/2023 99 65 - 99 mg/dL Final Ventricular Rate 09/21/2023 110 BPM Final Atrial Rate 09/21/2023 110 BPM Final P-R Interval 09/21/2023 112 ms Final QRS Duration 09/21/2023 86 ms Final Q-T Interval 09/21/2023 336 ms Final QTC Calculation (Bezet) 09/21/2023 454 ms Final P [place] 09/21/2023 52 degrees Final R [place] 09/21/2023 62 degrees Final T [place] 09/21/2023 16 degrees Final Extra Tube 09/21/2023 Hold for add-ons. Final Extra Tube 09/21/2023 Hold for add-ons. Final Extra Tube 09/21/2023 Hold for add-ons. Final Extra Tube 09/21/2023 Hold for add-ons. Final Sodium 09/21/2023 136 135 - 145 mmol/L Final Potassium 09/21/2023 3.6 3.5 - 5.1 mmol/L Final Chloride 09/21/2023 101 98 - 108 mmol/L Final Bicarbonate 09/21/2023 21 21 - 32 mmol/L Final Anion Gap 09/21/2023 18 10 - 20 mmol/L Final Glucose 09/21/2023 98 65 - 99 mg/dL Final BUN 09/21/2023 5 (L) 8 - 25 mg/dL Final Creatinine 09/21/2023 0.43 (L) 0.50 - 1.00 mg/dL Final eGFR 09/21/2023 145 >=60 mL/min/1.73 m2 Final BUN/Creatinine Ratio 09/21/2023 11.6 10.0 - 20.0 Final Calcium 09/21/2023 9.1 8.4 - 10.2 mg/dL Final Total Protein 09/21/2023 7.5 6.0 - 8.0 g/dL Final Albumin 09/21/2023 3.8 3.2 - 4.5 g/dL Final Total Bilirubin 09/21/2023 0.4 0.0 - 1.3 mg/dL Final Bilirubin, Direct 09/21/2023 <0.2 0.0 - 0.4 mg/dL Final Alkaline Phosphatase 09/21/2023 72 40 - 140 U/L Final AST 09/21/2023 16 0-35 U/L U/L Final ALT 09/21/2023 5 0-35 U/L U/L Final Lipase 09/21/2023 28 15 - 65 U/L Final Beta-Hydroxybutyrate 09/21/2023 0.3 0.0 - 0.3 mmol/L Final Color, Urine 09/21/2023 Yellow Colorless, Yellow Final Clarity, Urine 09/21/2023 Cloudy (A) Clear Final Specific [place] 09/21/2023 1.016 1.005 - 1.025 Final pH, Urine 09/21/2023 7.0 5.0 - 7.0 Final Protein, Urine 09/21/2023 Negative Negative mg/dL Final Glucose, Urine 09/21/2023 Negative Negative mg/dL Final Ketones, Urine 09/21/2023 20 (A) Negative mg/dL Final Bilirubin, Urine 09/21/2023 Negative Negative Final Urobilinogen, Urine 09/21/2023 <2.0 <2.0 mg/dL Final Blood, Urine 09/21/2023 Negative Negative Final Nitrite, Urine 09/21/2023 Negative Negative Final Leukocyte Esterase, Urine 09/21/2023 Moderate (A) Negative Final WBCs, Urine 09/21/2023 15 (H) 0 - 5 /hpf Final RBCs, Urine 09/21/2023 19 (H) 0 - 3 /hpf Final Bacteria, Urine 09/21/2023 Many (A) None Seen /hpf Final Squamous Epithelial 09/21/2023 14 (H) 0 - 4 /hpf Final Renal Epithelial 09/21/2023 <1 (H) 0 - 0 /hpf Final Transitional Epithelial 09/21/2023 <1 0 - 1 /hpf Final Amorphous Crystals 09/21/2023 Few (A) None Seen, Rare /hpf Final Mucus, Urine 09/21/2023 Few (A) None Seen, Rare /lpf Final Magnesium 09/21/2023 1.6 1.6 - 2.4 mg/dL Final Troponin T 09/21/2023 <6 <=14 ng/L Final Troponin T Interpretation 09/21/2023 Normal Final SARS-CoV-2 09/21/2023 Not Detected Not Detected Final Influenza A 09/21/2023 Not Detected Not Detected Final Influenza B 09/21/2023 Not Detected Not Detected Final Amphetamine Screen, Urine 09/21/2023 None Detected None Detected Final Barbiturate Screen, Urine 09/21/2023 None Detected None Detected Final Benzodiazepine Screen, Urine 09/21/2023 None Detected None Detected Final Cannabinoid Screen, Urine 09/21/2023 None Detected None Detected Final Cocaine, Screen Urine 09/21/2023 None Detected None Detected Final Methadone Screen, Urine 09/21/2023 None Detected None Detected Final Opiate Screen, Urine 09/21/2023 None Detected None Detected Final Oxycodone Screen, Urine 09/21/2023 None Detected None Detected Final Buprenorphine, Ur 09/21/2023 None Detected None Detected Final Fentanyl, Ur 09/21/2023 None Detected None Detected Final WBC 09/21/2023 9.93 4.50 - 11.00 K/mcL Final RBC 09/21/2023 4.50 4.10 - 5.10 M/mcL Final Hemoglobin 09/21/2023 12.1 12.0 - 16.0 g/dL Final Hematocrit 09/21/2023 37.0 36.0 - 46.0 % Final MCV 09/21/2023 82.2 78.0 - 102.0 fL Final MCH 09/21/2023 26.9 25.0 - 35.0 pg Final MCHC 09/21/2023 32.7 31.0 - 37.0 g/dL Final Platelets 09/21/2023 223 150 - 400 K/mcL Final RDW - CV 09/21/2023 16.0 (H) 11.6 - 14.8 % Final MPV 09/21/2023 12.2 9.4 - 12.4 fL Final Neutrophils 09/21/2023 72.7 % Final Lymphocytes 09/21/2023 17.5 % Final Monocytes 09/21/2023 8.2 % Final Eosinophils 09/21/2023 1.2 % Final Basophils 09/21/2023 0.0 % Final IG Percent 09/21/2023 0.40 % Final Neutrophils Abs 09/21/2023 7.22 (H) 1.70 - 7.00 K/mcL Final Lymphocytes Abs 09/21/2023 1.74 0.90 - 4.00 K/mcL Final Monocytes Abs 09/21/2023 0.81 0.30 - 0.90 K/mcL Final Eosinophils Abs 09/21/2023 0.12 0.00 - 0.50 K/mcL Final Basophils Abs 09/21/2023 0.00 0.00 - 0.30 K/mcL Final IG Absolute 09/21/2023 0.04 0.00 - 0.30 K/mcL Final Nucleated RBC 09/21/2023 0.0 % Final Nucleated RBC Abs 09/21/2023 0.00 0.00 - 0.00 K/mcL Final pH, Venous 09/21/2023 7.45 (H) 7.32 - 7.42 Final pCO2, Jimmy 09/21/2023 35.8 (L) 41.0 - 51.0 mm Hg Final pO2, Jimmy 09/21/2023 54 (H) 25 - 40 mm Hg Final Base Excess, Jimmy 09/21/2023 1.0 -2.0 - 2.0 Final HCO3, Jimmy 09/21/2023 24.8 24.0 - 28.0 mmol/L Final Ionized Calcium 09/21/2023 4.7 4.5 - 5.3 mg/dL Final Lactic Acid 09/21/2023 0.6 0.6 - 2.0 mmol/L Final Hemoglobin, Blood Gas 09/21/2023 11.9 (L) 12.0 - 16.0 g/dL Final Hematocrit, Calculated 09/21/2023 36.6 36.0 - 46.0 % Final O2 Sat, Jimmy 09/21/2023 89.3 (H) 40.0 - 70.0 % Final O2 Hb 09/21/2023 87.9 No established reference range % Final Carboxyhemoglobin 09/21/2023 1.2 <=1.5 % of total Hb Final Methemoglobin 09/21/2023 <1.0 0.0 - 2.0 % Final FIO2 09/21/2023 21 Final Specimen Source 09/21/2023 Not specified Final Sodium 09/21/2023 137 135 - 145 mmol/L Final Potassium 09/21/2023 3.4 (L) 3.5 - 5.1 mmol/L Final Glucose 09/21/2023 91 65 - 99 mg/dL Final Chloride 09/21/2023 105 98 - 108 mmol/L Final Glucose 09/21/2023 118 (H) 65 - 99 mg/dL Final Sodium 09/22/2023 137 135 - 145 mmol/L Final Potassium 09/22/2023 3.5 3.5 - 5.1 mmol/L Final Chloride 09/22/2023 108 98 - 108 mmol/L Final Bicarbonate 09/22/2023 21 21 - 32 mmol/L Final Anion Gap 09/22/2023 12 10 - 20 mmol/L Final Glucose 09/22/2023 137 (H) 65 - 99 mg/dL Final BUN 09/22/2023 3 (L) 8 - 25 mg/dL Final Creatinine 09/22/2023 0.37 (L) 0.50 - 1.00 mg/dL Final eGFR 09/22/2023 150 >=60 mL/min/1.73 m2 Final BUN/Creatinine Ratio 09/22/2023 8.1 (L) 10.0 - 20.0 Final Calcium 09/22/2023 8.4 8.4 - 10.2 mg/dL Final Magnesium 09/22/2023 1.6 1.6 - 2.4 mg/dL Final Phosphorus 09/22/2023 3.3 2.7 - 4.5 mg/dL Final Glucose 09/22/2023 127 (H) 65 - 99 mg/dL Final Glucose 09/22/2023 88 65 - 99 mg/dL Final Glucose 09/22/2023 133 (H) 65 - 99 mg/dL Final Selected Labs pertinent to pediatrics: No results found for: HIV1X2, HEPBSAG, EXTHEPCABY, EXTCHLAMGDNA, GBSPCR, RUBELLA, EXTRHTYPE, ABSCRNO Positive Laboratory and Additional Data Reviewed ASSESSMENT/PLAN: Catalina Capellan is a 17 y.o. female with Estimated Date of Delivery: None noted. at Unknown gestation Principal Problem: Volume depletion Active Problems: Nausea and vomiting Hypovolemia associated with vomiting Patient tolerating p.o. well, will send home with prescription for Zofran and follow-up outpatient Risks, benefits, alternatives and possible complications have been discussed in detail with the patient. Pre-admission, admission, and post admission procedures and expectations were discussed in detail. All questions answered, all appropriate consents will be signed at the Hospital. Diagnostic tests were reviewed for today's visit Plan of care discussed with: Provider, RN, Patient SIGNATURE: TATA TalleyATIHORACE NAME: Catalina Capellan DATE: September 22, 2023MRN: [id number] TIME: 3:18 PM [id number] Consult note* Marshal Read MD - 09/22/2023 3:18 PM EDTAssociated Order(s): IP CONSULT TO HUMAN RESOURCES EXECUTIVE ASSISTANT OBGYN Consult OB Hospitalist [facility] Patient: Catalina Capellan Date of : 2005 (17 y.o.) PCP: Dian Velez MD SUBJECTIVE: Chief Complaint Patient presents with Dizziness History of Present Illness: Catalina Capellan is a 17 y.o. female at 15 weeks gestation presenting with nausea and vomiting andfeeling of dizziness. Patient states that she had a lot of nausea and vomiting in early and that more recently this has worsened over the last 3 days. The patient states that she has no other associated symptoms. The patient is an insulin-dependent diabetic and manages her sugars well. The patient denies any loss of fluid or vaginal bleeding. Patient states that she had been taking Reglan early in the but does not have any more medication. At this time the patient states that she is feeling well, has not had any vomiting today and has been able to tolerate p.o. History: OB History Para Term AB Living 1 0 0 0 0 0 SAB IAB Ectopic Multiple Live Births 0 0 0 0 0 # Outcome Date GA Lbr Cole/2nd Weight Sex Delivery Anes PTL Lv 1 Current Past Medical History: Diagnosis Date Diabetes mellitus (HCC) Past Surgical History: Procedure Laterality Date CYSTO LASER LITHOTRIPSY BLADDER STONE Family History Problem Relation Age of Onset Cancer Mother Heart disease Maternal Grandfather Social History Socioeconomic History Marital status: Single Tobacco Use Smoking status: Former Packs/day: 1 Types: Cigarettes Smokeless tobacco: Never Vaping Use Vaping Use: Former Quit date: 08/03/2023 Substances: Nicotine Substance and Sexual Activity Alcohol use: Not Currently Drug use: Never Social Determinants of Health Food Insecurity: No Food Insecurity (09/21/2023) Hunger Vital Sign Worried About Running Out of Food in the Last Year: Never true Ran Out of Food in the Last Year: Never true Transportation Needs: No Transportation Needs (09/21/2023) PRAPARE - Transportation Lack of Transportation (Medical): No Lack of Transportation (Non-Medical): No Housing Stability: High Risk (09/21/2023) Housing Stability Vital Sign Unable to Pay for Housing in the Last Year: No Number of Places Lived in the Last Year: 3 Unstable Housing in the Last Year: No Allergy Information: I have reviewed the patient's allergies. Patient has no known allergies. Home Medications: Outpatient Medications as of 09/21/2023 Medication Sig Dexcom G6 Transmitter Leny Lantus Solostar U-100 Insulin 100 unit/mL (3 mL) InPn Inject up to 20units SQ nightly as directed, dose subject to change Review of Systems: See HPI GENERAL: Denies fever, chills, night sweats, weight loss, anorexia. HEENT: No visual changes, no hearing changes, no acute congestion or drainage, no sore throat, no difficulty swallowing. NEUROLOGIC: No unusual headache, no seizures, no syncope. No weakness, no focal deficits. CARDIAC: No chest pains, palpitations, or arrhythmia. PULMONARY: No cough, wheezing, shortness of breath, or hemoptysis. GASTROINTESTINAL: No nausea/vomiting. No diarrhea or constipation. No abdominal pain. GENITORURINARY: No dysuria, urgency, hematuria, or frequency GUIDANCE ADVISER: As per HPI EXTREMITIES: Denies unusual swelling. MUSCULOSKELETAL: No joint pain or swelling. No muscle weakness. HEMATOLOGIC: No abnormal bruising or bleeding. LYMPHATIC: Denies adenopathy. SKIN: Denies rash. PSYCHIATRIC: Denies depression, anxiety, or suicidal ideation. OBJECTIVE: Vital signs: Vitals: 09/22/23 0025 09/22/23 0344 09/22/23 0819 09/22/23 1212 BP: (!) 98/56 113/69 103/66 112/72 Temp: 98.4 F (36.9 C) 98.1 F (36.7 C) 98.5 F (36.9 C) 98.2 F (36.8 C) Pulse: 89 85 85 95 Resp: 16 16 16 SpO2: 98% 99% 98% 99% MAP (mmHg): 70 84 78 85 Vitals: 09/22/23 0025 09/22/23 0344 09/22/23 0819 09/22/23 1212 BP: (!) 98/56 113/69 103/66 112/72 Pulse: 89 85 85 95 Resp: 16 16 16 Temp: 98.4 F (36.9 C) 98.1 F (36.7 C) 98.5 F (36.9 C) 98.2 F (36.8 C) TempSrc: Oral Oral Oral Oral SpO2: 98% 99% 98% 99% Weight: Height: Body mass index is 24.21 kg/m . PHYSICAL EXAM: General: Alert and oriented x3, no acute distress HEENT: Normocephalic, atraumatic Neurological: No focal deficits, CN grossly intact Musculoskeletal: Normal range of movement Psychiatric: Normal affect Abdomen: Non tender, non distended, gravid; no flank tenderness Labs: Labs from the last 3 days: Admission on 09/21/2023 Component Date Value Ref Range Status Glucose 09/21/2023 99 65 - 99 mg/dL Final Ventricular Rate 09/21/2023 110 BPM Final Atrial Rate 09/21/2023 110 BPM Final P-R Interval 09/21/2023 112 ms Final QRS Duration 09/21/2023 86 ms Final Q-T Interval 09/21/2023 336 ms Final QTC Calculation (Bezet) 09/21/2023 454 ms Final P [place] 09/21/2023 52 degrees Final R [place] 09/21/2023 62 degrees Final T [place] 09/21/2023 16 degrees Final Extra Tube 09/21/2023 Hold for add-ons. Final Extra Tube 09/21/2023 Hold for add-ons. Final Extra Tube 09/21/2023 Hold for add-ons. Final Extra Tube 09/21/2023 Hold for add-ons. Final Sodium 09/21/2023 136 135 - 145 mmol/L Final Potassium 09/21/2023 3.6 3.5 - 5.1 mmol/L Final Chloride 09/21/2023 101 98 - 108 mmol/L Final Bicarbonate 09/21/2023 21 21 - 32 mmol/L Final Anion Gap 09/21/2023 18 10 - 20 mmol/L Final Glucose 09/21/2023 98 65 - 99 mg/dL Final BUN 09/21/2023 5 (L) 8 - 25 mg/dL Final Creatinine 09/21/2023 0.43 (L) 0.50 - 1.00 mg/dL Final eGFR 09/21/2023 145 >=60 mL/min/1.73 m2 Final BUN/Creatinine Ratio 09/21/2023 11.6 10.0 - 20.0 Final Calcium 09/21/2023 9.1 8.4 - 10.2 mg/dL Final Total Protein 09/21/2023 7.5 6.0 - 8.0 g/dL Final Albumin 09/21/2023 3.8 3.2 - 4.5 g/dL Final Total Bilirubin 09/21/2023 0.4 0.0 - 1.3 mg/dL Final Bilirubin, Direct 09/21/2023 <0.2 0.0 - 0.4 mg/dL Final Alkaline Phosphatase 09/21/2023 72 40 - 140 U/L Final AST 09/21/2023 16 0-35 U/L U/L Final ALT 09/21/2023 5 0-35 U/L U/L Final Lipase 09/21/2023 28 15 - 65 U/L Final Beta-Hydroxybutyrate 09/21/2023 0.3 0.0 - 0.3 mmol/L Final Color, Urine 09/21/2023 Yellow Colorless, Yellow Final Clarity, Urine 09/21/2023 Cloudy (A) Clear Final Specific [place] 09/21/2023 1.016 1.005 - 1.025 Final pH, Urine 09/21/2023 7.0 5.0 - 7.0 Final Protein, Urine 09/21/2023 Negative Negative mg/dL Final Glucose, Urine 09/21/2023 Negative Negative mg/dL Final Ketones, Urine 09/21/2023 20 (A) Negative mg/dL Final Bilirubin, Urine 09/21/2023 Negative Negative Final Urobilinogen, Urine 09/21/2023 <2.0 <2.0 mg/dL Final Blood, Urine 09/21/2023 Negative Negative Final Nitrite, Urine 09/21/2023 Negative Negative Final Leukocyte Esterase, Urine 09/21/2023 Moderate (A) Negative Final WBCs, Urine 09/21/2023 15 (H) 0 - 5 /hpf Final RBCs, Urine 09/21/2023 19 (H) 0 - 3 /hpf Final Bacteria, Urine 09/21/2023 Many (A) None Seen /hpf Final Squamous Epithelial 09/21/2023 14 (H) 0 - 4 /hpf Final Renal Epithelial 09/21/2023 <1 (H) 0 - 0 /hpf Final Transitional Epithelial 09/21/2023 <1 0 - 1 /hpf Final Amorphous Crystals 09/21/2023 Few (A) None Seen, Rare /hpf Final Mucus, Urine 09/21/2023 Few (A) None Seen, Rare /lpf Final Magnesium 09/21/2023 1.6 1.6 - 2.4 mg/dL Final Troponin T 09/21/2023 <6 <=14 ng/L Final Troponin T Interpretation 09/21/2023 Normal Final SARS-CoV-2 09/21/2023 Not Detected Not Detected Final Influenza A 09/21/2023 Not Detected Not Detected Final Influenza B 09/21/2023 Not Detected Not Detected Final Amphetamine Screen, Urine 09/21/2023 None Detected None Detected Final Barbiturate Screen, Urine 09/21/2023 None Detected None Detected Final Benzodiazepine Screen, Urine 09/21/2023 None Detected None Detected Final Cannabinoid Screen, Urine 09/21/2023 None Detected None Detected Final Cocaine, Screen Urine 09/21/2023 None Detected None Detected Final Methadone Screen, Urine 09/21/2023 None Detected None Detected Final Opiate Screen, Urine 09/21/2023 None Detected None Detected Final Oxycodone Screen, Urine 09/21/2023 None Detected None Detected Final Buprenorphine, Ur 09/21/2023 None Detected None Detected Final Fentanyl, Ur 09/21/2023 None Detected None Detected Final WBC 09/21/2023 9.93 4.50 - 11.00 K/mcL Final RBC 09/21/2023 4.50 4.10 - 5.10 M/mcL Final Hemoglobin 09/21/2023 12.1 12.0 - 16.0 g/dL Final Hematocrit 09/21/2023 37.0 36.0 - 46.0 % Final MCV 09/21/2023 82.2 78.0 - 102.0 fL Final MCH 09/21/2023 26.9 25.0 - 35.0 pg Final MCHC 09/21/2023 32.7 31.0 - 37.0 g/dL Final Platelets 09/21/2023 223 150 - 400 K/mcL Final RDW - CV 09/21/2023 16.0 (H) 11.6 - 14.8 % Final MPV 09/21/2023 12.2 9.4 - 12.4 fL Final Neutrophils 09/21/2023 72.7 % Final Lymphocytes 09/21/2023 17.5 % Final Monocytes 09/21/2023 8.2 % Final Eosinophils 09/21/2023 1.2 % Final Basophils 09/21/2023 0.0 % Final IG Percent 09/21/2023 0.40 % Final Neutrophils Abs 09/21/2023 7.22 (H) 1.70 - 7.00 K/mcL Final Lymphocytes Abs 09/21/2023 1.74 0.90 - 4.00 K/mcL Final Monocytes Abs 09/21/2023 0.81 0.30 - 0.90 K/mcL Final Eosinophils Abs 09/21/2023 0.12 0.00 - 0.50 K/mcL Final Basophils Abs 09/21/2023 0.00 0.00 - 0.30 K/mcL Final IG Absolute 09/21/2023 0.04 0.00 - 0.30 K/mcL Final Nucleated RBC 09/21/2023 0.0 % Final Nucleated RBC Abs 09/21/2023 0.00 0.00 - 0.00 K/mcL Final pH, Venous 09/21/2023 7.45 (H) 7.32 - 7.42 Final pCO2, Jimmy 09/21/2023 35.8 (L) 41.0 - 51.0 mm Hg Final pO2, Jimmy 09/21/2023 54 (H) 25 - 40 mm Hg Final Base Excess, Jimmy 09/21/2023 1.0 -2.0 - 2.0 Final HCO3, Jimmy 09/21/2023 24.8 24.0 - 28.0 mmol/L Final Ionized Calcium 09/21/2023 4.7 4.5 - 5.3 mg/dL Final Lactic Acid 09/21/2023 0.6 0.6 - 2.0 mmol/L Final Hemoglobin, Blood Gas 09/21/2023 11.9 (L) 12.0 - 16.0 g/dL Final Hematocrit, Calculated 09/21/2023 36.6 36.0 - 46.0 % Final O2 Sat, Jimmy 09/21/2023 89.3 (H) 40.0 - 70.0 % Final O2 Hb 09/21/2023 87.9 No established reference range % Final Carboxyhemoglobin 09/21/2023 1.2 <=1.5 % of total Hb Final Methemoglobin 09/21/2023 <1.0 0.0 - 2.0 % Final FIO2 09/21/2023 21 Final Specimen Source 09/21/2023 Not specified Final Sodium 09/21/2023 137 135 - 145 mmol/L Final Potassium 09/21/2023 3.4 (L) 3.5 - 5.1 mmol/L Final Glucose 09/21/2023 91 65 - 99 mg/dL Final Chloride 09/21/2023 105 98 - 108 mmol/L Final Glucose 09/21/2023 118 (H) 65 - 99 mg/dL Final Sodium 09/22/2023 137 135 - 145 mmol/L Final Potassium 09/22/2023 3.5 3.5 - 5.1 mmol/L Final Chloride 09/22/2023 108 98 - 108 mmol/L Final Bicarbonate 09/22/2023 21 21 - 32 mmol/L Final Anion Gap 09/22/2023 12 10 - 20 mmol/L Final Glucose 09/22/2023 137 (H) 65 - 99 mg/dL Final BUN 09/22/2023 3 (L) 8 - 25 mg/dL Final Creatinine 09/22/2023 0.37 (L) 0.50 - 1.00 mg/dL Final eGFR 09/22/2023 150 >=60 mL/min/1.73 m2 Final BUN/Creatinine Ratio 09/22/2023 8.1 (L) 10.0 - 20.0 Final Calcium 09/22/2023 8.4 8.4 - 10.2 mg/dL Final Magnesium 09/22/2023 1.6 1.6 - 2.4 mg/dL Final Phosphorus 09/22/2023 3.3 2.7 - 4.5 mg/dL Final Glucose 09/22/2023 127 (H) 65 - 99 mg/dL Final Glucose 09/22/2023 88 65 - 99 mg/dL Final Glucose 09/22/2023 133 (H) 65 - 99 mg/dL Final Selected Labs pertinent to pediatrics: No results found for: HIV1X2, HEPBSAG, EXTHEPCABY, EXTCHLAMGDNA, GBSPCR, RUBELLA, EXTRHTYPE, ABSCRNO Positive Laboratory and Additional Data Reviewed ASSESSMENT/PLAN: Catalina Capellan is a 17 y.o. female with Estimated Date of Delivery: None noted. at Unknown gestation Principal Problem: Volume depletion Active Problems: Nausea and vomiting Hypovolemia associated with vomiting Patient tolerating p.o. well, will send home with prescription for Zofran and follow-up outpatient Risks, benefits, alternatives and possible complications have been discussed in detail with the patient. Pre-admission, admission, and post admission procedures and expectations were discussed in detail. All questions answered, all appropriate consents will be signed at the Hospital. Diagnostic tests were reviewed for today's visit Plan of care discussed with: Provider, RN, Patient SIGNATURE: BRENDON Talley NAME: Catalina Capellan DATE: September 22, 2023MRN: [id number] TIME: 3:18 PM documented in this [id number] History of Present illness Narrative* Cece Dominguez, JUAN M - 09/22/2023 1:39 PM EDT Nutrition Care Initial Assessment Reason for visit: Nursing Referral for poor oral intake (less than 50% of usual intake) for the last 5 days, N/V Nutrition Diagnosis: Predicted Inadequate Energy Intake related to unable to consume sufficient energy 2/2 N/V as evidenced by reported N/V 2/2 hyperemesis gravidarum. Nutrition Intervention Continue Meals and Snacks Nutrition Prescription: Diet:Continue Regular Consider addition of vitamin- of note, this is ordered. Consider Vitamin B6, 10-25 mg q 6 hours to help with nausea. Nutrition Goals: Tolerate diet with PO intakes >50% most meals Start Date:09/22/2023 Expected End Date:09/28/2023 Nutrition Education: No needs at this time-pt is out of room. Attached education to AVS. Assessment: Pertinent clinical information: presents with n/v, hyperemesis gravidarum. The patient is 15 weeks . History of DM with insulin pump. Past Medical History: Diagnosis Date Diabetes mellitus (HCC) Past Surgical History: Procedure Laterality Date CYSTO LASER LITHOTRIPSY BLADDER STONE Height: 5' 6 Current weight: 68 kg (150 lb) BMI Body mass index is 24.21 kg/m . Weight hx: Wt Readings from Last 10 Encounters: 09/21/23 68 kg (150 lb) (83%, Z= 0.94)* 08/08/23 68 kg (150 lb) (83%, Z= 0.95)* 08/02/23 68 kg (150 lb) (83%, Z= 0.95)* 07/20/23 68 kg (150 lb) (83%, Z= 0.95)* * Growth percentiles are based on [facility] (Girls, 2-20 Years) data. Significant Weight Change: No Current diet order: Diet: Diabetic; Consistent Carbohydrate 75g/meal Recent intake: Insufficient intake data at this time, unable to determine if current intake meets estimated needs. Barriers to adequate p.o. intakes: Gastrointestinal symptoms Nutrition Related Allergies/Intolerances: No Nutrition Related Allergies noted Cultural or Jewish Dietary Needs :No Cultural or Jewish Dietary needs noted Patient/family comments: deferred: pt is out of room Difficulty Chewing or Swallowing: No Skin Integrity: Intact GI Function: Nausea, Vomiting Fluid Status: WNL Physical Appearance: Unable to assess at this time Labs: Recent Labs 09/21/23 1121 09/21/23 1141 09/22/23 0514 NA 136 < > 137 K 3.6 < > 3.5 BICARB 21 -- 21 CL 101 < > 108 GLUCOSE 98 < > 137* BUN 5* -- 3* CREATININE 0.43* -- 0.37* MG 1.6 -- 1.6 PHOS -- -- 3.3 ALBUMIN 3.8 -- -- LIPASE 28 -- -- < > = values in this interval not displayed. Recent Labs 09/21/23 1121 09/21/23 1141 09/22/23 0514 GLUCOSE 98 91 137* No results found for: HGBA1C Home Medications Reviewed: Yes Scheduled Meds: cephALEXin 500 mg Oral Q12H CHRIST sodium chloride (PF) 5 mL Intravenous Q8H CHRIST Continuous Infusions: sodium chloride 0.9 % sodium chloride 0.9 % sodium chloride 0.9 % 125 mL/hr (09/22/23 0853) subcutaneous insulin pump Nutrient Depleting Medications: No chronic use of nutrient depleting medications noted. Medications whose absorption may be altered by tube feeding: N/A Cece Dominguez RD Estimated Energy Needs Total Energy Estimated Needs: 1999 Method for Estimating Needs: 30 kcal/kg Total Protein Estimated Needs: 80 Method for Estimating Needs: 1.2 gm/kg * Franko Bautista, CORINNE - 09/22/2023 9:56 AM EDT [facility] [place] Assessment and Plan aaliyah Capellan is a 17 y.o. female patient of Dian Velez MD 15 weeks who presented to [facility] ED with dizziness and persistent nausea and vomiting. She was found to be volume depleted and given IV fluids and antiemetics. Her nausea improved but she was dizzy on attempted ambulation with tachycardia and was admitted for ongoing fluid hydration Nausea and vomiting Hyperemesis gravidarum 15 weeks gestation IV Hydration Antiemetics prn Advance diet as tolerated Dizziness Volume depletion Due to persistent nausea and vomiting. Continue IV fluids and nausea management. Follows with obstetrics. No acute issues. Will follow-up with OB outpatient. OB consult Monitor heart tones UTI Reviewed UA, cloudy, positive leukocyte esterase and many bacteria. Urine Cx- P She had a urine culture in 06/2023, culture was negative at that time. Start on Keflex due to . Diabetes mellitus I She has insulin pump in situ. Last HbA1c was 6.3 on 08/13/2023. Diet currently being liberalized. Continue insulin pump Discharge Planning Medically Stable for Discharge Date: 09/23/23 Patient requires continued hospitalization due to: Nausea, vomiting Discharge Location: home Quality Measures DVT Prophylaxis: SCDs Gamez Catheter: absent Subjective Patient resting in bed, feels better this am, no further nausea or vomiting Objective BP 103/66 Pulse 85 Temp 98.5 F (36.9 C) (Oral) Resp 16 Ht 5' 6 Wt 68 kg (150 lb) LMP 06/10/2023 SpO2 98% BMI 24.21 kg/m Physical Examination General Appearance: alert; acutely ill appearing; in no acute distress HEENT: Head- normocephalic; Eyes- EOMI, sclera anicteric; Throat- mucous membranes moist Cardiovascular: regular rate and rhythm; normal S1, S2; no murmurs, rubs, clicks or gallops; peripheral edema absent Respiratory: lungs clear to auscultation; without wheezes, rales or rhonchi; on room air Abdomen: soft, non-tender, non-distended Neurological: oriented x 3; normal speech; no focal findings or movement disorder noted Musculoskeletal: no significant deformity or tenderness to palpation Skin: normal coloration Psych: normal mood and affect documented in this [id number] Note* Quick Note - Tessa Cruz RN - 09/22/2023 11:08 AM EDT heart rate 138. [id number] Miscellaneous Notes* Quick Note - Tessa Cruz RN - 09/22/2023 11:08 AM EDT heart rate 138. * Plan of Care - Tessa Cruz RN - 09/22/2023 7:42 AM EDT Problem: Actual or potential alteration in health Goal: Absence of healthcare acquired conditions Outcome: Partially Met Goal: Knowledge of Interdisciplinary Plan of Care Outcome: Partially Met Goal: Knowledge of Enviroment Outcome: Partially Met * Plan of Care - Mariela Peng RN - 09/22/2023 12:56 AM EDT Problem: Actual or potential alteration in health Goal: Absence of healthcare acquired conditions Outcome: Partially Met Note: Patient is receiving IV fluids and advancing diet as tolerated. No complaints of nausea voiced. Goal: Knowledge of Interdisciplinary Plan of Care Outcome: Partially Met Goal: Knowledge of Enviroment Outcome: Met documented in this [id number] Note* Plan of Care - Tessa Cruz RN - 09/22/2023 7:42 AM EDT Problem: Actual or potential alteration in health Goal: Absence of healthcare acquired conditions Outcome: Partially Met Goal: Knowledge of Interdisciplinary Plan of Care Outcome: Partially Met Goal: Knowledge of Enviroment Outcome: Partially Met [id number] Note* Plan of Care - Mariela Peng RN - 09/22/2023 12:56 AM EDT Problem: Actual or potential alteration in health Goal: Absence of healthcare acquired conditions Outcome: Partially Met Note: Patient is receiving IV fluids and advancing diet as tolerated. No complaints of nausea voiced. Goal: Knowledge of Interdisciplinary Plan of Care Outcome: Partially Met Goal: Knowledge of Enviroment Outcome: Met [id number] History and physical note* Campos Trinidad MD - 09/21/2023 6:06 PM EDT [facility] Patient Name: Catalina Capellan : 2005 MR #: [id number] Admit Date: 09/21/2023 Physicians: Dian Velez MD (Family); No ref. provider found (Referring) Catalina Capellan is a 17 y.o. female patient of Dian Velez MD 15 weeks who presented [facility] ED with dizziness and persistent nausea and vomiting. She was found to be volumedepleted and given IV fluids and antiemetics. Her nausea improved but she was dizzy on attempted ambulation with tachycardia and was admitted for ongoing fluid hydration Nausea and vomiting Hyperemesis gravidarum Nausea is improved, continue Zofran as needed. Fluid hydration as current. Dizziness Volume depletion Due to persistent nausea and vomiting. HR is improved with fluid hydration. Continue IV fluids and nausea management. Denies chest pain. Monitor heart rate on telemetry. Monitor electrolytes and correct deficits. Follows with obstetrics. No acute issues. Will follow-up with OB outpatient. UTI Reviewed UA, cloudy, positive leukocyte esterase and many bacteria. Denies symptoms. Send urine culture. She had a urine culture in 06/2023, culture was negative at that time. Start on Keflex due to . Diabetes mellitus I She has insulin pump in situ. Last HbA1c was 6.3 on 08/13/2023. Diet currently being liberalized. Continue insulin pump Residence prior to admission: house or apartment Was patient transferred from outlying hospital or ED no Quality Measures DVT Prophylaxis: ambulation only Gamez Catheter: absent Medication Reconciliation: Verified Admitted with these risk variables:Hypovolemia. Please see assessment and plan for further details. Estimated Date of Discharge less than 2 midnights Code Status Full Code; code status verified on 09/21/2023 with patient (capacity intact) Chief Complaint Dizziness History of Present Illness 17-year-old female 1 diabetic who is 15 weeks , presented to theED with complaint of nausea, vomiting and dizziness. She reportedly woke up this morning with impairment in her balance and reported some degree of confusion. Patient has been having persistent morning sickness since her and having a lot of vomiting on the day of presentation. She was found to be volume depleted and was given fluid hydration and antiemetics with improvement in symptoms. She was however still dizzy and tachycardic on ambulation and was admitted for further fluid hydration. UA also showed UTI and she was started on antibiotics. Past Medical History Past Medical History: Diagnosis Date Diabetes mellitus (HCC) Past Surgical History Past Surgical History: Procedure Laterality Date CYSTO LASER LITHOTRIPSY BLADDER STONE Family History No family history on file. Social History Social History Tobacco Use Smoking Status Never Smokeless Tobacco Never Social History Substance and Sexual Activity Alcohol Use Not Currently Social History Substance and Sexual Activity Drug Use Never Allergy Information I have reviewed the patient's allergies. Patient has no known allergies. Home Medications Home medications were reviewed. Review Of Systems All relevant systems have been reviewed and are negative except as noted in HPI or below Physical Examination BP 114/74 Pulse (!) 108 Temp 98.1 F (36.7 C) (Oral) Resp (!) 20 Ht 5' 6 Wt 68 kg (150 lb) LMP 06/10/2023 SpO2 99% BMI 24.21 kg/m General Appearance: alert; well appearing; in no acute distress HEENT: Head- normocephalic; Eyes- EOMI, sclera anicteric; Throat- mucous membranes moist Cardiovascular: regular rate and rhythm; normal S1, S2; no murmurs, rubs, clicks or gallops; peripheral edema absent Respiratory: lungs clear to auscultation; without wheezes, rales or rhonchi; on room air Abdomen: soft, non-tender, non-distended Neurological: oriented x 3; normal speech; no focal findings or movement disorder noted Musculoskeletal: no significant deformity or tenderness to palpation Skin: normal coloration, warm and dry to Psych: normal mood and affect, no agitation. [id number] History and physical note* Campos Trinidad MD - 09/21/2023 6:06 PM EDT [facility] [place] [facility] Patient Name: Catalina Capellan : 2005 MR #: [id number] Admit Date: 09/21/2023 Physicians: Dian Velez MD (Family); No ref. provider found (Referring) Catalina Capellan is a 17 y.o. female patient of Dian Velez MD 15 weeks who presented [facility] ED with dizziness and persistent nausea and vomiting. She was found to be volumedepleted and given IV fluids and antiemetics. Her nausea improved but she was dizzy on attempted ambulation with tachycardia and was admitted for ongoing fluid hydration Nausea and vomiting Hyperemesis gravidarum Nausea is improved, continue Zofran as needed. Fluid hydration as current. Dizziness Volume depletion Due to persistent nausea and vomiting. HR is improved with fluid hydration. Continue IV fluids and nausea management. Denies chest pain. Monitor heart rate on telemetry. Monitor electrolytes and correct deficits. Follows with obstetrics. No acute issues. Will follow-up with OB outpatient. UTI Reviewed UA, cloudy, positive leukocyte esterase and many bacteria. Denies symptoms. Send urine culture. She had a urine culture in 06/2023, culture was negative at that time. Start on Keflex due to . Diabetes mellitus I She has insulin pump in situ. Last HbA1c was 6.3 on 08/13/2023. Diet currently being liberalized. Continue insulin pump Residence prior to admission: house or apartment Was patient transferred from outlying hospital or ED no Quality Measures DVT Prophylaxis: ambulation only Gamez Catheter: absent Medication Reconciliation: Verified Admitted with these risk variables:Hypovolemia. Please see assessment and plan for further details. Estimated Date of Discharge less than 2 midnights Code Status Full Code; code status verified on 09/21/2023 with patient (capacity intact) Chief Complaint Dizziness History of Present Illness 17-year-old female 1 diabetic who is 15 weeks , presented to theED with complaint of nausea, vomiting and dizziness. She reportedly woke up this morning with impairment in her balance and reported some degree of confusion. Patient has been having persistent morning sickness since her and having a lot of vomiting on the day of presentation. She was found to be volume depleted and was given fluid hydration and antiemetics with improvement in symptoms. She was however still dizzy and tachycardic on ambulation and was admitted for further fluid hydration. UA also showed UTI and she was started on antibiotics. Past Medical History Past Medical History: Diagnosis Date Diabetes mellitus (HCC) Past Surgical History Past Surgical History: Procedure Laterality Date CYSTO LASER LITHOTRIPSY BLADDER STONE Family History No family history on file. Social History Social History Tobacco Use Smoking Status Never Smokeless Tobacco Never Social History Substance and Sexual Activity Alcohol Use Not Currently Social History Substance and Sexual Activity Drug Use Never Allergy Information I have reviewed the patient's allergies. Patient has no known allergies. Home Medications Home medications were reviewed. Review Of Systems All relevant systems have been reviewed and are negative except as noted in HPI or below Physical Examination BP 114/74 Pulse (!) 108 Temp 98.1 F (36.7 C) (Oral) Resp (!) 20 Ht 5' 6 Wt 68 kg (150 lb) LMP 06/10/2023 SpO2 99% BMI 24.21 kg/m General Appearance: alert; well appearing; in no acute distress HEENT: Head- normocephalic; Eyes- EOMI, sclera anicteric; Throat- mucous membranes moist Cardiovascular: regular rate and rhythm; normal S1, S2; no murmurs, rubs, clicks or gallops; peripheral edema absent Respiratory: lungs clear to auscultation; without wheezes, rales or rhonchi; on room air Abdomen: soft, non-tender, non-distended Neurological: oriented x 3; normal speech; no focal findings or movement disorder noted Musculoskeletal: no significant deformity or tenderness to palpation Skin: normal coloration, warm and dry to Psych: normal mood and affect, no agitation. documented in this [id number] Miscellaneous Notes* Telephone Encounter - Swapna Cardenas MD - 09/21/2023 5:10 PM EDT Order in. will leave up to [facility]. Doesn't really need from my standpoint. Swapna Cardenas MD * Telephone Encounter - Jazzy Cunningham RN - 09/21/2023 4:51 PM EDT Patient 15w0d has appointment with M and RR tomorrow. There is no ultrasound order, do you want an early anatomy? Jazzy Cunningham RN [facility] * Goldie Bernabe RN - 09/21/2023 3:52 PM EDT Ambulated pt down hightower from 8 to room 12, pt c/o dizziness and HR increased from 90 resting to 140 while ambulating. Pt returned to ed cart. Pt resting on cart and denies further needs. Pt resps evenand unlabored. Dr. Sandra notified [id number] Emergency department Note* Goldie Bernabe RN - 09/21/2023 3:52 PM EDT Ambulated pt down hightower from 8 to room 12, pt c/o dizziness and HR increased from 90 resting to 140 while ambulating. Pt returned to ed cart. Pt resting on cart and denies further needs. Pt resps evenand unlabored. Dr. Sandra notified * Javier Sandra MD - 09/21/2023 12:27 PM EDTAssociated Order(s): EKG 12-lead [facility] EMERGENCY DEPARTMENT - Emergency Medicine Attending Note: NAME: Catalina Capellan 17 y.o. CSN: [id number] PCP: Dian Velez MD History: Chief Complaint: Dizziness HPI: The history was obtained from the patient. Catalina is a 17 y.o. female who presents with a chief complaint of Dizziness. HPI 17-year-old female, history of type 1 diabetes, presenting for evaluation of dizziness. Her partnerstates that when she woke up this morning, she is having some balance issues, and that her pupils being more dilated as well. She reports that she is having some confusion at times, and has been having some balance issues ever since she woke up. Reports that she has been having a lot of issues withmorning sickness during this . Has been having a lot of vomiting today. ROS: Review of Systems Constitutional: Positive for fatigue. Negative for activity change, appetite change and fever. Eyes: Negative for photophobia, pain, redness and visual disturbance. Respiratory: Negative for apnea, chest tightness, shortness of breath and wheezing. Cardiovascular: Negative for chest pain and palpitations. Gastrointestinal: Positive for nausea and vomiting. Negative for abdominal pain, constipation and diarrhea. Genitourinary: Negative for difficulty urinating and hematuria. Skin: Negative for color change. Allergic/Immunologic: Negative for environmental allergies and food allergies. Neurological: Positive for dizziness and light-headedness. Negative for syncope, numbness and headaches. Positives and pertinent negatives as per HPI. All other systems were reviewed and are negative. Physical Exam: Patient Vitals for the past 24 hrs: BP Temp Temp src Pulse Resp SpO2 Height Weight 09/21/23 1551 114/74 -- -- (!) 108 (!) 20 99 % -- -- 09/21/23 1549 -- -- -- (!) 141 (!) 31 99 % -- -- 09/21/23 1330 125/78 -- -- (!) 100 (!) 22 100 % -- -- 09/21/23 1315 120/76 -- -- 94 (!) 11 100 % -- -- 09/21/23 1245 116/70 -- -- 84 (!) 22 100 % -- -- 09/21/23 1200 129/78 -- -- 94 18 98 % -- -- 09/21/23 1145 116/78 -- -- 94 (!) 9 97 % -- -- 09/21/23 1106 (!) 142/94 98.1 F (36.7 C) Oral (!) 131 12 97 % 5' 6 68 kg (150 lb) Physical Exam Constitutional: General: She is not in acute distress. Appearance: She is ill-appearing (Patient is ill-appearing, but in no acute distress.). She is not diaphoretic. HENT: Head: Normocephalic and atraumatic. Right Ear: External ear normal. Left Ear: External ear normal. Mouth/Throat: Mouth: Mucous membranes are moist. Pharynx: Oropharynx is clear. Eyes: General: No scleral icterus. Extraocular Movements: Extraocular movements intact. Pupils: Pupils are equal, round, and reactive to light. Neck: Vascular: No JVD. Trachea: No tracheal deviation. Cardiovascular: Rate and Rhythm: Normal rate and regular rhythm. Pulses: Normal pulses. Heart sounds: Normal heart sounds. No murmur heard. No friction rub. No gallop. Pulmonary: Effort: Pulmonary effort is normal. No respiratory distress. Breath sounds: Normal breath sounds. No wheezing or rales. Chest: Chest wall: No tenderness. Abdominal: General: There is no distension. Palpations: Abdomen is soft. There is no mass. Tenderness: There is no abdominal tenderness. There is no rebound. Musculoskeletal: General: No deformity. Skin: General: Skin is warm and dry. Neurological: General: No focal deficit present. Mental Status: She is alert and oriented to person, place, and time. Psychiatric: Mood and Affect: Mood normal. Behavior: Behavior normal. Laboratory & Radiological Imaging (if done): Labs Reviewed BASIC METABOLIC PANEL - Abnormal; Notable for the following components: Result Value BUN 5 (*) Creatinine 0.43 (*) All other components within normal limits Narrative: [facility] has implemented the eGFR calculation approach that does not have a coefficient for race that conforms to the NKF-ASN Task Force Recommendations. URINALYSIS - Abnormal; Notable for the following components: Clarity, Urine Cloudy (*) Ketones, Urine 20 (*) Leukocyte Esterase, Urine Moderate (*) WBCs, Urine 15 (*) RBCs, Urine 19 (*) Bacteria, Urine Many (*) Squamous Epithelial 14 (*) Renal Epithelial <1 (*) Amorphous Crystals Few (*) Mucus, Urine Few (*) All other components within normal limits Narrative: Microscopic examination is performed on all urinalysis samples and only positive findings are reported. The test for blood on the chemical analytic portion of urinalysis may also be positive due to hemoglobinuria and myoglobinuria and if red blood cells are present they are quantified by microscopic examination. POC VENOUS BLOOD GAS PANEL-PULM - RALS - Abnormal; Notable for the following components: pH, Venous 7.45 (*) pCO2, Jimmy 35.8 (*) pO2, Jimmy 54 (*) Hemoglobin, Blood Gas 11.9 (*) O2 Sat, Jimmy 89.3 (*) Potassium 3.4 (*) All other components within normal limits CBC WITH AUTO DIFFERENTIAL - Abnormal; Notable for the following components: RDW - CV 16.0 (*) Neutrophils Abs 7.22 (*) All other components within normal limits COVID-19/INFLUENZA A,B MOLECULAR - Normal Narrative: This test was performed under the FDA's Emergency Use Authorization (EUA). Testing was performed using the Selena Star SARS-CoV-2 RT-PCR & Influenza A/B Nucleic Acid Teston the Star Yesy System. This test has not been approved for use in asymptomatic patients and its performance in this patient population has not been evaluated. Negative results do not rule out the presence of SARS-CoV-2, influenza A, and/or influenza B. Fact sheets for the EUA can be found at the following links: For Healthcare Providers: https://www.fda.gov/media/364349/download For Patients: https://www.fda.gov/media/290938/download HEPATIC FUNCTION PANEL - Normal LIPASE - Normal BETA-HYDROXYBUTYRATE - Normal MAGNESIUM LEVEL - Normal DRUGS OF ABUSE SCREEN, URINE - Normal Narrative: Screen results should be used for treatment purposes only. POC GLUCOSE - RALS - Normal OBTAIN VENOUS BLOOD GASES AND PERFORM CBC AND DIFFERENTIAL Narrative: The following orders were created for panel order CBC w/ Diff. Procedure Abnormality Status --------- ------ CBC Auto Differential[[id number]] Abnormal Final result Please view results for these tests on the individual orders. TROPONIN No orders to display Procedures: EKG 12-lead Date/Time: 09/21/2023 12:31 PM Performed by: Javier Sandra MD Authorized by: Javier Sandra MD Interpreted by ED attending physician Rhythm: sinus rhythm and sinus tachycardia BPM: 110 ST Segments: ST segments normal Clinical impression: abnormal ECG and sinus tachycardia ED Course / Medical Decision Makin-year-old female, presenting today for evaluation of nausea and vomiting with dizziness describedabove. She is found to be tachycardic here, and is given a fluid bolus. Labs are obtained, showing no acute metabolic abnormalities, electrolytes are within normal limits, in particular, potassium isnormal at 3.6, magnesium of 1.6. Remainder labs are largely unremarkable, as described above. She had improvement of her tachycardia, and upon reevaluation prior to discussion about discharge, she had improved heart rate, and nausea and vomiting was getting better and she was started able to tolerate some p.o. intake. However, upon ambulation trial prior to discharge, she came extremely dizzy, and tachycardic again with a heart rate in the 140s. As such, I did consult with GUIDANCE ADVISER, (unassigned service as her GUIDANCE ADVISER is from out of town ) and they are happy to consult on the patient, but due to her only being 15 weeks, recommend medicine primary admission. We discussed the results of the work up in the emergency department. Patient and partner agreeable to plan of care, including for admission at this time. We did have a discussion about discharge homeand oral rehydration, however, they did not feel comfortable with this, given that she is still very symptomatic when she stands up, and I agree that she would benefit from observation admission for IV hydration. I spoke with the [facility] Welder/Unassigned Medicine Service, Dr. Trinidad, and the patient will be accepted onto their inpatient service. ED MIPS (if empty, not applicable): Coding Elements: Medical Decision Making Clinical Impression: 1. Hyperemesis gravidarum 2. Dehydration Disposition: hospitalize to Observation Unit (CDU/OBS) Javier Sandra M.D. Attending Physician [facility] EMERGENCY DEPARTMENT 09/21/2023 Portions of this note may have been dictated utilizing voice recognition software. Unfortunately this leads to occasional typographical errors. If questions arise please do not hesitate to contact ayesha for clarification. Data from EMR: PMHx: Past Medical History: Diagnosis Date Diabetes mellitus (HCC) PMSx: Past Surgical History: Procedure Laterality Date CYSTO LASER LITHOTRIPSY BLADDER STONE FAM. Hx: No family history on file. SOC. Hx: Social History Socioeconomic History Marital status: Single Tobacco Use Smoking status: Never Smokeless tobacco: Never Vaping Use Vaping Use: Never used Substance and Sexual Activity Alcohol use: Not Currently Drug use: Never MEDs: Previous Medications Medication Sig Dexcom G6 Transmitter Leny Lantus Solostar U-100 Insulin 100 unit/mL (3 mL) InPn Inject up to 20units SQ nightly as directed, dose subject to change metoclopramide (REGLAN) 5 MG tablet Take 1 (one) tablet (5 mg total) by mouth 4 (four) times a day with meals and nightly for 10 days . ALL: No Known Allergies (Please note that portions of this note have been completed with a voice recognition software. Efforts were made to correct any errors, but occasionally words are mis-transcribed.) Javier Sandra MD 09/21/23 1613 * Anders Francisco RN - 09/21/2023 11:13 AM EDT Pt arrives ambulatory via triage. Pt states that she has been having confusion, balance issues/dizziness since this morning. Pt is 15wks . Pt states she has had a lot of morning sickness. Pt is also a type one diabetic. * Amira Adame RN - 09/21/2023 10:56 AM EDT Pt to ED with boyfriend stating this morning she woke up with dilated pupils, confused, and having balance issues. documented in this [id number] Physician Emergency department Note* Javier Sandra MD - 09/21/2023 12:27 PM EDTAssociated Order(s): EKG 12-lead [facility] EMERGENCY DEPARTMENT - Emergency Medicine Attending Note: NAME: Catalina Capellan 17 y.o. CSN: [id number] PCP: Dian Velez MD History: Chief Complaint: Dizziness HPI: The history was obtained from the patient. Catalina is a 17 y.o. female who presents with a chief complaint of Dizziness. HPI 17-year-old female, history of type 1 diabetes, presenting for evaluation of dizziness. Her partnerstates that when she woke up this morning, she is having some balance issues, and that her pupils being more dilated as well. She reports that she is having some confusion at times, and has been having some balance issues ever since she woke up. Reports that she has been having a lot of issues withmorning sickness during this . Has been having a lot of vomiting today. ROS: Review of Systems Constitutional: Positive for fatigue. Negative for activity change, appetite change and fever. Eyes: Negative for photophobia, pain, redness and visual disturbance. Respiratory: Negative for apnea, chest tightness, shortness of breath and wheezing. Cardiovascular: Negative for chest pain and palpitations. Gastrointestinal: Positive for nausea and vomiting. Negative for abdominal pain, constipation and diarrhea. Genitourinary: Negative for difficulty urinating and hematuria. Skin: Negative for color change. Allergic/Immunologic: Negative for environmental allergies and food allergies. Neurological: Positive for dizziness and light-headedness. Negative for syncope, numbness and headaches. Positives and pertinent negatives as per HPI. All other systems were reviewed and are negative. Physical Exam: Patient Vitals for the past 24 hrs: BP Temp Temp src Pulse Resp SpO2 Height Weight 09/21/23 1551 114/74 -- -- (!) 108 (!) 20 99 % -- -- 09/21/23 1549 -- -- -- (!) 141 (!) 31 99 % -- -- 09/21/23 1330 125/78 -- -- (!) 100 (!) 22 100 % -- -- 09/21/23 1315 120/76 -- -- 94 (!) 11 100 % -- -- 09/21/23 1245 116/70 -- -- 84 (!) 22 100 % -- -- 09/21/23 1200 129/78 -- -- 94 18 98 % -- -- 09/21/23 1145 116/78 -- -- 94 (!) 9 97 % -- -- 09/21/23 1106 (!) 142/94 98.1 F (36.7 C) Oral (!) 131 12 97 % 5' 6 68 kg (150 lb) Physical Exam Constitutional: General: She is not in acute distress. Appearance: She is ill-appearing (Patient is ill-appearing, but in no acute distress.). She is not diaphoretic. HENT: Head: Normocephalic and atraumatic. Right Ear: External ear normal. Left Ear: External ear normal. Mouth/Throat: Mouth: Mucous membranes are moist. Pharynx: Oropharynx is clear. Eyes: General: No scleral icterus. Extraocular Movements: Extraocular movements intact. Pupils: Pupils are equal, round, and reactive to light. Neck: Vascular: No JVD. Trachea: No tracheal deviation. Cardiovascular: Rate and Rhythm: Normal rate and regular rhythm. Pulses: Normal pulses. Heart sounds: Normal heart sounds. No murmur heard. No friction rub. No gallop. Pulmonary: Effort: Pulmonary effort is normal. No respiratory distress. Breath sounds: Normal breath sounds. No wheezing or rales. Chest: Chest wall: No tenderness. Abdominal: General: There is no distension. Palpations: Abdomen is soft. There is no mass. Tenderness: There is no abdominal tenderness. There is no rebound. Musculoskeletal: General: No deformity. Skin: General: Skin is warm and dry. Neurological: General: No focal deficit present. Mental Status: She is alert and oriented to person, place, and time. Psychiatric: Mood and Affect: Mood normal. Behavior: Behavior normal. Laboratory & Radiological Imaging (if done): Labs Reviewed BASIC METABOLIC PANEL - Abnormal; Notable for the following components: Result Value BUN 5 (*) Creatinine 0.43 (*) All other components within normal limits Narrative: [facility] has implemented the eGFR calculation approach that does not have a coefficient for race that conforms to the NKF-ASN Task Force Recommendations. URINALYSIS - Abnormal; Notable for the following components: Clarity, Urine Cloudy (*) Ketones, Urine 20 (*) Leukocyte Esterase, Urine Moderate (*) WBCs, Urine 15 (*) RBCs, Urine 19 (*) Bacteria, Urine Many (*) Squamous Epithelial 14 (*) Renal Epithelial <1 (*) Amorphous Crystals Few (*) Mucus, Urine Few (*) All other components within normal limits Narrative: Microscopic examination is performed on all urinalysis samples and only positive findings are reported. The test for blood on the chemical analytic portion of urinalysis may also be positive due to hemoglobinuria and myoglobinuria and if red blood cells are present they are quantified by microscopic examination. POC VENOUS BLOOD GAS PANEL-PULM - RALS - Abnormal; Notable for the following components: pH, Venous 7.45 (*) pCO2, Jimmy 35.8 (*) pO2, Jimmy 54 (*) Hemoglobin, Blood Gas 11.9 (*) O2 Sat, Jimmy 89.3 (*) Potassium 3.4 (*) All other components within normal limits CBC WITH AUTO DIFFERENTIAL - Abnormal; Notable for the following components: RDW - CV 16.0 (*) Neutrophils Abs 7.22 (*) All other components within normal limits COVID-19/INFLUENZA A,B MOLECULAR - Normal Narrative: This test was performed under the FDA's Emergency Use Authorization (EUA). Testing was performed using the Selena Star SARS-CoV-2 RT-PCR & Influenza A/B Nucleic Acid Teston the Star Yesy System. This test has not been approved for use in asymptomatic patients and its performance in this patient population has not been evaluated. Negative results do not rule out the presence of SARS-CoV-2, influenza A, and/or influenza B. Fact sheets for the EUA can be found at the following links: For Healthcare Providers: https://www.fda.gov/media/191234/download For Patients: https://www.fda.gov/media/320386/download HEPATIC FUNCTION PANEL - Normal LIPASE - Normal BETA-HYDROXYBUTYRATE - Normal MAGNESIUM LEVEL - Normal DRUGS OF ABUSE SCREEN, URINE - Normal Narrative: Screen results should be used for treatment purposes only. POC GLUCOSE - RALS - Normal OBTAIN VENOUS BLOOD GASES AND PERFORM CBC AND DIFFERENTIAL Narrative: The following orders were created for panel order CBC w/ Diff. Procedure Abnormality Status --------- ------ CBC Auto Differential[[id number]] Abnormal Final result Please view results for these tests on the individual orders. TROPONIN No orders to display Procedures: EKG 12-lead Date/Time: 09/21/2023 12:31 PM Performed by: Javier Sandra MD Authorized by: Javier Sandra MD Interpreted by ED attending physician Rhythm: sinus rhythm and sinus tachycardia BPM: 110 ST Segments: ST segments normal Clinical impression: abnormal ECG and sinus tachycardia ED Course / Medical Decision Makin-year-old female, presenting today for evaluation of nausea and vomiting with dizziness describedabove. She is found to be tachycardic here, and is given a fluid bolus. Labs are obtained, showing no acute metabolic abnormalities, electrolytes are within normal limits, in particular, potassium isnormal at 3.6, magnesium of 1.6. Remainder labs are largely unremarkable, as described above. She had improvement of her tachycardia, and upon reevaluation prior to discussion about discharge, she had improved heart rate, and nausea and vomiting was getting better and she was started able to tolerate some p.o. intake. However, upon ambulation trial prior to discharge, she came extremely dizzy, and tachycardic again with a heart rate in the 140s. As such, I did consult with GUIDANCE ADVISER, (unassigned service as her GUIDANCE ADVISER is from out of town ) and they are happy to consult on the patient, but due to her only being 15 weeks, recommend medicine primary admission. We discussed the results of the work up in the emergency department. Patient and partner agreeable to plan of care, including for admission at this time. We did have a discussion about discharge homeand oral rehydration, however, they did not feel comfortable with this, given that she is still very symptomatic when she stands up, and I agree that she would benefit from observation admission for IV hydration. I spoke with the [facility]/Unassigned Medicine Service, Dr. Trinidad, and the patient will be accepted onto their inpatient service. ED MIPS (if empty, not applicable): Coding Elements: Medical Decision Making Clinical Impression: 1. Hyperemesis gravidarum 2. Dehydration Disposition: hospitalize to Observation Unit (CDU/OBS) Javier Sandra M.D. Attending Physician [facility] EMERGENCY DEPARTMENT 09/21/2023 Portions of this note may have been dictated utilizing voice recognition software. Unfortunately this leads to occasional typographical errors. If questions arise please do not hesitate to contact ayesha for clarification. Data from EMR: PMHx: Past Medical History: Diagnosis Date Diabetes mellitus (HCC) PMSx: Past Surgical History: Procedure Laterality Date CYSTO LASER LITHOTRIPSY BLADDER STONE FAM. Hx: No family history on file. SOC. Hx: Social History Socioeconomic History Marital status: Single Tobacco Use Smoking status: Never Smokeless tobacco: Never Vaping Use Vaping Use: Never used Substance and Sexual Activity Alcohol use: Not Currently Drug use: Never MEDs: Previous Medications Medication Sig Dexcom G6 Transmitter Leny Lantus Solostar U-100 Insulin 100 unit/mL (3 mL) InPn Inject up to 20units SQ nightly as directed, dose subject to change metoclopramide (REGLAN) 5 MG tablet Take 1 (one) tablet (5 mg total) by mouth 4 (four) times a day with meals and nightly for 10 days . ALL: No Known Allergies (Please note that portions of this note have been completed with a voice recognition software. Efforts were made to correct any errors, but occasionally words are mis-transcribed.) Javier Sandra MD 09/21/23 1613 [id number] Emergency department Triage note* Anders Francisco RN - 09/21/2023 11:13 AM EDT Pt arrives ambulatory via triage. Pt states that she has been having confusion, balance issues/dizziness since this morning. Pt is 15wks . Pt states she has had a lot of morning sickness. Pt is also a type one diabetic. [id number] Emergency department Triage note* Amira Adame RN - 09/21/2023 10:56 AM EDT Pt to ED with boyfriend stating this morning she woke up with dilated pupils, confused, and having balance issues. [id number] Emergency department Note* Brielle Carlson RN - 09/07/2023 8:38 PM EDT Discharged by provider [facility]03-11-2024 Emergency department Note* Brielle Carlson RN - 09/07/2023 8:38 PM EDT Discharged by provider * Brielle Carlson RN - 09/07/2023 8:09 PM EDT Introduced self to patient and family. Patient identified by name/. Sent by maternal medicine. Pt having chest pains and trouble breathing. Patient awaiting further orders from physician at this time. Family present at bedside. Side rails up x2. Call light in reach. Will continue to monitor. * Marisa Canela RN - 09/07/2023 7:43 PM EDT Pt here for concerns for difficulty breathing. States was seen at OSH for concerns yesterday as well. Rates chest pain a 4 at this time. Pt alert and NAD, skin pink warm and dry, lungs clear and respeasy, MMM and pink, belly soft and nondistended, [facility] Discharge instructions* Discharge Instructions* Sheila Mason DO - 09/07/2023 8:26 PM EDT Tylenol as directed as needed for pain, warm compresses to the area as well as lidocaine patches asneeded as discussed 12 hours on 12 hours off. Please call your OB provider in the morning to schedule a follow-up appointment. [facility] Note* Brielle Carlson RN - 09/07/2023 8:09 PM EDT Introduced self to patient and family. Patient identified by name/. Sent by maternal medicine. Pt having chest pains and trouble breathing. Patient awaiting further orders from physician at this time. Family present at bedside. Side rails up x2. Call light in reach. Will continue to monitor. [facility]03-11-2024 Emergency department Triage note* Marisa Canela RN - 09/07/2023 7:43 PM EDT Pt here for concerns for difficulty breathing. States was seen at OSH for concerns yesterday as well. Rates chest pain a 4 at this time. Pt alert and NAD, skin pink warm and dry, lungs clear and respeasy, MMM and pink, belly soft and nondistended, [facility]03-10-2024 Emergency department Note* Martha Cutler RN - 09/06/2023 9:10 PM EDT Patient verbalized understanding of paperwork. Respirations even and unlabored upon discharge. Steady gait with ambulation. Martha Cutler RN 09/06/232109 [id number] Emergency [facility] Note* Martha Cutler RN - 09/06/2023 9:10 PM EDT Patient verbalized understanding of paperwork. Respirations even and unlabored upon discharge. Steady gait with ambulation. Martha Cutler RN 09/06/232109 * Martha Cutler RN - 09/06/2023 9:03 PM EDT Patient resting in bed, respirations even and unlabored. Call light within reach. Visitor at bedside. Martha Cutler RN 09/06/232102 * Martha Cutler RN - 09/06/2023 7:51 PM EDT Patient resting in bed, respirations even and unlabored. Call light within reach. Visitor at bedside. Martha Cutler RN 09/06/231950 * Martha Cutler RN - 09/06/2023 7:25 PM EDT Anish Agarwal RN, patient refusing BGT rechecked d/t not wanting finger poked. Martha Cutler RN 09/06/232116 * Martha Cutler RN - 09/06/2023 7:24 PM EDT Report from JES Agarwal. Martha Cutler RN 09/06/231923 * Roland Mas RN - 09/06/2023 6:07 PM EDT Pt was given crackers and a coke to help with low BGT. Roland Mas RN 09/06/231856 * Zina CoxERINN avelarN - COOPERATIVE MANAGER - 09/06/2023 2:57 PM EDT I saw this patient very briefly as the Provider in Triage to establish acuity and develop basic plan of care. A more thorough history and physical exam will be documented by treating physician and/orAPP in the emergency department. History: Patient is an 17-year-old female, G1, P0 approximately 12 weeks [facility] with chest pain, shortness of breath that started yesterday, endorses cough, denies any fevers but has not taken her temperature. Denies any exposure to sick contacts, does endorse leg cramping bilaterally. Denies any history of PE or DVT. Denies any hemoptysis. Does report nausea, vomiting. Has had an ultrasound with this that does verify intrauterine . GENERAL: The patient appears nourished and normally developed. Vital signs as documented. EYES: Head exam is unremarkable. No scleral icterus or orbital trauma noted. HEENT: Mucous membranes moist. Nares patent without copious rhinorrhea. No enlarged lymphadenopathy. LUNGS: Lungs are clear to auscultation, without any respiratory distress. CARDIAC: Rhythm is regular. No dysrythmias or murmurs. ABDOMEN: Nontender with no obvious masses, and no peritoneal signs. MUSCULOSKELETAL: Non edematous, with no obvious deformities. SKIN: Good color, with no significant rashes. No pallor. NEURO: No obvious neurological deficits, normal sensation and strength bilaterally. patient able toambulate Plan: -IV, lab work, EKG, discussed imaging Patient awaiting room in main ED, see ED provider note for full H and P, evaluation, disposition. Comment: Please note this report has been produced using speech recognition software and may contain errors related to that system including errors in grammar, punctuation, and spelling, as well as words and phrases that may be inappropriate. If there are any questions or concerns please feel free to contact the dictating provider for clarification. AMAN Dickey CNP 09/06/23 1511 * Jaiden Carpenter DO - 09/06/2023 2:57 PM EDT EMERGENCY DEPARTMENT ENCOUNTER Pt Name: Catalina Capellan Birthdate 2005 Date of evaluation: 09/06/2023 ED Provider: Jaiden Carpenter DO CHIEF COMPLAINT Chief Complaint Patient presents with Shortness of Breath Patient is 12 weeks , reports worsening shortness of breath, and palpitations x3 days as well as migraines HISTORY OF PRESENT ILLNESS (Location/Symptom, Timing/Onset, Context/Setting, Quality, Duration, Modifying Factors, Severity) Note limiting factors. I wore appropriate PPE for the entirety of this encounter. HPI Catalina Capellan is a 17 y.o. female who presents to the emergency department for shortness of breath Patient is G1, P0 approximately 12 weeks presenting with chest pain and shortness of breath that started yesterday. Patient has a PMH of DM T1, anxiety, and depression. Patient states her symptoms started around 8 AM yesterday with shortness of breath. The symptoms were sudden onset however they dissipated throughout the day and she was able to work without complication. Last night however, she woke up with another episode of shortness of breath with headache. Shestates the headache feels like a migraine and describes it as a banding distribution around her head that is squeezing with associated photophobia and sensitivity to sound. She denies any chest pain,pleurisy, hemoptysis, nausea, and vomiting. Patient was previously hospitalized in July for hypoglycemia in the setting of her T1DM, otherwise her has been uncomplicated. Nursing Notes were reviewed. Limitations to history: None Outside historians: None REVIEW OF SYSTEMS Review of Systems Constitutional: Negative for chills, fatigue and fever. Respiratory: Positive for shortness of breath. Negative for cough and chest tightness. Cardiovascular: Negative for chest pain. Gastrointestinal: Negative for abdominal pain, nausea and vomiting. Genitourinary: Negative for dysuria, flank pain and urgency. Neurological: Positive for headaches. Negative for dizziness and light-headedness. PAST MEDICAL HISTORY Past Medical History: Diagnosis Date Anxiety Depression Diabetes mellitus affecting Kidney stone SURGICAL HISTORY No past surgical history on file. CURRENT MEDICATIONS Previous Medications CETIRIZINE (ZYRTEC) 10 MG TABLET Take 10 mg by mouth daily. INSULIN LISPRO (HUMALOG) 100 UNIT/ML PATIENT SUPPLIED PUMP Inject under the skin continuous. VIT-FE FUMARATE-FA ( 1+1 PO) Take 1 tablet by mouth daily. ALLERGIES Patient has no known allergies. FAMILY HISTORY No family history on file. SOCIAL HISTORY Social History Socioeconomic History Marital status: Single Tobacco Use Smoking status: Never Substance and Sexual Activity Alcohol use: Never Drug use: Never Sexual activity: Yes Social Determinants of Health Transportation Needs: No Transportation Needs (08/09/2023) PRAPARE - Transportation Lack of Transportation (Medical): No Lack of Transportation (Non-Medical): No Intimate Partner Violence: Not At Risk (08/09/2023) Humiliation, Afraid, Rape, and Kick questionnaire Fear of Current or Ex-Partner: No Emotionally Abused: No Physically Abused: No Sexually Abused: No Housing Stability: Low Risk (08/09/2023) Housing Stability Vital Sign Unable to Pay for Housing in the Last Year: No Number of Places Lived in the Last Year: 1 Unstable Housing in the Last Year: No SCREENINGS PHYSICAL EXAM ED Triage Vitals [09/06/23 1511] Temp Heart Rate Resp BP 37.3 C (99.2 F) 104 16 122/79 SpO2 Temp Source Heart Rate Source Patient Position 97 % Temporal Monitor -- BP Location FiO2 (%) -- -- Physical Exam Constitutional: General: She is not in acute distress. Appearance: Normal appearance. She is not ill-appearing or toxic-appearing. HENT: Head: Normocephalic and atraumatic. Cardiovascular: Rate and Rhythm: Normal rate and regular rhythm. Pulses: Normal pulses. Heart sounds: Normal heart sounds. No murmur heard. No gallop. Pulmonary: Effort: Pulmonary effort is normal. Breath sounds: Normal breath sounds. No wheezing, rhonchi or rales. Abdominal: General: Abdomen is flat. Bowel sounds are normal. There is no distension. Palpations: Abdomen is soft. Musculoskeletal: Right lower leg: No edema. Left lower leg: No edema. Skin: General: Skin is warm and dry. Neurological: General: No focal deficit present. Mental Status: She is alert and oriented to person, place, and time. Mental status is at baseline. Psychiatric: Mood and Affect: Mood normal. Behavior: Behavior normal. Thought Content: Thought content normal. DIAGNOSTIC RESULTS RADIOLOGY (Per Emergency Physician): Interpretation per the Radiologist below, if available at the time of this note: No orders to display LABS: Labs Reviewed SARS-COV-2, FLU A/B, AND RSV COMBO D-DIMER,QUANTITATIVE HCG QUANTITATIVE BLOOD TROPONIN, WITH SERIAL REFLEX COMPREHENSIVE METABOLIC PANEL CBC WITH AUTO DIFFERENTIAL COMPLETE URINALYSIS WITH REFLEX TO CULTURE Narrative: The following orders were created for panel order Urinalysis complete with reflex to Culture. Procedure Abnormality Status --------- ------ Complete Urinalysis[[id number]] Please view results for these tests on the individual orders. COMPLETE URINALYSIS All other labs were within normal range or not returned as of this dictation. EMERGENCY DEPARTMENT COURSE and DIFFERENTIAL DIAGNOSIS/MDM: Vitals: Vitals: 09/06/23 1511 BP: 122/79 Pulse: 104 Resp: 16 Temp: 37.3 C (99.2 F) TempSrc: Temporal SpO2: 97% Weight: 65.8 kg (145 lb) The patient presented with a chief complaint of shortness of breath. The differential diagnosis associated with this patient's presentation includes PE, cardiac arrhythmia, URI. Our workup consisted of ordering/reviewing CBC, CMP, troponin, D-dimer, hCG, respiratory panel, and UA with culture. We will also order an EKG and CTA chest. External records reviewed: Previous hospital admission records and outpatient office visits Diagnostics interpreted by me: Labs, imaging studies, and EKG Discussions with other clinicians: ER attending Dr. Gao Chronic conditions impacting care: DM T1 Social determinants of health affecting care: N/A ED Medications managed: Medications - No data to display Prescription drugs considered: N/A PROCEDURES: Unless otherwise noted below, none Procedures FINAL IMPRESSION No diagnosis found. DISPOSITION Patient is an 17-year-old female who is G1, P0 approximately 12 weeks presenting with shortness of breath. Workup in the ED reveals D-dimer of 0.98, Hb 11.7, NA 133, BS 120. Her UA was significant for bacteria and leukocyte esterase however this was likely contaminated given moderate squamous epithelial cells. When trying to score patient's risk for PE she is on the cusp according to years criteria. We discussed the risk and benefits of pursuing imaging studies including CT and x-ray with the patient. Explained to the patient that the risk of missing a PE on imaging studies could be consequential to her health down the line if she were to have another episode. We also explained to her the risk associated with radiation exposure to the fetus even with appropriate protections during imaging studies. We believed it was in her best interest to pursue the imaging study and patient was agreeable to our plan and pursued CTA. Her CTA was negative and the etiology of her shortness of breath remains unclear. There is potential that it could be due to blood vessel compression from heruterus while she is laying supine causing decreased blood flow to return to her heart which could be causing her shortness of breath. Patient is advised to follow-up with her PCP/patient registration manager outpatient and if she starts experiencing worsening symptoms to return back to the ER soon as possible. PATIENT REFERRED TO: No follow-up provider specified. DISCHARGE MEDICATIONS: New Prescriptions No medications on file (Comment: Please note this report has been produced using speech recognition software and may contain errors related to that system including errors in grammar, punctuation, and spelling, as well as words and phrases that may be inappropriate. If there are any questions or concerns please feel freeto contact the dictating provider for clarification.) Jaiden Carpenter DO (electronically signed) Emergency Medicine Provider Jadien Carpenter DO Resident 09/06/232004 * Nguyen Gao MD - 09/06/2023 2:57 PM EDT Emergency Department Encounter [facility] EMERGENCY DEPT Patient: Catalina Capellan : 2005 Date of Evaluation: 09/06/2023 ED Supervising Physician: NGUYEN GAO MD I personally saw Catalina Capellan and made/approved the management plan and take responsibility for the patient management. In brief, Catalina Capellan is a 17 y.o. that presents to the emergency department for evaluation of shortness of breath for 1 day. Patient is over 12 weeks and was having some tightness shortness of breath sensation in the chest. Denies any pain with deep inspiration. Denies any leg swelling. Patient has been having some cramps or pain in the calfs right greater than left. Patient has feltpalpitations and at times felt heart racing. Denies any known fever. Patient does have a little bitof a cough but is not coughing up any blood. Focused exam: General appearance: Well-appearing, no acute distress. Psych: Awake alert and oriented 3. Pleasant and cooperative. Skin: Warm and dry. Neck: Supple. Cardiovascular: Mild tachycardia Lungs: Clear to auscultation bilaterally, no accessory muscle use, tachypnea, or retractions. Abdomen: Soft, nontender, and nondistended, no rebound, rigidity, or guarding, positive bowel sounds 4 quadrants. Extremities: Warm and well perfused. NROM and SILT throughout upper and lower extermities. No leg swelling but there is mild right calf tenderness Brief ED course/MDM: Patient presents emergency department for evaluation of shortness of breath and . Patient's vital signs are unremarkable with mild tachycardia and a low-grade temperature of 99.2. Patient does not have any pleuritic symptoms however does have right calf pain on exam. Unable to utilize the years criteria to rule out PE due to the calf pain. EMERGENCY DEPARTMENT COURSE and DIFFERENTIAL DIAGNOSIS/MDM: Vitals: Vitals: 09/06/23 1511 BP: 122/79 Pulse: 104 Resp: 16 Temp: 37.3 C (99.2 F) TempSrc: Temporal SpO2: 97% Weight: 65.8 kg (145 lb) All diagnostic, treatment, and disposition decisions were made by myself in conjunction with the TANIA/Resident. I also supervised guerrier portions of any procedures performed by the TANIA/Resident. For all further details of the patient's emergency department visit, please see their documentation. This will serve as my supervisory note and shared attestation. I did perform a substantiative portion of the visit including all aspects of the medical decision making. (Please note that portions of this note may have been completed with a voice recognition program. Efforts were made to edit the dictations but occasionally words are mis-transcribed.) NGUYEN GAO MD [facility] Nguyen Gao MD 09/06/231812 documented in this [facility]03-10-2024 Emergency department Note* Martha Cutler RN - 09/06/2023 9:03 PM EDT Patient resting in bed, respirations even and unlabored. Call light within reach. Visitor at bedside. Martha Cutler RN 09/06/232102 [id number] Discharge instructions* Discharge Instructions* Jaiden Carpenter DO - 09/06/2023 8:01 PM EDT You presented today to the ER for shortness of breath that have been going on intermittently since the day prior. Your workup in the ER was significant for a D-dimer of 0.98. After thorough discussion with you including the risk and benefits of pursuing further imaging studies we did a CT angiogramof your chest to evaluate for PE which was negative. We currently have no clear understanding of what is causing her shortness of breath. It could likely be associated with your gravid uterus compressing your blood vessels in your lower abdomen and thus decreasing blood flow to your heart and lungswhich could be causing your symptoms. We recommend that you follow-up with your PCP and patient registration manager for further evaluation of your symptoms. In the interim if you experience worsening shortness of breath, chest pain, or vision changes we strongly recommend you come back to the ER for further evaluation. documented in this [facility]03-10-2024 Emergency department Note* Martha Cutler RN - 09/06/2023 7:51 PM EDT Patient resting in bed, respirations even and unlabored. Call light within reach. Visitor at bedside. Martha Cutler RN 09/06/231950 [facility] [id number] Emergency department Note* Martha Cutler RN - 09/06/2023 7:25 PM EDT Per JES Agarwal, patient refusing BGT rechecked d/t not wanting finger poked. Martha Cutler RN 09/06/232116 [facility] [id number] Emergency department Note* Martha Cutler RN - 09/06/2023 7:24 PM EDT Report from JES Agarwal. Martha Cutler RN 09/06/231923 [facility] [id number] Note1. Motion and streak artifact limit evaluation to some extent. No CTA evidence of acute pulmonary embolism to the level of the segmental and subsegmental branches. 2. No consolidation or pleural effusions. Report Dictated on Electronically Signed By: Ajay Shen MD Electronically Signed Date/Time: 09/06/2023 6:56 PM EDT [facility]03-10-2024 Emergency department Note* Roland Mas RN - 09/06/2023 6:07 PM EDT Pt was given crackers and a coke to help with low BGT. Roland Mas RN 09/06/231856 [facility] [id number] Physician Emergency department Note* AMAN Dickey CNP - 09/06/2023 2:57 PM EDT I saw this patient very briefly as the Provider in Triage to establish acuity and develop basic plan of care. A more thorough history and physical exam will be documented by treating physician and/orAPP in the emergency department. History: Patient is an 17-year-old female, G1, P0 approximately 12 [facility], shortness of breath that started yesterday, endorses cough, denies any fevers but has not taken her temperature. Denies any exposure to sick contacts, does endorse leg cramping bilaterally. Denies any history of PE or DVT. Denies any hemoptysis. Does report nausea, vomiting. Has had an ultrasound with this that does verify intrauterine . GENERAL: The patient appears nourished and normally developed. Vital signs as documented. EYES: Head exam is unremarkable. No scleral icterus or orbital trauma noted. HEENT: Mucous membranes moist. Nares patent without copious rhinorrhea. No enlarged lymphadenopathy. LUNGS: Lungs are clear to auscultation, without any respiratory distress. CARDIAC: Rhythm is regular. No dysrythmias or murmurs. ABDOMEN: Nontender with no obvious masses, and no peritoneal signs. MUSCULOSKELETAL: Non edematous, with no obvious deformities. SKIN: Good color, with no significant rashes. No pallor. NEURO: No obvious neurological deficits, normal sensation and strength bilaterally. patient able toambulate Plan: -IV, lab work, EKG, discussed imaging Patient awaiting room in main ED, see ED provider note for full H and P, evaluation, disposition. Comment: Please note this report has been produced using speech recognition software and may contain errors related to that system including errors in grammar, punctuation, and spelling, as well as words and phrases that may be inappropriate. If there are any questions or concerns please feel free to contact the dictating provider for clarification. AMAN Dickey CNP 09/06/23 1511 [employer] Phone: [phone]) 974-275103-10-2024 Physician Emergency department Note* Jaiden Carpenter DO - 09/06/2023 2:57 PM EDT EMERGENCY DEPARTMENT ENCOUNTER Pt Name: Catalina Capellan Birthdate 2005 Date of evaluation: 09/06/2023 ED Provider: Jaiden Carpenter DO CHIEF COMPLAINT Chief Complaint Patient presents with Shortness of Breath Patient is 12 weeks , reports worsening shortness of breath, and palpitations x3 days as well as migraines HISTORY OF PRESENT ILLNESS (Location/Symptom, Timing/Onset, Context/Setting, Quality, Duration, Modifying Factors, Severity) Note limiting factors. I wore appropriate PPE for the entirety of this encounter. HPI Catalina Cpaellan is a 17 y.o. female who presents to the emergency department for shortness of breath Patient is G1, P0 approximately 12 weeks presenting with chest pain and shortness of breath that started yesterday. Patient has a PMH of DM T1, anxiety, and depression. Patient states her symptoms started around 8 AM yesterday with shortness of breath. The symptoms were sudden onset however they dissipated throughout the day and she was able to work without complication. Last night however, she woke up with another episode of shortness of breath with headache. Shestates the headache feels like a migraine and describes it as a banding distribution around her head that is squeezing with associated photophobia and sensitivity to sound. She denies any chest pain,pleurisy, hemoptysis, nausea, and vomiting. Patient was previously hospitalized in July for hypoglycemia in the setting of her T1DM, otherwise her has been uncomplicated. Nursing Notes were reviewed. Limitations to history: None Outside historians: None REVIEW OF SYSTEMS Review of Systems Constitutional: Negative for chills, fatigue and fever. Respiratory: Positive for shortness of breath. Negative for cough and chest tightness. Cardiovascular: Negative for chest pain. Gastrointestinal: Negative for abdominal pain, nausea and vomiting. Genitourinary: Negative for dysuria, flank pain and urgency. Neurological: Positive for headaches. Negative for dizziness and light-headedness. PAST MEDICAL HISTORY Past Medical History: Diagnosis Date Anxiety Depression Diabetes mellitus affecting Kidney stone SURGICAL HISTORY No past surgical history on file. CURRENT MEDICATIONS Previous Medications CETIRIZINE (ZYRTEC) 10 MG TABLET Take 10 mg by mouth daily. INSULIN LISPRO (HUMALOG) 100 UNIT/ML PATIENT SUPPLIED PUMP Inject under the skin continuous. VIT-FE FUMARATE-FA ( 1+1 PO) Take 1 tablet by mouth daily. ALLERGIES Patient has no known allergies. FAMILY HISTORY No family history on file. SOCIAL HISTORY Social History Socioeconomic History Marital status: Single Tobacco Use Smoking status: Never Substance and Sexual Activity Alcohol use: Never Drug use: Never Sexual activity: Yes Social Determinants of Health Transportation Needs: No Transportation Needs (08/09/2023) PRAPARE - Transportation Lack of Transportation (Medical): No Lack of Transportation (Non-Medical): No Intimate Partner Violence: Not At Risk (08/09/2023) Humiliation, Afraid, Rape, and Kick questionnaire Fear of Current or Ex-Partner: No Emotionally Abused: No Physically Abused: No Sexually Abused: No Housing Stability: Low Risk (08/09/2023) Housing Stability Vital Sign Unable to Pay for Housing in the Last Year: No Number of Places Lived in the Last Year: 1 Unstable Housing in the Last Year: No SCREENINGS PHYSICAL EXAM ED Triage Vitals [09/06/23 1511] Temp Heart Rate Resp BP 37.3 C (99.2 F) 104 16 122/79 SpO2 Temp Source Heart Rate Source Patient Position 97 % Temporal Monitor -- BP Location FiO2 (%) -- -- Physical Exam Constitutional: General: She is not in acute distress. Appearance: Normal appearance. She is not ill-appearing or toxic-appearing. HENT: Head: Normocephalic and atraumatic. Cardiovascular: Rate and Rhythm: Normal rate and regular rhythm. Pulses: Normal pulses. Heart sounds: Normal heart sounds. No murmur heard. No gallop. Pulmonary: Effort: Pulmonary effort is normal. Breath sounds: Normal breath sounds. No wheezing, rhonchi or rales. Abdominal: General: Abdomen is flat. Bowel sounds are normal. There is no distension. Palpations: Abdomen is soft. Musculoskeletal: Right lower leg: No edema. Left lower leg: No edema. Skin: General: Skin is warm and dry. Neurological: General: No focal deficit present. Mental Status: She is alert and oriented to person, place, and time. Mental status is at baseline. Psychiatric: Mood and Affect: Mood normal. Behavior: Behavior normal. Thought Content: Thought content normal. DIAGNOSTIC RESULTS RADIOLOGY (Per Emergency Physician): Interpretation per the Radiologist below, if available at the time of this note: No orders to display LABS: Labs Reviewed SARS-COV-2, FLU A/B, AND RSV COMBO D-DIMER,QUANTITATIVE HCG QUANTITATIVE BLOOD TROPONIN, WITH SERIAL REFLEX COMPREHENSIVE METABOLIC PANEL CBC WITH AUTO DIFFERENTIAL COMPLETE URINALYSIS WITH REFLEX TO CULTURE Narrative: The following orders were created for panel order Urinalysis complete with reflex to Culture. Procedure Abnormality Status --------- ------ Complete Urinalysis[[id number]] Please view results for these tests on the individual orders. COMPLETE URINALYSIS All other labs were within normal range or not returned as of this dictation. EMERGENCY DEPARTMENT COURSE and DIFFERENTIAL DIAGNOSIS/MDM: Vitals: Vitals: 09/06/23 1511 BP: 122/79 Pulse: 104 Resp: 16 Temp: 37.3 C (99.2 F) TempSrc: Temporal SpO2: 97% Weight: 65.8 kg (145 lb) The patient presented with a chief complaint of shortness of breath. The differential diagnosis associated with this patient's presentation includes PE, cardiac arrhythmia, URI. Our workup consisted of ordering/reviewing CBC, CMP, troponin, D-dimer, hCG, respiratory panel, and UA with culture. We will also order an EKG and CTA chest. External records reviewed: Previous hospital admission records and outpatient office visits Diagnostics interpreted by me: Labs, imaging studies, and EKG Discussions with other clinicians: ER attending Dr. Gao Chronic conditions impacting care: DM T1 Social determinants of health affecting care: N/A ED Medications managed: Medications - No data to display Prescription drugs considered: N/A PROCEDURES: Unless otherwise noted below, none Procedures FINAL IMPRESSION No diagnosis found. DISPOSITION Patient is an 17-year-old female who is G1, P0 approximately 12 weeks presenting with shortness of breath. Workup in the ED reveals D-dimer of 0.98, Hb 11.7, NA 133, BS 120. Her UA was significant for bacteria and leukocyte esterase however this was likely contaminated given moderate squamous epithelial cells. When trying to score patient's risk for PE she is on the cusp according to years criteria. We discussed the risk and benefits of pursuing imaging studies including CT and x-ray with the patient. Explained to the patient that the risk of missing a PE on imaging studies could be consequential to her health down the line if she were to have another episode. We also explained to her the risk associated with radiation exposure to the fetus even with appropriate protections during imaging studies. We believed it was in her best interest to pursue the imaging study and patient was agreeable to our plan and pursued CTA. Her CTA was negative and the etiology of her shortness of breath remains unclear. There is potential that it could be due to blood vessel compression from heruterus while she is laying supine causing decreased blood flow to return to her heart which could be causing her shortness of breath. Patient is advised to follow-up with her PCP/patient registration manager outpatient and if she starts experiencing worsening symptoms to return back to the ER soon as possible. PATIENT REFERRED TO: No follow-up provider specified. DISCHARGE MEDICATIONS: New Prescriptions No medications on file (Comment: Please note this report has been produced using speech recognition software and may contain errors related to that system including errors in grammar, punctuation, and spelling, as well as words and phrases that may be inappropriate. If there are any questions or concerns please feel freeto contact the dictating provider for clarification.) Jaiden Carpenter DO (electronically signed) Emergency Medicine Provider Jaiden Carpenter DO Resident 09/06/232004 [employer] Phone: [phone] 345-358903-10-2024 Physician Emergency department Note* Nguyen Gao MD - 09/06/2023 2:57 PM EDT Emergency Department Encounter [facility] EMERGENCY DEPT Patient: Catalina Capellan : 2005 Date of Evaluation: 09/06/2023 ED Supervising Physician: NGUYEN GAO MD I personally saw Catalina Capellan and made/approved the management plan and take responsibility for the patient management. In brief, Catalina Capellan is a 17 y.o. that presents to the emergency department for evaluation of shortness of breath for 1 day. Patient is over 12 weeks and was having some tightness shortness of breath sensation in the chest. Denies any pain with deep inspiration. Denies any leg swelling. Patient has been having some cramps or pain in the calfs right greater than left. Patient has feltpalpitations and at times felt heart racing. Denies any known fever. Patient does have a little bitof a cough but is not coughing up any blood. Focused exam: General appearance: Well-appearing, no acute distress. Psych: Awake alert and oriented 3. Pleasant and cooperative. Skin: Warm and dry. Neck: Supple. Cardiovascular: Mild tachycardia Lungs: Clear to auscultation bilaterally, no accessory muscle use, tachypnea, or retractions. Abdomen: Soft, nontender, and nondistended, no rebound, rigidity, or guarding, positive bowel sounds 4 quadrants. Extremities: Warm and well perfused. NROM and SILT throughout upper and lower extermities. No leg swelling but there is mild right calf tenderness Brief ED course/MDM: Patient presents emergency department for evaluation of shortness of breath and . Patient's vital signs are unremarkable with mild tachycardia and a low-grade temperature of 99.2. Patient does not have any pleuritic symptoms however does have right calf pain on exam. Unable to utilize the years criteria to rule out PE due to the calf pain. EMERGENCY DEPARTMENT COURSE and DIFFERENTIAL DIAGNOSIS/MDM: Vitals: Vitals: 09/06/23 1511 BP: 122/79 Pulse: 104 Resp: 16 Temp: 37.3 C (99.2 F) TempSrc: Temporal SpO2: 97% Weight: 65.8 kg (145 lb) All diagnostic, treatment, and disposition decisions were made by myself in conjunction with the TANIA/Resident. I also supervised guerrier portions of any procedures performed by the TANIA/Resident. For all further details of the patient's emergency department visit, please see their documentation. This will serve as my supervisory note and shared attestation. I did perform a substantiative portion of the visit including all aspects of the medical decision making. (Please note that portions of this note may have been completed with a voice recognition program. Efforts were made to edit the dictations but occasionally words are mis-transcribed.) NGUYEN GAO MD [employer] Nguyen Gao MD 09/06/23 [address] [employer] Phone: [phone] Miscellaneous Notes* Telephone Encounter - Martha Weems RN - 08/14/2023 9:31 AM EST 1st risk assessment form submitted 08/14/23 Martha Weems RN documented [facility] Miscellaneous Notes* Telephone Encounter - Nely Vila - 08/14/2023 8:10 AM EST [facility]erral to [facility] received. Sent to [place] team to assist with scheduling. documented in this encounterW[facility]02-15-2024 History of Present illness Narrative* Roland Toro APRN.COOPERATIVE MANAGER - 08/13/2023 2:40 PM EST Commercial Maintenance Technician offered: Patient declines. INITIAL OB ASSESSMENT HPI: Catalina is a 17 year old White here to establish Obstetrical Care. Patient's last menstrual period was 06/08/2023. from OB Dating Form. Do you have regular periods/menstrual cycles? No was planned Complaints: Abdominal pain, Chest pain, Shortness of breath, Heart racing or skipping beats OB History T0 L0 SAB0 IAB0 Ectopic0 Multiple0 Live Births0 How many pregnancies have you had before? 0 Have you had a prior lopez between 20w and 36w6d? No Did you present in active spontaneous labor or have ruptured membranes, or advanced cervical dilation (greater than or equal to 4 cm) or effacement? No Did you have a previous baby with a GBS Infection? No Please select all that apply for any prior : N/A Did you have a partner with Herpes? No Prior : never History of 4th degree laceration: NA Patient's Risk Screening for delivery: MEDICAL/PSYCHOSOCIAL HISTORY: History of hemorrhage or bleeding concerns: No Thyroid Disease: No History of chronic hypertension: No History of pre-existing diabetes: Yes BMI 24.60 kg/(m^2) History of abnormal pap: No Prior treatment for cervical dysplasia: none. History of STDs: None Tobacco use: No E-Cigarette/Vaping Use: Yes Caffeine use: Yes, rarely Drug use: No Alcohol use: No Multivitamin with Folic acid: Yes Alevism or heritage: No Would refuse blood transfusion if medically necessary: No No results found for: ABORHD Social Needs: How often does this describe you? I don't have enough money to pay my bills: Never Within the past 12 months, have you worried that your food would run out before you had money to buy more? Never In the past 12 months, has lack of reliable transportation kept you from going to medical appointments or work, or from getting things needed for daily living? Never In the past 12 months, have you had any concerns about having a place to live, or about the condition or quality of your housing? Never Would you like more information on any of the following (please check all that apply)? Centering (group care classes), Senior Marketing Analyst, and Customer Contact Sales Associate care Social History: Do you have any history of depression, anxiety, PTSD, or other mood problems? Yes, used to take medications, have been off of them for about a year or so. Do you have a history of abuse or trauma that may impact your experience? No Are you currently employed? Yes Depression/Anxiety Screening: denies symptoms of depression. OB Depression and Anxiety Screening- This Encounter (since 08/12/2023) Over the past 2 weeks have you felt down, depressed, or hopeless? Negative Over the past two weeks, have you felt little interest or pleasure in doing things? Negative Feeling nervous, anxious or on edge 0-Not at all Not being able to stop or control worrying 0-Not al all Anxiety Pre-Screening Total (If >/= 3 additional questions will be reviewed) 0 ACOG Recommended Screening: Screening for early gestational diabetes testing: Criteria for early testing requires elevated BMI plus one other risk factor: BMI 24.60 kg/(m^2) (risk factor if > than 25 or 23 in Americans) Additional risk factors: Other clinical conditions associated with insulin resistance (eg, prepregnancy body mass index greater than 40 kg/m2, acanthosis nigricans) She does meet ACOG criteria for early gestational DM screening. Screening for low dose aspirin use for the prevention of pre-eclampsia: Low dose aspirin should be considered if the patient has one high or two moderate risk factors: High risk factors: Autoimmune disease (e.g. systemic lupus erythematosus, anti- phospholipid antibody syndrome) Moderate risk ractors: Nulliparity She does not meet criteria for low dose ASA Marital Status:Co-habitating Partner: Name: Kevin Age: 20 Occupation: [employer] Gender: Male History of STDs: None PAST MEDICAL HISTORY Diagnosis Date Constipated Eczema Type 1 diabetes (HCC) PAST SURGICAL HISTORY Procedure Laterality Date CYSTOSCOPY,INSERT URETHRAL STENT EGD LITHROTRIPSY Current Outpatient Medications Medication Sig Dispense Refill Cetirizine (ZYRTEC) 10 mg cap Take by mouth. metoclopramide HCl (REGLAN) 10 mg tablet TAKE 1 TABLET BY MOUTH FOUR TIMES DAILY WITH MEALS AND AT NIGHT PNV no.95/ferrous fum/folic ac ( ORAL) Take by mouth. insulin lispro (HUMALOG KWIKPEN) 100 unit/mL Inject up to 50units SQ daily as directed based on IC ratio and correction factor OMNIPOD 5 G6 INTRO KIT, GEN 5, crtg as directed. DEXCOM G6 SENSOR leny Use as directed. Change sensor every 10 days. alcohol swabs Use as directed to test metered glucose and administer insulin. ONETOUCH VERIO TEST STRIPS test strip Use as directed to test metered glucose 6- 8 times per day ONETOUCH VERIO FLEX METER Use as directed to test metered glucose LANTUS SOLOSTAR U-100 INSULIN 100 unit/mL (3 mL) INJECT 30 UNITS SUBCUTANEOUSLY at night DIRECTED (subject to change) (Patient not taking: Reported on 08/13/2023) ONETOUCH DELICA PLUS LANCET 33 gauge Use as directed to test metered glucose 6-8 times per day UNIFINE PENTIPS PLUS 32 gauge x 5/32 Use as directed to administer insulin 4-6 times per day. fluconazole (DIFLUCAN) 150 mg tablet Take 1 tablet by mouth once daily for 1 day. 1 tablet 0 fluconazole (DIFLUCAN) 150 mg tablet Take 1 tablet by mouth one time only for 1 dose. 1 tablet 0 triamcinolone acetonide (KENALOG) 0.1 % ointment Apply to affected area twice daily. For up to 2 weeks (Patient not taking: Reported on 04/15/2023) 30 g 0 LIDOCAINE VISCOUS 2 % solution Take 5-10 mL by mouth three times daily as needed. (Patient not taking: Reported on 07/30/2022) 100 mL 2 FLUoxetine (PROZAC) 20 mg capsule Take 20 mg by mouth. (Patient not taking: Reported on 04/08/2022) loratadine (CLARITIN) 10 mg tablet Take 10 mg by mouth. (Patient not taking: Reported on 08/13/2023) fluticasone (FLONASE) 50 mcg/actuation nasal spray Use 1 [place] in the nose. (Patient not taking: Reported on 08/02/2021 ) No current facility-administered medications for this visit. Allergies As of Date: 08/13/2023 (No Known Allergies) Fully Assessed 08/13/2023 Does patient have penicillin allergy: No REVIEW OF SYSTEMS: GENERAL: Negative for: Fever or Chills HEENT: Negative for: Headache, Impaired Vision, Ringing in Ears, Nosebleeds NECK: Negative for: Swelling, Pain, Stiffness RESPIRATORY: Negative for: Cough, Wheezing + intermittent shortness of breath GASTROINTESTINAL: Negative for: Diarrhea, Blood in stool, + constipation, heartburn, and nausea MUSCULOSKELETAL: Negative for: Muscle or joint pain, stiffness, Joint swelling NEUROLOGIC/PSYCHIATRIC: Negative for: Weakness, Paralysis, Numbness, Tingling, Tremor, Anxiety, Depression, Memory loss SKIN: Negative for: Rash, Itching GENITOURINARY: Negative for: vaginal itching, vaginal discharge, hematuria or dysuria PHYSICAL EXAM: BP 110/78 Ht 5' 6 (1.68m) Wt 152 lb 6.6 oz (69.1kg) LMP 06/08/2023 BMI 24.61 kg/(m^2). GENERAL: pleasant in no apparent distress DERMATOLOGY: Normal, without lesions, non-icteric, and non-hirsute NECK: Supple, full range of motion, no adenopathy, and thyroid normal CHEST: Normal inspiratory effort BREAST: soft, non-tender, symmetric, no dominant mass, normal nipple-areolar complex, no lymphadenopathy, and no nipple discharge ABDOMEN: soft, non-tender, and no masses. Negative for guarding or rebound tenderness. Negative foracute abdomen. NEURO: alert and oriented x3,exam grossly non-focal PELVIS: External genitalia normal without lesions. Perineal body intact. No vaginal or cervical lesions. Cervix closed. Uterus 9 week size. No adnexal masses or tenderness. + thick white discharge Clinical Pelvimetry: Pelvimetry clinically assessed as adequate Limited OB ultrasound exam: positive cardiac activity ASSESSMENT: 17 year old at 9w3d wks gestational age PLAN: 1) Patient oriented to practice. Patient given new OB orientation folder. Discussed nutrition, folic acid supplementation, dietary guidelines, exercise, smoking, alcohol, caffeine, and drug use. Discussed gestational weight gain guidelines. Discussed routine OB labs including STD/HIV. Discussed how to access Your guide to a health and the Computer Assistant. Discussed aneuploidy and carrier screening. Regarding aneuploidy screening, nuchal translucency/first trimester early anatomy ultrasound and NIPT were discussed. Regarding carrier screening, the myriad screen was discussed. The risks/benefits and limitations of NIPT/aneuploidy screening were reviewed including the potential for false negative and false positive results. We discussed the availability of professional-society guided carrier screening and reviewed the conditions screened and limitations of screening. The availability of genetic counseling was reviewed. Information on aneuploidy/carrier screening was provided. The patient chooses: Aneuploidy screening: is uncertain. She will call back if she wants to proceed with screening. She does want NT scan. Discussed hemoglobin electrophoresis. Patient: Considering Patient offered option of Virtual Visits. Patient unsure. May consider in future. Reviewed midwifery and roll forming machine set up operator services that are available. ACTIVE PROBLEM LIST Encounter for Supervision of High Risk in First Trimester, Antepartum - 08/13/2023 Comment: Care Checklist Vaccines: [ ] Flu vaccine [ ] declined [ ] RSV vaccine 32 0/7 - 36 6/7 (Feb - Jul) [ ] declined [ ] COVID vaccine [ ] declined [ ] TDaP 27-36 [ ] declined First trimester: [X] Dating US [X] 1st tri labs [ ] Pap smear [ ] Carrier screening - considering [ ] declined [ ] NIPT screening - considering [ ] declined [ ] First trimester anatomy scan [ ] declined [ ] ASA ppx indicated [ ] not indicated [ ] M Power Consult [ ] not indicated [ ] declined Second trimester: [ ] AFP [ ] declined [ ] Anatomy scan [ ] Mode of Delivery - [ ] Feeding - [ ] Pump ordered [ ] Diabetes screen [ ] CBC, RPR Third trimester (28-30 weeks): [ ] Consent [ ] Contraception - [ ] Gasoline Finisher Third trimester (36-40 weeks): [ ] GBS [ ] Presentation - [ ] Scheduled [ ] yes - Hibiclens, pre-op instructions, CBC, T&S ordered [ ] no [ ] H&P 9 Weeks Gestation of - 08/13/2023 Comment: care and precautions reviewed. Had several ultrasounds in ER, POCUS not done here. Cardiac activity confirmed today, 162. Pre-Existing Type 1 Diabetes Mellitus in in First Trimester - 08/13/2023 Comment: MFM consult placed. Recommend eye exam, EKG, and echo. CMP ordered. Followed by endocrinology out of [facility]. Does not want to transfer care to [facility] for management. Has been experiencing frequent hypoglycemia episodes. Nausea and Vomiting During - 08/13/2023 Comment: Vitamin B6 and Unisom doses reviewed. Taking Reglan - prescribed by ER. Heart Palpitations - 08/13/2023 Comment: Experiences intermittently. Was experiencing prior to as well. CMP ordered. Recommend EKG for T1DM. Shortness of Breath - 08/13/2023 Comment: Experiencing intermittently. To go to ER with chest pain and shortness of breath. Heartburn During in First Trimester - 08/13/2023 Comment: Safe medications list during provided. Can trial Tums or Pepcid. Family History of Down Syndrome - 08/13/2023 Comment: Patient's half brother has Down Syndrome. Asymptomatic Bacteriuria During - 08/13/2023 Comment: Noted in ER. Repeat culture today. No symptoms today. Constipation During in First Trimester - 02/12/2010 Comment: Discussed Colace and increased hydration. Abdominal Pain - 02/12/2010 Comment: 08/13/23 Has been experiencing throughout . No signs of acute abdomen with exam today: negative for rebound tenderness or guarding. Was told in ER this is related to the [facility]. EH Subchorionic Hematoma in First Trimester - 08/13/2023 Comment: Discussed that first trimester bleeding can occur. Precautions reviewed. Vaginal Discharge During in First Trimester - 08/13/2023 Comment: BV/yeast culture done. Kidney Stone Complicating , First Trimester - 08/13/2023 Comment: Possible 3 mm kidney stone noted on ER US of renal and bladder. Urology consult placed. Follow up in 4 weeks for NT scan and OB visit. MFM consult placed. Roland Toro APRN.COOPERATIVE MANAGER * Fazal Sánchez LPN - 08/13/2023 7:16 AM EST OB point of care ultrasound was performed. See imaging tab for details. Fazal Sánchez LPN [facility]* Patient Instructions* Roland Toro APRN.COOPERATIVE MANAGER - 08/13/2023 2:40 PM EST Please select the following link to access the [facility] Your Guide to a Healthy . [email or web address] MORNING SICKNESS IN by Cristal Gutierrez M.D. for [employer] As you may already know, morning sickness can often be more appropriately called evening sickness or ofrmw-rcrgtv-yg-the-day sickness. While there are the patrick few, most women (50-90%) experience some degree of nausea, some have vomiting, and a few develop a severe form of vomiting duringpregnancy called hyperemesis gravidarum. What causes the nausea and vomiting of ? We can't explain why some people feel fine and others are green for months. Even the same woman mayfeel vastly different in each . There is some relationship between nausea and the level ofthe hormone hCG. In twin pregnancies, and in other situations where the hCG is greater than expected, nausea and vomiting tend to be worse. In a destined for miscarriage, hCG levels tend to be low, and nausea is often less severe. This being said, a lack of nausea doesn't guarantee that the is destined for miscarriage. The fact that nausea and vomiting are often signs of a healthy can offer a silver lining in the dark cloud of miserable nausea. How long will the nausea last? Fortunately, for most women, nausea and vomiting are a first trimester event, peaking at week 9-10 and waning by week 14-16. When you are feeling bad the weeks can go by slowly but most momsdo feel tremendously better by the middle of the . Whether morning sickness is a brief experience or lasts through most of the , there are treatments that can make the weeks or months more tolerable. What can you do about it? Diet: See what works for you. Try eating bland dry foods, and avoid fatty or spicy foods. It is okay to eat a less than perfectly balanced diet in the first trimester. Have your liquids separately from dry foods. Try sports drinks, water, clear juices, Kirk-aid, or non-caffeinated tea. Avoid carbonated beverages that fill up your stomach. Try eating lots of little meals. If you tend to feel sick when you first wake up, leave crackers next to the bed for a quick snack before rising. Keeping healthy snacks with you all day to nibble when you feel queasy can sometimes even prevent nausea from starting. vitamins and nausea: Pre-fatmata vitamins can sometimes worsen nausea in . While folate is necessary, especially early in the , it comes as a smaller pill that many people find more tolerable than the complete vitamin pill. Ask your practitioner if it is okay to temporarilyreplace vitamins and iron with just a folate pill if you find a significant worsening in the level of your nausea from the vitamins. Alternative therapies: Acupressure may be used to treat nausea in , and is not known to have any risks for the fetus. Wristbands (marketed for seasickness) that put pressure on an acupressure point at the wrist are often available at drugstores or travel stores. Edgar root is used for nausea in many traditional cultures. Some women take fresh grated edgar or edgar tablets. It is possible that the pill form contains other ingredients or contaminants, so you may want to try fresh edgar first. Medications: Emetrol is the only nausea medication approved for use in . It is available over the counter and is soothing to the stomach. A prescription medication called Bendectin was available in the -1979's and was shown to be safe in , but the company stopped marketing it in the [place] due to the costs of liability coverage. Bendectin contained 10 milligrams of vitamin B6 and 10 milligrams of Doxylamine. Two tablets were given at bedtime and a total of up to 4 tablets could be used in a 24-hour period. Interestingly, Unisom , which contains a higher dose (25 mg.) of the same medication, Doxylamine, is currently marketed as an irqy-mkp-zkzujnf sleeping pill. Ask your practitioner if creating a vitamin B6/Doxylaminecombination with vxax-hpp-uqwjadp medications would be safe for you. Prescription medications like Compazine and Phenergan can be used if the benefits outweigh possiblerisks, but these have not been clearly shown to be safe in . Zofran , an expensive anti-nausea medication often used to treat nausea from chemotherapy, can also be used. Can I throw up so much it harms the baby? The act of vomiting cannot hurt your fetus, which is protected inside the uterus. If you get dehydrated or develop a metabolic imbalance, this can be unhealthy. As long as you can keep down liquids, you and your baby will generally do all right. Eat when you feel able. If you are unable to keep anyt crystal down, or if you notice potential signs of dehydration such as lightheadedness, or concentratedand/or infrequent urination, call your practitioner. Some women need brief hospital admission for intravenous fluids and anti-nausea medications if their condition becomes severe. This severe form ofnausea and vomiting is called Hyperemesis Gravidarum. As with many symptoms of , remind yourself that this, too, shall pass, and you'll have a wonderful baby to show for it! TREATMENT OPTIONS, SHORT VERSION: Frequent small meals Hydrate throughout day [employer] wrist pressure point applicators Edgar root (powdered, in capsules) 250mg four times a day Vitamin B6 25 mg tablet three times a day Also may be taken with half a tablet of Unisom three times a day (Doxylamine 12.5 mg) If severe (weight loss, dehydration), call us and come in for IV hydration and possible medication in the form of injections. Prescription medications such as Phenergan, Compazine, Reglan documented [facility] this [facility] Hospital course Narrative * Nayeli Estrada MD - 08/09/2023 6:09 PM EST Images from the original note were not included. Department of Obstetrics and Gynecology [facility] Discharge Summary Admission on 08/09/2023 2:16 PM Catalina Capellan is a 17 y.o. at 8w3d who was admitted to [facility] for hypoglycemia in the setting of T1DM. She reported N/V/D a few days before arrival and was previously not tolerating PO. On arrival, patient was asymptomatic and able to tolerate PO. Urine ketones negative. Labs including CBC, CMP, and thyroid studies wnl other than mild hypokalemia. She was given 2 L NS and potassium was repleted. BGT's remained stable during admission. She was deemed stable for discharge and will follow up in the office this week. She has a prescription for reglan waiting to be picked up from her pharmacy.Given return precautions. Meds: Current Facility-Administered Medications: acetaminophen (Tylenol) tablet 650 mg, 650 mg, Oral, q4h PRN, Francia Gemma, DO ondansetron ODT (Zofran-ODT) disintegrating tablet 4 mg, 4 mg, Oral, q8h PRN OR ondansetron (Zofran) injection 4 mg, 4 mg, IntraVENous, q6h PRN, Francia Gemma, DO potassium chloride (Klor-Con) packet 20 mEq, 20 mEq, Oral, Once, Nayeli Estrada MD vitamin tablet, 1 tablet, Oral, Daily, Francia Gemma, DO sodium chloride 0.9 % bolus 1,000 mL, 1,000 mL, IntraVENous, q1h, Nayeli Estrada MD, Last Rate: 1,000 mL/hr at 08/09/23 1700, 1,000 mL at 08/09/23 1700 sodium chloride 0.9 % infusion, 5-250 mL/hr, IntraVENous, PRN, Francia Gemma, DO sodium chloride 0.9% (NS) flush 10 mL, 10 mL, IntraVENous, 2 times per day, Francia Gemma, DO sodium chloride 0.9% (NS) flush 10 mL, 10 mL, IntraVENous, PRN, Francia Gemma, DO Discharge to: Home Discharge date: 08/09/2023 Discharge Dx: T1DM Follow up appointment with your doctor/machine operators - Keep next scheduled appointment Activity - Normal Activity Call your doctor/machine operators if you have: - leaking fluid - vaginal bleeding - regular contractions: More than 6 contractions in one hour - decreased movement - worsening abdominal (belly) pain - headache, blurry vision, increased swelling, upper abdominal pain Nayeli Estrada MD 08/09/2023 6:09 PM Associated attestation - Hugo Rodriguez MD - 08/09/2023 8:58 PM EST Maternal Medicine attending attestation: I reviewed and agree with the care provided by the resident during or immediately following the visit including the patient's medical history, the resident's findings in the physical exam, patient's diagnosis and treatment plan. She has follow up to establish care for this week in our office documented in this [facility]02-11-2024 Hospital Discharge instructions* Discharge Instructions* Nayeli sEtrada MD - 08/09/2023 6:03 PM EST Follow up appointment with your doctor/machine operators - Keep next scheduled appointment Activity - Normal Activity Call your doctor/machine operators if you have: - leaking fluid - vaginal bleeding - regular contractions: More than 6 contractions in one hour - decreased movement - worsening abdominal (belly) pain - headache, blurry vision, increased swelling, upper abdominal pain If you are going home with contractions that are uncomfortable/painful- we recommend these coping strategies: rhythmic breathing, hydrotherapy, imagery or visualization, gentle massage, walking and changing your position. Treatment Verification: Catalina Capellan was assessed on Labor and Delivery for a related visit on 08/09/23 . Nayeli Estrada MD [facility] documented in this [facility]02-11-2024 History and physical note* Nayeli Estrada MD - 08/09/2023 5:50 PM EST Department of Obstetrics and Gynecology Labor and Delivery CHIEF COMPLAINT: Sent as direct admission for hypoglycemia HISTORY OF PRESENT ILLNESS: The patient is a 17 y.o. 8w3d. OB History 2 Para Term AB 1 Living SAB 1 IAB Ectopic Multiple Live Births Patient presents with a chief complaint as above. Patient approx 8 wks with T1DM. She has a CGM and Omnipod insulin pump in place. She reported hypoglycemia at home in the setting of N/V/D of over the last week. However, upon admission she was noted to be asymptomatic and feelingwell. BGT's well controlled and patient able to tolerate food since last night. No currently complaints. Estimated Due Date: Estimated Date of Delivery: 03/17/24 PAST MEDICAL HISTORY: Past Medical History: Diagnosis Date Anxiety Depression Diabetes mellitus affecting Kidney stone PAST SURGICAL HISTORY: History reviewed. No pertinent surgical history. SOCIAL HISTORY: reports that she has never smoked. She does not have any smokeless tobacco history on file. She reports that she does not drink alcohol and does not use drugs. MEDICATIONS: Prior to Admission medications Medication Sig Start Date End Date Taking? Authorizing Provider cetirizine (ZyrTEC) 10 MG tablet Take 10 mg by mouth daily. Yes Historical Provider, insulin lispro (HumaLOG) 100 UNIT/ML patient supplied pump Inject under the skin continuous. Yes Historical Provider, Vit-Fe Fumarate-FA ( 1+1 PO) Take 1 tablet by mouth daily. Yes Historical Provider, CARE: Complicated by: T1DM Teen Hx kidney stones REVIEW OF SYSTEMS: Pertinent items are noted in HPI. APPEARANCE: Pain: No PHYSICAL EXAM: Vital Signs: VS wnl-reviewed/Respirations normal effort Vitals: 08/09/23 1448 Weight: 150 lb (68 kg) Height: 5' 6 (1.676 m) Physical Exam: Gen: NAD, well appearing HEENT: Normocephalic, Atraumatic, EOMI Resp: Non-labored breathing, no respiratory distress Abd: soft, NTND, no rebound, no guarding Ext: No LE edema, no calf tenderness or swelling GENERAL LABS: Recent Results (from the past 24 hour(s)) POCT glucose meter Collection Time: 08/09/23 3:19 PM Result Value Ref Range Glucose 71 70 - 100 mg/dL Type and screen Collection Time: 08/09/23 3:30 PM Result Value Ref Range ABO Grouping O Antibody Screen NEG Rh Type POS CBC Collection Time: 08/09/23 3:30 PM Result Value Ref Range Auto WBC 8.2 4.5 - 13.0 10*3/uL RBC 4.40 4.10 - 4.80 10*6/uL Hemoglobin 11.4 (L) 12.0 - 15.0 g/dL Hematocrit 35.3 (L) 37.0 - 46.0 % MCV 80.2 78.0 - 96.0 fL MCH 25.9 (L) 26.0 - 34.0 pg MCHC 32.3 31.0 - 37.0 % RDW 19.2 (H) 11.5 - 14.5 % Platelets 234 150 - 450 10*3/uL MPV 10.1 7.4 - 12.4 fL Comprehensive metabolic panel Collection Time: 08/09/23 3:30 PM Result Value Ref Range SODIUM 133 (L) 135 - 145 mmol/L POTASSIUM 3.3 (L) 3.5 - 5.1 mmol/L CHLORIDE 103 98 - 107 mmol/L CARBON DIOXIDE 22 22 - 30 mmol/L ANION GAP 8 3 - 13 mmol/L UREA NITROGEN 4 (L) 7 - 17 mg/dL CREATININE 0.37 (L) 0.52 - 1.04 mg/dL GLUCOSE 83 70 - 100 mg/dL CALCIUM 8.8 8.4 - 10.4 mg/dL AST (SGOT) 28 15 - 46 U/L ALT 21 0 - 34 U/L ALKALINE PHOSPHATASE 74 38 - 126 U/L ALBUMIN 4.0 3.5 - 5.0 g/dL BILIRUBIN, TOTAL 0.5 0.2 - 1.3 mg/dL TOTAL PROTEIN 7.8 6.3 - 8.2 g/dL eGFR >90.0 >60.0 mL/min/1.73m*2 Beta Hydroxybutyrate Collection Time: 08/09/23 3:30 PM Result Value Ref Range BETA HYDROXYBUTYRATE 1.34 0.20 - 2.81 mg/dL TSH Collection Time: 08/09/23 3:30 PM Result Value Ref Range THYROID STIMULATING HORMONE 0.524 0.465 - 4.680 uIU/mL T4, free Collection Time: 08/09/23 3:30 PM Result Value Ref Range FREE T4 1.42 0.78 - 2.19 ng/dL Confirmatory ABO/Rh Collection Time: 08/09/23 3:30 PM Result Value Ref Range ABO Grouping O Rh Type POS COURSE: T1DM - Reported n/v inability to tolerate PO at OSH, sent in for direct admission - Labs obtained on arrival including urine, CBC, CMP, thyroid studies, and BHB - Urine ketones negative and labs wnl except hypokalemia below - Patient tolerating PO and declined antiemetics - Given 2 L NS - BGT 71 consistent with CGM in place - Currently on auto mode with follow up in office this week Hypokalemia - K 3.3 on arrival - Repleted with 20 mEq oral K-chlor IMPRESSION: Hypoglycemia DISCUSSED WITH PNC PROVIDER: Dr. Rodriguez Associated attestation - Hugo Rodriguez MD - 08/09/2023 8:57 PM EST Maternal Medicine attending attestation: I reviewed and agree with the care provided by the resident during or immediately following the visit including the patient's medical history, the resident's findings in the physical exam, patient's diagnosis and treatment plan. [facility] [id number] History and physical note* Nayeli Estrada MD - 08/09/2023 5:50 PM EST Department of Obstetrics and Gynecology Labor and Delivery CHIEF COMPLAINT: Sent as direct admission for hypoglycemia HISTORY OF PRESENT ILLNESS: The patient is a 17 y.o. 8w3d. OB History 2 Para Term AB 1 Living SAB 1 IAB Ectopic Multiple Live Births Patient presents with a chief complaint as above. Patient approx 8 wks with T1DM. She has a CGM and Omnipod insulin pump in place. She reported hypoglycemia at home in the setting of N/V/D of over the last week. However, upon admission she was noted to be asymptomatic and feelingwell. BGT's well controlled and patient able to tolerate food since last night. No currently complaints. Estimated Due Date: Estimated Date of Delivery: 03/17/24 PAST MEDICAL HISTORY: Past Medical History: Diagnosis Date Anxiety Depression Diabetes mellitus affecting Kidney stone PAST SURGICAL HISTORY: History reviewed. No pertinent surgical history. SOCIAL HISTORY: reports that she has never smoked. She does not have any smokeless tobacco history on file. She reports that she does not drink alcohol and does not use drugs. MEDICATIONS: Prior to Admission medications Medication Sig Start Date End Date Taking? Authorizing Provider cetirizine (ZyrTEC) 10 MG tablet Take 10 mg by mouth daily. Yes Historical Provider, insulin lispro (HumaLOG) 100 UNIT/ML patient supplied pump Inject under the skin continuous. Yes Historical Provider, Vit-Fe Fumarate-FA ( 1+1 PO) Take 1 tablet by mouth daily. Yes Historical Provider, CARE: Complicated by: T1DM Teen Hx kidney stones REVIEW OF SYSTEMS: Pertinent items are noted in HPI. APPEARANCE: Pain: No PHYSICAL EXAM: Vital Signs: VS wnl-reviewed/Respirations normal effort Vitals: 08/09/23 1448 Weight: 150 lb (68 kg) Height: 5' 6 (1.676 m) Physical Exam: Gen: NAD, well appearing HEENT: Normocephalic, Atraumatic, EOMI Resp: Non-labored breathing, no respiratory distress Abd: soft, NTND, no rebound, no guarding Ext: No LE edema, no calf tenderness or swelling GENERAL LABS: Recent Results (from the past 24 hour(s)) POCT glucose meter Collection Time: 08/09/23 3:19 PM Result Value Ref Range Glucose 71 70 - 100 mg/dL Type and screen Collection Time: 08/09/23 3:30 PM Result Value Ref Range ABO Grouping O Antibody Screen NEG Rh Type POS CBC Collection Time: 08/09/23 3:30 PM Result Value Ref Range Auto WBC 8.2 4.5 - 13.0 10*3/uL RBC 4.40 4.10 - 4.80 10*6/uL Hemoglobin 11.4 (L) 12.0 - 15.0 g/dL Hematocrit 35.3 (L) 37.0 - 46.0 % MCV 80.2 78.0 - 96.0 fL MCH 25.9 (L) 26.0 - 34.0 pg MCHC 32.3 31.0 - 37.0 % RDW 19.2 (H) 11.5 - 14.5 % Platelets 234 150 - 450 10*3/uL MPV 10.1 7.4 - 12.4 fL Comprehensive metabolic panel Collection Time: 08/09/23 3:30 PM Result Value Ref Range SODIUM 133 (L) 135 - 145 mmol/L POTASSIUM 3.3 (L) 3.5 - 5.1 mmol/L CHLORIDE 103 98 - 107 mmol/L CARBON DIOXIDE 22 22 - 30 mmol/L ANION GAP 8 3 - 13 mmol/L UREA NITROGEN 4 (L) 7 - 17 mg/dL CREATININE 0.37 (L) 0.52 - 1.04 mg/dL GLUCOSE 83 70 - 100 mg/dL CALCIUM 8.8 8.4 - 10.4 mg/dL AST (SGOT) 28 15 - 46 U/L ALT 21 0 - 34 U/L ALKALINE PHOSPHATASE 74 38 - 126 U/L ALBUMIN 4.0 3.5 - 5.0 g/dL BILIRUBIN, TOTAL 0.5 0.2 - 1.3 mg/dL TOTAL PROTEIN 7.8 6.3 - 8.2 g/dL eGFR >90.0 >60.0 mL/min/1.73m*2 Beta Hydroxybutyrate Collection Time: 08/09/23 3:30 PM Result Value Ref Range BETA HYDROXYBUTYRATE 1.34 0.20 - 2.81 mg/dL TSH Collection Time: 08/09/23 3:30 PM Result Value Ref Range THYROID STIMULATING HORMONE 0.524 0.465 - 4.680 uIU/mL T4, free Collection Time: 08/09/23 3:30 PM Result Value Ref Range FREE T4 1.42 0.78 - 2.19 ng/dL Confirmatory ABO/Rh Collection Time: 08/09/23 3:30 PM Result Value Ref Range ABO Grouping O Rh Type POS COURSE: T1DM - Reported n/v inability to tolerate PO at OSH, sent in for direct admission - Labs obtained on arrival including urine, CBC, CMP, thyroid studies, and BHB - Urine ketones negative and labs wnl except hypokalemia below - Patient tolerating PO and declined antiemetics - Given 2 L NS - BGT 71 consistent with CGM in place - Currently on auto mode with follow up in office this week Hypokalemia - K 3.3 on arrival - Repleted with 20 mEq oral K-chlor IMPRESSION: Hypoglycemia DISCUSSED WITH PNC PROVIDER: Dr. Rodriguez Associated attestation - Hugo Rodriguez MD - 08/09/2023 8:57 PM EST Maternal Medicine attending attestation: I reviewed and agree with the care provided by the resident during or immediately following the visit including the patient's medical history, the resident's findings in the physical exam, patient's diagnosis and treatment plan. documented in this [facility]12-18-2023 Hospital Discharge instructions Patient Education 06/15/2023 14:55:33 RSV (Respiratory Syncytial Virus) RSV (Respiratory Syncytial Virus) Infection RSV (respiratory syncytial virus) is a common cause of respiratory infections in people of all ages. The infection occurs more often in the winter and early spring. RSV is so common that almost all children have had the virus by age 2. Older adults and people who have weakened immune systems can get another infection later in life as their initial immunity to RSV decreases. RSV symptoms are usually mild. But it can be a serious problem in high-risk infants, young children, and older adults. These groups may have more serious infections and trouble breathing. How RSV spreads RSV spreads easily when people with the infection cough or sneeze. It also spreads by direct contact with an infected person. For example, by kissing a child with the virus. And, the virus can live on hard surfaces. A person can get the infection by touching something with the virus on it. For example, crib rails or door knobs. It spreads quickly in group settings, such as daycare and schools. Symptoms of RSV Most babies and children with an RSV infection have the same symptoms they might have with a cold or flu. These include a stuffy or runny nose, a cough, headache, and a low-grade fever. Older adults may get pneumonia. Treating RSV There is no specific treatment for RSV in most cases. Antibiotics are not used unless a bacterial infection is present. Try the following to relieve some of your child's symptoms: Ask your child s healthcare provider or nurse about lowering your child's fever. You should know what medicine to use and how much and how often to use it. Make sure your child isn't wearing too muchclothing. If your child is old enough, give him or her fluids, such as water and juice. Remove mucus from your s nose with a rubber bulb suction device. Be gentle to avoid causing more swelling and discomfort. Ask your child s provider or nurse for instructions. Don t let anyone smoke around your child. Infants and children with severe symptoms are hospitalized. They are watched closely and may receive the following treatment: IV (intravenous) fluids Oxygen Suctioning of mucus Breathing treatments Anti-inflammatory medicine such as steroids Children with very serious breathing problems have a breathing tube inserted (intubation). This is attached to a machine (ventilator) that helps them breathe. Call your child's provider right away if your child has any of the following: Fever, as directed by your child's provider, or: oIn an younger than 12 weeks old, a fever of 100.4 F (38.0 C) or higher oIn a child younger than 2 years old, a fever that lasts more than 24 hours oIn a child age 2 or older, a fever that lasts more than 3 days oIn a child of any age, repeated fevers of 104 F (40.0 C) or higher oA seizure with a high fever A cough Wheezing, breathing faster than usual, or trouble breathing Flaring of the nostrils or straining of the chest or stomach while breathing Skin around the mouth or fingers turning bluish Restlessness or irritability, unable to be soothed Trouble eating, drinking, or swallowing Shortness of breath Needing to sit upright (in bed or in a chair) to catch his or her breath Preventing RSV infection To help prevent the infection: Clean your hands before and after holding or touching your child. Alcohol-based hand radiation oncologist are recommended. Or wash your hands with warm water and soap for at least 15 to 30 seconds. Clean all surfaces with disinfectant radiation oncologist or wipes. Teach your child to keep his or her hands clean. Have your child wash his or her hands often or usealcohol-based hand boat cleaner. Teach them wash their hands for as long as it takes to sing the alphabet song or the Happy Birthday song. Have other family members or caregivers clean their hands before holding or touching your child. Closely watch your own health and that of family members and your child s playmates. Try to preventcontact between your child and those with a cold or fever. Don t smoke around your child. Ask your child's healthcare provider if your child is at risk for RSV. If your child is at risk, heor she may get shots (injections) during RSV season to help prevent the illness. [id number] The [employer]. [address] [place] [address], [place] [address]. All rights reserved. This information is not intended as a substitute for professional medical care. Always follow yourhealthcare professional's instructions. Follow Up Care 06/15/2023 13:57:36 With:DIAN VELEZ MD Address: [place] [address]- When:2-4 days [facility] 12-18-2023 Emergency department Discharge summary Discharge Instructions Thank you for allowing [facility] to assist you with your healthcare needs. The following is importantdischarge information regarding your hospital visit. Diagnosis from Today's Visit Medical screening exam What to Do Next Instructions from Your Care Team Follow-up with your PCP in the next 2 to 4 days. Please return to the emergency department if you start experiencing worsening nausea or any signs of DKA. Please monitor your blood glucose levels at home. No qualifying data available. Post Acute Orders No qualifying data available. You Need to Schedule the Following Appointments Follow Up with DIAN VELEZ MD When Within 2-4 days Where: [place] [address]- Allergies NKA Medications Please ask your primary doctor or pharmacist before taking any other medication not listed, including over the counter drugs, herbal medications, vitamins and or supplements as they may interact withyour home medications. What How Much When Instructions Last Dose New ondansetron (Zofran ODT use ondansetron oral tablet, disintegrating ) 4 Milligram by mouth Every 8 hours Duration: 5 Days Printed Prescription Please take this list to your next doctor s visit. Bring all medications you take, including over the counter medications, herbals and other supplements with you to your doctor s visit. Patients and families are reminded to discard old lists and to update any records with all medication providers or retail pharmacies. Education Materials RSV (Respiratory Syncytial Virus) Infection RSV (respiratory syncytial virus) is a common cause of respiratory infections in people of all ages. The infection occurs more often in the winter and early spring. RSV is so common that almost all children have had the virus by age 2. Older adults and people who have weakened immune systems can get another infection later in life as their initial immunity to RSV decreases. RSV symptoms are usually mild. But it can be a serious problem in high-risk infants, young children, and older adults. These groups may have more serious infections and trouble breathing. How RSV spreads RSV spreads easily when people with the infection cough or sneeze. It also spreads by direct contact with an infected person. For example, by kissing a child with the virus. And, the virus can live on hard surfaces. A person can get the infection by touching something with the virus on it. For example, crib rails or door knobs. It spreads quickly in group settings, such as daycare and schools. Symptoms of RSV Most babies and children with an RSV infection have the same symptoms they might have with a cold or flu. These include a stuffy or runny nose, a cough, headache, and a low-grade fever. Older adults may get pneumonia. Treating RSV There is no specific treatment for RSV in most cases. Antibiotics are not used unless a bacterial infection is present. Try the following to relieve some of your child's symptoms: Ask your child s healthcare provider or nurse about lowering your child's fever. You should know what medicine to use and how much and how often to use it. Make sure your child isn't wearing too muchclothing. If your child is old enough, give him or her fluids, such as water and juice. Remove mucus from your s nose with a rubber bulb suction device. Be gentle to avoid causing more swelling and discomfort. Ask your child s provider or nurse for instructions. Don t let anyone smoke around your child. Infants and children with severe symptoms are hospitalized. They are watched closely and may receive the following treatment: IV (intravenous) fluids Oxygen Suctioning of mucus Breathing treatments Anti-inflammatory medicine such as steroids Children with very serious breathing problems have a breathing tube inserted (intubation). This is attached to a machine (ventilator) that helps them breathe. Call your child's provider right away if your child has any of the following: Fever, as directed by your child's provider, or: oIn an younger than 12 weeks old, a fever of 100.4 F (38.0 C) or higher oIn a child younger than 2 years old, a fever that lasts more than 24 hours oIn a child age 2 or older, a fever that lasts more than 3 days oIn a child of any age, repeated fevers of 104 F (40.0 C) or higher oA seizure with a high fever A cough Wheezing, breathing faster than usual, or trouble breathing Flaring of the nostrils or straining of the chest or stomach while breathing Skin around the mouth or fingers turning bluish Restlessness or irritability, unable to be soothed Trouble eating, drinking, or swallowing Shortness of breath Needing to sit upright (in bed or in a chair) to catch his or her breath Preventing RSV infection To help prevent the infection: Clean your hands before and after holding or touching your child. Alcohol-based hand radiation oncologist are recommended. Or wash your hands with warm water and soap for at least 15 to 30 seconds. Clean all surfaces with disinfectant radiation oncologist or wipes. Teach your child to keep his or her hands clean. Have your child wash his or her hands often or usealcohol-based hand boat cleaner. Teach them wash their hands for as long as it takes to sing the alphabet song or the Happy Birthday song. Have other family members or caregivers clean their hands before holding or touching your child. Closely watch your own health and that of family members and your child s playmates. Try to preventcontact between your child and those with a cold or fever. Don t smoke around your child. Ask your child's healthcare provider if your child is at risk for RSV. If your child is at risk, heor she may get shots (injections) during RSV season to help prevent the illness. [id number] [employer] [address] [place] [id number]. All rights reserved. This information is not intended as a substitute for professional medical care. Always follow yourhealthcare professional's instructions. Additional Information VACCINATE! IT SAVES LIVES! Members of the community who have not yet received the COVID-19 vaccine and would like to receive it can visit one of [facility] vaccine clinics. There are many vaccine clinic locations within the [facility]. For locations and available times, please visit www.[email or web address].[place].gov/. It is important to note that some COVID mobile vaccine clinics are held outdoors and may be canceled in rainy or stormy conditions. To learn more about pediatric vaccinations (ages 5-11), we invite you to visit the [facility] webpage. [email or web address]/[email or web address] [email or web address] learn more about the COVID-19 vaccine, we invite you to visit the CDC website for a list of frequently asked questions. https://www.cdc.gov/coronavirus/2019-ncov/vaccines/faq.html [facility] Patient Portal Access Instructions: Stay connected with your healthcare team and access your personal medical information anytime with the [facility] Patient Portal. If you would like a full copy of your medical records please contact the [facility] Medical Records Department Thursday through Thursday between 8a.m. and 4:30p.m. Please follow the directions below to access the portal: 1.Access the email account you provided upon registration to the [facility].2.Look for an invitation email from [facility].3.Open the email and access the invitation link: Accept Invitation to [facility]4.Fill in the required heck to create your account. Sign into [email or web address].[email or web address] with your username and password that you created in the above steps to stay up to date. You can then view a summary of results, a summary of your visits, and the ability to download your summaries to your computer or send the information securely to a physician. Remember that your healthcare information is confidential, so carefully consider who you will allow to register on the [facility] Patient Portal for access to your information. You can also access the [facility] Patient Portal on the [employer]. Simply click on Health Records under [employer] and then click on the [employer] logo. HOW TO SAFELY DISPOSE OF PRESCRIPTION MEDICATIONS Please use one of the following methods to safely dispose of your unused medications. 1.Use a drug disposal kit: the drug disposal pouch allows you to safely discard your old and unuseddrugs. Ask your nurse to give you one when you are discharged.2.Visit a local take-back location: Many local pharmacies and police departments have programs that collect old and unwanted prescriptiondrugs. Call your local pharmacy or go to http://bit.PopSeal/8B2Sv0b to find one close to you.3.Make use of household items: Use cat litter or old coffee grounds to dispose medications if other options arenot available. Mix your drugs with these household products, seal them in an airtight container andthrow it into the garbage. Call [facility]: [phone] to be sure your drugs can be disposed of in this way. Some medicines may require a different approach.4.Never flush your medications down the toilet. IF YOU HAVE BEEN PRESCRIBED AN OPIOIDS FOR PAIN If you have been prescribed an opioid (such as hydrocodone, oxycodone or morphine), it is critical to understand the possible side effects and risks of opioid pain medications. Even when taken as directed, opioids can have several side effects including: Tolerance, meaning you might need to take more of a medication for the same pain relief. Nausea, vomiting and/or constipation. Sleepiness, dizziness, dry mouth, confusion, depression or itching. Physical dependence, meaning you have withdrawal symptoms when a medication is stopped ? this can develop within a few days. KNOW YOUR RESPONSIBILITIES It is important to know exactly how much and how often to take the opioid pain medications you are prescribed. Never take opioids in higher amounts or more often than prescribed. Do not combine opioids with alcohol or other drugs that cause drowsiness, such as benzodiazepines, also known as benzos,including diazepam and alprazolam, muscle relaxants or sleep aids. Never sell or share prescriptionopioids. This is illegal. Store opioids in a secure place and out of reach of others (including children, family, friends and visitors). The last page(s) of this document has been signed and retained as a CHART COPY Signatures Patient Education Materials RSV (Respiratory Syncytial Virus) Medication Leaflets My discharge plan and instructions have been reviewed and explained to me and IMARILIA JAYCEE E understand my current condition and have read and understand these discharge instructions. I have received a written copy of the plan/instructions. If I have questions, I am aware that I should contact my doctor. 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: Date/Time: Relationship to Patient: Witness Name/Signature: Date/Time: [facility]12-17-2023 History of Present illness Narrative * Kelsy Tee PA-C - 06/14/2023 12:23 PM EST This note was created using Wikets. Subjective Catalina Capellan is a 17 year old female. HPI Presents with cough and nasal congestion over the past 3 days. Her boyfriend have been sick with similar symptoms. She is a type I diabetic. Blood sugar has been around 300 today. She denies chest pain. Cough sometimes is productive. No diarrhea or vomiting. No ear pain. She has had a sore throat. No home COVID test done. Review of Systems Constitutional: Positive for fatigue. Negative for fever. HENT: Positive for congestion, rhinorrhea and sore throat. Negative for ear pain. Respiratory: Positive for cough and shortness of breath. Negative for wheezing. Cardiovascular: Negative. Gastrointestinal: Negative. Genitourinary: Negative. Musculoskeletal: Positive for myalgias. Neurological: Negative. All other systems reviewed and are negative. PAST MEDICAL HISTORY Diagnosis Date Constipated Eczema Current Outpatient Medications Medication Sig Dispense Refill Ethinyl Estradiol-Norelgestrom (XULANE) 150-35 mcg/24 hr patch Apply 1 Patch as directed one time aweek. 3 Patch 7 loratadine (CLARITIN) 10 mg tablet Take 10 mg by mouth. DEXCOM G6 SENSOR leny Use as directed. Change sensor every 10 days. alcohol swabs Use as directed to test metered glucose and administer insulin. ONETOUCH VERIO TEST STRIPS test strip Use as directed to test metered glucose 6- 8 times per day ONETOUCH VERIO FLEX METER Use as directed to test metered glucose BAQSIMI 3 mg/actuation nasal spray Administer 1 Dose (3 mg) in nose as needed (severe low blood sugar) LANTUS SOLOSTAR U-100 INSULIN 100 unit/mL (3 mL) INJECT 30 UNITS SUBCUTANEOUSLY at night DIRECTED (subject to change) insulin lispro (HUMALOG KWIKPEN) 100 unit/mL Inject up to 50units SQ daily as directed based on IC ratio and correction factor OMNIPOD 5 G6 INTRO KIT, GEN 5, crtg as directed. ONETOUCH DELICA PLUS LANCET 33 gauge Use as directed to test metered glucose 6-8 times per day UNIFINE PENTIPS PLUS 32 gauge x 5/32 Use as directed to administer insulin 4-6 times per day. Dmcxmavnzvuudnt-Eobjzrzck-QI (BROMFED DM) 2-30-10 mg/5 mL syrup Take 10 mL by mouth four times a day as needed. 200 mL 0 fluconazole (DIFLUCAN) 150 mg tablet Take 1 tablet by mouth once daily for 1 day. 1 tablet 0 fluconazole (DIFLUCAN) 150 mg tablet Take 1 tablet by mouth one time only for 1 dose. 1 tablet 0 triamcinolone acetonide (KENALOG) 0.1 % ointment Apply to affected area twice daily. For up to 2 weeks (Patient not taking: Reported on 04/15/2023) 30 g 0 LIDOCAINE VISCOUS 2 % solution Take 5-10 mL by mouth three times daily as needed. (Patient not taking: Reported on 07/30/2022) 100 mL 2 escitalopram oxalate (LEXAPRO) 10 mg tablet Take 10 mg by mouth daily at bedtime. (Patient not taking: Reported on 04/15/2023) FLUoxetine (PROZAC) 20 mg capsule Take 20 mg by mouth. (Patient not taking: Reported on 04/08/2022) Bifidobacterium Infantis (ALIGN) 4 mg cap Take by mouth. (Patient not taking: Reported on 05/05/2022) cyproheptadine (PERIACTIN) 4 mg tablet Take 4 mg by mouth. (Patient not taking: Reported on 01/03/2022 ) ergocalciferol 50,000 unit capsule (VITAMIN D2, DRISDOL) Take by mouth. (Patient not taking: Reported on 05/05/2022) fluticasone (FLONASE) 50 mcg/actuation nasal spray Use 1 [place] in the nose. (Patient not taking: Reported on 08/02/2021 ) No current facility-administered medications for this visit. PAST SURGICAL HISTORY Procedure Laterality Date CYSTOSCOPY,INSERT URETHRAL STENT EGD LITHROTRIPSY FAMILY HISTORY Problem Relation Age of Onset Hypertension Maternal Grandfather Heart Attack Maternal Grandfather GI Maternal Grandmother other (Sponge Kidney) Maternal Grandmother other (Hysterectomy) Mother other (Other) Father Unknown Social History Tobacco Use Smoking status: Never Smokeless tobacco: Never Substance Use Topics Alcohol use: Never Drug use: Never Objective BP 121/85 Pulse 111 Temp 36.2 C (97.2 F) Resp 20 Wt 68.1 kg (150 lb 3.2 oz) LMP 10/14/2022 (Within Days) SpO2 98% Physical Exam Vitals reviewed. Constitutional: Appearance: Normal appearance. HENT: Head: Normocephalic and atraumatic. Right Ear: Tympanic membrane, ear canal and external ear normal. Left Ear: Tympanic membrane, ear canal and external ear normal. Nose: Congestion present. Mouth/Throat: Mouth: Mucous membranes are moist. Pharynx: Oropharynx is clear. Cardiovascular: Rate and Rhythm: Normal rate and regular rhythm. Heart sounds: Normal heart sounds. Pulmonary: Effort: Pulmonary effort is normal. Breath sounds: Normal breath sounds. Musculoskeletal: Cervical back: Neck supple. Skin: General: Skin is warm and dry. Neurological: Mental Status: She is alert. Assessment and Plan ASSESSMENT/PLAN: 1. Viral illness - ICD9: 079.99, ICD10: B34.9 - Discussed viral etiology and rationale for treatment. - Symptomatic treatment with prn analgesia - Supportive care with fluids and rest -Patient ispoorly controlled type I diabetic, if positive for COVID could consider oral antiviral treatment. - COVID & INFLUENZA A/B & RSV NAAT, ROUTINE Kelsy Tee PA-C [facility] * Marisa Canela RN - 06/01/2023 5:52 PM EST Discharged to home per resident without incidence [facility]12-04-2023 Emergency department Note* Marisa Canela RN - 06/01/2023 5:52 PM EST Discharged to home per resident without incidence * Marisa Canela RN - 06/01/2023 5:40 PM EST Catalina Capellan [id number] Point of Care testing Glucometer: Capillary blood drawn 280 mg/dl Results of < 45 or > 450 mg/dl need to be confirmed by the laboratory REFERENCE RANGE: 60-110 mg/dl. Two identifiers from patient verified. Test performed at bedside. Specimen labelled in the presenceof the patient. * Marisa Canela RN - 06/01/2023 4:46 PM EST Catalina Capellan [id number] Point of Care testing Glucometer: Venous blood drawn 237 mg/dl Results of < 45 or > 450 mg/dl need to be confirmed by the laboratory REFERENCE RANGE: 60-110 mg/dl. Two identifiers from patient verified. Test performed at bedside. Specimen labelled in the presenceof the patient. * Marisa Canela RN - 06/01/2023 4:44 PM EST .iv * Roland Faria RN - 06/01/2023 2:18 PM EST Patient given a urine cup to obtain specimen. * Roland Faria RN - 06/01/2023 2:12 PM EST Patient with generalized hives that itch for over a month. Steroids started yesterday. Hives decreasing, but patient complaining of mouth itching. Patient type 1 diabetic. Blood sugar greater than 400. Patient uses insulin pen but sliding scale dosing is not decreasing blood sugar. Resps easy and unlabored. MMM. Patient denies pain/cough/SOB. Patient seen at [facility] two days ago and yesterday. Patient states mouth swelling occasionally makes it hard to breathe, but denies any problems currently. [facility] Discharge instructions* Discharge Instructions* Thuy Rodriguez MD - 06/01/2023 5:48 PM EST Please follow sick day management if sugars are high between regular diabetic management Allergy recommendations for hives: Take 10mg tablet of Zyrtec twice a day for 2 weeks; if hives improve you can start taking 10mg oncea day Take 25mg Atarax every 8 hours as needed for itching or hives You can take up to 20mg twice a day of Zyrtec if needed. Please be aware that these medicines can make you drowsy or sleepy. If symptoms persist despite this plan, please contact the allergy clinic to get an appointment sooner. Keep your appointment in August for now. If you develop difficulty breathing, swelling of your tongue or mouth please return to the Emergency Room. * Attachments The following attachments cannot be sent through Care Everywhere. * (Y) ADULT Advisor: Diabetes: High Blood Glucose (Hyperglycemia) (Beninese) [facility] Note* Marisa Canela RN - 06/01/2023 5:40 PM EST Catalina Capellan [id number] Point of Care testing Glucometer: Capillary blood drawn 280 mg/dl Results of < 45 or > 450 mg/dl need to be confirmed by the laboratory REFERENCE RANGE: 60-110 mg/dl. Two identifiers from patient verified. Test performed at bedside. Specimen labelled in the presenceof the patient. [facility]23 Emergency department Note* Marisa Canela RN - 06/01/2023 4:46 PM EST Catalina Capellan [id number] Point of Care testing Glucometer: Venous blood drawn 237 mg/dl Results of < 45 or > 450 mg/dl need to be confirmed by the laboratory REFERENCE RANGE: 60-110 mg/dl. Two identifiers from patient verified. Test performed at bedside. Specimen labelled in the presenceof the patient. [facility]12[facility]04[facility] Emergency department Note* Marisa Canela RN - 06/01/2023 4:44 PM EST .iv [facility] Emergency department Note* Roland Faria RN - 06/01/2023 2:18 PM EST Patient given a urine cup to obtain specimen. [facility]12-04-2023 Emergency department Triage note* Roland Faria RN - 06/01/2023 2:12 PM EST Patient with generalized hives that itch for over a month. Steroids started yesterday. Hives decreasing, but patient complaining of mouth itching. Patient type 1 diabetic. Blood sugar greater than 400. Patient uses insulin pen but sliding scale dosing is not decreasing blood sugar. Resps easy and unlabored. MMM. Patient denies pain/cough/SOB. Patient seen at [facility] two days ago and yesterday. Patient states mouth swelling occasionally makes it hard to breathe, but denies any problems currently. [facility]12-03-2023 Discharge summary Author Xavier Peck [facility] May 31, 2023 8:56pm Note Date/Time May 31, 2023 7 :54pm [facility] Medical Records Department [address] [place] [address] Emergency Department Summary 05/31/23 MR#: [id number] Acct: [id number] Name: CATALINA CAPELLAN Rep #:[id number] : 2005 17 From: Xavier Peck MD PCP: Dr. Dian Velez MD Status:REG ER Location: ED HPI History of Present Illness Chief Complaint: Allergic Reaction Narrative Narrative: 17-year-old female presents with hives that she has had for 6 weeks. She statesthey are getting worse and she feels like her tongue is swollen today. She has past medical history of diabetes type 1 for which she takes insulin. Of note, she was seen in the emergency department yesterday evening and states that she had a prednisone burst called in for her to [facility] retail pharmacy, but they are closed today so she cannot take her medications. She states that the hives on her arms are getting worse and she feels like her tongue is swollen. Yesterday, she had some lesions on her lips that had resolved. [facility] Medical History Anxiety Type 1 diabetes mellitus Home Medications escitalopram oxalate 10 mg tablet (Lexapro) 10 mg PO QHS ANXIETY 08/18/22 [History Last Taken 08/17/22] loratadine 10 mg tablet 10 mg PO DAILY PRN ALLERGIES 08/18/22 [History Last Taken Unknown] norelgestromin 150 mcg-e.estradiol 35 mcg/24 hr weekly transderm patch (Zafemy) 1 patch topical QWEEK CONTROL 08/18/22 [History Last Taken 08/18/22] naproxen 500 mg tablet (Naprosyn) 500 mg PO BID PRN pain #20 tabs 10/25/22 [Rx Last Taken Unknown] trazodone 50 mg tablet 50 mg PO QHS 10/25/22 [History Last Taken Unknown] oxycodone-acetaminophen 5 mg-325 mg tablet (Percocet) 1 tab PO Q8H PRN pain 2 days #6 tabs 02/28/23 [Rx Last Taken Unknown] oxycodone-acetaminophen 5 mg-325 mg tablet (Percocet) 1 tab PO Q6H PRN pain 3 days #12 tabs 03/25/23 [Rx Last Taken Unknown] prednisone 20 mg tablet 40 mg (2 x 20 mg) PO DAILY 7 days #14 tabs 05/31/23 [Rx Last Taken Unknown] Allergy/AdvReac Type Severity Reaction Status Date / Time No Known Allergies Allergy Verified 05/31/23 19:12 Social History Smoking Status: Never smoker substance use type: does not use ROS ROS ED ROS Narrative Constitutional: No fever, no chills. HEENT: No sore throat. No neck pain. No loss of vision. No rhinorrhea. Reported tongue swelling. Cardiovascular: No chest pain. No palpitations. No pedal edema. Respiratory: No cough, no shortness of breath. Abdominal: No abdominal pain. No nausea. No vomiting. Genitourinary: No dysuria. No hematuria. Musculoskeletal: No myalgias. No arthralgias. Neurologic: No headaches. No dizziness. No lightheadedness. Skin: Positive hives and urticaria, diffuse. No change in color. Psychiatric: No depression. No anxiety. EXAM Physical Exam Narrative Exam Narrative: Afebrile. Vital signs noted. HEENT: Normocephalic. Atraumatic. PERRL, EOMI. Neck soft and supple. No pointtenderness or step off. Airway patent. No drooling or trismus. No mucosal lesions. No angioedema noted. Cardiovascular: Regular rate and rhythm. No murmurs, rubs, or gallops appreciated. Respiratory: No tachypnea. Lungs clear to auscultation bilaterally. Gastrointestinal: Abdomen soft, nontender, with normoactive bowel sounds. No rebound or guarding. Neurological: Awake. Alert. Nonfocal, nonlateralizing. Skin: Positive due to diffuse urticaria mainly on left arm. Normal color. No pallor. Musculoskeletal: No pedal edema. Full range of motion extremities. Const Vital Signs: 05/31/23 19:10 Temperature 98.3 F Temperature Source Temporal Pulse Rate 100 Respiratory Rate 18 Blood Pressure 145/85 H Blood Pressure Mean 105 Pulse Ox 100 Oxygen Delivery Method Room Air MDM MDM MDM Narrative Medical decision making narrative: I reviewed the patient's prior ED visit. She states she took Benadryl prior to arrival. I will give her oral prednisone 40 mg for which she was written, and for Pepcid orally as well. I do not feel that she requires epinephrine and I donot feel she is having angioedema that will require admission or intubation. Her airway is patent and she is handling her secretions well. As Dr. Peña hadstated, I do not have any testing here available to figure out why she has had hives for 6 weeks. It was planned for her to follow-up with an project structural engineer. She states she does not have an appointment until August of next year. Regardless, Ramakrishna not feel epinephrine is indicated once again. I will see if she can receive meds to bed and I wrote her a prescription for prednisone burst for the next week to see if this helps. I will refrain from Kenalog as she was told today and previously that steroids could increase her blood sugars in this way she could stop taking the prednisone immediately if her blood sugars are out of control with the insulin that she takes. I do not feel that laboratory work is indicated. She was referred to her primary care provider and to an project structural engineer locally. I feel she be discharged safely home with follow-up. Repeat examination at approximately 2049 shows her lying on the cot, handling her secretions well. No airway obstruction. No feelshe requires observation at this time. Return instructions to the emergency department were reviewed. Disposition is discharged home in stable condition. Discharge Plan Triage Chief Complaint: Allergic Reaction ED Provider: Xavier Peck Dx/Rx/DC Orders Clinical Impression: Urticaria Instructions: ED Hives (Adult) Prescriptions: New prednisone 20 mg tablet 40 mg PO DAILY 7 Days Qty: 14 0RF Discontinued prednisone 20 mg tablet 20 mg PO DAILY Qty: 4 0RF No Action loratadine 10 mg tablet 10 mg PO DAILY PRN (Reason: ALLERGIES) Patient Comments: Take 1 Tablet by mouth daily as needed for Allergies Zafemy 150-35 mcg/24 hr patch weekly 1 patch topical QWEEK Patient Comments: Apply 1 Patch as directed one time a week. escitalopram oxalate [Lexapro] 10 mg tablet 10 mg PO QHS Patient Comments: Take 1 tablet by mouth at bedtime trazodone 50 mg Tablet 50 mg PO QHS naproxen [Naprosyn] 500 mg tablet 500 mg PO BID PRN (Reason: pain) Qty: 20 0RF oxycodone-acetaminophen [Percocet] 5-325 mg tablet 1 tab PO Q8H PRN (Reason: pain) 2 Days Qty: 6 0RF oxycodone-acetaminophen [Percocet] 5-325 mg tablet 1 tab PO Q6H PRN (Reason: pain) 3 Days Qty: 12 0RF Primary Care Provider: Dian Velez Referrals: Dian Velez MD [Primary Care Provider] - As soon as possible Jose Arroyo MD [Med Staff - Aircraft Quality Control Inspector] - As soon as possible Disposition Disposition: Home, Self Care What to do if you have Problems For any increased pain, shortness of breath, bleeding, nausea or vomiting, chestpain, or any unexpected problems, contact your Primary Care Provider. Call [facility] ([phone]) or report to the closest Emergency Room. Call 911 if necessary. 05/31/232055 <Electronically signed by Xavier Peck MD> Cosigner Signature (if applicable): CC: Dr. Dian Velez MD ~ Signed [facility] Work Phone: 1(411) 989-581612-02-2023 Discharge summary Author Sami Beck [facility] May 30, 2023 11:51pm Note Date/Time May 30, 2023 1 1:45pm [facility] Medical Records Department [address] [place] [id number] Emergency Department Summary 05/30/23 MR#: [id number] Acct: [id number] Name: CATALINA CAPELLAN Rep #:[id number] : 2005 17 From: Sami Beck MD PCP: Dr. Dian Velez MD Status:PRE ER Location: ED HPI History of Present Illness Chief Complaint: Allergic Reaction Narrative Narrative: Patient presents for urticaria and pruritus. She states this has been going on for 6 weeks. The cause is unknown. She has not appointment with an project structural engineer but cannot get in to see them until August since she is not established. She states tonight they started getting on her lip. She has them all over her body elsewhere. She denies any dyspnea, lightheadedness, syncope, or any other systemic symptoms. She called the nurse line and they told her to come to the ER. Additionally, she was here in the ER recently for high blood sugars, she states she was diagnosed as a type II diabetic but it was incorrect after following up she was diagnosed as a type I diabetic and she is currently on insulins, no oraldiabetes medications. [facility] Medical History (Updated 05/30/23 @ 23:[address] Sami Beck MD) Anxiety Type 1 diabetes mellitus Home Medications escitalopram oxalate 10 mg tablet (Lexapro) 10 mg PO QHS ANXIETY 08/18/22 [History Last Taken 08/17/22] loratadine 10 mg tablet 10 mg PO DAILY PRN ALLERGIES 08/18/22 [History Last Taken Unknown] norelgestromin 150 mcg-e.estradiol 35 mcg/24 hr weekly transderm patch (Zafemy) 1 patch topical QWEEK CONTROL 08/18/22 [History Last Taken 08/18/22] naproxen 500 mg tablet (Naprosyn) 500 mg PO BID PRN pain #20 tabs 10/25/22 [Rx Last Taken Unknown] trazodone 50 mg tablet 50 mg PO QHS 10/25/22 [History Last Taken Unknown] oxycodone-acetaminophen 5 mg-325 mg tablet (Percocet) 1 tab PO Q8H PRN pain 2 days #6 tabs 02/28/23 [Rx Last Taken Unknown] oxycodone-acetaminophen 5 mg-325 mg tablet (Percocet) 1 tab PO Q6H PRN pain 3 days #12 tabs 03/25/23 [Rx Last Taken Unknown] prednisone 20 mg tablet 20 mg PO DAILY #4 TABLETS 05/30/23 [Rx Last Taken Unknown] Allergy/AdvReac Type Severity Reaction Status Date / Time No Known Allergies Allergy Verified 05/30/23 23:25 Social History Smoking Status: Never smoker substance use type: does not use ROS ROS ED Constitutional Constitutional ED: Denies chills or fever(s) Eyes Eyes: Denies change in vision or diplopia ENT ENT ED: Denies rhinorrhea or sore throat Cardiovascular Cardiovascular: Denies chest pain or palpitations Respiratory/Chest Respiratory/Chest: Denies cough or dyspnea Gastrointestinal Gastrointestinal: Denies abdominal pain, diarrhea, nausea or vomiting Genitourinary Genitourinary ED: Denies dysuria or hematuria Musculoskeletal Musculoskeletal: Denies back pain or neck pain Integumentary Reports pruritus and rash; Denies abscess Neurologic Neurologic: Denies headache(s), paresthesias or weakness Psychiatric Psychiatric: Denies anxiety or suicidal thoughts EXAM Physical Exam Const Vital Signs: 05/30/23 23:23 Temperature 97.8 F Temperature Source Temporal Pulse Rate 92 Respiratory Rate 16 Blood Pressure 145/90 H Blood Pressure Mean 108 Pulse Ox 98 Oxygen Delivery Method Room Air Positive well nourished and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 injections, BG levels, and appropriate way to manage her diet. She described doing research prior to coming to the hospital on ways to maintain an appropriate diet and appropriate BG levels. Catalina reported the nurses and her mother have administered BG checks/injections, as she feels anxious about completing these tasks herself. She reported the BG checks are the most uncomfortable, and cause pain and bruising in her fingertips. She identified various supports in her life, such as her boyfriend, parents, and her grandmother. Catalina, her mother, and her boyfriend are receiving education. Perceived Barriers to Adherence: Catalina expressed concern about changing her diet, specifically noting challenges of timing her meals appropriately due to her work hours. Risk Assessment: Catalina denied current suicidal ideation, plan, or intent. She reported previous passive suicidal ideation when she was 14/15 years old, that she spoke with her previous therapist about. She denied any previous intention, non-suicidal self- injury, or suicide attempts. See risk assessment tab for full information on [place] Suicide Severity Rating Scale (CSSRS) [email or web address].[facility] Behavioral Observations Catalina was oriented x4 and presented as pleasant and cooperative. Her mood was anxious and her affect was WNL/full range.She made intermittent eye contact and spoke quietly. Catalina demonstrated appropriate eye contact. She appropriately engaged in conversation. She answered questions when asked. Catalina did not appear to be in any acute distress. Interventions Normalized and validated her feelings related to adjusting to this new diagnosis and hospitalization. Provided education on developmentally appropriate adjustment to new diabetes diagnosis including adjustment to insulin injections and BG checks. Provided education on anxiety and the desensitization process that occurs with increased exposure to feared stimuli, such as injections and BG checks. Identified multiple supports in her social network to promote adjustment and assist her in in managing her diabetes. Provided education and modeled strategies to use to ease BG checks and injections (e.g. distractions and deep breathing). Discussed both inpatient and outpatient resources available to the family through Pediatric Psychology within Endocrinology at [facility]. Impressions and Recommendations Catalina Capellan is a 17 y.o. female with newly diagnosed diabetes mellitus. Catalina is having troubleadjusting to new diagnosis and hospitalization; however, she is quickly learning and has a strong support system. She has not administered BG checks/insulin injections herself, but she is open to learning to complete this task by herself. She identified diet as a potential concern for managing diabetes. She endorsed a history of emotional concerns, primarily related to PTSD, anxiety, and depression, and is on a waitlist for outpatient therapy at a community agency. No additional needs identified at this time. Provided recommendations to promote adjustment, including support seeking, distraction, and coping.Discussed outpatient resources available to Catalina through Pediatric Psychology at [facility]. Offered to provide a referral list for outpatient providers in her area, if she continues to have difficulty connecting with a new therapist. Plan: Psychology will follow-up with Catalina and her family during his first outpatient follow-up visit through the [facility]. Family was given contact information for Psychology and was encouraged to contact us through Endocrinology with further questions or concerns. Katrina Milligan Psy.D. Pediatric Staff Field Engineer [phone] The services described above were provided by Katrina Milligan PsyD and Gilda Doyle, Ph.D. I havediscussed this patient with the trainee, reviewed the above note, and agree with the assessment, impressions, and recommendations/ plan. Gilda Doyle, PhD Pediatric Psychologist Pager [phone] [facility] Work Phone: [phone] 506-120510-24-2023 Progress note* Ancillary Progress Note - Jose A Mcnamara - 04/21/2023 2:39 PM EDT Rehabilitation Assistant Note Patient Name: Catalina Capellan Date of : 2005 Date of Visit: Visit: Type of Visit: Initial Time Spent (minutes): 15 Visited With: Mother;Patient;Other Reason for Visit: Rounds visit Referral From: Cloth Handler - Self Assessment: Emotional Distress: Low Present Coping Level: High Level of Support: Strong Response: Appropriate to situation Source of Support: Family Spiritual Distress: Low Interventions: Facilitated: Story telling Provided: Rehabilitation Assistant education;Initiated relationship of care/support;Hospitality;Listened empathically;Normalized subject's experience Rehabilitation Assistant Outcomes: Outcomes: Expressed gratitude;Seemed more trusting Plan: Rehabilitation Assistant Plan: Follow PRN Jose A Mcnamara [facility] Consult note* Ancillary Consult - Goldie Rosales RD/SUKI - 04/21/2023 10:16 AM EDT Diabetes Nutrition Evaluation Patient Name: Catalina Capellan Date of : 2005 Sex: female Diagnosis: Patient Active Problem List Diagnosis Allergic rhinitis, cause unspecified BMI (body mass index), pediatric, 95-99% for age Anxiety with depression Left flank pain Kidney stone on right side Hyperglycemia Reason for Referral: New onset diabetes mellitus Anthropometrics: Wt Readings from Last 3 Encounters: 04/20/23 63.8 kg (75 %, Z= 0.67)* 04/20/23 65.1 kg (78 %, Z= 0.77)* 03/27/23 64.9 kg (78 %, Z= 0.76)* * Growth percentiles are based on CDC (Girls, 2-20 Years) data. Ht Readings from Last 5 Encounters: 03/27/23 167 cm (72 %, Z= 0.59)* 07/04/22 165.5 cm (65 %, Z= 0.38)* 10/18/21 165.5 cm (66 %, Z= 0.41)* 10/01/21 165.5 cm (66 %, Z= 0.41)* 09/16/21 165.2 cm (64 %, Z= 0.36)* * Growth percentiles are based on CDC (Girls, 2-20 Years) data. There is no height or weight on file to calculate BMI. 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 [employer] Breakfast: skips, eats on Saturdays and Sundays Am snack: none Lunch: 10-11 am on weekends, week days 12-1 pm- at work- pancakes or omelet if breakfast food, or if lunch- salad + mashed pot, shrimp, roll Pm snack: none Dinner: at work or if home- what mom makes- spaghetti and dinner roll, chicken + green beans + rice, gyros, potatoes, likes cheese, likes apples Hs snack: not usually Appetite: Variable GI Symptoms: none noted Nutrition Assistance Programs: none noted Beverages consumed: water, juice, Gatorade Eating out frequency: daily at work Diet history reveals: poor intake fruit, poor intake vegetables, poor intake/milk dairy, poor intake fiber rich food sources, and excessive eating out Eating Attitudes and Behaviors: hx eating disorder Physical Activity: minimal Current Meal Plan: Diet: CHO controlled Supplements: none Assessed Needs: Will assess at NODE visit Assessment Summary: Catalina Capellan is a 17 y.o. female with history of nephrolithiasis, recurrent UTIs, and eating disorder in remission admitted with hyperglycemia, glucosuria, and ketonuria in the setting of new onsetDiabetes Mellitus, most likely Type 1. The patient is currently clinically stable and requires admission for new onset diabetes education and close clinical monitoring. Nutrition Diagnosis: Altered glucose levels related to new onset diabetes mellitus as evidenced by hyperglycemia, elevated HgbA1c, c/o polyuria and polydipsia, unintentional weight loss, positive ketones. Nutrition Prescription: -Nutrition education: carbohydrate counting, types of carbohydrates, grams of carbohydrate in typical portion of food, meal planning, food label reading, eating out, carbohydrate snacks, free foods, sweetened drinks and sugar free alternatives, online carbohydrate counting resources ([employer]) -Discussed/ demonstrated calculating xylpcvy-sj-ibvizwsuncbs ratio; family return demonstrated Nutrition Goals:accurately count carbohydrates and appropriately use iocooya-nv-vjftasfjbkvv ratio Nutrition Education: Learner: patient, mother Educated on: reinforced importance of accurate carbohydrate counting skills, suggessted daily activity to help with blood glucose control, free foods, carbohydrate counting, dubencv-jb-elxv ratio, sugar substitute, and healthy eating Method: demonstration, explanation, and handout Education materials: Nutrition education material provided: (Red folder) RD name and contact information, Choose Your Foods exchange list book, Carbohydrate Counting booklet, Nutrition in the Fast Ramo pamphlet, Nutrition and Exercise handout, Carbohydrate Snacks handout, Food intake record Readiness: acceptance Response: Verbalizes understanding and Demonstrated understanding Family support: two parent, family Time Spent: 30 minute(s) Goldie Rosales RD/SUKI April 21, 2023 [facility] Progress note* Case Management - Blu Strong RN - 04/21/2023 10:00 AM EDT Multidisciplinary Team Meeting Assessment/Plan of Care Reviewed Are there Case Management needs identified at this time? No DME/skilled needs at this time. CMs will continue to monitor closely for potential home care (services/equipment) needs. Representatives: Case Management: Britni Oro RN, Blu Strong RN, Isabel Begue RN CM Finishing Trimmer Life: Anita Roldan SAS ANALYST Nursing: Breanne Pool RN Clinical Coordinator, Geovanny Christine RN [id number] Nurse Heavy Equipment Plumbing Supervisor, Cheri Camacho Endocrinology RN Psychology: Dr. Dolye [facility] History of Present illness Narrative* Darian Atkinson MD - 04/21/2023 6:55 AM EDT Resident Daily Progress Note Name: Catalina Capellan Date:04/21/2023 Attending:Darian Atkinson MD Admission Date: 04/20/2023 Hospital Day: 2 SUBJECTIVE: Patient seen and examined. Resting comfortably in bed, mom present in the room. No acute events overnight. Patient does endorse some midline abdominal pain and nausea but does not endorse dysuria, constipation, or diarrhea. She reports polys and fatigue for a couple of weeks prior to presentation. She notes feeling ok this morning and without complaints. Mom and Catalina's boyfriend, Payton, at bedside. (Pat joined during the visit). OBJECTIVE: Vitals: 04/21/23 0340 BP: 108/69 Pulse: 70 Resp: 16 Temp: 36.3 C (97.3 F) Temp: 36.3 C (97.3 F) Temp Min: 36.1 C (97 F) Max: 37 C (98.6 F) Heart Rate: 70 Pulse Min: 68 Max: 111 Resp: 16 Resp Min: 16 Max: 20 BP: 108/69 BP Min: 108/69 Max: 125/85 SpO2: 98 % SpO2 Min: 97 % Max: 99 % Date 04/20/23 - 04/20/23235804/21/23 - 04/21/232358 Shift [id number] 0255-5411 24 Hour Total 3571-6077 7007-7799 24 Hour Total INTAKE P.O. 240 240 Liquid (mL) 240 240 I.V. 641.26(0.84) 641.26(0.42) 654.02 654.02 Volume (mL) (dextrose 5 % and 0.45 % NaCl with KCl 20 mEq/L IV) 654.02 654.02 Volume (mL) (NaCl 0.9% IV) 641.26 641.26 Shift Total(mL/kg) 641.26(10.05) 641.26(10.05) 894.02(14.01) 894.02(14.01) OUTPUT Urine 300(0.39) 300(0.2) Urine 300 300 Shift Total(mL/kg) 300(4.7) 300(4.7) NET 341.26 341.26 894.02 894.02 Weight (kg) 63.8 63.8 63.8 63.8 63.8 Dietary Orders (From admission, onward) Start Ordered 04/20/232054 DIET CARB CONTROLLED (NON-SPECIFIED LEVELS) 2-1500+2000 HS Snack, 0-30 grams of CHO DIET EFFECTIVE NOW References: IDDSI Description & Terminology 04/20/232053 Patient Lines/Drains/Airways Status Active IV Lines Name Placement date Placement time Site Days Peripheral IV 04/20/23 Right Antecubital 04/20/231802 -- less than 1 Patient Lines/Drains/Airways Status Active NG/Airways None General: Awake, age appropriate activities for development. In no acute distress HEENT: Normocephalic and atraumatic. No ocular discharge, no nasal discharge; moist mucous membranes. Multiple nasal piercings. Cardiac: Regular rhythm, rate appropriate for age. Normal heart sounds. No murmurs, rubs or gallops. Pulses symmetrical, brisk refill. Respiratory: Respirations are easy and non-labored with no accessory muscle usage, good air exchange bilaterally. No rales, rhonchi, or wheezes. Abdomen: Abdomen soft, non-tender to palpation, and non-distended with normal bowel sounds. Neurologic: Symmetric limb movements, age appropriate response to hands on care. Skin: Skin is warm and dry. Many tattoos to arm and back. General appearance: WN/WD, NAD, pleasant and cooperative HEENT: NC/AT. Nares without drainage. MMM without pharyngeal erythema or exudate. Eyes: Conjuctivae clear. PERRL. Neck: No adenopathy. Thyroid: Thyroid nontender, nonenlarged and without palpable nodules. Cardiac: RRR without murmur, rub, or gallop. DP 2+ bilaterally. Lungs: CTA bilaterally without wheezes, rales, or rhonchi. Abdomen: Positive bowel sounds, soft, NT/ND. No organomegaly appreciated. Extremities: MAEE. No edema. Skin: Unremarkable. Tattoos. Neuro: Alert and oriented. No focal deficits appreciated. Psych: Pleasant. Appropriate eye contact. Quiet. Scheduled Meds: insulin lispro 0-30 Units Subcutaneous Q2H NaCl 0.9% 2 mL Intravenous Q8H insulin glargine 20 Units Subcutaneous at Bedtime vitamin D3 1,000 Units Oral Daily NON FORMULARY 1 Patch Transdermal Weekly Continuous Infusions: PRN Meds: NaCl 0.9%, NaCl 0.9%, NaCl 0.9%, NaCl 0.9%, NaCl, sterile water, NaCl, Dextrose, insulin lispro Data Review: No orders to display Recent Results (from the past 24 hour(s)) POCT Urinalysis Dipstick Collection Time: 04/20/23 2:36 PM Result Value Ref Range POCT, Leukocytes, Urine Negative Negative POCT Nitrite, Urine Negative Negative POCT Protein, Urine Trace Negative - Trace mg/dl POCT Urine,pH 7.0 5.0 - 8.0 POCT Blood, Urine 3+ (Large) (A) Negative POCT Urine Specific Hanson 1.010 1.005 - 1.030 POCT Ketones, Urine Moderate (40mg/dL) (A) Negative mg/dl POCT Glucose, Urine *500 mg/dL (2+) (A) Negative mg/dl Glucose by meter Collection Time: 04/20/23 2:48 PM Result Value Ref Range Glucose by Meter 395 (H) 70 - 99 mg/dL Urinalysis with microscopic Collection Time: 04/20/23 5:41 PM Result Value Ref Range Color Ur Colorless NA Character Clear NA Specific gravity 1.014 1.005 - 1.030 NA Leukocyte Esterase Ur 25 Vamshi Negative leuk/ul Nitrites NEGATIVE Negative mg/dl pH Ur 5.5 5.0 - 8.0 NA Hemoglobin Ur 3+ (A) Negative RBC's/uL Protein Ur NEGATIVE Neg.-Trace mg/dL Glucose Ur 4+ (A) Normal mg/dL Ketones Ur 2+ (A) Negative mg/dL Urobilinogen NORMAL Normal mg/dl Bilirubin Ur NEGATIVE Negative mg/dL Volume Ur 12 12 ml , urine Collection Time: 04/20/23 5:41 PM Result Value Ref Range HCG,Urine Negative mIU/mL Urinalysis, [facility] Collection Time: 04/20/23 5:41 PM Result Value Ref Range WBC UR 31.0 (H) 0.0 - 20.0 /uL RBC, Urine 1603.0 (H) 0.0 - 20.0 /uL Bacteria Ur Rare /uL Mucous Ur Small NA Squamous Epithelial Cells Ur 5 0 - 20 /uL ED Stat Panel Collection Time: 04/20/23 5:57 PM Result Value Ref Range Temperature, venous 37.0 degrees C Hemoglobin Gases venous 12.9 12.0 - 16.0 g/dl pH Jimmy 7.446 (H) 7.280 - 7.420 NA pCO2, Venous 32.0 (L) 38.0 - 52.0 mm Hg pO2 Venous 62.0 mm Hg HCO3 Venous 21.7 (L) 22.0 - 28.0 mmol/L TCO2 Venous 22.7 (L) 24.0 - 30.0 mmol/L O2 Sat Venous 94.0 % O2 Hgb Jimmy 90.4 % T.Hgb STD BE Venous -1.8 mmol/L Calcium, Ionized WB 4.37 (L) 4.60 - 5.28 mg/dL pH 7.446 7.350 - 7.450 NA Chloride, WB 101 96 - 108 mEq/L Glucose,WB 305 (H) 70 - 99 mg/dl Potassium, WB 3.8 3.3 - 5.1 mEq/L Sodium,WB 134 133 - 145 mEq/L Lactate,WB 1.5 0.5 - 1.6 mmol/L BUN Collection Time: 04/20/23 5:57 PM Result Value Ref Range BUN 10 4 - 19 mg/dL Creatinine, serum Collection Time: 04/20/23 5:57 PM Result Value Ref Range Creatinine 0.46 (L) 0.50 - 1.00 mg/dL Phosphorus Collection Time: 04/20/23 5:57 PM Result Value Ref Range Phosphorus 3.3 2.7 - 4.5 mg/dL eGFR Collection Time: 04/20/23 5:57 PM Result Value Ref Range eGFR see below NA Immunoglobulin A Collection Time: 04/20/23 5:57 PM Result Value Ref Range Immunoglobulin A 215 61 - 348 mg/dL TSH with Reflex to T4, Free Collection Time: 04/20/23 5:57 PM Result Value Ref Range TSH with reflex to T4, Free 0.862 0.500 - 4.300 uIU/mL Vitamin D 25 hydroxy Collection Time: 04/20/23 5:57 PM Result Value Ref Range 25 OH Vitamin D 26 (L) 30 - 100 ng/mL Glucose by meter Collection Time: 04/20/23 5:59 PM Result Value Ref Range Glucose by Meter 303 (H) 70 - 99 mg/dL Glucose by meter Collection Time: 04/20/23 7:06 PM Result Value Ref Range Glucose by Meter 256 (H) 70 - 99 mg/dL Glucose by meter Collection Time: 04/20/23 10:03 PM Result Value Ref Range Glucose by Meter 125 (H) 70 - 99 mg/dL Glucose by meter Collection Time: 04/20/23 11:15 PM Result Value Ref Range Glucose by Meter 103 (H) 70 - 99 mg/dL Ketones Collection Time: 04/20/23 11:56 PM Result Value Ref Range Ketones Ur 2+ (A) Negative mg/dL Glucose by meter Collection Time: 04/21/23 1:21 AM Result Value Ref Range Glucose by Meter 233 (H) 70 - 99 mg/dL Glucose by meter Collection Time: 04/21/23 3:36 AM Result Value Ref Range Glucose by Meter 288 (H) 70 - 99 mg/dL Glucose by meter Collection Time: 04/21/23 5:56 AM Result Value Ref Range Glucose by Meter 301 (H) 70 - 99 mg/dL Ketones Collection Time: 04/21/23 6:09 AM Result Value Ref Range Ketones Ur Negative Negative mg/dL Assessment: Active Problems: Hyperglycemia Catalina Capellan is a 17 y.o. female with history of nephrolithiasis, recurrent UTIs, and eating disorder in remission admitted with hyperglycemia, glucosuria, and ketonuria in the setting of new onsetDiabetes Mellitus, most likely Type 1. The patient is currently clinically stable and requires admission for new onset diabetes education and close clinical monitoring. Plan: Problem Based Plan: Active Problems: Hyperglycemia 1. Type 1 (likely) Diabetes Mellitus new onset Insulin Regimen: Lantus 20 units at bedtime Humalog Carb Coverage: Breakfast: 1 unit for 10 gram carbs Lunch: 1 unit for 10 gram carbs Afternoon snack: 1 unit for 10 gram carbs Dinner: 1 unit for 10 gram carbs Bedtime snack: 1 unit for 10 gram carbs Sensitivity/Correction: Insulin Calculator Day: Sensitivity 50; Target 125 Night: Sensitivity 50; Target 175 Home-going plan: Before meals unless otherwise specified: 1 unit for every 50 above 150 If Blood Glucose is greater or equal to 150 mg/dL add 1 units insulin If Blood Glucose is greater or equal to 200 mg/dL add 2 units insulin If Blood Glucose is greater or equal to 250 mg/dL add 3 units insulin If Blood Glucose is greater or equal to 300 mg/dL add 4 units insulin If Blood Glucose is greater or equal to 350 mg/dL add 5 units insulin If Blood Glucose is greater or equal to 400 mg/dL add 6 units insulin Bedtime: 1 unit for every 50 above 200 If Blood Glucose is greater or equal to 200 mg/dL add 1 units insulin If Blood Glucose is greater or equal to 250 mg/dL add 2 units insulin If Blood Glucose is greater or equal to 300 mg/dL add 3 units insulin If Blood Glucose is greater or equal to 350 mg/dL add 4 units insulin If Blood Glucose is greater or equal to 400 mg/dL add 5 units insulin BG checks: QAC, QHS, and 2 am. Consult: - health promotion educator for new onset DM - Lane Attendant to review carbohydrate counting - Social work for new onset DM - Psychology for new onset DM (patient provided consent) Labs: TSH and IgA labs within normal limits. FU Anti-thyroid peroxidase, transglutaminase, BREN 65, ICA 512, and Zinc Transporter 8 labs. 2. FEN (Fluid, Electrolytes, Nutrition): Carbohydrate controlled diet 3. OTHER: Vitamin D level low - starting vitamin D 1000 units daily this AM. Continue home control patch. They will start a MVI daily at home rather than vitamin D supplement. 4. Disposition: Discharge anticipated in 2-3 days when goals of improved glucose control, education, and appropriate demonstration of diabetes care are completed. Rosendo Castanon, MEDICAL STUDENT YR4 10:14 AM 04/21/2023 Endocrinology Attending I reviewed the history and performed a pertinent physical examination at 9:30am. I agree with the findings described in the note above except for changes as noted by or addition. Management of the patient has been carried out in accordance with my plans. Plan discussed with caregiver(s) and questions addressed. Time spent on the history, physical examination, assessment, plan, and coordination of care for this patient was 80 minutes. We reviewed different types of DM, pathophysiology of T1DM and T2DM, method of treatment, goals of hospitalization, All possible caregivers to be present for education, prognosis, follow-up plans, types of insulin and long-term goals in DM management, honeymoon, diabetes technology-they are very interested in CGM and will let us know if they wish to proceed with Shalini 3 or dexcom. Darian Atkinson MD Required Information: Type 1 Diabetes New Onset Humalog and Lantus Chronic [facility] Plan of care note* Plan of Care - Magi Quiñones RN - 04/21/2023 6:51 AM EDT Problem: Serum Glucose Level - Abnormal Goal: Glucose level within specified parameters Outcome: Ongoing Problem: Transition Readiness Goal: Knowledge of discharge instructions Outcome: Ongoing Goal: Able to safely transition to next level of care Outcome: Ongoing [facility] Emergency department Note* Claudia Haynes RN - 04/20/2023 8:37 PM EDT [facility] contacted at this time for pt transfer. [facility] Emergency department Note* Claudia Haynes RN - 04/20/2023 8:37 PM EDT [facility] contacted at this time for pt transfer. * Claudia Haynes RN - 04/20/2023 7:11 PM EDT Catalina Capellan [id number] Point of Care testing Glucometer: Capillary blood drawn 256 mg/dl Results of < 45 or > 450 mg/dl need to be confirmed by the laboratory REFERENCE RANGE: 60-110 mg/dl. Two identifiers from patient verified. Test performed at bedside. Specimen labelled in the presenceof the patient. * Claudia Haynes RN - 04/20/2023 6:00 PM EDT Catalina Capellan [id number] Point of Care testing Glucometer: Venous blood drawn 303 mg/dl Results of < 45 or > 450 mg/dl need to be confirmed by the laboratory REFERENCE RANGE: 60-110 mg/dl. Two identifiers from patient verified. Test performed at bedside. Specimen labelled in the presenceof the patient. * Roland Dixon MD - 04/20/2023 5:42 PM EDT Images from the original note were not included. Catalina Capellan : 2005 Chief Complaint Patient presents with Hyperglycemia No Known Allergies DOS: 04/20/2023 Catalina Capellan is an 17 y.o. female with history of nephrolithiasis and recurrent UTIs presenting for hyperglycemia. She has had one week of abdominal and back pain. Abdominal pain is diffuse and worse 10-20 minutes after she eats a meal. She had a few days of emesis last week that have since resolved and ongoing loose stools. She presented to [place] ED 5 days ago where she had a UA that showed glucose and ketones. Her blood glucose at that time was 280. Hb A1c was 8.2. She was told to follow up with her PCP. On day of presentation she saw PCP who got UA that showed glucose and ketones and blood glucose was 395. She denies fevers, cough, rhinorrhea, dysuria. Endorses ongoing fatigue, polyuria, polydipsia, and increased appetite. She had 18 kg weight loss since 2019 but weight has stabilized in past year. 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 MGM has type II DM. No known family hx of autoimmune disorders. She follows with Urology for nephrolithiasis. Denied drug or alcohol use. The history is provided by a parent and the patient. Review of Systems Constitutional: Positive for activity change, appetite change and fatigue. Negative for fever. HENT: Negative for congestion. Respiratory: Negative for shortness of breath. Gastrointestinal: Positive for abdominal pain, diarrhea, nausea and vomiting. Genitourinary: Negative for dysuria. Psychiatric/Behavioral: Negative for confusion. Past Medical History: Diagnosis Date Kidney stone Past Surgical History: Procedure Laterality Date KIDNEY STONE SURGERY Pediatric History Patient Parents/Guardians Jairo Bazan (Mother/Guardian) Yuli Capellan (Father) JAIRO BAZAN (Mother/Guardian) MARILIASAMANTHAABBIJUAN F (Father) Other Topics Concern Not on file Social History Narrative Merged History Encounter ED Triage Vitals Date and Time Temp Temp src Pulse Resp BP SpO2 User 04/20/23 1732 37 C (98.6 F) Temporal 111 20 118/81 97 % DRJ Physical Exam Vitals reviewed. Constitutional: General: She is not in acute distress. Appearance: Normal appearance. She is not ill-appearing. HENT: Head: Normocephalic and atraumatic. Nose: Nose normal. Mouth/Throat: Mouth: Mucous membranes are moist. Eyes: Extraocular Movements: Extraocular movements intact. Pupils: Pupils are equal, round, and reactive to light. Cardiovascular: Rate and Rhythm: Normal rate and regular rhythm. Pulses: Normal pulses. Heart sounds: Normal heart sounds. Pulmonary: Effort: Pulmonary effort is normal. Breath sounds: Normal breath sounds. Abdominal: General: Abdomen is flat. Palpations: Abdomen is soft. Tenderness: There is no abdominal tenderness. Skin: General: Skin is warm and dry. Capillary Refill: Capillary refill takes less than 2 seconds. Neurological: Mental Status: She is alert. Procedures Encounter Documentation/Handoff: Diagnosis' considered: hyperglycemia Labs/Radiology: Results for orders placed or performed during the hospital encounter of 04/20/23 (from the past 24 hour(s)) Urinalysis with microscopic Result Value Ref Range Color Ur Colorless NA Character Clear NA Specific gravity 1.014 1.005 - 1.030 NA Leukocyte Esterase Ur 25 Vamshi Negative leuk/ul Nitrites NEGATIVE Negative mg/dl pH Ur 5.5 5.0 - 8.0 NA Hemoglobin Ur 3+ (A) Negative RBC's/uL Protein Ur NEGATIVE Neg.-Trace mg/dL Glucose Ur 4+ (A) Normal mg/dL Ketones Ur 2+ (A) Negative mg/dL Urobilinogen NORMAL Normal mg/dl Bilirubin Ur NEGATIVE Negative mg/dL Volume Ur 12 12 ml , urine Result Value Ref Range HCG,Urine Negative mIU/mL Urinalysis, [facility] [place] Result Value Ref Range WBC UR 31.0 (H) 0.0 - 20.0 /uL RBC, Urine 1603.0 (H) 0.0 - 20.0 /uL Bacteria Ur Rare /uL Mucous Ur Small NA Squamous Epithelial Cells Ur 5 0 - 20 /uL ED Stat Panel Result Value Ref Range Temperature, venous 37.0 degrees C Hemoglobin Gases venous 12.9 12.0 - 16.0 g/dl pH Jimmy 7.446 (H) 7.280 - 7.420 NA pCO2, Venous 32.0 (L) 38.0 - 52.0 mm Hg pO2 Venous 62.0 mm Hg HCO3 Venous 21.7 (L) 22.0 - 28.0 mmol/L TCO2 Venous 22.7 (L) 24.0 - 30.0 mmol/L O2 Sat Venous 94.0 % O2 Hgb Jimmy 90.4 % T.Hgb STD BE Venous -1.8 mmol/L Calcium, Ionized WB 4.37 (L) 4.60 - 5.28 mg/dL pH 7.446 7.350 - 7.450 NA Chloride, WB 101 96 - 108 mEq/L Glucose,WB 305 (H) 70 - 99 mg/dl Potassium, WB 3.8 3.3 - 5.1 mEq/L Sodium,WB 134 133 - 145 mEq/L Lactate,WB 1.5 0.5 - 1.6 mmol/L BUN Result Value Ref Range BUN 10 4 - 19 mg/dL Creatinine, serum Result Value Ref Range Creatinine 0.46 (L) 0.50 - 1.00 mg/dL Phosphorus Result Value Ref Range Phosphorus 3.3 2.7 - 4.5 mg/dL eGFR Result Value Ref Range eGFR see below NA Immunoglobulin A Result Value Ref Range Immunoglobulin A 215 61 - 348 mg/dL TSH with Reflex to T4, Free Result Value Ref Range TSH with reflex to T4, Free 0.862 0.500 - 4.300 uIU/mL Vitamin D 25 hydroxy Result Value Ref Range 25 [place] Vitamin D 26 (L) 30 - 100 ng/mL Glucose by meter Result Value Ref Range Glucose by Meter 303 (H) 70 - 99 mg/dL Glucose by meter Result Value Ref Range Glucose by Meter 256 (H) 70 - 99 mg/dL Consults: No orders of the defined types were placed in this encounter. Treatment/Reassessment: Catalina Capellan is an 17 y.o. female with history of nephrolithiasis and recurrent UTIs presenting for hyperglycemia in the setting of new onset diabetes. She is not in DKA and appears well on exam. She presented after having high blood glucose at PCP's office today. Initial POCT glucose 303. iSTAT s ignificant for pH 7.446, PO2 32.0, HCO3 21.7. UA showed glucose 4+, ketones 2+, and Hb 3 + (menstruating). Gave 10 cc/kg NSB. Discussed with [employer] Qualification Specialist Dr. Atkinson who recommended humalog 1:50 over 150 and starting mIVF NS+20KCl. Ordered new onset diabetes labs. Admitted to endocrinology service for new onset diabetes teaching and blood sugar correction. Medical Decision Making Problems Addressed: Hyperglycemia: complicated acute illness or injury Amount and/or Complexity of Data Reviewed Labs: ordered. Risk OTC drugs. Prescription drug management. Decision regarding hospitalization. Final Clinical Impression/Diagnosis as of 04/22/23 0956 Hyperglycemia Diabetes mellitus, new onset Sakina Logan DO Pediatric Resident, PGY-3 04/20/2023 9:23 PM I reviewed the past medical & surgical histories, medication list, and allergies. I have reviewed the history with the patient & family and performed a pertinent physical examination. Attending exam: Initial impression: Alert, In no respiratory distress, normal perfusion Secondary assessment: Abdomen soft and non-tender, non-distended. I discussed the patient's management with the resident, and management has been carried out in accordance with my plans. Stable for transfer to the floor. I have reviewed the resident's note and agree with the findings described in the note above except where noted with italics. Roland Dixon MD Pediatric Emergency Medicine Attending * Walter Briones RN - 04/20/2023 5:29 PM EDT Presents to ED for Hyperglycemia. Seen by PCP today in office and had a BGT of over 300. Per motherpatient was seen by PCP for follow up appointment from ED visit last Thursday. Mother reports patient was dx with diabetes at [place] ED last Thursday and dint really do anything for it. Patient reports she has had increased fatigue, dizziness, and nausea. Patient reports increased thirst and urination. Urine positive in office for glucose and ketones. Patient otherwise is awake and alert, MMM, warm and well perfused. Ambulates with a steady gait. [facility] History and physical note* Darian Atkinson MD - 04/20/2023 7:20 PM EDT MEDICAL ADMISSION HISTORY AND PHYSICAL Date of Service: 04/21/2023 Attending Provider: Darian Atkinson MD Primary Care Provider: Dian Velez MD Chief Complaint: Hyperglycemia Reason for Hospitalization: Acute or unresolved changes in physiologic status History of Present illness: IP H&P HPI: Catalina is a 17 y.o. female with history of nephrolithiasis and recurrent UTIs who presents with hyperglycemia. She is accompanied by her mother. The history is provided by the patient. 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 The abdominal pain was worse 10-20 minutes after eating a meal. For the past several days, patient has had emesis and loose stools. No emesis since. Additionally, she has been having fatigue, polyuria, polydipsia, and polyphagia over the past couple of weeks. She has had cough and congestion the past couple of days but no fevers. 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 Patient was seen at [place] ED 5days prior to admission because she thought she had UTI or kidney stone, at which time a UA showed glucose and ketones. BGT was 280 at that time, A1C 8.2. She was discharged from the [place] ED and told to follow up with her PCP. On day of presentation, she saw PCP in follow up and repeat UA again showed 3+ ketones and glucose. BGT 395. She was directed to [facility] ED for further management. [facility] ED: Afebrile, tachycardic HR 111, other vitals stable. Initial BGT 395. ED stat panel with pH 7.446, pCO2 32, HCO3 21.7, iCa 4.37, WB glucose 305. UA with 3+ Hb (patient is currently menstruating), 4+ glucose, 2+ ketones, 31 WBC, 1603 RBC. Urine negative. BUN, Cr, phos wnl. Patient given 10 cc/kg NSB. Repeat BGTs 303, 256. Patient discussed with Endocrinology who recommended NS +20 mEq KCl IV fluids, Humalog 1 for 50 > 150, and new onset diabetic labs. Many labs still pending. IgA wnl. TSH 0.862. Vit D 26. She does not take any vitamins or supplements at home. Patient was admitted to the general medical floor on Endocrinology service for further management. On the floor, patient is resting comfortably in bed. Mother is at bedside. Patient states she just feels tired now. When asked about recent illnesses, she reports she had a flu like illness at the end of January. She does report a history of frequent yeast infections. Menstrual cycle is irregular,she is currently menstruating. Patient's maternal great grandmother has type 2 diabetes and maternal grandmother sponge kidney disease. Patient's mom is currently being worked up for psoriatic arthritis. HEEADS Assessment Home: Lives at home with mother and father, feels safe at home Education: Completed high school. 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 Eating: Works throughout the day so eats when she can, usually 1 meal and several small snacks a day, reports thinking about body image not very often Activities: Enjoys hanging out with her boyfriend when not at work Drugs: Vapes nicotine. Denies THC and other drug use. Ocassionally drinks alcohol 1x/month. Safety: Feels safe at home, work, with friends. Sex: Is currently sexually active with boyfriend. Has had 4 past male partners, uses a control patch but infrequently, does not use condoms, no history of STDs, no current concern for STDs, partner does not have STDs Suicidality/Mental Health: Reports mental health to be decent, had a therapist but had to stop when she graduated high school, has had past thoughts of self harm around age 13, no SI (past or current), no HI Confidentiality discussed with teen: yes. Confidentiality discussed with Mother and Patient yes. Review of Systems: Pertinent items are noted in HPI. Medical/Surgical History: Past Medical History: Diagnosis Date Kidney stone Past Surgical History: Procedure Laterality Date KIDNEY STONE SURGERY History: No history on file. Development History: Milestones: Not pertinent Diet History: Age appropriate / normal for age Drug/Food Allergies: No Known Allergies Immunizations: Immunization History Administered Date(s) Administered DTaP 02/25/2005, 04/29/2005, 07/17/2005, 03/31/2006, 01/05/2009 H1N1 2008 Influenza A Monovalent 0.25 mL 05/18/2009 HIB 04/29/2005, 07/17/2005 HPV 9-valent 01/30/2017, 02/05/2018 Hep B/HIB (COMVAX) 02/25/2005, 01/06/2006 Hepatitis A (PED/ADOL) 03/31/2006, 12/29/2006 Hepatitis B Ped/Adol 2004 INFLUENZA SPLIT 0.5 ML 05/18/2009, 04/16/2010 IPV 02/25/2005, 04/29/2005, 03/31/2006, 01/05/2009 Influenza Vaccine 06/02/2006, 07/21/2008 Influenza Vaccine Intranasal 03/21/2011, 03/26/2012 Influenza Vaccine Intranasal Quadrivalent 03/25/2013 MENINGOCOCCAL CONJUGATE ACWY VACCINE (MENACTRA) 01/30/2017, 02/14/2021 MMR 01/06/2006, 01/05/2009 Pneumococcal Conjugate 02/25/2005, 04/29/2005, 07/17/2005, 01/06/2006 Serogroup B Meningococcal Vaccine (BEXSERO) 02/14/2021 Tdap 01/30/2017 Varicella 06/02/2006, 01/05/2009 Medications: Medications Prior to Admission Medication Sig Dispense Refill Last Dose [DISCONTINUED] oxyCODONE-acetaminophen (PERCOCET) 5-325 MG tablet EVERY 6 HOURS Past Month ZAFEMY 150-35 MCG/24HR patch Apply 1 Patch as directed one time a week. 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 Daycare: Child receives care outside of home?: No (04/20/2023 8:54 PM) Alcohol/Drug Use or Exposure: Yes: Patient vapes nicotine, mother smokes outside Smoke Exposure: Exposure to 2nd hand smoke in home/car: No (04/20/2023 8:54 PM) Firearms: No data recorded No Family History Problem Relation Age of Onset Allergies Mother Hypotension Mother not symptomatic on most occasion No known problems Father Kidney Disease Maternal Grandmother Kidney Stones Maternal Grandfather Heart Disease Maternal Grandfather [place] age 54 Vital Signs: Vitals: 04/20/23 2312 BP: (!) 124/93 Pulse: 68 Resp: 16 Temp: 36.1 C (97 F) Physical Exam: General: Awake and alert, no acute distress, resting comfortably in bed, no acute distress, well developed, well nourished HEENT: Normocephalic and atraumatic. PERRL. No ocular discharge, no nasal discharge, multiple nasalpiercings, moist mucous membranes. Cardiac: Regular rhythm, rate appropriate for age. Normal heart sounds. No murmurs, rubs or gallops. Pulses symmetrical, brisk refill. Respiratory: Respirations are easy and non-labored, good air exchange bilaterally. No rales, rhonchi, or wheezes. Abdomen: Abdomen soft, non-tender, and non-distended with normal bowel sounds. Neurologic: Symmetric limb movements, age appropriate response to hands on care. Skin: Skin is warm and dry. Many tattoos to arms and back. Diagnostic Studies Reviewed: Recent Results (from the past 24 hour(s)) POCT Urinalysis Dipstick Collection Time: 04/20/23 2:36 PM Result Value Ref Range POCT, Leukocytes, Urine Negative Negative POCT Nitrite, Urine Negative Negative POCT Protein, Urine Trace Negative - Trace mg/dl POCT Urine,pH 7.0 5.0 - 8.0 POCT Blood, Urine 3+ (Large) (A) Negative POCT Urine Specific [place] 1.010 1.005 - 1.030 POCT Ketones, Urine Moderate (40mg/dL) (A) Negative mg/dl POCT Glucose, Urine *500 mg/dL (2+) (A) Negative mg/dl Glucose by meter Collection Time: 04/20/23 2:48 PM Result Value Ref Range Glucose by Meter 395 (H) 70 - 99 mg/dL Urinalysis with microscopic Collection Time: 04/20/23 5:41 PM Result Value Ref Range Color Ur Colorless NA Character Clear NA Specific gravity 1.014 1.005 - 1.030 NA Leukocyte Esterase Ur 25 Vamshi Negative leuk/ul Nitrites NEGATIVE Negative mg/dl pH Ur 5.5 5.0 - 8.0 NA Hemoglobin Ur 3+ (A) Negative RBC's/uL Protein Ur NEGATIVE Neg.-Trace mg/dL Glucose Ur 4+ (A) Normal mg/dL Ketones Ur 2+ (A) Negative mg/dL Urobilinogen NORMAL Normal mg/dl Bilirubin Ur NEGATIVE Negative mg/dL Volume Ur 12 12 ml , urine Collection Time: 04/20/23 5:41 PM Result Value Ref Range HCG,Urine Negative mIU/mL Urinalysis, Automated[facility] Collection Time: 04/20/23 5:41 PM Result Value Ref Range WBC UR 31.0 (H) 0.0 - 20.0 /uL RBC, Urine 1603.0 (H) 0.0 - 20.0 /uL Bacteria Ur Rare /uL Mucous Ur Small NA Squamous Epithelial Cells Ur 5 0 - 20 /uL ED Stat Panel Collection Time: 04/20/23 5:57 PM Result Value Ref Range Temperature, venous 37.0 degrees C Hemoglobin Gases venous 12.9 12.0 - 16.0 g/dl pH Jimmy 7.446 (H) 7.280 - 7.420 NA pCO2, Venous 32.0 (L) 38.0 - 52.0 mm Hg pO2 Venous 62.0 mm Hg HCO3 Venous 21.7 (L) 22.0 - 28.0 mmol/L TCO2 Venous 22.7 (L) 24.0 - 30.0 mmol/L O2 Sat Venous 94.0 % O2 Hgb Jimmy 90.4 % T.Hgb STD BE Venous -1.8 mmol/L Calcium, Ionized WB 4.37 (L) 4.60 - 5.28 mg/dL pH 7.446 7.350 - 7.450 NA Chloride, WB 101 96 - 108 mEq/L Glucose,WB 305 (H) 70 - 99 mg/dl Potassium, WB 3.8 3.3 - 5.1 mEq/L Sodium,WB 134 133 - 145 mEq/L Lactate,WB 1.5 0.5 - 1.6 mmol/L BUN Collection Time: 04/20/23 5:57 PM Result Value Ref Range BUN 10 4 - 19 mg/dL Creatinine, serum Collection Time: 04/20/23 5:57 PM Result Value Ref Range Creatinine 0.46 (L) 0.50 - 1.00 mg/dL Phosphorus Collection Time: 04/20/23 5:57 PM Result Value Ref Range Phosphorus 3.3 2.7 - 4.5 mg/dL eGFR Collection Time: 04/20/23 5:57 PM Result Value Ref Range eGFR see below NA Immunoglobulin A Collection Time: 04/20/23 5:57 PM Result Value Ref Range Immunoglobulin A 215 61 - 348 mg/dL TSH with Reflex to T4, Free Collection Time: 04/20/23 5:57 PM Result Value Ref Range TSH with reflex to T4, Free 0.862 0.500 - 4.300 uIU/mL Vitamin D 25 hydroxy Collection Time: 04/20/23 5:57 PM Result Value Ref Range 25 OH Vitamin D 26 (L) 30 - 100 ng/mL Glucose by meter Collection Time: 04/20/23 5:59 PM Result Value Ref Range Glucose by Meter 303 (H) 70 - 99 mg/dL Glucose by meter Collection Time: 04/20/23 7:06 PM Result Value Ref Range Glucose by Meter 256 (H) 70 - 99 mg/dL Glucose by meter Collection Time: 04/20/23 10:03 PM Result Value Ref Range Glucose by Meter 125 (H) 70 - 99 mg/dL Glucose by meter Collection Time: 04/20/23 11:15 PM Result Value Ref Range Glucose by Meter 103 (H) 70 - 99 mg/dL Ketones Collection Time: 04/20/23 11:56 PM Result Value Ref Range Ketones Ur 2+ (A) Negative mg/dL No orders to display Assessment: Catalina is a 17 y.o. female with history of nephrolithiasis and recurrent UTIs who presents with hyperglycemia in the setting of new onset likely type 1 diabetes mellitus. She is currently clinically stable on the floor and continues to have ketonuria. She requires hospital admission for correction of hyperglycemia and ketonuria, IV fluid hydration, and new onset diabetes education. Plan: Problem Based Plan: Active Problems: Hyperglycemia 1. Type 1 (likely) Diabetes Mellitus new onset Insulin Regimen: Lantus 20 units at bedtime Humalog Carb Coverage: Breakfast: 1 unit for 10 gram carbs Lunch: 1 unit for 10 gram carbs Afternoon snack: 1 unit for 10 gram carbs Dinner: 1 unit for 10gram carbs Bedtime snack: 1 unit for 10 gram carbs Sensitivity/Correction: Insulin Calculator Day: Sensitivity 50 ; Target 125 Night: Sensitivity 50; Target 125 --> 175 when ketones trace/clear Home-going plan: Before meals unless otherwise specified: 1 unit for every 50 above 150 If Blood Glucose is greater or equal to 150 mg/dL add 1 units insulin If Blood Glucose is greater or equal to 200 mg/dL add 2 units insulin If Blood Glucose is greater or equal to 250 mg/dL add 3 units insulin If Blood Glucose is greater or equal to 300 mg/dL add 4 units insulin If Blood Glucose is greater or equal to 350 mg/dL add 5 units insulin If Blood Glucose is greater or equal to 400 mg/dL add 6 units insulin If Blood Glucose is greater or equal to 450 mg/dL add 7 units insulin Bedtime: 1 unit for every 50 above 200 If Blood Glucose is greater or equal to 200 mg/dL add 1 units insulin If Blood Glucose is greater or equal to 250 mg/dL add 2 units insulin If Blood Glucose is greater or equal to 300 mg/dL add 3 units insulin If Blood Glucose is greater or equal to 350 mg/dL add 4 units insulin If Blood Glucose is greater or equal to 400 mg/dL add 5 units insulin If Blood Glucose is greater or equal to 450 mg/dL add 6 units insulin If Blood Glucose is greater or equal to 500 mg/dL add 7 units insulin BG checks: Every two hours with correction until ketones are trace or less, then transition to QA,QHS, and 2 am. Consult: - health promotion educator for new onset DM - Lane Attendant to review carbohydrate counting - Social work for new onset DM - Psychology for new onset DM (patient provided consent) Labs: IgA levels with transglutaminase IgA will be obtained (other new onset labs drawn in ED) 2. FEN (Fluid, Electrolytes, Nutrition): On IVF of what type and rate? NS + 20 mEq at 1x maintenance. If BGT less than 200-250, change to D5NS 1/2NS + 20 mEq at 1x maintenance. Carbohydrate controlled diet 3. OTHER: Vitamin D level low - Will start vitamin D 1000 units daily in the AM. 4. Disposition: Discharge anticipated in 2-3 days when goals of improved glucose control, education, and appropriate demonstration of diabetes care are completed. Education: Discussion with parent/patient (diagnosis, plan) Discharge Planning: Anticipate discharge home in 24-48 hours, depending on clinical status Signed: Charo Cardenas DO Pediatric Resident PGY-3 04/21/2023 12:32 AM The residents discussed this patient with me via telephone evening of 04/20/23 as I was the on callphysician for endocrinology. I agree with the above outlined plan of care except as noted by or addition. I did NOT personally perform an H&P of this patient until 04/21/23. See daily progress note 04/21/23. Dr. Atkinson [facility]10-23-2023 History and physical note* Darian Atkinson MD - 04/20/2023 7:20 PM EDT MEDICAL ADMISSION HISTORY AND PHYSICAL Date of Service: 04/21/2023 Attending Provider: Darian Atkinson MD Primary Care Provider: Dian Velez MD Chief Complaint: Hyperglycemia Reason for Hospitalization: Acute or unresolved changes in physiologic status History of Present illness: IP H&P HPI: Catalina is a 17 y.o. female with history of nephrolithiasis and recurrent UTIs who presents with hyperglycemia. She is accompanied by her mother. The history is provided by the patient. 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 The abdominal pain was worse 10-20 minutes after eating a meal. For the past several days, patient has had emesis and loose stools. No emesis since. Additionally, she has been having fatigue, polyuria, polydipsia, and polyphagia over the past couple of weeks. She has had cough and congestion the past couple of days but no fevers. 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 Patient was seen at [place] [facility] 5days prior to admission because she thought she had UTI or kidney stone, at which time a UA showed glucose and ketones. BGT was 280 at that time, A1C 8.2. She was discharged from the [place] ED and told to follow up with her PCP. On day of presentation, she saw PCP in follow up and repeat UA again showed 3+ ketones and glucose. BGT 395. She was directed to [facility] ED for further management. [facility] ED: Afebrile, tachycardic HR 111, other vitals stable. Initial BGT 395. ED stat panel with pH 7.446, pCO2 32, HCO3 21.7, iCa 4.37, WB glucose 305. UA with 3+ Hb (patient is currently menstruating), 4+ glucose, 2+ ketones, 31 WBC, 1603 RBC. Urine negative. BUN, Cr, phos wnl. Patient given 10 cc/kg NSB. Repeat BGTs 303, 256. Patient discussed with Endocrinology who recommended NS +20 mEq KCl IV fluids, Humalog 1 for 50 > 150, and new onset diabetic labs. Many labs still pending. IgA wnl. TSH 0.862. Vit D 26. She does not take any vitamins or supplements at home. Patient was admitted to the general medical floor on Endocrinology service for further management. On the floor, patient is resting comfortably in bed. Mother is at bedside. Patient states she just feels tired now. When asked about recent illnesses, she reports she had a flu like illness at the end of January. She does report a history of frequent yeast infections. Menstrual cycle is irregular,she is currently menstruating. Patient's maternal great grandmother has type 2 diabetes and maternal grandmother sponge kidney disease. Patient's mom is currently being worked up for psoriatic arthritis. [facility] Assessment Home: Lives at home with mother and father, feels safe at home Education: Completed high school. 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 Eating: Works throughout the day so eats when she can, usually 1 meal and several small snacks a day, reports thinking about body image not very often Activities: Enjoys hanging out with her boyfriend when not at work Drugs: Vapes nicotine. Denies THC and other drug use. Ocassionally drinks alcohol 1x/month. Safety: Feels safe at home, work, with friends. Sex: Is currently sexually active with boyfriend. Has had 4 past male partners, uses a control patch but infrequently, does not use condoms, no history of STDs, no current concern for STDs, partner does not have STDs Suicidality/Mental Health: Reports mental health to be decent, had a therapist but had to stop when she graduated high school, has had past thoughts of self harm around age 13, no SI (past or current), no HI Confidentiality discussed with teen: yes. Confidentiality discussed with Mother and Patient yes. Review of Systems: Pertinent items are noted in HPI. Medical/Surgical History: Past Medical History: Diagnosis Date Kidney stone Past Surgical History: Procedure Laterality Date KIDNEY STONE SURGERY History: No history on file. Development History: Milestones: Not pertinent Diet History: Age appropriate / normal for age Drug/Food Allergies: No Known Allergies Immunizations: Immunization History Administered Date(s) Administered DTaP 02/25/2005, 04/29/2005, 07/17/2005, 03/31/2006, 01/05/2009 H1N1 2009 Influenza A Monovalent 0.25 mL 05/18/2009 HIB 04/29/2005, 07/17/2005 HPV 9-valent 01/30/2017, 02/05/2018 Hep B/HIB (COMVAX) 02/25/2005, 01/06/2006 Hepatitis A (PED/ADOL) 03/31/2006, 12/29/2006 Hepatitis B Ped/Adol 2004 INFLUENZA SPLIT 0.5 ML 05/18/2009, 04/16/2010 IPV 02/25/2005, 04/29/2005, 03/31/2006, 01/05/2009 Influenza Vaccine 06/02/2006, 07/21/2008 Influenza Vaccine Intranasal 03/21/2011, 03/26/2012 Influenza Vaccine Intranasal Quadrivalent 03/25/2013 MENINGOCOCCAL CONJUGATE ACWY VACCINE (MENACTRA) 01/30/2017, 02/14/2021 MMR 01/06/2006, 01/05/2009 Pneumococcal Conjugate 02/25/2005, 04/29/2005, 07/17/2005, 01/06/2006 Serogroup B Meningococcal Vaccine (BEXSERO) 02/14/2021 Tdap 01/30/2017 Varicella 06/02/2006, 01/05/2009 Medications: Medications Prior to Admission Medication Sig Dispense Refill Last Dose [DISCONTINUED] oxyCODONE-acetaminophen (PERCOCET) 5-325 MG tablet EVERY 6 HOURS Past Month ZAFEMY 150-35 MCG/24HR patch Apply 1 Patch as directed one time a week. 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 Daycare: Child receives care outside of home?: No (04/20/2023 8:54 PM) Alcohol/Drug Use or Exposure: Yes: Patient vapes nicotine, mother smokes outside Smoke Exposure: Exposure to 2nd hand smoke in home/car: No (04/20/2023 8:54 PM) Firearms: No data recorded No Family History Problem Relation Age of Onset Allergies Mother Hypotension Mother not symptomatic on most occasion No known problems Father Kidney Disease Maternal Grandmother Kidney Stones Maternal Grandfather Heart Disease Maternal Grandfather IA age 54 Vital Signs: Vitals: 04/20/23 2312 BP: (!) 124/93 Pulse: 68 Resp: 16 Temp: 36.1 C (97 F) Physical Exam: General: Awake and alert, no acute distress, resting comfortably in bed, no acute distress, well developed, well nourished HEENT: Normocephalic and atraumatic. PERRL. No ocular discharge, no nasal discharge, multiple nasalpiercings, moist mucous membranes. Cardiac: Regular rhythm, rate appropriate for age. Normal heart sounds. No murmurs, rubs or gallops. Pulses symmetrical, brisk refill. Respiratory: Respirations are easy and non-labored, good air exchange bilaterally. No rales, rhonchi, or wheezes. Abdomen: Abdomen soft, non-tender, and non-distended with normal bowel sounds. Neurologic: Symmetric limb movements, age appropriate response to hands on care. Skin: Skin is warm and dry. Many tattoos to arms and back. Diagnostic Studies Reviewed: Recent Results (from the past 24 hour(s)) POCT Urinalysis Dipstick Collection Time: 04/20/23 2:36 PM Result Value Ref Range POCT, Leukocytes, Urine Negative Negative POCT Nitrite, Urine Negative Negative POCT Protein, Urine Trace Negative - Trace mg/dl POCT Urine,pH 7.0 5.0 - 8.0 POCT Blood, Urine 3+ (Large) (A) Negative POCT Urine Specific Hanson 1.010 1.005 - 1.030 POCT Ketones, Urine Moderate (40mg/dL) (A) Negative mg/dl POCT Glucose, Urine *500 mg/dL (2+) (A) Negative mg/dl Glucose by meter Collection Time: 04/20/23 2:48 PM Result Value Ref Range Glucose by Meter 395 (H) 70 - 99 mg/dL Urinalysis with microscopic Collection Time: 04/20/23 5:41 PM Result Value Ref Range Color Ur Colorless NA Character Clear NA Specific gravity 1.014 1.005 - 1.030 NA Leukocyte Esterase Ur 25 Vamshi Negative leuk/ul Nitrites NEGATIVE Negative mg/dl pH Ur 5.5 5.0 - 8.0 NA Hemoglobin Ur 3+ (A) Negative RBC's/uL Protein Ur NEGATIVE Neg.-Trace mg/dL Glucose Ur 4+ (A) Normal mg/dL Ketones Ur 2+ (A) Negative mg/dL Urobilinogen NORMAL Normal mg/dl Bilirubin Ur NEGATIVE Negative mg/dL Volume Ur 12 12 ml , urine Collection Time: 04/20/23 5:41 PM Result Value Ref Range HCG,Urine Negative mIU/mL Urinalysis, [facility] Collection Time: 04/20/23 5:41 PM Result Value Ref Range WBC UR 31.0 (H) 0.0 - 20.0 /uL RBC, Urine 1603.0 (H) 0.0 - 20.0 /uL Bacteria Ur Rare /uL Mucous Ur Small NA Squamous Epithelial Cells Ur 5 0 - 20 /uL ED Stat Panel Collection Time: 04/20/23 5:57 PM Result Value Ref Range Temperature, venous 37.0 degrees C Hemoglobin Gases venous 12.9 12.0 - 16.0 g/dl pH Jimmy 7.446 (H) 7.280 - 7.420 NA pCO2, Venous 32.0 (L) 38.0 - 52.0 mm Hg pO2 Venous 62.0 mm Hg HCO3 Venous 21.7 (L) 22.0 - 28.0 mmol/L TCO2 Venous 22.7 (L) 24.0 - 30.0 mmol/L O2 Sat Venous 94.0 % O2 Hgb Jimmy 90.4 % T.Hgb STD BE Venous -1.8 mmol/L Calcium, Ionized WB 4.37 (L) 4.60 - 5.28 mg/dL pH 7.446 7.350 - 7.450 NA Chloride, WB 101 96 - 108 mEq/L Glucose,WB 305 (H) 70 - 99 mg/dl Potassium, WB 3.8 3.3 - 5.1 mEq/L Sodium,WB 134 133 - 145 mEq/L Lactate,WB 1.5 0.5 - 1.6 mmol/L BUN Collection Time: 04/20/23 5:57 PM Result Value Ref Range BUN 10 4 - 19 mg/dL Creatinine, serum Collection Time: 04/20/23 5:57 PM Result Value Ref Range Creatinine 0.46 (L) 0.50 - 1.00 mg/dL Phosphorus Collection Time: 04/20/23 5:57 PM Result Value Ref Range Phosphorus 3.3 2.7 - 4.5 mg/dL eGFR Collection Time: 04/20/23 5:57 PM Result Value Ref Range eGFR see below NA Immunoglobulin A Collection Time: 04/20/23 5:57 PM Result Value Ref Range Immunoglobulin A 215 61 - 348 mg/dL TSH with Reflex to T4, Free Collection Time: 04/20/23 5:57 PM Result Value Ref Range TSH with reflex to T4, Free 0.862 0.500 - 4.300 uIU/mL Vitamin D 25 hydroxy Collection Time: 04/20/23 5:57 PM Result Value Ref Range 25 OH Vitamin D 26 (L) 30 - 100 ng/mL Glucose by meter Collection Time: 04/20/23 5:59 PM Result Value Ref Range Glucose by Meter 303 (H) 70 - 99 mg/dL Glucose by meter Collection Time: 04/20/23 7:06 PM Result Value Ref Range Glucose by Meter 256 (H) 70 - 99 mg/dL Glucose by meter Collection Time: 04/20/23 10:03 PM Result Value Ref Range Glucose by Meter 125 (H) 70 - 99 mg/dL Glucose by meter Collection Time: 04/20/23 11:15 PM Result Value Ref Range Glucose by Meter 103 (H) 70 - 99 mg/dL Ketones Collection Time: 04/20/23 11:56 PM Result Value Ref Range Ketones Ur 2+ (A) Negative mg/dL No orders to display Assessment: Catalina is a 17 y.o. female with history of nephrolithiasis and recurrent UTIs who presents with hyperglycemia in the setting of new onset likely type 1 diabetes mellitus. She is currently clinically stable on the floor and continues to have ketonuria. She requires hospital admission for correction of hyperglycemia and ketonuria, IV fluid hydration, and new onset diabetes education. Plan: Problem Based Plan: Active Problems: Hyperglycemia 1. Type 1 (likely) Diabetes Mellitus new onset Insulin Regimen: Lantus 20 units at bedtime Humalog Carb Coverage: Breakfast: 1 unit for 10 gram carbs Lunch: 1 unit for 10 gram carbs Afternoon snack: 1 unit for 10 gram carbs Dinner: 1 unit for 10gram carbs Bedtime snack: 1 unit for 10 gram carbs Sensitivity/Correction: Insulin Calculator Day: Sensitivity 50 ; Target 125 Night: Sensitivity 50; Target 125 --> 175 when ketones trace/clear Home-going plan: Before meals unless otherwise specified: 1 unit for every 50 above 150 If Blood Glucose is greater or equal to 150 mg/dL add 1 units insulin If Blood Glucose is greater or equal to 200 mg/dL add 2 units insulin If Blood Glucose is greater or equal to 250 mg/dL add 3 units insulin If Blood Glucose is greater or equal to 300 mg/dL add 4 units insulin If Blood Glucose is greater or equal to 350 mg/dL add 5 units insulin If Blood Glucose is greater or equal to 400 mg/dL add 6 units insulin If Blood Glucose is greater or equal to 450 mg/dL add 7 units insulin Bedtime: 1 unit for every 50 above 200 If Blood Glucose is greater or equal to 200 mg/dL add 1 units insulin If Blood Glucose is greater or equal to 250 mg/dL add 2 units insulin If Blood Glucose is greater or equal to 300 mg/dL add 3 units insulin If Blood Glucose is greater or equal to 350 mg/dL add 4 units insulin If Blood Glucose is greater or equal to 400 mg/dL add 5 units insulin If Blood Glucose is greater or equal to 450 mg/dL add 6 units insulin If Blood Glucose is greater or equal to 500 mg/dL add 7 units insulin BG checks: Every two hours with correction until ketones are trace or less, then transition to QAC,QHS, and 2 am. Consult: - health promotion educator for new onset DM - Lane Attendant to review carbohydrate counting - Social work for new onset DM - Psychology for new onset DM (patient provided consent) Labs: IgA levels with transglutaminase IgA will be obtained (other new onset labs drawn in ED) 2. FEN (Fluid, Electrolytes, Nutrition): On IVF of what type and rate? NS + 20 mEq at 1x maintenance. If BGT less than 200-250, change to D5NS 1/2NS + 20 mEq at 1x maintenance. Carbohydrate controlled diet 3. OTHER: Vitamin D level low - Will start vitamin D 1000 units daily in the AM. 4. Disposition: Discharge anticipated in 2-3 days when goals of improved glucose control, education, and appropriate demonstration of diabetes care are completed. Education: Discussion with parent/patient (diagnosis, plan) Discharge Planning: Anticipate discharge home in 24-48 hours, depending on clinical status Signed: Charo Cardenas DO Pediatric Resident PGY-3 04/21/2023 12:32 AM The residents discussed this patient with me via telephone evening of 04/20/23 as I was the on callphysician for endocrinology. I agree with the above outlined plan of care except as noted by or addition. I did NOT personally perform an H&P of this patient until 04/21/23. See daily progress note 04/21/23. Dr. Atkinson [facility] Note* Claudia Haynes RN - 04/20/2023 7:11 PM EDT Catalina Capellan [id number] Point of Care testing Glucometer: Capillary blood drawn 256 mg/dl Results of < 45 or > 450 mg/dl need to be confirmed by the laboratory REFERENCE RANGE: 60-110 mg/dl. Two identifiers from patient verified. Test performed at bedside. Specimen labelled in the presenceof the patient. [facility]10[facility] Emergency department Note* Claudia Haynes RN - 04/20/2023 6:00 PM EDT Catalina Capellan [id number] Point of Care testing Glucometer: Venous blood drawn 303 mg/dl Results of < 45 or > 450 mg/dl need to be confirmed by the laboratory REFERENCE RANGE: 60-110 mg/dl. Two identifiers from patient verified. Test performed at bedside. Specimen labelled in the presenceof the patient. [facility]10-23-[facility]23 Physician Emergency department Note* Roland Dixon MD - 04/20/2023 5:42 PM EDT Images from the original note were not included. Catalina Capellan : 2005 Chief Complaint Patient presents with Hyperglycemia No Known Allergies DOS: 04/20/2023 Catalina Capellan is an 17 y.o. female with history of nephrolithiasis and recurrent UTIs presenting for hyperglycemia. She has had one week of abdominal and back pain. Abdominal pain is diffuse and worse 10-20 minutes after she eats a meal. She had a few days of emesis last week that have since resolved and ongoing loose stools. She presented to [place] ED 5 days ago where she had a UA that showed glucose and ketones. Her blood glucose at that time was 280. Hb A1c was 8.2. She was told to follow up with her PCP. On day of presentation she saw PCP who got UA that showed glucose and ketones and blood glucose was 395. She denies fevers, cough, rhinorrhea, dysuria. Endorses ongoing fatigue, polyuria, polydipsia, and increased appetite. She had 18 kg weight loss since 2019 but weight has stabilized in past year. 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 ANGELICA has type II DM. No known family hx of autoimmune disorders. She follows with Urology for nephrolithiasis. Denied drug or alcohol use. The history is provided by a parent and the patient. Review of Systems Constitutional: Positive for activity change, appetite change and fatigue. Negative for fever. HENT: Negative for congestion. Respiratory: Negative for shortness of breath. Gastrointestinal: Positive for abdominal pain, diarrhea, nausea and vomiting. Genitourinary: Negative for dysuria. Psychiatric/Behavioral: Negative for confusion. Past Medical History: Diagnosis Date Kidney stone Past Surgical History: Procedure Laterality Date KIDNEY STONE SURGERY Pediatric History Patient Parents/Guardians Jairo Bazan (Mother/Guardian) Yuli Capellan (Father) JAIRO BAZAN (Mother/Guardian) MARILIAYULI (Father) Other Topics Concern Not on file Social History Narrative Merged History Encounter ED Triage Vitals Date and Time Temp Temp src Pulse Resp BP SpO2 User 04/20/23 1732 37 C (98.6 F) Temporal 111 20 118/81 97 % DRJ Physical Exam Vitals reviewed. Constitutional: General: She is not in acute distress. Appearance: Normal appearance. She is not ill-appearing. HENT: Head: Normocephalic and atraumatic. Nose: Nose normal. Mouth/Throat: Mouth: Mucous membranes are moist. Eyes: Extraocular Movements: Extraocular movements intact. Pupils: Pupils are equal, round, and reactive to light. Cardiovascular: Rate and Rhythm: Normal rate and regular rhythm. Pulses: Normal pulses. Heart sounds: Normal heart sounds. Pulmonary: Effort: Pulmonary effort is normal. Breath sounds: Normal breath sounds. Abdominal: General: Abdomen is flat. Palpations: Abdomen is soft. Tenderness: There is no abdominal tenderness. Skin: General: Skin is warm and dry. Capillary Refill: Capillary refill takes less than 2 seconds. Neurological: Mental Status: She is alert. Procedures Encounter Documentation/Handoff: Diagnosis' considered: hyperglycemia Labs/Radiology: Results for orders placed or performed during the hospital encounter of 04/20/23 (from the past 24 hour(s)) Urinalysis with microscopic Result Value Ref Range Color Ur Colorless NA Character Clear NA Specific gravity 1.014 1.005 - 1.030 NA Leukocyte Esterase Ur 25 Vamshi Negative leuk/ul Nitrites NEGATIVE Negative mg/dl pH Ur 5.5 5.0 - 8.0 NA Hemoglobin Ur 3+ (A) Negative RBC's/uL Protein Ur NEGATIVE Neg.-Trace mg/dL Glucose Ur 4+ (A) Normal mg/dL Ketones Ur 2+ (A) Negative mg/dL Urobilinogen NORMAL Normal mg/dl Bilirubin Ur NEGATIVE Negative mg/dL Volume Ur 12 12 ml , urine Result Value Ref Range HCG,Urine Negative mIU/mL Urinalysis, Automated-[place] Result Value Ref Range WBC UR 31.0 (H) 0.0 - 20.0 /uL RBC, Urine 1603.0 (H) 0.0 - 20.0 /uL Bacteria Ur Rare /uL Mucous Ur Small NA Squamous Epithelial Cells Ur 5 0 - 20 /uL ED Stat Panel Result Value Ref Range Temperature, venous 37.0 degrees C Hemoglobin Gases venous 12.9 12.0 - 16.0 g/dl pH Jimmy 7.446 (H) 7.280 - 7.420 NA pCO2, Venous 32.0 (L) 38.0 - 52.0 mm Hg pO2 Venous 62.0 mm Hg HCO3 Venous 21.7 (L) 22.0 - 28.0 mmol/L TCO2 Venous 22.7 (L) 24.0 - 30.0 mmol/L O2 Sat Venous 94.0 % O2 Hgb Jimmy 90.4 % T.Hgb STD BE Venous -1.8 mmol/L Calcium, Ionized WB 4.37 (L) 4.60 - 5.28 mg/dL pH 7.446 7.350 - 7.450 NA Chloride, WB 101 96 - 108 mEq/L Glucose,WB 305 (H) 70 - 99 mg/dl Potassium, WB 3.8 3.3 - 5.1 mEq/L Sodium,WB 134 133 - 145 mEq/L Lactate,WB 1.5 0.5 - 1.6 mmol/L BUN Result Value Ref Range BUN 10 4 - 19 mg/dL Creatinine, serum Result Value Ref Range Creatinine 0.46 (L) 0.50 - 1.00 mg/dL Phosphorus Result Value Ref Range Phosphorus 3.3 2.7 - 4.5 mg/dL eGFR Result Value Ref Range eGFR see below NA Immunoglobulin A Result Value Ref Range Immunoglobulin A 215 61 - 348 mg/dL TSH with Reflex to T4, Free Result Value Ref Range TSH with reflex to T4, Free 0.862 0.500 - 4.300 uIU/mL Vitamin D 25 hydroxy Result Value Ref Range 25 OH Vitamin D 26 (L) 30 - 100 ng/mL Glucose by meter Result Value Ref Range Glucose by Meter 303 (H) 70 - 99 mg/dL Glucose by meter Result Value Ref Range Glucose by Meter 256 (H) 70 - 99 mg/dL Consults: No orders of the defined types were placed in this encounter. Treatment/Reassessment: Catalina Capellan is an 17 y.o. female with history of nephrolithiasis and recurrent UTIs presenting for hyperglycemia in the setting of new onset diabetes. She is not in DKA and appears well on exam. She presented after having high blood glucose at PCP's office today. Initial POCT glucose 303. iSTAT s ignificant for pH 7.446, PO2 32.0, HCO3 21.7. UA showed glucose 4+, ketones 2+, and Hb 3 + (menstruating). Gave 10 cc/kg NSB. Discussed with [employer] Specialist Dr. Atkinson who recommended humalog 1:50 over 150 and starting mIVF NS+20KCl. Ordered new onset diabetes labs. Admitted to endocrinology service for new onset diabetes teaching and blood sugar correction. Medical Decision Making Problems Addressed: Hyperglycemia: complicated acute illness or injury Amount and/or Complexity of Data Reviewed Labs: ordered. Risk OTC drugs. Prescription drug management. Decision regarding hospitalization. Final Clinical Impression/Diagnosis as of 04/22/23 0956 Hyperglycemia Diabetes mellitus, new onset Sakina Logan DO Pediatric Resident, PGY-3 04/20/2023 9:23 PM I reviewed the past medical & surgical histories, medication list, and allergies. I have reviewed the history with the patient & family and performed a pertinent physical examination. Attending exam: Initial impression: Alert, In no respiratory distress, normal perfusion Secondary assessment: Abdomen soft and non-tender, non-distended. I discussed the patient's management with the resident, and management has been carried out in accordance with my plans. Stable for transfer to the floor. I have reviewed the resident's note and agree with the findings described in the note above except where noted with italics. Roland Dixon MD Pediatric Emergency Medicine Attending [facility] Work Phone: [phone] Emergency department Triage note* Walter Briones RN - 04/20/2023 5:29 PM EDT Presents to ED for Hyperglycemia. Seen by PCP today in office and had a BGT of over 300. Per motherpatient was seen by PCP for follow up appointment from ED visit last Thursday. Mother reports patient was dx with diabetes at [place] ED last Thursday and dint really do anything for it. Patient reports she has had increased fatigue, dizziness, and nausea. Patient reports increased thirst and urination. Urine positive in office for glucose and ketones. Patient otherwise is awake and alert, MMM, warm and well perfused. Ambulates with a steady gait. [facility]10-18-2023 Miscellaneous Notes* Telephone Encounter - Melinda Oneill APRN.CNP - 04/15/2023 6:04 PM EDT I advised patient of her elevated Hgb A1C. She had called her PCP who advised her to go to ER for treatment of her elevated blood sugar. She is going to call her PCP Thursday for follow up care. Labs done here were faxed to PCP. Melinda Oneill APRN.CNP * Telephone Encounter - Melinda Oneill APRN.CNP - 04/15/2023 5:53 PM EDT I attempted to reach patient to advise of lab results (Hgb A1C. No answer, left message. If patientreturns call please have her speak to a provider. Melinda Oneill APRN.CNP * Telephone Encounter - Melinda Oneill APRN.CNP - 04/15/2023 10:36 AM EDT Patient identified by name and date of . I reviewed test results with patient. I have ordered a Hgb A1C. I suspect patient is diabetic. She is advised to replace sodium with salty foods and/or gatorade/powerade. She should see her PCP for an appointment as soon as possible to manage blood sugars. I will call with Hgb A1C results when available. Melinda Oneill APRN.COOPERATIVE MANAGER documented in this encounterWex[facility] Center10-18-2023 Miscellaneous Notes* Addendum Note - Melinda Oneill APRN.CNP - 04/15/2023 10:36 AM EDT Addended by: MELINDA ONEILL on: 04/15/2023 10:36 AM Modules accepted: Orders documented in this encounterWexner Medical Center10-18-2023 History of Present illness Narrative* Melinda Oneill APRN.CNP - 04/15/2023 9:16 AM EDT Subjective HPI Catalina Capellan is a 17 year old female who presents with urinary frequency and urgency for the past 2 days. She has also had nausea and vomiting. She has some abdominal pain today. She thinks shemay have had a fever yesterday. She denies any known sick contacts. She has not taken any medication at home for her symptoms. Review of Systems Constitutional: Positive for malaise/fatigue. Negative for chills and fever. HENT: Negative for congestion and sore throat. Respiratory: Negative for cough. Cardiovascular: Negative. Gastrointestinal: Positive for abdominal pain, nausea and vomiting. Negative for diarrhea. Genitourinary: Positive for frequency and urgency. Negative for flank pain and hematuria. Musculoskeletal: Negative for back pain. BP 128/82 Pulse 98 Temp 36.3 C (97.4 F) (Tympanic) Resp 18 Wt 63.7 kg (140 lb 6.4 oz) LMP10/14/2022 (Within Days) SpO2 99% PAST MEDICAL HISTORY Diagnosis Date Constipated Eczema PAST SURGICAL HISTORY Procedure Laterality Date CYSTOSCOPY,INSERT URETHRAL STENT EGD LITHROTRIPSY ALLERGIES Patient has no known allergies. MEDICATIONS Ethinyl Estradiol-Norelgestrom (XULANE) 150-35 mcg/24 hr patch Apply 1 Patch as directed one time aweek. loratadine (CLARITIN) 10 mg tablet Take 10 mg by mouth. promethazine (PHENERGAN) 25 mg tablet Take 1 tablet by mouth every 6 hours as needed. fluconazole (DIFLUCAN) 150 mg tablet Take 1 tablet by mouth once daily for 1 day. fluconazole (DIFLUCAN) 150 mg tablet Take 1 tablet by mouth one time only for 1 dose. triamcinolone acetonide (KENALOG) 0.1 % ointment Apply to affected area twice daily. For up to 2 weeks (Patient not taking: Reported on 04/15/2023) LIDOCAINE VISCOUS 2 % solution Take 5-10 mL by mouth three times daily as needed. (Patient not taking: Reported on 07/30/2022) escitalopram oxalate (LEXAPRO) 10 mg tablet Take 10 mg by mouth daily at bedtime. (Patient not taking: Reported on 04/15/2023) FLUoxetine (PROZAC) 20 mg capsule Take 20 mg by mouth. (Patient not taking: Reported on 04/08/2022) Bifidobacterium Infantis (ALIGN) 4 mg cap Take by mouth. (Patient not taking: Reported on 05/05/2022) cyproheptadine (PERIACTIN) 4 mg tablet Take 4 mg by mouth. (Patient not taking: Reported on 01/03/2022 ) ergocalciferol 50,000 unit capsule (VITAMIN D2, DRISDOL) Take by mouth. (Patient not taking: Reported on 05/05/2022) fluticasone (FLONASE) 50 mcg/actuation nasal spray Use 1 [place] in the nose. (Patient not taking: Reported on 08/02/2021 ) FAMILY HISTORY Problem Relation Age of Onset Hypertension Maternal Grandfather Heart Attack Maternal Grandfather GI Maternal Grandmother other (Sponge Kidney) Maternal Grandmother other (Hysterectomy) Mother other (Other) Father Unknown Social History Tobacco Use Smoking status: Never Smokeless tobacco: Never Substance Use Topics Alcohol use: Never Drug use: Never Objective Physical Exam Vitals and nursing note reviewed. Constitutional: General: She is not in acute distress. Appearance: Normal appearance. She is ill-appearing. Cardiovascular: Rate and Rhythm: Normal rate and regular rhythm. Heart sounds: Normal heart sounds. Pulmonary: Effort: Pulmonary effort is normal. No respiratory distress. Breath sounds: Normal breath sounds. No wheezing or rales. Abdominal: General: There is no distension. Palpations: Abdomen is soft. There is no mass. Tenderness: There is generalized abdominal tenderness. There is no right CVA tenderness, left CVA tenderness or guarding. Skin: General: Skin is warm and dry. Neurological: Mental Status: She is alert. ASSESSMENT/PLAN: 1. Urinary frequency - ICD9: 788.41, ICD10: R35.0 (primary diagnosis) acute - UA positive for hematuria, proteinuria, and ketones, bilirubin and glucose. - Send urine for culture - UA DIP, URINE (POC) - URINE CULTURE - URINALYSIS, WITH MICROSCOPIC - Specific gravity is 1.030-increase fluid intake. 2. Nausea and vomiting, unspecified vomiting type - ICD9: 787.01, ICD10: R11.2 - CBC + DIFF - COMP METABOLIC PANEL - HCG QUAL UR B/O-negative in office. - PROMETHAZINE 25 MG TABLET - Follow-up with your PCP in 3-5 days if symptoms have not improved or sooner if symptoms worsen - Discussed red flags and need for immediate medical evaluation if any occur. - Discussed supportive care treatment with fluids, rest and analgesia. - Discussed expected course of illness Melinda Oneill APRN.CNP documented in this encounterWexner Medical Center10-18-2023 Instructions* Patient Instructions* Melinda Oneill APRN.CNP - 04/15/2023 9:10 AM EDT ASSESSMENT/PLAN: 1. Urinary frequency - ICD9: 788.41, ICD10: R35.0 (primary diagnosis) acute - UA positive for hematuria, proteinuria, and ketones, bilirubin and glucose. - Send urine for culture - UA DIP, URINE (POC) - URINE CULTURE - URINALYSIS, WITH MICROSCOPIC - Specific gravity is 1.030-increase fluid intake. 2. Nausea and vomiting, unspecified vomiting type - ICD9: 787.01, ICD10: R11.2 - CBC + DIFF - COMP METABOLIC PANEL - HCG QUAL UR B/O-negative in office. - PROMETHAZINE 25 MG TABLET - Follow-up with your PCP in 3-5 days if symptoms have not improved or sooner if symptoms worsen - Discussed red flags and need for immediate medical evaluation if any occur. - Discussed supportive care treatment with fluids, rest and analgesia. - Discussed expected course of illness Melinda Oneill APRN.COOPERATIVE MANAGER documented in this encounterWexner Medical Center08-21-2023 Miscellaneous Notes* Telephone Encounter - Fazal Sánchez LPN - 02/16/2023 11:25 AM EDT Pt's mother notified that rx has been sent to your pharmacy. Fazal Sánchez LPN' * Telephone Encounter - Estefany Mcduffie RN - 02/16/2023 10:58 AM EDT Mother calling in asking for patient to have refills on Xulane patch. Last seen for annual 08/02/2021. COIP documented in this encounterWexner Medical Center04-25-2023 Miscellaneous Notes* Telephone Encounter - Marisol Green - 10/21/2022 7:55 PM EDT Patient given results and verbalized understanding of instructions given. Marisol Green * Telephone Encounter - Isabel De Santiago APRN.CORINNE - 10/21/2022 7:49 PM EDT Please notify that the urine culture showed no infection. May continue taking the antibiotic if symptoms are improving. If symptoms persist/worsen f/u with primary care. documented in this encounterWexner Medical Center04-25-2023 Miscellaneous Notes* Telephone Encounter - Jewell Villalobos LPN - 10/21/2022 2:05 PM EDT Spoke with mother and results were given. Jewell Villalobos LPN * Telephone Encounter - Kelsy Tee PA-C - 10/21/2022 7:08 AM EDT Please call and let patient know her gonorrhea and Chlamydia testing was negative. documented in this encounterWexner Medical Center04-24-2023 History of Present illness Narrative* Neha Cisneros APRN.CORINNE - 10/20/2022 3:49 PM EDT This note was created using NoteWriter. Subjective Catalina Capellan is a 16 year old female. 16 year old female with PMH presents for possible UTI. Acute onset yesterday +burning +frequency +urgency +nausea Denies fever or chills. Normal discharge LMP-spotting last week. Denies vaginal bleeding. Denies concerns for possible STI. She is sexually active. History of renal calculi with stent placement ( Jul 2022) The history is provided by the patient. No spanish interpreter/translator was used. UTI This is a new problem. The current episode started yesterday. The problem occurs every urination. The problem has not changed since onset.The quality of the pain is described as burning. The pain is at a severity of 6/10. The pain is mild. There has been no fever. She is Sexually active. There is Ahistory of pyelonephritis. Associated symptoms include discharge (normal), frequency, urgency andflank pain. Pertinent negatives include no chills, no sweats, no nausea, no vomiting, no hematuria,no hesitancy and no possible . She has tried nothing for the symptoms. Her past medical history is significant for kidney stones, urological procedure and recurrent UTIs. Her past medical history does not include single kidney, urinary stasis or catheterization. PAST MEDICAL HISTORY Diagnosis Date Constipated Eczema PAST SURGICAL HISTORY Procedure Laterality Date CYSTOSCOPY,INSERT URETHRAL STENT EGD LITHROTRIPSY ALLERGIES Patient has no known allergies. MEDICATIONS triamcinolone acetonide (KENALOG) 0.1 % ointment Apply to affected area twice daily. For up to 2 weeks escitalopram oxalate (LEXAPRO) 10 mg tablet Take 10 mg by mouth daily at bedtime. Ethinyl Estradiol-Norelgestrom (XULANE) 150-35 mcg/24 hr patch Apply 1 Patch as directed one time aweek. loratadine (CLARITIN) 10 mg tablet Take 10 mg by mouth. sulfamethoxazole-trimethoprim (BACTRIM DS) 800-160 mg per tablet Take 1 tablet by mouth twice dailyfor 3 days. fluconazole (DIFLUCAN) 150 mg tablet Take 1 tablet by mouth once daily for 1 day. fluconazole (DIFLUCAN) 150 mg tablet Take 1 tablet by mouth one time only for 1 dose. LIDOCAINE VISCOUS 2 % solution Take 5-10 mL by mouth three times daily as needed. (Patient not taking: Reported on 07/30/2022) FLUoxetine (PROZAC) 20 mg capsule Take 20 mg by mouth. (Patient not taking: Reported on 04/08/2022) Bifidobacterium Infantis (ALIGN) 4 mg cap Take by mouth. (Patient not taking: Reported on 05/05/2022) cyproheptadine (PERIACTIN) 4 mg tablet Take 4 mg by mouth. (Patient not taking: Reported on 01/03/2022 ) ergocalciferol 50,000 unit capsule (VITAMIN D2, DRISDOL) Take by mouth. (Patient not taking: Reported on 05/05/2022) Norethindrone Acet-Ethinyl Est (LOESTRIN 07/18, ,) 1-20 mg-mcg per tablet Take 1 tablet by mouth once daily. (Patient not taking: Reported on 12/23/2021 ) fluticasone (FLONASE) 50 mcg/actuation nasal spray Use 1 [place] in the nose. (Patient not taking: Reported on 08/02/2021 ) FAMILY HISTORY Problem Relation Age of Onset Hypertension Maternal Grandfather Heart Attack Maternal Grandfather GI Maternal Grandmother other (Sponge Kidney) Maternal Grandmother other (Hysterectomy) Mother other (Other) Father Unknown Social History Tobacco Use Smoking status: Never Smokeless tobacco: Never Substance Use Topics Alcohol use: Never Drug use: Never Review of Systems Constitutional: Negative for chills, fatigue and fever. Eyes: Negative for pain, discharge and itching. Respiratory: Negative for apnea, choking and chest tightness. Cardiovascular: Negative for chest pain, palpitations and leg swelling. Gastrointestinal: Negative for abdominal pain, nausea and vomiting. Genitourinary: Positive for dysuria, flank pain, frequency and urgency. Negative for hematuria and hesitancy. Musculoskeletal: Negative for back pain and gait problem. Skin: Negative for color change, pallor, rash and wound. Allergic/Immunologic: Negative for environmental allergies, food allergies and immunocompromised state. Neurological: Negative for dizziness, facial asymmetry and headaches. Hematological: Negative for adenopathy. Does not bruise/bleed easily. Psychiatric/Behavioral: Negative for agitation and behavioral problems. Objective BP 120/80 Pulse 90 Temp 36.5 C (97.7 F) Resp 18 Wt 66.3 kg (146 lb 3.2 oz) LMP 10/14/2022(Within Days) SpO2 99% Physical Exam Vitals and nursing note reviewed. Constitutional: General: She is not in acute distress. Appearance: Normal appearance. She is normal weight. She is not ill-appearing, toxic-appearing or diaphoretic. HENT: Head: Normocephalic and atraumatic. Right Ear: Ear canal and external ear normal. Left Ear: Ear canal and external ear normal. Nose: Nose normal. No congestion or rhinorrhea. Mouth/Throat: Mouth: Mucous membranes are moist. Pharynx: No oropharyngeal exudate or posterior oropharyngeal erythema. Eyes: General: Right eye: No discharge. Left eye: No discharge. Extraocular Movements: Extraocular movements intact. Conjunctiva/sclera: Conjunctivae normal. Pupils: Pupils are equal, round, and reactive to light. Cardiovascular: Rate and Rhythm: Normal rate and regular rhythm. Pulses: Normal pulses. Heart sounds: Normal heart sounds. No murmur heard. No friction rub. Pulmonary: Effort: Pulmonary effort is normal. No respiratory distress. Breath sounds: Normal breath sounds. No stridor. No wheezing, rhonchi or rales. Chest: Chest wall: No tenderness. Abdominal: General: Abdomen is flat. There is no distension. Palpations: Abdomen is soft. There is no mass. Tenderness: There is no abdominal tenderness. There is right CVA tenderness (mild right sided CVA tenderness). There is no left CVA tenderness, guarding or rebound. Hernia: No hernia is present. Musculoskeletal: General: No swelling, tenderness, deformity or signs of injury. Normal range of motion. Cervical back: Normal range of motion and neck supple. No rigidity. Right lower leg: No edema. Left lower leg: No edema. Lymphadenopathy: Cervical: No cervical adenopathy. Skin: General: Skin is warm and dry. Capillary Refill: Capillary refill takes less than 2 seconds. Coloration: Skin is not jaundiced or pale. Findings: No bruising, erythema, lesion or rash. Neurological: General: No focal deficit present. Mental Status: She is alert and oriented to person, place, and time. Cranial Nerves: No cranial nerve deficit. Sensory: No sensory deficit. Motor: No weakness. Coordination: Coordination normal. Gait: Gait normal. Psychiatric: Mood and Affect: Mood normal. Behavior: Behavior normal. Thought Content: Thought content normal. Judgment: Judgment normal. Assessment and Plan ASSESSMENT/PLAN: 1. Dysuria - ICD9: 788.1, ICD10: R30.0 (primary diagnosis) X 2 days acute - UA positive for vamshi esterase - Send urine for culture - Begin treatment with Bactrim DS BID for 3 days - Patient education for prevention given - UA DIP, URINE (POC) - URINE CULTURE - GC/CHLAMYDIA AMPLIF, URINE 2. Abnormal menses - ICD9: 626.9, ICD10: N92.6 Spotting last week +sexually active - HCG QUAL UR B/O-negative 3. Acute right flank pain - ICD9: 789.09, 338.19, ICD10: R10.9 Differential Diagnosis includes Kidney stones/colic and Cystitis Begin Bactrim OTC medicines F/U with PCP Neha Cisneros APRN.COOPERATIVE MANAGER documented in this encounterWexner Medical Center03-16-2023 Instructions* Patient Instructions* Daev Strong MD - 09/11/2022 10:48 AM EDT Minimizing irritation of the vulva (area around the vagina) Wear white cotton underwear. Avoid synthetic fabrics and tight clothing. Sleep wearing shorts or pajama bottoms without underwear. Shower as soon as possible after exercise. Avoid clothing detergents and soaps with perfumes or dyes. Use warm (not hot) water to wash the vulva and if you use soap use a product designed for sensitive skin (like Dove or Cetaphil). Do not douche or use creams/powders in the vulvar area unless instructed by your physician. If you must douche, use only plain warm water. Make sure the vulva is dry before dressing by patting dry with a towel. Avoid vigorous rubbing withthe towel. You may want to use the blow dryer (on the cool setting only!) on the vulva. The most important way to let your body heal is by avoiding scratching. Many patients find it difficult to avoid scratching at night when they are most aware of the itchiness. You can try taking Benadryl just before bedtime. Some women find it helpful to wear cotton gloves to bed to avoid scratching at night. documented in this encounterWexner Medical Center03-16-2023 History of Present illness Narrative* Dave Strong MD - 09/11/2022 10:06 AM EDT Catalina Capellan is a 16 year old female who presents for vulvovaginal irritation & discharge for3 week(s). Symptoms started with kidney stone surgery & stent placement 3 weeks ago. Vaginal discharge: white. Itching: Some Bladder: slight dysuria Bowel: No blood in stool, pain with BM, tarry stool, persistent diarrhea or constipation Past medical, surgical, social history, medications and allergies reviewed and updated. OBJECTIVE: Wt 143 lb (64.9kg) LMP 08/04/2022 GENERAL: Well developed, well nourished in no apparent distress PELVIC: external genitalia with scant erythema, normal Bartholin's glands, urethra, Winifred's glands,no vulvar lesions, no cervical lesions, good vaginal support, white discharge present, normal appearing perineal body and perianal region ASSESSMENT/PLAN: 16yo female with vulvovaginitis No orders found for this visit on 09/11/22. STD screening: Accepted STD check for Gonorrhea and Chlamydia with trich Vaginitis swab for yeast & BV UA & urine culture Any new medications given to the patient have been explained as to directions, reasons for prescribing and side effects. Perineal hygiene was discussed with the patient. Medical Decision Making: Problems: Low: 2+ self-limited or minor problems Data: Unique test(s) ordered: 3+ Risk: Moderate: Drug management Medical Decision Making Level: 4 - Moderate Dave Strong MD documented in this encounterWexner Medical Center02-22-[address] Lan [facility] August 20, 2022 11:10am Note Date/Time August 20, 2022 11:10am [facility] Medical Records Department [address] [place] [id number] Instructions for Home/Discharge Instructions 08/20/22 1109 MR#: [id number] Acct: [id number] Name: CATALINA CAPELLAN Rep #:[id number] : 2005 16 From: Jonathan Lan MD PCP: Dr. iDan Velez MD Status:ADM KRIS Discharge Instructions Diet Discharge Diet: No restrictions Activity Discharge Activity: Return to Normal Activity Dressing / Incision Call your doctor if your incision/area has: Continuous Slow Oozing, Increased Pain/ Swelling, Increased Redness and Foul Smelling Discharge Call your doctor if you observe: Fever of 101 or Higher, Numbness or Tingling, Shortness of breath, Dizziness, Calf discomfort and Uncontrolled pain Follow Up Care Please Follow Up With: Jonathan Lan MD When: call for an appt. next week to have stent removed. Test Results: Test results from this visit will be discussed in further detail at your follow- up appointment, if applicable. Discharge Plan Admission Admit Date/Time: 08/18/22 21:00 Primary Reason for Your Visit: stent for stone Attending Provider: Jonathan Lan Primary Care Provider: Dian Velez Discharge Orders/Prescriptions Prescriptions: New ibuprofen 800 mg tablet 800 mg PO Q6H Qty: 20 0RF phenazopyridine [Pyridium] 200 mg tablet 200 mg PO TID PRN (Reason: pain) 7 Days Qty: 20 0RF oxycodone-acetaminophen 5-325 mg tablet 1 tab PO Q4H PRN (Reason: pain) 5 Days Qty: 10 0RF Continued loratadine 10 mg tablet 10 mg PO DAILY PRN (Reason: ALLERGIES) Label Comments: Take 1 Tablet by mouth daily as needed for Allergies Zafemy 150-35 mcg/24 hr patch weekly 1 patch topical QWEEK Label Comments: Apply 1 Patch as directed one time a week. escitalopram oxalate [Lexapro] 10 mg tablet 10 mg PO QHS Label Comments: Take 1 tablet by mouth at bedtime Referrals / Follow Up: Jonathan Lan MD [Med Staff - Active Staff] - Dian Velez MD [Primary Care Provider] - Disposition Discharge Orders: Discharge Patient (Routine); Ordered 08/20/22 Ordered By: Dr. Jonathan Lan 08/20/22 1110<Electronically signed by Jonathan Lan MD>Jonathan Lan MD CC: Dr. Dian Velez MD ~ Signed [facility] Work Phone: 1(877) 368-781002-22-2023 Procedure [facility] 08-19-[address] Lan [facility] August 19, 2022 12:40pm Note Date/Time August 19, 2022 12:32pm [facility] Medical Records Department [address] [place] [address] Instructions for Home/Discharge Instructions 08/19/22 1232 MR#: [id number] Acct: [id number] Name: CATALINA CAPELALN Rep #:[id number] : 2005 16 From: Jonathan Lan MD PCP: Dr. Dian Velez MD Status:ADM KRIS Discharge Instructions Diet Discharge Diet: No restrictions Dressing / Incision Call your doctor if your incision/area has: Continuous Slow Oozing, Increased Pain/ Swelling, Increased Redness and Foul Smelling Discharge Call your doctor if you observe: Fever of 101 or Higher, Numbness or Tingling, Shortness of breath, Dizziness, Calf discomfort and Uncontrolled pain Follow Up Care Please Follow Up With: Jonathan Lan MD Test Results: Test results from this visit will be discussed in further detail at your follow- up appointment, if applicable. Discharge Plan Admission Admit Date/Time: 08/18/22 21:00 Attending Provider: Jonathan Lan Primary Care Provider: Dian Velez Discharge Orders/Prescriptions Prescriptions: No Action loratadine 10 mg tablet 10 mg PO DAILY PRN (Reason: ALLERGIES) Label Comments: Take 1 Tablet by mouth daily as needed for Allergies Zafemy 150-35 mcg/24 hr patch weekly 1 patch topical QWEEK Label Comments: Apply 1 Patch as directed one time a week. escitalopram oxalate [Lexapro] 10 mg tablet 10 mg PO QHS Label Comments: Take 1 tablet by mouth at bedtime Referrals / Follow Up: Dian Velez MD [Primary Care Provider] - 08/19/22 1232<Electronically signed by Jonathan Lan MD>Jonathan Lan MD CC: Dr. Dian Velez MD ~ Signed ADDENDUM by Dr. Jonathan Lan MD on 08/19/22 at 1240 do not pull on string. NPO at midnight surgery will call you with arrival time. 08/19/22 1240<Electronically signed by Jonathan Lan MD>Jonathan Lan MD cc: Dr. Dian Velez MD ~* Signed [facility] Work Phone: 1(932) 761-345602-21-2023 Procedure [facility] 08-19-2022 History and physical note Author Dr. Lan [facility] August 19, 2022 7:00am Note Date/Time August 19, 2022 7:00am [facility] Medical Records Department [address] [place] [address] History & Physical Exam 08/19/22 0658 MR#: [id number] Acct: [id number] Name: CATALINA CAPELLAN Rep #:[id number] : 2005 16 From: Jonathan Lan MD PCP: Dr. Dian Velez MD Status:ADM KRIS Location: MS3 [id number] HPI - General General Date of Admission: 08/18/22 HPI Narrative CATALINA CAPELLAN, is a 16 F who presents with severe pain from kidney stone left side, admitted for psin contro, er asked me to admit the patient as could not get pain under contro, plant place stent today. [facility] Medical History Anxiety Home Medications escitalopram oxalate 10 mg tablet (Lexapro) 10 mg PO QHS ANXIETY 08/18/22 [History Last Taken 08/17/22] loratadine 10 mg tablet 10 mg PO DAILY PRN ALLERGIES 08/18/22 [History Last Taken Unknown] norelgestromin 150 mcg-e.estradiol 35 mcg/24 hr weekly transderm patch (Zafemy) 1 patch topical QWEEK CONTROL 08/18/22 [History Last Taken 08/18/22] Allergy/AdvReac Type Severity Reaction Status Date / Time No Known Allergies Allergy Verified 08/18/22 15:54 Social History Smoking Status: Never smoker substance use type: does not use Vital Signs Vital Signs Vital Signs: 08/18/22 15:54 08/18/22 16:20 08/18/22 18:51 Temperature 97 F Temperature Source Temporal Pulse Rate 111 H 78 Respiratory Rate 18 16 Respiratory Effort Normal Respiratory Pattern Normal Blood Pressure 128/90 H 124/68 Blood Pressure Mean 102 86 Blood Pressure Source Blood Pressure Position Blood Pressure Location Pulse Ox 99 99 Oxygen Delivery Method Room Air Room Air 08/18/22 19:29 08/18/22 21:03 08/19/22 02:40 Temperature 98.1 F 97.8 F 98.1 F Temperature Source Oral Oral Oral Pulse Rate 84 70 86 Respiratory Rate 18 16 16 Respiratory Effort Respiratory Pattern Blood Pressure 114/79 123/89 H 114/61 L Blood Pressure Mean 90 100 78 Blood Pressure Source Monitor Monitor Blood Pressure Position Semi-Fowlers Semi-Fowlers Blood Pressure Location Right Arm Right Arm Pulse Ox 98 100 98 Oxygen Delivery Method Room Air Room Air Room Air Weight Weight: 66.633 kg Body Mass Index (BMI) 24.4 Physical Exam Const alert and oriented x3 General Appearance: cooperative HEENT normocephalic, head/scalp atraumatic, EAC's normal and TM's normal bilaterally Eyes PERRL and EOMs intact bilaterally Pupil: sluggish Neck no lymphadenopathy, supple and no JVD General: trachea midline Lymph Lymphatic: no lymphadenopathy noted, lymphedema and lymphadenopathy Resp normal respiratory effort, normal air movement and clear to auscultation bilaterally Cardio regular rate, regular rhythm and peripheral pulses 2+ throughout GI soft to palpation, non-tender and non-distended Extremity normal capillary refill and no clubbing, cyanosis or edema General Extremity: no tenderness to palpation of joints or extremities Skin no rashes or lesions noted General Skin Exam: turgor normal Lesions: no lesions Rashes: no rashes Neuro CN's II-XII intact bilaterally Speech: speech normal Motor Exam: strength 5/5 throughout; Negative for general weakness Psych thought process normal, cooperative and affect normal Appearance: appropriate Results Medical Records Data Attestation: I reviewed the patient's medical records Lab / Micro Data Result Diagrams: 08/18/22 16:05 08/18/22 16:05 Labs: Laboratory Results - last 24 hr 08/18/22 16:05: WBC 8.0, RBC 4.52, Hgb 12.6, Hct 40.5, MCV 89.6, MCH 27.9, MCHC 31.1 L, RDW Std Deviation 44.5 H, RDW Coeff of Elizabeth 13.5, Plt Count 292, MPV 11.3, Immature Gran % (Auto) 0.400, Neut % (Auto) 69.3 H, Lymph % (Auto) 20.4 L,[place] % (Auto) 8.4 H, Eos % (Auto) 1.0, Baso % (Auto) 0.5, Absolute Neuts (auto) 5.6, Absolute Lymphs (auto) 1.64, Nucleated RBC % 0 08/18/22 16:05: Sodium 140, Potassium 3.3 L, Chloride 104, Carbon Dioxide 28.0, Anion Gap 8, BUN 8, Creatinine 0.66, Estim Creat Clear Calc 125.41, Est GFR (MDRD) Af Amer TNP, Est GFR (MDRD) Non-Af TNP, BUN/Creatinine Ratio 12.1, Glucose 112 H, Calcium 9.7 08/18/22 16:05: Serum , Qual NEGATIVE 08/18/22 16:20: Urine Color Yellow, Urine Clarity Turbid, Urine pH 7.0, Ur Specific [place] 1.015, Urine Protein 30 H, Urine Glucose (UA) Normal, Urine Ketones 15 H, Urine Occult Blood 250 H, Urine Nitrite Negative, Urine Bilirubin Negative, Urine Urobilinogen 1 H, Ur Leukocyte Esterase 100 H, Urine RBC 25-50 SEEN, Urine WBC 0-5 SEEN, Ur Squamous Epith Cells 0-5 SEEN, Amorphous Sediment 3+, Urine Bacteria 0 SEEN, Urine Mucus 0 SEEN Radiology Impression Abdomen/Pelvis CT 08/18/22 16:04 IMPRESSION: Bilateral renal stones. Left hydronephrosis with stone in the renal pelvis. Electronically Signed: Sami Daugherty MD at 18:29 EST Reading Location ID and State: [address] [place] [address] , Service support , Assessment & Plan Assessment/Plan (1) Acute flank pain: PLAN: admit for stone place left stent today npo (2) Urolithiasis: (3) Intractable pain: 08/19/22 0700 <Electronically signed by Jonathan Lan MD> Cosigner Signature (if applicable): CC: Dr. Jonathan Lan MD; Dr. Dian Velez MD~ Signed [facility] Work Phone: 1(145) 716-838502-21-[address] Blackwell [facility] August 18, 2022 10:45pm Note Date/Time August 18, 2022 4:09pm [facility] Medical Records Department [address] [place] [address] Emergency Department Summary 08/18/22 MR#: [id number] Acct: [id number] Name: CATALINA CAPELLAN Rep #:[id number] : 2005 16 From: Valerie Blackwell DO PCP: Dr. Dian Velez MD Status:ADM KRIS Location: [place] [address] HPI History of Present Illness Chief Complaint: Flank Pain Detail of Chief Complaint: Left flank pain Informant: patient Narrative Narrative: Patient presents to the emergency department with complaint of left flank pain that started about an hour ago. Patient rates her pain an 8 out of 10 currently. She has had nausea and vomited x1. Patient has had history of urinary tract infections. Patient states that she was treated twice in the lastcouple of months for UTI but her cultures have always been negative. Patient states the pain came on gradually. Patient has had no fever. She denies blood in her urine. Patient has had maybe some increased frequency but urinating normal amounts. Prior similar symptoms: Yes PFSH PFSH Medical History Anxiety Home Medications cephalexin 500 mg capsule 500 mg PO Q6 #40 CAPSULES 05/30/22 [Rx Last Taken Unknown] hydrocodone-acetaminophen 5-325mg 5mg-325mg 1 tab PO Q4H PRN PRN Pain 2 days #12TABLETS 05/30/22 [Rx Last Taken Unknown] ondansetron HCl 4 mg tablet 4 mg PO Q6H PRN nausea and vomiting #15 tabs 05/30/22 [Rx Last Taken Unknown] propranolol 10 mg tablet 15 mg PO DAILY 05/30/22 [History Last Taken Unknown] fluconazole 150 mg tablet (Diflucan) 150 mg PO DAILY #1 TAB 06/02/22 [Rx Last Taken Unknown] sulfamethoxazole 800 mg-trimethoprim 160 mg tablet (Bactrim DS) 1 tab PO BID #20tabs 06/02/22 [Rx Last Taken Unknown] Allergy/AdvReac Type Severity Reaction Status Date / Time No Known Allergies Allergy Verified 08/18/22 15:54 Social History (Updated 05/30/22 @ 10:[address] Will Portillo DO) Smoking Status: Never smoker substance use type: does not use ROS ROS ED Review of Systems ROS Unobtainable: other Constitutional Constitutional ED: Reports lethargy; Denies chills, fever(s), sweats or weight loss Eyes Eyes: Denies blurry vision, change in vision or diplopia ENT ENT ED: Denies rhinorrhea or sore throat Cardiovascular Cardiovascular: Denies chest pain, orthopnea or racing heartbeat Respiratory/Chest Respiratory/Chest: Denies cough, dyspnea, dyspnea on exertion, orthopnea or sputum Gastrointestinal Gastrointestinal: Reports abdominal pain; Denies diarrhea, nausea or vomiting Genitourinary Genitourinary ED: Denies dysuria, hematuria or urinary frequency Musculoskeletal Musculoskeletal: Reports back pain; Denies arthralgias, myalgias or neck pain Integumentary Denies abscess, Abrasions or rash Neurologic Neurologic: Denies headache(s) or weakness Psychiatric Psychiatric: Denies anxiety, depression or suicidal thoughts Endocrine Endocrinology: Denies polydipsia, polyphagia or polyuria Hematologic/Lymphatic Hematologic/Lymphatic: Denies easy bleeding, easy bruising or lymphadenopathy Allergic/Immunologic Allergic/Immunologic ED: Denies mouth swelling, tongue swelling or urticaria EXAM Physical Exam Const Vital Signs: 08/18/22 15:54 08/18/22 16:20 08/18/22 18:51 Temperature 97 F Temperature Source Temporal Pulse Rate 111 H 78 Respiratory Rate 18 16 Respiratory Effort Normal Respiratory Pattern Normal Blood Pressure 128/90 H 124/68 Blood Pressure Mean 102 86 Pulse Ox 99 99 Oxygen Delivery Method Room Air Room Air 08/18/22 19:29 Temperature 98.1 F Temperature Source Oral Pulse Rate 84 Respiratory Rate 18 Respiratory Effort Respiratory Pattern Blood Pressure 114/79 Blood Pressure Mean 90 Pulse Ox 98 Oxygen Delivery Method Room Air Positive well nourished and well developed General Appearance ED: well developed and NAD HEENT Reports TM's clear and moist mucous membranes normocephalic and atraumatic; Negative for trauma or tenderness Tympanic Membrane ED: Yes TM's clear Eyes PERRL and EOMs intact bilaterally General Eye ED: Negative for pale conjunctiva or scleral icterus Neck no lymphadenopathy, supple and no JVD General: Negative for tenderness Chest Wall inspection of chest normal and palpation of chest normal Chest: Negative for tenderness Resp normal respiratory effort and clear to auscultation bilaterally Effort and Inspection: Negative for respiratory distress or pain with movement Auscultation: Negative for rhonchi, wheezes or diminished lung sounds Cardio regular rate, regular rhythm, S1 normal heart sound, S2 normal heart sound and no murmurs Peripheral Pulses: pulses 2+ throughout GI normal to inspection, nondistended, normoactive bowel sounds, soft to palpation,non-distended and no masses GI Narrative: Tenderness to palpation over the left lower quadrant and left upper quadrant. Patient has CVA tenderness on the left. There is no rebound, rigidity, or peritoneal signs. Back/Spine no thoracic nor lumbar tenderness General Back: CVA tenderness left Extremity normal to inspection General Extremety ED: Negative for edema General Extremity: Negative for edema Neuro oriented x3, CN's II-XII intact bilaterally, no sensory deficits noted and gait normal Sensorium / Orientation: awake, alert, oriented to person, oriented to place andoriented to time Motor Exam: strength 5/5 throughout and strength abnormal Psych mental status grossly normal Skin no rashes or lesions noted and no wounds MDM MDM MDM Narrative Medical decision making narrative: IV line established on arrival. Patient initially given Toradol for pain but continued to have pain and required morphine 4 mg IV. Patient continues to complain of pain. CBC with differential was unremarkable. Chemistries unremarkable. hCG was negative. Urinalysis showed blood but no evidence of infection. CT scan of the abdomen pelvis showed a 6 mm stone in the left renal pelvis with hydronephrosis. Patient also had small renal stones bilaterally. Patient case discussed with urology Dr. Lan who will admit patient for pain control and possible stent placement. Lab Data Attestation: I reviewed the patient's lab results. Labs: Laboratory Results - last 24 hr 08/18/22 08/18/22 08/18/22 16:05 16:05 16:05 WBC 8.0 RBC 4.52 Hgb 12.6 Hct 40.5 MCV 89.6 MCH 27.9 MCHC 31.1 L RDW Std Deviation 44.5 H RDW Coeff of Elizabeth 13.5 Plt Count 292 MPV 11.3 Immature Gran % (Auto) 0.400 Neut % (Auto) 69.3 H Lymph % (Auto) 20.4 L [place] % (Auto) 8.4 H Eos % (Auto) 1.0 Baso % (Auto) 0.5 Absolute Neuts (auto) 5.6 Absolute Lymphs (auto) 1.64 Nucleated RBC % 0 Sodium 140 Potassium 3.3 L Chloride 104 Carbon Dioxide 28.0 Anion Gap 8 BUN 8 Creatinine 0.66 Estim Creat Clear Calc 125.41 Est GFR (MDRD) Af Amer TNP Est GFR (MDRD) Non-Af TNP BUN/Creatinine Ratio 12.1 Glucose 112 H Calcium 9.7 Serum , Qual NEGATIVE Urine Color Urine Clarity Urine pH Ur Specific [place] Urine Protein Urine Glucose (UA) Urine Ketones Urine Occult Blood Urine Nitrite Urine Bilirubin Urine Urobilinogen Ur Leukocyte Esterase Urine RBC Urine WBC Ur Squamous Epith Cells Amorphous Sediment Urine Bacteria Urine Mucus 08/18/22 16:20 WBC RBC Hgb Hct MCV MCH MCHC RDW Std Deviation RDW Coeff of Elizabeth Plt Count MPV Immature Gran % (Auto) Neut % (Auto) Lymph % (Auto) [place] % (Auto) Eos % (Auto) Baso % (Auto) Absolute Neuts (auto) Absolute Lymphs (auto) Nucleated RBC % Sodium Potassium Chloride Carbon Dioxide Anion Gap BUN Creatinine Estim Creat Clear Calc Est GFR (MDRD) Af Amer Est GFR (MDRD) Non-Af BUN/Creatinine Ratio Glucose Calcium Serum , Qual Urine Color Yellow Urine Clarity Turbid Urine pH 7.0 Ur Specific [place] 1.015 Urine Protein 30 H Urine Glucose (UA) Normal Urine Ketones 15 H Urine Occult Blood 250 H Urine Nitrite Negative Urine Bilirubin Negative Urine Urobilinogen 1 H Ur Leukocyte Esterase 100 H Urine RBC 25-50 SEEN Urine WBC 0-5 SEEN Ur Squamous Epith Cells 0-5 SEEN Amorphous Sediment 3+ Urine Bacteria 0 SEEN Urine Mucus 0 SEEN Radiography Diagnostic Testing: Clinical Impression(s) from Imaging Studies Abdomen/Pelvis CT 08/18/22 16:04 IMPRESSION: Bilateral renal stones. Left hydronephrosis with stone in the renal pelvis. Electronically Signed: Sami Daugherty MD at 18:29 EST , Discharge Plan Triage Chief Complaint: Flank Pain ED Provider: Valerie Blackwell Dx/Rx/DC Orders Clinical Impression: Urolithiasis, Intractable pain Prescriptions: No Action propranolol 10 mg tablet 15 mg PO DAILY Label Comments: TAKE 1 & 1/2 (ONE AND ONE-HALF) TABLETS BY MOUTH TWICE DAILY NEEDED FOR ANXIETY cephalexin [cephalexin] 500 mg capsule 500 mg PO Q6 Qty: 40 0RF hydrocodone-acetaminophen [hydrocodone-acetaminophen] 5-325 mg tablet 1 tab PO Q4H PRN PRN (Reason: Pain) 2 Days Qty: 12 0RF ondansetron HCl 4 mg tablet 4 mg PO Q6H PRN (Reason: nausea and vomiting) Qty: 15 0RF sulfamethoxazole-trimethoprim [Bactrim DS] 800-160 mg tablet 1 tab PO BID Qty: 20 0RF fluconazole [Diflucan] 150 mg tablet 150 mg PO DAILY Qty: 1 0RF Primary Care Provider: Dian Velez Referrals: Dian Velez MD [Primary Care Provider] - Disposition Disposition: Acute Care Hospital [facility] What to do if you have Problems For any increased pain, shortness of breath, bleeding, nausea or vomiting, chestpain, or any unexpected problems, contact your Primary Care Provider. Call [facility] ([phone]) or report to the closest Emergency Room. Call 911 if necessary. 08/18/222244 <Electronically signed by Valerie Blackwell DO> Cosigner Signature (if applicable): CC: Dr. Dian Velez MD ~ Signed [facility] Work Phone: 1(823) 846-413802-08-2023 Miscellaneous Notes* Telephone Encounter - Marisol Green - 08/06/2022 6:08 PM EST seen in mychart. Marisol Green * Telephone Encounter - Marisol Green - 08/05/2022 9:41 AM EST Left message for patient to return call. Marisol Green * Telephone Encounter - Kelsy Tee PA-C - 08/05/2022 9:09 AM EST Please let patient parent know that their COVID-19, influenza, and RSV testing is negative. [facility] Instructions* Patient Instructions* Melinda Oneill APRN.CORINNE - 08/04/2022 2:58 PM EST ASSESSMENT/PLAN: 1. Low back pain without sciatica, unspecified back pain laterality, unspecified chronicity - ICD9:724.2, ICD10: M54.50 (primary diagnosis) - UA DIP, URINE (POC)- positive for blood, protein, and leukocytes. - URINE CULTURE 2. Sore throat - ICD9: 462, ICD10: J02.9 - Alere Strep Test negative, no culture pending - Discussed supportive care treatment with fluids, rest and analgesia. - STREP A MOLECULAR (POC) 3. Acute cystitis with hematuria - ICD9: 595.0, ICD10: N30.01 - SULFAMETHOXAZOLE 800 MG-TRIMETHOPRIM 160 MG TABLET 4. Feared condition not demonstrated - ICD9: V65.5, ICD10: Z71.1 - patient states she gets yeast infections with antibiotic use. - FLUCONAZOLE 150 MG TABLET 5. Flu-like symptoms - ICD9: 780.99, ICD10: R68.89 - COVID, FLU A/B + RSV, ROUTINE - 2019 CORONAVIRUS - ROUTINE FLU A/B + RSV - Follow-up with your PCP in 3-5 days if symptoms have not improved or sooner if symptoms worsen - Discussed red flags and need for immediate medical evaluation if any occur. - Discussed supportive care treatment with fluids, rest and analgesia. - Discussed expected course of illness Melinda Onelil APRN.CNP documented [facility] History of Present illness Narrative* Melinda Oneill APRN.CNP - 08/04/2022 2:49 PM EST Subjective Sore Throat Associated symptoms include headaches and vomiting. Pertinent negatives include no abdominal pain, congestion, diarrhea or ear pain. Catalina Capellan is a 16 year old female who presents with 8 days ofUTI symptoms. Was seen here on 07/31 and prescribed macrobid but urine culture was negative so she stopped taking the antibiotic. She has also had some flu-like symptoms of headache, fever, fatigue, sore throat, body aches, chills. She had one episode of vomiting today. She has been taking Nyquil, Dayquil, and Excedrin at home. Review of Systems Constitutional: Positive for chills, fever and malaise/fatigue. HENT: Positive for sore throat. Negative for congestion and ear pain. Respiratory: Negative. Cardiovascular: Negative. Gastrointestinal: Positive for nausea and vomiting. Negative for abdominal pain and diarrhea. Musculoskeletal: Positive for myalgias. Neurological: Positive for headaches. BP 118/82 Pulse 115 Temp (!) 38.2 C (100.8 F) Resp 21 Wt 65.9 kg (145 lb 3.2 oz) LMP 04/14/2022 (Within Days) SpO2 98% PAST MEDICAL HISTORY Diagnosis Date Constipated Eczema PAST SURGICAL HISTORY Procedure Laterality Date EGD ALLERGIES Patient has no known allergies. MEDICATIONS escitalopram oxalate (LEXAPRO) 10 mg tablet Take 10 mg by mouth daily at bedtime. Ethinyl Estradiol-Norelgestrom (XULANE) 150-35 mcg/24 hr patch Apply 1 Patch as directed one time aweek. loratadine (CLARITIN) 10 mg tablet Take 10 mg by mouth. nitrofurantoin monohydrate and macrocrystal (MACROBID) 100 mg capsule Take 1 capsule by mouth twicedaily for 5 days. (Patient not taking: Reported on 08/04/2022) fluconazole (DIFLUCAN) 150 mg tablet Take 1 tablet by mouth one time only for 1 dose. LIDOCAINE VISCOUS 2 % solution Take 5-10 mL by mouth three times daily as needed. (Patient not taking: Reported on 07/30/2022) FLUoxetine (PROZAC) 20 mg capsule Take 20 mg by mouth. (Patient not taking: Reported on 04/08/2022) Bifidobacterium Infantis (ALIGN) 4 mg cap Take by mouth. (Patient not taking: Reported on 05/05/2022) cyproheptadine (PERIACTIN) 4 mg tablet Take 4 mg by mouth. (Patient not taking: Reported on 01/03/2022 ) ergocalciferol 50,000 unit capsule (VITAMIN D2, DRISDOL) Take by mouth. (Patient not taking: Reported on 05/05/2022) Norethindrone Acet-Ethinyl Est (LOESTRIN 07/18, ,) 1-20 mg-mcg per tablet Take 1 tablet by mouth once daily. (Patient not taking: Reported on 12/23/2021 ) fluticasone (FLONASE) 50 mcg/actuation nasal spray Use 1 [place] in the nose. (Patient not taking: Reported on 08/02/2021 ) FAMILY HISTORY Problem Relation Age of Onset Hypertension Maternal Grandfather Heart Attack Maternal Grandfather GI Maternal Grandmother other (Sponge Kidney) Maternal Grandmother other (Hysterectomy) Mother other (Other) Father Unknown Social History Tobacco Use Smoking status: Never Smokeless tobacco: Never Substance Use Topics Alcohol use: Never Drug use: Never Objective Physical Exam Vitals and nursing note reviewed. Constitutional: General: She is not in acute distress. Appearance: Normal appearance. She is not ill-appearing. HENT: Right Ear: Tympanic membrane, ear canal and external ear normal. Left Ear: Tympanic membrane, ear canal and external ear normal. Nose: Nose normal. Mouth/Throat: Mouth: Mucous membranes are moist. Pharynx: Uvula midline. Posterior oropharyngeal erythema present. No oropharyngeal exudate. Cardiovascular: Rate and Rhythm: Normal rate and regular rhythm. Heart sounds: Normal heart sounds. Pulmonary: Effort: Pulmonary effort is normal. No respiratory distress. Breath sounds: Normal breath sounds. No wheezing or rales. Abdominal: General: There is no distension. Palpations: There is no mass. Tenderness: There is abdominal tenderness (suprapubic). There is left CVA tenderness. There is no right CVA tenderness or guarding. Musculoskeletal: Cervical back: Neck supple. Lymphadenopathy: Cervical: No cervical adenopathy. Skin: General: Skin is warm and dry. Findings: No erythema or rash. Neurological: Mental Status: She is alert. ASSESSMENT/PLAN: 1. Low back pain without sciatica, unspecified back pain laterality, unspecified chronicity - ICD9:724.2, ICD10: M54.50 (primary diagnosis) - UA DIP, URINE (POC)- positive for blood, protein, and leukocytes. - URINE CULTURE 2. Sore throat - ICD9: 462, ICD10: J02.9 - Alere Strep Test negative, no culture pending - Discussed supportive care treatment with fluids, rest and analgesia. - STREP A MOLECULAR (POC) 3. Acute cystitis with hematuria - ICD9: 595.0, ICD10: N30.01 - SULFAMETHOXAZOLE 800 MG-TRIMETHOPRIM 160 MG TABLET 4. Feared condition not demonstrated - ICD9: V65.5, ICD10: Z71.1 - patient states she gets yeast infections with antibiotic use. - FLUCONAZOLE 150 MG TABLET 5. Flu-like symptoms - ICD9: 780.99, ICD10: R68.89 - COVID, FLU A/B + RSV, ROUTINE - 2019 CORONAVIRUS - ROUTINE FLU A/B + RSV - Follow-up with your PCP in 3-5 days if symptoms have not improved or sooner if symptoms worsen - Discussed red flags and need for immediate medical evaluation if any occur. - Discussed supportive care treatment with fluids, rest and analgesia. - Discussed expected course of illness Melinda Oneill APRN.COOPERATIVE MANAGER documented in this encounterW[facility]23 Instructions* Patient Instructions* Neda Crawford - 07/30/2022 4:36 PM EST ASSESSMENT/PLAN: 1. Urinary frequency - ICD9: 788.41, ICD10: R35.0 (primary diagnosis) acute - UA positive for hematuria and glucose 100mg/dl - Send urine for culture - Begin treatment with Macrobid 100 mg BID for 5 days empirically s/t history of sudden onset pyelonephritis - Patient education for prevention of UTI given - Ppx Diflucan prescribed r/t hx of yeast infection with Abx use. - Increase fluid intake and follow up with urology - Low suspicion for Pyelo at this point s/t no fever, and mild CVA tenderness and back pain locatedlower than CVA. Return to be seen if fever, chills or pain worsens. - UA DIP, URINE (POC) - URINE CULTURE - NITROFURANTOIN MONOHYDRATE & MACROCRYSTAL 100 MG ORAL CAP - FLUCONAZOLE 150 MG TABLET 2. Glucosuria - ICD9: 791.5, ICD10: R81 - To follow up with urology 3. Tension headache - ICD9: 307.81, ICD10: G44.209 - Discussed medication overuse and rebound headaches. - No concern for migraine s/t no aural symptoms. Neda Crawford APRN-student UTI GENERAL INFORMATION: A urinary tract infection (UTI) is an infection of the bladder or kidneys. A bladder infection, called cystitis, is the more common type. If the infection travels up to the kidneys, it is called pyelonephritis. This can be more serious. UTIs are a common problem in women. Having sexual relations can leave a woman more susceptible to developing a UTI, but it is not sexually transmitted like gonorrhea. Some women have a problem with recurrent UTIs. INSTRUCTIONS: 1. Your doctor prescribed an antibiotic to treat the UTI. Take exactly as directed. Be sure to takeall the medication prescribed, even if your symptoms disappear. If you stop treatment early, the infection may not be fully treated and the symptoms could come back again. 2. Get plenty of rest. You may take acetaminophen for fever and aches. 3. Drink 6 to 8 glasses of fluids, especially water, every day. This helps wash out germs from yoururinary tract. Cranberry juice or other sources of vitamin C are also good for you. 4. Urinate often, as soon as you feel the urge. Empty your bladder completely. Urinate before and after you have sex. 5. Always wipe from front to back after going to the bathroom. This pushes germs away from your bladder, rather than towards it. 6. Showers are better than baths, and you should wash the genital area daily. Avoid bubble bath or bath oils if you do take a bath. 7. Wear underwear and pantyhose with a cotton crotch. CALL THE OFFICE IF: 1. You have a temperature over 102F (38.8C) after 48 hours on medication. 2. You notice blood in your urine. 3. Your symptoms don't improve in 2 days. 4. You develop nausea, vomiting, diarrhea, or a rash. 5. You develop new or unexplained symptoms. These may be related to the medication you are taking. 6. Your symptoms return after you finish treatment. GO TO THE EMERGENCY DEPARTMENT IF: You develop vomiting and can't keep your medication or fluids down. -May take Tylenol as instructed on the label for headache. - Increase fluid intake to prevent headache s/t dehydration. -Follow up with PCP for headache regimen if symptoms continue - Go to ER if vision changes, LOC, worst headache of your life, weakness or loss of sensation. documented in this encounterW[facility] Center02-01-2023 History of Present illness Narrative* Melinda Oneill APRN.COOPERATIVE MANAGER - 07/30/2022 4:12 PM EST Subjective HPI Catalina Capellan is a 16 year old female, recent history of pyelonephritis, who presents with two days of urinary frequency, urgency and low back pain. Patient reports she has been dealing with UTI/pyelo since April of 2022. Patient reports these symptoms are similar to her past experiences with UTI and pyelo. Patient denies fever, chills, chest pain, shortness of breath. After an extensive workup in the hospital, patient was seen by outpatient urology and was cleared with normal kidney function unless further UTI symptoms occur. Associated symptoms include nausea, abdominal pain and headache. Denies new sexual partners, changes to vaginal discharge, vaginal odor, pruritis, or perineal lesions. Denies use of AZO or recent intake of sugary food or beverages. Headache is a 8/10 pain at its worst, located at bilateral temples. They are intermittent but everyday and gradually worsen throughout. Denies visual or auditory auras. Denies that this is the worst headache she's had. Reports trying Excedrin often for her pain, but it doesn't seem to help. Reportssome fluid intake, but is also having dizziness. Reports her blurry visual is not all the time but made worse when looking at something up close. Reports recently stopping wearing her contacts and wearing her glasses instead because contacts were irritating her eyes. No recent changes to prescription. Back pain is a 6/10 intermittent, aching low back pain located bilaterally, without sciatica. Review of Systems Constitutional: Positive for malaise/fatigue. Negative for chills and fever. HENT: Negative for congestion, ear pain and sore throat. Eyes: Positive for blurred vision. Negative for double vision, photophobia and pain. Respiratory: Negative for cough, shortness of breath and wheezing. Cardiovascular: Negative for chest pain and palpitations. Gastrointestinal: Positive for abdominal pain and nausea. Negative for diarrhea and vomiting. Genitourinary: Positive for frequency and urgency. Negative for dysuria, flank pain and hematuria. Musculoskeletal: Positive for back pain. Negative for falls. Neurological: Positive for dizziness and headaches. Negative for tingling. PAST MEDICAL HISTORY Diagnosis Date Constipated Eczema PAST SURGICAL HISTORY Procedure Laterality Date EGD ALLERGIES Patient has no known allergies. MEDICATIONS escitalopram oxalate (LEXAPRO) 10 mg tablet Take 10 mg by mouth daily at bedtime. Ethinyl Estradiol-Norelgestrom (XULANE) 150-35 mcg/24 hr patch Apply 1 Patch as directed one time aweek. loratadine (CLARITIN) 10 mg tablet Take 10 mg by mouth. nitrofurantoin monohydrate and macrocrystal (MACROBID) 100 mg capsule Take 1 capsule by mouth twicedaily for 5 days. fluconazole (DIFLUCAN) 150 mg tablet Take 1 tablet by mouth one time only for 1 dose. LIDOCAINE VISCOUS 2 % solution Take 5-10 mL by mouth three times daily as needed. (Patient not taking: Reported on 07/30/2022) FLUoxetine (PROZAC) 20 mg capsule Take 20 mg by mouth. (Patient not taking: Reported on 04/08/2022) Bifidobacterium Infantis (ALIGN) 4 mg cap Take by mouth. (Patient not taking: Reported on 05/05/2022) cyproheptadine (PERIACTIN) 4 mg tablet Take 4 mg by mouth. (Patient not taking: Reported on 01/03/2022 ) ergocalciferol 50,000 unit capsule (VITAMIN D2, DRISDOL) Take by mouth. (Patient not taking: Reported on 05/05/2022) Norethindrone Acet-Ethinyl Est (LOESTRIN 07/18, ,) 1-20 mg-mcg per tablet Take 1 tablet by mouth once daily. (Patient not taking: Reported on 12/23/2021 ) fluticasone (FLONASE) 50 mcg/actuation nasal spray Use 1 [place] in the nose. (Patient not taking: Reported on 08/02/2021 ) FAMILY HISTORY Problem Relation Age of Onset Hypertension Maternal Grandfather Heart Attack Maternal Grandfather GI Maternal Grandmother other (Sponge Kidney) Maternal Grandmother other (Hysterectomy) Mother other (Other) Father Unknown Social History Tobacco Use Smoking status: Never Smokeless tobacco: Never Substance Use Topics Alcohol use: Never Drug use: Never Objective BP 102/66 Pulse 102 Temp 37.1 C (98.8 F) Resp 16 Wt 66.2 kg (146 lb) LMP 04/14/2022 (Within Days) SpO2 99% Physical Exam Constitutional: General: She is not in acute distress. Appearance: Normal appearance. She is not diaphoretic. HENT: Head: Normocephalic and atraumatic. Eyes: Extraocular Movements: Extraocular movements intact. Conjunctiva/sclera: Conjunctivae normal. Pupils: Pupils are equal, round, and reactive to light. Cardiovascular: Rate and Rhythm: Normal rate and regular rhythm. Heart sounds: Normal heart sounds. Pulmonary: Effort: Pulmonary effort is normal. Breath sounds: Normal breath sounds. Abdominal: General: Abdomen is flat. Bowel sounds are normal. There is no distension. Palpations: Abdomen is soft. There is no hepatomegaly. Tenderness: There is abdominal tenderness in the right lower quadrant and left lower quadrant. There is left CVA tenderness. There is no right CVA tenderness, guarding or rebound. Skin: Findings: No rash. Neurological: General: No focal deficit present. Mental Status: She is alert and oriented to person, place, and time. Cranial Nerves: Cranial nerves 2-12 are intact. Sensory: No sensory deficit. Motor: No weakness. Coordination: Coordination is intact. ASSESSMENT/PLAN: 1. Urinary frequency - ICD9: 788.41, ICD10: R35.0 (primary diagnosis) acute - UA positive for hematuria and glucose 100mg/dl - Send urine for culture - Begin treatment with Macrobid 100 mg BID for 5 days empirically d/t history of sudden onset pyelonephritis - Patient education for prevention of UTI given - Diflucan prescribed r/t hx of yeast infection with Abx use. - Increase fluid intake and follow up with urology - Low suspicion for Pyelo at this point s/t no fever, and mild CVA tenderness and back pain locatedlower than CVA. Return to be seen if fever, chills or pain worsens. - UA DIP, URINE (POC) - URINE CULTURE - NITROFURANTOIN MONOHYDRATE & MACROCRYSTAL 100 MG ORAL CAP-if culture negative stop antibioticand follow up with urology. - FLUCONAZOLE 150 MG TABLET 2. Glucosuria - ICD9: 791.5, ICD10: R81 - To follow up with urology 3. Tension headache - ICD9: 307.81, ICD10: G44.209 - Discussed medication overuse and rebound headaches. - No concern for migraine s/t no aural symptoms. Neda Crawford APRN-student TEACHING PROVIDER (Physician/PA/LICENSED DISPENSING OPTICIAN) NOTE OF PERSONAL INVOLVEMENT IN CARE: I have personally seen and examined the patient and performed the medical decision-making components. I have reviewed the Advanced Practice Registered Nurse (LICENSED DISPENSING OPTICIAN) Student's documentation and verified the findings in the note as written. Any additions or changes are noted in bold/italics. Signature: Melinda Oneill Date: 07/30/2022 Time: 4:50 PM documented in this encounterW[facility]12-12-2022 Emergency department Note * Breanne Angelo RN - 06/09/2022 4:29 PM EST Pt ambulated out of ED with mom in stable condition without incident. [facility] Emergency department Note* Breanne Angelo RN - 06/09/2022 4:29 PM EST Pt ambulated out of ED with mom in stable condition without incident. * Breanne Angelo RN - 06/09/2022 4:27 PM EST Discharge instructions reviewed with mom and pt, verbalized understanding. * Tami De RN - 06/09/2022 3:10 PM EST Report to [facility] Mcnamara * Tami De RN - 06/09/2022 3:02 PM EST IV bolus #2 started, infusing well, pt taking po fluids well. Remains alert, color pink, mmm, respirations easy and clear. Side rails up and mom at bedside, call light within reach. Complains of slight back and chest pain. Monitoring continues. * Tami De RN - 06/09/2022 2:21 PM EST Bolus complete, fluids discontinued, pt up to bathroom for urine specimen. 40cc tea colored urine obtained. Physician notified. PO fluids ordered, pt taking fluids well. IV site @ stage 0, flushed easily. Pt remains alert, color pink, mmm, respirations easy. Side rails up and call light within reach, mom at bedside. Monitoring continues. * Tami De RN - 06/09/2022 12:23 PM EST Pt identified, no allergies to med to be given. Given Motrin 600mg po, tolerated well. Pt remains alert, color pink, mmm, respirations easy. Monitoring continues, parents remains at bedside, call light within reach. Siderails up. IV infusing well, site @ stage 0. * Tami De RN - 06/09/2022 11:49 AM EST Pt identified, procedure explained. IV inserted attempts x1 successful, blood drawn and sent to lab. Pt tolerated procedure well. Flushed easily, infusing well. Site @ stage 0. Monitoring continues. Parents remain at bedside, call light within reach, side rails up. NPH culture taken for RespiratoryFilm Array and sent to lab, pt tolerated well. Pt still not verbally communicating, but shakes headto answer questions appropriately. * Tami De RN - 06/09/2022 11:08 AM EST Nurse communication: Pt identified by name and date, introduced self to pt and family. Safetyaddressed, side rails up and call light within reach. Adult at bedside.Physician at bedside. Changed to hospital gown. Pt placed on Monitor. Pt anxious, shaking and complaining of pain in chest and back, moving all over bed. Rolling eyes back. EKG done. * Breanne Angelo RN - 06/09/2022 10:33 AM EST Pt is alert and oriented, lung sounds clear. Pt with history of recurrent kidney infections. Today with c/o abdominal and bilat flank pain, pt shaking, skin flushed, pt not answering questions asked at this time. Pt taken to room 31 and placed on monitor, HR in 190s documented in this encounter[facility]* Breanne Angelo RN - 06/09/2022 4:27 PM EST Discharge instructions reviewed with mom and pt, verbalized understanding. [facility]12-12-2022 Hospital Discharge instructions* Discharge Instructions* Seferino Travis MD - 06/09/2022 4:20 PM EST Please take medications as prescribed. If your symptoms worsen or persist please return to the emergency department. * Attachments The following attachments cannot be sent through Care Everywhere. * Pediatric Advisor: Urinary Tract Infection ([place]) documented in this encounterSelect [facility] NoteCLINICAL HISTORY: evaluation for pna/pleural effusion, tachycardia with tachpnea COMPARISON: None TECHNIQUE: CHEST AP ONLY IMPRESSION: The heart size and pulmonary vasculature are unremarkable. No focal consolidations are seen. No pneumothorax or pleural effusion is noted. The bones are within normal limits. The bowel gas pattern is nonspecific. This report has been created using voice recognition software Signed by: Dr. Alverto Henry at 06/09/2022 13:59[facility] Emergency department Note* Tami De RN - 06/09/2022 3:10 PM EST Report to [facility]12-12-[facility] Emergency department Note* Tami De RN - 06/09/2022 3:02 PM EST IV bolus #2 started, infusing well, pt taking po fluids well. Remains alert, color pink, mmm, respirations easy and clear. Side rails up and mom at bedside, call light within reach. Complains of slight back and chest pain. Monitoring continues. [facility]12-20[facility] Emergency department Note* Tami De RN - 06/09/2022 2:21 PM EST Bolus complete, fluids discontinued, pt up to bathroom for urine specimen. 40cc tea colored urine obtained. Physician notified. PO fluids ordered, pt taking fluids well. IV site @ stage 0, flushed easily. Pt remains alert, color pink, mmm, respirations easy. Side rails up and call light within reach, mom at bedside. Monitoring continues. [facility]-12-2022 NoteCLINICAL HISTORY: evaluation for pna/pleural effusion, tachycardia with tachpnea COMPARISON: None TECHNIQUE: CHEST AP ONLY [facility] [id number] Emergency department Note* Tami De RN - 06/09/2022 12:23 PM EST Pt identified, no allergies to med to be given. Given Motrin 600mg po, tolerated well. Pt remains alert, color pink, mmm, respirations easy. Monitoring continues, parents remains at bedside, call light within reach. Siderails up. IV infusing well, site @ stage 0. [facility]12-12-20[facility] Miscellaneous Notes* Case Management - Kaleigh Dave RN - 06/09/2022 11:55 AM EST sales branch manager In-depth Assessment Chart reviewed and in person interview completed with mother for discharge planning. Introduced self and explained CM role. Patient is a 16 y.o. with past medical history of reccurent kidney infections presenting from home for complaints of abdominal pain and flank pain. Pt is at an increased risk of readmission or CM discharge needs due to hx frequent use of emergency room (3rd ED visit in past month). Current plan undetermined at this time . Anticipated post-acute needs include: undetermined at this aliza Per chart review patient currently followed by outpatient population health palliative care nurse practitioner : none. Pt/caregiver reports patient with UTI infections in April and was seen at local ER twice in pastfew weeks for kidney infection. Mother reports patient has followed up with PCP since last ER visitand has a new patient apt with a urologist on 07/04/21. Pt/caregiver denies any concerns with: PCP relationship , accessing/obtaining medications , attending appointments , scheduling appointments , communicating with PCP , continuing follow up with current PCP/specialist after discharge , insurance, and housing Pt/caregiver identified the following discharge concerns: none voiced The following opportunities for discharge were identified: No CM discharge needs identified at this time. documented in this encounterSelect [facility] Progress note* Case Management - Kaleigh Dave RN - 06/09/2022 11:55 AM EST sales branch manager In-depth Assessment Chart reviewed and in person interview completed with mother for discharge planning. Introduced self and explained CM role. Patient is a 16 y.o. with past medical history of reccurent kidney infections presenting from home for complaints of abdominal pain and flank pain. Pt is at an increased risk of readmission or CM discharge needs due to hx frequent use of emergency room (3rd ED visit in past month). Current plan undetermined at this time . Anticipated post-acute needs include: undetermined at this aliza Per chart review patient currently followed by outpatient population health palliative care nurse practitioner : none. Pt/caregiver reports patient with UTI infections in April and was seen at local ER twice in pastfew weeks for kidney infection. Mother reports patient has followed up with PCP since last ER visitand has a new patient apt with a urologist on 07/04/21. Pt/caregiver denies any concerns with: PCP relationship , accessing/obtaining medications , attending appointments , scheduling appointments , communicating with PCP , continuing follow up with current PCP/specialist after discharge , insurance, and housing Pt/caregiver identified the following discharge concerns: none voiced The following opportunities for discharge were identified: No CM discharge needs identified at this time. [facility] Emergency department Note* Tami De RN - 06/09/2022 11:49 AM EST Pt identified, procedure explained. IV inserted attempts x1 successful, blood drawn and sent to lab. Pt tolerated procedure well. Flushed easily, infusing well. Site @ stage 0. Monitoring continues. Parents remain at bedside, call light within reach, side rails up. NPH culture taken for RespiratoryFilm Array and sent to lab, pt tolerated well. Pt still not verbally communicating, but shakes headto answer questions appropriately. [facility]12-[facility] Emergency department Note* Tami De RN - 06/09/2022 11:08 AM EST Nurse communication: Pt identified by name and date, introduced self to pt and family. Safetyaddressed, side rails up and call light within reach. Adult at bedside.Physician at bedside. Changed to hospital gown. Pt placed on Monitor. Pt anxious, shaking and complaining of pain in chest and back, moving all over bed. Rolling eyes back. EKG done. [facility]-12-20[facility] Emergency department Triage note* Breanne Angelo RN - 06/09/2022 10:33 AM EST Pt is alert and oriented, lung sounds clear. Pt with history of recurrent kidney infections. Today with c/o abdominal and bilat flank pain, pt shaking, skin flushed, pt not answering questions asked at this time. Pt taken to room 31 and placed on monitor, HR in 190s [facility] History of Present illness Narrative* Aniceto Strong APRN.CORINNE - 06/09/2022 9:13 AM EST Patient came in with complaints of severe abdominal and back pain. Patient is currently dealing with a kidney infection. Patient is on medication. Patient says it is getting much worse. Patient says she hurts all over. Patient is gripping her stomach and shaking in the room. Patient's heart rate isin the upper 150s. At this time mother was instructed to take child to the children's ER. For another full evaluation. Mother was okay with this care plan. documented in this encounterW[facility]12-01-2022 Miscellaneous Notes* Telephone Encounter - Lou Prado LPN - 05/29/2022 9:50 AM EST Patient parent notified of results, verbalizes understanding of instructions. Lou Prado LPN * Telephone Encounter - Aniceto Strong APRN.CORINNE - 05/29/2022 9:14 AM EST Negative for flu COVID and RSV please notify thank you * Telephone Encounter - Lou Prado LPN - 05/15/2022 10:37 AM EST Patient notified of results, verbalizes understanding of instructions. Lou Prado LPN * Telephone Encounter - Aniceto Strong APRN.CORINNE - 05/15/2022 9:38 AM EST Patient is on appropriate antibiotic for urine culture. If symptoms are persistent patient should follow-up with primary care. documented in this encounterWexner [facility] Center11-30-2022 Instructions* Patient Instructions* Freddy Dorado APRN.CORINNE - 05/28/2022 3:07 PM EST How to Manage Common Symptoms Associated with COVID for Adults Fever- Fever is a temperature over 100.4 F and can occur when the body is fighting an infection. Tohelp treat a fever: Drink plenty of fluids and stay well hydrated. Eat small amounts of easy to digest food. Rest. Your body needs rest to recover, but getting up and moving around the house frequently is a good idea. You should try to continue doing your normal daily activities (bathing, toileting, grooming, cooking), though you will probably feel tired, and need to rest often. Avoid any heavy activity or exercise, as this will increase your body temperature. Dress in light clothing and stay covered in a light sheet. Keep the room temperature cool. Take a slightly warm (not cold or cool) bath, or apply damp washcloths to the forehead and wrists. Cough- Cough is a common symptom associated with COVID and can be bothersome. To help treat a cough: Stay well hydrated. Try warm water or tea with lemon and/or honey to help soothe the cough. Use a humidifier to add moisture to the air. Try a product with menthol, like a cough drop or a rub for your chest such as Vicks, which can helpreduce cough. Try cough drops. Avoid smoking and other strong odors or perfumes. Try breathing exercises to keep your lungs open and clear. Take a big deep breath through your noseand hold for 5 seconds before slowly releasing. Repeat frequently, while you are awake. Congestion- Runny nose or nasal congestion can occur with COVID. Treatment can help relieve symptoms: Try OTC nasal saline spray, or nasal saline rinse to relieve mucus congestion. Nasal strips can help keep nasal passages open, to increase airflow. Elevating your head with an extra pillow in bed can help reduce congestion. Using a humidifier can increase moisture in the air, and make breathing easier. Sore Throat- Another common symptom with COVID, can be managed at home by: Stay well hydrated. Gargle with salt water - mix teaspoon salt with 1 cup of warm water and gargle. This helps to loosen mucus in the back of the throat and may reduce discomfort. Try ice chips, popsicles or lozenges to soothe the throat. Nausea/Vomiting/Diarrhea- These are common symptoms, and staying hydrated is most important. If you are nauseous or vomiting, start with small sips of water every 10-15 minutes and increase astolerated. You can try sucking an ice cube too. If tolerating, you can try pedialyte or Gatorade, or flat sprite or edgar-josemanuel. Start slowly and increase as you are able to. Instead of meals, try smaller, more frequent snacks. Try eating bland foods like crackers, toast, rice, and applesauce. Avoid spicy, greasy or fried foods and dairy containing foods. Even if you aren't feeling hungry due to lack of smell or taste, it is important to try to take in some food when you are able. After drinking and eating, rest in an upright position for up to two hours as needed to help decrease nauseous feelings. Try closing your eyes, avoid moving and watching TV. Avoid strong odors that can make you feel more nauseated. When to seek emergency medical attention Look for emergency warning signs for COVID-19. If having any of these symptoms, seek emergency medical care immediately: Trouble breathing Persistent pain or pressure in the chest New confusion Inability to wake or stay awake Bluish lips or face *This list is not all possible symptoms. Please call your medical provider for any other symptoms that are severe or concerning to you. documented in this encounterW[facility]11[facility]30-[facility]22 History of Present illness Narrative* Freddy Dorado APRN.CNP - 05/28/2022 2:57 PM EST Subjective HPI Nontoxic-appearing female presents urgent care chief complaint sore throat fever body aches chills cough. Duration of symptoms 3 days. Associated symptoms listed above. No known sick contacts. Does attend public school. Has been using OTC medications this is helped some. Most predominant symptom today is sore throat. Denies any high fevers productive cough chest pain hemoptysis nausea vomiting abdominal pain decreased range of motion of neck difficulty handling secretions pain with movement of neck. Past medical history prescription medication use allergies reviewed. .Patient presents with: Sore Throat: fever and chills x 3 days PAST MEDICAL HISTORY Diagnosis Date Constipated Eczema PAST SURGICAL HISTORY Procedure Laterality Date EGD ALLERGIES Patient has no known allergies. MEDICATIONS escitalopram oxalate (LEXAPRO) 10 mg tablet Take 10 mg by mouth daily at bedtime. Ethinyl Estradiol-Norelgestrom (XULANE) 150-35 mcg/24 hr patch Apply 1 Patch as directed one time aweek. loratadine (CLARITIN) 10 mg tablet Take 10 mg by mouth. fluconazole (DIFLUCAN) 150 mg tablet Take 1 tablet by mouth one time only for 1 dose. Repeat in 3 days as needed. FLUoxetine (PROZAC) 20 mg capsule Take 20 mg by mouth. (Patient not taking: Reported on 04/08/2022) Bifidobacterium Infantis (ALIGN) 4 mg cap Take by mouth. (Patient not taking: Reported on 05/05/2022) cyproheptadine (PERIACTIN) 4 mg tablet Take 4 mg by mouth. (Patient not taking: Reported on 01/03/2022 ) ergocalciferol 50,000 unit capsule (VITAMIN D2, DRISDOL) Take by mouth. (Patient not taking: Reported on 05/05/2022) Norethindrone Acet-Ethinyl Est (LOESTRIN 07/18, ,) 1-20 mg-mcg per tablet Take 1 tablet by mouth once daily. (Patient not taking: Reported on 12/23/2021 ) fluticasone (FLONASE) 50 mcg/actuation nasal spray Use 1 [place] in the nose. (Patient not taking: Reported on 08/02/2021 ) FAMILY HISTORY Problem Relation Age of Onset Hypertension Maternal Grandfather Heart Attack Maternal Grandfather GI Maternal Grandmother other (Sponge Kidney) Maternal Grandmother other (Hysterectomy) Mother other (Other) Father Unknown Social History Tobacco Use Smoking status: Never Smokeless tobacco: Never Substance Use Topics Alcohol use: Never Drug use: Never BP 122/72 Pulse 96 Temp 36.6 C (97.8 F) Resp 18 Wt 65.3 kg (144 lb) LMP 04/14/2022 (Within Days) SpO2 99% Review of Systems Constitutional: Positive for chills, fever and malaise/fatigue. HENT: Positive for congestion and sore throat. Negative for ear discharge, ear pain and sinus pain. Eyes: Negative for blurred vision, pain, discharge and redness. Respiratory: Positive for cough. Negative for hemoptysis, sputum production, shortness of breath, wheezing and stridor. Cardiovascular: Negative for chest pain. Gastrointestinal: Negative for abdominal pain, diarrhea, nausea and vomiting. Musculoskeletal: Positive for myalgias. Skin: Negative for itching and rash. Neurological: Positive for headaches. Negative for dizziness. Objective Physical Exam Constitutional: General: She is not in acute distress. Appearance: She is not diaphoretic. HENT: Head: Normocephalic. Jaw: No trismus, tenderness, swelling or pain on movement. Right Ear: Tympanic membrane, ear canal and external ear normal. Left Ear: Tympanic membrane, ear canal and external ear normal. Nose: Congestion present. Mouth/Throat: Lips: Banks. Mouth: Mucous membranes are moist. Pharynx: Oropharynx is clear. Uvula midline. Posterior oropharyngeal erythema present. No pharyngeal swelling, oropharyngeal exudate or uvula swelling. Tonsils: Tonsillar exudate present. No tonsillar abscesses. 2+ on the right. 2+ on the left. Eyes: Conjunctiva/sclera: Conjunctivae normal. Pupils: Pupils are equal, round, and reactive to light. Cardiovascular: Rate and Rhythm: Normal rate and regular rhythm. Heart sounds: Normal heart sounds. Pulmonary: Effort: Pulmonary effort is normal. No tachypnea, accessory muscle usage or respiratory distress. Breath sounds: Normal breath sounds. No stridor. No wheezing, rhonchi or rales. Abdominal: Palpations: Abdomen is soft. Tenderness: There is no abdominal tenderness. There is no right CVA tenderness, left CVA tendernessor guarding. Musculoskeletal: Cervical back: Normal range of motion and neck supple. No rigidity or tenderness. No pain with movement. Normal range of motion. Lymphadenopathy: Cervical: No cervical adenopathy. Skin: General: Skin is warm and dry. Neurological: Mental Status: She is alert and oriented to person, place, and time. ASSESSMENT/PLAN: 1. Sore throat - ICD9: 462, ICD10: J02.9 (primary diagnosis) - STREP A MOLECULAR (POC) - COVID, FLU A/B + RSV, ROUTINE 2. Viral illness - ICD9: 079.99, ICD10: B34.9 - COVID, FLU A/B + RSV, ROUTINE Strep test negative. [place] versus influenza versus COVID-19. Suspicious of viral etiology. No evidence of deep neck infection. Patient was educated on supportive therapies. [facility] 3 [facility]. Patient was instructed to immediately proceed to emergency room for any new, worsening, or symptoms lasting longer than anticipated. The patient's clinical presentation is otherwise unremarkable at this time. Based on exam and clinical finding, the patient is stable for discharge. Plan of care was discussed with patient. Patient verbalizes understanding and agrees to plan of care. This note was generated using Nexess software. It may contain errors in wording,punctuation, or spelling. Freddy Dorado APRN.CNP documented in this encounterW[facility]11-08-2022 Miscellaneous Notes* Telephone Encounter - Marisol Green - 05/06/2022 5:24 PM EST Patient given results and verbalized understanding of instructions given. Marisol Green * Telephone Encounter - Freddy Dorado APRN.CNP - 05/06/2022 4:36 PM EST No significant bacterial infection noted on urine culture. Continue antibiotics as prescribed. Follow-up with PCP 7 to 10 days for reevaluation.. Freddy Dorado APRN.CNP documented in this encounterWexner [facility] Center11-07-2022 History of Present illness Narrative* Neha Cisneros APRN.COOPERATIVE MANAGER - 05/05/2022 2:21 PM EST This note was created using MyNextRunriter. Subjective Catalina Capellan is a 16 year old female. 16 year old female with no PMH presents for complaints of possible UTI. Acute onset of symptoms was one week ago +burning +urgency +frequency +suprapubic pain +lower back pain LMP-3 weeks ago Denies vaginal bleeding. Denies vaginal discharge Denies concerns for STI She is sexually active Utilizes control The history is provided by the patient. No spanish interpreter/translator was used. UTI This is a new problem. The current episode started more than 1 week ago. The problem occurs every urination. The problem has not changed since onset.The quality of the pain is described as burning. The pain is at a severity of 5/10. The pain is moderate. There has been no fever. She is Sexually active. There is No history of pyelonephritis. Associated symptoms include frequency and urgency. Pertinent negatives include no chills, no sweats, no nausea, no vomiting, no discharge, no hematuria, no hesitancy, no possible and no flank pain. She has tried nothing for the symptoms. Her pastmedical history does not include kidney stones, single kidney, urological procedure, recurrent UTIs, urinary stasis or catheterization. PAST MEDICAL HISTORY Diagnosis Date Constipated Eczema PAST SURGICAL HISTORY Procedure Laterality Date EGD ALLERGIES Patient has no known allergies. MEDICATIONS escitalopram oxalate (LEXAPRO) 10 mg tablet Take 10 mg by mouth daily at bedtime. Ethinyl Estradiol-Norelgestrom (XULANE) 150-35 mcg/24 hr patch Apply 1 Patch as directed one time aweek. loratadine (CLARITIN) 10 mg tablet Take 10 mg by mouth. nitrofurantoin monohydrate and macrocrystal (MACROBID) 100 mg capsule Take 1 capsule by mouth twicedaily for 5 days. FLUoxetine (PROZAC) 20 mg capsule Take 20 mg by mouth. (Patient not taking: Reported on 04/08/2022) Bifidobacterium Infantis (ALIGN) 4 mg cap Take by mouth. (Patient not taking: Reported on 05/05/2022) cyproheptadine (PERIACTIN) 4 mg tablet Take 4 mg by mouth. (Patient not taking: Reported on 01/03/2022 ) ergocalciferol 50,000 unit capsule (VITAMIN D2, DRISDOL) Take by mouth. (Patient not taking: Reported on 05/05/2022) Norethindrone Acet-Ethinyl Est (LOESTRIN 07/18, ,) 1-20 mg-mcg per tablet Take 1 tablet by mouth once daily. (Patient not taking: Reported on 12/23/2021 ) fluticasone (FLONASE) 50 mcg/actuation nasal spray Use 1 [place] in the nose. (Patient not taking: Reported on 08/02/2021 ) FAMILY HISTORY Problem Relation Age of Onset Hypertension Maternal Grandfather Heart Attack Maternal Grandfather GI Maternal Grandmother other (Sponge Kidney) Maternal Grandmother other (Hysterectomy) Mother other (Other) Father Unknown Social History Tobacco Use Smoking status: Never Smokeless tobacco: Never Substance Use Topics Alcohol use: Never Drug use: Never Review of Systems Constitutional: Negative for chills, diaphoresis and fatigue. Eyes: Negative for pain, discharge, redness and itching. Respiratory: Negative for apnea, cough, choking and chest tightness. Cardiovascular: Negative for chest pain, palpitations and leg swelling. Gastrointestinal: Negative for abdominal pain, nausea and vomiting. Genitourinary: Positive for dysuria, frequency and urgency. Negative for flank pain, hematuria and hesitancy. Musculoskeletal: Negative for arthralgias, back pain and gait problem. Skin: Negative for color change, pallor, rash and wound. Allergic/Immunologic: Negative for environmental allergies, food allergies and immunocompromised state. Neurological: Negative for dizziness and facial asymmetry. Hematological: Negative for adenopathy. Does not bruise/bleed easily. Psychiatric/Behavioral: Negative for agitation and behavioral problems. Objective BP 118/84 Pulse 97 Temp 37.1 C (98.7 F) Resp 18 Wt 64.2 kg (141 lb 9.6 oz) LMP 04/14/2022(Within Days) SpO2 100% Physical Exam Vitals and nursing note reviewed. Constitutional: General: She is not in acute distress. Appearance: Normal appearance. She is normal weight. She is not ill-appearing, toxic-appearing or diaphoretic. HENT: Head: Normocephalic and atraumatic. Right Ear: Ear canal and external ear normal. Left Ear: Ear canal and external ear normal. Nose: Nose normal. No congestion or rhinorrhea. Mouth/Throat: Mouth: Mucous membranes are moist. Pharynx: No oropharyngeal exudate or posterior oropharyngeal erythema. Eyes: General: Right eye: No discharge. Left eye: No discharge. Extraocular Movements: Extraocular movements intact. Conjunctiva/sclera: Conjunctivae normal. Pupils: Pupils are equal, round, and reactive to light. Cardiovascular: Rate and Rhythm: Normal rate and regular rhythm. Pulses: Normal pulses. Heart sounds: Normal heart sounds. No murmur heard. No friction rub. Pulmonary: Effort: Pulmonary effort is normal. No respiratory distress. Breath sounds: Normal breath sounds. No stridor. No wheezing, rhonchi or rales. Chest: Chest wall: No tenderness. Abdominal: General: Abdomen is flat. There is no distension. Palpations: Abdomen is soft. There is no mass. Tenderness: There is no abdominal tenderness. There is no right CVA tenderness, left CVA tenderness, guarding or rebound. Hernia: No hernia is present. Musculoskeletal: General: No swelling, tenderness, deformity or signs of injury. Normal range of motion. Cervical back: Normal range of motion and neck supple. No rigidity. Right lower leg: No edema. Left lower leg: No edema. Lymphadenopathy: Cervical: No cervical adenopathy. Skin: General: Skin is warm and dry. Capillary Refill: Capillary refill takes less than 2 seconds. Coloration: Skin is not jaundiced or pale. Findings: No bruising, erythema, lesion or rash. Neurological: General: No focal deficit present. Mental Status: She is alert and oriented to person, place, and time. Cranial Nerves: No cranial nerve deficit. Sensory: No sensory deficit. Motor: No weakness. Coordination: Coordination normal. Gait: Gait normal. Psychiatric: Mood and Affect: Mood normal. Behavior: Behavior normal. Thought Content: Thought content normal. Judgment: Judgment normal. Assessment and Plan ASSESSMENT/PLAN: 1. Dysuria - ICD9: 788.1, ICD10: R30.0 acute - UA positive for vamshi esterase, hematuria, and proteinuria - Send urine for culture - Begin treatment with Macrobid 100 mg BID for 5 days - Patient education for prevention given - UA DIP, URINE (POC) - URINE CULTURE Neha Cisneros APRN.COOPERATIVE MANAGER documented in this encounterWexner [facility] Center10-20-2022 Miscellaneous Notes* Telephone Encounter - Tri Collier RN - 04/17/2022 3:54 PM EDT Images from the original note were not included. Song Morales RN; [facility] Podiatry Pool 2 hours ago (1:51 PM) Please call patient that I reviewed her xrays. There could be an avulsion fracture of the hindfoot.An avulsion fracture occurs when a small portin of bone is torn away from the bone by ligament. She is in boot She was seen by pediatric ortho who said she can continue with boot and progress out as tolerated. Song Valentino DPM Phone call to patient's mother. Gave message above and she verbalized understanding. Mother confirms that patient was seen by pediatric ortho. * Telephone Encounter - Dayron Morales RN - 04/15/2022 1:41 PM EDT Images from the original note were not included. Patient's mother sent a message through her CitiSentt regarding patient. Mother was unable to send Cylext message through patient's chart. Jairo Bazan [facility] Podi Mychart Clinical Msg Pool (supporting Song Valentino) 6 days ago Hi my daughter fractured her foot and she has an appointment with you but you didn't have anything available until April 23. It won't let me message you through her chart so I used mine. Her nameis Catalina Capellan 2005. She has a boot but I just wanted to make sure her putting weight on it and everything is ok since the appointment is so far out? documented in this encounterWexner [facility] Center10-13-2022 History of Present illness Narrative* Michael Moon MD - 04/10/2022 2:43 PM EDT Medical Decision Making: Problems: Low: Acute, uncomplicated illness or injury Data: Unique source(s) for external note(s) reviewed: 2 Unique test result(s) reviewed: 2 Risk: Low: Low risk from testing/treatment Medical Decision Making Level: 3 - Low First visit for this young lady. She suffered a fall while walking inverting her right ankle. She had immediate onset of pain. She was seen and evaluated for x- rays were suspicious for fracture. She was treated with a walking boot and is here today for my thoughts. She is been very comfortable in awalking boot. Takes Excedrin for discomfort. Uses ice occasionally. Otherwise healthy. Enjoys [employer] in the choir. On exam she is in no acute distress. Right lower extremity is examined. It is removed. Skin is intact. She has mild swelling over the lateral ankle. She is distinctly tender to palpation over the ATFL. Mildly tender over the PT FL. No tenderness posteriorly about the fibula. No bony tenderness to palpation about the proximal fibula distal fibula medial malleolus base of fifth metatarsal or the dorsal midfoot. No deformity is seen. Her skin is intact. Her neurovascular examination is intact. X-rays of her ankle are negative for my review. There is a slight nanci of bone dorsal to the navicular but no acute processes noted otherwise. Impression: Right ankle sprain. We discussed weightbearing as tolerated in a boot and then weaning out of this as tolerated using pain and swelling as her guide. Discussed the remainder of the conservative ankle sprain protocol with her. Follow-up with me as needed. She is no better in 3 to 4 weeks we will see her back for repeatevaluation. documented in this encounterWexner [facility] Center10-13-2022 History of Past illness Narrative* Problem Noted Date Diagnosed Date Resolved Date Sprain of ligament of right ankle 04/10/2022 08/13/2023 documented as of this encounter (statuses as of 08/13/2023) [facility] of Past illness Narrative* Problem Noted Date Diagnosed Date Resolved Date Sprain of ligament of right ankle 04/10/2022 08/13/2023 documented as of this encounter (statuses as of 08/14/2023) [facility] of Past illness Narrative* Problem Noted Date Diagnosed Date Resolved Date Sprain of ligament of right ankle 04/10/2022 08/13/2023 documented as of this encounter (statuses as of 08/14/2023) [facility] of Past illness Narrative* Problem Noted Date Diagnosed Date Resolved Date Sprain of ligament of right ankle 04/10/2022 08/13/2023 documented as of this encounter (statuses as of 08/15/2023) [facility] of Past illness Narrative* Problem Noted Date Diagnosed Date Resolved Date Sprain of ligament of right ankle 04/10/2022 08/13/2023 documented as of this encounter (statuses as of 08/17/2023) [facility] of Past illness Narrative* Problem Noted Date Diagnosed Date Resolved Date Sprain of ligament of right ankle 04/10/2022 08/13/2023 documented as of this encounter (statuses as of 09/22/2023) [facility] of Present illness Narrative* Isabel De Santiago APRN.COOPERATIVE MANAGER - 04/08/2022 3:47 PM EDT Subjective HPI HPI Catalina Capellan is a 16 year old female who presents today for CC of right ankle pain after fall. This started 1 day ago. Has tried otc medication for relief. Symptoms are worsened by walking. Denies history of surgery or injury to right foot/ankle. Denies numbness and tingling of right foot. .Patient presents with: Fall: Pt presented with parent, reported (RT) foot/ankle injury swelling, x1 day pain rated 8. PAST MEDICAL HISTORY Diagnosis Date Constipated Eczema PAST SURGICAL HISTORY Procedure Laterality Date EGD ALLERGIES Patient has no known allergies. MEDICATIONS escitalopram oxalate (LEXAPRO) 10 mg tablet Take 10 mg by mouth daily at bedtime. Ethinyl Estradiol-Norelgestrom (XULANE) 150-35 mcg/24 hr patch Apply 1 Patch as directed one time aweek. ergocalciferol 50,000 unit capsule (VITAMIN D2, DRISDOL) Take by mouth. loratadine (CLARITIN) 10 mg tablet Take 10 mg by mouth. FLUoxetine (PROZAC) 20 mg capsule Take 20 mg by mouth. (Patient not taking: Reported on 04/08/2022) Bifidobacterium Infantis (ALIGN) 4 mg cap Take by mouth. cyproheptadine (PERIACTIN) 4 mg tablet Take 4 mg by mouth. (Patient not taking: Reported on 01/03/2022 ) Norethindrone Acet-Ethinyl Est (LOESTRIN 07/18, ,) 1-20 mg-mcg per tablet Take 1 tablet by mouth once daily. (Patient not taking: Reported on 12/23/2021 ) fluticasone (FLONASE) 50 mcg/actuation nasal spray Use 1 [place] in the nose. (Patient not taking: Reported on 08/02/2021 ) FAMILY HISTORY Problem Relation Age of Onset Hypertension Maternal Grandfather Heart Attack Maternal Grandfather GI Maternal Grandmother other (Sponge Kidney) Maternal Grandmother other (Hysterectomy) Mother other (Other) Father Unknown Social History Tobacco Use Smoking status: Never Smokeless tobacco: Never Substance Use Topics Alcohol use: Never Drug use: Never ROS Objective Blood pressure 110/62, pulse 88, temperature 36.7 C (98 F), resp. rate 16, weight 64.3 kg (141 lb 12.8 oz). Physical Exam Constitutional: General: She is not in acute distress. Appearance: She is not toxic-appearing or diaphoretic. HENT: Head: Normocephalic and atraumatic. Cardiovascular: Pulses: Popliteal pulses are 1+ on the right side. Dorsalis pedis pulses are 1+ on the right side. Pulmonary: Effort: Pulmonary effort is normal. No accessory muscle usage or respiratory distress. Musculoskeletal: Right ankle: Swelling present. No deformity, ecchymosis or lacerations. Tenderness present over thelateral malleolus. Decreased range of motion. Normal pulse. Right Achilles Tendon: No tenderness. Neurological: Mental Status: She is alert and oriented to person, place, and time. ASSESSMENT/PLAN: 1. Closed nondisplaced avulsion fracture of right talus, initial encounter - ICD9: 825.21, ICD10: S92.154A (primary diagnosis) Placed in boot for comfort Pain relief discussed Will refer to podiatry 2. Injury of right ankle, initial encounter - ICD9: 959.7, ICD10: S99.911A - XR ANKLE GENERAL 3V AP/LAT/OBL RIGHT IMPRESSION: Findings concerning for nondisplaced avulsion fracture of the dorsal talus with tibiotalar joint effusion and lateral ankle soft tissue swelling. Dictated by : AYLA MCNULTY MD Agrees to plan Isabel De Santiago APRN.COOPERATIVE MANAGER documented in this encounterWexner Medical Center07-08-2022 History of Present illness Narrative* Swapna Cardenas MD - 01/03/2022 3:21 PM EDT Catalina Capellan is a 16 year old female who presents for problem visit for vaginal irritation. HPI: 16 YOF seen in urgent care over a week ago for back pain and dysuria. Took antiboitic and didn't seem to resolve. Also complained of some abnormal vaginal discharge, itching and vaginal irritation over the past 7 or 8 days. She has been sexually active without protection. Patient states condoms irritate her more. She has been taking her control pills irregularly. She sometimes misses them. She started her menses 2 days ago and still has moderate flow. She would like discuss other methods of contraception. She denies any fevers or chills. She denies any diarrhea or constipation. Patient presents with her mother today. OB History T0 L0 SAB0 IAB0 Ectopic0 Multiple0 Live Births0 [employer] History LMP: 12/02/2021 (Within Days), Having periods Age at Menarche: Age at First : Age at Menopause: [employer]all[employer] Teacher History Comments: Sexual Activity: Not Asked; No partner data on record Contraception: No contraception data on record PAST MEDICAL HISTORY Diagnosis Date Constipated Eczema PAST SURGICAL HISTORY Procedure Laterality Date EGD FAMILY HISTORY Problem Relation Age of Onset Hypertension Maternal Grandfather Heart Attack Maternal Grandfather GI Maternal Grandmother other (Sponge Kidney) Maternal Grandmother other (Hysterectomy) Mother other (Other) Father Unknown Social History Tobacco Use Smoking status: Never Smoker Smokeless tobacco: Never Used Substance Use Topics Alcohol use: Never Drug use: Never Current Outpatient Medications Medication Sig FLUoxetine (PROZAC) 20 mg capsule Take 20 mg by mouth. Bifidobacterium Infantis (ALIGN) 4 mg cap Take by mouth. cyproheptadine (PERIACTIN) 4 mg tablet Take 4 mg by mouth. ergocalciferol 50,000 unit capsule (VITAMIN D2, DRISDOL) Take by mouth. Norethindrone Acet-Ethinyl Est (LOESTRIN 07/18, ,) 1-20 mg-mcg per tablet Take 1 tablet by mouth once daily. (Patient not taking: Reported on 12/23/2021 ) loratadine (CLARITIN) 10 mg tablet Take 10 mg by mouth. fluticasone (FLONASE) 50 mcg/actuation nasal spray Use 1 [place] in the nose. (Patient not taking: Reported on 08/02/2021 ) No current facility-administered medications for this visit. Allergies As of Date: 01/03/2022 (No Known Allergies) Fully Assessed 12/23/2021 REVIEW OF SYSTEMS Abdomen: No bloating, early satiety, indigestion, or increased flatulence. No abdominal pain, nausea, vomiting, diarrhea, or constipation. Bladder: No dysuria, gross hematuria, urinary frequency, urinary urgency, or incontinence. Expanded ROS: N/A Allergies and current medication updated:Yes EXAM: LMP 12/02/2021 GENERAL: pleasant, female in no apparent distress No CVA tenderness. PELVIC: external genitalia normal, normal Bartholin's glands, urethra, Winifred's glands, no vulvar lesions, no cervical lesions, good vaginal support, physiologic discharge present, normal appearing perineal body and perianal region, there is moderate amount of menstrual blood in the vault. No malodor. No visible lesions on the vulva or vagina. Cervix is smooth and nonfriable BIMANUAL: uterus normal size, shape and consistency, no adnexal masses and non-tender ASSESSMENT AND PLAN: Vaginal irritation. STI testing done today. Encouraged condom use, lubrication as needed. Discussedwith her importance of STI prevention. We discussed contraceptive options including LARC. At this point patient is most interested in trial of Xulane patches. Risk benefits alternatives and use of the patch were reviewed, their questions were answered to their satisfaction a prescription was sent. She should start this in 2 to 3 days. She should use a backup contraception for at least 2 weeks. Discussed with patient and her mother if the irritation has not resolved by the time her period is done, she should return for an evaluation when she is no longer menstruating. Would perform BV and yeast evaluation at that point. They are comfortable with this plan. repeat urine culture today. Urine has blood but she is on menses Medical Decision Making: Problems: Low: 2+ self-limited or minor problems Data: Unique test result(s) reviewed: 1 Unique test(s) ordered: 1 Risk: Moderate: Moderate risk from testing/treatment Medical Decision Making Level: 3 - Low Swapna Cardenas MD [facility] Miscellaneous Notes* Telephone Encounter - Marisol Green - 12/24/2021 11:32 AM EDT Patient given results and verbalized understanding of instructions given. Marisol Green * Telephone Encounter - Kelsy Tee PA-C - 12/24/2021 11:15 AM EDT Let patient know that her urine culture showed that it was contaminated during collection so did not run a sensitivity. Would recommend finishing antibiotics, if not improving recommend follow-up with women's health or primary care. [facility] Plan note No data available for this section [facility] Evaluation note* Diagnosis Dysuria- Primary Vaginal discharge Leukorrhea, not specified as infective Screen for sexually transmitted diseases Screening examination for venereal disease [facility] Diagnosis Closed nondisplaced avulsion fracture of right talus, initial encounter- Primary Injury of right ankle, initial encounter [facility] Diagnosis Sprain of ligament of right ankle, initial encounter- Primary [facility] Diagnosis Dysuria- Primary [facility]* Diagnosis Sore throat- Primary Acute pharyngitis Viral illness Unspecified viral infection, in conditions classified elsewhere and of unspecified site documented in this encounter [facility] noteNo assessment information availableWTriHealth [facility] Work Phone: Evaluation note* Diagnosis Acute low back pain without sciatica, unspecified back pain laterality- Primary Tachycardia Tachycardia, unspecified documented in this encounter [facility] note* Diagnosis Stress reaction- Primary Other acute reactions to stress Tachycardia Tachycardia, unspecified Urinary tract infection with hematuria, site unspecified documented in this encounter [facility] note* Diagnosis Urinary frequency- Primary Glucosuria Glycosuria Tension headache documented in this encounter [facility] note* Diagnosis Low back pain without sciatica, unspecified back pain laterality, unspecified chronicity- Primary Sore throat Acute pharyngitis Acute cystitis with hematuria Acute cystitis Feared condition not demonstrated Person with feared complaint in whom no diagnosis was made Flu-like symptoms Other general symptoms documented in this encounter [facility] note* Diagnosis Onset Date Resolution Status Intractable pain acute Urolithiasis [facility] Work Phone: Evaluation note* Diagnosis Onset Date Resolution Status Acute flank pain acute Intractable pain acute Urolithiasis [facility] Work Phone: Evaluation note* Diagnosis Vulvar dermatitis- Primary Other inflammatory disease of cervix, vagina and vulva Vaginal irritation Unspecified noninflammatory disorder of vagina Dysuria documented in this encounter [facility] note* Diagnosis Dysuria- Primary Abnormal menses Unspecified disorder of menstruation and other abnormal bleeding from female genital tract Acute right flank pain Abdominal pain, unspecified site documented in this encounter [facility] note* Diagnosis Kidney stones Calculus of kidney documented in this encounter [facility] note* Diagnosis Urinary frequency- Primary Nausea and vomiting, unspecified vomiting type documented in this encounter [facility] note* Diagnosis Diabetes- Primary Hyperglycemia Other abnormal glucose Diabetes mellitus, new onset Type II or unspecified type diabetes mellitus without mention of complication, not stated as uncontrolled Hyperglycemia Other abnormal glucose documented in this encounter [facility] note* Diagnosis Type 1 diabetes mellitus without complication Type I (juvenile type) diabetes mellitus without mention of complication, not stated as uncontrolled Easy bruising Other symptoms involving skin and integumentary tissues documented in this encounter [facility] note* Diagnosis Hyperglycemia- Primary Other abnormal glucose Idiopathic urticaria documented in this encounter [facility] note* Diagnosis Viral illness- Primary Unspecified viral infection, in conditions classified elsewhere and of unspecified site documented in this encounter [facility] note* Diagnosis Pre-existing type 1 diabetes affecting , antepartum- Primary documented in this encounter [facility] note* Diagnosis Encounter for supervision of high risk in first trimester, antepartum- Primary 9 weeks gestation of state, incidental Pre-existing type 1 diabetes mellitus in in first trimester Diabetes mellitus, antepartum Nausea and vomiting during Constipation during in first trimester Right lower quadrant abdominal pain Abdominal pain, right lower quadrant Heart palpitations Palpitations Shortness of breath Heartburn during in first trimester Family history of Down syndrome Family history of congenital anomalies Asymptomatic bacteriuria during Vaginal discharge during in first trimester Subchorionic hematoma in first trimester, single or unspecified fetus Kidney stone complicating , first trimester documented in this encounter [facility] note* Diagnosis Pre-existing type 1 diabetes mellitus in in first trimester- Primary Diabetes mellitus, antepartum documented in this encounter [facility] note* Diagnosis Encounter for supervision of high risk in first trimester, antepartum- Primary Pre-existing type 1 diabetes mellitus in in first trimester Diabetes mellitus, antepartum documented in this encounter [facility] note* Diagnosis Volume depletion- Primary Volume depletion, unspecified Hyperemesis gravidarum Mild hyperemesis gravidarum, unspecified as to episode of care Dehydration Nausea and vomiting Nausea with vomiting Hypovolemia associated with vomiting documented in this encounter [facility] note* Diagnosis Acute UTI- Primary Urinary tract infection, site not specified documented in this encounter [facility] note* Diagnosis Pre-existing type 1 diabetes mellitus during in second trimester documented in this encounter [facility] note* Diagnosis Type 1 diabetes mellitus complicating in second trimester, antepartum- Primary documented in this encounter [facility] note* Diagnosis Anemia, antepartum, unspecified trimester Supervision of other high risk pregnancies, second trimester documented in this encounter [facility] note* Diagnosis SOB (shortness of breath)- Primary Shortness of breath Tachycardia Unspecified tachycardia documented in this encounter [facility] note* Diagnosis Diabetes mellitus affecting in third trimester- Primary documented in this encounter [facility] note* Diagnosis ERRONEOUS ENCOUNTER--DISREGARD- Primary documented in this encounter [facility] note* Diagnosis Preeclampsia, third trimester- Primary S/P section Other postprocedural status documented in this encounter [facility] note* Diagnosis Sore throat- Primary Acute pharyngitis documented in this encounter [facility] note* Diagnosis Encounter for initial prescription of contraceptive pills- Primary General counseling for prescription of oral contraceptives Vaginal yeast infection Candidiasis of vulva and vagina Type 1 diabetes mellitus without complication (HCC) Type I (juvenile type) diabetes mellitus without mention of complication, not stated as uncontrolled documented in this encounter [facility] note* Diagnosis Tachycardia- Primary Tachycardia, unspecified Dizziness Dizziness and giddiness Hyperglycemia Other abnormal glucose documented in this encounter [facility] note* Diagnosis Pain of upper abdomen- Primary Abdominal pain, other specified site documented in this encounter [facility] note* Diagnosis Type 1 diabetes mellitus without complication (HCC)- Primary Type I (juvenile type) diabetes mellitus without mention of complication, not stated as uncontrolled documented in this encounter [facility] note* Diagnosis Type 1 diabetes mellitus without complication (HCC)- Primary Type I (juvenile type) diabetes mellitus without mention of complication, not stated as uncontrolled documented in this encounter [facility] note* Diagnosis Vaginal discharge- Primary Leukorrhea, not specified as infective Screening for genitourinary condition Screening for other and unspecified genitourinary condition Vaginal pain Unspecified symptom associated with female genital organs documented in this encounter [facility] note* Diagnosis Type 1 diabetes mellitus without complication (HCC) Type I (juvenile type) diabetes mellitus without mention of complication, not stated as uncontrolled documented in this encounter [facility] note* Diagnosis Adverse effect of drug, initial encounter- Primary documented in this encounter [facility] note* Diagnosis Vaginal yeast infection- Primary Candidiasis of vulva and vagina Pelvic pain Pre-existing type 1 diabetes mellitus in in first trimester Diabetes mellitus, antepartum BV (bacterial vaginosis) Vaginitis and vulvovaginitis, unspecified documented in this encounter [facility] note* Diagnosis Sore throat- Primary Acute pharyngitis URI, acute Acute upper respiratory infections of unspecified site [facility]* Diagnosis Bacterial sinusitis- Primary Unspecified sinusitis (chronic) Acute CORIE (middle ear effusion), bilateral documented [facility] this [facility]* Diagnosis Type 1 diabetes mellitus without complication (HCC) Type I (juvenile type) diabetes mellitus without mention of complication, not stated as uncontrolled documented [facility] this encounter [facility]* Diagnosis Type 1 diabetes mellitus without complication (HCC)- Primary Type I (juvenile type) diabetes mellitus without mention of complication, not stated as uncontrolled [facility]* Diagnosis Bacterial sinusitis- Primary Unspecified sinusitis (chronic) documented in this encounter [facility]* Diagnosis Abnormal menses- Primary Unspecified disorder of menstruation and other abnormal bleeding from female genital tract documented [facility] this encounter [facility]* Diagnosis Unprotected sexual intercourse- Primary Problems related to high-risk sexual behavior Vaginal discharge Leukorrhea, not specified as infective Pelvic pain documented in this encounter [facility] note* Diagnosis Pelvic pain- Primary documented in this encounter [facility]* Diagnosis Viral upper respiratory infection- Primary Acute upper respiratory infections of unspecified site Strain of fascia of lower back Acute otitis media, left Unspecified otitis media documented [facility] this encounter [facility]* Diagnosis Missed menses- Primary test positive examination or test, positive result Hyperglycemia due to type 1 diabetes mellitus ([facility]) [facility]* Diagnosis Irregular menses- Primary Irregular menstrual cycle [facility]* Diagnosis Irregular menses- Primary Irregular menstrual cycle [facility]* Diagnosis Bleeding in early (HHS/HCC)- Primary Unspecified hemorrhage in early , unspecified as to episode of care Vaginal discharge Leukorrhea, not specified as infective [facility]* Diagnosis Vaginal yeast infection- Primary Candidiasis of vulva and vagina Bacterial vaginosis in [facility] Additional Instructions Implant Used?: [facility] Work Phone: Hospital Discharge instructions Additional Instructions Please perform the gentle stretches, ice, use naproxen. Make sure that you eat with the anti-inflammatory.[facility] Work Phone: Hospital Discharge instructions Additional Instructions Thank you for trusting us with your care today! Please take Tylenol (2 pills, 650 mg), ibuprofen (2 pills, 400 mg) every 6 hours as needed for pain and fever control. Please return to the emergency department if your symptoms change or worsen. Please follow-up on your online medical record for hemoglobin A1c results. Hemoglobin A1c is at goal standard test for diagnosing diabetes Please eat a low carbohydrate diet. This includes foods such as lean meats, vegetables, eggs. This does not include fruit, yogurt, Pasta. Please follow with your primary care physician for further outpatient evaluation and management.[facility] Work Phone: Hospital Discharge instructions* Attachments The following attachments cannot be sent through Care Everywhere. * : Hyperemesis Gravidarum ([place]) [facility]* Attachments The following attachments cannot be sent through Care Everywhere. * Carb Counting for Adults With Diabetes ([place]inese) * Care During for People With Type 1 or Type 2 Diabetes ([place]) [facility] (n[facility]ative)* Diagnostic Procedure Only (Routine) - Pending Review Specialty Diagnoses / Procedures Referred By Richmond banerjee Referred To Contact [facility] Diagnoses Encounter for supervision of high risk in first trimester, antepartum Pre-existing type 1 diabetes mellitus in in first trimester Procedures OBSTETRIC ULTRASOUND WHI US PREG UTERUS AFTER 1ST TRIMEST GESTATION Swapna Cardenas MD [address] [place] [address] [facility] [address] [place] [address] Referral ID Status Reason Start Date Expiration Date Visits Requested Visits Authorized [id number] Pending Review Auto-Generat ed Referral 09/21/2023 09/20/2024 1 1 [facility] for visit Narrative* Diagnostic Procedure Only (Urgent) - Closed Specialty Diagnoses / Procedures Referred By Richmond banerjee Referred To Contact XR IMAGING Diagnoses Injury of right ankle, initial encounter Procedures XR ANKLE GENERAL 3V AP/LAT/OBL RIGHT RADEX ANKLE COMPLETE MINIMUM 3 VIEWS Isabel De Santiago APRN.COOPERATIVE MANAGER [address] [place] [address] [place] [id number] Referral ID Status Reason Start Date Expiration Date V isits Requested Visits Authorized [id number] Closed Auto-Generate d Referral 04/08/2022 05/08/2023 1 [facility] Diagnostic Procedure Only (Routine) - Closed Specialty Diagnoses / Procedures Referred By Contac t Referred To Contact [facility] Diagnoses Pelvic pain Procedures PELVIC US WHI US PELVIC NONOBSTETRIC REAL-TIME IMAGE COMPLETE Breanne Joshi MD [address] [place] [address] Phone: tel: fax: [facility] [address] [place] [address] Referral ID Status Reason Start Date Expiration Date V isits Requested Visits Authorized [id number] Closed Auto-Generate d Referral 09/13/2024 09/13/2025 1 1 [facility] Reason for Referral Specialty Diagnoses / Procedures Referred By Contac t Referred To Contact Podiatry Diagnoses Closed nondisplaced avulsion fracture of right talus, initial encounter Procedures CONSULT TO PODIATRY OFFICE/OUTPATIENT [facility] 60-74 MINUTES Isabel De Santiago APRN.COOPERATIVE MANAGER [address] [place] [address] Referral ID Status Reason Start Date Expiration Date Visits Requested Visits Authorized [id number] Authorized PCP Requested Referral 04/08/2023 1 1 Specialty Diagnoses / Procedures Referred By Contac t Referred To Contact XR IMAGING Diagnoses Injury of right ankle, initial encounter Procedures XR ANKLE GENERAL 3V AP/LAT/OBL RIGHT RADEX ANKLE COMPLETE MINIMUM 3 VIEWS Isabel De Santiago APRN.COOPERATIVE MANAGER [address] [place] [address] Xr Imaging Referral ID Status Reason Start Date Expiration Date V isits Requested Visits Authorized [id number] Closed Auto-Generate d Referral 04/08/2022 05/08/2023 1 1 Specialty Diagnoses / Procedures Referred By Contac t Referred To Contact Urology Diagnoses Kidney stone complicating , first trimester Procedures CONSULT TO UROLOGY OFFICE/OUTPATIENT NEW HIGH MDM 60 MINUTES Roland Toro APRN.CNP [address] [place] [address] Referral ID Status Reason Start Date Expiration Date Visits Requested Visits Authorized [id number] Authorized PCP Requested Referral 08/13/2023 08/12/2024 1 1 Specialty Diagnoses / Procedures Referred By Contac t Referred To Contact Diagnoses with uncertain dates in first trimester Encounter for supervision of high risk in first trimester, antepartum Pre-existing type 1 diabetes mellitus in in first trimester Procedures CONSULT TO MATERNAL MEDI OFFICE/OUTPATIENT NEW HIGH MDM 60 MINUTES Roland Toro APRN.CNP [address] [address] Referral ID Status Reason Start Date Expiration Date Visits Requested Visits Authorized [id number] Authorized PCP Requested Referral Auto-Generate d Referral 08/13/2023 08/12/2024 1 1 Specialty Diagnoses / Procedures Referred By Richmond t Referred To Contact [facility] Diagnoses Encounter for supervision of high risk in first trimester, antepartum Procedures NUCHAL TRANSLUCENCY WHI US NUCHAL TRANSLUCENCY 1ST GESTATION Roland Toro APRN.CNP [address] [place] [address] [facility] [address] [place] [address] Referral ID Status Reason Start Date Expiration Date Visits Requested Visits Authorized [id number] Pending Review Auto-Generat ed Referral 08/13/2023 08/12/2024 1 1 Specialty Diagnoses / Procedures Referred By Richmond t Referred To Contact Nutrition Diagnoses Pre-existing type 1 diabetes mellitus in in first trimester Procedures CONSULT TO NUTRITION THERAPY MEDICAL NUTRITION ASSMT&IVNTJ INDIV EACH 15 IA MEDICAL NUTRITION ASSMT&IVNTJ INDIV EACH 15 IA MEDICAL NUTRITION ASSMT&IVNTJ INDIV EACH 15 IA MEDICAL NUTRITION ASSMT&IVNTJ INDIV EACH 15 IA Roland Toro APRN.CNP [address] [place] [address] Referral ID Status Reason Start Date Expiration Date Visits Requested Visits Authorized [id number] Authorized PCP Requested Referral 08/17/2023 08/16/2024 1 1 Specialty Diagnoses / Procedures Referred By Contac t Referred To Contact Cardiology Diagnoses SOB (shortness of breath) Tachycardia Procedures Transthoracic echocardiogram (TTE) complete with contrast, bubble, strain, and 3D PRN SD ECHO TTHRC R-T 2D W/WOM-MODE COMPL SPEC&COLR D SD TTE W OR WO FOL WCON,DOPPLER Flores Gilbert, LICENSED DISPENSING OPTICIAN - [place] [address] Referral ID Status Reason Start Date Expiration Date Visits Re quested Visits Authorized [id number] Closed 10/14/2023 12/13/2023 1 1 Specialty Diagnoses / Procedures Referred By Contac t Referred To Contact Endocrinology Diagnoses Type 1 diabetes mellitus without complication (HCC) Procedures CONSULT TO ENDOCRINOLOGY OFFICE/OUTPATIENT [facility] 60 MINUTES Breanne Joshi MD [address] [place] [address] Referral ID Status Reason Start Date Expiration Date Visits Requested Visits Authorized [id number] Authorized PCP Requested Referral 06/10/2025 1 1 Specialty Diagnoses / Procedures Referred By Contac t Referred To Contact Diagnoses Type 1 diabetes mellitus without complication (HCC) Procedures CONSULT TO DIABETES EDUCATION DSME MEDICAL NUTRITION ASSMT&IVNTJ INDIV EACH 15 IA MEDICAL NUTRITION ASSMT&IVNTJ INDIV EACH 15 IA MEDICAL NUTRITION ASSMT&IVNTJ INDIV EACH 15 IA MEDICAL NUTRITION ASSMT&IVNTJ INDIV EACH 15 IA Kourtney Sherman MD [address] [address] Referral ID Status Reason Start Date Expiration Date Visits Requested Visits Authorized [id number] Authorized PCP Requested Referral 07/18/2024 07/18/2025 1 1 Specialty Diagnoses / Procedures Referred By Contac t Referred To Contact Diagnoses Type 1 diabetes mellitus without complication (HCC) Kourtney Sherman MD [address] [address] Referral ID Status Reason Start Date Expiration Date V isits Requested Visits Authorized [id number] Pending Review 1 1 Health Concerns Infection Onset Date Last Indicated Resolved Time COVID-19 Rule-Out 05/28/2022 05/28/2022 Infection Onset Date Last Indicated Resolved Time COVID-19 Rule-Out 05/28/2022 05/28/2022 05/29/2022 1:59 AM EST Chief Complaint and Reason for Visit Chief Complaint UTI Chief Complaint UTI flank pain UROLITHIASIS, INTRACTABLE FLANK PAIN Reason for Visit Intractable pain Urolithiasis Chief Complaint UTI flank pain KIDNEY STONE Reason for Visit Acute flank pain Intractable pain Urolithiasis Chief Complaint KIDNEY STONE right shoulder Reason for Visit Acute flank pain Intractable pain Urolithiasis Chief Complaint CHEST PAIN b/l flank pain, hematuria BILAT KIDNEY PAIN hyperglycemia Chief Complaint b/l flank pain, sharri turia BILAT KIDNEY PAIN hyperglycemia ALLERGIC REACTION Chief Complaint b/l flank pain, sharri turia BILAT KIDNEY PAIN hyperglycemia ALLERGIC REACTION rash Advance Directives No Advanced Directives Records Found Advance Directive Response Recorded Date/ Time Living Will No March 29 11:59pm Power of Data Sciences Director No March 29 015 11:59pm Advance Directive Response Recorded Date/ Time Living Will No March 30 12:59am Power of Data Sciences Director No March 30 015 12:59am Advance Directive Response Recorded Date/ Time Living Will No April 15 1:05pm Power of Data Sciences Director No April 15, 2023 1:05pm Documents on File Type Date Recorded Patient Imagery Analyst Expl anation Advance Directives and Livin g Will 04/20/2023 9:19 PM Advance Directive Response Recorded Date/ Time Living Will No May 30 11:57pm Power of Data Sciences Director No May 30, 2023 11:57pm Advance Directive Response Recorded Date/ Time Living Will No May 31 8:56pm Power of Data Sciences Director No May 31, 2023 8:56pm Latest Code Status on File Code Status Date Activated Date Inactivated Comments Full Code 08/09/2023 3:23 PM 08/09/2023 11:11 PM Date Activated Date Inactivated Comments 09/21/2023 6:07 PM 09/22/2023 8:10 PM Latest Code Status on File Code Status Date Activated Date Inactivated Comments Full Code 10/30/2023 1:06 PM 10/31/2023 2:04 AM Code Status History Code Status Date Activated Date Inactivated Comments Full Code 08/09/2023 3:23 PM 08/09/2023 11:11 PM Date Activated Date Inactivated Comments 10/30/2023 1:06 PM 10/31/2023 2:04 AM Date Activated Date Inactivated Comments 08/09/2023 3:23 PM 08/09/2023 11:11 PM Date Activated Date Inactivated Comments 10/30/2023 1:06 PM 10/31/2023 2:04 AM Date Activated Date Inactivated Comments 08/09/2023 3:23 PM 08/09/2023 11:11 PM Date Activated Date Inactivated Comments 01/07/2024 8:16 PM 01/10/2024 3:00 AM Date Activated Date Inactivated Comments 10/30/2023 1:06 PM 10/31/2023 2:04 AM Date Activated Date Inactivated Comments 08/09/2023 3:23 PM 08/09/2023 11:11 PM Date Activated Date Inactivated Comments 01/07/2024 8:16 PM 01/10/2024 3:00 AM Date Activated Date Inactivated Comments 10/30/2023 1:06 PM 10/31/2023 2:04 AM Date Activated Date Inactivated Comments 08/09/2023 3:23 PM 08/09/2023 11:11 PM Date Activated Date Inactivated Comments 02/18/2024 4:52 PM 02/25/2024 1:21 PM Date Activated Date Inactivated Comments 01/07/2024 8:16 PM 01/10/2024 3:00 AM Date Activated Date Inactivated Comments 10/30/2023 1:06 PM 10/31/2023 2:04 AM Date Activated Date Inactivated Comments 08/09/2023 3:23 PM 08/09/2023 11:11 PM Summary Purpose Family History No Family History Records FoundNo Family History Records Found No data available for this section No Family History Records FoundNo Family History Records FoundNo Family History Records Found No data available for this section No Family History Records Found No data available for this section No data available for this section No Family History Records FoundNo Family History Records Found No data available for this section No Family History Records Found Additional Source Comments Source Comments (unrecognize d section and content) In the event this informatio n is protected by the Federal Confidentiality of Alcohol and Drug Abuse Patient Records regulations: The Federal rules restrict any use of the information to criminally investigate or prosecute any alcohol or drug abuse patient.[facility] the event this information is protected by the Federal Confidentiality of Alcohol and Drug Abuse Patient Records regulations: The Federal rules restrict any use of the information to criminally investigate or prosecute any alcohol or drug abuse patient.[facility] CenterIn the event this information is protected by the Federal Confidentiality of Alcohol and Drug Abuse Patient Records regulations: The Federal rules restrict any use of the information to criminally investigate or prosecute any alcohol or drug abuse patient.[facility] CenterIn the event this information is protected by the Federal Confidentiality of Alcohol and Drug Abuse Patient Records regulations: The Federal rules restrict any use of the information to criminally investigate or prosecute any alcohol or drug abuse patient.[facility] CenterIn the event this information is protected by the Federal Confidentiality of Alcohol and Drug Abuse Patient Records regulations: The Federal rules restrict any use of the information to criminally investigate or prosecute any alcohol or drug abuse patient.[facility] CenterIn the event this information is protected by the Federal Confidentiality of Alcohol and Drug Abuse Patient Records regulations: The Federal rules restrict any use of the information to criminally investigate or prosecute any alcohol or drug abuse patient.[facility] CenterIn the event this information is protected by the Federal Confidentiality of Alcohol and Drug Abuse Patient Records regulations: The Federal rules restrict any use of the information to criminally investigate or prosecute any alcohol or drug abuse patient.[facility] CenterIn the event this information is protected by the Federal Confidentiality of Alcohol and Drug Abuse Patient Records regulations: The Federal rules restrict any use of the information to criminally investigate or prosecute any alcohol or drug abuse patient.[facility] CenterIn the event this information is protected by the Federal Confidentiality of Alcohol and Drug Abuse Patient Records regulations: The Federal rules restrict any use of the information to criminally investigate or prosecute any alcohol or drug abuse patient.[facility] CenterIn the event this information is protected by the Federal Confidentiality of Alcohol and Drug Abuse Patient Records regulations: The Federal rules restrict any use of the information to criminally investigate or prosecute any alcohol or drug abuse patient.[facility] CenterIn the event this information is protected by the Federal Confidentiality of Alcohol and Drug Abuse Patient Records regulations: The Federal rules restrict any use of the information to criminally investigate or prosecute any alcohol or drug abuse patient.[facility] CenterIn the event this information is protected by the Federal Confidentiality of Alcohol and Drug Abuse Patient Records regulations: The Federal rules restrict any use of the information to criminally investigate or prosecute any alcohol or drug abuse patient.[facility] CenterIn the event this information is protected by the Federal Confidentiality of Alcohol and Drug Abuse Patient Records regulations: The Federal rules restrict any use of the information to criminally investigate or prosecute any alcohol or drug abuse patient.[facility] CenterIn the event this information is protected by the Federal Confidentiality of Alcohol and Drug Abuse Patient Records regulations: The Federal rules restrict any use of the information to criminally investigate or prosecute any alcohol or drug abuse patient.[facility] CenterIn the event this information is protected by the Federal Confidentiality of Alcohol and Drug Abuse Patient Records regulations: The Federal rules restrict any use of the information to criminally investigate or prosecute any alcohol or drug abuse patient.[facility] CenterIn the event this information is protected by the Federal Confidentiality of Alcohol and Drug Abuse Patient Records regulations: The Federal rules restrict any use of the information to criminally investigate or prosecute any alcohol or drug abuse patient.[facility] CenterIn the event this information is protected by the Federal Confidentiality of Alcohol and Drug Abuse Patient Records regulations: The Federal rules restrict any use of the information to criminally investigate or prosecute any alcohol or drug abuse patient.[facility] CenterIn the event this information is protected by the Federal Confidentiality of Alcohol and Drug Abuse Patient Records regulations: The Federal rules restrict any use of the information to criminally investigate or prosecute any alcohol or drug abuse patient.[facility] CenterIn the event this information is protected by the Federal Confidentiality of Alcohol and Drug Abuse Patient Records regulations: The Federal rules restrict any use of the information to criminally investigate or prosecute any alcohol or drug abuse patient.[facility] CenterIn the event this information is protected by the Federal Confidentiality of Alcohol and Drug Abuse Patient Records regulations: The Federal rules restrict any use of the information to criminally investigate or prosecute any alcohol or drug abuse patient.[facility] CenterIn the event this information is protected by the Federal Confidentiality of Alcohol and Drug Abuse Patient Records regulations: The Federal rules restrict any use of the information to criminally investigate or prosecute any alcohol or drug abuse patient.[facility] CenterIn the event this information is protected by the Federal Confidentiality of Alcohol and Drug Abuse Patient Records regulations: The Federal rules restrict any use of the information to criminally investigate or prosecute any alcohol or drug abuse patient.[facility] CenterIn the event this information is protected by the Federal Confidentiality of Alcohol and Drug Abuse Patient Records regulations: The Federal rules restrict any use of the information to criminally investigate or prosecute any alcohol or drug abuse patient.[facility] CenterIn the event this information is protected by the Federal Confidentiality of Alcohol and Drug Abuse Patient Records regulations: The Federal rules restrict any use of the information to criminally investigate or prosecute any alcohol or drug abuse patient.[facility] CenterIn the event this information is protected by the Federal Confidentiality of Alcohol and Drug Abuse Patient Records regulations: The Federal rules restrict any use of the information to criminally investigate or prosecute any alcohol or drug abuse patient.[facility] CenterIn the event this information is protected by the Federal Confidentiality of Alcohol and Drug Abuse Patient Records regulations: The Federal rules restrict any use of the information to criminally investigate or prosecute any alcohol or drug abuse patient.[facility] CenterIn the event this information is protected by the Federal Confidentiality of Alcohol and Drug Abuse Patient Records regulations: The Federal rules restrict any use of the information to criminally investigate or prosecute any alcohol or drug abuse patient.[facility] CenterIn the event this information is protected by the Federal Confidentiality of Alcohol and Drug Abuse Patient Records regulations: The Federal rules restrict any use of the information to criminally investigate or prosecute any alcohol or drug abuse patient.[facility] CenterIn the event this information is protected by the Federal Confidentiality of Alcohol and Drug Abuse Patient Records regulations: The Federal rules restrict any use of the information to criminally investigate or prosecute any alcohol or drug abuse patient.[facility] CenterIn the event this information is protected by the Federal Confidentiality of Alcohol and Drug Abuse Patient Records regulations: The Federal rules restrict any use of the information to criminally investigate or prosecute any alcohol or drug abuse patient.[facility] CenterIn the event this information is protected by the Federal Confidentiality of Alcohol and Drug Abuse Patient Records regulations: The Federal rules restrict any use of the information to criminally investigate or prosecute any alcohol or drug abuse patient.[facility] CenterIn the event this information is protected by the Federal Confidentiality of Alcohol and Drug Abuse Patient Records regulations: The Federal rules restrict any use of the information to criminally investigate or prosecute any alcohol or drug abuse patient.[facility] CenterIn the event this information is protected by the Federal Confidentiality of Alcohol and Drug Abuse Patient Records regulations: The Federal rules restrict any use of the information to criminally investigate or prosecute any alcohol or drug abuse patient.[facility] CenterIn the event this information is protected by the Federal Confidentiality of Alcohol and Drug Abuse Patient Records regulations: The Federal rules restrict any use of the information to criminally investigate or prosecute any alcohol or drug abuse patient.[facility] CenterIn the event this information is protected by the Federal Confidentiality of Alcohol and Drug Abuse Patient Records regulations: The Federal rules restrict any use of the information to criminally investigate or prosecute any alcohol or drug abuse patient.[facility] CenterIn the event this information is protected by the Federal Confidentiality of Alcohol and Drug Abuse Patient Records regulations: The Federal rules restrict any use of the information to criminally investigate or prosecute any alcohol or drug abuse patient.[facility] CenterIn the event this information is protected by the Federal Confidentiality of Alcohol and Drug Abuse Patient Records regulations: The Federal rules restrict any use of the information to criminally investigate or prosecute any alcohol or drug abuse patient.[facility] CenterIn the event this information is protected by the Federal Confidentiality of Alcohol and Drug Abuse Patient Records regulations: The Federal rules restrict any use of the information to criminally investigate or prosecute any alcohol or drug abuse patient.[facility] CenterIn the event this information is protected by the Federal Confidentiality of Alcohol and Drug Abuse Patient Records regulations: The Federal rules restrict any use of the information to criminally investigate or prosecute any alcohol or drug abuse patient.[facility] CenterIn the event this information is protected by the Federal Confidentiality of Alcohol and Drug Abuse Patient Records regulations: The Federal rules restrict any use of the information to criminally investigate or prosecute any alcohol or drug abuse patient.[facility] CenterIn the event this information is protected by the Federal Confidentiality of Alcohol and Drug Abuse Patient Records regulations: The Federal rules restrict any use of the information to criminally investigate or prosecute any alcohol or drug abuse patient.[facility] CenterIn the event this information is protected by the Federal Confidentiality of Alcohol and Drug Abuse Patient Records regulations: The Federal rules restrict any use of the information to criminally investigate or prosecute any alcohol or drug abuse patient.[facility] CenterIn the event this information is protected by the Federal Confidentiality of Alcohol and Drug Abuse Patient Records regulations: The Federal rules restrict any use of the information to criminally investigate or prosecute any alcohol or drug abuse patient.[facility]In the event this information is protected by the Federal Confidentiality of Alcohol and Drug Abuse Patient Records regulations: The Federal rules restrict any use of the information to criminally investigate or prosecute any alcohol or drug abuse patient.[facility] CenterIn the event this information is protected by the Federal Confidentiality of Alcohol and Drug Abuse Patient Records regulations: The Federal rules restrict any use of the information to criminally investigate or prosecute any alcohol or drug abuse patient.[facility] CenterIn the event this information is protected by the Federal Confidentiality of Alcohol and Drug Abuse Patient Records regulations: The Federal rules restrict any use of the information to criminally investigate or prosecute any alcohol or drug abuse patient.[facility]In the event this information is protected by the Federal Confidentiality of Alcohol and Drug Abuse Patient Records regulations: The Federal rules restrict any use of the information to criminally investigate or prosecute any alcohol or drug abuse patient.[facility] CenterIn the event this information is protected by the Federal Confidentiality of Alcohol and Drug Abuse Patient Records regulations: The Federal rules restrict any use of the information to criminally investigate or prosecute any alcohol or drug abuse patient.[facility] CenterIn the event this information is protected by the Federal Confidentiality of Alcohol and Drug Abuse Patient Records regulations: The Federal rules restrict any use of the information to criminally investigate or prosecute any alcohol or drug abuse patient.[facility] CenterIn the event this information is protected by the Federal Confidentiality of Alcohol and Drug Abuse Patient Records regulations: The Federal rules restrict any use of the information to criminally investigate or prosecute any alcohol or drug abuse patient.[facility] CenterIn the event this information is protected by the Federal Confidentiality of Alcohol and Drug Abuse Patient Records regulations: The Federal rules restrict any use of the information to criminally investigate or prosecute any alcohol or drug abuse patient.[facility]In the event this information is protected by the Federal Confidentiality of Alcohol and Drug Abuse Patient Records regulations: The Federal rules restrict any use of the information to criminally investigate or prosecute any alcohol or drug abuse patient.[facility]In the event this information is protected by the Federal Confidentiality of Alcohol and Drug Abuse Patient Records regulations: The Federal rules restrict any use of the information to criminally investigate or prosecute any alcohol or drug abuse patient.[facility] CenterIn the event this information is protected by the Federal Confidentiality of Alcohol and Drug Abuse Patient Records regulations: The Federal rules restrict any use of the information to criminally investigate or prosecute any alcohol or drug abuse patient.[facility]In the event this information is protected by the Federal Confidentiality of Alcohol and Drug Abuse Patient Records regulations: The Federal rules restrict any use of the information to criminally investigate or prosecute any alcohol or drug abuse patient.[facility]In the event this information is protected by the Federal Confidentiality of Alcohol and Drug Abuse Patient Records regulations: The Federal rules restrict any use of the information to criminally investigate or prosecute any alcohol or drug abuse patient.[facility]In the event this information is protected by the Federal Confidentiality of Alcohol and Drug Abuse Patient Records regulations: The Federal rules restrict any use of the information to criminally investigate or prosecute any alcohol or drug abuse patient.[facility]In the event this information is protected by the Federal Confidentiality of Alcohol and Drug Abuse Patient Records regulations: The Federal rules restrict any use of the information to criminally investigate or prosecute any alcohol or drug abuse patient.[facility]In the event this information is protected by the Federal Confidentiality of Alcohol and Drug Abuse Patient Records regulations: The Federal rules restrict any use of the information to criminally investigate or prosecute any alcohol or drug abuse patient.[facility]In the event this information is protected by the Federal Confidentiality of Alcohol and Drug Abuse Patient Records regulations: The Federal rules restrict any use of the information to criminally investigate or prosecute any alcohol or drug abuse patient.[facility]In the event this information is protected by the Federal Confidentiality of Alcohol and Drug Abuse Patient Records regulations: The Federal rules restrict any use of the information to criminally investigate or prosecute any alcohol or drug abuse patient.[facility]In the event this information is protected by the Federal Confidentiality of Alcohol and Drug Abuse Patient Records regulations: The Federal rules restrict any use of the information to criminally investigate or prosecute any alcohol or drug abuse patient.[facility]In the event this information is protected by the Federal Confidentiality of Alcohol and Drug Abuse Patient Records regulations: The Federal rules restrict any use of the information to criminally investigate or prosecute any alcohol or drug abuse patient.[facility]In the event this information is protected by the Federal Confidentiality of Alcohol and Drug Abuse Patient Records regulations: The Federal rules restrict any use of the information to criminally investigate or prosecute any alcohol or drug abuse patient.[facility] CenterIn the event this information is protected by the Federal Confidentiality of Alcohol and Drug Abuse Patient Records regulations: The Federal rules restrict any use of the information to criminally investigate or prosecute any alcohol or drug abuse patient.[facility]In the event this information is protected by the Federal Confidentiality of Alcohol and Drug Abuse Patient Records regulations: The Federal rules restrict any use of the information to criminally investigate or prosecute any alcohol or drug abuse patient.[facility]In the event this information is protected by the Federal Confidentiality of Alcohol and Drug Abuse Patient Records regulations: The Federal rules restrict any use of the information to criminally investigate or prosecute any alcohol or drug abuse patient.[facility]In the event this information is protected by the Federal Confidentiality of Alcohol and Drug Abuse Patient Records regulations: The Federal rules restrict any use of the information to criminally investigate or prosecute any alcohol or drug abuse patient.[facility]In the event this information is protected by the Federal Confidentiality of Alcohol and Drug Abuse Patient Records regulations: The Federal rules restrict any use of the information to criminally investigate or prosecute any alcohol or drug abuse patient.[facility] CenterIn the event this information is protected by the Federal Confidentiality of Alcohol and Drug Abuse Patient Records regulations: The Federal rules restrict any use of the information to criminally investigate or prosecute any alcohol or drug abuse patient.[facility]In the event this information is protected by the Federal Confidentiality of Alcohol and Drug Abuse Patient Records regulations: The Federal rules restrict any use of the information to criminally investigate or prosecute any alcohol or drug abuse patient.[facility] CenterIn the event this information is protected by the Federal Confidentiality of Alcohol and Drug Abuse Patient Records regulations: The Federal rules restrict any use of the information to criminally investigate or prosecute any alcohol or drug abuse patient.[facility] Center[facility] the event this information is protected by the Federal Confidentiality of Alcohol and Drug Abuse Patient Records regulations: The Federal rules restrict any use of the information to criminally investigate or prosecute any alcohol or drug abuse patient.[facility] CenterIn the event this information is protected by the Federal Confidentiality of Alcohol and Drug Abuse Patient Records regulations: The Federal rules restrict any use of the information to criminally investigate or prosecute any alcohol or drug abuse patient.[facility] CenterIn the event this information is protected by the Federal Confidentiality of Alcohol and Drug Abuse Patient Records regulations: The Federal rules restrict any use of the information to criminally investigate or prosecute any alcohol or drug abuse patient.[facility] CenterIn the event this information is protected by the Federal Confidentiality of Alcohol and Drug Abuse Patient Records regulations: The Federal rules restrict any use of the information to criminally investigate or prosecute any alcohol or drug abuse patient.[facility] CenterIn the event this information is protected by the Federal Confidentiality of Alcohol and Drug Abuse Patient Records regulations: The Federal rules restrict any use of the information to criminally investigate or prosecute any alcohol or drug abuse patient.[facility] Reason for Visit (unrecogniz ed section and content) Reason Comments Results Reason Comments Fall Pt presented with pa rent, reported (RT) foot/ankle injury swelling, x1 day pain rated 8. Reason Comments New Reason Onset Date Comments Patient Question 04/15/2022 Reason Comments Urinary Frequency With burning x1 week Reason Comments Sore Throat fever and chills x 3 days Reason Comments UTI Low back pain, bodya ches Reason Comments Tachycardia Reason Comments Urinary Frequency low back pain x 2 da ys Reason Comments Sore Throat CAT, fever, fatigue, nausea x 1 dayPossible uti, lower back pain x 8 days Reason Comments Vaginal Problem Reason Comments Urinary Frequency With back pain x2 da ys Reason Onset Date Comments Refill Request 02/16/2023 Reason Comments Urinary Frequency Frequency and urgenc y x 2 days Reason Comments Opened In Error Reason Comments Hyperglycemia Specialty Diagnoses / Procedures Referred By Contac t Referred To Contact General Care Diagnoses Hyperglycemia [place] [address] Referral ID Status Reason Start Date Expiration Date Visits Re quested Visits Authorized [id number] 1 1 Reason Comments Urticaria Hyperglycemia Reason Comments Cough Congestion, ST, SOB x3 days Reason Comments Hypoglycemia Reason Comments Initial OB Visit Reason Comments PRAF Reason Comments Shortness of Breath Patient is 12 weeks , reports worsening shortness of breath, and palpitations x3 days as well as migraines Reason Comments Respiratory Distress Reason Comments Enrollment Reason Comments Orders Reason Comments Dizziness Specialty Diagnoses / Procedures Referred By Contac t Referred To Contact Diagnoses Hypovolemia associated with vomiting Referral ID Status Reason Start Date Expiration Date Visits Re quested Visits Authorized [id number] 1 1 Reason Comments Urinary Frequency urgency of urination x 3 days Reason Comments Hyperglycemia Diabetes management Specialty Diagnoses / Procedures Referred By Contac t Referred To Contact Diagnoses Type 1 diabetes mellitus complicating in second trimester, antepartum Procedures .. Hugo Rodriguez MD [address] [facility] [place] [address] [address] [place] [address] Referral ID Status Reason Start Date Expiration Date Visits Re quested Visits Authorized [id number] 1 1 Reason Onset Date Comments Test Scheduling 12/05/2023 Reason Comments Non-stress Test 12/04 bpp Specialty Diagnoses / Procedures Referred By Contac t Referred To Contact Diagnoses Diabetes mellitus affecting in third trimester Procedures O24.913 Ivan Sharma, [place] [address] [address] [place] [address] Referral ID Status Reason Start Date Expiration Date Visits Re quested Visits Authorized [id number] 1 1 Reason Comments Non-stress Test Reason Comments Hypertension Blood pressures were in the 140/90s at home. Had CAT in the morning, but went away. Reason Comments Hypertension From BP monitor at h ome, Also CAT Reason Comments Hypertension Specialty Diagnoses / Procedures Referred By Contac t Referred To Contact Diagnoses Preeclampsia, third trimester Procedures .. Hugo Rodriguez MD [address] [place] [address] [address] [place] [address] Referral ID Status Reason Start Date Expiration Date Visits Re quested Visits Authorized [id number] 1 1 Reason Comments Sore Throat Body aches, headache x 3 days Reason Comments Contraception Reason Comments type 1 diabetes Specialty Diagnoses / Procedures [facility] To Contact Endocrinology Diagnoses Type 1 diabetes mellitus without complication (HCC) Procedures CONSULT TO ENDOCRINOLOGY OFFICE/OUTPATIENT [facility] 60 MINUTES Breanne Joshi MD [address] [address] Referral ID Status Reason Start Date Expiration Date V isits Requested Visits Authorized [id number] Closed PCP Requested Referral 06/10/2024 06/10/2025 1 1 Reason Comments Prior Auth for Omnipods Reason Comments Urinary Problem Reason Comments Refill Request Reason Onset Date Comments Refill Request 09/08/2024 Reason Onset Date Comments Results 09/08/2024 Reason Comments Allergic Reaction Flagyl for BV, has t aken 4 doses, now having numbness and tingling in all 4 extremities Reason Comments Vaginal Problem Reason Comments Sore Throat Reason Comments Sinus Problem sinus pressure, drai nage, headache x 1 week Reason Comments Pa Omnipod Kit Reason Comments Resubmit Omnipod Kits Reason Comments type 1 diabetes Reason Comments Sinus Problem sinus pressure, drai nage x 3 days Reason Comments Menstrual Problem 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 Reason Comments Insulin Dependent Diabetes Mellitus Reason Comments Orders Prior Authorization request Dexcom G6 transmitter Reason Comments Head Congestion ST<,CAT, cough, runny nose, low back pain x2 days, reports elevated glucose readings since being sick Reason Onset Date Comments Population Health Navigation Outreach 03/09/2025 Pcp wq Reason Onset Date Comments Problem 03/13/2025 Reason Comments Patient Question Reason Comments New Patient No concerns Reason Onset Date Comments Vaginal Bleeding 03/31/2025 Reason Comments Follow-up Spotting during rose y Care Teams (unrecognized sec tion and content) Compressor Assembler Relationship Specialty Start Date End Date Dian Velez PCP - General 01/08/10 Compressor Assembler Relationship Specialty Start Date End Date Dian Velez PCP - General 01/08/10 Compressor Assembler Relationship Specialty Start Date End Date Dian Velez PCP - General 01/08/10 Compressor Assembler Relationship Specialty Start Date End Date Dian Velez PCP - General 01/08/10 Compressor Assembler Relationship Specialty Start Date End Date Dian Velez PCP - General 01/08/10 Compressor Assembler Relationship Specialty Start Date End Date Dian Velez PCP - General 01/08/10 Compressor Assembler Relationship Specialty Start Date End Date Dian Velez PCP - General 01/08/10 Compressor Assembler Relationship Specialty Start Date End Date Dian Velez MD [address] [place] [address] PCP - General Pediatrics 06/09/22 Compressor Assembler Relationship Specialty Start Date End Date Dian Velez PCP - General 01/08/10 Compressor Assembler Relationship Specialty Start Date End Date Dian Velez PCP - General 01/08/10 Compressor Assembler Relationship Specialty Start Date End Date Dian Velez PCP - General 01/08/10 Team Status: Active Member Role Status Dates Dr. Dian Velez MD Family Provider Active Dr. Dian Velez MD Primary Care Provider Active Team Status: Inactive Member Role Status Dates Dr. Dian Velez MD Primary Care Provider Active Dr. Will Portillo DO Attending Provider, Emergency P monique Active Team Status: Inactive Member Role Status Dates Dr. Dian Velez MD Primary Care Provider Active Dr. Alverto Vasquez MD Attending Provider, Emergency Pr ovider Active Team Status: Active Member Role Status Dates Dr. Dian Velez MD Primary Care Provider Active Dr. Valerie Blackwell DO Emergency Provider Active Dr. Jonathan Lan MD Admit Provider, Attending Provider Active Team Status: Inactive Member Role Status Dates Dr. Dian Velez MD Primary Care Provider Active Dr. Valerie Blackwell DO Emergency Provider Active Dr. Jonathan Lan MD Admit Provider, Attending Provider Active Compressor Assembler Relationship Specialty Start Date End Date Dian Velez Wendy PCP - General 01/08/10 Compressor Assembler Relationship Specialty Start Date End Date Dian Velez PCP - General 01/08/10 Team Status: Inactive Member Role Status Dates Dr. Dian Velez MD Primary Care Provider Active Dr. Angel Sparks MD Emergency Provider Active Compressor Assembler Relationship Specialty Start Date End Date Dian Velez PCP - General 01/08/10 Compressor Assembler Relationship Specialty Start Date End Date Dian Velez MD [address] [place] [phone] PCP - General Pediatrics 06/09/22 Dian Velez MD [address] [place] [id number] 06/09/22 Team Status: Inactive Member Role Status Dates Dr. Dian Velez MD Primary Care Provider Active Dr. Alvarez Nguyen DO Emergency Provider Active Team Status: Inactive Member Role Status Dates Dr. Dian Velez MD Primary Care Provider Active Xavier Peck MD Attending Provider, Emergency Provid er Active Team Status: Inactive Member Role Status Dates Dr. Dian Velez MD Primary Care Provider Active Dr. Peterson Prado DO Attending Provider, Emergency Pr ovider Active Compressor Assembler Relationship Specialty Start Date End Date Dian Velez PCP - General 01/08/10 Compressor Assembler Relationship Specialty Start Date End Date Dian Velez PCP - General 01/08/10 Compressor Assembler Relationship Specialty Start Date End Date Dian Velez PCP - General 01/08/10 Compressor Assembler Relationship Specialty Start Date End Date Dian Velez MD [address] [place] [id number] PCP - General Pediatrics 06/09/22 Dian Velez MD [address] [place] [address] 06/09/22 Compressor Assembler Relationship Specialty Start Date End Date Dian Velez MD [address] [place] [id number] PCP - General Pediatrics 06/09/22 Dian Velez MD [address] [place] [phone] (Fax) 06/09/22 Team Status: Inactive Member Role Status Dates Dr. Dian Velez MD Primary Care Provider Active Dr. Alvarez Nguyen DO Attending Provider, Emergency Lindsey amaya Active Team Status: Inactive Member Role Status Dates Dr. Dian Velez MD Primary Care Provider Active Dr. Sami Beck MD Emergency Provider Active Team Status: Inactive Member Role Status Dates Dr. Dian Velez MD Primary Care Provider Active Xavier Peck MD Emergency Provider Active Compressor Assembler Relationship Specialty Start Date End Date Dian Velez MD [address] [place] [address] PCP - General Pediatrics 06/09/22 Dian Velez MD [address] [place] [address] (Fax) 06/09/22 Compressor Assembler Relationship Specialty Start Date End Date Dian Velez MD (Fax) PCP - General 01/08/10 Compressor Assembler Relationship Specialty Start Date End Date Dian Velez MD PCP - General 01/08/10 Compressor Assembler Relationship Specialty Start Date End Date Dian Velez MD PCP - General 01/08/10 Compressor Assembler Relationship Specialty Start Date End Date Dian Velez MD PCP - General 01/08/10 Compressor Assembler Relationship Specialty Start Date End Date Dian Velez MD PCP - General 01/08/10 Compressor Assembler Relationship Specialty Start Date End Date Dian Velez MD PCP - General 01/08/10 Compressor Assembler Relationship Specialty Start Date End Date Dian Velez MD [address] [place] [address] PCP - General Pediatrics 06/09/22 Dian Velez MD [address] [place] [phone] 06/09/22 Compressor Assembler Relationship Specialty Start Date End Date Dian Velez MD (Fax) PCP - General 01/08/10 Compressor Assembler Relationship Specialty Start Date End Date Dian Velez MD [address] [place] [id number] PCP - General Pediatrics 07/14/23 Compressor Assembler Relationship Specialty Start Date End Date Dian Velez MD (Fax) PCP - General 01/08/10 Compressor Assembler Relationship Specialty Start Date End Date Dian Velez MD (Fax) PCP - General 01/08/10 Compressor Assembler Relationship Specialty Start Date End Date Dian Velez MD [address] [place] [phone] (Fax) PCP - General Pediatrics 06/09/22 Dian Velez MD [address] [place] [phone] 06/09/22 Compressor Assembler Relationship Specialty Start Date End Date Dian Velez MD [address] [place] [phone] (Fax) PCP - General Pediatrics 06/09/22 Dian Velez MD [address] [place] [phone] (Fax) 06/09/22 Compressor Assembler Relationship Specialty Start Date End Date Dian Velez MD (Fax) PCP - General 01/08/10 Compressor Assembler Relationship Specialty Start Date End Date Dian Velez MD (Fax) PCP - General 01/08/10 Compressor Assembler Relationship Specialty Start Date End Date Dian Velez MD PCP - General 01/08/10 Compressor Assembler Relationship Specialty Start Date End Date Dian Velez MD (Fax) PCP - General 01/08/10 Compressor Assembler Relationship Specialty Start Date End Date Dian Velez MD (Fax) PCP - General 01/08/10 Compressor Assembler Relationship Specialty Start Date End Date Dian Velez MD PCP - General 01/08/10 Compressor Assembler Relationship Specialty Start Date End Date Dian Velez MD PCP - General 01/08/10 Compressor Assembler Relationship Specialty Start Date End Date Dian Velez MD PCP - General 01/08/10 Compressor Assembler Relationship Specialty Start Date End Date Dian Velez MD (Fax) PCP - General 01/08/10 Compressor Assembler Relationship Specialty Start Date End Date Dian Velez MD PCP - General 01/08/10 Compressor Assembler Relationship Specialty Start Date End Date Dian Velez MD PCP - General 01/08/10 Compressor Assembler Relationship Specialty Start Date End Date Dian Velez MD PCP - General 01/08/10 Compressor Assembler Relationship Specialty Start Date End Date Dian Velez MD PCP - General 01/08/10 Compressor Assembler Relationship Specialty Start Date End Date Dian Velez MD PCP - General 01/08/10 Compressor Assembler Relationship Specialty Start Date End Date Dian Velez MD PCP - General 01/08/10 Compressor Assembler Relationship Specialty Start Date End Date Dian Velez MD PCP - General 01/08/10 Compressor Assembler Relationship Specialty Start Date End Date Dian Velez MD PCP - General 01/08/10 Compressor Assembler Relationship Specialty Start Date End Date Dian Velez MD PCP - General 01/08/10 11/22/24 Goals (unrecognized section and content) Goals may be documented in a n alternate sectionGoals may be documented in an alternate sectionGoals may be documented in an alternate sectionGoals may be documented in an alternate sectionGoals may be documented in an alternate section No data available for this section No data available for this section No data available for this section No data available for this section No data available for this section INFORMATION SOURCE (unrecogn ized section and content) DATE CREATED AUTHOR 06/09/2022 [facility] DATE CREATED AUTHOR AUTHOR'S ORGANIZ ATION 06/15/2023 [facility] DATE CREATED AUTHOR AUTHOR'S ORGANIZ ATION 06/25/2023 [facility] ([place] DATE CREATED AUTHOR AUTHOR[facility]S ORGANIZ ATION [facility] DATE CREATED AUTHOR AUTHOR'S ORGANIZ ATION 03/29/2024 [facility] DATE CREATED AUTHOR AUTHOR'S ORGANIZ ATION 07/28/2024 [facility] DATE CREATED AUTHOR AUTHOR'S ORGANIZ ATION 04/23/2025 [facility] DATE CREATED AUTHOR AUTHOR'S ORGANIZ ATION 05/05/2025 [facility] DATE CREATED AUTHOR AUTHOR'S ORGANIZ ATION 05/11/2025 [facility] Scheduled Active and Recently Administ ered Medications (unrecognized section and content) Medication Order 06/07/2022 06/08/2022 06/09/2022 ibuprofen (MOTRIN) tablet 600 mg (COMPLETED) 600 mg (9.68 mg/kg/DOSE), Oral, ONCE, 1 dose, On Thu06/09/22 at 1215 1222 (Given - Provid er: Tami De RN - Comment: Given po, tolerated well.) NaCl 0.9% IV (COMPLETED) 1,000 mL (16.1 ml/kg/DOSE), Intravenous, ONCE, 1 dose, On Thu06/09/22 at 1115, Administer over 61 Minutes 1131 (New Bag - Prov ider: Tami De RN)1403 (Stopped - Provider: Tami De RN) NaCl 0.9% IV (COMPLETED) 1,000 mL (16.1 ml/kg/DOSE), Intravenous, ONCE, 1 dose, On Thu06/09/22 at 1445, Administer over 61 Minutes 1456 (New Bag - Prov ider: Tami De RN)1557 (Rate/Dose Change - Provider: Breanne Angelo RN)1617 (Stopped - Provider: Breanne Angelo RN) PRN Medication Order 06/07/2022 06/08/2022 06/09/2022 NaCl 0.9% PosiFlush 10 mL 10 mL PRN (0.161 ml/kg/DOSE), Intravenous, at 0-999 mL/hr, Line Care, Starting on Thu06/09/22 at 1100, For 90 days NaCl 0.9% PosiFlush 2 mL 2 mL PRN (0.0323 ml/kg/DOSE), Intravenous, at 0-999 mL/hr, Line Care, Starting on Thu06/09/22 at 1100, For 90 days Scheduled Medication Order 04/20/2023 04/21/2023 04/22/2023 Influenza Quadrivalent vaccine 0.5 mL 0.5 mL (0.31930 ml/kg/DOSE), Intramuscular, IMMUNIZATION, 1 dose, Starting on Thu04/22/23 at 1059, Until Thu04/22/23 at 1434 insulin glargine (LANTUS) injection 20 Units 20 Units (0.313 Units/kg/DAY), Subcutaneous, at Bedtime, 90 doses, First dose on Thu04/20/23 at 2300, Last dose on Thu07/18/23 at 2100 2325 (Given - Provider: Magi Quiñones RN) 2139 (Given - Provider: Luz Marina Baltazar RN) insulin lispro (HumaLOG Ryan) kwikpen (Meals/Bedtime-Pen Calculator) 0-30 Units (CANCELED) 0-30 Units (0-5.64 Units/kg/DAY), Subcutaneous, EVERY 2 HOURS, 1080 doses, First dose on Thu04/20/23 at 2300, Last dose on Thu07/19/23 at 2200, Calculated doses can be validated in this manner: (Current blood glucose - blood glucose target)/correction factor = Glucose Correction Dose. Carb intake/carb ratio = carbohydrate-based dose. Glucose correction dose + carbohydrate-based dose = Total Insulin dose to be administered. 2317 (Given - Provider: Magi Quiñones RN) 0127 (Given - Provider: Magi Quiñones, JES)0343 (Given - Provider: Lucy Sarmiento RN)0611 (Given - Provider: Magi Quiñones, JES) insulin lispro (HumaLOG Ryan) kwikpen (Meals/Bedtime-Pen Calculator) 0-30 Units (CANCELED) 0-30 Units (0-2.35 Units/kg/DAY), Subcutaneous, Before meals/at bedtime/0200, First dose (after last modification) on Thu04/21/23 at 0830, Until Discontinued, Calculated doses can be validated in this manner: (Current blood glucose - blood glucose target)/correction factor = Glucose Correction Dose. Carb intake/carb ratio = carbohydrate-based dose. Glucose correction dose + carbohydrate-based dose = Total Insulin dose to be administered. 0932 (Given - Provider: Josy Franklin RN)1250 (Pt/Fam Self Administered - Provider: Josy Franklin RN - Comment: mom gave insulin shot) insulin lispro (HumaLOG Ryan) kwikpen (Meals/Bedtime-Pen Calculator) 0-30 Units 0-30 Units (0-2.35 Units/kg/DAY), Subcutaneous, Before meals/at bedtime/0200, First dose (after last modification) on Thu04/21/23 at 1730, Until Discontinued, Calculated doses can be validated in this manner: (Current blood glucose - blood glucose target)/correction factor = Glucose Correction Dose. Carb intake/carb ratio = carbohydrate-based dose. Glucose correction dose + carbohydrate-based dose = Total Insulin dose to be administered. 1815 (Given - Provider: Josy Franklin RN)213 (Given - Provider: Luz Marina Baltazar RN) 0215 (Given - Provider: Luz Marina Baltazar RN)0922 (Given - Provider: Josy Franklin RN) insulin Lispro (HumaLOG) injection (COMPLETED) Subcutaneous, ONCE, 1 dose, On Thu04/20/23 at 2000, Give 1 unit of humalog for every 50 above 150 = 3 units now please 2008 (Given - Provider: Claudia Haynes, JES) NaCl 0.9% IV (COMPLETED) 640 mL (10 ml/kg/DOSE), Intravenous, ONCE, 1 dose, On Thu04/20/23 at 1800, Administer over 61 Minutes 1759 (New Bag - Provider: Claudia Haynes RN)1910 (Stopped - Provider: Clay Infante RN) NaCl 0.9% PosiFlush 2 mL 2 mL EVERY 8 HOURS (0.094 mL/kg/DAY), Intravenous, at 0-999 mL/hr, First dose on Thu04/20/23 at 2130, For 90 days 2216 (Not Given - Provider: Magi Quiñones RN - Reason: Running IV fluids) 0034 (Not Given - Provider: Magi M Hilty, RN - Reason: Running IV fluids)1126 (Not Given - Provider: Josy Franklin RN - Reason: Other)1700 (Not Given - Provider: Josy Franklin RN - Reason: Other) 0100 (Not Given - Provider: Lucy Sarmiento RN - Reason: See Comments - Comment: see prn admin)0926 (Not Given - Provider: Josy Franklin RN - Reason: Other) NONFORMULARY 1 Patch 1 Patch WEEKLY, Transdermal, First dose on Thu04/20/23 at 2330, Brand Name: Zafemy, Generic name: Norelgestromin-ethin.es tradiol, Specific therapeutic reason for requesting non-formulary or high cost medication: To prevent interruption of course of therapy initiated prior to admission (Home medication), Attending Provider: DARIAN ATKINSON 6085 (Not Given - Provider: Lucy Sarmiento RN - Reason: See Comments - Comment: Already on at admission) vitamin D3 tablet 1,000 Units 1,000 Units (15.7 Units/kg/DAY), Oral, DAILY, 90 doses, First dose on Thu04/21/23 at 0900, Last dose on Thu07/19/23 at 0900, 25 mcg = 1000 units 0933 (Given - Provider: Josy Franklin RN) 0916 (Given - Provider: Josy Franklin RN) Continuous Medication Order 04/20/2023 04/21/2023 04/22/2023 dextrose 5 % and 0.45 % NaCl with KCl 20 mEq/L IV (CANCELED) CONTINUOUS, Intravenous, at 100 mL/hr, Starting on Thu04/20/23 at 2330, For 90 days 2323 (New Bag - Provider: Magi Quiñones RN)2324 (Dose/Rate Verification - Provider: Magi Quiñones, JES)2352 (Paused - Provider: Magi Quiñones, JES)2354 (Restarted - Provider: Magi Quiñones RN) 0000 (Dose/Rate Verification - Provider: Magi Quiñones RN)0100 (Dose/Rate Verification - Provider: Magi Quiñones, RN)0200 (Dose/Rate Verification - Provider: Magi Quiñones RN)0300 (Dose/Rate Verification - Provider: Magi Quiñones RN)0400 (Dose/Rate Verification - Provider: Magi Quiñones RN)0500 (Dose/Rate Verification - Provider: Magi Quiñones RN)0600 (Dose/Rate Verification - Provider: Magi Quiñones RN)0639 (Stopped - Provider: Lucy Sarmiento RN)0645 (Stopped - Provider: Magi Quiñones, RN) NaCl 0.9% 1,000 mL with potassium chloride 20 mEq IV (CANCELED) at 100 mL/hr, Intravenous, CONTINUOUS, Starting on Thu04/20/23 at 2000, Until Thu04/20/23 at 2252 2007 (New Bag - Provider: Claudia Haynes, JES)2324 (Stopped - Provider: Magi Quiñones RN) PRN Medication Order 04/20/2023 04/21/2023 04/22/2023 acetaminophen (TYLENOL) tablet 500 mg 500 mg (7.84 mg/kg/DOSE), Oral, EVERY 6 HOURS PRN, Starting on Thu04/21/23 at 1205, Until Thu04/22/23 at 1434, Mild Pain = Pain Score 1-3, Moderate Pain = Pain Score 4-6 1250 (Given - Provider: Josy Franklin, JES) Dextrose 50 % solution 25 g 25 g (0.392 g/kg/DOSE), Intravenous, PRN, Starting on Thu04/20/23 at 2054, Until Thu04/22/23 at 1434, Administer over 3-5 Minutes, Other, for hypoglycemia (blood sugar less than 70) and patient not alert insulin lispro (HumaLOG Ryan) Kwikpen (Additional Snacks-Pen Calculator) 0-20 Units (CANCELED) 0-20 Units (0-0.313 units/kg/DOSE), Subcutaneous, PRN, Starting on Thu04/20/23 at 2215, Until Thu04/21/23 at 1616, High Blood Sugar, To validate dose: Carb intake/ Carb Ratio = Total insulin dose for carbohydrate based dose 1545 (Given - Provider: Josy Franklin, JES) insulin lispro (HumaLOG Ryan) Kwikpen (Additional Snacks-Pen Calculator) 0-20 Units 0-20 Units (0-0.313 units/kg/DOSE), Subcutaneous, PRN, Starting on Thu04/21/23 at 1615, Until Thu04/22/23 at 1434, High Blood Sugar, To validate dose: Carb intake/ Carb Ratio = Total insulin dose for carbohydrate based dose NaCl 0.9 % 10 mL 10 mL PRN (0.157 ml/kg/DOSE), Intravenous, at 0-999 mL/hr, Line Care, For mixture of medications, Starting on Thu04/20/23 at 2054, For 90 days, For mixture of medications NaCl 0.9 % IV Flush bag 30 mL 30 mL PRN (0.47 ml/kg/DOSE), Intravenous, at 0-999 mL/hr, Flush IV line after medication IVPB bag if given., Starting on Thu04/20/23 at 205, For 90 days, Flush IV line after medication IVPB bag if given. NaCl 0.9% PosiFlush 10 mL 10 mL PRN (0.157 ml/kg/DOSE), Intravenous, at 0-999 mL/hr, Line Care, Starting on Thu04/20/23 at 1740, For 90 days NaCl 0.9% PosiFlush 2 mL 2 mL PRN (0.0313 ml/kg/DOSE), Intravenous, at 0-999 mL/hr, Line Care, Starting on Thu04/20/23 at 1740, For 90 days NaCl 0.9% PosiFlush 2 mL 2 mL PRN (0.0313 ml/kg/DOSE), Intravenous, at 0-999 mL/hr, Line Care, Starting on Thu04/20/23 at 2054, For 90 days 0350 (Push - Provide r: Luz Marina Baltazar RN) NaCl 0.9% PosiFlush 5 mL 5 mL PRN (0.0784 ml/kg/DOSE), Intravenous, at 0-999 mL/hr, Line Care, Starting on Thu04/20/23 at 2054, For 90 days, Central Line. sterile water injection 10 mL 10 mL (0.157 ml/kg/DOSE), Intravenous, PRN, Starting on Thu04/20/23 at 2054, Until Thu04/22/23 at 1434, For mixture of medications, For mixture of medications Scheduled Medication Order 05/30/2023 05/31/2023 06/01/2023 NaCl 0.9% 677 mL in 677 mL IV Bolus (COMPLETED) at 665.9 mL/hr, Intravenous, ONCE, 1 dose, On Thu06/01/23 at 1645 1650 (New Bag - Prov ider: Marisa Canela RN)1741 (Stopped - Provider: Marisa Canela RN) ondansetron (ZOFRAN-ODT) disintegrating tablet 4 mg (COMPLETED) 4 mg (0.0591 mg/kg/DOSE), Oral, ONCE, 1 dose, On Thu06/01/23 at 1630 1623 (Given - Provid er: Marisa Canela RN) Scheduled Medication Order 08/07/2023 08/08/2023 08/09/2023 ondansetron (Zofran) injection 4 mg (COMPLETED) 4 mg, IntraVENous, Once, On 08/09/23 at 1600, For 1 dose 1600 (Not Given - Pr ovider: Breanne Almazan RN - Reason: Patient/family refused)1701 (Given - Provider: Breanne Almazan RN) potassium chloride (Klor-Con) packet 20 mEq (COMPLETED) 20 mEq, Oral, Once, On 08/09/23 at 1715, For 1 dose, Dissolve each packet in 4 ounces of water = 5 mEq per 1 oz fluid., Indications: Hypokalemia 1848 (Given - Provid er: Breanne Almazan RN) vitamin tablet 1 tablet, Oral, Daily, First dose on 08/09/23 at 1530 1530 (Not Given - Pr ovider: Breanne Almazan RN - Reason: Other - Comment: pt took at home) sodium chloride 0.9 % bolus 1,000 mL 1,000 mL, IntraVENous, at 1,000 mL/hr, Administer over 1 Hours, Every 1 hour, First dose on 08/09/23 at 1600, For 3 doses 1603 (New Bag - Prov ider: Breanne Almazan RN)1659 (Stopped - Provider: Breanne Almazan RN)1700 (New Bag - Provider: Breanne Almazan RN)1759 (Stopped - Provider: Breanne Almazan RN)1800 (Due) sodium chloride 0.9% (NS) flush 10 mL 10 mL, IntraVENous, Every 12 hours scheduled (2 times per day), First dose on 08/09/23 at 2100 2100 (Canceled Entry - Provider: Automatic Discharge Provider - Comment: Automatically canceled at discontinue of medication order) PRN Medication Order 08/07/2023 08/08/2023 08/09/2023 acetaminophen (Tylenol) tablet 650 mg 650 mg, Oral, Every 4 hours PRN, mild pain (1-3), Fever GREATER than 100.5 F (38 C), Starting on 08/09/23 at 1515, Maximum dose of acetaminophen is 4000 mg from all sources in 24 hours. ondansetron (Zofran) injection 4 mg(Linked Group 1) 4 mg, IntraVENous, Every 6 hours PRN, nausea, vomiting, Starting on 08/09/23 at 1515, 1st Line. Give IV if patient is unable to take orally. If inadequate response within 60 minutes, proceed to next-line agent or contact provider if no further options ordered. ondansetron ODT (Zofran-ODT) disintegrating tablet 4 mg(Linked Group 1) 4 mg, Oral, Every 8 hours PRN, nausea, vomiting, Starting on 08/09/23 at 1515, 1st Line. If inadequate response within 60 minutes, proceed to next-line agent or contact provider if no further options ordered. Patient should allow tablet to dissolve on tongue. Do not remove from blister pack until just before administering. sodium chloride 0.9 % infusion 5-250 mL/hr, IntraVENous, PRN, if patient receiving piggyback infusions and maintenance fluids are not ordered OR KVO fluids to protect IV site / prevent frequent line interruptions/ long duration, Starting on 08/09/23 at 1515, For piggyback infusion, administer at same rate as piggyback for a total of 25 mL. Enter 25 mL into dose field and piggyback rate into rate field of order. If piggyback is infusing at a rate less than 100 mL/hr, enter 25 mL into dose field and 100 mL/hr into rate field of order. For KVO fluids, enter rate of 20 mL/hr or less into rate field of order. sodium chloride 0.9% (NS) flush 10 mL 10 mL, IntraVENous, PRN, line care, Starting on 08/09/23 at 1515, After every IV line use Linked Groups Order Group 1: ondansetron ODT (Zofran-ODT) disintegrating tablet 4 mgJump to med 4 mg, Oral, Every 8 hours PRN, nausea, vomiting, Starting on 08/09/23 at 1515, 1st Line. If inadequate response within 60 minutes, proceed to next-line agent or contact provider if no further options ordered. Patient should allow tablet to dissolve on tongue. Do not remove from blister pack until just before administering. Or ondansetron (Zofran) injection 4 mgJump to med 4 mg, IntraVENous, Every 6 hours PRN, nausea, vomiting, Starting on 08/09/23 at 1515, 1st Line. Give IV if patient is unable to take orally. If inadequate response within 60 minutes, proceed to next-line agent or contact provider if no further options ordered. PRN Medication Order 09/04/2023 09/05/2023 09/06/2023 iopamidol (Isovue-370) 76 % injection 75 mL (COMPLETED) 75 mL, IntraVENous, IMG once PRN, contrast, Starting on 09/06/23 at 1846, For 1 dose 1847 (Given - Provid er: Genie Godwin, RT (R)(CT)) Scheduled Medication Order 09/20/2023 09/21/2023 09/22/2023 cephALEXin (KEFLEX) capsule 500 mg 500 mg, Oral, Every 12 hours scheduled, First dose on Thu09/21/23 at 2100, For 5 days, Indication: UTI 2207 (Given - Provider: Mariela Peng RN) 0853 (Given - Provider: Tessa Cruz, JES) ondansetron (ZOFRAN) injection 4 mg (COMPLETED) 4 mg, Intravenous, Once, On Thu09/21/23 at 1310, For 1 dose 1340 (Given - Provider: Anders Francisco RN) sodium chloride (PF) (NS) flush 5 mL(Linked Group 1) 5 mL, Intravenous, Every 8 hours scheduled, First dose on 09/21/23 at 2200, Saline lock 2200 (Canceled Entry - Provider: Mariela Peng RN) 0600 (Not Given - Provider: Tessaradha Curz RN - Reason: Other - Comment: fluids running)1400 (Canceled Entry - Provider: Tessa Cruz RN) sodium chloride 0.9% (NS) bolus 1,000 mL (COMPLETED) 1,000 mL, Intravenous, at 983.6 mL/hr, Once, On Thu09/21/23 at 1125, For 1 dose 1200 (New Bag - Provider: Anders Francisco RN)1315 (Stopped - Provider: Anders Francisco RN) 1753 (Stopped - Provider: Marzena Galindo RN) sodium chloride 0.9% (NS) bolus 1,000 mL 1,000 mL, Intravenous, at 983.6 mL/hr, Once, On Thu09/21/23 at 1400, For 1 dose 1400 (Not Given - Provider: Anders Francisco RN - Reason: Other) 1658 (Stopped - Provider: Tessa Cruz RN) sodium chloride 0.9% (NS) bolus 1,000 mL (COMPLETED) 1,000 mL, Intravenous, at 983.6 mL/hr, Once, On Thu09/21/23 at 1615, For 1 dose 1719 (New Bag - Provider: Tessa Lance RN)1820 (Stopped - Provider: Britni Daugherty RN) 1753 (Stopped - Provider: Marzena Galindo RN) Continuous Medication Order 09/20/2023 09/21/2023 09/22/2023 sodium chloride 0.9% (NS) 125 mL/hr, Intravenous, Continuous, Starting on Thu09/21/23 at 1945 1936 (New Bag - Provider: Britni Daugherty RN) 0049 (Rate/Dose Verify - Provider: Mariela Peng RN)0323 (Rate/Dose Verify - Provider: Mariela Peng, RN)0342 (New Bag - Provider: Mariela Peng, JES)0623 (Rate/Dose Verify - Provider: Mariela Peng, RN)0629 (Paused - Provider: Tessa Cruz RN)0635 (Restarted - Provider: Tessa Cruz RN)0853 (Rate/Dose Verify - Provider: Tessa Cruz RN)1300 (Stopped - Provider: Tessa Cruz RN)1754 (Stopped - Provider: Marzena Galindo RN) subcutaneous insulin pump Mis Miscellaneous, Continuous, Starting on Thu09/21/23 at 1640, Patient run insulin-pump , Select Insulin Product in Pump: lispro (HUMALOG), Specify Number of Different Basal Rates per 24hr: 1, Starting Time: 4:36 PM, Basal Rate (units / hr): 1, Prandial Bolus Method: Carbohydrate Ratio (1 unit of insulin per specified grams of carbs), Breakfast (1 unit of insulin per specified number of carbs): 100, Lunch (1 unit of insulin per specified number of carbs): 100, Dinner (1 unit of insulin per specified number of carbs): 100, For meals when blood glucose (BG) is greater than: 250, Add: 1 unit of insulin per 50 mg / dL 1640 (New Bag - Provider: Britni Daugherty RN) 175 (Stopped - Provider: Marzena Galindo RN) PRN Medication Order 09/20/2023 09/21/2023 09/22/2023 ondansetron (ZOFRAN) injection 4 mg 4 mg, Intravenous, Every 6 hours PRN, nausea, vomiting, Starting on Thu09/21/23 at 1848 sodium chloride (PF) (NS) flush 5 mL(Linked Group 2) 5 mL, Intravenous, As needed, line care, Starting on Thu09/21/23 at 1123 sodium chloride (PF) (NS) flush 5 mL(Linked Group 1) 5 mL, Intravenous, As needed, line care, Starting on Thu09/21/23 at 1848 sodium chloride 0.9% (NS)(Linked Group 2) 0-150 mL/hr, Intravenous, As needed, To flush line after IV infusions when no maintenance IV ordered or a compatibility issue. Infuse 20ml at the same rate as the secondary infusion, Starting on Thu09/21/23 at 1123, Run as Primary IV. NOT intended for KVO. 1752 (Stopped - Prov ider: Marzena Galindo RN) sodium chloride 0.9% (NS)(Linked Group 1) 0-150 mL/hr, Intravenous, As needed, To flush line after IV infusions when no maintenance IV ordered or a compatibility issue. Infuse 20ml at the same rate as the secondary infusion, Starting on Thu09/21/23 at 1848, Run as Primary IV. NOT intended for KVO. 1753 (Stopped - Prov ider: Marzena Galindo RN) Linked Groups Order Group 1: Saline lock IV (CANCELED) Routine, Continuous, Starting on Thu09/21/23 at 1849, Until Specified And sodium chloride (PF) (NS) flush 5 mLJump to med 5 mL, Intravenous, As needed, line care, Starting on Thu09/21/23 at 1848 And sodium chloride (PF) (NS) flush 5 mLJump to med 5 mL, Intravenous, Every 8 hours scheduled, First dose on Thu09/21/23 at 2200, Saline lock And sodium chloride 0.9% (NS)Jump to med 0-150 mL/hr, Intravenous, As needed, To flush line after IV infusions when no maintenance IV ordered or a compatibility issue. Infuse 20ml at the same rate as the secondary infusion, Starting on Thu09/21/23 at 1848, Run as Primary IV. NOT intended for KVO. Group 2: Insert peripheral IV (COMPLETED) MIKHAIL, Once, On Thu09/21/23 at 1124, For 1 occurrence And Saline lock IV (CANCELED) MIKHAIL, Once, On Thu09/21/23 at 1124, For 1 occurrence And sodium chloride (PF) (NS) flush 5 mLJump to med 5 mL, Intravenous, As needed, line care, Starting on Thu09/21/23 at 1123 And sodium chloride 0.9% (NS)Jump to med 0-150 mL/hr, Intravenous, As needed, To flush line after IV infusions when no maintenance IV ordered or a compatibility issue. Infuse 20ml at the same rate as the secondary infusion, Starting on Thu09/21/23 at 1123, Run as Primary IV. NOT intended for KVO. Scheduled Medication Order 10/28/2023 10/29/2023 10/30/2023 Insulin Lispro (Humalog) injection 6 Units 6 Units, SubCUTAneous, 3 times daily with meals, First dose on Thu10/30/23 at 1430 1439 (Given - Provid er: Nely Logan RN)1843 (Given - Provider: Billie Meléndez RN - Comment: with meals, pump not filled at this time) insulin NPH (Isophane) (HumuLIN N,NovoLIN N) injection 10 Units 10 Units, SubCUTAneous, Nightly, First dose on Thu10/30/23 at 2100 2100 (Canceled Entry - Provider: Automatic Discharge Provider - Comment: Automatically canceled at discontinue of medication order) insulin NPH (Isophane) (HumuLIN N,NovoLIN N) injection 28 Units 28 Units, SubCUTAneous, Every morning, First dose on Thu10/31/23 at 0900 vitamin tablet 1 tablet, Oral, Daily, First dose on Thu10/30/23 at 1315 1440 (Given - Provid er: Nely Logan RN) sodium chloride 0.9% (NS) flush 10 mL 10 mL, IntraVENous, Every 12 hours scheduled (2 times per day), First dose on Thu10/30/23 at 2100 2100 (Canceled Entry - Provider: Automatic Discharge Provider - Comment: Automatically canceled at discontinue of medication order) PRN Medication Order 10/28/2023 10/29/2023 10/30/2023 acetaminophen (Tylenol) tablet 650 mg 650 mg, Oral, Every 4 hours PRN, mild pain (1-3), Fever GREATER than 100.5 F (38 C), Starting on Thu10/30/23 at 1304, Maximum dose of acetaminophen is 4000 mg from all sources in 24 hours. dextrose 5 % infusion 100 mL/hr, IntraVENous, PRN, Blood sugar less than 70mg/dL, Starting on Thu10/30/23 at 1429, Start infusion following administration of dextrose 50% or glucagon. dextrose 50 % solution 12.5 g 12.5 g, IntraVENous, PRN, low blood sugar, Blood glucose less than 70 mg/dL and patient NOT ALERT or NPO., Starting on Thu10/30/23 at 1429, If patient does not respond within 5 minutes, repeat dose x1. Start D5W at 100 mL/hour until ordering provider can be reached. Repeat blood glucose in 15 minutes. If blood glucose is less than 70 mg/dL, repeat treatment and recheck blood glucose in 15 minutes x2. If using Glucostabilizer, dose as instructed per system. glucagon (human recombinant) injection 1 mg 1 mg, IntraMUSCular, PRN, low blood sugar, Blood glucose less than 70 mg/dL and patient NOT ALERT or NPO and does not have IV access., Starting on Thu10/30/23 at 1429, After administration, attempt intravenous access and start D5W at 100 mL/hr. Repeat blood glucose in 15 minutes x2 and notify provider. glucose oral gel 15 g 15 g, Oral, As needed, low blood sugar, Starting on Thu10/30/23 at 1429, If blood glucose less than 50 mg/dL and patient ALERT and NOT NPO, give 2 tubes glucose gel. If blood glucose less than 70 mg/dL and patient ALERT and NOT NPO, give 1 tube glucose gel. Repeat blood glucose in 15 minutes. If blood glucose is less than 70 mg/dL, repeat treatment and recheck blood glucose in 15 minutes x2 and notify provider. ondansetron (Zofran) injection 4 mg(Linked Group 1) 4 mg, IntraVENous, Every 6 hours PRN, nausea, vomiting, Starting on Thu10/30/23 at 1304, 1st Line. Give IV if patient is unable to take orally. If inadequate response within 60 minutes, proceed to next-line agent or contact provider if no further options ordered. ondansetron ODT (Zofran-ODT) disintegrating tablet 4 mg(Linked Group 1) 4 mg, Oral, Every 8 hours PRN, nausea, vomiting, Starting on Thu10/30/23 at 1304, 1st Line. If inadequate response within 60 minutes, proceed to next-line agent or contact provider if no further options ordered. Patient should allow tablet to dissolve on tongue. Do not remove from blister pack until just before administering. sodium chloride 0.9 % infusion 5-250 mL/hr, IntraVENous, PRN, if patient receiving piggyback infusions and maintenance fluids are not ordered OR KVO fluids to protect IV site / prevent frequent line interruptions/ long duration, Starting on Thu10/30/23 at 1304, For piggyback infusion, administer at same rate as piggyback for a total of 25 mL. Enter 25 mL into dose field and piggyback rate into rate field of order. If piggyback is infusing at a rate less than 100 mL/hr, enter 25 mL into dose field and 100 mL/hr into rate field of order. For KVO fluids, enter rate of 20 mL/hr or less into rate field of order. sodium chloride 0.9% (NS) flush 10 mL 10 mL, IntraVENous, PRN, line care, Starting on Thu10/30/23 at 1304, After every IV line use Linked Groups Order Group 1: ondansetron ODT (Zofran-ODT) disintegrating tablet 4 mgJump to med 4 mg, Oral, Every 8 hours PRN, nausea, vomiting, Starting on Thu10/30/23 at 1304, 1st Line. If inadequate response within 60 minutes, proceed to next-line agent or contact provider if no further options ordered. Patient should allow tablet to dissolve on tongue. Do not remove from blister pack until just before administering. Or ondansetron (Zofran) injection 4 mgJump to med 4 mg, IntraVENous, Every 6 hours PRN, nausea, vomiting, Starting on Thu10/30/23 at 1304, 1st Line. Give IV if patient is unable to take orally. If inadequate response within 60 minutes, proceed to next-line agent or contact provider if no further options ordered. Scheduled Medication Order 12/31/2023 01/01/2024 01/02/2024 potassium chloride CR (Klor-Con M10) ER tablet 10 mEq 10 mEq, Oral, Daily, First dose on 01/02/24 at 0900, Best given with food and plenty of water to minimize gastric irritation. Do not crush or chew. 0850 (Given - Provid er: Keiry Russo RN) Scheduled Medication Order 01/07/2024 01/08/2024 01/09/2024 Insulin Lispro (Humalog) injection 200 Units 200 Units, SubCUTAneous, Once, On 01/09/24 at 2230, For 1 dose, TO BE USED TO FILL INSULIN PUMP NOT GIVEN SUBCUTANEOUSLY 2230 (Not Given - Provider: Charo Harrison RN - Reason: Other - Comment: ordered by mistake, pt CGM not refillable) iron sucrose (Venofer) 200 mg in sodium chloride 0.9 % 100 mL IVPB 200 mg, IntraVENous, at 100 mL/hr, Administer over 60 Minutes, Every 24 hours, First dose on Thu01/08/24 at 0715, For 3 doses, Observe for signs and symptoms of hypersensitivity and/or anaphylactic-type reactions per institutional standard during and following administration. 0816 (New Bag - Provider: Jenae Cedeno RN)0916 (Stopped - Provider: Jenae Cedeno RN) 0945 (New Bag - Provider: Angel Marrero RN)1045 (Stopped - Provider: Angel Marrero RN) vitamin tablet 1 tablet, Oral, Daily, First dose on Tatyana 01/07/24 at 2030 2030 (Not Given - Provider: Sherie Blanco RN - Reason: Other - Comment: pt had today) 0819 (Given - Provider: Jenae Cedeno RN) 0900 (Given - Provider: Angel Marrero RN) sodium chloride 0.9% (NS) flush 10 mL 10 mL, IntraVENous, Every 12 hours scheduled (2 times per day), First dose on Tatyana 01/07/24 at 2100 2241 (Not Given - Provider: Sherie Blanco RN - Reason: Other - Comment: IV flushed when placed) 0954 (Given - Provider: Jenae Cedeno RN)211 (Given - Provider: Urmila Almonte RN) 0945 (Given - Provider: Angel Marrero RN)2005 (Given - Provider: Charo Harrison RN) Continuous Medication Order 01/07/2024 01/08/2024 01/09/2024 Insulin Pump - (Patient Supplied) SubCUTAneous, Continuous, Starting on 01/09/24 at 2145, Basal Rate(s): Max basal rate 2.5 units per hour 0000 0.65 0600 0.55 1000 0.6 2000 0.65 Bolus units per carbohydrate intake (insulin:CHO ratio): 0000 8.0 0600 6.0 1000 1.5 1700 1.5 Correction (insulin sensitivity) factor (mg/dL per unit of insulin): 0000 35 0600 25 2000 25 Active Insulin Time: 2 hours Estimated total daily insulin dose (units): 130-150 units, Pump Type (Brand/Model): Omnipod, What type of insulin is the patient using in their insulin pump? Insulin lispro 2144 (Not Given - Pr ovider: Charo Harrison RN - Reason: Other - Comment: pt CGM in place) PRN Medication Order 01/07/2024 01/08/2024 01/09/2024 acetaminophen (Tylenol) tablet 650 mg 650 mg, Oral, Every 4 hours PRN, mild pain (1-3), Fever GREATER than 100.5 F (38 C), Starting on Tatyana 01/07/24 at 2014, Maximum dose of acetaminophen is 4000 mg from all sources in 24 hours. dextrose 5 % infusion 100 mL/hr, IntraVENous, PRN, Blood sugar less than 70mg/dL, Starting on 01/09/24 at 2225, Start infusion following administration of dextrose 50% or glucagon. dextrose 50 % solution 12.5 g 12.5 g, IntraVENous, PRN, low blood sugar, Blood glucose less than 70 mg/dL and patient NOT ALERT or NPO., Starting on 01/09/24 at 2225, If patient does not respond within 5 minutes, repeat dose x1. Start D5W at 100 mL/hour until ordering provider can be reached. Repeat blood glucose in 15 minutes. If blood glucose is less than 70 mg/dL, repeat treatment and recheck blood glucose in 15 minutes x2. If using Glucostabilizer, dose as instructed per system. glucagon (human recombinant) injection 1 mg 1 mg, IntraMUSCular, PRN, low blood sugar, Blood glucose less than 70 mg/dL and patient NOT ALERT or NPO and does not have IV access., Starting on 01/09/24 at 2225, After administration, attempt intravenous access and start D5W at 100 mL/hr. Repeat blood glucose in 15 minutes x2 and notify provider. glucose oral gel 15 g 15 g, Oral, As needed, low blood sugar, Starting on 01/09/24 at 2225, If blood glucose less than 50 mg/dL and patient ALERT and NOT NPO, give 2 tubes glucose gel. If blood glucose less than 70 mg/dL and patient ALERT and NOT NPO, give 1 tube glucose gel. Repeat blood glucose in 15 minutes. If blood glucose is less than 70 mg/dL, repeat treatment and recheck blood glucose in 15 minutes x2 and notify provider. ondansetron (Zofran) injection 4 mg(Linked Group 1) 4 mg, IntraVENous, Every 6 hours PRN, nausea, vomiting, Starting on Tatyana 01/07/24 at 2014, 1st Line. Give IV if patient is unable to take orally. If inadequate response within 60 minutes, proceed to next-line agent or contact provider if no further options ordered. 1252 (Given - Provider: Asad Cedeno RN) ondansetron ODT (Zofran-ODT) disintegrating tablet 4 mg(Linked Group 1) 4 mg, Oral, Every 8 hours PRN, nausea, vomiting, Starting on Tatyana 01/07/24 at 2014, 1st Line. If inadequate response within 60 minutes, proceed to next-line agent or contact provider if no further options ordered. Patient should allow tablet to dissolve on tongue. Do not remove from blister pack until just before administering. 1252 (See Alternative - Provider: Jenae Cedeno, RN) sodium chloride 0.9 % infusion 5-250 mL/hr, IntraVENous, PRN, if patient receiving piggyback infusions and maintenance fluids are not ordered OR KVO fluids to protect IV site / prevent frequent line interruptions/ long duration, Starting on Tatyana 01/07/24 at 2014, For piggyback infusion, administer at same rate as piggyback for a total of 25 mL. Enter 25 mL into dose field and piggyback rate into rate field of order. If piggyback is infusing at a rate less than 100 mL/hr, enter 25 mL into dose field and 100 mL/hr into rate field of order. For KVO fluids, enter rate of 20 mL/hr or less into rate field of order. sodium chloride 0.9% (NS) flush 10 mL 10 mL, IntraVENous, PRN, line care, Starting on Tatyana 01/07/24 at 2014, After every IV line use Linked Groups Order Group 1: ondansetron ODT (Zofran-ODT) disintegrating tablet 4 mgJump to med 4 mg, Oral, Every 8 hours PRN, nausea, vomiting, Starting on Tatyana 01/07/24 at 2014, 1st Line. If inadequate response within 60 minutes, proceed to next-line agent or contact provider if no further options ordered. Patient should allow tablet to dissolve on tongue. Do not remove from blister pack until just before administering. Or ondansetron (Zofran) injection 4 mgJump to med 4 mg, IntraVENous, Every 6 hours PRN, nausea, vomiting, Starting on Tatyana 01/07/24 at 2014, 1st Line. Give IV if patient is unable to take orally. If inadequate response within 60 minutes, proceed to next-line agent or contact provider if no further options ordered. Scheduled Medication Order 02/08/2024 02/09/2024 02/10/2024 Acetaminophen-Caffeine (Excedrin Tension Headache) 500-65 MG per tablet 2 tablet (COMPLETED) 2 tablet, Oral, Once, On Thu02/10/24 at 1230, For 1 dose 1239 (Given - Provid er: Kelly Castellanos RN) Scheduled Medication Order 02/23/2024 02/24/2024 02/25/2024 amoxicillin (Amoxil) capsule 500 mg (COMPLETED) 500 mg, Oral, Every 8 hours scheduled (3 times per day), First dose on Thu02/22/24 at 0600, For 2 days, Suspected Indication (Select all that apply): Other, Other Abx Indication: Peridontal infection 0542 (Given - Provider: Akilah guzman Oca, RN)141 (Given - Provider: Marisol Fernandez RN)2017 (Given - Provider: Russell Leal RN) enoxaparin (Lovenox) syringe 40 mg 40 mg, SubCUTAneous, Every 24 hours scheduled (Daily), First dose on Thu02/22/24 at 0900, Contact prescriber to increase to 40 mg twice daily after 20 weeks gestation., Indication of Use: Prophylaxis-DVT/PE, Indications: Prophylaxis of Venous Thromboembolism 0900 (Dose Auto Held - Provider: Nina Renee DO)0912 (Unheld by provider - Provider: Nina Renee DO) 1114 (Given - Provider: Anita Doty RN) 0907 (Given - Provider: Ashlyn Garrett RN) ferrous sulfate tablet 325 mg 325 mg, Oral, 2 times daily with meals, First dose on Thu02/22/24 at 0800, , Start if Hgb less than 10. Hold oral ferrous sulfate dose if receiving IV iron sucrose (Venofer) 0800 (Not Given - Provider: Marisol Fernandez RN - Reason: Contraindicated - Comment: Patient will recieve IV iron sucrose.)1700 (Not Given - Provider: Marisol Fernandez RN - Reason: Order parameters not met - Comment: Recieved IV iron sucrose (Venofer this AM)) 1117 (Given - Provider: Anita Doty RN)1700 (Not Given - Provider: Ashlyn Garrett RN - Reason: Order parameters not met) 0907 (Given - Provider: Ashlyn Garrett RN) ibuprofen tablet 600 mg 600 mg, Oral, Every 6 hours, First dose on Thu02/23/24 at 0415, , Once tolerating PO, discontinue Toradol and begin ibuprofen 8 hours after the final dose of Toradol. Alternate ibuprofen and acetaminophen every 3 hours. 0415 (Not Given - Provider: Akilah guzman Oca, RN - Reason: Other - Comment: not due until 8 am)0849 (Given - Provider: Marisol Fernandez RN)1704 (Given - Provider: Marisol Fernandez RN)2257 (Given - Provider: Russell Leal RN) 0502 (Given - Provider: Russell Leal RN)1430 (Given - Provider: Ashlyn Garrett RN)1615 (Canceled Entry - Provider: Automatic Discharge Provider - Comment: Automatically canceled at discontinue of medication order)2254 (Given - Provider: Russell Leal RN) 0422 (Given - Provider: Russell Leal RN)1015 (Canceled Entry - Provider: Automatic Discharge Provider - Comment: Automatically canceled at discontinue of medication order) iron sucrose (Venofer) 200 mg in sodium chloride 0.9 % 100 mL IVPB 200 mg, IntraVENous, at 300 mL/hr, Administer over 20 Minutes, Every 24 hours, First dose on Thu02/23/24 at 0800, For 3 doses, Observe for signs and symptoms of hypersensitivity and/or anaphylactic-type reactions per institutional standard during and following administration. 0850 (New Bag - Provider: Marisol Fernandez RN)0910 (Stopped - Provider: Marisol Fernandez RN) 1042 (New Bag - Provider: Anita Doty RN)1102 (Stopped - Provider: Anita Doty RN) 0800 (Canceled Entry - Provider: Automatic Discharge Provider - Comment: Automatically canceled at discontinue of medication order) ketorolac (Toradol) injection 30 mg (COMPLETED) 30 mg, IntraVENous, Every 6 hours, First dose on Thu02/22/24 at 0415, For 4 doses, , This may be discontinued prior to 4 doses if patient pain is well controlled and able to take PO ibuprofen. 0023 (Given - Provider: Akilah guzman Oca, RN) Lidocaine 4 % patch 1 patch (COMPLETED) 1 patch, TransDERmal, Administer over 12 Hours, Once, On Thu02/24/24 at 2130, For 1 dose, Apply patch to affected area. Patch may remain in place for up to 12 hours in any 24 hour period. 2141 (Medication Applied - Provider: Russell Leal RN - Comment: Right and left abdomen) 42 (Due: Medication Removed - Provider: Russell Leal RN) measles, mumps and rubella (MMR) vaccine 0.5 mL 0.5 mL, SubCUTAneous, Prior to discharge, Starting on Thu02/22/24 at 0403, For 1 dose, , Administer if Rubella non-immune or equivocal Vaccine is a vial of powder. Reconstitute with the available diluent for this vaccine. Barcode scan vaccine vial for Vaccine Record NIFEdipine XL (Procardia XL) 24 hr tablet 30 mg (CANCELED) 30 mg, Oral, Nightly, First dose (after last modification) on Thu02/22/24 at 2100, Do not crush, chew, or split. 2016 (Given - Provider: Russell Leal RN) NIFEdipine XL (Procardia XL) 24 hr tablet 30 mg (COMPLETED) 30 mg, Oral, Once, On Thu02/24/24 at 1130, For 1 dose, Do not crush, chew, or split. 112 (Given - Provider: Anita Doty RN) NIFEdipine XL (Procardia XL) 24 hr tablet 60 mg 60 mg, Oral, Nightly, First dose (after last modification) on Thu02/24/24 at 2100, Do not crush, chew, or split. 1957 (Given - Provider: Russell Leal RN) vitamin tablet 1 tablet, Oral, Daily, First dose on Thu02/22/24 at 0900, , Begin when normal bowel activity resumes. 0900 (Not Given - Provider: Marisol Fernandez RN - Reason: Order parameters not met) 0900 (Not Given - Provider: Ashlyn Garrett RN - Reason: Order parameters not met) 0900 (Canceled Entry - Provider: Automatic Discharge Provider - Comment: Automatically canceled at discontinue of medication order) sodium chloride 0.9% (NS) flush 5-40 mL 5-40 mL, IntraVENous, Every 12 hours scheduled (2 times per day), First dose on Thu02/22/24 at 0900, , or Line Patency: Peripheral IV = 5 mL; Midline or Central Line = 10 mL/lumen. If following IV push medication, administer flush at same rate as the IV push. Flush volume is determined by type of infusion therapy being given. For non-viscous solutions use: Peripheral IV = 5 mL Midline or Central Line = 10 mL/lumen For viscous solutions (i.e. blood components, parenteral nutrition, contrast media, or after obtaining blood sample) use: Peripheral IV = 10 mL Midline or Central Line = 20 mL/lumen 0850 (Given - Provider: Marisol Fernandez RN)2100 (Given - Provider: Russell Leal RN) 0900 (Canceled Entry - Provider: Automatic Discharge Provider - Comment: Automatically canceled at discontinue of medication order)2100 (Given - Provider: Russell Leal RN) 0900 (Canceled Entry - Provider: Automatic Discharge Provider - Comment: Automatically canceled at discontinue of medication order) Tdap (BoostRIX) vaccine 0.5 mL 0.5 mL, IntraMUSCular, Prior to discharge, Starting on Thu02/22/24 at 0403, For 1 dose, , If not previously administered during at 27-36 weeks as recommended by CDC. Tdap. Not to be confused with look-alike/sound-alike product DTaP. Continuous Medication Order 02/23/2024 02/24/2024 02/25/2024 insulin lispro (HumaLOG) patient supplied pump SubCUTAneous, Continuous, Starting on Thu02/18/24 at 1700, Inpatient insulin pump instructions: Continue with pump settings per note PRN Medication Order 02/23/2024 02/24/2024 02/25/2024 acetaminophen (Tylenol) tablet 650 mg 650 mg, Oral, Every 6 hours PRN, other, Pain (1-10), Starting on Thu02/22/24 at 0403, , Give in addition to any other pain medication ordered at same time for any pain indication. Maximum dose of acetaminophen is 4000mg from all sources in 24 hours. Alternate ibuprofen and acetaminophen every 3 hours. 025 (Given - Provider: Akilah guzman Oca, RN)2016 (Given - Provider: Russell Leal RN) 227 (Given - Provider: Russell Leal RN)1037 (Given - Provider: Anita Doty RN)195 (Given - Provider: Russell Leal, JES) 010 (Given - Provider: Margareth Orellana RN) calcium gluconate 10 % injection 1 g 1 g, IntraVENous, PRN, For suspected magnesium toxicity or for respiratory rate less than 6 per minute., Starting on [place] 02/21/24 at 1834, Administer slow IV push over 5 minutes. dextrose 5 % infusion 100 mL/hr, IntraVENous, PRN, Blood sugar less than 70mg/dL, Starting on [place] 02/18/24 at 1652, Start infusion following administration of dextrose 50% or glucagon. dextrose 50 % solution 12.5 g 12.5 g, IntraVENous, PRN, low blood sugar, Blood glucose less than 70 mg/dL and patient NOT ALERT or NPO., Starting on [place] 02/18/24 at 1652, If patient does not respond within 5 minutes, repeat dose x1. Start D5W at 100 mL/hour until ordering provider can be reached. Repeat blood glucose in 15 minutes. If blood glucose is less than 70 mg/dL, repeat treatment and recheck blood glucose in 15 minutes x2. If using Glucostabilizer, dose as instructed per system. diphenhydrAMINE (BENADryl) injection 25 mg 25 mg, IntraVENous, Every 6 hours PRN, itching, hives, Starting on Thu02/22/24 at 0403, docusate sodium (Colace) capsule 100 mg 100 mg, Oral, 2 times daily PRN, constipation, Starting on Thu02/22/24 at 0403, , Do not crush or break. 0756 (Given - Provider: Marisol Fernandez RN)2017 (Given - Provider: Russell Leal, JES) 1957 (Given - Provider: Russell Leal, JES) famotidine (Pepcid) tablet 20 mg 20 mg, Oral, Daily PRN, indigestion, heartburn, Starting on Thu02/22/24 at 0403, , Renal dose per pharmacy for peptic ulcer prophylaxis. glucagon (human recombinant) injection 1 mg 1 mg, IntraMUSCular, PRN, low blood sugar, Blood glucose less than 70 mg/dL and patient NOT ALERT or NPO and does not have IV access., Starting on [place] 02/18/24 at 1652, After administration, attempt intravenous access and start D5W at 100 mL/hr. Repeat blood glucose in 15 minutes x2 and notify provider. glucose oral gel 15 g 15 g, Oral, As needed, low blood sugar, Starting on [place] 02/18/24 at 1652, If blood glucose less than 50 mg/dL and patient ALERT and NOT NPO, give 2 tubes glucose gel. If blood glucose less than 70 mg/dL and patient ALERT and NOT NPO, give 1 tube glucose gel. Repeat blood glucose in 15 minutes. If blood glucose is less than 70 mg/dL, repeat treatment and recheck blood glucose in 15 minutes x2 and notify provider. HYDROmorphone (Dilaudid) injection 0.25 mg(Linked Group 1) 0.25 mg, IntraVENous, Every 3 hours PRN, moderate pain (4-6), Starting on Thu02/22/24 at 0403, , If oral and IV narcotics ordered, use oral first and only use IV if oral is ineffective or cannot take oral. Do Not give oral and IV within 1 hour of each other unless specifically ordered. 0610 (See Alternative - Provider: Akilah guzman Oca, JES) HYDROmorphone (Dilaudid) injection 0.5 mg(Linked Group 1) 0.5 mg, IntraVENous, Every 3 hours PRN, severe pain (7-10), Starting on Thu02/22/24 at 0403, , If oral and IV narcotics ordered, use oral first and only use IV if oral is ineffective or cannot take oral. Do Not give oral and IV within 1 hour of each other unless specifically ordered. 0610 (Given - Provider: Akilah guzman Oca, JES) lanolin (Lansinoh) cream Topical, Every 1 hour PRN, dry skin, nipple discomfort, Starting on Thu02/22/24 at 0403, , Apply to affected area naloxone (Narcan) injection 0.4 mg 0.4 mg, IntraVENous, Every 5 min PRN, opioid reversal, respiratory depression, Starting on Thu02/22/24 at 0410, +++ For RR <10, pinpoint pupils, over sedation for opioid reversal - MUST notify educational psychologist provider immediately after first dose, may give IM or SQ if no IV access +++ ondansetron (Zofran) injection 4 mg(Linked Group 2) 4 mg, IntraVENous, Every 6 hours PRN, nausea, vomiting, Starting on Thu02/22/24 at 0403, , 1st Line. Give IV if patient is unable to take orally. If inadequate response within 60 minutes, proceed to next-line agent or contact provider if no further options ordered. 1121 (See Alternative - Provider: Marisol Fernandez RN) ondansetron ODT (Zofran-ODT) disintegrating tablet 4 mg(Linked Group 2) 4 mg, Oral, Every 8 hours PRN, nausea, vomiting, Starting on Thu02/22/24 at 0403, , 1st Line. If inadequate response within 60 minutes, proceed to next-line agent or contact provider if no further options ordered. Patient should allow tablet to dissolve on tongue. Do not remove from blister pack until just before administering. 1121 (Given - Provider: Marisol Fernandez RN) oxyCODONE (Roxicodone) immediate release tablet 10 mg(Linked Group 3) 10 mg, Oral, Every 4 hours PRN, severe pain (7-10), Starting on Thu02/22/24 at 0403, 0258 (Given - Provider: Akilah guzman Oca, RN)0756 (Given - Provider: Marisol Fernandez RN)1412 (Given - Provider: Marisol Fernandez RN)2017 (Given - Provider: Russell Leal RN) 0046 (Given - Provider: Russell Leal RN)0502 (See Alternative - Provider: Russell Leal RN)1037 (Given - Provider: Anita Doty RN)1430 (Given - Provider: Ashlyn Garrett, JES)1958 (Given - Provider: Russell Leal RN) 0002 (Given - Provider: Russell Leal RN - Comment: Verified by Adrianna Dave RN / Scanner not working)0422 (Given - Provider: Russell Leal RN)0906 (Given - Provider: Ashlyn Garrett RN) oxyCODONE (Roxicodone) immediate release tablet 5 mg(Linked Group 3) 5 mg, Oral, Every 4 hours PRN, moderate pain (4-6), Starting on Thu02/22/24 at 0403, 0258 (See Alternative - Provider: Akilah guzman Oca, RN)0756 (See Alternative - Provider: Marisol Fernandez, RN)1412 (See Alternative - Provider: Marisol Fernandez, RN)2017 (See Alternative - Provider: Russell Leal, JES) 0046 (See Alternative - Provider: Russell Leal, JES)0502 (Given - Provider: Russell Leal, JES)1037 (See Alternative - Provider: Anita Doty RN)1430 (See Alternative - Provider: Ashlyn Garrett, JES)1958 (See Alternative - Provider: Russell Leal, JES) 0002 (See Alternative - Provider: Russell Leal, JES)0422 (See Alternative - Provider: Russell Leal RN)0906 (See Alternative - Provider: Ashlyn Garrett, JES) simethicone (Mylicon) chewable tablet 80 mg 80 mg, Oral, Every 6 hours PRN, flatulence, cramping, Starting on Thu02/22/24 at 0403, sodium chloride 0.9 % infusion 5-250 mL/hr, IntraVENous, PRN, if patient receiving piggyback infusions and maintenance fluids are not ordered OR KVO fluids to protect IV site / prevent frequent line interruptions/ long duration, Starting on Thu02/22/24 at 0403, , For piggyback infusion, administer at same rate as piggyback for a total of 25 mL. Enter 25 mL into dose field and piggyback rate into rate field of order. If piggyback is infusing at a rate less than 100 mL/hr, enter 25 mL into dose field and 100 mL/hr into rate field of order. For KVO fluids, enter rate of 20 mL/hr or less into rate field of order. sodium chloride 0.9% (NS) flush 5-40 mL 5-40 mL, IntraVENous, PRN, line care, After every IV line use, Starting on Thu02/22/24 at 0403, , or Line Patency: Peripheral IV = 5 mL; Midline or Central Line = 10 mL/lumen. If following IV push medication, administer flush at same rate as the IV push. Flush volume is determined by type of infusion therapy being given. For non-viscous solutions use: Peripheral IV = 5 mL Midline or Central Line = 10 mL/lumen For viscous solutions (i.e. blood components, parenteral nutrition, contrast media, or after obtaining blood sample) use: Peripheral IV = 10 mL Midline or Central Line = 20 mL/lumen 0023 (Given - Provider: Akilah guzman Oca, RN)0610 (Given - Provider: Akilah guzman Oca, RN) Linked Groups Order Group 1: HYDROmorphone (Dilaudid) injection 0.25 mgJump to med 0.25 mg, IntraVENous, Every 3 hours PRN, moderate pain (4-6), Starting on Thu02/22/24 at 0403, , If oral and IV narcotics ordered, use oral first and only use IV if oral is ineffective or cannot take oral. Do Not give oral and IV within 1 hour of each other unless specifically ordered. Or HYDROmorphone (Dilaudid) injection 0.5 mgJump to med 0.5 mg, IntraVENous, Every 3 hours PRN, severe pain (7-10), Starting on Thu02/22/24 at 0403, , If oral and IV narcotics ordered, use oral first and only use IV if oral is ineffective or cannot take oral. Do Not give oral and IV within 1 hour of each other unless specifically ordered. Group 2: ondansetron ODT (Zofran-ODT) disintegrating tablet 4 mgJump to med 4 mg, Oral, Every 8 hours PRN, nausea, vomiting, Starting on Thu02/22/24 at 0403, , 1st Line. If inadequate response within 60 minutes, proceed to next- line agent or contact provider if no further options ordered. Patient should allow tablet to dissolve on tongue. Do not remove from blister pack until just before administering. Or ondansetron (Zofran) injection 4 mgJump to med 4 mg, IntraVENous, Every 6 hours PRN, nausea, vomiting, Starting on Thu02/22/24 at 0403, , 1st Line. Give IV if patient is unable to take orally. If inadequate response within 60 minutes, proceed to next-line agent or contact provider if no further options ordered. Group 3: oxyCODONE (Roxicodone) immediate release tablet 5 mgJump to med 5 mg, Oral, Every 4 hours PRN, moderate pain (4-6), Starting on Thu02/22/24 at 0403, Or oxyCODONE (Roxicodone) immediate release tablet 10 mgJump to med 10 mg, Oral, Every 4 hours PRN, severe pain (7-10), Starting on Thu02/22/24 at 0403, FOR RECORDS PERTAINING TO PATIENTS WHO ARE OR HAVE BEEN ENROLLED IN A CHEMICAL DEPENDENCY/SUBSTANCEABUSE PROGRAM, SOME INFORMATION MAY BE OMITTED. This clinical summary was aggregated from multiple sources. Caution should be exercised in using it in the provision of clinical care. This summary normalizes information from multiple sources, and as a consequence, information in this document may materially change the coding, format and clinical context of patient data. In addition, data may be omitted in some cases. CLINICAL DECISIONS SHOULD BE BASED ON THE PRIMARY CLINICAL RECORDS. [facility] [employer] [facility]. provides no warranty or guarantee of the accuracy or completeness of information in this document.
== END 2025-06-07 20:33 | disposition left against medical advice (07) ==
LOC: ED 20:35
DX: Z53.21 Procedure and treatment not carried out due to patient leaving prior to being seen by health care provider (principal)

== ENCOUNTER 2025-06-16 10:19 | Emergency (ER) | payer MEDICAID, SELFPAY ==
[2025-06-16 10:19] VITALS: BP 119/97; PULSE 127; RESP 18; TEMP 36.7; O2SAT 97; BMI 25.2
[2025-06-16 10:46] LABS: Color, Urine Yellow (Yellow); Glucose, Dipstick Normal (Normal); Ketone-Dipstick Negative (Negative); Leukocyte Esterase-Dipstick 500 /ul (Negative); Nitrite-Dipstick Negative (Negative); Occult Blood-Urine 250 /ul (Negative); Protein-Dipstick 30 mg/dl (Negative); Specific Gravity, Urine 1.020 (1.002-1.030); Urine Bilirubin Dipstick Negative (Negative)
[2025-06-16 10:52] LABS: Mucous, Urine 2+ /hpf (<or=2+); Squamous Epithelial Cells - UA 10-25 SEEN /hpf (5-10)
[2025-06-16 10:53] LABS: Red Blood Cells-Urine 0-5 SEEN /hpf (0-5)
[2025-06-16 10:58] LABS: Hematocrit 41.1 % (37-47); Hemoglobin 13.4 g/dL (12.0-15.0); Immature Granulocytes Count 0.020 X10^3/uL (0.0-0.0); Mean Corp Hgb Conc 32.6 g/dL (32-36); Mean Corpuscular Volume 84.4 fL (81-99); Mean Platelet Vol. 11.1 fl (6.2-12.0); NRBC Flagged by Analyzer 0 % (0-5); Platelet Count 217 K/mm3 (150-450); RBC Distribution Width CV 14.4 % (11.6-14.6); RBC Distribution Width SD 44.1 fl (35.1-43.9); Red Blood Count 4.87 M/mm3 (4.2-5.4); White Blood Count 7.3 K/mm3 (4.4-11.0)
[2025-06-16 11:00] LABS: SITE Not entered; VBG BASE EXCESS -3 mmol/L (-1.0-3.5); VBG PO2 39 mmHg (25-40); VBG SO2 74 % (50-70); VBG TCO2 23 mmol/L (23-33)
[2025-06-16] MEDS: 0.9% Normal Saline (1000mL) 1,000 ML 1000 ML IV (11:10)
[2025-06-16] MEDS: Famotidine 200 MG/20 ML MDV 20 MG in 0.9% Normal Saline (Pres. free 8 ML 300 MG IV (11:10)
[2025-06-16 11:19] VITALS: PULSE 87; RESP 16; O2SAT 100
[2025-06-16 11:29] LABS: BETA-HYDROXYBUTYRATE 0.1 mmol/L (0.0-0.3)
[2025-06-16 11:30] LABS: AST(SGOT) 14 U/L (<=31); Alanine Aminotransfer ALT/SGPT 9 U/L (<=34); Albumin, Serum 4.0 g/dL (3.5-5.0); Alkaline Phosphatase 67 U/L (35-104); Anion Gap 12 (5-15); BUN 5 mg/dL (4-19); BUN/Creat Ratio 10.6 RATIO (10-20); Calcium,Total 9.0 mg/dL (7.6-11.0); Carbon Dioxide 20.9 mmol/L (21.0-32.0); Chloride 103 mmol/L (98-108); Estimated Creatinine Clearance 195.37 ml/min (50-250); Globulin 3.6 g/dL (2.2-4.2); Glucose 73 mg/dL (70-99); Lipase 24 U/L (13-75); Potassium 3.4 mmol/L (3.3-5.1)
[2025-06-16 12:00] VITALS: BP 118/79; PULSE 91; RESP 19; O2SAT 100
[2025-06-16 13:00] VITALS: PULSE 81; RESP 17; O2SAT 98
[2025-06-16 13:32] VITALS: BP 118/79; PULSE 81; RESP 17; TEMP 36.7; O2SAT 98
--- NOTE | 2025-06-16 16:17 | EX.ED.DYSGE1 ---
HPI History of Present Illness Chief Complaint: General Illness Narrative Narrative: Pt is a 19-year-old female who is presenting to the ER today with chief complaint of nausea and vomiting for the past several days. Patient is approximately 13 weeks . Patient is type I diabetic. Patient checked her urine at home, there is small to medium ketones in her urine. Patient is concerned about DKA. Patient has no screed person, no PCP. Patient's OB takes care of her diabetes as well. Patient has no urinary frequency urgency or burning. Patient has no constipation, mild diarrhea. Patient is taking vitamins. Patient is a , this is her fifth . No headache or neck pain. No chest pain or shortness of breath. No other acute complaints. Patient only had DKA 1 time when she is initially diagnosed with diabetes 2 years ago. REVIEW OF SYSTEMS: Unless otherwise stated in this report the patient's positive and negative responses for review of systems for constitutional, eyes, ENT, cardiovascular, respiratory, gastrointestinal, neurological, , musculoskeletal, and integument systems and related systems to the presenting problem are either stated in the history of present illness or were not pertinent or were negative for the symptoms and/or complaints related to the presenting medical problem. Nurse's notes and vital signs reviewed. The patient is not hypoxic. Vital signs reviewed and patient is not hypoxic. General: The patient appears well and in no apparent distress. Patient is resting comfortably on cart. Not toxic, lethargic, or listless. Skin: Warm, dry, no pallor noted. There is no rash noted. Head: Normocephalic, atraumatic Eye: Normal conjunctiva, no drainage, EOMI. PERRL. Ears, Nose, Mouth, and Throat: oral mucosa is moist. Nares patent. Mouth without vesicles. Cardiovascular: Regular Rate and Rhythm, no murmurs, gallops, or rubs Respiratory: Patient is in no distress, no accessory muscle use, lungs are clear to auscultation, no wheezing, rales or rhonchi Back: non-tender, no CVA tenderness bilaterally to percussion. NO CTLS midline or paraspinal tenderness to palpation. GI: Soft, no tenderness to palpation, no masses appreciated. No rebound, guarding, or rigidity noted. Musculoskeletal: The patient has full range of motion of all extremities and joints with no difficulty. Patient has no motor, no sensory deficits. Neurological: A&O x4, normal speech, no focal neurological deficits. Psychiatric: Cooperative [facility] Medical History Normal esophagogastroduodenoscopy (EGD) Kidney stone delivery affecting POTS (postural orthostatic tachycardia syndrome) Type 1 diabetes mellitus Anxiety Home Medications ?Medication ?Instructions ?Recorded ?Last Taken ?Type insulin lispro 100 unit/mL 0 - 50 unit subcut DAILY 12/09/23 Unknown History subcutaneous pen insulin lispro 100 unit/mL 0 - 67 unit subcut UD 12/09/23 Unknown History subcutaneous solution (Humalog U-100 Insulin) insulin pump cart,automated,BT 01/28/24 Unknown History (Omnipod 5 G6 Pods (Gen 5) subcutaneous cartridge) omeprazole 40 mg capsule,delayed 40 mg PO DAILY #30 caps 07/03/24 Unknown Rx release aspirin 81 mg tablet,delayed 162 mg PO DAILY 06/07/25 Unknown History release famotidine 20 mg tablet 20 mg PO BID 06/07/25 Unknown History cephalexin 500 mg capsule 500 mg PO Q12 #14 CAPSULES 06/16/25 Unknown Rx ondansetron 4 mg disintegrating 4 mg PO Q8H PRN PRN Nausea #10 tabs 06/16/25 Unknown Rx tablet promethazine 25 mg rectal 25 mg RECTAL Q6H PRN PRN Nausea ##6 06/16/25 Unknown Rx suppository (Promethegan) Allergy/AdvReac Type Severity Reaction Status Date / Time ketorolac (From Toradol) Allergy Mild Hives Verified 06/16/25 10:22 Social History household members: family and children housing: house current occupational status: employed Smoking Status: Current some day smoker tobacco type: e-cigarettes substance use type: does not use EXAM Physical Exam Const Vital Signs: 06/16/25 10:19 06/16/25 10:33 06/16/25 11:19 Temperature 98.1 F Temperature Source Oral Pulse Rate 127 H 87 Respiratory Rate 18 16 Respiratory Effort Normal Respiratory Pattern Normal Blood Pressure 119/97 H Blood Pressure Mean 104 Pulse Ox 97 100 Oxygen Delivery Method Room Air Room Air 06/16/25 12:00 06/16/25 13:00 06/16/25 13:32 Temperature 98.1 F Temperature Source Pulse Rate 91 81 81 Respiratory Rate 19 H 17 17 Respiratory Effort Respiratory Pattern Blood Pressure 118/79 118/79 Blood Pressure Mean 92 92 Pulse Ox 100 98 98 Oxygen Delivery Method Room Air Room Air MDM MDM MDM Narrative Medical decision making narrative: Patient seen and examined: IV, fluids, nausea medication, urine, labs, rule out DKA Differential diagnosis includes but is not limited to: Gastroenteritis, nausea, vomiting, diarrhea, DKA, electrolyte abnormality, dehydration, , UTI Relevant laboratory interpretation: White blood cell count normal, 7.3. Venous blood gas 7.40, CO2 on metabolic panel 20 patient has signs of possible UTI, there is contamination with. Squamous cells as well. Reevaluation: Patient tolerating ice chips after IV fluids and medication no difficulty. Social barriers to healthcare: There are no food insecurities, there is no issue with transportation, there are no insurance barriers Disposition: Patient has no signs of DKA. Patient was sent home with prescription for Zofran and Phenergan suppositories. 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 Patient's urine is contaminated, but secondary to we will place patient on a short prescription of antibiotics. Urine culture pending. Lab Data Labs: Laboratory Results - last 24 hr 06/16/25 06/16/25 06/16/25 10:29 10:40 10:49 WBC 7.3 RBC 4.87 Hgb 13.4 Hct 41.1 MCV 84.4 MCH 27.5 MCHC 32.6 RDW Std Deviation 44.1 H RDW Coeff of Elizabeth 14.4 Plt Count 217 MPV 11.1 Immature Gran % (Auto) 0.300 Neut % (Auto) 79.1 H Lymph % (Auto) 12.4 L [place] % (Auto) 7.3 Eos % (Auto) 0.8 Baso % (Auto) 0.1 Absolute Neuts (auto) 5.8 Absolute Lymphs (auto) 0.91 Nucleated RBC % 0 Sodium 135 Potassium 3.4 Chloride 103 Carbon Dioxide 20.9 L Anion Gap 12 BUN 5 Creatinine 0.43 L Estim Creat Clear Calc 195.37 Est GFR (MDRD) Non-Af 143 BUN/Creatinine Ratio 10.6 Glucose 73 Lactic Acid 1.0 Calcium 9.0 Total Bilirubin 0.61 AST 14 ALT 9 Alkaline Phosphatase 67 Total Protein 7.6 Albumin 4.0 Globulin 3.6 Albumin/Globulin Ratio 1.1 Lipase 24 b-Hydroxybutyric mmol/L 0.1 Urine Color Yellow Urine Clarity Sl. Cloudy Urine pH 6.0 Ur Specific [place] 1.020 Urine Protein 30 H Urine Glucose (UA) Normal Urine Ketones Negative Urine Occult Blood 250 H Urine Nitrite Negative Urine Bilirubin Negative Urine Urobilinogen Normal Ur Leukocyte Esterase 500 H Urine RBC 0-5 SEEN Urine WBC 10-25 SEEN Ur Squamous Epith Cells 10-25 SEEN Urine Bacteria 0 SEEN Urine Mucus 2+ POC Glucose 86 ABG Data ABG results: ABG 06/16/25 10:56 Specimen Type RENEA Sample Site Not entered VBG pH 7.40 VBG pO2 39 VBG HCO3 22 VBG Total CO2 23 VBG O2 Sat (Calc) 74 H VBG Base Excess -3 L POC Mix VBG pCO2 Pt Tmp 36.1 L O2 Delivery Device Not entered Discharge Plan Triage Chief Complaint: General Illness ED Provider: Freddy Lerma Dx/Rx/DC Orders Clinical Impression: Nausea & vomiting, UTI (urinary tract infection) Instructions: ED , ED Vomiting (Adult), ED UTIs Women Prescriptions: New promethazine [Promethegan] 25 mg suppository 25 mg RECTAL Q6H PRN PRN (Reason: Nausea) Qty: 6 0RF ondansetron 4 mg tablet,disintegrating 4 mg PO Q8H PRN PRN (Reason: Nausea) Qty: 10 0RF cephalexin 500 mg capsule 500 mg PO Q12 Qty: 14 0RF No Action omeprazole 40 mg capsule,delayed release(DR/EC) 40 mg PO DAILY Qty: 30 1RF insulin lispro [Humalog U-100 Insulin] 100 unit/mL solution 0 - 67 unit subcut UD insulin lispro 100 unit/mL insulin pen 0 - 50 unit subcut DAILY (DME) Omnipod 5 G6 Pods (Gen 5) Cartridge subcut Q3D aspirin 81 mg tablet,delayed release (DR/EC) 162 mg PO DAILY famotidine 20 mg tablet 20 mg PO BID Primary Care Provider: Care Physician,No Primary Referrals: Care Physician,No Primary [Primary Care Provider, Medical] Activity Restrictions/Additional Instructions: Follow-up with your UTILITIES AND MAINTENANCE SUPERVISOR for continued care with and helping control with diabetes medication as discussed. Increase fluids at home, Gatorade, Powerade, water; especially if you are not eating. Use Zofran if needed for nausea, use Phenergan suppositories a second agent if needed for nausea and vomiting. Print Language: Yoruba Disposition Disposition: Home, Self Care Discharge Date/Time: 06/16/25 13:37
== END 2025-06-16 13:37 | disposition home or self-care (01) ==
PROVIDERS: Emergency Provider Emergency Medicine; Visit Provider Emergency Medicine
DX: O21.9 Vomiting of pregnancy, unspecified (principal); Z79.4 Long term (current) use of insulin; O23.41 Unspecified infection of urinary tract in pregnancy, first trimester; O24.011 Pre-existing type 1 diabetes mellitus, in pregnancy, first trimester; O99.351 Diseases of the nervous system complicating pregnancy, first trimester; G90.A Postural orthostatic tachycardia syndrome [POTS]; O99.331 Smoking (tobacco) complicating pregnancy, first trimester; F17.290 Nicotine dependence, other tobacco product, uncomplicated; Z3A.13 13 weeks gestation of pregnancy; Z79.82 Long term (current) use of aspirin; Z79.899 Other long term (current) drug therapy
CPT/HCPCS: 80053; 81001; 82010; 82803; 82962; 83605; 83690; 85025; 87086; 87088; 87631; 96361; 96374; 96375; 99284; A4216; J2405